=== PATIENT | female | born 1975 | race Caucasian/White ===

== ENCOUNTER 2023-04-13 01:59 | Emergency (ER) | payer MEDICAID, SELFPAY ==
[2023-04-13 01:59] VITALS: BP 108/74; PULSE 106; RESP 16; TEMP 36.6; O2SAT 95; BMI 34.7
--- NOTE | 2023-04-13 02:01 | ECG_ITS ---
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
[2023-04-13 02:32] LABS: Basophils Percent Auto 0.4 % (0.2-2.0); Eosinophils Absolute Auto 0.1 10^3/uL (0.0-0.7); Eosinophils Percent Auto 1.3 % (0.9-7.0); Hematocrit 36.8 % (36.0-48.0); Hemoglobin 12.6 g/dL (12.0-16.0); Immature Granulocytes Abs Auto 0.02 10^3/uL (0.00-0.03); Immature Granulocytes Pct Auto 0.3 % (0.0-0.5); Lymphocytes Absolute Auto 2.1 10^3/uL (1.2-3.8); Lymphocytes Percent Auto 30.8 % (20.5-60.0); Mean Corpuscular HGB Conc 34.2 g/dL (29.9-35.2); Mean Corpuscular Hemoglobin 33.7 pg (26.7-34.0); Mean Corpuscular Volume 98.4 fL (81.0-99.0); Mean Platelet Volume 10.7 fL (9.5-13.5); Monocytes Absolute Auto 0.6 10^3/uL (0.3-0.8); Monocytes Percent Auto 8.8 % (1.7-12.0); Neutrophils Percent Auto 58.4 % (43.0-75.0); Platelet Count 240 10^3/uL (150-450); Red Blood Count 3.74 10^6/uL (4.20-5.40); Red Cell Distribution Width 11.8 % (11.0-15.0); White Blood Count 6.8 10^3/uL (4.0-11.0)
[2023-04-13 02:36] LABS: Bilirubin Urine NEGATIVE (NEGATIVE); Blood Urine NEGATIVE (NEGATIVE); Color Urine YELLOW (YELLOW); Glucose Urine UA NEGATIVE (NEGATIVE); Ketones Urine TRACE mg/dL (NEGATIVE); Leukocyte Esterase Urine SMALL (NEGATIVE); Nitrite Urine NEGATIVE (NEGATIVE); Protein Urine NEGATIVE (NEG/TRACE); Specific Gravity Urine >=1.030 (1.005-1.025); Urobilinogen Urine 0.2 EU/dL (0.2-1.0)
[2023-04-13 02:41] LABS: Bacteria Urine MODERATE #/HPF (NONE SEEN); Clarity Urine SLIGHTLY CLOUDY (CLEAR); Mucus Urine NONE SEEN (NONE SEEN); RBC Urine 0-2 #/HPF (0-2); Squamous Epithelial Cell Urine FEW #/LPF (NONE/RARE)
[2023-04-13 02:42] LABS: Cast Seen? NONE SEEN #/LPF (NONE SEEN); Crystals Seen? None Seen #/HPF (None Seen); Urine Culture Indicated YES
[2023-04-13 02:45] LABS: Cannabinoid Screen Urine POSITIVE (NEGATIVE)
[2023-04-13 02:46] LABS: Amphetamine Screen Urine NEGATIVE (NEGATIVE); Barbiturates Screen Urine NEGATIVE (NEGATIVE); Benzodiazepines Screen Urine POSITIVE (NEGATIVE); Buprenorphine Screen Urine NEGATIVE (NEGATIVE); Cocaine Screen Urine POSITIVE (NEGATIVE); Methadone Screen Urine NEGATIVE (NEGATIVE); Methamphetamines Screen Urine NEGATIVE (NEGATIVE); Opiate Screen Urine NEGATIVE (NEGATIVE); Oxycodone Screen Urine NEGATIVE (NEGATIVE); Phencyclidine Screen Urine NEGATIVE (NEGATIVE); Tricyclic Antidepressant Urine POSITIVE (NEGATIVE)
[2023-04-13] MEDS: ONDANSETRON 4 MG RAPDIS TABLET SL (02:47)
[2023-04-13] MEDS: IBUPROFEN 600 MG TABLET PO (02:47)
[2023-04-13 02:49] LABS: Acetaminophen <2.0 ug/mL (10.0-30.0); Alanine Aminotransferase 45 U/L (14-59); Albumin Globulin Ratio 1.1; Albumin Level 3.9 g/dL (3.4-5.0); Alkaline Phosphatase 62 U/L (46-116); Anion Gap 13.4; Aspartate Amino Transferase 35 U/L (15-37); BUN Creatinine Ratio 12.6; Bilirubin Total 0.6 mg/dL (0.2-1.0); Calcium 8.8 mg/dL (8.5-10.1); Carbon Dioxide 27.1 mmol/L (21.0-32.0); Chloride 103 mmol/L (98-107); Estimated GFR (African America >60 (>=60); Estimated GFR (Non-African Ame 52 (>=60); Globulin 3.4 g/dL; Glucose 162 mg/dL (74-106); Potassium 3.5 mmol/L (3.5-5.1); Salicylate <2.8 mg/dL (<=19.9); Sodium 140 mmol/L (136-145); Total Protein 7.3 g/dL (6.4-8.2)
[2023-04-13 02:59] LABS: Ethanol <3 mg/dL
--- NOTE | 2023-04-13 03:03 | PC.NURSE ---
patient arrives via EMS from her friends home. states she has been feeling suicidal and depressed all day and cut her wrist this morning in an attempt to end her life. was seen at [facility] and had stitches but states they did not offer help with her suicidal ideation and she was discharged. states this evening she still felt suicidal and was expressing this to her friend who suggested she call EMS and request to come to this ER instead. pt states she has psych history with depression, anxiety, ADHD, suicide attempts with most recent last fall, and history of psych hospitalizations. states this morning prior to harming her self she used cocaine and had been clean from drugs for years and was disappointed in herself and that is when she decided to attempt to end her life. states before this morning she had just been having a hard time with life but is vague on any specific triggers. states she just needs some help because she remains suicidal at this time.
[2023-04-13 03:31] LABS: HCG Qualitative Urine* NEGATIVE (NEGATIVE)
--- NOTE | 2023-04-13 03:31 | ED.PSYCH1 ---
HPI - Psych General Chief Complaint: Psychiatric Symptoms Stated Complaint: MENTAL Time Seen by Provider: 04/13/23 02:00 Mode of arrival: ambulance History of Present Illness HPI Narrative: This 47-year-old female with history of anxiety, depression and substance abuse is brought to the emergency department by EMS. The patient admits to suicidal ideation. She states that she has a history of using cocaine in the past but has been clean from any cocaine use for 8 years. She uses cocaine yesterday morning and became very depressed after that and cut her left wrist. She is tearful. She states that she did this because of life . She has attempted suicide in the past with lacerations of her wrist. She was seen at [facility] and evaluated, her wrist was sutured and she was deemed safe for discharge. She requested to come to this hospital by EMS because she did not feel that they address her needs of suicidality. She denies that she has overdosed on any medications. She does take Wellbutrin. She denies any additional complaints at that time but does state that she is nauseated and has a headache. She is tearful but cooperative and forthcoming. She has been admitted psychiatrically in the past. MD complaint: suicidal ideation and feels depressed Related Data Home Medications Medication Instructions Recorded Confirmed amlodipine 2.5 mg tablet 2.5 mg PO DAILY 04/13/23 04/13/23 atorvastatin 10 mg tablet (Lipitor) 30 mg PO DAILY 04/13/23 04/13/23 bupropion HCl 200 mg tablet,12 hr 200 mg PO DAILY 04/13/23 04/13/23 sustained-release clonazepam 1 mg tablet 1 mg PO TID 04/13/23 04/13/23 doxepin 25 mg capsule 25 mg PO DAILY 04/13/23 04/13/23 gabapentin 400 mg capsule 200 mg PO BID 04/13/23 04/13/23 levothyroxine 75 mcg tablet 75 mcg PO DAILY 04/13/23 04/13/23 lisdexamfetamine 30 mg capsule 30 mg PO DAILY 04/13/23 04/13/23 (Vyvanse) mirtazapine 30 mg tablet (Remeron) 30 mg PO DAILY 04/13/23 04/13/23 Allergies Allergy/AdvReac Type Severity Reaction Status Date / Time buspirone [From BuSpar] Allergy Verified 04/13/23 02:03 hydroxyzine [From Vistaril] Allergy Verified 04/13/23 02:03 tramadol Allergy Verified 04/13/23 02:03 SSRIs Allergy Uncoded 04/13/23 02:03 Review of Systems ROS Status of ROS 10 or more systems reviewed and unremarkable except as noted in history and below [facility] Social History Smoking status: Never smoker Exam Narrative Exam Narrative: Nurses note and vital signs reviewed; She is afebrile, mildly tachycardic, she has normal blood pressure, she is not hypoxic with pulse ox of 95 percent on room air General: Nontoxic, tearful female resting comfortably on the stretcher, no respiratory distress, GCS 15 Skin: Warm, dry, no pallor noted. There is no rash noted. Head: Normocephalic, atraumatic Eye: Normal conjunctiva, no drainage, EOMI. PERRL Ears, Nose, Mouth, and Throat: oral mucosa is moist Cardiovascular: Regular Rate and Rhythm Respiratory: Patient is in no distress, no accessory muscle use, lungs are clear to auscultation, no wheezing, rales or rhonchi Back: non-tender, no CVA tenderness bilaterally to percussion. GI: Normal bowel sounds, no tenderness to palpation, no masses appreciated. No rebound, guarding, or rigidity noted. Musculoskeletal: There is a laceration on the left anterior wrist that has been closed with sutures. It is well approximated without any bleeding, drainage or signs of active infection. Neurological: A&O x4, normal speech Psychiatric: Cooperative, Tearful, admits to ongoing suicidal ideation, anxiety and depression Constitutional Vital Signs, click to edit/add: Last Vital Signs Temp 97.9 F 04/13/23 01:59 Pulse 106 H 04/13/23 01:59 Resp 16 04/13/23 01:59 BP 108/74 04/13/23 01:59 Pulse Ox 95 04/13/23 01:59 Course Vital Signs Vital signs: Vital Signs Temperature 97.9 F 04/13/23 01:59 Pulse Rate 106 H 04/13/23 01:59 Respiratory Rate 16 04/13/23 01:59 Blood Pressure 108/74 04/13/23 01:59 Pulse Oximetry 95 04/13/23 01:59 Temperature 97.9 F 04/13/23 01:59 Pulse Rate 106 H 04/13/23 01:59 Respiratory Rate 16 04/13/23 01:59 Blood Pressure 108/74 04/13/23 01:59 Pulse Oximetry 95 04/13/23 01:59 MDM - Psych MDM Narrative Medical decision making narrative: Is 47-year-old female with a history of anxiety and depression who is on Wellbutrin and has a history of substance abuse presents to the emergency department by EMS from her friend's apartment in [place] for evaluation of suicidal ideation. The patient states that she relapsed on cocaine yesterday and was extremely upset with herself and cut her left wrist. She was seen at [facility] and according to their records at that time denied suicidality and was discharged home with a friend. The patient presents to the emergency department stating that she did not feel that her needs were met at [facility] and she is still actively suicidal, depressed and anxious. I did review her chart from her emergency department visit earlier. Her left wrist laceration was closed effectively. There are no other cuts on her body. She denied any overdose attempts. EKG done upon arrival with a sinus tachycardia at 102 beats for minute. She is medicated for headache and nausea with ibuprofen and Zofran. Medical clearance labs for psychiatric admission and including aspirin, Tylenol, alcohol, comprehensive metabolic profile, CBC with differential and urine tox were ordered and are reviewed. Her aspirin, Tylenol and alcohol levels are negative. She has normal CBC with differential. Metabolic profile is normal. She tested positive for TCA, benzos, cocaine and marijuana on her drug tox. She is medically cleared for psychiatric evaluation. She was monitored in the emergency department with suicide precautions with a sitter outside of the room. She remained alert and hemodynamically stable. She spoke to a counselor at [facility] and has agreed to voluntary psychiatric admission. She was accepted for transfer to [address], under the service of Dr Abreu Lab Data Attestation: I reviewed the patient's lab results. ( test was negative. She has a normal CBC with differential, normal chemistries. She does not have a urinary tract infection. Her urine is positive for TCA, benzos, marijuana and cocaine. Aspirin, Tylenol and alcohol are negative) Labs: Lab Results 04/13/23 04/13/23 Range/Units 02:11 02:24 WBC 6.8 (4.0-11.0) 10^3/uL RBC 3.74 L (4.20-5.40) 10^6/uL Hgb 12.6 (12.0-16.0) g/dL Hct 36.8 (36.0-48.0) % MCV 98.4 (81.0-99.0) fL MCH 33.7 (26.7-34.0) pg MCHC 34.2 (29.9-35.2) g/dL RDW 11.8 (11.0-15.0) % Plt Count 240 (150-450) 10^3/uL MPV 10.7 (9.5-13.5) fL Neut % (Auto) 58.4 (43.0-75.0) % Lymph % (Auto) 30.8 (20.5-60.0) % [place] % (Auto) 8.8 (1.7-12.0) % Eos % (Auto) 1.3 (0.9-7.0) % Baso % (Auto) 0.4 (0.2-2.0) % Neut # (Auto) 4.0 (1.4-6.5) 10^3/uL Lymph # (Auto) 2.1 (1.2-3.8) 10^3/uL [place] # (Auto) 0.6 (0.3-0.8) 10^3/uL Eos # (Auto) 0.1 (0.0-0.7) 10^3/uL Baso # (Auto) 0.0 (0.0-0.1) 10^3/uL Abs Immat Gran (auto) 0.02 (0.00-0.03) 10^3/uL Imm/Tot Granulo (auto) 0.3 (0.0-0.5) % Sodium 140 (136-145) mmol/L Potassium 3.5 (3.5-5.1) mmol/L Chloride 103 (98-107) mmol/L Carbon Dioxide 27.1 (21.0-32.0) mmol/L Anion Gap 13.4 BUN 14.0 (7.0-18.0) mg/dL Creatinine 1.11 H (0.55-1.02) mg/dL Est GFR ( Amer) >60 (>=60) Est GFR (Non-Af Amer) 52 L (>=60) BUN/Creatinine Ratio 12.6 Glucose 162 H (74-106) mg/dL Calcium 8.8 (8.5-10.1) mg/dL Total Bilirubin 0.6 (0.2-1.0) mg/dL AST 35 (15-37) U/L ALT 45 (14-59) U/L Alkaline Phosphatase 62 (46-116) U/L Total Protein 7.3 (6.4-8.2) g/dL Albumin 3.9 (3.4-5.0) g/dL Globulin 3.4 g/dL Albumin/Globulin Ratio 1.1 Urine Color Yellow (YELLOW) Urine Clarity Slightly cloudy A (CLEAR) Urine pH 6.0 (5.0-9.0) Ur Specific [place] >=1.030 A (1.005-1.025) Urine Protein Negative (NEG/TRACE) mg/dL Urine Glucose (UA) Negative (NEGATIVE) mg/dL Urine Ketones Trace A (NEGATIVE) mg/dL Urine Occult Blood Negative (NEGATIVE) Urine Nitrite Negative (NEGATIVE) Urine Bilirubin Negative (NEGATIVE) Urine Urobilinogen 0.2 (0.2-1.0) EU/dL Ur Leukocyte Esterase Small A (NEGATIVE) Urine RBC 0-2 (0-2) #/HPF Urine WBC 5-10 A (NONE SEEN) #/HPF Ur Squamous Epith Cells Few A (NONE/RARE) #/LPF Urine Crystals None seen (None Seen) #/HPF Urine Bacteria Moderate A (NONE SEEN) #/HPF Urine Casts None seen (NONE SEEN) #/LPF Urine Mucus None seen (NONE SEEN) Ur Culture Indicated? Yes Salicylates <2.8 (<=19.9) mg/dL Urine Opiates Screen Negative (NEGATIVE) Ur Buprenorphine Scrn Negative (NEGATIVE) Ur Oxycodone Screen Negative (NEGATIVE) Urine Methadone Screen Negative (NEGATIVE) Ur Propoxyphene Screen Negative (NEGATIVE) Acetaminophen <2.0 L (10.0-30.0) ug/mL Ur Barbiturates Screen Negative (NEGATIVE) U Tricyclic Antidepress Positive A (NEGATIVE) Ur Phencyclidine Scrn Negative (NEGATIVE) Ur Amphetamines Screen Negative (NEGATIVE) U Methamphetamines Scrn Negative (NEGATIVE) U Benzodiazepines Scrn Positive A (NEGATIVE) Urine Cocaine Screen Positive A (NEGATIVE) U Cannabinoids Screen Positive A (NEGATIVE) Ethanol Quant <3 mg/dL ECG Data Attestation: I personally reviewed and interpreted this ECG as follows: (Sinus tachycardia at 102bpm, normal axis, normal intervals, no acute ST segment elevation or T-wave inversion) Discharge Plan Discharge Chief Complaint: Psychiatric Symptoms Clinical Impression: Substance abuse, Suicidal ideation, Depression Patient Disposition: [facility]
[2023-04-13 05:27] VITALS: BP 110/70; PULSE 80; RESP 12; O2SAT 96
== END 2023-04-13 05:52 ==
PROVIDERS: Emergency Provider Emergency Medicine
DX: F32.A Depression, unspecified (principal); R45.851 Suicidal ideations; R11.0 Nausea; R51.9 Headache, unspecified; F14.90 Cocaine use, unspecified, uncomplicated; F41.9 Anxiety disorder, unspecified
CPT/HCPCS: 36415; 80053; 80179; 80307; 80320; 80329; 81001; 84703; 85025; 87086; 93005; 99285

== ENCOUNTER 2023-04-22 22:36 | Emergency (ER) | payer MEDICAID, SELFPAY ==
[2023-04-22 22:37] VITALS: BP 100/60; PULSE 102; RESP 16; TEMP 36.8; O2SAT 97; BMI 34.8
--- NOTE | 2023-04-22 22:44 | ED_ITS ---
HPI - General Adult General Chief complaint: Psychiatric Symptoms Stated complaint: SUICIDAL Time Seen by Provider: 04/22/23 22:44 History of Present Illness HPI narrative: She presents to emergency department complaining of suicidal ideation. She does brought in via EMS. Patient states she was discharged from [facility] on the 16th of this month, she feels like to let her out too soon. She is thinking that she would either cut herself or overdose on medications.Asians had previous hospitalizations. She's had previous suicide attempts. She is also complaining of left wrist pain. She had a self-inflicted laceration to the left wrist from the 12th which was sutured. Sutures need to be removed in 2 days. Patient states she's noted erythema, and swelling to the area. She took Motrin earlier without any relief. Patient denies any fever, or paresthesias. Related Data Home Medications Medication Instructions Recorded Confirmed amlodipine 2.5 mg tablet 2.5 mg PO DAILY 04/13/23 04/13/23 atorvastatin 10 mg tablet (Lipitor) 30 mg PO DAILY 04/13/23 04/13/23 bupropion HCl 200 mg tablet,12 hr 200 mg PO DAILY 04/13/23 04/13/23 sustained-release clonazepam 1 mg tablet 1 mg PO TID 04/13/23 04/13/23 doxepin 25 mg capsule 25 mg PO DAILY 04/13/23 04/13/23 gabapentin 400 mg capsule 200 mg PO BID 04/13/23 04/13/23 levothyroxine 75 mcg tablet 75 mcg PO DAILY 04/13/23 04/13/23 lisdexamfetamine 30 mg capsule 30 mg PO DAILY 04/13/23 04/13/23 (Vyvanse) mirtazapine 30 mg tablet (Remeron) 30 mg PO DAILY 04/13/23 04/13/23 Allergies Allergy/AdvReac Type Severity Reaction Status Date / Time buspirone [From BuSpar] Allergy Verified 04/13/23 02:03 hydroxyzine [From Vistaril] Allergy Verified 04/13/23 02:03 metronidazole [From Flagyl] Allergy Verified 04/23/23 02:42 tramadol Allergy Verified 04/13/23 02:03 SSRIs Allergy Uncoded 04/13/23 02:03 Review of Systems ROS Status of ROS 10 or more systems reviewed and unremarkable except as noted in history and below [facility] Social History Smoking status: Never smoker Exam Narrative Exam Narrative: Nurses notes and vital signs reviewed and patient is not hypoxic. General: Nontoxic, Well-appearing and in no apparent distress. Skin: Warm, dry, no pallor noted. No Rash Head: Normocephalic, atraumatic. Neck: Supple, non-tender. Eye: Pupils are equal, round and EOMI. No scleral icterus. Ears, Nose, Mouth, and Throat: TM clear, no posterior oropharynx erythema or nasal mucosal hypertrophy, uvula is mid-line Oral mucosa is moist Cardiovascular: Regular Rate and Rhythm without murmur, gallop or rub. Respiratory: No accessory muscle use or respiratory distress. Lungs are clear to auscultation, no wheezing, rales or rhonchi Chest Wall: no tenderness Back: No midline thoracic or lumbar vertebral tenderness. No CVA tenderness Musculoskeletal: Left ventral wrist with a 5 cm laceration with sutures in place. There is surrounding erythema and induration without any fluctuance. The erythema is 1 cm across. There is no dehiscence noted. Full ROM, no calf or popliteal tenderness, no lower extremity edema/swelling GI: Abdomen is soft, non-distended. Normal bowel sounds. No masses appreciated. No tenderness to palpation. No rebound, guarding, or rigidity noted. Neurological: A&O x4. No cranial nerve dysfunction observed. No truncal ataxia. Moves all extremities. Sensation intact. Psychiatric: Cooperative and interactive. Flat affect, active suicidal ideation. Constitutional Vital Signs, click to edit/add: Last Vital Signs Temp 98.3 F 04/22/23 22:37 Pulse 102 H 04/22/23 22:37 Resp 16 04/22/23 22:37 BP 93/50 L 04/23/23 01:47 Pulse Ox 97 04/22/23 22:37 O2 Del Method Room Air 04/22/23 22:37 Course Vital Signs Vital signs: Vital Signs Temperature 98.3 F 04/22/23 22:37 Pulse Rate 102 H 04/22/23 22:37 Respiratory Rate 16 04/22/23 22:37 Blood Pressure 100/60 04/22/23 22:37 Pulse Oximetry 97 04/22/23 22:37 Oxygen Delivery Method Room Air 04/22/23 22:37 Temperature 98.3 F 04/22/23 22:37 Pulse Rate 102 H 04/22/23 22:37 Respiratory Rate 16 04/22/23 22:37 Blood Pressure 93/50 L 04/23/23 01:47 Pulse Oximetry 97 04/22/23 22:37 Oxygen Delivery Method Room Air 04/22/23 22:37 Medical Decision Making MDM Narrative Medical decision making narrative: Patient is nontoxic, no signs of sepsis. She is medically clear for psychiatric evaluation and treatment. Patient was given 1 g of Rocephin IM. She was given Toradol for pain. Wound was cleansed and mupirocin was applied. She was given 2 tablets of Bactrim DS. Patient is given a prescription for Bactrim, Keflex and she is to continue the mupirocin 3 times a day with wound care. Follow up with primary care doctor. Sutures need to be removed on 04/24/23. Patient was accepted to [address] care [address] Cisneros. Patient was given 2 tablets of Bactrim DS in the emergency department she tolerated them well and did not have any issues with ALLERGIES. After the patient was handed the prescription she stated that she was ALLERGIC to Bactrim. Patient is advised she was given 2 tablets and she stated only did not make me feel dizzy like he normally does. She's never had an actual ALLERGIC reaction to it. Lab Data Labs: Lab Results 04/22/23 04/22/23 Range/Units 23:00 23:10 WBC 4.8 (4.0-11.0) 10^3/uL RBC 3.64 L (4.20-5.40) 10^6/uL Hgb 12.0 (12.0-16.0) g/dL Hct 35.2 L (36.0-48.0) % MCV 96.7 (81.0-99.0) fL MCH 33.0 (26.7-34.0) pg MCHC 34.1 (29.9-35.2) g/dL RDW 11.3 (11.0-15.0) % Plt Count 256 (150-450) 10^3/uL MPV 10.7 (9.5-13.5) fL Neut % (Auto) 60.2 (43.0-75.0) % Lymph % (Auto) 27.9 (20.5-60.0) % [place] % (Auto) 8.0 (1.7-12.0) % Eos % (Auto) 2.9 (0.9-7.0) % Baso % (Auto) 0.4 (0.2-2.0) % Neut # (Auto) 2.9 (1.4-6.5) 10^3/uL Lymph # (Auto) 1.3 (1.2-3.8) 10^3/uL [place] # (Auto) 0.4 (0.3-0.8) 10^3/uL Eos # (Auto) 0.1 (0.0-0.7) 10^3/uL Baso # (Auto) 0.0 (0.0-0.1) 10^3/uL Abs Immat Gran (auto) 0.03 (0.00-0.03) 10^3/uL Imm/Tot Granulo (auto) 0.6 H (0.0-0.5) % Sodium 142 (136-145) mmol/L Potassium 3.5 (3.5-5.1) mmol/L Chloride 103 (98-107) mmol/L Carbon Dioxide 30.2 (21.0-32.0) mmol/L Anion Gap 12.3 BUN 9.0 (7.0-18.0) mg/dL Creatinine 0.98 (0.55-1.02) mg/dL Est GFR ( Amer) >60 (>=60) Est GFR (Non-Af Amer) >60 (>=60) BUN/Creatinine Ratio 9.2 Glucose 131 H (74-106) mg/dL Calcium 8.2 L (8.5-10.1) mg/dL Total Bilirubin 0.2 (0.2-1.0) mg/dL AST 25 (15-37) U/L ALT 28 (14-59) U/L Alkaline Phosphatase 63 (46-116) U/L Total Protein 7.0 (6.4-8.2) g/dL Albumin 3.4 (3.4-5.0) g/dL Globulin 3.6 g/dL Albumin/Globulin Ratio 0.9 Urine Color Yellow (YELLOW) Urine Clarity Clear (CLEAR) Urine pH 7.0 (5.0-9.0) Ur Specific [place] 1.015 (1.005-1.025) Urine Protein Trace (NEG/TRACE) mg/dL Urine Glucose (UA) Negative (NEGATIVE) mg/dL Urine Ketones 15 A (NEGATIVE) mg/dL Urine Occult Blood Negative (NEGATIVE) Urine Nitrite Negative (NEGATIVE) Urine Bilirubin Negative (NEGATIVE) Urine Urobilinogen 2.0 A (0.2-1.0) EU/dL Ur Leukocyte Esterase Trace A (NEGATIVE) Urine RBC 0-2 (0-2) #/HPF Urine WBC 2-5 A (NONE SEEN) #/HPF Ur Squamous Epith Cells Moderate A (NONE/RARE) #/LPF Urine Crystals None seen (None Seen) #/HPF Urine Bacteria Trace A (NONE SEEN) #/HPF Urine Casts None seen (NONE SEEN) #/LPF Urine Mucus Small A (NONE SEEN) Ur Culture Indicated? No Salicylates <2.8 (<=19.9) mg/dL Urine Opiates Screen Negative (NEGATIVE) Ur Buprenorphine Scrn Negative (NEGATIVE) Ur Oxycodone Screen Negative (NEGATIVE) Urine Methadone Screen Negative (NEGATIVE) Ur Propoxyphene Screen Negative (NEGATIVE) Acetaminophen <2.0 L (10.0-30.0) ug/mL Ur Barbiturates Screen Negative (NEGATIVE) U Tricyclic Antidepress Positive A (NEGATIVE) Ur Phencyclidine Scrn Negative (NEGATIVE) Ur Amphetamines Screen Negative (NEGATIVE) U Methamphetamines Scrn Negative (NEGATIVE) U Benzodiazepines Scrn Negative (NEGATIVE) Urine Cocaine Screen Positive A (NEGATIVE) U Cannabinoids Screen Positive A (NEGATIVE) Ethanol Quant <3 mg/dL Discharge Plan Discharge Chief Complaint: Psychiatric Symptoms Clinical Impression: Wound infection, Substance abuse, Suicidal ideation, Depression Patient Disposition: [facility] Time of Disposition Decision: 02:00 Discharge Location: [facility] Discharge location: dr cisneros Condition: Good Mode of Transportation: Mental Health Car Discharge Date/Time: 04/23/23 02:35
--- NOTE | 2023-04-22 23:14 | ECG_ITS ---
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
--- NOTE | 2023-04-22 23:27 | PC.NURSE ---
Hotline called after patient was admitted into ER. Talked with Rashad. She states it would be approx. an hour before someone could get to her.
[2023-04-22 23:28] LABS: Basophils Percent Auto 0.4 % (0.2-2.0); Eosinophils Absolute Auto 0.1 10^3/uL (0.0-0.7); Eosinophils Percent Auto 2.9 % (0.9-7.0); Hematocrit 35.2 % (36.0-48.0); Immature Granulocytes Abs Auto 0.03 10^3/uL (0.00-0.03); Immature Granulocytes Pct Auto 0.6 % (0.0-0.5); Lymphocytes Absolute Auto 1.3 10^3/uL (1.2-3.8); Lymphocytes Percent Auto 27.9 % (20.5-60.0); Mean Corpuscular HGB Conc 34.1 g/dL (29.9-35.2); Mean Corpuscular Volume 96.7 fL (81.0-99.0); Mean Platelet Volume 10.7 fL (9.5-13.5); Monocytes Absolute Auto 0.4 10^3/uL (0.3-0.8); Neutrophils Absolute Auto 2.9 10^3/uL (1.4-6.5); Neutrophils Percent Auto 60.2 % (43.0-75.0); Platelet Count 256 10^3/uL (150-450); Red Blood Count 3.64 10^6/uL (4.20-5.40); Red Cell Distribution Width 11.3 % (11.0-15.0); White Blood Count 4.8 10^3/uL (4.0-11.0)
[2023-04-22 23:29] LABS: Bilirubin Urine NEGATIVE (NEGATIVE); Blood Urine NEGATIVE (NEGATIVE); Clarity Urine CLEAR (CLEAR); Color Urine YELLOW (YELLOW); Glucose Urine UA NEGATIVE (NEGATIVE); Ketones Urine 15 mg/dL (NEGATIVE); Leukocyte Esterase Urine TRACE (NEGATIVE); Nitrite Urine NEGATIVE (NEGATIVE); Protein Urine TRACE mg/dL (NEG/TRACE); Specific Gravity Urine 1.015 (1.005-1.025)
--- NOTE | 2023-04-22 23:29 | PC.NURSE ---
patient called ems for suicidal ideation. patient states she was admitted to [address] [place] [address] on april 13 after cutting her wrist in attempt to end life. pedro states she has no support system besides a couple of friends in [place]. she does not drive and cannot get around on her own. patient states she has been feeling more and more depressed lately, prior to her suicidal attempt on the patient was off her antidepressants for approx 1 week. patient states since going to [address] [place] [address] she has been taking her medicaitons at prescribed. states physician increased welbutrin to 450mg from 200mg daily.patient states she was feeling better at the time of release and shortly after her suicidal thoughts have returned. patient has sutures still intact in left wrist. wound appears to be infected. sutures are not all visible due to swelling of surrounding area. yellow drainage and redness can be seen. patient states she has been keeping sutures clean and dry.
[2023-04-22 23:30] LABS: Urine Microscopic Indicated YES
[2023-04-22 23:35] LABS: Bacteria Urine TRACE #/HPF (NONE SEEN); Cast Seen? NONE SEEN #/LPF (NONE SEEN); Crystals Seen? None Seen #/HPF (None Seen); Mucus Urine SMALL (NONE SEEN); RBC Urine 0-2 #/HPF (0-2); Squamous Epithelial Cell Urine MODERATE #/LPF (NONE/RARE); Urine Culture Indicated NO
[2023-04-22 23:40] LABS: Amphetamine Screen Urine NEGATIVE (NEGATIVE); Barbiturates Screen Urine NEGATIVE (NEGATIVE); Benzodiazepines Screen Urine NEGATIVE (NEGATIVE); Buprenorphine Screen Urine NEGATIVE (NEGATIVE); Cannabinoid Screen Urine POSITIVE (NEGATIVE); Cocaine Screen Urine POSITIVE (NEGATIVE); Methadone Screen Urine NEGATIVE (NEGATIVE); Methamphetamines Screen Urine NEGATIVE (NEGATIVE); Opiate Screen Urine NEGATIVE (NEGATIVE); Oxycodone Screen Urine NEGATIVE (NEGATIVE); Phencyclidine Screen Urine NEGATIVE (NEGATIVE); Tricyclic Antidepressant Urine POSITIVE (NEGATIVE)
[2023-04-22 23:43] LABS: Alanine Aminotransferase 28 U/L (14-59); Albumin Globulin Ratio 0.9; Albumin Level 3.4 g/dL (3.4-5.0); Alkaline Phosphatase 63 U/L (46-116); Anion Gap 12.3; Aspartate Amino Transferase 25 U/L (15-37); BUN Creatinine Ratio 9.2; Bilirubin Total 0.2 mg/dL (0.2-1.0); Calcium 8.2 mg/dL (8.5-10.1); Carbon Dioxide 30.2 mmol/L (21.0-32.0); Chloride 103 mmol/L (98-107); Estimated GFR (African America >60 (>=60); Estimated GFR (Non-African Ame >60 (>=60); Globulin 3.6 g/dL; Glucose 131 mg/dL (74-106); Potassium 3.5 mmol/L (3.5-5.1); Salicylate <2.8 mg/dL (<=19.9); Sodium 142 mmol/L (136-145)
[2023-04-22 23:46] LABS: Acetaminophen <2.0 ug/mL (10.0-30.0); Ethanol <3 mg/dL
[2023-04-22 23:48] VITALS: BP 101/66
[2023-04-22] MEDS: SULFAMETHOXAZOLE/TRIMETHOPRIM 800-160 MG TABLET 2 TAB PO (23:49)
[2023-04-23] MEDS: KETOROLAC TROMETHAMINE 60 MG/2 ML VIAL IM
--- NOTE | 2023-04-23 00:07 | PC.NURSE ---
sitter at bedside. patient eating burger and chips. denies needs at this time. patient was medicated with antibiotic and pain medication for wrist wound.patient is calm and cooperative
[2023-04-23] MEDS: MUPIROCIN 2% OINTMENT 22 GRAM TUBE 22 APPLIC (00:32)
[2023-04-23 00:53] VITALS: BP 92/55
[2023-04-23 01:47] VITALS: BP 93/50
== END 2023-04-23 02:35 ==
PROVIDERS: Emergency Provider Emergency Medicine
DX: R45.851 Suicidal ideations (principal); F32.A Depression, unspecified; F19.10 Other psychoactive substance abuse, uncomplicated; L08.9 Local infection of the skin and subcutaneous tissue, unspecified; Z79.899 Other long term (current) drug therapy; Z79.890 Hormone replacement therapy
CPT/HCPCS: 36415; 80053; 80179; 80307; 80320; 80329; 81003; 81015; 85025; 93005; 96372; 96374; 99285

== ENCOUNTER 2023-08-23 17:48 | Emergency (ER) | payer MEDICAID, SELFPAY ==
--- NOTE | 2023-08-23 17:50 | ECG_ITS ---
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
[2023-08-23 17:55] VITALS: BP 127/84; PULSE 89; RESP 20; TEMP 36.6; O2SAT 97; BMI 40.2
[2023-08-23 18:13] LABS: Basophils Percent Auto 0.7 % (0.2-2.0); Eosinophils Absolute Auto 0.2 10^3/uL (0.0-0.7); Eosinophils Percent Auto 3.2 % (0.9-7.0); Hematocrit 37.1 % (36.0-48.0); Hemoglobin 12.3 g/dL (12.0-16.0); Immature Granulocytes Abs Auto 0.03 10^3/uL (0.00-0.03); Immature Granulocytes Pct Auto 0.5 % (0.0-0.5); Lymphocytes Absolute Auto 1.5 10^3/uL (1.2-3.8); Lymphocytes Percent Auto 25.8 % (20.5-60.0); Mean Corpuscular HGB Conc 33.2 g/dL (29.9-35.2); Mean Corpuscular Volume 96.6 fL (81.0-99.0); Mean Platelet Volume 10.8 fL (9.5-13.5); Monocytes Absolute Auto 0.5 10^3/uL (0.3-0.8); Neutrophils Absolute Auto 3.5 10^3/uL (1.4-6.5); Neutrophils Percent Auto 61.8 % (43.0-75.0); Platelet Count 195 10^3/uL (150-450); Red Blood Count 3.84 10^6/uL (4.20-5.40); Red Cell Distribution Width 11.7 % (11.0-15.0); White Blood Count 5.6 10^3/uL (4.0-11.0)
[2023-08-23 18:20] LABS: HCG Qualitative NEGATIVE (NEGATIVE)
[2023-08-23 18:27] LABS: Alanine Aminotransferase 125 U/L (14-59); Albumin Level 3.6 g/dL (3.4-5.0); Alkaline Phosphatase 64 U/L (46-116); Anion Gap 10.1; Aspartate Amino Transferase 92 U/L (15-37); BUN Creatinine Ratio 6.8; Bilirubin Total 0.2 mg/dL (0.2-1.0); Calcium 8.9 mg/dL (8.5-10.1); Carbon Dioxide 29.6 mmol/L (21.0-32.0); Chloride 107 mmol/L (98-107); Estimated GFR (African America >60 (>=60); Estimated GFR (Non-African Ame 57 (>=60); Ethanol <3 mg/dL; Globulin 3.7 g/dL; Glucose 92 mg/dL (74-106); Potassium 3.7 mmol/L (3.5-5.1); Salicylate <2.8 mg/dL (<=19.9); Sodium 143 mmol/L (136-145); Total Protein 7.3 g/dL (6.4-8.2)
[2023-08-23 18:28] LABS: Acetaminophen <2.0 ug/mL (10.0-30.0)
[2023-08-23 18:45] LABS: Bilirubin Urine NEGATIVE (NEGATIVE); Blood Urine NEGATIVE (NEGATIVE); Clarity Urine CLEAR (CLEAR); Color Urine LT. YELLOW (YELLOW); Glucose Urine UA NEGATIVE (NEGATIVE); Ketones Urine NEGATIVE (NEGATIVE); Leukocyte Esterase Urine SMALL (NEGATIVE); Nitrite Urine NEGATIVE (NEGATIVE); Protein Urine NEGATIVE (NEG/TRACE); Urine Microscopic Indicated YES; Urobilinogen Urine 0.2 EU/dL (0.2-1.0)
[2023-08-23 18:56] LABS: Bacteria Urine TRACE #/HPF (NONE SEEN); Cast Seen? NONE SEEN #/LPF (NONE SEEN); Crystals Seen? None Seen #/HPF (None Seen); Mucus Urine SMALL (NONE SEEN); RBC Urine 0-2 #/HPF (0-2); Squamous Epithelial Cell Urine FEW #/LPF (NONE/RARE); Urine Culture Indicated YES
[2023-08-23 18:57] LABS: Amphetamine Screen Urine NEGATIVE (NEGATIVE); Barbiturates Screen Urine NEGATIVE (NEGATIVE); Benzodiazepines Screen Urine POSITIVE (NEGATIVE); Buprenorphine Screen Urine NEGATIVE (NEGATIVE); Cannabinoid Screen Urine POSITIVE (NEGATIVE); Cocaine Screen Urine POSITIVE (NEGATIVE); Methadone Screen Urine NEGATIVE (NEGATIVE); Methamphetamines Screen Urine NEGATIVE (NEGATIVE); Opiate Screen Urine NEGATIVE (NEGATIVE); Oxycodone Screen Urine NEGATIVE (NEGATIVE); Phencyclidine Screen Urine NEGATIVE (NEGATIVE); Tricyclic Antidepressant Urine POSITIVE (NEGATIVE)
--- NOTE | 2023-08-23 19:37 | ED.PSYCH1 ---
HPI - Psych General Chief Complaint: Psychiatric Symptoms Stated Complaint: Suicide Time Seen by Provider: 08/23/23 17:50 Source: Reports patient Mode of arrival: walk-in Limitations: Reports no limitations Related Data Home Medications Medication Instructions Recorded Confirmed amlodipine 2.5 mg tablet 2.5 mg PO DAILY 04/13/23 08/23/23 atorvastatin 10 mg tablet (Lipitor) 30 mg PO DAILY 04/13/23 08/23/23 bupropion HCl 200 mg tablet,12 hr 300 mg PO DAILY 04/13/23 08/23/23 sustained-release doxepin 25 mg capsule 25 mg PO DAILY 04/13/23 08/23/23 levothyroxine 75 mcg tablet 75 mcg PO DAILY 04/13/23 08/23/23 lisdexamfetamine 30 mg capsule 30 mg PO DAILY 04/13/23 08/23/23 (Vyvanse) alprazolam 1 mg tablet 1 mg PO BID 08/23/23 08/23/23 Allergies Allergy/AdvReac Type Severity Reaction Status Date / Time buspirone [From BuSpar] Allergy Verified 04/13/23 02:03 hydroxyzine [From Vistaril] Allergy Verified 04/13/23 02:03 metronidazole [From Flagyl] Allergy Verified 04/23/23 02:42 tramadol Allergy Verified 04/13/23 02:03 sulfamethoxazole AdvReac Severe Diarrhea Verified 08/23/23 18:00 [From Bactrim] trimethoprim [From Bactrim] AdvReac Severe Diarrhea Verified 08/23/23 18:00 SSRIs Allergy Uncoded 04/13/23 02:03 PFSH PFSH Social History Smoking status: Never smoker Exam Constitutional Vital Signs, click to edit/add: Last Vital Signs Temp 98 F 08/23/23 21:46 Pulse 89 08/23/23 21:46 Resp 16 08/23/23 21:46 BP 117/70 08/23/23 21:46 Pulse Ox 96 08/23/23 21:46 O2 Del Method Room Air 08/23/23 21:46 Course Vital Signs Vital signs: Vital Signs Temperature 97.9 F 08/23/23 17:55 Pulse Rate 89 08/23/23 17:55 Respiratory Rate 20 08/23/23 17:55 Blood Pressure 127/84 08/23/23 17:55 Pulse Oximetry 97 08/23/23 17:55 Temperature 98 F 08/23/23 21:46 Pulse Rate 89 08/23/23 21:46 Respiratory Rate 16 08/23/23 21:46 Blood Pressure 117/70 08/23/23 21:46 Pulse Oximetry 96 08/23/23 21:46 Oxygen Delivery Method Room Air 08/23/23 21:46 MDM - Psych MDM Narrative Medical decision making narrative: Patient treated for UTI with Keflex, the remainder of her labs are stable, she has multiple positive findings on her drug screen. She is calm and collected in the emergency department, cooperative with staff. She signed a voluntary admission after discussion with counseling services. She has an unremarkable exam, no evidence of trauma, stable vital signs. She is accepted to inpatient psychiatric facility. Stable at this time. Accepted to [facility] to Dr. Rollins Medical Records Attestation: I reviewed the patient's medical records. Lab Data Attestation: I reviewed the patient's lab results. Labs: Lab Results 08/23/23 08/23/23 Range/Units 18:03 18:15 WBC 5.6 (4.0-11.0) 10^3/uL RBC 3.84 L (4.20-5.40) 10^6/uL Hgb 12.3 (12.0-16.0) g/dL Hct 37.1 (36.0-48.0) % MCV 96.6 (81.0-99.0) fL MCH 32.0 (26.7-34.0) pg MCHC 33.2 (29.9-35.2) g/dL RDW 11.7 (11.0-15.0) % Plt Count 195 (150-450) 10^3/uL MPV 10.8 (9.5-13.5) fL Neut % (Auto) 61.8 (43.0-75.0) % Lymph % (Auto) 25.8 (20.5-60.0) % [place] % (Auto) 8.0 (1.7-12.0) % Eos % (Auto) 3.2 (0.9-7.0) % Baso % (Auto) 0.7 (0.2-2.0) % Neut # (Auto) 3.5 (1.4-6.5) 10^3/uL Lymph # (Auto) 1.5 (1.2-3.8) 10^3/uL [place] # (Auto) 0.5 (0.3-0.8) 10^3/uL Eos # (Auto) 0.2 (0.0-0.7) 10^3/uL Baso # (Auto) 0.0 (0.0-0.1) 10^3/uL Abs Immat Gran (auto) 0.03 (0.00-0.03) 10^3/uL Imm/Tot Granulo (auto) 0.5 (0.0-0.5) % Sodium 143 (136-145) mmol/L Potassium 3.7 (3.5-5.1) mmol/L Chloride 107 (98-107) mmol/L Carbon Dioxide 29.6 (21.0-32.0) mmol/L Anion Gap 10.1 BUN 7.0 (7.0-18.0) mg/dL Creatinine 1.03 H (0.55-1.02) mg/dL Est GFR ( Amer) >60 (>=60) Est GFR (Non-Af Amer) 57 L (>=60) BUN/Creatinine Ratio 6.8 Glucose 92 (74-106) mg/dL Calcium 8.9 (8.5-10.1) mg/dL Total Bilirubin 0.2 (0.2-1.0) mg/dL AST 92 H (15-37) U/L ALT 125 H (14-59) U/L Alkaline Phosphatase 64 (46-116) U/L Total Protein 7.3 (6.4-8.2) g/dL Albumin 3.6 (3.4-5.0) g/dL Globulin 3.7 g/dL Albumin/Globulin Ratio 1.0 Serum HCG, Qual Negative (NEGATIVE) Urine Color Lt. yellow (YELLOW) Urine Clarity Clear (CLEAR) Urine pH 6.0 (5.0-9.0) Ur Specific [place] 1.020 (1.005-1.025) Urine Protein Negative (NEG/TRACE) mg/dL Urine Glucose (UA) Negative (NEGATIVE) mg/dL Urine Ketones Negative (NEGATIVE) mg/dL Urine Occult Blood Negative (NEGATIVE) Urine Nitrite Negative (NEGATIVE) Urine Bilirubin Negative (NEGATIVE) Urine Urobilinogen 0.2 (0.2-1.0) EU/dL Ur Leukocyte Esterase Small A (NEGATIVE) Urine RBC 0-2 (0-2) #/HPF Urine WBC 10-20 A (NONE SEEN) #/HPF Ur Squamous Epith Cells Few A (NONE/RARE) #/LPF Urine Crystals None seen (None Seen) #/HPF Urine Bacteria Trace A (NONE SEEN) #/HPF Urine Casts None seen (NONE SEEN) #/LPF Urine Mucus Small A (NONE SEEN) Ur Culture Indicated? Yes Salicylates <2.8 (<=19.9) mg/dL Urine Opiates Screen Negative (NEGATIVE) Ur Buprenorphine Scrn Negative (NEGATIVE) Ur Oxycodone Screen Negative (NEGATIVE) Urine Methadone Screen Negative (NEGATIVE) Acetaminophen <2.0 L (10.0-30.0) ug/mL Ur Barbiturates Screen Negative (NEGATIVE) U Tricyclic Antidepress Positive A (NEGATIVE) Ur Phencyclidine Scrn Negative (NEGATIVE) Ur Amphetamines Screen Negative (NEGATIVE) U Methamphetamines Scrn Negative (NEGATIVE) U Benzodiazepines Scrn Positive A (NEGATIVE) Urine Cocaine Screen Positive A (NEGATIVE) U Cannabinoids Screen Positive A (NEGATIVE) Ethanol Quant <3 mg/dL ECG Data Attestation: I personally reviewed and interpreted this ECG as follows: (Sinus tachycardia at a rate of 100, no acute ST elevation or ectopy. EKG reviewed by attending physician) Discharge Plan Discharge Chief Complaint: Psychiatric Symptoms Clinical Impression: Suicidal ideation, UTI (urinary tract infection) Patient Disposition: Xfer Psychiatric Hosp Time of Disposition Decision: 21:12 Discharge Location: [facility] Stand Alone Forms: Portal Instructions Discharge Date/Time: 08/23/23 23:20
[2023-08-23] MEDS: CEPHALEXIN 500 MG CAPSULE PO (20:10)
--- NOTE | 2023-08-23 20:21 | PC.NURSE ---
Pt arrives with having some suicidal thoughts . She denies having a plan but states she has cut her wrists in the past. Pt states she is very sad as her daughter just gave to a full term infant . The whole family is upset . She states she is having a hard time keeping it together . Pt came for help before she does something she will regret.. Pt is slightly anxious and a little tearful. She is cooperative and oriented x 4.
[2023-08-23 21:46] VITALS: BP 117/70; PULSE 89; RESP 16; TEMP 36.6; O2SAT 96
[2023-08-23] MEDS: ONDANSETRON 4 MG RAPDIS TABLET SL (21:57)
== END 2023-08-23 23:20 ==
PROVIDERS: Physician Assistant; Emergency Provider Internal Medicine
DX: R45.851 Suicidal ideations (principal); N39.0 Urinary tract infection, site not specified; R82.5 Elevated urine levels of drugs, medicaments and biological substances; Z79.899 Other long term (current) drug therapy; Z79.890 Hormone replacement therapy
CPT/HCPCS: 36415; 80053; 80179; 80307; 80320; 80329; 81001; 84703; 85025; 87086; 93005; 99285

== ENCOUNTER 2023-10-09 23:11 | Emergency (ER) | payer MEDICAID, SELFPAY ==
[2023-10-09 23:12] VITALS: BP 169/106; PULSE 102; RESP 16; TEMP 36.4; O2SAT 99; BMI 36.6
--- NOTE | 2023-10-09 23:24 | ECG_ITS ---
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
--- NOTE | 2023-10-09 23:25 | ED_ITS ---
HPI - Psych General Chief Complaint: Psychiatric Symptoms Stated Complaint: other Time Seen by Provider: 10/09/23 23:16 Source: Reports patient Mode of arrival: ambulance Limitations: Reports no limitations History of Present Illness HPI Narrative: 48-year-old female presents for overdose. She states she took 800 mg of trazodone about three hours ago. She states she took it because she relapsed and used cocaine. She states she wants to go to sleep. She doesn't seem to have a physical complaints. She was transported here by paramedics. Related Data Home Medications Medication Instructions Recorded Confirmed amlodipine 2.5 mg tablet 2.5 mg PO DAILY 04/13/23 08/23/23 atorvastatin 10 mg tablet (Lipitor) 30 mg PO DAILY 04/13/23 08/23/23 bupropion HCl 200 mg tablet,12 hr 300 mg PO DAILY 04/13/23 08/23/23 sustained-release doxepin 25 mg capsule 25 mg PO DAILY 04/13/23 08/23/23 levothyroxine 75 mcg tablet 75 mcg PO DAILY 04/13/23 08/23/23 lisdexamfetamine 30 mg capsule 30 mg PO DAILY 04/13/23 08/23/23 (Vyvanse) alprazolam 1 mg tablet 1 mg PO BID 08/23/23 08/23/23 Allergies Allergy/AdvReac Type Severity Reaction Status Date / Time buspirone [From BuSpar] Allergy Verified 04/13/23 02:03 hydroxyzine [From Vistaril] Allergy Verified 04/13/23 02:03 metronidazole [From Flagyl] Allergy Verified 04/23/23 02:42 tramadol Allergy Verified 04/13/23 02:03 sulfamethoxazole AdvReac Severe Diarrhea Verified 08/23/23 18:00 [From Bactrim] trimethoprim [From Bactrim] AdvReac Severe Diarrhea Verified 08/23/23 18:00 SSRIs Allergy Uncoded 04/13/23 02:03 Review of Systems ROS Narrative A ten point review of systems is negative except as noted above. PFSH PFSH Social History Smoking status: Current every day smoker Exam Narrative Exam Narrative: Nurses note and vital signs reviewed and patient is not hypoxic. General: The patient appears well and in no apparent distress. Patient is resting comfortably on cart. Skin: Warm, dry, no pallor noted. There is no rash noted. Head: Normocephalic, atraumatic Eye: Normal conjunctiva, no drainage, EOMI. PERRL Ears, Nose, Mouth, and Throat: oral mucosa is moist. Nares patent. Cardiovascular: Regular Rate and Rhythm Respiratory: Patient is in no distress, no accessory muscle use, lungs are clear to auscultation, no wheezing, rales or rhonchi Back: non-tender GI: soft and nontender Musculoskeletal: The patient has no evidence of calf tenderness, no pitting edema, symmetrical pulses noted bilaterally Neurological: A&O x4, normal speech Psychiatric: Cooperative Constitutional Vital Signs, click to edit/add: Last Vital Signs Temp 97.6 F 10/09/23 23:12 Pulse 102 H 10/09/23 23:12 Resp 16 10/09/23 23:12 BP 169/106 H 10/09/23 23:12 Pulse Ox 99 10/09/23 23:12 O2 Del Method Room Air 10/09/23 23:12 Course Vital Signs Vital signs: Vital Signs Temperature 97.6 F 10/09/23 23:12 Pulse Rate 102 H 10/09/23 23:12 Respiratory Rate 16 10/09/23 23:12 Blood Pressure 169/106 H 10/09/23 23:12 Pulse Oximetry 99 10/09/23 23:12 Oxygen Delivery Method Room Air 10/09/23 23:12 Temperature 97.6 F 10/09/23 23:12 Pulse Rate 102 H 10/09/23 23:12 Respiratory Rate 16 10/09/23 23:12 Blood Pressure 169/106 H 10/09/23 23:12 Pulse Oximetry 99 10/09/23 23:12 Oxygen Delivery Method Room Air 10/09/23 23:12 MDM - Psych MDM Narrative Medical decision making narrative: The patient presented with the intent to harm herself. She told us that she took these pills that she will go to sleep and never wake up. She was upset with herself for using cocaine. Medical workup here is negative. She is medically cleared and is going to be admitted at [facility]. Differential Diagnosis Differential diagnosis: Likely suicidal ideation, bipolar disorder, depression, drug-induced psychotic disorder and acute anxiety Lab Data Attestation: I reviewed the patient's lab results. Labs: Lab Results 10/09/23 10/10/23 Range/Units 00:48 00:48 WBC 6.2 (4.0-11.0) 10^3/uL RBC 4.71 (4.20-5.40) 10^6/uL Hgb 15.1 (12.0-16.0) g/dL Hct 46.2 (36.0-48.0) % MCV 98.1 (81.0-99.0) fL MCH 32.1 (26.7-34.0) pg MCHC 32.7 (29.9-35.2) g/dL RDW 12.0 (11.0-15.0) % Plt Count 243 (150-450) 10^3/uL MPV 10.9 (9.5-13.5) fL Neut % (Auto) 64.2 (43.0-75.0) % Lymph % (Auto) 26.2 (20.5-60.0) % [place] % (Auto) 6.8 (1.7-12.0) % Eos % (Auto) 2.0 (0.9-7.0) % Baso % (Auto) 0.5 (0.2-2.0) % Neut # (Auto) 4.0 (1.4-6.5) 10^3/uL Lymph # (Auto) 1.6 (1.2-3.8) 10^3/uL [place] # (Auto) 0.4 (0.3-0.8) 10^3/uL Eos # (Auto) 0.1 (0.0-0.7) 10^3/uL Baso # (Auto) 0.0 (0.0-0.1) 10^3/uL Abs Immat Gran (auto) 0.02 (0.00-0.03) 10^3/uL Imm/Tot Granulo (auto) 0.3 (0.0-0.5) % Sodium 142 (136-145) mmol/L Potassium 4.3 (3.5-5.1) mmol/L Chloride 102 (98-107) mmol/L Carbon Dioxide 31.4 (21.0-32.0) mmol/L Anion Gap 12.9 BUN 9.0 (7.0-18.0) mg/dL Creatinine 1.03 H (0.55-1.02) mg/dL Est GFR ( Amer) >60 (>=60) Est GFR (Non-Af Amer) 57 L (>=60) BUN/Creatinine Ratio 8.7 Glucose 104 (74-106) mg/dL Calcium 10.2 H (8.5-10.1) mg/dL Salicylates <2.8 (<=19.9) mg/dL Acetaminophen <2.0 L (10.0-30.0) ug/mL Ethanol Quant <3 mg/dL ECG Data Attestation: I personally reviewed and interpreted this ECG as follows: (EKG on my interpretation shows sinus rhythm without acute change in a rate of 96.) Discharge Plan Discharge Chief Complaint: Psychiatric Symptoms Clinical Impression: Suicidal ideation Patient Disposition: [facility] Time of Disposition Decision: 02:28 Discharge Location: [facility] Condition: Good Mode of Transportation: Private Vehicle
--- OUTSIDE RECORDS SUMMARY | 2023-10-10 00:09 | XMS_ITS | CCD ---
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 Name Role Phone BENJI BURKS Unavailable Unavailable BENJI BURKS Unavailable Unavailable KELLI GUSMAN Unavailable Unavailable KELLI GUSMAN Unavailable Unavailable INDURTI, PREM V Admitting Unavailable INDURTI, PREM V Attending Unavailable JONI ESQUIVEL Referring Unavailable BRANDEN VAZQUEZ Primary Care Unavailable Branden Vazquez Primary Care Provider Imm Branden STORM Primary Care Provider [phone] JUAN LUIS WHITING Referring Unavailable BRANDEN VAZQUEZ Primary Care Unavailable NON STAFF Primary Care Provider UnavailMD Miah Elias Admit Provider [phone] MD Miah Abreu Attending Provider [phone] MD Serafin Rollins Admit Provider [phone] MD Serafin Rollins Attending Provider NON STAFF Primary Care Provider UnavailMD Serafin Zaldivar Admit Provider MD Serafin Rollins Attending Provider NO FAMILY, PHYSICIAN Primary Care Provider Unava ilable MD Miah Abreu Admit Provider [phone] MD Miah Abreu Attending Provider [phone] OTTO SIEGEL Attending Unavailable DR NOEMY NAGY Primary Care Unavailable OTTO SIEGEL Admitting Unavailable SAUL LYONS Consulting Unavailable DR NOEMY NAGY Primary Care Unavailable DR BEATA CHAN Admitting Unavailable DR BEATA CHAN Attending Unavailable KARLA, DR BEATA Last Consulting Unavailable PRECIOUS, DR MARRUFO Consulting Unavailable MARIMAR VIVAS Consulting Unavailable MARIPOSA MARTIN Consulting Unavailable MISC, DR SALGUERO Primary Care Unavailable RIGOBERTO, DR OTERO Admitting Unavailable RIGOBERTO, DR OTERO Attending Unavailable RIGOBERTO, DR OTERO Consulting Unavailable PRECIOUS, DR MARRUFO Admitting Unavailable PRECIOUS, DR MARRUFO Attending Unavailable SERENA, SAUL GONSALES Consulting Unavailable MISC, DR SALGUERO Primary Care Unavailable TOPHER BROWN Consulting Unavailable CONOR, EDY Attending Unavailable CONOR, EDY Consulting Unavailable CONOR, EDY Admitting Unavailable [facility] Primary Care Unavailable KAYLA NYE Consulting Unavailable MD Miah Abreu Admit Provider [phone] MD Miah Abreu Attending Provider [phone] NON STAFF Primary Care Provider Unavailabl e MD Serafin Rollins Admit Provider MD Serafin Rollins Attending Provider [phone] GROVER Ko Other Provider Unavailable GROVER Bonner Other Provider Unavailable GROVER Delacruz Other Provider Unavailable Clifton RN Carmella Other Provider Unavailable GROVER Centeno Other Provider Unavailable Nicole RN Vaishali Other Provider Unavailable Dials, SHEET ROCK SANDER Alessandra Ewing Other Provider [phone] DO Valentina Nice Other Provider MD Rush Ramsey Other Provider DO Santi Rudd Other Provider MD Zeus Bright Other Provider [phone] MD Ya Simms Other Provider Sherif, ANP-BC Adele Other Provider [phone] MD Yessy Bustillos Other Provider MD Irwin Rivero Other Provider MD Jose Loaiza Other Provider MD Demario Spicer Other Provider DO Jesus Callahan Other Provider MD Becca Bustos Other Provider MD Kamron Solis Other Provider NINA Breaux Other Provider MD Abisai Madrid Other Provider MD Wolf Irwin Other Provider MD Hammad Zayas Other Provider MD Georgi Rodríguez Other Provider DO Debbie Greenwood Other Provider DO Jordan Dumont Other Provider DO Jim Wells Other Provider TANNER Douglas Other Provider DO Eddie Jensen Other Provider MD Emanuel Esposito Other Provider TANNER Chan Other Provider TANNER Delgado Other Provider [phone] MD Danny Mancia Other Provider MD Sánchez Noble Other Provider Mandy, GROVER Mcneill Other Provider Unavailable MD Guilherme Carbone Other Provider MD Jesus Molina Other Provider MD Charity Manzo Other Provider [phone] DO Monroe Zepeda Other Provider MD Efrain Alcazar II Other Provider DO Gwyn Wyatt Other Provider Efrain Alcazar II Unavailable [phone] NON STAFF Primary Care Provider MD Olvin Moran Admit Provider MD Olvin Rollins Attending Provider GROVER Ko Other Provider Unavailable GROVER Bonner Other Provider Unavailable Jayme RN Meme Other Provider Unavailable Clifton RN Carmella Other Provider Unavailable GROVER Centeno Other Provider Unavailable GROVER Rivera Other Provider Unavailable MD Alon Chand Other Provider Jeremy, SHEET ROCK SANDER Alessandra Kaylin Other Provider [phone] DO Valentina Nice Other Provider MD Rush Ramsey Other Provider DO Santi Rudd Other Provider MD Zeus Bright Other Provider MD Ya Simms Other Provider TANNER Hunter Other Provider MD Yessy Bustillos Other Provider [phone] MD Irwin Rivero Other Provider MD Jose Loaiza Other Provider MD Demario Spicer Other Provider DO Jesus Callahan Other Provider [phone] MD Becca Bustos Other Provider MD Kamron Solis Other Provider ARTHUR Breaux-Ulises Casillas Other Provider [phone] MD Abisai Madrid Other Provider MD Wolf Irwin Other Provider MD Hammad Zayas Other Provider MD Georgi Rodríguez Other Provider DO Debbie Greenwood Other Provider DO Jordan Dumont R Other Provider DO Jim Wells Other Provider TANNER Douglas Other Provider DO Eddie Jensen Other Provider MD Emanuel Esposito Other Provider TANNER Chan Other Provider [phone] TANNER Delgado Other Provider [phone] MD Danny Mancia Other Provider MD Sánchez Noble Other Provider DO Lexx Fox Other Provider TANNER Malagon Other Provider DO Maycol Lee Other Provider GROVER Galvan Other Provider Unavailable NON STAFF Primary Care Unavailable Olvin Rollins Attending Unavailab Stephanie Donis Consulting Unavailable Olvin Rollins Admitting Unavailab Jennifer Donis Consulting Unavailable Meme Delacruz Consulting Unavailable Carmella Lazo Consulting Unavailable Taryn Arianna Consulting Unavailable Vaishali Rivera Consulting Unavailable Alon Chand Consulting Unavailable Alessandra Luna Consulting Unavailable Valentina Nice Consulting Unavailable Rush Ramsey Consulting Unavailable Santi Rudd Consulting UnavailZeus Fernandez Consulting Unavailable Ya Simms Consulting Unavailable Adele Hunter Consulting UnavailYessy Morfin Consulting Unavailable Irwin Rivero Consulting Unavailable Jose Loaiza Consulting Unavailable Demario Spicer Consulting Unavailable Jesus Callahan Consulting Unavailable Becca Bustos Consulting Unavailable Kamron Solis Consulting Unavailable Gris Breaux Consulting Unavailable Abisai Madrid Consulting Unavailab Wolf Watson Consulting Unavailable Hammad Zayas Consulting Unavailable Georgi Rodríguez Consulting Unavailable Debbie Greenwood Consulting Unavailable Jordan Dumont Consulting Unavailable Jim Wells Consulting Unavailable Janie Douglas Consulting Unavailable Eddie Jensen Consulting Unavailable Emanuel Esposito Consulting Unavailable Jael Chan Consulting Unavailable Fabi Delgado Consulting Unavailable Danny Mancia Consulting Unavailable Sánchez Noble Consulting Unavailable Lexx Fox Consulting Unavailable Sofia Malagon Consulting Unavailable Maycol Lee Consulting Unavailable Charito Galvan Consulting Unavailable Brady, Miah Admitting Unavailable Brady, Miah Attending Unavailable NON STAFF Primary Care Unavailable NON STAFF Primary Care Unavailable AyoBaldemar estrellaan Attending Unavailab le Ayo, Olvin Admitting Unavailab le Stefani, Stephanie Consulting Unavailable Ayo, Olvin Admitting Unavailab le Brady, Miah Attending Unavailable NON STAFF Primary Care Unavailable Jennifer Bonner Consulting Unavailable Meme Delacruz Consulting Unavailable Carmella Lazo Consulting Unavailable Arianna Centeno Consulting Unavailable Vaishali Rivera Consulting Unavailable Alessandra Luna Consulting Unavailable Valentina Nice Consulting Unavailable Rush Ramsey Consulting Unavailable Santi Rudd Consulting UnavailZeus Fernandez Consulting Unavailable Ya Simms Consulting Unavailable Adele Hunter Consulting UnavailYessy Morfin Consulting Unavailable Irwin Rivero Consulting Unavailable Jose Loaiza Consulting Unavailable Demario Spicer Consulting Unavailable Jesus Callahan Consulting Unavailable Becca Bustos Consulting Unavailable Kamron Solis Consulting Unavailable Gris Breaux Consulting Unavailable DoAbisai mancilla Consulting Unavailab Wolf Watson Consulting Unavailable Hammad Zayas Consulting Unavailable Georgi Rodríguez Consulting Unavailable Debbie Greenwood Consulting Unavailable Jordan Dumont Consulting Unavailable Jim Wells Consulting Unavailable Janie Douglas Consulting Unavailable Eddie Jensen Consulting Unavailable WaldoomaEmanuel last Consulting Unavailable Jael Chan Consulting Unavailable Fabi Delgado Consulting Unavailable Danny Mancia Consulting Unavailable Sánchez Noble Consulting Unavailable Charito Galvan Consulting Unavailable Guilherme Carbone Consulting Unavailable Jesus Molina Consulting Unavailable Charity Manzo Consulting Unavailable Monroe Zepeda Consulting Unavailable Efrain Alcazar II Consulting Unavailabl e Yoselin, Gwyn A Consulting Unavailable CAM GUTIERREZ Attending Unavailable GUTIERREZ, CAM Attending Unavailable GUTIERREZ, CAM Attending Unavailable GUTIERREZ, CAM Referring Unavailable GUTIERREZ, CAM Attending Unavailable GUTIERREZ, CAM Referring Unavailable Allergies Allergy Classification Reported Allergen(s) Allergy Type Date of Onset Reaction(s) Facility (6 sources) diphenhydrAMINE Drug Allergy 07-02-20 19 Anxiety [place] (6 sources) hydrOXYzine Drug Allergy 01-05-20 18 Agitated [place] (2 sources) Ketorolac Drug Allergy 04-22-20 13 Shortness Of Breath [place] (6 sources) metroNIDAZOLE Drug Allergy 04-23-20 13 Nausea [place] Vomiting [place] (2 sources) Morphine Drug Allergy 09-17-20 09 Other (See Comments) [place] (2 sources) Sulfamethoxazole / Trimethoprim Drug Allergy 04-23-20 13 Nausea [place] (6 sources) traMADol Drug Allergy 04-22-20 13 Other (See Comments) [place] (6 sources) Trimethoprim Drug Allergy 01-05-20 18 Vomiting [place] (5 sources) busPIRone; Translations: [buspirone] Drug Allergy 11-02-19 22 Anxiety [facility] (5 sources) Nalbuphine; Translations: [nalbuphine] Drug Allergy 11-02-19 22 Unknown Reaction [facility] (5 sources) OLANZapine; Translations: [olanzapine] Drug Allergy 11-02-19 22 Unknown Reaction [facility] (5 sources) Sulfamethoxazole; Translations: [sulfamethoxazole] Drug Allergy 11-02-19 22 Vomiting [facility] (1 source) busPIRone Drug Allergy 03-19-20 22 [facility] (1 source) hydrOXYzine Drug Allergy [facility] (1 source) metroNIDAZOLE Drug Allergy 09-28-20 16 [facility] (2 sources) Nalbuphine Drug Allergy Unknown [facility] (2 sources) Sulfamethoxazole / Trimethoprim Drug Allergy 10-05-19 17 Unknown [facility] (1 source) traMADol Drug Allergy 10-05-19 17 [facility] (1 source) traMADol Drug Allergy Unknown [facility] (1 source) Flagil Propensity to adverse reactions Unknown [facility] Other (1 source) diphenhydrAMINE Drug Allergy 11-02-19 [facility] (1 source) hydrOXYzine Drug Allergy 11-02-19 [facility] (1 source) metroNIDAZOLE Drug Allergy 11-02-19 [facility] (1 source) traMADol Drug Allergy 11-02-19 [facility] (1 source) Trimethoprim Drug Allergy 11-02-19 [facility] Medications Current Medications Medication Drug Class(es) Dates Sig (Normalized) Sig (Original) ALPRAZolam 1 mg oral tablet (20 sources) Benzodiazepine Start: 08-24-2023 take 1 mg by mouth twice daily Alprazolam Active 1 MG PO Twice daily August 24, 2023 12:00am Start: 07-20-2021 End: 04-13-2023 take 1 mg by mouth twice daily Alprazolam Discontinued 1 MG PO Twice daily 14 7 March 23, 2022 10:51am April 13, 2023 9:24am Start: 03-09-2021 End: 07-20-2021 take 0.5 mg by mouth twice daily Alprazolam (Xanax) 1 mg Tablet Discontinued 0.5 MG PO Twice daily 0 March 09, 2021 10:19am July 20, 2021 8:59pm Start: 03-05-2021 End: 03-09-2021 take 1 tablet by mouth twice daily Alprazolam (Xanax) 1 mg Tablet Discontinued 1 MG PO Twice daily March 04, 2021 11:00pm March 09, 2021 10:35am Start: 02-05-2020 End: 02-08-2020 Alprazolam Discontinued 1 MG PO Twice daily February 04, 2020 11:00pm February 08, 2020 10:22am 1 in a.m., 1 in afternoon Start: 02-05-2020 End: 02-08-2020 take 2 mg by mouth once daily at bedtime Alprazolam Discontinued 2 MG PO Daily at bedtime February 04, 2020 11:00pm February 08, 2020 10:22am Start: 12-05-2019 End: 02-05-2020 take 0.5 mg by mouth once daily Alprazolam Discontinue d 0.5 MG PO Daily December 05, 2019 12:00am February 05, 2020 4:35pm Start: 12-05-2019 End: 02-05-2020 take 1 mg by mouth at bedtime Alprazolam Discontinued 1 MG PO Bedtime December 05, 2019 12:00am February 05, 2020 4:35pm Start: 08-06-2019 End: 12-05-2019 take 1 tablet by mouth twice daily Alprazolam (Xanax) 1 mg Tablet Discontinued 1 MG PO Twice daily 0 August 10, 2019 10:01am December 05, 2019 2:07pm 0900,1400 Start: 08-06-2019 End: 12-05-2019 take 2 mg by mouth at bedtime Alprazolam Discontinued 2 MG PO Bedtime 0 August 10, 2019 10:01am December 05, 2019 2:07pm Start: 07-05-2019 End: 08-04-2019 take 1 tablet by mouth three times daily as needed for anxiety ALPRAZolam (XANAX) 1 MG tablet Indications: Depression, recurrent (HCC) Take 1 tablet by mouth 3 times daily as needed for Anxiety for up to 30 days. 90 tablet 0 07/05/2019 08/04/2019 Active Start: 10-28-2018 End: 10-31-2018 take 1 tablet by mouth twice daily Alprazolam (Xanax) 1 mg tablet Discontinued 1 MG PO Twice daily October 28, 2018 12:00am October 31, 2018 8:32am Start: 07-30-2018 End: 08-04-2018 take 1 mg by mouth twice daily Alprazolam Discontinued 1 MG PO Twice daily July 29, 2018 11:00pm August 04, 2018 9:47am Start: 07-30-2018 End: 08-04-2018 take 0.5 mg by mouth once daily Alprazolam Discontinue d 0.5 MG PO Daily July 29, 2018 11:00pm August 04, 2018 9:47am Start: 01-04-2018 End: 01-09-2018 take 0.25 mg by mouth twice daily Alprazolam Discontinued 0.25 MG PO Twice daily January 03, 2018 11:00pm January 09, 2018 10:18am amitriptyline hydrochloride 10 mg oral tablet (1 source) Tricyclic Antidepressant take 1 tablet by mouth every twenty-four hours Amitriptyline HCl 10 MG 1 tablet at bedtime Orally Once a day Active amLODIPine 2.5 mg oral tablet (2 sources) Dihydropyridine Calcium Channel Rios Start: 023 take 1 tablet by mouth once daily Amlodipine (Norvasc) 2.5 mg tablet Active 2.5 MG PO Daily April 12, 2023 11:00pm atorvastatin 40 mg oral tablet (3 sources) HMG-CoA Reductase Inhibitor Start: 022 take 1 tablet by mouth at bedtime Atorvastatin (Lipitor) 40 mg tablet Active 40 MG PO Bedtime August 29, 2022 12:00am docusate sodium 100 mg oral capsule (13 sources) Start: take 100 mg by mouth twice daily Docusate Sodium Active 100 MG PO Twice daily September 01, 2022 12:00am Start: 07-05-2019 [facility] docusate (COLACE, DULCOLAX) 100 MG CAPS Take 100 mg by mouth nightly 30 capsule 0 07/05/2019 Active Start: 01-09-2018 End: 10-31-2018 take 100 mg by mouth twice daily Docusate Sodium Discontinued 100 MG PO Twice daily July 30, 2018 8:12am October 31, 2018 8:32am doxepin hydrochloride 100 mg oral capsule (20 sources) Tricyclic Antidepressant Start: 08-24-2023 take 100 mg by mouth at bedtime Doxepin Active 100 MG PO Bedtime August 24, 2023 12:00am Start: 04-13-2023 End: 04-17-2023 take 25 mg by mouth at bedtime Doxepin Discontinued 25 MG PO Bedtime April 12, 2023 11:00pm April 17, 2023 11:19am Start: 06-12-2022 End: 08-29-2022 take 100 mg by mouth once daily at bedtime Doxepin Discontinued 100 MG PO Daily at bedtime June 11, 2022 11:00pm August 29, 2022 4:48pm Start: 06-12-2022 End: 08-29-2022 take 25 mg by mouth twice daily Doxepin Discontinued 2 5 MG PO Twice daily June 11, 2022 11:00pm August 29, 2022 4:48pm Start: 02-22-2022 End: 06-12-2022 take 25 mg by mouth once daily Doxepin Discontinued 25 MG PO Daily March 23, 2022 10:51am June 12, 2022 11:52am levothyroxine sodium 0.075 mg oral tablet (20 sources) l-Thyroxine Start: 08-29-2022 End: 08-24-2023 take 75 ug by mouth once daily Levothyroxine Active 75 MCG PO Daily August 24, 2023 12:00am Start: 09-14-2017 End: 08-29-2022 take 1 tablet by mouth once daily Levothyroxine (Synthroid) 50 mcg Tablet Discontinued 50 MCG PO DAILY@0630 7 March 23, 2022 10:51am August 29, 2022 4:09pm take 1 tablet by john th once daily in the morning Synthroid 50 MCG 1 tablet on an empty stomach in the morning Orally Once a day Active lisdexamfetamine dimesylate 30 mg oral capsule (2 sources) Central Nervous System Stimulant Start: 04-13-2023 take 1 capsule by mouth once daily Lisdexamfetamine (Vyvanse) 30 mg capsule Active 30 MG PO Daily April 12, 2023 11:00pm naproxen 500 mg oral tablet (1 source) Nonsteroidal Anti-inflammatory Drug Start: 08-26-2023 take 500 mg by mouth twice daily at mealtime Naproxen Active 500 MG PO Twice daily with meals 56 August 26, 2023 12:00am QUEtiapine 100 mg oral tablet (17 sources) Atypical Antipsychotic Start: 08-24-2023 take 100 mg by mouth at bedtime Quetiapine Active 100 MG PO Bedtime August 24, 2023 12:00am Start: 04-17-2023 End: 08-24-2023 take 25 mg by mouth three times daily Quetiapine Discontinued 25 MG PO Three times daily 60 April 16, 2023 11:00pm August 24, 2023 12:19am Start: 07-05-2019 take 2 tablets by mo uth once daily QUEtiapine (SEROQUEL XR) 50 MG extended release tablet Take 2 tablets by mouth nightly 60 tablet 0 07/05/2019 Active Start: 10-28-2018 End: 10-31-2018 take 1 tablet by mouth at bedtime Quetiapine (Seroquel) 400 mg tablet Discontinued 400 MG PO Bedtime October 28, 2018 12:00am October 31, 2018 8:32am Start: 07-30-2018 End: 08-04-2018 take 400 mg by mouth at bedtime Quetiapine Discontinue d 400 MG PO Bedtime July 29, 2018 11:00pm August 04, 2018 9:49am Start: 01-09-2018 End: 07-30-2018 take 200 mg by mouth once daily at bedtime Quetiapine Discontinued 200 MG PO Daily at bedtime January 08, 2018 11:00pm July 30, 2018 8:10am Completed/Discontinued Medications Medication Drug Class(es) Dates Sig (Normalized) Sig (Original) ARIPiprazole 5 mg oral tablet (4 sources) Atypical Antipsychotic Start: 08-04-2018 End: 10-28-2018 take 5 mg by mouth once daily Aripiprazole Discontinued 5 MG PO Daily August 03, 2018 11:00pm October 28, 2018 9:40am 24 hr buPROPion hydrochloride 150 mg extended release oral tablet (20 sources) Aminoketone Start: 04-17-2023 End: 08-24-2023 Bupropion Hcl Discontinued 150 MG PO Daily 30 April 16, 2023 11:00pm August 24, 2023 12:19am Take with 300 mg tablet for total of 450 Start: 04-13-2023 End: 04-23-2023 take 300 mg by mouth once daily Bupropion Hcl Active 3 00 MG PO Daily April 22, 2023 11:00pm Start: 06-12-2022 End: 04-13-2023 take 1 tablet by mouth twice daily Bupropion Hcl (Wellbutrin Sr) 200 mg tablet sustained-release 12 hr Discontinued 200 MG PO Twice daily 30 September 01, 2022 9:59am April 13, 2023 9:08am Start: 03-23-2022 End: 06-12-2022 take 150 mg by mouth twice daily Bupropion Hcl Discontinued 150 MG PO Twice daily 14 March 22, 2022 11:00pm June 12, 2022 11:52am Start: 02-18-2022 End: 03-23-2022 take 150 mg by mouth twice daily in the morning Bupropion Hcl Discontinued 150 MG PO Twice daily February 18, 2022 3:18pm March 23, 2022 10:53am Take in the morning and the afternoon Start: 11-09-2021 End: 02-18-2022 take 100 mg by mouth twice daily in the morning Bupropion Hcl Discontinued 100 MG PO Twice daily 60 November 09, 2021 12:00am February 18, 2022 3:18pm Take in the morning and the afternoon Start: 09-14-2017 End: 07-02-2019 take 300 mg by mouth once daily in the morning Bupropion Hcl Discontinued 300 MG PO Every morning January 08, 2018 11:00pm July 30, 2018 8:12am cariprazine 3 mg oral capsule (2 sources) Atypical Antipsychotic Start: 04-13-2023 End: 04-17-2023 take 1 capsule by mouth once daily Cariprazine (Vraylar) 3 mg capsule Discontinued 3 MG PO Daily April 12, 2023 11:00pm April 17, 2023 11:19am chlordiazePOXIDE hydrochloride 10 mg oral capsule (5 sources) Benzodiazepine Start: 01-04-2018 End: 01-09-2018 take 10 mg by mouth once daily in the evening Chlordiazepoxide Hcl Discontinued 10 MG PO Every evening January 03, 2018 11:00pm January 09, 2018 10:18am Librium 10 MG 1 capsule Orally AT NIGHT Not-Taking cholecalciferol 0.025 mg oral tablet (4 sources) Vitamin D Start: 11-30-2019 End: 02-05-2020 take 2000 [IU] by mouth once daily Cholecalciferol (Vitamin D3) Discontinued 2000 UNIT PO Daily 60 November 30, 2019 12:00am February 05, 2020 4:35pm clonazePAM 1 mg oral tablet (6 sources) Benzodiazepine Start: 04-13-2023 End: 08-24-2023 take 1 tablet by mouth three times daily Clonazepam (Klonopin) 1 mg tablet Discontinued 1 MG PO Three times daily April 12, 2023 11:00pm August 24, 2023 12:19am Start: 08-29-2022 End: 08-29-2022 take 1 tablet by mouth twice daily Clonazepam (Klonopin) 1 mg tablet Discontinued 1 MG PO Twice daily August 29, 2022 12:00am August 29, 2022 4:48pm take 1 tablet by john th every twenty-four hours KlonoPIN 0.5 MG 1 tablet Orally Once a day Active Diclofenac (4 sources) Nonsteroidal Anti-inflammatory Drug Start: 11-30-2019 End: 02-05-2020 apply 2 g topically four times daily Diclofenac Sodium Discontinued 2 GM TOPICAL Four times daily November 30, 2019 12:00am February 05, 2020 4:35pm Start: 11-30-2019 End: 02-05-2020 apply 2 g topically four times daily Diclofenac Sodium Discontinued 2 GM TOPICAL Four times daily November 30, 2019 1:00am February 05, 2020 5:35pm doxycycline hyclate 100 mg oral tablet (3 sources) Tetracycline-class Drug Start: 08-24-2023 End: 08-24-2023 take 75 mg by mouth twice daily Doxycycline Hyclate Discontinued 75 MG PO Twice daily August 24, 2023 12:17am August 24, 2023 12:23am Start: 05-01-2023 End: 08-24-2023 take 100 mg by mouth twice daily Doxycycline Hyclate Discontinued 100 MG PO Twice daily 8 April 30, 2023 11:00pm August 24, 2023 12:17am DULoxetine 30 mg delayed release oral capsule (20 sources) Serotonin and Norepinephrine Reuptake Inhibitor Start: 07-24-2021 End: 06-12-2022 take 90 mg by mouth once daily Duloxetine Discontinued 90 MG PO Daily 22 04March 23, 2022 10:51am June 12, 2022 11:52am Start: 11-27-2019 End: 11-02-2021 take 60 mg by mouth once daily Duloxetine Discontinued 60 MG PO Daily July 24, 2021 8:18am November 02, 2021 7:48pm Start: 08-10-2019 End: 11-27-2019 take 90 mg by mouth once daily Duloxetine Discontinued 90 MG PO Daily August 10, 2019 12:00am November 27, 2019 4:33pm Start: 08-06-2019 End: 08-10-2019 take 60 mg by mouth once daily Duloxetine Discontinued 60 MG PO Daily August 06, 2019 12:00am August 10, 2019 10:01am Start: 07-06-2019 End: 02-18-2022 take 30 mg by mouth once daily Duloxetine Discontinued 30 MG PO DAILY@1700 30 November 09, 2021 12:00am February 18, 2022 3:18pm FLUoxetine 40 mg oral capsule (4 sources) Serotonin Reuptake Inhibitor Start: 07-30-2018 End: 10-31-2018 take 60 mg by mouth once daily Fluoxetine Discontinued 60 MG PO Daily July 29, 2018 11:00pm October 31, 2018 8:32am gabapentin 300 mg oral capsule (20 sources) Anti-epileptic Agent Start: 04-13-2023 End: 08-24-2023 take 1 capsule by mouth twice daily Gabapentin (Neurontin) 300 mg capsule Discontinued 300 MG PO Twice daily April 12, 2023 11:00pm August 24, 2023 12:19am Start: 08-29-2022 End: 04-13-2023 take 1 capsule by mouth three times daily Gabapentin (Neurontin) 400 mg capsule Discontinued 400 MG PO Three times daily September 01, 2022 9:59am April 13, 2023 9:08am Start: 06-06-2022 End: 08-29-2022 take 400 mg by mouth three times daily Gabapentin Discontinued 400 MG PO Three times daily June 06, 2022 6:51pm August 29, 2022 4:50pm Start: 07-20-2021 End: 06-06-2022 take 800 mg by mouth three times daily Gabapentin Discontinued 800 MG PO Three times daily 22 04March 23, 2022 10:51am June 06, 2022 6:52pm Start: 02-08-2020 End: 07-20-2021 take 400 mg by mouth three times daily Gabapentin Discontinued 400 MG PO Three times daily February 07, 2020 11:00pm July 20, 2021 9:00pm Start: 02-05-2020 End: 02-08-2020 take 300 mg by mouth three times daily Gabapentin Discontinued 300 MG PO Three times daily February 04, 2020 11:00pm February 08, 2020 10:22am Start: 11-30-2019 End: 02-05-2020 take 400 mg by mouth three times daily Gabapentin Discontinued 400 MG PO Three times daily November 30, 2019 12:00am February 05, 2020 4:36pm Start: 11-27-2019 End: 11-30-2019 take 300 mg by mouth twice daily Gabapentin Discontinued 300 MG PO Twice daily November 27, 2019 12:00am November 30,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 LDL less than 100 mg/dL Optimal LDL 100-129 mg/dL Near or above optimal LDL 130-159 mg/dL Borderline high LDL 160-189 mg/dL High LDL greater than 189 mg/dL Very high Performed By: #### B MP, CBC #### [place] [address] [place] Triglyceride w/Reflex 85 mg/dL Normal 0-149 [facility] Comment on above: Result Comment: TRIG ATP III CLASSIFICATION TRIG less than 150 mg/dL Normal TRIG 150-199 mg/dL Borderline high TRIG 200-500 mg/dL High TRIG greater than 500 mg/dL Very high Standard traceable to the Center for Disease Conrtrol and Prevention (CDC) test method. Performed By: #### B MP, CBC #### [facility] [address] VLDL CHOLESTEROL 17 mg/dL Normal [facility] Comment on above: Performed By: #### B MP, CBC #### [facility] [address] Serum or plasma high density lipoprotein (HDL) cholesterol measurementOrdered By: Olvin Rollins on 08-24-2023 Cholesterol in HDL [Mass/Vol] 39 mg/dL 23- [facility] Comment on above: HDL CHOL ATP-III CLA SSIFICATION Cardiovascular RiskHDL > or equal to 60 mg/dL LOWHDL < 40 mg/dL HIGH Serum or plasma total choles terol/high density lipoprotein (HDL) cholesterol mass ratOrdered By: Olvin Rollins on 08-24-2023 Cholesterol.total/Rachel sterol in HDL [Mass ratio] 2.4 {ratio} <5.0 [facility] Thyroid Stim Hormone w/Rflxo n 08-24-2023 Thyroid Stim Hormone w/Rflx 1.54 u[iU]/mL Normal 0.45-5.33 [facility] Comment on above: Performed By: #### B MP, CBC #### [facility] [address] Thyrotropin [Units/volume] i n Serum or PlasmaOrdered By: Olvin Rollins on 08-24-2023 TSH Qn 1.54 m[IU]/L 0.45-5.33 [facility] Triglyceride [Mass/volume] i n Serum or PlasmaOrdered By: Olvin Rollins on 08-24-2023 Triglyceride [Mass/Vol] 85 mg/dL 0-149 [facility] Comment on above: TRIG ATP III CLASSIF ICATIONTRIG less than 150 mg/dL NormalTRIG 150-199 mg/dL Borderline highTRIG 200-500 mg/dL High TRIG greater than 500 mg/dL Very highStandard traceable to the Center for Disease Conrtrol and Prevention (CDC) test method. Urate [Mass/volume] in Serum or PlasmaOrdered By: Olvin Rollins on 08-24-2023 Urate [Mass/Vol] 4.1 mg/dL 2.3-6.6 [facility] Uric Acidon 08-24-2023 Urate [Mass/Vol] 4.1 mg/dL Normal 2.3-6.6 [facility] Comment on above: Performed By: #### B MARY, CBC #### [facility] [address] [place] [id number] [facility] Vitamin D 25 Hydroxy Totalon 08-24-2023 Vitamin D 25 Hydroxy Total 34.0 ng/mL Normal 30-100 [facility] Comment on above: Result Comment: MARINA MIN D STATUS 25(OH)VITAMIN D RANGE (ng/mL) Deficient <20 Insufficient 20 to <30 Sufficient 30 to 100 Reference: Jhony Fu, Janina LAYTON, et al. Evaluation,treatment, and prevention of vitamin D deficiency; an Endocrine Society clinical practice guideline. JCEM. 2010; 96(7):1911-30. PERFORMED BY: [place] [address] PATHOLOGIST ROLLER VARNISHER TODD PICKARD M.D. Performed By: #### B MARY, CBC #### [place] [id number] [facility] Vitamin D+Metabolites [Mass/ volume] in Serum or PlasmaOrdered By: Olvin Rollins on 08-24-2023 Vitamin D+Metabolites [Mass/Vol] 34.0 ng/mL 30-100 [facility] Comment on above: VITAMIN D STATUS 25( [place])VITAMIN D RANGE (ng/mL) Deficient <20 Insufficient 20 to <30Sufficient 30 to 100Reference: Jhony Fu, Janina LAYTON, et al. Evaluation,treatment, and prevention of vitamin D deficiency; an Endocrine Society clinical practice guideline. JCEM. 2010; 96(7):1911-30. Basophils Auto (Bld) [#/Vol] Ordered By: Jesus Callahan on 04-26-2023 Basophils (Bld) [#/Vol] 0.0 10*3/uL 0.0-0.2 [facility] Basophils/100 WBC Auto (Bld) Ordered By: Jesus Callahan on 04-26-2023 Basophils/100 WBC (Bld) 1.2 % . [facility] Complete Blood Count Auto Di ffon 04-26-2023 Basophils (Bld) [#/Vol] 0.0 10*3/uL Normal 0.0-0.2 [facility] Comment on above: Result Comment: PERF ORMED BY: [place] [address] PATHOLOGIST ROLLER VARNISHER TODD PICKARD M.D. Performed By: #### C BC #### [address] Basophils/100 WBC (Bld) 1.2 % Normal . [facility] Comment on above: Performed By: #### C BC #### [address] Eosinophils (Bld) [#/Vol] 0.1 10*3/uL Normal 0.0-0.45 [facility] Comment on above: Performed By: #### C BC #### [address] Eosinophils/100 WBC (Bld) 3.2 % Normal . [facility] Comment on above: Performed By: #### C BC #### [address] Erythrocyte distribution width (RBC) [Ratio] 12.1 % Normal 11.9-15.3 [facility] Comment on above: Performed By: #### C BC #### [address] Hematocrit (Bld) [Volume fraction] 34.0 % Normal 34.0-46.4 [facility] Comment on above: Performed By: #### C BC #### [facility] [address] Hemoglobin (Bld) [Mass/Vol] 11.5 g/dL Low 11.8-15.4 [facility] Comment on above: Performed By: #### C BC #### [address] Lymphocytes (Bld) [#/Vol] 1.3 10*3/uL Normal 1.00-4.8 [facility] Comment on above: Performed By: #### C BC #### [address] Lymphocytes/100 WBC (Bld) 33.3 % Normal . [facility] Comment on above: Performed By: #### C BC #### [address] MCH (RBC) [Entitic mass] 33.1 pg Normal 24.7-34.3 [facility] Comment on above: Performed By: #### C BC #### [address] MCV (RBC) [Entitic vol] 97.5 fL Normal 80-100 [facility] Comment on above: Performed By: #### C BC #### [address] Mean Corpuscular HGB Conc 33.9 g/dL Normal 32.0-35.0 [facility] Comment on above: Performed By: #### C BC #### [address] Monocytes (Bld) [#/Vol] 0.3 10*3/uL Normal 0.0-0.8 [facility] Comment on above: Performed By: #### C BC #### [address] Monocytes/100 WBC (Bld) 8.2 % Normal . [facility] Comment on above: Performed By: #### C BC #### [address] Neutrophils (Bld) [#/Vol] 2.1 10*3/uL Normal 1.8-7.7 [facility] Comment on above: Performed By: #### C BC #### [address] Neutrophils/100 WBC (Bld) 54.1 % Normal . [facility] Comment on above: Performed By: #### C BC #### [address] NRBC% 0.2 /100{WBC} Normal 0-0.5 [facility] Comment on above: Performed By: #### C BC #### [address] Platelet mean volume (Bld) [Entitic vol] 8.4 fL Normal 6.3-10.7 [facility] Comment on above: Performed By: #### C BC #### [address] Platelets (Bld) [#/Vol] 231 10*3/uL Normal 150-450 [facility] Comment on above: Performed By: #### C BC #### [address] RBC (Bld) [#/Vol] 3.49 10*6/uL Low 3.60-5.00 [facility] Comment on above: Performed By: #### C BC #### [address] WBC (Bld) [#/Vol] 3.8 10*3/uL Normal 3.8-11.6 [facility] Comment on above: Performed By: #### C BC #### [place] [address] [place] Eosinophils Auto (Bld) [#/Vo l]Ordered By: Jesus Callahan on 04-26-2023 Eosinophils (Bld) [#/Vol] 0.1 10*3/uL 0.0-0.45 [facility] Eosinophils/100 WBC Auto (Bl d)Ordered By: Jesus Callahan on 04-26-2023 Eosinophils/100 WBC (Bld) 3.2 % . [facility] Erythrocyte distribution wid th Auto (RBC) [Ratio]Ordered By: Jesus Callahan on 04-26-2023 Erythrocyte distribution width (RBC) [Ratio] 12.1 % 11.9-15.3 [facility] Hematocrit Auto (Bld) [Volum e fraction]Ordered By: Jesus Callahan on 04-26-2023 Hematocrit (Bld) [Volume fraction] 34.0 % 34.0-46.4 [facility] Hemoglobin [Mass/volume] in BloodOrdered By: Jesus Callahan on 04-26-2023 Hemoglobin (Bld) [Mass/Vol] 11.5 g/dL 11.8-15.4 [facility] Leukocytes [#/volume] correc vargas for nucleated erythrocytes in Blood by Automated counOrdered By: Jesus Callahan on 04-26-2023 WBC corrected for nucl RBC Auto (Bld) [#/Vol] 3.8 10*3/uL 3.8-11.6 [facility] Lymphocytes Auto (Bld) [#/Vo l]Ordered By: Jesus Callahan on 04-26-2023 Lymphocytes (Bld) [#/Vol] 1.3 10*3/uL 1.00-4.8 [facility] Lymphocytes/100 WBC Auto (Bl d)Ordered By: Jessu Callahan on 04-26-2023 Lymphocytes/100 WBC (Bld) 33.3 % . [facility] MCH Auto (RBC) [Entitic mass ]Ordered By: Jesus Callahan on 04-26-2023 MCH (RBC) [Entitic mass] 33.1 pg 24.7-34.3 [facility] MCHC Auto (RBC) [Mass/Vol]Or dered By: Jeuss Callahan on 04-26-2023 MCHC (RBC) [Mass/Vol] 33.9 g/dL 32.0-35.0 [facility] MCV Auto (RBC) [Entitic vol] Ordered By: Jesus Callahan on 04-26-2023 MCV (RBC) [Entitic vol] 97.5 fL 80-100 [facility] Monocytes Auto (Bld) [#/Vol] Ordered By: Jesus Callahan on 04-26-2023 Monocytes (Bld) [#/Vol] 0.3 10*3/uL 0.0-0.8 [facility] Monocytes/100 WBC Auto (Bld) Ordered By: Jesus Callahan on 04-26-2023 Monocytes/100 WBC (Bld) 8.2 % . [facility] Neutrophils Auto (Bld) [#/Vo l]Ordered By: Jesus Callahan on 04-26-2023 Neutrophils (Bld) [#/Vol] 2.1 10*3/uL 1.8-7.7 [facility] Neutrophils/100 WBC Auto (Bl d)Ordered By: Jesus Callahan on 04-26-2023 Neutrophils/100 WBC (Bld) 54.1 % . [facility] Nucleated erythrocytes [Pres ence] in Blood by Automated countOrdered By: Jesus Callahan on 04-26-2023 Nucleated RBC Auto Ql (Bld) 0.2 /100{WBC} 0-0.5 [facility] Platelet mean volume Auto (B ld) [Entitic vol]Ordered By: Jesus Callahan on 04-26-2023 Platelet mean volume (Bld) [Entitic vol] 8.4 fL 6.3-10.7 [facility] Platelets Auto (Bld) [#/Vol] Ordered By: Jesus Callahan on 04-26-2023 Platelets (Bld) [#/Vol] 231 10*3/uL 150-450 [facility] RBC Auto (Bld) [#/Vol]Ordere d By: Jesus Callahan on 04-26-2023 RBC (Bld) [#/Vol] 3.49 10*6/uL 3.60-5.00 [facility] WBC Auto (Bld) [#/Vol]Ordere d By: Jesus Callahan on 04-26-2023 WBC (Bld) [#/Vol] 3.8 10*3/uL 3.8-11.6 [facility] Basic Metabolic Panelon 04-03 Anion gap [Moles/Vol] 7.3 mmol/L Normal 6.0-15.0 [facility] Comment on above: Performed By: #### B MP, CBC #### [facility] [address] Calcium [Mass/Vol] 7.9 mg/dL Low 8.6-10.3 [facility] Comment on above: Performed By: #### B MP, CBC #### [facility] [address] Chloride [Moles/Vol] 108 mmol/L High 98-107 [facility] Comment on above: Performed By: #### B MP, CBC #### [facility] [address] CO2 [Moles/Vol] 28.9 mmol/L Normal 21.0-31.0 [facility] Comment on above: Performed By: #### B MP, CBC #### [facility] [address] Creatinine [Mass/Vol] 0.95 mg/dL Normal 0.60-1.20 [facility] Comment on above: Performed By: #### B MP, CBC #### [place] [address] [place] Creatinine Clr Calc Pharmacy 72.98 [facility] Comment on above: Result Comment: PERF ORMED BY: [place] [address] PATHOLOGIST ROLLER VARNISHER TODD PICKARD M.D. Performed By: #### B MP, CBC #### [place] [address] [place] GFR/1.73 sq M.predicted MDRD (S/P/Bld) [Vol rate/Area] mL/min/{1.73_m2} [facility] Comment on above: Performed By: #### B MP, CBC #### [facility] [address] [place] [address] [place] Glucose [Mass/Vol] 94 mg/dL Normal 70-100 [facility] Comment on above: Result Comment: [facility] Glucose Reference Range is dependent on time and content of last meal. Glucose of more than 200 mg/dL in a nonstressed, ambulatory subject supports the diagnosis of Diabetes Mellitus. ADA recommended reference range Performed By: #### B MP, CBC #### [facility] [address] Potassium [Moles/Vol] 4.2 mmol/L Normal 3.5-5.1 [facility] Comment on above: Performed By: #### B MP, CBC #### [facility] [address] [place] [address] [place] Sodium [Moles/Vol] 140 mmol/L Normal 136-145 [facility] Comment on above: Performed By: #### B MP, CBC #### [facility] [address] [place] [address] [place] Urea nitrogen [Mass/Vol] 14 mg/dL Normal 7-25 [facility] Comment on above: Performed By: #### B MP, CBC #### [facility] [address] [place] [address] [place] Calcium [Mass/volume] in Ser um or PlasmaOrdered By: Adele Gorman on 04-24-2023 Calcium [Mass/Vol] 7.9 mg/dL 8.6-10.3 [facility] Carbon dioxide, total [Moles /volume] in Serum or PlasmaOrdered By: Adele Gorman on 04-24-2023 CO2 [Moles/Vol] 28.9 mmol/L 21.0-31.0 [facility] Chloride [Moles/volume] in S kennedi or PlasmaOrdered By: Adele Gorman on 04-24-2023 Chloride [Moles/Vol] 108 mmol/L 98-107 [facility] Complete Blood Count Auto Di ffon 04-24-2023 Basophils (Bld) [#/Vol] 0.0 10*3/uL Normal 0.0-0.2 [facility] Comment on above: Result Comment: PERF ORMED BY: [place] [address] PATHOLOGIST ROLLER VARNISHER TODD PICKARD M.D. Performed By: #### B MP, CBC #### [facility] [address] [place] [address] [place] Basophils/100 WBC (Bld) 0.8 % Normal . [facility] Comment on above: Performed By: #### B MP, CBC #### [facility] [address] [place] [address] [place] Eosinophils (Bld) [#/Vol] 0.2 10*3/uL Normal 0.0-0.45 [facility] Comment on above: Performed By: #### B MP, CBC #### [facility] [address] [place] [address] [place] Eosinophils/100 WBC (Bld) 3.4 % Normal . [facility] Comment on above: Performed By: #### B MP, CBC #### [address] Erythrocyte distribution width (RBC) [Ratio] 11.9 % Normal 11.9-15.3 [facility] Comment on above: Performed By: #### B MP, CBC #### [facility] [address] [place] [address] [place] Hematocrit (Bld) [Volume fraction] 31.2 % Low 34.0-46.4 [facility] Comment on above: Performed By: #### B MP, CBC #### [place] [address] [place] Hemoglobin (Bld) [Mass/Vol] 10.9 g/dL Low 11.8-15.4 [facility] Comment on above: Performed By: #### B MP, CBC #### [facility] [address] [place] [address] [place] Lymphocytes (Bld) [#/Vol] 1.4 10*3/uL Normal 1.00-4.8 [facility] Comment on above: Performed By: #### B MP, CBC #### [facility] [address] [place] [address] [place] Lymphocytes/100 WBC (Bld) 30.6 % Normal . [facility] Comment on above: Performed By: #### B MP, CBC #### [facility] [address] MCH (RBC) [Entitic mass] 33.6 pg Normal 24.7-34.3 [facility] Comment on above: Performed By: #### B MP, CBC #### [facility] [address] MCV (RBC) [Entitic vol] 96.2 fL Normal 80-100 [facility] Comment on above: Performed By: #### B MP, CBC #### [facility] [address] Mean Corpuscular HGB Conc 34.9 g/dL Normal 32.0-35.0 [facility] Comment on above: Performed By: #### B MP, CBC #### [address] Monocytes (Bld) [#/Vol] 0.4 10*3/uL Normal 0.0-0.8 [facility] Comment on above: Performed By: #### B MP, CBC #### [place] [address] [place] Monocytes/100 WBC (Bld) 8.1 % Normal . [facility] Comment on above: Performed By: #### B MP, CBC #### [address] Neutrophils (Bld) [#/Vol] 2.7 10*3/uL Normal 1.8-7.7 [facility] Comment on above: Performed By: #### B MP, CBC #### [facility] [address] [place] [address] [place] Neutrophils/100 WBC (Bld) 57.1 % Normal . [facility] Comment on above: Performed By: #### B MP, CBC #### [facility] [address] NRBC% 0.2 /100{WBC} Normal 0-0.5 [facility] Comment on above: Performed By: #### B MP, CBC #### [address] [place] [address] [place] Platelet mean volume (Bld) [Entitic vol] 8.9 fL Normal 6.3-10.7 [facility] Comment on above: Performed By: #### B MP, CBC #### [facility] [address] [place] [address] [place] Platelets (Bld) [#/Vol] 226 10*3/uL Normal 150-450 [facility] Comment on above: Performed By: #### B MP, CBC #### [facility] [address] RBC (Bld) [#/Vol] 3.24 10*6/uL Low 3.60-5.00 [facility] Comment on above: Performed By: #### B MP, CBC #### [facility] [address] WBC (Bld) [#/Vol] 4.7 10*3/uL Normal 3.8-11.6 [facility] Comment on above: Performed By: #### B MP, CBC #### [facility] [address] Creatinine [Mass/volume] in Serum or PlasmaOrdered By: Adele Gorman on 04-24-2023 Creatinine [Mass/Vol] 0.95 mg/dL 0.60-1.20 [facility] Glucose [Mass/volume] in Ser um or PlasmaOrdered By: Adele Gorman on 04-24-2023 Glucose [Mass/Vol] 94 mg/dL 70-100 [facility] Comment on above: ADA recommended refe rence rangeRandom Glucose Reference Range is dependent on time and content of last meal. Glucose of more than 200 mg/dL in a nonstressed, ambulatory subject supports the diagnosis of Diabetes Mellitus. No Panel InformationOrdered By: Adele Gorman on 04-24-2023 Estimated GFR (CKD-EPI) > 60.0 mL/Min [facility] Creatinine Clearance (Chem 72.98 [facility] Potassium [Moles/volume] in Serum or PlasmaOrdered By: Adele Gorman on 04-24-2023 Potassium [Moles/Vol] 4.2 mmol/L 3.5-5.1 [facility] Serum or plasma anion gap de terminationOrdered By: Adele Gorman on 04-24-2023 Anion gap [Moles/Vol] 7.3 mmol/L 6.0-15.0 [facility] Sodium [Moles/volume] in Ser um or PlasmaOrdered By: Adele Gorman on 04-24-2023 Sodium [Moles/Vol] 140 mmol/L 136-145 [facility] Urea nitrogen [Mass/volume] in Serum or PlasmaOrdered By: Adele Gorman on 04-24-2023 Urea nitrogen [Mass/Vol] 14 mg/dL 7- [facility] Bacteria identified Aer cx N om (Unsp spec)Ordered By: Adele Gorman on 04-23-2023 Superficial Wound Culture Methicillin Resis Staph Aureus [facility] Superficial Wound Cultureon 04-23-2023 Superficial Wound Culture Results called at 1046 on 04/25/23 ORGANISM: Methicillin Resis Staph Aureus (O:MRSA) Quantity of Growth Moderate Growth Aerobic KEITH Charge (PCMIC38) ---- SUSCEPTIBILITY --- ORGANISM: O:MRSA ANTIBIOTIC INTERPRETATION KEITH Azithromycin S <2 Ceftaroline S 1 Ciprofloxacin R >2 Clindamycin S 0.5 Daptomycin S 1 Linezolid S 4 Oxacillin R >2 Penicillin R >2 Tetracycline S <4 Trimethoprim/Sulfamet hoxazole S <0.5 Vancomycin S 1 S = SUSCEPTIBLE I = INTERMEDIATE R = RESISTANT BLANK = DATA NOT AVAILABLE, OR DRUG NOT ADVISABLE OR TESTED R* = RESISTANCE DUE TO EXTENDED SPECTRUM BETA-LACTAMASES ESBL = EXTENDED SPECTRUM BETA-LACTAMASE TFG = THYMIDINE-DEPENDENT STRAIN TIMOTHY = BETA-LACTAMASE POSITIVE IB = INDUCIBLE BETA-LACTAMASE. APPEARS IN PLACE OF 'S' WITH SPECIES KNOWN TO POSSESS INDUCIBLE BETA-LACTAMASES. POTENTIALLY THEY MAY BECOME RESISTANT TO ALL B-LACTAM DRUGS. PERFORMED BY: [address] [place] [address] PATHOLOGIST ROLLER VARNISHER TODD PICKARD M.D. Normal [facility] Comment on above: Performed By: #### C USUP #### [facility] [address] [place] [address] [place] Cholesterol [Mass/volume] in Serum or PlasmaOrdered By: Miah Abreu on 04-15-2023 Cholesterol [Mass/Vol] 136 mg/dL 140-200 [facility] Comment on above: Chol less than 200 m g/dl low riskChol 201-239 mg/dl borderline riskChol 240 mg/dl and greater high risk Cholesterol in LDL Calc [Mas s/Vol]Ordered By: Miah Abreu on 04-15-2023 Cholesterol in LDL [Mass/Vol] 69 mg/dL 0-100 [facility] Comment on above: LDL ATP III CLASSIFI CATIONLDL less than 100 mg/dL OptimalLDL 100-129 mg/dL Near or above optimalLDL 130-159 mg/dL Borderline highLDL 160-189 mg/dL HighLDL greater than 189 mg/dL Very high Cholesterol in VLDL Calc [Ma ss/Vol]Ordered By: Miah Abreu on 04-15-2023 Cholesterol in VLDL [Mass/Vol] 24 mg/dL [facility] Lipid Panelon 04-15-2023 Cholesterol [Mass/Vol] 136 mg/dL Low 140-200 [facility] Comment on above: Result Comment: Chol less than 200 mg/dl low risk Chol 201-239 mg/dl borderline risk Chol 240 mg/dl and greater high risk Performed By: #### L IPID, [id number], TSH3 [id number] #### [facility] [address] [place] [id number] [place] Cholesterol in HDL [Mass/Vol] 43 mg/dL Normal 23-92 [facility] Comment on above: Result Comment: HDL CHOL ATP-III CLASSIFICATION Cardiovascular Risk HDL > or equal to 60 mg/dL LOW HDL < 40 mg/dL HIGH Performed By: #### L IPID, [id number], TSH3 [id number] #### [facility] [address] [place] [address] [place] Cholesterol.total/Rachel sterol in HDL [Mass ratio] 3.2 {ratio} Normal <5.0 [facility] Comment on above: Performed By: #### L IPID, [id number], TSH3 wRFLX #### [facility] [address] LDL Cholesterol,Calculated 69 mg/dL Normal 0-100 [facility] Comment on above: Result Comment: LDL ATP III CLASSIFICATION LDL less than 100 mg/dL Optimal LDL 100-129 mg/dL Near or above optimal LDL 130-159 mg/dL Borderline high LDL 160-189 mg/dL High LDL greater than 189 mg/dL Very high Performed By: #### L IPID, [id number], TSH3 wRFLX #### [facility] [address] Triglyceride w/Reflex 122 mg/dL Normal 0-149 [facility] Comment on above: Result Comment: TRIG ATP III CLASSIFICATION TRIG less than 150 mg/dL Normal TRIG 150-199 mg/dL Borderline high TRIG 200-500 mg/dL High TRIG greater than 500 mg/dL Very high Standard traceable to the Center for Disease Conrtrol and Prevention (CDC) test method. Performed By: #### L IPID, [id number], TSH3 wRFLX #### [facility] [address] VLDL CHOLESTEROL 24 mg/dL Normal [facility] Comment on above: Performed By: #### L IPID, [id number], TSH3 wRFLX #### [facility] [address] Serum or plasma high density lipoprotein (HDL) cholesterol measurementOrdered By: Miah Abreu on 04-15-2023 Cholesterol in HDL [Mass/Vol] 43 mg/dL 23-92 [facility] Comment on above: HDL CHOL ATP-III CLA SSIFICATION Cardiovascular RiskHDL > or equal to 60 mg/dL LOWHDL < 40 mg/dL HIGH Serum or plasma total choles terol/high density lipoprotein (HDL) cholesterol mass ratOrdered By: Miah Abreu on 04-15-2023 Cholesterol.total/Rachel sterol in HDL [Mass ratio] 3.2 {ratio} <5.0 [facility] Thyroid Stim Hormone w/Rflxo n 07-14-2023 Thyroid Stim Hormone w/Rflx 1.98 u[iU]/mL Normal 0.45-5.33 [facility] Comment on above: Performed By: #### L IPID, [id number], TSH3 wRFLX #### [facility] [address] Thyrotropin [Units/volume] i n Serum or PlasmaOrdered By: Miah Abreu on 04-15-2023 TSH Qn 1.98 m[IU]/L 0.45-5.33 [facility] Triglyceride [Mass/volume] i n Serum or PlasmaOrdered By: Miah Abreu on 04-15-2023 Triglyceride [Mass/Vol] 122 mg/dL 0-149 [facility] Comment on above: TRIG ATP III CLASSIF ICATIONTRIG less than 150 mg/dL NormalTRIG 150-199 mg/dL Borderline highTRIG 200-500 mg/dL High TRIG greater than 500 mg/dL Very highStandard traceable to the Center for Disease Conrtrol and Prevention (CDC) test method. Vitamin D 25 Hydroxy Totalon 04-15-2023 Vitamin D 25 Hydroxy Total 44.6 ng/mL Normal 30-100 [facility] Comment on above: Result Comment: MARINA MIN D STATUS 25(OH)VITAMIN D RANGE (ng/mL) Deficient <20 Insufficient 20 to <30 Sufficient 30 to 100 Reference: Roque MF,Jhony NC, Janina LAYTON, et al. Evaluation,treatment, and prevention of vitamin D deficiency; an Endocrine Society clinical practice guideline. JCEM. 2010; 96(7):1911-30. PERFORMED BY: [place] [address] PATHOLOGIST ROLLER VARNISHER TODD PICKARD M.D. Performed By: #### B MP, CBC #### [facility] [address] [place] [address] Vitamin D+Metabolites [Mass/ volume] in Serum or PlasmaOrdered By: Miah Abreu on 04-15-2023 Vitamin D+Metabolites [Mass/Vol] 44.6 ng/mL 30-100 [facility] Comment on above: VITAMIN D STATUS 25( [place])VITAMIN D RANGE (ng/mL) Deficient <20 Insufficient 20 to <30Sufficient 30 to 100Reference: Roque MF,Jhony NC, Janina LAYTON, et al. Evaluation,treatment, and prevention of vitamin D deficiency; an Endocrine Society clinical practice guideline. JCEM. 2010; 96(7):1911-30. CBC AUTO DIFFon 09-07-2022 BASO # 0.0 103/ul Normal 0.0-0.1 [facility] Comment on above: Performed By: #### E TH, SALYC, ACET, CMP #### [facility] [address] [place] [address] Dr. Erlinda Rivera Basophils/100 WBC (Bld) 0.3 % Normal 0.2-2.0 [facility] Comment on above: Performed By: #### E TH, SALYC, ACET, CMP #### [facility] [address] [place] [address] Dr. Erlinda Rivera EO # 0.3 103/ul Normal 0.0-0.7 [facility] Comment on above: Performed By: #### E TH, SALYC, ACET, CMP #### [facility] [address] [place] [address] Dr. Erlinda Rivera Eosinophils/100 WBC (Bld) 3.7 % Normal 0.9-7.0 [facility] Comment on above: Performed By: #### E TH, SALYC, ACET, CMP #### [facility] [address] [place] [address] Dr. Erlinda Rivera Erythrocyte distribution width (RBC) [Ratio] 12.5 % Normal 11.0-15.0 [facility] Comment on above: Performed By: #### E TH, SALYC, ACET, CMP #### [facility] [address] [place] [address] Dr. Erlinda Rivera Hematocrit (Bld) [Volume fraction] 37.5 % Normal 36.0-48.0 [facility] Comment on above: Performed By: #### E TH, SALYC, ACET, CMP #### [facility] [address] [place] [address] Dr. Erlinda Rivera Hemoglobin (Bld) [Mass/Vol] 12.8 g/dL Normal 12.0-16.0 [facility] Comment on above: Performed By: #### E TH, SALYC, ACET, CMP #### [facility] [address] [place] [address] Dr. Erlinda Rivera IG # 0.02 10e3/ul Normal 0.00-0.03 [facility] Comment on above: Performed By: #### E TH, SALYC, ACET, CMP #### [facility] [address] [place] [address] Dr. Erlinda Rivera IG % 0.3 % Normal 0.0-0.5 [facility] Comment on above: Performed By: #### E , SALYC, ACET, CMP #### [facility] [address] [place] [address] Dr. Erlinda Rivera LYMPH # 2.0 103/ul Normal 1.2-3.8 [facility] Comment on above: Performed By: #### E , SALYC, ACET, CMP #### [facility] [address] [place] [address] Dr. Erlinda Rivera Lymphocytes/100 WBC (Bld) 28.8 % Normal 20.5-60.0 [facility] Comment on above: Performed By: #### E TH, SALYC, ACET, CMP #### [facility] [address] [place] [address] Dr. Erlinda Rivera MANUAL DIFF REQ NO Normal [facility] Comment on above: Performed By: #### E TH, SALYC, ACET, CMP #### [facility] [address] [place] [address] Dr. Erlinda Rivera MCH (RBC) [Entitic mass] 33.2 pg Normal 26.7-34.0 [facility] Comment on above: Performed By: #### E TH, SALYC, ACET, CMP #### [facility] [address] [place] [address] Dr. Erlinda Rivera MCHC (RBC) [Mass/Vol] 34.1 g/dL Normal 29.9-35.2 [facility] Comment on above: Performed By: #### E TH, SALYC, ACET, CMP #### [facility] [address] [place] [address] Dr. Erlinda Rivera MCV (RBC) [Entitic vol] 97.2 fL Normal 81.0-99.0 [facility] Comment on above: Performed By: #### E TH, SALYC, ACET, CMP #### [facility] [address] [place] [address] Dr. Erlinda Rivera MONO # 0.6 103/ul Normal 0.3-0.8 [facility] Comment on above: Performed By: #### E TH, SALYC, ACET, CMP #### [facility] [address] [place] [address] Dr. Erlinda Rivera Monocytes/100 WBC (Bld) 7.8 % Normal 1.7-12.0 [facility] Comment on above: Performed By: #### E , SALYC, ACET, CMP #### [facility] [address] [place] [address] Dr. Erlinda Rivera NEUT # 4.2 103/ul Normal 1.4-6.5 [facility] Comment on above: Performed By: #### E , SALYC, ACET, CMP #### [facility] [address] [place] [address] Dr. Erlinda Rivera Neutrophils/100 WBC (Bld) 59.1 % Normal 43.0-75.0 [facility] Comment on above: Performed By: #### E TH, SALYC, ACET, CMP #### [facility] [address] [place] [address] Dr. Erlinda Rivera Platelet mean volume (Bld) [Entitic vol] 10.2 fL Normal 9.5-13.5 [facility] Comment on above: Performed By: #### E TH, SALYC, ACET, CMP #### [facility] [address] [place] [address] Dr. Erlinda Rivera PLT 270 103/ul Normal 150-450 [facility] Comment on above: Performed By: #### E TH, SALYC, ACET, CMP #### [facility] [address] [place], [place] [address] Dr. Erlinda Rivera RBC 3.86 106/ul Critically low 4.20-5.40 [facility] Comment on above: Performed By: #### E TH, REJI SCOTT, CMP #### [facility] [address] [place], [place] [address] Dr. Erlinda Rivera WBC 7.0 103/ul Normal 4.0-11.0 [facility] Comment on above: Performed By: #### E TH, REJI SCOTT, CMP #### [facility] [address] [place], [place] [address] ABD/PELVIS WO CONon 09-07 CT ABD/PELVIS WO CON CT SCAN OF THE ABDOMEN AND PELVIS WITHOUT CONTRAST, 09/07/2022 3:59 PM EST COMPARISON: CT scan of the abdomen and pelvis, 03/19/2022 CLINICAL HISTORY: CALCULUS OF KIDNEY. Left-sided pain, worse today and bilateral flank pain. TECHNIQUE: 3 mm axial images performed through the abdomen and pelvis without contrast. 3 mm sagittal and coronal MPR reconstructions performed. Dose reduction techniques were achieved by using automated exposure control and/or adjustment of mA and/or kV according to patient size and/or use of iterative reconstruction technique. ABDOMINAL CT SCAN FINDINGS: Minimal linear atelectasis seen anteriorly in the left lower lobe. Visualized heart is normal in size. No renal or ureteral calculi identified. Small calcification just anterior to the right ureter in the lower abdomen also seen on prior exam (image #69, series 2). Remaining nonenhanced abdominal solid organs and gallbladder are unremarkable in appearance. Pelvic CT findings: Prior hysterectomy. Nondistended urinary bladder is unremarkable. No bowel obstruction. Visualized appendix is normal (image #70, series 3). No acute osseous abnormality. IMPRESSION: 1. No acute abnormality of the abdomen and pelvis identified. No renal or ureteral calculi. 2. Minimal linear atelectasis in the left lower lobe. 3. Prior hysterectomy. 4. No bowel obstruction. Appendix is normal. Electronically authenticated by: Tressa BROWN Date: 2022-09-07 17:02 Normal [facility] CULTURE URINEon 09-07-2022 CULTURE URINE Culture Observations : NO GROWTH. Normal [facility] Comment on above: Performed By: #### C VDTB #### [facility] [address] [place] [address] Dr. Erlinda Rivera ER URINE PROFILEon 2 Bilirubin Ql (U) Negative Normal NEGATIVE [facility] Comment on above: Performed By: #### Sakina DE PAZ UMICRO #### [facility] [address] [place] [address] Dr. Erlinda Rivera Clarity (U) CLEAR Normal CLEAR [facility] Comment on above: Performed By: #### Sakina DE PAZ UMICRO #### [facility] [address] [place] [address] Dr. Erlinda Rivera Color (U) LT. YELLOW Normal YELLOW [facility] Comment on above: Performed By: #### Sakina DE PAZ UMICRO #### [facility] [address] [place] [address] Dr. Erlinda ALFONSO A micrscopic examination will be performed if indicated. Normal [facility] Comment on above: Performed By: #### Sakina DE PAZ UMICRO #### [facility] [address] [place] [address] Dr. Erlinda Rivera Glucose Ql (U) Negative Normal NEGATIVE [facility] Comment on above: Performed By: #### Sakina DE PAZ UMICRO #### [facility] [address] [place] [address] Dr. Erlinda Rivera Hemoglobin Ql (U) Negative Normal NEGATIVE [facility] Comment on above: Performed By: #### Sakina DE PAZ UMICRO #### [facility] [address] [place] [address] Dr. Erlinda Rivera Ketones Ql (U) Negative Normal NEGATIVE [facility] Comment on above: Performed By: #### Sakina DE PAZ UMICRO #### [facility] [address] [place] [address] Dr. Erlinda Rivera LEUKOCYTES MODERATE Abnormal NEGATIVE [facility] Comment on above: Performed By: #### Sakina DE PAZ UMICRO #### [facility] [address] [place] [address] Dr. Erlinda Rivera Nitrite Ql (U) Negative Normal NEGATIVE [facility] Comment on above: Performed By: #### Sakina DE PAZ UMICRO #### [facility] [address] [place] [address] Dr. Erlinda Rivera pH (U) 6.0 [pH] Normal 5-9 [facility] Comment on above: Performed By: #### Sakina DE PAZ, UMICRO #### [facility] [address] [place] [address] Dr. Erlinda Rivera SPEC GRAVITY 1.025 Normal 1.005-<=1.025 [facility] Comment on above: Performed By: #### Sakina DE PAZ, UMICRO #### [facility] [address] [place] [address] Dr. Erlinda Rivera UA PROTEIN Negative Normal NEGATIVE/ TRACE [facility] Comment on above: Performed By: #### Sakina DE PAZ UMICRO #### [facility] [address] [place] [address] Dr. Erlinda Rivera UR MICRO IND INDICATED Normal [facility] Comment on above: Performed By: #### Sakina DE PAZ UMICRO #### [facility] [address] [place] [address] Dr. Erlinda Rivera Urobilinogen Qn (U) 0.2 {Shannan'U}/dL Normal 0.2 - 1. 0 [facility] Comment on above: Performed By: #### Sakina DE PAZ, UMICRO #### [facility] [address] [place] [address] Dr. Erlinda Rivera LIPASEon 09-07-2022 Lipase [Catalytic activity/Vol] 173.0 U/L Normal 73.0-393.0 [facility] Comment on above: Performed By: #### E TH, SALYC, ACET, CMP #### [facility] [address] [place] [address] Dr. Erlinda Rivera PREG HCG QUALon 09-07-2022 , QUAL Negative Normal NEGATIVE [facility] Comment on above: Performed By: #### E TH, SALYC, ACET, CMP #### [facility] [address] [place] [address] Dr. Erlinda Rivera PROF 14(COMP METB)on 022 Albumin [Mass/Vol] 3.8 g/dL Normal 3.4-5.0 [facility] Comment on above: Performed By: #### E TH, SALYC, ACET, CMP #### [facility] [address] [place] [address] [address] Erlinda Rivera Albumin/Globulin [Mass ratio] 0.9 {ratio} Normal [facility] Comment on above: Performed By: #### E TH, SALYC, ACET, CMP #### [facility] [address] [place] [address] [address] Erlinda Rivera ALP [Catalytic activity/Vol] 75 U/L Normal 46-116 [facility] Comment on above: Performed By: #### E TH, SALYC, ACET, CMP #### [facility] [address] [place] [address] Dr. Erlinda Rivera ALT [Catalytic activity/Vol] 10 U/L Critically low 14-59 [facility] Comment on above: Performed By: #### E TH, SALYC, ACET, CMP #### [facility] [address] [place] [address] [address] Erlinda Rivera Anion gap [Moles/Vol] 9.7 mmol/L Normal [facility] Comment on above: Performed By: #### E TH, SALYC, ACET, CMP #### [facility] [address] [place] [address] [address] Erlinda Rivera AST [Catalytic activity/Vol] 21 U/L Normal 15-37 [facility] Comment on above: Performed By: #### E TH, SALYC, ACET, CMP #### [facility] [address] [place] [address] [address] Erlinda Rivera Bilirubin [Mass/Vol] 0.4 mg/dL Normal 0.2-1.0 [facility] Comment on above: Performed By: #### E TH, SALYC, ACET, CMP #### [facility] [address] [place] [address] [address] Erlinda Rivera Calcium [Mass/Vol] 8.8 mg/dL Normal 8.5-10.1 [facility] Comment on above: Performed By: #### E TH, SALYC, ACET, CMP #### [facility] [address] [place] [address] Dr. Erlinda Rivera Chloride [Moles/Vol] 103 mmol/L Normal 98-107 [facility] Comment on above: Performed By: #### E TH, SALYC, ACET, CMP #### [facility] [address] [place] [address] Dr. Erlinda Rivera CO2 [Moles/Vol] 28.8 mmol/L Normal 21.0-32.0 [facility] Comment on above: Performed By: #### E TH, SALYC, ACET, CMP #### [facility] [address] [place] [address] Dr. Erlinda Rivera Creatinine [Mass/Vol] 0.86 mg/dL Normal 0.55-1.02 [facility] Comment on above: Performed By: #### E , SALYC, ACET, CMP #### [facility] [address] [place] [address] Dr. Erlinda Rivera EGFR-AF CITIZEN OF [place] >60 Normal >=60 [facility] Comment on above: Performed By: #### E , SALYC, ACET, CMP #### [facility] [address] [place] [address] Dr. Erlinda Rivera EGFR-NON AF CITIZEN OF [place] >60 Normal >=60 [facility] Comment on above: Performed By: #### E , SALYC, ACET, CMP #### [facility] [address] [place] [address] Dr. Erlinda Rivera Globulin (S) [Mass/Vol] 4.1 g/dL Normal [facility] Comment on above: Performed By: #### E TH, SALYC, ACET, CMP #### [facility] [address] [place] [address] Dr. Erlinda Rivera Glucose [Mass/Vol] 79 mg/dL Normal 74-106 [facility] Comment on above: Performed By: #### E TH, SALYC, ACET, CMP #### [facility] [address] [place] [address] Dr. Erlinda Rivera Potassium [Moles/Vol] 4.5 mmol/L Normal 3.5-5.1 [facility] Comment on above: Performed By: #### E TH, SALYC, ACET, CMP #### [facility] [address] [place] [address] Dr. Erlinda Rivera Protein [Mass/Vol] 7.9 g/dL Normal 6.4-8.2 [facility] Comment on above: Performed By: #### E TH, SALYC, ACET, CMP #### [facility] [address] [place] [address] Dr. Erlinda Rivera Sodium [Moles/Vol] 137 mmol/L Normal 136-145 [facility] Comment on above: Performed By: #### E TH, SALYC, ACET, CMP #### [facility] [address] [place] [address] Dr. Erlinda Rivera Urea nitrogen [Mass/Vol] 12.0 mg/dL Normal 7.0-18.0 [facility] Comment on above: Performed By: #### E TH, SALYC, ACET, CMP #### [facility] [address] [place] [address] Dr. Erlinda Rivera Urea nitrogen/Creatinine [Mass ratio] 14.0 mg/mg Normal [facility] Comment on above: Performed By: #### E TH, SALYC, ACET, CMP #### [facility] [address] [place] [address] Dr. Erlinda Rivera URINE MICROSCOPIC ONLYon BACTERIA SMALL Abnormal NONE SEEN [facility] Comment on above: Performed By: #### E RUR, UMICRO #### [facility] [address] [place] [address] Dr. Erlinda Rivera Bacteria identified Cx Nom (U) INDICATED Normal [facility] Comment on above: Performed By: #### E RUR, UMICRO #### [facility] [address] [place] [address] Dr. Erlinda Rivera CAST NONE SEEN Normal NONE SEEN [facility] Comment on above: Performed By: #### E RUR, UMICRO #### [facility] [address] [place] [address] [address] Erlinda Rivera Crystals LM Nom (Urine sed) NONE SEEN Normal NONE SEEN [facility] Comment on above: Performed By: #### E RUR, UMICRO #### [facility] [address] [place] [address] [address] Erlinda Rivera Epithelial cells LM Ql (Urine sed) MODERATE Abnormal NONE SEEN /RARE [facility] Comment on above: Performed By: #### E RUR, UMICRO #### [facility] [address] [place] [address] [address] Erlinda Rivera MUCOUS SMALL Abnormal NONE SEEN [facility] Comment on above: Performed By: #### E RUR, UMICRO #### [facility] [address] [place] [address] [address] Erlinda Rivera RBC 2-5 Abnormal 0-2 [facility] Comment on above: Performed By: #### Sakina DE PAZ, UMICRO #### [facility] [address] [place] [address] [address] Erlinda Rivera WBC 10-20 Abnormal NONE SEEN [facility] Comment on above: Performed By: #### Sakina DE PAZ, UMICRO #### [facility] [address] [place] [address] [address] Erlinda Rivera Bilirubin Test strip Ql (U)O rdered By: Olvin Rollins on 08-31-2022 Bilirubin Ql (U) Negative Negative [facility] Color Auto (U)Ordered By: Ab filiberto Rollins on 08-31-2022 Color (U) Yellow Yellow [facility] Ketones Auto test strip (U) [Mass/Vol]Ordered By: Olvin Rollins on 08-31-2022 Ketones (U) [Mass/Vol] Negative Negative [facility] Nitrite Test strip Ql (U)Ord ered By: Olvin Rollins on 08-31-2022 Nitrite Ql (U) Negative Negative [facility] Protein Auto test strip (U) [Mass/Vol]Ordered By: Olvin Rollins on 08-31-2022 Protein (U) [Mass/Vol] Negative Negative [facility] Specific gravity Auto test s trip (U) [Rel density]Ordered By: Olvin Rollins on 08-31-2022 Specific gravity (U) [Rel density] 1.006 1.001-1.030 [facility] Urine clarity by refractomet ry automatedOrdered By: Olvin Rollins on 08-31-2022 Clarity Refractometry automated (U) Clear Clear [facility] Urine glucose measurement by automated test strip (mass/volume)Ordered By: Olvin Rollins on 08-31-2022 Glucose Auto test strip (U) [Mass/Vol] Normal mg/dL Normal [facility] Urine hemoglobin detection b y automated test stripOrdered By: Olvin Rollins on 08-31-2022 Hemoglobin Auto test strip Ql (U) Negative Negative [facility] Urine leukocyte esterase det ection by automated test stripOrdered By: Olvin Rollins on 08-31-2022 Leukocyte esterase Auto test strip Ql (U) Negative Negative [facility] Urobilinogen Auto test strip (U) [Mass/Vol]Ordered By: Olvin Rollins on 08-31-2022 Urobilinogen (U) [Mass/Vol] Normal mg/dL Normal [facility] pH Auto test strip (U)Ordere d By: Olvin Rollins on 08-31-2022 pH (U) 6.5 [pH] 5.0-9.0 [facility] Cholesterol [Mass/volume] in Serum or PlasmaOrdered By: Miah Abreu on 08-30-2022 Cholesterol [Mass/Vol] 153 mg/dL 140-200 [facility] Comment on above: Chol less than 200 m g/dl low riskChol 201-239 mg/dl borderline riskChol 240 mg/dl and greater high risk Cholesterol in LDL Calc [Mas s/Vol]Ordered By: Maih Abreu on 08-30-2022 Cholesterol in LDL [Mass/Vol] 82 mg/dL 0-100 [facility] Comment on above: LDL ATP III CLASSIFI CATIONLDL less than 100 mg/dL OptimalLDL 100-129 mg/dL Near or above optimalLDL 130-159 mg/dL Borderline highLDL 160-189 mg/dL HighLDL greater than 189 mg/dL Very high Cholesterol in VLDL Calc [Ma ss/Vol]Ordered By: Miah Abreu on 08-30-2022 Cholesterol in VLDL [Mass/Vol] 10 mg/dL [facility] No Panel InformationOrdered By: Miah Abreu on 08-30-2022 25-Hydroxy Vitamin D Total 40.5 ng/mL 30-100 [facility] Comment on above: VITAMIN D STATUS 25( [place])VITAMIN D RANGE (ng/mL) Deficient <20 Insufficient 20 to <30Sufficient 30 to 100Reference: Roque MF,Jhony MEDINA, Janina LAYTON, et al. Evaluation,treatment, and prevention of vitamin D deficiency; an Endocrine Society clinical practice guideline. JCEM. 2010; 96(7):1911-30. Serum or plasma high density lipoprotein (HDL) cholesterol measurementOrdered By: Miah Abreu on 08-30-2022 Cholesterol in HDL [Mass/Vol] 61 mg/dL 35-85 [facility] Comment on above: HDL CHOL ATP-III CLA SSIFICATION Cardiovascular RiskHDL > or equal to 60 mg/dL LOWHDL < 40 mg/dL HIGH Serum or plasma total choles terol/high density lipoprotein (HDL) cholesterol mass ratOrdered By: Miah Abreu on 08-30-2022 Cholesterol.total/Rachel sterol in HDL [Mass ratio] 2.5 {ratio} <5.0 [facility] TSH DL <= 0.005 mIU/L QnOrde red By: Miah Abreu on 08-30-2022 TSH Qn 0.98 m[IU]/L 0.45-5.33 [facility] Triglyceride [Mass/volume] i n Serum or PlasmaOrdered By: Miah Abreu on 08-30-2022 Triglyceride [Mass/Vol] 52 mg/dL 35-149 [facility] Comment on above: TRIG ATP III CLASSIF ICATIONTRIG less than 150 mg/dL NormalTRIG 150-199 mg/dL Borderline highTRIG 200-500 mg/dL High TRIG greater than 500 mg/dL Very highStandard traceable to the Center for Disease Conrtrol and Prevention (CDC) test method. Cholesterol [Mass/volume] in Serum or PlasmaOrdered By: iMah Abreu on 06-07-2022 Cholesterol [Mass/Vol] 156 mg/dL 140-200 [facility] Comment on above: Chol less than 200 m g/dl low risk Chol 201-239 mg/dl borderline risk Chol 240 mg/dl and greater high risk Chol less than 200 m g/dl low riskChol 201-239 mg/dl borderline riskChol 240 mg/dl and greater high risk Cholesterol in LDL Calc [Mas s/Vol]Ordered By: Miah Abreu on 06-07-2022 Cholesterol in LDL [Mass/Vol] 89 mg/dL 0-100 [facility] Comment on above: LDL ATP III CLASSIFI CATION LDL less than 100 mg/dL Optimal LDL 100-129 mg/dL Near or above optimal LDL 130-159 mg/dL Borderline high LDL 160-189 mg/dL High LDL greater than 189 mg/dL Very high LDL ATP III CLASSIFI CATIONLDL less than 100 mg/dL OptimalLDL 100-129 mg/dL Near or above optimalLDL 130-159 mg/dL Borderline highLDL 160-189 mg/dL HighLDL greater than 189 mg/dL Very high Cholesterol in VLDL Calc [Ma ss/Vol]Ordered By: Miah Abreu on 06-07-2022 Cholesterol in VLDL [Mass/Vol] 20 mg/dL [facility] No Panel InformationOrdered By: Miah Abreu on 06-07-2022 25-Hydroxy Vitamin D Total 62.5 ng/mL 30-100 [facility] Comment on above: VITAMIN D STATUS 25( [place])VITAMIN D RANGE (ng/mL) Deficient <20 Insufficient 20 to <30 Sufficient 30 to 100 Reference: Jhony Fu, Janina LAYTON, et al. Evaluation,treatment, and prevention of vitamin D deficiency; an Endocrine Society clinical practice guideline. JCEM. 2010; 96(7):1911-30. VITAMIN D STATUS 25( [place])VITAMIN D RANGE (ng/mL) Deficient <20 Insufficient 20 to <30Sufficient 30 to 100Reference: Jhony Fu, Janina LAYTON, et al. Evaluation,treatment, and prevention of vitamin D deficiency; an Endocrine Society clinical practice guideline. JCEM. 2010; 96(7):1911-30. Serum or plasma high density lipoprotein (HDL) cholesterol measurementOrdered By: Miah Abreu on 06-07-2022 Cholesterol in HDL [Mass/Vol] 47 mg/dL 35-85 [facility] Comment on above: HDL CHOL ATP-III CLA SSIFICATION Cardiovascular Risk HDL > or equal to 60 mg/dL LOW HDL < 40 mg/dL HIGH HDL CHOL ATP-III CLA SSIFICATION Cardiovascular RiskHDL > or equal to 60 mg/dL LOWHDL < 40 mg/dL HIGH Serum or plasma total choles terol/high density lipoprotein (HDL) cholesterol mass ratOrdered By: Miah Abreu on 06-07-2022 Cholesterol.total/Rachel sterol in HDL [Mass ratio] 3.3 {ratio} <5.0 [facility] TSH DL <= 0.005 mIU/L QnOrde red By: Miah Abreu on 06-07-2022 TSH Qn 1.54 m[IU]/L 0.45-5.33 [facility] Triglyceride [Mass/volume] i n Serum or PlasmaOrdered By: Miah Abreu on 06-07-2022 Triglyceride [Mass/Vol] 101 mg/dL 35-149 [facility] Comment on above: TRIG ATP III CLASSIF ICATION TRIG less than 150 mg/dL Normal TRIG 150-199 mg/dL Borderline high TRIG 200-500 mg/dL High TRIG greater than 500 mg/dL Very high Standard traceable to the Center for Disease Conrtrol and Prevention (CDC) test method. TRIG ATP III CLASSIF ICATIONTRIG less than 150 mg/dL NormalTRIG 150-199 mg/dL Borderline highTRIG 200-500 mg/dL High TRIG greater than 500 mg/dL Very highStandard traceable to the Center for Disease Conrtrol and Prevention (CDC) test method. ACETAMINOPHENon 06-06-2022 Acetaminophen [Mass/Vol] ug/mL Critically low 10.0-30.0 [facility] Comment on above: Performed By: #### E TH, SALYC, ACET, CMP #### [facility] [address] [place] [address] Dr. Erlinda Rivera CBC AUTO DIFFon 06-06-2022 BASO # 0.0 103/ul Normal 0.0-0.1 [facility] Comment on above: Performed By: #### C BC #### [facility] [address] [place] [address] Dr. Erlinda Rivera Basophils/100 WBC (Bld) 0.3 % Normal 0.2-2.0 [facility] Comment on above: Performed By: #### C BC #### [facility] [address] [place] [address] Dr. Erlinda Rivera EO # 0.1 103/ul Normal 0.0-0.7 [facility] Comment on above: Performed By: #### C BC #### [facility] [address] [place] [address] Dr. Erlinda Rivera Eosinophils/100 WBC (Bld) 1.7 % Normal 0.9-7.0 [facility] Comment on above: Performed By: #### C BC #### [facility] [address] [place] [address] Dr. Erlinda Rivera Erythrocyte distribution width (RBC) [Ratio] 11.9 % Normal 11.0-15.0 [facility] Comment on above: Performed By: #### C BC #### [facility] [address] [place] [address] Dr. Erlinda Rivera Hematocrit (Bld) [Volume fraction] 37.3 % Normal 36.0-48.0 [facility] Comment on above: Performed By: #### C BC #### [facility] [address] [place] [address] Dr. Erlinda Rivera Hemoglobin (Bld) [Mass/Vol] 12.8 g/dL Normal 12.0-16.0 [facility] Comment on above: Performed By: #### C BC #### [facility] [address] [place] [address] Dr. Erlinda Rivera IG # 0.01 10e3/ul Normal 0.00-0.03 [facility] Comment on above: Performed By: #### C BC #### [facility] [address] [place] [address] Dr. Erlinda Rivera IG % 0.2 % Normal 0.0-0.5 [facility] Comment on above: Performed By: #### C BC #### [facility] [address] [place] [address] Dr. Erlinda Rivera LYMPH # 1.5 103/ul Normal 1.2-3.8 [facility] Comment on above: Performed By: #### C BC #### [facility] [address] [place] [address] Dr. Erlinda Rivera Lymphocytes/100 WBC (Bld) 25.7 % Normal 20.5-60.0 [facility] Comment on above: Performed By: #### C BC #### [facility] [address] [place] [address] Dr. Erlinda Rivera MANUAL DIFF REQ NO Normal [facility] Comment on above: Performed By: #### C BC #### [facility] [address] [place] [address] Dr. Erlinda Rivera MCH (RBC) [Entitic mass] 33.3 pg Normal 26.7-34.0 [facility] Comment on above: Performed By: #### C BC #### [facility] [address] [place] [address] Dr. Erlinda Rivera MCHC (RBC) [Mass/Vol] 34.3 g/dL Normal 29.9-35.2 [facility] Comment on above: Performed By: #### C BC #### [facility] [address] [place] [address] Dr. Erlinda Rivera MCV (RBC) [Entitic vol] 97.1 fL Normal 81.0-99.0 [facility] Comment on above: Performed By: #### C BC #### [facility] [address] [place] [address] Dr. Erlinda Rivera MONO # 0.5 103/ul Normal 0.3-0.8 [facility] Comment on above: Performed By: #### C BC #### [facility] [address] [place] [address] Dr. Erlinda Rivera Monocytes/100 WBC (Bld) 8.2 % Normal 1.7-12.0 [facility] Comment on above: Performed By: #### C BC #### [facility] [address] [place] [address] Dr. Erlinda Rivera NEUT # 3.7 103/ul Normal 1.4-6.5 [facility] Comment on above: Performed By: #### C BC #### [facility] [address] [place] [address] Dr. Erlinda Rivera Neutrophils/100 WBC (Bld) 63.9 % Normal 43.0-75.0 [facility] Comment on above: Performed By: #### C BC #### [facility] [address] [place] [address] Dr. Erlinda Rivera Platelet mean volume (Bld) [Entitic vol] 10.7 fL Normal 9.5-13.5 [facility] Comment on above: Performed By: #### C BC #### [facility] [address] [place] [address] Dr. Erlinda Rivera PLT 224 103/ul Normal 150-450 [facility] Comment on above: Performed By: #### C BC #### [facility] [address] [place] [address] Dr. Erlinda Rivera RBC 3.84 106/ul Critically low 4.20-5.40 [facility] Comment on above: Performed By: #### C BC #### [facility] [address] [place] [address] Dr. Erlinda Rivera WBC 5.7 103/ul Normal 4.0-11.0 [facility] Comment on above: Performed By: #### C BC #### [facility] [address] [place] [address] Dr. Erlinda Rivera CULTURE URINEon 06-06-2022 CULTURE URINE Culture Observations : NO GROWTH. Normal [facility] Comment on above: Performed By: #### C VDTBH #### [facility] [address] [place] [address] Dr. Erlinda Rivera [facility]on SARS-CoV-2 (COVID-19) RNA TISHA+probe Ql (Unsp spec) Not detected Normal NOT DETECTED [facility] Comment on above: Result Comment: When diagnostic testing is negative, the possibility of a false negative should be considered in the context of a patient's recent exposures and the presence of clinical signs and symptoms consistent with SARS-CoV-2. This test is not yet approved or cleared by the [place] FDA. When there are no FDA-approved or cleared tests available, and other criteria are met, FDA can make tests available under an emergency access mechanism called an Emergency Use Authorization (EUA). The EUA for this test is supported by the Instrumentation And Controls Designer of Health and Human Service's declaration that circumstances exist to justify the emergency use of in vitro diagnostics for the detection and/or diagnosis of the virus that causes COVID-19. This EUA will remain in effect for the duration of the COVID-19 declaration justifying emergency of IVDs, unless it is terminated or revoked by the FDA (after which the test may no longer be used). Performed By: #### C VDTB #### [facility] [address] [place] [address] Dr. Erlinda Rivera DRUG SCREEN RAPID (URINE)on 06-06-2022 AMP Negative Normal NEGATIVE [facility] Comment on above: Performed By: #### SEBASTIÁN SOTELORO #### [facility] [address] [place] [address] Dr. Erlinda Rivera BAR Negative Normal NEGATIVE [facility] Comment on above: Performed By: #### E ZANDRA UMICRO #### [facility] [address] [place] [address] Dr. Erlinda Rivera BUP Negative Normal NEGATIVE [facility] Comment on above: Performed By: #### ESTHER SOTELOICRO #### [facility] [address] [place] [address] Dr. Erlinda Rivera BZO Positive Abnormal NEGATIVE [facility] Comment on above: Performed By: #### E ZANDRA UMICRO #### [facility] [address] [place] [address] Dr. Erlinda Rivera DOUGLAS Positive Abnormal NEGATIVE [facility] Comment on above: Performed By: #### GHASSAN SOTELO #### [facility] [address] [place] [address] Dr. Erlinda Rivera CUT-OFFS SEE BELOW Normal [facility] Comment on above: Result Comment: AMP (Amphetamine): 500ng/mL, BAR (Barbituates): 200 ng/mL, BZO (Benzodiazepines): 150 ng/mL, BUP (Buprenorphine): 10 ng/mL, DOUGLAS (Cocaine): 150 ng/mL, mAMP (Methamphetamine): 500 ng/mL, MTD (Methadone): 200 ng/mL, OPI (Opiates): 100 ng/mL, OXY (Oxycodone): 100 ng/mL, PCP (Phencyclidine): 25 ng/mL, PPX (Propoxyphene): 300 ng/mL, THC (Cannabinoids): 50 ng/mL, TCA (Trycyclic Antidepressants): 300 ng/mL Performed By: #### SEBASTIÁN SOTELORO #### [facility] [address] [place] [address] Dr. Erlinda Rivera DRUG CUT HEADER DRUG CLASS TEST SYSTEM CUT-OFF CONCENTRATIONS ARE FOLLOWS: Normal [facility] Comment on above: Performed By: #### GHASSAN SOTELO #### [facility] [address] [place] [address] Dr. Erlinda Rivera mAMP Negative Normal NEGATIVE [facility] Comment on above: Performed By: #### SEBASTIÁN SOTELORO #### [facility] [address] [place] [address] Dr. Erlinda Rivera MTD Negative Normal NEGATIVE [facility] Comment on above: Performed By: #### SEBASTIÁN SOTELORO #### [facility] [address] [place] [address] Dr. Erlinda Rivera OPI Negative Normal NEGATIVE [facility] Comment on above: Performed By: #### SEBASTIÁN SOTELORO #### [facility] [address] [place] [address] Dr. Erlinda Rivrea OXY Negative Normal NEGATIVE [facility] Comment on above: Performed By: #### E RUR, UMICRO #### [facility] [address] [place] [address] Dr. Erlinda Rivera PCP Negative Normal NEGATIVE [facility] Comment on above: Performed By: #### Sakina DE PAZ UMICRO #### [facility] [address] [place] [address] Dr. Erlinda Rivera PPX Negative Normal NEGATIVE [facility] Comment on above: Performed By: #### Sakina DE PAZ UMICRO #### [facility] [address] [place] [address] Dr. Erlinda Rivera TCA Negative Normal NEGATIVE [facility] Comment on above: Performed By: #### Sakina DE PAZ UMICRO #### [facility] [address] [place] [address] Dr. Erlinda Rivera THC Positive Abnormal NEGATIVE [facility] Comment on above: Performed By: #### Sakina DE PAZ UMICRO #### [facility] [address] [place] [address] Dr. Erlinda Rivera ER URINE PROFILEon 2 Bilirubin Ql (U) Negative Normal NEGATIVE [facility] Comment on above: Performed By: #### Sakina DE PAZ UMICRO #### [facility] [address] [place] [address] Dr. Erlinda Rivera Clarity (U) SL CLOUDY Abnormal CLEAR [facility] Comment on above: Performed By: #### Sakina DE PAZ UMICRO #### [facility] [address] [place] [address] Dr. Erlinda Rivera Color (U) LT. YELLOW Normal YELLOW [facility] Comment on above: Performed By: #### Sakina DE PAZ UMICRO #### [facility] [address] [place] [address] Dr. Erlinda ALFONSO A micrscopic examination will be performed if indicated. Normal [facility] Comment on above: Performed By: #### Sakina DE PAZ UMICRO #### [facility] [address] [place] [address] Dr. Erlinda Rivera Glucose Ql (U) Negative Normal NEGATIVE [facility] Comment on above: Performed By: #### ESTHER SOTELOICRO #### [facility] [address] [place] [address] Dr. Erlinda Rivera Hemoglobin Ql (U) Negative Normal NEGATIVE [facility] Comment on above: Performed By: #### SEBASTIÁN SOTELORO #### [facility] [address] [place] [address] Dr. Erlinda Rivera Ketones Ql (U) Negative Normal NEGATIVE [facility] Comment on above: Performed By: #### ESTHER SOTELOICRO #### [facility] [address] [place] [address] Dr. Erlinda Rivera LEUKOCYTES SMALL Abnormal NEGATIVE [facility] Comment on above: Performed By: #### ESTHER SOTELOICRO #### [facility] [address] [place] [address] Dr. Erlinda Rivera Nitrite Ql (U) Negative Normal NEGATIVE [facility] Comment on above: Performed By: #### SEBASTIÁN SOTELORO #### [facility] [address] [place] [address] Dr. Erlinda Rivera pH (U) 6.0 [pH] Normal 5-9 [facility] Comment on above: Performed By: #### SEBASTIÁN SOTELORO #### [facility] [address] [place] [address] Dr. Erlinda Rivera SPEC GRAVITY 1.020 Normal 1.005-<=1.025 [facility] Comment on above: Performed By: #### SEBASTIÁN SOTELORO #### [facility] [address] [place] [address] Dr. Erlinda Rivera UA PROTEIN Negative Normal NEGATIVE/ TRACE [facility] Comment on above: Performed By: #### SEBASTIÁN SOTELORO #### [facility] [address] [place] [address] Dr. Erlinda Rivera UR MICRO IND INDICATED Normal [facility] Comment on above: Performed By: #### SEBASTIÁN SOTELORO #### [facility] [address] [place] [address] Dr. Erlinda Rivera Urobilinogen Qn (U) 0.2 {Shannan'U}/dL Normal 0.2 - 1. 0 [facility] Comment on above: Performed By: #### E RURSEBASTIÁNRO #### [facility] [address] [address] [address] Erlinda Rivera ETHANOL (BLD ALC)on 06-06-20 22 ALC NOTE NOTE: 80 mg/dl is th e legal limit for a blood alcohol level Normal [facility] Comment on above: Performed By: #### E TH, SALYC, ACET, CMP #### [facility] [address] [address] [address] Erlinda Rivera Ethanol [Mass/Vol] mg/dL Normal [facility] Comment on above: Performed By: #### E TH, SALYC, ACET, CMP #### [facility] [address] [place] [address] Dr. Erlinda Rivera URon 06-06-2022 , QUAL Negative Normal NEGATIVE [facility] Comment on above: Performed By: #### P REGU #### [facility] [address] [place] [address] Dr. Erlinda Rivera PROF 14(COMP METB)on 022 Albumin [Mass/Vol] 4.2 g/dL Normal 3.4-5.0 [facility] Comment on above: Performed By: #### E TH, SALYC, ACET, CMP #### [facility] [address] [place] [address] Dr. Erlinda Rivera Albumin/Globulin [Mass ratio] 1.2 {ratio} Normal [facility] Comment on above: Performed By: #### E TH, SALYC, ACET, CMP #### [facility] [address] [address] [address] Erlinda Rivera ALP [Catalytic activity/Vol] 71 U/L Normal 46-116 [facility] Comment on above: Performed By: #### E TH, SALYC, ACET, CMP #### [facility] [address] [address] [address] Erlinda Rivera ALT [Catalytic activity/Vol] 91 U/L Critically high 14-59 [facility] Comment on above: Performed By: #### E , SALYC, ACET, CMP #### [facility] [address] [place] [address] Dr. Erlinda Rivera Anion gap [Moles/Vol] 13.9 mmol/L Normal [facility] Comment on above: Performed By: #### E TH, SALYC, ACET, CMP #### [facility] [address] [place] [address] Dr. Erlinda Rivera AST [Catalytic activity/Vol] 81 U/L Critically high 15-37 [facility] Comment on above: Performed By: #### E , SALYC, ACET, CMP #### [facility] [address] [place] [address] Dr. Erlinda Rivera Bilirubin [Mass/Vol] 0.4 mg/dL Normal 0.2-1.0 [facility] Comment on above: Performed By: #### E , SALYC, ACET, CMP #### [facility] [address] [place] [address] Dr. Erlinda Rivera Calcium [Mass/Vol] 9.1 mg/dL Normal 8.5-10.1 [facility] Comment on above: Performed By: #### E , SALYC, ACET, CMP #### [facility] [address] [place] [address] Dr. Erlinda Rivera Chloride [Moles/Vol] 105 mmol/L Normal 98-107 [facility] Comment on above: Performed By: #### E , SALYC, ACET, CMP #### [facility] [address] [place] [address] Dr. Erlinda Rivera CO2 [Moles/Vol] 28.3 mmol/L Normal 21.0-32.0 [facility] Comment on above: Performed By: #### E , SALYC, ACET, CMP #### [facility] [address] [place] [address] Dr. Erlinda Rivera Creatinine [Mass/Vol] 0.86 mg/dL Normal 0.55-1.02 [facility] Comment on above: Performed By: #### E , SALYC, ACET, CMP #### [facility] [address] [address] [address] Erlinda Rivera EGFR-AF CITIZEN OF [place] >60 Normal >=60 [facility] Comment on above: Performed By: #### E TH, SALYC, ACET, CMP #### [facility] [address] [address] [address] Erlinda Rivera EGFR-NON AF CITIZEN OF [place] >60 Normal >=60 [facility] Comment on above: Performed By: #### E TH, SALYC, ACET, CMP #### [facility] [address] [address] [address] Erlinda Rivera Globulin (S) [Mass/Vol] 3.4 g/dL Normal T [facility] Comment on above: Performed By: #### E TH, SALYC, ACET, CMP #### [facility] [address] [place] [address] Dr. Erlinda Rivera Glucose [Mass/Vol] 94 mg/dL Normal 74-106 [facility] Comment on above: Performed By: #### E TH, SALYC, ACET, CMP #### [facility] [address] [place] [address] Dr. Erlinda Rivera Potassium [Moles/Vol] 4.2 mmol/L Normal 3.5-5.1 [facility] Comment on above: Performed By: #### E TH, SALYC, ACET, CMP #### [facility] [address] [place] [address] Dr. Erlinda Rivera Protein [Mass/Vol] 7.6 g/dL Normal 6.4-8.2 [facility] Comment on above: Performed By: #### E TH, SALYC, ACET, CMP #### [facility] [address] [place] [address] Dr. Erlinda Rivera Sodium [Moles/Vol] 143 mmol/L Normal 136-145 [facility] Comment on above: Performed By: #### E TH, SALYC, ACET, CMP #### [facility] [address] [address] [address] Erlinda Rivera Urea nitrogen [Mass/Vol] 10.0 mg/dL Normal 7.0-18.0 [facility] Comment on above: Performed By: #### E TH, SALYC, ACET, CMP #### [facility] [address] [place] [address] Dr. Erlinda Rivera Urea nitrogen/Creatinine [Mass ratio] 11.6 mg/mg Normal [facility] Comment on above: Performed By: #### E TH, SALYC, ACET, CMP #### [facility] [address] [place] [address] Dr. Erlinda Rivera SALICYLATEon 06-06-2022 SALICYLATE 3.5 mg/dL Normal <=19.9 [facility] Comment on above: Performed By: #### E TH, SALYC, ACET, CMP #### [facility] [address] [place] [address] Dr. Erlinda Rivera URINE MICROSCOPIC ONLYon BACTERIA SMALL Abnormal NONE SEEN [facility] Comment on above: Performed By: #### Sakina RUR UMICRO #### [facility] [address] [place] [address] Dr. Erlinda Rivera Bacteria identified Cx Nom (U) INDICATED Normal [facility] Comment on above: Performed By: #### Sakina RUR UMICRO #### [facility] [address] [place] [address] Dr. Erlinda Rivera CAST NONE SEEN Normal NONE SEEN [facility] Comment on above: Performed By: #### E RUR UMICRO #### [facility] [facility] [address] [place] [address] Dr. Erlinda Rivera Crystals LM Nom (Urine sed) NONE SEEN Normal NONE SEEN [facility] Comment on above: Performed By: #### E RUR, UMICRO #### [facility] [address] [place] [address] Dr. Erlinda Rivera Epithelial cells LM Ql (Urine sed) FEW Abnormal NONE SEEN /RARE [facility] Comment on above: Performed By: #### E RUR, UMICRO #### [facility] [address] [place] [address] Dr. Erlinda Rivera MUCOUS NONE SEEN Normal NONE SEEN [facility] Comment on above: Performed By: #### E RUR, UMICRO #### [facility] [address] [address] [address] Erlinda iRvera RBC 0-2 Normal 0-2 [facility] Comment on above: Performed By: #### E RUR, UMICRO #### [facility] [address] [address] [address] Erlinda Rivera WBC 2-5 Abnormal NONE SEEN [facility] Comment on above: Performed By: #### E RUR, UMICRO #### [facility] [address] [address] [address] Erlinda Rivera HCV RNA,Quant,PCRon 04-08-20 22 HCV Quant 99,000 IU/mL Normal [facility] Comment on above: Performed By: #### H CVQN #### [id number] [place] [address] [employer] Layer: Gee Soriano MD [facility] [address] [place] [address] [place] [id number] [employer] Layer: Kelli Martel MD #### CBC, TSH, CP #### [address] [place] [address] [employer] Layer: Kelli Martel MD #### HIVCMB, PHEP, TREP, SWCGP, FT4 #### [address] [place] [address] Fire[employer]rick Layer: Gee Soriano MD HCV RNA,Quant Detected Abnormal NOTDET [facility] Comment on above: Result Comment: HCV RNA DETECTED This test is a sensitive method for quantitating HCV RNA viral loads in plasma. It utilizes RT-PCR in the FDA approved Brisa Ampliprep/Taqman 48 System. This test is intended for detecting and quantifying HCV RNA viral loads in the range of 15 IU/mL to 20,000,000 IU/mL (1.18 log IU/mL to 7.30 log IU/mL). Patients should have confirmed HCV infection prior to RNA quantification. This test has been developed to monitor disease progression and efficacy of anti-HCV drug therapy. This test has been optimized for HCV genotypes 1-6. Results reported to the appropriate Health Department Performed By: #### H CVQN #### [address] [address] [employer] Layer: Gee Soriano MD [address] [place] [address] [employer] Layer: Kelli Martel MD #### CBC, TSH, CP #### [address] [address] [employer] Layer: Kelli Martel MD #### HIVCMB, PHEP, TREP, SWCGP, FT4 #### [address] [place] [address] Firebrick Layer: Gee Soriano MD HCV,RNA Log 5.00 Log IU/mL [facility] Comment on above: Performed By: #### H CVQN #### [address] [address] [employer] Layer: Gee Soriano MD [address] [place] [address] Fire[employer]rick Layer: Kelli Martel MD #### CBC, TSH, CP #### [address] [place] [address] [employer] Layer: Kelli Martel MD #### HIVCMB, PHEP, TREP, SWCGP, FT4 #### [address] [place] [address] Fire[employer]rick Layer: Gee Soriano MD Chlamydia/GC,DNA Ampon 04-07 Chlamydia Probe Negative Normal [facility] Comment on above: Result Comment: CHLA MYDIA TRACHOMATIS DNA not detected by nucleic acid amplification. This test is intended for medical purposes only and is not valid for the evaluation of suspected sexual abuse or for other forensic purposes. In certain contexts, culture may be required to meet applicable laws and regulations for diagnosis of C. trachomatis and N. gonorrhoeae infections. Per 2014 CDC recommendations, this test does not include confirmation of positive results by an alternative nucleic acid target. Performed By: #### H CVQN #### [address] [address] [employer] Layer: Gee Soriano MD [address] [place], [place] [id number] [employer] Layer: Kelli Martel MD #### CBC, TSH, CP #### [address] [place], [place] 1090283 [employer] Layer: Kelli Martel MD #### HIVCMB, PHEP, TREP, SWCGP, FT4 #### [address] [address] Fireb[employer] Layer: Gee Soriano MD Gonorrhea Probe Negative Normal NEG [facility] Comment on above: Result Comment: NEIS SERIA GONORRHOEAE DNA not detected by nucleic acid amplification. This test is intended for medical purposes only and is not valid for the evaluation of suspected sexual abuse or for other forensic purposes. In certain contexts, culture may be required to meet applicable laws and regulations for diagnosis of C. trachomatis and N. gonorrhoeae infections. Per 2014 CDC recommendations, this test does not include confirmation of positive results by an alternative nucleic acid target. Performed By: #### H CVQN #### [address] [address] [employer] Layer: Gee Soriano MD [address] [place], [place] [id number] [employer] Layer: Kelli Martel MD #### CBC, TSH, CP #### [address] [place], [place] 8406483 [employer] Layer: Kelli Martel MD #### HIVCMB, PHEP, TREP, SWCGP, FT4 #### [address] [address] Fire[employer] Layer: Gee Soriano MD CBCon 04-06-2022 Erythrocyte distribution width (RBC) [Ratio] 12.4 % Normal 11.8-14.4 [facility] Comment on above: Performed By: #### H CVQN #### [address] [address] [employer] Layer: Gee Soriano MD [address] [place] [phone] Firebrick Layer: Kelli Martel MD #### CBC, TSH, CP #### [address] [place] [phone] Fire[employer]rick Layer: Kelli Martel MD #### HIVCMB, PHEP, TREP, SWCGP, FT4 #### [address] [address] [employer] Layer: Gee Soriano MD Hematocrit (Bld) [Volume fraction] 39.3 % Normal 36.3-47.1 [facility] Comment on above: Performed By: #### H CVQN #### [address] [address] [employer] Layer: Gee Soriano MD [address] [place] [phone] Firebrick Layer: Kelli Martel MD #### CBC, TSH, CP #### [address] [place], [place] 0872183 [employer] Layer: Kelli Martel MD #### HIVCMB, PHEP, TREP, SWCGP, FT4 #### [address] [address] [employer] Layer: Gee Soriano MD Hemoglobin (Bld) [Mass/Vol] 12.5 g/dL Normal 11.9-15.1 [facility] Comment on above: Performed By: #### H CVQN #### [address] [address] [employer] Layer: Gee Soriano MD [address] [place], [place] 3653083 [employer] Layer: Kelli Martel MD #### CBC, TSH, CP #### [address] [place], [place] 9013683 [employer] Layer: Kelli Martel MD #### HIVCMB, PHEP, TREP, SWCGP, FT4 #### [address] [address] [employer] Layer: Gee Soriano MD MCH (RBC) [Entitic mass] 33.5 pg Normal 25.2-33.5 [facility] Comment on above: Performed By: #### H CVQN #### [address] [address] [employer] Layer: Gee Soriano MD [address] [place] [phone] Firebrick Layer: Kelli Martel MD #### CBC, TSH, CP #### [address] [place], [place] 2662883 [employer] Layer: Kelli Martel MD #### HIVCMB, PHEP, TREP, SWCGP, FT4 #### [address] [address] [employer] Layer: Gee Soriano MD MCHC (RBC) [Mass/Vol] 31.8 g/dL Normal 28.4-34.8 [facility] Comment on above: Performed By: #### H CVQN #### [address] [address] [employer] Layer: Gee Soriano MD [address] [place], [place] [phone] Fire[employer] Layer: Kelli Martel MD #### CBC, TSH, CP #### [address] [place], [place] [id number] [employer] Layer: Kelli Martel MD #### HIVCMB, PHEP, TREP, SWCGP, FT4 #### [address] [address] Firebrick Layer: Gee Soriano MD MCV (RBC) [Entitic vol] 105.4 fL High 82.6-102.9 [facility] Comment on above: Performed By: #### H CVQN #### [address] [address] [employer] Layer: Gee Soriano MD [address] [place] [address] Fire[employer] Layer: Kelli Martel MD #### CBC, TSH, CP #### [address] [place] [phone] Firebrick Layer: Kelli Martel MD #### HIVCMB, PHEP, TREP, SWCGP, FT4 #### [address] [address] [employer] Layer: Gee Soriano MD NRBC Automated 0.0 per 100 WBC Normal 0.0 [facility] Comment on above: Performed By: #### H CVQN #### [address] [address] [employer] Layer: Gee Soriano MD [address] [place] [phone] Firebrick Layer: Kelli Martel MD #### CBC, TSH, CP #### [address] [address] [employer] Layer: Kelli Martel MD #### HIVCMB, PHEP, TREP, SWCGP, FT4 #### [address] [address] [employer] Layer: Gee Soriano MD Platelet mean volume (Bld) [Entitic vol] 10.6 fL Normal 8.1-13.5 [facility] Comment on above: Performed By: #### H CVQN #### [address] [address] [employer] Layer: Gee Soriano MD [address] [place] [address] Firebrick Layer: Kelli Martel MD #### CBC, TSH, CP #### [address] [place] [address] [employer] Layer: Kelli Martel MD #### HIVCMB, PHEP, TREP, SWCGP, FT4 #### [address] [address] [employer] Layer: Gee Soriano MD Platelets (Bld) [#/Vol] 280 10*3/uL Normal 138-453 [facility] Comment on above: Performed By: #### H CVQN #### [address] [address] [employer] Layer: Gee Soriano MD [address] [place] [address] Firebrick Layer: Kelli Martel MD #### CBC, TSH, CP #### [address] [address] [employer] Layer: Kelli Martel MD #### HIVCMB, PHEP, TREP, SWCGP, FT4 #### [address] [address] [employer] Layer: Gee Soriano MD RBC (Bld) [#/Vol] 3.73 10*6/uL Low 3.95-5.11 [facility] Comment on above: Performed By: #### H CVQN #### [address] [place] [address] Fire[employer] Layer: Gee Soriano MD [address] [place], [place] 2151683 Firebrick Layer: Kelli Martel MD #### CBC, TSH, CP #### [address] [place], [place] 7184883 [employer] Layer: Kelli Martel MD #### HIVCMB, PHEP, TREP, SWCGP, FT4 #### [address] [address] [employer] Layer: Gee Soriano MD WBC (Bld) [#/Vol] 4.6 10*3/uL Normal 3.5-11.3 [facility] Comment on above: Performed By: #### H CVQN #### [address] [address] Fireb[employer] Layer: Gee Soriano MD [address] [place] [phone] Firebrick Layer: Kelli Martel MD #### CBC, TSH, CP #### [address] [place], [place] 2365983 [employer] Layer: Kelli Martel MD #### HIVCMB, PHEP, TREP, SWCGP, FT4 #### [address] [address] [employer] Layer: Gee Soriano MD Hematocrit (Bld) [Volume fraction] 39.3 % 36.3 - 47.1 % [facility] Hemoglobin (Bld) [Mass/Vol] 12.5 g/dL 11.9 - 15.1 g/dL [facility] Interpretation and review of laboratory results Abnormal [facility] MCH (RBC) [Entitic mass] 33.5 pg 25.2 - 33.5 pg [facility] MCHC (RBC) [Mass/Vol] 31.8 g/dL 28.4 - 34.8 g/dL [facility] MCV (RBC) [Entitic vol] 105.4 fL High 82.6 - 102.9 fL [facility] NRBC Automated 0.0 0.0 per 100 WBC [facility] Platelet distribution width (Bld) [Ratio] 12.4 % 11.8 - 14.4 % [facility] Platelet mean volume (Bld) [Entitic vol] 10.6 fL 8.1 - 13.5 fL [facility] Platelets (Bld) [#/Vol] 280 10*3/uL [facility] RBC (Bld) [#/Vol] 3.73 10*6/uL Low 3.95 - 5.1 1 m/uL [facility] WBC (Bld) [#/Vol] 4.6 10*3/uL [facility] Comp Metabolic Profon 2021 (cont.) Normal [facility] Comment on above: Result Comment: Aver age GFR for 40-49 years old: 99 mL/min/1.73sq m Chronic Kidney Disease: <60 mL/min/1.73sq m Kidney failure: <15 mL/min/1.73sq m eGFR calculated using average adult body mass. Additional eGFR calculator available at: http://www.[employer].Monesbat/multiple_crcl_2011.htm Performed By: #### H CVQN #### [facility] [employer] [address] [place] [address] Firebrick Layer: Gee Soriano MD [facility] [address] [place] [address] Firebrick Layer: Kelli Martel MD #### CBC, TSH, CP #### [facility] [address] [place] [address] Fireb[employer] Layer: Kelli Martel MD #### HIVCMB, PHEP, TREP, SWCGP, FT4 #### [address] [address] [employer] Layer: Gee Soriano MD Albumin [Mass/Vol] 4.2 g/dL Normal 3.5-5.2 [facility] Comment on above: Performed By: #### H CVQN #### [address] [address] [employer] Layer: Gee Soriano MD [address] [place], [place] 4114783 [employer] Layer: Kelli Martel MD #### CBC, TSH, CP #### [address] [place], [place] 7510883 [employer] Layer: Kelli Martel MD #### HIVCMB, PHEP, TREP, SWCGP, FT4 #### [address] [address] [employer] Layer: Gee Soriano MD Albumin/Glob Ratio 1.6 Normal 1.0-2.5 [facility] Comment on above: Performed By: #### H CVQN #### [address] [address] [employer] Layer: Gee Soriano MD [address] [place] [phone] Firebrick Layer: Kelli Martel MD #### CBC, TSH, CP #### [address] [place], [place] 2920483 [employer] Layer: Kelli Martel MD #### HIVCMB, PHEP, TREP, SWCGP, FT4 #### [address] [address] [employer] Layer: Gee Soriano MD Alkaline Phos 65 U/L Normal 35-104 [facility] Comment on above: Performed By: #### H CVQN #### [address] [address] [employer] Layer: Gee Soriano MD [address] [place] [address] [employer] Layer: Kelli Martel MD #### CBC, TSH, CP #### [address] [place], [place] 8125983 [employer] Layer: Kelli Martel MD #### HIVCMB, PHEP, TREP, SWCGP, FT4 #### [address] [address] [employer] Layer: Gee Soriano MD ALT [Catalytic activity/Vol] 33 U/L Normal 5-33 [facility] Comment on above: Performed By: #### H CVQN #### [address] [address] [employer] Layer: Gee Soriano MD [address] [place], [place] [phone] Fire[employer] Layer: Kelli Martel MD #### CBC, TSH, CP #### [address] [place], [place] 2606583 [employer] Layer: Kelli Martel MD #### HIVCMB, PHEP, TREP, SWCGP, FT4 #### [address] [address] [employer] Layer: Gee Soriano MD Anion gap [Moles/Vol] 9 mmol/L Normal 9-17 [facility] Comment on above: Performed By: #### H CVQN #### [address] [address] [employer] Layer: Gee Soriano MD [address] [place] [address] Fireb[employer] Layer: Kelli Martel MD #### CBC, TSH, CP #### [address] [place] [address] [employer] Layer: Kelli Martel MD #### HIVCMB, PHEP, TREP, SWCGP, FT4 #### [address] [address] Firebrick Layer: Gee Soriano MD AST [Catalytic activity/Vol] 38 U/L High <32 [facility] Comment on above: Performed By: #### H CVQN #### [address] [address] Firebrick Layer: Gee Soriano MD [address] [place] [phone] Firebrick Layer: Kelli Martel MD #### CBC, TSH, CP #### [address] [place] [phone] Firebrick Layer: Kelli Martel MD #### HIVCMB, PHEP, TREP, SWCGP, FT4 #### [address] [address] Firebrick Layer: Gee Soriano MD Bilirubin [Mass/Vol] 0.23 mg/dL Low 0.3-1.2 [facility] Comment on above: Performed By: #### H CVQN #### [address] [address] [employer] Layer: Gee Soriano MD [address] [place], [facility] Firebrick Layer: Kelli Martel MD #### CBC, TSH, CP #### [address] [place], [place] 2614983 [employer] Layer: Kelli Martel MD #### HIVCMB, PHEP, TREP, SWCGP, FT4 #### [address] [address] Firebrick Layer: Gee Soriano MD BUN/CRE Ratio 17 Normal 9-20 [facility] Comment on above: Performed By: #### H CVQN #### [address] [address] Firebrick Layer: Gee Soriano MD [facility] [address] [place] [address] Dr. [place], [place] [phone] Firebrick Layer: Kelli Matrel MD #### CBC, TSH, CP #### [address] [place], [place] 5963283 [employer] Layer: Kelli Martel MD #### HIVCMB, PHEP, TREP, SWCGP, FT4 #### [address] [address] Firebrick Layer: Gee Soriano MD Calcium [Mass/Vol] 8.9 mg/dL Normal 8.6-10.4 [facility] Comment on above: Performed By: #### H CVQN #### [address] [address] Firebrick Layer: Gee Soriano MD [address] [place], [place] 3262583 Firebrick Layer: Kelli Martel MD #### CBC, TSH, CP #### [address] [place], [place] 2589183 Fireb[employer] Layer: Kelli Martel MD #### HIVCMB, PHEP, TREP, SWCGP, FT4 #### [address] [place] [address] Firebrick Layer: Gee Soriano MD Chloride [Moles/Vol] 106 mmol/L Normal 98-107 [facility] Comment on above: Performed By: #### H CVQN #### [address] [address] [employer] Layer: Gee Soriano MD [address] [place] [address] [employer] Layer: Kelli Martel MD #### CBC, TSH, CP #### [address] [place] [address] Fireb[employer] Layer: Kelli Martel MD #### HIVCMB, PHEP, TREP, SWCGP, FT4 #### [address] [address] Firebrick Layer: Gee Soriano MD CO2 [Moles/Vol] 30 mmol/L Normal 20-31 [facility] Comment on above: Performed By: #### H CVQN #### [facility] [address] [place] [address] Fireb[employer] Layer: Gee Soriano MD [address] [place] [address] Firebrick Layer: Kelli Martel MD #### CBC, TSH, CP #### [address] [place], [place] 0910483 Fireb[employer] Layer: Kelli Martel MD #### HIVCMB, PHEP, TREP, SWCGP, FT4 #### [address] [address] Firebrick Layer: Gee Soriano MD Creatinine [Mass/Vol] 0.71 mg/dL Normal 0.50-0.90 [facility] Comment on above: Performed By: #### H CVQN #### [facility] [address] [place] [address] Fire[employer] Layer: Gee Soriano MD [address] [place] [address] Firebrick Layer: Kelli Martel MD #### CBC, TSH, CP #### [address] [place], [place] 4840483 [employer] Layer: Kelli Martel MD #### HIVCMB, PHEP, TREP, SWCGP, FT4 #### [address] [address] Firebrick Layer: Gee Soriano MD GFR, Amer >60 Normal >60 [facility] Comment on above: Performed By: #### H CVQN #### [address] [address] Firebrick Layer: Gee Soriano MD [facility] [address] [place] [address] Dr. [place], [place] [id number] Firebrick Layer: Kelli Martel MD #### CBC, TSH, CP #### [address] [place], [place] 1257883 Firebrick Layer: Kelli Martel MD #### HIVCMB, PHEP, TREP, SWCGP, FT4 #### [address] [address] Firebrick Layer: Gee Soriano MD GFR,non Amer >60 Normal >60 [facility] Comment on above: Performed By: #### H CVQN #### [address] [address] Firebrick Layer: Gee Soriano MD [facility] [address] [place] [address] Dr. [place], [place] [phone] Firebrick Layer: Kelli Martel MD #### CBC, TSH, CP #### [address] [place], [place] 3153983 Fireb[employer] Layer: Kelli Martel MD #### HIVCMB, PHEP, TREP, SWCGP, FT4 #### [address] [address] Firebrick Layer: Gee Soriano MD Glucose [Mass/Vol] 118 mg/dL High 70-99 [facility] Comment on above: Performed By: #### H CVQN #### [address] [address] Firebrick Layer: Gee Soriano MD [address] [place] [address] Fireb[employer] Layer: Kelli Martel MD #### CBC, TSH, CP #### [address] [address] Firebrick Layer: Kelli Martel MD #### HIVCMB, PHEP, TREP, SWCGP, FT4 #### [address] [address] Firebrick Layer: Gee Soriano MD Potassium [Moles/Vol] 3.9 mmol/L Normal 3.7-5.3 [facility] Comment on above: Performed By: #### H CVQN #### [address] [address] Firebrick Layer: Gee Soriano MD [address] [place], [place] [id number] Firebrick Layer: Kelli Martel MD #### CBC, TSH, CP #### [address] [place] [address] Fireb[employer] Layer: Kelli Martel MD #### HIVCMB, PHEP, TREP, SWCGP, FT4 #### [address] [address] Firebrick Layer: Gee Soriano MD Protein [Mass/Vol] 6.8 g/dL Normal 6.4-8.3 [facility] Comment on above: Performed By: #### H CVQN #### [address] [address] Firebrick Layer: Gee Soriano MD [address] [place] [address] Firebrick Layer: Kelli Martel MD #### CBC, TSH, CP #### [address] [place], [place] 4419283 Firebrick Layer: Kelli Martel MD #### HIVCMB, PHEP, TREP, SWCGP, FT4 #### [address] [address] Firebrick Layer: Gee Soriano MD Sodium [Moles/Vol] 145 mmol/L High 135-144 [facility] Comment on above: Performed By: #### H CVQN #### [address] [address] Firebrick Layer: Gee Soriano MD [address] [place], [place] 7292583 Firebrick Layer: Kelli Martel MD #### CBC, TSH, CP #### [address] [place], [place] 6726083 Fireb[employer] Layer: Kelli Martel MD #### HIVCMB, PHEP, TREP, SWCGP, FT4 #### [address] [address] Firebrick Layer: Gee Soriano MD Staging: Normal [facility] Comment on above: Result Comment: Stag e 1: Some kidney damage normal GFR Stage 2: Mild kidney damage GFR 60-89 Stage 3: Moderate kidney damage GFR 30-59 Stage 4: Severe kidney damage GFR 15-29 Stage 5: Severe kidney damage GFR <15 ESRD - chronic treatment by dialysis or transplant Performed By: #### H CVQN #### [address] [address] Firebrick Layer: Gee Soriano MD [address] [address] Firebrick Layer: Kelli Martel MD #### CBC, TSH, CP #### [address] [place], [place] 3453283 Fireb[employer] Layer: Kelli Martel MD #### HIVCMB, PHEP, TREP, SWCGP, FT4 #### [facility] [address] [place] [address] Firebrick Layer: Gee Soriano MD Urea nitrogen [Mass/Vol] 12 mg/dL Normal 6-20 [facility] Comment on above: Performed By: #### H CVQN #### [facility] [address] [place], [place] 5192208 Firebrick Layer: Gee Soriano MD [address] [place], [place] 4939983 Firebrick Layer: Kelli Martel MD #### CBC, TSH, CP #### [address] [place], [place] 1832883 Firebrick Layer: Kelli Martel MD #### HIVCMB, PHEP, TREP, SWCGP, FT4 #### [facility] [address] [place], [place] 9597308 Firebrick Layer: Gee Soriano MD Comprehensive Metabolic Pane [facility] 04-06-2022 Albumin [Mass/Vol] 4.2 g/dL 3.5 - 5.2 g/dL [facility] Albumin/Globulin [Mass ratio] 1.6 {ratio} [facility] ALP (Bld) [Catalytic activity/Vol] 65 U/L 35 - 104 U/L [facility] ALT [Catalytic activity/Vol] 33 U/L 5 - 33 U/L [facility] Anion gap [Moles/Vol] 9 mmol/L 9 - 17 mmol/L [facility] AST [Catalytic activity/Vol] 38 U/L High <32 [facility] Bilirubin [Mass/Vol] 0.23 mg/dL Low 0.3 - 1 .2 mg/dL [facility] Calcium [Mass/Vol] 8.9 mg/dL 8.6 - 10. 4 mg/dL [facility] Chloride [Moles/Vol] 106 mmol/L 98 - 10 7 mmol/L [facility] CO2 [Moles/Vol] 30 mmol/L 20 - 31 mmol/L [facility] Creatinine [Mass/Vol] 0.71 mg/dL 0.50 - 0.90 mg/dL [facility] Free PSA/Total PSA [Mass fraction] 6.8 g/dL 6.4 - 8.3 g/dL [facility] GFR >60 >60 mL/min [facility] GFR Non- >60 >60 mL/min [facility] Glucose [Mass/Vol] 118 mg/dL High 70 - 99 mg/dL [facility] Interpretation and review of laboratory results Abnormal [facility] Potassium [Moles/Vol] 3.9 mmol/L 3.7 - 5.3 mmol/L [facility] Sodium [Moles/Vol] 145 mmol/L High 135 - 144 mmol/L [facility] Urea nitrogen (BldV) [Mass/Vol] 12 mg/dL 6 - 20 mg/dL [facility] Urea nitrogen/Creatinine (Bld) [Mass ratio] 17 [facility] HCV RNA,Quant,PCRon 04-06-20 22 Source .PLASMA Normal [facility] Comment on above: Performed By: #### H CVQN #### [facility] [address] [place] [address] [id number] [employer] Layer: Gee Soriano MD [facility] [address] [place] [address] [place] [address] Firebrick Layer: Kelli Martel MD #### CBC, TSH, CP #### [facility] [address] [place] [address] [place] [address] [employer]brick Layer: Kelli Martel MD #### HIVCMB, PHEP, TREP, SWCGP, FT4 #### [facility] [place], [place] [id number] Firebrick Layer: Gee Soriano MD HIV Ag/Abon 04-06-2022 HIV Ag/Ab Non-Reactive Normal NR [facility] Comment on above: Result Comment: No l aboratory evidence of HIV infection. If acute HIV infection is suspected, consider testing for HIV-1 RNA. Performed By: #### H CVQN #### [facility] [address] [place] [address] [employer] Layer: Gee Soriano MD [address] [place], [place] [id number] [employer]: Kelli Martel MD #### CBC, TSH, CP #### [address] [place] [address] [employer]: Kelli Martel MD #### HIVCMB, PHEP, TREP, SWCGP, FT4 #### [address] [address] [employer] Layer: Gee Soriano MD HIV Screenon 04-06-2022 HIV Ag/Ab Non-Reactive NONREACTIVE [facility] Comment on above: No laboratory eviden ce of HIV infection. If acute HIV infection is suspected, consider testing for HIV-1 RNA. [facility] Hepatitis Acute Brina 04-06 Hep A Ab,IgM Non-Reactive Normal NR [facility] Comment on above: Performed By: #### H CVQN #### [id number] [place] [address] [employer] Layer: Gee Soriano MD [address] [place], [place] [id number] [employer] Layer: Kelli Martel MD #### CBC, TSH, CP #### [address] [place], [place] [id number] [employer] Layer: Kelli Martel MD #### HIVCMB, PHEP, TREP, SWCGP, FT4 #### [address] [address] [employer] Layer: Gee Soriano MD Hep B Core Ab,IgM Non-Reactive Normal [facility] Comment on above: Performed By: #### H CVQN #### [address] [address] [employer] Layer: Gee Soriano MD [address] [place] [address] [employer] Layer: Kelli Martel MD #### CBC, TSH, CP #### [address] [place] [address] [employer] Layer: Kelli Martel MD #### HIVCMB, PHEP, TREP, SWCGP, FT4 #### [address] [address] [employer] Layer: Gee Soriano MD Hep B Surf Ag Non-Reactive Normal [facility] Comment on above: Performed By: #### H CVQN #### [address] [address] [employer] Layer: Gee Soriano MD [address] [place] [address] [employer] Layer: Kelli Martel MD #### CBC, TSH, CP #### [address] [place] [address] [employer] Layer: Kelli Martel MD #### HIVCMB, PHEP, TREP, SWCGP, FT4 #### [address] [address] [employer] Layer: Gee Soriano MD Hep C Ab Reactive Abnormal [facility] Comment on above: Result Comment: The hepatitis C procedure used in our laboratory is a Chemiluminescent test specific for three recombinant HCV antigens. A negative anti-HCV result indicates that the antibodies to hepatitis C virus are not present at this time. Individuals with reactive anti-HCV should be considered infected and infectious until proven otherwise. Confirmation of all equivocal or reactive results is recommended by ordering HCV RNA by PCR. Results reported to the appropriate Health Department Performed By: #### H CVQN #### [facility] [address] [place], [place] [id number] [employer] Layer: Gee Soriano MD [address] [place] [address] [employer] Layer: Kelli Martel MD #### CBC, TSH, CP #### [facility] [address] [place] [address] [place] [address] [employer] Layer: Kelli Martel MD #### HIVCMB, PHEP, TREP, SWCGP, FT4 #### [facility] [address] [place] [address] [employer] Layer: Gee Soriano MD Hepatitis Panel, Acuteon HAV IgM IA Qn (S) Non-Reactive NONREACTIVE [facility] Hep B Core Ab, IgM Non-Reactive NONREACTIVE [facility] Hepatitis B Surface Ag Non-Reactive NONREACTIVE [facility] Hepatitis C Ab Reactive Abnormal NONREACTIVE [facility] Comment on above: The hepatitis C procedure used in our laboratory is a Chemiluminescent test specific for three recombinant HCV antigens. A negative anti-HCV result indicates that the antibodies to hepatitis C virus are not present at this time. Individuals with reactive anti-HCV should be considered infected and infectious until proven otherwise. Confirmation of all equivocal or reactive results is recommended by ordering HCV RNA by PCR. Results reported to the appropriate Health Department Interpretation and review of laboratory results Abnormal [facility] Laboratory - Chemistry and C hemistry - challengeon 04-06-2022 GFR/1.73 sq M.predicted MDRD (S/P/Bld) [Vol rate/Area] [facility] Comment on above: Average GFR for 40-4 9 years old: 99 mL/min/1.73sq m Chronic Kidney Disease: <60 mL/min/1.73sq m Kidney failure: <15 mL/min/1.73sq m eGFR calculated using average adult body mass. Additional eGFR calculator available at: http://www.globalrph.Monesbat/multiple_crcl_2012.htm Stage 1: Some kidney damage normal GFR Stage 2: Mild kidney damage GFR 60-89 Stage 3: Moderate kidney damage GFR 30-59 Stage 4: Severe kidney damage GFR 15-29 Stage 5: Severe kidney damage GFR <15 ESRD - chronic treatment by dialysis or transplant No Panel Informationon 04-06 [facility] T. pallidum Abon 04-06-2022 T. pallidum, IgG Non-Reactive NONREACTIVE [facility] Comment on above: T. pallidum antibodies are not detected. There is no serological evidence of infection with T. pallidum (early primary syphilis cannot be excluded). Retest in 2-4 weeks if syphilis is clinically suspect. [facility] T.pallidum Ab Screenon 04-06 T.pallidum Ab Screen Non-Reactive Normal NR [facility] Comment on above: Result Comment: T. pallidum antibodies are not detected. There is no serological evidence of infection with T. pallidum (early primary syphilis cannot be excluded). Retest in 2-4 weeks if syphilis is clinically suspect. Performed By: #### H CVQN #### [facility] [address] [place] [address] [employer] Layer: Gee Soriano MD [address] [address] [employer] Layer: Kelli Martel MD #### CBC, TSH, CP #### [address] [place] [id number] [employer] Layer: Kelli Martel MD #### HIVCMB, PHEP, TREP, SWCGP, FT4 #### [facility] [address] [place] [address] [employer] Layer: Gee Soriano MD T4, Freeon 04-06-2022 Thyroxine, Free 1.13 ng/dL 0.93 - 1.70 ng/dL [facility] TSHon 04-06-2022 TSH Qn 0.77 m[IU]/L [facility] Thyroid Stim. Horm.on 2021 Thyroid Stim. Horm. 0.77 uIU/mL Normal 0.30-5.00 [facility] Comment on above: Performed By: #### H CVQN #### [address] [place] [address] [employer] Layer: Gee Soriano MD [address] [place] [id number] [employer] Layer: Kelli Martel MD #### CBC, TSH, CP #### [address] [address] [employer] Layer: Kelli Martel MD #### HIVCMB, PHEP, TREP, SWCGP, FT4 #### [address] [id number] [employer]: Gee Soriano MD Thyroxine, Freeon 04-06-2022 Thyroxine, Free 1.13 ng/dL Normal 0.93-1.70 [facility] Comment on above: Performed By: #### H CVQN #### [address] [address] [employer] Layer: Gee Soriano MD [address] [place] [id number] [employer] Layer: Kelli Martel MD #### CBC, TSH, CP #### [address] [address] [employer] Layer: Kelli Martel MD #### HIVCMB, PHEP, TREP, SWCGP, FT4 #### [address] [id number] [employer]: Gee Soriano MD Trichomonas/Wet Prepon 04-06 Trichomonas/Wet Prep Specimen Descriptio n .VAGINAL SPECIMEN Direct Exam NO YEAST OBSERVED NO TRICHOMONAS SEEN NO CLUE CELLS SEEN Report Status FINAL 04/06/2022 Normal [facility] Comment on above: Performed By: #### W P #### [facility] [address] [place] [address] [employer] Layer: Kelli Martel MD Wet prep, genitalon 04-06-20 22 Direct Exam NO YEAST OBSERVED [facility] Direct Exam NO TRICHOMONAS SEEN [facility] Direct Exam NO CLUE CELLS SEEN [facility] Specimen Description .VAGINAL SPECIMEN [facility] ER URINE PROFILEon 2 Bilirubin Ql (U) Negative Normal NEGATIVE [facility] Comment on above: Performed By: #### E RUR #### [facility] [address] [place] [address] Dr. Erlinda Rivera Clarity (U) CLEAR Normal CLEAR [facility] Comment on above: Performed By: #### E RUR #### [facility] [address] [place] [address] Dr. Erlinda Rivera Color (U) LT. YELLOW Normal YELLOW [facility] Comment on above: Performed By: #### E RUR #### [facility] [address] [place] [address] Dr. Erlinda ALFONSO A micrscopic examination will be performed if indicated. Normal [facility] Comment on above: Performed By: #### E RUR #### [facility] [address] [place] [address] Dr. Erlinda Rivera Glucose Ql (U) Negative Normal NEGATIVE [facility] Comment on above: Performed By: #### E RUR #### [facility] [address] [place] [address] Dr. Erlinda Rivera Hemoglobin Ql (U) Negative Normal NEGATIVE [facility] Comment on above: Performed By: #### E RUR #### [facility] [address] [place] [address] Dr. Erlinda Rivera Ketones Ql (U) Negative Normal NEGATIVE [facility] Comment on above: Performed By: #### E RUR #### [facility] [address] [address] [address] Erlinda Rivera LEUKOCYTES Negative Normal NEGATIVE [facility] Comment on above: Performed By: #### E RUR #### [facility] [address] [place] [address] Dr. Erlinda Rivera Nitrite Ql (U) Negative Normal NEGATIVE [facility] Comment on above: Performed By: #### E RUR #### [facility] [address] [place] [address] Dr. Erlinda Rivera pH (U) 7.0 [pH] Normal 5-9 [facility] Comment on above: Performed By: #### E RUR #### [facility] [address] [place] [address] Dr. Erlinda Rivera SPEC GRAVITY <=1.005 Abnormal 1.005-<=1.025 [facility] Comment on above: Performed By: #### E RUR #### [facility] [address] [place] [address] Dr. Erlinda Rivera UA PROTEIN Negative Normal NEGATIVE/ TRACE [facility] Comment on above: Performed By: #### E RUR #### [facility] [address] [place] [address] Dr. Erlinda Rivera UR MICRO IND NOT INDICATED Normal [facility] Comment on above: Performed By: #### E RUR #### [facility] [address] [place] [address] Dr. Erlinda Rivera Urobilinogen Qn (U) 0.2 {Shannan'U}/dL Normal 0.2 - 1. 0 [facility] Comment on above: Performed By: #### E RUR #### [facility] [address] [place] [address] Dr. Erlinda Rivera XR CHEST 2 Von 03-25-2022 XR CHEST 2 V EXAM: XR CHEST 2 V HISTORY: Pain COMPARISON: CT chest with contrast 03/19/2022, radiograph 03/19/2022 FINDINGS: Right upper/midlung granuloma and calcified right hilar lymph nodes are compatible with prior granulomatous disease. There is blunting of the costophrenic angles with associated perihilar and bibasilar atelectasis. There is no significant pleural effusion or profiled pneumothorax. The cardiomediastinal contour is stable. Visualized portions of the upper abdomen are unremarkable. Lower cervical ACDF hardware is incompletely profiled. No displaced rib fracture or other acute osseus abnormality. IMPRESSION: 1. Mildly decreased lung volumes with bibasilar and perihilar atelectasis. 2. Sequelae of remote granulomatous disease. 3. No displaced rib fracture. Electronically authenticated by: KAYLA NYE Date: 2022-03-24 22:52 Normal [facility] CBC AUTO DIFFon 03-24-2022 BASO # 0.0 103/ul Normal 0.0-0.1 [facility] Comment on above: Performed By: #### E TH, SONIA ACET, CMP #### [facility] [address] [place] [address] Dr. Erlinda Rivera Basophils/100 WBC (Bld) 0.4 % Normal 0.2-2.0 [facility] Comment on above: Performed By: #### E TH, SALYC, ACET, CMP #### [facility] [address] [place] [address] Dr. Erlinda Rivera EO # 0.1 103/ul Normal 0.0-0.7 [facility] Comment on above: Performed By: #### E TH, SALYC, ACET, CMP #### [facility] [address] [place] [address] Dr. Erlinda Rivera Eosinophils/100 WBC (Bld) 1.8 % Normal 0.9-7.0 [facility] Comment on above: Performed By: #### E TH, SALYC, ACET, CMP #### [facility] [address] [place] [address] Dr. Erlinda Rivera Erythrocyte distribution width (RBC) [Ratio] 12.7 % Normal 11.0-15.0 [facility] Comment on above: Performed By: #### E TH, SALYC, ACET, CMP #### [facility] [address] [place] [address] Dr. Erlinda Rivera Hematocrit (Bld) [Volume fraction] 31.6 % Critically low 36.0-48.0 [facility] Comment on above: Performed By: #### E TH, SALYC, ACET, CMP #### [facility] [address] [place] [address] Dr. Erlinda Rivera Hemoglobin (Bld) [Mass/Vol] 10.4 g/dL Critically low 12.0-16.0 [facility] Comment on above: Performed By: #### E TH, SALYC, ACET, CMP #### [facility] [address] [place] [address] Dr. Erlinda Rivera IG # 0.07 10e3/ul Critically high 0.00-0.03 [facility] Comment on above: Performed By: #### E TH, SALYC, ACET, CMP #### [facility] [address] [place] [address] Dr. Erlinda Rivera IG % 1.2 % Critically high 0.0-0.5 [facility] Comment on above: Performed By: #### E TH, SALYC, ACET, CMP #### [facility] [address] [place] [address] Dr. Erlinda Rivera LYMPH # 1.3 103/ul Normal 1.2-3.8 [facility] Comment on above: Performed By: #### E TH, SALYC, ACET, CMP #### [facility] [address] [place] [address] Dr. Erlinda Rivera Lymphocytes/100 WBC (Bld) 23.4 % Normal 20.5-60.0 [facility] Comment on above: Performed By: #### E TH, SALYC, ACET, CMP #### [facility] [address] [place] [address] Dr. Erlinda Rivera MANUAL DIFF REQ NO Normal [facility] Comment on above: Performed By: #### E TH, SALYC, ACET, CMP #### [facility] [address] [place] [address] Dr. Erlinda Rivera MCH (RBC) [Entitic mass] 33.8 pg Normal 26.7-34.0 [facility] Comment on above: Performed By: #### E TH, SALYC, ACET, CMP #### [facility] [address] [place] [address] Dr. Erlinda Rivera MCHC (RBC) [Mass/Vol] 32.9 g/dL Normal 29.9-35.2 [facility] Comment on above: Performed By: #### E TH, SALYC, ACET, CMP #### [facility] [address] [place] [address] Dr. Erlinda Rivera MCV (RBC) [Entitic vol] 102.6 fL Critically high 81.0-99 .0 [facility] Comment on above: Performed By: #### E TH, SALYC, ACET, CMP #### [facility] [address] [place] [address] Dr. Erlinda Rivera MONO # 0.4 103/ul Normal 0.3-0.8 [facility] Comment on above: Performed By: #### E TH, SALYC, ACET, CMP #### [facility] [address] [place] [address] Dr. Erlinda Rivera Monocytes/100 WBC (Bld) 6.9 % Normal 1.7-12.0 [facility] Comment on above: Performed By: #### E TH, SALYC, ACET, CMP #### [facility] [address] [place] [address] Dr. Erlinda Rivera NEUT # 3.8 103/ul Normal 1.4-6.5 [facility] Comment on above: Performed By: #### E TH, SALYC, ACET, CMP #### [facility] [address] [place] [address] Dr. Erlinda Rivera Neutrophils/100 WBC (Bld) 66.3 % Normal 43.0-75.0 [facility] Comment on above: Performed By: #### E TH, SALYC, ACET, CMP #### [facility] [address] [place] [address] Dr. Erlinda Rivera Platelet mean volume (Bld) [Entitic vol] 11.4 fL Normal 9.5-13.5 [facility] Comment on above: Performed By: #### E TH, SALYC, ACET, CMP #### [facility] [address] [place] [address] Dr. Erlinda Rivera PLT 150 103/ul Normal 150-450 [facility] Comment on above: Performed By: #### E TH, SONIA ACET, CMP #### [facility] [address] [place] [address] Dr. Erlinda Rivera RBC 3.08 106/ul Critically low 4.20-5.40 [facility] Comment on above: Performed By: #### E TH, SONIA ACET, CMP #### [facility] [address] [place] [address] Dr. Erlinda Rivera WBC 5.7 103/ul Normal 4.0-11.0 [facility] Comment on above: Performed By: #### E TH, SONIA ACET, CMP #### [facility] [address] [place] [address] Dr. Erlinda Rivera PROF 14(COMP METB)on 022 Albumin [Mass/Vol] 2.9 g/dL Critically low 3.4-5.0 [facility] Comment on above: Performed By: #### Sakina DE PAZ UMICRO #### [facility] [address] [place] [address] Dr. Erlinda Rivera Albumin/Globulin [Mass ratio] 1.0 {ratio} Normal [facility] Comment on above: Performed By: #### Sakina DE PAZ UMICRO #### [facility] [address] [place] [address] Dr. Erlinda Rivera ALP [Catalytic activity/Vol] 48 U/L Normal 46-116 [facility] Comment on above: Performed By: #### Sakina DE PAZ UMICRO #### [facility] [address] [place] [address] Dr. Erlinda Rivera ALT [Catalytic activity/Vol] 97 U/L Critically high 14-59 [facility] Comment on above: Performed By: #### Sakina DE PAZ UMICRO #### [facility] [address] [place] [address] Dr. Erlinda Rivera Anion gap [Moles/Vol] 8.5 mmol/L Normal [facility] Comment on above: Performed By: #### E RUR, UMICRO #### [facility] [address] [address] [address] Erlinda Rivera AST [Catalytic activity/Vol] 112 U/L Critically high 15-37 [facility] Comment on above: Performed By: #### E ZANDRA UMICRO #### [facility] [address] [address] [address] Erlinda Rivera Bilirubin [Mass/Vol] 0.2 mg/dL Normal 0.2-1.0 [facility] Comment on above: Performed By: #### Sakina DE PAZ UMICRO #### [facility] [address] [place] [address] Dr. Erlinda Rivera Calcium [Mass/Vol] 8.2 mg/dL Critically low 8.5-10.1 [facility] Comment on above: Performed By: #### Sakina DE PAZ UMICRO #### [facility] [address] [place] [address] Dr. Erlinda Rivera Chloride [Moles/Vol] 106 mmol/L Normal 98-107 [facility] Comment on above: Performed By: #### Sakina DE PAZ UMICRO #### [facility] [address] [address] [address] Erlinda Rivera CO2 [Moles/Vol] 29.5 mmol/L Normal 21.0-32.0 [facility] Comment on above: Performed By: #### Sakina DE PAZ UMICRO #### [facility] [address] [address] [address] Erlinda Rivera Creatinine [Mass/Vol] 0.79 mg/dL Normal 0.55-1.02 [facility] Comment on above: Performed By: #### Sakina DE PAZ UMICRO #### [facility] [address] [place] [address] Dr. Erlinda Rivera EGFR-AF CITIZEN OF [place] >60 Normal >=60 [facility] Comment on above: Performed By: #### Sakina DE PAZ UMICRO #### [facility] [address] [address] [address] Erlinda Rivera EGFR-NON AF CITIZEN OF [place] >60 Normal >=60 [facility] Comment on above: Performed By: #### SEBASTIÁN SOTELORO #### [facility] [address] [address] [address] Erlinda Rivera Globulin (S) [Mass/Vol] 3.0 g/dL Normal T [facility] Comment on above: Performed By: #### SEBASTIÁN SOTELORO #### [facility] [address] [address] [address] Erlinda Rivera Glucose [Mass/Vol] 86 mg/dL Normal 74-106 [facility] Comment on above: Performed By: #### SEBASTIÁN SOTELORO #### [facility] [address] [place] [address] Dr. Erlinda Rivera Potassium [Moles/Vol] 4.0 mmol/L Normal 3.5-5.1 [facility] Comment on above: Performed By: #### SEBASTIÁN SOTELORO #### [facility] [address] [place] [address] Dr. Erlinda Rivera Protein [Mass/Vol] 5.9 g/dL Critically low 6.4-8.2 [facility] Comment on above: Performed By: #### GHASSAN SOTELO #### [facility] [address] [place] [address] Dr. Erlinda Rivera Sodium [Moles/Vol] 140 mmol/L Normal 136-145 [facility] Comment on above: Performed By: #### SEBASTIÁN SOTELORO #### [facility] [address] [place] [address] Dr. Erlinda Rivera Urea nitrogen [Mass/Vol] 8.0 mg/dL Normal 7.0-18.0 [facility] Comment on above: Performed By: #### SEBASITÁN SOTELORO #### [facility] [address] [place] [address] Dr. Erlinda Rivera Urea nitrogen/Creatinine [Mass ratio] 10.1 mg/mg Normal [facility] Comment on above: Performed By: #### SEBASTIÁN SOTELORO #### [facility] [address] [place] [address] Dr. Erlinda Rivera TSHon 03-24-2022 TSH 1.362 uIU/mL Normal 0.358-3.740 [facility] Comment on above: Performed By: #### GHASSAN SOTELO #### [facility] [address] [address] [address] Erlinda Rivera Bilirubin Test strip Ql (U)O rdered By: Miah Abreu on 03-21-2022 Bilirubin Ql (U) Negative Negative [facility] Color Auto (U)Ordered By: Haroldo Abreu on 03-21-2022 Color (U) Yellow Yellow [facility] Ketones Auto test strip (U) [Mass/Vol]Ordered By: Miah Abreu on 03-21-2022 Ketones (U) [Mass/Vol] Negative Negative Fi [facility] Nitrite Test strip Ql (U)Ord ered By: Miah Abreu on 03-21-2022 Nitrite Ql (U) Negative Negative [facility] Protein Auto test strip (U) [Mass/Vol]Ordered By: Miah Abreu on 03-21-2022 Protein (U) [Mass/Vol] Negative Negative Fi [facility] Specific gravity Auto test s trip (U) [Rel density]Ordered By: Miah Abreu on 03-21-2022 Specific gravity (U) [Rel density] 1.003 1.001-1.030 [facility] Urine clarity by refractomet ry automatedOrdered By: Miah Abreu on 03-21-2022 Clarity Refractometry automated (U) Clear Clear [facility] Urine glucose measurement by automated test strip (mass/volume)Ordered By: Miah Abreu on 03-21-2022 Glucose Auto test strip (U) [Mass/Vol] Normal mg/dL Normal [facility] Urine hemoglobin detection b y automated test stripOrdered By: Maih Abreu on 03-21-2022 Hemoglobin Auto test strip Ql (U) Negative Negative [facility] Urine leukocyte esterase det ection by automated test stripOrdered By: Miah Abreu on 03-21-2022 Leukocyte esterase Auto test strip Ql (U) Negative Negative [facility] Urobilinogen Auto test strip (U) [Mass/Vol]Ordered By: Miah Abreu on 03-21-2022 Urobilinogen (U) [Mass/Vol] Normal mg/dL Normal [facility] pH Auto test strip (U)Ordere d By: Miah Abreu on 03-21-2022 pH (U) 6.0 [pH] 5.0-9.0 [facility] Cholesterol [Mass/volume] in Serum or PlasmaOrdered By: Miah Abreu on 03-20-2022 Cholesterol [Mass/Vol] 175 mg/dL 140-200 [facility] Comment on above: Chol less than 200 m g/dl low risk Chol 201-239 mg/dl borderline risk Chol 240 mg/dl and greater high risk Cholesterol in LDL Calc [Mas s/Vol]Ordered By: Miah Abreu on 03-20-2022 Cholesterol in LDL [Mass/Vol] 117 mg/dL 0-100 [facility] Comment on above: LDL ATP III CLASSIFI CATION LDL less than 100 mg/dL Optimal LDL 100-129 mg/dL Near or above optimal LDL 130-159 mg/dL Borderline high LDL 160-189 mg/dL High LDL greater than 189 mg/dL Very high Cholesterol in VLDL Calc [Ma ss/Vol]Ordered By: Miah Abreu on 03-20-2022 Cholesterol in VLDL [Mass/Vol] 16 mg/dL [facility] No Panel InformationOrdered By: Miah Abreu on 03-20-2022 25-Hydroxy Vitamin D Total 40.0 ng/mL 30-100 [facility] Comment on above: VITAMIN D STATUS 25( [place])VITAMIN D RANGE (ng/mL) Deficient <20 Insufficient 20 to <30 Sufficient 30 to 100 Reference: Roque MF,Jhony NC, Janina LAYTON, et al. Evaluation,treatment, and prevention of vitamin D deficiency; an Endocrine Society clinical practice guideline. JCEM. 2010; 96(7):1911-30. Serum or plasma high density lipoprotein (HDL) cholesterol measurementOrdered By: Miah Abreu on 03-20-2022 Cholesterol in HDL [Mass/Vol] 42 mg/dL 35-85 [facility] Comment on above: HDL CHOL ATP-III CLA SSIFICATION Cardiovascular Risk HDL > or equal to 60 mg/dL LOW HDL < 40 mg/dL HIGH Serum or plasma total choles terol/high density lipoprotein (HDL) cholesterol mass ratOrdered By: Miah Abreu on 03-20-2022 Cholesterol.total/Rachel sterol in HDL [Mass ratio] 4.2 {ratio} <5.0 [facility] TSH DL <= 0.005 mIU/L QnOrde red By: Miah Abreu on 03-20-2022 TSH Qn 1.08 m[IU]/L 0.45-5.33 [facility] Triglyceride [Mass/volume] i n Serum or PlasmaOrdered By: Miah Abreu on 03-20-2022 Triglyceride [Mass/Vol] 81 mg/dL 35-149 [facility] Comment on above: TRIG ATP III CLASSIF ICATION TRIG less than 150 mg/dL Normal TRIG 150-199 mg/dL Borderline high TRIG 200-500 mg/dL High TRIG greater than 500 mg/dL Very high Standard traceable to the Center for Disease Conrtrol and Prevention (CDC) test method. ACETAMINOPHENon 03-19-2022 Acetaminophen [Mass/Vol] ug/mL Critically low 10.0-30.0 [facility] Comment on above: Performed By: #### E GHASSAN DE PAZ #### [facility] [address] [place] [address] Dr. Erlinda Rivera CBC AUTO DIFFon 03-19-2022 BASO # 0.1 103/ul Normal 0.0-0.1 [facility] Comment on above: Performed By: #### C VDTBH #### [facility] [address] [place] [address] Dr. Erlinda Rivera Basophils/100 WBC (Bld) 0.6 % Normal 0.2-2.0 [facility] Comment on above: Performed By: #### C VDTBH #### [facility] [address] [place] [address] Dr. Erlinda Rivera EO # 0.1 103/ul Normal 0.0-0.7 [facility] Comment on above: Performed By: #### C VDTBH #### [facility] [address] [place] [address] Dr. Erlinda Rivera Eosinophils/100 WBC (Bld) 0.7 % Critically low 0.9-7.0 [facility] Comment on above: Performed By: #### C VDTBH #### [facility] [address] [place] [address] Dr. Erlinda Rivera Erythrocyte distribution width (RBC) [Ratio] 12.2 % Normal 11.0-15.0 [facility] Comment on above: Performed By: #### C VDTBH #### [facility] [address] [place] [address] Dr. Erlinda Rivera Hematocrit (Bld) [Volume fraction] 39.5 % Normal 36.0-48.0 [facility] Comment on above: Performed By: #### C VDTBH #### [facility] [address] [place] [address] Dr. Erlinda Rivera Hemoglobin (Bld) [Mass/Vol] 13.2 g/dL Normal 12.0-16.0 [facility] Comment on above: Performed By: #### C VDTBH #### [facility] [address] [place] [address] Dr. Erlinda Rivera IG # 0.03 10e3/ul Normal 0.00-0.03 [facility] Comment on above: Performed By: #### C VDTBH #### [facility] [address] [place] [address] Dr. Erlinda Rivera IG % 0.3 % Normal 0.0-0.5 [facility] Comment on above: Performed By: #### C VDTBH #### [facility] [address] [place] [address] Dr. Erlinda Rivera LYMPH # 2.5 103/ul Normal 1.2-3.8 [facility] Comment on above: Performed By: #### C VDTBH #### [facility] [address] [place] [address] Dr. Erlinda Rivera Lymphocytes/100 WBC (Bld) 26.9 % Normal 20.5-60.0 [facility] Comment on above: Performed By: #### C VDTBH #### [facility] [address] [place] [address] Dr. Erlinda Rivera MANUAL DIFF REQ NO Normal [facility] Comment on above: Performed By: #### C VDTBH #### [facility] [address] [place] [address] Dr. Erlinda Rivera MCH (RBC) [Entitic mass] 34.3 pg Critically high 26.7-34.0 [facility] Comment on above: Performed By: #### C VDTBH #### [facility] [address] [place] [address] Dr. Erlinda Rivera MCHC (RBC) [Mass/Vol] 33.4 g/dL Normal 29.9-35.2 [facility] Comment on above: Performed By: #### C VDTBH #### [facility] [address] [place] [address] Dr. Erlinda Rivera MCV (RBC) [Entitic vol] 102.6 fL Critically high 81.0-99 .0 [facility] Comment on above: Performed By: #### C VDTBH #### [facility] [address] [place] [address] Dr. Erlinda Rivera MONO # 0.8 103/ul Normal 0.3-0.8 [facility] Comment on above: Performed By: #### C VDTBH #### [facility] [address] [place] [address] Dr. Erlinda Rivera Monocytes/100 WBC (Bld) 8.7 % Normal 1.7-12.0 [facility] Comment on above: Performed By: #### C VDTBH #### [facility] [address] [place] [address] Dr. Erlinda Rivera NEUT # 5.9 103/ul Normal 1.4-6.5 [facility] Comment on above: Performed By: #### C VDTBH #### [facility] [address] [place] [address] Dr. Erlinda Rivera Neutrophils/100 WBC (Bld) 62.8 % Normal 43.0-75.0 [facility] Comment on above: Performed By: #### C VDTBH #### [facility] [address] [place], [place] [address] Dr. Erlinda Rivera Platelet mean volume (Bld) [Entitic vol] 10.6 fL Normal 9.5-13.5 [facility] Comment on above: Performed By: #### C VDTBH #### [facility] [address] [place] [address] [address] Erlinda Rivera PLT 213 103/ul Normal 150-450 [facility] Comment on above: Performed By: #### C VDTBH #### [facility] [address] [place], [place] [address] Dr. Erlinda Rivera RBC 3.85 106/ul Critically low 4.20-5.40 [facility] Comment on above: Performed By: #### C VDTBH #### [facility] [address] [id number] Erlinda Rivera WBC 9.3 103/ul Normal 4.0-11.0 [facility] Comment on above: Performed By: #### C VDTBH #### [facility] [address] [place], [place] [address] CHEST W CONon 03-19-2022 CT CHEST W CON EXAMINATION: CT CHES T W CON, CT ABD/PELV W CON HISTORY: CHEST PAIN, UNSPECIFIED COMPARISON: CT abdomen pelvis performed 03/09/2019. TECHNIQUE: CT examination of the chest, abdomen, and pelvis after the administration of intravenous contrast. Coronal and sagittal reformations were performed. Dose reduction techniques were achieved by using automated exposure control and/or adjustment of mA and/or kV according to patient size and/or use of iterative reconstruction technique. FINDINGS: CT thorax: The thoracic aorta is normal in course and caliber without aneurysm. The heart appears normal with no evidence of pericardial effusion. There are no enlarged mediastinal lymph nodes. Calcified right hilar adenopathy and calcified right upper lobe nodule compatible with remote benign granulomatous process. The tracheobronchial tree is patent. The lungs are clear. There is no consolidation, mass or pleural effusion. There is no pneumothorax. CT abdomen and pelvis: The gallbladder, spleen, pancreas and bilateral adrenal glands are unremarkable. The liver is mildly diffusely hypoattenuating suggesting hepatic steatosis without focal abnormality. The hepatic and portal veins are normally opacified. The bilateral kidneys demonstrate normal enhancement without hydronephrosis. The bilateral ureters demonstrate no gross abnormality or obstruction. The stomach and small bowel are unremarkable. The appendix is visualized without inflammatory change. The colon is unremarkable. The bladder appears unremarkable. There is no evidence of aortic aneurysm present. No enlarged lymph nodes are seen. No free air or free fluid is seen. The uterus is surgically absent. Osseous structures: The anterior cervical spine fusion hardware is present. Anterior remote fifth rib fracture deformity is present at the costochondral junction. IMPRESSION: CT thorax: No acute traumatic injury. The lungs are clear. CT abdomen and pelvis: 1. No acute traumatic injury. 2. Hepatic steatosis. Electronically authenticated by: MARIPOSA MARTIN Date: 2022-03-19 05:08 Normal [facility] CT CSPINE WO CONon 2 CT CSPINE WO CON EXAMINATION: CT CSPINE WO CON CLINICAL INDICATION: Trauma. TECHNIQUE: Axial CT images of the cervical spine were obtained without intravenous contrast administration. Reformatted images in coronal and sagittal planes were then acquired using the axial source data. Automated dose lowering techniques and/or adjustment according to patient size were utilized for this examination. COMPARISON: CT cervical spine 05/20/2014 FINDINGS: Postsurgical changes visualized secondary to anterior fixation plate with fixation screws at the C5-C6 level with discectomy and intervertebral disc spacer. The surgical hardware appears intact. There is straightening of the normal cervical lordotic curvature. The vertebral body heights are preserved. The dens and atlantodens interval is intact. The ring of C1 is intact. There is no evidence for an acute fracture. The posterior elements are intact. The cervical spine alignment is maintained without evidence for significant spondylolisthesis. The prevertebral soft tissues are unremarkable. There is a disc osteophyte complex visualized at C4-C5 contributing to moderate central canal narrowing. Disc osteophyte complex visualized at the C6-C7 level contributing to mild to moderate central canal narrowing. Severe left neuroforaminal narrowing visualized at C4-C5 secondary to uncovertebral spur formation. Moderate to severe left neuroforaminal narrowing visualized at C6-C7 secondary to uncovertebral spur formation. The visualized lung david appear unremarkable. IMPRESSION: 1. Multilevel degenerative changes without evidence for an acute fracture. The surgical hardware appears intact. Electronically authenticated by: MARIMAR VIVAS Date: 2022-03-19 04:45 Normal [facility] CT FACIAL BONES WO CONon CT FACIAL BONES WO CON EXAMINATION: CT FACIAL BONES WO CON CLINICAL INDICATION: Trauma. TECHNIQUE: Axial CT images of the maxillofacial bones were obtained. Images were then reconstructed in the coronal plane using source data. There was no intravenous contrast administered. Automated dose lowering techniques and/or adjustment according to patient size were utilized for this examination. COMPARISON: None at the time of this dictation. FINDINGS: The presence of dental amalgam causes streak artifact that obscures portions of the mandible and maxilla and the soft tissues of the oral cavity and oropharynx thus limiting evaluation in these regions. There are no acute fractures of the maxillofacial bones, mandible, or imaged portions of the skull base and temporal bones. There is no mandibular subluxation or dislocation. Mild to moderate Soft tissue swelling visualized along the right maxillary region and periorbital region. Mild soft tissue swelling visualized along the left maxillary and periorbital region... The paranasal sinuses, mastoid air cells, and middle ear cavities are clear. IMPRESSION: 1. No acute maxillofacial fracture visualized. 2. Mild to moderate soft tissue swelling visualized along the right maxillary and periorbital region. Mild soft tissue swelling visualized along the left maxillary and periorbital region. Electronically authenticated by: MARIMAR VIVAS Date: 2022-03-19 04:34 Normal [facility] CT HEAD WO CONon 03-19-2022 CT HEAD WO CON EXAM: CT HEAD WO CON CLINICAL INDICATION: HEADACHE COMPARISON: 05/20/2014 TECHNIQUE: Axial CT images of the brain were obtained without contrast. Dose reduction techniques were achieved by using automated exposure control and/or adjustment of mA and/or kV according to patient size and/or use of iterative reconstruction technique. FINDINGS: Brain parenchyma: No mass effect or midline shift is seen. Morales-white differentiation is maintained. No findings suspicious for intracranial hemorrhage. No findings suggesting acute stroke. Periventricular hypoattenuation / patchy white matter hypodensities are statistically most often related to small vessel ischemic disease. There are small hypodensities visualized within the bilateral globus pallidus, findings may be seen in carbon monoxide poisoning versus other etiologies, this is a new finding when compared to the previous exam of 05/20/2014. Ventricles and extra-axial spaces: Ventricles are concordant with sulci. No findings suggesting hydrocephalus. Visualized paranasal sinuses: No findings suggesting acute sinusitis. Mastoid air cells: Clear. Included portions of the orbits:Included portions of the orbits with no evidence of fracture or other acute pathology. Bones: No fracture is seen. Impression: 1. No evidence for an acute intracranial abnormality. 2. Small hypodensities noted within the bilateral globus pallidus, findings are nonspecific and may be seen in patients with carbon dioxide poisoning versus other etiologies, short-term follow-up with MRI may be done to further evaluate. Electronically authenticated by: MARIMAR VIVAS Date: 2022-03-19 04:30 Normal [facility] Covid-19 PCR ([facility])on 03-03 SARS-CoV-2 (COVID-19) RNA TISHA+probe Ql (Unsp spec) Not detected Normal NOT DETECTED [facility] Comment on above: Result Comment: When diagnostic testing is negative, the possibility of a false negative should be considered in the context of a patient's recent exposures and the presence of clinical signs and symptoms consistent with SARS-CoV-2. This test is not yet approved or cleared by the [place] FDA. When there are no FDA-approved or cleared tests available, and other criteria are met, FDA can make tests available under an emergency access mechanism called an Emergency Use Authorization (EUA). The EUA for this test is supported by the Instrumentation And Controls Designer of Health and Human Service's declaration that circumstances exist to justify the emergency use of in vitro diagnostics for the detection and/or diagnosis of the virus that causes COVID-19. This EUA will remain in effect for the duration of the COVID-19 declaration justifying emergency of IVDs, unless it is terminated or revoked by the FDA (after which the test may no longer be used). Performed By: #### E SONIA TORRES ACET, CMP #### [facility] [address] [place] [address] [address] Erlinda Rivera DRUG SCREEN RAPID (URINE)on 03-19-2022 AMP Positive Abnormal NEGATIVE [facility] Comment on above: Performed By: #### E GHASSAN DE PAZ #### [facility] [address] [place], [place] [address] Dr. Erlinda Rivera BAR Negative Normal NEGATIVE [facility] Comment on above: Performed By: #### E RUR, UMICRO #### [facility] [address] [place] [address] Dr. Erlinda Rivera BUP Negative Normal NEGATIVE [facility] Comment on above: Performed By: #### E RUR, UMICRO #### [facility] [address] [place] [address] Dr. Erlinda Rivera BZO Positive Abnormal NEGATIVE [facility] Comment on above: Performed By: #### E RUR, UMICRO #### [facility] [address] [place] [address] Dr. Erlinda Rivera DOUGLAS Positive Abnormal NEGATIVE [facility] Comment on above: Performed By: #### E RUR, UMICRO #### [facility] [address] [place] [address] Dr. Erlinda Rivera CUT-OFFS SEE BELOW Normal [facility] Comment on above: Result Comment: AMP (Amphetamine): 500ng/mL, BAR (Barbituates): 200 ng/mL, BZO (Benzodiazepines): 150 ng/mL, BUP (Buprenorphine): 10 ng/mL, DOUGLAS (Cocaine): 150 ng/mL, mAMP (Methamphetamine): 500 ng/mL, MTD (Methadone): 200 ng/mL, OPI (Opiates): 100 ng/mL, OXY (Oxycodone): 100 ng/mL, PCP (Phencyclidine): 25 ng/mL, PPX (Propoxyphene): 300 ng/mL, THC (Cannabinoids): 50 ng/mL, TCA (Trycyclic Antidepressants): 300 ng/mL Performed By: #### E RUR, UMICRO #### [facility] [address] [place] [address] Dr. Erlinda Rivera DRUG CUT HEADER DRUG CLASS TEST SYSTEM CUT-OFF CONCENTRATIONS ARE FOLLOWS: Normal [facility] Comment on above: Performed By: #### E RUR, UMICRO #### [facility] [address] [place] [address] Dr. Erlinda Rivera mAMP Positive Abnormal NEGATIVE [facility] Comment on above: Performed By: #### E RUR, UMICRO #### [facility] [address] [place] [address] Dr. Erlinda Rivera MTD Negative Normal NEGATIVE [facility] Comment on above: Performed By: #### E RUR, UMICRO #### [facility] [address] [place] [address] Dr. Erlinda Rivera OPI Positive Abnormal NEGATIVE [facility] Comment on above: Performed By: #### E RUR, UMICRO #### [facility] [address] [place] [address] Dr. Erlinda Rivera OXY Negative Normal NEGATIVE [facility] Comment on above: Performed By: #### E RUR, UMICRO #### [facility] [address] [place] [address] Dr. Erlinda Rivera PCP Negative Normal NEGATIVE [facility] Comment on above: Performed By: #### E RUR, UMICRO #### [facility] [address] [place] [address] Dr. Erlinda Rivera PPX Negative Normal NEGATIVE [facility] Comment on above: Performed By: #### E RUR, UMICRO #### [facility] [address] [place] [address] Dr. Erlinda Rivera TCA Negative Normal NEGATIVE [facility] Comment on above: Performed By: #### E RUR, UMICRO #### [facility] [address] [place] [address] Dr. Erlinda Rivera THC Positive Abnormal NEGATIVE [facility] Comment on above: Performed By: #### E RUR, UMICRO #### [facility] [address] [place] [address] Dr. Erlinda Rivera ER URINE PROFILEon 2 Bilirubin Ql (U) Negative Normal NEGATIVE [facility] Comment on above: Performed By: #### E RUR, UMICRO #### [facility] [address] [place] [address] Dr. Erlinda Rivera Clarity (U) CLEAR Normal CLEAR [facility] Comment on above: Performed By: #### E RUR, UMICRO #### [facility] [address] [place] [address] Dr. Erlinda Rivera Color (U) YELLOW Normal YELLOW [facility] Comment on above: Performed By: #### GHASSAN SOTELO #### [facility] [address] [place] [address] Dr. Erlinda ALFONSO A micrscopic examination will be performed if indicated. Normal [facility] Comment on above: Performed By: #### SEBASTIÁN SOTEOLRO #### [facility] [address] [place] [address] Dr. Erlinda Rivera Glucose Ql (U) Negative Normal NEGATIVE [facility] Comment on above: Performed By: #### SEBASTIÁN SOTELORO #### [facility] [address] [place] [address] Dr. Erlinda Rivera Hemoglobin Ql (U) Negative Normal NEGATIVE [facility] Comment on above: Performed By: #### SEBASTIÁN SOTELORO #### [facility] [address] [place] [address] Dr. Erlinda Rivera Ketones Ql (U) Negative Normal NEGATIVE [facility] Comment on above: Performed By: #### SEBASTIÁN SOTELORO #### [facility] [address] [place] [address] Dr. Erlinda Rivera LEUKOCYTES Negative Normal NEGATIVE [facility] Comment on above: Performed By: #### SEBASTIÁN SOTELORO #### [facility] [address] [place] [address] Dr. Erlinda Rivera Nitrite Ql (U) Negative Normal NEGATIVE [facility] Comment on above: Performed By: #### SEBASTIÁN SOTELORO #### [facility] [address] [place] [address] Dr. Erlinda Rivera pH (U) 5.5 [pH] Normal 5-9 [facility] Comment on above: Performed By: #### SEBASTIÁN SOTLEORO #### [facility] [address] [place] [address] Dr. Erlinda Rivera SPEC GRAVITY 1.010 Normal 1.005-<=1.025 [facility] Comment on above: Performed By: #### E RUR, UMICRO #### [facility] [address] [place] [address] Dr. Erlinda Rivera UA PROTEIN Negative Normal NEGATIVE/ TRACE [facility] Comment on above: Performed By: #### E RUR, UMICRO #### [facility] [address] [place] [address] Dr. Erlinda Rivera UR MICRO IND NOT INDICATED Normal [facility] Comment on above: Performed By: #### E RUR, UMICRO #### [facility] [address] [place] [address] Dr. Erlinda Rivera Urobilinogen Qn (U) 0.2 {Shannan'U}/dL Normal 0.2 - 1. 0 [facility] Comment on above: Performed By: #### E RUR, ESTHERICRO #### [facility] [address] [place] [address] Dr. Erlinda Rivera ETHANOL (BLD ALC)on 03-19-20 22 ALC NOTE NOTE: 80 mg/dl is th e legal limit for a blood alcohol level Normal [facility] Comment on above: Performed By: #### E TH, SALYC ACET, CMP #### [facility] [address] [place] [address] Dr. Erlinda Rivera Ethanol [Mass/Vol] mg/dL Normal [facility] Comment on above: Performed By: #### E TH, SONIA ACET, CMP #### [facility] [address] [place] [address] Dr. Erlinda Rivera PREG HCG QUALon 03-19-2022 , QUAL Negative Normal NEGATIVE [facility] Comment on above: Performed By: #### E TH, SALYC, ACET, CMP #### [facility] [address] [place] [address] Dr. Erlinda Rivera PROF 14(COMP METB)on 022 Albumin [Mass/Vol] 4.0 g/dL Normal 3.4-5.0 [facility] Comment on above: Performed By: #### E RUR, UMICRO #### [facility] [address] [address] [address] Erlinda Rivera Albumin/Globulin [Mass ratio] 1.2 {ratio} Normal [facility] [facility] Comment on above: Performed By: #### SEBASTIÁN SOTELORO #### [facility] [address] [place] [address] Dr. Erlinda Rivera ALP [Catalytic activity/Vol] 53 U/L Normal 46-116 [facility] Comment on above: Performed By: #### Sakina DE PAZ UMICRO #### [facility] [address] [place] [address] Dr. Erlinda Rivera ALT [Catalytic activity/Vol] 77 U/L Critically high 14-59 [facility] Comment on above: Performed By: #### Sakina DE PAZ UMICRO #### [facility] [address] [place] [address] Dr. Erlinda Rivera Anion gap [Moles/Vol] 8.9 mmol/L Normal [facility] Comment on above: Performed By: #### Sakina DE PAZ UMICRO #### [facility] [address] [place] [address] Dr. Erlinda Rivera AST [Catalytic activity/Vol] 75 U/L Critically high 15-37 [facility] Comment on above: Performed By: #### Sakina DE PAZ UMICRO #### [facility] [address] [place] [address] Dr. Erlinda Rivera Bilirubin [Mass/Vol] 0.8 mg/dL Normal 0.2-1.0 [facility] Comment on above: Performed By: #### Sakina DE PAZ UMICRO #### [facility] [address] [place] [address] Dr. Erlinda Rivera Calcium [Mass/Vol] 8.7 mg/dL Normal 8.5-10.1 [facility] Comment on above: Performed By: #### Sakina DE PAZ UMICRO #### [facility] [address] [place] [address] Dr. Erlinda Rivera Chloride [Moles/Vol] 103 mmol/L Normal 98-107 [facility] Comment on above: Performed By: #### E RUR, UMICRO #### [facility] [address] [address] [address] Erlinda Rivera CO2 [Moles/Vol] 30.9 mmol/L Normal 21.0-32.0 [facility] Comment on above: Performed By: #### E RUR, UMICRO #### [facility] [address] [address] [address] Erlinda Rivera Creatinine [Mass/Vol] 0.90 mg/dL Normal 0.55-1.02 [facility] Comment on above: Performed By: #### E BETTER, UMICRO #### [facility] [address] [address] [address] Erlinda Rivera EGFR-AF CITIZEN OF [place] >60 Normal >=60 [facility] Comment on above: Performed By: #### E BETTER, UMICRO #### [facility] [address] [address] [address] Erlinda Rivera EGFR-NON AF CITIZEN OF [place] >60 Normal >=60 [facility] Comment on above: Performed By: #### Sakina DE PAZ, UMICRO #### [facility] [address] [address] [address] Erlinda Rivera Globulin (S) [Mass/Vol] 3.4 g/dL Normal [facility] Comment on above: Performed By: #### E BETTER, UMICRO #### [facility] [address] [address] [address] Erlinda Rivera Glucose [Mass/Vol] 128 mg/dL Critically high 74-106 [facility] Comment on above: Performed By: #### E BETTER, UMICRO #### [facility] [address] [address] [address] Erlinda Rivera Potassium [Moles/Vol] 3.8 mmol/L Normal 3.5-5.1 [facility] Comment on above: Performed By: #### E RUR, UMICRO #### [facility] [address] [address] [address] Erlinda Rivera Protein [Mass/Vol] 7.4 g/dL Normal 6.4-8.2 [facility] Comment on above: Performed By: #### GHASSAN SOTELO #### [facility] [address] [place] [address] Dr. Erlinda Rivera Sodium [Moles/Vol] 139 mmol/L Normal 136-145 [facility] Comment on above: Performed By: #### GHASSAN SOTELO #### [facility] [address] [place] [address] Dr. Erlinda Rivera Urea nitrogen [Mass/Vol] 7.0 mg/dL Normal 7.0-18.0 [facility] Comment on above: Performed By: #### GHASSAN SOTELO #### [facility] [address] [place] [address] Dr. Erlinda Rivera Urea nitrogen/Creatinine [Mass ratio] 7.8 mg/mg Normal [facility] Comment on above: Performed By: #### GHASSAN SOTELO #### [facility] [address] [place] [address] Dr. Erlinda Rievra SALICYLATEon 03-19-2022 SALICYLATE <2.8 Normal <=19.9 [facility] Comment on above: Performed By: #### GHASSAN SOTELO #### [facility] [address] [place] [address] Dr. Erlinda Rivera XR CHEST 1 Von 03-19-2022 XR CHEST 1 V EXAM: XR CHEST 1 V HISTORY: CHEST PAIN, UNSPECIFIED trauma. COMPARISON: Chest x-ray performed 08/12/2016. TECHNIQUE: Single frontal view of the chest is obtained. FINDINGS: The cardiomediastinal silhouette is nonenlarged. Calcified lymph nodes in the right paratracheal space appear unchanged compatible with remote benign process. Pulmonary vascular markings are within normal limits. There is no focal airspace consolidation. The costophrenic angles are clear. No pneumothorax. The osseous structures appear grossly intact. IMPRESSION: No acute cardiopulmonary process identified. Electronically authenticated by: MARIPOSA MARTIN Date: 2022-03-19 04:21 Normal [facility] Vital Signs Date Time Vital Sign Value Performing Clinician Facility 08-26-2023 07:30-0500 Body temperature 97.9 [degF] [facility] 08-26-2023 07:30-0500 Diastolic blood pressure 87 mm[Hg] [facility] 08-26-2023 07:30-0500 Heart rate 83 /min [facility] 08-26-2023 07:30-0500 Respiratory rate 16 /min [facility] 08-26-2023 07:30-0500 SaO2% (BldA) [Mass fraction] 97 % [facility] 08-26-2023 07:30-0500 Systolic blood pressure 134 mm[Hg] [facility] 08-24-2023 14:51-0500 Body height 157.48 cm [facility] 08-24-2023 01:08-0500 Body weight 97.52 kg [facility] 05-11-2023 14:45-0400 Body height 157.48 cm [employer] Other [employer] [facility] [employer] Other 05-11-2023 14:45-0400 Body mass index (BMI) [Ratio] 36.1 kg/m2 [employer] Other [employer] Other 05-11-2023 14:45-0400 Body weight 89.54 kg [employer] Other [employer] Other 05-01-2023 07:24-0400 Body temperature 97.9 [degF] MD Miah Abreu Work Phone: [facility] 05-01-2023 07:24-0400 Diastolic blood pressure 91 mm[Hg] MD Miah Abreu Work Phone: [facility] 05-01-2023 07:24-0400 Heart rate 86 /min MD Miah Abreu Work Phone: [facility] 05-01-2023 07:24-0400 Respiratory rate 16 /min MD Miah Abreu Work Phone: [facility] 05-01-2023 07:24-0400 SaO2% (BldA) [Mass fraction] 94 % MD Miah Abreu Work Phone: [facility] 05-01-2023 07:24-0400 Systolic blood pressure 141 mm[Hg] MD Miah Abreu Work Phone: [facility] 04-25-2023 15:03-0400 Body height 157.48 cm MD Miah Abreu Work Phone: [facility] 04-25-2023 09:00-0400 Body weight 91.98 kg MD Miah Abreu Work Phone: [facility] 04-17-2023 07:30-0400 Body temperature 98 [degF] MD Miah Abreu Work Phone: [facility] 04-17-2023 07:30-0400 Diastolic blood pressure 92 mm[Hg] MD Miah Abreu Work Phone: [facility] 04-17-2023 07:30-0400 Heart rate 84 /min MD Miah Abreu Work Phone: [facility] 04-17-2023 07:30-0400 Respiratory rate 17 /min MD Miah Abreu Work Phone: [facility] 04-17-2023 07:30-0400 SaO2% (BldA) [Mass fraction] 97 % MD Miah Abreu Work Phone: [facility] 04-17-2023 07:30-0400 Systolic blood pressure 126 mm[Hg] MD Miah Abreu Work Phone: [facility] 04-13-2023 14:37-0400 Body height 157.48 cm MD Miah Abreu Work Phone: [facility] 04-13-2023 07:57-0400 Body weight 87.54 kg MD Miah Abreu Work Phone: [facility] 09-01-2022 07:30-0500 Body temperature 97.7 [degF] [facility] 09-01-2022 07:30-0500 Diastolic blood pressure 83 mm[Hg] [facility] 09-01-2022 07:30-0500 Heart rate 78 /min [facility] 09-01-2022 07:30-0500 Respiratory rate 16 /min [facility] 09-01-2022 07:30-0500 SaO2% (BldA) [Mass fraction] 96 % [facility] 09-01-2022 07:30-0500 Systolic blood pressure 132 mm[Hg] [facility] 08-30-2022 15:01-0500 Body height 157.48 cm [facility] 08-30-2022 12:17-0500 Body weight 86.22 kg [facility] 06-12-2022 07:30-0400 Body temperature 97.6 [degF] [facility] 06-12-2022 07:30-0400 Diastolic blood pressure 68 mm[Hg] [facility] 06-12-2022 07:30-0400 Heart rate 76 /min [facility] 06-12-2022 07:30-0400 Respiratory rate 18 /min [facility] 06-12-2022 07:30-0400 SaO2% (BldA) [Mass fraction] 98 % [facility] 06-12-2022 07:30-0400 Systolic blood pressure 105 mm[Hg] [facility] 06-08-2022 14:29-0400 Body height 157.48 cm [facility] 06-07-2022 09:00-0400 Body weight 81.8 kg [facility] 03-23-2022 07:30-0400 Body temperature 97.6 [degF] [facility] 03-23-2022 07:30-0400 Diastolic blood pressure 79 mm[Hg] [facility] 03-23-2022 07:30-0400 Heart rate 76 /min [facility] 03-23-2022 07:30-0400 Respiratory rate 16 /min [facility] 03-23-2022 07:30-0400 SaO2% (BldA) [Mass fraction] 95 % [facility] 03-23-2022 07:30-0400 Systolic blood pressure 118 mm[Hg] [facility] 03-22-2022 16:06-0400 Body height 157.48 cm [facility] 03-22-2022 14:29-0400 Body weight 83 kg [facility] 03-19-2022 14:20-0400 Body mass index (BMI) [Ratio] 29.6 kg/m2 [facility] 07-05-2019 07:38-0400 Body Temperature 97.81 [degF] [facility] [employer] [place], [place] 07-05-2019 07:38-0400 BP Diastolic 48 mm[Hg] [place], [place] 07-05-2019 07:38-0400 BP Systolic 108 mm[Hg] [place], [place] 07-05-2019 07:38-0400 Pulse (Heart Rate) 82 /min [place], [place] 07-05-2019 07:38-0400 Pulse Oximetry 98 % [place], [place] 07-05-2019 07:38-0400 Respiratory Rate 14 /min [facility], [place] 07-02-2019 00:30-0400 BMI (Body Mass Index) 35.67 kg/m2 [place], [place] 07-02-2019 00:30-0400 Body weight 88.45 kg [place], [place] 07-02-2019 00:30-0400 Height 157.5 cm [place] Encounters Encounter Date Encounter Type Care Provider Facility Start: 09-21-2023 End: 09-22-2023 ambulatory CAM GUTIERREZ Not Available Start: 09-15-2023 End: 09-15-2023 ambulatory CAM GUTIERREZ Not Available Start: 09-08-2023 End: 09-08-2023 ambulatory CAM GUTIERREZ Not Available Start: 08-24-2023 End: 08-26-2023 Evaluation and management of inpatient NON STAFF Facility:[facility] Start: 08-23-2023 End: 08-26-2023 Evaluation and management of inpatient [facility] Work Phone: Start: 08-17-2023 End: 08-17-2023 ambulatory CAM GUTIERREZ Not Available Start: 05-11-2023 End: 05-11-2023 ambulatory Efrain Alcazar II Other [employer] Other Start: 05-11-2023 Office outpatient ne w 45 minutes Efrain Ottoniel II [facility] Start: 04-23-2023 ambulatory NON STAFF Facility:[facility] Start: 04-23-2023 End: 05-01-2023 Evaluation and management of inpatient Stephanie Ko Facility:[facility] Start: 04-23-2023 End: 05-01-2023 Evaluation and management of inpatient MD Miah Abreu Work Phone: [facility] Work Phone: Start: 04-13-2023 End: 04-17-2023 Evaluation and management of inpatient Miah Abreu Facility:[facility] Start: 04-13-2023 End: 04-17-2023 Evaluation and management of inpatient MD Miha Abreu Work Phone: [facility] Work Phone: Start: 09-30-2022 End: 09-30-[address] DOCTOR NAGY Facility:[facility] Start: 09-07-2022 End: 09-07-[address] YARON LANG Facility:[facility] Start: 08-29-2022 End: 09-01-2022 Evaluation and management of inpatient [facility] Start: 06-06-2022 End: 06-12-2022 Evaluation and management of inpatient [facility] Start: 06-06-2022 End: 06-06-2022 ambulatory OTTO SIEGEL Facility:[facility] Start: 04-06-2022 End: 04-07-2022 ambulatory [facility] Start: 04-06-2022 End: 04-06-2022 Subsequent hospital visit by physician Branden Vazquez MD Work Phone: [facility] Start: 03-24-2022 End: 03-25-2022 ambulatory EDY PERDOMO Facility:[facility] Start: 03-19-2022 End: 03-23-2022 Evaluation and management of inpatient [facility] Start: 03-19-2022 End: 03-19-[address] DOCTOR BLEVINS Facility:[facility] Start: 07-02-2019 End: 07-05-2019 Evaluation and management of inpatient PREM V INDURTI [facility] Start: 07-01-2019 Patient encounter procedure Branden MORELOS Admitting Comment on above: N/A Start: 04-04-2017 End: 04-05-2017 Ambulatory BENJI BURKS Facility:[facility] Procedures Date Procedure Procedure Detail Performing Clinician Start: 04-23-2023 Aerobic microbial culture MD Miah Abreu Work Phone: Start: 04-06-2022 Antibody hiv-1&hiv-2 single result Juan Luis Whiting [employer] Work Phone: Start: 04-06-2022 Comprehensive metabo lic panel Juan Luis Whiting [employer] Work Phone: Start: 04-06-2022 Smr prim src wet john nt nfct agt Juan Luis Whiting [employer] Work Phone: Start: 04-06-2022 T. PALLIDUM AB Juan Luis cochran [employer] Work Phone: Start: 07-05-2019 DISCHARGE PATIENT SREEK ANTH INDURTI Start: 07-05-2019 PATIENT STATUS (DIRECT) PREM INDURTI Start: 07-02-2019 IP CONSULT TO HISTOR Y AND PHYSICAL PREM INDURTI Start: 07-02-2019 DIET GENERAL PREM INDURTI Start: 07-02-2019 FULL CODE PREM INDURTI Start: 07-02-2019 MONITOR PREM INDURTI Start: 07-02-2019 TOBACCO CESSATION EDUCATION PREM INDURTI Start: 07-02-2019 VITAL SIGNS PREM INDURTI Plan of Treatment Date Care Activity Detail Author Start: 08-26-2023 [facility] Start: 08-25-2023 [facility] Start: 08-24-2023 Referral to clinical construction driver [facility] Start: 08-24-2023 Referral to Reference Assistant [facility] Start: 08-24-2023 Hospital admission [facility] Start: 08-24-2023 [facility] Start: 05-01-2023 [facility] Start: 04-25-2023 Consultation [facility] Start: 04-23-2023 Referral to clinical construction driver [facility] Start: 04-23-2023 Hospital admission [facility] Start: 04-17-2023 [facility] Start: 04-13-2023 Referral to [facility] Start: 04-13-2023 Sleep disorder assessment [facility] Start: 04-13-2023 Hospital admission [facility] Start: 09-01-2022 [facility] Start: 08-29-2022 Hospital admission [facility] Start: 06-12-2022 [facility] Start: 06-06-2022 Referral to [facility] Start: 06-06-2022 Hospital admission [facility] Start: 06-03-2022 Influenza vaccination Flu vaccine (# 1) [facility] [employer] Start: 03-23-2022 [facility] Work Phone: Start: 03-19-2022 Hospital admission [facility] Work Phone: Start: 06-03-2019 Influenza vaccination Flu vaccine (# 1) [place] Start: 2018 Screening for malign ant neoplasm of colon [facility] [employer] Start: 2013 Lipid panel Lipids [facility] [employer] Start: 2013 Lipid screen Lipid screen [place], [place] Start: 2003 Screening for malign ant [facility]oplasm [facility] cervix [facility] Start: 1994 Cervical cancer screen Cervical canc er screen [place], [place] Start: 1994 Screening for malign ant neoplasm of cervix Pap smear [facility] Start: 1992 DTaP/Tdap/Td vaccine (1 - Tdap) DTaP/Tdap/Td vaccine (1 - Tdap) [facility] Start: 1991 Hepatitis C screening Hepatitis C sc reen [facility] Start: 1988 HIV screen HIV screen [place], [place] Start: 1988 HIV screening HIV screen [facility] Start: 1985 Depression Monitoring Depression Mon itoring [facility] Start: 1979 Pneumococcal 0-64 ye ars Vaccine (1 - PCV) Pneumococcal 0-64 years Vaccine (1 - PCV) [facility] Start: 1979 Pneumococcal 0-64 ye ars Vaccine (1 of 1 - PPSV23) Pneumococcal 0-64 years Vaccine (1 of 1 - PPSV23) [place], [place] Start: 1978 COVID-19 Vaccine (1) COVID-19 Vaccin e (1) [facility] End: 04-06-2022 C.trachomatis N.gonorrhoeae DNA [facility] Work Phone: Comment on above: Once for 1 Occurrenc es starting 04/06/2022 until 04/06/2022 Hepatitis A virus antibody, IgM type [facility] Hepatitis B core antibody measurement, IgM type [facility] Hepatitis B virus surface Ag [Presence] in Serum or Plasma by Immunoassay [facility] End: 04-06-2022 Hepatitis C RNA, quantitative, PCR [facility] Work Phone: Comment on above: Once for 1 Occurrenc es starting 04/06/2022 until 04/06/2022 Hepatitis C virus Ig G Ab [Presence] in Serum or Plasma by Immunoassay [facility] Hepatitis C virus RN A [log units/volume] (viral load) in Serum or Plasma by TISHA with probe detection [facility] Hepatitis C virus RN A [Units/volume] (viral load) in Serum or Plasma by TISHA with probe detection [facility] Patient Education [facility] Work Phone: Patient referral [facility] Work Phone: Immunizations Immunization Date Immunization Notes Care Provider Jl [employer] 09-11-2022 COVID-19 Pfizer (bivalent) Efrain Ottoniel II Other [employer] Other 07-13-2022 influenza, injectabl e, quadrivalent, preservative free Efrain Barneston II Other [employer] Other 09-23-2021 COVID-19 Vaccine Pfizer - Documentation Purposes Only Efrain Barneston II Other [employer] Other 07-22-2021 influenza, injectabl e, quadrivalent, preservative free [facility] 02-16-2021 COVID-19 Vaccine Codey - Documentation Purposes Only Efrain Ottoniel II Other [facility] [employer] Other 12-04-2019 Influenza, injectabl e, Madin Dacia Canine Kidney, preservative free, quadrivalent [facility] 09-09-2017 tetanus toxoid, reduced diphtheria toxoid, and acellular pertussis vaccine, adsorbed Efrain Ottoniel II Other [facility] [employer] Other NEGATED: Highlighted row has not occurred!07-31-2018 influenza, injectable, quadrivalent, preservative free [facility] Payers Date Payer Category Payer Self-pay [id number] 2022 Medicaid [id number] 2014 Unknown [employer] xxxxxxxxxxx 2014-Present [phone] [address] [place] [address] xxxxxxxxxxx [id number] 1973 Unknown [id number] 1973 Unknown [id number] 1973 Unknown [id number] 1973 Unknown [id number] [id number] 1973 Unknown [id number] [id number] 1973 Unknown [id number] [id number] 1973 Unknown [id number] [id number] 1973 Unknown [id number] 1973 Unknown [id number] [id number] 1973 Unknown [id number] [id number] 1973 Unknown [id number] [id number] 1959 Medicaid [id number] 1959 Unknown [id number] Unknown [id number] Unknown [id number] [id number] Unknown [id number] Unknown [id number] Social History Date Type Detail Facility Start: 09-09-2017 End: 07-03-2019 Tobacco smoking status NHIS [facility] [employer] History of tobacco use Cigarette [place] Start: 09-09-2017 End: 07-03-2019 Cigarettes smoked current (pack per day) - Reported [place], [place] Start: 07-03-2019 Alcohol intake Yes Brittney [place], [place] Start: 09-09-2017 Alcohol Comment occassional [facility] [place], [place] Start: 1975 Sex Assigned At Not on file [place] Start: 09-09-2017 Tobacco use and exposure Smokeless tobacco non-user [facility] [employer] [facility] Work Phone: Start: 07-03-2019 Alcohol intake Current drinke r of alcohol (finding) [employer] Phone: Start: 09-09-2017 History SDOH Alcohol Comment occassional [employer] [facility] Work Phone: Start: 06-07-2022 [facility] Start: 1975 Sex Assigned At Female F [facility] Start: 08-30-2022 End: 08-24-2023 Tobacco smoking status NHIS Ex-smoker (finding) [facility] Start: 04-28-2023 Tobacco smoking stat [facility] Never smoked tobacco (finding) [facility] Goals Date Patient Goal Desired Activity /State Functional Status Date Assessment Result Facility 08-26-2023 Functional status Patient at Baseline [facility] Work Phone: 05-01-2023 Functional status Patient at Baseline [facility] Work Phone: 04-17-2023 Functional status Patient at Baseline [facility] Work Phone: 09-01-2022 Functional status Patient at Baseline [facility] Work Phone: 06-12-2022 Functional status Patient at Baseline [facility] Work Phone: 03-23-2022 Functional status Patient at Baseline [facility] Work Phone: Mental Status Date Assessment Result Facility 08-26-2023 Cognitive function Cognitive Sta tus Patient at Baseline [facility] Work Phone: 05-01-2023 Cognitive function Cognitive Sta tus Patient at Baseline [facility] Work Phone: 04-17-2023 Cognitive function Cognitive Sta tus Patient at Baseline [facility] Work Phone: 09-01-2022 Cognitive function Cognitive Sta tus Patient is Progressing Toward Baseline [facility] Work Phone: 06-12-2022 Cognitive function Cognitive Sta tus Patient at Baseline [facility] Work Phone: 03-23-2022 Cognitive function Cognitive Sta tus Patient at Baseline [facility] Work Phone: Clinical Notes 06-07-2022 to 08-26-2023 Note Date & Type Note Facility 08-26-2023 Discharge summary Note Date/Time August 26, 2023 7:39am [facility] [address] [place] [address] Discharge Summary Signed Patient: Loyda Scott MR#: [id number] : 1975 Acct:[id number] Age/Sex: 48 / F Adm Date: 3 Loc: Room: [address] [place] [address]: Olvin Rollins MD Copies to: NON STAFF Olvin Rollins MD~ Providers Date of Discharge: 08/26/23 Discharging Provider: Olvin Rollins Primary Care Provider: NON STAFF Consults: 08/24/23 01:29 Consult to Case Management Routine 08/24/23 08:59 Consult to Adult Hospitalist Routine Discharge Diagnosis (1) Major depress dis, severe: (2) Bipolar 2 disorder, major depressive episode: (3) Stimulant use disorder: (4) Acute anxiety: (5) Marijuana use: Final Diagnosis Final Discharge Diagnosis: MDD Summary Hospital Course Hospital course: Ms. Scott is a 48 year old female with a reported history of bipolar disorder, anxiety and stimulant use disorder who presented due to concern for depression and suicidal ideation with plan to OD. At the time of the interview, patient presents as tearful. She did not trust herself and realized that she needs to be hospitalized. She did not want to act on her suicidal thoughts as her kids need her. Pt states she broke down after learning that her daughter lost her baby. [place] being supportive. She said her therapist gave her some information to attend support groups. She has had previous psychiatric admissions and was recently admitted at last April after a suicide attempt by cutting her wrists and required sutures and would care. States that July is kimberley month for her where her sons father overdosed and and then her grandsonwas stillborn and they all expected to have a new born baby for the holidays. States her daughter had to go pick out an urn for her baby and then starts crying. She rated her depression at 10 out of 10 with 10 being the worst. She has been following up with an outpatient provider and Seroquel was recently added to help with mood and sleep. Past psych history: Depression and substance use issues Past hospitalizations: History of past psychiatric hospitalizations Past suicide attempts: History of suicide attempt by overdose Previous medications: BuSpar, Zyprexa, Trintellix, Xanax, Cymbalta, Neurontin, Alcohol and drug use: Reported meth, cocaine and marijuana use. Living: With friends and family Review of symptoms: Constitutional: Denies chills and Denies fever(s) Eyes: Denies change in vision ENT: Denies abnormal hearing Cardiovascular: Denies chest pain Respiratory: Denies chest congestion and Denies cough Gastrointestinal: Denies change in bowel habits Genitourinary: Denies dysuria Musculoskeletal: Denies atrophy and Denies myalgias Integumentary/Breasts: Denies dry skin Neurologic: Denies abnormal gait and Denies abnormal movements Psychiatric: Reports depression and reported suicidal ideation in the emergency department Patient reports she is feeling better. Depression and anxiety are stabilizing gradually on the current medication regimen. She did not request any med adjustments. Anxiety is mild in intensity with attempted utilization of coping skills. She denies SI/HI and verbalized the intent to notify staff if she has such thoughts. Her affect is brighter on exam. She continues to be compliant with prescribed medications and is visible within the unit milieu. She has beenworking on aftercare plans with assistant case manager. She agreed to continue the current medications regimen. Risks, benefits, and indications of medications were discussed. She said she understands that she needs to come to the hospital anytime if she is suicidal. She contracted for safety. She has not history of recent suicide attempts, presented as future oriented, participated in group activities, articulated needs appropriately, and displayedno self-harm behaviors. Imminent risk is low given factors noted above. Further inpatient hospitalization unlikely to mitigate chronic suicide risk, and pt agrees to f/u with outpatient psych care. We also discussed benefits of outpatient CBT and DBT to help with depression and reduce suicide risk. Overall, she has a positive mood and attitude towards life. Appearance: dressed casually Mental Status: mental status grossly normal Mood: Euthymic mood Affect: Normal affect Speech and Movement: speech and movement normal and speech clear Attitude: cooperative Thought Process: normal Thought Content: Denied hallucinations, no homicidality and no suicidality Insight: fair Judgment: fair Impulse control: fair Discharge disposition: home with her brother. Time spent discussing smoking cessation with patient: more than 10 minutes Condition Condition at Discharge: Stable Status at Discharge Functional status at discharge: independent ambulation Time Spent with Patient Time spent providing/coordinating discharge services (# min): 63 Diagnostic Studies Completed and Pending Studies Pending studies at discharge: 08/25/23 05:35 Hepatitis Acute Panel IN AM Labs on day of discharge: 08/25/23 05:35: Total Bilirubin 0.3, Direct Bilirubin 0.00 L, Indirect Bilirubin0.3, AST 94 H, ALT 97 H, Alkaline Phosphatase 58, Total Protein 6.1 L, Albumin 3.6, Globulin 2.5, Albumin/Globulin Ratio 1.4 Exam Physical Exam Vital Signs: Temp Pulse Resp BP Pulse Ox O2 Del Method 97.9 F 83 16 134/87 97 Room Air 08/26/23 07:30 08/26/23 07:30 08/26/23 07:30 08/26/23 07:30 08/26/23 07:30 08/26/23 07:30 Discharge Plan Discharge Plan Activity: No Activity Restriction Diet: Regular Additional Instructions: Important Contact Information You can call [facility] at [phone] any time day or night if you have emergent questions or question regarding discharge instructions. If at any time you are feeling an increase inyour psychiatric symptoms, call your physician or behavioral healthcare provider. If any time you have thoughts of harming yourself or others contact one of the following: Call (available 25/04) Crisis Text Line (available 25/04) text 4HOPE to [phone] [facility] Hope Line (available 8 a.m. Midnight) call [phone] ([phone]) Prescriptions: New cephalexin 500 mg Capsule 500 mg PO Q8HR 5 Days Qty: 15 0RF Continued amlodipine [Norvasc] 2.5 mg tablet 2.5 mg PO DAILY Patient Comments: TAKE ONE TABLET BY MOUTH ONCE DAILY lisdexamfetamine [Vyvanse] 30 mg capsule 30 mg PO DAILY Patient Comments: TAKE ONE CAPSULE BY MOUTH ONCE DAILY IN THE MORNING atorvastatin [Lipitor] 40 mg tablet 40 mg PO HS Patient Comments: take 1 tablet by mouth every evening docusate sodium 100 mg Capsule 100 mg PO BID PRN (Reason: Constipation) 15 Days Qty: 30 0RF bupropion HCl 300 mg tablet extended release 24 hr 300 mg PO DAILY Patient Comments: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 NON STAFF Consults: 04/23/23 09:40 Consult to Adult Hospitalist Routine 04/25/23 10:40 Consult to Orthopedic Surgery Routine Discharge Diagnosis (1) Generalized anxiety disorder: (2) Bipolar disorder, current episode depressed, mild: (3) Stimulant use disorder: (4) Acute anxiety: Final Diagnosis Final Discharge Diagnosis: Bipolar 1 disorder Stimulant use disorder Generalized anxiety disorder Summary Hospital Course Hospital course: According to admission note:Ms. Scott is a 47 year old female with a reported history of bipolar depression and anxiety who presents for inpatient admission due to worsening of depression and feeling suicidal. Reportedly, she admitted herself to due to feeling suicidal again. ? The patient also reported that she feels like her meds need to be changed and adjusted again.? She had a suicidal ideation to slit her wrist.? Patient presented last week for suicide attempt at cutting her left wrist open.? She was subsequently discharged on 2022.? She reports back here today. Ms. Scott adds that she went to [facility] last night to have her wrist looked at for possible infection and suicidalideation.? The patient reports to me this morning that they gave her Bactrim PO around 1 AM, disregarding her insistence that she is allergic to Bactrim. Patient was personally seen by me on the day of the encounter.? I reviewed the history and performed the jaimes elements of the assessment.? I formulated the planof care and confirmed this with the resident as noted below At the time of the interview, she presented as depressed and anxious. She reports a long standing history of ADHD, depression, and anxiety manifested as strong suicidal ideation, previous suicide attempts, and depressed mood with anxiety.? This morning, the patient is lying down swaddled in her blankets with the trash can right beside her.? She is nauseated and spitting up, which she relates to taking the Bactrim at 1 AM.? Patient confirms feelings of depression and anxiety.? Relating to her depression, she states that it started about last week, nothing seems to make it better, and her family not talking to her makes it worse.? She describes her depression as soul sucking, rates it an 8 out of 10 this morning, and is constant throughout the day.? Relating to her anxiety, she notes that it started when she was a kid, but has worsened since her 20s.? Talking with her counselor makes it better, nothing seems to make her anxiety worse, and she describes her anxiety as life stopping. ? The patient reports her anxiety is 8 out of 10 this morning, and describes it as up and down throughout the day.? Patient denies suicidal ideation, homicidal ideation, and hallucinations this morning. Past psych history: ADHD, depression, anxiety Past hospitalizations: Confirms.? Last hospitalization was from April 12 to 2022.? The patient slit her left wrist. Past suicide attempts: Confirms.? April 12, 2023.? Slit her left wrist. Family psych history: Does not really know.? Notes that her mom's dad had major depressive disorder. Previous medications: Klonopin, all the SSRIs, Wellbutrin, Remeron Alcohol and drug use: Positive for cocaine and THC. Living: Lives at an apartment alone Employment: Unemployed Relationships: Notes a friend as a strong relationship. Patient was continued on her home medications. She tolerated the medications without any problems and did not report any side effects. Nortriptyline was added to help manage her depression and the dose was increased to 100 mg. During hospitalization she did try 150 but this was too much and cause oversedation. Her symptoms gradually improved during her hospitalization. She became less depressed and less anxious. She was often in the common area socializing with peers. She also attended groups and learn coping skills. She did not exhibit any further behavior concerning for suicidality during her hospital course. She did not have any conflict with peers or staff. On the dayof discharge, she reported that she is doing better. She stated that her mood was improved and felt comfortable discharge plan home. She stated that she may stay with her ex- who would help her with some dressing changes. She stated that she just did not want to be alone at this time and they had a platonic relationship. She denied any depression, suicidality, hallucinations or side effects from current medications. She stated that she would continue her medication and follow-up with her therapist. Condition Condition at Discharge: Stable Status at Discharge Cognitive/behavioral status at discharge: Mental Status Exam: Appearance: grossly normal Mental Status: mental status grossly normal Mood: Euthymic mood Affect: Normal affect Speech and Movement: speech and movement normal and speech clear Attitude: cooperative Thought Process: normal Thought Content: Denied hallucinations, no homicidality and no suicidality Insight: Good Judgment: Good Functional status at discharge: independent ambulation Overall status at discharge: patient is back to baseline Time Spent with Patient Time spent providing/coordinating discharge services (# min): 30 Exam Physical Exam Vital Signs: Temp Pulse Resp BP Pulse Ox O2 Del Method 97.9 F 86 16 141/91 H 94 L Room Air 05/01/23 07:24 05/01/23 07:24 05/01/23 07:24 05/01/23 07:24 05/01/23 07:24 05/01/23 07:24 Discharge Plan Discharge Plan Patient Disposition: Home Activity: No Activity Restriction Diet: Regular Additional Instructions: FOLLOW UP WITH DR. ALCAZAR AT HIS OFFICE IN ONE WEEK. (ORD.04/28/2023) IF DISCHARGED FROM PRIOR TO THE ONE WEEK FOLLOW UP. [address] [place] [address] PH: [phone] Dressing Type: TX TO LEFT WRIST; WARM SOAPY SOAKS WITH HIBICLENS TID FOR 15 MINUTES. ALLOW TO AIR DRY AND THEN REDRESS WITH XERFORM, TELFA, AND GAUZE. THREE TIMES A DAY. Instructions: Bipolar Disorder (DC), [facility] DC Instructions Prescriptions: New doxycycline hyclate 100 mg Tablet 100 mg PO BID 4 Days Qty: 8 0RF nortriptyline 50 mg capsule 100 mg PO QHS 30 Days Qty: 60 0RF Continued clonazepam [Klonopin] 1 mg tablet 1 mg PO TID Patient Comments: TAKE 1 TABLET (1 MG) BY MOUTH 3 TIMES PER DAY gabapentin [Neurontin] 300 mg capsule 300 mg PO BID Patient Comments: TAKE 1 CAPSULE (300 MG) BY MOUTH 2 TIMES PER DAY amlodipine [Norvasc] 2.5 mg tablet 2.5 mg PO DAILY Patient Comments: TAKE ONE TABLET BY MOUTH ONCE DAILY levothyroxine 75 mcg tablet 75 mcg PO DAILY.30 Patient Comments: TAKE ONE TABLET BY MOUTH ONCE DAILY ON AN EMPTY STOMACH trazodone 150 mg tablet 300 mg PO HS PRN (Reason: Insomnia) Patient Comments: TAKE TWO TABLETS BY MOUTH ONCE DAILY AT BEDTIME NEEDED Vyvanse 30 mg capsule 30 mg PO DAILY Patient Comments: TAKE ONE CAPSULE BY MOUTH ONCE DAILY IN THE MORNING quetiapine 25 mg Tablet 25 mg PO TID PRN (Reason: Anxiety) Qty: 60 0RF bupropion HCl 150 mg Tablet Extended Release 24 Hr 150 mg PO DAILY 30 Days Qty: 30 0RF Rx Instructions: Take with 300 mg tablet for total of 450 mirtazapine 45 mg tablet 45 mg PO QHS Qty: 30 0RF atorvastatin [Lipitor] 40 mg tablet 40 mg PO HS Patient Comments: take 1 tablet by mouth every evening docusate sodium 100 mg Capsule 100 mg PO BID PRN (Reason: Constipation) 15 Days Qty: 30 0RF bupropion HCl 300 mg tablet extended release 24 hr 300 mg PO DAILY Patient Comments: TAKE 1 TABLET (300 MG) BY MOUTH DAILY IN THE MORNING Discontinued nortriptyline 25 mg Capsule 25 mg PO QHS 30 Days Qty: 30 0RF Follow Up: Dr. Juan R Mendoza [Other] (Next appt supposed to be over the phone per pt. Call on Tuesday to set up appointment Please follow up with Dr. Woo for any medical concerns. ) [facility] [Other] (Call on Tuesday to set up appointment Cam) [facility]line [Outside] Efrain Alcazar II, MD [Active Staff] - (Please call on Tuesday to set up appointment in 5-7 days.) Documented By: Miah Abreu MD 05/01/23 1130 Signed By: <Electronically signed by Miah Abreu MD> 05/01/23 1216 [facility] Work Phone: 1([phone]) 266-908807-29-2023 Progress note Author Miah Abreu [facility] April 30, 2023 11:22am Note Date/Time April 30, 2023 11:2 2am [facility] [address] [place] [address] Psychiatry Progress Note Signed Patient: Loyda Scott MR#: [id number] : 1975 Acct:[id number] Age/Sex: 47 / F Adm Date: 3 Loc: Room: [address] [place] [address] Type : ADM IN Attending Dr: Serafin Rollins MD Copies to: ~ Date of Service: 04/30/2023 Subjective Subjective Narrative: Ms. Scott reported that she is feeling emotional today. She reported that she slept better overnight but is feeling a little bit tired today. She reported that she does not have any suicidal thoughts at this time. She reported that her wrist pain has improved. Mental Status Exam: Appearance: Dressed casually Mental Status: Grossly normal Mood: Emotional Affect: Improving Speech and Movement: Speech and movement are normal. Speech is clear. Attitude: Cooperative Thought Process: Normal Thought Content: Patient denies suicidal ideation, homicidal ideation, and hallucinations. Insight: Fair Judgment: Fair Exam Physical Exam Vital Signs: Temp Pulse Resp BP Pulse Ox O2 Del Method 97.8 F 83 16 123/79 97 Room Air 04/30/23 07:30 04/30/23 07:30 04/30/23 07:30 04/30/23 07:30 04/30/23 07:30 04/30/23 07:30 Assessment/Plan Assessment/Plan (1) Generalized anxiety disorder: Code(s): F41.1 - Generalized anxiety disorder Status: Acute (2) Bipolar disorder, current episode depressed, mild: Code(s): F31.31 - Bipolar disorder, current episode depressed, mild Status: Acute (3) Stimulant use disorder: Code(s): F15.90 - Other stimulant use, unspecified, uncomplicated Status: Acute (4) Acute anxiety: Code(s): F41.9 - Anxiety disorder, unspecified Status: Acute Plan Patient doing better at this time. Anticipate discharge tomorrow Continue Wellbutrin 450 mg, Klonopin as needed, Neurontin 300 mg twice daily, Remeron 45 mg at bedtime, nortriptyline to 150 mg at bedtime Continue Seroquel 25 mg 3 times a day as needed Continue to monitor mental status Encourage group participation and medication compliance Risk benefits alternatives explained Documented By: Miah Abreu MD 04/30/231120 Signed By: <Electronically signed by Miah Abreu MD> 04/30/23 [facility] Work Phone: [phone]) 373-266807-28-2023 Progress note Author Miah Abreu [facility] April 29, 2023 1:04pm Note Date/Time April 29, 2023 1:04 pm [facility] [address] [place] [address] Psychiatry Progress Note Signed Patient: Loyda Scott MR#: [id number] : 1975 Acct:[id number] Age/Sex: 47 / F Adm Date: 3 Loc: Room: 0R2297-2 Type : ADM IN Attending Dr: Serafin Rollins MD Copies to: ~ Date of Service: 04/29/2023 Subjective Subjective Narrative: Ms. Scott reported that she has a lot of regrets about what she did to her wrist. She is very tearful and feeling a lot of feelings of being overwhelmed. She reported that she is not sure if she could manage things at home currently the way they are. She reported that she has a lot of triggers and she will not have any social support as her family has been difficult to deal with. She reported that her sleep is a little bit better. Mental Status Exam: Appearance: Dressed casually Mental Status: Grossly normal Mood: Dysphoric today Affect: Tearful and labile Speech and Movement: Speech and movement are normal. Speech is clear. Attitude: Cooperative Thought Process: Normal Thought Content: Patient denies suicidal ideation, homicidal ideation, and hallucinations. Insight: Fair Judgment: Fair Exam Physical Exam Vital Signs: Temp Pulse Resp BP Pulse Ox O2 Del Method 97.6 F 75 18 145/82 H 95 Room Air 04/29/23 07:30 04/29/23 07:30 04/29/23 07:30 04/29/23 07:30 04/29/23 07:30 04/29/23 07:30 Assessment/Plan Assessment/Plan (1) Generalized anxiety disorder: Code(s): F41.1 - Generalized anxiety disorder Status: Acute (2) Bipolar disorder, current episode depressed, mild: Code(s): F31.31 - Bipolar disorder, current episode depressed, mild Status: Acute (3) Stimulant use disorder: Code(s): F15.90 - Other stimulant use, unspecified, uncomplicated Status: Acute (4) Acute anxiety: Code(s): F41.9 - Anxiety disorder, unspecified Status: Acute Plan Patient reporting more depression and very tearful today. Cannot maintain mood stability at this time Continue Wellbutrin 450 mg, Klonopin as needed, Neurontin 300 mg twice daily, Remeron 45 mg at bedtime, Increase nortriptyline to 150 mg at bedtime And increase ability to use Seroquel Continue to monitor mental status Encourage group participation and medication compliance Risk benefits alternatives explained Documented By: Miah Abreu MD 04/29/23 1302 Signed By: <Electronically signed by Miah Abreu MD> 04/29/23 1304 [facility] Work Phone: 1(300) [phone] Progress note Author Miah Abreu [facility] April 28, 2023 12:01pm Note Date/Time April 28, 2023 12:0 1pm [facility] [address] [place] [address] Psychiatry Progress Note Signed Patient: Loyda Scott MR#: [id number] : 1975 Acct:[id number] Age/Sex: 47 / F Adm Date: 3 Loc: Room: [address] [place] [address] Type : ADM IN Attending Dr: Serafin Rollins MD Copies to: ~ Date of Service: 04/28/2023 Subjective Subjective Narrative: Ms. Scott reported that she started to feel better. She reported that her wristhas been still bothering her. She reported that her sleep has been up and down. She was seen by the orthopedic physician this morning who gave recommendations for her wound. She stated that she has not had any side effects from her current medications. Mental Status Exam: Appearance: Dressed casually Mental Status: Grossly normal Mood: Improving Affect: Improving Speech and Movement: Speech and movement are normal. Speech is clear. Attitude: Cooperative Thought Process: Normal Thought Content: Patient denies suicidal ideation, homicidal ideation, and hallucinations. Insight: Fair Judgment: Fair Exam Physical Exam Vital Signs: Temp Pulse Resp BP Pulse Ox O2 Del Method 97.5 F L 86 17 138/95 99 Room Air 04/28/23 07:30 04/28/23 07:30 04/28/23 07:30 04/28/23 07:30 04/28/23 07:30 04/28/23 09:00 Assessment/Plan Assessment/Plan (1) Generalized anxiety disorder: Code(s): F41.1 - Generalized anxiety disorder Status: Acute (2) Bipolar disorder, current episode depressed, mild: Code(s): F31.31 - Bipolar disorder, current episode depressed, mild Status: Acute (3) Stimulant use disorder: Code(s): F15.90 - Other stimulant use, unspecified, uncomplicated Status: Acute (4) Acute anxiety: Code(s): F41.9 - Anxiety disorder, unspecified Status: Acute Plan Patient reported that he started to feel better. Still has some wrist pain Continue Wellbutrin 450 mg, Klonopin as needed, Neurontin 300 mg twice daily, Remeron 45 mg at bedtime, nortriptyline to 100 mg at bedtime Continue to monitor mental status Encourage group participation and medication compliance Risk benefits alternatives explained Documented By: Miah Abreu MD 04/28/23 1159 Signed By: <Electronically signed by Miah Abreu MD> 04/28/23 1201 [facility] Work Phone: [phone]) [phone] Hospital Discharge instructions Additional Instructions FOLLOW UP WITH DR. ALCAZAR AT HIS OFFICE IN ONE WEEK. (ORD.04/28/2023) IF DISCHARGED FROM PRIOR TO THE ONE WEEK FOLLOW UP. [address] [place] [address] PH: [phone] Dressing Type: Treatment TO LEFT WRIST; WARM SOAPY SOAKS WITH HIBICLENS TID FOR 15 MINUTES. ALLOW TO AIR DRY AND THEN REDRESS WITH XERFORM, TELFA, AND GAUZE. THREE TIMES A DAY.[facility] Work Phone: [phone]) 714-743407-27-2023 Consult note Author Efrain Alcazar [facility] April 28, 2023 2:11am Note Date/Time April 28, 2023 1:17 am [facility] [address] [place] [id number] Orthopedic Consult Note Signed Patient: Loyda Scott MR#: [id number] : 1975 Acct:[id number] Age/Sex: 47 / F Adm Date: 3 Loc: Room: [address] [place] [address] Type: ADM IN Attending Dr: Serafin Rollins MD Copies to: NON STAFF MD Efrain Ibanez MD~ History of Present Illness HPI Consult date: 04/28/2023 Requesting provider: Serafin Rollins MD History of present illness: Patient is a 47-year-old [id number] female who is disabled from mental health issues presented to the [place] emergency department on April 13 because she had used a elaine knife to slit her left wrist. At that time she reported suicidal ideations. The wound at that time according to the patient was washed out and sutured. She was admitted to [facility] psychiatric unit at that time and discharged on April 17. Not long after discharge she presented to the [place] emergency department because she was concerned about infection. She was given oral antibiotics and discharge. On April 23 she was readmitted to [facility] psychiatric unit and at that time there was further concern about infection in the wrist wound. Currently the patient complains of significant pain over the wrist wound. She complains of tingling into the thumb, index, long, ring finger. She reports that that she has had dressings placed on it daily and has been on antibiotics. Chart review demonstrates that she is on doxycycline and a culture of the wound upon presentation has grown MRSA that is sensitive to doxycycline. 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 Stroke Surgical History (Updated 04/23/23 @ 04:16 by Sol Ivory LPN) Cervical vertebral fusion H/O: hysterectomy History of Family History Father Mental health disorder Hypertension Alcohol abuse Grandparent History of open heart surgery Mental health disorder Alcohol abuse Social History Smoking Status: Never smoker Tobacco Type: cigarettes Substance Use Type: Marijuana and Cocaine Substance Abuse Comment: states last used thc and cocaine on 04/12 Social History Comments: lives with mom Allergies & Medications Medications and Allergies Allergies tramadol [From Ultram] Allergy (Verified 11/02/21 19:25) Seizure buspirone [From BuSpar] Adverse Reaction (Verified 11/02/21 19:25) Anxiety diphenhydramine [From Benadryl] Adverse Reaction (Verified 11/02/21 19:25) Anxiety hydroxyzine [From Vistaril] Adverse Reaction (Verified 11/02/21 19:25) Agitated metronidazole [From Flagyl] Adverse Reaction (Verified 11/02/21 19:25) Vomiting nalbuphine [From Nubain] Adverse Reaction (Verified 11/02/21 19:25) Unknown Reaction olanzapine [From Zyprexa] Adverse Reaction (Verified 11/02/21 19:25) Unknown Reaction sulfamethoxazole [From Bactrim] Adverse Reaction (Verified 11/02/21 19:25) Vomiting trimethoprim [From Bactrim] Adverse Reaction (Verified 11/02/21 19:25) Vomiting Home Medications atorvastatin 40 mg tablet (Lipitor) 40 mg PO HS 08/29/22 [History Confirmed 04/23/23] docusate sodium 100 mg capsule 100 mg PO BID PRN Constipation 15 days #30 caps 09/01/22 [Rx Confirmed 04/23/23] amlodipine 2.5 mg tablet (Norvasc) 2.5 mg PO DAILY 04/13/23 [History Confirmed 04/23/23] clonazepam 1 mg tablet (Klonopin) 1 mg PO TID 04/13/23 [History Confirmed 04/23/23] gabapentin 300 mg capsule (Neurontin) 300 mg PO BID 04/13/23 [History Confirmed 04/23/23] levothyroxine 75 mcg tablet 75 mcg PO DAILY.0630 04/13/23 [History Confirmed 04/23/23] lisdexamfetamine 30 mg capsule (Vyvanse) 30 mg PO DAILY 04/13/23 [History Confirmed 04/23/23] trazodone 150 mg tablet 300 mg PO HS PRN Insomnia 04/13/23 [History Confirmed 04/23/23] bupropion HCl 150 mg 24 hr tablet, extended release 150 mg PO DAILY 30 days #30 tabs 04/17/23 [Rx Confirmed 04/23/23] mirtazapine 45 mg tablet 45 mg PO QHS #30 tabs 04/17/23 [Rx Confirmed 04/23/23] nortriptyline 25 mg capsule 25 mg PO QHS 30 days #30 caps 04/17/23 [Rx Confirmed 04/23/23] quetiapine 25 mg tablet 25 mg PO TID PRN Anxiety #60 tabs 04/17/23 [Rx Confirmed 04/23/23] bupropion HCl 300 mg 24 hr tablet, extended release 300 mg PO DAILY 04/23/23 [History Confirmed 04/23/23] Exam Physical Exam Vital Signs: Temp Pulse Resp BP Pulse Ox O2 Del Method 97.7 F 85 16 100/66 95 Room Air 04/27/23 20:00 04/27/23 20:00 04/27/23 20:00 04/27/23 20:00 04/27/23 20:00 04/27/23 20:00 Narrative: There is a 3 to 4 cm transverse laceration on the volar aspect of the left wrist. This is just slightly proximal to the wrist crease. There are multiple sutures in place with some whitish granulation tissue around the sutures. No active drainage. There is beefy tissue proximally and distally with no significant erythema but there is some generalized mild erythema about the inflamedtissue. Upon removal of the sutures it was noted that the 2 central sutures were only in the more distal flap. The wound did not necessarily dehisce. There is some healing noted deeper in the wound bed. Again no active drainage. Fingers are all warm and well-perfused with brisk capillary refill. Sensation intact to light touch in all digits with paresthesias radially and ulnarly aboutthe thumb, index, long, ring finger. Sensation intact to light touch without paresthesias in the small finger. Fires her AIN, PIN, median, ulnar, radial nerves. Results Lab Results 04/26/23 06:37 04/24/23 06:14 Labs: Laboratory Results - Last 48 hrs. 04/26/23 06:37: Corrected WBC 3.8, Uncorrected WBC Count 3.8, RBC 3.49 L, Hgb 11.5 L, Hct 34.0, MCV 97.5, MCH 33.1, MCHC 33.9, RDW 12.1, Plt Count 231, MPV 8.4, Neut % (Auto) 54.1, Lymph % (Auto) 33.3, Coffee % (Auto) 8.2, Eos % (Auto) 3.2, Baso % (Auto) 1.2, Nucleat RBC Rel Count 0.2, Neut # (Auto) 2.1, Lymph # (Auto) 1.3, Coffee # (Auto) 0.3, Eos # (Auto) 0.1, Baso # (Auto) 0.0 H & H 04/24/23 04/26/23 Range/Units 06:14 06:37 Hgb 10.9 L 11.5 L (11.8-15.4) g/dL Hct 31.2 L 34.0 (34.0-46.4) % All other labs are normal. Microbiology Results Microbiology: Microbiology - Results from entire visit 04/23/23 17:29 Wrist, Left - Incision Superficial Wound Culture - Final Methicillin Resis Staph Aureus Assessment/Plan (1) Generalized anxiety disorder: Code(s): F41.1 - Generalized anxiety disorder (2) Bipolar disorder, current episode depressed, mild: Code(s): F31.31 - Bipolar disorder, current episode depressed, mild (3) Stimulant use disorder: Code(s): F15.90 - Other stimulant use, unspecified, uncomplicated (4) Acute anxiety: Code(s): F41.9 - Anxiety disorder, unspecified (5) Open wound of left wrist: Plan: Left volar wrist wound The sutures were removed today as some of them were actually overgrown and some of them did not have purchase in the proximal flap of skin. The wound remained closed. There is granulation tissue in the wound bed. There is no significant erythema or active drainage although the culture did grow MRSA. At this point in time, I would recommend attempting to heal this wound from the inside out while maintaining her doxycycline. For the next week I would recommend warm soapy soaks 3 times a day. Please see the protocol from 4 N. After each soak of 15 minutes, the wound should air dry, and then be redressed with Xeroform, Telfa, gauze dressing. Patient may perform activities as tolerated. Would alsorecommend that she maintain her doxycycline and I will reevaluate her in 1 week. If she is still in 1 S. please notify me to come and evaluate her. If she is discharged from 1 S. prior to the 1 week follow-up that she needs to see me in the office for further evaluation. Please call with any questions or concerns. Code(s): S61.502A - Unspecified open wound of left wrist, initial encounter Documented By: Efrain Alcazar MD 04/28/23 16 Signed By: <Electronically signed by Efrain Alcazar MD> 04/28/23210 [facility] Work Phone: 1(770) 875-100907-26-2023 Progress note Author Miah Abreu [facility] April 27, 2023 12:45pm Note Date/Time April 27, 2023 12:4 5pm [facility] [address] [place] [address] Psychiatry Progress Note Signed Patient: Loyda Scott MR#: [id number] : 1975 Acct:[id number] Age/Sex: 47 / F Adm Date: 3 Loc: Room: [address] [place] [address] Type : ADM IN Attending Dr: Serafin Rollins MD Copies to: ~ Date of Service: 04/27/2023 Subjective Subjective Narrative: Ms. Scott reported that she is still waiting to see the Ortho surgeon. She reported that her sleep is up-and-down. Denied current suicidality at this time. She reported that she still has a lot on her mind and has been dealing with some depression. Mental Status Exam: Appearance: Dressed casually Mental Status: Grossly normal Mood: Depressed and anxious Affect: Dysphoric Speech and Movement: Speech and movement are normal. Speech is clear. Attitude: Cooperative Thought Process: Normal Thought Content: Patient denies suicidal ideation, homicidal ideation, and hallucinations. Insight: Fair Judgment: Fair Exam Physical Exam Vital Signs: Temp Pulse Resp BP Pulse Ox O2 Del Method 98.0 F 76 16 123/83 99 Room Air 04/26/23 21:31 04/27/23 07:44 04/27/23 07:44 04/27/23 07:44 04/27/23 07:44 04/27/23 07:44 Assessment/Plan Assessment/Plan (1) Generalized anxiety disorder: Code(s): F41.1 - Generalized anxiety disorder Status: Acute (2) Bipolar disorder, current episode depressed, mild: Code(s): F31.31 - Bipolar disorder, current episode depressed, mild Status: Acute (3) Stimulant use disorder: Code(s): F15.90 - Other stimulant use, unspecified, uncomplicated Status: Acute (4) Acute anxiety: Code(s): F41.9 - Anxiety disorder, unspecified Status: Acute Plan Patient reported some ongoing depression but suicidal thoughts improving Awaiting Ortho consult for possible debridement of wrist wound Continue Wellbutrin 450 mg, Klonopin as needed, Neurontin 300 mg twice daily, Remeron 45 mg at bedtime Increase nortriptyline to 100 mg at bedtime Continue to monitor mental status Encourage group participation and medication compliance Risk benefits alternatives explained Documented By: Miah Abreu MD 04/27/23 1244 Signed By: <Electronically signed by Miah Abreu MD> 04/27/23 1245 [facility] Work Phone: 1(425) 901-385807-25-2023 Progress note Author Miah Abreu [facility] April 26, 2023 12:24pm Note Date/Time April 26, 2023 12:2 4pm [facility] [address] [place] [address] Psychiatry Progress Note Signed Patient: Loyda Scott MR#: [id number] : 1975 Acct:[id number] Age/Sex: 47 / F Adm Date: 3 Loc: Room: [address] [place] [address] Type : ADM IN Attending Dr: Serafin Rollins MD Copies to: ~ Date of Service: 04/26/2023 Subjective Subjective Narrative: Ms. Scott reported that she is doing so-so. She reported that she has MRSA infection in her wrist. She stated that the wound nurse told her that she may need a debridement by Ortho and is nervous about this. She reported that her depression is 7 out of 10. She denied current suicidal thoughts at this time. She denied any side effects with her current medication adjustments. Mental Status Exam: Appearance: Dressed casually Mental Status: Grossly normal Mood: Depressed and anxious Affect: Dysphoric Speech and Movement: Speech and movement are normal. Speech is clear. Attitude: Cooperative Thought Process: Normal Thought Content: Patient denies suicidal ideation, homicidal ideation, and hallucinations. Insight: Fair Judgment: Fair Exam Physical Exam Vital Signs: Temp Pulse Resp BP Pulse Ox O2 Del Method 97.7 F 77 16 139/101 H 99 Room Air 04/26/23 07:30 04/26/23 07:30 04/26/23 07:30 04/26/23 07:30 04/26/23 07:30 04/26/23 07:30 Objective Labs Labs: Abnormal Labs 04/26/23 06:37 RBC 3.49 L Hgb 11.5 L Assessment/Plan Assessment/Plan (1) Generalized anxiety disorder: Code(s): F41.1 - Generalized anxiety disorder Status: Acute (2) Bipolar disorder, current episode depressed, mild: Code(s): F31.31 - Bipolar disorder, current episode depressed, mild Status: Acute (3) Stimulant use disorder: Code(s): F15.90 - Other stimulant use, unspecified, uncomplicated Status: Acute (4) Acute anxiety: Code(s): F41.9 - Anxiety disorder, unspecified Status: Acute Plan Patient reported some ongoing depression but suicidal thoughts improving Awaiting input for rest wound Continue Wellbutrin 450 mg, Klonopin as needed, Neurontin 300 mg twice daily, Remeron 45 mg at bedtime Continue nortriptyline to 50 mg at bedtime Continue to monitor mental status Encourage group participation and medication compliance Risk benefits alternatives explained Documented By: Miah Abreu MD 04/26/231222 Signed By: <Electronically signed by Miah Abreu MD> 04/26/23 1224 [facility] Work Phone: [phone]) 109-180107-24-2023 Progress note Author Miah Abreu [facility] April 25, 2023 1:05pm Note Date/Time April 25, 2023 1:04 pm [facility] [address] [place] [address] Psychiatry Progress Note Signed Patient: Loyda Scott MR#: [id number] : 1975 Acct:[id number] Age/Sex: 47 / F Adm Date: 3 Loc: Room: [address] [place] [address] Type : ADM IN Attending Dr: Serafin Rollins MD Copies to: ~ Date of Service: 04/25/2023 Subjective Subjective Narrative: Ms. Scott reported that she is not doing well. She does have some concern abouther wrist being infected. She reported that she does not want to take Caplyta due to potential side effects. She is open to adjustments of other medications at this time. Mental Status Exam: Appearance: Dressed casually Mental Status: Grossly normal Mood: Depressed and anxious Affect: Constricted Speech and Movement: Speech and movement are normal. Speech is clear. Attitude: Cooperative Thought Process: Normal Thought Content: Patient denies suicidal ideation, homicidal ideation, and hallucinations. Insight: Fair Judgment: Fair Exam Physical Exam Vital Signs: Temp Pulse Resp BP Pulse Ox O2 Del Method 97.5 F L 86 16 123/80 94 L Room Air 04/25/23 07:30 04/25/23 07:30 04/25/23 07:30 04/25/23 07:30 04/25/23 07:30 04/25/23 07:30 Assessment/Plan Assessment/Plan (1) Generalized anxiety disorder: Code(s): F41.1 - Generalized anxiety disorder Status: Acute (2) Bipolar disorder, current episode depressed, mild: Code(s): F31.31 - Bipolar disorder, current episode depressed, mild Status: Acute (3) Stimulant use disorder: Code(s): F15.90 - Other stimulant use, unspecified, uncomplicated Status: Acute (4) Acute anxiety: Code(s): F41.9 - Anxiety disorder, unspecified Status: Acute Plan Patient continues to report some depression and tearfulness. Does not want to take Caplyta Continue Wellbutrin 450 mg, Klonopin as needed, Neurontin 300 mg twice daily, Remeron 45 mg at bedtime Increase nortriptyline to 50 mg at bedtime Continue to monitor mental status Encourage group participation and medication compliance Risk benefits alternatives explained Documented By: Miah Abreu MD 04/25/23 130 Signed By: <Electronically signed by Miah Abreu MD> 04/25/23 1305 [facility] Work Phone: [phone]) [phone] Progress note Author Jesus Callahan [facility] April 25, 2023 10:07am Note Date/Time April 25, 2023 10:0 7am [facility] [address] [place] [address] Hospitalist Progress Note Signed Patient: Loyda Scott MR#: [id number] : 1975 Acct:[id number] Age/Sex: 47 / F Adm Date: 3 Loc: Room: 3G6200-7 Type: ADM IN Attending Dr: Serafin Rollins MD Copies to: ~ Date of Service: 04/25/2023 Subjective Subjective Narrative: I personally saw and examined patient at [facility] She complains of some ongoing pain in her wrist with some numbness andtingling in her hand. Physical Examination: GENERAL APPEARANCE: Alert, up in bed AAOx3 NECK: Neck soft w/o masses, no JVD CARDIAC: Normal S1 and S2. No S3, S4 or murmurs. LUNGS: Clear to auscultation bilaterally. no wheeze/rhonchi/rales ABDOMEN: Positive bowel sounds. Soft, nontender. No guarding or signs of an acute abdomen MUSCULOSKELETAL: Left wrist unwrapped and examined. Erythema along the margins of her linear laceration across the wrist. Small amount of yellow drainage noted, sutures in place. Neurovascularly intact. 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 No extension of erythema proximally. EXTREMITIES: No clubbing, cyanosis or edema NEUROLOGICAL: No focal deficits Exam Physical Exam Vital Signs: Temp Pulse Resp BP Pulse Ox O2 Del Method 97.5 F L 86 16 123/80 94 L Room Air 04/25/23 07:30 04/25/23 07:30 04/25/23 07:30 04/25/23 07:30 04/25/23 07:30 04/25/23 07:30 Objective Lab Results 04/24/23 06:14 04/24/23 06:14 Microbiology Results Microbiology 04/23/23 17:29 Wrist, Left - Incision Superficial Wound Culture - Preliminary Staphylococcus aureus Meds Allergies and Active Meds Allergies tramadol [From Ultram] Allergy (Verified 11/02/21 19:25) Seizure buspirone [From BuSpar] Adverse Reaction (Verified 11/02/21 19:25) Anxiety diphenhydramine [From Benadryl] Adverse Reaction (Verified 11/02/21 19:25) Anxiety hydroxyzine [From Vistaril] Adverse Reaction (Verified 11/02/21 19:25) Agitated metronidazole [From Flagyl] Adverse Reaction (Verified 11/02/21 19:25) Vomiting nalbuphine [From Nubain] Adverse Reaction (Verified 11/02/21 19:25) Unknown Reaction olanzapine [From Zyprexa] Adverse Reaction (Verified 11/02/21 19:25) Unknown Reaction sulfamethoxazole [From Bactrim] Adverse Reaction (Verified 11/02/21 19:25) Vomiting trimethoprim [From Bactrim] Adverse Reaction (Verified 11/02/21 19:25) Vomiting Active Meds: Active Medications Generic Name Dose Route Start Last Admin Trade Name Siri PRN Reason Stop Dose Admin Acetaminophen 650 mg 04/25/23 09:59 Acetaminophen 325 Mg Tablet PO 04/22/24 03:06 Q6H PRN Fever or Pain Hydrocodone Bitart/Acetaminophen 1 tab 04/25/23 09:57 Hydrocodone/Acetaminophen 5-325 Mg Tablet PO Q4H PRN Pain Al Hydrox/Mg Hydrox/Simethicone 30 ml 04/23/23 03:07 Mag Hydrox/Al Hydrox/Simeth 30 Ml Udc PO 04/22/24 03:06 Q6H PRN Indigestion Amlodipine Besylate 2.5 mg 04/23/23 09:00 04/25/23 08:46 Amlodipine 2.5 Mg Tablet PO 04/22/24 08:59 2.5 mg DAILY MAGGIE Administration Atorvastatin Calcium 40 mg 04/23/23 22:00 04/24/23 21:15 Atorvastatin 40 Mg Tablet PO 04/22/24 21:59 40 mg HS MAGGIE Administration Benztropine Mesylate 0.5 mg 04/23/23 03:07 Benztropine 0.5 Mg Tablet PO 04/22/24 03:06 Q6H PRN Dystonia Benztropine Mesylate 0.5 mg 04/23/23 03:07 Benztropine 2 Mg/2 Ml Ampul IM 04/22/24 03:06 Q6H PRN Dystonia Bupropion HCl 150 mg 04/23/23 09:00 04/25/23 08:46 Bupropion 150 Mg Tab.Er.24h PO 04/22/24 08:59 150 mg DAILY MAGGIE Administration Bupropion HCl 300 mg 04/23/23 09:00 04/25/23 08:46 Bupropion 300 Mg Tab.Er.24h PO 04/22/24 08:59 300 mg DAILY MAGGIE Administration Clonazepam 1 mg 04/23/23 09:00 04/25/23 08:47 Clonazepam 1 Mg Tablet PO 10/20/23 08:59 1 mg TID MAGGIE Administration Docusate Sodium 100 mg 04/23/23 06:57 04/24/23 10:46 Docusate 100 Mg Capsule PO 04/22/24 06:56 100 mg BID PRN Administration Constipation Doxycycline Hyclate 100 mg 04/25/23 10:30 Doxycycline Hyclate 100 Mg Tablet PO BID MAGGIE Gabapentin 300 mg 04/23/23 09:00 04/25/23 08:46 Gabapentin 300 Mg Capsule PO 04/22/24 08:59 300 mg BID MAGGIE Administration Ibuprofen 600 mg 04/23/23 17:50 04/25/23 04:15 Ibuprofen 600 Mg Tablet PO 04/22/24 17:49 600 mg Q6H PRN Administration Pain Levothyroxine Sodium 75 mcg 04/24/23 06:30 04/25/23 06:19 Levothyroxine 75 Mcg Tablet PO 04/23/24 06:29 75 mcg DAILY.0630 MAGGIE Administration Lumateperone 42 mg 04/23/23 22:00 04/24/23 22:17 Lumateperone 42 Mg Capsule PO 04/22/24 21:59 Not Given HS MAGGIE Magnesium Hydroxide 30 ml 04/23/23 03:07 Magnesium Hydroxide Susp 30 Ml Udc PO 04/22/24 03:06 Q6H PRN Constipation Mirtazapine 45 mg 04/23/23 22:00 04/24/23 21:14 Mirtazapine 15 Mg Tablet PO 04/22/24 21:59 45 mg QHS MAGGIE Administration Mupirocin 1 applic 04/23/23 21:00 04/24/23 22:16 Mupirocin 2% Oint 22 Gm Tube TOPICAL 04/22/24 20:59 1 applic BID MAGGIE Administration Nortriptyline HCl 25 mg 04/23/23 22:00 04/24/23 21:14 Nortriptyline 25 Mg Capsule PO 04/22/24 21:59 25 mg QHS MAGGIE Administration Ondansetron HCl 4 mg 04/23/23 17:25 04/25/23 04:15 Ondansetron Odt 4 Mg Tab.Rapdis PO 04/22/24 07:14 4 mg Q4HR PRN Administration Nausea And Vomiting Quetiapine Fumarate 25 mg 04/23/23 06:57 04/24/23 21:14 Quetiapine Fumarate 25 Mg Tablet PO 04/22/24 06:56 25 mg TID PRN Administration Anxiety Trazodone HCl 50 mg 04/23/23 03:07 Trazodone 50 Mg Tablet PO 04/22/24 03:06 QHS PRN Insomnia Trazodone HCl 300 mg 04/23/23 06:57 Trazodone 150 Mg Tablet PO 04/22/24 06:56 HS PRN Insomnia A&P - Hospitalist Assessment/Plan (1) Self-inflicted laceration of left wrist: (2) Hypertension: (3) Hyperlipidemia: Plan Infected Left wrist linear laceration from self-inflicted cutting wound -previously sutured 04/13 at [place]. Wound care has been consulted. Appreciate any further recommendations. Recommend circumscribing the margins ofher erythema which at this time does not seem to be extending proximally. She is afebrile. She does report some ongoing pain for which I will add low-dose [place] as the patient has tramadol allergy (lowers seizure threshold). Furthermore she is growing Staph aureus on wound culture. Sensitivities pending. We will discontinue Keflex and initiate doxycycline for potential MRSAcoverage. If the patient spikes any fevers or exhibits further erythema extending proximally would recommend blood cultures, CBC, CMP and possible CT ofthe arm, possible orthopedic surgery consult to evaluate for abscess. Continue dressing changes, Mupirocin BID. We will check a CBC tomorrow to evaluate for leukocytosis. Chronic Conditions 1. HTN- amlodipine, atorvastatin. BP reviewed and controlled, actually low will place hold parameters 2. Hypothyroid- levothyroxine Depression -further POC per inpatient psychiatric team for psychoactive medication management/ adjustment and psychotherapy Documented By: Jesus Callahan DO 04/25/23 10 00 Signed By: <Electronically signed by Jesus Callahan DO> 04/25/[address] [place] [address] Ctr Work Phone: 1(209) 206-281107-23-2023 Consult note Author Abisai Madrid [facility] April 24, 2023 9:53am Note Date/Time April 23, 2023 5:14 pm [facility] [address] [place] [address] Hospitalist Consult Note Signed Patient: Loyda Scott MR#: [id number] : 1975 Acct:[id number] Age/Sex: 47 / F Adm Date: 3 Loc: Room: [address] [place] [address] Type: ADM IN Attending Dr: Serafin Rollins MD Copies to: NON STAFF Olvin AyoMD Abisai estrella MD Lynn A Stackhouse, ANP-BC~ HPI DATE OF CONSULTATION: 04/23/23 REQUESTING PROVIDER: Serafin Rollins Consult Narrative Reason for Consult: Wound present on admission HPI: This is a 47-year-old female past medical HTN, HLD, hypothyroid, hypertension, hyperlipidemia, hepatitis, rheumatoid arthritis, anxiety and depression. She presented April 22 from [facility] to the inpatient psychiatric unit for management of depression. Patient previously April 13 had self-inflicted a left wrist laceration that was sutured at that time in [place] ED previously. She noticed about 4 days ago that she was having increased pain erythema and drainage from the site. When she was at [facility] last evening for reevaluation he did give her injection of ceftriaxone IM and initiated her on Bactrim and Keflex. Patient has a stated allergy to Bactrim with vomiting, and since receiving the dose in the [place] ER she has not felt well and has been nauseated most of the day today. I am presuming that they gave her Bactrim for MRSA coverage. We will go ahead and check a wound culture at the site and have wound consultation as well. If she has no clinical improvement in this area we may need to consider further imaging and even potentially orthopedic consultation for evaluation of underlying anatomy potential injury. Otherwise the patient is reporting generalized malaise today. We will check some labs tomorrow to ensure that she is not becoming systemically ill due to this infection. At this time she is afebrile. She offers no other complaints, poor intake today secondary to this nausea. Patient seen and examined. Left wrist/hand pain reported. Denies chest pain orpalpitations. No cough, dyspnea, or pain with inspiration. No abdominal pain or indigestion, constipation or diarrhea. She endorses nausea. No dysuria or retention. No headache or dizziness. No fevers or chills. 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 Stroke Surgical History (Updated 04/23/23 @ 04:16 by Sol Ivory LPN) Cervical vertebral fusion H/O: hysterectomy History of Family History Father Mental health disorder Hypertension Alcohol abuse Grandparent History of open heart surgery Mental health disorder Alcohol abuse Social History Smoking Status: Never smoker Tobacco Type: cigarettes Substance Use Type: Marijuana and Cocaine Substance Abuse Comment: states last used thc and cocaine on 04/12 Social History Comments: lives with mom Meds Medications and Allergies Allergies tramadol [From Ultram] Allergy (Verified 11/02/21 19:25) Seizure buspirone [From BuSpar] Adverse Reaction (Verified 11/02/21 19:25) Anxiety diphenhydramine [From Benadryl] Adverse Reaction (Verified 11/02/21 19:25) Anxiety hydroxyzine [From Vistaril] Adverse Reaction (Verified 11/02/21 19:25) Agitated metronidazole [From Flagyl] Adverse Reaction (Verified 11/02/21 19:25) Vomiting nalbuphine [From Nubain] Adverse Reaction (Verified 11/02/21 19:25) Unknown Reaction olanzapine [From Zyprexa] Adverse Reaction (Verified 11/02/21 19:25) Unknown Reaction sulfamethoxazole [From Bactrim] Adverse Reaction (Verified 11/02/21 19:25) Vomiting trimethoprim [From Bactrim] Adverse Reaction (Verified 11/02/21 19:25) Vomiting Home Medications atorvastatin 40 mg tablet (Lipitor) 40 mg PO HS 08/29/22 [History Confirmed 04/23/23] docusate sodium 100 mg capsule 100 mg PO BID PRN Constipation 15 days #30 caps 09/01/22 [Rx Confirmed 04/23/23] amlodipine 2.5 mg tablet (Norvasc) 2.5 mg PO DAILY 04/13/23 [History Confirmed 04/23/23] clonazepam 1 mg tablet (Klonopin) 1 mg PO TID 04/13/23 [History Confirmed 04/23/23] gabapentin 300 mg capsule (Neurontin) 300 mg PO BID 04/13/23 [History Confirmed 04/23/23] levothyroxine 75 mcg tablet 75 mcg PO DAILY.0630 04/13/23 [History Confirmed 04/23/23] lisdexamfetamine 30 mg capsule (Vyvanse) 30 mg PO DAILY 04/13/23 [History Confirmed 04/23/23] trazodone 150 mg tablet 300 mg PO HS PRN Insomnia 04/13/23 [History Confirmed 04/23/23] bupropion HCl 150 mg 24 hr tablet, extended release 150 mg PO DAILY 30 days #30 tabs 04/17/23 [Rx Confirmed 04/23/23] mirtazapine 45 mg tablet 45 mg PO QHS #30 tabs 04/17/23 [Rx Confirmed 04/23/23] nortriptyline 25 mg capsule 25 mg PO QHS 30 days #30 caps 04/17/23 [Rx Confirmed 04/23/23] quetiapine 25 mg tablet 25 mg PO TID PRN Anxiety #60 tabs 04/17/23 [Rx Confirmed 04/23/23] bupropion HCl 300 mg 24 hr tablet, extended release 300 mg PO DAILY 04/23/23 [History Confirmed 04/23/23] Active Medications: Active Medications Generic Name Dose Route Start Last Admin Trade Name Freq PRN Reason Stop Dose Admin Acetaminophen 500 mg 04/23/23 03:07 Acetaminophen 500 Mg Tablet PO 04/22/24 03:06 Q6H PRN Fever or Pain Al Hydrox/Mg Hydrox/Simethicone 30 ml 04/23/23 03:07 Mag Hydrox/Al Hydrox/Simeth 30 Ml Udc PO 04/22/24 03:06 Q6H PRN Indigestion Amlodipine Besylate 2.5 mg 04/23/23 09:00 04/23/23 08:31 Amlodipine 2.5 Mg Tablet PO 04/22/24 08:59 2.5 mg DAILY MAGGIE Administration Atorvastatin Calcium 40 mg 04/23/23 22:00 Atorvastatin 40 Mg Tablet PO 04/22/24 21:59 HS MAGGIE Benztropine Mesylate 0.5 mg 04/23/23 03:07 Benztropine 0.5 Mg Tablet PO 04/22/24 03:06 Q6H PRN Dystonia Benztropine Mesylate 0.5 mg 04/23/23 03:07 Benztropine 2 Mg/2 Ml Ampul IM 04/22/24 03:06 Q6H PRN Dystonia Bupropion HCl 150 mg 04/23/23 09:00 04/23/23 08:30 Bupropion 150 Mg Tab.Er.24h PO 04/22/24 08:59 150 mg DAILY MAGGIE Administration Bupropion HCl 300 mg 04/23/23 09:00 04/23/23 08:31 Bupropion 300 Mg Tab.Er.24h PO 04/22/24 08:59 300 mg DAILY MAGGIE Administration Cephalexin HCl 500 mg 04/23/23 09:00 04/23/23 08:31 Cephalexin 500 Mg Capsule PO 05/02/23 22:01 500 mg TID MAGGIE Administration Clonazepam 1 mg 04/23/23 09:00 04/23/23 08:31 Clonazepam 1 Mg Tablet PO 10/20/23 08:59 1 mg TID MAGGIE Administration Docusate Sodium 100 mg 04/23/23 06:57 Docusate 100 Mg Capsule PO 04/22/24 06:56 BID PRN Constipation Gabapentin 300 mg 04/23/23 09:00 04/23/23 08:31 Gabapentin 300 Mg Capsule PO 04/22/24 08:59 300 mg BID MAGGIE Administration Levothyroxine Sodium 75 mcg 04/24/23 06:30 Levothyroxine 75 Mcg Tablet PO 04/23/24 06:29 DAILY.0630 MAGGIE Lumateperone 42 mg 04/23/23 22:00 Lumateperone 42 Mg Capsule PO 04/22/24 21:59 HS MAGGIE Magnesium Hydroxide 30 ml 04/23/23 03:07 Magnesium Hydroxide Susp 30 Ml Udc PO 04/22/24 03:06 Q6H PRN Constipation Mirtazapine 45 mg 04/23/23 22:00 Mirtazapine 15 Mg Tablet PO 04/22/24 21:59 QHS MAGGIE Nortriptyline HCl 25 mg 04/23/23 22:00 Nortriptyline 25 Mg Capsule PO 04/22/24 21:59 QHS MAGGIE Ondansetron HCl 4 mg 04/23/23 07:15 04/23/23 08:04 Ondansetron Odt 4 Mg Tab.Rapdis PO 04/22/24 07:14 4 mg Q8HR PRN Administration Nausea And Vomiting Quetiapine Fumarate 25 mg 04/23/23 06:57 Quetiapine Fumarate 25 Mg Tablet PO 04/22/24 06:56 TID PRN Anxiety Trazodone HCl 50 mg 04/23/23 03:07 Trazodone 50 Mg Tablet PO 04/22/24 03:06 QHS PRN Insomnia Trazodone HCl 300 mg 04/23/23 06:57 Trazodone 150 Mg Tablet PO 04/22/24 06:56 HS PRN Insomnia Exam Physical Exam Vital Signs: Temp Pulse Resp BP Pulse Ox O2 Del Method 98 F 87 16 164/86 H 97 Room Air 04/23/23 07:30 04/23/23 07:30 04/23/23 07:30 04/23/23 07:30 04/23/23 07:30 04/23/23 07:30 Narrative: CONST- alert, in bed, no acute distress HEAD- normocephalic and atraumatic EENT- sclera nonicteric and conjunctiva nonerythemic, moist oral mucosa, pharynxclear NECK- supple, no cervical lymphadenopathy CARDIAC- RRR no abnormal heart tones PULM- diminished without wheeze or rhonchi, RA, no accessory muscle use or coughnoted ABD- S/NT, NABS, obese EXTREM- no edema BLE, calves nontender SKIN- W/D, good turgor, left inner wrist with linear laceration inflicted 04/13 knife wound and prior sutures in place- site sloughing and erythemic/ edematous. Wound has purulent drainage, painful with exam MS- MAEx4 spontaneously with equal strength, mobility remains intact of left fingers NEURO- A&Ox3, speech clear and tongue midline, equal facial symmetry PSYCH-mood and behavior appropriate, cooperative, no apparent delusions or hallucinations Assessment & Plan Assessment/Plan (1) Self-inflicted laceration of left wrist: (2) Hypertension: (3) Hyperlipidemia: Plan Infected Left wrist linear laceration from self-inflicted cutting wound -previously sutured 04/13 at [place], pain and erythema/ drainage started about 4 days ago -wound care consultation -recd Ceftriaxone 04/22, Keflex x7 days -dressing BID with Mupirocin -superficial wound culture pending; culture pending -if no improvement may need further eval possible CT or even ortho consultation -check labs in AM -blood culture if becomes febrile Chronic Conditions 1. HTN- amlodipine, atorvastatin. BP reviewed and controlled, actually low will place hold parameters 2. Hypothyroid- levothyroxine Depression -further POC per inpatient psychiatric team for psychoactive medication management/ adjustment and psychotherapy Attending attestation: I agree with the above documentation as noted by Adele Gorman NP. I was available for consult. Plan of care reflects my direct input. Documented By: RISHABH Leger 3 [id number] Signed By: <Electronically signed by RISHABH Gorman> 04/23/23 1805 <Electronically signed by Abisai Madrid MD> 04/24/23 0953 [facility] Work Phone: 1(702) 407-490007-23-2023 Progress note Author Olvin tavares [facility] April 24, 2023 7:14am Note Date/Time April 24, 2023 7:14 am [facility] [address] [place] [address] Psychiatry Progress Note Signed Patient: Loyda Scott MR#: [id number] : 1975 Acct:[id number] Age/Sex: 47 / F Adm Date: 3 Loc: Room: [address] [place] [address] Type : ADM IN Attending Dr: Serafin Rollins MD Copies to: ~ Date of Service: 04/24/2023 Subjective Subjective Narrative: Ms. Scott said she met the hospitalist [employer] and talked the treatment plan for herwound due to self inflicted laceration of left wrist. She described her pain as worsening associated with tingling of the hand. She tolerated Caplyta and deniedside effects. She rated her depression at 7 out of 10 with 10 being the worst. She described her SI as intermittent. She said she went to one group yesterday and slept most of the day due to feeling tired. Mental Status Exam: Appearance: Dressed casually Mental Status: Grossly normal Mood: Depressed and anxious Affect: Constricted Speech and Movement: Speech and movement are normal. Speech is clear. Attitude: Cooperative Thought Process: Normal Thought Content: Patient denies suicidal ideation, homicidal ideation, and hallucinations. Insight: Fair Judgment: Fair Exam Physical Exam Vital Signs: Temp Pulse Resp BP Pulse Ox O2 Del Method 97.7 F 83 18 105/67 95 Room Air 04/23/23 20:40 04/23/23 20:40 04/23/23 20:40 04/23/23 20:40 04/23/23 20:40 04/23/23 20:40 Objective Labs Labs: Abnormal Labs 04/24/23 04/24/23 06:14 06:14 RBC 3.24 L Hgb 10.9 L Hct 31.2 L Chloride 108 H Calcium 7.9 L Assessment/Plan Assessment/Plan (1) Generalized anxiety disorder: Code(s): F41.1 - Generalized anxiety disorder Status: Acute (2) Bipolar disorder, current episode depressed, mild: Code(s): F31.31 - Bipolar disorder, current episode depressed, mild Status: Acute (3) Stimulant use disorder: Code(s): F15.90 - Other stimulant use, unspecified, uncomplicated Status: Acute (4) Acute anxiety: Code(s): F41.9 - Anxiety disorder, unspecified Status: Acute Plan Patient reported feeling tired and has intermittent SI. She is tolerating Caplyta with no side effects. Hospitalist consult for co-morbid medical management. Monitor suicidal behaviors for safety of self (15-minute face check). Recommend attending groups and psychoeducation for building coping skills. Risks, benefits and indications of medications were discussed with the patient. The patient verbalized understanding. No abnormal movements noted on exam. AIMS is Zero. Involve friends/family members to coordinate care and ensure appropriate outpatient appointments are scheduled prior to discharge. Documented By: Olvin Rollins MD 3 [id number] Signed By: <Electronically signed by Olvin Rollins MD> 04/24/23 0714 [facility] Work Phone: 1(106) 612-236907-22-2023 History and physical note Author Olvin tavares [facility] April 23, 2023 9:51am Note Date/Time April 23, 2023 8:56 am [facility] [address] [place] [address] Psychiatry H&P Signed Patient: Loyda Scott MR#: [id number] : 1975 Acct:[id number] Age/Sex: 47 / F Adm Date: 3 Loc: 1S Room: [address] [place] [address] Type: ADM IN Attending Dr: Serafin Rollins MD Copies to: NON STAFF Olvin Rollins MD~ Date of Service: 04/23/2023 HPI History of Present Illness History of present illness: Ms. Scott is a 47 year old female with a reported history of bipolar depression and anxiety who presents for inpatient admission due to worsening of depression and feeling suicidal. Reportedly, she admitted herself to due to feeling suicidal again. The patient also reported that she feels like her meds need vincenzo changed and adjusted again. She had a suicidal ideation to slit her wrist. Patient presented last week for suicide attempt at cutting her left wrist open. She was subsequently discharged on April 17, 2023. She reports back here today. Ms. Scott adds that she went to [facility] last night to have her wrist lookedat for possible infection and suicidal ideation. The patient reports to me thismorning that they gave her Bactrim PO around 1 AM, disregarding her insistence that she is allergic to Bactrim. Patient was personally seen by me on the day of the encounter. I reviewed the history and performed the jaimes elements of the assessment. I formulated the planof care and confirmed this with the resident as noted below At the time of the interview, she presented as depressed and anxious. She reports a long standing history of ADHD, depression, and anxiety manifested as strong suicidal ideation, previous suicide attempts, and depressed mood with anxiety. This morning, the patient is lying down swaddled in her blankets with the trash can right beside her. She is nauseated and spitting up, which she relates to taking the Bactrim at 1 AM. Patient confirms feelings of depression and anxiety. Relating to her depression, she states that it started about last week, nothing seems to make it better, and her family not talking to her makes it worse. She describes her depression as soul sucking, rates it an 8 out of 10 this morning, and is constant throughout the day. Relating to her anxiety, she notes that it started when she was a kid, but has worsened since her 20s. Talking with her counselor makes it better, nothing seems to make her anxiety worse, and she describes her anxiety as life stopping. The patient reports her anxiety is 8 out of 10 this morning, and describes it as up and down throughout the day. Patient denies suicidal ideation, homicidal ideation, and hallucinations this morning. Past psych history: ADHD, depression, anxiety Past hospitalizations: Confirms. Last hospitalization was from April 12 to 2022. The patient slit her left wrist. Past suicide attempts: Confirms. April 12, 2023. Slit her left wrist. Family psych history: Does not really know. Notes that her mom's dad had major depressive disorder. Previous medications: Klonopin, all the SSRIs, Wellbutrin, Remeron Alcohol and drug use: Positive for cocaine and THC. Living: Lives at an apartment alone Employment: Unemployed Relationships: Notes a friend as a strong relationship. Mental Status Exam: Appearance: Distressed and ill-appearing. Mental Status: Grossly normal Mood: Depressed and anxious Affect: Sickly Speech and Movement: Speech and movement are normal. Speech is clear. Attitude: Cooperative Thought Process: Normal Thought Content: Patient denies suicidal ideation, homicidal ideation, and hallucinations. Insight: Fair Judgment: Fair Review of Systems Constitutional: Patient confirms malaise and fatigue. Neuro: Denies dizziness/lightheadedness. Denies memory loss. Confirms numbnessand tingling of left hand. Confirms history of seizures, first seizure was about 14 years ago, and her last seizure was about 10 years ago. No recent seizures. Confirms previous head injury due to her first seizure 14 years ago. Patient reports she hit her head on a metal pole when she fell. HEENT: Denies vision/hearing changes. MSK: Confirms pain at suture site on left wrist. Pulmonary: Denies SOB, dyspnea, cough, wheezing. Cardiac: Denies chest pain/pressure. Denies edema, palpitations. GI: Confirms nausea and diarrhea. Denies heartburn and constipation. : Denies dysuria, hematuria, polyuria. Physical exam General: In acute distress Skin: intact. Skin overlying the left wrist is edematous, erythematous, and discolored. Yellow discharge and moisture are present over the suture sites. HEENT: head atraumatic, face symmetrical. Pulm: Breathing normally without excessive effort Cardio: Regular rate and rhythm Abdomen: Normal inspection. Patient notes discomfort on palpation. Musculoskeletal: Moves all extremities, normal strength all extremities. Neuro: Pt alert, oriented x3. Gait normal. CNII: Visual david intact CNIII,IV,: EOM intact, no nystagmus. CNV: Sensation intact to light touch. CNVII: Raises eyebrows, smile/frown, puff out cheeks symmetrically. CNVIII: Hearing intact bilaterally. CNIX,X: Voice normal, soft palate elevation normal, symmetrical. CNXI: Shoulder shrug strong, equal bilaterally. CNXII: Tongue protrusion midline PMFSH Vaccinated for COVID-19?: Unknown Medical History (Updated 04/23/23 @ 04:15 by Sol Ivory LPN) Anxiety Bipolar 1 disorder, depressed, mild GERD (gastroesophageal reflux disease) Head injury Hepatitis C Hyperlipidemia Hypertension Hypothyroid Irritable bowel disease PTSD (post-traumatic stress disorder) Rheumatoid arthritis 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 Stroke Surgical History (Updated 04/23/23 @ 04:16 by Sol Ivory LPN) Cervical vertebral fusion H/O: hysterectomy History of Family History Father Mental health disorder Hypertension Alcohol abuse Grandparent History of open heart surgery Mental health disorder Alcohol abuse Social History Smoking Status: Never smoker Tobacco Type: cigarettes Substance Use Type: Marijuana and Cocaine Substance Abuse Comment: states last used thc and cocaine on 04/12 Social History Comments: lives with mom Meds Medications and Allergies Allergies tramadol [From Ultram] Allergy (Verified 11/02/21 19:25) Seizure buspirone [From BuSpar] Adverse Reaction (Verified 11/02/21 19:25) Anxiety diphenhydramine [From Benadryl] Adverse Reaction (Verified 11/02/21 19:25) Anxiety hydroxyzine [From Vistaril] Adverse Reaction (Verified 11/02/21 19:25) Agitated metronidazole [From Flagyl] Adverse Reaction (Verified 11/02/21 19:25) Vomiting nalbuphine [From Nubain] Adverse Reaction (Verified 11/02/21 19:25) Unknown Reaction olanzapine [From Zyprexa] Adverse Reaction (Verified 11/02/21 19:25) Unknown Reaction sulfamethoxazole [From Bactrim] Adverse Reaction (Verified 11/02/21 19:25) Vomiting trimethoprim [From Bactrim] Adverse Reaction (Verified 11/02/21 19:25) Vomiting Home Medications atorvastatin 40 mg tablet (Lipitor) 40 mg PO HS 08/29/22 [History Confirmed 04/23/23] docusate sodium 100 mg capsule 100 mg PO BID PRN Constipation 15 days #30 caps 09/01/22 [Rx Confirmed 04/23/23] amlodipine 2.5 mg tablet (Norvasc) 2.5 mg PO DAILY 04/13/23 [History Confirmed 04/23/23] clonazepam 1 mg tablet (Klonopin) 1 mg PO TID 04/13/23 [History Confirmed 04/23/23] gabapentin 300 mg capsule (Neurontin) 300 mg PO BID 04/13/23 [History Confirmed 04/23/23] levothyroxine 75 mcg tablet 75 mcg PO DAILY.0630 04/13/23 [History Confirmed 04/23/23] lisdexamfetamine 30 mg capsule (Vyvanse) 30 mg PO DAILY 04/13/23 [History Confirmed 04/23/23] trazodone 150 mg tablet 300 mg PO HS PRN Insomnia 04/13/23 [History Confirmed 04/23/23] bupropion HCl 150 mg 24 hr tablet, extended release 150 mg PO DAILY 30 days #30 tabs 04/17/23 [Rx Confirmed 04/23/23] mirtazapine 45 mg tablet 45 mg PO QHS #30 tabs 04/17/23 [Rx Confirmed 04/23/23] nortriptyline 25 mg capsule 25 mg PO QHS 30 days #30 caps 04/17/23 [Rx Confirmed 04/23/23] quetiapine 25 mg tablet 25 mg PO TID PRN Anxiety #60 tabs 04/17/23 [Rx Confirmed 04/23/23] bupropion HCl 300 mg 24 hr tablet, extended release 300 mg PO DAILY 04/23/23 [History Confirmed 04/23/23] Exam Physical Exam Vital Signs: Temp Pulse Resp BP Pulse Ox O2 Del Method 98 F 87 16 164/86 H 97 Room Air 04/23/23 07:30 04/23/23 07:30 04/23/23 07:30 04/23/23 07:30 04/23/23 07:30 04/23/23 07:30 Assessment/Plan (1) Generalized anxiety disorder: Code(s): F41.1 - Generalized anxiety disorder Status: Acute (2) Bipolar disorder, current episode depressed, mild: Code(s): F31.31 - Bipolar disorder, current episode depressed, mild Status: Acute (3) Stimulant use disorder: Code(s): F15.90 - Other stimulant use, unspecified, uncomplicated Status: Acute (4) Acute anxiety: Code(s): F41.9 - Anxiety disorder, unspecified Status: Acute Plan Admit to for management of depression and to ensure safety of self due to SI. Start Zofran for nausea. Add Caplyta 42 mg PO QHS for bipolar depression Hospitalist consult for co-morbid medical management. She reports she is an allergic to Bactrim and would like to speak to hospitalist about different choice of antibiotic. Wound care was also consupted. Monitor suicidal behaviors for safety of self (15-minute face check). Recommend attending groups and psychoeducation for building coping skills. Risks, benefits and indications of medications were discussed with the patient. The patient verbalized understanding. No abnormal movements noted on exam. AIMS is Zero. Involve friends/family members to coordinate care and ensure appropriate outpatient appointments are scheduled prior to discharge. Documented By: Olvin Rollins MD 3 [id number] Signed By: <Electronically signed by Olvin Rollins MD> 04/23/23 0951 [facility] Work Phone: 1(161) 555-575611-30-2022 Discharge summary Author Olvin tavares [facility] September 01, 2022 10:03am Note Date/Time September 01, 2022 10:03am [facility] [address] [place] [address] Discharge Summary Signed Patient: Loyda Scott MR#: [id number] : 1975 Acct:[id number] Age/Sex: 47 / F Adm Date: 2 Loc: Room: [address] [place] [address]: Miah Abreu MD Copies to: MD Miah Ibanez MD NO FAMILY PHYSICIAN~ Providers Date of Discharge: 09/01/22 Discharging Provider: Serafin Rollins Primary Care Provider: PHYSICIAN NO FAMILY Discharge Diagnosis (1) Stimulant use disorder: (2) Unspecified psychosis: (3) Generalized anxiety disorder: Final Diagnosis Final Discharge Diagnosis: QING Unspecified psychosis Summary Hospital Course Hospital course: Ms. Tyler is a 47 year old female with a reported history of bipolar disorder, anxiety and stimulant use disorder who presented due to concern for depression and suicidal ideation with plan to OD. At the time of the interview, patient? presents as withdrawn.? [facility] and has not been taking her medications.??She states that she was partying at someones house and left in therain.? She was found laying on the sidewalk in the rain by EMS and transported to [facility].? Patient admits to attempting suicide x2 at hospital. Patient states she has been having suicidal thoughts for weeks, admits to smoking crack around 6am yesterday.?Pertinent stressors include being homeless because she was living with her sister and they are not getting along so she cannot go back to her sisters home. She rated her depression at 8 out of 10 with 10 being the worst.? She did reportsome suicidal ideation in the emergency department.? She is agreeable with re- starting meds. m Past psych history: Depression and substance use issues Past hospitalizations: History of past psychiatric hospitalizations Past suicide attempts: History of suicide attempt by overdose Previous medications: BuSpar, Zyprexa, Trintellix, Xanax, Cymbalta, Neurontin, Alcohol and drug use: Reported meth, cocaine and marijuana use. Living: With friends and family The course of treatment: The patient relapsed on drugs once she was discharged from the hospital. She wasnot consistent with her meds. Psychotropic medications targeting depression and anxiety were started and she was provided supportive and reality oriented therapy. She did not want to take Trintelix because it caused diarrhea. She feltthat her symptoms have improved on the current medication regimen, and has been compliant with treatment, and reported no side effects. Her sleep and appetite were okay. She has been attending groups and described them as useful building coping skills. The patient has denied any access to firearms or lethal weapons. She felt better than before coming to the hospital and feels hopeful regarding her future. She was offered inpatient rehab but preferred the outpatient route. She understands the importance of outpatient follow-up to ensure the stability of her symptoms. She denied suicidal or homicidal ideation and verbalized the intent to notify the staff if she has such thoughts. No suicidal or self-injurious behaviors occurred during inpatient treatment. She said a friend can pick her up at the time of discharge. She does not want tostay with her sister staing that they do not get along. She was given emotionalsupport, counseled, and educated regarding the prognosis of her diagnosis. She expresses understanding and says she is better after learning coping skills andthe medications prescribed in the inpatient unit. The patient stated that she was ready to go. She did not meet criteria for involuntary psychiatric hospitalization. Patient achieved maximum benefit from attending inpatient treatment and was suitable for outpatient follow up. I explained to the patient that her discharge from the hospital does not mean that her medical care ends here. She needs consistent outpatient follow-up, cognitive behavioral therapy, and treatment plan to be handled from this point on by out patient team. Discharge disposition: Home with a friend. Coordinated via case management. Safe discharge Planning: With the cessation of all suicidal ideation, improvements in mood, and absence of any psychotic symptoms at the time of discharge, aftercare plans were solidified. She was able to formulate a believable Safety Plan. Discharge plans were discussed with the patient and the treatment team. All agreed with the discharge plan. On the day of discharge, she was evaluated and had no complaints. She denied any SI/HI. She agreed to follow up with outpatient treatment as arranged by case management. She had no complications during her stay. Suicide risk assessment: A thorough review of risk and protective factors was conducted. Discussed with the patient the following recommendations that would help reduce suicide which includes limiting the number of medications to a 15-day supply with one refill at the time of discharge to avoid potential overdose,consistent outpatient follow up preferably within seven days of release, involving family members in her care, and her desire to live. She reports [facility], good response to medication management and therapy, availability of local mental health services and willingness to follow up, lack of suicidal ideation, intent or plan, lack of impulsivity, agitation, or psychotic behavior. Pt is future- oriented and understands the importance of outpatient follow-up. Considering positive factors like family and hernando, lack of access to firearms, and desire to continue treatment makes suicide risk minimal. Given the chronicity of suicidality, we discussed measures to help her with long-term safety. The patient is not suicidal or psychotic now. To help decreaseher suicide risk, as best I can, I am referring her for outpatient treatment andCBT for long-term follow-up to have somewhere to go and someone to manage her assymptoms and stressors develop. This is the best way to keep her alive. So, we discussed a crisis plan for future suicidality: at the first sign of distress, she will call the hotline; if this is not sufficient, she will 911, then call family members or friends; ultimately, she will come to the ER. Safety: The patient is not acutely psychotic and is safe to continue treatment on an outpatient basis. The patient was made aware of the 25/04 emergency services of the crisis center. She was advised to call 911 or go to the nearest ER in case of a crisis ( (including having thoughts of harming herself or others). Risks (metabolic, EPS, the effect on heart), benefits, and alternatives for medications were discussed. She verbalized understanding. Her consent was obtained. She was advised not to drink alcohol while taking medications. I advised patientthat using drugs can increase risk of impulsiveness and making poor decisions. Continue supportive therapy with some CBT techniques. Psycho-education and compliance counseling were provided. She denies current and is aware to notify her psychiatrist if she becomes due to the risk of harm to the fetus. MSE: Orientation: Alert and oriented to person, place, and time. Appearance/Behavior: Fair grooming and hygiene, calm, cooperative, engaged in the interview. Good eye contact. Normal psychomotor activity. Speech: normal rate, rhythm, volume, and tone. Non pressured. Knowledge: Appropriate for age and level of education Mood: okay Affect: reactive, mood-congruent Thought process: linear, logical, and goal-oriented Thought content: No SI/HI. No AVH. No delusions. Does not appear to be responding to internal stimuli. Concentration: Grossly intact based on track during the interview Associations: No loosening of associations Memory: Able to recall recent and remote historical information Insight: Fair, able to appreciate current symptoms and need for outpatient treatment Judgment: fair, agreed to follow treatment recommendations, socially appropriate with interviewer and staff. Time spent discussing smoking cessation with patient: more than 10 minutes Condition Condition at Discharge: Fair Status at Discharge Functional status at discharge: independent ambulation Time Spent with Patient Time spent providing/coordinating discharge services (# min): 95 Diagnostic Studies Completed and Pending Studies Labs on day of discharge: 11/29/22 12:20: Urine Color Yellow, Urine Appearance Clear, Urine pH 6.5, Ur Specific Saxe 1.006, Urine Protein Negative, Urine Glucose (UA) Normal, UrineKetones Negative, Urine Occult Blood Negative, Urine Nitrite Negative, Urine Bilirubin Negative, Urine Urobilinogen Normal, Ur Leukocyte Esterase Negative Exam Physical Exam Vital Signs: Temp Pulse Resp BP Pulse Ox O2 Del Method 97.7 F 78 16 132/83 96 Room Air 09/01/22 07:30 09/01/22 07:30 09/01/22 07:30 09/01/22 07:30 09/01/22 07:30 09/01/22 07:30 Discharge Plan Discharge Plan Patient Disposition: Home Activity: No Activity Restriction Diet: Regular Prescriptions: New sennosides [Senna Lax] 8.6 mg Tablet 1 tab PO BID PRN (Reason: Constipation) 15 Days Qty: 30 0RF docusate sodium 100 mg Capsule 100 mg PO BID PRN (Reason: Constipation) 15 Days Qty: 30 0RF Continued alprazolam 1 mg tablet 1 mg PO BID PRN (Reason: Anxiety) 7 Days Qty: 14 0RF levothyroxine 75 mcg tablet 75 mcg PO DAILY Label Comments: take 1 tablet by mouth every morning ON AN EMPTY STOMACH at 0630 atorvastatin [Lipitor] 40 mg tablet 40 mg PO HS Label Comments: take 1 tablet by mouth every evening zolpidem [Ambien] 5 mg tablet 5 mg PO HS PRN (Reason: Insomnia) Label Comments: take 1 tablet by mouth at bedtime if needed gabapentin [Neurontin] 400 mg capsule 400 mg PO TID 15 Days Qty: 30 0RF mirtazapine [Remeron] 30 mg tablet 30 mg PO HS 15 Days Qty: 15 1RF bupropion HCl [Wellbutrin SR] 200 mg tablet sustained-release 12 hr 200 mg PO BID 15 Days Qty: 30 0RF propranolol 20 mg tablet 20 mg PO BID 15 Days Qty: 15 1RF Label Comments: take 1 tablet by mouth twice a day Discontinued Trintellix 20 mg Tablet 20 mg PO DAILY 30 Days Qty: 30 0RF Follow Up: [facility] [Other] - 09/07/22 10:00 am ( Pschiatry: Tuesday09/07/22 @ 10:00am with AUDI Zarate Referral for therapy & IOP treatment will be made at this time Psychiatry: 09/30/22 @ 12:[address] Stubbs. ) Documented By: Olvin Rollins MD 2 1000 Signed By: <Electronically signed by Olvin Rollins MD> 09/01/22 1003 [facility] Work Phone: [phone]) 914-278211-29-2022 Progress note Author Olvin tavares [facility] August 31, 2022 9:32am Note Date/Time August 31, 2022 9:32am [facility] [address] [place] [address] Psychiatry Progress Note Signed Patient: Loyda Scott MR#: [id number] : 1975 Acct:[id number] Age/Sex: 47 / F Adm Date: 2 Loc: Room: [address] [place] [address] Type : ADM IN Attending Dr: Miah Abreu MD Copies to: ~ Date of Service: 08/31/2022 Subjective Subjective Narrative: Patient report she is feeling better. Depression and anxiety are stabilizing gradually on the current medication regimen. Anxiety is moderate in intensity with attempted utilization of coping skills. She denies SI/HI and verbalized theintent to notify staff if she has such thoughts. She continues to be compliant with prescribed medications and is visible within the unit milieu. She does not want to tatke Trintelix because it caused diarrhea. States her ex- can pick her up when ready to go. We have agreed to continue the current medications regimen. Risks, benefits, andindications of medications were discussed. Appearance: dressed casually Mental Status: mental status grossly normal Mood: Euthymic mood Affect: Normal affect Speech and Movement: speech and movement normal and speech clear Attitude: cooperative Thought Process: normal Thought Content: Denied hallucinations, no homicidality and no suicidality Insight: fair Judgment: fair Impulse control: fair Exam Physical Exam Vital Signs: Temp Pulse Resp BP Pulse Ox O2 Del Method 97.6 F 77 16 96/68 L 96 Room Air 08/30/22 19:38 08/30/22 19:38 08/30/22 19:38 08/30/22 19:38 08/30/22 19:38 08/30/22 19:38 Assessment/Plan Assessment/Plan (1) Stimulant use disorder: Code(s): F15.90 - Other stimulant use, unspecified, uncomplicated Status: Acute (2) Unspecified psychosis: Code(s): F29 - Unspecified psychosis not due to a substance or known physiological condition Status: Acute (3) Generalized anxiety disorder: Plan: Patient reports feeling better. No SI/HI Stop Trintelix as patient noted it is causing diarrhea. Risks, benefits and indications of medications were discussed with the patient. The patient verbalized understanding. Monitor suicidal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 sources, and as a consequence, information in this document may materially change the coding, format and clinical context of patient data. In addition, data may be omitted in some cases. CLINICAL DECISIONS SHOULD BE BASED ON THE PRIMARY CLINICAL RECORDS. [employer] provides no warranty or guarantee of the accuracy or completeness of information in this document.
[2023-10-10 00:52] LABS: Basophils Percent Auto 0.5 % (0.2-2.0); Eosinophils Absolute Auto 0.1 10^3/uL (0.0-0.7); Hematocrit 46.2 % (36.0-48.0); Hemoglobin 15.1 g/dL (12.0-16.0); Immature Granulocytes Abs Auto 0.02 10^3/uL (0.00-0.03); Immature Granulocytes Pct Auto 0.3 % (0.0-0.5); Lymphocytes Absolute Auto 1.6 10^3/uL (1.2-3.8); Lymphocytes Percent Auto 26.2 % (20.5-60.0); Mean Corpuscular HGB Conc 32.7 g/dL (29.9-35.2); Mean Corpuscular Hemoglobin 32.1 pg (26.7-34.0); Mean Corpuscular Volume 98.1 fL (81.0-99.0); Mean Platelet Volume 10.9 fL (9.5-13.5); Monocytes Absolute Auto 0.4 10^3/uL (0.3-0.8); Monocytes Percent Auto 6.8 % (1.7-12.0); Neutrophils Percent Auto 64.2 % (43.0-75.0); Platelet Count 243 10^3/uL (150-450); Red Blood Count 4.71 10^6/uL (4.20-5.40); White Blood Count 6.2 10^3/uL (4.0-11.0)
--- NOTE | 2023-10-10 01:28 | PC.NURSE ---
Patient arrives to the ED stating that 3 hours ago she took 800mg Trazodone after using an unknown amount of cocaine. 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 She states that she took the Trazodone as an attempt to end her life, because she is a burden to her family. She wanted to go to sleep and not wake up.
--- NOTE | 2023-10-10 01:36 | PC.NURSE ---
Hotline is called. Spoke with Rocío. oRcío informs this RN that the patient had reached out to them prior to calling 911, states that we need to call poison control to see what their recommendations are. This RN informs her that I will call, however it has already been almost 4 hours since the patient ingested the pills, she is alert and oriented, dr Medel has seen the EKG and states that it looks okay, and says he is prepared to clear her as long as her lab work is okay. Rocío states that she will call the counselor that is [employer] dealer and let her know this and call back.
--- NOTE | 2023-10-10 01:41 | PC.NURSE ---
This RN called poison control. Their advice is to monitor the patient for 4-6 hours from the time of ingestion of the trazadone, which is, at minimum, 20 minutes from this time. We are to watch for clonus and nystagmus, respiratory depression. They were provided with a set of vital signs and the measurements from the EKG. they will be calling back for results of the lab work. He did state they only provide guidelines and the final decision is ultimately up to the provider whether the patient is allowed to be discharged or not.
--- NOTE | 2023-10-10 01:43 | PC.NURSE ---
Rocío called back, the recommendation from poison control was passed along to her, she states she is going to pass it along to Charity who is the counselor design and sales consultant. She asks that we fax the lab results to the hotline when they are available.
--- NOTE | 2023-10-10 01:44 | PC.NURSE ---
Patient is doing a face to face with Aleisha on the iphone.
--- NOTE | 2023-10-10 02:32 | PC.NURSE ---
Poison control called back to get an update on patient condition and lab results. They were satisfied with patient outcome and plan and are closing the case.
[2023-10-10] MEDS: ONDANSETRON 4 MG RAPDIS TABLET SL ×2 (02:45→05:40)
--- NOTE | 2023-10-10 07:18 | PC.NURSE ---
Nursing report called to Анна NESS at [facility].
[2023-10-10 07:35] VITALS: BP 107/73; PULSE 107; RESP 18
[2023-10-12 20:38] LABS: SARS-CoV-2 Ag NEGATIVE (NEGATIVE)
[2023-10-12 20:42] LABS: Anion Gap 12.9; Carbon Dioxide 31.4 mmol/L (21.0-32.0); Chloride 102 mmol/L (98-107); Potassium 4.3 mmol/L (3.5-5.1); Sodium 142 mmol/L (136-145)
[2023-10-12 20:43] LABS: Acetaminophen <2.0 ug/mL (10.0-30.0); BUN Creatinine Ratio 8.7; Calcium 10.2 mg/dL (8.5-10.1); Estimated GFR (African America >60 (>=60); Estimated GFR (Non-African Ame 57 (>=60); Ethanol <3 mg/dL; Salicylate <2.8 mg/dL (<=19.9)
[2023-10-12 20:47] LABS: Glucose 104 mg/dL (74-106)
== END 2023-10-10 07:37 ==
PROVIDERS: Emergency Provider Emergency Medicine
DX: T43.212A Poisoning by selective serotonin and norepinephrine reuptake inhibitors, intentional self-harm, initial encounter (principal); Z79.899 Other long term (current) drug therapy; Z79.890 Hormone replacement therapy; F17.210 Nicotine dependence, cigarettes, uncomplicated; Z20.822 Contact with and (suspected) exposure to COVID-19
CPT/HCPCS: 36415; 80048; 80179; 80307; 80320; 80329; 81001; 85025; 87635; 87811; 93005; 99285; Q0162

== ENCOUNTER 2024-06-20 08:53 | Emergency (ER) | payer MEDICAID, SELFPAY ==
[2024-06-20] VITALS (7 sets, daily range): BP systolic 139–187; BP diastolic 96–112; PULSE 80; TEMP 36.6; O2SAT 97–98; BMI 34.8
--- NOTE | 2024-06-20 09:03 | XR_ITS ---
The [address] [address] Patient Name: LOYDA MITTAL MRN: [id number] date: 1975 Sex: F Assigned Patient Location: ER Current Patient Location: ER Accession/Order Number: [id number] Exam Date: 06/20/2024 09:20 Report Date: 06/20/2024 09:33 At the request of: ALICE RAZO Procedure: XR chest 1V EXAMINATION: XR chest 1V HISTORY: cp COMPARISON: 03/24/2022 TECHNIQUE: Portable FINDINGS: LUNGS: No significant pulmonary parenchymal abnormalities. Stable pulmonary nodules, size and density suggests calcified granulomas VASCULATURE: No increased pulmonary vasculature. PLEURA: No pneumothorax, effusion, or pleural thickening. CARDIAC: No cardiomegaly or cardiac silhouette abnormality. MEDIASTINUM: Calcifications consistent with old granulomatous disease. BONES: No fracture or visible bone lesion. Cervical fusion hardware OTHER: Negative. XR/XR chest 1V IMPRESSION: No acute cardiopulmonary process Electronically authenticated by: KELLI COURTNEY Date: 06/20/2024 09:33
--- NOTE | 2024-06-20 09:03 | ECG_ITS ---
The [facility] Test Date: 2024-06-20 Pat Name: LOYDA MITTAL Department: Room: - Gender: Female Count Team Clerk: : 1975 Requested By: [id number] Order Number: [id number] Reading MD: RICHMOND MACKEY Measurements Intervals [place] Rate: 71 P: 56 AK: 130 QRS: 63 QRSD: 78 T: 51 QT: 414 QTc: 436 Interpretive Statements 1100 Sinus rhythm 8102 Low QRS voltage in chest leads 9120 atypical ECG Compared to ECG 10/09/2023 23:18:38 No significant changes Electronically Signed On 06-20-2024 23:07:17 EDT by RICHMOND MACKEY
--- NOTE | 2024-06-20 09:06 | ED.GENADUL1 ---
HPI HPI - General Adult General Chief complaint: Nausea/Vomiting/Diarrhea Stated complaint: NAUSEA, VOMITING, DIAHRREA Time Seen by Provider: 06/20/24 08:56 Source: patient Mode of arrival: ambulance Limitations: no limitations History of Present Illness HPI narrative: Patient presents to ED complaining of chest pain, tightness and some shortness of breath. She says she is having anxiety and a panic attack. She does have a history of anxiety and has been worse for the past 6 months. She said she has been talking to somebody about her anxiety. She said her aunt has bone cancer and her sister is in correction. She said things in her family have just been very stressful and she lives alone and is having difficulty coping with all of the stress. She also reports that she has felt unwell for the past few days and has not really gotten out of bed much. She has had nausea vomiting upset stomach and diarrhea. She said it is very watery and she actually had some diarrhea in her pants today and she was concerned because she was feeling so bad. She has not been able to take her medications in the past couple of days because she has not been able to keep anything down. She denies any acute abdominal pain just feels bloated and crampy with the diarrhea. She does say that her son had a cough last weekend when he came over to visit but otherwise denies sick contacts. She is alert and oriented, anxious and tearful. Related Data Home Medications ?Medication ?Instructions ?Recorded ?Confirmed levothyroxine 75 mcg tablet 75 mcg PO DAILY 04/13/23 06/20/24 lisdexamfetamine 30 mg capsule 30 mg PO DAILY 04/13/23 06/20/24 (Vyvanse) alprazolam 1 mg tablet 1 mg PO BID 08/23/23 06/20/24 estradiol 0.5 mg tablet 0.5 mg PO DAILY 06/20/24 06/20/24 zolpidem 5 mg tablet 5 mg PO DAILY 06/20/24 06/20/24 Previous Rx's ?Medication ?Instructions ?Recorded ondansetron 4 mg disintegrating 4 mg PO DAILY PRN nausea and 06/20/24 tablet vomiting #15 tabs Allergies Allergy/AdvReac Type Severity Reaction Status Date / Time buspirone [From BuSpar] Allergy Verified 04/13/23 02:03 hydroxyzine [From Vistaril] Allergy Verified 04/13/23 02:03 metronidazole [From Flagyl] Allergy Verified 04/23/23 02:42 tramadol Allergy Verified 04/13/23 02:03 sulfamethoxazole AdvReac Severe Diarrhea Verified 08/23/23 18:00 [From Bactrim] trimethoprim [From Bactrim] AdvReac Severe Diarrhea Verified 08/23/23 18:00 SSRIs Allergy Uncoded 04/13/23 02:03 Opioid HPI Opioid Management Most Recent Opioid Data: Last Pain Scale 8 04/23/23 00:00 Ur Phencyclidine Scrn Negative (NEGATIVE) 08/23/23 18:15 Review of Systems ROS Status of ROS 10 or more systems reviewed and unremarkable except as noted in history and below PFSH PFSH Social History Smoking status: Current every day smoker Little interest or pleasure in doing things: not at all Feeling down, depressed, or hopeless: not at all Exam Narrative Exam Narrative: Time Seen: [] Vital Signs: [Per nurse's notes.] General: [Alert] Skin: [Warm, dry, no rash.] Head: [Normocephalic, atraumatic.] Neck: [Supple, trachea midline.] Eye: [Pupils are equal, round and reactive to light, extraocular movements are intact, normal conjunctiva.] Ears, nose, mouth and throat: oral mucosa moist. Cardiovascular: [Regular rate and rhythm, no murmur.] Respiratory: [Lungs are clear to auscultation, respirations are non-labored, breath sounds are equal.] Chest wall: [No tenderness, no deformity.] Gastrointestinal: [Soft, nontender, non distended, normal bowel sounds.] MSK: 5 out of 5 muscle strength x 4 extremities no calf pain or edema Lymphatics: [No lymphadenopathy.] Psychiatric: [Cooperative, Anxious, tearful Neurological: [Alert and oriented to person, place, time, and situation, no focal neurological deficit observed.] Constitutional Vital Signs, click to edit/add: Last Vital Signs Temp 98 F 06/20/24 08:55 Pulse 80 06/20/24 08:55 Resp 13 06/20/24 10:50 BP 139/96 H 06/20/24 09:13 Pulse Ox 97 06/20/24 10:50 O2 Del Method Room Air 06/20/24 08:55 Course Vital Signs Vital signs: Vital Signs Temperature 98 F 06/20/24 08:55 Pulse Rate 80 06/20/24 08:55 Respiratory Rate 16 06/20/24 08:55 Blood Pressure 187/112 H 06/20/24 08:55 Pulse Oximetry 98 06/20/24 08:55 Oxygen Delivery Method Room Air 06/20/24 08:55 Temperature 98 F 06/20/24 08:55 Pulse Rate 80 06/20/24 08:55 Respiratory Rate 13 06/20/24 10:50 Blood Pressure 139/96 H 06/20/24 09:13 Pulse Oximetry 97 06/20/24 10:50 Oxygen Delivery Method Room Air 06/20/24 08:55 Medical Decision Making MDM Narrative Medical decision making narrative: Labs are nonacute including troponin. Patient is feeling better after anxiety medication and IV fluids. Most likely a viral syndrome causing the diarrhea. Follow-up with family doctor and continue therapy as scheduled. Return to ED if worsening symptoms. Patient is comfortable care plan for home. Differential Diagnosis Differential Diagnosis: Viral syndrome, COVID,Gastroenteritis, anxiety Lab Data Lab results reviewed: Yes I reviewed the patient's lab results Labs: Lab Results 06/20/24 06/20/24 Range/Units 09:10 10:20 WBC 8.3 (4.0-11.0) 10^3/uL RBC 4.63 (4.20-5.40) 10^6/uL Hgb 15.5 (12.0-16.0) g/dL Hct 44.6 (36.0-48.0) % MCV 96.3 (81.0-99.0) fL MCH 33.5 (26.7-34.0) pg MCHC 34.8 (29.9-35.2) g/dL RDW 12.4 (11.0-15.0) % Plt Count 264 (150-450) 10^3/uL MPV 10.8 (9.5-13.5) fL Neut % (Auto) 81.8 H (43.0-75.0) % Lymph % (Auto) 10.2 L (20.5-60.0) % Carver % (Auto) 6.1 (1.7-12.0) % Eos % (Auto) 1.0 (0.9-7.0) % Baso % (Auto) 0.5 (0.2-2.0) % Neut # (Auto) 6.8 H (1.4-6.5) 10^3/uL Lymph # (Auto) 0.9 L (1.2-3.8) 10^3/uL Carver # (Auto) 0.5 (0.3-0.8) 10^3/uL Eos # (Auto) 0.1 (0.0-0.7) 10^3/uL Baso # (Auto) 0.0 (0.0-0.1) 10^3/uL Abs Immat Gran (auto) 0.03 (0.00-0.03) 10^3/uL Imm/Tot Granulo (auto) 0.4 (0.0-0.5) % Sodium 139 (136-145) mmol/L Potassium 4.0 (3.5-5.1) mmol/L Chloride 105 (98-107) mmol/L Carbon Dioxide 24.3 (21.0-32.0) mmol/L Anion Gap 13.7 BUN 4.0 L (7.0-18.0) mg/dL Creatinine 0.83 (0.55-1.02) mg/dL Est GFR ( Amer) >60 (>=60) Est GFR (Non-Af Amer) >60 (>=60) BUN/Creatinine Ratio 4.8 Glucose 115 H (74-106) mg/dL Calcium 9.1 (8.5-10.1) mg/dL Total Bilirubin 0.6 (0.2-1.0) mg/dL AST 72 H (15-37) U/L ALT 74 H (14-59) U/L Alkaline Phosphatase 54 (46-116) U/L Troponin I High Sens 4.3 (4.0-51.3) pg/mL Total Protein 7.7 (6.4-8.2) g/dL Albumin 4.2 (3.4-5.0) g/dL Globulin 3.5 g/dL Albumin/Globulin Ratio 1.2 TSH & Free T4 Interp 1.080 (0.358-3.740) uIU/mL Urine Color Lt. yellow (YELLOW) Urine Clarity Clear (CLEAR) Urine pH 6.0 (5.0-9.0) Ur Specific [place] <=1.005 A (1.005-1.025) Urine Protein Negative (NEG/TRACE) mg/dL Urine Glucose (UA) Negative (NEGATIVE) mg/dL Urine Ketones Negative (NEGATIVE) mg/dL Urine Occult Blood Negative (NEGATIVE) Urine Nitrite Negative (NEGATIVE) Urine Bilirubin Negative (NEGATIVE) Urine Urobilinogen 0.2 (0.2-1.0) EU/dL Ur Leukocyte Esterase Negative (NEGATIVE) SARS-CoV-2 Ag (CV2AG) Negative (NEGATIVE) Streptococcus Screen Negative Imaging Data Chest x-ray: Radiologist's impression: ITS Impressions Chest X-Ray 06/20/24 09:03 IMPRESSION: No acute cardiopulmonary process Electronically authenticated by: KELLI COURTNEY Date: 06/20/2024 09:33 ECG Data Attestation: I personally reviewed and interpreted this ECG as follows: Interpretation: EKG INTERPRETATION Time: []857 Rate: []71 Rhythm: _ []Normal sinus rhythm ST segments: _ []No acute ST elevation or depression T waves: _ [] Ectopy: _ [] P wave/NE interval: _ [] QRS interval: _ [] QT interval: _ [] Comparison: _ [] Comparison EKG date: [] Performed by: [self] Discharge Plan Discharge Chief Complaint: Nausea/Vomiting/Diarrhea Clinical Impression: Diarrhea, Anxiety Patient Disposition: Home, Self-Care Time of Disposition Decision: 11:00 Condition: Good Mode of Transportation: Private Vehicle Prescriptions / Home Meds: New ondansetron 4 mg tablet,disintegrating 4 mg PO DAILY PRN (Reason: nausea and vomiting) Qty: 15 0RF No Action levothyroxine 75 mcg tablet 75 mcg PO DAILY lisdexamfetamine [Vyvanse] 30 mg capsule 30 mg PO DAILY estradiol 0.5 mg tablet 0.5 mg PO DAILY zolpidem 5 mg tablet 5 mg PO DAILY alprazolam 1 mg tablet 1 mg PO BID Print Language: Hungarian Instructions: Acute Diarrhea (ED), Anxiety (ED) Referrals: Physician,Non-Staff, MD [Primary Care Provider] - 1 week Discharge Date/Time: 06/20/24 11:46
[2024-06-20 09:18] LABS: Basophils Percent Auto 0.5 % (0.2-2.0); Eosinophils Absolute Auto 0.1 10^3/uL (0.0-0.7); Hematocrit 44.6 % (36.0-48.0); Hemoglobin 15.5 g/dL (12.0-16.0); Immature Granulocytes Abs Auto 0.03 10^3/uL (0.00-0.03); Immature Granulocytes Pct Auto 0.4 % (0.0-0.5); Lymphocytes Absolute Auto 0.9 10^3/uL (1.2-3.8); Lymphocytes Percent Auto 10.2 % (20.5-60.0); Mean Corpuscular HGB Conc 34.8 g/dL (29.9-35.2); Mean Corpuscular Hemoglobin 33.5 pg (26.7-34.0); Mean Corpuscular Volume 96.3 fL (81.0-99.0); Mean Platelet Volume 10.8 fL (9.5-13.5); Monocytes Absolute Auto 0.5 10^3/uL (0.3-0.8); Monocytes Percent Auto 6.1 % (1.7-12.0); Neutrophils Absolute Auto 6.8 10^3/uL (1.4-6.5); Neutrophils Percent Auto 81.8 % (43.0-75.0); Platelet Count 264 10^3/uL (150-450); Red Blood Count 4.63 10^6/uL (4.20-5.40); Red Cell Distribution Width 12.4 % (11.0-15.0); White Blood Count 8.3 10^3/uL (4.0-11.0)
--- OUTSIDE RECORDS SUMMARY | 2024-06-20 09:19 | XMS_ITS | CCD ---
Author Organization [facility] Inform ion Partnership [facility] Care Team Providers Care Life Advisor Name Role Phone VITALIY BENJI A Unavailable Unavailable CATA BURKSICA A Unavailable Unavailable KELLI GUSMAN Unavailable Unavailable KELLI GUSMAN Unavailable Unavailable INDURTI, PREM V Admitting Unavailable RICKURTI, PREM V Attending Unavailable JONI ESQUIVEL Referring Unavailable BRANDEN VAZQUEZ Primary Care Unavailable Branden Vazquez Primary Care Provider Imm Branden STORM Primary Care Provider JUAN LUIS WHITING Referring Unavailable BRANDEN VAZQUEZ Primary Care Unavailable NON STAFF Primary Care Provider UnavailMD Miah Elias Admit Provider [phone] MD Miah Abreu Attending Provider [phone] MD Serafin Rollins Admit Provider [phone] MD Serafin Rollins Attending Provider NON STAFF Primary Care Provider UnavailMD Serafin Zaldivar Admit Provider [phone] MD Serafin Rollins Attending Provider NO FAMILY, PHYSICIAN Primary Care Provider Unava ilable MD Miah Abreu Admit Provider [phone] MD Miah Abreu Attending Provider [phone] OTTO SIEGEL Attending Unavailable DR NOEMY NAGY Primary Care Unavailable OTTO SIEGEL Admitting Unavailable SAUL LYONS Consulting Unavailable YAKOV, DR SALGUERO Primary Care Unavailable KARLA, DR BEATA Last Admitting Unavailable KARLA, DR BEATA Last Attending Unavailable DR BEATA CHAN Consulting Unavailable DR YARON LANG Consulting Unavailable MARIMAR VIVAS Consulting Unavailable MARIPOSA MARTIN Consulting Unavailable YAKOV, DR SALGUERO Primary Care Unavailable RIGOBERTO, DR OTERO Admitting Unavailable RIGOBERTO, DR OTERO Attending Unavailable RIGOBERTO, DR OTERO Consulting Unavailable PRECIOUS, DR MARRUFO Admitting Unavailable HAY, DR MARRUFO Attending Unavailable MEMECHNY, SAUL GONSALES Consulting Unavailable MISC, DR SALGUERO Primary Care Unavailable TROTOPHER PALMA Consulting Unavailable CONOR, EDY Attending Unavailable CONOR, EDY Consulting Unavailable CONOR, EDY Admitting Unavailable [facility] Primary Care Unavailable KAYLA NYE Consulting Unavailable MD Miah Abreu Admit Provider MD Miah Abreu Attending Provider NON STAFF Primary Care Provider Unavailisac e MD Serafin Rollins Admit Provider MD Serafin Rollins Attending Provider GROVER Ko Other Provider Unavailable GROVER Bonner Other Provider Unavailable GROVER Delacruz Other Provider Unavailable GROVER Lazo Other Provider Unavailable GROVER Centeno Other Provider Unavailable Nicole RN Vaishali Other Provider Unavailable Dials, AIRPLANE REFUELER Alessandra Simmons Other Provider DO Valentina Nice Other Provider MD Rush Ramsey Other Provider DO Santi Rudd Other Provider MD Zeus Bright Other Provider [phone] MD Ya Simms Other Provider [phone] Sherif, ANP-BC Adele Other Provider MD Yessy Bustillos Other Provider MD Irwin [...] Other Provider DO Jordan Dumont Other Provider [phone] DO Jim Wells Other Provider TANNER Douglas Other Provider DO Eddie Jensen Other Provider [phone] MD Emanuel Esposito Other Provider TANNER Chan Other Provider TANNER Delgado Other Provider [phone] MD Danny Mancia Other Provider MD Sánchez Noble Other Provider GROVER Galvan Other Provider Unavailable MD Guilherme Carbone Other Provider MD Jesus Molina Other Provider MD Charity Manzo Other Provider DO Monroe Zepeda Other Provider [phone] MD Efrain Alcazar II Other Provider DO Gwyn Wyatt Other Provider Efrain Alcazar II Unavailable NON STAFF Primary Care Provider UnavailMD Olvin Zaldivar Admit Provider MD Olvin Rollins Attending Provider [phone] GROVER Ko Other Provider Unavailable GROVER Bonner Other Provider Unavailable GROVER Delacruz Other Provider Unavailable Clifton RN Carmella Other Provider Unavailable GROVER Centeno Other Provider Unavailable GROVER Rivera Other Provider Unavailable MD Alon Chand Other Provider TANNER Luna Alessandra M Other Provider DO Valentina Nice Other Provider MD Rush [...] Other Provider MD Kamron Solis Other Provider Saeid CASH POSTING REPRESENTATIVE-C Gris Casillas Other Provider [phone] MD Abisai Madrid Other Provider MD Wolf Irwin Other Provider MD Hammad Zayas Other Provider MD Georgi Rodríguez Other Provider DO Debbie Greenwood Other Provider DO Jordan Dumont Other Provider DO Jim Wells Other Provider [phone] TANNER Douglas Other Provider DO Eddie Jensen Other Provider MD Emanuel Esposito Other Provider TANNER Chan Other Provider TANNER Delgado Other Provider [phone] MD Danny Mancia Other Provider MD Sánchez Noble Other Provider DO Lexx Fox Other Provider [phone] TANNER Malagon Other Provider DO Maycol Lee Other Provider GROVER Galvan Other Provider Unavailable MD Miah Abreu Admit Provider MD Miah Abreu Attending Provider Amna STORM, Lili Primary Care Provider [phone] Bowser AIRPLANE REFUELER-WAREHOUSE ATTENDANT, Michelle Primary Care Provider BOWSER, MICHELLE Attending Unavailable ALI, LILI Referring Unavailable ALI, LILI Primary Care Unavailable ALI, LILI Referring Unavailable BOWSER, MICHELLE Primary Care Unavailable BOWSER, MICHELLE Referring Unavailable ALI, LILI Primary Care Unavailable BOWSER, MICHELLE Referring Unavailable BOWSER, MICHELLE Primary Care Unavailable Bowser, CASH POSTING REPRESENTATIVE-C Michelle K Primary Care Provider MD Olvin Rollins Admit Provider MD Olvin Rollins Attending Provider BOWSER, MICHELLE Primary Care Unavailable DEB MORROW Attending Unavailable BADILLO, CAM Attending Unavailable BADILLO, CAM Attending Unavailable BADILLO, CAM Attending Unavailable BADILLO, CAM Attending Unavailable BADILLO, CAM Attending Unavailable BADILLO, CAM Referring Unavailable BADILLO, CAM Attending Unavailable BADILLO, CAM Attending Unavailable BADILLO, CAM Attending Unavailable BADILLO, CAM Attending Unavailable BADILLO, CAM Attending Unavailable BADILLO, CAM Attending Unavailable BADILLO, CAM Attending Unavailable BADILLO, CAM Attending Unavailable BADILLO, CAM Attending Unavailable BADILLO, CAM Attending Unavailable BADILLO, CAM Referring Unavailable BADILLO, CAM Attending Unavailable BADILLO, CAM Referring Unavailable NON STAFF Primary Care Unavailable Brady, Miah Admitting Unavailable Brady, Miah Attending Unavailable NON STAFF Primary Care Unavailable Ayo, Olvin Admitting Unavailab le Ayo, Olvin Attending Unavailab le Ayo, Olvin Admitting Unavailab le Ayo, Olvin Attending Unavailab le Bowser, Michelle K Primary Care Unavailable Michelle Ko Consulting Unavailable Brady, Miah Attending Unavailable NON STAFF Primary Care Unavailable Ayo, Olvin Admitting Unavailab Jennifer Donis Consulting Unavailable Meme Delacruz Consulting Unavailable Carmella Lazo Consulting Unavailable Arianna Centeno Consulting Unavailable Vaishali Rivera Consulting Unavailable Alessandra Luna Consulting Unavailable Valentina Nice Consulting Unavailable Rush Ramsey Consulting Unavailable Sanit Rudd Consulting UnavailZeus Fernandez Consulting Unavailable Ya Simms Consulting Unavailable Adele Hunter Consulting UnavailYessy Morfin Consulting Unavailable Irwin Rivero Consulting Unavailable Jose Loaiza Consulting Unavailable Demario Spicer Consulting Unavailable Jesus Callahan Consulting Unavailable Becca Bustos Consulting Unavailable Kamron Solis Consulting Unavailable Gris Breaux Consulting Unavailable DoameAbisai price Consulting Unavailab Wolf Watson Consulting Unavailable Hammad Zayas Consulting Unavailable Georgi Rodríguez Consulting Unavailable Debbie Greenwood Consulting Unavailable Jordan Dumont Consulting Unavailable Jim Wells Consulting Unavailable ObJanie pereyra Consulting Unavailable Eddie Jensen Consulting Unavailable Emanuel Esposito Consulting Unavailable Jael Chan Consulting Unavailable Fabi Delgado Consulting Unavailable Danny Mancia Consulting Unavailable Sánchez Noble Consulting Unavailable Charito Galvan Consulting Unavailable Guilherme Carbone Consulting Unavailable Jesus Molina Consulting Unavailable Charity Manzo Consulting Unavailable Monroe Zepeda Consulting Unavailable Efrain Alcazar II Consulting UnavailGwyn Stovall Consulting Unavailable NON STAFF Primary Care Unavailable Michelle Ko Consulting Unavailable Olvin Rollins Attending Unavailab Olvin Rizzo Admitting Unavailab Jennifer Donis Consulting Unavailable Meme Dleacruz Consulting Unavailable Carmella Lazo Consulting Unavailable Arianna Centeno Consulting Unavailable Vaishali Rivera Consulting Unavailable Alon [...] Bustos Consulting Unavailable Kamron Solis Consulting Unavailable Girs Breaux Consulting Unavailable Abisai Madrid Consulting Unavailab Wolf Watson Consulting Unavailable Hammad Zayas Consulting Unavailable Georgi Rodríguez Consulting Unavailable Debbie Greenwood Consulting Unavailable Jordan Dumont Consulting Unavailable Jim Wells Consulting Unavailable ObJanie pereyra Consulting Unavailable Eddie Jensen Consulting Unavailable DaromaEmanuel last Consulting Unavailable Jael Chan Consulting Unavailable Fabi Delgado Consulting Unavailable Alahmad Alaalysa Consulting Unavailable Sánchez Noble Consulting Unavailable Lexx Fox Consulting Unavailable Sofia Malagon Consulting Unavailable Maycol Lee Consulting Unavailable Charito Galvan Consulting Unavailable Allergies Allergy Classification Reported Allergen(s) Allergy Type Date of Onset Reaction(s) Facility (11 sources) diphenhydrAMINE Drug Allergy 07-02-20 19 Anxiety [place] (8 sources) hydrOXYzine Drug Allergy 01-05-20 18 Agitated [place] (2 sources) Ketorolac Drug Allergy 04-22-20 13 Shortness Of Breath [place] (14 sources) metroNIDAZOLE; Translations: [METRONIDAZOLE] Drug Allergy 04-23-20 13 Nausea And Vomiting, Dizziness [place] (2 sources) Morphine Drug Allergy 09-17-20 09 Other (See Comments) [place] (14 sources) Sulfamethoxazole / Trimethoprim; Translations: [SULFAMETHOXAZOLE-T RIMETHOPRIM] Drug Allergy 04-23-20 13 Nausea And Vomiting, Dizziness [place] (14 sources) traMADol; Translations: [TRAMADOL] Drug Allergy 04-22-20 13 Other (See Comments) [place] (8 sources) Trimethoprim Drug Allergy 01-05-20 18 Vomiting [place] (13 sources) busPIRone; Translations: [BUSPIRONE] Drug Allergy 11-02-19 22 Abnormal Behavior [facility] (13 sources) Nalbuphine; Translations: [NALBUPHINE] Drug Allergy 03-13-20 17 Unknown Reaction [facility] (7 sources) OLANZapine; Translations: [olanzapine] Drug Allergy 11-02-19 22 Unknown Reaction [facility] (7 sources) Sulfamethoxazole; Translations: [sulfamethoxazole] Drug Allergy 11-02-19 22 Vomiting [facility] (1 source) busPIRone Drug Allergy 03-19-20 22 [facility] (1 source) hydrOXYzine Drug Allergy [facility] (2 sources) metroNIDAZOLE Drug Allergy 09-28-20 16 [facility] (2 sources) Nalbuphine Drug Allergy Unknown [facility] (3 sources) Sulfamethoxazole / Trimethoprim Drug Allergy 10-05-19 17 Unknown [facility] (1 source) traMADol Drug Allergy 10-05-19 17 [facility] (1 source) traMADol Drug Allergy Unknown [employer] Other (1 source) Flagil Propensity to adverse reactions Unknown [employer] Other (6 sources) hydrOXYzine; Translations: [HYDROXYZINE HCL] Drug Allergy 11-27-19 [facility] ([facility] diphenhydrAMINE; Translations: [DIPHENHYDRAMINE HCL] Drug Allergy 11-27-19 [facility] (1 source) diphenhydrAMINE Drug Allergy 01-18-20 [facility] (1 source) hydrOXYzine Drug Allergy 01-18-20 [facility] (1 source) metroNIDAZOLE Drug Allergy 01-18-20 [facility] (1 source) traMADol Drug Allergy 01-18-20 [facility] (1 source) Trimethoprim Drug Allergy 01-18-20 [facility] (1 source) vortioxetine Drug Allergy [facility] Repository Medications Current Medications Medication Drug Class(es) Dates Sig (Normalized) Sig (Original) ALPRAZolam 1 mg oral tablet (20 sources) Benzodiazepine Start: 08-24-2023 End: 10-11-2023 ALPRAZolam (XANAX) 1 mg tablet Take 1 tablet (1 mg total) by mouth. 0 11/16/2023 Active Start: 07-20-2021 End: 04-13-2023 take 1 mg by mouth twice daily Alprazolam Discontinued 1 MG PO Twice daily 14 7 March 23, 2022 11:51am April 13, 2023 10:24am Start: 03-09-2021 End: 07-20-2021 take 0.5 mg by mouth twice daily Alprazolam (Xanax) 1 mg Tablet Discontinued 0.5 MG PO Twice daily 0 March 09, 2021 11:19am July 20, 2021 9:59pm Start: 03-05-2021 End: 03-09-2021 take 1 tablet by mouth twice daily Alprazolam (Xanax) 1 mg Tablet Discontinued 1 MG PO Twice daily March 05, 2021 12:00am March 09, 2021 11:35am Start: 02-05-2020 End: 02-08-2020 Alprazolam Discontinued 1 MG PO Twice daily February 05, 2020 12:00am February 08, 2020 11:22am 1 in a.m., 1 in afternoon Start: 02-05-2020 End: 02-08-2020 take 2 mg by mouth once daily at bedtime Alprazolam Discontinued 2 MG PO Daily at bedtime February 05, 2020 12:00am February 08, 2020 11:22am Start: 12-05-2019 End: 02-05-2020 take 0.5 mg by mouth once daily Alprazolam Discontinue d 0.5 MG PO Daily December 05, 2019 1:00am February 05, 2020 5:35pm Start: 12-05-2019 End: 02-05-2020 take 1 mg by mouth at bedtime Alprazolam Discontinued 1 MG PO Bedtime December 05, 2019 1:00am February 05, 2020 5:35pm Start: 08-06-2019 End: 12-05-2019 take 1 tablet by mouth twice daily Alprazolam (Xanax) 1 mg Tablet Discontinued 1 MG PO Twice daily 0 August 10, 2019 11:01am December 05, 2019 3:07pm 0900,1400 Start: 08-06-2019 End: 12-05-2019 take 2 mg by mouth at bedtime Alprazolam Discontinued 2 MG PO Bedtime 0 August 10, 2019 11:01am December 05, 2019 3:07pm Start: 07-05-2019 End: 08-04-2019 take 1 tablet [...] MG PO Twice daily October 28, 2018 1:00am October 31, 2018 9:32am Start: 07-30-2018 End: 08-04-2018 take 1 mg by mouth twice daily Alprazolam Discontinued 1 MG PO Twice daily July 30, 2018 12:00am August 04, 2018 10:47am Start: 07-30-2018 End: 08-04-2018 take 0.5 mg by mouth once daily Alprazolam Discontinue d 0.5 MG PO Daily July 30, 2018 12:00am August 04, 2018 10:47am Start: 01-04-2018 End: 01-09-2018 take 0.25 mg by mouth twice daily Alprazolam Discontinued 0.25 MG PO Twice daily January 04, 2018 12:00am January 09, 2018 11:18am amitriptyline hydrochloride 10 mg oral tablet (1 source) Tricyclic Antidepressant take 1 tablet by mouth every twenty-four hours Amitriptyline HCl 10 MG 1 tablet at bedtime Orally Once a day Active 24 hr buPROPion hydrochloride 150 mg extended release oral tablet (20 sources) Aminoketone Start: 024 take 150 mg by mouth once daily Bupropion Hcl Active 150 MG PO Daily January 20, 2024 12:00am Start: 04-17-2023 End: 08-24-2023 Bupropion Hcl Discontinued 1 50 MG PO Daily April 17, 2023 12:00am August 24, 2023 1:19am Take with 300 mg tablet for total of 450 Start: 04-13-2023 End: 01-20-2024 take 300 mg by mouth once daily Bupropion Hcl Disconti nued 300 MG PO Daily April 23, 2023 12:00am October 11, 2023 12:26pm Start: 06-12-2022 End: 04-13-2023 take 1 tablet by mouth twice daily Bupropion Hcl (Wellbutrin Sr) 200 mg tablet sustained-release 12 hr Discontinued 200 MG PO Twice daily September 01, 2022 10:59am April 13, 2023 10:08am Start: 03-23-2022 End: 06-12-2022 take 150 mg by mouth twice daily Bupropion Hcl Discontinued 150 MG PO Twice daily 15 04March 23, 2022 12:00am June 12, 2022 12:52pm Start: 02-18-2022 End: 03-23-2022 take 150 mg by mouth twice daily in the morning Bupropion Hcl Discontinued 150 MG PO Twice daily February 18, 2022 4:18pm March 23, 2022 11:53am Take in the morning and the afternoon Start: 11-09-2021 End: 02-18-2022 take 100 mg by mouth twice daily in the morning Bupropion Hcl Discontinued 100 MG PO Twice daily November 09, 2021 1:00am February 18, 2022 4:18pm Take in the morning and the afternoon Start: 09-14-2017 End: 07-02-2019 take 300 mg by mouth once daily in the morning Bupropion Hcl Discontinued 300 MG PO Every morning January 09, 2018 12:00am July 30, 2018 9:12am End: 12-01-2023 take 2 tablets by mouth in the morning buPROPion (WELLBUTRIN) 100 mg tablet Take 2 tablets (200 mg total) by mouth in the morning. 0 12/01/2023 Discontinued (Therapy completed) doxepin hydrochloride 100 mg oral capsule (20 sources) Tricyclic Antidepressant Start: 08-24-2023 End: 01-20-2024 take 100 mg by mouth at bedtime Doxepin Active 100 MG PO Bedtime January 20, 2024 11:25am Start: 04-13-2023 End: 04-17-2023 take 25 mg by mouth at bedtime Doxepin Discontinued 25 MG PO Bedtime April 13, 2023 12:00am April 17, 2023 12:19pm Start: 06-12-2022 End: 08-29-2022 take 100 mg by mouth once daily at bedtime Doxepin Discontinued 100 MG PO Daily at bedtime June 12, 2022 12:00am August 29, 2022 5:48pm Start: 06-12-2022 End: 08-29-2022 take 25 mg by mouth twice daily Doxepin Discontinued 2 5 MG PO Twice daily June 12, 2022 12:00am August 29, 2022 5:48pm Start: 02-22-2022 End: 12-01-2023 take 25 mg by mouth once daily Doxepin Discontinued 25 MG PO Daily March 23, 2022 11:51am June 12, 2022 12:52pm lisdexamfetamine dimesylate 30 mg oral capsule (9 sources) Central Nervous System Stimulant Start: 10-13-2023 take 1 capsule by mouth once daily Lisdexamfetamine (Vyvanse) 30 mg capsule Active 30 MG PO Daily 04 08October 13, 2023 Start: 04-13-2023 End: 10-11-2023 take 1 capsule by mouth once daily Lisdexamfetamine (Vyvanse) 30 mg capsule Discontinued 30 MG PO Daily April 13, 2023 12:00am October 11, 2023 12:26pm Completed/Discontinued Medications Medication Drug Class(es) Dates Sig (Normalized) Sig (Original) amLODIPine 2.5 mg oral tablet (9 sources) Dihydropyridine Calcium Channel Rios Start: 04-13-2023 End: 01-18-2024 take 1 tablet by mouth once daily Amlodipine (Norvasc) 2.5 mg tablet Discontinued 2.5 MG PO Daily October 11, 2023 12:26pm January 18, 2024 4:16am ARIPiprazole 5 mg oral tablet (6 sources) Atypical Antipsychotic Start: 08-04-2018 End: 10-28-2018 take 5 mg by mouth once daily Aripiprazole Discontinued 5 MG PO Daily August 04, 2018 12:00am October 28, 2018 10:40am atorvastatin 40 mg oral tablet (6 sources) HMG-CoA Reductase Inhibitor Start: 08-29-2022 End: 10-10-2023 take 1 tablet by mouth at bedtime Atorvastatin (Lipitor) 40 mg tablet Discontinued 40 MG PO Bedtime August 29, 2022 1:00am October 10, 2023 11:49am End: 12-01-2023 take 1 tablet by mouth in the morning atorvastatin (LIPITOR) 20 mg tablet Take 1 tablet (20 mg total) by mouth in the morning. 0 12/01/2023 Discontinued (Therapy completed) cariprazine 3 mg oral capsule (4 sources) Atypical Antipsychotic Start: 04-13-2023 End: 04-17-2023 take 1 capsule by mouth once daily Cariprazine (Vraylar) 3 mg capsule Discontinued 3 MG PO Daily April 13, 2023 12:00am April 17, 2023 12:19pm chlordiazePOXIDE hydrochloride 10 mg oral capsule (7 sources) Benzodiazepine Start: 01-04-2018 End: 01-09-2018 take 10 mg by mouth once daily in the evening Chlordiazepoxide Hcl Discontinued 10 MG PO Every evening January 04, 2018 12:00am January 09, 2018 11:18am Librium 10 MG 1 capsule Orally AT NIGHT Not-Taking cholecalciferol 0.025 mg oral tablet (6 sources) Vitamin D Start: 11-30-2019 End: 02-05-2020 take 2000 [IU] by mouth once daily Cholecalciferol (Vitamin D3) Discontinued 2000 UNIT PO Daily 60 November 30, 2019 1:00am February 05, 2020 5:35pm clonazePAM 1 mg oral tablet (11 sources) Benzodiazepine Start: 04-13-2023 End: 12-01-2023 take 1 tablet by mouth three times daily Clonazepam (Klonopin) 1 mg tablet Discontinued 1 MG PO Three times daily April 13, 2023 12:00am August 24, 2023 1:19am Start: 08-29-2022 End: 08-29-2022 take 1 tablet by mouth twice daily Clonazepam (Klonopin) 1 mg tablet Discontinued 1 MG PO Twice daily August 29, 2022 1:00am August 29, 2022 5:48pm [facility] KlonoPIN 0.5 MG 1 tablet Orally Once a day Active Diclofenac (6 sources) Nonsteroidal Anti-inflammatory Drug Start: 11-30-2019 End: 02-05-2020 apply 2 g topically four times daily Diclofenac Sodium Discontinued 2 GM TOPICAL Four times daily November 30, 2019 12:00am February 05, 2020 4:35pm Start: 11-30-2019 End: 02-05-2020 apply 2 g topically four times daily Diclofenac Sodium Discontinued 2 GM TOPICAL Four times daily November 30, 2019 1:00am February 05, 2020 5:35pm docusate sodium 100 mg oral capsule (19 sources) Start: 09-01-2022 End: 10-10-2023 take 100 mg by mouth twice daily Docusate Sodium Discontinued 100 MG PO Twice daily 30 September 01, 2022 1:00am October 10, 2023 11:49am Start: 07-05-2019 take 1 capsule by [facility] once daily docusate (COLACE, DULCOLAX) 100 MG CAPS Take 100 mg by mouth nightly 30 capsule 0 07/05/2019 Active Start: 01-09-2018 End: 10-31-2018 take 100 mg by mouth twice daily Docusate Sodium Discontinued 100 MG PO Twice daily July 30, 2018 9:12am October 31, 2018 9:32am doxycycline hyclate 100 mg oral tablet (7 sources) Tetracycline-class Drug Start: 08-24-2023 End: 08-24-2023 take 75 mg by mouth twice daily Doxycycline Hyclate Discontinued 75 MG PO Twice daily August 24, 2023 1:17am August 24, 2023 1:23am Start: 05-01-2023 End: 08-24-2023 take 100 mg by mouth twice daily Doxycycline Hyclate Discontinued 100 MG PO Twice daily 8 May 01, 2023 12:00am August 24, 2023 1:17am DULoxetine 30 mg delayed release oral capsule (20 sources) Serotonin and Norepinephrine Reuptake Inhibitor Start: 07-24-2021 End: 06-12-2022 take 90 mg by mouth once daily Duloxetine Discontinued 90 MG PO Daily 21 7 Sandie 21st, 2022 11:51am June 12, 2022 12:52pm Start: 11-27-2019 End: 11-02-2021 take 60 mg by mouth once daily Duloxetine Discontinued 60 MG PO Daily July 24, 2021 9:18am November 02, 2021 8:48pm Start: 08-10-2019 End: 11-27-2019 take 90 mg by mouth once daily Duloxetine Discontinued 90 MG PO Daily August 10, 2019 1:00am November 27, 2019 5:33pm Start: 08-06-2019 End: 08-10-2019 take 60 mg by mouth once daily Duloxetine Discontinued 60 MG PO Daily August 06, 2019 1:00am August 10, 2019 11:01am Start: 07-06-2019 End: 02-18-2022 take 30 mg by mouth once daily Duloxetine Discontinued 30 MG PO DAILY@1700 30 November 09, 2021 1:00am February 18, 2022 4:18pm FLUoxetine 40 mg oral capsule (6 sources) Serotonin Reuptake Inhibitor Start: 07-30-2018 End: 10-31-2018 take 60 mg by mouth once daily Fluoxetine Discontinued 60 MG PO Daily July 30, 2018 12:00am October 31, 2018 9:32am gabapentin 300 mg oral capsule (20 sources) Anti-epileptic Agent Start: 04-13-2023 End: 08-24-2023 take 1 capsule by mouth twice daily Gabapentin (Neurontin) 300 mg capsule Discontinued 300 MG PO Twice daily April 13, 2023 12:00am August 24, 2023 1:19am Start: 08-29-2022 End: 04-13-2023 take 1 capsule by mouth three times daily Gabapentin (Neurontin) 400 mg capsule Discontinued 400 MG PO Three times daily September 01, 2022 10:59am April 13, 2023 10:08am Start: 06-06-2022 End: 08-29-2022 take 400 mg by mouth three times daily Gabapentin Discontinued 400 MG PO Three times daily June 06, 2022 7:51pm August 29, 2022 5:50pm Start: 07-20-2021 End: 06-06-2022 take 800 mg by mouth three times daily Gabapentin Discontinued 800 MG PO Three times daily 22 04March 23, 2022 11:51am June 06, 2022 7:52pm Start: 02-08-2020 End: 07-20-2021 take 400 mg by mouth three times daily Gabapentin Discontinued 400 MG PO Three times daily 90 February 08, 2020 12:00am July 20, 2021 10:00pm Start: 02-05-2020 End: 02-08-2020 take 300 mg by mouth three times daily Gabapentin Discontinued 300 MG PO Three times daily February 05, 2020 12:00am February 08, 2020 11:22am Start: 11-30-2019 End: 02-05-2020 take 400 mg by mouth three times daily Gabapentin Discontinued 400 MG PO Three times daily November 30, 2019 1:00am February 05, 2020 5:36pm Start: 11-27-2019 End: 11-30-2019 take 300 mg by mouth twice daily Gabapentin Discontinued 300 MG PO Twice daily November 27, 2019 1:00am November 30, 2019 12:08pm Start: 09-14-2017 End: 07-02-2019 take 1 capsule by mouth three times daily gabapentin (NEURONTIN) 400 MG capsule Take 1 capsule by mouth 3 times daily 90 capsule 0 09/14/2017 07/02/2019 Discontinued take 1 capsule by [facility] every twenty-four hours Gabapentin 100 MG 1 capsule Orally Once a day Active haloperidol 2 mg oral tablet (6 sources) Typical Antipsychotic Start: 03-09-2021 End: 07-20-2021 take 2 mg by mouth once daily at bedtime Haloperidol Discontinued 2 MG PO Daily at bedtime 14 March 09, 2021 12:00am July 20, 2021 10:07pm hydrOXYzine hydrochloride 25 mg oral tablet (1 source) Antihistamine Start: 09-14-2017 End: 07-02-2019 take 1 tablet by mouth twice daily as needed for anxiety hydrOXYzine (ATARAX) 25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 [place] [address] 00793 AST [Catalytic activity/Vol] 71 U/L High 0-41 [facility] Comment on above: Performed By: #### C BCA, CMP, 5643-2, THYR #### [facility] ([id number]) [address] [place] [address] 58463 Bilirubin [Mass/Vol] 1.1 mg/dL Normal 0.3-1.2 [facility] Comment on above: Performed By: #### C BCA, CMP, 5643-2, THYR #### [facility] ([id number]) [address] [place] [address] 53670 Calcium [Mass/Vol] 8.9 mg/dL Normal 8.5-10.5 [facility] Comment on above: Performed By: #### C BCA, CMP, 5643-2, THYR #### [facility] ([id number]) [address] [place] [address] 26564 Chloride [Moles/Vol] 105 mmol/L Normal 98-109 [facility] Comment on above: Performed By: #### C BCA, CMP, 5643-2, THYR #### [facility] ([id number]) [address] [place] [address] 76073 CO2 [Moles/Vol] 23 mmol/L Normal 22-32 [facility] Comment on above: Performed By: #### C VERONICA MOHAN, 5643-2, THYR #### [facility] ([id number]) [address] [place] [address] 35415 Creatinine [Mass/Vol] 0.81 mg/dL Normal 0.40-1.00 [facility] Comment on above: Result Comment: METH OD TRACEABLE TO IDMS STANDARD Performed By: #### C VERONICA MOHAN, 5643-2, THYR #### [facility] ([id number]) [address] [place] [address] 78036 GFR/1.73 sq M.predicted among non-blacks MDRD (S/P/Bld) [Vol rate/Area] 88 mL/min/{1.73_m2} Normal >59 [facility] Comment on above: Result Comment: Reported eGFR is based on the CKD-EPI 2020 equation that does not use a race coefficient. Performed By: #### C VERONICA MOHAN, 5643-2, THYR #### [facility] ([id number]) [address] [place] [address] 90784 Glucose [Mass/Vol] 82 mg/dL Normal 65-99 [facility] Comment on above: Performed By: #### C VERONICA MOHAN, 5643-2, THYR #### [facility] ([id number]) [address] [place] [address] 96753 Potassium [Moles/Vol] 3.7 mmol/L Normal 3.5-5.0 [facility] Comment on above: Performed By: #### C VERONICA MOHAN, 5643-2, THYR #### [facility] ([id number]) [address] [place] [address] 52983 Protein [Mass/Vol] 7.8 g/dL Normal 6.0-8.0 [facility] Comment on above: Performed By: #### C BCA, CMP, 5643-2, THYR #### [facility] ([id number]) [address] [place] [address] 54942 Sodium [Moles/Vol] 136 mmol/L Normal 134-146 [facility] Comment on above: Performed By: #### C BCA, CMP, 5643-2, THYR #### [facility] ([id number]) [address] [place] [address] 92532 Urea nitrogen [Mass/Vol] 13 mg/dL Normal 5-23 [facility] Comment on above: Performed By: #### C BCA, CMP, 5643-2, THYR #### [facility] ([id number]) [address] [place] [address] 68230 Cholesterol [Mass/volume] in Serum or PlasmaOrdered By: Olvin Rollins on 01-18-2024 Cholesterol [Mass/Vol] 165 mg/dL Normal 140-200 [facility] Comment on above: Chol less than 200 m g/dl low riskChol 201-239 mg/dl borderline riskChol 240 mg/dl and greater high risk Order Comment: FASTI NG Y Result Comment: Chol less than 200 mg/dl low risk Chol 201-239 mg/dl borderline risk Chol 240 mg/dl and greater high risk Performed By: #### T 4F, [id number], LIPID, TSH3 wRFLX #### [facility] [address] Cholesterol in LDL Calc [Mas s/Vol]Ordered By: Olvin Rollins on 01-18-2024 Cholesterol in LDL [Mass/Vol] 100 mg/dL 0-100 [facility] Comment on above: LDL ATP III CLASSIFI CATIONLDL less than 100 mg/dL OptimalLDL 100-129 mg/dL Near or above optimalLDL 130-159 mg/dL Borderline highLDL 160-189 mg/dL HighLDL greater than 189 mg/dL Very high Cholesterol in VLDL Calc [Ma ss/Vol]Ordered By: Olvin Rollins on 01-18-2024 Cholesterol in VLDL [Mass/Vol] 15 mg/dL [facility] DRUG SCREEN, URINEon 024 AMPHETAMINE/METHAMP Negative Normal NEG [facility] Comment on above: Result Comment: AMPH /METH screening cut off = 1000 ng/mL Performed By: #### D ESTRADA #### [facility] ([id number]) [address] [place] [address] 23850 BARBITURATES Negative Normal NEG [facility] Comment on above: Result Comment: Augustina iturates screening cut off value = 200 ng/mL Performed By: #### D ESTRADA #### [facility] ([id number]) [address] [place] [address] 70314 BENZODIAZEPINES Positive Abnormal NEG [facility] Comment on above: Result Comment: Conf irmation available upon request. Benzodiazepines screening cut off value = 200 ng/mL Performed By: #### D ESTRADA #### [facility] ([id number]) [address] [place] [address] 58527 CANNABINOIDS Positive Abnormal NEG [facility] Comment on above: Result Comment: Conf irmation available upon request. Cannabinoids/THC screening cut off value = 50 ng/mL Performed By: #### D ESTRADA #### [facility] ([id number]) [address] [place] [address] 95234 COCAINE METABOLITE Positive Abnormal NEG [facility] Comment on above: Result Comment: Conf irmation available upon request. Cocaine screening cut off value = 300 ng/mL Performed By: #### D ESTRADA #### [facility] ([id number]) [address] [place] [address] 16668 ECSTASY Negative Normal NEG [facility] Comment on above: Result Comment: Ecst asy screening cut off value = 500 ng/mL This report is intended for use in clinical monitoring or management of patients. Performed By: #### D ESTRADA #### [facility] ([id number]) [address] [place] [address] 27299 METHADONE Negative Normal NEG [facility] Comment on above: Result Comment: Meth adone screening cut off value = 300 ng/mL. Performed By: #### D ESTRADA #### [facility] ([id number]) [address] [place] [address] 79313 OPIATES Negative Normal NEG [facility] Comment on above: Result Comment: Opia caryn screening cut off value = 300 ng/mL NOTE: This test is used for the detection of codeine, hydrocodone (>1000 ng/mL), morphine and hydromorphone (>900 ng/mL) in urine. Performed By: #### D ESTRADA #### [facility] ([id number]) [address] [place] [address] 24515 OXYCODONE Negative Normal [facility] Comment on above: Result Comment: Oxyc odone screening cut off value = 300 ng/mL NOTE: This test is used for the detection of oxycodone and oxymorphone in urine. Performed By: #### D ESTRADA #### [facility] ([id number]) [address] [place] [address] 91034 PHENCYCLIDINE Negative Normal [facility] Comment on above: Result Comment: Phen cyclidine screening cut off value = 25 ng/mL Performed By: #### D ESTRADA #### [facility] ([id number]) [address] [place] [address] 79680 ECG 12 lead ECGon 01-18-2024 ECG 12 lead ECG [facility] Main [address] [address] Electrocardiograph Report Signed Patient: Loyda Scott MR#: [id number] : 1975 Acct:[id number] Age/Sex: 48 / F ADM Date: 01/18/24 Loc: Room: [address] [place] [address] Type: ADM IN Attending Dr: Olvin Rollins MD Ordering Provider: Olvin Rollins MD Date of Service: 01/18/24 ECG/ECG 12 lead ECG: antipsychotic therapy Copies to: Test Reason : Blood Pressure : / mmHG Vent. Rate : 086 BPM Atrial Rate : 086 BPM P-R Int : 112 ms QRS Dur : 078 ms QT Int : 382 ms P-R-T Axes : 021 067 055 degrees QTc Int : 457 ms Normal sinus rhythm Normal ECG When compared with ECG of 10-OCT-2023 09:21, premature ventricular complexes are no longer present Confirmed by José Miguel Sinha ([id number]) on 01/18/2024 11:23:48 AM Referred By: Electronically Signed By:José Miguel Sinha Transcribed By: MUS Signed By José Miguel Sinha MD 01/18/24 1123 Normal [facility] ETHANOLon 01-18-2024 Ethanol [Mass/Vol] mg/dL Normal 0.00-0.08 [facility] Comment on above: Result Comment: This report is intended for use in clinical monitoring or management of patients. Performed By: #### C BCA, CMP, 5643-2, THYR #### [facility] ([id number]) [address] [facility], [place] [address] Lipid Panelon 01-18-2024 LDL Cholesterol,Calculated 100 mg/dL Normal 0-100 [facility] Comment on above: Order Comment: SHARIF Nieves Result Comment: LDL ATP III CLASSIFICATION LDL less than 100 mg/dL Optimal LDL 100-129 mg/dL Near or above optimal LDL 130-159 mg/dL Borderline high LDL 160-189 mg/dL High LDL greater than 189 mg/dL Very high Performed By: #### T 4F, [id number], LIPID, TSH3 wRFLX #### [facility] [address] Triglyceride w/Reflex 78 mg/dL Normal 0-149 [facility] Comment on above: Order Comment: SHARIF Nieves Result Comment: TRIG ATP III CLASSIFICATION TRIG less than 150 mg/dL Normal TRIG 150-199 mg/dL Borderline high TRIG 200-500 mg/dL High TRIG greater than 500 mg/dL Very high Standard traceable to the Center for Disease Conrtrol and Prevention (CDC) test method. Performed By: #### T 4F, [id number], LIPID, TSH3 wRFLX #### [facility] [address] VLDL CHOLESTEROL 15 mg/dL Normal [facility] Comment on above: Order Comment: FASTI NG Y Performed By: #### T 4F, [id number], LIPID, TSH3 wRFLX #### [facility] [address] Serum or plasma high density lipoprotein (HDL) cholesterol measurementOrdered By: Olvin Rollins on 01-18-2024 Cholesterol in HDL [Mass/Vol] 49 mg/dL Normal 23-92 [facility] Comment on above: HDL CHOL ATP-III CLA SSIFICATION Cardiovascular RiskHDL > or equal to 60 mg/dL LOWHDL < 40 mg/dL HIGH Order Comment: FASTI NG Y Result Comment: HDL CHOL ATP-III CLASSIFICATION Cardiovascular Risk HDL > or equal to 60 mg/dL LOW HDL < 40 mg/dL HIGH Performed By: #### T 4F, [id number], LIPID, TSH3 wRFLX #### [address] Serum or plasma total choles terol/high density lipoprotein (HDL) cholesterol mass ratOrdered By: Olvin Rollins on 01-18-2024 Cholesterol.total/Rachel sterol in HDL [Mass ratio] 3.4 {ratio} Normal <5.0 [facility] Comment on above: Order Comment: FASTI NG Y Performed By: #### T 4F, [id number], LIPID, TSH3 wRFLX #### [facility] [address] THYROID PROFILEon 01-18-2024 Free T4 [Mass/Vol] 1.02 ng/dL Normal 0.61-1.60 [facility] Comment on above: Performed By: #### C BCA, CMP, 5643-2, THYR #### [facility] ([id number]) [address] [facility], [place] [address] TSH 7.73 uIU/mL High 0.49-4.67 [facility] Comment on above: Performed By: #### C BCA, CMP, 5643-2, THYR #### [facility] ([id number]) [address] [facility], [place] [address] Thyroid Stim Hormone w/Rflxo n 01-18-2024 Thyroid Stim Hormone w/Rflx 5.89 u[iU]/mL High 0.45-5.33 [facility] Comment on above: Order Comment: FASTI NG Y Performed By: #### T 4F, [id number], LIPID, TSH3 wRFLX #### [place] [id number] [facility] Thyrotropin [Units/volume] i n Serum or PlasmaOrdered By: Olvin Rollins on 01-18-2024 TSH Qn 5.89 m[IU]/L 0.45-5.33 [facility] Thyroxine (T4) free [Mass/vo lume] in Serum or PlasmaOrdered By: Olvin Rollins on 01-18-2024 Free T4 [Mass/Vol] 0.96 ng/dL Normal 0.61-1.12 [facility] Comment on above: Order Comment: FASTI NG Y Performed By: #### T 4F, [id number], LIPID, TSH3 wRFLX #### [facility] [address] [place] [id number] [facility] Triglyceride [Mass/volume] i n Serum or PlasmaOrdered By: Olvin Rollins on 01-18-2024 Triglyceride [Mass/Vol] 78 mg/dL 0-149 [facility] Comment on above: TRIG ATP III CLASSIF ICATIONTRIG less than 150 mg/dL NormalTRIG 150-199 mg/dL Borderline highTRIG 200-500 mg/dL High TRIG greater than 500 mg/dL Very highStandard traceable to the Center for Disease Conrtrol and Prevention (CDC) test method. GABRIELLA Russell 2023 BILIRUBIN LESLYE Small Abnormal NEG [facility] Comment on above: Performed By: #### N UM #### [facility] ([id number]) [address] [place] [address] 31516 BLOOD/HGB LESLYE Trace Abnormal NEG [facility] Comment on above: Performed By: #### N UM #### [facility] ([id number]) [address] [place] [address] 71370 GLUCOSE LESLYE Negative Normal NEG [facility] Comment on above: Performed By: #### N UM #### [facility] ([id number]) [address] [place] [address] 76185 KETONES LESLYE 40 mg/dL Abnormal NEG [facility] Comment on above: Performed By: #### N UM #### [facility] ([id number]) [address] [place] [address] [place] [address] LEUKOCYTE ESTERASE LESLYE Small Abnormal NEG [facility] Comment on above: Performed By: #### N UM #### [facility] ([id number]) [address] [place] [address] 49144 NITRITE LESLYE Negative Normal NEG [facility] Comment on above: Performed By: #### N UM #### [facility] ([id number]) [address] [place] [address] 47644 PH LESLYE 5.5 Normal 5.0-8.5 [facility] Comment on above: Performed By: #### N UM #### [facility] ([id number]) [address] [place] [address] 61184 PROTEIN LESLYE Negative Normal NEG [facility] Comment on above: Performed By: #### N UM #### [facility] ([id number]) [address] [place] [address] [place] [address] SPECIFIC GRAVITY LESLYE >=1.030 Normal 1.003-1.[address] [facility] Comment on above: Performed By: #### N UM #### [facility] ([id number]) [address] [facility], [place] [address] UROBILINOGEN LESLYE 0.2 eu/dL Normal <1.[address] [facility] Comment on above: Performed By: #### N UM #### [facility] ([id number]) [address] [place] [address], [place] [address] Vitamin D 25 Hydroxy Totalon 01-18-2024 Vitamin D 25 Hydroxy Total 37.9 ng/mL Normal 30-100 [facility] Comment on above: Order Comment: FASTI NG Y Result Comment: MARINA MIN D STATUS 25(OH)VITAMIN D RANGE (ng/mL) Deficient <20 Insufficient 20 to <30 Sufficient 30 to 100 Reference: Jhony Fu, Janina LAYTON, et al. Evaluation,treatment, and prevention of vitamin D deficiency; an Endocrine Society clinical practice guideline. JCEM. 2010; 96(7):1911-30. PERFORMED BY: [place] [address] PATHOLOGIST [employer]TER TODD PICKARD M.D. Performed By: #### T 4F, [id number], LIPID, TSH3 wRFLX #### [facility] [address] Vitamin D+Metabolites [Mass/ volume] in Serum or PlasmaOrdered By: Olvin Rollins on 01-18-2024 Vitamin D+Metabolites [Mass/Vol] 37.9 ng/mL 30-100 [facility] Comment on above: VITAMIN D STATUS 25( [place])VITAMIN D RANGE (ng/mL) Deficient <20 Insufficient 20 to <30Sufficient 30 to 100Reference: Jhony Fu, Janina LAYTON, et al. Evaluation,treatment, and prevention of vitamin D deficiency; an Endocrine Society clinical practice guideline. JCEM. 2010; 96(7):1911-30. C-reactive proteinon 024 CRP [Mass/Vol] 0.8 mg/dL High 0.000 - 0.744 mg/dL [facility] CBC AND AUTO DIFFon 12-02-19 24 ABSOLUTE BASOPHIL 0.1 X10E9/L Normal 0.0-0.2 [facility] Comment on above: Performed By: #### C BCA, 65050-2, CMP, 74022-5, 1988-02, FEPR, TSHR, 2283-8, 2131-9, 33752-3, 2243-4 #### [facility] ([id number]) [address], [address] [place] [address] ABSOLUTE NEUTROPHIL 5.9 X10E9/L Normal 1.5-6.6 [facility] Comment on above: Performed By: #### C BCA, 12915-0, CMP, , 1988-02, FEPR, TSHR, 2283-8, 2131-9, 70640-2, 2243-4 #### [facility] ([id number]) [address] [facility], [address] [place] [address] Basophils/100 WBC (Bld) 0.7 % Normal P [facility] Comment on above: Performed By: #### C BCA, 39778-9, CMP, , 1988-02, FEPR, TSHR, 2283-8, 2131-9, 59807-7, 2243-4 #### [facility] ([id number]) [address], [address] [place] [address] Eosinophils (Bld) [#/Vol] 0.0 10*3/uL Normal 0.0-0.4 [facility] Comment on above: Performed By: #### C BCA, 01874-0, CMP, , 1988-02, FEPR, TSHR, 2284-8, 2132-9, 49087-2, 2243-4 #### [facility] ([id number]) [address], [address] [place] [address] Eosinophils/100 WBC (Bld) 0.6 % Normal [facility] Comment on above: Performed By: #### C KIMBERLEE, 89911-1, CMP, , 1988-02, FEPR, TSHR, 2284-05, 2132-06, 05941-9, 2243-4 #### [facility] ([id number]) [address], [facility] [address] [place] [address] Erythrocyte distribution width (RBC) [Ratio] 12.8 % Normal 11.5-15.0 [facility] Comment on above: Performed By: #### C KIMBERLEE, 68208-3, CMP, , 1988-02, FEPR, TSHR, 2284-05, 2132-06, 82478-9, 2242-4 #### [facility] ([id number]) [address], [address] [place] [address] Hematocrit (Bld) [Volume fraction] 39.7 % Normal 35-47 [facility] Comment on above: Performed By: #### C KIMBERLEE, 01685-0, CMP, , 1988-02, FEPR, TSHR, 2284-05, 2132-06, 53724-2, 2243-4 #### [facility] ([id number]) [address], [facility] [address] [place] [address] Hemoglobin (Bld) [Mass/Vol] 13.5 g/dL Normal 11.7-15.5 [facility] Comment on above: Performed By: #### C BCA, 18857-9, CMP, 91119-7, 1988-02, FEPR, TSHR, 2284-05, 2132-06, 27505-1, 2243-4 #### [facility] ([id number]) [address] [address] [place] [address] Lymphocytes (Bld) [#/Vol] 0.9 10*3/uL Low 1.0-3.5 [facility] Comment on above: Performed By: #### C BCA, 60226-9, CMP, , 1988-02, FEPR, TSHR, 2284-05, 2132-06, 49499-4, 224-4 #### [facility] ([id number]) [address], [address] [place] [address] Lymphocytes/100 WBC (Bld) 12.8 % Normal [facility] Comment on above: Performed By: #### C BCA, 72321-4, CMP, , 1988-02, FEPR, TSHR, 2284-05, 2132-06, 56520-4, 2242-4 #### [facility] ([id number]) [address], [address] [place] [address] MCH (RBC) [Entitic mass] 32.6 pg Normal 27-34 [facility] Comment on above: Performed By: #### C BCA, 35626-1, CMP, , 1988-02, FEPR, TSHR, 2284-05, 2132-06, 81796-0, 2242- #### [facility] ([id number]) [address], [address] [place] [address] MCHC (RBC) [Mass/Vol] 34.0 g/dL Normal 32-36 [facility] Comment on above: Performed By: #### C BCA, 41081-7, CMP, , 1988-02, FEPR, TSHR, 2284-05, 2132-06, 18879-3, 224-4 #### [facility] ([id number]) [address], [address] [place] [address] MCV (RBC) [Entitic vol] 96 fL Normal 80-100 P [facility] Comment on above: Performed By: #### C BCA, 23741-8, CMP, , 1988-02, FEPR, TSHR, 2284-05, 2132-06, 60592-4, 224-4 #### [facility] ([id number]) [address], [address] [place] [address] Monocytes (Bld) [#/Vol] 0.5 10*3/uL Normal 0-0.9 [facility] Comment on above: Performed By: #### C BCA, 08476-9, CMP, 66834-1, 1988-02, FEPR, TSHR, 2284-05, 2132-06, 97656-3, 224-4 #### [facility] ([id number]) [address], [address] [place] [address] Monocytes/100 WBC (Bld) 6.2 % Normal [facility] Comment on above: Performed By: #### C BCA, 96403-6, CMP, , 1988-02, FEPR, TSHR, 2284-05, 2132-06, 32322-4, 2242- #### [facility] ([id number]) [address], [address] [place] [address] Neutrophils/100 WBC (Bld) 79.7 % Normal [facility] Comment on above: Performed By: #### C BCA, 40957-4, CMP, , 1988-02, FEPR, TSHR, 2284-05, 2132-06, 96501-1, 2242- #### [facility] ([id number]) [address], [address] [place] [address] Platelet mean volume (Bld) [Entitic vol] 9.6 fL Normal 7-12 [facility] Comment on above: Performed By: #### C BCA, 20826-7, CMP, , 1988-02, FEPR, TSHR, 2284-05, 2132-06, 14556-2, 2242- #### [facility] ([id number]) [address], [address] [place] [address] Platelets (Bld) [#/Vol] 249 10*3/uL Normal 150-450 [facility] Comment on above: Performed By: #### C KIMBERLEE, 01075-1, CMP, 35398-9, 1988-02, FEPR, TSHR, 4-8, 2-9, 11623-1, 2243-4 #### [facility] ([id number]) [address], [address] [place] [address] RBC COUNT 4.13 X10E12/L Normal 3.80-5.20 [facility] Comment on above: Performed By: #### C KIMBERLEE, 26368-8, CMP, 03490-0, 1988-02, FEPR, TSHR, 2283-8, 9, 63945-0, 2243-4 #### [facility] ([id number]) [address], [address] [place] [address] WBC (Bld) [#/Vol] 7.3 10*3/uL Normal 4.0-11.0 [facility] Comment on above: Performed By: #### C KIMBERLEE, 45858-7, CMP, 56121-0, 1988-02, FEPR, TSHR, 2283-8, 2131-9, 57562-6, 2243-4 #### [facility] ([id number]) [address], [address] [place] [address] CBC auto differentialon 03-0 -2023 Basophils (Bld) [#/Vol] 0.1 10*3/uL [facility] Bas[facility]/100 WBC (Bld) 0.7 % [facility] Eosinophils (Bld) [#/Vol] 0.0 10*3/uL [facility] Eosin[facility]/100 WBC (Bld) 0.6 % [facility] Erythrocyte distribution width (RBC) [Ratio] 12.8 % 11.5 - 15.0 % [facility] Hematocrit (Bld) [Volume fraction] 39.7 % 35 - 47 % [facility] Hemoglobin (Bld) [Mass/Vol] 13.5 g/dL 11.7 - 15.5 g/dL [facility] Interpretation and review of laboratory results Abnormal [facility] Lymphocytes (Bld) [#/Vol] 0.9 10*3/uL Low [facility] Lymphocytes/100 WBC (Bld) 12.8 % [facility] MCH (RBC) [Entitic mass] 32.6 pg 27 - 34 pg [facility] MCHC (RBC) [Mass/Vol] 34.0 g/dL 32 - 36 g/dL P [facility] MCV (RBC) [Entitic vol] 96 fL 80 - 100 fL [facility] Monocytes (Bld) [#/Vol] 0.5 10*3/uL [facility] Monocytes/100 WBC (Bld) 6.2 % P [facility] Neutrophils (Bld) [#/Vol] 5.9 10*3/uL [facility] Neutrophils/100 WBC (Bld) 79.7 % [facility] Platelet mean volume (Bld) [Entitic vol] 9.6 fL 7 - 12 fL [facility] Platelets (Bld) [#/Vol] 249 10*3/uL [facility] RBC (Bld) [#/Vol] 4.13 10*6/uL [facility] WBC corrected for nucl RBC Auto (Bld) [#/Vol] 7.3 [facility] COMPREHENSIVE METABOLIC PANE Jose 12-02-2023 Albumin [Mass/Vol] 4.4 g/dL Normal 3.2-5.3 [facility] Comment on above: Performed By: #### C BCA, 91088-9, CMP, 08500-3, 1987-, FEPR, TSHR, 2284-8, 2132-9, 43127-9, 2243-4 #### [facility] ([id number]) [address], [address] [place] [address] ALP [Catalytic activity/Vol] 63 U/L Normal 39-130 [facility] Comment on above: Performed By: #### C BCA, 36201-2, CMP, 01542-6, 1988-02, FEPR, TSHR, 2284-8, 2131-9, 57599-3, 2243-4 #### [facility] ([id number]) [address], [address] [place] [address] ALT [Catalytic activity/Vol] 74 U/L High 0-31 [facility] Comment on above: Performed By: #### C BCA, 88723-1, CMP, , 1988-02, FEPR, TSHR, 2283-8, 2131-9, 58257-2, 2243-4 #### [facility] ([id number]) [address], [address] [place] [address] Anion gap [Moles/Vol] 16 mmol/L High 5-15 [facility] Comment on above: Performed By: #### C BCA, 73977-8, CMP, , 1988-02, FEPR, TSHR, 2283-8, 2131-9, 19110-1, 2243-4 #### [facility] ([id number]) [address], [address] [place] [address] AST [Catalytic activity/Vol] 87 U/L High 0-41 [facility] Comment on above: Performed By: #### C BCA, 86134-2, CMP, , 1988-02, FEPR, TSHR, 2283-, 2131-9, 25937-2, 2243-4 #### [facility] ([id number]) [address], [address] [place] [address] Bilirubin [Mass/Vol] 0.4 mg/dL Normal 0.3-1.2 [facility] Comment on above: Performed By: #### C BCA, 28551-4, CMP, 69880-8, 1988-02, FEPR, TSHR, 2283-8, 2131-9, 80250-8, 2243-4 #### [facility] ([id number]) [address], [address] [place] [address] Calcium [Mass/Vol] 9.4 mg/dL Normal 8.5-10.5 [facility] Comment on above: Performed By: #### C BCA, 24291-4, CMP, 43152-6, 1988-02, FEPR, TSHR, 8, 9, 83609-2, 2243-4 #### [facility] ([id number]) [address], [address] [place] [address] Chloride [Moles/Vol] 102 mmol/L Normal 98-109 [facility] Comment on above: Performed By: #### C BCA, 83138-2, CMP, , 1988-02, FEPR, TSHR, 2284-05, 2132-06, 99105-3, 224-4 #### [facility] ([id number]) [address], [address] [place] [address] CO2 [Moles/Vol] 25 mmol/L Normal 22-32 [facility] Comment on above: Performed By: #### C BCA, 17787-7, CMP, , 1988-02, FEPR, TSHR, 2284-05, 9, 77930-5, 2243-4 #### [facility] ([id number]) [address], [address] [place] [address] Creatinine [Mass/Vol] 0.89 mg/dL Normal 0.40-1.00 [facility] Comment on above: Result Comment: METH OD TRACEABLE TO IDMS STANDARD Performed By: #### C BCA, 06255-3, CMP, , 1988-02, FEPR, TSHR, 2283-, 9, 70096-7, 2243-4 #### [facility] ([id number]) [address], [address] [place] [address] GFR/1.73 sq M.predicted among non-blacks MDRD (S/P/Bld) [Vol rate/Area] 79 mL/min/{1.73_m2} Normal >59 [facility] Comment on above: Result Comment: Reported eGFR is based on the CKD-EPI 2020 equation that does not use a race coefficient. Performed By: #### C BCA, 08463-0, CMP, 41127-4, 1988-02, FEPR, TSHR, 2284-05, 2132-06, 12226-6, 2243-4 #### [facility] ([id number]) [address], [address] [place] [address] Glucose [Mass/Vol] 68 mg/dL Normal 65-99 [facility] Comment on above: Performed By: #### C BCA, 13099-3, CMP, , 1988-02, FEPR, TSHR, 2284-05, 2132-06, 22653-2, 2243-4 #### [facility] ([id number]) [address], [address] [place] [address] Potassium [Moles/Vol] 4.2 mmol/L Normal 3.5-5.0 [facility] Comment on above: Performed By: #### C BCA, 79960-8, CMP, , 1988-02, FEPR, TSHR, 2284-05, 2132-06, 48767-7, 2243-4 #### [facility] ([id number]) [address], [address] [place] [address] Protein [Mass/Vol] 7.6 g/dL Normal 6.0-8.0 [facility] Comment on above: Performed By: #### C BCA, 31596-7, CMP, , 1988-02, FEPR, TSHR, 8, 9, 66876-2, 2243-4 #### [facility] ([id number]) [address], [address] [place] [address] Sodium [Moles/Vol] 143 mmol/L Normal 134-146 [facility] Comment on above: Performed By: #### C BCA, 10127-6, CMP, 94003-5, 1988-02, FEPR, TSHR, 2283-8, 9, 00123-5, 2243-4 #### [facility] ([id number]) [address], [address] [place] [address] Urea nitrogen [Mass/Vol] 7 mg/dL Normal 5-23 [facility] Comment on above: Performed By: #### C BCA, 40664-2, CMP, 11689-9, 1988-02, FEPR, TSHR, 2284-05, 2132-06, 61272-6, 2243-4 #### [facility] ([id number]) [address], [address] [place] [address] CRP [Mass/Vol]on 12-02-2023 C REACTIVE PROTEIN 0.8 mg/dL High 0.000-0.744 [facility] Comment on above: Performed By: #### C BCA, 57100-3, CMP, 02845-3, 1988-02, FEPR, TSHR, 2284-05, 2132-06, 12275-2, 2243-4 #### [facility] ([id number]) [address], [address] [place] [address] Cobalamin (Vitamin B12) [Mas s/Vol]on 12-02-2023 Interpretation and review of laboratory results Abnormal [facility] Comprehensive metabolic pane jose 12-02-2023 Albumin [Mass/Vol] 4.4 g/dL 3.2 - 5.3 g/dL [facility] ALP [Catalytic activity/Vol] 63 U/L 39 - 130 U/L [facility] ALT No additional P-5'-P [Catalytic activity/Vol] 74 U/L High 0 - 31 U/L [facility] Anion gap [Moles/Vol] 16 mmol/L High 5 - 15 mmol/L [facility] AST [Catalytic activity/Vol] 87 U/L High 0 - 41 U/L [facility] Bilirubin [Mass/Vol] 0.4 mg/dL 0.3 - 1 .2 mg/dL [facility] Calcium [Mass/Vol] 9.4 mg/dL 8.5 - 10. 5 mg/dL [facility] Chloride [Moles/Vol] 102 mmol/L 98 - 10 9 mmol/L [facility] CO2 [Moles/Vol] 25 mmol/L 22 - 32 mmol/L [facility] Creatinine [Mass/Vol] 0.89 mg/dL 0.40 - 1.00 mg/dL [facility] Comment on above: METHOD TRACEABLE TO [facility] STANDARD eGFR (CKD-EPI)non-race dependent 79 - PINF [facility] Comment on above: Reported eGFR is based on the CKD-EPI 2020 equation that does not use a race coefficient. Glucose [Mass/Vol] 68 mg/dL 65 - 99 mg/dL [facility] Potassium [Moles/Vol] 4.2 mmol/L 3.5 - 5.0 mmol/L [facility] Protein [Mass/Vol] 7.6 g/dL 6.0 - 8.0 g/dL [facility] Sodium [Moles/Vol] 143 mmol/L 134 - 146 mmol/L [facility] Urea nitrogen [Mass/Vol] 7 mg/dL 5 - 23 mg/dL [facility] E2 [Mass/Vol]on 12-02-2023 [facility] ESTRADIOL 16.6 pg/mL Normal [facility] Comment on above: Result Comment: NON- FEMALES Mid follicular: 25-115 pg/mL Ovulatory Peak: 32.1-517 pg/mL Mid Luteal: 36.5-246 pg/mL Post-Menopausal Females: <15.0-25.1 pg/mL (Not on hormone therapy) The Access Sensitive Estradiol assay results are not intended to be used to measure the effectiveness of exogeneous Estradiol supplementation, for example, when the patient is on hormone replacement therapy. The presence of estradiol drug analogues and their metabolites could have an impact on estradiol recovery when using this assay. Performed By: #### C KIMBERLEE, 40143-6, [facility], 60608-9, 1988-02, FEPR, TSHR, 2284-8, 2131-9, 71759-4, 2243-4 #### [facility] ([id number]) [address], [address] [place] [address] ESR Photometric method (Bld) [Velocity]on 12-02-2023 [facility] ESR, ERYTHROCYTE SEDIMENTATION RATE 29 mm/h Normal 0-30 [facility] Comment on above: Performed By: #### C KIMBERLEE, 02931-8, [facility], 88963-3, 1988-02, FEPR, TSHR, 2284-8, 2-9, 69004-2, 2243-4 #### [facility] ([id number]) [address], [address] [place] [address] Erythrocyte Sedimentation Ra te (ESR)on 12-02-2023 ESR Photometric method (Bld) [Velocity] 29 mm/h 0 - 30 mm/h [facility] Estradiolon 12-02-2023 E2 [Mass/Vol] 16.6 pg/mL [facility] Comment on above: NON- FEMALES Mid follicular: 25-115 pg/mL Ovulatory Peak: 32.1-517 pg/mL Mid Luteal: 36.5-246 pg/mL Post-Menopausal Females: <15.0-25.1 pg/mL (Not on hormone therapy) The Access Sensitive Estradiol assay results are not intended to be used to measure the effectiveness of exogeneous Estradiol supplementation, for example, when the patient is on hormone replacement therapy. The presence of estradiol drug analogues and their metabolites could have an impact on estradiol recovery when using this assay. Folateon 12-02-2023 Folate [Mass/Vol] ng/mL 5.8 - PINF ng/mL [facility] Comment on above: NEW REFERENCE RANGE Folate [Mass/Vol]on 12-02-19 [facility] FOLIC ACID >25.0 Normal >5.8 [facility] Comment on above: Result Comment: NEW REFERENCE RANGE Performed By: #### C KIMBERLEE, 53509-4, CMP, 28427-9, 1988-02, FEPR, TSHR, 2284-8, 2132-9, 60599-2, 2243-4 #### [facility] ([id number]) [address], [address] [place] [address] HGB A1C (GLYCO-HGB)on 2023 Glucose [Mass/Vol] 108 mg/dL Normal [facility] Comment on above: Performed By: #### C KIMBERLEE, 69391-6, CMP, 73389-8, 1988-02, FEPR, TSHR, 2284-8, 2131-9, 00999-4, 2243-4 #### [facility] ([id number]) [address], [address] [place] [address] HbA1c (Bld) [Mass fraction] 5.4 % Normal 4.4-5.6 [facility] Comment on above: Result Comment: NOTE ADA Guidelines Result HgbA1c Normal : less than 5.7 % Prediabetes : 5.7 % to 6.4 % Diabetes : > 6.4 % Use with caution in patients with abnormal hemoglobin variants as the half-life of red blood cells and in vivo glycation rates are affected. Performed By: #### C KIMBERLEE, 81100-5, CMP, 77569-1, 1988-02, FEPR, TSHR, 2283-8, 2132-06, 43316-0, 2243-4 #### [facility] ([id number]) [address], [address] [place] [address] Hemoglobin A1con 12-02-2023 Average glucose Estimated from glycated hemoglobin (Bld) [Mass/Vol] 108 mg/dL [facility] HbA1c (Bld) [Mass fraction] 5.4 % 4.4 - 5.6 % [facility] Comment on above: NOTE ADA Guidelines Result HgbA1c Normal : less than 5.7 % Prediabetes : 5.7 % to 6.4 % Diabetes : > 6.4 % Use with caution in patients with abnormal hemoglobin variants as the half-life of red blood cells and in vivo glycation rates are affected. [facility] IRON PROFILEon 12-02-2023 Iron [Mass/Vol] 53 ug/dL Normal 50-170 [facility] Comment on above: Performed By: #### C KIMBERLEE, 44745-8, CMP, , 1988-02, FEPR, TSHR, 2284-05, 2132-06, 22836-8, 2243-4 #### [facility] ([id number]) [address], [address] [place] [address] IRON BINDING 399 ug/dL Normal 250-425 [facility] Comment on above: Performed By: #### C KIMBERLEE, 90192-8, CMP, , 1988-02, FEPR, TSHR, 2283-, 2132-06, 39157-2, 2243-4 #### [facility] ([id number]) [address], [address] [place] [address] IRON SATURATION 13 % SATURATION Low 15-50 [facility] Comment on above: Performed By: #### C BCA, 05293-4, CMP, , 1988-02, FEPR, TSHR, 2284-8, 2132-9, 18761-4, 2243-4 #### [facility] ([id number]) [address], [address] [place] [address] Iron and TIBCon 12-02-2023 Interpretation and review of laboratory results Abnormal [facility] [employer] Iron [Mass/Vol] 53 ug/dL 50 - 170 ug/dL [facility] [employer] [facility] Iron binding capacity [Mass/Vol] 399 ug/dL 250 - 425 ug/dL [facility] [employer] Iron saturation [Mass fraction] 13 Low [facility] Lipid 1996 panelon Cholesterol [Mass/Vol] 174 mg/dL 150 - 200 mg/dL [facility] [employer] Cholesterol in HDL [Mass/Vol] 55 mg/dL 39 - PINF mg/dL [facility] [employer] Comment on above: HDL <40 mg/dL - High Risk HDL > or = 40mg/dL- Desirable HDL >60 mg/dL - Negative Risk Cholesterol in LDL [Mass/Vol] 106 mg/dL NINF - 130 mg/dL [facility] [employer] Comment on above: LDL <100 mg/dL - Desirable LDL >160 mg/dL - High Risk Cholesterol in VLDL [Mass/Vol] 13 mg/dL 0 - 30 mg/dL [facility] [employer] Cholesterol.total/Rachel sterol in HDL [Mass ratio] 3.2 {ratio} 1.0 - 5.0 [facility] [employer] Triglyceride [Mass/Vol] 64 mg/dL 27 - 150 mg/dL [facility] [employer] Cholesterol [Mass/Vol] 174 mg/dL Normal 150-200 [facility] Comment on above: Performed By: #### C BCA, 31073-0, CMP, , 1988-02, FEPR, TSHR, 2284-05, 2132-06, 44016-9, 2243-4 #### [facility] ([id number]) [address], [address] [place] [address] Cholesterol in HDL [Mass/Vol] 55 mg/dL Normal >39 [facility] Comment on above: Result Comment: HDL <40 mg/dL - High Risk HDL > or = 40mg/dL- Desirable HDL >60 mg/dL - Negative Risk Performed By: #### Ulises MOHAN, 31003-9, CMP, , 1988-02, FEPR, TSHR, 2284-05, 2132-06, 96097-3, 2243-4 #### [facility] ([id number]) [address], [address] [place] [address] Cholesterol in LDL [Mass/Vol] 106 mg/dL Normal <130 [facility] Comment on above: Result Comment: LDL <100 mg/dL - Desirable LDL >160 mg/dL - High Risk Performed By: #### C KIMBERLEE, 98193-3, CMP, , 1988-02, FEPR, TSHR, 2284-05, 2132-06, 68375-9, 2243-4 #### [facility] ([id number]) [address], [address] [place] [address] Cholesterol in VLDL [Mass/Vol] 13 mg/dL Normal 0-30 [facility] Comment on above: Performed By: #### Ulises BCA, 63634-7, CMP, , 1988-02, FEPR, TSHR, 2284-05, 2132-06, 39752-3, 2243-4 #### [facility] ([id number]) [address], [address] [place] [address] CHOLESTEROL:HDL 3.2 Normal 1.0-5.0 [facility] Comment on above: Performed By: #### C BCA, 02941-9, CMP, 29054-6, 1988-02, FEPR, TSHR, 2283-, 9, 68103-8, 2242- #### [facility] ([id number]) [address], [address] [place] [address] Triglyceride [Mass/Vol] 64 mg/dL Normal 27-150 P [facility] Comment on above: Performed By: #### C BCA, 35320-5, CMP, , 1988-02, FEPR, TSHR, 2283-, 2132-06, 86996-9, 2243-01 #### [facility] ([id number]) [address], [address] [place] [address] No Panel Informationon 12-01 [facility] Interpretation and review of laboratory results Abnormal [facility] TSH WITH REFLEXon 12-02-2023 TSH 0.95 uIU/mL Normal 0.49-4.67 [facility] Comment on above: Performed By: #### C BCA, 00821-2, CMP, , 1988-02, FEPR, TSHR, 2283-, 9, 79972-4, 2243-01 #### [facility] ([id number]) [address], [address] [place] [address] TSH with Reflexon 12-02-2023 TSH Qn 0.95 m[IU]/L [facility] VITAMIN B12on 12-02-2023 Cobalamin (Vitamin B12) [Mass/Vol] 1413 pg/mL High 180-914 [facility] Comment on above: Performed By: #### C BCA, 03026-3, CMP, 18700-4, 1988-02, FEPR, TSHR, 2283-8, 2132-06, 51697-9, 3-4 #### [facility] ([id number]) [address], [address] [place] [address] Vitamin B12on 12-02-2023 Cobalamin (Vitamin B12) [Mass/Vol] 1413 pg/mL High 180 - 914 pg/mL [facility] Vitamin D 25 hydroxyon 12-01 Vitamin D+Metabolites [Mass/Vol] 40.4 ng/mL 30 - 100 ng/mL [facility] Comment on above: Vitamin D status 25 [place] Vitamin D Deficiency <20 ng/mL Insufficiency 20-29 ng/mL Sufficiency 30-100 ng/mL Toxicity >100 ng/mL NOTE: A pediatric reference range has not been established by the mixing roll operator of this kit. The [place] [employer] recommends a Vitamin D level of = or >20ng/mL in infants and children. Vitamin D+Metabolites [Mass/ Vol]on 12-02-2023 [facility] VITAMIN D 25 HYD TOT 40.4 ng/mL Normal 30-100 [facility] Comment on above: Result Comment: Vitamin D status 25 [place] Vitamin D Deficiency <20 ng/mL Insufficiency 20-29 ng/mL Sufficiency 30-100 ng/mL Toxicity >100 ng/mL NOTE: A pediatric reference range has not been established by the mixing roll operator of this kit. The [place] [employer] recommends a Vitamin D level of = or >20ng/mL in infants and children. Performed By: #### C BCA, 79295-0, CMP, 90715-3, 1988-02, FEPR, TSHR, 2283-8, 9, 72900-4, 2242-4 #### [facility] ([id number]) [address], [address] [place] [address] Cholesterol [Mass/volume] in Serum or PlasmaOrdered By: Miah Abreu on 10-11-2023 Cholesterol [Mass/Vol] 224 mg/dL High 140-200 [facility] Comment on above: Chol less than 200 m g/dl low riskChol 201-239 mg/dl borderline riskChol 240 mg/dl and greater high risk Order Comment: SHARIF Nieves Result Comment: Chol less than 200 mg/dl low risk Chol 201-239 mg/dl borderline risk Chol 240 mg/dl and greater high risk Performed By: #### T 4F, [id number], LIPID, TSH3 wRFLX #### [facility] [address] [place] [address] [place] Cholesterol in LDL Calc [Mas s/Vol]Ordered By: Miah Abreu on 10-11-2023 Cholesterol in LDL [Mass/Vol] TNP [facility] Comment on above: Test not performed Cholesterol in VLDL Calc [Ma ss/Vol]Ordered By: Miah Abreu on 10-11-2023 Cholesterol in VLDL [Mass/Vol] 17 mg/dL [facility] Lipid Panelon 10-11-2023 Cholesterol Normal 140-200 [facility] Comment on above: Result Comment: Spec imen hemolyzed, redraw requested Chol less than 200 mg/dl low risk Chol 201-239 mg/dl borderline risk Chol 240 mg/dl and greater high risk Performed By: #### T 4F, [id number], LIPID, TSH3 wRFLX #### [facility] [address] [place] [address] [facility] Cholesterol.total/Rachel sterol in HDL [Mass ratio] Not performed Normal <5.0 [facility] Comment on above: Performed By: #### T 4F, [id number], LIPID, TSH3 wRFLX #### [facility] [address] [place] [address] [facility] LDL Cholesterol,Calculated Not performed Normal 0-100 [facility] Comment on above: Performed By: #### T 4F, [id number], LIPID, TSH3 wRFLX #### [facility] [address] [place] [address] Triglyceride w/Reflex 89 mg/dL Normal 0-149 [facility] Comment on above: Result Comment: TRIG ATP III CLASSIFICATION TRIG less than 150 mg/dL Normal TRIG 150-199 mg/dL Borderline high TRIG 200-500 mg/dL High TRIG greater than 500 mg/dL Very high Standard traceable to the Center for Disease Conrtrol and Prevention (CDC) test method. Performed By: #### T 4F, [id number], LIPID, TSH3 wRFLX #### [address] VLDL CHOLESTEROL 17 mg/dL Normal [facility] Comment on above: Performed By: #### T 4F, [id number], LIPID, TSH3 wRFLX #### [address] Serum or plasma high density lipoprotein (HDL) cholesterol measurementOrdered By: Miah Abreu on 10-11-2023 Cholesterol in HDL [Mass/Vol] 57 mg/dL Normal 23-92 [facility] Comment on above: HDL CHOL ATP-III CLA SSIFICATION Cardiovascular RiskHDL > or equal to 60 mg/dL LOWHDL < 40 mg/dL HIGH Result Comment: HDL CHOL ATP-III CLASSIFICATION Cardiovascular Risk HDL > or equal to 60 mg/dL LOW HDL < 40 mg/dL HIGH Performed By: #### T 4F, [id number], LIPID, TSH3 wRFLX #### [address] Serum or plasma total choles terol/high density lipoprotein (HDL) cholesterol mass ratOrdered By: Miah Abreu on 10-11-2023 Cholesterol.total/Rachel sterol in HDL [Mass ratio] TNP [facility] Comment on above: Test not performed Thyroid Stim Hormone w/Rflxo n 10-11-2023 Thyroid Stim Hormone w/Rflx 1.09 u[iU]/mL Normal 0.45-5.33 [facility] Comment on above: Performed By: #### T 4F, [id number], LIPID, TSH3 wRFLX #### [address] Thyrotropin [Units/volume] i n Serum or PlasmaOrdered By: Miah Brady on 10-11-2023 TSH Qn 1.09 m[IU]/L 0.45-5.33 [facility] Triglyceride [Mass/volume] i n Serum or PlasmaOrdered By: Miah Mirandaus on 10-11-2023 Triglyceride [Mass/Vol] 89 mg/dL 0-149 [facility] Comment on above: TRIG ATP III CLASSIF ICATIONTRIG less than 150 mg/dL NormalTRIG 150-199 mg/dL Borderline highTRIG 200-500 mg/dL High TRIG greater than 500 mg/dL Very highStandard traceable to the Center for Disease Conrtrol and Prevention (CDC) test method. Vitamin D 25 Hydroxy Totalon 10-11-2023 Vitamin D 25 Hydroxy Total 31.6 ng/mL Normal 30-100 [facility] Comment on above: Order Comment: FASTCarlos Enrique OLSON Y Result Comment: MARINA MIN D STATUS 25([place])VITAMIN D RANGE (ng/mL) Deficient <20 Insufficient 20 to <30 Sufficient 30 to 100 Reference: Jhony Fu, Janina LAYTON, et al. Evaluation,treatment, and prevention of vitamin D deficiency; an Endocrine Society clinical practice guideline. JCEM. 2010; 96(7):1911-30. PERFORMED BY: [place] [address] PATHOLOGIST [employer]ITTER TODD PICKARD M.D. Performed By: #### T 4F, [id number], LIPID, TSH3 wRFLX #### [facility] [address] Vitamin D 25 Hydroxy Total Normal 30-100 [facility] Comment on above: Result Comment: Spec imen hemolyzed, redraw requested VITAMIN D STATUS 25(OH)VITAMIN D RANGE (ng/mL) Deficient <20 Insufficient 20 to <30 Sufficient 30 to 100 Reference: Jhony Fu, Janina LAYTON, et al. Evaluation,treatment, and prevention of vitamin D deficiency; an Endocrine Society clinical practice guideline. JCEM. 2010; 96(7):1911-30. PERFORMED BY: [address] [id number] PATHOLOGIST [employer] KNITTER TODD PICKARD M.D. Performed By: #### T 4F, [id number], LIPID, TSH3 wRFLX #### [facility] [address] Vitamin D+Metabolites [Mass/ volume] in Serum or PlasmaOrdered By: Miah Abreu on 10-11-2023 Vitamin D+Metabolites [Mass/Vol] 31.6 ng/mL 30-100 [facility] Comment on above: VITAMIN D STATUS 25( [place])VITAMIN D RANGE (ng/mL) Deficient <20 Insufficient 20 to <30Sufficient 30 to 100Reference: Roque MF,Jhony NC, Janina LAYTON, et al. Evaluation,treatment, and prevention of vitamin D deficiency; an Endocrine Society clinical practice guideline. JCEM. 2010; 96(7):1911-30. Amphetamine Screen Ql (U)Ord ered By: Miah Abreu on 10-10-2023 Amphetamines Ql (U) Negative Negative [facility] Automated erythrocytes count in urine sediment (number/area)Ordered By: Miah Abreu on 10-10-2023 RBC Auto (Urine sed) [#/Area] 0-1 [HPF] 0-4 [facility] Automated leukocytes count i n urine sediment (number/area)Ordered By: Miah Abreu on 10-10-2023 WBC Auto (Urine sed) [#/Area] Innumerable [HPF] 0-4 [facility] Automated urine color determ inationOrdered By: Miah Abreu on 10-10-2023 Color (U) Yellow Normal Yellow [facility] Comment on above: Order Comment: Name Collection Type:: Voided Performed By: #### C UU, URDS, ADDONUAPLUS #### [facility] [address] Barbiturates [Presence] in U rine by Screen methodOrdered By: Miah Abreu on 10-10-2023 Barbiturates Screen Ql (U) Negative Negative [facility] Benzodiazepines Screen Ql (U )Ordered By: Miah Abreu on 10-10-2023 Benzodiazepines Ql (U) Positive Negative [facility] Benzoylecgonine [Presence] i n Urine by Screen methodOrdered By: Miah Abreu on 10-10-2023 Benzoylecgonine Screen Ql (U) Positive Negative [facility] Bilirubin Test strip Ql (U)O rdered By: Miah Abreu on 10-10-2023 Bilirubin Ql (U) Negative Negative [facility] Cannabinoids [Presence] in U rine by Screen methodOrdered By: Miahezequiel Abreu on 10-10-2023 Cannabinoids Screen Ql (U) Positive Negative [facility] Comment on above: These are unconfirme d results and should not be used for legal purposes. Drug Cut-Off Concentration: AMPH 1000 ng/mL AUGUSTINA 200 ng/mL MARLYS 200 ng/mL COCM 300 ng/mL OP 300 ng/mL PCP 25 ng/mL THC 20 ng/mL Dipstick and Microscopicon 0 10-10-2023 Appearance (U) Cloudy Critically abnormal Clear [facility] Comment on above: Order Comment: Name Collection Type:: Voided Performed By: #### C UU, URDS, ADDONUAPLUS #### [facility] [address] [place] [id number] [place] Bacteria,Urine None Seen Normal None Seen [facility] Comment on above: Order Comment: Name Collection Type:: Voided Performed By: #### C UU, URDS, ADDONUAPLUS #### [facility] [address] [place] [id number] [place] Bilirubin,Urine Negative Normal Negative [facility] Comment on above: Order Comment: Name Collection Type:: Voided Performed By: #### C UU, URDS, ADDONUAPLUS #### [facility] [address] [place] [address] [place] Glucose Ql (U) Normal Normal Normal [facility] Comment on above: Order Comment: Name Collection Type:: Voided Performed By: #### C UU, URDS, ADDONUAPLUS #### [facility] [address] [place] [id number] [place] Hyaline Casts,Urine None Seen Normal 0-8 [facility] Comment on above: Order Comment: Name Collection Type:: Voided Result Comment: PERF ORMED BY: [place] [address] PATHOLOGIST SURGICAL ELAST[employer] KNITTER TODD PICKARD M.D. Performed By: #### C UU, URDS, ADDONUAPLUS #### [address] Ketones Ql (U) Negative Normal Negative [facility] Comment on above: Order Comment: Name Collection Type:: Voided Performed By: #### C UU, URDS, ADDONUAPLUS #### [address] Leukocyte esterase Test strip Ql (U) 4+ High Negative [facility] Comment on above: Order Comment: Name Collection Type:: Voided Performed By: #### C UU, URDS, ADDONUAPLUS #### [place] [address] [place] Nitrite,Urine Negative Normal Negative [facility] Comment on above: Order Comment: Name Collection Type:: Voided Performed By: #### C UU, URDS, ADDONUAPLUS #### [place] [address] [place] Occult Blood,Urine Negative Normal Negative [facility] Comment on above: Order Comment: Name Collection Type:: Voided Result Comment: PERF ORMED BY: [place] [address] PATHOLOGIST [employer] KNITTER TODD PICKARD M.D. Performed By: #### C UU, URDS, ADDONUAPLUS #### [place] [address] [place] Protein,Urine Negative Normal Negative [facility] Comment on above: Order Comment: Name Collection Type:: Voided Performed By: #### C UU, URDS, ADDONUAPLUS #### [address] RBC LM.HPF (Urine sed) [#/Area] 0 /[HPF] Normal 0-4 [facility] Comment on above: Order Comment: Name Collection Type:: Voided Performed By: #### C UU, URDS, ADDONUAPLUS #### [address] Specificy [place],Urine 1.012 Normal 1.001-1.030 [facility] Comment on above: Order Comment: Name Collection Type:: Voided Performed By: #### C UU, URDS, ADDONUAPLUS #### [address] Squamous Epithelial Cell,Urine 0-1 Normal 0-2 [facility] Comment on above: Order Comment: Name Collection Type:: Voided Performed By: #### C UU, URDS, ADDONUAPLUS #### [address] Urobilinogen,Urine Normal Normal Normal [facility] Comment on above: Order Comment: Name Collection Type:: Voided Performed By: #### C UU, URDS, ADDONUAPLUS #### [address] WBC,Urine Innumerable High 0-4 [facility] Comment on above: Order Comment: Name Collection Type:: Voided Performed By: #### C UU, URDS, ADDONUAPLUS #### [address] Drug Screen,Urineon 10-10-19 24 Amphetamine Screen,Urine Negative Normal Negative [facility] Comment on above: Performed By: #### C UU, URDS, ADDONUAPLUS #### [address] Barbiturate Screen,Urine Negative Normal Negative [facility] Comment on above: Performed By: #### C UU, URDS, ADDONUAPLUS #### [address] Benzodiazepines Screen,Urine Positive High Negative [facility] Comment on above: Performed By: #### C UU, URDS, ADDONUAPLUS #### [address] Cannabinoid Screen,Urine Positive High Negative [facility] Comment on above: Result Comment: Thes e are unconfirmed results and should not be used for legal purposes. Drug Cut-Off Concentration: AMPH 1000 ng/mL AUGUSTINA 200 ng/mL MARLYS 200 ng/mL COCM 300 ng/mL OP 300 ng/mL PCP 25 ng/mL THC 20 ng/mL PERFORMED BY: [place] [address] PATHOLOGIST [employer] KNITTER TODD PICKARD M.D. Performed By: #### C UU, URDS, ADDONUAPLUS #### [place] [address] [place] Cocaine Screen,Urine Positive High Negative [facility] Comment on above: Performed By: #### C UU, URDS, ADDONUAPLUS #### [address] Opiate Screen,Urine Negative Normal Negative [facility] Comment on above: Performed By: #### C UU, URDS, ADDONUAPLUS #### [place] [address] [place] Phencyclidine Screen,Urine Negative Normal Negative [facility] Comment on above: Performed By: #### C UU, URDS, ADDONUAPLUS #### [address] ECG 12 lead ECGon 10-10-2023 ECG 12 lead ECG [facility] [place] [place] [address] Electrocardiograph Report Signed Patient: Loyda Scott MR#: [id number] : 1975 Acct:[id number] Age/Sex: 48 / F ADM Date: 10/10/23 Loc: Room: [address] [place] [address] Type: ADM IN Attending Dr: Miah Abreu MD Ordering Provider: Miah Abreu MD Date of Service: 10/10/2305/26/859 ECG/ECG 12 lead ECG: BASELINE Copies to: Test Reason : Blood Pressure : / mmHG Vent. Rate : 101 BPM Atrial Rate : 101 BPM P-R Int : 120 ms QRS Dur : 088 ms QT Int : 364 ms P-R-T Axes : 008 035 040 degrees QTc Int : 471 ms Sinus tachycardia with occasional premature ventricular complexes Otherwise normal ECG When compared with ECG of 24-AUG-2023 11:47, premature ventricular complexes are now present Confirmed by José Miguel Sinha ([id number]) on 10/10/2023 12:54:51 PM Referred By: Electronically Signed By:José Miguel Sinha Transcribed By: MUS Signed By José Miguel Sinha MD 10/10/23 1254 Normal [facility] Ketones Auto test strip (U) [Mass/Vol]Ordered By: Miah Abreu on 10-10-2023 Ketones (U) [Mass/Vol] Negative Negative [facility] - UrinalysisOrder ed By: Miah Abreu on 10-10-2023 Hyaline casts LM Ql (Urine sed) None seen [LPF] 0-8 [facility] Nitrite Test strip Ql (U)Ord ered By: Miah Abreu on 10-10-2023 Nitrite Ql (U) Negative Negative [facility] Opiates [Presence] in Urine by Screen methodOrdered By: Miah Abreu on 10-10-2023 Opiates Screen Ql (U) Negative Negative [facility] Phencyclidine Screen Ql (U)O rdered By: Miah Abreu on 10-10-2023 Phencyclidine Ql (U) Negative Negative [facility] Protein Auto test strip (U) [Mass/Vol]Ordered By: Miah Abreu on 10-10-2023 Protein (U) [Mass/Vol] Negative Negative [facility] Specific gravity Auto test s trip (U) [Rel density]Ordered By: Miah Abreu on 10-10-2023 Specific gravity (U) [Rel density] 1.012 1.001-1.030 [facility] Squamous epithelial cells de tection in urine sediment by light microscopyOrdered By: Miah Abreu on 10-10-2023 Epithelial cells.squamous LM Ql (Urine sed) 0-1 [HPF] 0-2 [facility] Urine Cultureon 10-10-2023 Bacteria identified Cx Nom (U) Urine Culture Results >100,000 col/ml Mixed Bacterial Skin Contaminants 2 Days PERFORMED BY: [place] [address] PATHOLOGIST [employer] KNITTER TODD PICKARD M.D. Normal [facility] Comment on above: Performed By: #### C UU, URDS, ADDONUAPLUS #### [facility] [address] Urine bacteria detection by automated methodOrdered By: Miah Abreu on 10-10-2023 Bacteria Auto Ql (U) None seen None Seen [facility] Urine clarity by refractomet ry automatedOrdered By: Miah Abreu on 10-10-2023 Clarity Refractometry automated (U) Cloudy Clear [facility] Urine culture routineOrdered By: Miah Abreu on 10-10-2023 Bacteria identified Cx Nom (U) [facility] Urine glucose measurement by automated test strip (mass/volume)Ordered By: Miah Abreu on 10-10-2023 Glucose Auto test strip (U) [Mass/Vol] Normal mg/dL Normal [facility] Urine hemoglobin detection b y automated test stripOrdered By: Miah Abreu on 10-10-2023 Hemoglobin Auto test strip Ql (U) Negative Negative [facility] Urine leukocyte esterase det ection by automated test stripOrdered By: Miah Abreu on 10-10-2023 Leukocyte esterase Auto test strip Ql (U) 4+ Negative [facility] Urine pH measurement by auto mated test stripOrdered By: Miah Abreu on 10-10-2023 pH (U) 5.5 [pH] Normal 5.0-9.0 [facility] Comment on above: Order Comment: Name Collection Type:: Voided Performed By: #### C UU, URDS, ADDONUAPLUS #### [facility] [address] [place] [address] Urobilinogen Auto test strip (U) [Mass/Vol]Ordered By: Miah Abreu on 10-10-2023 Urobilinogen (U) [Mass/Vol] Normal mg/dL Normal [facility] Alanine aminotransferase [En zymatic activity/volume] in Serum or PlasmaOrdered By: Adele Hunter on 08-25-2023 ALT [Catalytic activity/Vol] 97 U/L High 7-52 [facility] Comment on above: Performed By: #### T 4F, [id number], LIPID, TSH3 wRFLX #### [facility] [address] Albumin [Mass/volume] in Ser um or Plasma by Bromocresol green (BCG) dye binding methoOrdered By: Adele Hunter on 08-25-2023 Albumin BCG dye [Mass/Vol] 3.6 g/dL 3.5-5.7 [facility] Alkaline phosphatase [Enzyma tic activity/volume] in Serum or PlasmaOrdered By: Adele Hunter on 08-25-2023 ALP [Catalytic activity/Vol] 58 U/L Normal 34-104 [facility] Comment on above: Result Comment: PERF ORMED BY: [place] [address] PATHOLOGIST SUR[employer] KNITTER TODD PICKARD M.D. Performed By: #### T 4F, [id number], LIPID, TSH3 wRFLX #### [address] Aspartate aminotransferase [ Enzymatic activity/volume] in Serum or PlasmaOrdered By: Adele Hunter on 08-25-2023 AST [Catalytic activity/Vol] 94 U/L High 13-39 [facility] Comment on above: Performed By: #### T 4F, [id number], LIPID, TSH3 wRFLX #### [facility] [address] [place] [address] [place] Bilirubin.direct [Mass/volum e] in Serum or PlasmaOrdered By: Adele Schmitt on 08-25-2023 Bilirubin.direct [Mass/Vol] 0.00 mg/dL 0.03-0.18 [facility] Comment on above: If the DBIL is less than 0.1, IBIL is not able to becalculated. Bilirubin.total [Mass/volume ] in Serum or PlasmaOrdered By: Adele KoehlerDeion on 08-25-2023 Bilirubin [Mass/Vol] 0.3 mg/dL Normal 0.3-1.0 [facility] Comment on above: Performed By: #### T 4F, [id number], LIPID, TSH3 wRFLX #### [address] Diagnostic impression [Inter pretation] in Specimen NarrativeOrdered By: Adelejame Hunter on 08-25-2023 Diagnostic impression Molgen Nima (Unsp spec) [Interp] See comment . [facility] Comment on above: Positive HCV antibod y screen with the presence of HCV RNAis consistent with active infection.Performed at: - [facility] [address] [id number] Director: Rick Acevedo PhD, Phone: [phone] at: - [facility] [address] [id number] Director: Navarro Padilla MD, Phone: [phone] Hepatic Panelon 08-25-2023 Albumin [Mass/Vol] 3.6 g/dL Normal 3.5-5.7 [facility] Comment on above: Performed By: #### T 4F, [id number], LIPID, TSH3 wRFLX #### [address] Bilirubin,Indirect 0.3 mg/dL Normal [facility] Comment on above: Performed By: #### T 4F, [id number], LIPID, TSH3 wRFLX #### [address] Bilirubin.indirect [Mass/Vol] 0.00 mg/dL Low 0.03-0.18 [facility] Comment on above: Result Comment: If t he DBIL is less than 0.1, IBIL is not able to be calculated. Performed By: #### T 4F, [id number], LIPID, TSH3 wRFLX #### [address] Hepatitis Acute Panelon 08-04 HBsAg Screen Negative Normal Negative [facility] Comment on above: Performed By: #### T 4F, [id number], LIPID, TSH3 wRFLX #### [address] HCV Log10 6.933 Normal . [facility] Comment on above: Result Comment: Resu lt Units: log10 IU/mL Performed By: #### T 4F, [id number], LIPID, TSH3 wRFLX #### [address] Hepatitis A Antibody IgM Negative Normal Negative [facility] Comment on above: Performed By: #### T 4F, [id number], LIPID, TSH3 wRFLX #### [address] Hepatitis B Core Antibody IgM Negative Normal Negative [facility] Comment on above: Performed By: #### T 4F, [id number], LIPID, TSH3 wRFLX #### [address] Hepatitis C Quantitation [id number] Normal . [facility] Comment on above: Performed By: #### T 4F, [id number], LIPID, TSH3 wRFLX #### [address] Hepatitis C Virus Antibody Reactive Critically abnormal Non Reactive [facility] Comment on above: Performed By: #### T 4F, [id number], LIPID, TSH3 wRFLX #### [address] Interpretation Normal . [facility] Comment on above: Result Comment: Posi tive HCV antibody screen with the presence of HCV RNA is consistent with active infection. Performed at: - [facility] [id number] Hybrid Technologist: Rick Acevedo PhD, Phone: [phone] Performed at: - [facility] [id number] Hybrid Technologist: Navarro Padilla MD, Phone: [phone] PERFORMED BY: [address] [address] PATHOLOGIST SURGICAL E[employer] KNITTER TODD PICKARD M.D. Performed By: #### T 4F, [id number], LIPID, TSH3 wRFLX #### [facility] [address] [place] [address] Test Information: Normal . [facility] Comment on above: Result Comment: The quantitative range of this assay is 15 IU/mL to 100 million IU/mL. Performed By: #### T 4F, [id number], LIPID, TSH3 wRFLX #### [facility] [address] [place] [address] Hepatitis B virus surface Ag [Presence] in Serum or Plasma by ImmunoassayOrdered By: Adele Hunter on 08-25-2023 HBV surface Ag IA Ql Negative Negative [facility] Hepatitis C virus IgG Ab [Pr esence] in Serum or Plasma by ImmunoassayOrdered By: Adele Hunter on 08-25-2023 HCV IgG IA Ql Reactive Non Reactive [facility] Hepatitis C virus RNA [log u nits/volume] (viral load) in Serum or Plasma by TISHA withOrdered By: Adele Hunter on 08-25-2023 HCV RNA TISHA+probe [Log units/Vol] [id number] [IU]/mL . [facility] HCV RNA TISHA+probe [Log units/Vol] 6.933 . [facility] Comment on above: Result Units: log10 IU/mL No Panel InformationOrdered By: Adele Hunter on 08-25-2023 Hepatitis A IgM Antibody Negative Negative [facility] Hepatitis B Core IgM Antibody Negative Negative [facility] Hepatitis C RNA Qnt (PCR) Test Info See comment . [facility] Comment on above: The quantitative ran ge of this assay is 15 IU/mL to 100million IU/mL. Protein [Mass/volume] in Ser um or PlasmaOrdered By: Adele Hunter on 08-25-2023 Protein [Mass/Vol] 6.1 g/dL Low 6.4-8.9 [facility] Comment on above: Performed By: #### T 4F, [id number], LIPID, TSH3 wRFLX #### [facility] [address] Serum globulin measurement b y calculation (mass/volume)Ordered By: Adele Hunter on 08-25-2023 Globulin (S) [Mass/Vol] 2.5 g/dL Normal [facility] Comment on above: Performed By: #### T 4F, [id number], LIPID, TSH3 wRFLX #### [facility] [address] [place] [address] Serum or plasma albumin/glob ulin mass ratioOrdered By: Adele Hunter on 08-25-2023 Albumin/Globulin [Mass ratio] 1.4 {ratio} Normal [facility] Comment on above: Performed By: #### T 4F, [id number], LIPID, TSH3 wRFLX #### [address] Serum or plasma non-glucuron idated bilirubin measurement (mass/volume)Ordered By: Adele Hunter on 08-25-2023 Bilirubin.indirect [Mass/Vol] 0.3 mg/dL [facility] C reactive protein [Mass/vol ume] in Serum or PlasmaOrdered By: Olvin Rollins on 08-24-2023 CRP [Mass/Vol] 0.5 mg/dL 0.0-0.5 [facility] C-Reactive Proteinon 023 C-Reactive Protein 0.5 mg/dL Normal 0.0-0.5 [facility] Comment on above: Performed By: #### T 4F, [id number], LIPID, TSH3 wRFLX #### [facility] [address] [place] [address] Cholesterol [Mass/volume] in Serum or PlasmaOrdered By: Olvin Rollins on 08-24-2023 Cholesterol [Mass/Vol] 95 mg/dL Low 140-200 [facility] Comment on above: Chol less than 200 m g/dl low riskChol 201-239 mg/dl borderline riskChol 240 mg/dl and greater high risk Result Comment: Chol less than 200 mg/dl low risk Chol 201-239 mg/dl borderline risk Chol 240 mg/dl and greater high risk Performed By: #### T 4F, [id number], LIPID, TSH3 wRFLX #### [place] [id number] [facility] Cholesterol in LDL Calc [Mas s/Vol]Ordered By: Olvin Rollins on 08-24-2023 Cholesterol in LDL [Mass/Vol] 39 mg/dL 0-100 [facility] Comment on above: LDL ATP III CLASSIFI CATIONLDL less than 100 mg/dL OptimalLDL 100-129 mg/dL Near or above optimalLDL 130-159 mg/dL Borderline highLDL 160-189 mg/dL HighLDL greater than 189 mg/dL Very high Cholesterol in VLDL Calc [Ma ss/Vol]Ordered By: Olvin Rollins on 08-24-2023 Cholesterol in VLDL [Mass/Vol] 17 mg/dL [facility] ECG 12 lead ECGon 08-24-2023 ECG 12 lead ECG [facility] [place] [address] [place] [address] Electrocardiograph Report Signed Patient: Loyda Scott MR#: [id number] : 1975 Acct:[id number] Age/Sex: 48 / F ADM Date: 08/23/23 Loc: Room: [address] [place] [address] Type: ADM IN Attending Dr: Olvin Rollins [...] By Efrain Frye DO 08/24 1804 Normal [facility] Erythrocyte Sedimentation Ra jordy 08-24-2023 ESR (Bld) [Velocity] 16 mm/h Normal 0-29 [facility] Comment on above: Order Comment: SHARIF Nieves Result Comment: PERF ORMED BY: [place] [address] PATHOLOGIST SURGICAL E[employer] KNITTER TODD PICKARD M.D. Performed By: #### T 4F, [id number], LIPID, TSH3 wRFLX #### [address] Erythrocyte sedimentation ra te by Photometric methodOrdered By: Adele Schmitt on 08-24-2023 ESR Photometric method (Bld) [Velocity] 16 mm/hr 0-29 [facility] Lipid Panelon 08-24-2023 LDL Cholesterol,Calculated 39 mg/dL Normal 0-100 [facility] Comment on above: Result Comment: LDL ATP III CLASSIFICATION LDL less than 100 mg/dL Optimal LDL 100-129 mg/dL Near or above optimal LDL 130-159 mg/dL Borderline high LDL 160-189 mg/dL High LDL greater than 189 mg/dL Very high Performed By: #### T 4F, [id number], LIPID, TSH3 wRFLX #### [address] Triglyceride w/Reflex 85 mg/dL Normal 0-149 [facility] Comment on above: Result Comment: TRIG ATP III CLASSIFICATION TRIG less than 150 mg/dL Normal TRIG 150-199 mg/dL Borderline high TRIG 200-500 mg/dL High TRIG greater than 500 mg/dL Very high Standard traceable to the Center for Disease Conrtrol and Prevention (CDC) test method. Performed By: #### T 4F, [id number], LIPID, TSH3 wRFLX #### [address] VLDL CHOLESTEROL 17 mg/dL Normal [facility] Comment on above: Performed By: #### T 4F, [id number], LIPID, TSH3 wRFLX #### [facility] [address] Serum or plasma high density lipoprotein (HDL) cholesterol measurementOrdered By: Olvin Rollins on 08-24-2023 Cholesterol in HDL [Mass/Vol] 39 mg/dL Normal 23-92 [facility] Comment on above: HDL CHOL ATP-III CLA SSIFICATION Cardiovascular RiskHDL > or equal to 60 mg/dL LOWHDL < 40 mg/dL HIGH Result Comment: HDL CHOL ATP-III CLASSIFICATION Cardiovascular Risk HDL > or equal to 60 mg/dL LOW HDL < 40 mg/dL HIGH Performed By: #### T 4F, [id number], LIPID, TSH3 wRFLX #### [facility] [address] [place] [address] Serum or plasma total choles terol/high density lipoprotein (HDL) cholesterol mass ratOrdered By: Olvin Rollins on 08-24-2023 Cholesterol.total/Rachel sterol in HDL [Mass ratio] 2.4 {ratio} Normal <5.0 [facility] Comment on above: Performed By: #### T 4F, [id number], LIPID, TSH3 wRFLX #### [facility] [address] [place] [address] Thyroid Stim Hormone w/Rflxo n 08-24-2023 Thyroid Stim Hormone w/Rflx 1.54 u[iU]/mL Normal 0.45-5.33 [facility] Comment on above: Performed By: #### T 4F, [id number], LIPID, TSH3 wRFLX #### [facility] [address] [place] [address] Thyrotropin [Units/volume] i n Serum or PlasmaOrdered By: Olvin Rollins on 08-24-2023 TSH Qn 1.54 m[IU]/L 0.45-5.33 [facility] Triglyceride [Mass/volume] i n Serum or PlasmaOrdered By: Olvin Rollins on 08-24-2023 Triglyceride [Mass/Vol] 85 mg/dL 0-149 [facility] Comment on above: TRIG ATP III CLASSIF ICATIONTRIG less than 150 mg/dL NormalTRIG 150-199 mg/dL Borderline highTRIG 200-500 mg/dL High TRIG greater than 500 mg/dL Very highStandard traceable to the Center for Disease Conrtrol and Prevention (CDC) test method. Urate [Mass/volume] in Serum or PlasmaOrdered By: Olvin Rollins on 08-24-2023 Urate [Mass/Vol] 4.1 mg/dL Normal 2.3-6.6 [facility] Comment on above: Performed By: #### T 4F, [id number], LIPID, TSH3 wRFLX #### [facility] [address] [id number] [facility] Vitamin D 25 Hydroxy Totalon 08-24-2023 Vitamin D 25 Hydroxy Total 34.0 ng/mL Normal 30-100 [facility] Comment on above: Result Comment: MARINA MIN D STATUS 25(OH)VITAMIN D RANGE (ng/mL) Deficient <20 Insufficient 20 to <30 Sufficient 30 to 100 Reference: Jhony Fu, Janina LAYTON, et al. Evaluation,treatment, and prevention of vitamin D deficiency; an Endocrine Society clinical practice guideline. JCEM. 2010; 96(7):1911-30. PERFORMED BY: [place] [address] PATHOLOGIST [employer] KNITTER TODD PICKARD M.D. Performed By: #### T 4F, [id number], LIPID, TSH3 wRFLX #### [facility] [address] [id number] [facility] Vitamin D+Metabolites [Mass/ volume] in Serum or PlasmaOrdered By: Olvin Rollins on 08-24-2023 Vitamin D+Metabolites [Mass/Vol] 34.0 ng/mL 30-100 [facility] Comment on above: VITAMIN D STATUS 25( OH)VITAMIN D RANGE (ng/mL) Deficient <20 Insufficient 20 to <30Sufficient 30 to 100Reference: Jhony Fu, Janina LAYTON, et al. Evaluation,treatment, and prevention of vitamin D deficiency; an Endocrine Society clinical practice guideline. JCEM. 2010; 96(7):1911-30. Automated basophil %Ordered By: Jesus Callahan on 04-26-2023 Basophils/100 WBC (Bld) 1.2 % Normal . [facility] Comment on above: Performed By: #### T 4F, [id number], LIPID, TSH3 wRFLX #### [address] Automated basophil countOrde red By: Jesus Callahan on 04-26-2023 Basophils (Bld) [#/Vol] 0.0 10*3/uL Normal 0.0-0.2 [facility] Comment on above: Result Comment: PERF ORMED BY: [place] [address] PATHOLOGIST [employer] KNITTER TODD PICKARD M.D. Performed By: #### T 4F, [id number], LIPID, TSH3 wRFLX #### [address] Automated blood monocyte cou ntOrdered By: Jesus Callahan on 04-26-2023 Monocytes (Bld) [#/Vol] 0.3 10*3/uL Normal 0.0-0.8 [facility] Comment on above: Performed By: #### T 4F, [id number], LIPID, TSH3 wRFLX #### [address] Automated eosinophil %Ordere d By: Jesus Callahan on 04-26-2023 Eosinophils/100 WBC (Bld) 3.2 % Normal . [facility] Comment on above: Performed By: #### T 4F, [id number], LIPID, TSH3 wRFLX #### [address] Automated eosinophil countOr dered By: Jesus Callahan on 04-26-2023 Eosinophils (Bld) [#/Vol] 0.1 10*3/uL Normal 0.0-0.45 [facility] Comment on above: Performed By: #### T 4F, [id number], LIPID, TSH3 wRFLX #### [address] Automated monocyte %Ordered By: Jesus Callahan on 04-26-2023 Monocytes/100 WBC (Bld) 8.2 % Normal . [facility] Comment on above: Performed By: #### T 4F, [id number], LIPID, TSH3 wRFLX #### [address] Automated neutrophil %Ordere d By: Jesus Callahan on 04-26-2023 Neutrophils/100 WBC (Bld) 54.1 % Normal . [facility] Comment on above: Performed By: #### T 4F, [id number], LIPID, TSH3 wRFLX #### [address] Complete Blood Count Auto Di ffon 04-26-2023 Mean Corpuscular HGB Conc 33.9 g/dL Normal 32.0-35.0 [facility] Comment on above: Performed By: #### T 4F, [id number], LIPID, TSH3 wRFLX #### [address] NRBC% 0.2 /100{WBC} Normal 0-0.5 [facility] Comment on above: Performed By: #### T 4F, [id number], LIPID, TSH3 wRFLX #### [address] Erythrocyte distribution wid th [Ratio] by Automated countOrdered By: Jesus Callahan on 04-26-2023 Erythrocyte distribution width (RBC) [Ratio] 12.1 % Normal 11.9-15.3 [facility] Comment on above: Performed By: #### T 4F, [id number], LIPID, TSH3 wRFLX #### [address] Erythrocytes [#/volume] in B lood by Automated countOrdered By: Jesus Callahan on 04-26-2023 RBC (Bld) [#/Vol] 3.49 10*6/uL Low 3.60-5.00 [facility] Comment on above: Performed By: #### T 4F, [id number], LIPID, TSH3 wRFLX #### [facility] [address] [place] [address] Hematocrit [Volume Fraction] of Blood by Automated countOrdered By: Jesus Callahan on 04-26-2023 Hematocrit (Bld) [Volume fraction] 34.0 % Normal 34.0-46.4 [facility] Comment on above: Performed By: #### T 4F, [id number], LIPID, TSH3 wRFLX #### [facility] [address] [place] [address] Hemoglobin [Mass/volume] in BloodOrdered By: Jesus Callahan on 04-26-2023 Hemoglobin (Bld) [Mass/Vol] 11.5 g/dL Low 11.8-15.4 [facility] Comment on above: Performed By: #### T 4F, [id number], LIPID, TSH3 wRFLX #### [facility] [address] [place] [address] Leukocytes [#/volume] correc vargas for nucleated erythrocytes in Blood by Automated counOrdered By: Jesus Callahan on 04-26-2023 WBC corrected for nucl RBC Auto (Bld) [#/Vol] 3.8 10*3/uL 3.8-11.6 [facility] Leukocytes [#/volume] in Blo od by Automated countOrdered By: Jesus Callahan on 04-26-2023 WBC (Bld) [#/Vol] 3.8 10*3/uL Normal 3.8-11.6 [facility] Comment on above: Performed By: #### T 4F, [id number], LIPID, TSH3 wRFLX #### [facility] [address] [place] [address] Lymphocytes [#/volume] in Bl ood by Automated countOrdered By: Jesus Callahan on 04-26-2023 Lymphocytes (Bld) [#/Vol] 1.3 10*3/uL Normal 1.00-4.8 [facility] Comment on above: Performed By: #### T 4F, [id number], LIPID, TSH3 wRFLX #### [address] Lymphocytes/100 leukocytes i n Blood by Automated countOrdered By: Jesus Callahan on 04-26-2023 Lymphocytes/100 WBC (Bld) 33.3 % Normal . [facility] Comment on above: Performed By: #### T 4F, [id number], LIPID, TSH3 wRFLX #### [place] [address] [place] MCH [Entitic mass] by Automa vargas countOrdered By: Jesus Callahan on 04-26-2023 MCH (RBC) [Entitic mass] 33.1 pg Normal 24.7-34.3 [facility] Comment on above: Performed By: #### T 4F, [id number], LIPID, TSH3 wRFLX #### [address] MCHC Auto (RBC) [Mass/Vol]Or dered By: Jesus Callahan on 04-26-2023 MCHC (RBC) [Mass/Vol] 33.9 g/dL 32.0-35.0 [facility] MCV [Entitic volume] by Auto mated countOrdered By: Jesus Callahan on 04-26-2023 MCV (RBC) [Entitic vol] 97.5 fL Normal 80-100 [facility] Comment on above: Performed By: #### T 4F, [id number], LIPID, TSH3 wRFLX #### [place] [address] [place] Neutrophils [#/volume] in Bl ood by Automated countOrdered By: Jesus Callahan on 04-26-2023 Neutrophils (Bld) [#/Vol] 2.1 10*3/uL Normal 1.8-7.7 [facility] Comment on above: Performed By: #### T 4F, [id number], LIPID, TSH3 wRFLX #### [place] [address] [place] Nucleated erythrocytes [Pres ence] in Blood by Automated countOrdered By: Jesus Callahan on 04-26-2023 Nucleated RBC Auto Ql (Bld) 0.2 /100{WBC} 0-0.5 [facility] Platelet mean volume [Entiti c volume] in Blood by Automated countOrdered By: Jesus Callahan on 04-26-2023 Platelet mean volume (Bld) [Entitic vol] 8.4 fL Normal 6.3-10.7 [facility] Comment on above: Performed By: #### T 4F, [id number], LIPID, TSH3 wRFLX #### [facility] [address] Platelets [#/volume] in Bloo d by Automated countOrdered By: Jesus Callahan on 04-26-2023 Platelets (Bld) [#/Vol] 231 10*3/uL Normal 150-450 [facility] Comment on above: Performed By: #### T 4F, [id number], LIPID, TSH3 wRFLX #### [address] Basic Metabolic Panelon 04-03 Creatinine Clr Calc Pharmacy 72.98 Normal [facility] Comment on above: Result Comment: PERF ORMED BY: [place] [address] PATHOLOGIST [employer] KNITTER TODD PICKARD M.D. Performed By: #### T 4F, [id number], LIPID, TSH3 wRFLX #### [address] GFR/1.73 sq M.predicted MDRD (S/P/Bld) [Vol rate/Area] mL/min/{1.73_m2} Normal [facility] Comment on above: Performed By: #### T 4F, [id number], LIPID, TSH3 wRFLX #### [facility] [address] Calcium [Mass/volume] in Ser um or PlasmaOrdered By: Adele Gorman on 04-24-2023 Calcium [Mass/Vol] 7.9 mg/dL Low 8.6-10.3 [facility] Comment on above: Performed By: #### T 4F, [id number], LIPID, TSH3 wRFLX #### [address] Carbon dioxide, total [Moles /volume] in Serum or PlasmaOrdered By: Adele Gorman on 04-24-2023 CO2 [Moles/Vol] 28.9 mmol/L Normal 21.0-31.0 [facility] Comment on above: Performed By: #### T 4F, [id number], LIPID, TSH3 wRFLX #### [address] Chloride [Moles/volume] in S kennedi or PlasmaOrdered By: Adele Gorman on 04-24-2023 Chloride [Moles/Vol] 108 mmol/L High 98-107 [facility] Comment on above: Performed By: #### T 4F, [id number], LIPID, TSH3 wRFLX #### [address] Complete Blood Count Auto Di ffon 04-24-2023 Basophils (Bld) [#/Vol] 0.0 10*3/uL Normal 0.0-0.2 [facility] Comment on above: Result Comment: PERF ORMED BY: [place] [address] PATHOLOGIST [employer] KNITTER TODD PICKARD M.D. Performed By: #### T 4F, [id number], LIPID, TSH3 wRFLX #### [place] [address] [place] Basophils/100 WBC (Bld) 0.8 % Normal . [facility] Comment on above: Performed By: #### T 4F, [id number], LIPID, TSH3 wRFLX #### [place] [address] [place] Eosinophils (Bld) [#/Vol] 0.2 10*3/uL Normal 0.0-0.45 [facility] Comment on above: Performed By: #### T 4F, [id number], LIPID, TSH3 wRFLX #### [address] Eosinophils/100 WBC (Bld) 3.4 % Normal . [facility] Comment on above: Performed By: #### T 4F, [id number], LIPID, TSH3 wRFLX #### [address] Erythrocyte distribution width (RBC) [Ratio] 11.9 % Normal 11.9-15.3 [facility] Comment on above: Performed By: #### T 4F, [id number], LIPID, TSH3 wRFLX #### [address] Hematocrit (Bld) [Volume fraction] 31.2 % Low 34.0-46.4 [facility] Comment on above: Performed By: #### T 4F, [id number], LIPID, TSH3 wRFLX #### [address] Hemoglobin (Bld) [Mass/Vol] 10.9 g/dL Low 11.8-15.4 [facility] Comment on above: Performed By: #### T 4F, [id number], LIPID, TSH3 wRFLX #### [address] Lymphocytes (Bld) [#/Vol] 1.4 10*3/uL Normal 1.00-4.8 [facility] Comment on above: Performed By: #### T 4F, [id number], LIPID, TSH3 wRFLX #### [address] Lymphocytes/100 WBC (Bld) 30.6 % Normal . [facility] Comment on above: Performed By: #### T 4F, [id number], LIPID, TSH3 wRFLX #### [address] MCH (RBC) [Entitic mass] 33.6 pg Normal 24.7-34.3 [facility] Comment on above: Performed By: #### T 4F, [id number], LIPID, TSH3 wRFLX #### [address] MCV (RBC) [Entitic vol] 96.2 fL Normal 80-100 [facility] Comment on above: Performed By: #### T 4F, [id number], LIPID, TSH3 wRFLX #### [address] Mean Corpuscular HGB Conc 34.9 g/dL Normal 32.0-35.0 [facility] Comment on above: Performed By: #### T 4F, [id number], LIPID, TSH3 wRFLX #### [address] Monocytes (Bld) [#/Vol] 0.4 10*3/uL Normal 0.0-0.8 [facility] Comment on above: Performed By: #### T 4F, [id number], LIPID, TSH3 wRFLX #### [address] Monocytes/100 WBC (Bld) 8.1 % Normal . [facility] Comment on above: Performed By: #### T 4F, [id number], LIPID, TSH3 wRFLX #### [address] Neutrophils (Bld) [#/Vol] 2.7 10*3/uL Normal 1.8-7.7 [facility] Comment on above: Performed By: #### T 4F, [id number], LIPID, TSH3 wRFLX #### [address] Neutrophils/100 WBC (Bld) 57.1 % Normal . [facility] Comment on above: Performed By: #### T 4F, [id number], LIPID, TSH3 wRFLX #### [address] NRBC% 0.2 /100{WBC} Normal 0-0.5 [facility] Comment on above: Performed By: #### T 4F, [id number], LIPID, TSH3 wRFLX #### [facility] [address] Platelet mean volume (Bld) [Entitic vol] 8.9 fL Normal 6.3-10.7 [facility] Comment on above: Performed By: #### T 4F, [id number], LIPID, TSH3 wRFLX #### [facility] [address] Platelets (Bld) [#/Vol] 226 10*3/uL Normal 150-450 [facility] Comment on above: Performed By: #### T 4F, [id number], LIPID, TSH3 wRFLX #### [facility] [address] RBC (Bld) [#/Vol] 3.24 10*6/uL Low 3.60-5.00 [facility] Comment on above: Performed By: #### T 4F, [id number], LIPID, TSH3 wRFLX #### [address] WBC (Bld) [#/Vol] 4.7 10*3/uL Normal 3.8-11.6 [facility] Comment on above: Performed By: #### T 4F, [id number], LIPID, TSH3 wRFLX #### [address] Creatinine [Mass/volume] in Serum or PlasmaOrdered By: Adele Gorman on 04-24-2023 Creatinine [Mass/Vol] 0.95 mg/dL Normal 0.60-1.20 [facility] Comment on above: Performed By: #### T 4F, [id number], LIPID, TSH3 wRFLX #### [place] [address] [place] Glucose [Mass/volume] in Ser um or PlasmaOrdered By: Adele Gormna on 04-24-2023 Glucose [Mass/Vol] 94 mg/dL Normal 70-100 [facility] Comment on above: ADA recommended refe rence rangeRandom Glucose Reference Range is dependent on time and content of last meal. Glucose of more than 200 mg/dL in a nonstressed, ambulatory subject supports the diagnosis of Diabetes Mellitus. Result Comment: [facility] Glucose Reference Range is dependent on time and content of last meal. Glucose of more than 200 mg/dL in a nonstressed, ambulatory subject supports the diagnosis of Diabetes Mellitus. ADA recommended reference range Performed By: #### T 4F, [id number], LIPID, TSH3 wRFLX #### [facility] [address] No Panel InformationOrdered By: Adele Gorman on 04-24-2023 Estimated GFR (CKD-EPI) > 60.0 mL/Min [facility] Creatinine Clearance (Chem 72.98 [facility] Potassium [Moles/volume] in Serum or PlasmaOrdered By: Adele Gorman on 04-24-2023 Potassium [Moles/Vol] 4.2 mmol/L Normal 3.5-5.1 [facility] Comment on above: Performed By: #### T 4F, [id number], LIPID, TSH3 wRFLX #### [address] Serum or plasma anion gap de terminationOrdered By: Adele Gorman on 04-24-2023 Anion gap [Moles/Vol] 7.3 mmol/L Normal 6.0-15.0 [facility] Comment on above: Performed By: #### T 4F, [id number], LIPID, TSH3 wRFLX #### [place] [address] [place] Sodium [Moles/volume] in Ser um or PlasmaOrdered By: Adele Gorman on 04-24-2023 Sodium [Moles/Vol] 140 mmol/L Normal 136-145 [facility] Comment on above: Performed By: #### T 4F, [id number], LIPID, TSH3 wRFLX #### [place] [address] [place] Urea nitrogen [Mass/volume] in Serum or PlasmaOrdered By: Adele Gorman on 04-24-2023 Urea nitrogen [Mass/Vol] 14 mg/dL Normal 7-25 [facility] Comment on above: Performed By: #### T 4F, [id number], LIPID, TSH3 wRFLX #### [facility] [address] Bacteria identified Aer cx N om (Unsp spec)Ordered By: Adele Gorman on 04-23-2023 Superficial Wound Culture Methicillin Resis Staph Aureus [facility] Superficial Wound Cultureon 04-23-2023 Superficial [...] RESISTANT TO ALL B-LACTAM DRUGS. PERFORMED BY: [place] [address] PATHOLOGIST [employer] KNITTER TODD PICKARD M.D. Normal [facility] Comment on above: Performed By: #### T 4F, [id number], LIPID, TSH3 wRFLX #### [facility] [address] [id number] [facility] Cholesterol [Mass/volume] in Serum or PlasmaOrdered By: Miah Abreu on 04-15-2023 Cholesterol [Mass/Vol] 136 mg/dL 140-200 [facility] Comment on above: Chol less than 200 m g/dl low riskChol 201-239 mg/dl borderline riskChol 240 mg/dl and greater high risk Cholesterol in LDL Calc [Mas s/Vol]Ordered By: Miah Abreu on 04-15-2023 Cholesterol in LDL [Mass/Vol] 69 mg/dL 0-100 [facility] Comment on above: LDL ATP III CLASSIFI CATIONLDL less than 100 mg/dL OptimalLDL 100-129 mg/dL Near or above optimalLDL 130-159 mg/dL Borderline highLDL 160-189 mg/dL HighLDL greater than 189 mg/dL Very high Cholesterol in VLDL Calc [Ma ss/Vol]Ordered By: Miah Abreu on 04-15-2023 Cholesterol in VLDL [Mass/Vol] 24 mg/dL [facility] Serum or plasma high density lipoprotein (HDL) cholesterol measurementOrdered By: Miah Abreu on 04-15-2023 Cholesterol in HDL [Mass/Vol] 43 mg/dL 23-92 [facility] Comment on above: HDL CHOL ATP-III CLA SSIFICATION Cardiovascular RiskHDL > or equal to 60 mg/dL LOWHDL < 40 mg/dL HIGH Serum or plasma total choles terol/high density lipoprotein (HDL) cholesterol mass ratOrdered By: Miah Abreu on 04-15-2023 Cholesterol.total/Rachel sterol in HDL [Mass ratio] 3.2 {ratio} <5.0 [facility] Thyrotropin [Units/volume] i n Serum or PlasmaOrdered By: Miah Abreu on 04-15-2023 TSH Qn 1.98 m[IU]/L 0.45-5.33 [facility] Triglyceride [Mass/volume] i n Serum or PlasmaOrdered By: Miah Abreu on 04-15-2023 Triglyceride [Mass/Vol] 122 mg/dL 0-149 [facility] Comment on above: TRIG ATP III CLASSIF ICATIONTRIG less than 150 mg/dL NormalTRIG 150-199 mg/dL Borderline highTRIG 200-500 mg/dL High TRIG greater than 500 mg/dL Very highStandard traceable to the Center for Disease Conrtrol and Prevention (CDC) test method. Vitamin D+Metabolites [Mass/ volume] in Serum or PlasmaOrdered By: Miah Abreu on 04-15-2023 Vitamin D+Metabolites [Mass/Vol] 44.6 ng/mL 30-100 [facility] Comment on above: VITAMIN D STATUS 25( [place])VITAMIN D RANGE (ng/mL) Deficient <20 Insufficient 20 to <30Sufficient 30 to 100Reference: Roque CARBALLO,Jhony MEDINA, Janina LAYTON, et al. Evaluation,treatment, and prevention of vitamin D deficiency; an Endocrine Society clinical practice guideline. JCEM. 2010; 96(7):1911-30. CBC AUTO DIFFon 09-07-2022 BASO # 0.0 103/ul Normal 0.0-0.1 [facility] Comment on above: Performed By: #### E TH, SALYC, ACET, CMP #### [facility] [address] [place] [address] Dr. Erlinda Rivera Basophils/100 WBC (Bld) 0.3 % Normal 0.2-2.0 [facility] Comment on above: Performed By: #### E TH, SALYC, ACET, CMP #### [facility] [address] [place] [address] Dr. Erlinda Rivera EO # 0.3 103/ul Normal 0.0-0.7 [facility] Comment on above: Performed By: #### E TH, SALYC, ACET, CMP #### [facility] [address] [place] [address] Dr. Erlinda Rivera Eosinophils/100 WBC (Bld) 3.7 % Normal 0.9-7.0 [facility] Comment on above: Performed By: #### E TH, SALYC, ACET, CMP #### [facility] [address] [place] [address] Dr. Erlinda Rivera Erythrocyte distribution width (RBC) [Ratio] 12.5 % Normal 11.0-15.0 [facility] Comment on above: Performed By: #### E TH, SALYC, ACET, CMP #### [facility] [address] [place] [address] Dr. Erlinda Rivera Hematocrit (Bld) [Volume fraction] 37.5 % Normal 36.0-48.0 [facility] Comment on above: Performed By: #### E TH, SALYC, ACET, CMP #### [facility] [address] [place] [address] Dr. Erlinda Rivera Hemoglobin (Bld) [Mass/Vol] 12.8 g/dL Normal 12.0-16.0 [facility] Comment on above: Performed By: #### E TH, SALYC, ACET, CMP #### [facility] [address] [place] [address] Dr. Erlinda Rivera IG # 0.02 10e3/ul Normal 0.00-0.03 [facility] Comment on above: Performed By: #### E TH, SALYC, ACET, CMP #### [facility] [address] [place] [address] Dr. Erlinda Rivera IG % 0.3 % Normal 0.0-0.5 [facility] Comment on above: Performed By: #### E TH, SALYC, ACET, CMP #### [facility] [address] [place] [address] Dr. Erlinda Rivera LYMPH # 2.0 103/ul Normal 1.2-3.8 [facility] Comment on above: Performed By: #### E TH, SALYC, ACET, CMP #### [facility] [address] [place] [address] Dr. Erlinda Rivera Lymphocytes/100 WBC (Bld) 28.8 % Normal 20.5-60.0 [facility] Comment on above: Performed By: #### E TH, SALYC, ACET, CMP #### [facility] [address] [place] [address] Dr. Erlinda Rivera MANUAL DIFF REQ NO Normal [facility] Comment on above: Performed By: #### E TH, SALYC, ACET, CMP #### [facility] [address] [place] [address] Dr. Erlinda Rivera MCH (RBC) [Entitic mass] 33.2 pg Normal 26.7-34.0 [facility] Comment on above: Performed By: #### E TH, SALYC, ACET, CMP #### [facility] [address] [place] [address] Dr. Erlinda Rivera MCHC (RBC) [Mass/Vol] 34.1 g/dL Normal 29.9-35.2 [facility] Comment on above: Performed By: #### E TH, SALYC, ACET, CMP #### [facility] [address] [place] [address] Dr. Erlinda Rivera MCV (RBC) [Entitic vol] 97.2 fL Normal 81.0-99.0 [facility] Comment on above: Performed By: #### E TH, SALYC, ACET, CMP #### [facility] [address] [place] [address] Dr. Erlinda Rivera MONO # 0.6 103/ul Normal 0.3-0.8 [facility] Comment on above: Performed By: #### E TH, SALYC, ACET, CMP #### [facility] [address] [place] [address] Dr. Erlinda Rivera Monocytes/100 WBC (Bld) 7.8 % Normal 1.7-12.0 [facility] Comment on above: Performed By: #### E TH, SALYC, ACET, CMP #### [facility] [address] [place] [address] Dr. Erlinda Rivera NEUT # 4.2 103/ul Normal 1.4-6.5 [facility] Comment on above: Performed By: #### E TH, SALYC, ACET, CMP #### [facility] [address] [place] [address] Dr. Erlinda Rivera Neutrophils/100 WBC (Bld) 59.1 % Normal 43.0-75.0 [facility] Comment on above: Performed By: #### E TH, SALYC, ACET, CMP #### [facility] [address] [place] [address] Dr. Erlinda Rivera Platelet mean volume (Bld) [Entitic vol] 10.2 fL Normal 9.5-13.5 [facility] Comment on above: Performed By: #### E TH, SALYC, ACET, CMP #### [facility] [address] [place] [address] Dr. Erlinda Rivera PLT 270 103/ul Normal 150-450 [facility] Comment on above: Performed By: #### E TH, SALYC, ACET, CMP #### [facility] [address] [place], [place] [address] Dr. rElinda Rivera RBC 3.86 106/ul Critically low 4.20-5.40 [facility] Comment on above: Performed By: #### E TH, SALYC, ACET, CMP #### [facility] [address], [place] [address] Dr. Erlinda Rivera WBC 7.0 103/ul Normal 4.0-11.0 [facility] Comment on above: Performed By: #### E TH, SALYC, ACET, CMP #### [facility] [id number] Erlinda Rivera CT ABD/PELVIS WO CONon [...] Tressa BROWN Date: 2022-09-07 17:02 Normal [facility] CULTURE URINEon 09-07-2022 CULTURE URINE Culture Observations : NO GROWTH. Normal [facility] Comment on above: Performed By: #### C VDTB #### [facility] [address] [place] [address] Dr. Erlinda Rivera ER URINE PROFILEon 2 Bilirubin Ql (U) Negative Normal NEGATIVE [facility] Comment on above: Performed By: #### Sakina DE PAZ UMICRO #### [facility] [address] [place] [address] Dr. Erlinda Rivera Clarity (U) CLEAR Normal CLEAR [facility] Comment on above: Performed By: #### Sakina DE PAZ UMICRO #### [facility] [address] [place] [address] Dr. Erlinda Rivera Color (U) LT. YELLOW Normal YELLOW [facility] Comment on above: Performed By: #### Sakina DE PAZ UMICRO #### [facility] [address] [place] [address] Dr. Erlinda ALFONSO A micrscopic examination will be performed if indicated. Normal [facility] Comment on above: Performed By: #### Sakina DE PAZ UMICRO #### [facility] [address] [place] [address] Dr. Erlinda Rivera Glucose Ql (U) Negative Normal NEGATIVE [facility] Comment on above: Performed By: #### Sakina DE PAZ UMICRO #### [facility] [address] [place] [address] Dr. Erlinda Rivera Hemoglobin Ql (U) Negative Normal NEGATIVE [facility] Comment on above: Performed By: #### Sakina RUR UMICRO #### [facility] [address] [place] [address] Dr. Erlinda Rivera Ketones Ql (U) Negative Normal NEGATIVE [facility] Comment on above: Performed By: #### Sakina RUR UMICRO #### [facility] [address] [place] [address] Dr. Erlinda Rivera LEUKOCYTES MODERATE Abnormal NEGATIVE [facility] Comment on above: Performed By: #### ESTHER SOTELOICRO #### [facility] [address] [place] [address] Dr. Erlinda Rivera Nitrite Ql (U) Negative Normal NEGATIVE [facility] Comment on above: Performed By: #### SEBASTIÁN SOTELORO #### [facility] [address] [place] [address] Dr. Erlinda Rivera pH (U) 6.0 [pH] Normal 5-9 [facility] Comment on above: Performed By: #### SEBASTIÁN SOTELORO #### [facility] [address] [place] [address] Dr. Erlinda Rivera SPEC GRAVITY 1.025 Normal 1.005-<=1.025 [facility] Comment on above: Performed By: #### SEBASTIÁN SOTELORO #### [facility] [address] [place] [address] Dr. Erlinda Rivera UA PROTEIN Negative Normal NEGATIVE/ TRACE [facility] Comment on above: Performed By: #### SEBASTIÁN SOTELORO #### [facility] [address] [place] [address] Dr. Erlinda Rivera UR MICRO IND INDICATED Normal [facility] Comment on above: Performed By: #### SEBASTIÁN SOTELORO #### [facility] [address] [place] [address] Dr. Erlinda Rivera Urobilinogen Qn (U) 0.2 {Shannan'U}/dL Normal 0.2 - 1. 0 [facility] Comment on above: Performed By: #### SEBASTIÁN SOTELORO #### [facility] [address] [place] [address] Dr. Erlinda Rivera LIPASEon 09-07-2022 Lipase [Catalytic activity/Vol] 173.0 U/L Normal 73.0-393.0 [facility] Comment on above: Performed By: #### E TH, SALYC, ACET, CMP #### [facility] [address] [place] [address] Dr. Erlinda Rivera PREG HCG QUALon 09-07-2022 , QUAL Negative Normal NEGATIVE [facility] Comment on above: Performed By: #### E TH, SALYC, ACET, CMP #### [facility] [address] [place] [address] Dr. Erlinda Rivera PROF 14(COMP METB)on 022 Albumin [Mass/Vol] 3.8 g/dL Normal 3.4-5.0 [facility] Comment on above: Performed By: #### E TH, SALYC, ACET, CMP #### [facility] [address] [place] [address] Dr. Erlinda Rivera Albumin/Globulin [Mass ratio] 0.9 {ratio} Normal [facility] Comment on above: Performed By: #### E TH, SALYC, ACET, CMP #### [facility] [address] [place] [address] Dr. Erlinda Rivera ALP [Catalytic activity/Vol] 75 U/L Normal 46-116 [facility] Comment on above: Performed By: #### E TH, SALYC, ACET, CMP #### [facility] [address] [place] [address] Dr. Erlinda Rivera ALT [Catalytic activity/Vol] 10 U/L Critically low 14-59 [facility] Comment on above: Performed By: #### E TH, SALYC, ACET, CMP #### [facility] [address] [place] [address] Dr. Erlinda Rivera Anion gap [Moles/Vol] 9.7 mmol/L Normal [facility] Comment on above: Performed By: #### E TH, SALYC, ACET, CMP #### [facility] [address] [place] [address] Dr. Erlinda Rivera AST [Catalytic activity/Vol] 21 U/L Normal 15-37 [facility] Comment on above: Performed By: #### E TH, SALYC, ACET, CMP #### [facility] [address] [place] [address] Dr. Erlinda Rivera Bilirubin [Mass/Vol] 0.4 mg/dL Normal 0.2-1.0 [facility] Comment on above: Performed By: #### E TH, SALYC, ACET, CMP #### [facility] [address] [address] [address] Erlinda Rivera Calcium [Mass/Vol] 8.8 mg/dL Normal 8.5-10.1 [facility] Comment on above: Performed By: #### E TH, SALYC, ACET, CMP #### [facility] [address] [address] [address] Erlinda Rivera Chloride [Moles/Vol] 103 mmol/L Normal 98-107 [facility] Comment on above: Performed By: #### E TH, SALYC, ACET, CMP #### [facility] [address] [address] [address] Erlinda Rivera CO2 [Moles/Vol] 28.8 mmol/L Normal 21.0-32.0 [facility] Comment on above: Performed By: #### E TH, SALYC, ACET, CMP #### [facility] [address] [place] [address] Dr. Erlinda Rivera Creatinine [Mass/Vol] 0.86 mg/dL Normal 0.55-1.02 [facility] Comment on above: Performed By: #### E , SALYC, ACET, CMP #### [facility] [address] [address] [address] Erlinda Rivera EGFR-AF VENEZUELAN >60 Normal >=60 [facility] Comment on above: Performed By: #### E TH, SALYC, ACET, CMP #### [facility] [address] [address] [address] Erlinda Rivera EGFR-NON AF VENEZUELAN >60 Normal >=60 [facility] Comment on above: Performed By: #### E TH, SALYC, ACET, CMP #### [facility] [address] [address] [address] Erlinda Rivera Globulin (S) [Mass/Vol] 4.1 g/dL Normal T [facility] Comment on above: Performed By: #### E TH, SALYC, ACET, CMP #### [facility] [address] [address] [address] Erlinda Rivera Glucose [Mass/Vol] 79 mg/dL Normal 74-106 [facility] Comment on above: Performed By: #### E TH, SALYC, ACET, CMP #### [facility] [address] [place] [address] Dr. Erlinda Rivera Potassium [Moles/Vol] 4.5 mmol/L Normal 3.5-5.1 [facility] Comment on above: Performed By: #### E TH, SALYC, ACET, CMP #### [facility] [address] [place] [address] Dr. Erlinda Rivera Protein [Mass/Vol] 7.9 g/dL Normal 6.4-8.2 [facility] Comment on above: Performed By: #### E TH, SALYC, ACET, CMP #### [facility] [address] [place] [address] Dr. Erlinda Rivera Sodium [Moles/Vol] 137 mmol/L Normal 136-145 [facility] Comment on above: Performed By: #### E TH, SALYC, ACET, CMP #### [facility] [address] [place] [address] Dr. Erlinda Rivera Urea nitrogen [Mass/Vol] 12.0 mg/dL Normal 7.0-18.0 [facility] Comment on above: Performed By: #### E TH, SALYC, ACET, CMP #### [facility] [address] [place] [address] Dr. Erlinda Rivera Urea nitrogen/Creatinine [Mass ratio] 14.0 mg/mg Normal [facility] Comment on above: Performed By: #### E TH, SALYC, ACET, CMP #### [facility] [address] [place] [address] Dr. Erlinda Rivera URINE MICROSCOPIC ONLYon BACTERIA SMALL Abnormal NONE SEEN [facility] Comment on above: Performed By: #### GHASSAN SOTELO #### [facility] [address] [place] [address] Dr. Erlinda Rivera Bacteria identified Cx Nom (U) INDICATED Normal [facility] Comment on above: Performed By: #### SEBASTIÁN SOTELORO #### [facility] [address] [place] [address] Dr. Erlinda Rivera CAST NONE SEEN Normal NONE SEEN [facility] Comment on above: Performed By: #### E RUR, UMICRO #### [facility] [address] [place] [address] Dr. Erlinda Rivera Crystals LM Nom (Urine sed) NONE SEEN Normal NONE SEEN [facility] Comment on above: Performed By: #### E RUR, UMICRO #### [facility] [address] [place] [address] Dr. Erlinda Rivera Epithelial cells LM Ql (Urine sed) MODERATE Abnormal NONE SEEN /RARE [facility] Comment on above: Performed By: #### E RUR, UMICRO #### [facility] [address] [place] [address] Dr. Erlinda Rivera MUCOUS SMALL Abnormal NONE SEEN [facility] Comment on above: Performed By: #### E RUR, UMICRO #### [facility] [address] [place] [address] Dr. Erlinda Rivera RBC 2-5 Abnormal 0-2 [facility] Comment on above: Performed By: #### E RUR, UMICRO #### [facility] [address] [place] [address] Dr. Erlinda Rivera WBC 10-20 Abnormal NONE SEEN [facility] Comment on above: Performed By: #### E RUR, UMICRO #### [facility] [address] [place] [address] Dr. Erlinda Rivera Bilirubin Test strip Ql (U)O rdered By: Olvin Rollins on 08-31-2022 Bilirubin Ql (U) Negative Negative [facility] Color Auto (U)Ordered By: Ab filiberto Rollins on 08-31-2022 Color (U) Yellow Yellow [facility] Ketones Auto test strip (U) [Mass/Vol]Ordered By: Olvin Rollins on 08-31-2022 Ketones (U) [Mass/Vol] Negative Negative [facility] Nitrite Test strip Ql (U)Ord ered By: Olvin Rollins on 08-31-2022 Nitrite Ql (U) Negative Negative [facility] Protein Auto test strip (U) [Mass/Vol]Ordered By: Olvin Rollins on 08-31-2022 Protein (U) [Mass/Vol] Negative Negative [facility] Specific gravity Auto test s trip (U) [Rel density]Ordered By: Olvin Rollins on 08-31-2022 Specific gravity (U) [Rel density] 1.006 1.001-1.030 [facility] Urine clarity by refractomet ry automatedOrdered By: Olvin Rollins on 08-31-2022 Clarity Refractometry automated (U) Clear Clear [facility] Urine glucose measurement by automated test strip (mass/volume)Ordered By: Olvin Rollins on 08-31-2022 Glucose Auto test strip (U) [Mass/Vol] Normal mg/dL Normal [facility] Urine hemoglobin detection b y automated test stripOrdered By: Olvin Rollins on 08-31-2022 Hemoglobin Auto test strip Ql (U) Negative Negative [facility] Urine leukocyte esterase det ection by automated test stripOrdered By: Olvin Rollins on 08-31-2022 Leukocyte esterase Auto test strip Ql (U) Negative Negative [facility] Urobilinogen Auto test strip (U) [Mass/Vol]Ordered By: Olvin Rollins on 08-31-2022 Urobilinogen (U) [Mass/Vol] Normal mg/dL Normal [facility] pH Auto test strip (U)Ordere d By: Olvin Rollins on 08-31-2022 pH (U) 6.5 [pH] 5.0-9.0 [facility] Cholesterol [Mass/volume] in Serum or PlasmaOrdered By: Miah Abreu on 08-30-2022 Cholesterol [Mass/Vol] 153 mg/dL 140-200 [facility] Comment on above: Chol less than 200 m g/dl low riskChol 201-239 mg/dl borderline riskChol 240 mg/dl and greater high risk Cholesterol in LDL Calc [Mas s/Vol]Ordered By: Miah Abreu on 08-30-2022 Cholesterol in LDL [Mass/Vol] 82 mg/dL 0-100 [facility] Comment on above: LDL ATP III CLASSIFI CATIONLDL less than 100 mg/dL OptimalLDL 100-129 mg/dL Near or above optimalLDL 130-159 mg/dL Borderline highLDL 160-189 mg/dL HighLDL greater than 189 mg/dL Very high Cholesterol in VLDL Calc [Ma ss/Vol]Ordered By: Miah Abreu on 08-30-2022 Cholesterol in VLDL [Mass/Vol] 10 mg/dL [facility] No Panel InformationOrdered By: Miah Abreu on 08-30-2022 25-Hydroxy Vitamin D Total 40.5 ng/mL 30-100 [facility] Comment on above: VITAMIN D [...] Cholesterol in HDL [Mass/Vol] 61 mg/dL 35-85 [facility] Comment on above: HDL CHOL ATP-III CLA SSIFICATION Cardiovascular RiskHDL > or equal to 60 mg/dL LOWHDL < 40 mg/dL HIGH Serum or plasma total choles terol/high density lipoprotein (HDL) cholesterol mass ratOrdered By: Miah Abreu on 08-30-2022 Cholesterol.total/Rachel sterol in HDL [Mass ratio] 2.5 {ratio} <5.0 [facility] TSH DL <= 0.005 mIU/L QnOrde red By: Miah Abreu on 08-30-2022 TSH Qn 0.98 m[IU]/L 0.45-5.33 [facility] Triglyceride [Mass/volume] i n Serum or PlasmaOrdered By: Miah Abreu on 08-30-2022 Triglyceride [Mass/Vol] 52 mg/dL 35-149 [facility] Comment on above: TRIG ATP III CLASSIF ICATIONTRIG less than 150 mg/dL NormalTRIG 150-199 mg/dL Borderline highTRIG 200-500 mg/dL High TRIG greater than 500 mg/dL Very highStandard traceable to the Center for Disease Conrtrol and Prevention (CDC) test method. Cholesterol [Mass/volume] in Serum or PlasmaOrdered By: Miah Abreu on 06-07-2022 Cholesterol [Mass/Vol] 156 mg/dL 140-200 [facility] Comment on above: Chol less than 200 m g/dl low risk Chol 201-239 mg/dl borderline risk Chol 240 mg/dl and greater high risk Chol less than 200 m g/dl low riskChol 201-239 mg/dl borderline riskChol 240 mg/dl and greater high risk Cholesterol in LDL Calc [Mas s/Vol]Ordered By: Miah Abreu on 06-07-2022 Cholesterol in LDL [Mass/Vol] 89 mg/dL 0-100 [facility] Comment on above: LDL ATP [...] 06-07-2022 Cholesterol in VLDL [Mass/Vol] 20 mg/dL [facility] No Panel InformationOrdered By: Miah Abreu on 06-07-2022 25-Hydroxy Vitamin D Total 62.5 ng/mL 30-100 [facility] Comment on above: VITAMIN D STATUS 25( [place])VITAMIN D RANGE (ng/mL) Deficient <20 Insufficient 20 to <30 Sufficient 30 to 100 Reference: Roque MF,Jhony MEDINA, Janina LAYTON, et al. [...] Cholesterol in HDL [Mass/Vol] 47 mg/dL 35-85 [facility] Comment on above: HDL CHOL [...] in HDL [Mass ratio] 3.3 {ratio} <5.0 [facility] TSH DL <= 0.005 mIU/L QnOrde red By: Miah Abreu on 06-07-2022 TSH Qn 1.54 m[IU]/L 0.45-5.33 [facility] Triglyceride [Mass/volume] i n Serum or PlasmaOrdered By: Miah Abreu on 06-07-2022 Triglyceride [Mass/Vol] 101 mg/dL 35-149 [facility] Comment on above: TRIG ATP III CLASSIF [...] 06-06-2022 Acetaminophen [Mass/Vol] ug/mL Critically low 10.0-30.0 [facility] Comment on above: Performed By: #### E TH, SALYC, ACET, CMP #### [facility] [address] [place] [address] Dr. Erlinda Rivera CBC AUTO DIFFon 06-06-2022 BASO # 0.0 103/ul Normal 0.0-0.1 [facility] Comment on above: Performed By: #### C BC #### [facility] [address] [place] [address] Dr. Erlinda Rivera Basophils/100 WBC (Bld) 0.3 % Normal 0.2-2.0 [facility] Comment on above: Performed By: #### C BC #### [facility] [address] [place] [address] Dr. Erlinda Rivera EO # 0.1 103/ul Normal 0.0-0.7 [facility] Comment on above: Performed By: #### C BC #### [facility] [address] [place] [address] Dr. Erlinda Rivera Eosinophils/100 WBC (Bld) 1.7 % Normal 0.9-7.0 [facility] Comment on above: Performed By: #### C BC #### [facility] [address] [place] [address] Dr. Erlinda Rivera Erythrocyte distribution width (RBC) [Ratio] 11.9 % Normal 11.0-15.0 [facility] Comment on above: Performed By: #### C BC #### [facility] [address] [place] [address] Dr. Erlinda Rivera Hematocrit (Bld) [Volume fraction] 37.3 % Normal 36.0-48.0 [facility] Comment on above: Performed By: #### C BC #### [facility] [address] [place] [address] Dr. Erlinda Rivera Hemoglobin (Bld) [Mass/Vol] 12.8 g/dL Normal 12.0-16.0 [facility] Comment on above: Performed By: #### C BC #### [facility] [address] [place] [address] Dr. Erlinda Rivera IG # 0.01 10e3/ul Normal 0.00-0.03 [facility] Comment on above: Performed By: #### C BC #### [facility] [address] [place] [address] Dr. Erlinda Rivera IG % 0.2 % Normal 0.0-0.5 [facility] Comment on above: Performed By: #### C BC #### [facility] [address] [place] [address] Dr. Erlinda Rivera LYMPH # 1.5 103/ul Normal 1.2-3.8 [facility] Comment on above: Performed By: #### C BC #### [facility] [address] [place] [address] Dr. Erlinda Rivera Lymphocytes/100 WBC (Bld) 25.7 % Normal 20.5-60.0 [facility] Comment on above: Performed By: #### C BC #### [facility] [address] [place] [address] Dr. Erlinda Rivera MANUAL DIFF REQ NO Normal [facility] Comment on above: Performed By: #### C BC #### [facility] [address] [place] [address] Dr. Erlinda Rivera MCH (RBC) [Entitic mass] 33.3 pg Normal 26.7-34.0 [facility] Comment on above: Performed By: #### C BC #### [facility] [address] [place] [address] Dr. Erlinda Rivera MCHC (RBC) [Mass/Vol] 34.3 g/dL Normal 29.9-35.2 [facility] Comment on above: Performed By: #### C BC #### [facility] [address] [place] [address] Dr. Erlinda Rivera MCV (RBC) [Entitic vol] 97.1 fL Normal 81.0-99.0 [facility] Comment on above: Performed By: #### C BC #### [facility] [address] [place] [address] Dr. Erlinda Rivera MONO # 0.5 103/ul Normal 0.3-0.8 [facility] Comment on above: Performed By: #### C BC #### [facility] [address] [place] [address] Dr. Erlinda Rivera Monocytes/100 WBC (Bld) 8.2 % Normal 1.7-12.0 [facility] Comment on above: Performed By: #### C BC #### [facility] [address] [place] [address] Dr. Erlinda Rivera NEUT # 3.7 103/ul Normal 1.4-6.5 [facility] Comment on above: Performed By: #### C BC #### [facility] [address] [place] [address] Dr. Erlinda Rivera Neutrophils/100 WBC (Bld) 63.9 % Normal 43.0-75.0 [facility] Comment on above: Performed By: #### C BC #### [facility] [address] [place] [address] Dr. Erlinda Rivera Platelet mean volume (Bld) [Entitic vol] 10.7 fL Normal 9.5-13.5 [facility] Comment on above: Performed By: #### C BC #### [facility] [address] [place] [address] Dr. Erlinda Rivera PLT 224 103/ul Normal 150-450 [facility] Comment on above: Performed By: #### C BC #### [facility] [address] [place] [address] Dr. Erlinda Rivera RBC 3.84 106/ul Critically low 4.20-5.40 [facility] Comment on above: Performed By: #### C BC #### [facility] [address] [place] [address] Dr. Erlinda Rivera WBC 5.7 103/ul Normal 4.0-11.0 [facility] Comment on above: Performed By: #### C BC #### [facility] [address] [place] [address] Dr. Erlinda Rivera CULTURE URINEon 06-06-2022 CULTURE URINE Culture Observations : NO GROWTH. Normal [facility] Comment on above: Performed By: #### C VDTBH #### [facility] [address] [place] [address] Dr. Erlinda Rivera Covid-19 PCR ([facility])on SARS-CoV-2 (COVID-19) RNA TISHA+probe Ql (Unsp spec) Not detected Normal NOT DETECTED [facility] Comment on above: Result Comment: When [...] for this test is supported by the [employer] of Health and Human Service's declaration that [...] used). Performed By: #### C VDTB #### [facility] [address] [place] [address] Dr. Erlinda Rivera DRUG SCREEN RAPID (URINE)on 06-06-2022 AMP Negative Normal NEGATIVE [facility] Comment on above: Performed By: #### GHASSAN SOTELO #### [facility] [address] [place] [address] Dr. Erlinda Rivera BAR Negative Normal NEGATIVE [facility] Comment on above: Performed By: #### GHASSAN SOTELO #### [facility] [address] [place] [address] Dr. Erlinda Rivera BUP Negative Normal NEGATIVE [facility] Comment on above: Performed By: #### GHASSAN SOTELO #### [facility] [address] [place] [address] Dr. Erlinda Rivera BZO Positive Abnormal NEGATIVE [facility] Comment on above: Performed By: #### ESTHER SOTELOICRO #### [facility] [address] [place] [address] Dr. Erlinda Rivera DOUGLAS Positive Abnormal NEGATIVE [facility] Comment on above: Performed By: #### Sakina DE PAZ UMICRO #### [facility] [address] [place] [address] Dr. Erlinda Rivera CUT-OFFS SEE BELOW Normal [facility] Comment on above: Result Comment: AMP (Amphetamine): 500ng/mL, BAR (Barbituates): 200 ng/mL, BZO (Benzodiazepines): 150 ng/mL, BUP (Buprenorphine): 10 ng/mL, DOUGLAS (Cocaine): 150 ng/mL, mAMP (Methamphetamine): 500 ng/mL, MTD (Methadone): 200 ng/mL, OPI (Opiates): 100 ng/mL, OXY (Oxycodone): 100 ng/mL, PCP (Phencyclidine): 25 ng/mL, PPX (Propoxyphene): 300 ng/mL, THC (Cannabinoids): 50 ng/mL, TCA (Trycyclic Antidepressants): 300 ng/mL Performed By: #### ESTHER SOTELOICRO #### [facility] [address] [place] [address] Dr. Erlinda Rivera DRUG CUT HEADER DRUG CLASS TEST SYSTEM CUT-OFF CONCENTRATIONS ARE FOLLOWS: Normal [facility] Comment on above: Performed By: #### Sakina DE PAZ UMICRO #### [facility] [address] [place] [address] Dr. Erlinda Rivera mAMP Negative Normal NEGATIVE [facility] Comment on above: Performed By: #### ESTHER SOTELOICRO #### [facility] [address] [place] [address] Dr. Erlinda Rivera MTD Negative Normal NEGATIVE [facility] Comment on above: Performed By: #### ESTHER SOTELOICRO #### [facility] [address] [place] [address] Dr. Erlinda Rivera OPI Negative Normal NEGATIVE [facility] Comment on above: Performed By: #### ESTHER SOTELOICRO #### [facility] [address] [place] [address] Dr. Erlinda Rivera OXY Negative Normal NEGATIVE [facility] Comment on above: Performed By: #### E BETTER UMICRO #### [facility] [address] [place] [address] Dr. Erlinda Rivera PCP Negative Normal NEGATIVE [facility] Comment on above: Performed By: #### E RUR, UMICRO #### [facility] [address] [place] [address] Dr. Erlinda Rivera PPX Negative Normal NEGATIVE [facility] Comment on above: Performed By: #### E RUR, UMICRO #### [facility] [address] [place] [address] Dr. Erlinda Rivera TCA Negative Normal NEGATIVE [facility] Comment on above: Performed By: #### Sakina DE PAZ UMICRO #### [facility] [address] [place] [address] Dr. Erlinda Rivera THC Positive Abnormal NEGATIVE [facility] Comment on above: Performed By: #### Sakina DE PAZ UMICRO #### [facility] [address] [place] [address] Dr. Erlinda Rivera ER URINE PROFILEon 2 Bilirubin Ql (U) Negative Normal NEGATIVE [facility] Comment on above: Performed By: #### Sakina DE PAZ UMICRO #### [facility] [address] [place] [address] Dr. Erlinda Rivera Clarity (U) SL CLOUDY Abnormal CLEAR [facility] Comment on above: Performed By: #### Sakina DE PAZ UMICRO #### [facility] [address] [place] [address] Dr. Erlinda Rivera Color (U) LT. YELLOW Normal YELLOW [facility] Comment on above: Performed By: #### Sakina DE PAZ UMICRO #### [facility] [address] [place] [address] Dr. Erlinda ALFONSO A micrscopic examination will be performed if indicated. Normal [facility] Comment on above: Performed By: #### Sakina DE PAZ UMICRO #### [facility] [address] [place] [address] Dr. Erlinda Rivera Glucose Ql (U) Negative Normal NEGATIVE [facility] Comment on above: Performed By: #### Sakina DE PAZ UMICRO #### [facility] [address] [place] [address] Dr. Erlinda Rivera Hemoglobin Ql (U) Negative Normal NEGATIVE [facility] Comment on above: Performed By: #### Sakina DE PAZ UMICRO #### [facility] [address] [place] [address] Dr. Erlinda Rivera Ketones Ql (U) Negative Normal NEGATIVE [facility] Comment on above: Performed By: #### Sakina DE PAZ UMICRO #### [facility] [address] [place] [address] Dr. Erlinda Rivera LEUKOCYTES SMALL Abnormal NEGATIVE [facility] Comment on above: Performed By: #### Sakina DE PAZ UMICRO #### [facility] [address] [place] [address] Dr. Erlinda Rivera Nitrite Ql (U) Negative Normal NEGATIVE [facility] Comment on above: Performed By: #### Sakina DE PAZ UMICRO #### [facility] [address] [place] [address] Dr. Erlinda Rivera pH (U) 6.0 [pH] Normal 5-9 [facility] Comment on above: Performed By: #### Sakina DE PAZ UMICRO #### [facility] [address] [place] [address] Dr. Erlinda Rivera SPEC GRAVITY 1.020 Normal 1.005-<=1.025 [facility] Comment on above: Performed By: #### Sakina DE PAZ UMICRO #### [facility] [address] [place] [address] Dr. Erlinda Rivera UA PROTEIN Negative Normal NEGATIVE/ TRACE [facility] Comment on above: Performed By: #### Sakina DE PAZ UMICRO #### [facility] [address] [place] [address] Dr. Erlinda Rivera UR MICRO IND INDICATED Normal [facility] Comment on above: Performed By: #### Sakina DE PAZ UMICRO #### [facility] [address] [place] [address] Dr. Erlinda Rivera Urobilinogen Qn (U) 0.2 {Shannan'U}/dL Normal 0.2 - 1. 0 [facility] Comment on above: Performed By: #### E RUR UMICRO #### [facility] [address] [place] [address] Dr. Erlinda Rivera ETHANOL (BLD ALC)on 06-06-20 22 ALC NOTE NOTE: 80 mg/dl is th e legal limit for a blood alcohol level Normal [facility] Comment on above: Performed By: #### E TH, SALYC, ACET, CMP #### [facility] [address] [place] [address] Dr. Erlinda Rivera Ethanol [Mass/Vol] mg/dL Normal [facility] Comment on above: Performed By: #### E TH, SALYC, ACET, CMP #### [facility] [address] [place] [address] Dr. Erlinda Rivera URon 06-06-2022 , QUAL Negative Normal NEGATIVE [facility] Comment on above: Performed By: #### P REGU #### [facility] [address] [place] [address] Dr. Erlinda Rivera PROF 14(COMP METB)on 022 Albumin [Mass/Vol] 4.2 g/dL Normal 3.4-5.0 [facility] Comment on above: Performed By: #### E TH, SALYC, ACET, CMP #### [facility] [address] [place] [address] Dr. Erlinda Rivera Albumin/Globulin [Mass ratio] 1.2 {ratio} Normal [facility] Comment on above: Performed By: #### E TH, SALYC, ACET, CMP #### [facility] [address] [place] [address] Dr. Erlinda Rivera ALP [Catalytic activity/Vol] 71 U/L Normal 46-116 [facility] Comment on above: Performed By: #### E TH, SALYC, ACET, CMP #### [facility] [address] [address] [address] Erlinda Rivera ALT [Catalytic activity/Vol] 91 U/L Critically high 14-59 [facility] Comment on above: Performed By: #### E TH, SALYC, ACET, CMP #### [facility] [address] [address] [address] Erlinda Rivera Anion gap [Moles/Vol] 13.9 mmol/L Normal Th [facility] Comment on above: Performed By: #### E TH, SALYC, ACET, CMP #### [facility] [address] [address] [address] Erlinda Rivera AST [Catalytic activity/Vol] 81 U/L Critically high 15-37 [facility] Comment on above: Performed By: #### E TH, SALYC, ACET, CMP #### [facility] [address] [place] [address] Dr. Erlinda Rivera Bilirubin [Mass/Vol] 0.4 mg/dL Normal 0.2-1.0 [facility] Comment on above: Performed By: #### E , SALYC, ACET, CMP #### [facility] [address] [address] [address] Erlinda Rivera Calcium [Mass/Vol] 9.1 mg/dL Normal 8.5-10.1 [facility] Comment on above: Performed By: #### E TH, SALYC, ACET, CMP #### [facility] [address] [address] [address] Erlinda Rivera Chloride [Moles/Vol] 105 mmol/L Normal 98-107 [facility] Comment on above: Performed By: #### E TH, SALYC, ACET, CMP #### [facility] [address] [place] [address] Dr. Erlinda Rivera CO2 [Moles/Vol] 28.3 mmol/L Normal 21.0-32.0 [facility] Comment on above: Performed By: #### E TH, SALYC, ACET, CMP #### [facility] [address] [place] [address] Dr. Erlinda Rivera Creatinine [Mass/Vol] 0.86 mg/dL Normal 0.55-1.02 [facility] Comment on above: Performed By: #### E TH, SALYC, ACET, CMP #### [facility] [address] [place] [address] Dr. Erlinda Rivera EGFR-AF VENEZUELAN >60 Normal >=60 [facility] Comment on above: Performed By: #### E TH, SALYC, ACET, CMP #### [facility] [address] [place] [address] Dr. Erlinda Rivera EGFR-NON AF VENEZUELAN >60 Normal >=60 [facility] Comment on above: Performed By: #### E TH, SALYC, ACET, CMP #### [facility] [address] [place] [address] Dr. Erlinda Rivera Globulin (S) [Mass/Vol] 3.4 g/dL Normal T [facility] Comment on above: Performed By: #### E TH, SALYC, ACET, CMP #### [facility] [address] [place] [address] Dr. Erlinda Rivera Glucose [Mass/Vol] 94 mg/dL Normal 74-106 [facility] Comment on above: Performed By: #### E TH, SALYC, ACET, CMP #### [facility] [address] [place] [address] Dr. Erlinda Rivera Potassium [Moles/Vol] 4.2 mmol/L Normal 3.5-5.1 [facility] Comment on above: Performed By: #### E TH, SALYC, ACET, CMP #### [facility] [address] [place] [address] Dr. Erlinda Rivera Protein [Mass/Vol] 7.6 g/dL Normal 6.4-8.2 [facility] Comment on above: Performed By: #### E TH, SALYC, ACET, CMP #### [facility] [address] [place] [address] Dr. Erlinda Rivera Sodium [Moles/Vol] 143 mmol/L Normal 136-145 [facility] Comment on above: Performed By: #### E TH, SALYC, ACET, CMP #### [facility] [address] [place] [address] Dr. Erlinda Rivera Urea nitrogen [Mass/Vol] 10.0 mg/dL Normal 7.0-18.0 [facility] Comment on above: Performed By: #### E TH, SALYC, ACET, CMP #### [facility] [address] [place] [address] Dr. Erlinda Rivera Urea nitrogen/Creatinine [Mass ratio] 11.6 mg/mg Normal [facility] Comment on above: Performed By: #### E TH, SALYC, ACET, CMP #### [facility] [address] [place] [address] Dr. Erlinda Rivera SALICYLATEon 06-06-2022 SALICYLATE 3.5 mg/dL Normal <=19.9 [facility] Comment on above: Performed By: #### E TH, SALYC, ACET, CMP #### [facility] [address] [place] [address] Dr. Erlinda Rivera URINE MICROSCOPIC ONLYon BACTERIA SMALL Abnormal NONE SEEN [facility] Comment on above: Performed By: #### E RUR, UMICRO #### [facility] [address] [place] [address] Dr. Erlinda Rivera Bacteria identified Cx Nom (U) INDICATED Normal [facility] Comment on above: Performed By: #### E RUR, UMICRO #### [facility] [address] [place] [address] Dr. Erlinda Rivera CAST NONE SEEN Normal NONE SEEN [facility] Comment on above: Performed By: #### E RUR, UMICRO #### [facility] [address] [place] [address] Dr. Erlinda Rivera Crystals LM Nom (Urine sed) NONE SEEN Normal NONE SEEN [facility] Comment on above: Performed By: #### E RUR, UMICRO #### [facility] [address] [place] [address] Dr. Erlinda Rivera Epithelial cells LM Ql (Urine sed) FEW Abnormal NONE SEEN /RARE [facility] Comment on above: Performed By: #### E RUR, UMICRO #### [facility] [address] [address] [address] Erlinda Rivera MUCOUS NONE SEEN Normal NONE SEEN [facility] Comment on above: Performed By: #### SEBASTIÁN SOTELORO #### [facility] [address] [address] [address] Erlinda Rivera RBC 0-2 Normal 0-2 [facility] Comment on above: Performed By: #### SEBASTIÁN SOTELORO #### [facility] [address] [address] [address] Erlinda Rivera WBC 2-5 Abnormal NONE SEEN [facility] Comment on above: Performed By: #### GHASSAN SOTELO #### [facility] [address] [place] [address] Dr. Erlinda Rivera HCV RNA,Quant,PCRon 04-08-20 22 HCV Quant 99,000 IU/mL Normal [facility] Comment on above: Performed By: #### H CVQN #### [address] [address] Hybrid Technologist: Gee Soriano MD [facility] [address] [place] [address] [place] [address] Hybrid Technologist: Kelli Martel MD #### CBC, TSH, CP #### [facility] [address] [place], [place] [id number] Hybrid Technologist: Kelli Martel MD #### HIVCMB, PHEP, TREP, SWCGP, FT4 #### [address] [place] [address] Hybrid Technologist: Gee Soriano MD HCV RNA,Quant Detected Abnormal NOTDET [facility] Comment on above: Result Comment: HCV RNA [...] Department Performed By: #### H CVQN #### [address] [address] Hybrid Technologist: Gee Soriano MD [address] [place] [address] Hybrid Technologist: Kelli Martel MD #### CBC, TSH, CP #### [address] [place] [address] Hybrid Technologist: Kelli Martel MD #### HIVCMB, PHEP, TREP, SWCGP, FT4 #### [address] [address] Hybrid Technologist: Gee Soriano MD HCV,RNA Log 5.00 Log IU/mL [facility] Comment on above: Performed By: #### H CVQN #### [address] [address] Hybrid Technologist: Gee Soriano MD [address] [place] [address] Hybrid Technologist: Kelli Martel MD #### CBC, TSH, CP #### [address] [place] [address] Hybrid Technologist: Kelli Martel MD #### HIVCMB, PHEP, TREP, SWCGP, FT4 #### [address] [address] Hybrid Technologist: Gee Soriano MD Chlamydia/GC,DNA Ampon 04-07 Chlamydia Probe Negative Normal NEG [facility] Comment on above: Result Comment: CHLA [...] target. Performed By: #### H CVQN #### [address] [place] [address] Hybrid Technologist: Gee Soriano MD [address] [place] [address] Hybrid Technologist: Kelli Martel MD #### CBC, TSH, CP #### [address] [place] [address] Hybrid Technologist: Kelli Martel MD #### HIVCMB, PHEP, TREP, SWCGP, FT4 #### [address] [address] Hybrid Technologist: Gee Soriano MD Gonorrhea Probe Negative Normal NEG [facility] Comment on above: Result Comment: NEIS SERIA [...] target. Performed By: #### H CVQN #### [address] [address] Hybrid Technologist: Gee Soriano MD [address] [place], [place] [id number] Hybrid Technologist: Kelli Martel MD #### CBC, TSH, CP #### [address] [place], [place] [address] Hybrid Technologist: Kelli Martel MD #### HIVCMB, PHEP, TREP, SWCGP, FT4 #### [address] [address] Hybrid Technologist: MD LEILANI Martellon 04-06-2022 Erythrocyte distribution width (RBC) [Ratio] 12.4 % Normal 11.8-14.4 [facility] Comment on above: Performed By: #### H CVQN #### [address] [address] Hybrid Technologist: Gee Soriano MD [address] [place] [id number] Hybrid Technologist: Kelli Martel MD #### CBC, TSH, CP #### [address] [place] [id number] Hybrid Technologist: Kelli Martel MD #### HIVCMB, PHEP, TREP, SWCGP, FT4 #### [address] [address] Hybrid Technologist: Gee Soriano MD Hematocrit (Bld) [Volume fraction] 39.3 % Normal 36.3-47.1 [facility] Comment on above: Performed By: #### H CVQN #### [address] [address] Hybrid Technologist: Gee Soriano MD [address] [place] [id number] Hybrid Technologist: Kelli Martel MD #### CBC, TSH, CP #### [address] [place] [address] Hybrid Technologist: Kelli Martel MD #### HIVCMB, PHEP, TREP, SWCGP, FT4 #### [address] [address] Hybrid Technologist: Gee Soriano MD Hemoglobin (Bld) [Mass/Vol] 12.5 g/dL Normal 11.9-15.1 [facility] Comment on above: Performed By: #### H CVQN #### [address] [address] Hybrid Technologist: Gee Soriano MD [address] [place], [place] [id number] Hybrid Technologist: Kelli Martel MD #### CBC, TSH, CP #### [address] [place], [place] [id number] Hybrid Technologist: Kelli Martel MD #### HIVCMB, PHEP, TREP, SWCGP, FT4 #### [address] [address] Hybrid Technologist: Gee Soriano MD MCH (RBC) [Entitic mass] 33.5 pg Normal 25.2-33.5 [facility] Comment on above: Performed By: #### H CVQN #### [address] [address] Hybrid Technologist: Gee Soriano MD [address] [place], [place] [id number] Hybrid Technologist: Kelli Martel MD #### CBC, TSH, CP #### [address] [place], [place] [id number] Hybrid Technologist: Kelli Martel MD #### HIVCMB, PHEP, TREP, SWCGP, FT4 #### [address] [address] Hybrid Technologist: Gee Soriano MD MCHC (RBC) [Mass/Vol] 31.8 g/dL Normal 28.4-34.8 [facility] Comment on above: Performed By: #### H CVQN #### [address] [address] Hybrid Technologist: Gee Soriano MD [address] [place], [place] [id number] Hybrid Technologist: Kelli Martel MD #### CBC, TSH, CP #### [address] [place] [address] Hybrid Technologist: Kelli Martel MD #### HIVCMB, PHEP, TREP, SWCGP, FT4 #### [address] [address] Hybrid Technologist: Gee Soriano MD MCV (RBC) [Entitic vol] 105.4 fL High 82.6-102.9 [facility] Comment on above: Performed By: #### H CVQN #### [address] [address] Hybrid Technologist: Gee Soriano MD [address] [place] [address] Hybrid Technologist: Kelli Martel MD #### CBC, TSH, CP #### [address] [place], [place] [id number] Hybrid Technologist: Kelli Martel MD #### HIVCMB, PHEP, TREP, SWCGP, FT4 #### [address] [address] Hybrid Technologist: Gee Soriano MD NRBC Automated 0.0 per 100 WBC Normal 0.0 [facility] Comment on above: Performed By: #### H CVQN #### [address] [address] Hybrid Technologist: Gee Soriano MD [address] [place], [place] [id number] Hybrid Technologist: Kelli Martel MD #### CBC, TSH, CP #### [address] [place] [id number] Hybrid Technologist: Kelli Martel MD #### HIVCMB, PHEP, TREP, SWCGP, FT4 #### [address] [address] Hybrid Technologist: Gee Soriano MD Platelet mean volume (Bld) [Entitic vol] 10.6 fL Normal 8.1-13.5 [facility] Comment on above: Performed By: #### H CVQN #### [address] [address] Hybrid Technologist: Gee Soriano MD [address] [place] [id number] Hybrid Technologist: Kelli Martel MD #### CBC, TSH, CP #### [address] [place] [phone] Hybrid Technologist: Kelli Martel MD #### HIVCMB, PHEP, TREP, SWCGP, FT4 #### [address] [address] Hybrid Technologist: Gee Soriano MD Platelets (Bld) [#/Vol] 280 10*3/uL Normal 138-453 [facility] Comment on above: Performed By: #### H CVQN #### [address] [address] Hybrid Technologist: Gee Soriano MD [address] [place] [id number] Hybrid Technologist: Kelli Martel MD #### CBC, TSH, CP #### [address] [place] [phone] Hybrid Technologist: Kelli Martel MD #### HIVCMB, PHEP, TREP, SWCGP, FT4 #### [address] [address] Hybrid Technologist: Gee Soriano MD RBC (Bld) [#/Vol] 3.73 10*6/uL Low 3.95-5.11 [facility] Comment on above: Performed By: #### H CVQN #### [address] [place] [address] Hybrid Technologist: Gee Soriano MD [address] [place] [phone] Hybrid Technologist: Kelli Martel MD #### CBC, TSH, CP #### [address] [place] [phone] Hybrid Technologist: Kelli Martel MD #### HIVCMB, PHEP, TREP, SWCGP, FT4 #### [address] [address] Hybrid Technologist: Gee Soriano MD WBC (Bld) [#/Vol] 4.6 10*3/uL Normal 3.5-11.3 [facility] Comment on above: Performed By: #### H CVQN #### [address] [address] Hybrid Technologist: Gee Soriano MD [address] [place] [address] Hybrid Technologist: Kelli Martel MD #### CBC, TSH, CP #### [address] [place] [phone] Hybrid Technologist: Kelli Martel MD #### HIVCMB, PHEP, TREP, SWCGP, FT4 #### [address] [address] Hybrid Technologist: Gee Soriano MD Hematocrit (Bld) [Volume fraction] 39.3 % 36.3 - 47.1 % [facility] Hemoglobin (Bld) [Mass/Vol] 12.5 g/dL 11.9 - 15.1 g/dL [facility] Interpretation and review of laboratory results Abnormal [facility] MCH (RBC) [Entitic mass] 33.5 pg 25.2 - 33.5 pg [facility] MCHC (RBC) [Mass/Vol] 31.8 g/dL 28.4 - 34.8 g/dL [facility] MCV (RBC) [Entitic vol] 105.4 fL High 82.6 - 102.9 fL [facility] NRBC Automated 0.0 0.0 per 100 WBC [facility] Platelet distribution width (Bld) [Ratio] 12.4 % 11.8 - 14.4 % [facility] Platelet mean volume (Bld) [Entitic vol] 10.6 fL 8.1 - 13.5 fL [facility] Platelets (Bld) [#/Vol] 280 10*3/uL [facility] RBC (Bld) [#/Vol] 3.73 10*6/uL Low 3.95 - 5.1 1 m/uL [facility] WBC (Bld) [#/Vol] 4.6 10*3/uL [facility] Comp Metabolic Profon 2021 (cont.) Normal [facility] Comment on above: Result Comment: Aver age GFR for 40-49 years old: 99 mL/min/1.73sq m Chronic Kidney Disease: <60 mL/min/1.73sq m Kidney failure: <15 mL/min/1.73sq m eGFR calculated using average adult body mass. Additional eGFR calculator available at: http://www.[employer]/multiple_crcl_2012.htm Performed By: #### H CVQN #### [facility] [employer] [address] [place] [address] Hybrid Technologist: Gee Soriano MD [facility] [address] [place] [address] Hybrid Technologist: Kelli Martel MD #### CBC, TSH, CP #### [facility] [address] [place] [address] Hybrid Technologist: Kelli Martel MD #### HIVCMB, PHEP, TREP, SWCGP, FT4 #### [address] [address] Hybrid Technologist: Gee Soriano MD Albumin [Mass/Vol] 4.2 g/dL Normal 3.5-5.2 [facility] Comment on above: Performed By: #### H CVQN #### [address] [address] Hybrid Technologist: Gee Soriano MD [address] [place] [address] Hybrid Technologist: Kelli Martel MD #### CBC, TSH, CP #### [address] [place], [place] [id number] Hybrid Technologist: Kelli Martel MD #### HIVCMB, PHEP, TREP, SWCGP, FT4 #### [address] [address] Hybrid Technologist: Gee Soriano MD Albumin/Glob Ratio 1.6 Normal 1.0-2.5 [facility] Comment on above: Performed By: #### H CVQN #### [address] [address] Hybrid Technologist: Gee Soriano MD [address] [place] [id number] Hybrid Technologist: Kelli Martel MD #### CBC, TSH, CP #### [address] [place] [address] Hybrid Technologist: Kelli Martel MD #### HIVCMB, PHEP, TREP, SWCGP, FT4 #### [address] [address] Hybrid Technologist: Gee Soriano MD Alkaline Phos 65 U/L Normal 35-104 [facility] Comment on above: Performed By: #### H CVQN #### [address] [address] Hybrid Technologist: Gee Soriano MD [address] [place] [address] Hybrid Technologist: Kelli Martel MD #### CBC, TSH, CP #### [address] [place] [address] Hybrid Technologist: Kelli Martel MD #### HIVCMB, PHEP, TREP, SWCGP, FT4 #### [address] [address] Hybrid Technologist: Gee Soriano MD ALT [Catalytic activity/Vol] 33 U/L Normal 5-33 [facility] Comment on above: Performed By: #### H CVQN #### [address] [address] Hybrid Technologist: Gee Soriano MD [address] [place], [place] [id number] Hybrid Technologist: Kelli Martel MD #### CBC, TSH, CP #### [address] [place], [place] [id number] Hybrid Technologist: Kelli Martel MD #### HIVCMB, PHEP, TREP, SWCGP, FT4 #### [address] [address] Hybrid Technologist: Gee Soriano MD Anion gap [Moles/Vol] 9 mmol/L Normal 9-17 [facility] Comment on above: Performed By: #### H CVQN #### [address] [address] Hybrid Technologist: Gee Soriano MD [address] [place] [id number] [phone] Hybrid Technologist: Kelli Martel MD #### CBC, TSH, CP #### [address] [place] [address] Hybrid Technologist: Kelli Martel MD #### HIVCMB, PHEP, TREP, SWCGP, FT4 #### [address] [address] Hybrid Technologist: Gee Soriano MD AST [Catalytic activity/Vol] 38 U/L High <32 [facility] Comment on above: Performed By: #### H CVQN #### [address] [address] Hybrid Technologist: Gee Soriano MD [address] [place] [address] Hybrid Technologist: Kelli Martel MD #### CBC, TSH, CP #### [address] [place], [place] [id number] Hybrid Technologist: Kelli Martel MD #### HIVCMB, PHEP, TREP, SWCGP, FT4 #### [address] [address] Hybrid Technologist: Gee Soriano MD Bilirubin [Mass/Vol] 0.23 mg/dL Low 0.3-1.2 [facility] Comment on above: Performed By: #### H CVQN #### [address] [address] Hybrid Technologist: Gee Soriano MD [address] [place] [address] Hybrid Technologist: Kelli Martel MD #### CBC, TSH, CP #### [address] [place], [place] [id number] Hybrid Technologist: Kelli Martel MD #### HIVCMB, PHEP, TREP, SWCGP, FT4 #### [address] [address] Hybrid Technologist: Gee Soriano MD BUN/CRE Ratio 17 Normal 9-20 [facility] Comment on above: Performed By: #### H CVQN #### [address] [address] Hybrid Technologist: Gee Soriano MD [address] [place] [id number] Hybrid Technologist: Kelli Martel MD #### CBC, TSH, CP #### [address] [place] [phone] Hybrid Technologist: Kelli Martel MD #### HIVCMB, PHEP, TREP, SWCGP, FT4 #### [address] [address] Hybrid Technologist: Gee Soriano MD Calcium [Mass/Vol] 8.9 mg/dL Normal 8.6-10.4 [facility] Comment on above: Performed By: #### H CVQN #### [address] [address] Hybrid Technologist: Gee Soriano MD [address] [place] [id number] Hybrid Technologist: Kelli Martel MD #### CBC, TSH, CP #### [address] [place], [place] [id number] Hybrid Technologist: Kelli Martel MD #### HIVCMB, PHEP, TREP, SWCGP, FT4 #### [address] [address] Hybrid Technologist: Gee Soriano MD Chloride [Moles/Vol] 106 mmol/L Normal 98-107 [facility] Comment on above: Performed By: #### H CVQN #### [address] [address] Hybrid Technologist: Gee Soriano MD [address] [place] [address] Hybrid Technologist: Kelli Martel MD #### CBC, TSH, CP #### [address] [place], [place] [phone] Hybrid Technologist: Kelli Martel MD #### HIVCMB, PHEP, TREP, SWCGP, FT4 #### [address] [address] Hybrid Technologist: Gee Soriano MD CO2 [Moles/Vol] 30 mmol/L Normal 20-31 [facility] Comment on above: Performed By: #### H CVQN #### [address] [address] Hybrid Technologist: Gee Soriano MD [address] [place], [place] [id number] Hybrid Technologist: Kelli Martel MD #### CBC, TSH, CP #### [address] [place], [place] [phone] Hybrid Technologist: Kelli Martel MD #### HIVCMB, PHEP, TREP, SWCGP, FT4 #### [address] [address] Hybrid Technologist: Gee Soriano MD Creatinine [Mass/Vol] 0.71 mg/dL Normal 0.50-0.90 [facility] Comment on above: Performed By: #### H CVQN #### [address] [address] Hybrid Technologist: Gee Soriano MD [address] [place], [place] [id number] Hybrid Technologist: Kelli Martel MD #### CBC, TSH, CP #### [address] [place] [address] Hybrid Technologist: Kelli Martel MD #### HIVCMB, PHEP, TREP, SWCGP, FT4 #### [address] [address] Hybrid Technologist: Gee Soriano MD GFR, Amer >60 Normal >60 [facility] Comment on above: Performed By: #### H CVQN #### [address] [address] Hybrid Technologist: Gee Soriano MD [address] [place] [address] Hybrid Technologist: Kelli Martel MD #### CBC, TSH, CP #### [address] [place], [place] [phone] Hybrid Technologist: Kelli Martel MD #### HIVCMB, PHEP, TREP, SWCGP, FT4 #### [address] [address] Hybrid Technologist: Gee Soriano MD GFR,non Amer >60 Normal >60 [facility] Comment on above: Performed By: #### H CVQN #### [address] [address] Hybrid Technologist: Gee Soriano MD [address] [place] [address] Hybrid Technologist: Kelli Martel MD #### CBC, TSH, CP #### [address] [place] [address] Hybrid Technologist: Kelli Martel MD #### HIVCMB, PHEP, TREP, SWCGP, FT4 #### [address] [address] Hybrid Technologist: Gee Soriano MD Glucose [Mass/Vol] 118 mg/dL High 70-99 [facility] Comment on above: Performed By: #### H CVQN #### [address] [address] Hybrid Technologist: Gee Soriano MD [address] [place], [place] [phone] Hybrid Technologist: Kelli Martel MD #### CBC, TSH, CP #### [address] [place], [place] [id number] Hybrid Technologist: Kelli Martel MD #### HIVCMB, PHEP, TREP, SWCGP, FT4 #### [address] [address] Hybrid Technologist: Gee Soriano MD Potassium [Moles/Vol] 3.9 mmol/L Normal 3.7-5.3 [facility] Comment on above: Performed By: #### H CVQN #### [address] [address] Hybrid Technologist: Gee Soriano MD [address] [place], [place] [phone] Hybrid Technologist: Kelli Martel MD #### CBC, TSH, CP #### [address] [place], [place] [id number] Hybrid Technologist: Kelli Martel MD #### HIVCMB, PHEP, TREP, SWCGP, FT4 #### [address] [address] Hybrid Technologist: Gee Soriano MD Protein [Mass/Vol] 6.8 g/dL Normal 6.4-8.3 [facility] Comment on above: Performed By: #### H CVQN #### [address] [address] Hybrid Technologist: Gee Soriano MD [facility] [address] [place] [address] [place] [address] Hybrid Technologist: Kelli Martel MD #### CBC, TSH, CP #### [address] [place], [place] [phone] Hybrid Technologist: Kelli Martel MD #### HIVCMB, PHEP, TREP, SWCGP, FT4 #### [facility] [address] [place] [address] Hybrid Technologist: Gee Soriano MD Sodium [Moles/Vol] 145 mmol/L High 135-144 [facility] Comment on above: Performed By: #### H CVQN #### [address] [address] Hybrid Technologist: Gee Soriano MD [address] [place], [place] [phone] Hybrid Technologist: Kelli Martel MD #### CBC, TSH, CP #### [address] [place], [place] [phone] Hybrid Technologist: Kelli Martel MD #### HIVCMB, PHEP, TREP, SWCGP, FT4 #### [address] [address] Hybrid Technologist: Gee Soriano MD Staging: Normal [facility] Comment on above: Result Comment: Stag e 1: Some kidney damage normal GFR Stage 2: Mild kidney damage GFR 60-89 Stage 3: Moderate kidney damage GFR 30-59 Stage 4: Severe kidney damage GFR 15-29 Stage 5: Severe kidney damage GFR <15 ESRD - chronic treatment by dialysis or transplant Performed By: #### H CVQN #### [facility] [address] [place] [address] Hybrid Technologist: Gee Soriano MD [address] [place] [address] Hybrid Technologist: Kelli Martel MD #### CBC, TSH, CP #### [address] [place] [address] Hybrid Technologist: Kelli Martel MD #### HIVCMB, PHEP, TREP, SWCGP, FT4 #### [facility] [address] [place], [place] [id number] Hybrid Technologist: Gee Soriano MD Urea nitrogen [Mass/Vol] 12 mg/dL Normal 6-20 [facility] Comment on above: Performed By: #### H CVQN #### [facility] [address] [place], [place] 594[address] Hybrid Technologist: Gee Soriano MD [address] [place] [phone] Hybrid Technologist: Kelli Martel MD #### CBC, TSH, CP #### [address] [place] [address] Hybrid Technologist: Kelli Martel MD #### HIVCMB, PHEP, TREP, SWCGP, FT4 #### [facility] [address] [place], [place] [phone] Hybrid Technologist: Gee Soriano MD Comprehensive Metabolic Pane [facility] 04-06-2022 Albumin [Mass/Vol] 4.2 g/dL 3.5 - 5.2 g/dL [facility] Albumin/Globulin [Mass ratio] 1.6 {ratio} [facility] ALP (Bld) [Catalytic activity/Vol] 65 U/L 35 - 104 U/L [facility] ALT [Catalytic activity/Vol] 33 U/L 5 - 33 U/L [facility] Anion gap [Moles/Vol] 9 mmol/L 9 - 17 mmol/L [facility] AST [Catalytic activity/Vol] 38 U/L High <32 [facility] Bilirubin [Mass/Vol] 0.23 mg/dL Low 0.3 - 1 .2 mg/dL [facility] Calcium [Mass/Vol] 8.9 mg/dL 8.6 - 10. 4 mg/dL [facility] Chloride [Moles/Vol] 106 mmol/L 98 - 10 7 mmol/L [facility] CO2 [Moles/Vol] 30 mmol/L 20 - 31 mmol/L [facility] Creatinine [Mass/Vol] 0.71 mg/dL 0.50 - 0.90 mg/dL [facility] Free PSA/Total PSA [Mass fraction] 6.8 g/dL 6.4 - 8.3 g/dL [facility] GFR >60 >60 mL/min [facility] GFR Non- >60 >60 mL/min [facility] Glucose [Mass/Vol] 118 mg/dL High 70 - 99 mg/dL [facility] Interpretation and review of laboratory results Abnormal [facility] Potassium [Moles/Vol] 3.9 mmol/L 3.7 - 5.3 mmol/L [facility] Sodium [Moles/Vol] 145 mmol/L High 135 - 144 mmol/L [facility] Urea nitrogen (BldV) [Mass/Vol] 12 mg/dL 6 - 20 mg/dL [facility] Urea nitrogen/Creatinine (Bld) [Mass ratio] 17 [facility] HCV RNA,Quant,PCRon 04-06-20 22 Source .PLASMA Normal [facility] Comment on above: Performed By: #### H CVQN #### [facility] [employer] [facility] [place], [place] [id number] Hybrid Technologist: Gee Soriano MD [facility] [address] [place] [address] [place] [address] Hybrid Technologist: Kelli Martel MD #### CBC, TSH, CP #### [facility] [address] [place] [address] [place] [address] Hybrid Technologist: Kelli Martel MD #### HIVCMB, PHEP, TREP, SWCGP, FT4 #### [facility] [employer] [facility] [place] [address] Hybrid Technologist: Gee Soriano MD HIV Ag/Abon 04-06-2022 HIV Ag/Ab Non-Reactive Normal NR [facility] Comment on above: Result Comment: No l aboratory evidence of HIV infection. If acute HIV infection is suspected, consider testing for HIV-1 RNA. Performed By: #### H CVQN #### [facility] [address] [place] [address] Hybrid Technologist: Gee Soriano MD [address] [place], [place] [phone] Hybrid Technologist: Kelli Martel MD #### CBC, TSH, CP #### [address] [place] [address] Hybrid Technologist: Kelli Martel MD #### HIVCMB, PHEP, TREP, SWCGP, FT4 #### [place] [address] [place] [address] Hybrid Technologist: Gee Soriano MD HIV Screenon 04-06-2022 HIV Ag/Ab Non-Reactive NONREACTIVE [facility] Comment on above: No laboratory eviden ce of HIV infection. If acute HIV infection is suspected, consider testing for HIV-1 RNA. [facility] Hepatitis Acute Brina 04-06 Hep A Ab,IgM Non-Reactive Normal NR [facility] Comment on above: Performed By: #### H CVQN #### [facility] [address] [place] [address] Hybrid Technologist: Gee Soriano MD [address] [place] [address] Hybrid Technologist: Kelli Martel MD #### CBC, TSH, CP #### [address] [place], [place] [phone] Hybrid Technologist: Kelli Martel MD #### HIVCMB, PHEP, TREP, SWCGP, FT4 #### [address] [address] Hybrid Technologist: Gee Soriano MD Hep B Core Ab,IgM Non-Reactive Normal [facility] Comment on above: Performed By: #### H CVQN #### [address] [address] Hybrid Technologist: Gee Soriano MD [address] [place] [phone] Hybrid Technologist: Kelli Martel MD #### CBC, TSH, CP #### [address] [place] [phone] Hybrid Technologist: Kelli Martel MD #### HIVCMB, PHEP, TREP, SWCGP, FT4 #### [address] [address] Hybrid Technologist: Gee Soriano MD Hep B Surf Ag Non-Reactive Normal [facility] Comment on above: Performed By: #### H CVQN #### [address] [address] Hybrid Technologist: Gee Soriano MD [address] [place] [address] Hybrid Technologist: Kelli Martel MD #### CBC, TSH, CP #### [address] [place] [phone] Hybrid Technologist: Kelli Martel MD #### HIVCMB, PHEP, TREP, SWCGP, FT4 #### [address] [address] Hybrid Technologist: Gee Soriano MD Hep C Ab Reactive Abnormal [facility] Comment on above: Result Comment: The [...] Department Performed By: #### H CVQN #### [facility] [employer] [address] [place], [place] [id number] Hybrid Technologist: Gee Soriano MD [facility] [address] [place] [address] [place] [address] Hybrid Technologist: Kelli Martel MD #### CBC, TSH, CP #### [facility] [address] [place] [address] Hybrid Technologist: Kelli Martel MD #### HIVCMB, PHEP, TREP, SWCGP, FT4 #### [facility] [address] [place], [place] [id number] Hybrid Technologist: Gee Soriano MD Hepatitis Panel, Acuteon HAV IgM IA Qn (S) Non-Reactive NONREACTIVE [facility] Hep B Core Ab, IgM Non-Reactive NONREACTIVE [facility] Hepatitis B Surface Ag Non-Reactive NONREACTIVE [facility] Hepatitis C Ab Reactive Abnormal NONREACTIVE [facility] Comment on above: The hepatitis C procedure [...] Interpretation and review of laboratory results Abnormal [facility] Laboratory - Chemistry and C hemistry - challengeon 04-06-2022 GFR/1.73 sq M.predicted MDRD (S/P/Bld) [Vol rate/Area] [facility] Comment on above: Average GFR for 40-4 9 years old: 99 mL/min/1.73sq m Chronic Kidney Disease: <60 mL/min/1.73sq m Kidney failure: <15 mL/min/1.73sq m eGFR calculated using average adult body mass. Additional eGFR calculator available at: http://www.[employer]/multiple_crcl_2012.htm Stage 1: Some kidney damage normal GFR Stage 2: Mild kidney damage GFR 60-89 Stage 3: Moderate kidney damage GFR 30-59 Stage 4: Severe kidney damage GFR 15-29 Stage 5: Severe kidney damage GFR <15 ESRD - chronic treatment by dialysis or transplant No Panel Informationon 04-06 [facility] T. pallidum Abon 04-06-2022 T. pallidum, IgG Non-Reactive NONREACTIVE [facility] Comment on above: T. pallidum antibodies are not detected. There is no serological evidence of infection with T. pallidum (early primary syphilis cannot be excluded). Retest in 2-4 weeks if syphilis is clinically suspect. [facility] T.pallidum Ab Screenon 04-06 T.pallidum Ab Screen Non-Reactive Normal NR [facility] Comment on above: Result Comment: T. pallidum antibodies are not detected. There is no serological evidence of infection with T. pallidum (early primary syphilis cannot be excluded). Retest in 2-4 weeks if syphilis is clinically suspect. Performed By: #### H CVQN #### [facility] [employer] [address] [place] [address] [id number] Hybrid Technologist: Gee Soriano MD [address] [place] [address] Hybrid Technologist: Kelli Martel MD #### CBC, TSH, CP #### [address] [place] [address] Hybrid Technologist: Kelli Martel MD #### HIVCMB, PHEP, TREP, SWCGP, FT4 #### [place] [address] [place], [place] [id number] Hybrid Technologist: Gee Soriano MD T4, Freeon 04-06-2022 Thyroxine, Free 1.13 ng/dL 0.93 - 1.70 ng/dL [facility] TSHon 04-06-2022 TSH Qn 0.77 m[IU]/L [facility] Thyroid Stim. Horm.on 2021 Thyroid Stim. Horm. 0.77 uIU/mL Normal 0.30-5.00 [facility] Comment on above: Performed By: #### H CVQN #### [address] [address] Hybrid Technologist: Gee Soriano MD [address] [place] [phone] Hybrid Technologist: Kelli Martel MD #### CBC, TSH, CP #### [address] [place] [phone] Hybrid Technologist: Kelli Martel MD #### HIVCMB, PHEP, TREP, SWCGP, FT4 #### [address] [id number] Hybrid Technologist: Gee Soriano MD Thyroxine, Freeon 04-06-2022 Thyroxine, Free 1.13 ng/dL Normal 0.93-1.70 [facility] Comment on above: Performed By: #### H CVQN #### [address] [address] Hybrid Technologist: Gee Soriano MD [address] [place] [phone] Hybrid Technologist: Kelli Martel MD #### CBC, TSH, CP #### [address] [place] [address] Hybrid Technologist: Kelli Martel MD #### HIVCMB, PHEP, TREP, SWCGP, FT4 #### [address] [id number] Hybrid Technologist: Gee Soriano MD Trichomonas/Wet Prepon 04-06 Trichomonas/Wet Prep Specimen Descriptio n .VAGINAL SPECIMEN Direct Exam NO YEAST OBSERVED NO TRICHOMONAS SEEN NO CLUE CELLS SEEN Report Status FINAL 04/06/2022 Normal [facility] Comment on above: Performed By: #### W P #### [facility] [address] [place] [address] Hybrid Technologist: Kelli Martel MD Wet prep, genitalon 04-06-20 22 Direct Exam NO YEAST OBSERVED [employer] [facility] [employer] [facility] [employer] Direct Exam NO TRICHOMONAS SEEN [facility] Direct Exam NO CLUE CELLS SEEN [employer] [facility] Specimen Description .VAGINAL SPECIMEN [facility] ER URINE PROFILEon 2 Bilirubin Ql (U) Negative Normal NEGATIVE [facility] Comment on above: Performed By: #### E RUR #### [facility] [address] [place] [address] Dr. Erlinda Rivera Clarity (U) CLEAR Normal CLEAR [facility] Comment on above: Performed By: #### E RUR #### [facility] [address] [place] [address] Dr. Erlinda Rivera Color (U) LT. YELLOW Normal YELLOW [facility] Comment on above: Performed By: #### E RUR #### [facility] [address] [place] [address] Dr. Erlinda ALFONSO A micrscopic examination will be performed if indicated. Normal [facility] Comment on above: Performed By: #### E RUR #### [facility] [address] [place] [address] Dr. Erlinda Rivera Glucose Ql (U) Negative Normal NEGATIVE [facility] Comment on above: Performed By: #### E RUR #### [facility] [address] [place] [address] Dr. Erlinda Rivera Hemoglobin Ql (U) Negative Normal NEGATIVE [facility] Comment on above: Performed By: #### E RUR #### [facility] [address] [place] [address] Dr. Erlinda Rivera Ketones Ql (U) Negative Normal NEGATIVE [facility] Comment on above: Performed By: #### E RUR #### [facility] [address] [place] [address] Dr. Erlinda Rivera LEUKOCYTES Negative Normal NEGATIVE [facility] Comment on above: Performed By: #### E RUR #### [facility] [address] [place] [address] Dr. Erlinda Rivera Nitrite Ql (U) Negative Normal NEGATIVE [facility] Comment on above: Performed By: #### E RUR #### [facility] [address] [place] [address] Dr. Erlinda Rivera pH (U) 7.0 [pH] Normal 5-9 [facility] Comment on above: Performed By: #### E RUR #### [facility] [address] [place] [address] Dr. Erlinda Rivera SPEC GRAVITY <=1.005 Abnormal 1.005-<=1.025 [facility] Comment on above: Performed By: #### E RUR #### [facility] [address] [place] [address] Dr. Erlinda Rivera UA PROTEIN Negative Normal NEGATIVE/ TRACE [facility] Comment on above: Performed By: #### E RUR #### [facility] [address] [place] [address] Dr. Erlinda Rivera UR MICRO IND NOT INDICATED Normal [facility] Comment on above: Performed By: #### E RUR #### [facility] [address] [place] [address] Dr. Erlinda Rivera Urobilinogen Qn (U) 0.2 {Shannan'U}/dL Normal 0.2 - 1. 0 [facility] Comment on above: Performed By: #### E RUR #### [facility] [address] [place] [address] Dr. Erlinda Rivera XR CHEST 2 Von [...] KAYLA NYE Date: 2022-03-24 22:52 Normal [facility] CBC AUTO DIFFon 03-24-2022 BASO # 0.0 103/ul Normal 0.0-0.1 [facility] Comment on above: Performed By: #### E TH, SALYC, ACET, CMP #### [facility] [address] [place] [address] Dr. Erlinda Rivera Basophils/100 WBC (Bld) 0.4 % Normal 0.2-2.0 [facility] Comment on above: Performed By: #### E TH, SALYC, ACET, CMP #### [facility] [address] [place] [address] [address] Erlinda Rivera EO # 0.1 103/ul Normal 0.0-0.7 [facility] Comment on above: Performed By: #### E TH, SALYC, ACET, CMP #### [facility] [address] [address] [address] Erlinda Rivera Eosinophils/100 WBC (Bld) 1.8 % Normal 0.9-7.0 [facility] Comment on above: Performed By: #### E TH, SALYC, ACET, CMP #### [facility] [address] [address] [address] Erlinda Rivera Erythrocyte distribution width (RBC) [Ratio] 12.7 % Normal 11.0-15.0 [facility] Comment on above: Performed By: #### E TH, SALYC, ACET, CMP #### [facility] [address] [address] [address] Erlinda Rivera Hematocrit (Bld) [Volume fraction] 31.6 % Critically low 36.0-48.0 [facility] Comment on above: Performed By: #### E TH, SALYC, ACET, CMP #### [facility] [address] [place] [address] Dr. Erlinda Rivera Hemoglobin (Bld) [Mass/Vol] 10.4 g/dL Critically low 12.0-16.0 [facility] Comment on above: Performed By: #### E TH, SALYC, ACET, CMP #### [facility] [address] [place] [address] Dr. Erlinda Rivera IG # 0.07 10e3/ul Critically high 0.00-0.03 [facility] Comment on above: Performed By: #### E , SALYC, ACET, CMP #### [facility] [address] [place] [address] Dr. Erlinda Rivera IG % 1.2 % Critically high 0.0-0.5 [facility] Comment on above: Performed By: #### E , SALYC, ACET, CMP #### [facility] [address] [place] [address] Dr. Erlinda Rivera LYMPH # 1.3 103/ul Normal 1.2-3.8 [facility] Comment on above: Performed By: #### E , SALYC, ACET, CMP #### [facility] [address] [place] [address] Dr. Erlinda Rivera Lymphocytes/100 WBC (Bld) 23.4 % Normal 20.5-60.0 [facility] Comment on above: Performed By: #### E TH, SALYC, ACET, CMP #### [facility] [address] [place] [address] Dr. Erlinda Rivera MANUAL DIFF REQ NO Normal [facility] Comment on above: Performed By: #### E TH, SALYC, ACET, CMP #### [facility] Laboratory [address] [place] [address] Dr. Erlinda Rivera MCH (RBC) [Entitic mass] 33.8 pg Normal 26.7-34.0 [facility] Comment on above: Performed By: #### E TH, SALYC, ACET, CMP #### [facility] Laboratory [address] [place] [address] Dr. Erlinda Rivera MCHC (RBC) [Mass/Vol] 32.9 g/dL Normal 29.9-35.2 [facility] Comment on above: Performed By: #### E TH, SALYC, ACET, CMP #### [facility] Laboratory [address] [place] [address] Dr. Erlinda Rivera MCV (RBC) [Entitic vol] 102.6 fL Critically high 81.0-99 .0 [facility] Comment on above: Performed By: #### E TH, SALYC, ACET, CMP #### [facility] Laboratory [address] [place] [address] Dr. Erlinda Rivera MONO # 0.4 103/ul Normal 0.3-0.8 [facility] Comment on above: Performed By: #### E TH, SALYC, ACET, CMP #### [facility] Laboratory [address] [place] [address] Dr. Erlinda Rivera Monocytes/100 WBC (Bld) 6.9 % Normal 1.7-12.0 [facility] Comment on above: Performed By: #### E , SALYC, ACET, CMP #### [facility] Laboratory [address] [place] [address] Dr. Erlinda Rivera NEUT # 3.8 103/ul Normal 1.4-6.5 [facility] Comment on above: Performed By: #### E TH, SALYC, ACET, CMP #### [facility] Laboratory [address] [place] [address] Dr. Erlinda Rivera Neutrophils/100 WBC (Bld) 66.3 % Normal 43.0-75.0 [facility] Comment on above: Performed By: #### E TH, SALYC, ACET, CMP #### [facility] Laboratory [address] [place] [address] Dr. Erlinda Rivera Platelet mean volume (Bld) [Entitic vol] 11.4 fL Normal 9.5-13.5 [facility] Comment on above: Performed By: #### E TH, SALYC, ACET, CMP #### [facility] Laboratory [address] [place] [address] Dr. Erlinda Rivera PLT 150 103/ul Normal 150-450 [facility] Comment on above: Performed By: #### E TH, SALYC, ACET, CMP #### [facility] Laboratory [address] [place] [address] Dr. Erlinda Rivera RBC 3.08 106/ul Critically low 4.20-5.40 [facility] Comment on above: Performed By: #### E TH, SALMOUNA, ACET, CMP #### [facility] Laboratory [address] [place] [address] Dr. Erlinda Rivera WBC 5.7 103/ul Normal 4.0-11.0 [facility] Comment on above: Performed By: #### E TH, SONIA, ACET, CMP #### [facility] Laboratory [address] [place] [address] Dr. Erlinda Rivera PROF 14(COMP METB)on 022 Albumin [Mass/Vol] 2.9 g/dL Critically low 3.4-5.0 [facility] Comment on above: Performed By: #### SEBASTIÁN SOTELORO #### [facility] Laboratory [address] [place] [address] Dr. Erlinda Rivera Albumin/Globulin [Mass ratio] 1.0 {ratio} Normal [facility] Comment on above: Performed By: #### SEBASTIÁN SOTELORO #### [facility] Laboratory [address] [place] [address] Dr. Erlinda Rivera ALP [Catalytic activity/Vol] 48 U/L Normal 46-116 [facility] Comment on above: Performed By: #### SEBASTIÁN SOTELORO #### [facility] Laboratory [address] [place] [address] Dr. Erlinda Rivera ALT [Catalytic activity/Vol] 97 U/L Critically high 14-59 [facility] Comment on above: Performed By: #### SEBASTIÁN SOTELORO #### [facility] Laboratory [address] [place] [address] Dr. Erlinda Rivera Anion gap [Moles/Vol] 8.5 mmol/L Normal [facility] Comment on above: Performed By: #### GHASSAN SOTELO #### [facility] Laboratory [address] [place] [address] Dr. Erlinda Rivera AST [Catalytic activity/Vol] 112 U/L Critically high 15-37 [facility] Comment on above: Performed By: #### GHASSAN SOTELO #### [facility] Laboratory [address] [place] [address] Dr. Erlinda Rivera Bilirubin [Mass/Vol] 0.2 mg/dL Normal 0.2-1.0 [facility] Comment on above: Performed By: #### GHASSAN SOTELO #### [facility] Laboratory [address] [place] [address] Dr. Erlinda Rivera Calcium [Mass/Vol] 8.2 mg/dL Critically low 8.5-10.1 [facility] Comment on above: Performed By: #### GHASSAN SOTELO #### [facility] Laboratory [address] [place] [address] Dr. Erlinda Rivera Chloride [Moles/Vol] 106 mmol/L Normal 98-107 [facility] Comment on above: Performed By: #### GHASSAN SOTELO #### [facility] Laboratory [address] [place] [address] Dr. Erlinda Rivera CO2 [Moles/Vol] 29.5 mmol/L Normal 21.0-32.0 [facility] Comment on above: Performed By: #### SEBASTIÁN SOTELORO #### [facility] Laboratory [address] [place] [address] Dr. Erlinda Rivera Creatinine [Mass/Vol] 0.79 mg/dL Normal 0.55-1.02 [facility] Comment on above: Performed By: #### GHASSAN SOTELO #### [facility] Laboratory [address] [place] [address] Dr. Erlinda Rivera EGFR-AF VENEZUELAN >60 Normal >=60 [facility] Comment on above: Performed By: #### SEBASTIÁN SOTELORO #### [facility] Laboratory [address] [place] [address] Dr. Erlinda Rivera EGFR-NON AF VENEZUELAN >60 Normal >=60 [facility] Comment on above: Performed By: #### GHASSAN SOTELO #### [facility] Laboratory [address] [place] [address] Dr. Erlinda Rivera Globulin (S) [Mass/Vol] 3.0 g/dL Normal T [facility] Comment on above: Performed By: #### SEBASTIÁN SOTELORO #### [facility] Laboratory [address] [place] [address] Dr. Erlinda Rivera Glucose [Mass/Vol] 86 mg/dL Normal 74-106 [facility] Comment on above: Performed By: #### GHASSAN SOTELO #### [facility] Laboratory [address] [place] [address] Dr. Erlinda Rivera Potassium [Moles/Vol] 4.0 mmol/L Normal 3.5-5.1 [facility] Comment on above: Performed By: #### SEBASTIÁN SOTELORO #### [facility] Laboratory [address] [place] [address] Dr. Erlinda Rivera Protein [Mass/Vol] 5.9 g/dL Critically low 6.4-8.2 Th [facility] Comment on above: Performed By: #### SEBASTIÁN SOTELORO #### [facility] [address] [place] [address] Dr. Erlinda Rivera Sodium [Moles/Vol] 140 mmol/L Normal 136-145 [facility] Comment on above: Performed By: #### SEBASTIÁN SOTELORO #### [facility] [address] [place] [address] Dr. Erlinda Rivera Urea nitrogen [Mass/Vol] 8.0 mg/dL Normal 7.0-18.0 [facility] Comment on above: Performed By: #### SEBASTIÁN SOTELORO #### [facility] [address] [place] [address] Dr. Erlinda Rivera Urea nitrogen/Creatinine [Mass ratio] 10.1 mg/mg Normal [facility] Comment on above: Performed By: #### GHASSAN SOTELO #### [facility] [address] [address] [address] Erlinda Rivera TSHon 03-24-2022 TSH 1.362 uIU/mL Normal 0.358-3.740 [facility] Comment on above: Performed By: #### GHASSAN SOTELO #### [facility] [address] [id number] Erlinda Rivera Bilirubin Test strip Ql (U)O rdered By: Miah Abreu on 03-21-2022 Bilirubin Ql (U) Negative Negative [facility] Color Auto (U)Ordered By: Haroldo Abreu on 03-21-2022 Color (U) Yellow Yellow [facility] Ketones Auto test strip (U) [Mass/Vol]Ordered By: Miah Abreu on 03-21-2022 Ketones (U) [Mass/Vol] Negative Negative [facility] Nitrite Test strip Ql (U)Ord ered By: Miah Abreu on 03-21-2022 Nitrite Ql (U) Negative Negative [facility] Protein Auto test strip (U) [Mass/Vol]Ordered By: Miah Abreu on 03-21-2022 Protein (U) [Mass/Vol] Negative Negative [facility] Specific gravity Auto test s trip (U) [Rel density]Ordered By: Miah Abreu on 03-21-2022 Specific gravity (U) [Rel density] 1.003 1.001-1.030 [facility] Urine clarity by refractomet ry automatedOrdered By: Miah Abreu on 03-21-2022 Clarity Refractometry automated (U) Clear Clear [facility] Urine glucose measurement by automated test strip (mass/volume)Ordered By: Miah Abreu on 03-21-2022 Glucose Auto test strip (U) [Mass/Vol] Normal mg/dL Normal [facility] Urine hemoglobin detection b y automated test stripOrdered By: Miah Abreu on 03-21-2022 Hemoglobin Auto test strip Ql (U) Negative Negative [facility] Urine leukocyte esterase det ection by automated test stripOrdered By: Miah Abreu on 03-21-2022 Leukocyte esterase Auto test strip Ql (U) Negative Negative [facility] Urobilinogen Auto test strip (U) [Mass/Vol]Ordered By: Miah Abreu on 03-21-2022 Urobilinogen (U) [Mass/Vol] Normal mg/dL Normal [facility] pH Auto test strip (U)Ordere d By: Miah Abreu on 03-21-2022 pH (U) 6.0 [pH] 5.0-9.0 [facility] Cholesterol [Mass/volume] in Serum or PlasmaOrdered By: Miah Abreu on 03-20-2022 Cholesterol [Mass/Vol] 175 mg/dL 140-200 [facility] Comment on above: Chol less than 200 m g/dl low risk Chol 201-239 mg/dl borderline risk Chol 240 mg/dl and greater high risk Cholesterol in LDL Calc [Mas s/Vol]Ordered By: Miah Abreu on 03-20-2022 Cholesterol in LDL [Mass/Vol] 117 mg/dL 0-100 [facility] Comment on above: LDL ATP III CLASSIFI CATION LDL less than 100 mg/dL Optimal LDL 100-129 mg/dL Near or above optimal LDL 130-159 mg/dL Borderline high LDL 160-189 mg/dL High LDL greater than 189 mg/dL Very high Cholesterol in VLDL Calc [Ma ss/Vol]Ordered By: Miah Abreu on 03-20-2022 Cholesterol in VLDL [Mass/Vol] 16 mg/dL [facility] No Panel InformationOrdered By: Miah Abreu on 03-20-2022 25-Hydroxy Vitamin D Total 40.0 ng/mL 30-100 [facility] Comment on above: VITAMIN D [...] Cholesterol in HDL [Mass/Vol] 42 mg/dL 35-85 [facility] Comment on above: HDL CHOL ATP-III CLA SSIFICATION Cardiovascular Risk HDL > or equal to 60 mg/dL LOW HDL < 40 mg/dL HIGH Serum or plasma total choles terol/high density lipoprotein (HDL) cholesterol mass ratOrdered By: Miah Abreu on 03-20-2022 Cholesterol.total/Rachel sterol in HDL [Mass ratio] 4.2 {ratio} <5.0 [facility] TSH DL <= 0.005 mIU/L QnOrde red By: Miah Abreu on 03-20-2022 TSH Qn 1.08 m[IU]/L 0.45-5.33 [facility] Triglyceride [Mass/volume] i n Serum or PlasmaOrdered By: Miah Abreu on 03-20-2022 Triglyceride [Mass/Vol] 81 mg/dL 35-149 [facility] Comment on above: TRIG ATP III CLASSIF ICATION TRIG less than 150 mg/dL Normal TRIG 150-199 mg/dL Borderline high TRIG 200-500 mg/dL High TRIG greater than 500 mg/dL Very high Standard traceable to the Center for Disease Conrtrol and Prevention (CDC) test method. ACETAMINOPHENon 03-19-2022 Acetaminophen [Mass/Vol] ug/mL Critically low 10.0-30.0 [facility] Comment on above: Performed By: #### E GHASSAN DE PAZ #### [facility] Laboratory [address] [place] [address] Dr. Erlinda Rivera CBC AUTO DIFFon 03-19-2022 BASO # 0.1 103/ul Normal 0.0-0.1 [facility] Comment on above: Performed By: #### C VDTB #### [facility] Laboratory [address] [address] [address] Erlinda Rivera Basophils/100 WBC (Bld) 0.6 % Normal 0.2-2.0 [facility] Comment on above: Performed By: #### C VDTBH #### [facility] [address] [address] [address] Erlinda Rivera EO # 0.1 103/ul Normal 0.0-0.7 [facility] Comment on above: Performed By: #### C VDTBH #### [facility] Laboratory [address] [place] [address] Dr. Erlinda Rivera Eosinophils/100 WBC (Bld) 0.7 % Critically low 0.9-7.0 [facility] Comment on above: Performed By: #### C VDTBH #### [facility] [address] [place] [address] Dr. Erlinda Rivera Erythrocyte distribution width (RBC) [Ratio] 12.2 % Normal 11.0-15.0 [facility] Comment on above: Performed By: #### C VDTBH #### [facility] [address] [place] [address] Dr. Erlinda Rivera Hematocrit (Bld) [Volume fraction] 39.5 % Normal 36.0-48.0 [facility] Comment on above: Performed By: #### C VDTBH #### [facility] [address] [place] [address] Dr. Erlinda Rivera Hemoglobin (Bld) [Mass/Vol] 13.2 g/dL Normal 12.0-16.0 [facility] Comment on above: Performed By: #### C VDTBH #### [facility] [address] [place] [address] Dr. Erlinda Rivera IG # 0.03 10e3/ul Normal 0.00-0.03 [facility] Comment on above: Performed By: #### C VDTBH #### [facility] [address] [place] [address] Dr. Erlinda Rivera IG % 0.3 % Normal 0.0-0.5 [facility] Comment on above: Performed By: #### C VDTBH #### [facility] [address] [place] [address] Dr. Erlinda Rivera LYMPH # 2.5 103/ul Normal 1.2-3.8 [facility] Comment on above: Performed By: #### C VDTBH #### [facility] [address] [place] [address] Dr. Erlinda Rivera Lymphocytes/100 WBC (Bld) 26.9 % Normal 20.5-60.0 [facility] Comment on above: Performed By: #### C VDTBH #### [facility] [address] [place] [address] Dr. Erlinda Rivera MANUAL DIFF REQ NO Normal [facility] Comment on above: Performed By: #### C VDTBH #### [facility] [address] [place] [address] Dr. Erlinda Rivera MCH (RBC) [Entitic mass] 34.3 pg Critically high 26.7-34.0 [facility] Comment on above: Performed By: #### C VDTBH #### [facility] [address] [place] [address] Dr. Erlinda Rivera MCHC (RBC) [Mass/Vol] 33.4 g/dL Normal 29.9-35.2 [facility] Comment on above: Performed By: #### C VDTBH #### [facility] [address] [place] [address] Dr. Erlinda Rivera MCV (RBC) [Entitic vol] 102.6 fL Critically high 81.0-99 .0 [facility] Comment on above: Performed By: #### C VDTBH #### [facility] [address] [place] [address] Dr. Elrinda Rivera MONO # 0.8 103/ul Normal 0.3-0.8 [facility] Comment on above: Performed By: #### C VDTBH #### [facility] [address] [place] [address] Dr. Erlinda Rivera Monocytes/100 WBC (Bld) 8.7 % Normal 1.7-12.0 [facility] Comment on above: Performed By: #### C VDTBH #### [facility] [address] [place] [address] Dr. Erlinda Rivera NEUT # 5.9 103/ul Normal 1.4-6.5 [facility] Comment on above: Performed By: #### C VDTBH #### [facility] [address] [place] [address] Dr. Erlinda Rivera Neutrophils/100 WBC (Bld) 62.8 % Normal 43.0-75.0 [facility] Comment on above: Performed By: #### C VDTBH #### [facility] [address] [place] [address] Dr. Erlinda Rivera Platelet mean volume (Bld) [Entitic vol] 10.6 fL Normal 9.5-13.5 [facility] Comment on above: Performed By: #### C VDTBH #### [facility] [address] [place] [address] Dr. Erlinda Rivera PLT 213 103/ul Normal 150-450 [facility] Comment on above: Performed By: #### C VDTBH #### [facility] [address] [place] [address] Dr. Erlinda Rivera RBC 3.85 106/ul Critically low 4.20-5.40 [facility] Comment on above: Performed By: #### C VDTBH #### [facility] [address] [place] [address] Dr. Erlinda Rivera WBC 9.3 103/ul Normal 4.0-11.0 [facility] Comment on above: Performed By: #### C VDTBH #### [facility] [address] [place] [address] CHEST W CONon [...] by: MARIPOSA MARTIN Date: 2022-03-19 05:08 Normal [facility] CT CSPINE WO CONon 2 CT [...] MARIMAR VIVAS Date: 2022-03-19 04:45 Normal [facility] CT FACIAL BONES WO CONon CT [...] MARIMAR VIVAS Date: 2022-03-19 04:34 Normal [facility] CT HEAD WO CONon 03-19-2022 CT [...] MARIMAR VIVAS Date: 2022-03-19 04:30 Normal [facility] SARS-CoV-2 (COVID-19) RNA TISHA+probe Ql (Unsp spec) Not detected Normal NOT DETECTED [facility] Comment on above: Result Comment: When [...] for this test is supported by the [place] of Health and Human Service's declaration that [...] longer be used). Performed By: #### E TH, SALYC, ACET, CMP #### [facility] [address] [address] [address] Erlinda Rivera DRUG SCREEN RAPID (URINE)on 03-19-2022 AMP Positive Abnormal NEGATIVE [facility] Comment on above: Performed By: #### E RUR, UMICRO #### [facility] [address] [place] [address] Dr. Erlinda Rivera BAR Negative Normal NEGATIVE [facility] Comment on above: Performed By: #### E RUR, UMICRO #### [facility] [address] [place] [address] Dr. Erlinda Rivera BUP Negative Normal NEGATIVE [facility] Comment on above: Performed By: #### E RUR, UMICRO #### [facility] [address] [place] [address] Dr. Erlinda Rivera BZO Positive Abnormal NEGATIVE [facility] Comment on above: Performed By: #### E RUBerhane, UMICRO #### [facility] [address] [place] [address] Dr. Erlinda Rivera DOUGLAS Positive Abnormal NEGATIVE [facility] Comment on above: Performed By: #### E BETTER UMICRO #### [facility] [address] [place] [address] Dr. Erlinda Rivera CUT-OFFS SEE BELOW Normal [facility] Comment on above: Result Comment: AMP [...] Performed By: #### E RUR, UMICRO #### [facility] [address] [place] [address] Dr. Erlinad Rivera DRUG CUT HEADER DRUG CLASS TEST SYSTEM CUT-OFF CONCENTRATIONS ARE FOLLOWS: Normal [facility] Comment on above: Performed By: #### E RUR, UMICRO #### [facility] [address] [place] [address] Dr. Erlinda Rivera mAMP Positive Abnormal NEGATIVE [facility] Comment on above: Performed By: #### E RUR, UMICRO #### [facility] [address] [place] [address] Dr. Erlinda Rivera MTD Negative Normal NEGATIVE [facility] Comment on above: Performed By: #### E RUR, UMICRO #### [facility] [address] [place] [address] Dr. Erlinda Rivera OPI Positive Abnormal NEGATIVE [facility] Comment on above: Performed By: #### E RUR, UMICRO #### [facility] [address] [place] [address] Dr. Erlinda Rivera OXY Negative Normal NEGATIVE [facility] Comment on above: Performed By: #### E RUR, UMICRO #### [facility] [address] [place] [address] Dr. Erlinda Rivera PCP Negative Normal NEGATIVE [facility] Comment on above: Performed By: #### E RUR, UMICRO #### [facility] [address] [place] [address] Dr. Erlinda Rivera PPX Negative Normal NEGATIVE [facility] Comment on above: Performed By: #### E RUR, UMICRO #### [facility] [address] [place] [address] Dr. Erlinda Rivera TCA Negative Normal NEGATIVE [facility] Comment on above: Performed By: #### E RUR, UMICRO #### [facility] [address] [place] [address] Dr. Erlinda Rivera THC Positive Abnormal NEGATIVE [facility] Comment on above: Performed By: #### E RUR, UMICRO #### [facility] [address] [place] [address] Dr. Erlinda Rivera ER URINE PROFILEon 2 Bilirubin Ql (U) Negative Normal NEGATIVE [facility] Comment on above: Performed By: #### E RUR, UMICRO #### [facility] [address] [place] [address] Dr. Erlinda Rivera Clarity (U) CLEAR Normal CLEAR [facility] Comment on above: Performed By: #### Sakina DE PAZ UMICRO #### [facility] [address] [place] [address] Dr. Erlinda Rivera Color (U) YELLOW Normal YELLOW [facility] Comment on above: Performed By: #### Sakina DE PAZ UMICRO #### [facility] [address] [place] [address] Dr. Erlinda ALFONSO A micrscopic examination will be performed if indicated. Normal [facility] Comment on above: Performed By: #### Sakina DE PAZ UMICRO #### [facility] [address] [place] [address] Dr. Erlinda Rivera Glucose Ql (U) Negative Normal NEGATIVE [facility] Comment on above: Performed By: #### Sakina DE PAZ UMICRO #### [facility] [address] [place] [address] Dr. Erlinda Rivera Hemoglobin Ql (U) Negative Normal NEGATIVE [facility] Comment on above: Performed By: #### Sakina DE PAZ UMICRO #### [facility] [address] [place] [address] Dr. Erlinda Rivera Ketones Ql (U) Negative Normal NEGATIVE [facility] Comment on above: Performed By: #### Sakina DE PAZ UMICRO #### [facility] [address] [place] [address] Dr. Erlinda Rivera LEUKOCYTES Negative Normal NEGATIVE [facility] Comment on above: Performed By: #### Sakina DE PAZ UMICRO #### [facility] [address] [place] [address] Dr. Erlinda Rivera Nitrite Ql (U) Negative Normal NEGATIVE [facility] Comment on above: Performed By: #### Sakina DE PAZ UMICRO #### [facility] [address] [place] [address] Dr. Erlinda Rivera pH (U) 5.5 [pH] Normal 5-9 [facility] Comment on above: Performed By: #### Sakina DE PAZ UMICRO #### [facility] [address] [place] [address] Dr. Erlinda Rivera SPEC GRAVITY 1.010 Normal 1.005-<=1.025 [facility] Comment on above: Performed By: #### GHASSAN SOTELO #### [facility] [address] [place] [address] Dr. Erlinda Rivera UA PROTEIN Negative Normal NEGATIVE/ TRACE [facility] Comment on above: Performed By: #### SEBASTIÁN SOTELORO #### [facility] [address] [place] [address] Dr. Erlinda Rivera UR MICRO IND NOT INDICATED Normal [facility] Comment on above: Performed By: #### GHASSAN SOTELO #### [facility] [address] [place] [address] Dr. Erlinda Rivera Urobilinogen Qn (U) 0.2 {Shannan'U}/dL Normal 0.2 - 1. 0 [facility] Comment on above: Performed By: #### SEBASTIÁN SOTELORO #### [facility] [address] [place] [address] Dr. Erlinda Rivera ETHANOL (BLD ALC)on 03-19-20 22 ALC NOTE NOTE: 80 mg/dl is th e legal limit for a blood alcohol level Normal [facility] Comment on above: Performed By: #### E TH, SALYC, ACET, CMP #### [facility] [address] [place] [address] Dr. Erlinda Rivera Ethanol [Mass/Vol] mg/dL Normal [facility] Comment on above: Performed By: #### E TH, SALYC, ACET, CMP #### [facility] [address] [place] [address] Dr. Erlinda Rivera PREG HCG QUALon 03-19-2022 , QUAL Negative Normal NEGATIVE [facility] Comment on above: Performed By: #### E TH, SALYC, ACET, CMP #### [facility] [address] [place] [address] Dr. Erlinda Rivera PROF 14(COMP METB)on 022 Albumin [Mass/Vol] 4.0 g/dL Normal 3.4-5.0 [facility] Comment on above: Performed By: #### E ZANDRA UMICRO #### [facility] [address] [place] [address] Dr. Erlinda Rivera Albumin/Globulin [Mass ratio] 1.2 {ratio} Normal [facility] Comment on above: Performed By: #### E ZANDRA UMICRO #### [facility] [address] [place] [address] Dr. Erlinda Rivera ALP [Catalytic activity/Vol] 53 U/L Normal 46-116 [facility] Comment on above: Performed By: #### E ZANDRA UMICRO #### [facility] [address] [place] [address] Dr. Erlinda Rivera ALT [Catalytic activity/Vol] 77 U/L Critically high 14-59 [facility] Comment on above: Performed By: #### Sakina DE PAZ UMICRO #### [facility] [address] [place] [address] Dr. Erlinda Rivera Anion gap [Moles/Vol] 8.9 mmol/L Normal [facility] Comment on above: Performed By: #### Sakina DE PAZ UMICRO #### [facility] [address] [place] [address] Dr. Erlinda Rivera AST [Catalytic activity/Vol] 75 U/L Critically high 15-37 [facility] Comment on above: Performed By: #### Sakina DE PAZ UMICRO #### [facility] [address] [place] [address] Dr. Erlinda Rivera Bilirubin [Mass/Vol] 0.8 mg/dL Normal 0.2-1.0 [facility] Comment on above: Performed By: #### Sakina DE PAZ UMICRO #### [facility] [address] [place] [address] Dr. Erlinda Rivera Calcium [Mass/Vol] 8.7 mg/dL Normal 8.5-10.1 [facility] Comment on above: Performed By: #### Sakina DE PAZ UMICRO #### [facility] [address] [place] [address] Dr. Erlinda Rivera Chloride [Moles/Vol] 103 mmol/L Normal 98-107 [facility] Comment on above: Performed By: #### GHASSAN SOTELO #### [facility] [address] [place] [address] Dr. Erlinda Rivera CO2 [Moles/Vol] 30.9 mmol/L Normal 21.0-32.0 [facility] Comment on above: Performed By: #### GHASSAN SOTELO #### [facility] [address] [place] [address] Dr. Erlinda Rivera Creatinine [Mass/Vol] 0.90 mg/dL Normal 0.55-1.02 [facility] Comment on above: Performed By: #### GHASSAN SOTELO #### [facility] [address] [place] [address] Dr. Erlinda Rivera EGFR-AF VENEZUELAN >60 Normal >=60 [facility] Comment on above: Performed By: #### GHASSAN SOTELO #### [facility] [address] [place] [address] Dr. Erlinda Rivera EGFR-NON AF VENEZUELAN >60 Normal >=60 [facility] Comment on above: Performed By: #### GHASSAN SOTELO #### [facility] [address] [place] [address] Dr. Erlinda Rivera Globulin (S) [Mass/Vol] 3.4 g/dL Normal [facility] Comment on above: Performed By: #### GHASSAN SOTELO #### [facility] [address] [place] [address] Dr. Erlinda Rivera Glucose [Mass/Vol] 128 mg/dL Critically high 74-106 [facility] Comment on above: Performed By: #### GHASSAN SOTELO #### [facility] [address] [place] [address] Dr. Erlinda Rivera Potassium [Moles/Vol] 3.8 mmol/L Normal 3.5-5.1 [facility] Comment on above: Performed By: #### GHASSAN SOTELO #### [facility] [address] [address] [address] Erlinda Rivera Protein [Mass/Vol] 7.4 g/dL Normal 6.4-8.2 [facility] Comment on above: Performed By: #### SEBASTIÁN SOTELORO #### [facility] [address] [address] [address] Erlinda Rivera Sodium [Moles/Vol] 139 mmol/L Normal 136-145 [facility] Comment on above: Performed By: #### Sakina DE PAZ UMICRO #### [facility] [address] [address] [address] Erlinda Rivera Urea nitrogen [Mass/Vol] 7.0 mg/dL Normal 7.0-18.0 [facility] Comment on above: Performed By: #### Sakina DE PAZ UMICRO #### [facility] [address] [place] [address] Dr. Erlinda Rivera Urea nitrogen/Creatinine [Mass ratio] 7.8 mg/mg Normal [facility] Comment on above: Performed By: #### Sakina DE PAZ UMICRO #### [facility] [address] [place] [address] Dr. Erlinda Rivera SALICYLATEon 03-19-2022 SALICYLATE <2.8 Normal <=19.9 [facility] Comment on above: Performed By: #### Sakina DE PAZ UMICRO #### [facility] [address] [place] [address] Dr. Erlinda Rivera XR CHEST 1 Von [...] by: MARIPOSA MARTIN Date: 2022-03-19 04:21 Normal [facility] Vital Signs Date Time Vital Sign Value Performing Clinician Facility 01-20-2024 07:30-0400 Body temperature 97.6 [degF] CASH POSTING REPRESENTATIVE-C Michelle Mojicajas Work Phone: [facility] 01-20-2024 07:30-0400 Diastolic blood pressure 69 mm[Hg] CASH POSTING REPRESENTATIVE-C 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 Work Phone: [facility] 01-20-2024 07:30-0400 Heart rate 70 /min CASH POSTING REPRESENTATIVE-C 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 Work Phone: [facility] 01-20-2024 07:30-0400 Respiratory rate 18 /min CASH POSTING REPRESENTATIVE-C 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 Work Phone: [facility] 01-20-2024 07:30-0400 SaO2% (BldA) [Mass fraction] 97 % CASH POSTING REPRESENTATIVE-C Michelle Mojicajas Work Phone: [facility] 01-20-2024 07:30-0400 Systolic blood pressure 104 mm[Hg] CASH POSTING REPRESENTATIVE-C 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 Work Phone: [facility] 01-18-2024 14:08-0400 Body height 157.48 cm CASH POSTING REPRESENTATIVE-C 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 Work Phone: [facility] 01-18-2024 04:17-0400 Body weight 90.71 kg CASH POSTING REPRESENTATIVE-C 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 Work Phone: [facility] 12-01-2023 11:02-0500 Body height 157.5 cm 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 AIRPLANE REFUELER-WAREHOUSE ATTENDANT Work Phone: [facility] [employer] [facility] 12-01-2023 11:02-0500 Body mass index (BMI) [Ratio] 38.07 kg/m2 Michelle Daniels AIRPLANE REFUELER-WAREHOUSE ATTENDANT Work Phone: [facility] 12-01-2023 11:02-0500 Body temperature 97.59 [degF] 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 AIRPLANE REFUELER-WAREHOUSE ATTENDANT Work Phone: [facility] 12-01-2023 11:02-0500 Body weight 94.44 kg 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 AIRPLANE REFUELER-WAREHOUSE ATTENDANT Work Phone: [facility] 12-01-2023 11:02-0500 Diastolic blood pressure 92 mm[Hg] 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 AIRPLANE REFUELER-WAREHOUSE ATTENDANT Work Phone: [facility] 12-01-2023 11:02-0500 Heart rate 101 /min 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 AIRPLANE REFUELER-WAREHOUSE ATTENDANT Work Phone: [facility] 12-01-2023 11:02-0500 Respiratory rate 22 /min 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 AIRPLANE REFUELER-WAREHOUSE ATTENDANT Work Phone: [facility] 12-01-2023 11:02-0500 SaO2% (BldA) [Mass fraction] 96 % 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 AIRPLANE REFUELER-WAREHOUSE ATTENDANT Work Phone: [facility] 12-01-2023 11:02-0500 Systolic blood pressure 132 mm[Hg] 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 AIRPLANE REFUELER-WAREHOUSE ATTENDANT Work Phone: [facility] 10-13-2023 08:30-0500 Diastolic blood pressure 72 mm[Hg] [facility] 10-13-2023 08:30-0500 Systolic blood pressure 129 mm[Hg] [facility] 10-13-2023 07:30-0500 Body temperature 97.9 [degF] [facility] 10-13-2023 07:30-0500 Heart rate 102 /min [facility] 10-13-2023 07:30-0500 SaO2% (BldA) [Mass fraction] 95 % [facility] 10-12-2023 19:48-0500 Respiratory rate 18 /min [facility] 10-11-2023 09:40-0500 Body height 157.48 cm [facility] 10-10-2023 12:19-0500 Body weight 94.34 kg [facility] 08-26-2023 07:30-0500 Body temperature 97.9 [degF] [facility] 08-26-2023 07:30-0500 Diastolic blood pressure 87 mm[Hg] [facility] 08-26-2023 07:30-0500 Heart rate 83 /min [facility] 08-26-2023 07:30-0500 Respiratory rate 16 /min [facility] 08-26-2023 07:30-0500 SaO2% (BldA) [Mass fraction] 97 % [facility] 08-26-2023 07:30-0500 Systolic blood pressure 134 mm[Hg] [facility] 08-24-2023 14:51-0500 Body height 157.48 cm [facility] 08-24-2023 01:08-0500 Body weight 97.52 kg [facility] 05-11-2023 14:45-0400 Body height 157.48 cm [email or web address] Other [employer] Other 05-11-2023 14:45-0400 Body mass index (BMI) [Ratio] 36.1 kg/m2 [email or web address] Other [employer] Other 05-11-2023 14:45-0400 Body weight 89.54 kg [employer] Other [employer] Other 05-01-2023 07:24-0400 Body temperature 97.9 [degF] MD Miah Abreu Work Phone: [facility] 05-01-2023 07:24-0400 Diastolic blood pressure 91 mm[Hg] MD Miah Abreu Work Phone: [facility] 05-01-2023 07:24-0400 Heart rate 86 /min MD Miah Abreu Work Phone: [facility] 05-01-2023 07:24-0400 Respiratory rate 16 /min MD Miah Abreu Work Phone: [facility] 05-01-2023 07:24-0400 SaO2% (BldA) [Mass fraction] 94 % MD Miah Abreu Work Phone: [facility] 05-01-2023 07:24-0400 Systolic blood pressure 141 mm[Hg] MD Miah Abreu Work Phone: [facility] 04-25-2023 15:03-0400 Body height 157.48 cm MD Miah Abreu Work Phone: [facility] 04-25-2023 09:00-0400 Body weight 91.98 kg MD Miah Abreu Work Phone: [facility] 04-17-2023 07:30-0400 Body temperature 98 [degF] MD Miah Abreu Work Phone: [facility] 04-17-2023 07:30-0400 Diastolic blood pressure 92 mm[Hg] MD Miah Abreu Work Phone: [facility] 04-17-2023 07:30-0400 Heart rate 84 /min MD Miah Abreu Work Phone: [facility] 04-17-2023 07:30-0400 Respiratory rate 17 /min MD Miah Abreu Work Phone: [facility] 04-17-2023 07:30-0400 SaO2% (BldA) [Mass fraction] 97 % MD Miah Abreu Work Phone: [facility] 04-17-2023 07:30-0400 Systolic blood pressure 126 mm[Hg] MD Miah Abreu Work Phone: [facility] 04-13-2023 14:37-0400 Body height 157.48 cm MD Miah Abreu Work Phone: [facility] 04-13-2023 07:57-0400 Body weight 87.54 kg MD Miah Abreu Work Phone: [facility] 09-01-2022 07:30-0500 Body temperature 97.7 [degF] [facility] 09-01-2022 07:30-0500 Diastolic blood pressure 83 mm[Hg] [facility] 09-01-2022 07:30-0500 Heart rate 78 /min [facility] 09-01-2022 07:30-0500 Respiratory rate 16 /min [facility] 09-01-2022 07:30-0500 SaO2% (BldA) [Mass fraction] 96 % [facility] 09-01-2022 07:30-0500 Systolic blood pressure 132 mm[Hg] [facility] 08-30-2022 15:01-0500 Body height 157.48 cm [facility] 08-30-2022 12:17-0500 Body weight 86.22 kg [facility] 06-12-2022 07:30-0400 Body temperature 97.6 [degF] [facility] 06-12-2022 07:30-0400 Diastolic blood pressure 68 mm[Hg] [facility] 06-12-2022 07:30-0400 Heart rate 76 /min [facility] 06-12-2022 07:30-0400 Respiratory rate 18 /min [facility] 06-12-2022 07:30-0400 SaO2% (BldA) [Mass fraction] 98 % [facility] 06-12-2022 07:30-0400 Systolic blood pressure 105 mm[Hg] [facility] 06-08-2022 14:29-0400 Body height 157.48 cm [facility] 06-07-2022 09:00-0400 Body weight 81.8 kg [facility] 03-23-2022 07:30-0400 Body temperature 97.6 [degF] [facility] 03-23-2022 07:30-0400 Diastolic blood pressure 79 mm[Hg] [facility] 03-23-2022 07:30-0400 Heart rate 76 /min [facility] 03-23-2022 07:30-0400 Respiratory rate 16 /min [facility] 03-23-2022 07:30-0400 SaO2% (BldA) [Mass fraction] 95 % [facility] 03-23-2022 07:30-0400 Systolic blood pressure 118 mm[Hg] [facility] 03-22-2022 16:06-0400 Body height 157.48 cm [facility] 03-22-2022 14:29-0400 Body weight 83 kg [facility] 03-19-2022 14:20-0400 Body mass index (BMI) [Ratio] 29.6 kg/m2 [facility] 07-05-2019 07:38-0400 Body Temperature 97.81 [degF] [place] 07-05-2019 07:38-0400 BP Di[facility] 48 [facility]Hg[facility] [place] 07-05-2019 07:38-0400 BP Systolic 108 mm[Hg] [place], [place] 07-05-2019 07:38-0400 Pulse (Heart Rate) 82 /min [facility] [place] 07-05-2019 07:38-0400 Pulse Oximetry 98 % [place], [place] 07-05-2019 07:38-0400 Respiratory Rate 14 /min [facility] [place] 07-02-2019 00:30-0400 BMI (Body Mass Index) 35.67 kg/m2 [facility] [employer] [place], [place] 07-02-2019 00:30-0400 Body weight 88.45 kg Branden [employer] [place], [place] 07-02-2019 00:30-0400 Height 157.5 cm [place] Encounters Encounter Date Encounter Type Care Provider Facility Start: 04-12-2024 End: 04-12-2024 ambulatory CAM BADILLO Not Available Start: 03-22-2024 End: 03-22-2024 ambulatory CAM BADILLO Not Available Start: 03-15-2024 End: 03-15-2024 ambulatory CAM BADILOL Not Available Start: 03-08-2024 End: 03-08-2024 ambulatory CAM BADILLO Not Available Start: 02-17-2024 End: 02-17-2024 ambulatory CAM BADILLO Not Available Start: 02-07-2024 End: 02-07-2024 ambulatory CAM BADILLO Not Available Start: 01-18-2024 ambulatory NON STAFF Facility:[facility] Start: 01-18-2024 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 A gayathri Bowser Work Phone: [facility] Work Phone: Start: 01-18-2024 End: 01-20-2024 Evaluation and management of inpatient CASH POSTING REPRESENTATIVE-C 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 Work Phone: [address] Work Phone: Start: 01-18-2024 End: 01-18-2024 Emergency department patient visit [facility] Start: 01-18-2024 Encounter for other general examination DEB MORROW [facility] Start: 12-22-2023 Refill Rachel Rodriguez [facility] Start: 12-05-2023 Telephone encounter Jennifer Santiago [facility] Start: 12-02-2023 End: 12-03-2023 ambulatory [facility] Start: 12-02-2023 End: 12-02-2023 ambulatory [facility] Start: 12-02-2023 End: 12-02-2023 ambulatory CAM BADILLO Not Available Start: 12-01-2023 End: 12-02-2023 ambulatory [facility] Start: 12-01-2023 End: 12-01-2023 ambulatory [facility] Start: 12-01-2023 End: 12-01-2023 Office outpatient new 45 minutes 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 AIRPLANE REFUELER-WAREHOUSE ATTENDANT [facility] Comment on above: Primary hypertension (Primary Dx); Other specified hypothyroidism; Fibromyalgia; Anxiety; Encounter for lipid screening for cardiovascular disease; Class 2 severe obesity with serious comorbidity and body mass index (BMI) of 38.0 to 38.9 in adult, unspecified obesity type ; Encounter to establish care Start: 11-23-2023 End: 11-23-2023 ambulatory CAM BADILLO Not Available Start: 11-15-2023 Bamboo flowsheet Cam Badillo CLINICAL NURSE REVIEWER [facility] Start: 11-15-2023 Bamboo flowsheet Cam Badillo CLINICAL NURSE REVIEWER [facility] Start: 11-15-2023 End: 11-15-2023 ambulatory CAM BADILLO Not Available Start: 11-10-2023 Bamboo flowsheet Cam Badillo CLINICAL NURSE REVIEWER [facility] Start: 11-10-2023 Bamboo flowsheet Cam Badillo CLINICAL NURSE REVIEWER [facility] Start: 11-10-2023 End: 11-10-2023 ambulatory CAM BADILLO Not Available Start: 11-03-2023 End: 11-03-2023 ambulatory CAM BADILLO Not Available Start: 10-21-2023 End: 10-21-2023 ambulatory CAM BADILLO Not Available Start: 10-10-2023 End: 10-13-2023 Evaluation and management of inpatient [facility] Phone: Start: 09-21-2023 End: 09-22-2023 ambulatory CAM BADILLO Not Available Start: 09-15-2023 End: 09-16-2023 ambulatory CAM BADILLO Not Available Start: 09-08-2023 End: 09-08-2023 ambulatory CAM BADILLO Not Available Start: 08-23-2023 End: 08-26-2023 Evaluation and management of inpatient [facility] Work Phone: Start: 08-17-2023 End: 08-17-2023 ambulatory CAM BADILLO Not Available Start: 05-11-2023 End: 05-11-2023 ambulatory Efrain Alcazar II Other [employer] Other Start: 05-11-2023 Office outpatient ne w 45 minutes Efrain Alcazar II [facility] Start: 04-23-2023 End: 05-01-2023 Evaluation and management of inpatient MD Miah Abreu Work Phone: [facility] Work Phone: Start: 04-13-2023 End: 04-17-2023 Evaluation and management of inpatient MD Miah Abreu Work Phone: [facility] Work Phone: Start: 09-30-2022 End: 09-30-[address] DOCTOR NAGY Facility:[facility] Start: 09-07-2022 End: 09-07-[address] YARON LANG Facility:[facility] Start: 08-29-2022 End: 09-01-2022 Evaluation and management of inpatient [facility] Start: 06-06-2022 End: 06-12-2022 Evaluation and management of inpatient [facility] Start: 06-06-2022 End: 06-06-2022 ambulatory OTTO SIEGEL Facility:[facility] Start: 04-06-2022 End: 04-07-2022 ambulatory JUAN LUIS NAHUM [facility] Start: 04-06-2022 End: 04-06-2022 Subsequent hospital visit by physician Branden Vazquez MD Work Phone: [facility] Start: 03-24-2022 End: 03-25-2022 ambulatory EDY PERDOMO Facility:[facility] Start: 03-19-2022 End: 03-23-2022 Evaluation and management of inpatient [facility] Start: 03-19-2022 End: 03-19-[address] DOCTOR NAGY Facility:[facility] Start: 07-02-2019 End: 07-05-2019 [facility] management [facility] Start: 07-01-2019 Patient encounter procedure Branden MORELOS Admitting Comment on above: N/A Start: 04-04-2017 End: 04-05-2017 Ambulatory BENJI BURKS Facility:[facility] Procedures Date Procedure Procedure Detail Performing Clinician Start: 12-01-2023 Adult depression screening assessment 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 APRNFABRIZIO Work Phone: Start: 11-15-2023 End: 11-15-2023 Psychotherapy w/patient 60 minutes PTSD (post-traumatic stress disorder) (CMS/HCC) Cam BEACHW Comment on above: PTSD (post-traumatic stress disorder) (CMS/HCC); Attention deficit hyperactivity disorder (ADHD), combined type (CMS/HCC); Alcohol dependence in remission (CMS/HCC); Methamphetamine dependence in remission (CMS/HCC); Opioid dependence in remission (CMS/HCC) Start: 11-10-2023 End: 11-10-2023 Psychotherapy w/patient 60 minutes PTSD (post-traumatic stress disorder) (CMS/HCC) Cam BEACHW Comment on above: PTSD (post-traumatic stress disorder) (CMS/HCC); Alcohol dependence in remission (CMS/HCC); Opioid dependence in remission (CMS/HCC); Attention deficit hyperactivity disorder (ADHD), combined type (CMS/HCC); Methamphetamine dependence in remission (CMS/HCC) Start: 11-03-2023 End: 11-03-2023 Psychotherapy w/patient 60 minutes PTSD (post-traumatic stress disorder) (CMS/HCC) Cam BEACHW Comment on above: PTSD (post-traumatic stress disorder) (CMS/HCC); Opioid dependence in remission (CMS/HCC); Methamphetamine dependence in remission (CMS/HCC); Alcohol dependence in remission (CMS/HCC); Attention deficit hyperactivity disorder (ADHD), combined type (CMS/HCC) Start: 10-10-2023 Urine culture Start: 04-23-2023 Aerobic microbial culture MD Miah Abreu Work Phone: Start: 04-06-2022 Antibody hiv-1&hiv-2 single result Juan Luis Whiting AIRPLANE REFUELER - WAREHOUSE ATTENDANT Work Phone: Start: 04-06-2022 Comprehensive metabo lic panel Juan Luis Whiting AIRPLANE REFUELER - WAREHOUSE ATTENDANT Work Phone: Start: 04-06-2022 Smr prim src wet john nt nfct agt Juan Luis Whiting AIRPLANE REFUELER - WAREHOUSE ATTENDANT Work Phone: Start: 04-06-2022 T. PALLIDUM AB Juan Luis cochran AIRPLANE REFUELER - WAREHOUSE ATTENDANT Work Phone: Start: 07-05-2019 DISCHARGE PATIENT AMIE NORTON Start: 07-05-2019 PATIENT STATUS (DIRECT) PREM NORTON Start: 07-02-2019 IP CONSULT TO HISTOR Y AND PHYSICAL PREM NORTON Start: 07-02-2019 DIET GENERAL PREM NORTON Start: 07-02-2019 FULL CODE PREM NORTON Start: 07-02-2019 MONITOR PREM NORTON Start: 07-02-2019 TOBACCO CESSATION EDUCATION PREM NORTON Start: 07-02-2019 VITAL SIGNS PREM NORTON Plan of Treatment Date Care Activity Detail Author Start: 09-09-2027 DTaP,Tdap and Td Vac cines (2 - Td or Tdap) DTaP,Tdap and Td Vaccines (2 - Td or Tdap) [facility] Start: 11-30-2024 Adult BMI Screening Adult BMI Screen ing [facility] Start: 11-30-2024 Depression Screening Depression Scre ening [facility] Start: 11-30-2024 Tobacco Screening Tobacco Screening [facility] Start: 01-20-2024 [facility] Start: 01-18-2024 Referral to [facility] Start: 01-18-2024 Hospital admission [facility] Start: 11-21-2023 End: 11-21-2023 Social Work 11/21/2023 11:00 AM EST Social Work [facility] [id number] [place] [place] [phone] Cam Badillo, [facility] [address] [place] [id number] [facility] Start: 11-15-2023 End: 11-15-2023 Social Work [facility] Comment on above: Arrived Start: 11-10-2023 End: 11-10-2023 Social Work 11/10/2023 11:00 AM EST Social Work [facility] [id number] [facility] [place] [id number] Cam Badillo, [facility] [address] [place] [address] Arrived [facility] FNR Comment on above: Arrived Start: 10-13-2023 [facility] Start: 10-10-2023 Referral to [facility] Start: 10-10-2023 Hospital admission [facility] Start: 08-26-2023 [facility] Start: 08-25-2023 [facility] Start: 08-24-2023 Referral to clinical health promoter [facility] Start: 08-24-2023 Referral to [facility] Start: 08-24-2023 Hospital admission [facility] Start: 08-24-2023 [facility] Start: 06-03-2023 COVID-19 Vaccine ( season) COVID-19 Vaccine ( season) [employer] Start: 06-03-2023 Influenza vaccination [facility] Start: 2023 Administration of varicella zoster vaccine Zoster (Shingles) Vaccine (1 of 2) [employer] [facility] Start: 05-01-2023 [facility] Start: 04-25-2023 Consultation [facility] Start: 04-23-2023 Referral to clinical health promoter [facility] Start: 04-23-2023 Hospital admission [facility] Start: 04-17-2023 [facility] Start: 04-13-2023 Referral to [facility] Start: 04-13-2023 Sleep disorder assessment [facility] Start: 04-13-2023 Hospital admission [facility] Start: 09-01-2022 [facility] Start: 08-29-2022 Hospital admission [facility] Start: 06-12-2022 [facility] Start: 06-06-2022 Referral to [facility] Start: 06-06-2022 Hospital admission [facility] Start: 06-03-2022 Influenza vaccination Flu vaccine (# 1) [employer] [facility] [employer] Start: 03-23-2022 [facility] Work Phone: Start: 03-19-2022 Hospital admission [facility] Work Phone: Start: 06-03-2019 Influenza vaccination Flu vaccine (# 1) [employer] [place], [place] Start: 2018 Screening for malign ant neoplasm of colon [facility] [employer] [facility] [employer] Start: 2013 Lipid panel Lipids [facility] Start: 2013 Lipid screen Lipid screen [place], [place] Start: 2013 Screening for malign ant neoplasm of breast Mammogram [facility] Start: 2003 Screening for malign ant neoplasm of cervix [facility] Start: 1994 Cervical cancer screen Cervical canc er screen [place], [place] Start: 1994 Screening for malign ant neoplasm of cervix Pap smear [facility] Start: 1992 DTaP/Tdap/Td vaccine (1 - Tdap) DTaP/Tdap/Td vaccine (1 - Tdap) [facility] Start: 1991 Adult BMI Follow Up Plan Adult BMI Follow Up Plan [facility] Start: 1991 Hepatitis C screening Hepatitis C sc reen [facility] Start: 1988 HIV screen HIV screen [place], [place] Start: 1988 HIV screening HIV screen [facility] Start: 1985 Depression Monitoring Depression Mon itoring [facility] Start: 1979 Pneumococcal 0-64 ye ars Vaccine (1 - PCV) Pneumococcal 0-64 years Vaccine (1 - PCV) [facility] Start: 1979 Pneumococcal 0-64 ye ars Vaccine (1 of 1 - PPSV23) Pneumococcal 0-64 years Vaccine (1 of 1 - PPSV23) [place], [place] Start: 1978 COVID-19 Vaccine (1) COVID-19 Vaccin e (1) [facility] Start: 1973 Screening for malign ant neoplasm of colon [facility] Start: 1973 Tobacco Counseling Tobacco Counselin g [facility] End: 04-06-2022 C.trachomatis N.gonorrhoeae DNA [facility] Work Phone: Comment on above: Once for 1 Occurrenc es starting 04/06/2022 until 04/06/2022 Hepatitis A virus antibody, IgM type [facility] Hepatitis B core ant ibody measurement, IgM type [facility] Hepatitis B virus estrada rface Ag [Presence] in Serum or Plasma by Immunoassay [facility] End: 04-06-2022 Hepatitis C RNA, quantitative, PCR DWAIN AMAURI [facility] [employer] Work Phone: Comment on above: Once for 1 Occurrenc es starting 04/06/2022 until 04/06/2022 Hepatitis C virus Ig G Ab [Presence] in Serum or Plasma by Immunoassay [facility] Hepatitis C virus RN A [log units/volume] (viral load) in Serum or Plasma by TISHA with probe detection [facility] Hepatitis C virus RN A [Units/volume] (viral load) in Serum or Plasma by TISHA with probe detection [facility] Patient Education [facility] Work Phone: Patient referral [facility] Work Phone: Immunizations Immunization Date Immunization Notes Care Provider Jl lopez 09-11-2022 COVID-19 Pfizer (bivalent) Efrain Cardosoisle II Other [facility] 07-13-2022 influenza, injectabl e, quadrivalent, preservative free Efrain Winnebago II Other [facility] 07-13-2022 influenza virus vaccine, unspecified formulation Cam Badillo [facility] 09-23-2021 COVID-19 Vaccine Pfizer - Documentation Purposes Only Efrain Alcazar II Other [facility] 07-22-2021 influenza, injectabl e, quadrivalent, preservative free [facility] 02-16-2021 COVID-19 Vaccine Codey - Documentation Purposes Only Efrain Alcazar II Other [facility] 12-04-2019 Influenza, injectabl e, Madin Basom Canine Kidney, preservative free, quadrivalent [facility] 09-09-2017 tetanus toxoid, reduced diphtheria toxoid, and acellular pertussis vaccine, adsorbed Efrain Winnebago II Other [employer] NEGATED: Highlighted row has not occurred!07-31-2018 influenza, injectable, quadrivalent, preservative free [facility] Payers Date Payer Category Payer Self-pay [id number] 2022 Medicaid [id number] 2022 Medicaid [id number] 2014 Unknown [employer] xxxxxxxxxxx 2014-Present [phone] [address] [place] [address] xxxxxxxxxxx [id number]. [id number] 1973 Unknown [id number] 2.16.840.1.046831.3.579.2.176 1973 Unknown [id number] 2.16.840.1.039669.3.579.2.173 1973 Unknown [id number] 2.16.840.1.011227.3.579.2.593 1973 Unknown [id number] 2.16.840.1.159020.3.579.2.593 1973 Unknown [id number] 2.16.840.1.181344.3.579.2.593 1973 Unknown [id number] 2.16.840.1.458323.3.579.2.593 1973 Unknown [id number] 2.16.840.1.605484.3.579.2.593 1973 Unknown [id number] 2.16.840.1.513629.3.579.2.1286 1973 Unknown [id number] 2.16.840.1.772857.3.579.2.1286 1973 Unknown [id number] 2.16.840.1.875668.3.579.2.1286 1973 Unknown [id number] 2.16.840.1.002493.3.579.2.1286 1973 Unknown [id number] 2.16.840.1.233487.3.579.2.1286 1973 Unknown [id number] 2.16.840.1.931269.3.579.2.1258 1973 Unknown [id number] 2..840.1.411804.3.579.2.1258 1973 Unknown [id number] 2.840.1.109665.3.579.2.1258 1973 Unknown [id number] 2.840.1.929262.3.579.2.1258 1973 Unknown [id number] 2.840.1.739412.3.579.2.1258 1973 Unknown [id number] 2.840.1.197993.3.579.2.1258 1973 Unknown [id number] 2.840.1.249917.3.579.2.1258 1973 Unknown [id number] 2.840.1.565334.3.579.2.1258 1973 Unknown [id number] 2.840.1.904444.3.579.2.1258 1973 Unknown [id number] 2.840.1.050395.3.579.2.1258 1973 Unknown [id number] 2.840.1.713152.3.579.2.1258 1973 Unknown [id number] 2.840.1.484494.3.579.2.1258 1973 Unknown [id number] 2.840.1.545874.3.579.2.1258 1973 Unknown [id number] 2.16.840.1.596379.3.579.2.1258 1973 Unknown [id number] 2.840.1.005368.3.579.2.1259 1973 Unknown [id number] 2.16.840.1.796136.3.579.2.1259 1959 Medicaid [id number] 1959 Unknown [id number] Unknown [id number] 2.16.840.1.223073.3.579.2.531 Unknown [id number] 2.16.840.1.677179.3.579.2.531 Unknown [id number] 2.16.840.1.845438.3.579.2.531 Unknown [id number] 2.16.840.1.767518.3.579.2.531 Unknown [id number] 2.16.840.1.090950.3.579.2.531 Social History Date Type Detail Facility Start: 09-09-2017 End: 07-03-2019 Tobacco smoking status [facility] [employer] End: 05-23-2018 History of tobacco use Cigarette Smoker [place], [place] Start: 07-03-2019 End: 11-13-2020 Cigarettes smoked current (pack per day) - Reported [place], [place] Start: 07-03-2019 End: 11-13-2020 Alcohol intake Yes [place] Start: 09-09-2017 Alcohol Comment occassional [place], [place] Start: 1975 Sex Assigned At Not on file [place], [place] Start: 09-09-2017 End: 12-01-2023 Tobacco use and exposure Smokeless tobacco non-user [employer] Phone: Start: 07-03-2019 Alcohol intake Current drinke r of alcohol (finding) [employer] [facility] Phone: Start: 09-09-2017 History SDOH Alcohol Comment occassional [employer] [facility] Phone: Start: 06-07-2022 End: 01-18-2024 Tobacco smoking status NHIS Smoker (finding) [facility] Start: 1975 Sex Assigned At Female F [facility] Start: 08-30-2022 End: 08-24-2023 Tobacco smoking status NHIS Ex-smoker (finding) [facility] Start: 04-28-2023 Tobacco smoking stat us NYIS Never smoked tobacco (finding) [facility] Tobacco smoking stat [facility] Tobacco smoking consumption unknown [facility] Start: 12-01-2023 Tobacco smoking stat [facility] Occasional tobacco smoker [facility] [employer] Start: 12-01-2023 Alcohol intake [facility]-drinker (finding) [facility] Ad[facility]ressio n [facility] Start: 03-05-2021 Alcohol Comment beer and liquour [employer] Goals Date Patient Goal Desired Activity /State Personal health goal Comment on above: Formatting of this n ote might be different from the original. Evaluation of progress towards goal: admitted to hospital Functional Status Date Assessment Result Facility 01-20-2024 Functional status Patient at [facility] Work Phone: 10-13-2023 Functional status Patient at [facility] Work Phone: 08-26-2023 Functional status Patient at [facility] Work Phone: 05-01-2023 Functional status Patient at [facility] Work Phone: 04-17-2023 Functional status Patient at [facility] Work Phone: 09-01-2022 Functional status Patient at [facility] Work Phone: 06-12-2022 Functional status Patient at [facility] Work Phone: 03-23-2022 Functional status Patient at [facility] Work Phone: Mental Status Date Assessment Result Facility 01-20-2024 Cognitive function Cognitive Sta tus Patient at Baseline [facility] Work Phone: 10-13-2023 Cognitive function Cognitive Sta tus Patient at Baseline [facility] Work Phone: 08-26-2023 Cognitive function Cognitive Sta tus Patient at Baseline [facility] Work Phone: 05-01-2023 Cognitive function Cognitive Sta tus Patient at Baseline [facility] Work Phone: 04-17-2023 Cognitive function Cognitive Sta tus Patient at Baseline [facility] Work Phone: 09-01-2022 Cognitive function Cognitive Sta tus Patient is Progressing Toward Baseline [facility] Work Phone: 06-12-2022 Cognitive function Cognitive Sta tus Patient at Baseline [facility] Work Phone: 03-23-2022 Cognitive function Cognitive Sta tus Patient at Baseline [facility] Work Phone: Clinical Notes 06-07-2022 to 01-20-2024 Note Date & Type Note Facility 01-20-2024 Discharge summary Note Date/Time January 20, 2024 11:16am [facility] [address] [place] [address] Discharge Summary Signed Patient: Loyda Scott MR#: [id number] : 1975 Acct:[id number] Age/Sex: 48 / F Adm Date: 4 Loc: Room: [address] [place] [address]: lOvin Rollins MD Copies to: MD Michelle Ibanez, CASH POSTING REPRESENTATIVE-C~ Providers Date of Discharge: 01/20/24 Discharging Provider: Olvin Rollins Primary Care Provider: 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 Consults: 01/18/24 04:37 Consult to Case Management Routine Comment: CM Reason for Consult: Batch Analyst-General Discharge Diagnosis (1) Cocaine abuse: (2) Generalized anxiety disorder: (3) Bipolar 2 disorder, major depressive episode: Final Diagnosis Final Discharge Diagnosis: Major depressive disorder Summary Hospital Course Hospital course: Ms. Scott is a 48 year old female with a reported history of bipolar depression,anxiety, cocaine use, hypertension, hyperlipidemia and hep C who presents for inpatient admission due to feeling suicidal with a plan to cut herself. At the time of the interview, she presents as overwhelmed states since last admission. She is well-known to our service and has had several psychiatric hospitalization. She reported stopping taking Wellbutrin after her prescriber at [facility] said it can worsen her anxiety. I discussed with her the risks and benefits of Wellbutrin as it might reduce cocaine craving and help with focusing. She prefers to be on a low-dose such as 150 mg p.o. daily. Patient is also prescribed Vyvanse and Xanax. Discussed risks of benzodiazepine which include potential for misuse, pharmacologic tolerance, cognitive dulling, and possible hastening of subsequent affective episodes. Pertinent stressors include recently moved to [place] and has relapsed on cocaine.States she feels worthless and believes she would be better off , feels no one would miss her and she would no longer be a burden. Pertinent symptoms include decreased interest in activities normally enjoyed, low energy and fatigue throughout the day even when sleeping adequately, feelings of worthlessness, guilt for no reason, and poor focus and concentrationin routine activities. Sleep has been poor and appetite fluctuates. The patient admits to thoughts of at times and said her plan would be to cut herself and bleed out. She reports several psychiatric hospitalization and previous suicide attempts. She denied recent mikhail or psychosis. Substance use history is relevant for using cocaine and THC occasionally. Patient reports she is feeling better. She states she wanted to restart her Wellbutrin at a lower dose as the 300 mg worsened her anxiety. She was social with peers on the unit. She denies SI/HI and verbalized the intent to notify staff if she has such thoughts. Her affect is brighter on exam. She continues vincenzo compliant with prescribed medications and is visible within the unit milieu. She has been working with assistant case manager on her aftercare she agreed to continuethe current medications regimen. She understands risks, benefits, and indications of current medication regimen. She has not history of recent suicide attempts, presented as future oriented, participated in group activities, articulated needs appropriately, and displayedno self-harm behaviors. Imminent risk is low given factors noted above. She denied any current symptom that would pose a threat to self or others. Further inpatient hospitalization unlikely to mitigate chronic suicide risk, and pt agrees to f/u with outpatient psych care. We also discussed benefits of outpatient CBT and DBT to help with depression and substance use. She states she is looking forward to spending the weekend with her family. Discharge disposition Home Overall, she has a positive mood and attitude towards life. Appearance: dressed casually Mental Status: mental status grossly normal Mood: Euthymic mood Affect: Normal affect Speech and Movement: speech and movement normal and speech clear Attitude: cooperative Thought Process: normal Thought Content: Denied hallucinations, no homicidality and no suicidality Insight: fair Judgment: fair Impulse control: fair Time spent discussing smoking cessation with patient: more than 10 minutes Condition Condition at Discharge: Stable Time Spent with Patient Time spent providing/coordinating discharge services (# min): 93 Discharge Plan Discharge Plan Patient Disposition: Home Activity: No Activity Restriction Diet: Regular Additional Instructions: Important Contact Information You can call [facility] Inpatient Behavioral Health at [phone] any time day or night if you have emergent questions or question regarding discharge instructions. If at any time you are feeling an increase inyour psychiatric symptoms, call your physician or behavioral healthcare provider. If any time you have thoughts of harming yourself or others contact one of the following: Call 8 (available 25/04) Crisis Text Line (available 25/04) text 4HOPE to [phone] [facility] Hope Line (available 8 a.m. Midnight) call [phone] ([phone]) Prescriptions: No Action alprazolam 1 mg tablet 1 mg PO BID 30 Days Qty: 60 0RF levothyroxine 75 mcg tablet 75 mcg PO QAM 30 Days Qty: 30 0RF doxepin 100 mg capsule 100 mg PO HS 30 Days Qty: 30 0RF bupropion HCl 300 mg tablet extended release 24 hr 300 mg PO DAILY 30 Days Qty: 30 0RF lisdexamfetamine [Vyvanse] 30 mg capsule 30 mg PO DAILY 7 Days Qty: 7 0RF Follow Up: SHAYAN Ly [Other] - 01/24/24 8:00 am (Sees Elsy Shearer.) NOMs, Behavioral Health [Other] (Counseling with Cam. ) 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, CASH POSTING REPRESENTATIVE-C [Primary Care Provider] - (Contact your PCP with medical needs. ) Exam Physical Exam Vital Signs: Temp Pulse Resp BP Pulse Ox O2 Del Method 97.6 F 70 18 104/69 97 Room Air 01/20/24 07:30 01/20/24 07:30 01/20/24 07:30 01/20/24 07:30 01/20/24 07:30 01/20/24 07:30 Documented By: Olvin Rollins MD 4 [id number] Signed By: <Electronically signed by Olvin Rollins MD> 01/20/24 1116 [facility] Work Phone: 1(886) 231-604104-19-2024 Hospital Discharge instructions Additional Instructions Important Contact Information You can call [facility]patient [facility] Health at [phone] any time day or night if you have emergent questions or question regarding discharge instructions. If at any time you are feeling an increase in your psychiatric symptoms, call your physician or behavioral healthcare provider. If any time you have thoughts of harming yourself or others contact one of the following: Call 8-8 (available 25/04) Crisis Text Line (available 25/04) text 4HOPE to [phone] [facility] Hope Line (available 8 a.m. Midnight) call [phone] ([phone]) [facility] Work Phone: 1(158) 869-643904-18-2024 Progress note Author Olvin tavares [facility] January 19, 2024 7:59am Note Date/Time January 19, 2024 7:5 2am [facility] [address] [place] [address] Psychiatry Progress Note Signed Patient: Loyda Scott MR#: [id number] : 1975 Acct:[id number] Age/Sex: 48 / F Adm Date: 4 Loc: Room: [address] [place] [address] Type : ADM IN Attending Dr: Olvin Rollins MD Copies to: ~ Date of Service: 01/19/2024 Subjective Subjective Narrative: Ms. Scott said she wants to give the 150 mg PO Q daily of Wellbutrin more time. She does not prefer any med adjustments. She wants to switch Xanax to Klonopin which is a safer choice. She is planning to talk to her outpatient doctor about this. No SI/HI. Sleep and appetite are ok. Appearance: dressed casually Mental Status: mental status grossly normal Mood: Anxious mood Affect: Normal affect Speech and Movement: speech and movement normal and speech clear Attitude: cooperative Thought Process: normal Thought Content: Denied hallucinations, no homicidality and no suicidality Insight: fair Judgment: fair Impulse control: fair Exam Physical Exam Vital Signs: Temp Pulse Resp BP Pulse Ox O2 Del Method 97.7 F 75 16 117/80 97 Room Air 01/18/24 22:25 01/18/24 22:25 01/18/24 22:25 01/18/24 22:25 01/18/24 22:25 01/18/24 22:25 Assessment/Plan Assessment/Plan (1) Cocaine abuse: (2) Generalized anxiety disorder: (3) Bipolar 2 disorder, major depressive episode: Plan Continue current treatment. Monitor suicidal behaviors for safety of self (15-minute face check). Recommend attending groups and psychoeducation for building coping skills. Typical short- and long-term side effects of the proposed medication regimen, including contraindications and clinically significant interactions, were discussed with the patient. Side effects include but not limited to sedation, suicide risk with antidepressants, overdose, hypo or hypertension, rash, movement disorders (TD, EPS), overdose, weight gain, and appetite changes. Patient was advised to avoid driving, drinking or operating heavy machinery while taking psychiatric meds. Patient should reach out to medical provider ifany of side effects occur. Patient voiced understanding of benefits and agreement with the treatment plan. Targeted symptoms and signs, possible therapeutic benefit, side effect and riskswere discussed. Case management will work on coordinating a safe discharge plan. I have reviewed evaluations by other providers (ER notes, nurses and staff). Prognosis: Factors to be considered are the chronicity and severity of the symptoms and signs, associated comorbidity, and differential diagnosis-motivation to get in treatment, response to treatment, adherence to treatment recommendations, and using skills. The patient's verbal consent was provided. Documented By: Olvin Rollins MD 4 [id number] Signed By: <Electronically signed by Olvin Rollins MD> 01/19/[address] [facility] Work Phone: 1(153) 771-402304-17-2024 History and physical note Author Olvin tavares [facility] January 18, 2024 10:05am Note Date/Time January 18, 2024 10: 05am [facility] [address] [place] [address] Psychiatry H&P Signed Patient: Loyda Scott MR#: [id number] : 1975 Acct:[id number] Age/Sex: 48 / F Adm Date: 4 Loc: Room: [address] [place] [address] Type: ADM IN Attending Dr: Olvin Rollins MD Copies to: MD Michelle Ibanez NP-C~ Date of Service: 01/18/2024 HPI History of Present Illness History of present illness: Ms. Scott is a 48 year old female with a reported history of bipolar depression,anxiety, cocaine use, hypertension, hyperlipidemia and hep C who presents for inpatient admission due to feeling suicidal with a plan to cut herself. At the time of the interview, she presents as overwhelmed states since last admission. She is well-known to our service and has had several psychiatric hospitalization. She reported stopping taking Wellbutrin after her prescriber at [facility] said it can worsen her anxiety. I discussed with her the risks and benefits of Wellbutrin as it might reduce cocaine craving and help with focusing. She prefers to be on a low-dose such as 150 mg p.o. daily. Patient is also prescribed Vyvanse and Xanax. Discussed risks of benzodiazepine which include potential for misuse, pharmacologic tolerance, cognitive dulling, and possible hastening of subsequent affective episodes. Pertinent stressors include recently moved to [place] and has relapsed on cocaine.States she feels worthless and believes she would be better off , feels no one would miss her and she would no longer be a burden. Pertinent symptoms include decreased interest in activities normally enjoyed, low energy and fatigue throughout the day even when sleeping adequately, feelings of worthlessness, guilt for no reason, and poor focus and concentrationin routine activities. Sleep has been poor and appetite fluctuates. The patient admits to thoughts of at times and said her plan would be to cut herself and bleed out. She reports several psychiatric hospitalization and previous suicide attempts. She denied recent mikhail or psychosis. Substance use history is relevant for using cocaine and THC occasionally. Mental Status: mental status grossly normal Mood: depressed mood Affect: constricted affect Speech and Movement: speech and movement normal and speech clear Attitude: cooperative Thought Process: normal Thought Content: Denied hallucinations, no homicidality and positive suicidality Insight: limited Judgment: limited Review of Systems Constitutional: Pt denies fatigue, malaise. Neuro: Denies dizziness/lightheadedness. Denies TBI, seizure, memory loss. Denies numbness/tingling in extremities HEENT: Denies vision/hearing changes. Pulmonary: Denies SOB, dyspnea, cough, wheezing. Cardiac: Denies chest pain/pressure. Denies edema, palpitations. GI: Denies abdominal pain, heartburn, N/V. Denies constipation and diarrhea : Denies dysuria, hematuria, polyuria. Physical exam General: not in any acute distress Skin: intact HEENT: head atraumatic, face symmetrical. Pulm: Breathing normally without excessive effort Cardio: Regular rate and rhythm Abdomen: Normal inspection Musculoskeletal: Moves all extremities, normal strength all extremities. Neuro: Pt alert, oriented x3. Gait normal. CNI: Intact, normal olfaction CNII: Visual david intact CNIII,IV,: EOM intact, no nystagmus. CNV: Sensation intact to light touch. CNVII: Raises eyebrows, smile/frown, puff out cheeks symmetrically. CNVIII: Hearing intact bilaterally. CNIX,X: Voice normal, soft palate elevation normal, symmetrical. CNXI: Shoulder shrug strong, equal bilaterally. CNXII: Tongue protrusion midline [facility] Medical History (Updated 10/21/23 @ 00:00 by Background Daemon) Depression Panic disorder PTSD (post-traumatic stress disorder) Hyperlipidemia Stroke Irritable bowel disease GERD (gastroesophageal reflux disease) Head injury 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 Rheumatoid arthritis Hepatitis C Hypothyroid Hypertension Anxiety Bipolar 1 disorder, depressed, mild Surgical History (Updated 10/10/23 @ 13:03 by Rowan Baez RN) History of Cervical vertebral fusion C5/C6 Titanium Black H/O: hysterectomy Family History Father Alcohol abuse Mental health disorder Hypertension Grandparent Alcohol abuse History of open heart surgery Mental health disorder Grandchild Social History Smoking Status: Current every day smoker Tobacco Type: e-cigarettes Substance Use Type: Marijuana, Crack and Cocaine Social History Comments: Patient lives in an apartment by herself Meds Medications and Allergies Allergies metronidazole [From Flagyl] Allergy (Unknown, Verified 01/18/24 05:36) Vomiting nalbuphine [From Nubain] Allergy (Unknown, Verified 01/18/24 05:36) Unknown Reaction sulfamethoxazole [From Bactrim] Allergy (Unknown, Verified 01/18/24 05:36) Vomiting tramadol [From Ultram] Allergy (Unknown, Verified 01/18/24 05:36) Seizure trimethoprim [From Bactrim] Allergy (Unknown, Verified 01/18/24 05:36) Vomiting buspirone [From BuSpar] Adverse Reaction (Verified 01/18/24 05:36) Anxiety diphenhydramine [From Benadryl] Adverse Reaction (Verified 01/18/24 05:36) Anxiety hydroxyzine [From Vistaril] Adverse Reaction (Verified 01/18/24 05:36) Agitated olanzapine [From Zyprexa] Adverse Reaction (Verified 01/18/24 05:36) Unknown Reaction Home Medications alprazolam 1 mg tablet 1 mg PO BID 30 days #60 tabs 10/11/23 [Rx Confirmed 01/18/24] bupropion HCl 300 mg 24 hr tablet, extended release 300 mg PO DAILY 30 days #30 tabs 10/11/23 [Rx Confirmed 01/18/24] doxepin 100 mg capsule 100 mg PO HS 30 days #30 caps 10/11/23 [Rx Confirmed 01/18/24] levothyroxine 75 mcg tablet 75 mcg PO QAM 30 days #30 tabs 10/11/23 [Rx Confirmed 01/18/24] lisdexamfetamine 30 mg capsule (Vyvanse) 30 mg PO DAILY 7 days #7 caps 10/13/23 [Rx Confirmed 01/18/24] Exam Physical Exam Vital Signs: Temp Pulse Resp BP Pulse Ox O2 Del Method 97.4 F L 91 16 114/80 96 Room Air 01/18/24 07:30 01/18/24 07:30 01/18/24 07:30 01/18/24 07:30 01/18/24 07:30 01/18/24 07:30 Assessment/Plan (1) Cocaine abuse: (2) Generalized anxiety disorder: (3) Bipolar 2 disorder, major depressive episode: Plan Admit to 1S for management of depression and to ensure safety of self due to SI. Hold Vyvanse. Reduce Wellbutrin to 150 mg p.o. daily. Continue rest of home meds. Monitor suicidal behaviors for safety of self (15-minute face check). Recommend attending groups and psychoeducation for building coping skills. Typical short- and long-term side effects of the proposed medication regimen, including contraindications and clinically significant interactions, were discussed with the patient. Side effects include but not limited to sedation, suicide risk with antidepressants, overdose, hypo or hypertension, rash, movement disorders (TD, EPS), overdose, weight gain, and appetite changes. Patient was advised to avoid driving, drinking or operating heavy machinery while taking psychiatric meds. Patient should reach out to medical provider ifany of side effects occur. Patient voiced understanding of benefits and agreement with the treatment plan. Targeted symptoms and signs, possible therapeutic benefit, side effect and riskswere discussed. Case management will work on coordinating a safe discharge plan. I have reviewed evaluations by other providers (ER notes, nurses and staff). Prognosis: Factors to be considered are the chronicity and severity of the symptoms and signs, associated comorbidity, and differential diagnosis-motivation to get in treatment, response to treatment, adherence to treatment recommendations, and using skills. The patient's verbal consent was provided. Documented By: Olvin Rollins MD 4 1000 Signed By: <Electronically signed by Olvin Rollins MD> 01/18/24 1005 [facility] Work Phone: 1(699) 295-224303-21-2024 Miscellaneous Notes* Telephone Encounter - Rachel Rodriguez CMA - 12/22/2023 10:42 AM EDT Pharmacy is requesting 90 day refill please documented in [facility] encounterAd[facility] CenterAm[facility]24 Telephone encounter Note* Telephone Encounter - Rachel Rodriguez CMA - 12/22/2023 10:42 AM EDT Pharmacy is requesting 90 day refill please [facility]03-04-2024 Miscellaneous Notes* Telephone Encounter - Jennifer Santiago CMA - 12/05/2023 8:58 AM EST ----- Message from PA Townsend sent at 12/03/2023 11:48 PM EST ----- Please let her know vitamin B is slightly elevated, so she can cut back a little if she is taking asupplement. Estradiol level indicates menopause. Liver enzymes are slightly elevated in comparison to the past. We should continue to monitor or check hepatitis C level. I can place the order if she is agreeable. Other labs are WNL. If she has any questions, please schedule appointment. Video/phone visit would be fine. Thank you. * Telephone Encounter - Jennifer Santiago CMA - 12/05/2023 8:58 AM EST Called and informed patient. She states she does not want the Hep C at this time. She states understanding the rest and did not have an questions. [facility] Telephone encounter Note* Telephone Encounter - Jennifer Santiago CMA - 12/05/2023 8:58 AM EST ----- Message from PA Townsend sent at 12/03/2023 11:48 PM EST ----- Please let her know vitamin B is slightly elevated, so she can cut back a little if she is taking asupplement. Estradiol level indicates menopause. Liver enzymes are slightly elevated in comparison to the past. We should continue to monitor or check hepatitis C level. I can place the order if she is agreeable. Other labs are WNL. If she has any questions, please schedule appointment. Video/phone visit would be fine. Thank you. [facility]03-04-2024 Telephone encounter Note* Telephone Encounter - Jennifer Santiago CMA - 12/05/2023 8:58 AM EST Called and informed patient. She states she does not want the Hep C at this time. She states understanding the rest and did not have an questions. [facility]02-29-2024 History of Present illness Narrative* 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 APRN-WAREHOUSE ATTENDANT - 12/01/2023 11:00 AM EST Subjective Patient ID: Loyda Scott is a 48 y.o. female. HPI Loyda presents to the office to establish care. Her previous PCP was in [place], but she would like someone closer to home. She has no concerns today except she feels that her hormones are off balance. Hx: HTN- amlodipine 2.5 Hyperlipidemia- was on atorvastatin, but recently stopped taking. Hypothyroidism- synthroid 75 Back pain, Chronic pain, fibromyalgia, RA- feels that it is under good control right now. Not following with rheumatology. Bipolar, anxiety, ADHD- following with psych- Vyvansse, Xanax 1 mg BID PRN. Recently stopped wellbutrin one week ago. Had seizures, believes this was d/t to side effects from medications. But has not had a seizure in 15 years. Followed with neurology in the past. + hep C in the past. But states that she was told that her level is so low she does not need treatment. Hx of overdose.Hx of cocaine abuse. States no longer abusing. Vapes and smokes. Past Surgical History: Procedure Laterality Date ABDOMINAL SURGERY exploratory states she had infection ABLATION ENDOMETRIAL HTA N/A 05/16/2017 Performed by Yusuf Campuzano MD at [facility] AM[facility]UL[facility]ORY SURGERY ANTERIOR CERVICAL DISCECTOMY W/ FUSION C5 and C6 CERVICAL FUSION SECTION 12/05/2009 D AND C HYSTEROSCOPY N/A 05/16/2017 Performed by Yusuf Campuzano MD at [facility]ORY SURGERY HYSTERECTOMY complete Family History Problem Relation Age of Onset No Known Problems Mother Heart disease Maternal Grandfather Obesity Paternal Grandfather Hypertension Paternal Grandfather Breast cancer Neg Hx Ovarian cancer Neg Hx Immunization History Administered Date(s) Administered COVID-19 Vaccine, vector-nr, rS-Ad26, PF, 0.5mL 02/16/2021 COVID-19, mRNA, LNP-S, PF, 30mcg/0.3mL Dose 09/23/2021 Covid-19, Mrna, Lnp-s, Bivalent, Pf, 30mcg/0.3 ml 09/11/2022 Tdap 09/09/2017 The following portions of the patient's history were reviewed and updated as appropriate: allergies, current medications, past family history, past medical history, past social history, past surgicalhistory, problem list, and medication reconciliation was completed including current medication andpost discharge medication. Review of Systems Constitutional: Negative for chills, diaphoresis, fatigue, fever and unexpected weight change. HENT: Negative. Eyes: Negative. Respiratory: Negative for cough, chest tightness, shortness of breath and wheezing. Cardiovascular: Negative for chest pain, palpitations and leg swelling. Gastrointestinal: Negative for abdominal pain, diarrhea, nausea and vomiting. Endocrine: Negative for polydipsia, polyphagia and polyuria. Genitourinary: Negative for difficulty urinating, frequency, hematuria and urgency. Musculoskeletal: Negative for arthralgias, gait problem, joint swelling and neck pain. Skin: Negative. Neurological: Negative for dizziness, syncope, weakness, light-headedness, numbness and headaches. Psychiatric/Behavioral: Negative for self-injury and suicidal ideas. Feels like hormones are off Objective Physical Exam Vitals and nursing note reviewed. Constitutional: General: She is not in acute distress. Appearance: Normal appearance. She is well-developed. She is not ill-appearing. HENT: Head: Normocephalic and atraumatic. Right Ear: Tympanic membrane, ear canal and external ear normal. Left Ear: Tympanic membrane, ear canal and external ear normal. Nose: Nose normal. Mouth/Throat: Mouth: Mucous membranes are moist. Pharynx: Oropharynx is clear. Eyes: Extraocular Movements: Extraocular movements intact. Pupils: Pupils are equal, round, and reactive to light. Neck: Vascular: No carotid bruit. Cardiovascular: Rate and Rhythm: Normal rate and regular rhythm. Pulses: Normal pulses. Heart sounds: Normal heart sounds. No murmur heard. Pulmonary: Effort: Pulmonary effort is normal. No respiratory distress. Breath sounds: Normal breath sounds. No wheezing, rhonchi or rales. Chest: Chest wall: No tenderness. Abdominal: General: Bowel sounds are normal. Palpations: Abdomen is soft. Tenderness: There is no abdominal tenderness. Musculoskeletal: General: Normal range of motion. Cervical back: Normal range of motion and neck supple. No rigidity or tenderness. Right lower leg: No edema. Left lower leg: No edema. Lymphadenopathy: Cervical: No cervical adenopathy. Skin: General: Skin is warm and dry. Capillary Refill: Capillary refill takes less than 2 seconds. Findings: No rash. Neurological: General: No focal deficit present. Mental Status: She is alert and oriented to person, place, and time. Motor: No weakness. Psychiatric: Mood and Affect: Mood normal. Behavior: Behavior normal. Assessment/Plan The OARRS/MAPPS database was reviewed today and found to be appropriate. No indication of medication diversion, or non compliance. Blood pressure elevated today, Monitor BP. Discussed possibly increasing amlodipine, but she would like to wait. Discussed lifestyle changes for BP, she will work on diet and exercise. Discussed that her feeling like her hormones are off could be a result of stopping the wellbutrinrecently. However, we can check labs per patient request. Refill levothyroxine for now, we will make adjustments pending labs. We also discussed natural supplements for mood and possible menopausal symptoms, she states she will try OTC medications. FU 3 months for BP check or sooner PRN. Diagnoses and all orders for this visit: Primary hypertension - Comprehensive metabolic panel; Future - Hemoglobin A1c; Future Other specified hypothyroidism - Cancel: TSH with Reflex; Future - TSH with Reflex; Future Fibromyalgia - CBC auto differential; Future - Erythrocyte Sedimentation Rate (ESR); Future - C-reactive protein; Future - Iron and TIBC; Future - Folate; Future Anxiety - Vitamin D 25 hydroxy; Future - Vitamin B12; Future - Iron and TIBC; Future - Folate; Future - Estradiol; Future Encounter for lipid screening for cardiovascular disease - Lipid profile; Future Class 2 severe obesity with serious comorbidity and body mass index (BMI) of 38.0 to 38.9 in adult,unspecified obesity type Encounter to establish care Other orders - levothyroxine (SYNTHROID, LEVOTHROID) 75 MCG tablet; Take 1 tablet (75 mcg total) by mouth in themorning. PA Townsend 12/03/23 2303 documented [facility] encounterBer[facility]01-[facility] Discharge summary Author Miah Abreu [facility] October 13, 2023 11:51am Note Date/Time October 13, 2023 1 1:49am [facility] [address] [place] [address] Discharge Summary Signed Patient: Loyda Scott MR#: [id number] : 1975 Acct:[id number] Age/Sex: 48 / F Adm Date: 4 Loc: Room: [address] [place] [address]: Miah Abreu MD Copies to: NON STAFF Miah Abreu MD~ Providers Date of Discharge: 10/13/23 Discharging Provider: Miah Abreu Primary Care Provider: NON STAFF Consults: 10/10/23 12:40 Consult to Case Management Routine Discharge Diagnosis (1) Stimulant use disorder: (2) Major depress dis, severe: Final Diagnosis Final Discharge Diagnosis: Major depressive disorder Stimulant use disorder Summary Hospital Course Hospital course: According to admission note: Ms. Scott is a 48 year old female who presented dueto concern for depression and overdose of trazodone. Upon assessment, patient reported that she relapsed on cocaine. She reported that she was feeling depressed and overdosed on trazodone. She reported that she took roughly 800 mg and is starting to have some urinary retention. She reported that she wanted to sleep and never wake up. She stated that she has been dealing with significant depression. She stated that she was keeping up with her medications. She reported that she feels like they were not helping fully. She does report that she has been experiencing some hallucinations as well. She stated that she would like some medication adjusted so she can start feeling better. Past psych history: Depression and substance use issues Past hospitalizations: History of past psychiatric hospitalizations Past suicide attempts: History of suicide attempt by overdose Previous medications: BuSpar, Zyprexa, Trintellix, Xanax, Cymbalta, Neurontin, Alcohol and drug use: Reported meth, cocaine and marijuana use. Living: With friends and family Patient was restarted on previously tolerated medications. Geodon was added to help with her reported hallucinations. She did not appear internally stimulatedduring hospital course. She did not have any conflict with peers or staff. Sheattended groups and socialize with peers appropriately. She did not exhibit anybehavior concerning for suicidality during her hospital course. She had gradualimprovement of her symptoms during hospitalization. On the day of discharge, she reported that she is feeling better. She denied any depression or suicidal thoughts. She was comfortable with discharge plan home and following up with outpatient services. She was provided with resources on rehab facilities, but later refused to go and stated that she needs to go home. Condition Condition at Discharge: Stable Status at [...] Pulse Ox O2 Del Method 97.9 F 102 H 18 129/72 95 Room Air 10/13/23 07:30 10/13/23 07:30 10/12/23 19:48 10/13/23 08:30 10/13/23 07:30 10/13/23 07:30 Discharge Plan Discharge Plan Patient Disposition: Home Activity: No Activity Restriction Diet: Regular Additional Instructions: Important Contact Information You can call [facility] at [phone] any time day or night if you have emergent questions or question regarding discharge instructions. If at any time you are feeling an increase inyour psychiatric symptoms, call your physician or behavioral healthcare provider. If any time you have thoughts of harming yourself or others contact one of the following: Call (available 25/04) Crisis Text Line (available 25/04) text 4HOPE to [phone] [facility] Line (available 8 a.m. Midnight) call [phone] ([phone]) Regular Diet No Activity Restrictions Instructions: Depression, Adult (DC), [facility] [place] Instructions Prescriptions: New ziprasidone HCl 20 mg Capsule 20 mg PO DAILY.WITH.SUPPER Qty: 30 0RF lisdexamfetamine [Vyvanse] 30 mg capsule 30 mg PO DAILY 7 Days Qty: 7 0RF Continued alprazolam 1 mg tablet 1 mg PO BID 30 Days Qty: 60 0RF amlodipine [Norvasc] 2.5 mg tablet 2.5 mg PO DAILY 30 Days Qty: 30 0RF levothyroxine 75 mcg tablet 75 mcg PO QAM 30 Days Qty: 30 0RF doxepin 100 mg capsule 100 mg PO HS 30 Days Qty: 30 0RF bupropion HCl 300 mg tablet extended release 24 hr 300 mg PO DAILY 30 Days Qty: 30 0RF Discontinued lisdexamfetamine [Vyvanse] 30 mg capsule 30 mg PO DAILY Patient Comments: TAKE ONE CAPSULE BY MOUTH ONCE DAILY IN THE MORNING Follow Up: [facility] [Other] (facility to manage all care) Documented By: Miah Abreu MD 10/13/23 1147 Signed By: <Electronically signed by Miah Abreu MD> 10/13/23 1151 [facility] Work Phone: 1(429) 551-135901-11-2024 Hospital Discharge instructions Additional Instructions Important Contact Information You can call [facility] at [phone] any time day or night if you have emergent questions or question regarding discharge instructions. If at any time you are feeling an increase in your psychiatric symptoms, call your physician or behavioral healthcare provider. If any time you have thoughts of harming yourself or others contact one of the following: Call (available 25/04) Crisis Text Line (available 25/04) text 4HOPE to [phone] [facility] Line (available 8 a.m. Midnight) call [phone] ([phone]) Regular Diet No Activity [facility]ions[facility] Work Phone: 1(565) 842-417901-10-2024 Progress note Author Miah Abreu [facility] October 12, 2023 11:10am Note Date/Time October 12, 2023 1 1:09am [facility] [address] [place] [address] Psychiatry Progress Note Signed Patient: Loyda Scott MR#: [id number] : 1975 Acct:[id number] Age/Sex: 48 / F Adm Date: 4 Loc: Room: [address] [place] [address] Type : ADM IN Attending Dr: Miah Abreu MD Copies to: ~ Date of Service: 10/12/2023 Subjective Subjective Narrative: Ms. Scott reported that she was sick only. She reported that she had some diarrhea and her stomach was cramping. She stated that she is aware that her medications were not able to be filled because it was too early. She stated that her mom may be able to bring the medication for her. Mental Status Exam: Appearance: grossly normal Mental Status: mental status grossly normal Mood: Improving mood Affect: Normal affect Speech and Movement: speech and movement normal and speech clear Attitude: cooperative Thought Process: normal Thought Content: no hallucinations, no homicidality, denied suicidality Insight: fair Judgment: fair Exam Physical Exam Vital Signs: Temp Pulse Resp BP Pulse Ox O2 Del Method 98.1 F 105 H 16 102/70 93 L Room Air 10/12/23 07:30 10/12/23 07:30 10/12/23 07:30 10/12/23 07:30 10/12/23 07:30 10/12/23 08:35 Objective Labs Labs: Abnormal Labs 10/11/23 10:17 Cholesterol 224 H Assessment/Plan Assessment/Plan (1) Stimulant use disorder: (2) Major depress dis, severe: Plan Patient doing improvement. Anticipate discharge tomorrow Continue doxepin 100 mg and Wellbutrin 300 mg daily Continue Xanax as needed Continue Geodon 20 mg at dinner to help with hallucinations and mood stabilization Continue to monitor mental status Encourage group participation and medication compliance Risk benefits alternatives explained Documented By: Miah Abreu MD 10/12/23 1107 Signed By: <Electronically signed by Miah Abreu MD> 10/12/23 1110 [facility] Work Phone: 1(920) 871-347401-09-2024 Progress note Author Miah Abreu [facility] October 11, 2023 11:22am Note Date/Time October 11, 2023 11 :22am [facility] [address] [place] [address] Psychiatry Progress Note Signed Patient: Loyda Scott MR#: [id number] : 1975 Acct:[id number] Age/Sex: 48 / F Adm Date: 4 Loc: Room: [address] [place] [address] Type : ADM IN Attending Dr: Miah Abreu MD Copies to: ~ Date of Service: 10/11/2023 Subjective Subjective Narrative: Ms. Scott reported that she is feeling better. She stated that she still has some urinary retention but feels that it is better. She reported still having some dizziness and did have a fall in the shower. She denied any hallucinationscurrently. She reported she slept okay and appetite is been normal. She deniedany suicidal thoughts. She expressed interest in going to [facility] for rehab. Mental Status Exam: Appearance: grossly normal Mental Status: mental status grossly normal Mood: Improving mood Affect: Normal affect Speech and Movement: speech and movement normal and speech clear Attitude: cooperative Thought Process: normal Thought Content: no hallucinations, no homicidality, denied suicidality Insight: fair Judgment: fair Exam Physical Exam Vital Signs: Temp Pulse Resp BP Pulse Ox O2 Del Method 97.7 F 87 18 129/76 95 Room Air 10/11/23 07:30 10/11/23 07:30 10/11/23 07:30 10/11/23 08:20 10/11/23 07:30 10/11/23 09:00 Objective Labs Labs: Abnormal Labs 10/10/23 10/10/23 11:50 11:50 Urine Appearance Cloudy A Ur Leukocyte Esterase 4+ H Urine WBC Innumerable H U Benzodiazepines Scrn Positive H Urine Cocaine Screen Positive H U Marijuana (THC) Screen Positive H Assessment/Plan Assessment/Plan (1) Stimulant use disorder: (2) Major depress dis, severe: Plan Patient showing improvement and denied current suicidal thoughts. Hallucinations also improved We will follow-up with urine microbiology given potential UTI Continue doxepin 100 mg and Wellbutrin 300 mg daily Continue Xanax as needed Continue Geodon 20 mg at dinner to help with hallucinations and mood stabilization Continue to monitor mental status Encourage group participation and medication compliance Risk benefits alternatives explained Documented By: Miah Abreu MD 10/11/23 112 Signed By: <Electronically signed by Miah Abreu MD> 10/11/23 1122 [facility] Work Phone: 1(306) 820-141801-08-2024 History and physical note Author Miah Abreu [facility] October 10, 2023 1:43pm Note Date/Time October 10, 2023 1: 39pm [facility] [address] [place] [address] Psychiatry H&P Signed Patient: Loyda Scott MR#: [id number] : 1975 Acct:[id number] Age/Sex: 48 / F Adm Date: 4 Loc: Room: [address] [place] [address] Type: ADM IN Attending Dr: Miah Abreu MD Copies to: NON STAFF Miah Abreu MD~ Date of Service: 10/10/2023 HPI History of Present Illness History of present illness: Ms. Scott is a 48 year old female who presented due to concern for depression and overdose of trazodone. Upon assessment, patient reported that she relapsed on cocaine. She reported that she was feeling depressed and overdosed on trazodone. She reported that she took roughly 800 mg and is starting to have some urinary retention. She reported that she wanted to sleep and never wake up. She stated that she has been dealing with significant depression. She stated that she was keeping up with her medications. She reported that she feels like they were not helping fully. She does report that she has been experiencing some hallucinations as well. She stated that she would like some medication adjusted so she can start feeling better. Past psych history: Depression and substance use [...] Denies abnormal movements Psychiatric: Reports depression and suicidal ideation, reported AH Physical exam: Const: cooperative Nutritional Appearance: average [...] to inspection and non-distended : deferred Skin: no rashes or lesions noted Neuro: CNI: Normal olfaction CNI: normal olfaction CNII: Visual david intact, CNIII,IV,: EOM intact, no nystagmus. Pupils equal, round, reactive to light and accommodation, CNV: [...] status grossly normal Mood: dysthymic mood Affect: dysphoric affect Speech and Movement: speech and movement normal and speech clear Attitude: cooperative Thought Process: normal Thought Content: reported Auditory hallucinations, no homicidality, reported suicidality Insight: fair Judgment: fair [facility] Medical History (Updated 10/10/23 @ 13:03 by Rowan Baez RN) Anxiety Bipolar 1 disorder, depressed, mild Depression GERD (gastroesophageal reflux disease) Head injury Hepatitis C Hyperlipidemia Hypertension Hypothyroid Irritable bowel disease Panic disorder PTSD (post-traumatic stress disorder) Rheumatoid arthritis 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 Stroke Surgical History (Updated 10/10/23 @ 13:03 by Rowan Baez RN) Cervical vertebral fusion C5/C6 Titanium Black H/O: hysterectomy History of Family History Father Alcohol abuse Mental health disorder Hypertension Grandparent Alcohol abuse History of open heart surgery Mental health disorder Grandchild Social History Smoking Status: Current every day smoker Tobacco Type: e-cigarettes Substance Use Type: Marijuana, Crack and Cocaine Substance Abuse Comment: Last used 10-09-23 Social History Comments: Patient lives in an apartment by herself Meds Medications and Allergies Allergies tramadol [From [...] Reaction (Verified 11/02/21 19:25) Vomiting Home Medications amlodipine 2.5 mg tablet (Norvasc) 2.5 mg PO DAILY 04/13/23 [History Confirmed 10/10/23] lisdexamfetamine 30 mg capsule (Vyvanse) 30 mg PO DAILY 04/13/23 [History Confirmed 10/10/23] bupropion HCl 300 mg 24 hr tablet, extended release 300 mg PO DAILY 04/23/23 [History Confirmed 10/10/23] alprazolam 1 mg tablet 1 mg PO BID 08/24/23 [History Confirmed 10/10/23] doxepin 100 mg capsule 100 mg PO HS 08/24/23 [History Confirmed 10/10/23] Exam Physical Exam Vital Signs: Temp Pulse Resp BP Pulse Ox O2 Del Method 97.9 F 110 H 20 128/80 96 Room Air 10/10/23 12:19 10/10/23 12:19 10/10/23 12:19 10/10/23 12:19 10/10/23 12:19 10/10/23 12:21 Results Labs Psychiatry Labs: 10/10/23 11:50 Urine Color Yellow Urine Appearance Cloudy A Urine pH 5.5 Ur Specific Sterling 1.012 Urine Protein Negative Urine Glucose (UA) Normal Urine Ketones Negative Urine Occult Blood Negative Urine Nitrite Negative Ur Leukocyte Esterase 4+ H Urine RBC 0-1 Urine WBC Innumerable H Assessment/Plan (1) Stimulant use disorder: (2) Major depress dis, severe: Plan Patient presenting due to concern for depression and suicidal ideation and recent overdose on trazodone We will follow-up with urine microbiology given potential UTI We will restart doxepin 100 mg and Wellbutrin 300 mg daily Continue Xanax as needed Will add Geodon 20 mg at dinner to help with hallucinations and mood stabilization Continue to monitor mental status Encourage group participation and medication compliance Risk benefits alternatives explained Documented By: Miah Abreu MD 10/10/23 1336 Signed By: <Electronically signed by Miah Abreu MD> 10/10/23 1343 [facility] Work Phone: 1([phone]) 840-696411-24-2023 Discharge summary Author Olvin tavares [facility] August 26, 2023 7:42am Note Date/Time August 26, 2023 7:39am [facility] [address] [place] [address] Discharge Summary Signed Patient: Loyda Scott MR#: [id number] : 1975 Acct:[id number] Age/Sex: 48 / F Adm Date: 3 Loc: Room: [address] [place] [address]: Olvin Rollins MD Copies to: [...] baby. [place] to being supportive. She said [...] Instructions: Important Contact Information You can call [facility] Inpatient [facility]al [facility] at [phone] any time day or night if you have emergent questions or question regarding discharge instructions. If at any time you are feeling an increase inyour psychiatric symptoms, call your physician or behavioral healthcare provider. If any time you have thoughts of harming yourself or others contact one of the following: Call 8-8 (available 25/04) Crisis Text Line (available 25/04) text 4HOPE to [phone] [facility] Hope Line (available 8 a.m. Midnight) call [phone] ([phone]) Prescriptions: New cephalexin 500 mg Capsule 500 [...] tablet 75 mcg PO DAILY Follow Up: [facility] [Other] (Sees Dr. Mendoza for psychiatric medications. Also sees Dr. Woo at this location for medical needs. ) [facility] (Sees Cam for counseling. ) Documented By: Olvin Rollins MD 3 0737 Signed By: <Electronically signed by Olvin Rollins MD> 08/26/[address] [facility] Work Phone: [phone]) 110-220411-24-2023 Hospital Discharge instructions Additional Instructions Important Contact Information You can call [facility] at [phone] any time day or night if you have emergent questions or question regarding discharge instructions. If at any time you are feeling an increase in your psychiatric symptoms, call your physician or behavioral healthcare provider. If any time you have thoughts of harming yourself or others contact one of the following: Call (available 25/04) Crisis Text Line (available 25/04) text 4HOPE to [phone] [facility] Hope Line (available 8 a.m. Midnight) call [phone] ([phone]) Regular Diet No Activity Restrictions Urine culture from [facility] with no growth, you do NOT have a urinary tract infection and do NOT need antibiotic at discharge. Liver enzymes mildly elevated. Hepatitis panel still pending at the time of your discharge. Please follow up with your primary care for further management, with history of untreated Hepatitis [facility] Work Phone: 1(330) 773-495111-23-2023 Consult note Author Jesus Callahan [facility] August 25, 2023 12:19pm Note Date/Time August 24, 2023 6:07pm [facility] [address] [place] [address] Hospitalist Consult Note Signed Patient: Loyda Scott MR#: [id number] : 1975 Acct:[id number] Age/Sex: 48 / F Adm Date: 3 Loc: Room: [address] [place] [address] Type: ADM IN Attending Dr: Olvin Rollins MD Copies to: NON STAFF MD Adele Ibanez APRN Michael R. Frings, DO~ HPI DATE OF CONSULTATION: 08/24/23 REQUESTING PROVIDER: Olvin Rollins Consult Narrative Reason for Consult: Hand pain and edema HPI: This is a-year-old female past medical history significant for hypertension, hyperlipidemia, hepatitis C, rheumatoid arthritis IBS, depression/anxiety, hypothyroid. , Anemia. Presented to the emergency department at [facility] August 23 with mental health concerns. [...] negative unless noted below or in HPI [facility] Medical History (Updated 08/24/23 @ [...] 100 Mg Capsule PO 08/23/24 21:59 HS [facility] Levothyroxine Sodium 75 mcg 08/24/23 07:30 08/24/23 [...] ESR, CRP Suspect UTI -Cephalexin initiated at [place] [facility], however squamous cells present may be [...] counseling Documented By: Adele Hunter APRN 08/04 Signed By: <Electronically signed by TANNER Hunter> 08/24/23 1829 <Electronically signed by Jesus Callahan DO> 08/25/23 1219 [facility] Work Phone: 1([phone]) 229-742711-23-2023 Progress note Author Olvin tavares [facility] August 25, 2023 8:40am Note Date/Time August 25, 2023 8:40am [facility] [address] [place] [address] Psychiatry Progress Note Signed Patient: Loyda Scott MR#: [id number] : 1975 Acct:[id number] Age/Sex: 48 / F Adm Date: 3 Loc: Room: [address] [place] [address] Type : ADM IN Attending Dr: Olvin [...] signed by Olvin Rollins MD> 08/25/23 0840 [facility] Work Phone: [phone]) 819-535211-22-2023 History and physical note Author Olvin tavares [facility] August 24, 2023 7:17am Note Date/Time August 24, 2023 7:12am [facility] [address] [place] [address] Psychiatry H&P Signed Patient: Loyda Scott MR#: [id number] : 1975 Acct:[id number] Age/Sex: 48 / F Adm Date: 3 Loc: Room: [address] [place] [address] Type: ADM IN Attending Dr: Olvin Rollins [...] baby. She has been [place] is trying to being supportive. 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 [employer] Other 07-30-2023 Discharge summary Author Miah Abreu [facility] May 01, 2023 12:16pm Note Date/Time May 01, 2023 11:3 0am [facility] [address] [place] [address] Discharge Summary Signed Patient: Loyda Scott MR#: [id number] : 1975 Acct:[id number] Age/Sex: 47 / F Adm Date: 3 Loc: 1S Room: [address] [place] [address]: Serafin Rollins MD Copies to: [...] Ms. Scott adds that she went to [facility] last night to have her wrist looked [...] THE ONE WEEK FOLLOW UP. [address] [place] [address] PH: [phone] Dressing Type: TX TO LEFT WRIST; WARM SOAPY SOAKS WITH HIBICLENS TID FOR 15 MINUTES. ALLOW TO AIR DRY AND THEN REDRESS WITH XERFORM, TELFA, AND GAUZE. THREE TIMES A DAY. Instructions: Bipolar Disorder (DC), [facility] [place] Instructions Prescriptions: New doxycycline [...] 75 mcg tablet 75 mcg PO DAILY.0630 Patient Comments: TAKE ONE TABLET BY MOUTH [...] on Tuesday to set up appointment Cam) [facility] Counseling Hotline [Outside] Efrain Alcazar II, MD [Active Staff] - (Please call on Tuesday to set up appointment in 5-7 days.) Documented By: Miah Abreu MD 05/01/23 1130 Signed By: <Electronically signed by Miah Abreu MD> 05/01/[address] [facility] Work Phone: 1(983) 341-399207-29-2023 Progress note Author Miah Abreu [facility] April 30, 2023 11:22am Note Date/Time April 30, 2023 11:2 2am [facility] [address] [place] [address] Psychiatry Progress Note Signed Patient: Loyda Scott MR#: [id number] : 1975 Acct:[id number] Age/Sex: 47 / F Adm Date: 3 Loc: Room: 4O1587-5 Type : ADM IN Attending Dr: Serafin [...] By: <Electronically signed by Miah Abreu MD> 04/30/231121 [facility] Work Phone: 1(180) 121-193607-28-2023 Progress note Author Miah Abreu [facility] April 29, 2023 1:04pm Note Date/Time April 29, 2023 1:04 pm [facility] [address] [place] [address] Psychiatry Progress Note Signed Patient: Loyda Scott MR#: [id number] : 1975 Acct:[id number] Age/Sex: 47 / F Adm Date: 3 Loc: 1S Room: 4E9039-4 Type : ADM IN Attending Dr: Serafin [...] signed by Miah Abreu MD> 04/29/[address] [facility] Work Phone: 1(650) 470-923407-27-2023 Progress note Author Miah Abreu [facility] April 28, 2023 12:01pm Note Date/Time April 28, 2023 12:0 1pm [facility] [address] [place] [address] Psychiatry Progress Note Signed Patient: Loyda Scott MR#: [id number] : 1975 Acct:[id number] Age/Sex: 47 / F Adm Date: 3 Loc: Room: [address] [place] [address] Type : ADM IN Attending Dr: Serafin [...] signed by Miah Abreu MD> 04/28/23 1201 [facility] Work Phone: [phone]) [phone] Hospital Discharge instructions Additional Instructions FOLLOW UP WITH DR. ALCAZAR AT HIS OFFICE IN ONE WEEK. (ORD.04/28/2023) IF DISCHARGED FROM PRIOR TO THE ONE WEEK FOLLOW UP. [address] [place] [address] PH: [phone] Dressing Type: Treatment TO LEFT WRIST; WARM SOAPY SOAKS WITH HIBICLENS TID FOR 15 MINUTES. ALLOW TO AIR DRY AND THEN REDRESS WITH XERFORM, TELFA, AND GAUZE. THREE TIMES A DAY.[facility] Work Phone: [phone]) 544-171607-27-2023 Consult note Author Efrain Alcazar [facility] April 28, 2023 2:11am Note Date/Time April 28, 2023 1:17 am [facility] [address] [place] [address] Orthopedic Consult Note Signed Patient: Loyda Scott MR#: [id number] : 1975 Acct:[id number] Age/Sex: 47 / F Adm Date: 3 Loc: Room: [address] [place] [address] Type: ADM IN Attending Dr: Serafin Rollins MD Copies to: NON STAFF MD Efrain Ibanez MD~ History of Present Illness HPI Consult date: 04/28/2023 Requesting provider: Serafin Rollins MD History of present illness: Patient is a 47-year-old tuqfz-ytsy-onymnbdx female who is disabled from mental health issues presented to the [place] emergency department on April 13 because she had used a elaine knife to slit her left wrist. At that time she reported suicidal ideations. The wound at that time according to the patient was washed out and sutured. She was admitted to [facility] psychiatric unit at that time and discharged on April 17. Not long after discharge she presented to the [facility] emergency department because she was concerned about infection. She was given oral antibiotics and discharge. On April 23 she was readmitted to [facility] psychiatric unit and at that time there [...] grown MRSA that is sensitive to doxycycline. PMFSH Vaccinated for COVID-19?: Unknown Medical History [...] % (Auto) 54.1, Lymph % (Auto) 33.3, [place] % (Auto) 8.2, Eos % (Auto) 3.2, Baso % (Auto) 1.2, Nucleat RBC Rel Count 0.2, Neut # (Auto) 2.1, Lymph # (Auto) 1.3, [place] # (Auto) 0.3, Eos # (Auto) 0.1, [...] By: <Electronically signed by Efrain Alcazar MD> 04/28/[address] [facility] Work Phone: 1([phone]) [phone] Progress note Author Miah Abreu [facility] April 27, 2023 12:45pm Note Date/Time April 27, 2023 12:4 5pm [facility] [address] [place], [place] [id number] Psychiatry Progress Note Signed Patient: Loyda Scott MR#: [id number] : 1975 Acct:[id number] Age/Sex: 47 / F Adm Date: 3 Loc: Room: [address] [place] [address] Type : ADM IN Attending Dr: Serafin [...] <Electronically signed by Miah Abreu MD> 04/27/23 1664 [facility] Work Phone: 1(903) 216-148307-25-2023 Progress note Author Miah Abreu [facility] April 26, 2023 12:24pm Note Date/Time April 26, 2023 12:2 4pm [facility] [address] [place] [address] Psychiatry Progress Note Signed Patient: Loyda Scott MR#: [id number] : 1975 Acct:[id number] Age/Sex: 47 / F Adm Date: 3 Loc: Room: [address] [place] [address] Type : ADM IN Attending Dr: Serafin [...] <Electronically signed by Miah Abreu MD> 04/26/[address] [place] [address] Work Phone: 1(972) 952-216507-24-2023 Progress note Author Miah Abreu [facility] April 25, 2023 1:05pm Note Date/Time April 25, 2023 1:04 pm [facility] [address] [place] [address] Psychiatry Progress Note Signed Patient: Loyda Scott MR#: [id number] : 1975 Acct:[id number] Age/Sex: 47 / F Adm Date: 3 Loc: Room: [address] [place] [address] Type : ADM IN Attending Dr: Serafin [...] alternatives explained Documented By: Miah Abreu MD 04/25/231302 Signed By: <Electronically signed by Miah Abreu MD> 04/25/23 8829 [facility] Work Phone: 1(906) 294-938407-24-2023 Progress note Author Jesus Callahan [facility] April 25, 2023 10:07am Note Date/Time April 25, 2023 10:0 7am [facility] [address] [place] [address] Hospitalist Progress Note Signed Patient: Loyda Scott MR#: [id number] : 1975 Acct:[id number] Age/Sex: 47 / F Adm Date: 3 Loc: Room: [address] [place] [address] Type: ADM IN Attending Dr: Sreafin Rollins MD Copies to: ~ Date of Service: 04/25/2023 Subjective Subjective Narrative: I personally saw and examined patient at the bedside on the psychiatry unit [facility]. She complains of some ongoing pain [...] sutures in place. Neurovascularly intact. Mildly decreased cardiac cath technician strength due to pain. No extension of [...] self-inflicted cutting wound -previously sutured 04/13 at [place]. Wound care has been consulted. Appreciate any further recommendations. Recommend circumscribing the margins ofher erythema which at this time does not seem to be extending proximally. She is afebrile. She does report some ongoing pain for which I will add low-dose [place] as the patient has tramadol allergy (lowers [...] <Electronically signed by Jesus Callahan DO> 04/25/[address] [place] [address] Ctr Work Phone: [phone]) 318-522507-23-2023 Consult note Author Abisai Madrid [facility] April 24, 2023 9:53am Note Date/Time April 23, 2023 5:14 pm [facility] [address] [place] [address] Hospitalist Consult Note Signed Patient: Loyda Scott MR#: [id number] : 1975 Acct:[id number] Age/Sex: 47 / F Adm Date: 3 Loc: Room: [id number] Type: ADM IN Attending Dr: Serafin Rollins MD Copies to: NON STAFF MD Abisai Ibanez MD Lynn A Stackhouse, ANP-BC~ HPI DATE OF CONSULTATION: 04/23/23 REQUESTING PROVIDER: Serafin Rollins Consult Narrative Reason for Consult: Wound present on admission HPI: This is a 47-year-old female past medical HTN, HLD, hypothyroid, hypertension, hyperlipidemia, hepatitis, rheumatoid arthritis, anxiety and depression. She presented April 22 from [facility] to the inpatient psychiatric unit for management of depression. Patient previously April 13 had self-inflicted a left wrist laceration that was sutured at that time in [facility] ED previously. She noticed about 4 days ago that she was having increased pain erythema and drainage from the site. When she was at [facility] last evening for reevaluation he did give her injection of ceftriaxone IM and initiated her on Bactrim and Keflex. Patient has a stated allergy to Bactrim with vomiting, and since receiving the dose in the [facility] ER she has not felt well and [...] self-inflicted cutting wound -previously sutured 04/13 at [facility], pain and erythema/ drainage started about 4 [...] signed by Abisai Madrid MD> 04/24/23 0953 [facility] Work Phone: 1([phone]) 916-854707-23-2023 Progress note Author Olvin tavares [facility] April 24, 2023 7:14am Note Date/Time April 24, 2023 7:14 am [facility] [address] [place] [address] Psychiatry Progress Note Signed Patient: Loyda Scott MR#: [id number] : 1975 Acct:[id number] Age/Sex: 47 / F Adm Date: 3 Loc: Room: [address] [place] [address] Type : ADM IN Attending Dr: Serafin Rollins MD Copies to: ~ Date of Service: 04/24/2023 Subjective Subjective Narrative: Ms. Scott said she met the hospitalist [employer]ING REPRESENTATIVE and talked the treatment plan for herwound [...] signed by Olvin Rollins MD> 04/24/23 0714 [facility] Work Phone: 1(772) 235-424607-22-2023 History and physical note Author Olvin tavares [facility] April 23, 2023 9:51am Note Date/Time April 23, 2023 8:56 am [facility] [address] [place] [address] Psychiatry H&P Signed Patient: Loyda Scott MR#: [id number] : 1975 Acct:[id number] Age/Sex: 47 / F Adm Date: 3 Loc: Room: 1J2085-8 Type: ADM IN Attending Dr: Serafin Rollins [...] Ms. Scott adds that she went to [facility] last night to have her wrist lookedat [...] Vomiting trimethoprim [From Bactrim] Adverse Reaction (Verified 01/31/22 19:25) Vomiting Home Medications atorvastatin 40 mg [...] <Electronically signed by Olvin Rollins MD> 04/23/23 0906 [facility] Work Phone: 1([phone]) 850-396211-30-2022 Discharge summary Author Olvin tavares [facility] September 01, 2022 10:03am Note Date/Time September 01, 2022 10:03am [facility] [address] [place] [address] Discharge Summary Signed Patient: Loyda Scott MR#: [id number] : 1975 Acct:[id number] Age/Sex: 47 / F Adm Date: 2 Loc: 1S Room: [address] [place] [address]: Miah Abreu MD Copies to: MD Miah Ibanez MD NO FAMILY PHYSICIAN~ Providers Date of Discharge: 09/01/22 Discharging Provider: Serafin Rollins Primary Care Provider: PHYSICIAN NO FAMILY Discharge Diagnosis (1) Stimulant use disorder: (2) Unspecified psychosis: (3) Generalized anxiety disorder: Final Diagnosis Final Discharge Diagnosis: QING Unspecified psychosis Summary Hospital Course Hospital course: Ms. Scott is a 47 year old female with a reported history of bipolar disorder, anxiety and stimulant use disorder who presented due to concern for depression and suicidal ideation with plan to OD. At the time of the interview, patient? presents as withdrawn.? She [facility] and has not been taking her medications.??She states that she was partying at someones [place] and left in [place].? She was found laying on the sidewalk in the rain by EMS and transported to [facility].? Patient admits to attempting suicide x2 at [...] Pending Studies Labs on day of discharge: 08/31/22 12:20: Urine Color Yellow, Urine Appearance Clear, Urine pH 6.5, Ur Specific Sterling 1.006, Urine Protein Negative, Urine Glucose (UA) [...] 30 Days Qty: 30 0RF Follow Up: [facility] [Other] - 09/07/22 10:00 am ( Pschiatry: Tuesday09/07/22 @ 10:00am with AUDI Zarate Referral for therapy & IOP treatment will be made at this time Psychiatry: 09/30/22 @ 12:[address] Stubbs. ) Documented By: Olvin Rollins MD 2 1000 Signed By: <Electronically signed by Olvin Rollins MD> 09/01/22 1003 [facility] Work Phone: 1(373) 364-629311-29-2022 Progress note Author Olvin tavares [facility] August 31, 2022 9:32am Note Date/Time August 31, 2022 9:32am [facility] [address] [place] [address] Psychiatry Progress Note Signed Patient: Loyda Scott MR#: [id number] : 1975 Acct:[id number] Age/Sex: 47 / F Adm Date: 2 Loc: Room: [address] [place] [address] Type : ADM IN Attending Dr: Miah [...] signed by Olvin Rollins MD> 08/31/[address] [facility] Work Phone: 1(182) 492-430011-28-2022 History and physical note Author Olvin tavares [facility] August 30, 2022 10:00am Note Date/Time August 30, 2022 9:56am [facility] [address] [place] [address] Psychiatry H&P Signed Patient: Loyda Scott MR#: [id number] : 1975 Acct:[id number] Age/Sex: 47 / F Adm Date: 2 Loc: Room: [address] [place] [address] Type: ADM IN Attending Dr: Miah Abreu [...] withdrawn. She reports beingrecently discharged from [facility] and has not been taking her medications.??She states that she was partying at some[place] and [place].? She was found laying on the sidewalk in the rain by EMS and transported to [facility].? Patient admits to attempting suicide x2 at [...] signed by Olvin Rollins MD> 08/30/[address] [facility] Work Phone: 1(797) 781-183409-10-2022 Progress note Author Miah Abreu [facility] June 12, 2022 11:20am Note Date/Time June 12, 2022 11:20am [facility] [address] [place] [address] Psychiatry Progress Note Signed Patient: Loyda Scott MR#: [id number] : 1975 Acct:[id number] Age/Sex: 47 / F Adm Date: 2 Loc: Room: [address] [place] [address] Type : ADM IN Attending Dr: Serafin [...] persistent urine drug screens positive for cocaine [id number] Continue home medications. Continue to monitor mental status Encourage group participation and medication compliance Risk benefits alternatives explained Documented By: Miah Abreu MD 06/12/221118 Signed By: <Electronically signed by Miah Abreu MD> 06/12/22 [facility]0 [facility] Work Phone: 1(272) 505-559109-09-2022 Progress note Author Miah Abreu [facility] June 11, 2022 1:36pm Note Date/Time June 11, 2022 1:33pm [facility] [address] [place] [address] Psychiatry Progress Note Signed Patient: Loyda Scott MR#: [id number] : 1975 Acct:[id number] Age/Sex: 47 / F Adm Date: 2 Loc: Room: [address] [place] [address] Type : ADM IN Attending Dr: Serafin [...] persistent urine drug screens positive for cocaine [id number] Continue home medications. Continue to monitor mental status Encourage group participation and medication compliance Risk benefits alternatives explained Documented By: Miah Abreu MD 06/11/22 1215 Signed By: <Electronically signed by Miah Abreu MD> 06/11/22 133 [facility] Work Phone: 1(564) 320-280209-08-2022 Progress note Author Miah Abreu [facility] June 10, 2022 1:53pm Note Date/Time June 10, 2022 1:53pm [facility] [address] [place] [address] Psychiatry Progress Note Signed Patient: Loyda Scott MR#: [id number] : 1975 Acct:[id number] Age/Sex: 47 / F Adm Date: 2 Loc: Room: [address] [place] [address] Type : ADM IN Attending Dr: Serafin [...] as notedbelow. Patient reported that she is doing okay. [...] persistent urine drug screens positive for cocaine [id number] Continue home medications. Continue to monitor mental status Encourage group participation and medication compliance Risk benefits alternatives explained Documented By: Miah Abreu MD 06/10/22 1111 Signed By: <Electronically signed by Miah Abreu MD> 06/10/[address] [place] [address] Ctr Work Phone: 1(532) 212-587309-07-2022 Progress note Author Miah Abreu [facility] June 09, 2022 12:58pm Note Date/Time June 09, 2022 12:58pm [facility] [address] [place] [address] Psychiatry Progress Note Signed Patient: Loyda Scott MR#: [id number] : 1975 Acct:[id number] Age/Sex: 47 / F Adm Date: 2 Loc: Room: [address] [place] [address] Type : ADM IN Attending Dr: Serafin [...] persistent urine drug screens positive for cocaine [id number] Continue home medications. Continue to monitor mental status Encourage group participation and medication compliance Risk benefits alternatives explained Documented By: Miah Abreu MD 06/09/22 1103 Signed By: <Electronically signed by Miah Abreu MD> 06/09/22 0938 [facility] Work Phone: 1(756) 465-705809-06-2022 Progress note Author Miah Abreu [facility] June 08, 2022 12:01pm Note Date/Time June 08, 2022 11:59am [facility] [address] [place] [address] Psychiatry Progress Note Signed Patient: Loyda Scott MR#: [id number] : 1975 Acct:[id number] Age/Sex: 47 / F Adm Date: 2 Loc: Room: [address] [place] [address] Type : ADM IN Attending Dr: Serafin [...] persistent urine drug screens positive for cocaine [id number] Continue home medications. Continue to monitor mental status Encourage group participation and medication compliance Risk benefits alternatives explained Documented By: Miah Abreu MD 06/08/22 6540 Signed By: <Electronically signed by Miah Abreu MD> 06/08/22 1201 [facility] Work Phone: 1(509) 450-835509-05-2022 History and physical note Author Miah Abreu [facility] June 07, 2022 12:39pm Note Date/Time June 07, 2022 12:38pm [facility] [address] [place] [address] Psychiatry H&P Signed Patient: Loyda Scott MR#: [id number] : 1975 Acct:[id number] Age/Sex: 47 / F Adm Date: 2 Loc: Room: [address] [place] [address] Type: ADM IN Attending Dr: Serafin Rollins MD Copies to: NON STAFF MD Miah Ibanez MD~ Date of Service: 06/07/2022 HPI History of Present Illness History of present illness: Ms. Soctt is a 47 year old female with past medical history of anxiety, substance use disorder and bipolar disorder with severe depression, who presentsfor concern of suicidal ideation. She reports that yesterday, she had suicidal thoughts and planned to overdose on her medications and so she called the hotline and was taken to [facility] after which she was transferred to . For the last few months, she has been feeling increasingly depressed and anxious. She reports a recent incident while babysitting her granddaughter in [place] during which she hid under the table and felt as though the world was ending . She endorses multiple similar episodes of panic recently during which she feels her heart racing, sweaty, and impending doom. She is following with a psychiatrist in [place] who recommended she start on a new [...] with the medical student as notedbelow. Patient presenting due to concern for depression [...] persistent urine drug screens positive for cocaine [id number] Continue home medications. Continue to monitor mental status Encourage group participation and medication compliance Risk benefits alternatives explained Documented By: Miah Abreu MD 06/07/22 1002 Signed By: <Electronically signed by Miah Abreu MD> 06/07/22 1239 [facility] Work Phone: Discharge summary Author Miah Abreu [facility] June 12, 2022 12:38pm Note Date/Time June 12, 2022 12:33pm [facility] [address] [place] [address] Discharge Summary Signed Patient: Loyda Scott MR#: [id number] : 1975 Acct:[id number] Age/Sex: 47 / F Adm Date: 2 Loc: Room: [address] [place] [address]: Serafin Rollins MD Copies to: [...] called the hotline and was taken to [facility] after which she was transferred to . For the last few months, she has been feeling increasingly depressed and anxious. She reports a recent incident while babysitting her granddaughter in [place] during which she hid under the table and felt as though the world was ending . She endorses multiple similar episodes of panic recently during which she feels her heart racing, sweaty, and impending doom. She is following with a psychiatrist in [place] who recommended she start on a new [...] tablet 225 mg PO QHS Follow Up: [facility] [Other] (Dr. Stubbs) [facility] [Other] (Therapist: Liu) Documented By: Miah Abreu MD 06/12/22 1231 Signed By: <Electronically signed by Miah Abreu MD> 06/12/[address] [facility] Work Phone: Evaluation note* Diagnosis Onset Date Resolution Status Generalized anxiety disorder acute Major depress dis, severe ac [place] Stimulant use disorder acute Acute anxiety acute Major depress dis, severe ac [place] Stimulant use disorder acute Suicidal ideation acute [facility] Work Phone: Evaluation note* Diagnosis Onset Date Resolution Status Acute anxiety acute Major depress dis, severe ac [place] Stimulant use disorder acute Suicidal ideation acute Bipolar disorder acute Generalized anxiety disorder acute Stimulant use disorder acute Unspecified psychosis acute [facility] Work Phone: Evaluation note* Diagnosis Onset Date Resolution Status Major depress dis, severe ac [place] Stimulant use disorder acute Acute anxiety acute Bipolar disorder, current episode depressed, mild acute Generalized anxiety disorder acute Hyperlipidemia acute Hypertension acute Open wound of left wrist acu te Self-inflicted laceration of left wrist acute Stimulant use disorder acute [facility] Work Phone: Evaluation note* Diagnosis Onset Date Resolution Status Acute anxiety acute Bipolar 2 disorder, major depressive episode acute Cocaine abuse acute Elevated LFTs acute Hyperlipidemia acute Hypertension acute Hypothyroid acute Major depress dis, severe ac [place] Marijuana use acute Nausea acute Stimulant use disorder acute UTI (urinary tract infection), bacterial acute Rheumatoid arthritis chronic [facility] Work Phone: Evaluation note* Diagnosis Onset Date Resolution Status Acute anxiety acute Bipolar 2 disorder, major depressive episode acute Cocaine abuse acute Elevated LFTs acute Hyperlipidemia acute Hypertension acute Hypothyroid acute Major depress dis, severe ac [place] Marijuana use acute Nausea acute Stimulant use disorder acute UTI (urinary tract infection), bacterial acute Rheumatoid arthritis chronic Major depress dis, severe ac [place] Stimulant use disorder acute [facility] Work Phone: Evaluation note* Diagnosis PTSD (post-traumatic stress disorder) (CMS/HCC) Posttraumatic stress disorder Opioid dependence in remission (CMS/HCC) Opioid type dependence, in remission Methamphetamine dependence in remission (CMS/HCC) Alcohol dependence in remission (CMS/HCC) Attention deficit hyperactivity disorder (ADHD), combined type (CMS/HCC) [facility] Diagnosis PTSD (post-traumatic stress disorder) (CMS/HCC) Posttraumatic stress disorder Alcohol dependence in remission (CMS/HCC) Opioid dependence in remission (CMS/HCC) Opioid type dependence, in remission Attention deficit hyperactivity disorder (ADHD), combined type (CMS/HCC) Methamphetamine dependence in remission (CMS/HCC) [facility] Diagnosis PTSD (post-traumatic stress disorder) (CMS/HCC) Posttraumatic stress disorder Attention deficit hyperactivity disorder (ADHD), combined type (CMS/HCC) Alcohol dependence in remission (CMS/HCC) Methamphetamine dependence in remission (CMS/HCC) Opioid dependence in remission (CMS/HCC) Opioid type dependence, in remission [facility] Diagnosis Primary hypertension- Primary Unspecified essential hypertension Other specified hypothyroidism Fibromyalgia Unspecified myalgia and myositis Anxiety Anxiety state, unspecified Encounter for lipid screening for cardiovascular disease Class 2 severe obesity with serious comorbidity and body mass index (BMI) of 38.0 to 38.9 in adult, unspecified obesity type Encounter to establish care documented in this encounter [facility]* Diagnosis Onset Date Resolution Status Bipolar 2 disorder, major depressive episode acute Cocaine abuse acute Generalized anxiety disorder acute [facility] Work Phone: History general Narrative - Reported* Type Description Date Medical History Bipolar II Medical History RA - refused treatment from An[facility] Medical History hepititous c Surgical History Cervical fusion on C5 and C6 Surgical History C section Surgical History Abdominal Exploratory Surgical History laparoscopy Surgical History ablasion 05/2017 Hospitalization History 14 days for anxiety and depression Hospitalization History see surgical Hx [employer] Other Hospital Discharge instructions Additional Instructions Regular diet. No activity restrictions.[facility] Work Phone: Instructions* Attachments The following attachments cannot be sent through Care Everywhere. * Low Salt Diet (Wallisian) documented in [facility] encounterAd[facility] CenterIntelligentM SystemInstructionsNot on file documented in this encounterSum[facility] Summary Purpose Family History No Family History [...] of open heart surgery Unknown grandchild Unknown Relationship Condition Age at Onset Recorded Date/T timoteo father Alcohol abuse Unknown Mental disorder Unknown Hypertension Unknown grandparent Alcohol abuse Unknown History of open heart surgery Unknown grandchild Unknown father Unknown Advance Directives No Advanced Directives Records FoundDocuments on File Type Date Recorded Patient Still Operator Brandy Expl anation Advance Directives and Livin g Will Advance Directives and Livin g Will 04/27/2013 12:00 AM Power of Control Systems Technician Latest Code Status on File Code Status Date Activated Date Inactivated Comments Full Code 07/02/2019 12:21 AM Full Code 09/09/2017 3:56 PM 09/14/2017 10:29 PM Full Code 09/09/2017 3:47 PM 09/09/2017 3:56 PM Full Code 10/07/2016 2:58 PM 10/15/2016 9:19 AM Full Code 10/06/2016 10:43 PM 10/07/2016 2:58 PM Documents on File Type Date Recorded Patient Still Operator Brandy Expl anation ACP-Advance Directive ACP-Power of Control Systems Technician ACP-Advance Directive 04/27/2013 12:00 AM Latest Code [...] Time Advance Directives No January 03 10:04pm Latest Code Status on File Code Status Date Activated Date Inactivated Comments Full Code 11/25/2022 6:03 PM 11/30/2022 2:53 PM Code Status History Code Status Date Activated Date Inactivated Comments Full Code 08/16/2022 8:16 PM 08/21/2022 6:31 PM Full Code 02/26/2017 11:10 PM 02/28/2017 6:32 PM Chief Complaint and Reason for Visit Chief [...] UTI (urinary tract infection), bacterial Rheumatoid arthritis Chief Complaint MDD MDD Reason for Visit Acute anxiety Bipolar 2 disorder, major depressive episode Cocaine abuse Elevated LFTs Hyperlipidemia Hypertension Hypothyroid Major depress dis, severe Marijuana use Nausea Stimulant use disorder UTI (urinary tract infection), bacterial Rheumatoid arthritis Major depress dis, severe Stimulant use disorder Chief Complaint MDD MDD Reason for Visit Bipolar 2 disorder, major depressive episode Cocaine abuse Generalized anxiety disorder Additional Source Comments INFORMATION SOURCE (unrecogn ized section and content) DATE CREATED AUTHOR 03/29/2018 [facility] DATE CREATED AUTHOR AUTHOR'S ORGANIZ ATION 07/05/2019 [facility] DATE CREATED AUTHOR AUTHOR'S ORGANIZ ATION 04/09/2022 [facility] DATE CREATED AUTHOR AUTHOR'S ORGANIZ ATION 10/01/2022 [facility] DATE CREATED AUTHOR AUTHOR'S ORGANIZ ATION 12/03/2023 [facility] DATE CREATED AUTHOR AUTHOR'S ORGANIZ ATION 12/04/2023 [facility] DATE CREATED AUTHOR AUTHOR'S ORGANIZ ATION 01/21/2024 [facility] DATE CREATED AUTHOR AUTHOR'S ORGANIZ ATION 04/18/2024 [facility] DATE CREATED AUTHOR AUTHOR'S ORGANIZ ATION 04/19/2024 [facility] DATE CREATED AUTHOR AUTHOR'S ORGANIZ ATION 04/25/2024 [facility] (unrecognized sec tion and content) Life Advisor Relationship Specialty Start Date End Date Imm, [...] MD Admit Provider, Attending Pr ovider Active Michelle Ko , RN Other Provider Active Jennifer Bonner , RN Other Provider Active Meme Delacruz , RN Other Provider Active Carmella Lazo , RN Other Provider Active Arianna Centeno , RN Other Provider Active Vaishali Rivera , RN Other Provider Active Alessandra Luna APRN Other Provider Active Valentina Nice DO Other Provider Active Rush Ramsey MD Other Provider Active Santi Rudd , Other Provider Active Zeus Bright MD Other Provider Active Ya Simms MD Other Provider Active Adele Gorman , ANP-BC Other Provider Active Yessy Bustillos MD Other Provider Active Irwin Rivero MD Other Provider Active Jose Loaiza MD Other Provider Active Demario Spicer MD Other Provider Active Jesus Callahan DO Other Provider Active Becca Bustos MD Other Provider Active Kamron Solis MD Other Provider Active Gris Breaux , CASH POSTING REPRESENTATIVE-C Other Provider Active Abisai Madrid MD Other Provider Active Wolf Irwin MD Other Provider Active Hammad Zayas MD Other Provider Active Georgi Rodríguez MD Other Provider Active Debbie Timo , DO Other Provider Active Jordan R Julia , DO Other Provider Active Jim Wells , DO Other Provider Active Janie Douglas , AIRPLANE REFUELER Other Provider Active Eddie Jensen , DO Other Provider Active Emanuel Esposito MD Other Provider Active Jael Chan , AIRPLANE REFUELER Other Provider Active Fabi Delgado , AIRPLANE REFUELER Other Provider Active Danny Mancia MD Other [...] MD Admit Provider, Attending P kassandra Active Michelle Ko , GROVER Other Provider Active Jennifer Bonner , GROVER Other Provider Active Meme Delacruz , GROVER Other Provider Active Carmella Lazo , GROVER Other Provider Active Arianna Centeno , GROVER Other Provider Active Vaishali Rivera , GROVER Other Provider Active Alon Chand MD Other Provider Active Alessandra Luna , AIRPLANE REFUELER Other Provider Active Valentina Nice , DO Other Provider Active Rush Ramsey MD Other Provider Active Santi Rudd , DO Other Provider Active Zeus Bright MD Other Provider Active Ya Simms MD Other Provider Active Adele Hunter , AIRPLANE REFUELER Other Provider Active Yessy Bustillos MD Other Provider Active Irwin Rivero MD Other Provider Active Jose Loaiza MD Other Provider Active Demario Spicer MD Other Provider Active Jesus Callahan , DO Other Provider Active Becca Bustos MD Other Provider Active Kamron Solis MD Other Provider Active Gris Breaux , CASH POSTING REPRESENTATIVE-C Other Provider Active Abisai Madrid MD Other Provider Active Wolf Irwin MD Other Provider Active Hammad Zayas MD Other Provider Active Georgi Rodríguez MD Other Provider Active Debbie Greenwood , DO Other Provider Active Jordan R Julia , DO Other Provider Active Jim Wells , DO Other Provider Active Janie Douglas , AIRPLANE REFUELER Other Provider Active Eddie Jensen , DO Other Provider Active Emanuel Esposito MD Other Provider Active Jael Chan , AIRPLANE REFUELER Other Provider Active Fabi Delgado , AIRPLANE REFUELER Other Provider Active Danny Mancia MD Other Provider Active Sánchez Noble MD Other Provider Active Lexx Fox , DO Other Provider Active Sofia Malagon , AIRPLANE REFUELER Other Provider Active Maycol Lee , DO Other Provider Active Charito Galvan RN Other Provider Active Life Advisor Relationship Specialty Start Date End Date Lili Woo MD [address] [place] [address] PCP - General Family Medicine 07/14/23 Life Advisor Relationship Specialty Start Date End Date Lili Woo MD [address] [place] [address] PCP - General Family Medicine 07/14/23 Life Advisor Relationship Specialty Start Date End Date Lili Woo MD [address] [place] [address] PCP - General Family Medicine 07/14/23 Life Advisor Relationship Specialty Start Date End Date 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 APRN-AUDI [address] [place] [phone] PCP - General Nurse Practitioner 12/01/23 Life Advisor Relationship Specialty Start Date End Date 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 APRN-CNP [address] [place] [phone] PCP - General Nurse Practitioner 12/01/23 Team Status: Active Member Role Status Dates 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 , CASH POSTING REPRESENTATIVE-C Primary Care Provider Active Team Status: Inactive Member Role Status Dates NINA Zabala Primary Care Provider Active Start: January 18, 2024 End: January 20, 2024 Olvin Rollins MD Admit Provide r, Attending Provider Active Start: January 18, 2024 End: January 20, 2024 Team Status: Active Member Role Status Dates NINA Zabala Primary Care Provider Active Start: January 18, 2024 Olvin Rollins MD Admit Provide r, Attending Provider, Other Provider Active Start: January 18, 2024 REASON FOR VISIT (unrecogniz ed section and content) Reason Comments Counseling session FOR RECORDS PERTAINING TO PATIENTS WHO ARE [...] BE BASED ON THE PRIMARY CLINICAL RECORDS. [facility] [employer] [facility]. provides no warranty or guarantee of the accuracy or completeness of information in this document.
[2024-06-20] MEDS: 0.9 % SODIUM CHLORIDE 1,000 ML 1000 ML IV (09:25)
[2024-06-20] MEDS: LORAZEPAM 2 MG/ML VIAL 0.5 MG IV (09:25)
[2024-06-20] MEDS: ONDANSETRON PF 4 MG/2 ML VIAL IV (09:25)
[2024-06-20] MEDS: KETOROLAC TROMETHAMINE 30 MG/ML VIAL 15 MG IVP (09:25)
[2024-06-20 09:27] LABS: Internal Control Within Normal Limits; SARS-CoV-2 Ag NEGATIVE (NEGATIVE)
[2024-06-20 09:49] LABS: Alanine Aminotransferase 74 U/L (14-59); Albumin Globulin Ratio 1.2; Albumin Level 4.2 g/dL (3.4-5.0); Alkaline Phosphatase 54 U/L (46-116); Anion Gap 13.7; Aspartate Amino Transferase 72 U/L (15-37); BUN Creatinine Ratio 4.8; Bilirubin Total 0.6 mg/dL (0.2-1.0); Calcium 9.1 mg/dL (8.5-10.1); Carbon Dioxide 24.3 mmol/L (21.0-32.0); Chloride 105 mmol/L (98-107); Estimated GFR (African America >60 (>=60); Estimated GFR (Non-African Ame >60 (>=60); Globulin 3.5 g/dL; Glucose 115 mg/dL (74-106); Sodium 139 mmol/L (136-145); Total Protein 7.7 g/dL (6.4-8.2)
[2024-06-20 09:54] LABS: Troponin I High Sensitivity 4.3 pg/mL (4.0-51.3)
[2024-06-20] MEDS: PROMETHAZINE HCL 25 MG in 0.9 % SODIUM CHLORIDE 50 ML 204 MG IV (10:17)
[2024-06-20 10:27] LABS: Bilirubin Urine NEGATIVE (NEGATIVE); Blood Urine NEGATIVE (NEGATIVE); Clarity Urine CLEAR (CLEAR); Color Urine LT. YELLOW (YELLOW); Glucose Urine UA NEGATIVE (NEGATIVE); Ketones Urine NEGATIVE (NEGATIVE); Leukocyte Esterase Urine NEGATIVE (NEGATIVE); Nitrite Urine NEGATIVE (NEGATIVE); Protein Urine NEGATIVE (NEG/TRACE); Specific Gravity Urine <=1.005 (1.005-1.025); Urobilinogen Urine 0.2 EU/dL (0.2-1.0)
[2024-06-20 10:28] LABS: Urine Microscopic Indicated NO
[2024-06-20 10:50] LABS: Internal Control Within Normal Limits; Strep A Antigen Screen Negative
== END 2024-06-20 11:46 | disposition home or self-care (01) ==
PROVIDERS: Emergency Provider Emergency Medicine
DX: F41.9 Anxiety disorder, unspecified (principal); R19.7 Diarrhea, unspecified; F17.200 Nicotine dependence, unspecified, uncomplicated; Z20.822 Contact with and (suspected) exposure to COVID-19
CPT/HCPCS: 36415; 71045; 80053; 81003; 84443; 84484; 85025; 87070; 87811; 87880; 93005; 96361; 96365; 96375; 99285; J1885; J2060; J2250; J2405

== ENCOUNTER 2024-07-14 17:40 | Emergency (ER) | payer MEDICAID, SELFPAY ==
[2024-07-14] VITALS (10 sets, daily range): BP systolic 132–140; BP diastolic 78–95; PULSE 81–100; TEMP 37.3; O2SAT 94–99; BMI 35.5
--- OUTSIDE RECORDS SUMMARY | 2024-07-14 17:54 | XMS_ITS | CCD ---
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 Name Role Phone VITALIY BENJI A Unavailable Unavailable CATA BURKSICA A Unavailable Unavailable KELLI GUSMAN Unavailable Unavailable KELLI GUSMAN Unavailable Unavailable INDURTI, PREM V Admitting Unavailable RICKURTI, PREM V Attending Unavailable JONI ESQUIVEL Referring Unavailable BRANDEN VAZQUEZ Primary Care Unavailable Branden Vazquez Primary Care Provider Imm Branden STORM Primary Care Provider [phone] JUAN LUIS WHITING Referring Unavailable BRANDEN VAZQUEZ Primary Care Unavailable NON STAFF Primary Care Provider UnavailMD Miah Elias Admit Provider [phone] MD Miah Abreu Attending Provider [phone] MD Serafin Rollins Admit Provider MD Serafin Rollins Attending Provider [phone] NON STAFF Primary Care Provider UnavailMD Serafin Zaldivar Admit Provider [phone] MD Serafin Rollins Attending Provider NO FAMILY, PHYSICIAN Primary Care Provider Unava ilable MD Miah Abreu Admit Provider [phone] MD Miah Abreu Attending Provider [phone] OTTO SIEGEL Attending Unavailable DR NOEMY NAGY [...] EDY Consulting Unavailable CONOR, EDY Admitting Unavailable [facility] Primary Care Unavailable KAYLA NYE Consulting Unavailable MD Miah Abreu Admit Provider [phone] MD Miah Abreu Attending Provider NON STAFF Primary Care Provider Unavailisac e MD Serafin Rollins Admit Provider MD Serafin Rollins Attending Provider GROVER Ko Other Provider Unavailable GROVER Bonner Other Provider Unavailable GROVER Delacruz Other Provider Unavailable GROVER Lazo Other Provider Unavailable GROVER Centeno Other Provider Unavailable Nicole RN Vaishali Other Provider Unavailable 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, 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 MACHINE SETTER Alessandra Simmons Other Provider DO Valentina Nice Other Provider MD Rush Ramsey Other Provider DO Santi Rudd Other Provider MD Zeus Bright Other Provider [phone] MD Ya Simms Other Provider Sherif, ANP-BC Adele Other Provider MD Yessy [...] Esposito Other Provider TANNER Chan Other Provider [phone] TANNER Delgado Other Provider MD Danny Mancia Other Provider MD Sánchez Noble Other Provider GROVER Galvan Other Provider Unavailable MD Guilherme Carbone Other Provider MD Jesus Molina Other Provider MD Charity Manzo Other Provider DO Monroe Zepeda Other Provider MD Efrain Alcazar II Other Provider DO Gwyn Wyatt Other Provider Efrain Alcazar II Unavailable NON STAFF Primary Care Provider UnavailMD Olvin Zaldivar Admit Provider MD Olvin Rollins Attending Provider [phone] GROVER Ko Other Provider Unavailable GROVER Bonner [...] Simms Other Provider TANNER Hunter Other Provider [phone] MD Yessy Bustillos Other Provider [phone] MD Irwin Rivero Other Provider MD Jose Loaiza Other Provider MD Demario Spicer Other Provider DO Jesus Callahan Other Provider MD Becca Bustos Other Provider MD Kamron Solis Other Provider Saeid [employer] Gris Casillas Other Provider [phone] MD Abisai Madrid Other Provider MD Wolf Irwin Other Provider MD Hammad Zayas Other Provider MD Georgi Rodríguez Other Provider DO Debbie Greenwood Other Provider DO Jordan Dumont Other Provider DO Jim Wells Other Provider [phone] TANNER Douglas Other Provider DO Eddie Jensen Other Provider [phone] MD Emanuel Esposito Other Provider [phone] TANNER Chan Other Provider TANNER Delgado Other Provider MD Danny Mancia Other Provider MD Sánchez Noble Other Provider DO Lexx Fox Other Provider TANNER Malagon Other Provider DO Maycol Lee Other Provider GROVER Galvan Other Provider Unavailable MD Miah Abreu Admit Provider MD Miah Abreu Attending Provider [phone] Amna STORM, Lili Primary Care Provider [phone] Bowser GRINDER MACHINE SETTER-JAVA FRONT END WEB DEVELOPER, Michelle Primary Care Provider BOWSER, MICHELLE Attending Unavailable ALI, LILI Referring Unavailable ALI, LILI Primary Care Unavailable ALI, LILI Referring Unavailable BOWSER, MICHELLE Primary Care Unavailable BOWSER, MICHELLE Referring Unavailable ALI, LILI Primary Care Unavailable BOWSER, MICHELLE Referring Unavailable BOWSER, MICHELLE Primary Care Unavailable Bowser, SUPERVISOR [employer] Michelle K Primary Care Provider MD Olvin [...] Referring Unavailable NON STAFF Primary Care Unavailable Miah Abreu Attending Unavailable Miah Abreu Admitting Unavailable Ayo, Olvin Admitting Unavailab le Ayo, Olvin Attending Unavailab le NON STAFF Primary Care Unavailable Michelle Ko Consulting Unavailable Jennifer Bonner Consulting Unavailable Meme Delacruz [...] Douglas Consulting Unavailable Eddie Jensen Consulting Unavailable DaromaEmanuel last Consulting Unavailable Jael Chan Consulting Unavailable Fabi Delgado Consulting Unavailable Alahmad Alaa Consulting Unavailable Sánchez Noble Consulting Unavailable Lexx Fox Consulting Unavailable Sofia Malagon Consulting Unavailable Maycol Lee Consulting Unavailable Charito Galvan Consulting Unavailable NON STAFF Primary Care Unavailable Olvin Rollins Attending Unavailab le AyoOlvin tavares Admitting Unavailab le BowserPatricia thomasMichelle K Primary Care Unavailable Olvin Rollins Attending Unavailab le Ayo, Olvin Admitting Unavailab le Allergies Allergy Classification Reported Allergen(s) Allergy Type Date of Onset Reaction(s) Facility (11 sources) diphenhydrAMINE Drug Allergy 07-02-20 19 Anxiety [place] (8 sources) hydrOXYzine Drug Allergy 01-05-20 18 Agitated [place] (2 sources) Ketorolac Drug Allergy 04-22-20 13 Shortness Of Breath [place] (14 sources) metroNIDAZOLE; Translations: [METRONIDAZOLE] Drug Allergy 04-23-20 13 Nausea And Vomiting, Dizziness [place] (2 sources) Morphine Drug Allergy 09-17-20 09 Other (See Comments) [place] (14 sources) Sulfamethoxazole / Trimethoprim; Translations: [SULFAMETHOXAZOLE-T RIMETHOPRIM] Drug Allergy 04-23-20 13 Nausea And Vomiting, Dizziness [place] (14 sources) traMADol; Translations: [TRAMADOL] Drug Allergy 04-22-20 13 Other (See Comments) [place] (8 sources) Trimethoprim Drug Allergy 01-05-20 18 Vomiting [place] (13 sources) busPIRone; Translations: [BUSPIRONE] Drug Allergy 11-02-19 22 Abnormal Behavior [facility] (13 sources) Nalbuphine; Translations: [NALBUPHINE] Drug Allergy 03-13-20 17 Unknown Reaction [facility] (7 sources) OLANZapine; Translations: [olanzapine] Drug Allergy 11-02-19 22 Unknown Reaction [facility] (7 sources) Sulfamethoxazole; Translations: [sulfamethoxazole] Drug Allergy 11-02-19 22 Vomiting [facility] (1 source) busPIRone Drug Allergy 03-19-[address] [facility] Rep[facility] (1 source) hydrOXYzine Drug Allergy [facility] (2 sources) metroNIDAZOLE Drug Allergy 09-28-[address] [facility] (2 sources) Nalbuphine Drug Allergy Unknown [facility] (3 sources) Sulfamethoxazole / Trimethoprim Drug Allergy 10-05-[address] [facility] (1 source) traMADol Drug Allergy 10-05-[address] [facility] (1 source) traMADol Drug Allergy Unknown [facility] Other (1 source) Flagil Propensity to adverse reactions Unknown [facility] Other (6 sources) hydrOXYzine; Translations: [HYDROXYZINE HCL] Drug Allergy 11-27-19 Abnormal Behavior [facility] (3 sources) diphenhydrAMINE; Translations: [DIPHENHYDRAMINE HCL] Drug Allergy 11-27-19 [facility] Rep[facility] (1 source) vortioxetine Drug Allergy [facility] (1 source) diphenhydrAMINE Drug Allergy 01-18-20 [facility] Repository (1 source) hydrOXYzine Drug Allergy 01-18-20 [facility] Repository (1 source) metroNIDAZOLE Drug Allergy 01-18-20 [facility] Repository (1 source) traMADol Drug Allergy 01-18-20 [facility] Repository (1 source) Trimethoprim Drug Allergy 01-18-20 [facility] Repository Medications Current Medications Medication Drug [...] release oral tablet (20 sources) Aminoketone Start: take 150 mg by mouth once daily [...] 150 MG PO Twice daily 14 March 23, 2022 12:00am June 12, 2022 12:52pm [...] D3) Discontinued 2000 UNIT PO Daily 60 30 November 30, 2019 1:00am February 05, 2020 [...] 29, 2022 5:48pm take 1 tablet by [facility] every twenty-four hours KlonoPIN 0.5 MG 1 [...] Discontinued 100 MG PO Twice daily 30 15 September 01, 2022 1:00am October 10, 2023 11:49am Start: 07-05-2019 take 1 capsule by mo [facility] once daily docusate (COLACE, DULCOLAX) 100 [...] MG PO Daily 22 04March 23, 2022 11:51am June 12, 2022 12:52pm Start: [...] 400 MG PO Three times daily February 08, 2020 12:00am July 20, 2021 [...] 09/14/2017 07/02/2019 Discontinued take 1 capsule by [facility] every twenty-four hours Gabapentin 100 MG [...] 2022 5:09pm take 1 tablet by john once daily in the morning Synthroid 50 [...] Discontinued 25 MG PO Daily at bedtime 30 April 17, 2023 12:00am May 01, 2023 12:14pm take 1 capsule by [facility] every twenty-four hours Nortriptyline HCl 10 [...] 8:49pm Start: 07-05-2019 take 1 capsule by mo ut once daily prazosin (MINIPRESS) 1 MG capsule Take 1 capsule by mouth daily 30 capsule 0 07/05/2019 Active Start: 07-05-2019 take 1 capsule by mo ut once daily prazosin (MINIPRESS) 2 MG capsule [...] 1:19am Start: 07-05-2019 take 2 tablets by mo ut once daily QUEtiapine (SEROQUEL XR) 50 MG [...] Discontinued 20 MG PO Daily with supper 30 October 11, 2023 1:00am January 18, 2024 [...] Translations: [Vitamin D deficiency, unspecified] 11-28-2019 Chronic Open wounds of extremities (11 sources) Self inflicted lacerations to wrist; Translations: [Laceration without foreign body of left wrist, initial encounter] 04-23-2023 Episodic Other aftercare (1 source) Other correction (current) drug therapy; Translations: [OTH 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 CURRENT DRUG THERAPY] Onset: 10-01-2022 Episodic Other [...] Translations: [Cocaine abuse] Onset: 06-08-2022 08-24-2023 Chronic Suicide and intentional self-inflicted injury (20 sources) Suicidal thoughts; Translations: [Suicidal ideations] Onset: 06-06-2022 Resolved: 11-29-2022 11-02-2021 Episodic Thyroid disorders (12 sources) Hypothyroidism; Translations: [Hypothyroidism, [...] Nausea; Translations: [Nausea] Onset: 08-23-2023 08-24-2023 Episodic Other circulatory disease (3 sources) Elevated [...] user; Translations: [Cannabis use, unspecified, uncomplicated] Onset: 05-04-2023 11-02-2021 Episodic Superficial injury; contusion (7 sources) [...] Range Facility CBC AND AUTO DIFFon 01-18-20 24 ABSOLUTE BASOPHIL 0.0 X10E9/L Normal 0.0-0.2 [facility] Comment on above: Performed By: #### C VERONICA MOHAN, 5643-2, THYR #### [facility] ([id number]) [address] [place] [address], [place] [address] ABSOLUTE NEUTROPHIL 4.0 X10E9/L Normal 1.5-6.6 [facility] Comment on above: Performed By: #### C KIMBERLEE CMP, 5643-2, THYR #### [facility] ([id number]) [address] [place] [address] 65514 Basophils/100 WBC (Bld) 0.5 % Normal [facility] Comment on above: Performed By: #### C VERONICA MOHAN, 5643-2, THYR #### [facility] ([id number]) [address] [place] [address] 48820 Eosinophils (Bld) [#/Vol] 0.1 10*3/uL Normal 0.0-0.4 [facility] Comment on above: Performed By: #### C VERONICA MOHAN, 5643-2, THYR #### [facility] ([id number]) [address] [place] [address] 31250 Eosinophils/100 WBC (Bld) 1.2 % Normal [facility] Comment on above: Performed By: #### Ulises MOHAN CMP, 5643-2, THYR #### [facility] ([id number]) [address] [place] [address] 63490 Erythrocyte distribution width (RBC) [Ratio] 13.4 % Normal 11.5-15.0 [facility] Comment on above: Performed By: #### C VERONICA MOHAN, 5643-2, THYR #### [facility] ([id number]) [address] [place] [address] 05174 Hematocrit (Bld) [Volume fraction] 37.6 % Normal 35-47 [facility] Comment on above: Performed By: #### C VERONICA MOHAN, 5643-2, THYR #### [facility] ([id number]) [address] [place] [address] 04583 Hemoglobin (Bld) [Mass/Vol] 13.2 g/dL Normal 11.7-15.5 [facility] Comment on above: Performed By: #### C VERONICA MOHAN, 5643-2, THYR #### [facility] ([id number]) [address] [place] [address] 11359 Lymphocytes (Bld) [#/Vol] 1.5 10*3/uL Normal 1.0-3.5 [facility] Comment on above: Performed By: #### C VERONICA MOHAN, 5643-2, THYR #### [facility] ([id number]) [address] [place] [address] 11321 Lymphocytes/100 WBC (Bld) 24.2 % Normal [facility] Comment on above: Performed By: #### Ulises MOHAN CMP, [facility]-2, THYR #### [facility] ([id number]) [address] [place] [address] 82259 MCH (RBC) [Entitic mass] 33.9 pg Normal 27-34 [facility] Comment on above: Performed By: #### Ulises MOHAN CMP, [facility]-2, THYR #### [facility] ([id number]) [address] [place] [address] 75833 MCHC (RBC) [Mass/Vol] 35.2 g/dL Normal 32-36 [place] Comment on above: Performed By: #### Ulises MOHAN CMP, 5643-2, THYR #### [facility] ([id number]) [address] [place] [address] 37495 MCV (RBC) [Entitic vol] 96 fL Normal 80-100 [facility] Comment on above: Performed By: #### Ulises MOHAN CMP, 5643-2, THYR #### [facility] ([id number]) [address] [place] [address] 40658 Monocytes (Bld) [#/Vol] 0.5 10*3/uL Normal 0-0.9 [facility] Comment on above: Performed By: #### Ulises MOHAN CMP, 5643-2, THYR #### [facility] ([id number]) [address] [place] [address] 77829 Monocytes/100 WBC (Bld) 8.4 % Normal [facility] Comment on above: Performed By: #### C KIMBERLEE CMP, 5643-2, THYR #### [facility] ([id number]) [address] [place] [address] 33308 Neutrophils/100 WBC (Bld) 65.7 % Normal [facility] Comment on above: Performed By: #### C KIMBERLEE CMP, 5643-2, THYR #### [facility] ([id number]) [address] [place] [address] 73763 Platelet mean volume (Bld) [Entitic vol] 9.0 fL Normal 7-12 [facility] Comment on above: Performed By: #### C VERONICA MOHAN, 5643-2, THYR #### [facility] ([id number]) [address] [place] [address] 77362 Platelets (Bld) [#/Vol] 216 10*3/uL Normal 150-450 [facility] Comment on above: Performed By: #### Ulises MOHAN CMP, 5643-2, THYR #### [facility] ([id number]) [address] [place] [address] 85703 RBC COUNT 3.90 X10E12/L Normal 3.80-5.20 [facility] Comment on above: Performed By: #### C KIMBERLEE, CMP, 5643-2, THYR #### [facility] ([id number]) [address] [place] [address] 53858 WBC (Bld) [#/Vol] 6.1 10*3/uL Normal 4.0-11.0 [facility] Comment on above: Performed By: #### C KIMBERLEE CMP, 5643-2, THYR #### [facility] ([id number]) [address] [place] [address] 09790 COMPREHENSIVE METABOLIC PANE Jose 01-18-2024 Albumin [Mass/Vol] 4.6 g/dL Normal 3.2-5.3 [facility] Comment on above: Performed By: #### C BCA, CMP, 5643-2, THYR #### [facility] ([id number]) [address] [place] [address] 39924 ALP [Catalytic activity/Vol] 53 U/L Normal 39-130 [facility] Comment on above: Performed By: #### C KIMBERLEE, CMP, 5643-2, THYR #### [facility] ([id number]) [address] [place] [address] 29383 ALT [Catalytic activity/Vol] 79 U/L High 0-31 [facility] Comment on above: Performed By: #### C KIMBERLEE, CMP, 5643-2, THYR #### [facility] ([id number]) [address] [place] [address] 25012 Anion gap [Moles/Vol] 8 mmol/L Normal 5-15 [place] Comment on above: Performed By: #### C KIMBERLEE, CMP, 5643-2, THYR #### [facility] ([id number]) [address] [place] [address] 72979 AST [Catalytic activity/Vol] 71 U/L High 0-41 [facility] Comment on above: Performed By: #### C BCA, CMP, 5643-2, THYR #### [facility] ([id number]) [address] [place] [address] 68993 Bilirubin [Mass/Vol] 1.1 mg/dL Normal 0.3-1.2 [facility] Comment on above: Performed By: #### C BCA, CMP, 5643-2, THYR #### [facility] ([id number]) [address] [place] [address] 00818 Calcium [Mass/Vol] 8.9 mg/dL Normal 8.5-10.5 [facility] Comment on above: Performed By: #### C VERONICA MOHAN, 5643-2, THYR #### [facility] ([id number]) [address] [place] [address] 16752 Chloride [Moles/Vol] 105 mmol/L Normal 98-109 [facility] Comment on above: Performed By: #### C VERONICA MOHAN, 5643-2, THYR #### [facility] ([id number]) [address] [place] [address] 93585 CO2 [Moles/Vol] 23 mmol/L Normal 22-32 [facility] Comment on above: Performed By: #### C VERONICA MOHAN, 5643-2, THYR #### [facility] ([id number]) [address] [place] [address] 41531 Creatinine [Mass/Vol] 0.81 mg/dL Normal 0.40-1.00 [place] Comment on above: Result Comment: METH OD TRACEABLE TO IDMS STANDARD Performed By: #### C VERONICA MOHAN, 5643-2, THYR #### [facility] ([id number]) [address] [place] [address] 58550 GFR/1.73 sq M.predicted among non-blacks MDRD (S/P/Bld) [Vol rate/Area] 88 mL/min/{1.73_m2} Normal >59 [facility] Comment on above: Result Comment: Reported eGFR is based on the CKD-EPI 2020 equation that does not use a race coefficient. Performed By: #### C VERONICA MOHAN, 5643-2, THYR #### [facility] ([id number]) [address] [place] [address] 15514 Glucose [Mass/Vol] 82 mg/dL Normal 65-99 [facility] Comment on above: Performed By: #### C BCA, CMP, 5643-2, THYR #### [facility] ([id number]) [address] [place] [address] 83239 Potassium [Moles/Vol] 3.7 mmol/L Normal 3.5-5.0 [place] Comment on above: Performed By: #### C BCA, CMP, 5643-2, THYR #### [facility] ([id number]) [address] [place] [address] 06469 Protein [Mass/Vol] 7.8 g/dL Normal 6.0-8.0 [facility] Comment on above: Performed By: #### C BCA, [facility], 5643-2, THYR #### [facility] ([id number]) [address] [place] [address] 55409 Sodium [Moles/Vol] 136 mmol/L Normal 134-146 [facility] Comment on above: Performed By: #### C BCA, [facility], 5643-2, THYR #### [facility] ([id number]) [address] [place] [address] 21148 Urea nitrogen [Mass/Vol] 13 mg/dL Normal 5-23 [facility] Comment on above: Performed By: #### C BCA, CMP, 5643-2, THYR #### [facility] ([id number]) [address] [place] [address] 27044 Cholesterol [Mass/volume] in Serum or PlasmaOrdered By: Olvin Rollins on 01-18-2024 Cholesterol [Mass/Vol] 165 mg/dL Normal 140-200 [facility] Comment on above: Chol less than 200 m g/dl low riskChol 201-239 mg/dl borderline riskChol 240 mg/dl and greater high risk Order Comment: ORIGI ONAL SPECIMEN HEMOLYZED. NOTIFIED GERARDO Result Comment: Chol less than 200 mg/dl low risk Chol 201-239 mg/dl borderline risk Chol 240 mg/dl and greater high risk Performed By: #### C HOL, [id number] #### [facility] [address] Cholesterol in LDL Calc [Mas s/Vol]Ordered By: Olvin Rollins on 01-18-2024 Cholesterol in LDL [Mass/Vol] 100 mg/dL 0-100 [facility] Comment on above: LDL ATP III CLASSIFI CATIONLDL less than 100 mg/dL OptimalLDL 100-129 mg/dL Near or above optimalLDL 130-159 mg/dL Borderline highLDL 160-189 mg/dL HighLDL greater than 189 mg/dL Very high Cholesterol in VLDL Calc [Ma ss/Vol]Ordered By: Olvin Rollins on 01-18-2024 Cholesterol in VLDL [Mass/Vol] 15 mg/dL [facility] DRUG SCREEN, URINEon 024 AMPHETAMINE/METHAMP Negative Normal NEG [facility] Comment on above: Result Comment: AMPH /METH screening cut off = 1000 ng/mL Performed By: #### D ESTRADA #### [facility] ([id number]) [address] [place] [address] 57588 BARBITURATES Negative Normal NEG [facility] Comment on above: Result Comment: Augustina iturates screening cut off value = 200 ng/mL Performed By: #### D ESTRADA #### [facility] ([id number]) [address] [place] [address] 77562 BENZODIAZEPINES Positive Abnormal NEG [facility] Comment on above: Result Comment: Conf irmation available upon request. Benzodiazepines screening cut off value = 200 ng/mL Performed By: #### D ESTRADA #### [facility] ([id number]) [address] [place] [address] 92741 CANNABINOIDS Positive Abnormal NEG [facility] Comment on above: Result Comment: Conf irmation available upon request. Cannabinoids/THC screening cut off value = 50 ng/mL Performed By: #### D ESTRADA #### [facility] ([id number]) [address] [place] [address] 73915 COCAINE METABOLITE Positive Abnormal NEG [facility] Comment on above: Result Comment: Conf irmation available upon request. Cocaine screening cut off value = 300 ng/mL Performed By: #### D ESTRADA #### [facility] ([id number]) [address] [place] [address] 55417 ECSTASY Negative Normal NEG [facility] Comment on above: Result Comment: Ecst asy screening cut off value = 500 ng/mL This report is intended for use in clinical monitoring or management of patients. Performed By: #### D ESTRADA #### [facility] ([id number]) [address] [place] [address] 35887 METHADONE Negative Normal NEG [facility] Comment on above: Result Comment: Meth adone screening cut off value = 300 ng/mL. Performed By: #### D ESTRADA #### [facility] ([id number]) [address] [place] [address] 25580 OPIATES Negative Normal NEG [facility] Comment on above: Result Comment: Opia caryn screening cut off value = 300 ng/mL NOTE: This test is used for the detection of codeine, hydrocodone (>1000 ng/mL), morphine and hydromorphone (>900 ng/mL) in urine. Performed By: #### D ESTRADA #### [facility] ([id number]) [address] [place] [address] 21274 OXYCODONE Negative Normal NEG [facility] Comment on above: Result Comment: Oxyc odone screening cut off value = 300 ng/mL NOTE: This test is used for the detection of oxycodone and oxymorphone in urine. Performed By: #### D ESTRADA #### [facility] ([id number]) [address] [place] [address] 00199 PHENCYCLIDINE Negative Normal NEG [facility] Comment on above: Result Comment: Phen cyclidine screening cut off value = 25 ng/mL Performed By: #### D ESTRADA #### [facility] ([id number]) [address] [place] [address], [place] [address] ECG 12 lead ECGon 01-18-2024 ECG 12 lead ECG [facility] Main Bear [address] [place] [address]154 Electrocardiograph Report Signed Patient: Loyda Scott MR#: [id number] : 1975 Acct:[id number] Age/Sex: 48 / F ADM Date: 01/18/24 Loc: Room: [address] [place] [address] Type: ADM IN Attending Dr: Olvin Rollins [...] longer present Confirmed by José Miguel Sinha ([id number]) on 01/18/2024 11:23:48 AM Referred By: Electronically Signed By:José Miguel Sinha Transcribed By: MUS Signed By José Miguel Sinha MD 01/18/24 1123 Normal [facility] [facility] ETHANOLon 01-18-2024 Ethanol [Mass/Vol] mg/dL Normal 0.00-0.08 [facility] Comment on above: Result Comment: This report is intended for use in clinical monitoring or management of patients. Performed By: #### C BCA, CMP, 5643-2, THYR #### [facility] ([id number]) [address] [place] [address] Lipid Panelon 01-18-2024 LDL Cholesterol,Calculated 100 mg/dL Normal 0-100 [facility] Comment on above: Order Comment: ORIGI ONAL SPECIMEN HEMOLYZED. NOTIFIED GERARDO Result Comment: LDL ATP III CLASSIFICATION LDL less than 100 mg/dL Optimal LDL 100-129 mg/dL Near or above optimal LDL 130-159 mg/dL Borderline high LDL 160-189 mg/dL High LDL greater than 189 mg/dL Very high Performed By: #### C HOL, [id number] #### [facility] [address] Triglyceride w/Reflex 78 mg/dL Normal 0-149 [facility] Comment on above: Order Comment: ORIGI ONAL SPECIMEN HEMOLYZED. NOTIFIED GERARDO Result Comment: TRIG ATP III CLASSIFICATION TRIG less than 150 mg/dL Normal TRIG 150-199 mg/dL Borderline high TRIG 200-500 mg/dL High TRIG greater than 500 mg/dL Very high Standard traceable to the Center for Disease Conrtrol and Prevention (CDC) test method. Performed By: #### C HOL, [id number] #### [address] VLDL CHOLESTEROL 15 mg/dL Normal [facility] Comment on above: Order Comment: ORIGI ONAL SPECIMEN HEMOLYZED. NOTIFIED GERARDO Performed By: #### C HOL, [id number] #### [address] Serum or plasma high density lipoprotein (HDL) cholesterol measurementOrdered By: Olvin Rollins on 01-18-2024 Cholesterol in HDL [Mass/Vol] 49 mg/dL Normal 23-92 [facility] Comment on above: HDL CHOL ATP-III CLA SSIFICATION Cardiovascular RiskHDL > or equal to 60 mg/dL LOWHDL < 40 mg/dL HIGH Order Comment: ORIGI ONAL SPECIMEN HEMOLYZED. NOTIFIED GERARDO Result Comment: HDL CHOL ATP-III CLASSIFICATION Cardiovascular Risk HDL > or equal to 60 mg/dL LOW HDL < 40 mg/dL HIGH Performed By: #### C HOL, [id number] #### [facility] [address] [place] [address] Serum or plasma total choles terol/high density lipoprotein (HDL) cholesterol mass ratOrdered By: Olvin Rollins on 01-18-2024 Cholesterol.total/Rachel sterol in HDL [Mass ratio] 3.4 {ratio} Normal <5.0 [facility] Comment on above: Order Comment: ORIGI ONAL SPECIMEN HEMOLYZED. NOTIFIED GERARDO Performed By: #### C HOL, [id number] #### [facility] [address] THYROID PROFILEon 01-18-2024 Free T4 [Mass/Vol] 1.02 ng/dL Normal 0.61-1.60 [facility] Comment on above: Performed By: #### C BCA, [facility], 5643-2, THYR #### [facility] ([id number]) [address] [place] [address]173 TSH 7.73 uIU/mL High 0.49-4.67 [facility] Comment on above: Performed By: #### C BCA, [facility], 43-2, THYR #### [facility] ([id number]) [address] [place] [address] 28625 Thyroid Stim Hormone w/Rflxo n 01-18-2024 Thyroid Stim Hormone w/Rflx 5.89 u[iU]/mL High 0.45-5.33 [facility] Comment on above: Order Comment: ORIGI ONAL SPECIMEN HEMOLYZED. NOTIFIED GERARDO Performed By: #### C HOL, [id number] #### [address] Thyrotropin [Units/volume] i n Serum or PlasmaOrdered By: Olvin Rollins on 01-18-2024 TSH Qn 5.89 m[IU]/L 0.45-5.33 [facility] Thyroxine (T4) free [Mass/vo lume] in Serum or PlasmaOrdered By: Olvin Rollins on 01-18-2024 Free T4 [Mass/Vol] 0.96 ng/dL Normal 0.61-1.12 [facility] Comment on above: Order Comment: ORIGI ONAL SPECIMEN HEMOLYZED. NOTIFIED GERARDO Performed By: #### C HOL, [id number] #### [facility] [address] [id number] [facility] Triglyceride [Mass/volume] i n Serum or PlasmaOrdered By: Olvin Rollins on 01-18-2024 Triglyceride [Mass/Vol] 78 mg/dL 0-149 [facility] Comment on above: TRIG ATP III CLASSIF ICATIONTRIG less than 150 mg/dL NormalTRIG 150-199 mg/dL Borderline highTRIG 200-500 mg/dL High TRIG greater than 500 mg/dL Very highStandard traceable to the Center for Disease Conrtrol and Prevention (CDC) test method. URN MACROSCOPIC NURon 2023 BILIRUBIN LESLYE Small Abnormal NEG [facility] Comment on above: Performed By: #### N UM #### [facility] ([id number]) [address] [place] [address]4047 BLOOD/HGB LESLYE Trace Abnormal NEG [facility] Comment on above: Performed By: #### N UM #### [facility] ([id number]) [address] [place] [address] 29499 GLUCOSE LESLYE Negative Normal NEG [facility] Comment on above: Performed By: #### N UM #### [facility] ([id number]) [address] [place] [address]60[address] KETONES LESLYE 40 mg/dL Abnormal NEG [facility] Comment on above: Performed By: #### N UM #### [facility] ([id number]) [address] [place] [address]285 LEUKOCYTE ESTERASE LESLYE Small Abnormal NEG [facility] Comment on above: Performed By: #### N UM #### [facility] ([id number]) [address] [place] [address] 32888 NITRITE LESLYE Negative Normal NEG [facility] Comment on above: Performed By: #### N UM #### [facility] ([id number]) [address] [place] [address] 80329 PH LESLYE 5.5 Normal 5.0-8.5 [facility] Comment on above: Performed By: #### N UM #### [facility] ([id number]) [address] [place] [address], [place] [address] PROTEIN LESLYE Negative Normal NEG [facility] Comment on above: Performed By: #### N UM #### [facility] ([id number]) [address] [place] [address], [place] [address] SPECIFIC GRAVITY LESLYE >=1.030 Normal 1.003-1.035 [place] Comment on above: Performed By: #### N UM #### [facility] ([id number]) [address] [place] [address], [place] [address] UROBILINOGEN LESLYE 0.2 eu/dL Normal <1.1 [facility] Comment on above: Performed By: #### N UM #### [facility] ([id number]) [address] [place] [address], [place] [address] Vitamin D 25 Hydroxy Totalon 01-18-2024 Vitamin D 25 Hydroxy Total 37.9 ng/mL Normal 30-100 [facility] Comment on above: Order Comment: ORIGI ONAL SPECIMEN HEMOLYZED. NOTIFIED GERARDO Result Comment: MARINA MIN D STATUS 25(OH)VITAMIN D RANGE (ng/mL) Deficient <20 Insufficient 20 to <30 Sufficient 30 to 100 Reference: Roque MF,Jhony NC, Janina LAYTON, et al. Evaluation,treatment, and prevention of vitamin D deficiency; an Endocrine Society clinical practice guideline. JCEM. 2010; 96(7):1911-30. PERFORMED BY: [address] [address] PATHOLOGIST SEAL DELIVERY VEHICLE OFFICER TODD PICKARD M.D. Performed By: #### C JUAN MANUEL, [id number] #### [address] [address] [facility] Vitamin D+Metabolites [Mass/ volume] in Serum or PlasmaOrdered By: Olvin Rollins on 01-18-2024 Vitamin D+Metabolites [Mass/Vol] 37.9 ng/mL 30-100 [facility] Comment on above: VITAMIN D STATUS 25( [place])VITAMIN D RANGE (ng/mL) Deficient <20 Insufficient 20 to <30Sufficient 30 to 100Reference: Roque MF,Jhony NC, Janina LAYTON, et al. Evaluation,treatment, and prevention of vitamin D deficiency; an Endocrine Society clinical practice guideline. JCEM. 2010; 96(7):1911-30. C-reactive proteinon 024 CRP [Mass/Vol] 0.8 mg/dL High 0.000 - 0.744 mg/dL [facility] CBC AND AUTO DIFFon 12-02-19 24 ABSOLUTE BASOPHIL 0.1 X10E9/L Normal 0.0-0.2 [facility] Comment on above: Performed By: #### C BCA, 00058-1, CMP, , 1988-02, FEPR, TSHR, 2283-8, 9, 24261-3, 2243-4 #### [facility] ([id number]) [address], [address] [place] [address] ABSOLUTE NEUTROPHIL 5.9 X10E9/L Normal 1.5-6.6 [facility] Comment on above: Performed By: #### C BCA, 63403-3, CMP, , 1988-02, FEPR, TSHR, 2283-, 2132-06, 55352-2, 2243-4 #### [facility] ([id number]) [address] [place] [address] Basophils/100 WBC (Bld) 0.7 % Normal P [facility] Comment on above: Performed By: #### C BCA, 94694-9, CMP, , 1988-02, FEPR, TSHR, 4-8, 2131-9, 12623-9, 2243-4 #### [facility] ([id number]) [address], [address] [place] [address] Eosinophils (Bld) [#/Vol] 0.0 10*3/uL Normal 0.0-0.4 [facility] Comment on above: Performed By: #### C KIMBERLEE, 43793-4, CMP, , 1988-02, FEPR, TSHR, 2283-8, 2132-06, 95303-3, 2242- #### [facility] ([id number]) [address] [address] [place] [address] Eosinophils/100 WBC (Bld) 0.6 % Normal [facility] Comment on above: Performed By: #### C KIMBERLEE, 05999-5, CMP, , 1988-02, FEPR, TSHR, 2284-05, 2132-06, 96622-3, 2242- #### [facility] ([id number]) [address] [place] [address] Erythrocyte distribution width (RBC) [Ratio] 12.8 % Normal 11.5-15.0 [facility] Comment on above: Performed By: #### C KIMBERLEE, 42719-4, CMP, , 1988-02, FEPR, TSHR, 2283-, 2132-06, 06457-9, 2242- #### [facility] ([id number]) [address] [place] [address] Hematocrit (Bld) [Volume fraction] 39.7 % Normal 35-47 [facility] Comment on above: Performed By: #### C KIMBERLEE, 25711-3, CMP, , 1988-02, FEPR, TSHR, 2284-05, 2132-06, 97004-4, 2242- #### [facility] ([id number]) [address] [place] [address] Hemoglobin (Bld) [Mass/Vol] 13.5 g/dL Normal 11.7-15.5 [facility] Comment on above: Performed By: #### C BCA, 49894-4, CMP, , 1988-02, FEPR, TSHR, 2284-05, 2132-06, 40403-0, 2242- #### [facility] ([id number]) [address], [address] [place] [address] Lymphocytes (Bld) [#/Vol] 0.9 10*3/uL Low 1.0-3.5 [facility] Comment on above: Performed By: #### C BCA, 90234-4, CMP, , 1988-02, FEPR, TSHR, 2284-05, 2132-06, 33568-1, 2242- #### [facility] ([id number]) [address] [place] [address] Lymphocytes/100 WBC (Bld) 12.8 % Normal [facility] Comment on above: Performed By: #### C BCA, 56776-5, CMP, , 1988-02, FEPR, TSHR, 2284-05, 2132-06, 53766-2, 2242- #### [facility] ([id number]) [address] [place] [address] MCH (RBC) [Entitic mass] 32.6 pg Normal 27-34 [facility] Comment on above: Performed By: #### C BCA, 26209-8, CMP, , 1988-02, FEPR, TSHR, 2284-05, 2132-06, 37812-6, 2242- #### [facility] ([id number]) [address] [place] [address] MCHC (RBC) [Mass/Vol] 34.0 g/dL Normal 32-36 [facility] Comment on above: Performed By: #### C BCA, 50304-2, CMP, , 1988-02, FEPR, TSHR, 2283-, 2131-9, 21838-4, 224-4 #### [facility] ([id number]) [address] [place] [address] MCV (RBC) [Entitic vol] 96 fL Normal 80-100 [facility] Comment on above: Performed By: #### C BCA, 78997-6, CMP, , 1988-02, FEPR, TSHR, 2283-, 2132-06, 72907-6, 2242-4 #### [facility] ([id number]) [address], [address] [place] [address] Monocytes (Bld) [#/Vol] 0.5 10*3/uL Normal 0-0.9 [facility] Comment on above: Performed By: #### C BCA, 51220-9, CMP, , 1988-02, FEPR, TSHR, 2283-, 2132-06, 95812-1, 2242- #### [facility] ([id number]) [address], [address] [place] [address] Monocytes/100 WBC (Bld) 6.2 % Normal [facility] Comment on above: Performed By: #### C BCA, 98681-3, CMP, , 1988-02, FEPR, TSHR, 2284-05, 2132-06, 67520-4, 2242- #### [facility] ([id number]) [address], [address] [place] [address] Neutrophils/100 WBC (Bld) 79.7 % Normal [facility] Comment on above: Performed By: #### C BCA, 51717-2, CMP, , 1988-02, FEPR, TSHR, 2283-, 2132-06, 79692-3, 224- #### [facility] ([id number]) [address] [place] [address] Platelet mean volume (Bld) [Entitic vol] 9.6 fL Normal 7-12 [facility] Comment on above: Performed By: #### C KIMBERLEE, 96454-8, CMP, 94662-9, 1988-02, FEPR, TSHR, 228-8, 2131-9, 34128-5, 2243-4 #### [facility] ([id number]) [address] [place] [address] Platelets (Bld) [#/Vol] 249 10*3/uL Normal 150-450 [facility] Comment on above: Performed By: #### C KIMBERLEE, 45251-1, CMP, 79213-0, 1988-02, FEPR, TSHR, 2283-8, 2131-9, 64969-7, 2243-4 #### [facility] ([id number]) [address] [place] [address] RBC COUNT 4.13 X10E12/L Normal 3.80-5.20 [facility] Comment on above: Performed By: #### C KIMBERLEE, 00158-1, CMP, , 1988-02, FEPR, TSHR, 2283-8, 2131-9, 91220-2, 2243-4 #### [facility] ([id number]) [address] [place] [address] WBC (Bld) [#/Vol] 7.3 10*3/uL Normal 4.0-11.0 [facility] Comment on above: Performed By: #### C BCA, 33082-7, CMP, , 1988-02, FEPR, TSHR, 2283-, 2132-06, 17308-7, 2243-4 #### [facility] ([id number]) [address] [place] [address] CBC auto differentialon 03-0 Basophils (Bld) [#/Vol] 0.1 10*3/uL [facility] Basophils/100 WBC (Bld) 0.7 % P [facility] Eosinophils (Bld) [#/Vol] 0.0 10*3/uL [facility] Eosinophils/100 WBC (Bld) 0.6 % [facility] Erythrocyte distribution width (RBC) [Ratio] 12.8 % 11.5 - 15.0 % [facility] Hematocrit (Bld) [Volume fraction] 39.7 % 35 - 47 % [facility] Hemoglobin (Bld) [Mass/Vol] 13.5 g/dL 11.7 - 15.5 g/dL [facility] Interpretation and review of laboratory results Abnormal [facility] Lymphocytes (Bld) [#/Vol] 0.9 10*3/uL Low [facility] Lymphocytes/100 WBC (Bld) 12.8 % [facility] MCH (RBC) [Entitic mass] 32.6 pg 27 - 34 pg [facility] MCHC (RBC) [Mass/Vol] 34.0 g/dL 32 - 36 g/dL [facility] MCV (RBC) [Entitic vol] 96 fL 80 - 100 fL [facility] Monocytes (Bld) [#/Vol] 0.5 10*3/uL [facility] Monocytes/100 WBC (Bld) 6.2 % P [facility] Neutrophils (Bld) [#/Vol] 5.9 10*3/uL [facility] Neutrophils/100 WBC (Bld) 79.7 % [facility] Platelet mean volume (Bld) [Entitic vol] 9.6 fL 7 - 12 fL [facility] Platelets (Bld) [#/Vol] 249 10*3/uL [facility] RBC (Bld) [#/Vol] 4.13 10*6/uL [facility] WBC corrected for nucl RBC Auto (Bld) [#/Vol] 7.3 [facility] COMPREHENSIVE METABOLIC PANE Jose 12-02-2023 Albumin [Mass/Vol] 4.4 g/dL Normal 3.2-5.3 [facility] Comment on above: Performed By: #### C BCA, 59089-2, CMP, 28503-5, 1988-02, FEPR, TSHR, 2284-05, 2132-06, 80851-4, 2243-4 #### [facility] ([id number]) [address] [place] [address] ALP [Catalytic activity/Vol] 63 U/L Normal 39-130 [facility] Comment on above: Performed By: #### C BCA, 02260-4, CMP, 25921-7, 1988-02, FEPR, TSHR, 2284-05, 2132-06, 99102-4, 2243-4 #### [facility] ([id number]) [address] [place] [address] ALT [Catalytic activity/Vol] 74 U/L High 0-31 [facility] Comment on above: Performed By: #### C BCA, 79622-8, CMP, 43137-8, 1988-02, FEPR, TSHR, 2283-, 2132-06, 16113-4, 2243-4 #### [facility] ([id number]) [address] [place] [address] Anion gap [Moles/Vol] 16 mmol/L High 5-15 [facility] Comment on above: Performed By: #### C BCA, 91031-7, CMP, 32092-3, 1988-02, FEPR, TSHR, 2284-05, 2132-06, 24616-8, 2243-4 #### [facility] ([id number]) [address] [place] [address] AST [Catalytic activity/Vol] 87 U/L High 0-41 [facility] Comment on above: Performed By: #### C BCA, 21274-0, CMP, 05430-8, 1988-02, FEPR, TSHR, 2283-8, 2132-06, 88560-2, 2243-4 #### [facility] ([id number]) [address] [place] [address] Bilirubin [Mass/Vol] 0.4 mg/dL Normal 0.3-1.2 [facility] Comment on above: Performed By: #### C BCA, 52440-9, CMP, 42307-9, 1988-02, FEPR, TSHR, 2284-05, 2132-06, 71661-0, 2243-4 #### [facility] ([id number]) [address] [place] [address] Calcium [Mass/Vol] 9.4 mg/dL Normal 8.5-10.5 [facility] Comment on above: Performed By: #### C BCA, 90280-3, CMP, 93827-3, 1988-02, FEPR, TSHR, 2284-05, 2132-06, 19344-6, 2243-4 #### [facility] ([id number]) [address] [place] [address] Chloride [Moles/Vol] 102 mmol/L Normal 98-109 [facility] Comment on above: Performed By: #### C BCA, 06317-0, CMP, 95256-8, 1988-02, FEPR, TSHR, 2284-05, 2132-06, 85350-7, 224-4 #### [facility] ([id number]) [address] [place] [address] CO2 [Moles/Vol] 25 mmol/L Normal 22-32 [facility] Comment on above: Performed By: #### C BCA, 43971-3, CMP, 88229-0, 1988-02, FEPR, TSHR, 2284-05, 2132-06, 78307-4, 2243-4 #### [facility] ([id number]) [address] [place] [address] Creatinine [Mass/Vol] 0.89 mg/dL Normal 0.40-1.00 [facility] Comment on above: Result Comment: METH OD TRACEABLE TO IDMS STANDARD Performed By: #### C BCA, 99955-8, CMP, 11444-0, 1988-02, FEPR, TSHR, 2283-8, 2131-9, 58074-6, 2243-4 #### [facility] ([id number]) [address] [place] [address] GFR/1.73 sq M.predicted among non-blacks MDRD (S/P/Bld) [Vol rate/Area] 79 mL/min/{1.73_m2} Normal >59 [facility] Comment on above: Result Comment: Reported eGFR is based on the CKD-EPI 2020 equation that does not use a race coefficient. Performed By: #### C BCA, 12113-3, CMP, , 1988-02, FEPR, TSHR, 2284-05, 2132-06, 79818-7, 2243-4 #### [facility] ([id number]) [address] [place] [address] Glucose [Mass/Vol] 68 mg/dL Normal 65-99 [facility] Comment on above: Performed By: #### C BCA, 44470-8, CMP, , 1988-02, FEPR, TSHR, 2284-05, 2132-06, 01039-8, 2243-4 #### [facility] ([id number]) [address] [place] [address] Potassium [Moles/Vol] 4.2 mmol/L Normal 3.5-5.0 [facility] Comment on above: Performed By: #### C BCA, 25609-7, CMP, 33947-6, 1988-02, FEPR, TSHR, 2283-8, 2132-06, 80801-6, 2243-4 #### [facility] ([id number]) [address] [place] [address] Protein [Mass/Vol] 7.6 g/dL Normal 6.0-8.0 [facility] Comment on above: Performed By: #### C BCA, 27689-6, CMP, 93494-2, 1988-02, FEPR, TSHR, 2283-8, 9, 98477-6, 2243-4 #### [facility] ([id number]) [address] [facility], [address] [place] [address] Sodium [Moles/Vol] 143 mmol/L Normal 134-146 [facility] Comment on above: Performed By: #### C BCA, 14042-4, CMP, 62801-5, 1988-02, FEPR, TSHR, 2283-, 2132-06, 78856-1, 2243-4 #### [facility] ([id number]) [address] [place] [address] Urea nitrogen [Mass/Vol] 7 mg/dL Normal 5-23 [facility] Comment on above: Performed By: #### C BCA, 01104-2, CMP, , 1988-02, FEPR, TSHR, 2283-, 2131-9, 73195-8, 2243-4 #### [facility] ([id number]) [address] [place] [address] CRP [Mass/Vol]on 12-02-2023 C REACTIVE PROTEIN 0.8 mg/dL High 0.000-0.744 [facility] Comment on above: Performed By: #### C BCA, 85346-6, CMP, 42432-9, 1988-02, FEPR, TSHR, 2283-, 2132-06, 59820-9, 2243-4 #### [facility] ([id number]) [address] [place] [address] Cobalamin (Vitamin B12) [Mas s/Vol]on 12-02-2023 Interpretation and review of laboratory results Abnormal [facility] Comprehensive metabolic pane jose 12-02-2023 Albumin [Mass/Vol] 4.4 g/dL 3.2 - 5.3 g/dL [facility] ALP [Catalytic activity/Vol] 63 U/L 39 - 130 U/L [facility] ALT No additional P-5'-P [Catalytic activity/Vol] 74 U/L High 0 - 31 U/L [facility] Anion gap [Moles/Vol] 16 mmol/L High 5 - 15 mmol/L [facility] AST [Catalytic activity/Vol] 87 U/L High 0 - 41 U/L [facility] Bilirubin [Mass/Vol] 0.4 mg/dL 0.3 - 1 .2 mg/dL [facility] Calcium [Mass/Vol] 9.4 mg/dL 8.5 - 10. 5 mg/dL [facility] Chloride [Moles/Vol] 102 mmol/L 98 - 10 9 mmol/L [facility] CO2 [Moles/Vol] 25 mmol/L 22 - 32 mmol/L [facility] Creatinine [Mass/Vol] 0.89 mg/dL 0.40 - 1.00 mg/dL [facility] Comment on above: METHOD TRACEABLE TO [facility] STANDARD eGFR (CKD-EPI)non-race dependent 79 - PINF [facility] Comment on above: Reported eGFR is based on the CKD-EPI 2020 equation that does not use a race coefficient. Glucose [Mass/Vol] 68 mg/dL 65 - 99 mg/dL [facility] Potassium [Moles/Vol] 4.2 mmol/L 3.5 - 5.0 mmol/L [facility] Protein [Mass/Vol] 7.6 g/dL 6.0 - 8.0 g/dL [facility] Sodium [Moles/Vol] 143 mmol/L 134 - 146 mmol/L [facility] Urea nitrogen [Mass/Vol] 7 mg/dL 5 - 23 mg/dL [facility] E2 [Mass/Vol]on 12-02-2023 [facility] ESTRADIOL 16.6 pg/mL Normal [facility] Comment on above: Result Comment: NON- [...] this assay. Performed By: #### C KIMBERLEE, 18896-9, [facility], 94677-1, 1990-02, FEPR, TSHR, 2283-8, 2132-06, 35351-4, 3-4 #### [facility] ([id number]) [address] [place] [address] [address] [place] [address] ESR Photometric method (Bld) [Velocity]on 12-02-2023 [facility] ESR, ERYTHROCYTE SEDIMENTATION RATE 29 mm/h Normal 0-30 [facility] Comment on above: Performed By: #### C KIMBERLEE, 07230-0, [facility], 97912-0, 1990-02, FEPR, TSHR, 2283-8, 9, 85545-6, 2243-4 #### [facility] ([id number]) [address] [place] [address] [address] [place] [address] Erythrocyte Sedimentation Ra te (ESR)on 12-02-2023 ESR Photometric method (Bld) [Velocity] 29 mm/h 0 - 30 mm/h [facility] Estradiolon 12-02-2023 E2 [Mass/Vol] 16.6 pg/mL [facility] Comment on above: NON- FEMALES Mid [...] Folate [Mass/Vol] ng/mL 5.8 - PINF ng/mL [facility] Comment on above: NEW REFERENCE RANGE Folate [Mass/Vol]on 12-02-19 24 [facility] FOLIC ACID >25.0 Normal >5.8 [facility] Comment on above: Result Comment: NEW REFERENCE RANGE Performed By: #### C BCA, 12491-2, [facility], 54979-1, 1990-02, FEPR, TSHR, 2284-8, 2132-9, 93003-9, 2243-4 #### [facility] ([id number]) [address] [place] [address], [address] [place] [address] HGB A1C (GLYCO-HGB)on 2023 Glucose [Mass/Vol] 108 mg/dL Normal [facility] Comment on above: Performed By: #### C BCA, 43275-7, CMP, 24212-1, 1990-02, FEPR, TSHR, 2284-8, 2132-9, 38616-1, 2243-4 #### [facility] ([id number]) [address] [place] [address], [address] [place] [address] HbA1c (Bld) [Mass fraction] 5.4 % Normal 4.4-5.6 [facility] Comment on above: Result Comment: NOTE ADA Guidelines Result HgbA1c Normal : less than 5.7 % Prediabetes : 5.7 % to 6.4 % Diabetes : > 6.4 % Use with caution in patients with abnormal hemoglobin variants as the half-life of red blood cells and in vivo glycation rates are affected. Performed By: #### C BCA, 79324-8, CMP, 75304-5, 1988-02, FEPR, TSHR, 2284-05, 2132-06, 71120-3, 2242-4 #### [facility] ([id number]) [address] [place] [address], [address] [place] [address] Hemoglobin A1con 12-02-2023 Average glucose Estimated from glycated hemoglobin (Bld) [Mass/Vol] 108 mg/dL [facility] HbA1c (Bld) [Mass fraction] 5.4 % 4.4 - 5.6 % [facility] Comment on above: NOTE ADA Guidelines Result HgbA1c Normal : less than 5.7 % Prediabetes : 5.7 % to 6.4 % Diabetes : > 6.4 % Use with caution in patients with abnormal hemoglobin variants as the half-life of red blood cells and in vivo glycation rates are affected. [facility] IRON PROFILEon 12-02-2023 Iron [Mass/Vol] 53 ug/dL Normal 50-170 [facility] Comment on above: Performed By: #### C BCA, 04987-5, CMP, 02856-1, 1988-02, FEPR, TSHR, 2284-05, 2132-06, 44455-0, 2242-4 #### [facility] ([id number]) [address] [address], [address] [place] [address] IRON BINDING 399 ug/dL Normal 250-425 [facility] Comment on above: Performed By: #### C BCA, 26884-3, CMP, 67708-3, 1988-02, FEPR, TSHR, 4-8, 9, 49105-9, 2243-4 #### [facility] ([id number]) [address], [address] [place] [address] IRON SATURATION 13 % SATURATION Low 15-50 [facility] Comment on above: Performed By: #### C BCA, 22501-7, CMP, 57159-3, 1988-02, FEPR, TSHR, 4-8, 9, 61129-1, 2243-4 #### [facility] ([id number]) [address], [address] [place] [address] Iron and TIBCon 12-02-2023 Interpretation and review of laboratory results Abnormal [facility] Iron [Mass/Vol] 53 ug/dL 50 - 170 ug/dL [facility] Iron binding capacity [Mass/Vol] 399 ug/dL 250 - 425 ug/dL [facility] Iron saturation [Mass fraction] 13 Low [facility] Lipid 1996 panelon 4 Cholesterol [Mass/Vol] 174 mg/dL 150 - 200 mg/dL [facility] Cholesterol in HDL [Mass/Vol] 55 mg/dL 39 - PINF mg/dL [facility] Comment on above: HDL <40 mg/dL - High Risk HDL > or = 40mg/dL- Desirable HDL >60 mg/dL - Negative Risk Cholesterol in LDL [Mass/Vol] 106 mg/dL NINF - 130 mg/dL [facility] Comment on above: LDL <100 mg/dL - Desirable LDL >160 mg/dL - High Risk Cholesterol in VLDL [Mass/Vol] 13 mg/dL 0 - 30 mg/dL [facility] Cholesterol.total/Rachel sterol in HDL [Mass ratio] 3.2 {ratio} 1.0 - 5.0 [facility] Triglyceride [Mass/Vol] 64 mg/dL 27 - 150 mg/dL [facility] Cholesterol [Mass/Vol] 174 mg/dL Normal 150-[address] [facility] Comment on above: Performed By: #### C KIMBERLEE, 66162-8, CMP, 24311-0, 1988-02, FEPR, TSHR, 2283-8, 2131-9, 47242-2, 2243-4 #### [facility] ([id number]) [address] [place] [address], [address] [place] [address] Cholesterol in HDL [Mass/Vol] 55 mg/dL Normal >39 [facility] Comment on above: Result Comment: HDL <40 mg/dL - High Risk HDL > or = 40mg/dL- Desirable HDL >60 mg/dL - Negative Risk Performed By: #### C KIMBERLEE, 72121-3, CMP, , 1988-02, FEPR, TSHR, 8, 9, 03494-0, 3-4 #### [facility] ([id number]) [address] [place] [address], [address] [place] [address] Cholesterol in LDL [Mass/Vol] 106 mg/dL Normal <130 [facility] Comment on above: Result Comment: LDL <100 mg/dL - Desirable LDL >160 mg/dL - High Risk Performed By: #### C KIMBERLEE, 59645-2, CMP, , 1988-02, FEPR, TSHR, 2284-8, 2132-9, 68929-7, 2243-4 #### [facility] ([id number]) [address] [facility], [address] [place] [address] Cholesterol in VLDL [Mass/Vol] 13 mg/dL Normal 0-30 [facility] Comment on above: Performed By: #### C BCA, 95335-7, CMP, 53271-8, 1988-02, FEPR, TSHR, 2284-05, 2132-06, 59074-9, 2243-4 #### [facility] ([id number]) [address] [facility], [address] [place] [address] CHOLESTEROL:HDL 3.2 Normal 1.0-5.0 [facility] Comment on above: Performed By: #### C BCA, 96051-8, CMP, 24052-1, 1988-02, FEPR, TSHR, 2284-05, 2132-06, 44893-6, 2243-4 #### [facility] ([id number]) [address] [facility], [address] [place] [address] Triglyceride [Mass/Vol] 64 mg/dL Normal 27-150 [facility] Comment on above: Performed By: #### C BCA, 16922-1, CMP, 32674-8, 1988-02, FEPR, TSHR, 2284-05, 2132-06, 20616-0, 2243-4 #### [facility] ([id number]) [address] [facility], [address] [place] [address] No Panel Informationon 12-01 [facility] Interpretation and review of laboratory results Abnormal [facility] TSH WITH REFLEXon 12-02-2023 TSH 0.95 uIU/mL Normal 0.49-4.67 [facility] Comment on above: Performed By: #### C BCA, 96433-0, CMP, 30254-5, 1988-02, FEPR, TSHR, 2284-05, 2132-06, 30632-5, 2243-01 #### [facility] ([id number]) [address], [address] [place] [address] TSH with Reflexon 12-02-2023 TSH Qn 0.95 m[IU]/L [facility] VITAMIN B12on 12-02-2023 Cobalamin (Vitamin B12) [Mass/Vol] 1413 pg/mL High 180-914 [facility] Comment on above: Performed By: #### C BCA, 78647-4, CMP, 57525-2, 1987-, FEPR, TSHR, 2283-8, 9, 99342-9, 2243-01 #### [facility] ([id number]) [address], [address] [place] [address] Vitamin B12on 12-02-2023 Cobalamin (Vitamin B12) [Mass/Vol] 1413 pg/mL High 180 - 914 pg/mL [facility] Vitamin D 25 hydroxyon 12-01 Vitamin D+Metabolites [Mass/Vol] 40.4 ng/mL 30 - 100 ng/mL [facility] Comment on above: Vitamin D status 25 [place] Vitamin D Deficiency <20 ng/mL Insufficiency 20-29 ng/mL Sufficiency 30-100 ng/mL Toxicity >100 ng/mL NOTE: A pediatric reference range has not been established by the manager retail of this kit. The [place] [employer] recommends a Vitamin D level of = or >20ng/mL in infants and children. Vitamin D+Metabolites [Mass/ Vol]on 12-02-2023 [facility] VITAMIN D 25 HYD TOT 40.4 ng/mL Normal 30-100 [facility] Comment on above: Result Comment: Vitamin D status 25 [place] Vitamin D Deficiency <20 ng/mL Insufficiency 20-29 ng/mL Sufficiency 30-100 ng/mL Toxicity >100 ng/mL NOTE: A pediatric reference range has not been established by the manager retail of this kit. The [place] [employer] recommends a Vitamin D level of = or >20ng/mL in infants and children. Performed By: #### C BCA, 48557-3, CMP, 67617-9, 1988-5, FEPR, TSHR, 2284-8, 2132-9, 47186-0, 2243-4 #### [facility] ([id number]) [address] [facility], [address] [place] [address] Cholesterol [Mass/volume] in Serum or PlasmaOrdered By: Miah Abreu on 10-11-2023 Cholesterol [Mass/Vol] 224 mg/dL High 140-200 [facility] Comment on above: Chol less than 200 m g/dl low riskChol 201-239 mg/dl borderline riskChol 240 mg/dl and greater high risk Order Comment: ORIGI ONAL SPECIMEN HEMOLYZED. NOTIFIED GERARDO Result Comment: Chol less than 200 mg/dl low risk Chol 201-239 mg/dl borderline risk Chol 240 mg/dl and greater high risk Performed By: #### C HOL, [id number] #### [facility] [address] Cholesterol in LDL Calc [Mas s/Vol]Ordered By: Miah Abreu on 10-11-2023 Cholesterol in LDL [Mass/Vol] TNP [facility] Comment on above: Test not performed Cholesterol in VLDL Calc [Ma ss/Vol]Ordered By: Miah Abreu on 10-11-2023 Cholesterol in VLDL [Mass/Vol] 17 mg/dL [facility] Lipid Panelon 10-11-2023 Cholesterol Normal 140-200 [facility] Comment on above: Result Comment: Spec imen hemolyzed, redraw requested Chol less than 200 mg/dl low risk Chol 201-239 mg/dl borderline risk Chol 240 mg/dl and greater high risk Performed By: #### L IPID, TSH3 wRFLX, [id number] #### [facility] [address] Cholesterol.total/Rachel sterol in HDL [Mass ratio] Not performed Normal <5.0 [facility] Comment on above: Performed By: #### L IPID, TSH3 wRFLX, [id number] #### [facility] [address] [place] [id number] [facility] LDL Cholesterol,Calculated Not performed Normal 0-100 [facility] Comment on above: Performed By: #### L IPID, TSH3 wRFLX, [id number] #### [facility] [address] [place] [id number] [facility] Triglyceride w/Reflex 89 mg/dL Normal 0-149 [facility] Comment on above: Result Comment: TRIG ATP III CLASSIFICATION TRIG less than 150 mg/dL Normal TRIG 150-199 mg/dL Borderline high TRIG 200-500 mg/dL High TRIG greater than 500 mg/dL Very high Standard traceable to the Center for Disease Conrtrol and Prevention (CDC) test method. Performed By: #### L IPID, TSH3 wRFLX, [id number] #### [address] VLDL CHOLESTEROL 17 mg/dL Normal [facility] Comment on above: Performed By: #### L IPID, TSH3 wRFLX, [id number] #### [place] [id number] [facility] Serum or plasma high density lipoprotein (HDL) cholesterol measurementOrdered By: Miah Abreu on 10-11-2023 Cholesterol in HDL [Mass/Vol] 57 mg/dL Normal 23-92 [facility] Comment on above: HDL CHOL ATP-III CLA SSIFICATION Cardiovascular RiskHDL > or equal to 60 mg/dL LOWHDL < 40 mg/dL HIGH Result Comment: HDL CHOL ATP-III CLASSIFICATION Cardiovascular Risk HDL > or equal to 60 mg/dL LOW HDL < 40 mg/dL HIGH Performed By: #### L IPID, TSH3 wRFLX, [id number] #### [facility] [address] [place], [place] [id number] [facility] Serum or plasma total choles terol/high density lipoprotein (HDL) cholesterol mass ratOrdered By: Miah Abreu on 10-11-2023 Cholesterol.total/Rachel sterol in HDL [Mass ratio] TNP [facility] Comment on above: Test not performed Thyroid Stim Hormone w/Rflxo n 10-11-2023 Thyroid Stim Hormone w/Rflx 1.09 u[iU]/mL Normal 0.45-5.33 [facility] Comment on above: Performed By: #### C HOL, [id number] #### [facility] [address] Thyrotropin [Units/volume] i n Serum or PlasmaOrdered By: Miah Abreu on 10-11-2023 TSH Qn 1.09 m[IU]/L 0.45-5.33 [facility] Triglyceride [Mass/volume] i n Serum or PlasmaOrdered By: Miah Mirandaus on 10-11-2023 Triglyceride [Mass/Vol] 89 mg/dL 0-149 [facility] Comment on above: TRIG ATP III CLASSIF ICATIONTRIG less than 150 mg/dL NormalTRIG 150-199 mg/dL Borderline highTRIG 200-500 mg/dL High TRIG greater than 500 mg/dL Very highStandard traceable to the Center for Disease Conrtrol and Prevention (CDC) test method. Vitamin D 25 Hydroxy Totalon 10-11-2023 Vitamin D 25 Hydroxy Total 31.6 ng/mL Normal 30-100 [facility] Comment on above: Order Comment: ORIGI ONAL SPECIMEN HEMOLYZED. NOTIFIED GERARDO Result Comment: MARINA MIN D STATUS 25([place])VITAMIN D RANGE (ng/mL) Deficient <20 Insufficient 20 to <30 Sufficient 30 to 100 Reference: Roque MF,Jhony NC, Janina LAYTON, et al. Evaluation,treatment, and prevention of vitamin D deficiency; an Endocrine Society clinical practice guideline. JCEM. 2010; 96(7):1911-30. PERFORMED BY: [place] [address] PATHOLOGIST SEAL DELIVERY VEHICLE OFFICER TODD PICKARD M.D. Performed By: #### C HOL, [id number] #### [address] Vitamin D 25 Hydroxy Total Normal 30-100 [facility] Comment on above: Result Comment: Spec imen hemolyzed, redraw requested VITAMIN D STATUS 25(OH)VITAMIN D RANGE (ng/mL) Deficient <20 Insufficient 20 to <30 Sufficient 30 to 100 Reference: Jhony Fu, Janina LAYTON, et al. Evaluation,treatment, and prevention of vitamin D deficiency; an Endocrine Society clinical practice guideline. JCEM. 2010; 96(7):1911-30. PERFORMED BY: [place] [address] PATHOLOGIST SEAL DELIVERY VEHICLE OFFICER TODD PICKARD M.D. Performed By: #### C HOL, [id number] #### [address] Vitamin D+Metabolites [Mass/ volume] in Serum or PlasmaOrdered By: Miah Abreu on 10-11-2023 Vitamin D+Metabolites [Mass/Vol] 31.6 ng/mL 30-100 [facility] Comment on above: VITAMIN D STATUS 25( [place])VITAMIN D RANGE (ng/mL) Deficient <20 Insufficient 20 to <30Sufficient 30 to 100Reference: Roque CARBALLO,Jhony MEDINA, Janina LAYTON, et al. Evaluation,treatment, and prevention of vitamin D deficiency; an Endocrine Society clinical practice guideline. JCEM. 2010; 96(7):1911-30. Amphetamine Screen Ql (U)Ord ered By: Miah Abreu on 10-10-2023 Amphetamines Ql (U) Negative Negative [facility] Automated erythrocytes count in urine sediment (number/area)Ordered By: Miah Abreu on 10-10-2023 RBC Auto (Urine sed) [#/Area] 0-1 [HPF] 0-4 [facility] Automated leukocytes count i n urine sediment (number/area)Ordered By: Miah Abreu on 10-10-2023 WBC Auto (Urine sed) [#/Area] Innumerable [HPF] 0-4 [facility] Automated urine color determ inationOrdered By: Miah Abreu on 10-10-2023 Color (U) Yellow Normal Yellow [facility] Comment on above: Order Comment: Name Collection Type:: Voided Performed By: #### U RDS, ADDONUAPLUS, CUU #### [facility] [address] [place] [id number] [place] Barbiturates [Presence] in U rine by Screen methodOrdered By: Miah Abreu on 10-10-2023 Barbiturates Screen Ql (U) Negative Negative [facility] Benzodiazepines Screen Ql (U )Ordered By: Miah Abreu on 10-10-2023 Benzodiazepines Ql (U) Positive Negative [facility] Benzoylecgonine [Presence] i n Urine by Screen methodOrdered By: Miah Abreu on 10-10-2023 Benzoylecgonine Screen Ql (U) Positive Negative [facility] Bilirubin Test strip Ql (U)O rdered By: Miah Abreu on 10-10-2023 Bilirubin Ql (U) Negative Negative [facility] Cannabinoids [Presence] in U rine by Screen methodOrdered By: Miah Abreu on 10-10-2023 Cannabinoids Screen Ql (U) Positive Negative [facility] Comment on above: These are unconfirme d results and should not be used for legal purposes. Drug Cut-Off Concentration: AMPH 1000 ng/mL AUGUSTINA 200 ng/mL MARLYS 200 ng/mL COCM 300 ng/mL OP 300 ng/mL PCP 25 ng/mL THC 20 ng/mL Dipstick and Microscopicon 0 10-10-2023 Appearance (U) Cloudy Critically abnormal Clear [facility] Comment on above: Order Comment: Name Collection Type:: Voided Performed By: #### U RDS, ADDONUAPLUS, CUU #### [facility] [address] [place] [id number] [place] Bacteria,Urine None Seen Normal None Seen [facility] Comment on above: Order Comment: Name Collection Type:: Voided Performed By: #### U RDS, ADDONUAPLUS, CUU #### [facility] [address] [place] [id number] [place] Bilirubin,Urine Negative Normal Negative [facility] Comment on above: Order Comment: Name Collection Type:: Voided Performed By: #### U RDS, ADDONUAPLUS, CUU #### [address] Glucose Ql (U) Normal Normal Normal [facility] Comment on above: Order Comment: Name Collection Type:: Voided Performed By: #### U RDS, ADDONUAPLUS, CUU #### [place] [address] [place] Hyaline Casts,Urine None Seen Normal 0-8 [facility] Comment on above: Order Comment: Name Collection Type:: Voided Result Comment: PERF ORMED BY: [place] [address] PATHOLOGIST SE[employer] DELIV[employer]HICLE OFFICER TODD PICKARD M.D. Performed By: #### U RDS, ADDONUAPLUS, CUU #### [address] Ketones Ql (U) Negative Normal Negative [facility] Comment on above: Order Comment: Name Collection Type:: Voided Performed By: #### U RDS, ADDONUAPLUS, CUU #### [place] [address] [place] Leukocyte esterase Test strip Ql (U) 4+ High Negative [facility] Comment on above: Order Comment: Name Collection Type:: Voided Performed By: #### U RDS, ADDONUAPLUS, CUU #### [place] [address] [place] Nitrite,Urine Negative Normal Negative [facility] Comment on above: Order Comment: Name Collection Type:: Voided Performed By: #### U RDS, ADDONUAPLUS, CUU #### [place] [address] [place] Occult Blood,Urine Negative Normal Negative [facility] Comment on above: Order Comment: Name Collection Type:: Voided Result Comment: PERF ORMED BY: [place] [address] PATHOLOGIST SE[employer] DELIV[employer]HICLE OFFICER TODD PICKARD M.D. Performed By: #### U RDS, ADDONUAPLUS, CUU #### [address] Protein,Urine Negative Normal Negative [facility] Comment on above: Order Comment: Name Collection Type:: Voided Performed By: #### U RDS, ADDONUAPLUS, CUU #### [place] [address] [place] RBC LM.HPF (Urine sed) [#/Area] 0 /[HPF] Normal 0-4 [facility] Comment on above: Order Comment: Name Collection Type:: Voided Performed By: #### U RDS, ADDONUAPLUS, CUU #### [address] Specificy [place],Urine 1.012 Normal 1.001-1.030 [facility] Comment on above: Order Comment: Name Collection Type:: Voided Performed By: #### U RDS, ADDONUAPLUS, CUU #### [place] [address] [place] Squamous Epithelial Cell,Urine 0-1 Normal 0-2 [facility] Comment on above: Order Comment: Name Collection Type:: Voided Performed By: #### U RDS, ADDONUAPLUS, CUU #### [address] Urobilinogen,Urine Normal Normal Normal [facility] Comment on above: Order Comment: Name Collection Type:: Voided Performed By: #### U RDS, ADDONUAPLUS, CUU #### [place] [address] [place] WBC,Urine Innumerable High 0-4 [facility] Comment on above: Order Comment: Name Collection Type:: Voided Performed By: #### U RDS, ADDONUAPLUS, CUU #### [place] [address] [place] Drug Screen,Urineon 10-10-19 24 Amphetamine Screen,Urine Negative Normal Negative [facility] Comment on above: Performed By: #### U RDS, ADDONUAPLUS, CUU #### [address] Barbiturate Screen,Urine Negative Normal Negative [facility] Comment on above: Performed By: #### U RDS, ADDONUAPLUS, CUU #### [address] Benzodiazepines Screen,Urine Positive High Negative [facility] Comment on above: Performed By: #### U RDS, ADDONUAPLUS, CUU #### [address] Cannabinoid Screen,Urine Positive High Negative [facility] Comment on above: Result Comment: Thes e are unconfirmed results and should not be used for legal purposes. Drug Cut-Off Concentration: AMPH 1000 ng/mL AUGUSTINA 200 ng/mL MARLYS 200 ng/mL COCM 300 ng/mL OP 300 ng/mL PCP 25 ng/mL THC 20 ng/mL PERFORMED BY: [place] [address] PATHOLOGIST SE[employer] DELIV[employer]HICLE OFFICER TODD PICKARD M.D. Performed By: #### U RDS, ADDONUAPLUS, CUU #### [place] [address] [place] Cocaine Screen,Urine Positive High Negative [facility] Comment on above: Performed By: #### U RDS, ADDONUAPLUS, CUU #### [address] Opiate Screen,Urine Negative Normal Negative [facility] Comment on above: Performed By: #### U RDS, ADDONUAPLUS, CUU #### [place] [address] [place] Phencyclidine Screen,Urine Negative Normal Negative [facility] Comment on above: Performed By: #### U RDS, ADDONUAPLUS, CUU #### [address] ECG 12 lead ECGon 10-10-2023 ECG 12 lead ECG [facility] Main [place] [address] [place] [address] Electrocardiograph Report Signed Patient: Loyda Scott MR#: [id number] : 1975 Acct:[id number] Age/Sex: 48 / F ADM Date: 10/10/23 Loc: 1S Room: [address] [place] [address] Type: ADM IN Attending Dr: Miah Abreu [...] now present Confirmed by José Miguel Sinha ([id number]) on 10/10/2023 12:54:51 PM Referred By: Electronically Signed By:José Miguel Sinha Transcribed By: MUS Signed By José Miguel Sinha MD 10/10/23 1254 Normal [facility] Ketones Auto test strip (U) [Mass/Vol]Ordered By: Miah Abreu on 10-10-2023 Ketones (U) [Mass/Vol] Negative Negative [facility] - UrinalysisOrder ed By: Miah Abreu on 10-10-2023 Hyaline casts LM Ql (Urine sed) None seen [LPF] 0-8 [facility] Nitrite Test strip Ql (U)Ord ered By: Miah Abreu on 10-10-2023 Nitrite Ql (U) Negative Negative [facility] Opiates [Presence] in Urine by Screen methodOrdered By: Miah Abreu on 10-10-2023 Opiates Screen Ql (U) Negative Negative [facility] Phencyclidine Screen Ql (U)O rdered By: Miah Abreu on 10-10-2023 Phencyclidine Ql (U) Negative Negative [facility] Protein Auto test strip (U) [Mass/Vol]Ordered By: Miah Abreu on 10-10-2023 Protein (U) [Mass/Vol] Negative Negative [facility] Specific gravity Auto test s trip (U) [Rel density]Ordered By: Miah Abreu on 10-10-2023 Specific gravity (U) [Rel density] 1.012 1.001-1.030 [facility] Squamous epithelial cells de tection in urine sediment by light microscopyOrdered By: Miah Abreu on 10-10-2023 Epithelial cells.squamous LM Ql (Urine sed) 0-1 [HPF] 0-2 [facility] Urine Cultureon 10-10-2023 Bacteria identified Cx Nom (U) Urine Culture Results >100,000 col/ml Mixed Bacterial Skin Contaminants 2 Days PERFORMED BY: [place] [address] PATHOLOGIST SE[employer] DELIV[employer]HICLE OFFICER TODD PICKARD M.D. Normal [facility] Comment on above: Performed By: #### U RDS, ADDCLOVER, CUU #### [address] Urine bacteria detection by automated methodOrdered By: Miah Abreu on 10-10-2023 Bacteria Auto Ql (U) None seen None Seen [facility] Urine clarity by refractomet ry automatedOrdered By: Miah Abreu on 10-10-2023 Clarity Refractometry automated (U) Cloudy Clear [facility] Urine culture routineOrdered By: Miah Abreu on 10-10-2023 Bacteria identified Cx Nom (U) [facility] Urine glucose measurement by automated test strip (mass/volume)Ordered By: Miah Abreu on 10-10-2023 Glucose Auto test strip (U) [Mass/Vol] Normal mg/dL Normal [facility] Urine hemoglobin detection b y automated test stripOrdered By: Miah Abreu on 10-10-2023 Hemoglobin Auto test strip Ql (U) Negative Negative [facility] Urine leukocyte esterase det ection by automated test stripOrdered By: Miah Abreu on 10-10-2023 Leukocyte esterase Auto test strip Ql (U) 4+ Negative [facility] Urine pH measurement by auto mated test stripOrdered By: Miah Abreu on 10-10-2023 pH (U) 5.5 [pH] Normal 5.0-9.0 [facility] Comment on above: Order Comment: Name Collection Type:: Voided Performed By: #### U RDS, ADDONUAPLUS, CUU #### [facility] [address] [place] [address] Urobilinogen Auto test strip (U) [Mass/Vol]Ordered By: Miah Abreu on 10-10-2023 Urobilinogen (U) [Mass/Vol] Normal mg/dL Normal [facility] Alanine aminotransferase [En zymatic activity/volume] in Serum or PlasmaOrdered By: Adele Hunter on 08-25-2023 ALT [Catalytic activity/Vol] 97 U/L High 7-52 [facility] Comment on above: Performed By: #### U CURLY, ADDONUAPLUS, CUU #### [facility] [address] [place] [address] Albumin [Mass/volume] in Ser um or Plasma by Bromocresol green (BCG) dye binding methoOrdered By: Adele Hunter on 08-25-2023 Albumin BCG dye [Mass/Vol] 3.6 g/dL 3.5-5.7 [facility] Alkaline phosphatase [Enzyma tic activity/volume] in Serum or PlasmaOrdered By: Adele Hunter on 08-25-2023 ALP [Catalytic activity/Vol] 58 U/L Normal 34-104 [facility] Comment on above: Result Comment: PERF ORMED BY: [place] [address] PATHOLOGIST SEAL DELIVERY VEHICLE OFFICER TODD PICKARD M.D. Performed By: #### U CURLY, ADDONUAPLUS, CUU #### [facility] [address] Aspartate aminotransferase [ Enzymatic activity/volume] in Serum or PlasmaOrdered By: Adele Hunter on 08-25-2023 AST [Catalytic activity/Vol] 94 U/L High 13-39 [facility] Comment on above: Performed By: #### U RDS, ADDONUAPLUS, CUU #### [facility] [address] [place] [address] Bilirubin.direct [Mass/volum e] in Serum or PlasmaOrdered By: Adele Schmitt on 08-25-2023 Bilirubin.direct [Mass/Vol] 0.00 mg/dL 0.03-0.18 [facility] Comment on above: If the DBIL is less than 0.1, IBIL is not able to becalculated. Bilirubin.total [Mass/volume ] in Serum or PlasmaOrdered By: Adele Hunter on 08-25-2023 Bilirubin [Mass/Vol] 0.3 mg/dL Normal 0.3-1.0 [facility] Comment on above: Performed By: #### U CURLY, ADDONUAPLUS, CUU #### [facility] [address] [place] [address] Diagnostic impression [Inter pretation] in Specimen NarrativeOrdered By: Adele Hunter on 08-25-2023 Diagnostic impression Molgen Nima (Unsp spec) [Interp] See comment . [facility] Comment on above: Positive HCV antibod y screen with the presence of HCV RNAis consistent with active infection.Performed at: - [facility] [address] [id number] Director: Rick Acevedo PhD, Phone: [phone] at: - [facility] [address] [id number] Director: Navarro Padilla MD, Phone: [phone] Hepatic Panelon 08-25-2023 Albumin [Mass/Vol] 3.6 g/dL Normal 3.5-5.7 [facility] Comment on above: Performed By: #### U CELY RAWLS, CUU #### [facility] [address] [place] [address] [place] Bilirubin,Indirect 0.3 mg/dL Normal [facility] Comment on above: Performed By: #### U CELY RAWLS, CUU #### [facility] [address] [place] [address] Bilirubin.indirect [Mass/Vol] 0.00 mg/dL Low 0.03-0.18 [facility] Comment on above: Result Comment: If t he DBIL is less than 0.1, IBIL is not able to be calculated. Performed By: #### U RDS, ADDONUAPLUS, CUU #### [facility] [address] [place] [address] Hepatitis Acute Panelon 08-04 HBsAg Screen Negative Normal Negative [facility] Comment on above: Performed By: #### U RDS, ADDONUAPLUS, CUU #### [facility] [address] [place] [address] [place] HCV Log10 6.933 Normal . [facility] Comment on above: Result Comment: Resu lt Units: log10 IU/mL Performed By: #### U RDS, ADDONUAPLUS, CUU #### [address] Hepatitis A Antibody IgM Negative Normal Negative [facility] Comment on above: Performed By: #### U RDS, ADDONUAPLUS, CUU #### [address] Hepatitis B Core Antibody IgM Negative Normal Negative [facility] Comment on above: Performed By: #### U RDS, ADDONUAPLUS, CUU #### [address] Hepatitis C Quantitation [id number] Normal . [facility] Comment on above: Performed By: #### U RDS, ADDONUAPLUS, CUU #### [address] Hepatitis C Virus Antibody Reactive Critically abnormal Non Reactive [facility] Comment on above: Performed By: #### U RDS, ADDONUAPLUS, CUU #### [address] Interpretation Normal . [facility] Comment on above: Result Comment: Posi tive HCV antibody screen with the presence of HCV RNA is consistent with active infection. Performed at: - [facility] [id number] Director Sterile Processing: Rick Acevedo PhD, Phone: [phone] Performed at: - [facility] [id number] Director Sterile Processing: Navarro Padilla MD, Phone: [phone] PERFORMED BY: [place] [address] PATHOLOGIST SEAL DELIVERY VEHICLE OFFICER TODD PICKARD M.D. Performed By: #### U CELY RAWLS, CUU #### [facility] [address] [place] [address] Test Information: Normal . [facility] Comment on above: Result Comment: The quantitative range of this assay is 15 IU/mL to 100 million IU/mL. Performed By: #### U CURLY, CELY, CUU #### [address] Hepatitis B virus surface Ag [Presence] in Serum or Plasma by ImmunoassayOrdered By: Adele Hunter on 08-25-2023 HBV surface Ag IA Ql Negative Negative [facility] Hepatitis C virus IgG Ab [Pr esence] in Serum or Plasma by ImmunoassayOrdered By: Adele Hunter on 08-25-2023 HCV IgG IA Ql Reactive Non Reactive [facility] Hepatitis C virus RNA [log u nits/volume] (viral load) in Serum or Plasma by TISHA withOrdered By: Adele Hunter on 08-25-2023 HCV RNA TISHA+probe [Log units/Vol] [id number] [IU]/mL . [facility] HCV RNA TISHA+probe [Log units/Vol] 6.933 . [facility] Comment on above: Result Units: log10 IU/mL No Panel InformationOrdered By: Adele Hunter on 08-25-2023 Hepatitis A IgM Antibody Negative Negative [facility] Hepatitis B Core IgM Antibody Negative Negative [facility] Hepatitis C RNA Qnt (PCR) Test Info See comment . [facility] Comment on above: The quantitative ran ge of this assay is 15 IU/mL to 100million IU/mL. Protein [Mass/volume] in Ser um or PlasmaOrdered By: Adele Hunter on 08-25-2023 Protein [Mass/Vol] 6.1 g/dL Low 6.4-8.9 [facility] Comment on above: Performed By: #### U RDS, ADDONUAPLUS, CUU #### [facility] [address] Serum globulin measurement b y calculation (mass/volume)Ordered By: Adele Hunter on 08-25-2023 Globulin (S) [Mass/Vol] 2.5 g/dL Normal [facility] Comment on above: Performed By: #### U CURLY, ADDONUAPLUS, CUU #### [address] Serum or plasma albumin/glob ulin mass ratioOrdered By: Adele Hunter on 08-25-2023 Albumin/Globulin [Mass ratio] 1.4 {ratio} Normal [facility] Comment on above: Performed By: #### U CURLY, ADDONUAPLUS, CUU #### [address] Serum or plasma non-glucuron idated bilirubin measurement (mass/volume)Ordered By: Adele Hunter on 08-25-2023 Bilirubin.indirect [Mass/Vol] 0.3 mg/dL [facility] C reactive protein [Mass/vol ume] in Serum or PlasmaOrdered By: Olvin Rollins on 08-24-2023 CRP [Mass/Vol] 0.5 mg/dL 0.0-0.5 [facility] C-Reactive Proteinon 023 C-Reactive Protein 0.5 mg/dL Normal 0.0-0.5 [facility] Comment on above: Performed By: #### U CURLY, ADDONUAPLUS, CUU #### [address] Cholesterol [Mass/volume] in Serum or PlasmaOrdered By: Olvin Rollins on 08-24-2023 Cholesterol [Mass/Vol] 95 mg/dL Low 140-200 [facility] Comment on above: Chol less than 200 m g/dl low riskChol 201-239 mg/dl borderline riskChol 240 mg/dl and greater high risk Result Comment: Chol less than 200 mg/dl low risk Chol 201-239 mg/dl borderline risk Chol 240 mg/dl and greater high risk Performed By: #### C HOL, [id number] #### [facility] [address] [place] [address] [place] Performed By: #### U RDS, ADDCLOVER, CUU #### [facility] [address] [place] [address] [place] Cholesterol in LDL Calc [Mas s/Vol]Ordered By: Olvin Rollins on 08-24-2023 Cholesterol in LDL [Mass/Vol] 39 mg/dL 0-100 [facility] Comment on above: LDL ATP III CLASSIFI CATIONLDL less than 100 mg/dL OptimalLDL 100-129 mg/dL Near or above optimalLDL 130-159 mg/dL Borderline highLDL 160-189 mg/dL HighLDL greater than 189 mg/dL Very high Cholesterol in VLDL Calc [Ma ss/Vol]Ordered By: Olvin Rollins on 08-24-2023 Cholesterol in VLDL [Mass/Vol] 17 mg/dL [facility] ECG 12 lead ECGon 08-24-2023 ECG 12 lead ECG [facility] [address] [place] [address] Electrocardiograph Report Signed Patient: Loyda Scott MR#: [id number] : 1975 Acct:[id number] Age/Sex: 48 / F ADM Date: 08/23/23 Loc: Room: [address] [place] [address] Type: ADM IN Attending Dr: Olvin Rollins [...] Efrain Frye DO 08/24 1804 Normal [facility] Erythrocyte Sedimentation Ra jordy 08-24-2023 ESR (Bld) [Velocity] 16 mm/h Normal 0-29 [facility] Comment on above: Order Comment: Comme nt ok to use previously drawn specimen Result Comment: PERF ORMED BY: [place] [address] PATHOLOGIST SEAL DELIVERY VEHICLE OFFICER TODD PICKARD M.D. Performed By: #### E SR #### [address] Erythrocyte sedimentation ra te by Photometric methodOrdered By: Adele Schmitt on 08-24-2023 ESR Photometric method (Bld) [Velocity] 16 mm/hr 0-29 [facility] Lipid Panelon 08-24-2023 LDL Cholesterol,Calculated 39 mg/dL Normal 0-100 [facility] Comment on above: Result Comment: LDL ATP III CLASSIFICATION LDL less than 100 mg/dL Optimal LDL 100-129 mg/dL Near or above optimal LDL 130-159 mg/dL Borderline high LDL 160-189 mg/dL High LDL greater than 189 mg/dL Very high Performed By: #### C HOL, [id number] #### [address] Performed By: #### U RDSCELY CUU #### [address] Triglyceride w/Reflex 85 mg/dL Normal 0-149 [facility] Comment on above: Result Comment: TRIG ATP III CLASSIFICATION TRIG less than 150 mg/dL Normal TRIG 150-199 mg/dL Borderline high TRIG 200-500 mg/dL High TRIG greater than 500 mg/dL Very high Standard traceable to the Center for Disease Conrtrol and Prevention (CDC) test method. Performed By: #### C HOL, [id number] #### [place] [address] [place] Performed By: #### U RDS, ADDONUAPLUS, CUU #### [facility] [address] [place] [address] VLDL CHOLESTEROL 17 mg/dL Normal [facility] Comment on above: Performed By: #### C HOL, [id number] #### [address] Performed By: #### U CURLY, ADDONUAPLUS, CUU #### [address] Serum or plasma high density lipoprotein (HDL) cholesterol measurementOrdered By: Olvin Rollins on 08-24-2023 Cholesterol in HDL [Mass/Vol] 39 mg/dL Normal 23 [facility] Comment on above: HDL CHOL ATP-III CLA SSIFICATION Cardiovascular RiskHDL > or equal to 60 mg/dL LOWHDL < 40 mg/dL HIGH Result Comment: HDL CHOL ATP-III CLASSIFICATION Cardiovascular Risk HDL > or equal to 60 mg/dL LOW HDL < 40 mg/dL HIGH Performed By: #### C HOL, [id number] #### [address] Performed By: #### U CURLY ADDONUAPLUS, CUU #### [address] Serum or plasma total choles terol/high density lipoprotein (HDL) cholesterol mass ratOrdered By: Olvin Rollins on 08-24-2023 Cholesterol.total/Rachel sterol in HDL [Mass ratio] 2.4 {ratio} Normal <5.0 [facility] Comment on above: Performed By: #### C HOL, [id number] #### [facility] [address] [place] [address] Performed By: #### U CURLY, ADDONUAPLUS, CUU #### [address] Thyroid Stim Hormone w/Rflxo n 08-24-2023 Thyroid Stim Hormone w/Rflx 1.54 u[iU]/mL Normal 0.45-5.33 [facility] Comment on above: Performed By: #### C HOL, [id number] #### [facility] [address] Performed By: #### U CELY RAWLS CUU #### [facility] [address] Thyrotropin [Units/volume] i n Serum or PlasmaOrdered By: Olvin Rollins on 08-24-2023 TSH Qn 1.54 m[IU]/L 0.45-5.33 [facility] Triglyceride [Mass/volume] i n Serum or PlasmaOrdered By: Olvin Rollins on 08-24-2023 Triglyceride [Mass/Vol] 85 mg/dL 0-149 [facility] Comment on above: TRIG ATP III CLASSIF ICATIONTRIG less than 150 mg/dL NormalTRIG 150-199 mg/dL Borderline highTRIG 200-500 mg/dL High TRIG greater than 500 mg/dL Very highStandard traceable to the Center for Disease Conrtrol and Prevention (CDC) test method. Urate [Mass/volume] in Serum or PlasmaOrdered By: Olvin Rollins on 08-24-2023 Urate [Mass/Vol] 4.1 mg/dL Normal 2.3-6.6 [facility] Comment on above: Performed By: #### C HOL, [id number] #### [address] Vitamin D 25 Hydroxy Totalon 08-24-2023 Vitamin D 25 Hydroxy Total 34.0 ng/mL Normal 30-100 [facility] Comment on above: Result Comment: MARINA MIN D STATUS 25(OH)VITAMIN D RANGE (ng/mL) Deficient <20 Insufficient 20 to <30 Sufficient 30 to 100 Reference: Roqeu MF,Jhony NC, Janina LAYTON, et al. Evaluation,treatment, and prevention of vitamin D deficiency; an Endocrine Society clinical practice guideline. JCEM. 2010; 96(7):1911-30. PERFORMED BY: [place] [address] PATHOLOGIST SEAL DELIVERY VEHICLE OFFICER TODD PICKARD M.D. Performed By: #### C HOL, [id number] #### [facility] [address] Performed By: #### U RDS, ADDONUAPLUS, CUU #### [facility] [address] Vitamin D+Metabolites [Mass/ volume] in Serum or PlasmaOrdered By: Olvin Rollins on 08-24-2023 Vitamin D+Metabolites [Mass/Vol] 34.0 ng/mL 30-100 [facility] Comment on above: VITAMIN D STATUS 25( [place])VITAMIN D RANGE (ng/mL) Deficient <20 Insufficient 20 to <30Sufficient 30 to 100Reference: Roque MF,Jhony MEDINA, Janina LAYTON, et al. Evaluation,treatment, and prevention of vitamin D deficiency; an Endocrine Society clinical practice guideline. JCEM. 2010; 96(7):1911-30. Basophils Auto (Bld) [#/Vol] Ordered By: Jesus Callahan on 04-26-2023 Basophils (Bld) [#/Vol] 0.0 10*3/uL 0.0-0.2 [facility] Basophils/100 WBC Auto (Bld) Ordered By: Jeuss Callahan on 04-26-2023 Basophils/100 WBC (Bld) 1.2 % . [facility] Eosinophils Auto (Bld) [#/Vo l]Ordered By: Jesus Callahan on 04-26-2023 Eosinophils (Bld) [#/Vol] 0.1 10*3/uL 0.0-0.45 [facility] Eosinophils/100 WBC Auto (Bl d)Ordered By: Jesus Callahan on 04-26-2023 Eosinophils/100 WBC (Bld) 3.2 % . [facility] Erythrocyte distribution wid th Auto (RBC) [Ratio]Ordered By: Jesus Callahan on 04-26-2023 Erythrocyte distribution width (RBC) [Ratio] 12.1 % 11.9-15.3 [facility] Hematocrit Auto (Bld) [Volum e fraction]Ordered By: Jesus Callahan on 04-26-2023 Hematocrit (Bld) [Volume fraction] 34.0 % 34.0-46.4 [facility] Hemoglobin [Mass/volume] in BloodOrdered By: Jesus Callahan on 04-26-2023 Hemoglobin (Bld) [Mass/Vol] 11.5 g/dL 11.8-15.4 [facility] Leukocytes [#/volume] correc vargas for nucleated erythrocytes in Blood by Automated counOrdered By: Jesus Callahan on 04-26-2023 WBC corrected for nucl RBC Auto (Bld) [#/Vol] 3.8 10*3/uL 3.8-11.6 [facility] Lymphocytes Auto (Bld) [#/Vo l]Ordered By: Jesus Callahan on 04-26-2023 Lymphocytes (Bld) [#/Vol] 1.3 10*3/uL 1.00-4.8 [facility] Lymphocytes/100 WBC Auto (Bl d)Ordered By: Jesus Callahan on 04-26-2023 Lymphocytes/100 WBC (Bld) 33.3 % . [facility] MCH Auto (RBC) [Entitic mass ]Ordered By: Jesus Callahan on 04-26-2023 MCH (RBC) [Entitic mass] 33.1 pg 24.7-34.3 [facility] MCHC Auto (RBC) [Mass/Vol]Or dered By: Jesus Callahan on 04-26-2023 MCHC (RBC) [Mass/Vol] 33.9 g/dL 32.0-35.0 [facility] MCV Auto (RBC) [Entitic vol] Ordered By: Jesus Callahan on 04-26-2023 MCV (RBC) [Entitic vol] 97.5 fL 80-100 [facility] Monocytes Auto (Bld) [#/Vol] Ordered By: Jesus Callahan on 04-26-2023 Monocytes (Bld) [#/Vol] 0.3 10*3/uL 0.0-0.8 [facility] Monocytes/100 WBC Auto (Bld) Ordered By: Jesus Callahan on 04-26-2023 Monocytes/100 WBC (Bld) 8.2 % . [facility] Neutrophils Auto (Bld) [#/Vo l]Ordered By: Jesus Callahan on 04-26-2023 Neutrophils (Bld) [#/Vol] 2.1 10*3/uL 1.8-7.7 [facility] Neutrophils/100 WBC Auto (Bl d)Ordered By: Jesus Callahan on 04-26-2023 Neutrophils/100 WBC (Bld) 54.1 % . [facility] Nucleated erythrocytes [Pres ence] in Blood by Automated countOrdered By: Jesus Callahan on 04-26-2023 Nucleated RBC Auto Ql (Bld) 0.2 /100{WBC} 0-0.5 [facility] Platelet mean volume Auto (B ld) [Entitic vol]Ordered By: Jesus Callahan on 04-26-2023 Platelet mean volume (Bld) [Entitic vol] 8.4 fL 6.3-10.7 [facility] Platelets Auto (Bld) [#/Vol] Ordered By: Jesus Callahan on 04-26-2023 Platelets (Bld) [#/Vol] 231 10*3/uL 150-450 [facility] RBC Auto (Bld) [#/Vol]Ordere d By: Jesus Callahan on 04-26-2023 RBC (Bld) [#/Vol] 3.49 10*6/uL 3.60-5.00 [facility] WBC Auto (Bld) [#/Vol]Ordere d By: Jesus Callahan on 04-26-2023 WBC (Bld) [#/Vol] 3.8 10*3/uL 3.8-11.6 [facility] Calcium [Mass/volume] in Ser um or PlasmaOrdered By: Adele Gorman on 04-24-2023 Calcium [Mass/Vol] 7.9 mg/dL 8.6-10.3 [facility] Carbon dioxide, total [Moles /volume] in Serum or PlasmaOrdered By: Adele Gorman on 04-24-2023 CO2 [Moles/Vol] 28.9 mmol/L 21.0-31.0 [facility] Chloride [Moles/volume] in S kennedi or PlasmaOrdered By: Adele Gorman on 04-24-2023 Chloride [Moles/Vol] 108 mmol/L 98-107 [facility] Creatinine [Mass/volume] in Serum or PlasmaOrdered By: Adele Gorman on 04-24-2023 Creatinine [Mass/Vol] 0.95 mg/dL 0.60-1.20 [facility] Glucose [Mass/volume] in Ser um or PlasmaOrdered By: Adele Gorman on 04-24-2023 Glucose [Mass/Vol] 94 mg/dL 70-100 [facility] Comment on above: ADA recommended refe rence rangeRandom Glucose Reference Range is dependent on time and content of last meal. Glucose of more than 200 mg/dL in a nonstressed, ambulatory subject supports the diagnosis of Diabetes Mellitus. No Panel InformationOrdered By: Adele Gorman on 04-24-2023 Estimated GFR (CKD-EPI) > 60.0 mL/Min [facility] Creatinine Clearance (Chem 72.98 [facility] Potassium [Moles/volume] in Serum or PlasmaOrdered By: Adele Gorman on 04-24-2023 Potassium [Moles/Vol] 4.2 mmol/L 3.5-5.1 [facility] Serum or plasma anion gap de terminationOrdered By: Adele Gorman on 04-24-2023 Anion gap [Moles/Vol] 7.3 mmol/L 6.0-15.0 [facility] Sodium [Moles/volume] in Ser um or PlasmaOrdered By: Adele Gorman on 04-24-2023 Sodium [Moles/Vol] 140 mmol/L 136-145 [facility] Urea nitrogen [Mass/volume] in Serum or PlasmaOrdered By: Adele Gorman on 04-24-2023 Urea nitrogen [Mass/Vol] 14 mg/dL 7-25 [facility] Bacteria identified Aer cx N om (Unsp spec)Ordered By: Adele Gorman on 04-23-2023 Superficial Wound Culture Methicillin Resis Staph Aureus [facility] Cholesterol [Mass/volume] in Serum or PlasmaOrdered By: Miah Abreu on 04-15-2023 Cholesterol [Mass/Vol] 136 mg/dL 140-200 [facility] Comment on above: Chol less than 200 m g/dl low riskChol 201-239 mg/dl borderline riskChol 240 mg/dl and greater high risk Cholesterol in LDL Calc [Mas s/Vol]Ordered By: Miah Abreu on 04-15-2023 Cholesterol in LDL [Mass/Vol] 69 mg/dL 0-100 [facility] Comment on above: LDL ATP III CLASSIFI CATIONLDL less than 100 mg/dL OptimalLDL 100-129 mg/dL Near or above optimalLDL 130-159 mg/dL Borderline highLDL 160-189 mg/dL HighLDL greater than 189 mg/dL Very high Cholesterol in VLDL Calc [Ma ss/Vol]Ordered By: Miah Abreu on 04-15-2023 Cholesterol in VLDL [Mass/Vol] 24 mg/dL [facility] Serum or plasma high density lipoprotein (HDL) cholesterol measurementOrdered By: Miah Abreu on 04-15-2023 Cholesterol in HDL [Mass/Vol] 43 mg/dL 23-92 [facility] Comment on above: HDL CHOL ATP-III CLA SSIFICATION Cardiovascular RiskHDL > or equal to 60 mg/dL LOWHDL < 40 mg/dL HIGH Serum or plasma total choles terol/high density lipoprotein (HDL) cholesterol mass ratOrdered By: Miah Abreu on 04-15-2023 Cholesterol.total/Rachel sterol in HDL [Mass ratio] 3.2 {ratio} <5.0 [facility] Thyrotropin [Units/volume] i n Serum or PlasmaOrdered By: Miah Abreu on 04-15-2023 TSH Qn 1.98 m[IU]/L 0.45-5.33 [facility] Triglyceride [Mass/volume] i n Serum or PlasmaOrdered By: Miah Abreu on 04-15-2023 Triglyceride [Mass/Vol] 122 mg/dL 0-149 [facility] Comment on above: TRIG ATP III CLASSIF ICATIONTRIG less than 150 mg/dL NormalTRIG 150-199 mg/dL Borderline highTRIG 200-500 mg/dL High TRIG greater than 500 mg/dL Very highStandard traceable to the Center for Disease Conrtrol and Prevention (CDC) test method. Vitamin D+Metabolites [Mass/ volume] in Serum or PlasmaOrdered By: Miah Abreu on 04-15-2023 Vitamin D+Metabolites [Mass/Vol] 44.6 ng/mL 30-100 [facility] Comment on above: VITAMIN D STATUS 25( [place])VITAMIN D RANGE (ng/mL) Deficient <20 Insufficient 20 to <30Sufficient 30 to 100Reference: oRque MF,Jhnoy MEDINA, Janina LAYTON, et al. Evaluation,treatment, and prevention of vitamin D deficiency; an Endocrine Society clinical practice guideline. JCEM. 2010; 96(7):1911-30. CBC AUTO DIFFon 09-07-2022 BASO # 0.0 103/ul Normal 0.0-0.1 [facility] Comment on above: Performed By: #### E TH, SONIA ACET, CMP #### [facility] [address] [address] [address] Erlinda Rivera Basophils/100 WBC (Bld) 0.3 % Normal 0.2-2.0 [facility] Comment on above: Performed By: #### E TH, SALYC, ACET, CMP #### [facility] [address] [address] [address] Erlinda Rivera EO # 0.3 103/ul Normal 0.0-0.7 [facility] Comment on above: Performed By: #### E TH, SALYC, ACET, CMP #### [facility] [address] [address] [address] Erlinda Rivera Eosinophils/100 WBC (Bld) 3.7 % Normal 0.9-7.0 [facility] Comment on above: Performed By: #### E TH, SALYC, ACET, CMP #### [facility] [address] [address] [address] Erlinda Rivera Erythrocyte distribution width (RBC) [Ratio] 12.5 % Normal 11.0-15.0 [facility] Comment on above: Performed By: #### E TH, SALYC, ACET, CMP #### [facility] [address] [place] [address] Dr. Erlinda Rivera Hematocrit (Bld) [Volume fraction] 37.5 % Normal 36.0-48.0 [facility] Comment on above: Performed By: #### E TH, SALYC, ACET, CMP #### [facility] [address] [place] [address] Dr. Erlinda Rivera Hemoglobin (Bld) [Mass/Vol] 12.8 g/dL Normal 12.0-16.0 [facility] Comment on above: Performed By: #### E TH, SALYC, ACET, CMP #### [facility] [address] [place] [address] Dr. Erlinda Rivera IG # 0.02 10e3/ul Normal 0.00-0.03 [facility] Comment on above: Performed By: #### E TH, SALYC, ACET, CMP #### [facility] [address] [place] [address] Dr. Erlinda Rivera IG % 0.3 % Normal 0.0-0.5 [facility] Comment on above: Performed By: #### E TH, SALYC, ACET, CMP #### [facility] [address] [place] [address] Dr. Erlinda Rivera LYMPH # 2.0 103/ul Normal 1.2-3.[address] [facility] Comment on above: Performed By: #### E TH, SALYC, ACET, CMP #### [facility] [address] [place] [address] Dr. Erlinda Rivera Lymphocytes/100 WBC (Bld) 28.8 % Normal 20.5-60.0 [facility] Comment on above: Performed By: #### E TH, SALYC, ACET, CMP #### [facility] [address] [place] [address] Dr. Erlinda Rivera MANUAL DIFF REQ NO Normal [facility] Comment on above: Performed By: #### E TH, SALYC, ACET, CMP #### [facility] [address] [place] [address] Dr. Erlinda Rivera MCH (RBC) [Entitic mass] 33.2 pg Normal 26.7-34.0 [facility] Comment on above: Performed By: #### E TH, SALYC, ACET, CMP #### [facility] [address] [place] [address] Dr. Erlinda Rivera MCHC (RBC) [Mass/Vol] 34.1 g/dL Normal 29.9-35.2 [facility] Comment on above: Performed By: #### E TH, SALYC, ACET, CMP #### [facility] [address] [place] [address] Dr. Erlinda Rivera MCV (RBC) [Entitic vol] 97.2 fL Normal 81.0-99.0 [facility] Comment on above: Performed By: #### E TH, SALYC, ACET, CMP #### [facility] [address] [place] [address] Dr. Erlinda Rivera MONO # 0.6 103/ul Normal 0.3-0.8 [facility] Comment on above: Performed By: #### E TH, SALYC, ACET, CMP #### [facility] [address] [place] [address] Dr. Erlinda Rivera Monocytes/100 WBC (Bld) 7.8 % Normal 1.7-12.0 [facility] Comment on above: Performed By: #### E TH, SALYC, ACET, CMP #### [facility] [address] [place] [address] Dr. Erlinda Rivera NEUT # 4.2 103/ul Normal 1.4-6.5 [facility] Comment on above: Performed By: #### E TH, SALYC, ACET, CMP #### [facility] [address] [place] [address] Dr. Erlinda Rivera Neutrophils/100 WBC (Bld) 59.1 % Normal 43.0-75.0 [facility] Comment on above: Performed By: #### E TH, SALYC, ACET, CMP #### [facility] [address] [place] [address] Dr. Erlinda Rivera Platelet mean volume (Bld) [Entitic vol] 10.2 fL Normal 9.5-13.5 [facility] Comment on above: Performed By: #### E TH, SALYC, ACET, CMP #### [facility] [address] [place] [address] Dr. Erlinda Rivera PLT 270 103/ul Normal 150-[address] [facility] Comment on above: Performed By: #### E TH, SALYC, ACET, CMP #### [facility] [address] [place], [place] [address] Dr. Erlinda Rivera RBC 3.86 106/ul Critically low 4.20-5.40 [facility] Comment on above: Performed By: #### E TH, SALYC, ACET, CMP #### [facility] [address] [place], [place] [address] Dr. Erlinda Rivera WBC 7.0 103/ul Normal 4.0-11.0 [facility] Comment on above: Performed By: #### E TH, SALYC, ACET, CMP #### [facility] [address] [place], [place] [address] ABD/PELVIS WO CONon [...] Tressa BROWN Date: 2022-09-07 17:[address] [facility] CULTURE URINEon 09-07-2022 CULTURE URINE Culture Observations : NO GROWTH. Normal [facility] Comment on above: Performed By: #### C VDTB #### [facility] [address] [place] [address] Dr. Erlinda Rivera ER URINE PROFILEon 2 Bilirubin Ql (U) Negative Normal NEGATIVE [facility] Comment on above: Performed By: #### Sakina DE PAZ UMICRO #### [facility] [address] [place] [address] Dr. Erlinda Rivera Clarity (U) CLEAR Normal CLEAR [facility] Comment on above: Performed By: #### ESTHER SOTELOICRO #### [facility] [address] [place] [address] Dr. Erlinda Rivera Color (U) LT. YELLOW Normal YELLOW [facility] Comment on above: Performed By: #### ESTHER SOTELOICRO #### [facility] [address] [place] [address] Dr. Erlinda ALFONSO A micrscopic examination will be performed if indicated. Normal [facility] Comment on above: Performed By: #### ESTHER SOTELOICRO #### [facility] [address] [place] [address] Dr. Erlinda Rivera Glucose Ql (U) Negative Normal NEGATIVE [facility] Comment on above: Performed By: #### ESTHER SOTELOICRO #### [facility] [address] [place] [address] Dr. Erlinda Rivera Hemoglobin Ql (U) Negative Normal NEGATIVE [facility] Comment on above: Performed By: #### Sakina DE PAZ UMICRO #### [facility] [address] [place] [address] Dr. Erlinda Rivera Ketones Ql (U) Negative Normal NEGATIVE [facility] Comment on above: Performed By: #### Sakina DE PAZ UMICRO #### [facility] [address] [place] [address] Dr. Erlinda Rivera LEUKOCYTES MODERATE Abnormal NEGATIVE [facility] Comment on above: Performed By: #### Sakina DE PAZ, UMICRO #### [facility] [address] [place] [address] Dr. Erlinda Rivera Nitrite Ql (U) Negative Normal NEGATIVE [facility] Comment on above: Performed By: #### Sakina DE PAZ, UMICRO #### [facility] [address] [place] [address] Dr. Erlinda Rivera pH (U) 6.0 [pH] Normal 5-9 [facility] Comment on above: Performed By: #### Sakina DE PAZ, UMICRO #### [facility] [address] [place] [address] Dr. Erlinda Rivera SPEC GRAVITY 1.025 Normal 1.005-<=1.025 [facility] Comment on above: Performed By: #### Sakina DE PAZ, UMICRO #### [facility] [address] [place] [address] Dr. Erlinda Rivera UA PROTEIN Negative Normal NEGATIVE/ TRACE [facility] Comment on above: Performed By: #### Sakina DE PAZ UMICRO #### [facility] [address] [place] [address] Dr. Erlinda Rivera UR MICRO IND INDICATED Normal [facility] Comment on above: Performed By: #### Sakina DE PAZ UMICRO #### [facility] [address] [place] [address] Dr. Erlinda Rivera Urobilinogen Qn (U) 0.2 {Shannan'U}/dL Normal 0.2 - 1. 0 [facility] Comment on above: Performed By: #### Sakina DE PAZ, UMICRO #### [facility] [address] [place] [address] Dr. Erlinda Rivera LIPASEon 09-07-2022 Lipase [Catalytic activity/Vol] 173.0 U/L Normal 73.0-393.0 [facility] Comment on above: Performed By: #### E TH, SALYC, ACET, CMP #### [facility] [address] [place] [address] Dr. Erlinda Rivera PREG HCG QUALon 09-07-2022 , QUAL Negative Normal NEGATIVE [facility] Comment on above: Performed By: #### E TH, SALYC, ACET, CMP #### [facility] [address] [place] [address] Dr. Erlinda Rivera PROF 14(COMP METB)on 022 Albumin [Mass/Vol] 3.8 g/dL Normal 3.4-5.0 [facility] Comment on above: Performed By: #### E TH, SALYC, ACET, CMP #### [facility] [address] [place] [address] Dr. Erlinda Rivera Albumin/Globulin [Mass ratio] 0.9 {ratio} Normal [facility] Comment on above: Performed By: #### E TH, SALYC, ACET, CMP #### [facility] [address] [place] [address] Dr. Erlinda Rivera ALP [Catalytic activity/Vol] 75 U/L Normal 46-[address] [facility] Comment on above: Performed By: #### E TH, SALYC, ACET, CMP #### [facility] [address] [place] [address] Dr. Erlinda Rivera ALT [Catalytic activity/Vol] 10 U/L Critically low 14-[address] [facility] Comment on above: Performed By: #### E , SALYC, ACET, CMP #### [facility] [address] [place] [address] Dr. Erlinda Rivera Anion gap [Moles/Vol] 9.7 mmol/L Normal [facility] Comment on above: Performed By: #### E TH, SALYC, ACET, CMP #### [facility] [address] [place] [address] Dr. Erlinda Rivera AST [Catalytic activity/Vol] 21 U/L Normal 15-[address] [facility] Comment on above: Performed By: #### E TH, SALYC, ACET, CMP #### [facility] [address] [place] [address] Dr. Erlinda Rivera Bilirubin [Mass/Vol] 0.4 mg/dL Normal 0.2-1.[address] [facility] Comment on above: Performed By: #### E TH, SALYC, ACET, CMP #### [facility] [address] [address] [address] Erlinda Rivera Calcium [Mass/Vol] 8.8 mg/dL Normal 8.5-10.1 [facility] Comment on above: Performed By: #### E TH, SALYC, ACET, CMP #### [facility] [address] [place] [address] Dr. Erlinda Rivera Chloride [Moles/Vol] 103 mmol/L Normal 98-107 [facility] Comment on above: Performed By: #### E TH, SALYC, ACET, CMP #### [facility] [address] [place] [address] Dr. Erlinda Rivera CO2 [Moles/Vol] 28.8 mmol/L Normal 21.0-32.0 [facility] Comment on above: Performed By: #### E TH, SALYC, ACET, CMP #### [facility] [address] [place] [address] Dr. Erlinda Rivera Creatinine [Mass/Vol] 0.86 mg/dL Normal 0.55-1.02 [facility] Comment on above: Performed By: #### E TH, SALYC, ACET, CMP #### [facility] [address] [place] [address] Dr. Erlinda Rivera EGFR-AF [place]I >60 Normal >=60 [facility] Comment on above: Performed By: #### E TH, SALYC, ACET, CMP #### [facility] [address] [place] [address] Dr. Erlinda Rivera EGFR-NON AF [place] >60 Normal >=60 [facility] Comment on above: Performed By: #### E TH, SALYC, ACET, CMP #### [facility] [address] [place] [address] Dr. Erlinda Rivera Globulin (S) [Mass/Vol] 4.1 g/dL Normal [facility] Comment on above: Performed By: #### E TH, SALYC, ACET, CMP #### [facility] [address] [place] [address] Dr. Erlinda Rivera Glucose [Mass/Vol] 79 mg/dL Normal 74-[address] [facility] Comment on above: Performed By: #### E TH, SALYC, ACET, CMP #### [facility] [address] [place] [address] Dr. Erlinda Rivera Potassium [Moles/Vol] 4.5 mmol/L Normal 3.5-5.[address] [facility] Comment on above: Performed By: #### E TH, SALYC, ACET, CMP #### [facility] [address] [place] [address] Dr. Erlinda Rivera Protein [Mass/Vol] 7.9 g/dL Normal 6.4-8.[address] [facility] Comment on above: Performed By: #### E TH, SALYC, ACET, CMP #### [facility] [address] [place] [address] Dr. Erlinda Rivera Sodium [Moles/Vol] 137 mmol/L Normal 136-[address] [facility] Comment on above: Performed By: #### E TH, SALYC ACET, CMP #### [facility] [address] [place] [address] Dr. Erlinda Rivera Urea nitrogen [Mass/Vol] 12.0 mg/dL Normal 7.0-18.[address] [facility] Comment on above: Performed By: #### E TH, SALYC ACET, CMP #### [facility] [address] [place] [address] Dr. Erlinda Rivera Urea nitrogen/Creatinine [Mass ratio] 14.0 mg/mg Normal [facility] Comment on above: Performed By: #### E TH, SALYC, ACET, CMP #### [facility] [address] [place] [address] Dr. Erlinda Rivera URINE MICROSCOPIC ONLYon BACTERIA SMALL Abnormal NONE SEEN [facility] Comment on above: Performed By: #### GHASSAN SOTELO #### [facility] [address] [place] [address] Dr. Erlinda Rivera Bacteria identified Cx Nom (U) INDICATED Normal [facility] Comment on above: Performed By: #### SEBASTIÁN SOTELORO #### [facility] [address] [place] [address] Dr. Erlinda Rivera CAST NONE SEEN Normal NONE SEEN [facility] Comment on above: Performed By: #### Sakina DE PAZ UMICRO #### [facility] [address] [place] [address] Dr. Erlinda Rivera Crystals LM Nom (Urine sed) NONE SEEN Normal NONE SEEN [facility] Comment on above: Performed By: #### Sakina DE PAZ UMICRO #### [facility] [address] [place] [address] Dr. Erlinda Rivera Epithelial cells LM Ql (Urine sed) MODERATE Abnormal NONE SEEN /RARE [facility] Comment on above: Performed By: #### Sakina DE PAZ UMICRO #### [facility] [address] [place] [address] Dr. Erlinda Rivera MUCOUS SMALL Abnormal NONE SEEN [facility] Comment on above: Performed By: #### Sakina DE PAZ UMICRO #### [facility] [address] [place] [address] Dr. Erlinda Rivera RBC 2-5 Abnormal 0-[address] [facility] Comment on above: Performed By: #### Sakina DE PAZ UMICRO #### [facility] [address] [place] [address] Dr. Erlinda Rivera WBC 10-20 Abnormal NONE SEEN [facility] Comment on above: Performed By: #### Sakina DE PAZ, UMICRO #### [facility] [address] [place] [address] Dr. Erlinda Rivera Bilirubin Test strip Ql (U)O rdered By: Olvin Rollins on 08-31-2022 Bilirubin Ql (U) Negative Negative [facility] Color Auto (U)Ordered By: Ab filiberto Rollins on 08-31-2022 Color (U) Yellow Yellow [facility] Ketones Auto test strip (U) [Mass/Vol]Ordered By: Olvin Rollins on 08-31-2022 Ketones (U) [Mass/Vol] Negative Negative [facility] Nitrite Test strip Ql (U)Ord ered By: Olvin Rollins on 08-31-2022 Nitrite Ql (U) Negative Negative [facility] Protein Auto test strip (U) [Mass/Vol]Ordered By: Olvin Rollins on 08-31-2022 Protein (U) [Mass/Vol] Negative Negative [facility] Specific gravity Auto test s trip (U) [Rel density]Ordered By: Olvin Rollins on 08-31-2022 Specific gravity (U) [Rel density] 1.006 1.001-1.030 [facility] Urine clarity by refractomet ry automatedOrdered By: Olvin Rollins on 08-31-2022 Clarity Refractometry automated (U) Clear Clear [facility] Urine glucose measurement by automated test strip (mass/volume)Ordered By: Olvin Rollins on 08-31-2022 Glucose Auto test strip (U) [Mass/Vol] Normal mg/dL Normal [facility] Urine hemoglobin detection b y automated test stripOrdered By: Olvin Rollins on 08-31-2022 Hemoglobin Auto test strip Ql (U) Negative Negative [facility] Urine leukocyte esterase det ection by automated test stripOrdered By: Olvin Rollins on 08-31-2022 Leukocyte esterase Auto test strip Ql (U) Negative Negative [facility] Urobilinogen Auto test strip (U) [Mass/Vol]Ordered By: Olvin Rollins on 08-31-2022 Urobilinogen (U) [Mass/Vol] Normal mg/dL Normal [facility] pH Auto test strip (U)Ordere d By: Olvin Rollins on 08-31-2022 pH (U) 6.5 [pH] 5.0-9.0 [facility] Cholesterol [Mass/volume] in Serum or PlasmaOrdered By: Miah Abreu on 08-30-2022 Cholesterol [Mass/Vol] 153 mg/dL 140-200 [facility] Comment on above: Chol less than 200 m g/dl low riskChol 201-239 mg/dl borderline riskChol 240 mg/dl and greater high risk Cholesterol in LDL Calc [Mas s/Vol]Ordered By: Miah Abreu on 08-30-2022 Cholesterol in LDL [Mass/Vol] 82 mg/dL 0-100 [facility] Comment on above: LDL ATP III CLASSIFI CATIONLDL less than 100 mg/dL OptimalLDL 100-129 mg/dL Near or above optimalLDL 130-159 mg/dL Borderline highLDL 160-189 mg/dL HighLDL greater than 189 mg/dL Very high Cholesterol in VLDL Calc [Ma ss/Vol]Ordered By: Miah Abreu on 08-30-2022 Cholesterol in VLDL [Mass/Vol] 10 mg/dL [facility] No Panel InformationOrdered By: Miah Abreu on 08-30-2022 25-Hydroxy Vitamin D Total 40.5 ng/mL 30-100 [facility] Comment on above: VITAMIN D STATUS [...] Cholesterol in HDL [Mass/Vol] 61 mg/dL 35-85 [facility] Comment on above: HDL CHOL ATP-III CLA SSIFICATION Cardiovascular RiskHDL > or equal to 60 mg/dL LOWHDL < 40 mg/dL HIGH Serum or plasma total choles terol/high density lipoprotein (HDL) cholesterol mass ratOrdered By: Miah Abreu on 08-30-2022 Cholesterol.total/Rachel sterol in HDL [Mass ratio] 2.5 {ratio} <5.0 [facility] TSH DL <= 0.005 mIU/L QnOrde red By: Miah Abreu on 08-30-2022 TSH Qn 0.98 m[IU]/L 0.45-5.33 [facility] Triglyceride [Mass/volume] i n Serum or PlasmaOrdered By: Miah Abreu on 08-30-2022 Triglyceride [Mass/Vol] 52 mg/dL 35-149 [facility] Comment on above: TRIG ATP III CLASSIF ICATIONTRIG less than 150 mg/dL NormalTRIG 150-199 mg/dL Borderline highTRIG 200-500 mg/dL High TRIG greater than 500 mg/dL Very highStandard traceable to the Center for Disease Conrtrol and Prevention (CDC) test method. Cholesterol [Mass/volume] in Serum or PlasmaOrdered By: Miah Abreu on 06-07-2022 Cholesterol [Mass/Vol] 156 mg/dL 140-200 [facility] Comment on above: Chol less than 200 m g/dl low risk Chol 201-239 mg/dl borderline risk Chol 240 mg/dl and greater high risk Chol less than 200 m g/dl low riskChol 201-239 mg/dl borderline riskChol 240 mg/dl and greater high risk Cholesterol in LDL Calc [Mas s/Vol]Ordered By: Miah Abreu on 06-07-2022 Cholesterol in LDL [Mass/Vol] 89 mg/dL 0-100 [facility] Comment on above: LDL ATP III [...] 06-07-2022 Cholesterol in VLDL [Mass/Vol] 20 mg/dL [facility] No Panel InformationOrdered By: Miah Abreu on 06-07-2022 25-Hydroxy Vitamin D Total 62.5 ng/mL 30-100 [facility] Comment on above: VITAMIN D STATUS [...] Cholesterol in HDL [Mass/Vol] 47 mg/dL 35-85 [facility] Comment on above: HDL CHOL ATP-III [...] in HDL [Mass ratio] 3.3 {ratio} <5.0 [facility] TSH DL <= 0.005 mIU/L QnOrde red By: Miah Abreu on 06-07-2022 TSH Qn 1.54 m[IU]/L 0.45-5.33 [facility] Triglyceride [Mass/volume] i n Serum or PlasmaOrdered By: Miah Abreu on 06-07-2022 Triglyceride [Mass/Vol] 101 mg/dL 35-149 [facility] Comment on above: TRIG ATP III [...] Conrtrol and Prevention (CDC) test method. ACETAMINOPHENon 09-04-2022 Acetaminophen [Mass/Vol] ug/mL Critically low 10.0-30.0 [facility] Comment on above: Performed By: #### E TH, SALYC, ACET, CMP #### [facility] [address] [place] [address] Dr. Erlinda Rivera CBC AUTO DIFFon 06-06-2022 BASO # 0.0 103/ul Normal 0.0-0.1 [facility] Comment on above: Performed By: #### C BC #### [facility] [address] [place] [address] Dr. Erlinda Rivera Basophils/100 WBC (Bld) 0.3 % Normal 0.2-2.0 [facility] Comment on above: Performed By: #### C BC #### [facility] [address] [place] [address] Dr. Erlinda Rivera EO # 0.1 103/ul Normal 0.0-0.7 [facility] Comment on above: Performed By: #### C BC #### [facility] [address] [place] [address] Dr. Erlinda Rivera Eosinophils/100 WBC (Bld) 1.7 % Normal 0.9-7.0 [facility] Comment on above: Performed By: #### C BC #### [facility] [address] [place] [address] Dr. Erlinda Rivera Erythrocyte distribution width (RBC) [Ratio] 11.9 % Normal 11.0-15.0 [facility] Comment on above: Performed By: #### C BC #### [facility] [address] [place] [address] Dr. Erlinda Rivera Hematocrit (Bld) [Volume fraction] 37.3 % Normal 36.0-48.[address] [facility] Comment on above: Performed By: #### C BC #### [facility] [address] [place] [address] Dr. Erlinda Rivera Hemoglobin (Bld) [Mass/Vol] 12.8 g/dL Normal 12.0-16.0 [facility] Comment on above: Performed By: #### C BC #### [facility] [address] [place] [address] Dr. Erlinda Rivera IG # 0.01 10e3/ul Normal 0.00-0.03 [facility] Comment on above: Performed By: #### C BC #### [facility] [address] [place] [address] Dr. Erlinda Rivera IG % 0.2 % Normal 0.0-0.5 [facility] Comment on above: Performed By: #### C BC #### [facility] [address] [place] [address] Dr. Erlinda Rivera LYMPH # 1.5 103/ul Normal 1.2-3.8 [facility] Comment on above: Performed By: #### C BC #### [facility] [address] [place] [address] Dr. Erlinda Rivera Lymphocytes/100 WBC (Bld) 25.7 % Normal 20.5-60.0 [facility] Comment on above: Performed By: #### C BC #### [facility] [address] [place] [address] Dr. Erlinda Rivera MANUAL DIFF REQ NO Normal [facility] Comment on above: Performed By: #### C BC #### [facility] [address] [place] [address] Dr. Erlinda Rivera MCH (RBC) [Entitic mass] 33.3 pg Normal 26.7-34.0 [facility] Comment on above: Performed By: #### C BC #### [facility] [address] [place] [address] Dr. Erlinda Rivera MCHC (RBC) [Mass/Vol] 34.3 g/dL Normal 29.9-35.2 [facility] Comment on above: Performed By: #### C BC #### [facility] [address] [place] [address] Dr. Erlinda Rivera MCV (RBC) [Entitic vol] 97.1 fL Normal 81.0-99.0 [facility] Comment on above: Performed By: #### C BC #### [facility] [address] [place] [address] Dr. Erlinda Rivera MONO # 0.5 103/ul Normal 0.3-0.8 [facility] Comment on above: Performed By: #### C BC #### [facility] [address] [place] [address] Dr. Erlinda Rivera Monocytes/100 WBC (Bld) 8.2 % Normal 1.7-12.0 [facility] Comment on above: Performed By: #### C BC #### [facility] [address] [place] [address] Dr. Erlinda Rivera NEUT # 3.7 103/ul Normal 1.4-6.5 [facility] Comment on above: Performed By: #### C BC #### [facility] [address] [place] [address] Dr. Erlinda Rivera Neutrophils/100 WBC (Bld) 63.9 % Normal 43.0-75.0 [facility] Comment on above: Performed By: #### C BC #### [facility] [address] [place] [address] Dr. Erlinda Rivera Platelet mean volume (Bld) [Entitic vol] 10.7 fL Normal 9.5-13.5 [facility] Comment on above: Performed By: #### C BC #### [facility] [address] [place] [address] Dr. Erlinda Rivera PLT 224 103/ul Normal 150-[address] [facility] Comment on above: Performed By: #### C BC #### [facility] [address] [place] [address] Dr. Erlinda Rivera RBC 3.84 106/ul Critically low 4.20-5.40 [facility] Comment on above: Performed By: #### C BC #### [facility] [address] [place] [address] Dr. Erlinda Rivera WBC 5.7 103/ul Normal 4.0-11.0 [facility] Comment on above: Performed By: #### C BC #### [facility] [address] [place] [address] Dr. Erlinda Rivera CULTURE URINEon 06-06-2022 CULTURE URINE Culture Observations : NO GROWTH. Normal [facility] Comment on above: Performed By: #### C VDTBH #### [facility] [address] [address] [address] Erlinda Rviera Covid-19 PCR ([facility])on SARS-CoV-2 (COVID-19) RNA TISHA+probe Ql (Unsp spec) Not detected Normal NOT DETECTED [facility] Comment on above: Result Comment: When [...] for this test is supported by the [employer]'s declaration that [...] used). Performed By: #### C VDTB #### [facility] [address] [place] [address] Dr. Erlinda Rivera DRUG SCREEN RAPID (URINE)on 06-06-2022 AMP Negative Normal NEGATIVE [facility] Comment on above: Performed By: #### GHASSAN SOTELO #### [facility] [address] [place] [address] Dr. Erlinda Rivera BAR Negative Normal NEGATIVE [facility] Comment on above: Performed By: #### GHASSAN SOTELO #### [facility] [address] [place] [address] Dr. Erlinda Rivera BUP Negative Normal NEGATIVE [facility] Comment on above: Performed By: #### GHASSAN SOTELO #### [facility] [address] [place] [address] Dr. Erlinda Rivera BZO Positive Abnormal NEGATIVE [facility] Comment on above: Performed By: #### Sakina DE PAZ UMICRO #### [facility] [address] [place] [address] Dr. Erlinda Rivera DOUGLAS Positive Abnormal NEGATIVE [facility] Comment on above: Performed By: #### E ZANDRA UMICRO #### [facility] [address] [place] [address] Dr. Erlinda Rivera CUT-OFFS SEE BELOW Normal [facility] Comment on above: Result Comment: AMP [...] ng/mL Performed By: #### ESTHER SOTELOICRO #### [facility] [address] [place] [address] Dr. Erlinda Rivera DRUG CUT HEADER DRUG CLASS TEST SYSTEM CUT-OFF CONCENTRATIONS ARE FOLLOWS: Normal [facility] Comment on above: Performed By: #### Sakina DE PAZ UMICRO #### [facility] [address] [place] [address] Dr. Erlinda Rivera mAMP Negative Normal NEGATIVE [facility] Comment on above: Performed By: #### Sakina DE PAZ UMICRO #### [facility] [address] [place] [address] Dr. Erlinda Rivera MTD Negative Normal NEGATIVE [facility] Comment on above: Performed By: #### Sakina DE PAZ UMICRO #### [facility] [address] [place] [address] Dr. Erlinda Rivera OPI Negative Normal NEGATIVE [facility] Comment on above: Performed By: #### E RUR, UMICRO #### [facility] [address] [place] [address] Dr. Erlinda Rivera OXY Negative Normal NEGATIVE [facility] Comment on above: Performed By: #### E RUR, UMICRO #### [facility] [address] [place] [address] Dr. Erlinda Rivera PCP Negative Normal NEGATIVE [facility] Comment on above: Performed By: #### E RUR UMICRO #### [facility] [address] [place] [address] Dr. Erlinda Rivera PPX Negative Normal NEGATIVE [facility] Comment on above: Performed By: #### E RUR, UMICRO #### [facility] [address] [place] [address] Dr. Erlinda Rivera TCA Negative Normal NEGATIVE [facility] Comment on above: Performed By: #### E ZANDRA UMICRO #### [facility] [address] [place] [address] Dr. Erlinda Rivera THC Positive Abnormal NEGATIVE [facility] Comment on above: Performed By: #### E RUBerhane UMICRO #### [facility] [address] [place] [address] Dr. Erlinda Rivera ER URINE PROFILEon 2 Bilirubin Ql (U) Negative Normal NEGATIVE [facility] Comment on above: Performed By: #### Sakina DE PAZ UMICRO #### [facility] [address] [place] [address] Dr. Erlinda Rivera Clarity (U) SL CLOUDY Abnormal CLEAR [facility] Comment on above: Performed By: #### E RUR, UMICRO #### [facility] [address] [place] [address] Dr. Erlinda Rivera Color (U) LT. YELLOW Normal YELLOW [facility] Comment on above: Performed By: #### E BETTER, UMICRO #### [facility] [address] [place] [address] Dr. Erlinda ALFONSO A micrscopic examination will be performed if indicated. Normal [facility] Comment on above: Performed By: #### E RUR, UMICRO #### [facility] [address] [place] [address] Dr. Erlinda Rivera Glucose Ql (U) Negative Normal NEGATIVE [facility] Comment on above: Performed By: #### Sakina DE PAZ UMICRO #### [facility] [address] [place] [address] Dr. Erlinda Rivera Hemoglobin Ql (U) Negative Normal NEGATIVE [facility] Comment on above: Performed By: #### ESTHER SOTELOICRO #### [facility] [address] [place] [address] Dr. Erlinda Rivera Ketones Ql (U) Negative Normal NEGATIVE [facility] Comment on above: Performed By: #### SEBASTIÁN SOTELORO #### [facility] [address] [place] [address] Dr. Erlinda Rivera LEUKOCYTES SMALL Abnormal NEGATIVE [facility] Comment on above: Performed By: #### Sakina DE PAZ UMICRO #### [facility] [address] [place] [address] Dr. Erlinda Rivera Nitrite Ql (U) Negative Normal NEGATIVE [facility] Comment on above: Performed By: #### SEBASTIÁN SOTELORO #### [facility] [address] [place] [address] Dr. Erlinda Rivera pH (U) 6.0 [pH] Normal 5-9 [facility] Comment on above: Performed By: #### SEBASTIÁN SOTELORO #### [facility] [address] [place] [address] Dr. Erlinda Rivera SPEC GRAVITY 1.020 Normal 1.005-<=1.025 [facility] Comment on above: Performed By: #### Sakina DE PAZ UMICRO #### [facility] [address] [place] [address] Dr. Erlinda Rivera UA PROTEIN Negative Normal NEGATIVE/ TRACE [facility] Comment on above: Performed By: #### Sakina DE PAZ UMICRO #### [facility] [address] [place] [address] Dr. Erlinda Rivera UR MICRO IND INDICATED Normal [facility] Comment on above: Performed By: #### E RUR UMICRO #### [facility] [address] [place] [address] Dr. Erlinda Rivera Urobilinogen Qn (U) 0.2 {Shannan'U}/dL Normal 0.2 - 1. 0 [facility] Comment on above: Performed By: #### E RUR UMICRO #### [facility] [address] [place] [address] Dr. Erlinda Rivera ETHANOL (BLD ALC)on 06-06-20 22 ALC NOTE NOTE: 80 mg/dl is th e legal limit for a blood alcohol level Normal [facility] Comment on above: Performed By: #### E TH, SALYC, ACET, CMP #### [facility] [address] [place] [address] Dr. Erlinda Rivera Ethanol [Mass/Vol] mg/dL Normal [facility] Comment on above: Performed By: #### E TH, SALYC, ACET, CMP #### [facility] [address] [place] [address] Dr. Erlinda Rivera URon 06-06-2022 , QUAL Negative Normal NEGATIVE [facility] Comment on above: Performed By: #### P REGU #### [facility] [address] [place] [address] Dr. Erlinda Rivera PROF 14(COMP METB)on 022 Albumin [Mass/Vol] 4.2 g/dL Normal 3.4-5.0 [facility] Comment on above: Performed By: #### E TH, SALYC, ACET, CMP #### [facility] [address] [place] [address] Dr. Erlinda Rivera Albumin/Globulin [Mass ratio] 1.2 {ratio} Normal [facility] Comment on above: Performed By: #### E TH, SALYC, ACET, CMP #### [facility] [address] [place] [address] Dr. Erlinda Rivera ALP [Catalytic activity/Vol] 71 U/L Normal 46-[address] [facility] Comment on above: Performed By: #### E TH, SALYC, ACET, CMP #### [facility] [address] [address] [address] Erlinda Rivera ALT [Catalytic activity/Vol] 91 U/L Critically high 14-59 [facility] Comment on above: Performed By: #### E TH, SALYC, ACET, CMP #### [facility] [address] [place] [address] Dr. Erlinda Rivera Anion gap [Moles/Vol] 13.9 mmol/L Normal [facility] Comment on above: Performed By: #### E TH, SALYC, ACET, CMP #### [facility] [address] [place] [address] Dr. Erlinda Rivera AST [Catalytic activity/Vol] 81 U/L Critically high 15-37 [facility] Comment on above: Performed By: #### E TH, SALYC, ACET, CMP #### [facility] [address] [place] [address] Dr. Erlinda Rivera Bilirubin [Mass/Vol] 0.4 mg/dL Normal 0.2-1.0 [facility] Comment on above: Performed By: #### E TH, SALYC, ACET, CMP #### [facility] [address] [place] [address] Dr. Erlinda Rivera Calcium [Mass/Vol] 9.1 mg/dL Normal 8.5-10.1 [facility] Comment on above: Performed By: #### E TH, SALYC, ACET, CMP #### [facility] [address] [place] [address] Dr. Erlinda Rivera Chloride [Moles/Vol] 105 mmol/L Normal 98-107 [facility] Comment on above: Performed By: #### E TH, SALYC, ACET, CMP #### [facility] [address] [place] [address] Dr. Erlinda Rivera CO2 [Moles/Vol] 28.3 mmol/L Normal 21.0-32.0 [facility] Comment on above: Performed By: #### E TH, SALYC, ACET, CMP #### [facility] [address] [place] [address] Dr. Erlinda Rivera Creatinine [Mass/Vol] 0.86 mg/dL Normal 0.55-1.02 [facility] Comment on above: Performed By: #### E TH, SALYC, ACET, CMP #### [facility] [address] [place] [address] Dr. Erlinda Rivera EGFR-AF [place]I >60 Normal >=60 [facility] Comment on above: Performed By: #### E TH, SALYC, ACET, CMP #### [facility] [address] [place] [address] Dr. Erlinda Rivera EGFR-NON AF [place] >60 Normal >=60 [facility] Comment on above: Performed By: #### E TH, SALYC, ACET, CMP #### [facility] [address] [place] [address] Dr. Erlinda Rivera Globulin (S) [Mass/Vol] 3.4 g/dL Normal T [facility] Comment on above: Performed By: #### E , SALYC, ACET, CMP #### [facility] [address] [place] [address] Dr. Erlinda Rivera Glucose [Mass/Vol] 94 mg/dL Normal 74-106 [facility] Comment on above: Performed By: #### E , SALYC, ACET, CMP #### [facility] [address] [place] [address] Dr. Erlinda Rivera Potassium [Moles/Vol] 4.2 mmol/L Normal 3.5-5.[address] [facility] Comment on above: Performed By: #### E TH, SALYC, ACET, CMP #### [facility] [address] [place] [address] Dr. Erlinda Rivera Protein [Mass/Vol] 7.6 g/dL Normal 6.4-8.[address] [facility] Comment on above: Performed By: #### E TH, SALYC, ACET, CMP #### [facility] [address] [place] [address] Dr. Erlinda Rivera Sodium [Moles/Vol] 143 mmol/L Normal 136-[address] [facility] Comment on above: Performed By: #### E TH, SALYC, ACET, CMP #### [facility] [address] [place] [address] Dr. Erlinda Rivera Urea nitrogen [Mass/Vol] 10.0 mg/dL Normal 7.0-18.[address] [facility] Comment on above: Performed By: #### E TH, SALYC, ACET, CMP #### [facility] [address] [place] [address] Dr. Erlinda Rivera Urea nitrogen/Creatinine [Mass ratio] 11.6 mg/mg Normal [facility] Comment on above: Performed By: #### E TH, SALYC, ACET, CMP #### [facility] [address] [place] [address] Dr. Erlinda Rivera SALICYLATEon 06-06-2022 SALICYLATE 3.5 mg/dL Normal <=19.9 [facility] Comment on above: Performed By: #### E TH, SALYC, ACET, CMP #### [facility] [address] [place] [address] Dr. Erlinda Rivera URINE MICROSCOPIC ONLYon BACTERIA SMALL Abnormal NONE SEEN [facility] Comment on above: Performed By: #### E RUR, UMICRO #### [facility] [address] [place] [address] Dr. Erlinda Rivera Bacteria identified Cx Nom (U) INDICATED Normal [facility] Comment on above: Performed By: #### E RUR, UMICRO #### [facility] [address] [place] [address] Dr. Erlinda Rivera CAST NONE SEEN Normal NONE SEEN [facility] Comment on above: Performed By: #### E RUR, UMICRO #### [facility] [address] [place] [address] Dr. Erlinda Rivera Crystals LM Nom (Urine sed) NONE SEEN Normal NONE SEEN [facility] Comment on above: Performed By: #### E RUR, UMICRO #### [facility] [address] [place] [address] Dr. Erlinda Rivera Epithelial cells LM Ql (Urine sed) FEW Abnormal NONE SEEN /RARE [facility] Comment on above: Performed By: #### E RUR, UMICRO #### [facility] [address] [address] [address] Erlinda Rivera MUCOUS NONE SEEN Normal NONE SEEN [facility] Comment on above: Performed By: #### E RUR, UMICRO #### [facility] [address] [address] [address] Erlinda Rivera RBC 0-2 Normal 0-2 [facility] Comment on above: Performed By: #### E ZANDRA, UMICRO #### [facility] [address] [address] [address] Erlinda Rivera WBC 2-5 Abnormal NONE SEEN [facility] Comment on above: Performed By: #### E ESTHER DE PAZICRO #### [facility] [address] [place] [address] Dr. Erlinda Rivera HCV RNA,Quant,PCRon 04-08-20 22 HCV Quant 99,000 IU/mL Normal [facility] Comment on above: Performed By: #### H CVQN #### [address] [address] Director Sterile Processing: Gee Soriano MD [address] [place] [phone] Director Sterile Processing: Kelli Martel MD #### CBC, TSH, CP #### [address] [place], [place] [address] Director Sterile Processing: Kelli Martel MD #### HIVCMB, PHEP, TREP, SWCGP, FT4 #### [address] [place] [address] Director Sterile Processing: Gee Soriano MD HCV RNA,Quant Detected [facility] Comment on above: Result Comment: HCV [...] Department Performed By: #### H CVQN #### [address] [address] Director Sterile Processing: Gee Soriano MD [address] [place] [address] Director Sterile Processing: Kelli Martel MD #### CBC, TSH, CP #### [address] [place] [address] Director Sterile Processing: Kelli Martel MD #### HIVCMB, PHEP, TREP, SWCGP, FT4 #### [address] [address] Director Sterile Processing: Gee Soriano MD HCV,RNA Log 5.00 Log IU/mL [facility] Comment on above: Performed By: #### H CVQN #### [address] [address] Director Sterile Processing: Gee Soriano MD [address] [id number] Director Sterile Processing: Kelli Martel MD #### CBC, TSH, CP #### [address] [place] [address] Director Sterile Processing: Kelli Martel MD #### HIVCMB, PHEP, TREP, SWCGP, FT4 #### [address] [address] Director Sterile Processing: Gee Soriano MD Chlamydia/GC,DNA Ampon 04-07 Chlamydia Probe Negative [facility] Comment on above: Result Comment: CHLA MYDIA [...] target. Performed By: #### H CVQN #### [facility] [place] [address] Director Sterile Processing: Gee Soriano MD [address] [place] [address] Director Sterile Processing: Kelli Martel MD #### CBC, TSH, CP #### [address] [place] [address] Director Sterile Processing: Kelli Martel MD #### HIVCMB, PHEP, TREP, SWCGP, FT4 #### [address] [address] Director Sterile Processing: Gee Soriano MD Gonorrhea Probe Negative Normal NEG [facility] Comment on above: Result Comment: NEIS [...] target. Performed By: #### H CVQN #### [address] [address] Director Sterile Processing: Gee Soriano MD [address] [place], [place] [address]83 Director Sterile Processing: Kelli Martel MD #### CBC, TSH, CP #### [address] [place] [address] Director Sterile Processing: Kelli Martel MD #### HIVCMB, PHEP, TREP, SWCGP, FT4 #### [address] [place] [address] Director Sterile Processing: MD LEILANI Martellon 04-06-2022 Erythrocyte distribution width (RBC) [Ratio] 12.4 % Normal 11.8-14.4 [facility] Comment on above: Performed By: #### H CVQN #### [address] [address] Director Sterile Processing: Gee Soriano MD [address] [phone] Director Sterile Processing: Kelli Martel MD #### CBC, TSH, CP #### [address] [phone] Director Sterile Processing: Kelli Martel MD #### HIVCMB, PHEP, TREP, SWCGP, FT4 #### [address] [address] Director Sterile Processing: Gee Soriano MD Hematocrit (Bld) [Volume fraction] 39.3 % Normal 36.3-47.1 [facility] Comment on above: Performed By: #### H CVQN #### [address] [address] Director Sterile Processing: Gee Soriano MD [address] [phone] Director Sterile Processing: Kelli Martel MD #### CBC, TSH, CP #### [address] [place] [address] Director Sterile Processing: Kelli Martel MD #### HIVCMB, PHEP, TREP, SWCGP, FT4 #### [address] [address] Director Sterile Processing: Gee Soriano MD Hemoglobin (Bld) [Mass/Vol] 12.5 g/dL Normal 11.9-15.1 [facility] Comment on above: Performed By: #### H CVQN #### [address] [address] Director Sterile Processing: Gee Soriano MD [address] [place], [place] [phone] Director Sterile Processing: Kelli Martel MD #### CBC, TSH, CP #### [address] [place], [place] [id number] Director Sterile Processing: Kelli Martel MD #### HIVCMB, PHEP, TREP, SWCGP, FT4 #### [address] [address] Director Sterile Processing: Gee Soriano MD MCH (RBC) [Entitic mass] 33.5 pg Normal 25.2-33.5 [facility] Comment on above: Performed By: #### H CVQN #### [address] [address] Director Sterile Processing: Gee Soriano MD [address] [place], [place] [phone] Director Sterile Processing: Kelli Martel MD #### CBC, TSH, CP #### [address] [place], [place] 6858383 Director Sterile Processing: Kelli Martel MD #### HIVCMB, PHEP, TREP, SWCGP, FT4 #### [address] [address] Director Sterile Processing: Gee Soriano MD MCHC (RBC) [Mass/Vol] 31.8 g/dL Normal 28.4-34.8 [facility] Comment on above: Performed By: #### H CVQN #### [address] [address] Director Sterile Processing: Gee Soriano MD [address] [place], [place] 15[address]683 Director Sterile Processing: Kelli Martel MD #### CBC, TSH, CP #### [address] [place], [place] [address]83 Director Sterile Processing: Kelli Martel MD #### HIVCMB, PHEP, TREP, SWCGP, FT4 #### [address] [address] Director Sterile Processing: Gee Soriano MD MCV (RBC) [Entitic vol] 105.4 fL High 82.6-102.9 [facility] Comment on above: Performed By: #### H CVQN #### [address] [address] Director Sterile Processing: Gee Soriano MD [address] [place], [place] [id number] Director Sterile Processing: Kelli Martel MD #### CBC, TSH, CP #### [address] [place] [address] Director Sterile Processing: Kelli Martel MD #### HIVCMB, PHEP, TREP, SWCGP, FT4 #### [address] [address] Director Sterile Processing: Gee Soriano MD NRBC Automated 0.0 per 100 WBC Normal 0.0 [facility] Comment on above: Performed By: #### H CVQN #### [address] [address] Director Sterile Processing: Gee Soriano MD [address] [place], [place] [address]83 Director Sterile Processing: Kelli Martel MD #### CBC, TSH, CP #### [address] [place] [phone] Director Sterile Processing: Kelli Martel MD #### HIVCMB, PHEP, TREP, SWCGP, FT4 #### [address] [address] Director Sterile Processing: Gee Soriano MD Platelet mean volume (Bld) [Entitic vol] 10.6 fL Normal 8.1-13.5 [facility] Comment on above: Performed By: #### H CVQN #### [address] [address] Director Sterile Processing: Gee Soriano MD [address] [place] [address] Director Sterile Processing: Kelli Martel MD #### CBC, TSH, CP #### [address] [phone] Director Sterile Processing: Kelli Martel MD #### HIVCMB, PHEP, TREP, SWCGP, FT4 #### [address] [address] Director Sterile Processing: Gee Soriano MD Platelets (Bld) [#/Vol] 280 10*3/uL Normal 138-453 [facility] Comment on above: Performed By: #### H CVQN #### [address] [address] Director Sterile Processing: Gee Soriano MD [address] [place] [address] Director Sterile Processing: Kelli Martel MD #### CBC, TSH, CP #### [address] [place] [phone] Director Sterile Processing: Kelli Martel MD #### HIVCMB, PHEP, TREP, SWCGP, FT4 #### [address] [address] Director Sterile Processing: Gee Soriano MD RBC (Bld) [#/Vol] 3.73 10*6/uL Low 3.95-5.11 [facility] Comment on above: Performed By: #### H CVQN #### [facility] [address] [place] [address] Director Sterile Processing: Gee Soriano MD [address] [place], [place] 8185783 Director Sterile Processing: Kelli Martel MD #### CBC, TSH, CP #### [address] [place], [place] [address]83 Director Sterile Processing: Kelli Martel MD #### HIVCMB, PHEP, TREP, SWCGP, FT4 #### [address] [phone] Director Sterile Processing: Gee Soriano MD WBC (Bld) [#/Vol] 4.6 10*3/uL Normal 3.5-11.3 [facility] Comment on above: Performed By: #### H CVQN #### [address] [address] Director Sterile Processing: Gee Soriano MD [address] [phone] Director Sterile Processing: Kelli Martel MD #### CBC, TSH, CP #### [address] [place], [place] [phone] Director Sterile Processing: Kelli Martel MD #### HIVCMB, PHEP, TREP, SWCGP, FT4 #### [address] [address] Director Sterile Processing: Gee Soriano MD Hematocrit (Bld) [Volume fraction] 39.3 % 36.3 - 47.1 % [facility] Hemoglobin (Bld) [Mass/Vol] 12.5 g/dL 11.9 - 15.1 g/dL [facility] Interpretation and review of laboratory results Abnormal [facility] MCH (RBC) [Entitic mass] 33.5 pg 25.2 - 33.5 pg [facility] MCHC (RBC) [Mass/Vol] 31.8 g/dL 28.4 - 34.8 g/dL [facility] MCV (RBC) [Entitic vol] 105.4 fL High 82.6 - 102.9 fL [facility] NRBC Automated 0.0 0.0 per 100 WBC [facility] Platelet distribution width (Bld) [Ratio] 12.4 % 11.8 - 14.4 % [facility] Platelet mean volume (Bld) [Entitic vol] 10.6 fL 8.1 - 13.5 fL [facility] Platelets (Bld) [#/Vol] 280 10*3/uL [facility] RBC (Bld) [#/Vol] 3.73 10*6/uL Low 3.95 - 5.1 1 m/uL [facility] WBC (Bld) [#/Vol] 4.6 10*3/uL [facility] Comp Metabolic Profon 2021 (cont.) Normal [facility] Comment on above: Result Comment: Aver age GFR for 40-49 years old: 99 mL/min/1.73sq m Chronic Kidney Disease: <60 mL/min/1.73sq m Kidney failure: <15 mL/min/1.73sq m eGFR calculated using average adult body mass. Additional eGFR calculator available at: http://www.[employer]/multiple_crcl_2012.htm Performed By: #### H CVQN #### [facility] [address] [place] [address] Director Sterile Processing: Gee Soriano MD [facility] [address] [place] [address] Director Sterile Processing: Kelli Martel MD #### CBC, TSH, CP #### [facility] [address] [place], [place] [address] Director Sterile Processing: Kelli Martel MD #### HIVCMB, PHEP, TREP, SWCGP, FT4 #### [address] [address] Director Sterile Processing: Gee Soriano MD Albumin [Mass/Vol] 4.2 g/dL Normal 3.5-5.2 [facility] Comment on above: Performed By: #### H CVQN #### [address] [address] Director Sterile Processing: Gee Soriano MD [address] [place] [phone] Director Sterile Processing: Kelli Martel MD #### CBC, TSH, CP #### [address] [place] [phone] Director Sterile Processing: Kelli Martel MD #### HIVCMB, PHEP, TREP, SWCGP, FT4 #### [address] [address] Director Sterile Processing: Gee Soriano MD Albumin/Glob Ratio 1.6 Normal 1.0-2.5 [facility] Comment on above: Performed By: #### H CVQN #### [address] [address] Director Sterile Processing: Gee Soriano MD [address] [place] [id number] Director Sterile Processing: Kelli Martel MD #### CBC, TSH, CP #### [address] [place], [place] [phone] Director Sterile Processing: Kelli Martel MD #### HIVCMB, PHEP, TREP, SWCGP, FT4 #### [facility] [address] [place] [address] Director Sterile Processing: Gee Soriano MD Alkaline Phos 65 U/L Normal 35-104 [facility] Comment on above: Performed By: #### H CVQN #### [address] [address] Director Sterile Processing: Gee Soriano MD [address] [place], [place] [phone] Director Sterile Processing: Kelli Martel MD #### CBC, TSH, CP #### [address] [place], [place] [phone] Director Sterile Processing: Kelli Martel MD #### HIVCMB, PHEP, TREP, SWCGP, FT4 #### [address] [address] Director Sterile Processing: Gee Soriano MD ALT [Catalytic activity/Vol] 33 U/L Normal 5-33 [facility] Comment on above: Performed By: #### H CVQN #### [address] [address] Director Sterile Processing: Gee Soriano MD [address] [place], [place] [phone] Director Sterile Processing: Kelli Martel MD #### CBC, TSH, CP #### [address] [place], [place] [phone] Director Sterile Processing: Kelli Martel MD #### HIVCMB, PHEP, TREP, SWCGP, FT4 #### [address] [address] Director Sterile Processing: Gee Soriano MD Anion gap [Moles/Vol] 9 mmol/L Normal 9-17 [facility] Comment on above: Performed By: #### H CVQN #### [address] [address] Director Sterile Processing: Gee Soriano MD [address] [place] [address] Director Sterile Processing: Kelli Martel MD #### CBC, TSH, CP #### [address] [place] [address] Director Sterile Processing: Kelli Martel MD #### HIVCMB, PHEP, TREP, SWCGP, FT4 #### [address] [address] Director Sterile Processing: Gee Soriano MD AST [Catalytic activity/Vol] 38 U/L High <32 [facility] Comment on above: Performed By: #### H CVQN #### [address] [address] Director Sterile Processing: Gee Soriano MD [address] [place], [place] [phone] Director Sterile Processing: Kelli Martel MD #### CBC, TSH, CP #### [address] [place], [place] [phone] Director Sterile Processing: Kelli Martel MD #### HIVCMB, PHEP, TREP, SWCGP, FT4 #### [facility] [address] [place] [address] Director Sterile Processing: Gee Soriano MD Bilirubin [Mass/Vol] 0.23 mg/dL Low 0.3-1.2 [facility] Comment on above: Performed By: #### H CVQN #### [address] [address] Director Sterile Processing: Gee Soriano MD [address] [place], [place] [phone] Director Sterile Processing: Kelli Martel MD #### CBC, TSH, CP #### [address] [place], [place] [phone] Director Sterile Processing: Kelli Martel MD #### HIVCMB, PHEP, TREP, SWCGP, FT4 #### [address] [address] Director Sterile Processing: Gee Soriano MD BUN/CRE Ratio 17 Normal 9-20 [facility] Comment on above: Performed By: #### H CVQN #### [address] [address] Director Sterile Processing: Gee Soriano MD [address] [place] [phone] Director Sterile Processing: Kelli Martel MD #### CBC, TSH, CP #### [address] [place] [phone] Director Sterile Processing: Kelli Martel MD #### HIVCMB, PHEP, TREP, SWCGP, FT4 #### [address] [address] Director Sterile Processing: Gee Soriano MD Calcium [Mass/Vol] 8.9 mg/dL Normal 8.6-10.4 [facility] Comment on above: Performed By: #### H CVQN #### [address] [address] Director Sterile Processing: Gee Soriano MD [address] [place] [address] Director Sterile Processing: Kelli Martel MD #### CBC, TSH, CP #### [address] [place], [place] 5629183 Director Sterile Processing: Kelli Martel MD #### HIVCMB, PHEP, TREP, SWCGP, FT4 #### [place] [address] [place] [address] Director Sterile Processing: Gee Soriano MD Chloride [Moles/Vol] 106 mmol/L Normal 98-107 [facility] Comment on above: Performed By: #### H CVQN #### [address] [address] Director Sterile Processing: Gee Soriano MD [address] [place] [address] Director Sterile Processing: Kelli Martel MD #### CBC, TSH, CP #### [address] [place], [place] [phone] Director Sterile Processing: Kelli Martel MD #### HIVCMB, PHEP, TREP, SWCGP, FT4 #### [address] [address] Director Sterile Processing: Gee Soriano MD CO2 [Moles/Vol] 30 mmol/L Normal 20-31 [facility] Comment on above: Performed By: #### H CVQN #### [address] [address] Director Sterile Processing: Gee Soriano MD [address] [place] [address] Director Sterile Processing: Kelli Martel MD #### CBC, TSH, CP #### [address] [place], [place] 0549083 Director Sterile Processing: Kelli Martel MD #### HIVCMB, PHEP, TREP, SWCGP, FT4 #### [address] [address] Director Sterile Processing: Gee Soriano MD Creatinine [Mass/Vol] 0.71 mg/dL Normal 0.50-0.90 [facility] Comment on above: Performed By: #### H CVQN #### [address] [address] Director Sterile Processing: Gee Soriano MD [address] [place], [place] [phone] Director Sterile Processing: Kelli Martel MD #### CBC, TSH, CP #### [address] [place] [address] Director Sterile Processing: Kelli Martel MD #### HIVCMB, PHEP, TREP, SWCGP, FT4 #### [address] [address] Director Sterile Processing: Gee Soriano MD GFR, Amer >60 Normal >60 [facility] Comment on above: Performed By: #### H CVQN #### [address] [address] Director Sterile Processing: Gee Soriano MD [address] [place] [address] Director Sterile Processing: Kelli Martel MD #### CBC, TSH, CP #### [address] [place] [address] Director Sterile Processing: Kelli Martel MD #### HIVCMB, PHEP, TREP, SWCGP, FT4 #### [address] [address] Director Sterile Processing: Gee Soriano MD GFR,non Amer >60 Normal >60 [facility] Comment on above: Performed By: #### H CVQN #### [address] [address] Director Sterile Processing: Gee Soriano MD [address] [place] [address] Director Sterile Processing: Kelli Martel MD #### CBC, TSH, CP #### [address] [place] [address] Director Sterile Processing: Kelli Martel MD #### HIVCMB, PHEP, TREP, SWCGP, FT4 #### [address] [address] Director Sterile Processing: Gee Soriano MD Glucose [Mass/Vol] 118 mg/dL High 70-99 [facility] Comment on above: Performed By: #### H CVQN #### [facility] [address] [place] [address] Director Sterile Processing: Gee Soriano MD [address] [place], [place] 1044583 Director Sterile Processing: Kelli Martel MD #### CBC, TSH, CP #### [address] [place], [place] 3023183 Director Sterile Processing: Kelli Martel MD #### HIVCMB, PHEP, TREP, SWCGP, FT4 #### [address] [address] Director Sterile Processing: Gee Soriano MD Potassium [Moles/Vol] 3.9 mmol/L Normal 3.7-5.3 [facility] Comment on above: Performed By: #### H CVQN #### [address] [address] Director Sterile Processing: Gee Soriano MD [address] [place], [place] 5013683 Director Sterile Processing: Kelli Martel MD #### CBC, TSH, CP #### [address] [place], [place] [phone] Director Sterile Processing: Kelli Martel MD #### HIVCMB, PHEP, TREP, SWCGP, FT4 #### [address] [address] Director Sterile Processing: Gee Soriano MD Protein [Mass/Vol] 6.8 g/dL Normal 6.4-8.3 [facility] Comment on above: Performed By: #### H CVQN #### [address] [address] Director Sterile Processing: Gee Soriano MD [address] [place], [place] 7237183 Director Sterile Processing: Kelli Martel MD #### CBC, TSH, CP #### [address] [place], [place] [phone] Director Sterile Processing: Kelli Martel MD #### HIVCMB, PHEP, TREP, SWCGP, FT4 #### [facility] [address] [place] [address] Director Sterile Processing: Gee Soriano MD Sodium [Moles/Vol] 145 mmol/L High 135-144 [facility] Comment on above: Performed By: #### H CVQN #### [address] [address] Director Sterile Processing: Gee Soriano MD [address] [place] [address] Director Sterile Processing: Kelli Martel MD #### CBC, TSH, CP #### [address] [place], [place] 6430583 Director Sterile Processing: Kelli Martel MD #### HIVCMB, PHEP, TREP, SWCGP, FT4 #### [address] [address] Director Sterile Processing: Gee Soriano MD Staging: Normal [facility] Comment on above: Result Comment: Stag e 1: Some kidney damage normal GFR Stage 2: Mild kidney damage GFR 60-89 Stage 3: Moderate kidney damage GFR 30-59 Stage 4: Severe kidney damage GFR 15-29 Stage 5: Severe kidney damage GFR <15 ESRD - chronic treatment by dialysis or transplant Performed By: #### H CVQN #### [facility] [address] [place] [address] Director Sterile Processing: Gee Soriano MD [address] [place], [place] [phone] Director Sterile Processing: Kelli Martel MD #### CBC, TSH, CP #### [address] [place], [place] 0993283 Director Sterile Processing: Kelli Martel MD #### HIVCMB, PHEP, TREP, SWCGP, FT4 #### [place] [address] [place] [address] Director Sterile Processing: Gee Soriano MD Urea nitrogen [Mass/Vol] 12 mg/dL Normal 6-20 [facility] Comment on above: Performed By: #### H CVQN #### [facility] [address] [place] [address] Director Sterile Processing: Gee Soriano MD [address] [place], [place] [phone] Director Sterile Processing: Kelli Martel MD #### CBC, TSH, CP #### [address] [place], [place] [phone] Director Sterile Processing: Kelli Martel MD #### HIVCMB, PHEP, TREP, SWCGP, FT4 #### [facility] [address] [place] [address] Director Sterile Processing: Gee Soriano MD Comprehensive Metabolic Pane [facility] 04-06-2022 Albumin [Mass/Vol] 4.2 g/dL 3.5 - 5.2 g/dL [facility] Albumin/Globulin [Mass ratio] 1.6 {ratio} [facility] ALP (Bld) [Catalytic activity/Vol] 65 U/L 35 - 104 U/L [facility] ALT [Catalytic activity/Vol] 33 U/L 5 - 33 U/L [facility] Anion gap [Moles/Vol] 9 mmol/L 9 - 17 mmol/L [facility] AST [Catalytic activity/Vol] 38 U/L High <32 [facility] Bilirubin [Mass/Vol] 0.23 mg/dL Low 0.3 - 1 .2 mg/dL [facility] Calcium [Mass/Vol] 8.9 mg/dL 8.6 - 10. 4 mg/dL [facility] Chloride [Moles/Vol] 106 mmol/L 98 - 10 7 mmol/L [facility] CO2 [Moles/Vol] 30 mmol/L 20 - 31 mmol/L [facility] Creatinine [Mass/Vol] 0.71 mg/dL 0.50 - 0.90 mg/dL [facility] Free PSA/Total PSA [Mass fraction] 6.8 g/dL 6.4 - 8.3 g/dL [facility] GFR >60 >60 mL/min [facility] GFR Non- >60 >60 mL/min [facility] Glucose [Mass/Vol] 118 mg/dL High 70 - 99 mg/dL [facility] Interpretation and review of laboratory results Abnormal [facility] Potassium [Moles/Vol] 3.9 mmol/L 3.7 - 5.3 mmol/L [facility] Sodium [Moles/Vol] 145 mmol/L High 135 - 144 mmol/L [facility] Urea nitrogen (BldV) [Mass/Vol] 12 mg/dL 6 - 20 mg/dL [facility] Urea nitrogen/Creatinine (Bld) [Mass ratio] 17 [facility] HCV RNA,Quant,PCRon 04-06-20 22 Source .PLASMA Normal [facility] Comment on above: Performed By: #### H CVQN #### [facility] [address] [place], [place] [phone] Director Sterile Processing: Gee Soriano MD [facility] [address] [place] [address] Director Sterile Processing: Kelli Martel MD #### CBC, TSH, CP #### [facility] [address] [place] [address] Director Sterile Processing: Kelli Martel MD #### HIVCMB, PHEP, TREP, SWCGP, FT4 #### [facility] [address] [place] [address] Director Sterile Processing: Gee Soriano MD HIV Ag/Abon 04-06-2022 HIV Ag/Ab Non-Reactive Normal NR [facility] Comment on above: Result Comment: No l aboratory evidence of HIV infection. If acute HIV infection is suspected, consider testing for HIV-1 RNA. Performed By: #### H CVQN #### [facility] [address] [place] [address] Director Sterile Processing: Gee Soriano MD [address] [place], [place] [phone] Director Sterile Processing: Kelli Martel MD #### CBC, TSH, CP #### [address] [place] [address] Director Sterile Processing: Kelli Martel MD #### HIVCMB, PHEP, TREP, SWCGP, FT4 #### [place] [address] [place] [address] Director Sterile Processing: Gee Soriano MD HIV Screenon 04-06-2022 HIV Ag/Ab Non-Reactive NONREACTIVE [facility] Comment on above: No laboratory eviden ce of HIV infection. If acute HIV infection is suspected, consider testing for HIV-1 RNA. [facility] Hepatitis Acute Brina 04-06 Hep A Ab,IgM Non-Reactive Normal NR [facility] Comment on above: Performed By: #### H CVQN #### [facility] [address] [place] [address] Director Sterile Processing: Gee Soriano MD [address] [place] [address] Director Sterile Processing: Kelli Martel MD #### CBC, TSH, CP #### [address] [place] [address] Director Sterile Processing: Kelli Martel MD #### HIVCMB, PHEP, TREP, SWCGP, FT4 #### [address] [address] Director Sterile Processing: Gee Soriano MD Hep B Core Ab,IgM Non-Reactive Normal [facility] Comment on above: Performed By: #### H CVQN #### [address] [address] Director Sterile Processing: Gee Soriano MD [address] [place] [address] Director Sterile Processing: Kelli Martel MD #### CBC, TSH, CP #### [address] [place] [address] Director Sterile Processing: Kelli Martel MD #### HIVCMB, PHEP, TREP, SWCGP, FT4 #### [address] [address] Director Sterile Processing: Gee Soriano MD Hep B Surf Ag Non-Reactive Normal [facility] Comment on above: Performed By: #### H CVQN #### [address] [address] Director Sterile Processing: Gee Soriano MD [address] [place] [address] Director Sterile Processing: Kelli Martel MD #### CBC, TSH, CP #### [address] [place], [place] [phone] Director Sterile Processing: Kelli Martel MD #### HIVCMB, PHEP, TREP, SWCGP, FT4 #### [address] [address] Director Sterile Processing: Gee Soriano MD Hep C Ab Reactive Abnormal [facility] Comment on above: Result Comment: The hepatitis [...] Department Performed By: #### H CVQN #### [facility] [address] [place], [place] [phone] Director Sterile Processing: Gee Soriano MD [facility] [address] [place] [address] [place] [address] Director Sterile Processing: Kelli Mratel MD #### CBC, TSH, CP #### [facility] [address] [place] [address] [place] [address] Director Sterile Processing: Kelli Martel MD #### HIVCMB, PHEP, TREP, SWCGP, FT4 #### [facility] [address] [place], [place] [phone] Director Sterile Processing: Gee Soriano MD Hepatitis Panel, Acuteon HAV IgM IA Qn (S) Non-Reactive NONREACTIVE [facility] Hep B Core Ab, IgM Non-Reactive NONREACTIVE [facility] Hepatitis B Surface Ag Non-Reactive NONREACTIVE [facility] Hepatitis C Ab Reactive Abnormal NONREACTIVE [facility] Comment on above: The hepatitis C [...] Interpretation and review of laboratory results Abnormal [facility] Laboratory - Chemistry and C hemistry - challengeon 04-06-2022 GFR/1.73 sq M.predicted MDRD (S/P/Bld) [Vol rate/Area] [facility] Comment on above: Average GFR for 40-4 9 years old: 99 mL/min/1.73sq m Chronic Kidney Disease: <60 mL/min/1.73sq m Kidney failure: <15 mL/min/1.73sq m eGFR calculated using average adult body mass. Additional eGFR calculator available at: http://www.[employer]/multiple_crcl_2012.htm Stage 1: Some kidney damage normal GFR Stage 2: Mild kidney damage GFR 60-89 Stage 3: Moderate kidney damage GFR 30-59 Stage 4: Severe kidney damage GFR 15-29 Stage 5: Severe kidney damage GFR <15 ESRD - chronic treatment by dialysis or transplant No Panel Informationon 04-06 [facility] T. pallidum Abon 04-06-2022 T. pallidum, IgG Non-Reactive NONREACTIVE [facility] Comment on above: T. pallidum antibodies are not detected. There is no serological evidence of infection with T. pallidum (early primary syphilis cannot be excluded). Retest in 2-4 weeks if syphilis is clinically suspect. [facility] T.pallidum Ab Screenon 04-06 T.pallidum Ab Screen Non-Reactive Normal NR [facility] Comment on above: Result Comment: T. pallidum antibodies are not detected. There is no serological evidence of infection with T. pallidum (early primary syphilis cannot be excluded). Retest in 2-4 weeks if syphilis is clinically suspect. Performed By: #### H CVQN #### [address] [id number] Director Sterile Processing: Gee Soriano MD [address] [place] [address] Director Sterile Processing: Kelli Martel MD #### CBC, TSH, CP #### [address] [place] [address] Director Sterile Processing: Kelli Martel MD #### HIVCMB, PHEP, TREP, SWCGP, FT4 #### [address] [phone] Director Sterile Processing: Gee Soriano MD T4, Freeon 04-06-2022 Thyroxine, Free 1.13 ng/dL 0.93 - 1.70 ng/dL [facility] TSHon 04-06-2022 TSH Qn 0.77 m[IU]/L [facility] Thyroid Stim. Horm.on 2021 Thyroid Stim. Horm. 0.77 uIU/mL Normal 0.30-5.00 [facility] Comment on above: Performed By: #### H CVQN #### [address] [address] Director Sterile Processing: Gee Soriano MD [address] [place] [address] Director Sterile Processing: Kelli Martel MD #### CBC, TSH, CP #### [address] [place] [address] Director Sterile Processing: Kelli Martel MD #### HIVCMB, PHEP, TREP, SWCGP, FT4 #### [address] [address] Director Sterile Processing: Gee Soriano MD Thyroxine, Freeon 04-06-2022 Thyroxine, Free 1.13 ng/dL Normal 0.93-1.70 [facility] Comment on above: Performed By: #### H CVQN #### [address] [address] Director Sterile Processing: Gee Soriano MD [address] [place] [phone] Director Sterile Processing: Kelli Martel MD #### CBC, TSH, CP #### [address] [place] [address] Director Sterile Processing: Kelli Martel MD #### HIVCMB, PHEP, TREP, SWCGP, FT4 #### [address] [id number] Director Sterile Processing: Gee Soriano MD Trichomonas/Wet Prepon 04-06 Trichomonas/Wet Prep Specimen Descriptio n .VAGINAL SPECIMEN Direct Exam NO YEAST OBSERVED NO TRICHOMONAS SEEN NO CLUE CELLS SEEN Report Status FINAL 04/06/2022 Normal [facility] Comment on above: Performed By: #### W P #### [facility] [address] [place] [address] Director Sterile Processing: Kelli Martel MD Wet prep, genitalon 04-06-20 22 Direct Exam NO YEAST OBSERVED [facility] Direct Exam NO TRICHOMONAS SEEN [facility] Direct Exam NO CLUE CELLS SEEN [facility] Specimen Description .VAGINAL SPECIMEN [facility] ER URINE PROFILEon 2 Bilirubin Ql (U) Negative Normal NEGATIVE [facility] Comment on above: Performed By: #### E RUR #### [facility] [address] [place] [address] Dr. Erlinda Rivera Clarity (U) CLEAR Normal CLEAR [facility] Comment on above: Performed By: #### E RUR #### [facility] [address] [place] [address] Dr. Erlinda Rivera Color (U) LT. YELLOW Normal YELLOW [facility] Comment on above: Performed By: #### E RUR #### [facility] [address] [place] [address] Dr. Erlinda ALFONSO A micrscopic examination will be performed if indicated. Normal [facility] Comment on above: Performed By: #### E RUR #### [facility] [address] [place] [address] Dr. Erlinda Rivera Glucose Ql (U) Negative Normal NEGATIVE [facility] Comment on above: Performed By: #### E RUR #### [facility] [address] [place] [address] Dr. Erlinda Rivera Hemoglobin Ql (U) Negative Normal NEGATIVE [facility] Comment on above: Performed By: #### E RUR #### [facility] [address] [place] [address] Dr. Erlinda Rivera Ketones Ql (U) Negative Normal NEGATIVE [facility] Comment on above: Performed By: #### E RUR #### [facility] [address] [place] [address] Dr. Erlinda Rivera LEUKOCYTES Negative Normal NEGATIVE [facility] Comment on above: Performed By: #### E RUR #### [facility] [address] [place] [address] Dr. Erlinda Rivera Nitrite Ql (U) Negative Normal NEGATIVE [facility] Comment on above: Performed By: #### E RUR #### [facility] [address] [place] [address] Dr. Erlinda Rivera pH (U) 7.0 [pH] Normal 5-9 [facility] Comment on above: Performed By: #### E RUR #### [facility] [address] [place] [address] Dr. Erlinda Rivera SPEC GRAVITY <=1.005 Abnormal 1.005-<=1.025 [facility] Comment on above: Performed By: #### E RUR #### [facility] [address] [place] [address] Dr. Erlinda Rivera UA PROTEIN Negative Normal NEGATIVE/ TRACE [facility] Comment on above: Performed By: #### E RUR #### [facility] [address] [place] [address] Dr. Erlinda Rivera UR MICRO IND NOT INDICATED Normal [facility] Comment on above: Performed By: #### E RUR #### [facility] [address] [place] [address] Dr. Erlinda Rivera Urobilinogen Qn (U) 0.2 {Shannan'U}/dL Normal 0.2 - 1. 0 [facility] Comment on above: Performed By: #### E RUR #### [facility] [address] [place] [address] Dr. Erlinda Rivera XR CHEST 2 Von [...] KAYLA NYE Date: 2022-03-24 22:[address] [facility] CBC AUTO DIFFon 03-24-2022 BASO # 0.0 103/ul Normal 0.0-0.1 [facility] Comment on above: Performed By: #### E TH, SALYC, ACET, CMP #### [facility] [address] [place] [address] Dr. Erlinda Rivera Basophils/100 WBC (Bld) 0.4 % Normal 0.2-2.0 [facility] Comment on above: Performed By: #### E TH, SALYC, ACET, CMP #### [facility] [address] [place] [address] Dr. Erlinda Rivera EO # 0.1 103/ul Normal 0.0-0.7 [facility] Comment on above: Performed By: #### E TH, SALYC, ACET, CMP #### [facility] [address] [place] [address] Dr. Erlinda Rivera Eosinophils/100 WBC (Bld) 1.8 % Normal 0.9-7.0 [facility] Comment on above: Performed By: #### E TH, SALYC, ACET, CMP #### [facility] [address] [place] [address] Dr. Erlinda Rivera Erythrocyte distribution width (RBC) [Ratio] 12.7 % Normal 11.0-15.0 [facility] Comment on above: Performed By: #### E TH, SALYC, ACET, CMP #### [facility] [address] [place] [address] Dr. Erlinda Rivera Hematocrit (Bld) [Volume fraction] 31.6 % Critically low 36.0-48.0 [facility] Comment on above: Performed By: #### E TH, SALYC, ACET, CMP #### [facility] [address] [place] [address] Dr. Erlinda Rivera Hemoglobin (Bld) [Mass/Vol] 10.4 g/dL Critically low 12.0-16.[address] [facility] Comment on above: Performed By: #### E TH, SALYC, ACET, CMP #### [facility] [address] [place] [address] Dr. Erlinda Rivera IG # 0.07 10e3/ul Critically high 0.00-0.[address] [facility] Comment on above: Performed By: #### E TH, SALYC, ACET, CMP #### [facility] [address] [place] [address] Dr. Erlinda Rivera IG % 1.2 % Critically high 0.0-0.[address] [facility] Comment on above: Performed By: #### E TH, SALYC, ACET, CMP #### [facility] [address] [place] [address] Dr. Erlinda Rivera LYMPH # 1.3 103/ul Normal 1.2-3.[address] [facility] Comment on above: Performed By: #### E TH, SALYC, ACET, CMP #### [facility] [address] [place] [address] Dr. Erlinda Rivera Lymphocytes/100 WBC (Bld) 23.4 % Normal 20.5-60.[address] [facility] Comment on above: Performed By: #### E TH, SALYC, ACET, CMP #### [facility] [address] [place] [address] Dr. Erlinda Rivera MANUAL DIFF REQ NO Normal [facility] Comment on above: Performed By: #### E TH, SALYC, ACET, CMP #### [facility] [address] [place] [address] Dr. Erlinda Rivera MCH (RBC) [Entitic mass] 33.8 pg Normal 26.7-34.[address] [facility] Comment on above: Performed By: #### E TH, SALYC, ACET, CMP #### [facility] [address] [place] [address] Dr. Erlinda Rivera MCHC (RBC) [Mass/Vol] 32.9 g/dL Normal 29.9-35.[address] [facility] Comment on above: Performed By: #### E TH, SALYC, ACET, CMP #### [facility] [address] [place] [address] Dr. Erlinda Rivera MCV (RBC) [Entitic vol] 102.6 fL Critically high 81.0-[address] [facility] Comment on above: Performed By: #### E TH, SALYC, ACET, CMP #### [facility] [address] [place] [address] Dr. Erlinda Rivera MONO # 0.4 103/ul Normal 0.3-0.[address] [facility] Comment on above: Performed By: #### E TH, SALYC, ACET, CMP #### [facility] [address] [place] [address] Dr. Erlinda Rivera Monocytes/100 WBC (Bld) 6.9 % Normal 1.7-12.0 [facility] Comment on above: Performed By: #### E TH, SALYC, ACET, CMP #### [facility] [address] [place] [address] Dr. Erlinda Rivera NEUT # 3.8 103/ul Normal 1.4-6.[address] [facility] Comment on above: Performed By: #### E TH, SALYC, ACET, CMP #### [facility] [address] [place] [address] Dr. Erlinda Rivera Neutrophils/100 WBC (Bld) 66.3 % Normal 43.0-75.[address] [facility] Comment on above: Performed By: #### E TH, SALYC, ACET, CMP #### [facility] [address] [place] [address] Dr. Erlinda Rivera Platelet mean volume (Bld) [Entitic vol] 11.4 fL Normal 9.5-13.[address] [facility] Comment on above: Performed By: #### E TH, SALYC, ACET, CMP #### [facility] [address] [place] [address] Dr. Erlinda Rivera PLT 150 103/ul Normal 150-450 [facility] Comment on above: Performed By: #### E TH, SALYC, ACET, CMP #### [facility] [address] [place] [address] Dr. Erlinda Rivera RBC 3.08 106/ul Critically low 4.20-5.40 [facility] Comment on above: Performed By: #### E , SALYC, ACET, CMP #### [facility] [address] [place] [address] Dr. Erlinda Rivera WBC 5.7 103/ul Normal 4.0-11.0 [facility] Comment on above: Performed By: #### E , SALMOUNA, ACET, CMP #### [facility] [address] [place] [address] Dr. Erlinda Rivera PROF 14(COMP METB)on 022 Albumin [Mass/Vol] 2.9 g/dL Critically low 3.4-5.0 [facility] Comment on above: Performed By: #### GHASSAN SOTELO #### [facility] [address] [place] [address] Dr. Erlinda Rivera Albumin/Globulin [Mass ratio] 1.0 {ratio} Normal [facility] Comment on above: Performed By: #### GHASSAN SOTELO #### [facility] [address] [place] [address] Dr. Erlinda Rivera ALP [Catalytic activity/Vol] 48 U/L Normal 46-[address] [facility] Comment on above: Performed By: #### GHASSAN SOTELO #### [facility] [address] [place] [address] Dr. Erlinda Rivera ALT [Catalytic activity/Vol] 97 U/L Critically high 14-59 [facility] Comment on above: Performed By: #### GHASSAN SOTELO #### [facility] [address] [place] [address] Dr. Erlinda Rivera Anion gap [Moles/Vol] 8.5 mmol/L Normal [facility] Comment on above: Performed By: #### GHASSAN SOTELO #### [facility] [address] [place] [address] Dr. Erlinda Rivera AST [Catalytic activity/Vol] 112 U/L Critically high 15-37 [facility] Comment on above: Performed By: #### SEBASTIÁN SOTELORO #### [facility] [address] [place] [address] Dr. Erlinda Rivera Bilirubin [Mass/Vol] 0.2 mg/dL Normal 0.2-1.0 [facility] Comment on above: Performed By: #### SEBASTIÁN SOTELORO #### [facility] [address] [place] [address] Dr. Erlinda Rivera Calcium [Mass/Vol] 8.2 mg/dL Critically low 8.5-10.1 [facility] Comment on above: Performed By: #### SEBASTIÁN SOTELORO #### [facility] [address] [place] [address] Dr. Erlinda Rivera Chloride [Moles/Vol] 106 mmol/L Normal 98-[address] [facility] Comment on above: Performed By: #### SEBASTIÁN SOTELORO #### [facility] [address] [place] [address] Dr. Erlinda Rivera CO2 [Moles/Vol] 29.5 mmol/L Normal 21.0-32.[address] [facility] Comment on above: Performed By: #### SEBASTIÁN SOTELORO #### [facility] [address] [place] [address] Dr. Erlinda Rivera Creatinine [Mass/Vol] 0.79 mg/dL Normal 0.55-1.02 [facility] Comment on above: Performed By: #### SEBASTIÁN STOELORO #### [facility] [address] [place] [address] Dr. Erlinda Rievra EGFR-AF KUWAITI >60 Normal >=[address] [facility] Comment on above: Performed By: #### SEBASTIÁN SOTELORO #### [facility] [address] [address] [address] Erlinda Rivera EGFR-NON AF [place]I >60 Normal >=60 [facility] Comment on above: Performed By: #### Sakina DE PAZ UMICRO #### [facility] [address] [address] [address] Erlinda Rivera Globulin (S) [Mass/Vol] 3.0 g/dL Normal T [facility] Comment on above: Performed By: #### Sakina DE PAZ, UMICRO #### [facility] [address] [address] [address] Erlinda Rivera Glucose [Mass/Vol] 86 mg/dL Normal 74-106 [facility] Comment on above: Performed By: #### Sakina DE PAZ UMICRO #### [facility] [address] [address] [address] Erlinda Rivera Potassium [Moles/Vol] 4.0 mmol/L Normal 3.5-5.1 [facility] Comment on above: Performed By: #### Sakina DE PAZ UMICRO #### [facility] [address] [address] [address] Erlinda Rivera Protein [Mass/Vol] 5.9 g/dL Critically low 6.4-8.2 [facility] Comment on above: Performed By: #### Sakina DE PAZ UMICRO #### [facility] [address] [address] [address] Erlinda Rivera Sodium [Moles/Vol] 140 mmol/L Normal 136-145 [facility] Comment on above: Performed By: #### Sakina DE PAZ, UMICRO #### [facility] [address] [address] [address] Erlinda Rivera Urea nitrogen [Mass/Vol] 8.0 mg/dL Normal 7.0-18.0 [facility] Comment on above: Performed By: #### Sakina DE PAZ, UMICRO #### [facility] [address] [address] [address] Erlinda Rivera Urea nitrogen/Creatinine [Mass ratio] 10.1 mg/mg Normal [facility] Comment on above: Performed By: #### E GHASSAN DE PAZ #### [facility] [address] [address] [address] Erlinda Rivera TSHon 03-24-2022 TSH 1.362 uIU/mL Normal 0.358-3.740 [facility] Comment on above: Performed By: #### E GHASSAN DE PAZ #### [facility] [address] [address] [address] Erlinda Rivera Bilirubin Test strip Ql (U)O rdered By: Miah Abreu on 03-21-2022 Bilirubin Ql (U) Negative Negative [facility] Color Auto (U)Ordered By: Haroldo Abreu on 03-21-2022 Color (U) Yellow Yellow [facility] Ketones Auto test strip (U) [Mass/Vol]Ordered By: Miah Abreu on 03-21-2022 Ketones (U) [Mass/Vol] Negative Negative [facility] Nitrite Test strip Ql (U)Ord ered By: Miah Abreu on 03-21-2022 Nitrite Ql (U) Negative Negative [facility] Protein Auto test strip (U) [Mass/Vol]Ordered By: Miah Abreu on 03-21-2022 Protein (U) [Mass/Vol] Negative Negative [facility] Specific gravity Auto test s trip (U) [Rel density]Ordered By: Miah Abreu on 03-21-2022 Specific gravity (U) [Rel density] 1.003 1.001-1.030 [facility] Urine clarity by refractomet ry automatedOrdered By: Miah Abreu on 03-21-2022 Clarity Refractometry automated (U) Clear Clear [facility] Urine glucose measurement by automated test strip (mass/volume)Ordered By: Miah Abreu on 03-21-2022 Glucose Auto test strip (U) [Mass/Vol] Normal mg/dL Normal [facility] Urine hemoglobin detection b y automated test stripOrdered By: Miah Abreu on 03-21-2022 Hemoglobin Auto test strip Ql (U) Negative Negative [facility] Urine leukocyte esterase det ection by automated test stripOrdered By: Miah Abreu on 03-21-2022 Leukocyte esterase Auto test strip Ql (U) Negative Negative [facility] Urobilinogen Auto test strip (U) [Mass/Vol]Ordered By: Miah Abreu on 03-21-2022 Urobilinogen (U) [Mass/Vol] Normal mg/dL Normal [facility] pH Auto test strip (U)Ordere d By: Miah Abreu on 03-21-2022 pH (U) 6.0 [pH] 5.0-9.0 [facility] Cholesterol [Mass/volume] in Serum or PlasmaOrdered By: Miah Abreu on 03-20-2022 Cholesterol [Mass/Vol] 175 mg/dL 140-200 [facility] Comment on above: Chol less than 200 m g/dl low risk Chol 201-239 mg/dl borderline risk Chol 240 mg/dl and greater high risk Cholesterol in LDL Calc [Mas s/Vol]Ordered By: Miah Abreu on 03-20-2022 Cholesterol in LDL [Mass/Vol] 117 mg/dL 0-100 [facility] Comment on above: LDL ATP III CLASSIFI CATION LDL less than 100 mg/dL Optimal LDL 100-129 mg/dL Near or above optimal LDL 130-159 mg/dL Borderline high LDL 160-189 mg/dL High LDL greater than 189 mg/dL Very high Cholesterol in VLDL Calc [Ma ss/Vol]Ordered By: Miah Abreu on 03-20-2022 Cholesterol in VLDL [Mass/Vol] 16 mg/dL [facility] No Panel InformationOrdered By: Miah Abreu on 03-20-2022 25-Hydroxy Vitamin D Total 40.0 ng/mL 30-100 [facility] Comment on above: VITAMIN D STATUS [...] Cholesterol in HDL [Mass/Vol] 42 mg/dL 35-85 [facility] Comment on above: HDL CHOL ATP-III CLA SSIFICATION Cardiovascular Risk HDL > or equal to 60 mg/dL LOW HDL < 40 mg/dL HIGH Serum or plasma total choles terol/high density lipoprotein (HDL) cholesterol mass ratOrdered By: Miah Abreu on 03-20-2022 Cholesterol.total/Rachel sterol in HDL [Mass ratio] 4.2 {ratio} <5.0 [facility] TSH DL <= 0.005 mIU/L QnOrde red By: Miah Abreu on 03-20-2022 TSH Qn 1.08 m[IU]/L 0.45-5.33 [facility] Triglyceride [Mass/volume] i n Serum or PlasmaOrdered By: Miah Abreu on 03-20-2022 Triglyceride [Mass/Vol] 81 mg/dL 35-149 [facility] Comment on above: TRIG ATP III CLASSIF ICATION TRIG less than 150 mg/dL Normal TRIG 150-199 mg/dL Borderline high TRIG 200-500 mg/dL High TRIG greater than 500 mg/dL Very high Standard traceable to the Center for Disease Conrtrol and Prevention (CDC) test method. ACETAMINOPHENon 03-19-2022 Acetaminophen [Mass/Vol] ug/mL Critically low 10.0-30.0 [facility] Comment on above: Performed By: #### E GHASSAN DE PAZ #### [facility] [address] [place] [address] Dr. Erlinda Rivera CBC AUTO DIFFon 03-19-2022 BASO # 0.1 103/ul Normal 0.0-0.1 [facility] Comment on above: Performed By: #### C VDTBH #### [facility] [address] [place] [address] Dr. Erlinda Rivera Basophils/100 WBC (Bld) 0.6 % Normal 0.2-2.0 [facility] Comment on above: Performed By: #### C VDTBH #### [facility] [address] [place] [address] Dr. Erlinda Rivera EO # 0.1 103/ul Normal 0.0-0.[address] [facility] Comment on above: Performed By: #### C VDTBH #### [facility] [address] [place] [address] Dr. Erlinda Rivera Eosinophils/100 WBC (Bld) 0.7 % Critically low 0.9-7.0 [facility] Comment on above: Performed By: #### C VDTBH #### [facility] [address] [place] [address] Dr. Erlinda Rivera Erythrocyte distribution width (RBC) [Ratio] 12.2 % Normal 11.0-15.[address] [facility] Comment on above: Performed By: #### C VDTBH #### [facility] [address] [place] [address] Dr. Erlinda Rivera Hematocrit (Bld) [Volume fraction] 39.5 % Normal 36.0-48.0 [facility] Comment on above: Performed By: #### C VDTBH #### [facility] [address] [place] [address] Dr. Erlinda Rivera Hemoglobin (Bld) [Mass/Vol] 13.2 g/dL Normal 12.0-16.[address] [facility] Comment on above: Performed By: #### C VDTBH #### [facility] [address] [place] [address] Dr. Erlinda Rivera IG # 0.03 10e3/ul Normal 0.00-0.03 [facility] Comment on above: Performed By: #### C VDTBH #### [facility] [address] [place] [address] Dr. Erlinda Rivera IG % 0.3 % Normal 0.0-0.[address] [facility] Comment on above: Performed By: #### C VDTBH #### [facility] [address] [place] [address] Dr. Erlinda Rivera LYMPH # 2.5 103/ul Normal 1.2-3.[address] [facility] Comment on above: Performed By: #### C VDTBH #### [facility] [address] [place] [address] Dr. Erlinda Rivera Lymphocytes/100 WBC (Bld) 26.9 % Normal 20.5-60.0 [facility] Comment on above: Performed By: #### C VDTBH #### [facility] [address] [place] [address] Dr. Erlinda Rivera MANUAL DIFF REQ NO Normal [facility] Comment on above: Performed By: #### C VDTBH #### [facility] [address] [place] [address] Dr. Erlinda Rivera MCH (RBC) [Entitic mass] 34.3 pg Critically high 26.7-34.0 [facility] Comment on above: Performed By: #### C VDTBH #### [facility] [address] [place] [address] Dr. Erlinda Rivera MCHC (RBC) [Mass/Vol] 33.4 g/dL Normal 29.9-35.2 [facility] Comment on above: Performed By: #### C VDTBH #### [facility] [address] [place] [address] Dr. Erlinda Rivera MCV (RBC) [Entitic vol] 102.6 fL Critically high 81.0-99 .0 [facility] Comment on above: Performed By: #### C VDTBH #### [facility] [address] [place] [address] Dr. Erlinda Rivera MONO # 0.8 103/ul Normal 0.3-0.8 [facility] Comment on above: Performed By: #### C VDTBH #### [facility] [address] [place] [address] Dr. Erlinda Rivera Monocytes/100 WBC (Bld) 8.7 % Normal 1.7-12.0 [facility] Comment on above: Performed By: #### C VDTBH #### [facility] [address] [place] [address] Dr. Erlinda Rivera NEUT # 5.9 103/ul Normal 1.4-6.5 [facility] Comment on above: Performed By: #### C VDTBH #### [facility] [address] [place] [address] Dr. Erlinda Rivera Neutrophils/100 WBC (Bld) 62.8 % Normal 43.0-75.[address] [facility] Comment on above: Performed By: #### C VDTBH #### [facility] [address] [place] [address] Dr. Erlinda Rivera Platelet mean volume (Bld) [Entitic vol] 10.6 fL Normal 9.5-13.[address] [facility] Comment on above: Performed By: #### C VDTBH #### [facility] [address] [place] [address] Dr. Erlinda Rivera PLT 213 103/ul Normal 150-[address] [facility] Comment on above: Performed By: #### C VDTBH #### [facility] [address] [place] [address] Dr. Erlinda Rivera RBC 3.85 106/ul Critically low 4.20-5.[address] [facility] Comment on above: Performed By: #### C VDTBH #### [facility] [address] [place] [address] Dr. Erlinda Rivera WBC 9.3 103/ul Normal 4.0-11.[address] [facility] Comment on above: Performed By: #### C VDTBH #### [facility] [address] [place] [address] CHEST W CONon [...] by: MARIPOSA MARTIN Date: 2022-03-19 05:08 Normal [facility] CT CSPINE WO CONon [facility] CT CSPINE WO CON [...] MARIMAR VIVAS Date: 2022-03-19 04:[address] [facility] CT FACIAL BONES WO CONon CT [...] MARIMAR VIVAS Date: 2022-03-19 04:[address] [facility] CT HEAD WO CONon 03-19-2022 CT [...] MARIMAR VIVAS Date: 2022-03-19 04:[address] [facility] Covid-19 PCR ([facility]on 03-03 SARS-CoV-2 (COVID-19) RNA TISHA+probe Ql (Unsp spec) Not detected Normal NOT DETECTED [facility] Comment on above: Result Comment: When [...] for this test is supported by the [place] of Health and Human Service's declaration that [...] #### E TH, SALYC, ACET, CMP #### [facility] [address] [address] [address] Erlinda Rivera DRUG SCREEN RAPID (URINE)on 03-19-2022 AMP Positive Abnormal NEGATIVE [facility] Comment on above: Performed By: #### E RUR, UMICRO #### [facility] [address] [place] [address] Dr. Erlinda Rivera BAR Negative Normal NEGATIVE [facility] Comment on above: Performed By: #### E RUR, UMICRO #### [facility] [address] [place] [address] Dr. Erlinda Rivera BUP Negative Normal NEGATIVE [facility] Comment on above: Performed By: #### E RUR, UMICRO #### [facility] [address] [place] [address] Dr. Erlinda Rivera BZO Positive Abnormal NEGATIVE [facility] Comment on above: Performed By: #### E RUR, UMICRO #### [facility] [address] [place] [address] Dr. Erlinda Rivera DOUGLAS Positive Abnormal NEGATIVE [facility] Comment on above: Performed By: #### E RUR, UMICRO #### [facility] [address] [place] [address] Dr. Erlinda Rivera CUT-OFFS SEE BELOW Normal [facility] Comment on above: Result Comment: AMP [...] Performed By: #### E RUR, UMICRO #### [facility] [address] [place] [address] Dr. Erlinda Rivera DRUG CUT HEADER DRUG CLASS TEST SYSTEM CUT-OFF CONCENTRATIONS ARE FOLLOWS: Normal [facility] Comment on above: Performed By: #### E RUR, UMICRO #### [facility] [address] [place] [address] Dr. Erlinda Rivera mAMP Positive Abnormal NEGATIVE [facility] Comment on above: Performed By: #### E RUR, UMICRO #### [facility] [address] [place] [address] Dr. Erlinda Rivera MTD Negative Normal NEGATIVE [facility] Comment on above: Performed By: #### E RUR UMICRO #### [facility] [address] [place] [address] Dr. Erlinda Rivera OPI Positive Abnormal NEGATIVE [facility] Comment on above: Performed By: #### E RUR UMICRO #### [facility] [address] [place] [address] Dr. Erlinda Rivera OXY Negative Normal NEGATIVE [facility] Comment on above: Performed By: #### E ZANDRA UMICRO #### [facility] [address] [place] [address] Dr. Erlinda Rivera PCP Negative Normal NEGATIVE [facility] Comment on above: Performed By: #### E RUR UMICRO #### [facility] [address] [place] [address] Dr. Erlinda Rivera PPX Negative Normal NEGATIVE [facility] Comment on above: Performed By: #### E BETTER, UMICRO #### [facility] [address] [place] [address] Dr. Erlinda Rivera TCA Negative Normal NEGATIVE [facility] Comment on above: Performed By: #### E RUR UMICRO #### [facility] [address] [place] [address] Dr. Erlinda Rivera THC Positive Abnormal NEGATIVE [facility] Comment on above: Performed By: #### E BETTER UMICRO #### [facility] [address] [place] [address] Dr. Erlinda Rivera ER URINE PROFILEon 2 Bilirubin Ql (U) Negative Normal NEGATIVE [facility] Comment on above: Performed By: #### E RUR UMICRO #### [facility] [address] [place] [address] Dr. Erlinda Rivera Clarity (U) CLEAR Normal CLEAR [facility] Comment on above: Performed By: #### Sakina DE PAZ UMICRO #### [facility] [address] [place] [address] Dr. Erlinda Rivera Color (U) YELLOW Normal YELLOW [facility] Comment on above: Performed By: #### Sakina DE PAZ UMICRO #### [facility] [address] [place] [address] Dr. Erlinda Rivera ERUAHSharon A micrscopic examination will be performed if indicated. Normal [facility] Comment on above: Performed By: #### Sakina DE PAZ UMICRO #### [facility] [address] [place] [address] Dr. Erlinda Rivera Glucose Ql (U) Negative Normal NEGATIVE [facility] Comment on above: Performed By: #### Sakina DE PAZ UMICRO #### [facility] [address] [place] [address] Dr. Erlinda Rivera Hemoglobin Ql (U) Negative Normal NEGATIVE [facility] Comment on above: Performed By: #### Sakina DE PAZ UMICRO #### [facility] [address] [place] [address] Dr. Erlinda Rivera Ketones Ql (U) Negative Normal NEGATIVE [facility] Comment on above: Performed By: #### Sakina DE PAZ UMICRO #### [facility] [address] [place] [address] Dr. Erlinda Rivera LEUKOCYTES Negative Normal NEGATIVE [facility] Comment on above: Performed By: #### Sakina DE PAZ UMICRO #### [facility] [address] [place] [address] Dr. Erlinda Rivera Nitrite Ql (U) Negative Normal NEGATIVE [facility] Comment on above: Performed By: #### Sakina DE PAZ UMICRO #### [facility] [address] [place] [address] Dr. Erlinda Rivera pH (U) 5.5 [pH] Normal 5-9 [facility] Comment on above: Performed By: #### Sakina DE PAZ UMICRO #### [facility] [address] [place] [address] Dr. Erlinda Rivera SPEC GRAVITY 1.010 Normal 1.005-<=1.[address] [facility] [facility] Comment on above: Performed By: #### SEBASTIÁN SOTELORO #### [facility] [address] [place] [address] Dr. Erlinda Rivera UA PROTEIN Negative Normal NEGATIVE/ TRACE [facility] Comment on above: Performed By: #### SEBASTIÁN SOTELORO #### [facility] [address] [place] [address] Dr. Erlinda Rivera UR MICRO IND NOT INDICATED Normal [facility] Comment on above: Performed By: #### SEBASTIÁN SOTELORO #### [facility] [address] [place] [address] Dr. Erlinda Rivera Urobilinogen Qn (U) 0.2 {Shannan'U}/dL Normal 0.2 - 1. 0 [facility] Comment on above: Performed By: #### SEBASTIÁN SOTELORO #### [facility] [address] [place] [address] Dr. Erlinda Rivera ETHANOL (BLD ALC)on 03-19-20 22 ALC NOTE NOTE: 80 mg/dl is th e legal limit for a blood alcohol level Normal [facility] Comment on above: Performed By: #### E TH, SALYC, ACET, CMP #### [facility] [address] [place] [address] Dr. Erlinda Rivera Ethanol [Mass/Vol] mg/dL Normal [facility] Comment on above: Performed By: #### E TH, SALYC, ACET, CMP #### [facility] [address] [place] [address] Dr. Erlinda Rivera PREG HCG QUALon 03-19-2022 , QUAL Negative Normal NEGATIVE [facility] Comment on above: Performed By: #### E TH, SALYC, ACET, CMP #### [facility] [address] [place] [address] Dr. Erlinda Rivera PROF 14(COMP METB)on 022 Albumin [Mass/Vol] 4.0 g/dL Normal 3.4-5.0 [facility] Comment on above: Performed By: #### GHASSAN SOTELO #### [facility] [address] [place] [address] Dr. Erlinda Rivera Albumin/Globulin [Mass ratio] 1.2 {ratio} Normal [facility] Comment on above: Performed By: #### GHASSAN SOTELO #### [facility] [address] [place] [address] Dr. Erlinda Rivera ALP [Catalytic activity/Vol] 53 U/L Normal 46-116 [facility] Comment on above: Performed By: #### GHASSAN SOTELO #### [facility] [address] [place] [address] Dr. Erlinda Rivera ALT [Catalytic activity/Vol] 77 U/L Critically high 14-59 [facility] Comment on above: Performed By: #### GHASSAN SOTELO #### [facility] [address] [place] [address] Dr. Erlinda Rivera Anion gap [Moles/Vol] 8.9 mmol/L Normal [facility] Comment on above: Performed By: #### GHASSAN SOTELO #### [facility] [address] [place] [address] Dr. Erlinda Rivera AST [Catalytic activity/Vol] 75 U/L Critically high 15-37 [facility] Comment on above: Performed By: #### GHASSAN SOTELO #### [facility] [address] [place] [address] Dr. Erlinda Rivera Bilirubin [Mass/Vol] 0.8 mg/dL Normal 0.2-1.[address] [facility] Comment on above: Performed By: #### GHASSAN SOTELO #### [facility] [address] [place] [address] Dr. Erlinda Rivera Calcium [Mass/Vol] 8.7 mg/dL Normal 8.5-10.1 [facility] Comment on above: Performed By: #### GHASSAN SOTELO #### [facility] [address] [place], [place] [id number] Dr. Erlinda Rivera Chloride [Moles/Vol] 103 mmol/L Normal 98-107 [facility] Comment on above: Performed By: #### GHASSAN SOTELO #### [facility] [address] [place] [address] Dr. Erlinda Rivera CO2 [Moles/Vol] 30.9 mmol/L Normal 21.0-32.0 [facility] Comment on above: Performed By: #### GHASSAN SOTELO #### [facility] [address] [place] [address] Dr. Erlinda Rivera Creatinine [Mass/Vol] 0.90 mg/dL Normal 0.55-1.02 [facility] Comment on above: Performed By: #### GHASSAN SOTELO #### [facility] [address] [place] [address] Dr. Erlinda Rivera EGFR-AF [place]I >60 Normal >=60 [facility] Comment on above: Performed By: #### SEBASTIÁN SOTELORO #### [facility] [address] [place] [address] Dr. Erlinda Rivera EGFR-NON AF [place] >60 Normal >=60 [facility] Comment on above: Performed By: #### GHASSAN SOTELO #### [facility] [address] [place] [address] Dr. Erlinda Rivera Globulin (S) [Mass/Vol] 3.4 g/dL Normal [facility] Comment on above: Performed By: #### SEBASTIÁN SOTELORO #### [facility] [address] [place] [address] Dr. Erlinda Rivera Glucose [Mass/Vol] 128 mg/dL Critically high 74-106 [facility] Comment on above: Performed By: #### SEBASTIÁN SOTELORO #### [facility] [address] [place] [address] Dr. Erlinda Rivera Potassium [Moles/Vol] 3.8 mmol/L Normal 3.5-5.1 [facility] Comment on above: Performed By: #### E RUR, UMICRO #### [facility] [address] [address] [address] Erlinda Rivera Protein [Mass/Vol] 7.4 g/dL Normal 6.4-8.[address] [facility] Comment on above: Performed By: #### E ZANDRA, UMICRO #### [facility] [address] [address] [address] Erlinda Rivera Sodium [Moles/Vol] 139 mmol/L Normal 136-[address] [facility] Comment on above: Performed By: #### E ZANDRA, UMICRO #### [facility] [address] [address] [address] Erlinda Rivera Urea nitrogen [Mass/Vol] 7.0 mg/dL Normal 7.0-18.0 [facility] Comment on above: Performed By: #### Sakina DE PAZ, UMICRO #### [facility] [address] [place] [address] Dr. Erlinda Rivera Urea nitrogen/Creatinine [Mass ratio] 7.8 mg/mg Normal [facility] Comment on above: Performed By: #### Sakina DE PAZ, UMICRO #### [facility] [address] [address] [address] Erlinda Rivera SALICYLATEon 03-19-2022 SALICYLATE <2.8 Normal <=19.[address] [facility] Comment on above: Performed By: #### Sakina DE PAZ, UMICRO #### [facility] [address] [address] [address] Erlinda Rivera XR CHEST 1 Von [...] acute cardiopulmonary process identified. Electronically authenticated by: MAIRPOSA MARTIN Date: 2022-03-19 04:21 Normal [facility] Vital Signs Date Time Vital Sign Value Performing Clinician Facility 01-20-2024 07:30-0400 Body temperature 97.6 [degF] [employer] 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 Work Phone: [facility] 01-20-2024 07:30-0400 Diastolic blood pressure 69 mm[Hg] [employer] 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 Work Phone: [facility] 01-20-2024 07:30-0400 Heart rate 70 /min [employer] 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 Work Phone: [facility] 01-20-2024 07:30-0400 Respiratory rate 18 /min [employer] 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 Work Phone: [facility] 01-20-2024 07:30-0400 SaO2% (BldA) [Mass fraction] 97 % [employer] 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 Work Phone: [facility] 01-20-2024 07:30-0400 Systolic blood pressure 104 mm[Hg] [employer] 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 Work Phone: [facility] 01-18-2024 14:08-0400 Body height 157.48 cm [employer] 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 Work Phone: [facility] 01-18-2024 04:17-0400 Body weight 90.71 kg [employer] 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 Work Phone: [facility] 12-01-2023 11:02-0500 Body height 157.5 cm 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: [facility] 12-01-2023 11:02-0500 Body mass index (BMI) [Ratio] 38.07 kg/m2 Michelle Daniels 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: [facility] 12-01-2023 11:02-0500 Body temperature 97.59 [degF] 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: [facility] 12-01-2023 11:02-0500 Body weight 94.44 kg 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: [facility] 12-01-2023 11:02-0500 Diastolic blood pressure 92 mm[Hg] 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: [facility] 12-01-2023 11:02-0500 Heart rate 101 /min 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: [facility] 12-01-2023 11:02-0500 Respiratory rate 22 /min 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: [facility] 12-01-2023 11:02-0500 SaO2% (BldA) [Mass fraction] 96 % 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: [facility] 12-01-2023 11:02-0500 Systolic blood pressure 132 mm[Hg] 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: [facility] 10-13-2023 08:30-0500 Diastolic blood pressure 72 mm[Hg] [facility] 10-13-2023 08:30-0500 Systolic blood pressure 129 mm[Hg] [facility] 10-13-2023 07:30-0500 Body temperature 97.9 [degF] [place] 10-13-2023 07:30-0500 Heart rate 102 /min [facility] 10-13-2023 07:30-0500 SaO2% (BldA) [Mass fraction] 95 % [facility] 10-12-2023 19:48-0500 Respiratory rate 18 /min [place] 10-11-2023 09:40-0500 Body height 157.48 cm [facility] 10-10-2023 12:19-0500 Body weight 94.34 kg [facility] 08-26-2023 07:30-0500 Body temperature 97.9 [degF] [place] 08-26-2023 07:30-0500 Diastolic blood pressure 87 mm[Hg] [facility] 08-26-2023 07:30-0500 Heart rate 83 /min [facility] 08-26-2023 07:30-0500 Respiratory rate 16 /min [place] 08-26-2023 07:30-0500 SaO2% (BldA) [Mass fraction] 97 % [facility] 08-26-2023 07:30-0500 Systolic blood pressure 134 mm[Hg] [facility] 08-24-2023 14:51-0500 Body height 157.48 cm [facility] 08-24-2023 01:08-0500 Body weight 97.52 kg [facility] 05-11-2023 14:45-0400 Body height 157.48 cm [employer] Other [employer] [facility] [employer] Other 05-11-2023 14:45-0400 Body mass index (BMI) [Ratio] 36.1 kg/m2 [employer] Other [employer] Other 05-11-2023 14:45-0400 Body weight 89.54 kg [employer] Other [employer] [facility] [employer] Other 05-01-2023 07:24-0400 Body temperature 97.9 [degF] MD Miah Abreu Work Phone: [facility] 05-01-2023 07:24-0400 Diastolic blood pressure 91 mm[Hg] MD Miah Abreu Work Phone: [facility] 05-01-2023 07:24-0400 Heart rate 86 /min MD Miah Abreu Work Phone: [facility] 05-01-2023 07:24-0400 Respiratory rate 16 /min MD Miah Abreu Work Phone: [facility] 05-01-2023 07:24-0400 SaO2% (BldA) [Mass fraction] 94 % MD Miah Abreu Work Phone: [facility] 05-01-2023 07:24-0400 Systolic blood pressure 141 mm[Hg] MD Miah Abreu Work Phone: [facility] 04-25-2023 15:03-0400 Body height 157.48 cm MD Miah Abreu Work Phone: [facility] 04-25-2023 09:00-0400 Body weight 91.98 kg MD Miah Abreu Work Phone: [facility] 04-17-2023 07:30-0400 Body temperature 98 [degF] MD Miah Abreu Work Phone: [facility] 04-17-2023 07:30-0400 Diastolic blood pressure 92 mm[Hg] MD Miah Abreu Work Phone: [facility] 04-17-2023 07:30-0400 Heart rate 84 /min MD Miah Abreu Work Phone: [facility] 04-17-2023 07:30-0400 Respiratory rate 17 /min MD Miah Abreu Work Phone: [facility] 04-17-2023 07:30-0400 SaO2% (BldA) [Mass fraction] 97 % MD Miah Abreu Work Phone: [facility] 04-17-2023 07:30-0400 Systolic blood pressure 126 mm[Hg] MD Miah Abreu Work Phone: [facility] 04-13-2023 14:37-0400 Body height 157.48 cm MD Miah Abreu Work Phone: [facility] 04-13-2023 07:57-0400 Body weight 87.54 kg MD Miah Abreu Work Phone: [facility] 09-01-2022 07:30-0500 Body temperature 97.7 [degF] [place] 09-01-2022 07:30-0500 Diastolic blood pressure 83 mm[Hg] [facility] 09-01-2022 07:30-0500 Heart rate 78 /min [facility] 09-01-2022 07:30-0500 Respiratory rate 16 /min [place] 09-01-2022 07:30-0500 SaO2% (BldA) [Mass fraction] 96 % [facility] 09-01-2022 07:30-0500 Systolic blood pressure 132 mm[Hg] [facility] 08-30-2022 15:01-0500 Body height 157.48 cm [facility] 08-30-2022 12:17-0500 Body weight 86.22 kg [facility] 06-12-2022 07:30-0400 Body temperature 97.6 [degF] [place] 06-12-2022 07:30-0400 Diastolic blood pressure 68 mm[Hg] [facility] 06-12-2022 07:30-0400 Heart rate 76 /min [facility] 06-12-2022 07:30-0400 Respiratory rate 18 /min [place] 06-12-2022 07:30-0400 SaO2% (BldA) [Mass fraction] 98 % [facility] 06-12-2022 07:30-0400 Systolic blood pressure 105 mm[Hg] [facility] 06-08-2022 14:29-0400 Body height 157.48 cm [facility] 06-07-2022 09:00-0400 Body weight 81.8 kg [facility] 03-23-2022 07:30-0400 Body temperature 97.6 [degF] [place] 03-23-2022 07:30-0400 Diastolic blood pressure 79 mm[Hg] [facility] 03-23-2022 07:30-0400 Heart rate 76 /min [facility] 03-23-2022 07:30-0400 Respiratory rate 16 /min [place] 03-23-2022 07:30-0400 SaO2% (BldA) [Mass fraction] 95 % [facility] 03-23-2022 07:30-0400 Systolic blood pressure 118 mm[Hg] [facility] 03-22-2022 16:06-0400 Body height 157.48 cm [facility] 03-22-2022 14:29-0400 Body weight 83 kg [facility] 03-19-2022 14:20-0400 Body mass index (BMI) [Ratio] 29.6 kg/m2 [facility] 07-05-2019 07:38-0400 Body Temperature 97.81 [degF] [place] 07-05-[place] 07:38-0400 BP Diastolic 48 mm[Hg] [place], [place] 07-05-2019 07:38-0400 BP Systolic 108 mm[Hg] [place] 07-05-2019 07:38-0400 Pulse (Heart Rate) 82 /min [place], [place] 07-05-2019 07:38-0400 Pulse Oximetry 98 % [place] 07-05-2019 07:38-0400 Respiratory Rate 14 /min [facility] MD [place], [place] 07-02-2019 00:30-0400 BMI (Body Mass Index) 35.67 kg/m2 [facility] [place] 07-02-2019 00:30-0400 Body weight 88.45 kg [place], [place] 07-02-2019 00:30-0400 Height 157.5 cm Branden [place], [place] Encounters Encounter Date Encounter Type Care Provider Facility Start: 04-12-2024 End: 04-12-2024 ambulatory CAM BADILLO Not Available Start: 03-22-2024 End: 03-22-2024 ambulatory CAM BADILLO Not Available Start: 03-15-2024 End: 03-15-2024 ambulatory CAM BADILLO Not Available Start: 03-08-2024 End: 03-08-2024 ambulatory CAM BADILLO Not Available Start: 02-17-2024 End: 02-17-2024 ambulatory CAM BADILLO Not Available Start: 02-07-2024 End: 02-07-2024 ambulatory CAM BADILLO Not Available Start: 01-18-2024 ambulatory NON STAFF Facility:[facility] Start: 01-18-2024 Non-patient / Non-visit [employer] A gayathri Bowser Work Phone: [facility] Work Phone: Start: 01-18-2024 End: 01-20-2024 Evaluation and management of inpatient [employer] 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 Work Phone: [address] Work Phone: Start: 01-18-2024 End: 01-18-2024 Emergency department patient visit [facility] Start: 01-18-2024 [facility] Start: 12-22-2023 Refill Rachel Rodriguez [facility] Start: 12-05-2023 Telephone encounter Jennifer Santiago [facility] Start: 12-02-2023 End: 12-03-2023 ambulatory [facility] Start: 12-02-2023 End: 12-02-2023 ambulatory [facility] Start: 12-02-2023 End: 12-02-2023 ambulatory CAM BADILLO Not Available Start: 12-01-2023 End: 12-02-2023 ambulatory [facility] Start: 12-01-2023 End: 12-01-2023 ambulatory [facility] Start: 12-01-2023 End: 12-01-2023 Office outpatient new 45 minutes Michelle Daniels 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 Comment on above: [...] Available Start: 11-15-2023 [employer]amboo flowsheet Cam Badillo [employer] [facility] Start: 11-15-2023 [employer]amboo flowsheet Cam Badillo [employer] [facility] Start: 11-15-2023 End: 11-15-2023 ambulatory CAM BADILLO Not Available Start: 11-10-2023 Bamboo flowsheet Cam Badillo [employer] [facility] Start: 11-10-2023 Bamboo flowsheet Cam Badillo [employer] [facility] Start: 11-10-2023 End: 11-10-2023 ambulatory CAM BADILLO Not Available Start: 11-03-2023 End: 11-03-2023 ambulatory CAM BADILLO Not Available Start: 10-21-2023 End: 10-21-2023 ambulatory CAM BADILLO Not Available Start: 10-10-2023 End: 10-13-2023 Evaluation and management of inpatient [facility] Phone: Start: 09-21-2023 End: 09-22-2023 ambulatory CMA BADILLO Not Available Start: 09-15-2023 End: 09-16-2023 ambulatory CAM BADILLO Not Available Start: 09-08-2023 End: 09-08-2023 ambulatory CAM BADILLO Not Available Start: 08-23-2023 End: 08-26-2023 Evaluation and management of inpatient [facility] [employer] Work Phone: Start: 08-17-2023 End: 08-17-2023 ambulatory CAM BADILLO Not Available Start: 05-11-2023 End: 05-11-2023 ambulatory Efrain Alcazar II Other [employer] Other Start: 05-11-2023 Office outpatient ne w 45 minutes Efrain Alcazar II [facility] Start: 04-23-2023 End: 05-01-2023 Evaluation and management of inpatient MD Miah Abreu Work Phone: [facility] Work Phone: Start: 04-13-2023 End: 04-17-2023 Evaluation and management of inpatient MD Miah Abreu Work Phone: [facility] Work Phone: Start: 09-30-2022 End: 09-30-[address] DOCTOR NAGY Facility:[facility] Start: 09-07-2022 End: 09-07-[address] YARON LANG Facility:[facility] Start: 08-29-2022 End: 09-01-2022 Evaluation and management of inpatient [facility] Start: 06-06-2022 End: 06-12-2022 Evaluation and management of inpatient [facility] Start: 06-06-2022 End: 06-06-2022 ambulatory OTTO SIEGEL Facility:[facility] Start: 04-06-2022 End: 04-07-2022 ambulatory JUAN LUISJACKIE WHITING [facility] Start: 04-06-2022 End: 04-06-2022 Subsequent hospital visit by physician Branden Vazquez MD Work Phone: [facility] Start: 03-24-2022 End: 03-25-2022 ambulatory EDY PERDOMO Facility:[facility] Start: 03-19-2022 End: 03-23-2022 Evaluation and management of inpatient [facility] Start: 03-19-2022 End: 03-19-[address] DOCTOR NAGY Facility:[facility] Start: 07-02-2019 End: 07-05-2019 Evaluation and management of inpatient PREM V [facility] Start: 07-01-2019 Patient encounter procedure Branden MORELOS Admitting Comment on above: N/A Start: 04-04-2017 End: 04-05-2017 Ambulatory BENJI BURKS Facility:[facility] Procedures Date Procedure Procedure Detail Performing Clinician Start: 12-01-2023 Adult depression screening assessment 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 APRN-JAVA FRONT END WEB DEVELOPER Work Phone: Start: 11-15-2023 End: 11-15-2023 Psychotherapy [...] minutes PTSD (post-traumatic stress disorder) (CMS/HCC) Cam LARSEN Comment on above: PTSD (post-traumatic stress disorder) (CMS/HCC); Opioid dependence in remission (CMS/HCC); Methamphetamine dependence in remission (CMS/HCC); Alcohol dependence in remission (CMS/HCC); Attention deficit hyperactivity disorder (ADHD), combined type (CMS/HCC) Start: 10-10-2023 Urine culture Start: 04-23-2023 Aerobic microbial culture MD Miah Abreu Work Phone: Start: 04-06-2022 Antibody hiv-1&hiv-2 single result Juan Luis Whiting GRINDER MACHINE SETTER - [employer] FRONT END WEB DEVELOPER Work Phone: Start: 04-06-2022 Comprehensive metabo lic panel Juan Luis Whiting GRINDER MACHINE SETTER - JAVA FRONT END WEB DEVELOPER Work Phone: Start: 04-06-2022 Smr prim src wet john nt nfct agt Juan Luis Whiting GRINDER MACHINE SETTER - JAVA FRONT END WEB DEVELOPER Work Phone: Start: 04-06-2022 T. PALLIDUM AB Juan Luis cochran GRINDER MACHINE SETTER - JAVA FRONT END WEB DEVELOPER Work Phone: Start: 07-05-2019 DISCHARGE PATIENT AMIE [...] Td Vaccines (2 - Td or Tdap) [facility] Start: 11-30-2024 Adult BMI Screening Adult BMI Screen ing [facility] Start: 11-30-2024 Depression Screening Depression Scre ening [facility] Start: 11-30-2024 Tobacco Screening Tobacco Screening [facility] Start: 01-20-2024 [facility] Start: 01-18-2024 Referral to [facility] Start: 01-18-2024 Hospital admission [facility] Start: 11-21-2023 End: 11-21-2023 Social Work 11/21/2023 11:00 AM EST Social Work [facility] [address] [place] [facility] [address] Cam Badillo, [facility] [address] [place] [address] [facility] Start: 11-15-2023 End: 11-15-2023 Social Work [facility] Comment on above: Arrived Start: 11-10-2023 End: 11-10-2023 Social Work 11/10/2023 11:00 AM EST Social Work [facility] [address] [place] [facility] [address] Cam Badillo, [facility] [address] [place] [address] Arrived [facility] Comment on above: Arrived Start: 10-13-2023 [facility] Start: 10-10-2023 Referral to [facility] Start: 10-10-2023 Hospital admission [facility] Start: 08-26-2023 [facility] Start: 08-25-2023 [facility] Start: 08-24-2023 Referral to clinical station helper [facility] Start: 08-24-2023 Referral to [employer] [facility] Start: 08-24-2023 Hospital admission [facility] Start: 08-24-2023 [facility] Start: 06-03-2023 COVID-19 Vaccine ( season) COVID-19 Vaccine ( season) [facility] Start: 06-03-2023 Influenza vaccination [facility] Start: 2023 Administration of varicella zoster vaccine Zoster (Shingles) Vaccine (1 of 2) [employer] Start: 05-01-2023 [facility] Start: 04-25-2023 Consultation [facility] Start: 04-23-2023 Referral to clinical station helper [facility] Start: 04-23-2023 Hospital admission [facility] Start: 04-17-2023 [facility] Start: 04-13-2023 Referral to [facility] Start: 04-13-2023 Sleep disorder assessment [facility] Start: 04-13-2023 Hospital admission [facility] Start: 09-01-2022 [facility] Start: 08-29-2022 Hospital admission [facility] Start: 06-12-2022 [facility] Start: 06-06-2022 Referral to [facility] Start: 06-06-2022 Hospital admission [facility] Start: 06-03-2022 Influenza vaccination Flu vaccine (# 1) [employer] Start: 03-23-2022 [facility] Work Phone: Start: 03-19-2022 Hospital admission [facility] Work Phone: Start: 06-03-2019 Influenza vaccination Flu vaccine (# 1) [employer] [place], [place] Start: 2018 Screening for malign ant neoplasm of colon [facility] [employer] Start: 2013 Lipid panel Lipids [facility] Start: 2013 Lipid screen Lipid screen [place], [place] Start: 2013 Screening for malign ant neoplasm of breast Mammogram [facility] Start: 2003 Screening for malign ant neoplasm of cervix [facility] Start: 1994 Cervical cancer screen Cervical canc er screen [place], [place] Start: 1994 Screening for malign ant neoplasm of cervix Pap smear [facility] Start: 1992 DTaP/Tdap/Td vaccine (1 - Tdap) DTaP/Tdap/Td vaccine (1 - Tdap) [facility] Start: 1991 Adult BMI Follow Up Plan Adult BMI Follow Up Plan [facility] Start: 1991 Hepatitis C screening Hepatitis C sc reen [facility] Start: 1988 HIV screen HIV screen [place], [place] Start: 1988 HIV screening HIV screen [facility] Start: 1985 Depression Monitoring Depression Mon [facility] Start: 1979 Pneumococcal 0-64 ye ars Vaccine (1 - PCV) Pneumococcal 0-64 years Vaccine (1 - PCV) [facility] Start: 1979 Pneumococcal 0-64 ye ars Vaccine (1 of 1 - PPSV23) Pneumococcal 0-64 years Vaccine (1 of 1 - PPSV23) [place], [place] Start: 1978 COVID-19 Vaccine (1) COVID-19 Vaccin e (1) [facility] Start: 1973 Screening for malign ant neoplasm of colon [facility] Start: 1973 Tobacco Counseling Tobacco Counselin g [facility] End: 04-06-2022 C.trachomatis N.gonorrhoeae DNA [facility] Work Phone: Comment on above: Once for 1 Occurrenc es starting 04/06/2022 until 04/06/2022 Hepatitis A virus antibody, IgM type [facility] Hepatitis B core ant ibody measurement, IgM type [facility] Hepatitis B virus estrada rface Ag [Presence] in Serum or Plasma by Immunoassay [facility] End: 04-06-2022 Hepatitis C RNA, quantitative, PCR DWAIN AMAURI [facility] Work Phone: Comment on above: Once for 1 Occurrenc es starting 04/06/2022 until 04/06/2022 Hepatitis C virus Ig G Ab [Presence] in Serum or Plasma by Immunoassay [facility] Hepatitis C virus RN A [log units/volume] (viral load) in Serum or Plasma by TISHA with probe detection [facility] Hepatitis C virus RN A [Units/volume] (viral load) in Serum or Plasma by TISHA with probe detection [facility] Patient Education [facility] Work Phone: Patient referral [facility] Work Phone: Immunizations Immunization Date Immunization Notes Care Provider Jl [facility] 09-11-2022 COVID-19 Pfizer (bivalent) Efrain [place] II Other [facility] 07-13-2022 influenza, injectabl e, quadrivalent, preservative free Efrain Ottoniel II Other [facility] 07-13-2022 influenza virus vaccine, unspecified formulation Cam Badillo [facility] 09-23-2021 COVID-19 Vaccine Pfizer - Documentation Purposes Only Efrain Ottoniel II Other [facility] 07-22-2021 influenza, injectabl e, quadrivalent, preservative free [facility] 02-16-2021 COVID-19 Vaccine Codey - Documentation Purposes Only Efrain [place] II Other [facility] 12-04-2019 Influenza, injectabl e, Madin Dacia Canine Kidney, preservative free, quadrivalent [facility] 09-09-2017 tetanus toxoid, reduced diphtheria toxoid, and acellular pertussis vaccine, adsorbed Efrain [place] II Other [employer] NEGATED: Highlighted row has not occurred!07-31-2018 influenza, injectable, quadrivalent, preservative free [facility] Payers Date Payer Category Payer Self-pay [id number] 2022 Medicaid [id number] 2022 Medicaid [id number] 2014 Unknown [employer] xxxxxxxxxxx 2014-Present [phone] [address] [place] [address] xxxxxxxxxxx [id number]. [id number] 1973 Unknown [id number] 2.16.840.1.177854.3.579.2.176 1973 Unknown [id number] 2.16.840.1.550963.3.579.2.173 1973 Unknown [id number] 2.16.840.1.156211.3.579.2.593 1973 Unknown [id number] 2.16.840.1.499899.3.579.2.593 1973 Unknown [id number] 2.16.840.1.508831.3.579.2.593 1973 Unknown [id number] 2.16.840.1.101607.3.579.2.593 1973 Unknown [id number] 2.16.840.1.533167.3.579.2.593 1973 Unknown [id number] 2.16.840.1.951890.3.579.2.1286 1973 Unknown [id number] 2.16.840.1.240140.3.579.2.1286 1973 Unknown [id number] 2.16.840.1.494812.3.579.2.1286 1973 Unknown [id number] 2.16.840.1.967654.3.579.2.1286 1973 Unknown [id number] 2.840.1.599231.3.579.2.1285 1973 Unknown [id number] 2..840.1.658918.3.579.2.1258 1973 Unknown [id number] 2.840.1.445199.3.579.2.1258 1973 Unknown [id number] 2.840.1.043840.3.579.2.1258 1973 Unknown [id number] 2.840.1.498404.3.579.2.1258 1973 Unknown [id number] 2.840.1.420855.3.579.2.1258 1973 Unknown [id number] 2840.1.145285.3.579.2.1258 1973 Unknown [id number] 2.840.1.651020.3.579.2.1258 1973 Unknown [id number] 2840.1.514463.3.579.2.1258 1973 Unknown [id number] 840.1.044433.3.579.2.1258 1973 Unknown [id number] 2840.1.837763.3.579.2.1258 1973 Unknown [id number] 2.840.1.109623.3.579.2.1258 1973 Unknown [id number] 2840.1.752668.3.579.2.1258 1973 Unknown [id number] 2.840.1.579649.3.579.2.1258 1973 Unknown [id number] 2840.1.920409.3.579.2.1258 1973 Unknown [id number] 2840.1.177137.3.579.2.1259 1973 Unknown [id number] 2.16.840.1.357842.3.579.2.1259 1959 Medicaid [id number] 1959 Unknown [id number] Unknown [id number] 2.16.840.1.042288.3.579.2.531 Unknown [id number] 2.16.840.1.572533.3.579.2.531 Unknown [id number] 2.16.840.1.590680.3.579.2.531 Unknown [id number] 2.16.840.1.516918.3.579.2.531 Social History Date Type Detail Facility Start: 09-09-2017 End: 07-03-2019 Tobacco smoking status [facility] Light tobacco smoker [facility] [employer] End: 05-23-2018 History of tobacco use Cigarette Smoker [place], [place] Start: 07-03-2019 End: 11-13-2020 Cigarettes smoked current (pack per day) - Reported [place], [place] Start: 07-03-2019 End: 11-13-2020 Alcohol intake Yes [place], [place] Start: 09-09-2017 [facility] [place] [place] Start: 1975 Sex Assigned At Not on file M [place], [place] Start: 09-09-2017 End: 12-01-2023 Tobacco use and exposure Smokeless tobacco non-user [employer] Phone: Start: 07-03-2019 Alcohol intake Current drinke r of alcohol (finding) [employer] Phone: Start: 09-09-2017 History SDOH Alcohol Comment occassional [employer] Phone: Start: 06-07-2022 End: 01-18-2024 Tobacco smoking status VAIS Smoker (finding) [facility] Start: 1975 Sex Assigned At Female F [facility] Start: 08-30-2022 End: 08-24-2023 Tobacco smoking status NHIS Ex-smoker (finding) [facility] Start: 04-28-2023 Tobacco smoking stat us VAIS Never smoked tobacco (finding) [facility] Tobacco smoking stat [facility] Tobacco smoking consumption unknown [facility] Start: 12-01-2023 Tobacco smoking stat [facility] Occasional tobacco smoker [facility] Start: 12-01-2023 Alcohol intake Ex-drinker (finding) [facility] [employer] [facility] Adolescent depressio n screening assessment 1 [facility] Start: 03-05-2021 Alcohol Comment beer and liquour [facility] [employer] [facility] Goals Date Patient Goal Desired Activity /State Personal health goal Comment on above: Formatting of this n ote might be different from the original. Evaluation of progress towards goal: admitted to hospital Functional Status Date Assessment Result Facility 01-20-2024 Functional status Patient at Baseline [facility] Work Phone: 10-13-2023 Functional status Patient at Baseline [facility] Work Phone: 08-26-2023 Functional status Patient at Baseline [facility] Work Phone: 05-01-2023 Functional status Patient at Baseline [facility] Work Phone: 04-17-2023 Functional status Patient at Baseline [facility] Work Phone: 09-01-2022 Functional status Patient at Baseline [facility] Work Phone: 06-12-2022 Functional status Patient at Baseline [facility] Work Phone: 03-23-2022 Functional status Patient at Baseline [facility] Work Phone: Mental Status Date Assessment Result Facility 01-20-2024 Cognitive function Cognitive Sta tus Patient at Baseline [facility] Work Phone: 10-13-2023 Cognitive function Cognitive Sta tus Patient at Baseline [facility] Work Phone: 08-26-2023 Cognitive function Cognitive Sta tus Patient at Baseline [facility] Work Phone: 05-01-2023 Cognitive function Cognitive Sta tus Patient at Baseline [facility] Work Phone: 04-17-2023 Cognitive function Cognitive Sta tus Patient at Baseline [facility] Work Phone: 09-01-2022 Cognitive function Cognitive Sta tus Patient is Progressing Toward Baseline [facility] Work Phone: 06-12-2022 Cognitive function Cognitive Sta tus Patient at Baseline [facility] Work Phone: 03-23-2022 Cognitive function Cognitive Sta tus Patient at Baseline [facility] Work Phone: Clinical Notes 06-07-2022 to 01-20-2024 Note Date & Type Note Facility 01-20-2024 Discharge summary Note Date/Time January 20, 2024 11:16am [facility] [address] [place] [address] Discharge Summary Signed Patient: Loyda Scott MR#: [id number] : 1975 Acct:[id number] Age/Sex: 48 / F Adm Date: 4 Loc: Room: [address] [place] [address]: Olvin Rollins MD Copies to: MD Michelle Ibanez, [employer]~ Providers Date of Discharge: 01/20/24 Discharging Provider: Olvin Rollins Primary Care Provider: 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 Consults: 01/18/24 04:37 Consult to Case Management Routine Comment: CM 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 I [...] episodes. Pertinent stressors include recently moved to [place] and has relapsed on cocaine.States she feels [...] unit milieu. She has been working with pillowcase turner on her aftercare she agreed to continuethe [...] Instructions: Important Contact Information You can call [facility] at [phone] any time day or night if you have emergent questions or question regarding discharge instructions. If at any time you are feeling an increase inyour psychiatric symptoms, call your physician or behavioral healthcare provider. If any time you have thoughts of harming yourself or others contact one of the following: Call 8-8 (available 25/04) Crisis Text Line (available 25/04) text 4HOPE to [phone] [facility] Hope Line (available 8 a.m. Midnight) call [phone] ([phone]) Prescriptions: No Action alprazolam 1 mg tablet [...] [Other] (Counseling with Cam. ) 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, [employer] [Primary Care Provider] - (Contact your PCP with medical needs. ) Exam Physical Exam Vital Signs: Temp Pulse Resp BP Pulse Ox O2 Del Method 97.6 F 70 18 104/69 97 Room Air 01/20/24 07:30 01/20/24 07:30 01/20/24 07:30 01/20/24 07:30 01/20/24 07:30 01/20/24 07:30 Documented By: Olvin Rollins MD 4 1115 Signed By: <Electronically signed by Olvin Rollins MD> 01/20/24 1112 [facility] Work Phone: 1(577) 292-387404-19-2024 Hospital Discharge instructions Additional Instructions Important Contact Information You can call [facility] at [phone] any time day or night if you have emergent questions or question regarding discharge instructions. If at any time you are feeling an increase in your psychiatric symptoms, call your physician or behavioral healthcare provider. If any time you have thoughts of harming yourself or others contact one of the following: Call 9-8-8 (available 25/04) Crisis Text Line (available 25/04) text 4HOPE to [phone] [facility] Hope Line (available 8 a.m. Midnight) call [phone] ([phone]) [facility] Work Phone: 1(542) 745-461504-18-2024 Progress note Author Olvin tavares [facility] January 19, 2024 7:59am Note Date/Time January 19, 2024 7:5 2am [facility] [address] [place] [address] Psychiatry Progress Note Signed Patient: Loyda Scott MR#: [id number] : 1975 Acct:[id number] Age/Sex: 48 / F Adm Date: 4 Loc: Room: [address] [place] [address] Type : ADM IN Attending Dr: Olvin [...] provided. Documented By: Olvin Rollins MD 4 [id number] Signed By: <Electronically signed by Olvin Rollins MD> 01/19/24 6671 [facility] Work Phone: 1(593) 119-485804-17-2024 History and physical note Author Olvin tavares [facility] January 18, 2024 10:05am Note Date/Time January 18, 2024 10: 05am [facility] [address] [place] [address] Psychiatry H&P Signed Patient: Loyda Scott MR#: [id number] : 1975 Acct:[id number] Age/Sex: 48 / F Adm Date: 4 Loc: Room: [address] [place] [address] Type: ADM IN Attending Dr: Olvin Rollins [...] stopping taking Wellbutrin after her prescriber at [place] said it can worsen her anxiety. I [...] episodes. Pertinent stressors include recently moved to [place] and has relapsed on cocaine.States she feels [...] strong, equal bilaterally. CNXII: Tongue protrusion midline [facility] Medical History (Updated 10/21/23 @ 00:00 by [...] signed by Olvin Rollins MD> 01/18/24 1005 [facility] Work Phone: 1(496) 451-610403-21-2024 Miscellaneous Notes* Telephone Encounter - Rachel Rodriguez CMA - 12/22/2023 10:42 AM EDT Pharmacy is requesting 90 day refill please documented [facility] [id number] Telephone encounter Note* Telephone Encounter - Rachel Rodriguez CMA - 12/22/2023 10:42 AM EDT Pharmacy is requesting 90 day refill please [facility]03-04-2024 Miscellaneous Notes* Telephone Encounter - Jennifer [...] not have an questions. documented [facility]-2024 Telephone encounter Note* Telephone Encounter - [...] Video/phone visit would be fine. Thank you. [employer]03-04-2024 Telephone encounter Note* Telephone Encounter - Jennifer Santiago CMA - 12/05/2023 8:58 AM EST Called and informed patient. She states she does not want the Hep C at this time. She states understanding the rest and did not have an questions. [employer]02-29-2024 History of Present illness Narrative* 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, TANNER-AUDI - 12/01/2023 11:00 AM EST Subjective Patient ID: Loyda Scott is a 48 y.o. female. HPI Loyda presents to the office to establish care. [place] in [place], but she would like someone closer to [...] 05/16/2017 Performed by Yusuf Campuzano MD at [facility] SURGERY ANTERIOR CERVICAL DISCECTOMY W/ FUSION C5 and C6 CERVICAL FUSION SECTION 12/05/2009 D AND C HYSTEROSCOPY N/A 05/16/2017 Performed by Yusuf Campuzano MD at [facility] SURGERY HYSTERECTOMY complete Family History Problem Relation [...] [place] 12/03/23 2303 [facility]24 Discharge summary Author Miah Abreu [facility] October 13, 2023 11:51am Note Date/Time October 13, 2023 1 1:49am [facility] [address] [place] [address] Discharge Summary Signed Patient: Loyda Scott MR#: [id number] : 1975 Acct:[id number] Age/Sex: 48 / F Adm Date: 4 Loc: Room: [address] [place] [address]: Miah Abreu MD Copies to: [...] Instructions: Important Contact Information You can call [facility] at [phone] any time day or night if you have emergent questions or question regarding discharge instructions. If at any time you are feeling an increase inyour psychiatric symptoms, call your physician or behavioral healthcare provider. If any time you have thoughts of harming yourself or others contact one of the following: Call 8 (available 25/04) Crisis Text Line (available 25/04) text 4HOPE to [phone] [facility] Hope Line (available 8 a.m. Midnight) call [phone] ([phone]) Regular Diet No Activity Restrictions Instructions: Depression, Adult (DC), [facility] [place] Instructions Prescriptions: New ziprasidone [...] ONCE DAILY IN THE MORNING Follow Up: [facility] [Other] (facility to manage all care) Documented By: Miah Abreu MD 10/13/23 1147 Signed By: <Electronically signed by Miah Abreu MD> 10/13/23 1151 [facility] Work Phone: 1(193) 863-360801-11-2024 Hospital Discharge instructions Additional Instructions Important Contact Information You can call [facility] at [phone] any time day or night if you have emergent questions or question regarding discharge instructions. If at any time you are feeling an increase in your psychiatric symptoms, call your physician or behavioral healthcare provider. If any time you have thoughts of harming yourself or others contact one of the following: Call (available 25/04) Crisis Text Line (available 25/04) text 4HOPE to [phone] [facility] Line (available 8 a.m. Midnight) call [phone] ([phone]) Regular Diet No [facility] Work Phone: 1(919) 261-938501-10-2024 Progress note Author Miah Abreu [facility] October 12, 2023 11:10am Note Date/Time October 12, 2023 1 1:09am [facility] [address] [place] [address] Psychiatry Progress Note Signed Patient: Loyda Scott MR#: [id number] : 1975 Acct:[id number] Age/Sex: 48 / F Adm Date: 4 Loc: Room: [address] [place] [address] Type : ADM IN Attending Dr: Miah [...] alternatives explained Documented By: Miah Abreu MD 10/12/231106 Signed By: <Electronically signed by Miah Abreu MD> 10/12/23 1517 [facility] Work Phone: 1(180) 239-831101-09-2024 Progress note Author Miah Abreu [facility] October 11, 2023 11:22am Note Date/Time October 11, 2023 11 :22am [facility] [address] [place] [address] Psychiatry Progress Note Signed Patient: Loyda Scott MR#: [id number] : 1975 Acct:[id number] Age/Sex: 48 / F Adm Date: 4 Loc: Room: [address] [place] [address] Type : ADM IN Attending Dr: Miah [...] thoughts. She expressed interest in going to [facility] for rehab. Mental Status Exam: Appearance: grossly [...] explained Documented By: Miah Abreu MD 10/11/23 1121 Signed By: <Electronically signed by Miah Abreu MD> 10/11/23 1122 [facility] Work Phone: 1(206) 382-156401-08-2024 History and physical note Author Miah Abreu [facility] October 10, 2023 1:43pm Note Date/Time October 10, 2023 1: 39pm [facility] [address] [place] [address] Psychiatry H&P Signed Patient: Loyda Scott MR#: [id number] : 1975 Acct:[id number] Age/Sex: 48 / F Adm Date: 4 Loc: 1S Room: [address] [place] [address] Type: ADM IN Attending Dr: Miah Abreu [...] homicidality, reported suicidality Insight: fair Judgment: fair [facility] Medical History (Updated 10/10/23 @ 13:03 by [...] Cloudy A Urine pH 5.5 Ur Specific [place] 1.012 Urine Protein Negative Urine Glucose (UA) [...] signed by Miah Abreu MD> 10/10/23 1343 [facility] Work Phone: 1(183) 408-881711-24-2023 Discharge summary Author Olvin tavares [facility] August 26, 2023 7:42am Note Date/Time August 26, 2023 7:39am [facility] [address] [place] [address] Discharge Summary Signed Patient: Loyda Scott MR#: [id number] : 1975 Acct:[id number] Age/Sex: 48 / F Adm Date: 3 Loc: Room: [address] [place] [address]: Olvin Rollins MD Copies to: [...] baby. [place]. She said [...] She has beenworking on aftercare plans with pillowcase turner. She agreed to continue the current medications [...] Instructions: Important Contact Information You can call [facility] at [phone] any time day or night if you have emergent questions or question regarding discharge instructions. If at any time you are feeling an increase inyour psychiatric symptoms, call your physician or behavioral healthcare provider. If any time you have thoughts of harming yourself or others contact one of the following: Call (available 25/04) Crisis Text Line (available 25/04) text 4HOPE to [phone] [facility] Hope Line (available 8 a.m. Midnight) call [phone] ([phone]) Prescriptions: New cephalexin 500 mg Capsule 500 [...] tablet 75 mcg PO DAILY Follow Up: [facility] [Other] (Sees Dr. Mendoza for psychiatric medications. Also sees Dr. Woo at this location for medical needs. ) [facility] (Sees Cam for counseling. ) Documented By: Olvin Rollins MD 3 [id number] Signed By: <Electronically signed by Olvin Rollins MD> 08/26/23 0742 [facility] Work Phone: 1(790) 390-388211-24-2023 Hospital Discharge instructions Additional Instructions Important Contact Information You can call [facility] at [phone] any time day or night if you have emergent questions or question regarding discharge instructions. If at any time you are feeling an increase in your psychiatric symptoms, call your physician or behavioral healthcare provider. If any time you have thoughts of harming yourself or others contact one of the following: Call 8-8 (available 25/04) Crisis Text Line (available 25/04) text 4HOPE to [phone] [facility] Hope Line (available 8 a.m. Midnight) call [phone] ([phone]) Regular Diet No Activity Restrictions Urine culture from [facility] with no growth, you do NOT have a urinary tract infection and do NOT need antibiotic at discharge. Liver enzymes mildly elevated. Hepatitis panel still pending at the time of your discharge. Please follow up with your primary care for further management, with history of untreated Hepatitis [facility] Work Phone: 1(781) 985-756811-23-2023 Consult note Author Jesus Callahan [facility] August 25, 2023 12:19pm Note Date/Time August 24, 2023 6:07pm [facility] [address] [place] [address] Hospitalist Consult Note Signed Patient: Loyda Scott MR#: [id number] : 1975 Acct:[id number] Age/Sex: 48 / F Adm Date: 3 Loc: Room: [address] [place] [address] Type: ADM IN Attending Dr: Olvin Rollins [...] Anemia. Presented to the emergency department at [facility] August 23 with mental health concerns. [...] negative unless noted below or in HPI [facility] Medical History (Updated 08/24/23 @ 18:28 by [...] 100 Mg Capsule PO 08/23/24 21:59 [facility] [facility] Levothyroxine Sodium 75 mcg 08/24/23 07:30 08/24/23 [...] ESR, CRP Suspect UTI -Cephalexin initiated at [place] [facility], however squamous cells present may be [...] By: <Electronically signed by TANNER Hunter> 08/24/23 182 <Electronically signed by Jesus Callahan DO> 08/25/23 1219 [facility] Work Phone: [phone]) 926-135311-23-2023 Progress note Author Olvin tavares [facility] August 25, 2023 8:40am Note Date/Time August 25, 2023 8:40am [facility] [address] [place] [address] Psychiatry Progress Note Signed Patient: Loyda Scott MR#: [id number] : 1975 Acct:[id number] Age/Sex: 48 / F Adm Date: 3 Loc: Room: [address] [place] [address] Type : ADM IN Attending Dr: Olvin [...] signed by Olvin Rollins MD> 08/25/23 0840 [facility] Work Phone: 1(960) 707-672511-22-2023 History and physical note Author Olvin tavares [facility] August 24, 2023 7:17am Note Date/Time August 24, 2023 7:12am [facility] [address] [place] [address] Psychiatry H&P Signed Patient: Loyda Scott MR#: [id number] : 1975 Acct:[id number] Age/Sex: 48 / F Adm Date: 3 Loc: Room: [address] [place] [address] Type: ADM IN Attending Dr: Olvin Rollins [...] baby. [place]. She said [...] homicidality, reported suicidality Insight: fair Judgment: fair [facility] Medical History Anxiety Bipolar 1 disorder, depressed, [...] signed by Olvin Rollins MD> 08/24/23 0717 [facility] Work Phone: [phone]) 302-686408-09-2023 Evaluation note* Encounter Date Diagnosis Assessment Notes [...] can follow-up on a as needed basis. Jambo Other 07-30-2023 Discharge summary Author Miah Abreu [facility] May 01, 2023 12:16pm Note Date/Time May 01, 2023 11:3 0am [facility] [address] [place] [address] Discharge Summary Signed Patient: Loyda Scott MR#: [id number] : 1975 Acct:[id number] Age/Sex: 47 / F Adm Date: 3 Loc: 1S Room: [address] [place] [address]: Serafin Rollins MD Copies to: [...] THE ONE WEEK FOLLOW UP. [address] [place] [address] PH: [phone] Dressing Type: TX TO LEFT WRIST; WARM SOAPY SOAKS WITH HIBICLENS TID FOR 15 MINUTES. ALLOW TO AIR DRY AND THEN REDRESS WITH XERFORM, TELFA, AND GAUZE. THREE TIMES A DAY. Instructions: Bipolar Disorder (DC), [facility] [place] Instructions Prescriptions: New doxycycline [...] on Tuesday to set up appointment Cam) [facility] Counseling Hotline [Outside] Efrain Alcazar II, MD [Active Staff] - (Please call on Tuesday to set up appointment in 5-7 days.) Documented By: Miah Abreu MD 05/01/23 1130 Signed By: <Electronically signed by Miah Abreu MD> 05/01/23 1216 [facility] Work Phone: [phone]) 398-332507-29-2023 Progress note Author Miah Abreu [facility] April 30, 2023 11:22am Note Date/Time April 30, 2023 11:2 2am [facility] [address] [place] [address] Psychiatry Progress Note Signed Patient: Loyda Scott MR#: [id number] : 1975 Acct:[id number] Age/Sex: 47 / F Adm Date: 3 Loc: Room: [address] [place] [address] Type : ADM IN Attending Dr: Serafin [...] <Electronically signed by Miah Abreu MD> 04/30/23 [facility] Work Phone: 1(801) [phone] Progress note Author Miah Abreu [facility] April 29, 2023 1:04pm Note Date/Time April 29, 2023 1:04 pm [facility] [address] [place] [address] Psychiatry Progress Note Signed Patient: Loyda Scott MR#: [id number] : 1975 Acct:[id number] Age/Sex: 47 / F Adm Date: 3 Loc: 1S Room: 6G1275-3 Type : ADM IN Attending Dr: Serafin [...] signed by Miah Abreu MD> 04/29/23 1304 [facility] Work Phone: 1([phone]) 421-786207-27-2023 Progress note Author Miah Abreu [facility] April 28, 2023 12:01pm Note Date/Time April 28, 2023 12:0 1pm [facility] [address] [place] [address] Psychiatry Progress Note Signed Patient: Loyda Scott MR#: [id number] : 1975 Acct:[id number] Age/Sex: 47 / F Adm Date: 3 Loc: Room: [address] [place] [address] Type : ADM IN Attending Dr: Serafin [...] signed by Miah Abreu MD> 04/28/23 1201 [facility] Work Phone: 1(120) [phone] Hospital Discharge instructions Additional Instructions FOLLOW UP WITH DR. ALCAZAR AT HIS OFFICE IN ONE WEEK. (ORD.04/28/2023) IF DISCHARGED FROM PRIOR TO THE ONE WEEK FOLLOW UP. [address] [place] [address] PH: [phone] Dressing Type: Treatment TO LEFT WRIST; WARM SOAPY SOAKS WITH HIBICLENS TID FOR 15 MINUTES. ALLOW TO AIR DRY AND THEN REDRESS WITH XERFORM, TELFA, AND GAUZE. THREE TIMES A DAY.[facility] Work Phone: [phone]) 879-341107-27-2023 Consult note Author Efrain Alcazar [facility] April 28, 2023 2:11am Note Date/Time April 28, 2023 1:17 am [facility] [address] [place] [address] Orthopedic Consult Note Signed Patient: Loyda Scott MR#: [id number] : 1975 Acct:[id number] Age/Sex: 47 / F Adm Date: 3 Loc: Room: [address] [place] [address] Type: ADM IN Attending Dr: Serafin Rollins MD Copies to: NON STAFF MD Efrain Ibanez MD~ History of Present Illness HPI Consult date: 04/28/2023 Requesting provider: Serafin Rollins MD History of present illness: Patient is a 47-year-old cssco-yhak-ygrxngrg female who is disabled from mental health issues presented to the [place] emergency department on April 13 because she had used a elaine knife to slit her left wrist. At that time she reported suicidal ideations. The wound at that time according to the patient was washed out and sutured. She was admitted to [facility] psychiatric unit at that time and discharged on April 17. Not long after discharge she presented to the [place] emergency department because she was concerned about infection. She was given oral antibiotics and discharge. On April 23 she was readmitted to [facility] psychiatric unit and at that time [...] 300 mg PO DAILY 04/23/23 [History Confirmed 07/22/23] Exam Physical Exam Vital Signs: Temp Pulse [...] % (Auto) 54.1, Lymph % (Auto) 33.3, [place] % (Auto) 8.2, Eos % (Auto) 3.2, Baso % (Auto) 1.2, Nucleat RBC Rel Count 0.2, Neut # (Auto) 2.1, Lymph # (Auto) 1.3, [place] # (Auto) 0.3, Eos # (Auto) 0.1, [...] initial encounter Documented By: Efrain Alcazar MD 04/28/2310 18 Signed By: <Electronically signed by Efrain Alcazar MD> 04/28/23 0216 [facility] Work Phone: 1(374) 571-754007-26-2023 Progress note Author Miah Abreu [facility] April 27, 2023 12:45pm Note Date/Time April 27, 2023 12:4 5pm [facility] [address] [place] [address] Psychiatry Progress Note Signed Patient: Loyda Scott MR#: [id number] : 1975 Acct:[id number] Age/Sex: 47 / F Adm Date: 3 Loc: Room: [address] [place] [address] Type : ADM IN Attending Dr: Serafin [...] signed by Miah Abreu MD> 04/27/23 1245 [facility] Work Phone: 1(520) 504-538907-25-2023 Progress note Author Miah Abreu [facility] April 26, 2023 12:24pm Note Date/Time April 26, 2023 12:2 4pm [facility] [address] [place] [address] Psychiatry Progress Note Signed Patient: Loyda Scott MR#: [id number] : 1975 Acct:[id number] Age/Sex: 47 / F Adm Date: 3 Loc: Room: [address] [place] [address] Type : ADM IN Attending Dr: Serafin [...] <Electronically signed by Miah Abreu MD> 04/26/23 4502 [facility] Work Phone: 1(808) 864-527007-24-2023 Progress note Author Miah Abreu [facility] April 25, 2023 1:05pm Note Date/Time April 25, 2023 1:04 pm [facility] [address] [place] [address] Psychiatry Progress Note Signed Patient: Loyda Scott MR#: [id number] : 1975 Acct:[id number] Age/Sex: 47 / F Adm Date: 3 Loc: Room: [address] [place] [address] Type : ADM IN Attending Dr: Serafin [...] <Electronically signed by Miah Abreu MD> 04/25/23 [facility] Work Phone: 1(196) 985-304307-24-2023 Progress note Author Jesus Callahan [facility] April 25, 2023 10:07am Note Date/Time April 25, 2023 10:0 7am [facility] [address] [place] [address] Hospitalist Progress Note Signed Patient: Loyda Scott MR#: [id number] : 1975 Acct:[id number] Age/Sex: 47 / F Adm Date: 3 Loc: Room: [address] [place] [address] Type: ADM IN Attending Dr: Serafin Rollins MD Copies to: ~ Date of Service: 04/25/2023 Subjective Subjective Narrative: I personally saw and examined patient at the bedside on the psychiatry unit thismorning. She complains of some ongoing pain in [...] sutures in place. Neurovascularly intact. Mildly decreased silk weaver strength due to pain. No extension of [...] Freq PRN Reason Stop Dose Admin Acetaminophen 650 [...] self-inflicted cutting wound -previously sutured 04/13 at [place]. Wound care has been consulted. Appreciate any further recommendations. Recommend circumscribing the margins ofher erythema which at this time does not seem to be extending proximally. She is afebrile. She does report some ongoing pain for which I will add low-dose [place] as the patient has tramadol allergy (lowers [...] <Electronically signed by Jesus Callahan DO> 04/25/[address] [place] [address] Ctr Work Phone: [phone]) [phone] Consult note Author Abisai Madrid [facility] April 24, 2023 9:53am Note Date/Time April 23, 2023 5:14 pm [facility] [address] [place] [address] Hospitalist Consult Note Signed Patient: Loyda Scott MR#: [id number] : 1975 Acct:[id number] Age/Sex: 47 / F Adm Date: 3 Loc: 1S Room: [address] [place] [address] Type: ADM IN Attending Dr: Serafin Rollins MD Copies to: NON STAFF MD Abisai Ibanez MD Lynn A Stackhouse, ANP-BC~ HPI DATE OF CONSULTATION: 04/23/23 REQUESTING PROVIDER: Serafin Rollins Consult Narrative Reason for Consult: Wound present on admission HPI: This is a 47-year-old female past medical HTN, HLD, hypothyroid, hypertension, hyperlipidemia, hepatitis, rheumatoid arthritis, anxiety and depression. She presented April 22 from [facility] to the inpatient psychiatric unit for management of depression. Patient previously April 13 had self-inflicted a left wrist laceration that was sutured at that time in [facility] ED previously. She noticed about 4 days ago that she was having increased pain erythema and drainage from the site. When she was at [facility] last evening for reevaluation he did give her injection of ceftriaxone IM and initiated her on Bactrim and Keflex. Patient has a stated allergy to Bactrim with vomiting, and since receiving the dose in the [facility] ER she has not felt well and [...] self-inflicted cutting wound -previously sutured 04/13 at [facility], pain and erythema/ drainage started about 4 [...] signed by Abisai Madrid MD> 04/24/23 0953 [facility] Work Phone: [phone]) 339-761607-23-2023 Progress note Author Olvin tavares [facility] April 24, 2023 7:14am Note Date/Time April 24, 2023 7:14 am [facility] [address] [place] [address] Psychiatry Progress Note Signed Patient: Loyda Scott MR#: [id number] : 1975 Acct:[id number] Age/Sex: 47 / F Adm Date: 3 Loc: Room: [address] [place] [address] Type : ADM IN Attending Dr: Serafin Rollins MD Copies to: ~ Date of Service: 04/24/2023 Subjective Subjective Narrative: Ms. Scott said she met the hospitalist [facility] [place] and talked the treatment plan for herwound [...] signed by Olvin Rollins MD> 04/24/23 0714 [facility] Work Phone: [phone]) [phone] History and physical note Author Olvin tavares [facility] April 23, 2023 9:51am Note Date/Time April 23, 2023 8:56 am [facility] [address] [place] [address] Psychiatry H&P Signed Patient: Loyda Scott MR#: [id number] : 1975 Acct:[id number] Age/Sex: 47 / F Adm Date: 3 Loc: 1S Room: 3A2960-7 Type: ADM IN Attending Dr: Serafin Rollins [...] Ms. Scott adds that she went to [facility] last night to have her wrist lookedat [...] <Electronically signed by Olvin Rollins MD> 04/23/23 0920 [facility] Work Phone: [phone]) 245-361811-30-2022 Discharge summary Author Olvin tavares [facility] September 01, 2022 10:03am Note Date/Time September 01, 2022 10:03am [facility] [address] [place] [address] Discharge Summary Signed Patient: Loyda Scott MR#: [id number] : 1975 Acct:[id number] Age/Sex: 47 / F Adm Date: 2 Loc: Room: [address] [place] [address]: Miah Abreu MD Copies to: [...] as withdrawn.? [facility] and has not been taking her medications.??She states that she was partying [place].? She was found laying on the sidewalk in the rain by EMS and transported to [facility].? Patient admits to attempting suicide x2 at [...] Appearance Clear, Urine pH 6.5, Ur Specific [place] 1.006, Urine Protein Negative, Urine Glucose (UA) [...] 30 Days Qty: 30 0RF Follow Up: [facility] [Other] - 09/07/22 10:00 am ( Pschiatry: Tuesday09/07/22 @ 10:00am with AUDI Zarate Referral for therapy & IOP treatment will be made at this time Psychiatry: 09/30/22 @ 12:[address] Stubbs. ) Documented By: Olvin Rollins MD 2 1000 Signed By: <Electronically signed by Olvin Rollins MD> 09/01/22 1003 [facility] Work Phone: 1([phone]) 493-629911-29-2022 Progress note Author Olvin tavares [facility] August 31, 2022 9:32am Note Date/Time August 31, 2022 9:32am [facility] [address] [place] [address] Psychiatry Progress Note Signed Patient: Loyda Scott MR#: [id number] : 1975 Acct:[id number] Age/Sex: 47 / F Adm Date: 2 Loc: Room: [address] [place] [address] Type : ADM IN Attending Dr: Miah [...] signed by Olvin Rollins MD> 08/31/22 0932 [facility] Work Phone: [phone]) [phone] History and physical note Author Olvin tavares [facility] August 30, 2022 10:00am Note Date/Time August 30, 2022 9:56am [facility] [address] [place] [address] Psychiatry H&P Signed Patient: Loyda Scott MR#: [id number] : 1975 Acct:[id number] Age/Sex: 47 / F Adm Date: 2 Loc: Room: [address] [place] [address] Type: ADM IN Attending Dr: Miah Abreu [...] as withdrawn. She reports beingrecently discharged from [facility] and has not been taking her medications.??She states that she was partying at [facility] She was found laying on the sidewalk in the rain by EMS and transported to [facility].? Patient admits to attempting suicide x2 at [...] signed by Olvin Rollins MD> 08/30/22 1000 [facility] Work Phone: 1([phone]) 301-813509-10-2022 Progress note Author Miah Abreu [facility] June 12, 2022 11:20am Note Date/Time June 12, 2022 11:20am [facility] [address] [place] [address] Psychiatry Progress Note Signed Patient: Loyda Scott MR#: [id number] : 1975 Acct:[id number] Age/Sex: 47 / F Adm Date: 2 Loc: Room: [address] [place] [address] Type : ADM IN Attending Dr: Serafin [...] persistent urine drug screens positive for cocaine [id number] Continue home medications. Continue to monitor mental status Encourage group participation and medication compliance Risk benefits alternatives explained Documented By: Miah Abreu MD 06/12/221118 Signed By: <Electronically signed by Miah Abreu MD> 06/12/22 1120 [facility] Work Phone: [phone]) 271-799309-09-2022 Progress note Author Miah Abreu [facility] June 11, 2022 1:36pm Note Date/Time June 11, 2022 1:33pm [facility] [address] [place] [address] Psychiatry Progress Note Signed Patient: Loyda Scott MR#: [id number] : 1975 Acct:[id number] Age/Sex: 47 / F Adm Date: 2 Loc: Room: [address] [place] [address] Type : ADM IN Attending Dr: Serafin [...] persistent urine drug screens positive for cocaine [id number] Continue home medications. Continue to monitor mental status Encourage group participation and medication compliance Risk benefits alternatives explained Documented By: Miah Abreu MD 06/11/22 1215 Signed By: <Electronically signed by Miah Abreu MD> 06/11/22 9398 [facility] Work Phone: 1([phone]) 313-950709-08-2022 Progress note Author Miah Abreu [facility] June 10, 2022 1:53pm Note Date/Time June 10, 2022 1:53pm [facility] [address] [place], [place] [address] Psychiatry Progress Note Signed Patient: Loyda Scott MR#: [id number] : 1975 Acct:[id number] Age/Sex: 47 / F Adm Date: 2 Loc: Room: [address] [place] [address] Type : ADM IN Attending Dr: Serafin [...] persistent urine drug screens positive for cocaine [id number] Continue home medications. Continue to monitor mental status Encourage group participation and medication compliance Risk benefits alternatives explained Documented By: Miah Abreu MD 06/10/22 1111 Signed By: <Electronically signed by Miah Abreu MD> 06/10/[address] [place] [address] Work Phone: [phone]) [phone] Progress note Author Miah Abreu [facility] June 09, 2022 12:58pm Note Date/Time June 09, 2022 12:58pm [facility] [address] [place] [address] Psychiatry Progress Note Signed Patient: Loyda Scott MR#: [id number] : 1975 Acct:[id number] Age/Sex: 47 / F Adm Date: 2 Loc: Room: 9W0930-4 Type : ADM IN Attending Dr: Serafin [...] persistent urine drug screens positive for cocaine [id number] Continue home medications. Continue to monitor mental status Encourage group participation and medication compliance Risk benefits alternatives explained Documented By: Miah Abreu MD 06/09/22 1103 Signed By: <Electronically signed by Miah Abreu MD> 06/09/22 5690 [facility] Work Phone: 1(770) 946-468409-06-2022 Progress note Author Miah Abreu [facility] June 08, 2022 12:01pm Note Date/Time June 08, 2022 11:59am [facility] [address] [place] [address] Psychiatry Progress Note Signed Patient: Loyda Scott MR#: [id number] : 1975 Acct:[id number] Age/Sex: 47 / F Adm Date: 2 Loc: Room: [address] [place] [address] Type : ADM IN Attending Dr: Serafin [...] persistent urine drug screens positive for cocaine [id number] Continue home medications. Continue to monitor mental status Encourage group participation and medication compliance Risk benefits alternatives explained Documented By: Miah Abreu MD 06/08/22 0940 Signed By: <Electronically signed by Miah Abreu MD> 06/08/22 1201 [facility] Work Phone: 1([phone]) 349-485609-05-2022 History and physical note Author Miah Abreu [facility] June 07, 2022 12:39pm Note Date/Time June 07, 2022 12:38pm [facility] [address] [place] [address] Psychiatry H&P Signed Patient: Loyda Scott MR#: [id number] : 1975 Acct:[id number] Age/Sex: 47 / F Adm Date: 2 Loc: Room: 4I9094-7 Type: ADM IN Attending Dr: Serafin Rollins [...] called the hotline and was taken to [facility] ED after which she was transferred to . For the last few months, she has been feeling increasingly depressed and anxious. She reports a recent incident while babysitting her granddaughter in [place] during which she hid under the table and felt as though the world was ending . She endorses multiple similar episodes of panic recently during which she feels her heart racing, sweaty, and impending doom. She is following with a psychiatrist in [place] who recommended she start on a new [...] with the medical student as notedbelbernadine. Patient presenting due to concern for depression [...] persistent urine drug screens positive for cocaine [id number] Continue home medications. Continue to monitor mental status Encourage group participation and medication compliance Risk benefits alternatives explained Documented By: Miah Abreu MD 06/07/22 1002 Signed By: <Electronically signed by Miah Abreu MD> 06/07/22 1239 [facility] Work Phone: Discharge summary Author Miah Abreu [facility] June 12, 2022 12:38pm Note Date/Time June 12, 2022 12:33pm [facility] [address] [place] [address] Discharge Summary Signed Patient: Loyda Scott MR#: [id number] : 1975 Acct:[id number] Age/Sex: 47 / F Adm Date: 2 Loc: Room: [address] [place] [address]: Serafin Rollins MD Copies to: [...] called the hotline and was taken to [facility] ED after which she was transferred to . For the last few months, she has been feeling increasingly depressed and anxious. She reports a recent incident while babysitting her granddaughter in [place] during which she hid under the table and felt as though the world was ending . She endorses multiple similar episodes of panic recently during which she feels her heart racing, sweaty, and impending doom. She is following with a psychiatrist in [place] who recommended she start on a new [...] tablet 225 mg PO QHS Follow Up: [facility] [Other] (Dr. Stubbs) [facility] [Other] (Therapist: Liu) Documented By: Miah Abreu MD 06/12/22 1231 Signed By: <Electronically signed by Miah Abreu MD> 06/12/22 1238 [facility] Work Phone: Evaluation note* Diagnosis Onset Date Resolution Status Generalized anxiety disorder acute Major depress dis, severe ac [place] Stimulant use disorder acute Acute anxiety acute Major depress dis, severe ac [place] Stimulant use disorder acute Suicidal ideation acute [facility] Work Phone: Evaluation note* Diagnosis Onset Date Resolution Status Acute anxiety acute Major depress dis, severe ac [place] Stimulant use disorder acute Suicidal ideation acute Bipolar disorder acute Generalized anxiety disorder acute Stimulant use disorder acute Unspecified psychosis acute [facility] Work Phone: Evaluation note* Diagnosis Onset Date Resolution Status Major depress dis, severe ac [place] Stimulant use disorder acute Acute anxiety acute Bipolar disorder, current episode depressed, mild acute Generalized anxiety disorder acute Hyperlipidemia acute Hypertension acute Open wound of left wrist acu te Self-inflicted laceration of left wrist acute Stimulant use disorder acute [facility] Work Phone: Evaluation note* Diagnosis Onset Date Resolution Status Acute anxiety acute Bipolar 2 disorder, major depressive episode acute Cocaine abuse acute Elevated LFTs acute Hyperlipidemia acute Hypertension acute Hypothyroid acute Major depress dis, severe ac [place] Marijuana use acute Nausea acute Stimulant use disorder acute UTI (urinary tract infection), bacterial acute Rheumatoid arthritis chronic [facility] Work Phone: Evaluation note* Diagnosis Onset Date Resolution Status Acute anxiety acute Bipolar 2 disorder, major depressive episode acute Cocaine abuse acute Elevated LFTs acute Hyperlipidemia acute Hypertension acute Hypothyroid acute Major depress dis, severe ac [place] Marijuana use acute Nausea acute Stimulant use disorder acute UTI (urinary tract infection), bacterial acute Rheumatoid arthritis chronic Major depress dis, severe ac [place] Stimulant use disorder acute [facility] Work Phone: Evaluation note* Diagnosis PTSD (post-traumatic stress disorder) ([facility]/HCC) Posttraumatic stress disorder Opioid dependence in remission ([facility]/HCC) Opioid type dependence, in remission Methamphetamine dependence in remission ([facility]/HCC) Alcohol dependence in remission ([facility]/HCC) Attention deficit hyperactivity disorder (ADHD), combined type ([facility]/HCC) documented [facility] encounter [facility] Diagnosis PTSD (post-traumatic stress disorder) ([facility]/HCC) Posttraumatic stress disorder Alcohol dependence in remission [...] to establish care [facility] Diagnosis Onset Date Resolution Status Bipolar 2 disorder, major depressive episode acute Cocaine abuse acute Generalized anxiety disorder acute [facility] Work Phone: History general Narrative - [...] and depression Hospitalization History see surgical Hx [place] Other Hospital Discharge instructions Additional Instructions Regular diet. No activity restrictions.[facility] Work Phone: Instructions* Attachments The following attachments cannot be sent through Care Everywhere. * Low Salt Diet ([place]) documented in this encounterW[facility] CenterExcelera SystemInstructionsNot on file documented in [facility]Grant [facility] Summary Purpose Family History No Family [...] FoundDocuments on File Type Date Recorded Patient Hydramatic Specialist Expl anation Advance Directives and Livin g Will Advance Directives and Livin g Will 04/27/2013 12:00 AM Power of Art Gallery Director Latest Code Status on File Code Status Date Activated Date Inactivated Comments Full Code 07/02/2019 12:21 AM Full Code 09/09/2017 3:56 PM 09/14/2017 10:29 PM Full Code 09/09/2017 3:47 PM 09/09/2017 3:56 PM Full Code 10/07/2016 2:58 PM 10/15/2016 9:19 AM Full Code 10/06/2016 10:43 PM 10/07/2016 2:58 PM Documents on File Type Date Recorded Patient Hydramatic Specialist Expl anation ACP-Advance Directive ACP-Power of Art Gallery Director ACP-Advance Directive 04/27/2013 12:00 AM Latest Code [...] section and content) DATE CREATED AUTHOR 03/29/2018 [facility] DATE CREATED AUTHOR AUTHOR'S ORGANIZ ATION 07/05/2019 [facility] DATE CREATED AUTHOR AUTHOR'S ORGANIZ ATION 04/09/2022 [facility] DATE CREATED AUTHOR AUTHOR'S ORGANIZ ATION 10/01/2022 [facility] DATE CREATED AUTHOR AUTHOR'S ORGANIZ ATION 12/03/2023 [facility] DATE CREATED AUTHOR AUTHOR'S ORGANIZ ATION 12/04/2023 [facility] DATE CREATED AUTHOR AUTHOR'S ORGANIZ ATION 01/21/2024 [facility] DATE CREATED AUTHOR AUTHOR'S ORGANIZ ATION 04/18/2024 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 Relationship Specialty Start Date End Date Branden Vazquez MD PCP - General 06/15/15 Team Status: [...] Attending Pr ovider Active Michelle Ko , GROVER Other Provider Active Jennifer Bonner , GROVER Other Provider Active Meme Delacruz , RN Other Provider Active Carmella Lazo , RN Other Provider Active Arianna Centeno , RN Other Provider Active Vaishali Rivera , RN Other Provider Active Alessandra Luna APRN Other Provider Active Valentina Nice , DO [...] MD Other Provider Active Gris Breaux , SUPERVISOR [employer]INGS[employer] Other Provider Active Abisai Madrid MD Other Provider Active Wolf Irwin MD Other Provider Active Hammad Zayas MD Other Provider Active Georgi Rodríguez MD Other Provider Active Debbie Greenwood , DO Other Provider Active Jordan Dumont , DO Other Provider Active Jim Wells , DO Other Provider Active Janie Douglas , GRINDER MACHINE SETTER Other Provider Active Eddie Jensen , DO Other Provider Active Emanuel Esposito MD Other Provider Active Jael Chan , GRINDER MACHINE SETTER Other Provider Active Fabi Deglado , GRINDER MACHINE SETTER Other Provider Active Danny Mancia MD Other [...] Active Olvin Rollins MD Admit Provider, Attending Linda cannon Active Michelle Ko , GROVER Other Provider Active Jennifer Bonner , GROVER Other Provider Active Meme Delacruz , GROVER Other Provider Active Carmella Lazo , GROVER Other Provider Active Arianna Centeno , GROVER Other Provider Active Vaishali Rivera , GROVER Other Provider Active Alon Chand MD Other Provider Active Alessandra Luna , GRINDER MACHINE SETTER Other Provider Active Valentina Nice , DO Other Provider Active Rush Ramsey MD Other Provider Active Santi Rudd , DO Other Provider Active Zeus Bright MD Other Provider Active Ya Simms MD Other Provider Active Adele Hunter , GRINDER MACHINE SETTER Other Provider Active Yessy Bustillos MD Other Provider Active Irwin Rivero MD Other Provider Active Jose Loaiza MD Other Provider Active Demario Spicer MD Other Provider Active Jesus Callahan , DO Other Provider Active Becca Bustos MD Other Provider Active Kamron Solis MD Other Provider Active Gris Breaux , SUPERVISOR [employer] Other Provider Active Abisai Madrid MD Other Provider Active Wolf Irwin MD Other Provider Active Hammad Zayas MD Other Provider Active Georgi Rodríguez MD Other Provider Active Debbie Greenwood , DO Other Provider Active Jordan Dumont , DO Other Provider Active Jim Wells , DO Other Provider Active Janie Douglas , GRINDER MACHINE SETTER Other Provider Active Eddie Jensen , DO Other Provider Active Emanuel Esposito MD Other Provider Active Jael Chan , GRINDER MACHINE SETTER Other Provider Active Fabi Delgado , GRINDER MACHINE SETTER Other Provider Active Danny Mancia MD Other Provider Active Sánchez Noble MD Other Provider Active Lexx Fox , DO Other Provider Active Sofia Malagon , GRINDER MACHINE SETTER Other Provider Active Maycol Lee , DO Other Provider Active Charito Galvan , RN Other Provider Active Furnace Charging Machine Operator Relationship Specialty Start Date End Date Lili Woo MD [address] [place] [address] PCP - General Family Medicine 07/14/23 Furnace Charging Machine Operator Relationship Specialty Start Date End Date Lili Woo MD [address] [place] [address] PCP - General Family Medicine 07/14/23 Furnace Charging Machine Operator Relationship Specialty Start Date End Date Lili Woo MD [address] [place] [address] PCP - General Family Medicine 07/14/23 Furnace Charging Machine Operator Relationship Specialty Start Date End Date 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 APRN-JAVA FRONT END WEB DEVELOPER [address] [place] [phone] PCP - General Nurse Practitioner 12/01/23 Furnace Charging Machine Operator Relationship Specialty Start Date End Date 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 APRN-JAVA FRONT END WEB DEVELOPER [address] [place] [phone] PCP - General Nurse Practitioner 12/01/23 Team Status: Active Member Role Status Dates 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 SUPERVISOR [employer] Primary Care Provider Active Team Status: Inactive Member Role Status Dates 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 SUPERVISOR [employer] Primary Care Provider Active Start: January 18, [...] BE BASED ON THE PRIMARY CLINICAL RECORDS. [employer] provides no warranty or guarantee of the accuracy or completeness of information in this document.
--- NOTE | 2024-07-14 18:01 | ECG_ITS ---
[facility] Test Date: 2024-07-14 Pat Name: LOYDA MITTAL Department: Room: - Gender: Female Biology Tutor: : 1975 Requested By: Order Number: [id number] Reading MD: RICHMOND MACKEY Measurements Intervals [place] Rate: 92 P: 37 MS: 128 QRS: 66 QRSD: 76 T: 67 QT: 364 QTc: 414 Interpretive Statements 1100 Sinus rhythm 9110 normal ECG Compared to ECG 06/20/2024 08:57:26 No significant changes Electronically Signed On 07-15-2024 12:02:41 EDT by RICHMOND MACKEY
[2024-07-14] MEDS: LORAZEPAM 2 MG/ML VIAL 1 MG IV (18:44)
[2024-07-14] MEDS: FAMOTIDINE/PF 20 MG/2 ML VIAL IV (18:44)
[2024-07-14] MEDS: ONDANSETRON PF 4 MG/2 ML VIAL IV (18:44)
--- NOTE | 2024-07-14 18:44 | ED_ITS ---
HPI - Abdominal Pain General Chief Complaint: Nausea/Vomiting/Diarrhea Stated Complaint: Nausea/Vomiting/Diarrhea Time Seen by Provider: 07/14/24 17:48 Source: patient Mode of arrival: ambulance History of Present Illness HPI narrative: The patient presented to us with almost 1 week history of epigastric pain associate with nausea and vomiting and decreased appetite. Patient mentioned that she is going through a lot of stress she had her Aunt dying of cancer in addition it is the anniversary of multiple people that in her The patient was tearful and crying when she is talking about her history The patient denies any diarrhea or constipation Related Data Home Medications ?Medication ?Instructions ?Recorded ?Confirmed levothyroxine 75 mcg tablet 75 mcg PO DAILY 04/13/23 06/20/24 lisdexamfetamine 30 mg capsule 30 mg PO DAILY 04/13/23 06/20/24 (Vyvanse) alprazolam 1 mg tablet 1 mg PO BID 08/23/23 06/20/24 estradiol 0.5 mg tablet 0.5 mg PO DAILY 06/20/24 06/20/24 zolpidem 5 mg tablet 5 mg PO DAILY 06/20/24 06/20/24 Previous Rx's ?Medication ?Instructions ?Recorded ondansetron 4 mg disintegrating 4 mg PO DAILY PRN nausea and 06/20/24 tablet vomiting #15 tabs Allergies Allergy/AdvReac Type Severity Reaction Status Date / Time buspirone (From BuSpar) Allergy Verified 04/13/23 02:03 hydroxyzine (From Vistaril) Allergy Verified 04/13/23 02:03 metronidazole (From Flagyl) Allergy Verified 04/23/23 02:42 tramadol Allergy Verified 04/13/23 02:03 sulfamethoxazole (From AdvReac Severe Diarrhea Verified 08/23/23 18:00 Bactrim) trimethoprim (From Bactrim) AdvReac Severe Diarrhea Verified 08/23/23 18:00 SSRIs Allergy Uncoded 04/13/23 02:03 Review of Systems ROS Status of ROS 10 or more systems reviewed and unremark able except as noted in history and below PFSH PFSH Social History Smoking status: Current every day smoker Little interest or pleasure in doing things: not at all Feeling down, depressed, or hopeless: not at all Exam Narrative Exam Narrative: Nurses notes and vital signs reviewed and patient is not hypoxic. General: Well-appearing and in no apparent distress. Skin: Warm, dry, no pallor noted. No rash. Head: Normocephalic, atraumatic. Neck: Supple, non-tender. Eye: Pupils are equal, round and EOMI. No scleral icterus. Ears, Nose, Mouth, and Throat: TM are clear, no nasal mucosal hypertrophy. Oral mucosa is moist, no posterior oropharynx erythema, uvula is mid-line Cardiovascular: Regular Rate and Rhythm without murmur, gallop or rub. Respiratory: No accessory muscle use or respiratory distress. Lungs are clear to auscultation, no wheezing, rales or rhonchi Chest Wall: no tenderness Back: No midline thoracic or lumbar vertebral tenderness. No CVA tenderness Musculoskeletal: normal ROM, no calf or popliteal tenderness, no lower extremity edema/swelling GI: Abdomen is soft, non-distended. Normal bowel sounds. No masses appreciated. Mild epigastric discomfort. No rebound, guarding, or rigidity noted. Neurological: A&O x4. No cranial nerve dysfunction observed. No truncal ataxia. Moves all extremities. Sensation intact. Psychiatric: Cooperative and interactive. Normal mood and affect. Constitutional Vital Signs, click to edit/add: Last Vital Signs Temp 99.2 F 07/14/24 17:41 Pulse 83 07/14/24 17:41 Resp 20 07/14/24 17:41 BP 140/95 H 07/14/24 17:41 Pulse Ox 98 07/14/24 17:41 O2 Del Method Room Air 07/14/24 17:41 Course Vital Signs Vital signs: Vital Signs Temperature 99.2 F 07/14/24 17:41 Pulse Rate 83 07/14/24 17:41 Respiratory Rate 20 07/14/24 17:41 Blood Pressure 140/95 H 07/14/24 17:41 Pulse Oximetry 98 07/14/24 17:41 Oxygen Delivery Method Room Air 07/14/24 17:41 Temperature 99.2 F 07/14/24 17:41 Pulse Rate 83 07/14/24 17:41 Respiratory Rate 20 07/14/24 17:41 Blood Pressure 140/95 H 07/14/24 17:41 Pulse Oximetry 98 07/14/24 17:41 Oxygen Delivery Method Room Air 07/14/24 17:41 MDM - Abdominal Pain MDM Narrative Medical decision making narrative: The patient was tearful and crying and it is obvious that she is going through the grieving with her Aunt sickness Blood workup ordered and the patient is planned to be evaluated by psychiatry Patient case will be transferred to Dr Medel Discharge Plan Discharge Patient Disposition: Still a Patient
[2024-07-14 19:06] LABS: Basophils Percent Auto 0.7 % (0.2-2.0); Eosinophils Absolute Auto 0.1 10^3/uL (0.0-0.7); Eosinophils Percent Auto 2.3 % (0.9-7.0); Hematocrit 43.3 % (36.0-48.0); Hemoglobin 14.6 g/dL (12.0-16.0); Immature Granulocytes Abs Auto 0.01 10^3/uL (0.00-0.03); Immature Granulocytes Pct Auto 0.2 % (0.0-0.5); Lymphocytes Absolute Auto 1.7 10^3/uL (1.2-3.8); Lymphocytes Percent Auto 27.7 % (20.5-60.0); Mean Corpuscular HGB Conc 33.7 g/dL (29.9-35.2); Mean Corpuscular Hemoglobin 33.2 pg (26.7-34.0); Mean Corpuscular Volume 98.4 fL (81.0-99.0); Mean Platelet Volume 11.6 fL (9.5-13.5); Monocytes Absolute Auto 0.4 10^3/uL (0.3-0.8); Monocytes Percent Auto 7.1 % (1.7-12.0); Neutrophils Absolute Auto 3.8 10^3/uL (1.4-6.5); Platelet Count 262 10^3/uL (150-450); Red Cell Distribution Width 12.1 % (11.0-15.0); White Blood Count 6.1 10^3/uL (4.0-11.0)
--- NOTE | 2024-07-14 19:12 | PC.NURSE ---
ness from [facility] called at [phone] pt would like to be hospitalized crisis will call to assess pt in an hour to see if she meet criteria
[2024-07-14 19:23] LABS: Alanine Aminotransferase 109 U/L (14-59); Albumin Level 3.8 g/dL (3.4-5.0); Alkaline Phosphatase 58 U/L (46-116); Anion Gap 15.7; Aspartate Amino Transferase 84 U/L (15-37); Bilirubin Total 0.5 mg/dL (0.2-1.0); Calcium 9.5 mg/dL (8.5-10.1); Carbon Dioxide 29.5 mmol/L (21.0-32.0); Chloride 105 mmol/L (98-107); Estimated GFR (African America >60 (>=60 mL/min/1.73m^2); Estimated GFR (Non-African Ame 58 (>=60 mL/min/1.73m^2); Globulin 3.7 g/dL; Glucose 86 mg/dL (74-106); Potassium 4.2 mmol/L (3.5-5.1); Sodium 146 mmol/L (136-145); Total Protein 7.5 g/dL (6.4-8.2)
[2024-07-14 19:26] LABS: Troponin I High Sensitivity <4.0 pg/mL (4.0-51.3)
[2024-07-14 19:34] LABS: Ethanol <3 mg/dL
[2024-07-14] MEDS: PROMETHAZINE HCL 12.5 MG in 0.9 % SODIUM CHLORIDE 50 ML 202 MG IV (20:12)
[2024-07-14 20:32] LABS: Amphetamine Screen Urine POSITIVE (NEGATIVE); Barbiturates Screen Urine NEGATIVE (NEGATIVE); Benzodiazepines Screen Urine POSITIVE (NEGATIVE); Buprenorphine Screen Urine NEGATIVE (NEGATIVE); Cannabinoid Screen Urine POSITIVE (NEGATIVE); Cocaine Screen Urine NEGATIVE (NEGATIVE); Methadone Screen Urine NEGATIVE (NEGATIVE); Methamphetamines Screen Urine NEGATIVE (NEGATIVE); Opiate Screen Urine NEGATIVE (NEGATIVE); Oxycodone Screen Urine NEGATIVE (NEGATIVE); Phencyclidine Screen Urine NEGATIVE (NEGATIVE); Tricyclic Antidepressant Urine NEGATIVE (NEGATIVE)
--- NOTE | 2024-07-14 20:47 | PC.NURSE ---
pt is accepted to [facility] pt signed volentary admission paper work
--- NOTE | 2024-07-14 21:26 | ED_ITS ---
HPI HPI - General Adult General Chief complaint: Nausea/Vomiting/Diarrhea Stated complaint: Nausea/Vomiting/Diarrhea Time Seen by Provider: 07/14/24 17:48 Source: patient Mode of arrival: ambulance History of Present Illness HPI narrative: The patient was initially seen by Dr. Bell and signed out to me after discussing the case with her thoroughly. Please see her full history and physical exam. Related Data Home Medications ?Medication ?Instructions ?Recorded ?Confirmed levothyroxine 75 mcg tablet 75 mcg PO DAILY 04/13/23 06/20/24 lisdexamfetamine 30 mg capsule 30 mg PO DAILY 04/13/23 06/20/24 (Vyvanse) alprazolam 1 mg tablet 1 mg PO BID 08/23/23 06/20/24 estradiol 0.5 mg tablet 0.5 mg PO DAILY 06/20/24 06/20/24 zolpidem 5 mg tablet 5 mg PO DAILY 06/20/24 06/20/24 Previous Rx's ?Medication ?Instructions ?Recorded ondansetron 4 mg disintegrating 4 mg PO DAILY PRN nausea and 06/20/24 tablet vomiting #15 tabs Allergies Allergy/AdvReac Type Severity Reaction Status Date / Time buspirone (From BuSpar) Allergy Verified 04/13/23 02:03 hydroxyzine (From Vistaril) Allergy Verified 04/13/23 02:03 metronidazole (From Flagyl) Allergy Verified 04/23/23 02:42 tramadol Allergy Verified 04/13/23 02:03 sulfamethoxazole (From AdvReac Severe Diarrhea Verified 08/23/23 18:00 Bactrim) trimethoprim (From Bactrim) AdvReac Severe Diarrhea Verified 08/23/23 18:00 SSRIs Allergy Uncoded 04/13/23 02:03 Opioid HPI Opioid Management Most Recent Opioid Data: Last Pain Scale 8 04/23/23 00:00 04/23/23 Ur Phencyclidine Scrn Negative (NEGATIVE) 07/14/24 20:15 07/03 11/26 PFSH PFSH Social History Smoking status: Current every day smoker Little interest or pleasure in doing things: not at all Feeling down, depressed, or hopeless: not at all Exam Constitutional Vital Signs, click to edit/add: Last Vital Signs Temp 99.2 F 07/14/24 17:41 Pulse 81 07/14/24 18:50 Resp 18 07/14/24 21:11 BP 132/78 07/14/24 21:11 Pulse Ox 94 L 07/14/24 18:50 O2 Del Method Room Air 07/14/24 17:41 Course Vital Signs Vital signs: Vital Signs Temperature 99.2 F 07/14/24 17:41 Pulse Rate 83 07/14/24 17:41 Respiratory Rate 20 07/14/24 17:41 Blood Pressure 140/95 H 07/14/24 17:41 Pulse Oximetry 98 07/14/24 17:41 Oxygen Delivery Method Room Air 07/14/24 17:41 Temperature 99.2 F 07/14/24 17:41 Pulse Rate 81 07/14/24 18:50 Respiratory Rate 18 07/14/24 21:11 Blood Pressure 132/78 07/14/24 21:11 Pulse Oximetry 94 L 07/14/24 18:50 Oxygen Delivery Method Room Air 07/14/24 17:41 Medical Decision Making MDM Narrative Medical decision making narrative: Laboratory analysis is essentially negative except for her urine drug screen. She has been interviewed by mental health services and she is going voluntarily to [address] [facility]. Differential Diagnosis Differential Diagnosis: Gastritis, depression Lab Data Lab results reviewed: Yes I reviewed the patient's lab results Labs: Lab Results 07/14/24 07/14/24 Range/Units 18:28 20:15 WBC 6.1 (4.0-11.0) 10^3/uL RBC 4.40 (4.20-5.40) 10^6/uL Hgb 14.6 (12.0-16.0) g/dL Hct 43.3 (36.0-48.0) % MCV 98.4 (81.0-99.0) fL MCH 33.2 (26.7-34.0) pg MCHC 33.7 (29.9-35.2) g/dL RDW 12.1 (11.0-15.0) % Plt Count 262 (150-450) 10^3/uL MPV 11.6 (9.5-13.5) fL Neut % (Auto) 62.0 (43.0-75.0) % Lymph % (Auto) 27.7 (20.5-60.0) % Isabella % (Auto) 7.1 (1.7-12.0) % Eos % (Auto) 2.3 (0.9-7.0) % Baso % (Auto) 0.7 (0.2-2.0) % Neut # (Auto) 3.8 (1.4-6.5) 10^3/uL Lymph # (Auto) 1.7 (1.2-3.8) 10^3/uL Isabella # (Auto) 0.4 (0.3-0.8) 10^3/uL Eos # (Auto) 0.1 (0.0-0.7) 10^3/uL Baso # (Auto) 0.0 (0.0-0.1) 10^3/uL Abs Immat Gran (auto) 0.01 (0.00-0.03) 10^3/uL Imm/Tot Granulo (auto) 0.2 (0.0-0.5) % Sodium 146 H (136-145) mmol/L Potassium 4.2 (3.5-5.1) mmol/L Chloride 105 (98-107) mmol/L Carbon Dioxide 29.5 (21.0-32.0) mmol/L Anion Gap 15.7 BUN 9.0 (7.0-18.0) mg/dL Creatinine 1.00 (0.55-1.02) mg/dL Est GFR ( Amer) >60 (>=60 mL/min/1.73m^2) Est GFR (Non-Af Amer) 58 L (>=60 mL/min/1.73m^2) BUN/Creatinine Ratio 9.0 Glucose 86 (74-106) mg/dL Calcium 9.5 (8.5-10.1) mg/dL Total Bilirubin 0.5 (0.2-1.0) mg/dL AST 84 H (15-37) U/L ALT 109 H (14-59) U/L Alkaline Phosphatase 58 (46-116) U/L Troponin I High Sens <4.0 L (4.0-51.3) pg/mL Total Protein 7.5 (6.4-8.2) g/dL Albumin 3.8 (3.4-5.0) g/dL Globulin 3.7 g/dL Albumin/Globulin Ratio 1.0 Lipase 57.0 (16.0-77.0) U/L Urine Opiates Screen Negative (NEGATIVE) Ur Buprenorphine Scrn Negative (NEGATIVE) Ur Oxycodone Screen Negative (NEGATIVE) Urine Methadone Screen Negative (NEGATIVE) Ur Barbiturates Screen Negative (NEGATIVE) U Tricyclic Antidepress Negative (NEGATIVE) Ur Phencyclidine Scrn Negative (NEGATIVE) Ur Amphetamines Screen Positive A (NEGATIVE) U Methamphetamines Scrn Negative (NEGATIVE) U Benzodiazepines Scrn Positive A (NEGATIVE) Urine Cocaine Screen Negative (NEGATIVE) U Cannabinoids Screen Positive A (NEGATIVE) Ethanol Quant <3 mg/dL Discharge Plan Discharge Chief Complaint: Nausea/Vomiting/Diarrhea Clinical Impression: Depression Patient Disposition: [facility] Time of Disposition Decision: 21:26 Discharge Location: [facility] Condition: Fair Mode of Transportation: EMS
== END 2024-07-14 22:16 ==
PROVIDERS: Emergency Medicine; Emergency Provider Emergency Medicine; PCP Nurse Practitioner Family
DX: F32.A Depression, unspecified (principal); F17.200 Nicotine dependence, unspecified, uncomplicated
CPT/HCPCS: 36415; 80053; 80307; 80320; 83690; 84484; 85025; 93005; 99285; J2060; J2250; J2405

== ENCOUNTER 2024-10-22 12:44 | Emergency (ER) | payer MEDICAID, SELFPAY ==
[2024-10-22 12:55] VITALS: BP 166/104; PULSE 83; TEMP 36.9; O2SAT 98; BMI 33.8
--- NOTE | 2024-10-22 13:24 | ED.ABDPAIN1 ---
HPI - Abdominal Pain General Chief Complaint: Abdominal Pain Stated Complaint: PAIN ON LEFT SIDE OF RIBS Time Seen by Provider: 10/22/24 13:11 Source: patient Mode of arrival: walk-in Limitations: no limitations History of Present Illness HPI narrative: 49-year-old female presents to the emergency department complaint of abdominal pain. Onset yesterday. Locating pain mainly to the left upper quadrant region with radiation into her flank and back. Described as a grabbing, twisting type of pain with associated nausea. Denies any fever, chills, vomiting, diarrhea, dysuria, frequency, hematuria. Past surgical history: Hysterectomy Quality:?As above Severity:?Moderate Timing:?As above, constant Context: Normal setting and activity? Modifying factors:?Worse with palpation, taking deep breath Associated symptoms: As above Related Data Home Medications ?Medication ?Instructions ?Recorded ?Confirmed levothyroxine 75 mcg tablet 75 mcg PO DAILY 04/13/23 06/20/24 lisdexamfetamine 30 mg capsule 30 mg PO DAILY 04/13/23 06/20/24 (Vyvanse) alprazolam 1 mg tablet 1 mg PO BID 08/23/23 06/20/24 estradiol 0.5 mg tablet 0.5 mg PO DAILY 06/20/24 06/20/24 zolpidem 5 mg tablet 5 mg PO DAILY 06/20/24 06/20/24 Previous Rx's ?Medication ?Instructions ?Recorded ondansetron 4 mg disintegrating 4 mg PO DAILY PRN nausea and 06/20/24 tablet vomiting #15 tabs hyoscyamine sulfate 0.125 mg 0.125 mg PO Q8H PRN spasms #10 tabs 10/22/24 tablet (Levsin) ondansetron 4 mg disintegrating 4 mg PO Q8H PRN nausea and 10/22/24 tablet vomiting #10 tabs Allergies Allergy/AdvReac Type Severity Reaction Status Date / Time buspirone (From BuSpar) Allergy Anxiety Verified 10/22/24 13:03 hydroxyzine (From Vistaril) Allergy hyperactive Verified 10/22/24 13:03 metronidazole (From Flagyl) Allergy Hallucinati Verified 10/22/24 13:03 ng tramadol Allergy Seizure Verified 10/22/24 13:03 trimethoprim (From Bactrim) AdvReac Severe Diarrhea Verified 10/22/24 13:03 SSRIs Allergy Suicidal Uncoded 10/22/24 13:03 Review of Systems ROS Narrative CONST: Denies any fever, chills RESP: Denies any shortness of breath CV: Denies any chest pain GI: +abd pain.? + nausea. Denies vomiting, diarrhea. : + flank pain. Denies any dysuria, frequency, hematuria MS: + back pain. SKIN: Denies any color change, rash NEURO: Denies numbness, weakness PSYCHIATRIC: Denies confusion, agitation PFSH PFSH Social History Smoking status: Current every day smoker Little interest or pleasure in doing things: not at all Feeling down, depressed, or hopeless: not at all Exam Narrative Exam Narrative: Vital signs reviewed Nurses notes noted CONST: Nontoxic, uncomfortable appearing, well nourished, in no distress.? No diaphoresis.?? HENT: normocephalic, atraumatic, moist mucous membrane, no abnormalities of the nose noted, hearing normal CV: normal rate, regular rhythm, no murmur RESP: normal effort, speaking in complete sentences. Lung sounds clear and equal bilat.? No wheezes, rales, rhonchi GI: normal bowel sounds, soft, no distension, +tenderness: left side of abd, no rebound or guarding : + left CVA tenderness MS: no edema, tenderness SKIN: no pallor NEURO: A&Ox 3, no focal findings PSYCH: normal mood, affect Constitutional Vital Signs, click to edit/add: Last Vital Signs Temp 98.5 F 10/22/24 12:55 Pulse 68 10/22/24 15:09 Resp 18 10/22/24 15:09 BP 146/92 H 10/22/24 15:09 Pulse Ox 95 10/22/24 15:09 O2 Del Method Room Air 10/22/24 12:55 Course Reevaluation(s) Reevaluation #1: Reevaluation, patient reports improvement of her pain after treatment. Discussed with patient and friend results, plan, and disposition. Patient and friend are agreeable. Time: 16:31 Vital Signs Vital signs: Vital Signs Temperature 98.5 F 10/22/24 12:55 Pulse Rate 83 10/22/24 12:55 Respiratory Rate 16 10/22/24 12:55 Blood Pressure 166/104 H 10/22/24 12:55 Pulse Oximetry 98 10/22/24 12:55 Oxygen Delivery Method Room Air 10/22/24 12:55 Temperature 98.5 F 10/22/24 12:55 Pulse Rate 68 10/22/24 15:09 Respiratory Rate 18 10/22/24 15:09 Blood Pressure 146/92 H 10/22/24 15:09 Pulse Oximetry 95 10/22/24 15:09 Oxygen Delivery Method Room Air 10/22/24 12:55 MDM - Abdominal Pain MDM Narrative Medical decision making narrative: This is a pleasant 49-year-old female who presents to the emergency department for evaluation of left-sided abdominal pain since yesterday with some associated nausea On arrival, afebrile, vital signs are stable Exam, nontoxic, well-appearing patient in no distress. Heart regular rate and rhythm. Lung sounds clear and equal bilaterally. Abdomen is soft with left upper, left mid, left lower quadrant tenderness diffusely. No focal area of maximal tenderness. She does report some left CVA tenderness. IV established, blood work was drawn. She was given morphine and Zofran which improved her pain. Labs reveal no leukocytosis, anemia, thrombocytopenia, electrolyte imbalance, renal impairment. Sugar was 94. LFTs were a little elevated with AST of 59 and ALT of 68. She is currently under evaluation for hepatitis C. Remaining LFTs were within normal limits. Lipase 21. Urinalysis showed moderate leukocyte esterase, 10?12 white blood cells. Patient not reporting any urinary tract infection symptoms. Urine culture was sent. CT abdomen pelvis imaging, per radiologist reveals no acute findings Favor nonspecific abdominal pain Diverticulitis, pyelonephritis less likely based on imaging Pancreatitis less likely based on lab test History and Record Review Additional records reviewed: No records available Additional Tests and Interventions IV Fluids:hydration/inability to tolerate PO Re-Evaluation See ED course Disposition ? The patient was discharged. Prescriptions sent to pharmacy: [facility] Plan: Patient will be discharged to home.? Condition at time of disposition: stable, improved.? Advised to follow up with primary provider. 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 Lab Data Attestation: I reviewed the patient's lab results. Labs: Lab Results 10/22/24 10/22/24 Range/Units 14:02 15:35 WBC 5.5 (4.0-11.0) 10^3/uL RBC 4.31 (4.20-5.40) 10^6/uL Hgb 14.0 (12.0-16.0) g/dL Hct 41.0 (36.0-48.0) % MCV 95.1 (81.0-99.0) fL MCH 32.5 (26.7-34.0) pg MCHC 34.1 (29.9-35.2) g/dL RDW 11.2 (11.0-15.0) % Plt Count 202 (150-450) 10^3/uL MPV 11.5 (9.5-13.5) fL Neut % (Auto) 70.3 (43.0-75.0) % Lymph % (Auto) 20.9 (20.5-60.0) % [place] % (Auto) 6.9 (1.7-12.0) % Eos % (Auto) 1.1 (0.9-7.0) % Baso % (Auto) 0.4 (0.2-2.0) % Neut # (Auto) 3.9 (1.4-6.5) 10^3/uL Lymph # (Auto) 1.2 (1.2-3.8) 10^3/uL [place] # (Auto) 0.4 (0.3-0.8) 10^3/uL Eos # (Auto) 0.1 (0.0-0.7) 10^3/uL Baso # (Auto) 0.0 (0.0-0.1) 10^3/uL Abs Immat Gran (auto) 0.02 (0.00-0.03) 10^3/uL Imm/Tot Granulo (auto) 0.4 (0.0-0.5) % Sodium 143 (136-145) mmol/L Potassium 4.0 (3.5-5.1) mmol/L Chloride 106 (98-107) mmol/L Carbon Dioxide 28.3 (21.0-32.0) mmol/L Anion Gap 12.7 BUN 6.0 L (7.0-18.0) mg/dL Creatinine 0.95 (0.55-1.02) mg/dL Est GFR ( Amer) >60 (>=60 mL/min/1.73m^2) Est GFR (Non-Af Amer) >60 (>=60 mL/min/1.73m^2) BUN/Creatinine Ratio 6.3 Glucose 94 (74-106) mg/dL Calcium 9.2 (8.5-10.1) mg/dL Magnesium 2.0 (1.8-2.4) mg/dL Total Bilirubin 0.4 (0.2-1.0) mg/dL AST 59 H (15-37) U/L ALT 68 H (14-59) U/L Alkaline Phosphatase 63 (46-116) U/L Total Protein 7.3 (6.4-8.2) g/dL Albumin 3.9 (3.4-5.0) g/dL Globulin 3.4 g/dL Albumin/Globulin Ratio 1.1 Lipase 21.0 (16.0-77.0) U/L Urine Color Lt. yellow (YELLOW) Urine Clarity Clear (CLEAR) Urine pH 6.0 (5.0-9.0) Ur Specific [place] 1.015 (1.005-1.025) Urine Protein Negative (NEG/TRACE) mg/dL Urine Glucose (UA) Negative (NEGATIVE) mg/dL Urine Ketones Negative (NEGATIVE) mg/dL Urine Occult Blood Negative (NEGATIVE) Urine Nitrite Negative (NEGATIVE) Urine Bilirubin Negative (NEGATIVE) Urine Urobilinogen 0.2 (0.2-1.0) EU/dL Ur Leukocyte Esterase Moderate A (NEGATIVE) Urine RBC 0-2 (0-2) #/HPF Urine WBC 10-20 A (NONE SEEN) #/HPF Ur Squamous Epith Cells Rare (NONE/RARE) #/LPF Urine Crystals None seen (None Seen) #/HPF Urine Bacteria Trace A (NONE SEEN) #/HPF Urine Casts None seen (NONE SEEN) #/LPF Urine Mucus None seen (NONE SEEN) Ur Culture Indicated? Yes Imaging Data CT scan - abdomen: Radiologist's impression: ITS Impressions Abdomen/Pelvis CT 10/22/24 15:26 IMPRESSION: No acute abnormality in the abdomen or pelvis. Electronically authenticated by: RADHA WESTFALL Date: 10/22/2024 16:11 Discharge Plan Discharge Chief Complaint: Abdominal Pain Clinical Impression: Left sided abdominal pain, Nausea Patient Disposition: Home, Self-Care Time of Disposition Decision: 16:30 Condition: Good Mode of Transportation: Private Vehicle Prescriptions / Home Meds: New hyoscyamine sulfate [Levsin] 0.125 mg tablet 0.125 mg PO Q8H PRN (Reason: spasms) Qty: 10 0RF ondansetron 4 mg tablet,disintegrating 4 mg PO Q8H PRN (Reason: nausea and vomiting) Qty: 10 0RF No Action levothyroxine 75 mcg tablet 75 mcg PO DAILY lisdexamfetamine [Vyvanse] 30 mg capsule 30 mg PO DAILY estradiol 0.5 mg tablet 0.5 mg PO DAILY zolpidem 5 mg tablet 5 mg PO DAILY ondansetron 4 mg tablet,disintegrating 4 mg PO DAILY PRN (Reason: nausea and vomiting) Qty: 15 0RF alprazolam 1 mg tablet 1 mg PO BID Print Language: Ethiopian Instructions: Abdominal Pain (ED) Referrals: Stephanie Bowser NP [Primary Care Provider] - 1 week Discharge Date/Time: 10/22/24 16:47
[2024-10-22 14:10] LABS: Basophils Percent Auto 0.4 % (0.2-2.0); Eosinophils Absolute Auto 0.1 10^3/uL (0.0-0.7); Eosinophils Percent Auto 1.1 % (0.9-7.0); Immature Granulocytes Abs Auto 0.02 10^3/uL (0.00-0.03); Immature Granulocytes Pct Auto 0.4 % (0.0-0.5); Lymphocytes Absolute Auto 1.2 10^3/uL (1.2-3.8); Lymphocytes Percent Auto 20.9 % (20.5-60.0); Mean Corpuscular HGB Conc 34.1 g/dL (29.9-35.2); Mean Corpuscular Hemoglobin 32.5 pg (26.7-34.0); Mean Corpuscular Volume 95.1 fL (81.0-99.0); Mean Platelet Volume 11.5 fL (9.5-13.5); Monocytes Absolute Auto 0.4 10^3/uL (0.3-0.8); Monocytes Percent Auto 6.9 % (1.7-12.0); Neutrophils Absolute Auto 3.9 10^3/uL (1.4-6.5); Neutrophils Percent Auto 70.3 % (43.0-75.0); Platelet Count 202 10^3/uL (150-450); Red Blood Count 4.31 10^6/uL (4.20-5.40); Red Cell Distribution Width 11.2 % (11.0-15.0); White Blood Count 5.5 10^3/uL (4.0-11.0)
[2024-10-22 14:27] LABS: Alanine Aminotransferase 68 U/L (14-59); Albumin Globulin Ratio 1.1; Albumin Level 3.9 g/dL (3.4-5.0); Alkaline Phosphatase 63 U/L (46-116); Anion Gap 12.7; Aspartate Amino Transferase 59 U/L (15-37); BUN Creatinine Ratio 6.3; Bilirubin Total 0.4 mg/dL (0.2-1.0); Calcium 9.2 mg/dL (8.5-10.1); Carbon Dioxide 28.3 mmol/L (21.0-32.0); Chloride 106 mmol/L (98-107); Estimated GFR (African America >60 (>=60 mL/min/1.73m^2); Estimated GFR (Non-African Ame >60 (>=60 mL/min/1.73m^2); Globulin 3.4 g/dL; Glucose 94 mg/dL (74-106); Sodium 143 mmol/L (136-145); Total Protein 7.3 g/dL (6.4-8.2)
[2024-10-22] MEDS: ONDANSETRON PF 4 MG/2 ML VIAL IV (14:59)
[2024-10-22] MEDS: MORPHINE SULFATE 4 MG/ML VIAL IV (14:59)
[2024-10-22] MEDS: 0.9 % SODIUM CHLORIDE 1,000 ML 999 ML IV (14:59)
[2024-10-22 15:09] VITALS: BP 146/92; PULSE 68; O2SAT 95
--- NOTE | 2024-10-22 15:26 | CT_ITS ---
The [address] [address] Patient Name: LOYDA MITTAL MRN: [id number] date: 1975 Sex: F Assigned Patient Location: ER Current Patient Location: ER Accession/Order Number: [id number] Exam Date: 10/22/2024 15:10 Report Date: 10/22/2024 16:11 At the request of: GELACIO LLAMAS Procedure: CT abdomen pelvis w con CT ABDOMEN/PELVIS WITH IV CONTRAST. INDICATION: Left sided abd pain. COMPARISON: There are no other studies available for comparison. TECHNIQUE: Contiguous axial images were obtained from the lung bases to the pelvic floor following the intravenous administration of contrast. Coronal and sagittal reformations are provided. FINDINGS: LOWER LUNGS: Clear. LIVER/BILIARY TREE: No mass. No intrahepatic ductal dilatation. GALLBLADDER: No significant gallbladder wall thickening. No radiopaque stone. CBD: Normal CBD. SPLEEN: Normal in size. PANCREAS: No acute findings. No peripancreatic fluid or inflammation. No pancreatic duct dilatation. No discrete mass. ADRENALS: Normal. KIDNEYS: No hydronephrosis. No radiopaque calculus. STOMACH AND BOWEL: Stomach is unremarkable. No dilated bowel loops. No bowel wall thickening. APPENDIX: Normal appendix. PERITONEAL CAVITY: No fluid. No fat stranding. ABDOMINAL WALL: No subcutaneous stranding. No subcutaneous fluid collection. LYMPH NODES: No mesenteric or retroperitoneal lymphadenopathy by CT criteria. ABDOMINAL AORTA: No aneurysm. PELVIS: No acute abnormality. MUSCULOSKELETAL: No acute osseous abnormality. CT/CT abdomen pelvis w con IMPRESSION: No acute abnormality in the abdomen or pelvis. Electronically authenticated by: RADHA WESTFALL Date: 10/22/2024 16:11
[2024-10-22 15:43] LABS: Bilirubin Urine NEGATIVE (NEGATIVE); Blood Urine NEGATIVE (NEGATIVE); Clarity Urine CLEAR (CLEAR); Color Urine LT. YELLOW (YELLOW); Glucose Urine UA NEGATIVE (NEGATIVE); Ketones Urine NEGATIVE (NEGATIVE); Leukocyte Esterase Urine MODERATE (NEGATIVE); Nitrite Urine NEGATIVE (NEGATIVE); Protein Urine NEGATIVE (NEG/TRACE); Specific Gravity Urine 1.015 (1.005-1.025); Urobilinogen Urine 0.2 EU/dL (0.2-1.0)
[2024-10-22 15:50] LABS: Bacteria Urine TRACE #/HPF (NONE SEEN); Crystals Seen? None Seen #/HPF (None Seen); Mucus Urine NONE SEEN (NONE SEEN); RBC Urine 0-2 #/HPF (0-2); Squamous Epithelial Cell Urine RARE #/LPF (NONE/RARE)
[2024-10-22 15:51] LABS: Cast Seen? NONE SEEN #/LPF (NONE SEEN); Urine Culture Indicated YES
== END 2024-10-22 16:47 | disposition home or self-care (01) ==
PROVIDERS: Physician Assistant; Emergency Provider Emergency Medicine; PCP Nurse Practitioner Family
DX: R10.12 Left upper quadrant pain (principal); R11.0 Nausea; Z90.710 Acquired absence of both cervix and uterus; F17.200 Nicotine dependence, unspecified, uncomplicated
CPT/HCPCS: 36415; 74177; 80053; 81001; 83690; 83735; 85025; 87086; 96374; 96375; 99285; J2270; J2405; Q9967

== ENCOUNTER 2024-11-30 12:46 | Emergency (ER) | payer MEDICAID, SELFPAY ==
[2024-11-30 12:52] VITALS: BP 153/94; PULSE 107; TEMP 37; O2SAT 97; BMI 33.8
--- NOTE | 2024-11-30 13:10 | ECG_ITS ---
The [facility] Test Date: 2024-11-30 Pat Name: LOYDA MITTAL Department: Room: - Gender: Female Campaign Consultant: : 1975 Requested By: [id number] Order Number: [id number] Reading MD: RICHMOND MACKEY Measurements Intervals [place] Rate: 92 P: 36 [place]: 128 QRS: 28 QRSD: 78 T: 47 QT: 348 QTc: 398 Interpretive Statements 1100 Sinus rhythm 8102 Low QRS voltage in chest leads 9120 atypical ECG Compared to ECG 07/14/2024 17:49:13 Low QRS voltage now present Electronically Signed On 12-02-2024 8:07:13 EST by RICHMOND MACKEY
[2024-11-30 13:34] LABS: Basophils Percent Auto 0.5 % (0.2-2.0); Eosinophils Percent Auto 0.7 % (0.9-7.0); Hematocrit 41.5 % (36.0-48.0); Hemoglobin 14.6 g/dL (12.0-16.0); Immature Granulocytes Abs Auto 0.01 10^3/uL (0.00-0.03); Immature Granulocytes Pct Auto 0.2 % (0.0-0.5); Lymphocytes Absolute Auto 1.1 10^3/uL (1.2-3.8); Lymphocytes Percent Auto 19.3 % (20.5-60.0); Mean Corpuscular HGB Conc 35.2 g/dL (29.9-35.2); Mean Corpuscular Volume 93.7 fL (81.0-99.0); Mean Platelet Volume 11.1 fL (9.5-13.5); Monocytes Absolute Auto 0.4 10^3/uL (0.3-0.8); Monocytes Percent Auto 6.1 % (1.7-12.0); Neutrophils Absolute Auto 4.2 10^3/uL (1.4-6.5); Neutrophils Percent Auto 73.2 % (43.0-75.0); Platelet Count 220 10^3/uL (150-450); Red Blood Count 4.43 10^6/uL (4.20-5.40); Red Cell Distribution Width 11.7 % (11.0-15.0); White Blood Count 5.8 10^3/uL (4.0-11.0)
[2024-11-30 13:40] LABS: Bilirubin Urine NEGATIVE (NEGATIVE); Blood Urine NEGATIVE (NEGATIVE); Clarity Urine CLEAR (CLEAR); Color Urine LT. YELLOW (YELLOW); Glucose Urine UA NEGATIVE (NEGATIVE); Ketones Urine NEGATIVE (NEGATIVE); Leukocyte Esterase Urine TRACE (NEGATIVE); Nitrite Urine NEGATIVE (NEGATIVE); Protein Urine NEGATIVE (NEG/TRACE); Specific Gravity Urine 1.025 (1.005-1.025); Urobilinogen Urine 0.2 EU/dL (0.2-1.0)
[2024-11-30 13:52] LABS: Amphetamine Screen Urine NEGATIVE (NEGATIVE); Barbiturates Screen Urine NEGATIVE (NEGATIVE); Benzodiazepines Screen Urine POSITIVE (NEGATIVE); Buprenorphine Screen Urine NEGATIVE (NEGATIVE); Cannabinoid Screen Urine POSITIVE (NEGATIVE); Cocaine Screen Urine NEGATIVE (NEGATIVE); Methadone Screen Urine NEGATIVE (NEGATIVE); Methamphetamines Screen Urine NEGATIVE (NEGATIVE); Opiate Screen Urine NEGATIVE (NEGATIVE); Oxycodone Screen Urine NEGATIVE (NEGATIVE); Phencyclidine Screen Urine NEGATIVE (NEGATIVE); Tricyclic Antidepressant Urine POSITIVE (NEGATIVE)
--- NOTE | 2024-11-30 14:01 | PC.NURSE ---
Call placed to [facility] and spoke with Janie. Lab work and face sheet faxed to [facility]. Awaiting call back from counselor.
[2024-11-30 14:07] LABS: Bacteria Urine SMALL #/HPF (NONE SEEN); Cast Seen? NONE SEEN #/LPF (NONE SEEN); Crystals Seen? None Seen #/HPF (None Seen); Mucus Urine MODERATE (NONE SEEN); RBC Urine 0-2 #/HPF (0-2); Squamous Epithelial Cell Urine FEW #/LPF (NONE/RARE); Urine Culture Indicated YES-FRMC
[2024-11-30 14:16] LABS: Alanine Aminotransferase 154 U/L (14-59); Albumin Globulin Ratio 1.1; Albumin Level 3.8 g/dL (3.4-5.0); Alkaline Phosphatase 56 U/L (46-116); Anion Gap 9.3; Aspartate Amino Transferase 111 U/L (15-37); BUN Creatinine Ratio 10.6; Bilirubin Total 0.4 mg/dL (0.2-1.0); Carbon Dioxide 27.6 mmol/L (21.0-32.0); Chloride 106 mmol/L (98-107); Estimated GFR (African America >60 (>=60 mL/min/1.73m^2); Estimated GFR (Non-African Ame >60 (>=60 mL/min/1.73m^2); Globulin 3.6 g/dL; Glucose 94 mg/dL (74-106); Potassium 3.9 mmol/L (3.5-5.1); Sodium 139 mmol/L (136-145); Total Protein 7.4 g/dL (6.4-8.2)
[2024-11-30 14:24] LABS: Thyroid Stimulating Hormone 0.111 uIU/mL (0.358-3.740)
[2024-11-30 14:28] LABS: Acetaminophen <2.0 ug/mL (10.0-30.0); Ethanol <3 mg/dL
--- NOTE | 2024-11-30 16:16 | ED.GENADUL1 ---
Documented by User: Gris Ferguson 11/30/24 16:21 HPI HPI - General Adult General Chief complaint: Psychiatric Symptoms Stated complaint: DEPRESSION, SUICIDAL IDEATION Time Seen by Provider: 11/30/24 13:10 History of Present Illness HPI narrative: 49-year-old female with a history of depression presents herself to the emergency room today for hospitalization. She states she has had increased suicidal ideations at home. She has had this multiple times in the past but today did not want to act on it. She states she is seeking help. She was at [facility] last week and sister talked her out of being admitted. Patient states she is not comfortable staying at home. She has not acted on her impulses. She is alert and oriented. She states she took an Ativan prior to arrival today. Other than that she denies any drug or alcohol abuse today. She states she does occasionally smoke marijuana. She is calm and cooperative at this time. Related Data Home Medications ?Medication ?Instructions ?Recorded ?Confirmed levothyroxine 75 mcg tablet 75 mcg PO DAILY 04/13/23 11/30/24 lisdexamfetamine 30 mg capsule 30 mg PO DAILY 04/13/23 11/30/24 (Vyvanse) alprazolam 1 mg tablet 1 mg PO BID 08/23/23 11/30/24 estradiol 0.5 mg tablet 0.5 mg PO DAILY 06/20/24 11/30/24 zolpidem 5 mg tablet 5 mg PO DAILY 06/20/24 06/20/24 bupropion HCl 300 mg 24 hr tablet, 300 mg PO DAILY 11/30/24 11/30/24 extended release Previous Rx's ?Medication ?Instructions ?Recorded ondansetron 4 mg disintegrating 4 mg PO DAILY PRN nausea and 06/20/24 tablet vomiting #15 tabs hyoscyamine sulfate 0.125 mg 0.125 mg PO Q8H PRN spasms #10 tabs 10/22/24 tablet (Levsin) ondansetron 4 mg disintegrating 4 mg PO Q8H PRN nausea and 10/22/24 tablet vomiting #10 tabs Allergies Allergy/AdvReac Type Severity Reaction Status Date / Time buspirone (From BuSpar) Allergy Anxiety Verified 11/30/24 13:03 hydroxyzine (From Vistaril) Allergy hyperactive Verified 11/30/24 13:03 metronidazole (From Flagyl) Allergy Hallucinati Verified 11/30/24 13:03 ng tramadol Allergy Seizure Verified 11/30/24 13:03 trimethoprim (From Bactrim) AdvReac Severe Diarrhea Verified 11/30/24 13:03 SSRIs Allergy Suicidal Uncoded 11/30/24 13:03 Opioid HPI Opioid Management Most Recent Opioid Data: Last Pain Scale 7 10/22/24 14:59 10/22/24 Ur Phencyclidine Scrn Negative (NEGATIVE) 11/30/24 13:10 11/30/24 Review of Systems ROS Narrative All Systems are negative except as noted/marked.All systems reviewed and otherwise negative PFSH PFSH Social History Smoking status: Current every day smoker Little interest or pleasure in doing things: nearly every day Feeling down, depressed, or hopeless: nearly every day Exam Narrative Exam Narrative: Nurses note and vital signs reviewed and patient is not hypoxic. General: The patient appears depressed, tearful, cooperative Skin: Warm, dry, no pallor noted. There is no rash noted. Head: Normocephalic, atraumatic Eye: Normal conjunctiva, no drainage, EOMI. PERRL Ears, Nose, Mouth, and Throat: oral mucosa is moist. Nares patent. Mouth without vesicles. Ear canals patent. Tm's without Erythema Cardiovascular: Regular Rate and Rhythm Respiratory: Patient is in no distress, no accessory muscle use, lungs are clear to auscultation, no wheezing, rales or rhonchi Back: non-tender, no CVA tenderness bilaterally to percussion. GI: Normal bowel sounds, no tenderness to palpation, no masses appreciated. No rebound, guarding, or rigidity noted. Musculoskeletal: The patient has no evidence of calf tenderness, no pitting edema, symmetrical pulses noted bilaterally Neurological: A&O x4, normal speech Psychiatric: Depressed, cooperative Constitutional Vital Signs, click to edit/add: Last Vital Signs Temp 98.6 F 11/30/24 12:52 Pulse 107 H 11/30/24 12:52 Resp 14 11/30/24 12:52 BP 153/94 H 11/30/24 12:52 Pulse Ox 97 11/30/24 12:52 Course Vital Signs Vital signs: Vital Signs Temperature 98.6 F 11/30/24 12:52 Pulse Rate 107 H 11/30/24 12:52 Respiratory Rate 14 11/30/24 12:52 Blood Pressure 153/94 H 11/30/24 12:52 Pulse Oximetry 97 11/30/24 12:52 Temperature 98.6 F 11/30/24 12:52 Pulse Rate 107 H 11/30/24 12:52 Respiratory Rate 14 11/30/24 12:52 Blood Pressure 153/94 H 11/30/24 12:52 Pulse Oximetry 97 11/30/24 12:52 Medical Decision Making MDM Narrative Medical decision making narrative: 49-year-old female with a history of depression presents herself to the emergency room today for hospitalization. She states she has had increased suicidal ideations at home. She has had this multiple times in the past but today did not want to act on it. She states she is seeking help. She was at [facility] parking lot last week and sister talked her out of being admitted. Patient states she is not comfortable staying at home. She has not acted on her impulses. She is alert and oriented. She states she took an Ativan prior to arrival today. Other than that she denies any drug or alcohol abuse today. She states she does occasionally smoke marijuana. She is calm and cooperative at this time. [id number] here with chief complaint of suicidal ideations. She is medically cleared. Patient has talked to [facility] 1 S. patient has agreed to self admission. transport to be here to pick her up in 20 minutes. Patient is calm and cooperative. Diagnosis of major depressive disorder. Differential Diagnosis Differential Diagnosis: depression, suicidal ideations Medical Records Medical records reviewed: Yes I reviewed the patient's medical records Lab Data Lab results reviewed: Yes I reviewed the patient's lab results Labs: Lab Results 11/30/24 11/30/24 11/30/24 Range/Units 13:10 13:27 13:55 WBC 5.8 (4.0-11.0) 10^3/uL RBC 4.43 (4.20-5.40) 10^6/uL Hgb 14.6 (12.0-16.0) g/dL Hct 41.5 (36.0-48.0) % MCV 93.7 (81.0-99.0) fL MCH 33.0 (26.7-34.0) pg MCHC 35.2 (29.9-35.2) g/dL RDW 11.7 (11.0-15.0) % Plt Count 220 (150-450) 10^3/uL MPV 11.1 (9.5-13.5) fL Neut % (Auto) 73.2 (43.0-75.0) % Lymph % (Auto) 19.3 L (20.5-60.0) % [place] % (Auto) 6.1 (1.7-12.0) % Eos % (Auto) 0.7 L (0.9-7.0) % Baso % (Auto) 0.5 (0.2-2.0) % Neut # (Auto) 4.2 (1.4-6.5) 10^3/uL Lymph # (Auto) 1.1 L (1.2-3.8) 10^3/uL [place] # (Auto) 0.4 (0.3-0.8) 10^3/uL Eos # (Auto) 0.0 (0.0-0.7) 10^3/uL Baso # (Auto) 0.0 (0.0-0.1) 10^3/uL Abs Immat Gran (auto) 0.01 (0.00-0.03) 10^3/uL Imm/Tot Granulo (auto) 0.2 (0.0-0.5) % Sodium 139 (136-145) mmol/L Potassium 3.9 (3.5-5.1) mmol/L Chloride 106 (98-107) mmol/L Carbon Dioxide 27.6 (21.0-32.0) mmol/L Anion Gap 9.3 BUN 10.0 (7.0-18.0) mg/dL Creatinine 0.94 (0.55-1.02) mg/dL Est GFR ( Amer) >60 (>=60 mL/min/1.73m^2) Est GFR (Non-Af Amer) >60 (>=60 mL/min/1.73m^2) BUN/Creatinine Ratio 10.6 Glucose 94 (74-106) mg/dL Calcium 9.0 (8.5-10.1) mg/dL Total Bilirubin 0.4 (0.2-1.0) mg/dL AST 111 H (15-37) U/L ALT 154 H (14-59) U/L Alkaline Phosphatase 56 (46-116) U/L Total Protein 7.4 (6.4-8.2) g/dL Albumin 3.8 (3.4-5.0) g/dL Globulin 3.6 g/dL Albumin/Globulin Ratio 1.1 TSH 0.111 L (0.358-3.740) uIU/mL Urine Color Lt. yellow (YELLOW) Urine Clarity Clear (CLEAR) Urine pH 6.0 (5.0-9.0) Ur Specific [place] 1.025 (1.005-1.025) Urine Protein Negative (NEG/TRACE) mg/dL Urine Glucose (UA) Negative (NEGATIVE) mg/dL Urine Ketones Negative (NEGATIVE) mg/dL Urine Occult Blood Negative (NEGATIVE) Urine Nitrite Negative (NEGATIVE) Urine Bilirubin Negative (NEGATIVE) Urine Urobilinogen 0.2 (0.2-1.0) EU/dL Ur Leukocyte Esterase Trace A (NEGATIVE) Urine RBC 0-2 (0-2) #/HPF Urine WBC 5-10 A (NONE SEEN) #/HPF Ur Squamous Epith Cells Few A (NONE/RARE) #/LPF Urine Crystals None seen (None Seen) #/HPF Urine Bacteria Small A (NONE SEEN) #/HPF Urine Casts None seen (NONE SEEN) #/LPF Urine Mucus Moderate A (NONE SEEN) Ur Culture Indicated? Yes-[facility] Urine Opiates Screen Negative (NEGATIVE) Ur Buprenorphine Scrn Negative (NEGATIVE) Ur Oxycodone Screen Negative (NEGATIVE) Urine Methadone Screen Negative (NEGATIVE) Acetaminophen <2.0 L (10.0-30.0) ug/mL Ur Barbiturates Screen Negative (NEGATIVE) U Tricyclic Antidepress Positive A (NEGATIVE) Ur Phencyclidine Scrn Negative (NEGATIVE) Ur Amphetamines Screen Negative (NEGATIVE) U Methamphetamines Scrn Negative (NEGATIVE) U Benzodiazepines Scrn Positive A (NEGATIVE) Urine Cocaine Screen Negative (NEGATIVE) U Cannabinoids Screen Positive A (NEGATIVE) Ethanol Quant <3 mg/dL Discharge Plan Discharge Chief Complaint: Psychiatric Symptoms Clinical Impression: Depression Patient Disposition: [facility] Time of Disposition Decision: 16:21 Discharge Location: [facility] Mode of Transportation: Mental Health Car Discharge Date/Time: 11/30/24 16:45 Documented by User: Dimitri Toledo MD 11/30/24 20:38 HPI HPI - General Adult General Chief complaint: Psychiatric Symptoms Stated complaint: DEPRESSION, SUICIDAL IDEATION Time Seen by Provider: 11/30/24 13:10 Related Data Home Medications ?Medication ?Instructions ?Recorded ?Confirmed levothyroxine 75 mcg tablet 75 mcg PO DAILY 04/13/23 11/30/24 lisdexamfetamine 30 mg capsule 30 mg PO DAILY 04/13/23 11/30/24 (Vyvanse) alprazolam 1 mg tablet 1 mg PO BID 08/23/23 11/30/24 estradiol 0.5 mg tablet 0.5 mg PO DAILY 06/20/24 11/30/24 zolpidem 5 mg tablet 5 mg PO DAILY 06/20/24 06/20/24 bupropion HCl 300 mg 24 hr tablet, 300 mg PO DAILY 11/30/24 11/30/24 extended release Previous Rx's ?Medication ?Instructions ?Recorded ondansetron 4 mg disintegrating 4 mg PO DAILY PRN nausea and 06/20/24 tablet vomiting #15 tabs hyoscyamine sulfate 0.125 mg 0.125 mg PO Q8H PRN spasms #10 tabs 10/22/24 tablet (Levsin) ondansetron 4 mg disintegrating 4 mg PO Q8H PRN nausea and 10/22/24 tablet vomiting #10 tabs Allergies Allergy/AdvReac Type Severity Reaction Status Date / Time buspirone (From BuSpar) Allergy Anxiety Verified 11/30/24 13:03 hydroxyzine (From Vistaril) Allergy hyperactive Verified 11/30/24 13:03 metronidazole (From Flagyl) Allergy Hallucinati Verified 11/30/24 13:03 ng tramadol Allergy Seizure Verified 11/30/24 13:03 trimethoprim (From Bactrim) AdvReac Severe Diarrhea Verified 11/30/24 13:03 SSRIs Allergy Suicidal Uncoded 11/30/24 13:03 Opioid HPI Opioid Management Most Recent Opioid Data: Last Pain Scale 7 10/22/24 14:59 10/22/24 Ur Phencyclidine Scrn Negative (NEGATIVE) 11/30/24 13:10 11/30/24 PFSH PFSH Social History Smoking status: Current every day smoker Little interest or pleasure in doing things: nearly every day Feeling down, depressed, or hopeless: nearly every day Exam Constitutional Vital Signs, click to edit/add: Last Vital Signs Temp 98.6 F 11/30/24 12:52 Pulse 107 H 11/30/24 12:52 Resp 14 11/30/24 12:52 BP 153/94 H 11/30/24 12:52 Pulse Ox 97 11/30/24 12:52 Course Vital Signs Vital signs: Vital Signs Temperature 98.6 F 11/30/24 12:52 Pulse Rate 107 H 11/30/24 12:52 Respiratory Rate 14 11/30/24 12:52 Blood Pressure 153/94 H 11/30/24 12:52 Pulse Oximetry 97 11/30/24 12:52 Temperature 98.6 F 11/30/24 12:52 Pulse Rate 107 H 11/30/24 12:52 Respiratory Rate 14 11/30/24 12:52 Blood Pressure 153/94 H 11/30/24 12:52 Pulse Oximetry 97 11/30/24 12:52 Medical Decision Making MDM Narrative Medical decision making narrative: 49-year-old female with a history of depression presents herself to the emergency room today for hospitalization. She states she has had increased suicidal ideations at home. She has had this multiple times in the past but today did not want to act on it. She states she is seeking help. She was at [facility] parking lot last week and sister talked her out of being admitted. Patient states she is not comfortable staying at home. She has not acted on her impulses. She is alert and oriented. She states she took an Ativan prior to arrival today. Other than that she denies any drug or alcohol abuse today. She states she does occasionally smoke marijuana. She is calm and cooperative at this time. [id number] here with chief complaint of suicidal ideations. She is medically cleared. Patient has talked to [facility] 1 S. patient has agreed to self admission. transport to be here to pick her up in 20 minutes. Patient is calm and cooperative. Diagnosis of major depressive disorder. Critical care time 35 minutes exclusive from separate billable procedures that were performed. The following was considered in the determination of critical care but not limited to the level of medical decision making, intensive cardiac and/or respiratory monitoring, frequent vital sign monitoring, evaluation of laboratory studies, evaluation of radiographic studies, oxygen monitoring, and constant monitoring and speaking to family at bedside I, Dr Toledo, have reviewed the above progress note and course of action in the ER; agree with the above. I have gone over history and physical, and discussed disposition and treatment plan with the PA. Lab Data Labs: Lab Results 11/30/24 11/30/24 11/30/24 Range/Units 13:10 13:27 13:55 WBC 5.8 (4.0-11.0) 10^3/uL RBC 4.43 (4.20-5.40) 10^6/uL Hgb 14.6 (12.0-16.0) g/dL Hct 41.5 (36.0-48.0) % MCV 93.7 (81.0-99.0) fL MCH 33.0 (26.7-34.0) pg MCHC 35.2 (29.9-35.2) g/dL RDW 11.7 (11.0-15.0) % Plt Count 220 (150-450) 10^3/uL MPV 11.1 (9.5-13.5) fL Neut % (Auto) 73.2 (43.0-75.0) % Lymph % (Auto) 19.3 L (20.5-60.0) % [place] % (Auto) 6.1 (1.7-12.0) % Eos % (Auto) 0.7 L (0.9-7.0) % Baso % (Auto) 0.5 (0.2-2.0) % Neut # (Auto) 4.2 (1.4-6.5) 10^3/uL Lymph # (Auto) 1.1 L (1.2-3.8) 10^3/uL [place] # (Auto) 0.4 (0.3-0.8) 10^3/uL Eos # (Auto) 0.0 (0.0-0.7) 10^3/uL Baso # (Auto) 0.0 (0.0-0.1) 10^3/uL Abs Immat Gran (auto) 0.01 (0.00-0.03) 10^3/uL Imm/Tot Granulo (auto) 0.2 (0.0-0.5) % Sodium 139 (136-145) mmol/L Potassium 3.9 (3.5-5.1) mmol/L Chloride 106 (98-107) mmol/L Carbon Dioxide 27.6 (21.0-32.0) mmol/L Anion Gap 9.3 BUN 10.0 (7.0-18.0) mg/dL Creatinine 0.94 (0.55-1.02) mg/dL Est GFR ( Amer) >60 (>=60 mL/min/1.73m^2) Est GFR (Non-Af Amer) >60 (>=60 mL/min/1.73m^2) BUN/Creatinine Ratio 10.6 Glucose 94 (74-106) mg/dL Calcium 9.0 (8.5-10.1) mg/dL Total Bilirubin 0.4 (0.2-1.0) mg/dL AST 111 H (15-37) U/L ALT 154 H (14-59) U/L Alkaline Phosphatase 56 (46-116) U/L Total Protein 7.4 (6.4-8.2) g/dL Albumin 3.8 (3.4-5.0) g/dL Globulin 3.6 g/dL Albumin/Globulin Ratio 1.1 TSH 0.111 L (0.358-3.740) uIU/mL Urine Color Lt. yellow (YELLOW) Urine Clarity Clear (CLEAR) Urine pH 6.0 (5.0-9.0) Ur Specific [place] 1.025 (1.005-1.025) Urine Protein Negative (NEG/TRACE) mg/dL Urine Glucose (UA) Negative (NEGATIVE) mg/dL Urine Ketones Negative (NEGATIVE) mg/dL Urine Occult Blood Negative (NEGATIVE) Urine Nitrite Negative (NEGATIVE) Urine Bilirubin Negative (NEGATIVE) Urine Urobilinogen 0.2 (0.2-1.0) EU/dL Ur Leukocyte Esterase Trace A (NEGATIVE) Urine RBC 0-2 (0-2) #/HPF Urine WBC 5-10 A (NONE SEEN) #/HPF Ur Squamous Epith Cells Few A (NONE/RARE) #/LPF Urine Crystals None seen (None Seen) #/HPF Urine Bacteria Small A (NONE SEEN) #/HPF Urine Casts None seen (NONE SEEN) #/LPF Urine Mucus Moderate A (NONE SEEN) Ur Culture Indicated? Yes-[facility] Urine Opiates Screen Negative (NEGATIVE) Ur Buprenorphine Scrn Negative (NEGATIVE) Ur Oxycodone Screen Negative (NEGATIVE) Urine Methadone Screen Negative (NEGATIVE) Acetaminophen <2.0 L (10.0-30.0) ug/mL Ur Barbiturates Screen Negative (NEGATIVE) U Tricyclic Antidepress Positive A (NEGATIVE) Ur Phencyclidine Scrn Negative (NEGATIVE) Ur Amphetamines Screen Negative (NEGATIVE) U Methamphetamines Scrn Negative (NEGATIVE) U Benzodiazepines Scrn Positive A (NEGATIVE) Urine Cocaine Screen Negative (NEGATIVE) U Cannabinoids Screen Positive A (NEGATIVE) Ethanol Quant <3 mg/dL Discharge Plan Discharge Chief Complaint: Psychiatric Symptoms Clinical Impression: Depression Patient Disposition: [facility] Time of Disposition Decision: 16:21 Discharge Location: [facility] Mode of Transportation: Mental Health Car Discharge Date/Time: 11/30/24 16:45
== END 2024-11-30 16:45 ==
PROVIDERS: Physician Assistant; Emergency Provider Emergency Medicine; PCP Nurse Practitioner Family
DX: F32.A Depression, unspecified (principal); F17.200 Nicotine dependence, unspecified, uncomplicated
CPT/HCPCS: 36415; 80053; 80307; 80320; 80329; 81001; 84443; 85025; 87086; 93005; 99285

== ENCOUNTER 2025-03-20 08:12 | Emergency (ER) | payer MEDICAID, SELFPAY ==
[2025-03-20 08:14] VITALS: BP 157/99; PULSE 102; TEMP 36.7; O2SAT 96; BMI 32.9
--- NOTE | 2025-03-20 08:22 | ECG_ITS ---
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 Measurements Intervals [place] Rate: 90 P: 30 TN: 148 QRS: 63 QRSD: 78 T: 69 QT: 356 QTc: 404 Interpretive Statements 1100 Sinus rhythm 8102 Low QRS voltage in chest leads 9120 atypical ECG Compared to ECG 11/30/2024 13:23:49 No significant changes Electronically Signed On 03-20-2025 21:03:21 EDT by SANGEETHA MELÉNDEZ M.D.
--- NOTE | 2025-03-20 08:24 | ED.GENADUL1 ---
HPI HPI - General Adult General Chief complaint: Psychiatric Symptoms Stated complaint: SUCIDIAL Time Seen by Provider: 03/20/25 08:20 Source: patient Mode of arrival: ambulance Limitations: no limitations History of Present Illness HPI narrative: Patient is presenting by EMS with chief concern of suicidal ideation, and thoughts of cutting herself. Patient lives by herself in apartment. Patient feels extremely isolated. Patient has nobody to talk to, she has nobody that comes to see her in her apartment. She has no friends. Patient states that she has no privacy at her apartment complex as well because she has to walk and work but he can see her. She has nowhere to go outside to sit by herself and enjoy the sunshine. Patient is having multiple symptoms of feeling helpless, hopeless, worthless. Patient states he has 3 suicide attempts in the past. Patient has overdosed on pills once and try to cut herself twice. Patient is thinking of cutting herself again today. Patient says that she has a psychiatrist in [place]. Patient has appointment next , March 28 with her psychiatrist. Patient has 2 children, a 29-year-old and a 15-year-old. Patient also has a 4-year-old grandson. Patient states she smokes 2 cigarettes a day. Patient does have a history of illegal drug use. Patient currently only smokes marijuana, patient states she is prescribed Xanax and Vyvanse. Patient says she takes Vyvanse intermittently. Patient takes thyroid medication, also uses Xanax to help with anxiety. Patient not prescribed any type of daily medication for depression, anxiety and stress. Patient admits to depression. Patient is on disability for mental health. Patient initially was a voluntary admission, patient wanted to go to be admitted to the hospital. I spoke to the patient when mother arrived. Patient is now turning her story where she does not want be admitted to the hospital, she wants to go home with mother. Mother is agreeing to take patient home, patient's son lives with grandmother. I did not get into the details why the son is living with her grandmother and mother is isolated on her own. There has been a significant amount of family trauma, social drama, and a lot of deaths in the family recently. Mother at bedside states there is significant triggers of family situations that is adding to her symptoms. Patient did not overdose on pills today, she did not cut herself. Patient has thoughts of cutting herself. When patient cut herself twice in the past, she stated these were times to kill her self. All systems are negative except as noted/marked. All systems reviewed and otherwise negative. Nurses note and vital signs reviewed and patient is not hypoxic. General: The patient appears well and in no apparent distress. Patient is resting comfortably on cart. Patient is not toxic, lethargic, or listless Skin: Warm, dry, no pallor noted. There is no rash noted. No petechiae, purpura. Patient has no cuts to her forearms, thighs. Patient has no signs of self-harm. Patient has no bruising or ecchymosis noted around her neck. Head: Normocephalic, atraumatic Eye: Normal conjunctiva, no drainage, EOMI. PERRL Ears, Nose, Mouth, and Throat: oral mucosa is moist. Nares patent. Mouth without vesicles. Cardiovascular: Regular Rate and Rhythm, no murmur, gallop, rub Respiratory: Patient is in no distress, no accessory muscle use, lungs are clear to auscultation, no wheezing, rales or rhonchi Back: non-tender, no CVA tenderness bilaterally to percussion. No CT LS midline pain GI: Soft, obese, no tenderness to palpation, no masses appreciated. No rebound, guarding, or rigidity noted. No distention Musculoskeletal: Patient has full range of motion of all of the extremities, no motor, sensory, or focal neurological deficits. Patient is thighs were looked at with [facility] medical program specialist in the room as a witness along with her mother, she has no cutting fernando on her thighs. Neurological: A&O x4, normal speech Psychiatric: Cooperative, patient is tearful, patient does have active thoughts of cutting herself to hurt or kill herself. Patient however states she does not want to be admitted to the hospital, she does want to go home with her mother. This story change once mother arrived. Patient states she does have an appointment with her psychiatrist next week. However, patient is taking no daily medication for depression, stress, anxiety. She is using Xanax prescribed to her for this. Patient is not homicidal, she is suicidal. Related Data Home Medications ?Medication ?Instructions ?Recorded ?Confirmed levothyroxine 75 mcg tablet 75 mcg PO DAILY 04/13/23 11/30/24 lisdexamfetamine 30 mg capsule 30 mg PO DAILY 04/13/23 11/30/24 (Vyvanse) alprazolam 1 mg tablet 1 mg PO BID 08/23/23 11/30/24 estradiol 0.5 mg tablet 0.5 mg PO DAILY 06/20/24 11/30/24 zolpidem 5 mg tablet 5 mg PO DAILY 06/20/24 06/20/24 bupropion HCl 300 mg 24 hr tablet, 300 mg PO DAILY 11/30/24 11/30/24 extended release Previous Rx's ?Medication ?Instructions ?Recorded ondansetron 4 mg disintegrating 4 mg PO DAILY PRN nausea and 06/20/24 tablet vomiting #15 tabs hyoscyamine sulfate 0.125 mg 0.125 mg PO Q8H PRN spasms #10 tabs 10/22/24 tablet (Levsin) ondansetron 4 mg disintegrating 4 mg PO Q8H PRN nausea and 10/22/24 tablet vomiting #10 tabs Allergies Allergy/AdvReac Type Severity Reaction Status Date / Time buspirone (From BuSpar) Allergy Anxiety Verified 03/20/25 08:14 hydroxyzine (From Vistaril) Allergy hyperactive Verified 03/20/25 08:14 metronidazole (From Flagyl) Allergy Hallucinati Verified 03/20/25 08:14 ng tramadol Allergy Seizure Verified 03/20/25 08:14 trimethoprim (From Bactrim) AdvReac Severe Diarrhea Verified 03/20/25 08:14 SSRIs Allergy Suicidal Uncoded 03/20/25 08:14 Opioid HPI Opioid Management Most Recent Opioid Data: Last Pain Scale 7 10/22/24, 14:59 Ur Phencyclidine Scrn, (NEGATIVE) Negative Today, 08:30 PFSH PFSH Social History Smoking status: Current every day smoker Little interest or pleasure in doing things: nearly every day Feeling down, depressed, or hopeless: nearly every day Exam Constitutional Vital Signs, click to edit/add: Last Vital Signs Temp 98.0 F 03/20/25 08:14 Pulse 102 H 03/20/25 08:14 Resp 18 03/20/25 08:14 BP 157/99 H 03/20/25 08:14 Pulse Ox 96 03/20/25 08:14 O2 Del Method Room Air 03/20/25 08:14 Course Vital Signs Vital signs: Vital Signs Temperature 98.0 F 03/20/25 08:14 Pulse Rate 102 H 03/20/25 08:14 Respiratory Rate 18 03/20/25 08:14 Blood Pressure 157/99 H 03/20/25 08:14 Pulse Oximetry 96 03/20/25 08:14 Oxygen Delivery Method Room Air 03/20/25 08:14 Temperature 98.0 F 03/20/25 08:14 Pulse Rate 102 H 03/20/25 08:14 Respiratory Rate 18 03/20/25 08:14 Blood Pressure 157/99 H 03/20/25 08:14 Pulse Oximetry 96 03/20/25 08:14 Oxygen Delivery Method Room Air 03/20/25 08:14 Medical Decision Making MDM Narrative Medical decision making narrative: Patient has been medically cleared. Patient glucose 153, patient's AST and ALT were 55/67 respectively. Patient has no sugar in her urine, sugar was 150 on blood test. Patient has opiates in her urine, she has no idea how opiates are in her urine. She is prescribed Xanax, she admits to using marijuana. Patient stated that she took a few hits off her daughter's ex-boyfriend's vape pen yesterday. Patient has history of illicit drug use. Patient has been pink slipped as well. Patient was a voluntary admission to [facility], we did have admission and accepting physician of Dr. Luke to be a direct admission to S at [facility]. Patient was voluntary. When patient's mother arrived, she no longer is a voluntary admission, she like to go home with her mother. Patient was then pink slipped, patient will need to speak to [facility] for further evaluation. Patient is agreeing to this. Mother understands as well and is thankful. I get the sense that mother think she needs to be admitted to the hospital as well, but she is willing to take patient home because now that is what patient wants. 0931 I spoke to Hallie from [facility]. There was initial thought that patient might be safety plan with mother to go home with mother. Hope was not aware of the pink slip today filled out. Patient has multiple risk factors and concerns around here. Patient is helpless, hopeless, worthless. Patient has major depression most likely its untreated. Patient had suicidal ideation today with cutting herself. Patient has attempted suicide 3 times in the past. Recommendation from myself is admission to the hospital because patient is lost, isolated, hopeless, and was a voluntary admission until her mother came. Patient is admitted again to S., to Dr. Luke. Patient will be picked up at approximately 330PM for transfer. Critical care time 45 minutes exclusive from separate billable procedures that were performed. The following was considered in the determination of critical care but not limited to the level of medical decision making, intensive cardiac and/or respiratory monitoring, frequent vital sign monitoring, evaluation of laboratory studies, evaluation of radiographic studies, oxygen monitoring, and constant monitoring and speaking to family at bedside Lab Data Lab results reviewed: Yes I reviewed the patient's lab results Labs: Lab Results 03/20/25 03/20/25 Range/Units 08:30 08:42 WBC 5.4 (4.0-11.0) 10^3/uL RBC 4.39 (4.20-5.40) 10^6/uL Hgb 14.7 (12.0-16.0) g/dL Hct 41.5 (36.0-48.0) % MCV 94.5 (81.0-99.0) fL MCH 33.5 (26.7-34.0) pg MCHC 35.4 H (29.9-35.2) g/dL RDW 11.6 (11.0-15.0) % Plt Count 207 (150-450) 10^3/uL MPV 11.2 (9.5-13.5) fL Neut % (Auto) 77.5 H (43.0-75.0) % Lymph % (Auto) 13.7 L (20.5-60.0) % [place] % (Auto) 6.7 (1.7-12.0) % Eos % (Auto) 1.1 (0.9-7.0) % Baso % (Auto) 0.6 (0.2-2.0) % Neut # (Auto) 4.2 (1.4-6.5) 10^3/uL Lymph # (Auto) 0.7 L (1.2-3.8) 10^3/uL [place] # (Auto) 0.4 (0.3-0.8) 10^3/uL Eos # (Auto) 0.1 (0.0-0.7) 10^3/uL Baso # (Auto) 0.0 (0.0-0.1) 10^3/uL Abs Immat Gran (auto) 0.02 (0.00-0.03) 10^3/uL Imm/Tot Granulo (auto) 0.4 (0.0-0.5) % Sodium 141 (136-145) mmol/L Potassium 4.0 (3.5-5.1) mmol/L Chloride 103 (98-107) mmol/L Carbon Dioxide 24.9 (21.0-32.0) mmol/L Anion Gap 17.1 BUN 11.0 (7.0-18.0) mg/dL Creatinine 0.98 (0.55-1.02) mg/dL Est GFR ( Amer) >60 (>=60 mL/min/1.73m^2) Est GFR (Non-Af Amer) 60 (>=60 mL/min/1.73m^2) BUN/Creatinine Ratio 11.2 Glucose 153 H (74-106) mg/dL Calcium 9.2 (8.5-10.1) mg/dL Total Bilirubin 0.6 (0.2-1.0) mg/dL AST 55 H (15-37) U/L ALT 67 H (14-59) U/L Alkaline Phosphatase 57 (46-116) U/L Total Protein 7.5 (6.4-8.2) g/dL Albumin 4.1 (3.4-5.0) g/dL Globulin 3.4 g/dL Albumin/Globulin Ratio 1.2 Urine Color Dk. orange (YELLOW) Urine Clarity Clear (CLEAR) Urine pH 6.0 (5.0-9.0) Ur Specific [place] 1.010 (1.005-1.025) Urine Protein Negative (NEG/TRACE) mg/dL Urine Glucose (UA) Negative (NEGATIVE) mg/dL Urine Ketones Negative (NEGATIVE) mg/dL Urine Occult Blood Negative (NEGATIVE) Urine Nitrite Negative (NEGATIVE) Urine Bilirubin Negative (NEGATIVE) Urine Urobilinogen 1.0 (0.2-1.0) EU/dL Ur Leukocyte Esterase Trace A (NEGATIVE) Urine RBC 0-2 (0-2) #/HPF Urine WBC 0-2 A (NONE SEEN) #/HPF Ur Squamous Epith Cells Rare (NONE/RARE) #/LPF Urine Crystals None seen (None Seen) #/HPF Urine Bacteria Trace A (NONE SEEN) #/HPF Urine Casts None seen (NONE SEEN) #/LPF Urine Mucus Trace A (NONE SEEN) Ur Culture Indicated? No Urine HCG, Qual Negative (NEGATIVE) Salicylates <2.8 (<=19.9) mg/dL Urine Opiates Screen Positive A (NEGATIVE) Ur Buprenorphine Scrn Negative (NEGATIVE) Ur Oxycodone Screen Negative (NEGATIVE) Urine Methadone Screen Negative (NEGATIVE) Acetaminophen <2.0 L (10.0-30.0) ug/mL Ur Barbiturates Screen Negative (NEGATIVE) U Tricyclic Antidepress Negative (NEGATIVE) Ur Phencyclidine Scrn Negative (NEGATIVE) Ur Amphetamines Screen Negative (NEGATIVE) U Methamphetamines Scrn Negative (NEGATIVE) U Benzodiazepines Scrn Positive A (NEGATIVE) Urine Cocaine Screen Negative (NEGATIVE) U Cannabinoids Screen Positive A (NEGATIVE) Ethanol Quant <3 mg/dL ECG Data Attestation: I personally reviewed and interpreted this ECG as follows: (EKG interpretation. Normal sinus rhythm at 90 beats a minute. Normal axis deviation. No acute ST elevation, no acute ectopy. QTc of 404) Discharge Plan Discharge Chief Complaint: Psychiatric Symptoms Clinical Impression: Suicide ideation, Anxiety, Depression, unspecified Patient Disposition: General Acute Hospital Time of Disposition Decision: 14:15 Discharge Location: [facility] Discharge location: [address] Condition: Fair Mode of Transportation: EMS
[2025-03-20] MEDS: ONDANSETRON 4 MG RAPDIS TABLET SL (08:48)
[2025-03-20 08:54] LABS: HCG Qualitative Urine* NEGATIVE (NEGATIVE); Internal Control Within Normal Limits
[2025-03-20 08:55] LABS: Basophils Percent Auto 0.6 % (0.2-2.0); Eosinophils Absolute Auto 0.1 10^3/uL (0.0-0.7); Eosinophils Percent Auto 1.1 % (0.9-7.0); Hematocrit 41.5 % (36.0-48.0); Hemoglobin 14.7 g/dL (12.0-16.0); Immature Granulocytes Abs Auto 0.02 10^3/uL (0.00-0.03); Immature Granulocytes Pct Auto 0.4 % (0.0-0.5); Lymphocytes Absolute Auto 0.7 10^3/uL (1.2-3.8); Lymphocytes Percent Auto 13.7 % (20.5-60.0); Mean Corpuscular HGB Conc 35.4 g/dL (29.9-35.2); Mean Corpuscular Hemoglobin 33.5 pg (26.7-34.0); Mean Corpuscular Volume 94.5 fL (81.0-99.0); Mean Platelet Volume 11.2 fL (9.5-13.5); Monocytes Absolute Auto 0.4 10^3/uL (0.3-0.8); Monocytes Percent Auto 6.7 % (1.7-12.0); Neutrophils Absolute Auto 4.2 10^3/uL (1.4-6.5); Neutrophils Percent Auto 77.5 % (43.0-75.0); Platelet Count 207 10^3/uL (150-450); Red Blood Count 4.39 10^6/uL (4.20-5.40); Red Cell Distribution Width 11.6 % (11.0-15.0); White Blood Count 5.4 10^3/uL (4.0-11.0)
[2025-03-20 08:58] LABS: Bilirubin Urine NEGATIVE (NEGATIVE); Blood Urine NEGATIVE (NEGATIVE); Clarity Urine CLEAR (CLEAR); Color Urine DK. ORANGE (YELLOW); Glucose Urine UA NEGATIVE (NEGATIVE); Ketones Urine NEGATIVE (NEGATIVE); Leukocyte Esterase Urine TRACE (NEGATIVE); Protein Urine NEGATIVE (NEG/TRACE)
[2025-03-20 09:02] LABS: Nitrite Urine NEGATIVE (NEGATIVE)
[2025-03-20 09:03] LABS: Bacteria Urine TRACE #/HPF (NONE SEEN); Cast Seen? NONE SEEN #/LPF (NONE SEEN); Crystals Seen? None Seen #/HPF (None Seen); Mucus Urine TRACE (NONE SEEN); RBC Urine 0-2 #/HPF (0-2); Squamous Epithelial Cell Urine RARE #/LPF (NONE/RARE); Urine Culture Indicated NO; WBC Urine 0-2 #/HPF (NONE SEEN)
[2025-03-20 09:04] LABS: Amphetamine Screen Urine NEGATIVE (NEGATIVE); Barbiturates Screen Urine NEGATIVE (NEGATIVE); Benzodiazepines Screen Urine POSITIVE (NEGATIVE); Buprenorphine Screen Urine NEGATIVE (NEGATIVE); Cannabinoid Screen Urine POSITIVE (NEGATIVE); Cocaine Screen Urine NEGATIVE (NEGATIVE); Methadone Screen Urine NEGATIVE (NEGATIVE); Methamphetamines Screen Urine NEGATIVE (NEGATIVE); Opiate Screen Urine POSITIVE (NEGATIVE); Oxycodone Screen Urine NEGATIVE (NEGATIVE); Phencyclidine Screen Urine NEGATIVE (NEGATIVE); Tricyclic Antidepressant Urine NEGATIVE (NEGATIVE)
[2025-03-20 09:08] LABS: Salicylate <2.8 mg/dL (<=19.9)
[2025-03-20 09:11] LABS: Alanine Aminotransferase 67 U/L (14-59); Albumin Globulin Ratio 1.2; Albumin Level 4.1 g/dL (3.4-5.0); Alkaline Phosphatase 57 U/L (46-116); Anion Gap 17.1; Aspartate Amino Transferase 55 U/L (15-37); BUN Creatinine Ratio 11.2; Bilirubin Total 0.6 mg/dL (0.2-1.0); Calcium 9.2 mg/dL (8.5-10.1); Carbon Dioxide 24.9 mmol/L (21.0-32.0); Chloride 103 mmol/L (98-107); Estimated GFR (African America >60 (>=60 mL/min/1.73m^2); Estimated GFR (Non-African Ame 60 (>=60 mL/min/1.73m^2); Ethanol <3 mg/dL; Globulin 3.4 g/dL; Glucose 153 mg/dL (74-106); Sodium 141 mmol/L (136-145); Total Protein 7.5 g/dL (6.4-8.2)
[2025-03-20 09:16] LABS: Acetaminophen <2.0 ug/mL (10.0-30.0)
--- NOTE | 2025-03-20 09:53 | PC.NURSE ---
Spoke with Janie at [facility], she will call us back, will attempt for direct admit to [address] [place] [address]
--- NOTE | 2025-03-20 10:12 | PC.NURSE ---
Dr Luke 1 [facility] accepts pt
--- NOTE | 2025-03-20 10:20 | PC.NURSE ---
this rn goes into speak with pt about transfer to [address] [place] [address] as a direct admit, pt states she would like to go home with her mother, she is not agreeable to direct admit, Dr Toledo advised
[2025-03-20] MEDS: LORAZEPAM 1 MG TABLET PO (11:37)
--- NOTE | 2025-03-20 11:41 | PC.NURSE ---
pt given meal tray
--- NOTE | 2025-03-20 13:15 | PC.NURSE ---
pt speaking with Aleksandra from [facility] Liudmila
--- NOTE | 2025-03-20 14:42 | PC.NURSE ---
Report called to Neha NESS at [address]
== END 2025-03-20 15:55 ==
PROVIDERS: Emergency Provider Emergency Medicine; PCP Nurse Practitioner Family
DX: F32.A Depression, unspecified (principal); F41.9 Anxiety disorder, unspecified; R45.851 Suicidal ideations; Z91.51 Personal history of suicidal behavior; F17.210 Nicotine dependence, cigarettes, uncomplicated; Z79.899 Other long term (current) drug therapy; Z63.4 Disappearance and death of family member
CPT/HCPCS: 36415; 80053; 80179; 80307; 80320; 80329; 81001; 84703; 85025; 93005; 99285; Q0162

== ENCOUNTER 2025-04-17 10:31 | Emergency (ER) | payer MEDICAID, SELFPAY ==
[2025-04-17 10:36] VITALS: BP 140/97; PULSE 85; TEMP 36.7; O2SAT 97; BMI 32.9
--- NOTE | 2025-04-17 10:41 | PC.NURSE ---
Pt states she has been dealing with nausea for months and given zofran by PCP Pt states she woke up this morning vomiting Pt also states she has been getting very sensitive to the sun and gets weak and fatigued very quickly Pt states she is feeling weak today and was out in the sun yesterday pt states she does smoke cigarettes but does not drink alcohol Pt denies stomach pain at this time aside from discomfort from throwing up Pt has not had any abdominal history or surgeries aside from reproductive surgeries
--- NOTE | 2025-04-17 10:45 | ED.GENADUL1 ---
HPI HPI - General Adult General Chief complaint: Nausea/Vomiting/Diarrhea Stated complaint: NAUSEA VOMITING WEAKNESS Time Seen by Provider: 04/17/25 10:37 Source: patient Mode of arrival: walk-in Limitations: no limitations History of Present Illness HPI narrative: 49-year-old female presents for nausea and vomiting which began this morning. She has however been nauseous for months and her doctor's been giving her Zofran. It does not seem to help. No fever or hematemesis. She has not had diarrhea. Related Data Home Medications ?Medication ?Instructions ?Recorded ?Confirmed levothyroxine 75 mcg tablet 75 mcg PO DAILY 04/13/23 04/17/25 lisdexamfetamine 30 mg capsule 30 mg PO DAILY 04/13/23 04/17/25 (Vyvanse) alprazolam 1 mg tablet 1 mg PO BID 08/23/23 04/17/25 clonazepam 1 mg tablet mg 04/17/25 desvenlafaxine succinate 25 mg mg PO 04/17/25 tablet,extended release 24 hr esketamine 56 mg (28 mg x 2) nasal mg intranasal 04/17/25 spray (Spravato) lorazepam 0.5 mg tablet mg 04/17/25 Previous Rx's ?Medication ?Instructions ?Recorded ondansetron 4 mg disintegrating 4 mg PO DAILY PRN nausea and 06/20/24 tablet vomiting #15 tabs ondansetron 4 mg disintegrating 4 mg PO Q8H PRN nausea and 10/22/24 tablet vomiting #10 tabs promethazine 25 mg tablet 25 mg PO Q6H PRN nausea and 04/17/25 vomiting #20 tabs Allergies Allergy/AdvReac Type Severity Reaction Status Date / Time buspirone (From BuSpar) Allergy Anxiety Verified 04/17/25 10:39 hydroxyzine (From Vistaril) Allergy hyperactive Verified 04/17/25 10:39 metronidazole (From Flagyl) Allergy Hallucinati Verified 04/17/25 10:39 ng tramadol Allergy Seizure Verified 04/17/25 10:39 trimethoprim (From Bactrim) AdvReac Severe Diarrhea Verified 04/17/25 10:39 nubane Allergy Unknown Uncoded 04/17/25 10:39 SSRIs Allergy Suicidal Uncoded 04/17/25 10:39 Opioid HPI Opioid Management Most Recent Opioid Data: Last Pain Scale 7 10/22/24, 14:59 Ur Phencyclidine Scrn, (NEGATIVE) Negative 03/20/25, 08:30 Review of Systems ROS Narrative A ten point review of systems is negative except as noted above. PFSH PFSH Social History Smoking status: Current every day smoker Little interest or pleasure in doing things: nearly every day Feeling down, depressed, or hopeless: nearly every day Exam Narrative Exam Narrative: Nurses note and vital signs reviewed and patient is not hypoxic. General: The patient appears in no apparent distress. Skin: Warm, dry, no pallor noted. There is no rash noted. Head: Normocephalic, atraumatic Eye: Normal conjunctiva, no drainage Ears, Nose, Mouth, and Throat: oral mucosa is moist. Nares patent. Cardiovascular: Regular Rate and Rhythm Respiratory: Patient is in no distress, no accessory muscle use, lungs are clear to auscultation, no wheezing, rales or rhonchi Back: non-tender GI: Normal bowel sounds, no tenderness to palpation, no masses appreciated. No rebound, guarding, or rigidity noted. Musculoskeletal: No joint Neurological: A&O, normal speech Psychiatric: Cooperative Constitutional Vital Signs, click to edit/add: Last Vital Signs Temp 98.1 F 04/17/25 10:36 Pulse 67 04/17/25 12:26 Resp 18 04/17/25 12:26 BP 113/79 04/17/25 12:26 Pulse Ox 98 04/17/25 12:26 O2 Del Method Room Air 04/17/25 10:36 Course Vital Signs Vital signs: Vital Signs Temperature 98.1 F 04/17/25 10:36 Pulse Rate 85 04/17/25 10:36 Respiratory Rate 18 04/17/25 10:36 Blood Pressure 140/97 H 04/17/25 10:36 Pulse Oximetry 97 04/17/25 10:36 Oxygen Delivery Method Room Air 04/17/25 10:36 Temperature 98.1 F 04/17/25 10:36 Pulse Rate 67 04/17/25 12:26 Respiratory Rate 18 04/17/25 12:26 Blood Pressure 113/79 04/17/25 12:26 Pulse Oximetry 98 04/17/25 12:26 Oxygen Delivery Method Room Air 04/17/25 10:36 Medical Decision Making MDM Narrative Medical decision making narrative: Laboratory analysis is unremarkable. I suspect that her nausea may be due to stress and this was discussed with the patient. She was prescribed Phenergan treatment diagnosis and follow-up were discussed with the patient. Differential Diagnosis Differential Diagnosis: Anxiety, dehydration, electrolyte imbalance Lab Data Lab results reviewed: Yes I reviewed the patient's lab results Labs: Lab Results 04/17/25 04/17/25 Range/Units 10:45 11:00 WBC 5.5 (4.0-11.0) 10^3/uL RBC 4.32 (4.20-5.40) 10^6/uL Hgb 14.2 (12.0-16.0) g/dL Hct 40.9 (36.0-48.0) % MCV 94.7 (81.0-99.0) fL MCH 32.9 (26.7-34.0) pg MCHC 34.7 (29.9-35.2) g/dL RDW 11.5 (11.0-15.0) % Plt Count 252 (150-450) 10^3/uL MPV 11.3 (9.5-13.5) fL Neut % (Auto) 80.2 H (43.0-75.0) % Lymph % (Auto) 13.3 L (20.5-60.0) % [place] % (Auto) 5.5 (1.7-12.0) % Eos % (Auto) 0.4 L (0.9-7.0) % Baso % (Auto) 0.4 (0.2-2.0) % Neut # (Auto) 4.4 (1.4-6.5) 10^3/uL Lymph # (Auto) 0.7 L (1.2-3.8) 10^3/uL [place] # (Auto) 0.3 (0.3-0.8) 10^3/uL Eos # (Auto) 0.0 (0.0-0.7) 10^3/uL Baso # (Auto) 0.0 (0.0-0.1) 10^3/uL Abs Immat Gran (auto) 0.01 (0.00-0.03) 10^3/uL Imm/Tot Granulo (auto) 0.2 (0.0-0.5) % Sodium 142 (136-145) mmol/L Potassium 4.2 (3.5-5.1) mmol/L Chloride 106 (98-107) mmol/L Carbon Dioxide 26.0 (21.0-32.0) mmol/L Anion Gap 14.2 BUN 8.0 (7.0-18.0) mg/dL Creatinine 0.63 (0.55-1.02) mg/dL Est GFR ( Amer) >60 (>=60 mL/min/1.73m^2) Est GFR (Non-Af Amer) >60 (>=60 mL/min/1.73m^2) BUN/Creatinine Ratio 12.7 Glucose 97 (74-106) mg/dL Calcium 9.1 (8.5-10.1) mg/dL Urine Color Lt. yellow (YELLOW) Urine Clarity Clear (CLEAR) Urine pH 6.0 (5.0-9.0) Ur Specific [place] <=1.005 A (1.005-1.025) Urine Protein Negative (NEG/TRACE) mg/dL Urine Glucose (UA) Negative (NEGATIVE) mg/dL Urine Ketones Negative (NEGATIVE) mg/dL Urine Occult Blood Negative (NEGATIVE) Urine Nitrite Negative (NEGATIVE) Urine Bilirubin Negative (NEGATIVE) Urine Urobilinogen 0.2 (0.2-1.0) EU/dL Ur Leukocyte Esterase Negative (NEGATIVE) Urine RBC 0-2 (0-2) #/HPF Urine WBC None seen (NONE SEEN) #/HPF Ur Squamous Epith Cells Rare (NONE/RARE) #/LPF Urine Crystals None seen (None Seen) #/HPF Urine Bacteria None seen (NONE SEEN) #/HPF Urine Casts None seen (NONE SEEN) #/LPF Urine Mucus None seen (NONE SEEN) Discharge Plan Discharge Chief Complaint: Nausea/Vomiting/Diarrhea Clinical Impression: Nausea Patient Disposition: Home, Self-Care Time of Disposition Decision: 13:02 Condition: Good Mode of Transportation: Private Vehicle Prescriptions / Home Meds: New promethazine 25 mg tablet 25 mg PO Q6H PRN (Reason: nausea and vomiting) Qty: 20 0RF No Action levothyroxine 75 mcg tablet 75 mcg PO DAILY lisdexamfetamine [Vyvanse] 30 mg capsule 30 mg PO DAILY ondansetron 4 mg tablet,disintegrating 4 mg PO DAILY PRN (Reason: nausea and vomiting) Qty: 15 0RF ondansetron 4 mg tablet,disintegrating 4 mg PO Q8H PRN (Reason: nausea and vomiting) Qty: 10 0RF clonazepam 1 mg tablet lorazepam 0.5 mg tablet desvenlafaxine succinate 25 mg tablet extended release 24 hr PO Spravato 56 mg (28 mg x 2) spray,non-aerosol INTRANASAL alprazolam 1 mg tablet 1 mg PO BID Print Language: Ukrainian Instructions: Acute Nausea and Vomiting (ED) Referrals: Stephanie Bowser NP [Primary Care Provider] - 1 week
[2025-04-17 11:12] LABS: Hematocrit 40.9 % (36.0-48.0); Hemoglobin 14.2 g/dL (12.0-16.0); Immature Granulocytes Abs Auto 0.01 10^3/uL (0.00-0.03); Immature Granulocytes Pct Auto 0.2 % (0.0-0.5); Lymphocytes Absolute Auto 0.7 10^3/uL (1.2-3.8); Mean Corpuscular HGB Conc 34.7 g/dL (29.9-35.2); Mean Corpuscular Hemoglobin 32.9 pg (26.7-34.0); Mean Corpuscular Volume 94.7 fL (81.0-99.0); Platelet Count 252 10^3/uL (150-450); Red Blood Count 4.32 10^6/uL (4.20-5.40); White Blood Count 5.5 10^3/uL (4.0-11.0)
[2025-04-17] MEDS: PROMETHAZINE HCL 12.5 MG in 0.9 % SODIUM CHLORIDE 50 ML 202 MG IV (11:12)
[2025-04-17] MEDS: 0.9 % SODIUM CHLORIDE 1,000 ML 1000 ML IV (11:13)
[2025-04-17 11:14] LABS: Glucose Urine UA NEGATIVE (NEGATIVE)
[2025-04-17 11:20] LABS: Anion Gap 14.2; Blood Urea Nitrogen 8.0 mg/dL (7.0-18.0); Calcium 9.1 mg/dL (8.5-10.1); Carbon Dioxide 26.0 mmol/L (21.0-32.0); Chloride 106 mmol/L (98-107); Estimated GFR (African America >60 (>=60 mL/min/1.73m^2); Estimated GFR (Non-African Ame >60 (>=60 mL/min/1.73m^2); Glucose 97 mg/dL (74-106); Potassium 4.2 mmol/L (3.5-5.1); Sodium 142 mmol/L (136-145)
[2025-04-17 11:23] LABS: Cast Seen? NONE SEEN #/LPF (NONE SEEN); Crystals Seen? None Seen #/HPF (None Seen)
--- NOTE | 2025-04-17 11:34 | PC.NURSE ---
This nurse spent extensive time with patient educating and discussing anxiety/stress and the relationship to the stomach Pts mother at bedside states that they have been under an extreme amount of stress in their family after suffering from numerous losses of family members Pt states she experienced this on going nausea once before last year when she was under a lot of stress pt states she experiences increasef fatigue, weakness, and nausea with the heat as well pt encouraged tht if findings are normal in the ER today that it is imoprtant to schedule a follow up with GI - pt states her pc has recommended she do this once before but she did not go see them At this time patient is resting comfortably in bed with mother at bedside, patients fluids are infusing as well as Phenergan at this time
[2025-04-17 12:26] VITALS: BP 113/79; PULSE 67; O2SAT 98
== END 2025-04-17 13:29 | disposition home or self-care (01) ==
PROVIDERS: Emergency Provider Emergency Medicine; PCP Nurse Practitioner Family
DX: R11.0 Nausea (principal); F17.200 Nicotine dependence, unspecified, uncomplicated
CPT/HCPCS: 36415; 80048; 81001; 85025; 96361; 96365; 96375; 99284; J2405; J2550

== ENCOUNTER 2025-06-12 10:24 | Emergency (ER) | payer MEDICAID, SELFPAY ==
[2025-06-12 10:29] VITALS: BP 149/90; PULSE 77; TEMP 36.9; O2SAT 98; BMI 34.8
--- OUTSIDE RECORDS SUMMARY | 2025-06-12 10:35 | XMS_ITS | CCD ---
Author Organization [facility] Care Team Providers Care E Learning Specialist Name Role Phone VALJAMES BENJI A Unavailable Unavailable CATA BURKSICA A Unavailable Unavailable KELLI GUSMAN Unavailable Unavailable UZMAKELLI WALTER Unavailable Unavailable INDURTI, PREM V Admitting Unavailable REANNAI, PREM V Attending Unavailable JONI ESQUIVEL Referring Unavailable BRANDEN VAZQUEZ Primary Care Unavailable Branden Vazquez Primary Care Provider Imm Branden STORM Primary Care Provider JUAN LUIS WHITING Referring Unavailable BRANDEN VAZQUEZ Primary Care Unavailable NON STAFF Primary Care Provider UnavailMD Miah Elias Admit Provider [phone] MD Miah Abreu Attending Provider [phone] MD Serafin Rollins Admit Provider MD Serafin Rollins Attending Provider NON STAFF Primary Care Provider UnavailMD Serafin Zaldivar Admit Provider [phone] MD Serafin Rollins Attending Provider NO FAMILY, PHYSICIAN Primary Care Provider Unava ilable MD Miah Abreu Admit Provider [phone] MD Miah Abreu Attending Provider [phone] OTTO SIEGEL Attending Unavailable YAKOV, DR SALGUERO Primary Care Unavailable OTTO SIEGEL Admitting Unavailable SAUL LYONS Consulting Unavailable YAKOV, DR SALGUERO Primary Care Unavailable KARLA, DR BEATA Last Admitting Unavailable KARLA, DR BEATA Last Attending Unavailable KARLA, DR BEATA Last Consulting Unavailable PRECIOUS, DR MARRUFO Consulting Unavailable MARIMAR VIVAS Consulting Unavailable MARIPOSA MARTIN Consulting Unavailable YAKOV, DR SALGUERO Primary Care Unavailable RIGOBERTO, DR OTERO Admitting Unavailable RIGOBERTO, DR OTERO Attending Unavailable RIGOBERTO, DR OTERO Consulting Unavailable HAY, DR MARRUFO Admitting Unavailable HAY, DR MARRUFO Attending Unavailable SAUL YLONS Consulting Unavailable MISC, DR SALGUERO Primary Care Unavailable TOPHER BROWN Consulting Unavailable CONOR, EDY Attending Unavailable CONOR, EDY Consulting Unavailable CONOR, EDY Admitting Unavailable [facility] Unavailable KAYLA NYE Consulting Unavailable MD Miah Abreu Admit Provider MD Miah Abreu Attending Provider NON STAFF Primary Care Provider Unavailabl e MD Serafin Rollins Admit Provider MD Serafin Rollins Attending Provider [phone] GROVER Ko Other Provider Unavailable GROVER Bonner Other Provider Unavailable GROVER Delacruz Other Provider Unavailable GROVER Lazo Other Provider Unavailable GROVER Centeno Other Provider Unavailable Nicole RN Vaishali Other Provider Unavailable Dials, ALPINE PATROLLER Alessandra M Other Provider DO Valentina Nice Other Provider MD Rush Ramsey Other Provider DO Santi Rudd Other Provider MD Zeus Bright Other Provider MD Ya Simms Other Provider Sherif ANP-BC Adele Other Provider [phone] MD Yessy Bustillos Other Provider MD Irwin Rivero Other Provider MD Jose Loaiza Other Provider MD Demario Spicer Other Provider DO Gelacio Callahan Other Provider MD Becca Bustos Other Provider MD Kamron Solis Other Provider STACEY BreauxC Gris Casillas Other Provider MD Abisai Madrid Other Provider MD Wolf Irwin Other Provider MD Hammad Zayas Other Provider MD Georgi Rodríguez Other Provider DO Debbie Greenwood Other Provider DO Jordan Dumont Other Provider [phone] DO Jim Wells Other Provider TANNER Douglas Other Provider DO Eddie Jensen Other Provider MD Emanuel Esposito Other Provider [phone] TANNER Chan Other Provider TANNER Delgado Other Provider MD Danny Mancia Other Provider MD Sánchez Noble Other Provider GROVER Galvan Other Provider Unavailable MD Guilherme Carbone Other Provider MD Gelacio Molina Other Provider MD Charity Manzo Other Provider [phone] DO Monroe Zepeda Other Provider MD Enrico Alcazar II Other Provider DO Gwyn Wyatt Other Provider Enrico Alcazar II Unavailable [phone] NON STAFF Primary Care Provider UnavailMD Olvin Zaldivar Admit Provider MD Olvin Rollins Attending Provider [phone] GROVER Ko Other Provider Unavailable GROVER Bonner Other Provider Unavailable GROVER Delacruz Other Provider Unavailable Clifton RN Carmella Other Provider Unavailable GROVER Centeno Other Provider Unavailable GROVER Rivera Other Provider Unavailable MD Alon Chand Other Provider TANNER Luna M Other Provider DO Valentina Nice Other Provider MD Rush Ramsey Other Provider DO Santi Rudd Other Provider MD Zeus Bright Other Provider MD Ya Simms Other Provider TANNER Hunter Other Provider MD Yessy Bustillos Other Provider [phone] MD Irwin Rivero Other Provider MD Jose Loaiza Other Provider MD Demario Spicer Other Provider DO Gelacio Callahan Other Provider [phone] MD Becca Bustos Other Provider MD Kamron Solis Other Provider Saeid, MEDIA STRATEGIST-C Gris Casillas Other Provider [phone] MD Abisai Madrid Other Provider MD Wolf Irwin Other Provider MD Hammad Zayas Other Provider MD Georgi Rodríguez Other Provider DO Debbie Greenwood Other Provider DO Jordan Dumont Other Provider DO Jim Wells Other Provider [phone] TANNER Douglas Other Provider DO Eddie Jensen Other Provider MD Emanuel Esposito Other Provider [phone] TANNER Chan Other Provider TANNER Delgado Other Provider MD Danny Mancia Other Provider MD Sánchez Noble Other Provider DO Lexx Fox Other Provider TANNER Malagon Other Provider DO Maycol Lee Other Provider GROVER Galvan Other Provider Unavailable MD Miah Abreu Admit Provider MD Miah Abreu Attending Provider Lili Woo MD Primary Care Provider [phone] ARTHUR Bowser-Ulises Hernandez Primary Care Provider [phone] MD Olvin Rollins Admit Provider MD Olvin Rollins Attending Provider MICHELLE BOWSER Primary Care Unavailable DEB MORROW Attending Unavailable NON STAFF Primary Care Provider Unavailabl e MD Olvin Rollins Attending Provider NINA Bowser Primary Care Provider [phone] MD Olvin Rollins Admit Provider GROVER Ko Other Provider Unavailable GROVER Bonner Other Provider Unavailable GROVER Lazo Other Provider Unavailable GROVER Rivera Other Provider Unavailable GROVER Fernandez Other Provider Unavailable DO Valentina Nice Other Provider [phone] MD Rush Ramsey Other Provider DO Santi Rudd Other Provider MD Zeus Bright Other Provider MD Ya Simms Other Provider MD Nilton Harris Other Provider Unavailable TANNER Hunter Other Provider MD Yessy Bustillos Other Provider MD Irwin Rivero Other Provider MD Jose Loaiza Other Provider MD Demario Spicer Other Provider DO Gelacio Callahan Other Provider MD Becca Bustos Other Provider MD Kamron Solis Other Provider ARTHUR Breaux-C Gris Casillas Other Provider TANNER Solis Other Provider Unavailable MD Abisai Madrid Other Provider MD Wolf Irwin Other Provider MD Hammad Zayas Other Provider MD Kia Yancey Other Provider Unavailable MD Georgi Rodríguez Other Provider DO Debbie Greenwood Other Provider DO Jordan Dumont Other Provider TANNER Douglas Other Provider DO Eddie Jensen Other Provider MD Emanuel Esposito Other Provider TANNER Chan Other Provider TANNER Delgado Other Provider MD Danny Mancia Other Provider MD Sánchez Noble Other Provider DO Lexx Fox Other Provider Jesus, DO Yazid Other Provider MD Hermes Zayas Other Provider MD Masoud Hoffman Other Provider [phone] TANNER Flanagan Other Provider [phone] MD Felipe Graff Other Provider MD Amador Sanchez Other Provider GROVER Galvan Other Provider Unavailable BOWSER, MICHELLE Referring Unavailable ALI, LILI Primary Care Unavailable BOWSER, MICHELLE Referring Unavailable BOWSER, MICHELLE Primary Care Unavailable BOWSER, MICHELLE Referring Unavailable BOWSER, MICHELLE Primary Care Unavailable BADILLO, CAM Attending Unavailable BADILLO, CAM [...] CAM Referring Unavailable BADILLO, CAM Attending Unavailable Bowser ALPINE PATROLLER-SENIOR LABORATORY TECHNICIAN, Michelle Primary Care Provider Marty DOUGLAS, Gris Duff Attending Provider [phone] Niels MEDIA STRATEGIST-C, [facility] Primary Care Provider [phone] Olvin Rollins MD Admit Provider Olvin Rollins MD Attending Provider [phone] NON STAFF Primary Care Provider Unavailisac e Olvin Rollins MD Attending Provider Bowser ALPINE PATROLLER-SENIOR LABORATORY TECHNICIAN, Michelle Primary Care Provider BOWSER, MICHELLE Attending Unavailable BOWSER, MICHELLE Referring Unavailable BOWSER, MICHELLE Primary Care Unavailable BOWSER, MICHELLE Attending Unavailable BOWSER, MICHELLE Referring Unavailable BOWSER, MICHELLE Primary Care Unavailable GELACIO JACOME Attending Unavailable BOWSER, MICHELLE Referring Unavailable BOWSER, MICHELLE Primary Care Unavailable VERO ARENAS Attending Unavailable BOWSER, MICHELLE Referring Unavailable BOWSER, MICHELLE Primary Care Unavailable BOWSER, MICHELLE Attending Unavailable BOWSER, MICHELLE Referring Unavailable BOWSER, MICHELLE Primary Care Unavailable Ayo, Olvin Admitting Unavailab le Ayo, Olvin Attending Unavailab le Bowser, Michelle K Primary Care Unavailable Gris Ferguson Attending Unavailable Gris Ferguson Admitting Unavailable Ayo, Olvin Attending Unavailab le NON STAFF Primary Care Unavailable Ayo, Olvin Admitting Unavailab Miah Kim Attending Unavailable Bowser, Michelle K Primary Care Unavailable Victor Manuel Kora Consulting Unavailable Ayo, Olvin Admitting Unavailab Jennifer Donis Consulting Unavailable Carmella Lazo Consulting Unavailable Vaishali Rivera Consulting Unavailable Ciara Fernandez Consulting Unavailable Valentina Niec Consulting Unavailable Rush Ramsey Consulting Unavailable Santi Rudd Consulting UnavailZeus Fernandez Consulting Unavailable Ya Simms Consulting Unavailable Nilton Harris Consulting Unavailable Adele Hunter Consulting UnavailYessy Morfin Consulting Unavailable Irwin Rivero Consulting Unavailable Jose Loaiza Consulting Unavailable Demario Spicer Consulting Unavailable Gelacio Callahan Consulting Unavailable Becca Bustos Consulting Unavailable Kamron Solis Consulting Unavailable Gris Breaux Consulting Unavailable Luis Solis Consulting Unavailable DoameAbisai price Consulting Unavailab le Dc, Wolf Consulting Unavailable Hammad Zayas Consulting Unavailable Kia Yancey Consulting Unavailable Georgi Rodríguez Consulting Unavailable Debbie Greenwood Consulting Unavailable Jordan Dumont Consulting Unavailable Janie Douglas Consulting Unavailable Eddie Jensen Consulting Unavailable Emanuel Esposito Consulting Unavailable Jael Chan Consulting Unavailable Fabi Delgado Consulting Unavailable Danny Mancia Consulting Unavailable Sánchez Noble Consulting Unavailable Lexx Fox Consulting Unavailable Maycol Lee Consulting Unavailable Hermes Zayas Consulting Unavailable Masoud Hoffman Consulting UnaMakayla Hung Consulting Unavailable Felipe Graff Consulting Unavailable Amador Sanchez Consulting Unavailable Charito Galvan Consulting Unavailable 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 Primary Care Unavailable Olvin Rollins Admitting Unavailab Miah Kim Attending Unavailable Allergies Allergy Classification Reported Allergen(s) Allergy Type Date of Onset Reaction(s) Facility (19 sources) diphenhydrAMINE Drug Allergy 07-02-20 19 Palpitations [place], [place] Comment on above: increased anxiety an d agitation (11 sources) hydrOXYzine Drug Allergy 01-05-20 18 Agitated [place], [place] (2 sources) Ketorolac Drug Allergy 04-22-20 13 Shortness Of Breath [place], [place] (20 sources) metroNIDAZOLE; Translations: [METRONIDAZOLE] Drug Allergy 04-23-20 13 Nausea And Vomiting, Dizziness [place] (2 sources) Morphine Drug Allergy 09-17-20 09 Other (See Comments) [place] (20 sources) Sulfamethoxazole / Trimethoprim; Translations: [SULFAMETHOXAZOLE-T RIMETHOPRIM] Drug Allergy 04-23-20 13 Nausea And Vomiting, Dizziness [place], [place] (20 sources) traMADol; Translations: [TRAMADOL] Drug Allergy 04-22-20 13 Other (See Comments) [place] (11 sources) Trimethoprim Drug Allergy 01-05-20 18 Vomiting [place], [place] (20 sources) busPIRone; Translations: [BUSPIRONE] Drug Allergy 11-02-19 22 Abnormal Behavior [facility] (20 sources) Nalbuphine; Translations: [NALBUPHINE] Drug Allergy 03-13-20 17 Unknown Reaction [facility] (10 sources) OLANZapine; Translations: [olanzapine] Drug Allergy 11-02-19 Unknown Reaction [facility] (10 sources) Sulfamethoxazole; Translations: [sulfamethoxazole] Drug Allergy 11-02-19 22 Vomiting [facility] (1 source) busPIRone Drug Allergy 03-19-20 22 [facility] (1 source) hydrOXYzine Drug Allergy [facility] (2 sources) metroNIDAZOLE Drug Allergy 09-28-20 16 [facility] (2 sources) Nalbuphine Drug Allergy Unknown [facility] (3 sources) Sulfamethoxazole / Trimethoprim Drug Allergy 10-05-19 17 Unknown [facility] (1 source) traMADol Drug Allergy 10-05-19 17 [facility] (1 source) traMADol Drug Allergy Unknown [facility] Other (1 source) Flagil Propensity to adverse reactions Unknown [facility] Other (5 sources) diphenhydrAMINE; Translations: [DIPHENHYDRAMINE HCL] Drug Allergy 11-27-19 [facility] (11 sources) hydrOXYzine; Translations: [HYDROXYZINE HCL] Drug Allergy 11-27-19 Abnormal Behavior [facility] (1 source) vortioxetine Drug Allergy [facility] (1 source) diphenhydrAMINE Drug Allergy 07-14-20 [facility] (1 source) hydrOXYzine Drug Allergy 07-14-20 [facility] (1 source) metroNIDAZOLE Drug Allergy 07-14-20 [facility] (1 source) traMADol Drug Allergy 07-14-20 [facility] (1 source) Trimethoprim Drug Allergy 07-14-20 [facility] Medications Current Medications Medication Drug Class(es) Dates Sig (Normalized) Sig (Original) ALPRAZolam 1 mg oral tablet (20 sources) Benzodiazepine Start: 11-16-2023 ALPRAZolam (XANAX) 1 mg tablet Take 1 tablet (1 mg total) by mouth. 11/16/2023 Active Start: 08-24-2023 End: 10-11-2023 take 1 tablet by mouth twice daily Alprazolam 1 mg tablet Active 1 MG PO Twice daily 60 October 11, 2023 11:26am Start: 07-20-2021 End: 04-13-2023 take 1 tablet by mouth twice daily as needed for anxiety Alprazolam 1 mg tablet Discontinued 1 MG PO Twice daily as needed for Anxiety 14 7 March 23, 2022 10:51am April 13, 2023 9:24am Start: 03-09-2021 End: 07-20-2021 take 0.5 mg by mouth twice daily as needed for anxiety Alprazolam (Xanax) 1 mg Tablet Discontinued 0.5 MG PO Twice daily as needed for Anxiety 0 March 09, 2021 10:19am July 20, 2021 8:59pm Start: 03-05-2021 End: 03-09-2021 take 1 tablet by mouth twice daily as needed for anxiety Alprazolam (Xanax) 1 mg Tablet Discontinued 1 MG PO Twice daily as needed for Anxiety March 04, 2021 11:00pm March 09, 2021 10:35am Start: 02-05-2020 End: 02-08-2020 Alprazolam 1 mg tablet Disco ntinued 1 MG PO Twice daily February 04, 2020 11:00pm February 08, 2020 10:22am 1 in a.m., 1 in afternoon Start: 02-05-2020 End: 02-08-2020 take 1 tablet by mouth once daily at bedtime Alprazolam 2 mg tablet Discontinued 2 MG PO Daily at bedtime February 04, 2020 11:00pm February 08, 2020 10:22am Start: 12-05-2019 End: 02-05-2020 take 1 tablet by mouth once daily as needed for anxiety Alprazolam 0.5 mg Tablet Discontinued 0.5 MG PO Daily as needed for Anxiety December 05, 2019 12:00am February 05, 2020 4:35pm Start: 12-05-2019 End: 02-05-2020 take 2 tablets by mouth at bedtime Alprazolam 0.5 mg Tablet Discontinued 1 MG PO Bedtime December 05, 2019 12:00am February 05, 2020 4:35pm Start: 12-05-2019 End: 02-05-2020 take 1 mg by mouth at bedtime Alprazolam Discontinued 1 MG PO Bedtime December 05, 2019 1:00am February 05, 2020 5:35pm Start: 08-06-2019 End: 12-05-2019 take 1 tablet by mouth twice daily Alprazolam (Xanax) 1 mg Tablet Discontinued 1 MG PO Twice daily August 10, 2019 10:01am December 05, 2019 2:07pm 0900,1400 Start: 08-06-2019 End: 12-05-2019 take 1 tablet by mouth at bedtime Alprazolam 2 mg tablet Discontinued 2 MG PO Bedtime 0 August [...] mouth twice daily as needed for anxiety Alprazolam (Xanax) 1 mg tablet Discontinued 1 MG PO Twice daily as needed for anxiety October 28, 2018 12:00am October 31, 2018 8:32am Start: 07-30-2018 End: 08-04-2018 take 1 tablet by mouth twice daily as needed for anxiety Alprazolam 1 mg tablet Discontinued 1 MG PO Twice daily as needed for Anxiety July 29, 2018 11:00pm August 04, 2018 9:47am Start: 07-30-2018 End: 08-04-2018 take 1 tablet by mouth once daily as needed for anxiety Alprazolam 0.5 mg tablet Discontinued 0.5 MG PO Daily as needed for Anxiety July 29, 2018 11:00pm August 04, 2018 9:47am Start: 01-04-2018 End: 01-09-2018 take 1 tablet by mouth twice daily Alprazolam 0.25 mg tablet Discontinued 0.25 MG PO Twice daily January 03, 2018 11:00pm January 09, 2018 10:18am amitriptyline hydrochloride 10 mg oral tablet (1 source) Tricyclic Antidepressant take 1 tablet by mouth every twenty-four hours Amitriptyline HCl 10 MG 1 tablet at bedtime Orally Once a day Active 24 hr desvenlafaxine succinate 25 mg extended release oral tablet (7 sources) Serotonin and Norepinephrine Reuptake Inhibitor Start: 2024 take 1 tablet by mouth every twenty-four hours in the morning desvenlafaxine (PRISTIQ) 25 mg 24 hr tablet Take 1 tablet (25 mg total) by mouth in the morning. 12/03/2024 Active Start: 12-03-2024 take 1 tablet by john once daily Desvenlafaxine Succinate 25 mg Tablet Extended Release 24 Hr Active 25 MG PO Daily December 03, 2024 12:00am doxepin hydrochloride 25 mg oral capsule (20 sources) Tricyclic Antidepressant Start: 01-19-2025 take 1 capsule by mouth once daily doxepin (SINEquan) 25 mg capsule Take 1 capsule (25 mg total) by mouth nightly. 01/19/2025 Active Start: 07-26-2024 End: 12-18-2024 take 1 capsule by mouth once daily doxepin (SINEquan) 25 mg capsule Take 1 capsule (25 mg total) by mouth nightly. 30 capsule 2 07/26/2024 12/18/2024 Discontinued Start: 07-17-2024 take 10 mg by mouth once daily at bedtime Doxepin Active 10 MG PO Daily at bedtime July 17, 2024 12:00am Start: 08-24-2023 End: 07-15-2024 take 1 capsule by mouth at bedtime Doxepin 100 mg capsule Discontinued 100 MG PO Bedtime January 20, 2024 10:25am July 15, 2024 1:07am Start: 04-13-2023 End: 04-17-2023 take 1 capsule by mouth at bedtime Doxepin 25 mg capsule Discontinued 25 MG PO Bedtime April 12, 2023 11:00pm April 17, 2023 11:19am Start: 06-12-2022 End: 08-29-2022 take 1 capsule by mouth once daily at bedtime Doxepin 100 mg Capsule Discontinued 100 MG PO Daily at bedtime June 11, 2022 11:00pm August 29, 2022 4:48pm Start: 06-12-2022 End: 08-29-2022 take 1 capsule by mouth twice daily as needed Doxepin 25 mg Capsule Discontinued 25 MG PO Twice daily as needed for Agitation June 11, 2022 11:00pm August 29, 2022 4:48pm Start: 02-22-2022 End: 06-12-2022 take 1 capsule by mouth once daily as needed Doxepin 25 mg Capsule Discontinued 25 MG PO Daily as needed for Agitation March 23, 2022 10:51am June 12, 2022 11:52am estradiol 0.5 mg oral tablet (1 source) Estrogen Start: 07-14-2024 take 0.5 mg by mouth once daily Estradiol Active 0.5 MG PO Daily July 14, 2024 12:00am ferrous sulfate 325 mg oral tablet (3 sources) Start: 02-20-2025 take 1 tablet by mouth in the morning ferrous sulfate 325 (65 FE) MG tablet Indications: Hx of iron deficiency anemia Take 1 tablet (325 mg total) by mouth in the morning. 30 tablet 3 02/20/2025 Active levothyroxine sodium 0.075 mg oral tablet (20 sources) l-Thyroxine Start: 07-25-2024 End: 02-20-2025 take 1 tablet by mouth in the morning levothyroxine (SYNTHROID, LEVOTHROID) 75 MCG tablet Indications: Hypothyroidism, unspecified type Take 1 tablet (75 mcg total) by mouth in the morning. 90 tablet 1 02/20/2025 Active Start: 08-29-2022 End: 01-20-2024 take 1 tablet by mouth once daily Levothyroxine 75 mcg tablet Discontinued 75 MCG PO Daily August 24, 2023 12:00am October 10, 2023 10:49am Start: 09-14-2017 End: 08-29-2022 take 1 tablet by mouth once daily Levothyroxine (Synthroid) 50 mcg Tablet Discontinued 50 MCG PO DAILY@0630 7 7 March 23, 2022 10:51am August 29, 2022 4:09pm take 1 tablet by john th once daily in the morning Synthroid 50 MCG 1 tablet on an empty stomach in the morning Orally Once a day Active lisdexamfetamine dimesylate 30 mg oral capsule (20 sources) Central Nervous System Stimulant Start: 11-30-2024 take 1 capsule by mouth once daily Lisdexamfetamine (Vyvanse) 30 mg capsule Active 30 MG PO Daily November 30, 2024 12:00am Start: 10-13-2023 End: 07-17-2024 take 1 capsule by mouth once daily Lisdexamfetamine (Vyvanse) 30 mg capsule Discontinued 30 MG PO Daily 04 08October 13, 2023 July 17, 2024 10:11am Start: 04-13-2023 End: 10-11-2023 take 1 capsule by mouth once daily Lisdexamfetamine (Vyvanse) 30 mg capsule Discontinued 30 MG PO Daily April 12, 2023 11:00pm October 11, 2023 11:26am nicotine 2 mg chewing gum (20 sources) Cholinergic Nicotinic Agonist Start: 12-03-2024 Nicotine (Polacrilex ) 2 mg Gum Active 2 MG BUCCAL Q2H as needed for Nicotine Cravings December 03, 2024 12:00am Start: 07-17-2024 Nicotine Activ e 21 MG TRANSDERML Daily July 17, 2024 12:00am Start: 06-12-2022 End: 08-29-2022 apply 1 dose transdermal route every twenty-four hours Nicotine 21 mg/24 hr Patch 24 Hour Discontinued 1 EACH TRANSDERML Daily June 11, 2022 11:00pm August 29, 2022 4:15pm Start: 06-12-2022 End: 08-29-2022 Nicotine Discontinued 1 EACH TRANSDERML Daily June 12, 2022 12:00am August 29, 2022 5:15pm Start: 03-23-2022 End: 06-06-2022 apply 1 dose transdermal route every twenty-four hours Nicotine 21 mg/24 hr Patch 24 Hour Discontinued 1 EACH TRANSDERML Daily March 22, 2022 11:00pm June 06, 2022 6:50pm Start: 03-23-2022 End: 06-06-2022 Nicotine Discontinued 1 EACH TRANSDERML Daily March 23, 2022 12:00am June 06, 2022 7:50pm Start: 11-09-2021 End: 02-18-2022 apply 1 dose transdermal route every twenty-four hours Nicotine 21 mg/24 hr Patch 24 Hour Discontinued 1 EACH TRANSDERML Daily November 09, 2021 12:00am February 18, 2022 3:17pm Start: 11-09-2021 End: 02-18-2022 Nicotine Discontinued 1 EACH TRANSDERML Daily November 09, 2021 1:00am February 18, 2022 4:17pm Start: 07-24-2021 End: 11-02-2021 apply 1 dose transdermal route every twenty-four hours Nicotine 21 mg/24 hr Patch 24 Hour Discontinued 1 EACH TRANSDERML Daily July 23, 2021 11:00pm November 02, 2021 7:49pm Start: 07-24-2021 End: 11-02-2021 Nicotine Discontinued 1 EACH TRANSDERML Daily July 24, 2021 12:00am November 02, 2021 8:49pm Start: 11-30-2019 End: 02-05-2020 apply 1 dose transdermal route every twenty-four hours Nicotine 14 mg/24 hr Patch 24 Hour Discontinued 1 EACH TRANSDERML Daily December 05, 2019 12:00am February 05, 2020 4:36pm Start: 11-30-2019 End: 02-05-2020 Nicotine Discontinued 1 EACH TRANSDERML Daily December 05, 2019 1:00am February 05, 2020 5:36pm Start: 08-10-2019 End: 11-27-2019 apply 1 dose transdermal route every twenty-four hours Nicotine 21 mg/24 hr Patch 24 Hour Discontinued 1 EACH TRANSDERML Daily August 10, 2019 12:00am November 27, 2019 4:35pm Start: 08-10-2019 End: 11-27-2019 Nicotine Discontinued 1 EACH TRANSDERML Daily August 10, 2019 1:00am November 27, 2019 5:35pm Start: 10-31-2018 End: 08-06-2019 Nicotine 7 mg/24 hr Patch 24 Hour Discontinued 1 EACH TRANSDERML Daily October 31, 2018 12:00am August 06, 2019 8:07pm Start: 10-31-2018 End: 08-06-2019 Nicotine Discontinued 1 EACH TRANSDERML Daily October 31, 2018 1:00am August 06, 2019 9:07pm Start: 01-09-2018 End: 07-30-2018 Nicotine 7 mg/24 hr Patch 24 Hour Discontinued 1 EACH TRANSDERML Daily January 08, 2018 11:00pm July 30, 2018 8:10am Start: 01-09-2018 End: 07-30-2018 Nicotine Discontinued 1 EACH TRANSDERML Daily January 09, 2018 12:00am July 30, 2018 9:10am ondansetron 4 mg disintegrating oral tablet (12 sources) Serotonin-3 Receptor Antagonist Start: 12-03-2024 take 1 tablet by mouth every six hours as needed for nausea and vomiting Ondansetron 4 mg Tablet,Disintegrating Active 4 MG PO Every 6 hours as needed for Nausea And Vomiting December 03, 2024 12:00am Start: 07-26-2024 End: 04-03-2025 take 1 tablet by mouth every eight hours as needed for nausea ondansetron ODT (ZOFRAN ODT) 4 mg disintegrating tablet Dissolve 1 tablet (4 mg total) on tongue every 8 (eight) hours as needed for nausea. 20 tablet 1 04/03/2025 Active Start: 07-17-2024 take 4 mg by mouth e very four hours Ondansetron Active 4 MG PO Every 4 hours 60 July 17, 2024 12:00am promethazine hydrochloride 12.5 mg oral tablet (9 sources) Phenothiazine Start: 07-26-2024 take 1 tablet by mouth every six hours as needed for nausea and vomiting promethazine (PHENERGAN) 12.5 mg tablet Take 1 tablet (12.5 mg total) by mouth every 6 (six) hours as needed for nausea or vomiting. 12 tablet 07/26/2024 Active Start: 07-17-2024 take 12.5 mg by mout h every eight hours Promethazine Active 12.5 MG PO Every 8 hours 60 July 17, 2024 12:00am zolpidem tartrate 5 mg oral tablet (20 sources) gamma-Aminobutyric Acid-ergic Agonist Start: 05-30-2024 take 1 tablet by mouth once daily as needed for sleep zolpidem (AMBIEN) 5 mg tablet Indications: Insomnia, unspecified type Take 1 tablet (5 mg total) by mouth nightly as needed for sleep. 30 tablet 2 05/30/2024 Active Start: 08-29-2022 End: 04-13-2023 take 1 tablet by mouth at bedtime as needed Zolpidem (Ambien) 5 mg tablet Discontinued 5 MG PO Bedtime as needed for Insomnia August 29, 2022 12:00am April 13, 2023 9:25am Start: 06-06-2022 End: 06-12-2022 take 1 tablet by mouth at bedtime Zolpidem 5 mg tablet Discontinued 5 MG PO Bedtime June 05, 2022 11:00pm June 12, 2022 11:52am Start: 08-04-2018 End: 10-28-2018 take 1 tablet by mouth once daily at bedtime Zolpidem 10 mg Tablet Discontinued 10 MG PO Daily at bedtime 14 August 03, 2018 11:00pm October 28, 2018 9:40am Completed/Discontinued Medications Medication Drug Class(es) Dates Sig (Normalized) Sig (Original) amLODIPine 2.5 mg oral tablet (15 sources) Dihydropyridine Calcium Channel Rios Start: 04-13-2023 End: 12-18-2024 take 1 tablet by mouth in the morning amLODIPine (NORVASC) 2.5 mg tablet Take 1 tablet (2.5 mg total) by mouth in the morning. 10/11/2023 12/18/2024 Discontinued ARIPiprazole 5 mg oral tablet (9 sources) Atypical Antipsychotic Start: 08-04-2018 End: 10-28-2018 take 1 tablet by mouth once daily Aripiprazole 5 mg Tablet Discontinued 5 MG PO Daily August 03, 2018 11:00pm October 28, 2018 9:40am atorvastatin 40 mg oral tablet (8 sources) HMG-CoA Reductase Inhibitor Start: 08-29-2022 End: 10-10-2023 take 1 tablet by mouth at bedtime Atorvastatin (Lipitor) 40 mg tablet Discontinued 40 MG PO Bedtime August 29, 2022 12:00am October 10, 2023 10:49am 24 hr buPROPion hydrochloride 300 mg extended release oral tablet (20 sources) Aminoketone Start: 11-30-2024 End: 12-03-2024 take 1 tablet by mouth once daily Bupropion Hcl 300 mg tablet extended release 24 hr Discontinued 300 MG PO Daily November 30, 2024 12:00am December 03, 2024 10:51am Start: 01-20-2024 End: 07-15-2024 take 1 tablet by mouth once daily Bupropion Hcl 150 mg Tablet Extended Release 24 Hr Discontinued 150 MG PO Daily January 19, 2024 11:00pm July 15, 2024 1:47am Start: 04-17-2023 End: 08-24-2023 Bupropion Hcl 150 mg Tablet Extended Release 24 Hr Discontinued 150 MG PO Daily April 16, 2023 11:00pm August 24, 2023 12:19am Take with 300 mg tablet for total of 450 Start: 04-13-2023 End: 01-20-2024 take 1 tablet by mouth once daily Bupropion Hcl 300 mg tablet extended release 24 hr Discontinued 300 MG PO Daily April 22, 2023 11:00pm October 11, 2023 11:26am Start: 06-12-2022 End: 04-13-2023 take 1 tablet by mouth twice daily Bupropion Hcl (Wellbutrin Sr) 200 mg tablet sustained-release 12 hr Discontinued 200 MG PO Twice daily 30 September 01, 2022 9:59am April 13, 2023 9:08am Start: 03-23-2022 End: 06-12-2022 take 1 tablet by mouth twice daily Bupropion Hcl 150 mg Tablet Sustained-Release 12 Hr Discontinued 150 MG PO Twice daily 14 March 22, 2022 11:00pm June 12, 2022 11:52am Start: 02-18-2022 End: 03-23-2022 take 1 tablet by mouth twice daily in the morning Bupropion Hcl 100 mg tablet sustained-release 12 hr Discontinued 150 MG PO Twice daily February 18, 2022 3:18pm March 23, 2022 10:53am Take in the morning and the afternoon Start: 11-09-2021 End: 02-18-2022 take 1 tablet by mouth twice daily in the morning Bupropion Hcl 100 mg Tablet Sustained-Release 12 Hr Discontinued 100 MG PO Twice daily 60 November 09, 2021 12:00am February 18, 2022 3:18pm Take in the morning and the afternoon Start: 01-04-2018 End: 01-04-2018 Bupropion Hcl 300 mg tablet extended release 24 hr Discontinued January 03, 2018 11:00pm January 04, 2018 8:37am Start: 09-14-2017 End: 07-02-2019 take 1 tablet by mouth once daily in the morning Bupropion Hcl 300 mg Tablet Extended Release 24 Hr Discontinued 300 MG PO Every morning January 08, 2018 11:00pm July 30, 2018 8:12am cariprazine 3 mg oral capsule (7 sources) Atypical Antipsychotic Start: 04-13-2023 End: 04-17-2023 take 1 capsule by mouth once daily Cariprazine (Vraylar) 3 mg capsule Discontinued 3 MG PO Daily April 12, 2023 11:00pm April 17, 2023 11:19am chlordiazePOXIDE hydrochloride 10 mg oral capsule (10 sources) Benzodiazepine Start: 01-04-2018 End: 01-09-2018 take 1 capsule by mouth once daily in the evening Chlordiazepoxide Hcl 10 mg capsule Discontinued 10 MG PO Every evening January 03, 2018 11:00pm January 09, 2018 10:18am Librium 10 MG 1 capsule Orally AT NIGHT Not-Taking cholecalciferol 0.025 mg oral tablet (9 sources) Vitamin D Start: 11-30-2019 End: 02-05-2020 take 1 tablet by mouth once daily Cholecalciferol (Vitamin D3) 25 mcg (1,000 unit) Tablet Discontinued 2000 UNIT PO Daily 60 30 November 30, 2019 12:00am February 05, 2020 4:35pm clonazePAM 1 mg oral tablet (16 sources) Benzodiazepine Start: 04-13-2023 End: 08-24-2023 take 1 tablet by mouth three times daily Clonazepam (Klonopin) 1 mg tablet Discontinued 1 MG PO Three times daily April 12, 2023 11:00pm August 24, 2023 12:19am Start: 08-29-2022 End: 08-29-2022 take 1 tablet by mouth twice daily as needed for anxiety Clonazepam (Klonopin) 1 mg tablet Discontinued 1 MG PO Twice daily as needed for Anxiety August 29, 2022 12:00am August 29, 2022 4:48pm take 1 tablet by john th every twenty-four hours KlonoPIN 0.5 MG 1 tablet Orally Once a day Active Diclofenac (9 sources) Nonsteroidal Anti-inflammatory Drug Start: 11-30-2019 End: 02-05-2020 apply 2 g topically four times daily as needed for pain Diclofenac Sodium 1 % Gel Discontinued 2 GM TOPICAL Four times daily as needed for Pain November 30, 2019 12:00am February 05, 2020 [...] 5:35pm docusate sodium 100 mg oral capsule (20 sources) Start: 09-01-2022 End: 10-10-2023 take 1 capsule by mouth twice daily as needed for constipation Docusate Sodium 100 mg Capsule Discontinued 100 MG PO Twice daily as needed for Constipation September 01, 2022 12:00am October 10, 2023 10:49am Start: 07-05-2019 take 1 capsule by mouth once d aily docusate (COLACE, DULCOLAX) 100 MG CAPS Take 100 mg by mouth nightly 30 capsule 0 07/05/2019 Active Start: 01-09-2018 End: 10-31-2018 take 1 capsule by mouth twice daily as needed for constipation Docusate Sodium 100 mg capsule Discontinued 100 MG PO Twice daily as needed for Constipation July 30, 2018 8:12am October 31, 2018 8:32am doxycycline hyclate 100 mg oral tablet (13 sources) Tetracycline-class Drug Start: 08-24-2023 End: 08-24-2023 Doxycycline Hyclate 100 mg tablet Discontinued 75 MG PO Twice daily August 24, 2023 12:17am August 24, 2023 12:23am Start: 08-24-2023 End: 08-24-2023 take 75 mg by mouth twice daily Doxycycline Hyclate Di scontinued 75 MG PO Twice daily August 24, 2023 1:17am August 24, 2023 1:23am Start: 05-01-2023 End: 08-24-2023 take 1 tablet by mouth twice daily Doxycycline Hyclate 100 mg Tablet Discontinued 100 MG PO Twice daily 05 06April 30, 2023 11:00pm August 24, 2023 12:17am DULoxetine 30 mg delayed release oral capsule (20 sources) Serotonin and Norepinephrine Reuptake Inhibitor Start: 07-24-2021 End: 06-12-2022 take 3 capsules by mouth once daily Duloxetine 30 mg Capsule,Delayed Release(Dr/Ec) Discontinued 90 MG PO Daily 22 04March 23, 2022 10:51am June 12, 2022 11:52am Start: 07-24-2021 End: 06-12-2022 take 90 mg by mouth once daily Duloxetine Discontinued 90 MG PO Daily 22 04March 23, 2022 11:51am June 12, 2022 12:52pm Start: 11-27-2019 End: 11-02-2021 take 1 capsule by mouth once daily Duloxetine 60 mg Capsule,Delayed Release(Dr/Ec) Discontinued 60 MG PO Daily July 24, 2021 8:18am November 02, 2021 7:48pm Start: 08-10-2019 End: 11-27-2019 take 3 capsules by mouth once daily Duloxetine 30 mg Capsule,Delayed Release(Dr/Ec) Discontinued 90 MG PO Daily August 10, 2019 12:00am November 27, 2019 4:33pm Start: 08-10-2019 End: 11-27-2019 take 90 mg by mouth once daily Duloxetine Discontinued 90 MG PO Daily August 10, 2019 1:00am November 27, 2019 5:33pm Start: 08-06-2019 End: 08-10-2019 take 1 capsule by mouth once daily Duloxetine 60 mg capsule,delayed release(DR/EC) Discontinued 60 MG PO Daily August 06, 2019 12:00am August 10, 2019 10:01am Start: 07-06-2019 End: 02-18-2022 take 1 capsule by mouth once daily Duloxetine 30 mg Capsule,Delayed Release(Dr/Ec) Discontinued 30 MG PO DAILY@1700 30 November 09, 2021 12:00am February 18, 2022 3:18pm famotidine 20 mg oral tablet (4 sources) Histamine-2 Receptor Antagonist Start: 07-17-2024 End: 12-18-2024 take 1 tablet by mouth once daily as needed famotidine (PEPCID) 20 mg tablet Take 1 tablet (20 mg total) by mouth nightly as needed. 07/17/2024 12/18/2024 Discontinued FLUoxetine 40 mg oral capsule (9 sources) Serotonin Reuptake Inhibitor Start: 07-30-2018 End: 10-31-2018 Fluoxetine 40 mg capsule Discontinued 60 MG PO Daily July 29, 2018 11:00pm October 31, 2018 8:32am Start: 07-30-2018 End: 10-31-2018 take 60 mg [...] Discontinued 400 MG PO Three times daily 30 September 01, 2022 9:59am April 13, 2023 9:08am Start: 06-06-2022 End: 08-29-2022 Gabapentin 800 mg tablet Discontinued 400 MG PO Three times daily June 06, 2022 6:51pm August 29, 2022 4:50pm Start: 06-06-2022 End: 08-29-2022 take 400 mg by mouth three times daily Gabapentin Discontinued 400 MG PO Three times daily June 06, 2022 7:51pm August 29, 2022 5:50pm Start: 07-20-2021 End: 06-06-2022 take 1 tablet by mouth three times daily Gabapentin 800 mg tablet Discontinued 800 MG PO Three times daily 22 04March 23, 2022 10:51am June 06, 2022 6:52pm Start: 02-08-2020 End: 07-20-2021 take 1 capsule by mouth three times daily Gabapentin 400 mg Capsule Discontinued 400 MG PO Three times daily February 07, 2020 11:00pm July 20, 2021 9:00pm Start: 02-05-2020 End: 02-08-2020 take 1 capsule by mouth three times daily Gabapentin 300 mg capsule Discontinued 300 MG PO Three times daily February 04, 2020 11:00pm February 08, 2020 10:22am Start: 11-30-2019 End: 02-05-2020 take 1 capsule by mouth three times daily Gabapentin 400 mg Capsule Discontinued 400 MG PO Three times daily November 30, 2019 12:00am February 05, 2020 4:36pm Start: 11-27-2019 End: 11-30-2019 take 1 capsule by mouth twice daily Gabapentin 300 mg capsule Discontinued 300 MG PO Twice daily November 27, 2019 12:00am November 30, 2019 11:08am Start: 09-14-2017 End: 07-02-2019 take 1 capsule by mouth three times daily gabapentin (NEURONTIN) 400 MG capsule Take 1 capsule by mouth 3 times daily 90 capsule 0 09/14/2017 07/02/2019 Discontinued take 1 capsule by [facility] every twenty-four hours Gabapentin 100 MG 1 capsule Orally Once a day Active haloperidol 2 mg oral tablet (9 sources) Typical Antipsychotic Start: 03-09-2021 End: 07-20-2021 take 1 tablet by mouth once daily at bedtime Haloperidol 2 mg Tablet Discontinued 2 MG PO Daily at bedtime [...] 07/02/2019 Discontinued lamoTRIgine 200 mg oral tablet (9 sources) Mood Stabilizer, Anti-epileptic Agent Start: 07-30-2018 End: 08-04-2018 take 1 tablet by mouth once daily Lamotrigine 200 mg tablet Discontinued 200 MG PO Daily July 29, 2018 11:00pm August 04, 2018 9:48am lidocaine 0.04 mg/mg medicated patch (9 sources) Antiarrhythmic, Amide Local Anesthetic Start: 03-23-2022 End: 06-06-2022 apply 1 dose topically once daily Lidocaine (Lidocaine Pain Relief) 4 % Adhesive Patch,Medicated Discontinued 1 PATCH TOPICAL Daily March 22, 2022 11:00pm June 06, 2022 6:56pm loratadine 10 mg oral tablet (9 sources) Start: 10-31-2018 End: 08-06-2019 take 1 tablet by mouth once daily in the morning Loratadine 10 mg Tablet Discontinued 10 MG PO Every morning October 31, 2018 12:00am August 06, 2019 8:07pm LORazepam 0.5 mg oral tablet (9 sources) Benzodiazepine Start: 01-09-2018 End: 07-30-2018 take 1 tablet by mouth twice daily as needed for anxiety Lorazepam 0.5 mg Tablet Discontinued 0.5 MG PO Twice daily as needed for Anxiety January 08, 2018 11:00pm July 30, 2018 8:13am lurasidone hydrochloride 60 mg oral tablet (10 sources) Atypical Antipsychotic Start: 10-31-2018 End: 08-06-2019 take 1 tablet by mouth once daily Lurasidone 60 mg tablet Discontinued 60 MG PO Daily with supper October 31, 2018 12:00am August 06, 2019 8:07pm mirtazapine 45 mg oral tablet (20 sources) Start: 04-17-2023 End: 08-24-2023 take 1 tablet by mouth once daily at bedtime Mirtazapine 45 mg tablet Discontinued 45 MG PO Daily at bedtime April 16, 2023 11:00pm August 24, 2023 12:19am Start: 08-29-2022 End: 12-18-2024 take 1 tablet by mouth at bedtime Mirtazapine (Remeron) 30 mg tablet Discontinued 30 MG PO Bedtime September 01, 2022 9:59am April 17, 2023 11:19am [facility] Remeron 15 MG 1 tablet at bedtime Orally Once a day Active mupirocin 0.02 mg/mg topical ointment (7 sources) RNA Synthetase Inhibitor Antibacterial Start: 05-01-2023 End: 08-24-2023 Mupirocin 2 % Ointment Discontinued 1 APPLIC TOPICAL Twice daily April 30, 2023 11:00pm August 24, 2023 12:19am with dressing changes left wrist naproxen 500 mg oral tablet (6 sources) Nonsteroidal Anti-inflammatory Drug Start: 08-26-2023 End: 10-10-2023 take 1 tablet by mouth twice daily at mealtime as needed for pain Naproxen 500 mg Tablet Discontinued 500 MG PO Twice daily with meals as needed for rheumatoid pain 56 August 26, 2023 12:00am October 10, 2023 10:49am nortriptyline 50 mg oral capsule (15 sources) Tricyclic Antidepressant Start: 05-01-2023 End: 08-24-2023 take 1 capsule by mouth once daily at bedtime Nortriptyline 50 mg capsule Discontinued 100 MG PO Daily at bedtime 60 April 30, 2023 11:00pm August 24, 2023 12:19am Start: 05-01-2023 End: 08-24-2023 take 100 mg by mouth once daily at bedtime Nortriptyline Discontinued 100 MG PO Daily at bedtime 60 May 01, 2023 12:00am August 24, 2023 1:19am Start: 04-17-2023 End: 05-01-2023 take 1 capsule by mouth once daily at bedtime Nortriptyline 25 mg Capsule Discontinued 25 MG PO Daily at bedtime April 16, 2023 11:00pm May 01, 2023 11:14am take 1 capsule by mo [facility] every twenty-four hours Nortriptyline HCl 10 MG 1 capsule Orally Once a day Active OLANZapine 5 mg oral tablet (10 sources) Atypical Antipsychotic Start: 10-31-2018 End: 08-06-2019 take 1 tablet by mouth every six hours as needed Olanzapine 5 mg Tablet Discontinued 5 MG PO Q6H as needed for Agitation October 31, 2018 12:00am August 06, 2019 8:08pm Start: 09-14-2017 End: 07-02-2019 take 1 tablet by mouth once daily OLANZapine (ZYPREXA) 15 MG tablet Take 1 tablet by mouth nightly 30 tablet 0 09/14/2017 07/02/2019 Discontinued 24 hr paliperidone 3 mg extended release oral tablet (9 sources) Atypical Antipsychotic Start: 08-10-2019 End: 11-27-2019 take 1 tablet by mouth once daily at bedtime Paliperidone 3 mg Tablet Extended Release 24hr Discontinued 3 MG PO Daily at bedtime August 10, 2019 12:00am November 27, 2019 4:44pm pantoprazole 40 mg delayed release oral tablet (4 sources) Proton Pump Inhibitor Start: 07-26-2024 End: 12-18-2024 take 1 tablet by mouth in the morning, then take 1 tablet by mouth at bedtime pantoprazole (PROTONIX) 40 mg EC tablet Take 1 tablet (40 mg total) by mouth in the morning and 1 tablet (40 mg total) before bedtime. 60 tablet 1 07/26/2024 12/18/2024 Discontinued Start: 07-15-2024 take 40 mg by mouth twice daily Pantoprazole Active 40 MG PO Twice daily 120 60 July 15, 2024 12:00am prazosin 1 mg oral capsule (13 sources) alpha-Adrenergic Iros Start: 07-24-2021 End: 11-02-2021 take 3 mg by mouth once daily at bedtime Prazosin Discontinued 3 MG PO Daily at bedtime July 24, 2021 12:00am November 02, 2021 8:49pm Start: 07-05-2019 take 1 capsule by mo [facility] once daily prazosin (MINIPRESS) 2 MG capsule Take 1 capsule by mouth nightly 30 capsule 0 07/05/2019 Active Start: 07-05-2019 End: 11-02-2021 take 1 capsule by mouth once daily at bedtime Prazosin 1 mg Capsule Discontinued 3 MG PO Daily at bedtime July 23, 2021 11:00pm November 02, 2021 7:49pm propranolol hydrochloride 20 mg oral tablet (16 sources) beta-Adrenergic Rios Start: 08-29-2022 End: 04-13-2023 take 1 tablet by mouth twice daily Propranolol 20 mg tablet Discontinued 20 MG PO Twice daily 15 15 September 01, 2022 9:59am April 13, 2023 9:24am QUEtiapine 100 mg oral tablet (20 sources) Atypical Antipsychotic Start: 08-24-2023 End: 10-10-2023 take 1 tablet by mouth at bedtime Quetiapine 100 mg tablet Discontinued 100 MG PO Bedtime August 24, 2023 12:00am October 10, 2023 10:49am Start: 04-17-2023 End: 08-24-2023 take 1 tablet by mouth three times daily as needed for anxiety Quetiapine 25 mg Tablet Discontinued 25 MG PO Three times daily as needed for Anxiety 60 April 16, 2023 11:00pm August 24, [...] 8:32am Start: 07-30-2018 End: 08-04-2018 take 1 tablet by mouth at bedtime Quetiapine 400 mg tablet Discontinued 400 MG PO Bedtime July 29, 2018 11:00pm August 04, 2018 9:49am Start: 01-09-2018 End: 07-30-2018 take 4 tablets by mouth once daily at bedtime Quetiapine 50 mg Tablet Discontinued 200 MG PO Daily at bedtime January 08, 2018 11:00pm July 30, 2018 8:10am Start: 01-09-2018 End: 07-30-2018 take 200 mg by mouth once daily at bedtime Quetiapine Discontinued 200 MG PO Daily at bedtime January 09, 2018 12:00am July 30, 2018 9:10am Sennosides (Senna Lax) 8.6 mg Tablet (8 sources) Start: 09-01-2022 End: 04-13-2023 take 1 tablet by mouth twice daily as needed for constipation Sennosides (Senna Lax) 8.6 mg Tablet Discontinued 1 TAB PO Twice daily as needed for Constipation September 01, 2022 12:00am April 13, 2023 [...] 2022 12:00am sertraline 50 mg oral tablet (20 sources) Serotonin Reuptake Inhibitor Start: 01-09-2018 End: 07-30-2018 take 150 mg by mouth once daily Sertraline Discontinued 150 MG PO Daily January 09, 2018 12:00am July 30, 2018 9:10am Start: 01-04-2018 End: 01-09-2018 Sertraline 100 mg tablet Discontinued 150 MG PO Daily January 03, 2018 11:00pm January 09, 2018 10:19am Start: 01-04-2018 End: 01-09-2018 take 150 mg by mouth once daily Sertraline Discontinue d 150 MG PO Daily January 04, 2018 12:00am January 09, 2018 11:19am Start: 09-14-2017 End: 07-02-2019 take 3 tablets by mouth once daily Sertraline 50 mg Tablet Discontinued 150 MG PO Daily January 08, 2018 11:00pm July 30, 2018 8:10am take 1 tablet by john th once daily Zoloft 150 mg 1 tablet Orally Once a day Not-Taking traZODone hydrochloride 150 mg oral tablet (20 sources) Serotonin Reuptake Inhibitor Start: 04-13-2023 End: 08-24-2023 take 2 tablets by mouth at bedtime as needed Trazodone 150 mg tablet Discontinued 300 MG PO Bedtime as needed for Insomnia April 12, 2023 11:00pm August 24, 2023 12:19am Start: 04-13-2023 End: 08-24-2023 take 300 mg by mouth at bedtime Trazodone Discontinued 300 MG PO Bedtime April 13, 2023 12:00am August 24, 2023 1:19am Start: 06-12-2022 End: 08-29-2022 take 2 tablets by mouth once daily at bedtime Trazodone 100 mg Tablet Discontinued 200 MG PO Daily at bedtime 60 June 11, 2022 11:00pm August 29, 2022 4:50pm Start: 06-12-2022 End: 08-29-2022 take 200 mg by mouth once daily at bedtime Trazodone Discontinued 200 MG PO Daily at bedtime 60 June 12, 2022 12:00am August 29, 2022 5:50pm Start: 03-05-2021 End: 06-12-2022 Trazodone 150 mg tablet Disc ontinued 225 MG PO Daily at bedtime June 06, 2022 6:51pm June 12, 2022 11:52am Start: 03-05-2021 End: 06-12-2022 take 225 mg by mouth once daily at bedtime Trazodone Discontinued 225 MG PO Daily at bedtime June 06, 2022 7:51pm June 12, 2022 12:52pm Start: 11-27-2019 End: 03-05-2021 take 1 tablet by mouth once daily at bedtime Trazodone 150 mg Tablet Discontinued 150 MG PO Daily at bedtime February 07, 2020 11:00pm March 05, 2021 2:37pm Start: 08-10-2019 End: 11-27-2019 take 1 tablet by mouth once daily at bedtime as needed Trazodone 100 mg Tablet Discontinued 100 MG PO Daily at bedtime as needed for Insomnia August 10, 2019 12:00am November 27, 2019 [...] 07/02/2019 Discontinued vortioxetine 20 mg oral tablet (9 sources) Start: 06-12-2022 End: 09-01-2022 take 1 tablet by mouth once daily Vortioxetine (Trintellix) 20 mg Tablet Discontinued 20 MG PO Daily June 11, 2022 11:00pm September 01, 2022 10:42am ziprasidone 20 mg oral capsule (5 sources) Atypical Antipsychotic Start: 10-11-2023 End: 01-18-2024 take 1 capsule by mouth once daily Ziprasidone Hcl 20 mg Capsule Discontinued 20 MG PO Daily with supper October 11, 2023 12:00am January 18, 2024 3:16am Problems Active Problems Problem Classification Problem Date Documented Date Episodic/Chronic Alcohol-related disorders (20 sources) Chronic alcoholism in remission; Translations: [Alcohol dependence, in remission] Onset: 05-04-2023 11-03-2023 Chronic Anxiety disorders (20 sources) Generalized anxiety disorder; Translations: [Generalized anxiety disorder] Onset: 03-23-2022 01-11-2018 Chronic Attention-deficit, conduct, and disruptive behavior disorders (5 sources) Attention deficit hyperactivity disorder; Translations: [Attention-deficit hyperactivity disorder, unspecified type] 10-11-2023 Chronic Attention-deficit, conduct, and disruptive behavior disorders (18 sources) Attention deficit hyperactivity disorder, combined type; Translations: [Attention-deficit hyperactivity disorder, combined type] Onset: 05-04-2023 11-03-2023 Chronic Attention-deficit, conduct, and disruptive behavior disorders (8 sources) Attention deficit hyperactivity disorder, predominantly inattentive type; Translations: [Attention-deficit hyperactivity disorder, predominantly inattentive type] Onset: 07-26-2024 07-26-2024 Chronic Bacterial infection; unspecified site (1 source) Methicillin resistant Staphylococcus aureus infection, unspecified site; Translations: [Infection of wound due to methicillin resistant Staphylococcus aureus (MRSA)] Episodic Blindness and vision defects (9 sources) Visual disturbance; Translations: [Unspecified visual disturbance] 11-28-2019 Episodic Disorders of lipid metabolism (18 sources) Hyperlipidemia; Translations: [Hyperlipidemia, unspecified] Onset: 08-17-2022 04-23-2023 Chronic Disorders of teeth and jaw (5 sources) Other specified disorders of teeth and supporting structures; Translations: [Periapical abscess without sinus] Onset: 09-30-2022 Episodic E Codes: Fall (9 sources) Fall; Translations: [Unspecified fall, initial encounter] 11-28-2019 Episodic Esophageal disorders (5 sources) Gastroesophageal reflux disease; Translations: [Gastro-esophageal reflux disease without esophagitis] Onset: 07-14-2024 07-15-2024 Chronic Essential hypertension (20 sources) Hypertensive disorder; Translations: [Essential (primary) hypertension] Onset: 08-21-2022 04-23-2023 Chronic Headache; including migraine (3 sources) Headache; including migraine; Translations: [HEADACHE UNSPECIFIED] Onset: 03-19-2022 Hepatitis (1 source) Viral hepatitis C; Translations: [Unspecified viral hepatitis C without hepatic coma] Episodic Miscellaneous mental health disorders (2 sources) Insomnia due to other mental disorder; Translations: [Insomnia due to other mental disorder] Onset: 09-16-2023 Chronic Mood disorders (20 sources) Recurrent depression; Translations: [Severe recurrent major depression without psychotic features] Onset: 09-09-2017 Resolved: 08-21-2022 09-09-2017 Chronic Nonspecific chest pain (9 sources) Chest pain; Translations: [Chest pain, unspecified] 02-06-2020 Episodic Nutritional deficiencies (9 sources) Vitamin D deficiency; Translations: [Vitamin D deficiency, unspecified] 11-28-2019 Chronic Open wounds of extremities (17 sources) Self inflicted lacerations to wrist; Translations: [Laceration without foreign body of left wrist, initial encounter] 04-23-2023 Episodic Other aftercare (1 source) Other penitentiary (current) drug therapy; Translations: [OTH CUSTODIAL CURRENT DRUG THERAPY] Onset: 10-01-2022 Episodic Other female genital disorders (4 sources) Abnormal uterine and vaginal bleeding, unspecified; Translations: [ABNORMAL UTERINE AND VAGINAL BLEEDING, UNSPECIFIED] Onset: 04-04-2017 Chronic Other hematologic conditions (1 source) H/O: anemia - iron deficient; Translations: [Personal history of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 Order Comment: FASTI NG Y by MK Result Comment: Chol less than 200 mg/dl low risk Chol 201-239 mg/dl borderline risk Chol 240 mg/dl and greater high risk Performed By: #### T SH3 wRFLX, LIPID, [id number] #### [facility] [address] Cholesterol in LDL Calc [Mas s/Vol]Ordered By: Olvin Rollins on 07-15-2024 Cholesterol in LDL [Mass/Vol] 115 mg/dL High 0-100 [facility] Comment on above: LDL ATP III CLASSIFI CATIONLDL less than 100 mg/dL OptimalLDL 100-129 mg/dL Near or above optimalLDL 130-159 mg/dL Borderline highLDL 160-189 mg/dL HighLDL greater than 189 mg/dL Very high Cholesterol in VLDL Calc [Ma ss/Vol]Ordered By: Olvin Rollins on 07-15-2024 Cholesterol in VLDL [Mass/Vol] 15 mg/dL [facility] Color of Urine by AutoOrdere d By: Adele Hunter on 07-15-2024 Color (U) Colorless Normal Yellow [facility] Comment on above: Order Comment: Name Collection Type:: Other Performed By: #### C UU, ADDONUAPLUS #### [address] Complete Blood Count Auto Di ffon 07-15-2024 Mean Corpuscular HGB Conc 34.0 g/dL Normal 32.0-35.0 [facility] Comment on above: Performed By: #### C MP, CBC, LIPASE #### [address] NRBC% 0.1 /100{WBC} Normal 0-0.5 [facility] Comment on above: Performed By: #### C MP, CBC, LIPASE #### [address] Comprehensive Metabolic Pane jose 07-15-2024 Albumin [Mass/Vol] 4.1 g/dL Normal 3.5-5.7 [facility] Comment on above: Performed By: #### C MP, CBC, LIPASE #### [address] Creatinine Clr Calc Pharmacy 82.61 Normal [facility] Comment on above: Performed By: #### C MP, CBC, LIPASE #### [address] GFR/1.73 sq M.predicted MDRD (S/P/Bld) [Vol rate/Area] mL/min/{1.73_m2} Normal [facility] Comment on above: Performed By: #### C MP, CBC, LIPASE #### [address] Creatinine [Mass/volume] in Serum or PlasmaOrdered By: Adele Hunter on 07-15-2024 Creatinine [Mass/Vol] 0.83 mg/dL Normal 0.60-1.20 [facility] Comment on above: Performed By: #### C MP, CBC, LIPASE #### [address] Dipstick and Microscopicon 1 Bacteria,Urine Rare Normal None Seen [facility] Comment on above: Order Comment: Name Collection Type:: Other Performed By: #### C UU, ADDONUAPLUS #### [place] [address] [place] Bilirubin,Urine Negative Normal Negative [facility] Comment on above: Order Comment: Name Collection Type:: Other Performed By: #### C UU, ADDONUAPLUS #### [address] Glucose Ql (U) Normal Normal Normal [facility] Comment on above: Order Comment: Name Collection Type:: Other Performed By: #### C UU, ADDONUAPLUS #### [place] [address] [place] Hyaline Casts,Urine None Normal 0-8 [facility] Comment on above: Order Comment: Name Collection Type:: Other Performed By: #### C UU, ADDONUAPLUS #### [place] [address] [place] Mucus,Urine Rare Normal [facility] Comment on above: Order Comment: Name Collection Type:: Other Result Comment: PERF ORMED BY: [place] [address] PATHOLOGIST [employer]ER TODD PICKARD M.D. Performed By: #### C UU, ADDONUAPLUS #### [place] [address] [place] Nitrite,Urine Negative Normal Negative [facility] Comment on above: Order Comment: Name Collection Type:: Other Performed By: #### C UU, ADDONUAPLUS #### [place] [address] [place] Occult Blood,Urine Negative Normal Negative [facility] Comment on above: Order Comment: Name Collection Type:: Other Result Comment: PERF ORMED BY: [place] [address] PATHOLOGIST [employer] TODD PICKARD M.D. Performed By: #### C UU, ADDONUAPLUS #### [address] Protein,Urine Negative Normal Negative [facility] Comment on above: Order Comment: Name Collection Type:: Other Performed By: #### C UU, ADDONUAPLUS #### [address] RBC,Urine 3-4 Normal 0-4 [facility] Comment on above: Order Comment: Name Collection Type:: Other Performed By: #### C UU, ADDONUAPLUS #### [address] Specificy [place],Urine 1.007 Normal 1.001-1.030 [facility] Comment on above: Order Comment: Name Collection Type:: Other Performed By: #### C UU, ADDONUAPLUS #### [address] Squamous Epithelial Cell,Urine 5-9 High 0-2 [facility] Comment on above: Order Comment: Name Collection Type:: Other Performed By: #### C UU, ADDONUAPLUS #### [address] Urobilinogen,Urine Normal Normal Normal [facility] Comment on above: Order Comment: Name Collection Type:: Other Performed By: #### C UU, ADDONUAPLUS #### [address] WBC,Urine 5-9 High 0-4 [facility] Comment on above: Order Comment: Name Collection Type:: Other Performed By: #### C UU, ADDONUAPLUS #### [address] ECG 12 lead ECGon 07-15-2024 ECG 12 lead ECG [facility] [place] [address] [place] [address] Electrocardiograph Report Signed Patient: Debra Scott MR#: [id number] : 1975 Acct:[id number] Age/Sex: 49 / F ADM Date: 07/14/24 Loc: Room: [address] [place] [address] Type: ADM IN Attending Dr: Olvin Rollins MD Ordering Provider: Olvin Rollins MD Date of Service: 07/15/24 ECG/ECG 12 lead ECG: use of antipsychotics Copies to: Test Reason : Blood Pressure : */* mmHG Vent. Rate : 60 BPM Atrial Rate : 60 BPM P-R Int : 120 ms QRS Dur : 84 ms QT Int : 466 ms P-R-T Axes : 23 60 48 degrees QTcB Int : 466 ms Normal sinus rhythm Normal ECG When compared with ECG of 18-Jan-2024 09:27, No significant change was found Confirmed by José Miguel Sinha ([id number]) on 07/15/2024 12:36:43 PM Referred By: Electronically Signed By: José Miguel Sinha Transcribed By: MUS Signed By José Miguel Sinha MD 07/15/24 1236 Normal [facility] Epithelial cells.squamous [# /area] in Urine sediment by Automated countOrdered By: Adele Hunter on 07-15-2024 Epithelial cells.squamous Auto (Urine sed) [#/Area] 5-9 [HPF] High 0-2 [facility] Erythrocyte distribution wid th [Ratio] by Automated countOrdered By: Adele Hunter on 07-15-2024 Erythrocyte distribution width (RBC) [Ratio] 12.9 % Normal 11.9-15.3 [facility] Comment on above: Performed By: #### C MP, CBC, LIPASE #### [facility] [address] [place] [address] [place] Erythrocytes [#/area] in Uri ne sediment by Automated countOrdered By: Adele Hunter on 07-15-2024 RBC Auto (Urine sed) [#/Area] 3-4 [HPF] 0-4 [facility] Erythrocytes [#/volume] in B lood by Automated countOrdered By: Adele Schmitt on 07-15-2024 RBC (Bld) [#/Vol] 4.22 10*6/uL Normal 3.60-5.00 [facility] Comment on above: Performed By: #### C MP, CBC, LIPASE #### [facility] [address] [place] [address] [place] Glucose [Mass/volume] in Ser um or PlasmaOrdered By: Adele Hunter on 07-15-2024 Glucose [Mass/Vol] 86 mg/dL Normal 70-100 [facility] Comment on above: ADA recommended refe rence rangeRandom Glucose Reference Range is dependent on time and content of last meal. Glucose of more than 200 mg/dL in a nonstressed, ambulatory subject supports the diagnosis of Diabetes Mellitus. Result Comment: [place] om Glucose Reference Range is dependent on time and content of last meal. Glucose of more than 200 mg/dL in a nonstressed, ambulatory subject supports the diagnosis of Diabetes Mellitus. ADA recommended reference range Performed By: #### C MP, CBC, LIPASE #### [address] Glucose [Mass/volume] in Uri ne by Test stripOrdered By: Adele Hunter on 07-15-2024 Glucose Test strip (U) [Mass/Vol] Normal mg/dL Normal [facility] Hematocrit [Volume Fraction] of Blood by Automated countOrdered By: Adele Hunter on 07-15-2024 Hematocrit (Bld) [Volume fraction] 41.3 % Normal 34.0-46.4 [facility] Comment on above: Performed By: #### C MP, CBC, LIPASE #### [address] Hemoglobin Test strip Ql (U) Ordered By: Adele Hunter on 07-15-2024 Hemoglobin Ql (U) Negative Negative [facility] Hemoglobin [Mass/volume] in BloodOrdered By: Adele Hunter on 07-15-2024 Hemoglobin (Bld) [Mass/Vol] 14.0 g/dL Normal 11.8-15.4 [facility] Comment on above: Performed By: #### C MP, CBC, LIPASE #### [place] [address] [place] Hyaline casts [#/area] in Ur ine sediment by Automated countOrdered By: Adele Hunter on 07-15-2024 Hyaline casts Auto (Urine sed) [#/Area] None [LPF] 0-8 [facility] Ketones [Presence] in Urine by Test stripOrdered By: Adele Hunter on 07-15-2024 Ketones Ql (U) Negative Normal Negative [facility] Comment on above: Order Comment: Name Collection Type:: Other Performed By: #### C UU, ADDONUAPLUS #### [facility] [address] [place] [address] Laboratory - Microbiology an d Antimicrobial susceptibilityOrdered By: Adele Hunter on 07-15-2024 Bacteria identified Cx Nom (U) 2 Days [facility] Leukocyte esterase [Presence ] in Urine by Test stripOrdered By: Adele Schmitt on 07-15-2024 Leukocyte esterase Test strip Ql (U) 3+ High Negative [facility] Comment on above: Order Comment: Name Collection Type:: Other Performed By: #### C UU, ADDONUAPLUS #### [facility] [address] [place] [address] Leukocytes [#/area] in Urine sediment by Automated countOrdered By: Adele Hunter on 07-15-2024 WBC Auto (Urine sed) [#/Area] 5-9 [HPF] High 0-4 [facility] Leukocytes [#/volume] correc vargas for nucleated erythrocytes in Blood by Automated counOrdered By: Adele Hunter on 07-15-2024 WBC corrected for nucl RBC Auto (Bld) [#/Vol] 6.1 10*3/uL 3.8-11.6 [facility] Leukocytes [#/volume] in Blo od by Automated countOrdered By: Adele Schmitt on 07-15-2024 WBC (Bld) [#/Vol] 6.1 10*3/uL Normal 3.8-11.6 [facility] Comment on above: Performed By: #### C MP, CBC, LIPASE #### [facility] [address] [place] [address] Lipase [Enzymatic activity/v olume] in Serum or PlasmaOrdered By: Adele Hunter on 10-13-2024 Lipase [Catalytic activity/Vol] 36.0 U/L Normal 11.0-82.0 [facility] Comment on above: Result Comment: PERF ORMED BY: [place] [address] PATHOLOGIST [employer] TODD PICKARD M.D. Performed By: #### C MP, CBC, LIPASE #### [address] Lipid Panelon 07-15-2024 LDL Cholesterol,Calculated 115 mg/dL High 0-100 [facility] Comment on above: Order Comment: FASTI NG Y by MK Result Comment: LDL ATP III CLASSIFICATION LDL less than 100 mg/dL Optimal LDL 100-129 mg/dL Near or above optimal LDL 130-159 mg/dL Borderline high LDL 160-189 mg/dL High LDL greater than 189 mg/dL Very high Performed By: #### T SH3 wRFLX, LIPID, [id number] #### [address] Triglyceride w/Reflex 79 mg/dL Normal 0-149 [facility] Comment on above: Order Comment: FASTI NG Y by GUILHERME Result Comment: TRIG ATP III CLASSIFICATION TRIG less than 150 mg/dL Normal TRIG 150-199 mg/dL Borderline high TRIG 200-500 mg/dL High TRIG greater than 500 mg/dL Very high Standard traceable to the Center for Disease Conrtrol and Prevention (CDC) test method. Performed By: #### T SH3 wRFLX, LIPID, [id number] #### [address] VLDL CHOLESTEROL 15 mg/dL Normal [facility] Comment on above: Order Comment: FASTI NG Y by GUILHERME Performed By: #### T SH3 wRFLX, LIPID, [id number] #### [address] Lymphocytes [#/volume] in Bl ood by Automated countOrdered By: Adele Schmitt on 07-15-2024 Lymphocytes (Bld) [#/Vol] 1.7 10*3/uL Normal 1.00-4.8 [facility] Comment on above: Performed By: #### C MP, CBC, LIPASE #### [address] Lymphocytes/100 leukocytes i n Blood by Automated countOrdered By: Adele Hunter on 07-15-2024 Lymphocytes/100 WBC (Bld) 27.7 % Normal . [facility] Comment on above: Performed By: #### C MP, CBC, LIPASE #### [address] MCH [Entitic mass] by Automa vargas countOrdered By: Adele Hunter on 07-15-2024 MCH (RBC) [Entitic mass] 33.3 pg Normal 24.7-34.3 [facility] Comment on above: Performed By: #### C MP, CBC, LIPASE #### [address] MCHC Auto (RBC) [Mass/Vol]Or dered By: Adele Hunter on 07-15-2024 MCHC (RBC) [Mass/Vol] 34.0 g/dL 32.0-35.0 [facility] MCV [Entitic volume] by Auto mated countOrdered By: Adele Hunter on 07-15-2024 MCV (RBC) [Entitic vol] 97.9 fL Normal 80-100 [facility] Comment on above: Performed By: #### C MP, CBC, LIPASE #### [address] Mucus [Presence] in Urine by AutomatedOrdered By: Adele Hunter on 07-15-2024 Mucus Auto Ql (U) Rare [LPF] [facility] Neutrophils [#/volume] in Bl ood by Automated countOrdered By: Adele Schmitt on 07-15-2024 Neutrophils (Bld) [#/Vol] 3.7 10*3/uL Normal 1.8-7.7 [facility] Comment on above: Performed By: #### C MP, CBC, LIPASE #### [address] Nitrite Test strip Ql (U)Ord ered By: Adele Hunter on 07-15-2024 Nitrite Ql (U) Negative Negative [facility] No Panel InformationOrdered By: Adele Hunter on 07-15-2024 Estimated GFR (CKD-EPI) > 60.0 mL/Min [facility] Creatinine Clearance (Chem 82.61 [facility] Nucleated erythrocytes [Pres ence] in Blood by Automated countOrdered By: Adele Hunter on 07-15-2024 Nucleated RBC Auto Ql (Bld) 0.1 /100{WBC} 0-0.5 [facility] Platelet mean volume [Entiti c volume] in Blood by Automated countOrdered By: Adele Hunter on 07-15-2024 Platelet mean volume (Bld) [Entitic vol] 9.5 fL Normal 6.3-10.7 [facility] Comment on above: Performed By: #### C MP, CBC, LIPASE #### [facility] [address] Platelets [#/volume] in Bloo d by Automated countOrdered By: Adele Hunter on 07-15-2024 Platelets (Bld) [#/Vol] 220 10*3/uL Normal 150-450 [facility] Comment on above: Performed By: #### C MP, CBC, LIPASE #### [facility] [address] [place] [address] Potassium [Moles/volume] in Serum or PlasmaOrdered By: Adele Hunter on 07-15-2024 Potassium [Moles/Vol] 4.3 mmol/L Normal 3.5-5.1 [facility] Comment on above: Performed By: #### C MP, CBC, LIPASE #### [facility] [address] [place] [address] [place] Protein Test strip (U) [Mass /Vol]Ordered By: Adele Hunter on 07-15-2024 Protein (U) [Mass/Vol] Negative Negative [facility] Protein [Mass/volume] in Ser um or PlasmaOrdered By: Adele Hunter on 07-15-2024 Protein [Mass/Vol] 6.9 g/dL Normal 6.4-8.9 [facility] Comment on above: Performed By: #### C MP, CBC, LIPASE #### [address] Serum globulin measurement b y calculation (mass/volume)Ordered By: Adele Dale on 07-15-2024 Globulin (S) [Mass/Vol] 2.8 g/dL Normal [facility] Comment on above: Performed By: #### C MP, CBC, LIPASE #### [address] Serum or plasma albumin/glob ulin mass ratioOrdered By: Adele Dale on 07-15-2024 Albumin/Globulin [Mass ratio] 1.5 {ratio} Normal [facility] Comment on above: Performed By: #### C MP, CBC, LIPASE #### [address] Serum or plasma anion gap de terminationOrdered By: Adele Dale on 07-15-2024 Anion gap [Moles/Vol] 11.6 mmol/L Normal 6.0-15.0 [facility] Comment on above: Performed By: #### C MP, CBC, LIPASE #### [address] Serum or plasma high density lipoprotein (HDL) cholesterol measurementOrdered By: Olvin Rollins on 07-15-2024 Cholesterol in HDL [Mass/Vol] 47 mg/dL Normal 23-92 [facility] Comment on above: HDL CHOL ATP-III CLA SSIFICATION Cardiovascular RiskHDL > or equal to 60 mg/dL LOWHDL < 40 mg/dL HIGH Order Comment: SHARIF OLSON Y by MK Result Comment: HDL CHOL ATP-III CLASSIFICATION Cardiovascular Risk HDL > or equal to 60 mg/dL LOW HDL < 40 mg/dL HIGH Performed By: #### T SH3 wRFLX, LIPID, [id number] #### [address] Serum or plasma total choles terol/high density lipoprotein (HDL) cholesterol mass ratOrdered By: Olvin Rollins on 07-15-2024 Cholesterol.total/Choles terol in HDL [Mass ratio] 3.8 {ratio} Normal <5.0 [facility] Comment on above: Order Comment: FASTI NG Y by GUILHERME Performed By: #### T SH3 wRFLX, LIPID, [id number] #### [address] Sodium [Moles/volume] in Ser um or PlasmaOrdered By: Adele Hutner on 07-15-2024 Sodium [Moles/Vol] 139 mmol/L Normal 136-145 [facility] Comment on above: Performed By: #### C MP, CBC, LIPASE #### [address] Specific gravity Test strip (U) [Rel density]Ordered By: Adele Hunter on 07-15-2024 Specific gravity (U) [Rel density] 1.007 1.001-1.030 [facility] Thyroid Stim Hormone w/Rflxo n 07-15-2024 Thyroid Stim Hormone w/Rflx 0.53 u[iU]/mL Normal 0.45-5.33 [facility] Comment on above: Order Comment: FASTI NG Y by GUILHERME Performed By: #### T SH3 wRFLX, LIPID, [id number] #### [facility] [address] [place] [address] Thyrotropin [Units/volume] i n Serum or PlasmaOrdered By: Olvin Rollins on 07-15-2024 TSH Qn 0.53 m[IU]/L 0.45-5.33 [facility] Triglyceride [Mass/volume] i n Serum or PlasmaOrdered By: Olvin Rollins on 07-15-2024 Triglyceride [Mass/Vol] 79 mg/dL 0-149 [facility] Comment on above: TRIG ATP III CLASSIF ICATIONTRIG less than 150 mg/dL NormalTRIG 150-199 mg/dL Borderline highTRIG 200-500 mg/dL High TRIG greater than 500 mg/dL Very highStandard traceable to the Center for Disease Conrtrol and Prevention (CDC) test method. Urea nitrogen [Mass/volume] in Serum or PlasmaOrdered By: Adele Hunter on 07-15-2024 Urea nitrogen [Mass/Vol] 11 mg/dL Normal 7-25 [facility] Comment on above: Performed By: #### C MP, CBC, LIPASE #### [facility] [address] [place] [address] Urine Cultureon 07-15-2024 Bacteria identified Cx Nom (U) >100,000 colonies/ml mixed bacterial skin contaminants 2 Days PERFORMED BY: [place] [address] PATHOLOGIST [employer]ER TODD PICKARD M.D. Normal [facility] Comment on above: Performed By: #### C UU, ADDONUAPLUS #### [address] Urine appearanceOrdered By: Adele Hunter on 07-15-2024 Appearance (U) Clear Normal Clear [facility] Comment on above: Order Comment: Name Collection Type:: Other Performed By: #### C UU, ADDONUAPLUS #### [address] Urobilinogen Test strip (U) [Mass/Vol]Ordered By: Adele Hunter on 07-15-2024 Urobilinogen (U) [Mass/Vol] Normal mg/dL Normal [facility] Vitamin D 25 Hydroxy Totalon 07-15-2024 Vitamin D 25 Hydroxy Total 47.6 ng/mL Normal 30-100 [facility] Comment on above: Order Comment: FASTI NG Y by MK Result Comment: MARINA MIN D STATUS 25(OH)VITAMIN D RANGE (ng/mL) Deficient <20 Insufficient 20 to <30 Sufficient 30 to 100 Reference: Roque MF,Jhony NC, Janina LAYTON, et al. Evaluation,treatment, and prevention of vitamin D deficiency; an Endocrine Society clinical practice guideline. JCEM. 2010; 96(7):1911-30. PERFORMED BY: [facility] [address] [place] [address] PATHOLOGIST [employer] TODD PICKARD M.D. Performed By: #### T SH3 wRFLX, LIPID, [id number] #### [facility] [address] Vitamin D+Metabolites [Mass/ volume] in Serum or PlasmaOrdered By: Olvin Rollins on 07-15-2024 Vitamin D+Metabolites [Mass/Vol] 47.6 ng/mL 30-100 [facility] Comment on above: VITAMIN D STATUS 25( [place])VITAMIN D RANGE (ng/mL) Deficient <20 Insufficient 20 to <30Sufficient 30 to 100Reference: Roque MF,Jhony NC, Janina LAYTON, et al. Evaluation,treatment, and prevention of vitamin D deficiency; an Endocrine Society clinical practice guideline. JCEM. 2010; 96(7):1911-30. pH of Urine by Test stripOrd ered By: Adele Hunter on 07-15-2024 pH (U) 7.0 [pH] Normal 5.0-9.0 [facility] Comment on above: Order Comment: Name Collection Type:: Other Performed By: #### C UU, ADDONUAPLUS #### [facility] [address] CBC AND AUTO DIFFon 01-18-20 24 ABSOLUTE BASOPHIL 0.0 X10E9/L Normal 0.0-0.2 [facility] Comment on above: Performed By: #### C BCA, CMP, 5643-2, THYR #### [facility] ([id number]) [address] [place] [address] 06195 ABSOLUTE NEUTROPHIL 4.0 X10E9/L Normal 1.5-6.6 [facility] Comment on above: Performed By: #### C BCA, CMP, 5643-2, THYR #### [facility] ([id number]) [address] [place] [address] 69201 Basophils/100 WBC (Bld) 0.5 % Normal [facility] Comment on above: Performed By: #### C VERONICA MOHAN, 5643-2, THYR #### [facility] ([id number]) [address] [place] [address] 16354 Eosinophils (Bld) [#/Vol] 0.1 10*3/uL Normal 0.0-0.4 [facility] Comment on above: Performed By: #### C VERONICA MOHAN, [facility]2, THYR #### [facility] ([id number]) [address] [place] [address] 44552 Eosinophils/100 WBC (Bld) 1.2 % Normal [facility] Comment on above: Performed By: #### Ulises MOHAN CMP, [facility]2, THYR #### [facility] ([id number]) [address] [place] [address] 03778 Erythrocyte distribution width (RBC) [Ratio] 13.4 % Normal 11.5-15.0 [facility] Comment on above: Performed By: #### Ulises MOHAN CMP, [facility]2, THYR #### [facility] ([id number]) [address] [place] [address] 69560 Hematocrit (Bld) [Volume fraction] 37.6 % Normal 35-47 [facility] Comment on above: Performed By: #### Ulises MOHAN CMP, [facility]2, THYR #### [facility] ([id number]) [address] [place] [address] 62660 Hemoglobin (Bld) [Mass/Vol] 13.2 g/dL Normal 11.7-15.5 [facility] Comment on above: Performed By: #### Ulises MOHAN CMP, 5643-2, THYR #### [facility] ([id number]) [address] [place] [address] 04274 Lymphocytes (Bld) [#/Vol] 1.5 10*3/uL Normal 1.0-3.5 [facility] Comment on above: Performed By: #### C VERONICA MOHAN, 5643-2, THYR #### [facility] ([id number]) [address] [place] [address] 96742 Lymphocytes/100 WBC (Bld) 24.2 % Normal [facility] Comment on above: Performed By: #### C VERONICA MOHAN, [facility]2, THYR #### [facility] ([id number]) [address] [place] [address] 13170 MCH (RBC) [Entitic mass] 33.9 pg Normal 27-34 [facility] Comment on above: Performed By: #### C VERONICA MOHAN, [facility]2, THYR #### [facility] ([id number]) [address] [place] [address] 27103 MCHC (RBC) [Mass/Vol] 35.2 g/dL Normal 32-36 [facility] Comment on above: Performed By: #### C VERONICA MOHAN, [facility]-2, THYR #### [facility] ([id number]) [address] [place] [address] 15634 MCV (RBC) [Entitic vol] 96 fL Normal 80-100 [facility] Comment on above: Performed By: #### Ulises MOHAN CMP, [facility]-2, THYR #### [facility] ([id number]) [address] [place] [address] 00062 Monocytes (Bld) [#/Vol] 0.5 10*3/uL Normal 0-0.9 [facility] Comment on above: Performed By: #### Ulises MOHAN CMP, 5643-2, THYR #### [facility] ([id number]) [address] [place] [address] 47780 Monocytes/100 WBC (Bld) 8.4 % Normal [facility] Comment on above: Performed By: #### C KIMBERLEE CMP, 5643-2, THYR #### [facility] ([id number]) [address] [place] [address] 06228 Neutrophils/100 WBC (Bld) 65.7 % Normal [facility] Comment on above: Performed By: #### Ulises MOHAN CMP, 5643-2, THYR #### [facility] ([id number]) [address] [place] [address] 60284 Platelet mean volume (Bld) [Entitic vol] 9.0 fL Normal 7-12 [facility] Comment on above: Performed By: #### Ulises MOHAN CMP, 5643-2, THYR #### [facility] ([id number]) [address] [place] [address] 87516 Platelets (Bld) [#/Vol] 216 10*3/uL Normal 150-450 [facility] Comment on above: Performed By: #### Ulises MOHAN CMP, 5643-2, THYR #### [facility] ([id number]) [address] [place] [address] 18093 RBC COUNT 3.90 X10E12/L Normal 3.80-5.20 [facility] Comment on above: Performed By: #### Ulises MOHAN CMP, 5643-2, THYR #### [facility] ([id number]) [address] [place] [address] 86198 WBC (Bld) [#/Vol] 6.1 10*3/uL Normal 4.0-11.0 [facility] Comment on above: Performed By: #### Ulises MOHAN CMP, 5643-2, THYR #### [facility] ([id number]) [address] [place] [address] 03023 COMPREHENSIVE METABOLIC PANE [facility] 01-18-2024 Albumin [Mass/Vol] 4.6 g/dL Normal 3.2-5.3 [facility] Comment on above: Performed By: #### C KIMBERLEE CMP, 5643-2, THYR #### [facility] ([id number]) [address] [place] [address] 11866 ALP [Catalytic activity/Vol] 53 U/L Normal 39-130 [facility] Comment on above: Performed By: #### C KIMBERLEE CMP, 5643-2, THYR #### [facility] ([id number]) [address] [place] [address] 13545 ALT [Catalytic activity/Vol] 79 U/L High 0-31 [facility] Comment on above: Performed By: #### C KIMBERLEE CMP, 5643-2, THYR #### [facility] ([id number]) [address] [place] [address] 61289 Anion gap [Moles/Vol] 8 mmol/L Normal 5-15 [facility] Comment on above: Performed By: #### C KIMBERLEE CMP, 5643-2, THYR #### [facility] ([id number]) [address] [place] [address] 48327 AST [Catalytic activity/Vol] 71 U/L High 0-41 [facility] Comment on above: Performed By: #### C KIMBERLEE CMP, 5643-2, THYR #### [facility] ([id number]) [address] [place] [address] 62972 Bilirubin [Mass/Vol] 1.1 mg/dL Normal 0.3-1.2 [facility] Comment on above: Performed By: #### C KIMBERLEE, CMP, 5643-2, THYR #### [facility] ([id number]) [address] [place] [address] 55953 Calcium [Mass/Vol] 8.9 mg/dL Normal 8.5-10.5 [facility] Comment on above: Performed By: #### C BCA, CMP, 5643-2, THYR #### [facility] ([id number]) [address] [place] [address] 05722 Chloride [Moles/Vol] 105 mmol/L Normal 98-109 [facility] Comment on above: Performed By: #### C VERONICA MOHAN, 5643-2, THYR #### [facility] ([id number]) [address] [place] [address] 83404 CO2 [Moles/Vol] 23 mmol/L Normal 22-32 [facility] Comment on above: Performed By: #### C VERONICA MOHAN, 5643-2, THYR #### [facility] ([id number]) [address] [place] [address] 76790 Creatinine [Mass/Vol] 0.81 mg/dL Normal 0.40-1.00 [facility] Comment on above: Result Comment: METH OD TRACEABLE TO IDMS STANDARD Performed By: #### C VERONICA MOHAN, 5643-2, THYR #### [facility] ([id number]) [address] [place] [address] 26036 GFR/1.73 sq M.predicted among non-blacks MDRD (S/P/Bld) [Vol rate/Area] 88 mL/min/{1.73_m2} Normal >59 [facility] Comment on above: Result Comment: Reported eGFR is based on the CKD-EPI 1 equation that does not use a race coefficient. Performed By: #### C VERONICA MOHAN, 5643-2, THYR #### [facility] ([id number]) [address] [place] [address] 27973 Glucose [Mass/Vol] 82 mg/dL Normal 65-99 [facility] Comment on above: Performed By: #### C KIMBERLEE, VERONICA, 5643-2, THYR #### [facility] ([id number]) [address] [place] [address] 40952 Potassium [Moles/Vol] 3.7 mmol/L Normal 3.5-5.0 [facility] Comment on above: Performed By: #### C VERONICA MOHAN, 5643-2, THYR #### [facility] ([id number]) [address] [place] [address] 02229 Protein [Mass/Vol] 7.8 g/dL Normal 6.0-8.0 [facility] Comment on above: Performed By: #### C VERONICA MOHAN, 5643-2, THYR #### [facility] ([id number]) [address] [place] [address] 57101 Sodium [Moles/Vol] 136 mmol/L Normal 134-146 [facility] Comment on above: Performed By: #### C VERONICA MOHAN, 5643-2, THYR #### [facility] ([id number]) [address] [place] [address] 62018 Urea nitrogen [Mass/Vol] 13 mg/dL Normal 5-23 [facility] Comment on above: Performed By: #### C VERONICA MOHAN, 5643-2, THYR #### [facility] ([id number]) [address] [place] [address] 15461 Cholesterol [Mass/volume] in Serum or PlasmaOrdered By: Olvin Rollins on 01-18-2024 Cholesterol [Mass/Vol] 165 mg/dL 140-200 [facility] Comment on above: Chol less than 200 m g/dl low riskChol 201-239 mg/dl borderline riskChol 240 mg/dl and greater high risk Cholesterol in LDL Calc [Mas s/Vol]Ordered By: Olvin Rollins on 01-18-2024 Cholesterol in LDL [Mass/Vol] 100 mg/dL 0-100 [facility] Comment on above: LDL ATP III CLASSIFI CATIONLDL less than 100 mg/dL OptimalLDL 100-129 mg/dL Near or above optimalLDL 130-159 mg/dL Borderline highLDL 160-189 mg/dL [facility] mg/dL Very high Cholesterol in VLDL Calc [Ma ss/Vol]Ordered By: Olvin Rollins on 01-18-2024 Cholesterol in VLDL [Mass/Vol] 15 mg/dL [facility] DRUG SCREEN, URINEon 024 AMPHETAMINE/METHAMP Negative Normal NEG [facility] Comment on above: Result Comment: AMPH /METH screening cut off = 1000 ng/mL Performed By: #### D ESTRADA #### [facility] ([id number]) [address] [place] [address] 67408 BARBITURATES Negative Normal NEG [facility] Comment on above: Result Comment: Augustina iturates screening cut off value = 200 ng/mL Performed By: #### D ESTRADA #### [facility] ([id number]) [address] [place] [address] 94916 BENZODIAZEPINES Positive Abnormal NEG [facility] Comment on above: Result Comment: Conf irmation available upon request. Benzodiazepines screening cut off value = 200 ng/mL Performed By: #### D ESTRADA #### [facility] ([id number]) [address] [place] [address] 97698 CANNABINOIDS Positive Abnormal NEG [facility] Comment on above: Result Comment: Conf irmation available upon request. Cannabinoids/THC screening cut off value = 50 ng/mL Performed By: #### D ESTRADA #### [facility] ([id number]) [address] [place] [address] 05604 COCAINE METABOLITE Positive Abnormal NEG [facility] Comment on above: Result Comment: Conf irmation available upon request. Cocaine screening cut off value = 300 ng/mL Performed By: #### D ESTRADA #### [facility] ([id number]) [address] [place] [address] 23271 ECSTASY Negative Normal NEG [facility] Comment on above: Result Comment: Ecst asy screening cut off value = 500 ng/mL This report is intended for use in clinical monitoring or management of patients. Performed By: #### D ESTRADA #### [facility] ([id number]) [address] [place] [address] 19933 METHADONE Negative Normal NEG [facility] Comment on above: Result Comment: Meth adone screening cut off value = 300 ng/mL. Performed By: #### D ESTRADA #### [facility] ([id number]) [address] [place] [address] 62998 OPIATES Negative Normal NEG [facility] Comment on above: Result Comment: Opia caryn screening cut off value = 300 ng/mL NOTE: This test is used for the detection of codeine, hydrocodone (>1000 ng/mL), morphine and hydromorphone (>900 ng/mL) in urine. Performed By: #### D ESTRADA #### [facility] ([id number]) [address] [place] [address] 49485 OXYCODONE Negative Normal NEG [facility] Comment on above: Result Comment: Oxyc odone screening cut off value = 300 ng/mL NOTE: This test is used for the detection of oxycodone and oxymorphone in urine. Performed By: #### D ESTRADA #### [facility] ([id number]) [address] [place] [address] 09474 PHENCYCLIDINE Negative Normal NEG [facility] Comment on above: Result Comment: Phen cyclidine screening cut off value = 25 ng/mL Performed By: #### D ESTRADA #### [facility] ([id number]) [address] [place] [address] 82674 ETHANOLon 01-18-2024 Ethanol [Mass/Vol] mg/dL Normal 0.00-0.08 [facility] Comment on above: Result Comment: This report is intended for use in clinical monitoring or management of patients. Performed By: #### C BCA, CMP, 5643-2, THYR #### [facility] ([id number]) [address] [place] [address] 38997 Serum or plasma high density lipoprotein (HDL) cholesterol measurementOrdered By: Olvin Rollins on 01-18-2024 Cholesterol in HDL [Mass/Vol] 49 mg/dL 23-92 [facility] Comment on above: HDL CHOL ATP-III CLA SSIFICATION Cardiovascular RiskHDL > or equal to 60 mg/dL LOWHDL < 40 mg/dL HIGH Serum or plasma total choles terol/high density lipoprotein (HDL) cholesterol mass ratOrdered By: Olvin Rollins on 01-18-2024 Cholesterol.total/Choles terol in HDL [Mass ratio] 3.4 {ratio} <5.0 [facility] THYROID PROFILEon 01-18-2024 Free T4 [Mass/Vol] 1.02 ng/dL Normal 0.61-1.60 [facility] Comment on above: Performed By: #### C VERONICA MOHAN, 5643-2, THYR #### [facility] ([id number]) [address] [place] [address] 00121 TSH 7.73 uIU/mL High 0.49-4.67 [facility] Comment on above: Performed By: #### C KIMBERLEE [facility], 5643-2, THYR #### [facility] ([id number]) [address] [place] [address] 34155 Thyrotropin [Units/volume] i n Serum or PlasmaOrdered By: Olvin Rollins on 01-18-2024 TSH Qn 5.89 m[IU]/L 0.45-5.33 [facility] Thyroxine (T4) free [Mass/vo lume] in Serum or PlasmaOrdered By: Olvin Rollins on 01-18-2024 Free T4 [Mass/Vol] 0.96 ng/dL 0.61-1.12 [facility] Triglyceride [Mass/volume] i n Serum or PlasmaOrdered By: Olvni Rollins on 01-18-2024 Triglyceride [Mass/Vol] 78 mg/dL 0-149 F [facility] Comment on above: TRIG ATP III CLASSIF ICATIONTRIG less than 150 mg/dL NormalTRIG 150-199 mg/dL Borderline highTRIG 200-500 mg/dL High TRIG greater than 500 mg/dL Very highStandard traceable to the Center for Disease Conrtrol and Prevention (CDC) test method. URN MACROSCOPIC NURon 2023 BILIRUBIN LESLYE Small Abnormal NEG [facility] Comment on above: Performed By: #### N UM #### [facility] ([id number]) [address] [place] [address] 67566 BLOOD/HGB LESLYE Trace Abnormal NEG [facility] Comment on above: Performed By: #### N UM #### [facility] ([id number]) [address] [place] [address] 83766 GLUCOSE LESLYE Negative Normal NEG [facility] Comment on above: Performed By: #### N UM #### [facility] ([id number]) [address] [place] [address] 67992 KETONES LESLYE 40 mg/dL Abnormal NEG [facility] Comment on above: Performed By: #### N UM #### [facility] ([id number]) [address] [place] [address] 04698 LEUKOCYTE ESTERASE LESLYE Small Abnormal NEG Pr [facility] Comment on above: Performed By: #### N UM #### [facility] ([id number]) [address] [place] [address] [place] [address] NITRITE LESLYE Negative Normal NEG [facility] Comment on above: Performed By: #### N UM #### [facility] ([id number]) [address] [place] [address] 64853 PH LESLYE 5.5 Normal 5.0-8.5 [facility] Comment on above: Performed By: #### N UM #### [facility] ([id number]) [address] [place] [address] 45576 PROTEIN LESLYE Negative Normal NEG [facility] Comment on above: Performed By: #### N UM #### [facility] ([id number]) [address] [place] [address] SPECIFIC GRAVITY LESLYE >=1.030 Normal 1.003-1.035 [facility] Comment on above: Performed By: #### N UM #### [facility] ([id number]) [address] [place] [address] UROBILINOGEN LESLYE 0.2 eu/dL Normal <1.1 [facility] Comment on above: Performed By: #### N UM #### [facility] ([id number]) [address] [place] [address] Vitamin D+Metabolites [Mass/ volume] in Serum or PlasmaOrdered By: Olvin Rollins on 01-18-2024 Vitamin D+Metabolites [Mass/Vol] 37.9 ng/mL 30-100 [facility] Comment on above: VITAMIN D STATUS 25( [place])VITAMIN D RANGE (ng/mL) Deficient <20 Insufficient 20 to <30Sufficient 30 to 100Reference: Roque MF,Jhony NC, Janina LAYTON, et al. Evaluation,treatment, and prevention of vitamin D deficiency; an Endocrine Society clinical practice guideline. JCEM. 2010; 96(7):1911-30. CBC AND AUTO DIFFon 12-02-19 24 ABSOLUTE BASOPHIL 0.1 X10E9/L Normal 0.0-0.2 [facility] Comment on above: Performed By: #### C BCA, 52955-1, CMP, 61276-7, 1988-5, FEPR, TSHR, 2284-8, 2132-9, 72762-7, 2243-4 #### [facility] ([id number]) [address], [address] [place] [address] ABSOLUTE NEUTROPHIL 5.9 X10E9/L Normal 1.5-6.6 [facility] Comment on above: Performed By: #### C BCA, 85901-5, CMP, , 1988-02, FEPR, TSHR, 2284-05, 2132-06, 14538-0, 2242-4 #### [facility] ([id number]) [address], [address] [place] [address] Basophils/100 WBC (Bld) 0.7 % Normal [facility] Comment on above: Performed By: #### C BCA, 65478-9, CMP, , 1988-02, FEPR, TSHR, 2284-05, 2132-06, 04531-8, 2242-4 #### [facility] ([id number]) [address], [address] [place] [address] Eosinophils (Bld) [#/Vol] 0.0 10*3/uL Normal 0.0-0.4 [facility] Comment on above: Performed By: #### C BCA, 14889-4, CMP, , 1988-02, FEPR, TSHR, 2284-05, 2132-06, 69703-3, 2242- #### [facility] ([id number]) [address], [address] [place] [address] Eosinophils/100 WBC (Bld) 0.6 % Normal [facility] Comment on above: Performed By: #### C BCA, 36143-1, CMP, , 1988-02, FEPR, TSHR, 2284-05, 2132-06, 54519-0, 2242- #### [facility] ([id number]) [address], [address] [place] [address] Erythrocyte distribution width (RBC) [Ratio] 12.8 % Normal 11.5-15.0 [facility] Comment on above: Performed By: #### C BCA, 46775-0, CMP, , 1988-02, FEPR, TSHR, 2284-05, 2132-06, 34536-2, 2243-4 #### [facility] ([id number]) [address], [address] [place] [address] Hematocrit (Bld) [Volume fraction] 39.7 % Normal 35-47 [facility] Comment on above: Performed By: #### C BCA, 63630-0, CMP, , 1988-02, FEPR, TSHR, 2284-05, 2132-06, 89956-0, 224-4 #### [facility] ([id number]) [address], [address] [place] [address] Hemoglobin (Bld) [Mass/Vol] 13.5 g/dL Normal 11.7-15.5 [facility] Comment on above: Performed By: #### C KIMBERLEE, 98927-2, CMP, , 1988-02, FEPR, TSHR, 2284-05, 2132-06, 58135-3, 2242- #### [facility] ([id number]) [address], [address] [place] [address] Lymphocytes (Bld) [#/Vol] 0.9 10*3/uL Low 1.0-3.5 [facility] Comment on above: Performed By: #### C BCA, 41741-6, CMP, , 1988-02, FEPR, TSHR, 2284-05, 2132-06, 73372-8, 224- #### [facility] ([id number]) [address], [address] [place] [address] Lymphocytes/100 WBC (Bld) 12.8 % Normal [facility] Comment on above: Performed By: #### C BCA, 27131-7, CMP, , 1988-02, FEPR, TSHR, 2284-05, 2132-06, 88580-3, 224- #### [facility] ([id number]) [address], [address] [place] [address] MCH (RBC) [Entitic mass] 32.6 pg Normal 27-34 [facility] Comment on above: Performed By: #### C KIMBERLEE, 86805-9, CMP, , 1988-02, FEPR, TSHR, 2283-8, 9, 68842-9, 2242-4 #### [facility] ([id number]) [address], [address] [place] [address] MCHC (RBC) [Mass/Vol] 34.0 g/dL Normal 32-36 [facility] Comment on above: Performed By: #### C KIMBERLEE, 16046-3, CMP, , 1988-02, FEPR, TSHR, 2284-05, 2132-06, 30278-7, 2242- #### [facility] ([id number]) [address], [address] [place] [address] MCV (RBC) [Entitic vol] 96 fL Normal 80-100 P [facility] Comment on above: Performed By: #### C KIMBERLEE, 95457-3, CMP, , 1988-02, FEPR, TSHR, 2284-05, 2132-06, 42280-4, 2242- #### [facility] ([id number]) [address], [address] [place] [address] Monocytes (Bld) [#/Vol] 0.5 10*3/uL Normal 0-0.9 [facility] Comment on above: Performed By: #### C BCA, 15706-6, CMP, , 1988-02, FEPR, TSHR, 2284-05, 2132-06, 33956-4, 224-4 #### [facility] ([id number]) [address], [address] [place] [address] Monocytes/100 WBC (Bld) 6.2 % Normal P [facility] Comment on above: Performed By: #### C BCA, 72611-2, CMP, 57690-7, 1988-02, FEPR, TSHR, 2283-8, 2132-06, 71710-5, 224-4 #### [facility] ([id number]) [address], [address] [place] [address] Neutrophils/100 WBC (Bld) 79.7 % Normal [facility] Comment on above: Performed By: #### C BCA, 03564-3, CMP, 36152-5, 1988-02, FEPR, TSHR, 2283-, 2132-06, 94283-6, 224- #### [facility] ([id number]) [address], [address] [place] [address] Platelet mean volume (Bld) [Entitic vol] 9.6 fL Normal 7-12 [facility] Comment on above: Performed By: #### C BCA, 81911-1, CMP, 85578-0, 1988-02, FEPR, TSHR, 2284-05, 2132-06, 67209-1, 2242- #### [facility] ([id number]) [address], [address] [place] [address] Platelets (Bld) [#/Vol] 249 10*3/uL Normal 150-450 [facility] Comment on above: Performed By: #### C BCA, 02815-8, CMP, 77756-3, 1988-02, FEPR, TSHR, 2284-05, 2132-06, 50136-9, 224- #### [facility] ([id number]) [address], [address] [place] [address] RBC COUNT 4.13 X10E12/L Normal 3.80-5.20 [facility] Comment on above: Performed By: #### C BCA, 21897-2, CMP, , 1988-02, FEPR, TSHR, 2284-8, 2131-9, 40533-9, 2243-4 #### [facility] ([id number]) [address], [address] [place] [address] WBC (Bld) [#/Vol] 7.3 10*3/uL Normal 4.0-11.0 [facility] Comment on above: Performed By: #### C BCA, 75823-7, CMP, , 1988-02, FEPR, TSHR, 2283-8, 2131-9, 46402-8, 2243-4 #### [facility] ([id number]) [address], [address] [place] [address] COMPREHENSIVE METABOLIC PANE Jose 12-02-2023 Albumin [Mass/Vol] 4.4 g/dL Normal 3.2-5.3 [facility] Comment on above: Performed By: #### C BCA, 04309-3, CMP, , 1988-02, FEPR, TSHR, 2283-, 2131-9, 20345-6, 2243-4 #### [facility] ([id number]) [address], [address] [place] [address] ALP [Catalytic activity/Vol] 63 U/L Normal 39-130 [facility] Comment on above: Performed By: #### C BCA, 12063-2, CMP, , 1988-02, FEPR, TSHR, 2283-, 2131-9, 22540-9, 2243-4 #### [facility] ([id number]) [address], [address] [place] [address] ALT [Catalytic activity/Vol] 74 U/L High 0-31 [facility] Comment on above: Performed By: #### C BCA, 84454-9, CMP, 57622-8, 1988-02, FEPR, TSHR, 2283-8, 2131-9, 62904-4, 2243-4 #### [facility] ([id number]) [address], [address] [place] [address] Anion gap [Moles/Vol] 16 mmol/L High 5-15 [facility] Comment on above: Performed By: #### C BCA, 06112-0, CMP, 26413-6, 1988-02, FEPR, TSHR, 2283-8, 9, 49050-7, 2243-4 #### [facility] ([id number]) [address], [address] [place] [address] AST [Catalytic activity/Vol] 87 U/L High 0-41 [facility] Comment on above: Performed By: #### C BCA, 49907-3, CMP, 72298-1, 1988-02, FEPR, TSHR, 2283-8, 2132-06, 01688-5, 2242-4 #### [facility] ([id number]) [address], [address] [place] [address] Bilirubin [Mass/Vol] 0.4 mg/dL Normal 0.3-1.2 [facility] Comment on above: Performed By: #### C BCA, 76394-3, CMP, , 1988-02, FEPR, TSHR, 2283-, 2132-06, 33482-1, 2242-4 #### [facility] ([id number]) [address], [address] [place] [address] Calcium [Mass/Vol] 9.4 mg/dL Normal 8.5-10.5 [facility] Comment on above: Performed By: #### C BCA, 66509-1, CMP, , 1988-02, FEPR, TSHR, 2284-05, 2132-06, 39978-5, 224-4 #### [facility] ([id number]) [address], [address] [place] [address] Chloride [Moles/Vol] 102 mmol/L Normal 98-109 [facility] Comment on above: Performed By: #### C BCA, 06949-2, CMP, 33907-5, 1988-02, FEPR, TSHR, 2284-05, 2132-06, 32561-0, 224-4 #### [facility] ([id number]) [address], [address] [place] [address] CO2 [Moles/Vol] 25 mmol/L Normal 22-32 [facility] Comment on above: Performed By: #### C BCA, 42964-3, CMP, 97663-8, 1988-02, FEPR, TSHR, 2284-05, 2132-06, 24263-7, 2242-4 #### [facility] ([id number]) [address], [address] [place] [address] Creatinine [Mass/Vol] 0.89 mg/dL Normal 0.40-1.00 [facility] Comment on above: Result Comment: METH OD TRACEABLE TO IDMS STANDARD Performed By: #### C BCA, 14826-1, CMP, , 1988-02, FEPR, TSHR, 2284-05, 2132-06, 31355-6, 2242-4 #### [facility] ([id number]) [address], [address] [place] [address] GFR/1.73 sq M.predicted among non-blacks MDRD (S/P/Bld) [Vol rate/Area] 79 mL/min/{1.73_m2} Normal >59 [facility] Comment on above: Result Comment: Reported eGFR is based on the CKD-EPI 2020 equation that does not use a race coefficient. Performed By: #### C BCA, 15496-8, CMP, 81646-9, 1988-02, FEPR, TSHR, 2284-05, 9, 28959-7, 2242-4 #### [facility] ([id number]) [address], [address] [place] [address] Glucose [Mass/Vol] 68 mg/dL Normal 65-99 [facility] Comment on above: Performed By: #### C BCA, 61662-8, CMP, 70344-4, 1988-02, FEPR, TSHR, 2284-05, 2132-06, 90595-8, 2243-4 #### [facility] ([id number]) [address], [address] [place] [address] Potassium [Moles/Vol] 4.2 mmol/L Normal 3.5-5.0 [facility] Comment on above: Performed By: #### C BCA, 49297-2, CMP, 95347-1, 1988-02, FEPR, TSHR, 2284-05, 2132-06, 92535-2, 2243-4 #### [facility] ([id number]) [address], [address] [place] [address] Protein [Mass/Vol] 7.6 g/dL Normal 6.0-8.0 [facility] Comment on above: Performed By: #### C BCA, 72468-9, CMP, 49270-7, 1988-02, FEPR, TSHR, 2284-05, 2132-06, 76584-3, 2243-4 #### [facility] ([id number]) [address], [address] [place] [address] Sodium [Moles/Vol] 143 mmol/L Normal 134-146 [facility] Comment on above: Performed By: #### C BCA, 80811-2, CMP, 92965-6, 1988-02, FEPR, TSHR, 2284-05, 2132-06, 45564-3, 2243-4 #### [facility] ([id number]) [address], [address] [place] [address] Urea nitrogen [Mass/Vol] 7 mg/dL Normal 5-23 [facility] Comment on above: Performed By: #### C BCA, 12512-2, CMP, 47582-2, 1988-02, FEPR, TSHR, 2284-05, 2132-06, 81022-3, 2243-01 #### [facility] ([id number]) [address] [place] [address], [address] [place] [address] CRP [Mass/Vol]on 12-02-2023 C REACTIVE PROTEIN 0.8 mg/dL High 0.000-0.744 [facility] Comment on above: Performed By: #### C BCA, 91356-1, CMP, , 1988-02, FEPR, TSHR, 2284-05, 2132-06, , 2243-01 #### [facility] ([id number]) [address] [place] [address], [address] [place] [address] E2 [Mass/Vol]on 12-02-2023 ESTRADIOL 16.6 pg/mL Normal [facility] Comment on above: Result Comment: [...] using this assay. Performed By: #### C BCA, 19524-8, CMP, , 1988-02, FEPR, TSHR, 2284-05, 2132-06, 89914-7, 2243-4 #### [facility] ([id number]) [address], [address] [place] [address] ESR Photometric method (Bld) [Velocity]on 12-02-2023 ESR, ERYTHROCYTE SEDIMENTATION RATE 29 mm/h Normal 0-30 [facility] Comment on above: Performed By: #### C BCA, 74264-7, CMP, 01838-5, 1988-02, FEPR, TSHR, 2284-05, 2132-06, 07653-9, 2242-4 #### [facility] ([id number]) [address], [address] [place] [address] Folate [Mass/Vol]on 12-02-19 24 FOLIC ACID >25.0 Normal >5.8 [facility] Comment on above: Result Comment: NEW REFERENCE RANGE Performed By: #### C BCA, 63643-5, CMP, 22292-5, 1988-02, FEPR, TSHR, 2284-05, 2132-06, 50518-3, 2242- #### [facility] ([id number]) [address], [address] [place] [address] HGB A1C (GLYCO-HGB)on 2023 Glucose [Mass/Vol] 108 mg/dL Normal [facility] Comment on above: Performed By: #### C BCA, 11118-3, CMP, 03860-1, 1988-02, FEPR, TSHR, 2284-05, 2132-06, 11080-1, 2242- #### [facility] ([id number]) [address], [address] [place] [address] HbA1c (Bld) [Mass fraction] 5.4 % Normal 4.4-5.6 [facility] Comment on above: Result Comment: NOTE ADA Guidelines Result HgbA1c Normal : less than 5.7 % Prediabetes : 5.7 % to 6.4 % Diabetes : > 6.4 % Use with caution in patients with abnormal hemoglobin variants as the half-life of red blood cells and in vivo glycation rates are affected. Performed By: #### C BCA, 90160-7, CMP, 23984-3, 1988-02, FEPR, TSHR, 2284-8, 2132-9, 39962-8, 2243-4 #### [facility] ([id number]) [address], [address] [place] [address] IRON PROFILEon 12-02-2023 Iron [Mass/Vol] 53 ug/dL Normal 50-170 [facility] Comment on above: Performed By: #### C BCA, 86211-2, CMP, 85718-2, 1988-02, FEPR, TSHR, 2283-8, 2131-9, 09619-4, 2243-4 #### [facility] ([id number]) [address], [address] [place] [address] IRON BINDING 399 ug/dL Normal 250-425 [facility] Comment on above: Performed By: #### C BCA, 09605-1, CMP, 17943-7, 1988-02, FEPR, TSHR, 2283-8, 2131-9, 18814-4, 2243-4 #### [facility] ([id number]) [address], [address] [place] [address] IRON SATURATION 13 % SATURATION Low 15-50 [facility] Comment on above: Performed By: #### C BCA, 43639-0, CMP, 36927-6, 1988-02, FEPR, TSHR, 2283-8, 2131-9, 28630-4, 2243-4 #### [facility] ([id number]) [address], [address] [place] [address] Lipid 1996 panelon Cholesterol [Mass/Vol] 174 mg/dL Normal 150-200 [facility] Comment on above: Performed By: #### C BCA, 44369-4, CMP, 39217-8, 1988-02, FEPR, TSHR, 2284-05, 2132-06, 29104-9, 224-4 #### [facility] ([id number]) [address], [address] [place] [address] Cholesterol in HDL [Mass/Vol] 55 mg/dL Normal >39 [facility] Comment on above: Result Comment: HDL <40 mg/dL - High Risk HDL > or = 40mg/dL- Desirable HDL >60 mg/dL - Negative Risk Performed By: #### Ulises MOHAN, 13293-8, CMP, , 1988-02, FEPR, TSHR, 2284-05, 2132-06, 71852-0, 2242-4 #### [facility] ([id number]) [address], [address] [place] [address] Cholesterol in LDL [Mass/Vol] 106 mg/dL Normal <130 [facility] Comment on above: Result Comment: LDL <100 mg/dL - Desirable LDL >160 mg/dL - High Risk Performed By: #### Ulises BCA, 28050-3, CMP, , 1988-02, FEPR, TSHR, 2284-05, 2132-06, 84803-1, 224-4 #### [facility] ([id number]) [address], [address] [place] [address] Cholesterol in VLDL [Mass/Vol] 13 mg/dL Normal 0-30 [facility] Comment on above: Performed By: ###Chayito Montgomery BCA, 83562-7, CMP, 06275-9, 1988-02, FEPR, TSHR, 2284-05, 2132-06, 94260-4, 2243-4 #### [facility] ([id number]) [address], [address] [place] [address] CHOLESTEROL:HDL 3.2 Normal 1.0-5.0 [facility] Comment on above: Performed By: #### C BCA, 67149-9, CMP, 13912-1, 1988-02, FEPR, TSHR, 2284-05, 2132-06, 60701-9, 2243-4 #### [facility] ([id number]) [address], [address] [place] [address] Triglyceride [Mass/Vol] 64 mg/dL Normal 27-150 [facility] Comment on above: Performed By: #### C BCA, 52022-2, CMP, , 1988-02, FEPR, TSHR, 2284-05, 2132-06, 12694-0, 224-4 #### [facility] ([id number]) [address], [address] [place] [address] TSH WITH REFLEXon 12-02-2023 TSH 0.95 uIU/mL Normal 0.49-4.67 [facility] Comment on above: Performed By: #### C BCA, 13162-9, CMP, , 1988-02, FEPR, TSHR, 2284-05, 2132-06, 29968-1, 224-4 #### [facility] ([id number]) [address], [address] [place] [address] VITAMIN B12on 12-02-2023 Cobalamin (Vitamin B12) [Mass/Vol] 1413 pg/mL High 180-914 [facility] Comment on above: Performed By: #### C BCA, 91910-6, CMP, 45669-2, 1988-02, FEPR, TSHR, 2284-05, 2132-06, 35533-4, 2243-4 #### [facility] ([id number]) [address] [place] [address], [address] [place] [address] Vitamin D+Metabolites [Mass/ Vol]on 12-02-2023 VITAMIN D 25 HYD TOT 40.4 ng/mL Normal 30-100 [facility] Comment on above: Result Comment: Vitamin D status 25 [place] Vitamin D Deficiency <20 ng/mL Insufficiency 20-29 ng/mL Sufficiency 30-100 ng/mL Toxicity >100 ng/mL NOTE: A pediatric reference range has not been established by the steam plant operator of this kit. The [place] [employer] recommends a Vitamin D level of = or >20ng/mL in infants and children. Performed By: #### C BCA, 37407-2, CMP, 34579-0, 1987-, FEPR, TSHR, 2284-8, 2131-9, 01815-2, 2243-4 #### [facility] ([id number]) [address] [place] [address], [address] [place] [address] Cholesterol [Mass/volume] in Serum or PlasmaOrdered By: Miah Abreu on 10-11-2023 Cholesterol [Mass/Vol] 224 mg/dL 140-200 [facility] Comment on above: Chol less than 200 m g/dl low riskChol 201-239 mg/dl borderline riskChol 240 mg/dl and greater high risk Cholesterol in LDL Calc [Mas s/Vol]Ordered By: Miah Abreu on 10-11-2023 Cholesterol in LDL [Mass/Vol] TNP [facility] Comment on above: Test not performed Cholesterol in VLDL Calc [Ma ss/Vol]Ordered By: Miah Abreu on 10-11-2023 Cholesterol in VLDL [Mass/Vol] 17 mg/dL [facility] Serum or plasma high density lipoprotein (HDL) cholesterol measurementOrdered By: Miah Abreu on 10-11-2023 Cholesterol in HDL [Mass/Vol] 57 mg/dL 23-92 [facility] Comment on above: HDL CHOL ATP-III CLA SSIFICATION Cardiovascular RiskHDL > or equal to 60 mg/dL LOWHDL < 40 mg/dL HIGH Serum or plasma total choles terol/high density lipoprotein (HDL) cholesterol mass ratOrdered By: Miah Abreu on 10-11-2023 Cholesterol.total/Choles terol in HDL [Mass ratio] TNP [facility] Comment on above: Test not performed Thyrotropin [Units/volume] i n Serum or PlasmaOrdered By: Miah Abreu on 10-11-2023 TSH Qn 1.09 m[IU]/L 0.45-5.33 [facility] Triglyceride [Mass/volume] i n Serum or PlasmaOrdered By: Miah Abreu on 10-11-2023 Triglyceride [Mass/Vol] 89 mg/dL 0-149 F [facility] Comment on above: TRIG ATP III CLASSIF ICATIONTRIG less than 150 mg/dL NormalTRIG 150-199 mg/dL Borderline highTRIG 200-500 mg/dL High TRIG greater than 500 mg/dL Very highStandard traceable to the Center for Disease Conrtrol and Prevention (CDC) test method. Vitamin D+Metabolites [Mass/ volume] in Serum or PlasmaOrdered By: Miah Abreu on 10-11-2023 Vitamin D+Metabolites [Mass/Vol] 31.6 ng/mL 30-100 [facility] Comment on above: VITAMIN D STATUS 25( [place])VITAMIN D RANGE (ng/mL) Deficient <20 Insufficient 20 to <30Sufficient 30 to 100Reference: Roque MF,Jhony NC, Janina LAYTON, et al. Evaluation,treatment, and prevention of vitamin D deficiency; an Endocrine Society clinical practice guideline. JCEM. 2010; 96(7):1911-30. Amphetamine Screen Ql (U)Ord ered By: Miah Abreu on 10-10-2023 Amphetamines Ql (U) Negative Negative [facility] Automated erythrocytes count in urine sediment (number/area)Ordered By: Miah Abreu on 10-10-2023 RBC Auto (Urine sed) [#/Area] 0-1 [HPF] 0-4 [facility] Automated leukocytes count i n urine sediment (number/area)Ordered By: Miah Abreu on 10-10-2023 WBC Auto (Urine sed) [#/Area] Innumerable [HPF] 0-4 [facility] Barbiturates [Presence] in U rine by Screen methodOrdered By: Miah Abreu on 10-10-2023 Barbiturates Screen Ql (U) Negative Negative [facility] Benzodiazepines Screen Ql (U )Ordered By: Miah Abreu on 10-10-2023 Benzodiazepines Ql (U) Positive Negative [facility] Benzoylecgonine [Presence] i n Urine by Screen methodOrdered By: Miah Abreu on 10-10-2023 Benzoylecgonine Screen Ql (U) Positive Negative [facility] Bilirubin Test strip Ql (U)O rdered By: Miah Abreu on 10-10-2023 Bilirubin Ql (U) Negative Negative [facility] Cannabinoids [Presence] in U rine by Screen methodOrdered By: Miah Abreu on 10-10-2023 Cannabinoids Screen Ql (U) Positive Negative [facility] Comment on above: These are unconfirme d results and should not be used for legal purposes. Drug Cut-Off Concentration: AMPH 1000 ng/mL AUGUSTINA 200 ng/mL MARLYS 200 ng/mL COCM 300 ng/mL OP 300 ng/mL PCP 25 ng/mL THC 20 ng/mL Color Auto (U)Ordered By: Haroldo Abreu on 10-10-2023 Color (U) Yellow Yellow [facility] Ketones Auto test strip (U) [Mass/Vol]Ordered By: Miah Abreu on 10-10-2023 Ketones (U) [Mass/Vol] Negative Negative [facility] Laboratory - UrinalysisOrder ed By: Miah Abreu on 10-10-2023 Hyaline casts LM Ql (Urine sed) None seen [LPF] 0-8 [facility] Nitrite Test strip Ql (U)Ord ered By: Miah Abreu on 10-10-2023 Nitrite Ql (U) Negative Negative [facility] Opiates [Presence] in Urine by Screen methodOrdered By: Miah Abreu on 10-10-2023 Opiates Screen Ql (U) Negative Negative [facility] Phencyclidine Screen Ql (U)O rdered By: Miah Abreu on 10-10-2023 Phencyclidine Ql (U) Negative Negative [facility] Protein Auto test strip (U) [Mass/Vol]Ordered By: Miah Abreu on 10-10-2023 Protein (U) [Mass/Vol] Negative Negative [facility] Specific gravity Auto test s trip (U) [Rel density]Ordered By: Miah Abreu on 10-10-2023 Specific gravity (U) [Rel density] 1.012 1.001-1.030 [facility] Squamous epithelial cells de tection in urine sediment by light microscopyOrdered By: Miah Abreu on 10-10-2023 Epithelial cells.squamous LM Ql (Urine sed) 0-1 [HPF] 0-2 [facility] Urine bacteria detection by automated methodOrdered By: Miah Abreu on 10-10-2023 Bacteria Auto Ql (U) None seen None Seen [facility] Urine clarity by refractomet ry automatedOrdered By: Miah Abreu on 10-10-2023 Clarity Refractometry automated (U) Cloudy Clear [facility] Urine culture routineOrdered By: Miah Abreu on 10-10-2023 Bacteria identified Cx Nom (U) [facility] Urine glucose measurement by automated test strip (mass/volume)Ordered By: Miah Abreu on 10-10-2023 Glucose Auto test strip (U) [Mass/Vol] Normal mg/dL Normal [facility] Urine hemoglobin detection b y automated test stripOrdered By: Miah Abreu on 10-10-2023 Hemoglobin Auto test strip Ql (U) Negative Negative [facility] Urine leukocyte esterase det ection by automated test stripOrdered By: Miah Abreu on 10-10-2023 Leukocyte esterase Auto test strip Ql (U) 4+ Negative [facility] Urobilinogen Auto test strip (U) [Mass/Vol]Ordered By: Miah Abreu on 10-10-2023 Urobilinogen (U) [Mass/Vol] Normal mg/dL Normal [facility] pH Auto test strip (U)Ordere d By: Miah Abreu on 10-10-2023 pH (U) 5.5 [pH] 5.0-9.0 [facility] Alanine aminotransferase [En zymatic activity/volume] in Serum or PlasmaOrdered By: Adele Hunter on 08-25-2023 ALT [Catalytic activity/Vol] 97 U/L 7-52 [facility] Albumin [Mass/volume] in Ser um or Plasma by Bromocresol green (BCG) dye binding methoOrdered By: Adele Hunter on 08-25-2023 Albumin BCG dye [Mass/Vol] 3.6 g/dL 3.5-5.7 [facility] Alkaline phosphatase [Enzyma tic activity/volume] in Serum or PlasmaOrdered By: Adele Hunter on 08-25-2023 ALP [Catalytic activity/Vol] 58 U/L 34-104 [facility] Aspartate aminotransferase [ Enzymatic activity/volume] in Serum or PlasmaOrdered By: Adele Hunter on 08-25-2023 AST [Catalytic activity/Vol] 94 U/L 13-39 [facility] Bilirubin.direct [Mass/volum e] in Serum or PlasmaOrdered By: Adele Schmitt on 08-25-2023 Bilirubin.direct [Mass/Vol] 0.00 mg/dL 0.03-0.18 [facility] Comment on above: If the DBIL is less than 0.1, IBIL is not able to becalculated. Bilirubin.total [Mass/volume ] in Serum or PlasmaOrdered By: Adele Hunter on 08-25-2023 Bilirubin [Mass/Vol] 0.3 mg/dL 0.3-1.0 [facility] Diagnostic impression [Inter pretation] in Specimen NarrativeOrdered By: Adele Hunter on 08-25-2023 Diagnostic impression Molgen Nima (Unsp spec) [Interp] See comment . [facility] Comment on above: Positive HCV antibod y screen with the presence of HCV RNAis consistent with active infection.Performed at: [address] [id number] Director: Rick Acevedo PhD, Phone: [phone] at: [facility] [place], [place] [id number] Director: Navarro Padilla MD, Phone: [phone] Globulin Calc (S) [Mass/Vol] Ordered By: Adele Hunter on 08-25-2023 Globulin (S) [Mass/Vol] 2.5 g/dL [facility] Hepatitis B virus surface Ag [Presence] in Serum or Plasma by ImmunoassayOrdered By: Adele Hunter on 08-25-2023 HBV surface Ag IA Ql Negative Negative [facility] Hepatitis C virus IgG Ab [Pr esence] in Serum or Plasma by ImmunoassayOrdered By: Adele Hunter on 08-25-2023 HCV IgG IA Ql Reactive Non Reactive [facility] Hepatitis C virus RNA [log u nits/volume] (viral load) in Serum or Plasma by TISHA withOrdered By: Adele Hunter on 08-25-2023 HCV RNA TISHA+probe [Log units/Vol] [id number] [IU]/mL . [facility] HCV RNA TISHA+probe [Log units/Vol] 6.933 . [facility] Comment on above: Result Units: log10 IU/mL No Panel InformationOrdered By: Adele uHnter on 08-25-2023 Hepatitis A IgM Antibody Negative Negative [facility] Hepatitis B Core IgM Antibody Negative Negative [facility] Hepatitis C RNA Qnt (PCR) Test Info See comment . [facility] Comment on above: The quantitative ran ge of this assay is 15 IU/mL to 100million IU/mL. Protein [Mass/volume] in Ser um or PlasmaOrdered By: Adele Hunter on 08-25-2023 Protein [Mass/Vol] 6.1 g/dL 6.4-8.9 [facility] Serum or plasma albumin/glob ulin mass ratioOrdered By: Adele Hunter on 08-25-2023 Albumin/Globulin [Mass ratio] 1.4 {ratio} [facility] Serum or plasma non-glucuron idated bilirubin measurement (mass/volume)Ordered By: Adele Hunter on 08-25-2023 Bilirubin.indirect [Mass/Vol] 0.3 mg/dL [facility] C reactive protein [Mass/vol ume] in Serum or PlasmaOrdered By: Olvin Rollins on 08-24-2023 CRP [Mass/Vol] 0.5 mg/dL 0.0-0.5 [facility] Cholesterol [Mass/volume] in Serum or PlasmaOrdered By: Olvin Rollins on 08-24-2023 Cholesterol [Mass/Vol] 95 mg/dL 140-200 [facility] Comment on above: Chol less than 200 m g/dl low riskChol 201-239 mg/dl borderline riskChol 240 mg/dl and greater high risk Cholesterol in LDL Calc [Mas s/Vol]Ordered By: Olvin Rollins on 08-24-2023 Cholesterol in LDL [Mass/Vol] 39 mg/dL 0-100 [facility] Comment on above: LDL ATP III CLASSIFI CATIONLDL less than 100 mg/dL OptimalLDL 100-129 mg/dL Near or above optimalLDL 130-159 mg/dL Borderline highLDL 160-189 mg/dL HighLDL greater than 189 mg/dL Very high Cholesterol in VLDL Calc [Ma ss/Vol]Ordered By: Olvin Rollins on 08-24-2023 Cholesterol in VLDL [Mass/Vol] 17 mg/dL [facility] Erythrocyte sedimentation ra te by Photometric methodOrdered By: Adele Schmitt on 08-24-2023 ESR Photometric method (Bld) [Velocity] 16 mm/hr 0-29 [facility] Serum or plasma high density lipoprotein (HDL) cholesterol measurementOrdered By: Olvin Rollins on 08-24-2023 Cholesterol in HDL [Mass/Vol] 39 mg/dL 23-92 [facility] Comment on above: HDL CHOL ATP-III CLA SSIFICATION Cardiovascular RiskHDL > or equal to 60 mg/dL LOWHDL < 40 mg/dL HIGH Serum or plasma total choles terol/high density lipoprotein (HDL) cholesterol mass ratOrdered By: Olvin Rollins on 08-24-2023 Cholesterol.total/Choles terol in HDL [Mass ratio] 2.4 {ratio} <5.0 [facility] Thyrotropin [Units/volume] i n Serum or PlasmaOrdered By: Olvin Rollins on 08-24-2023 TSH Qn 1.54 m[IU]/L 0.45-5.33 [facility] Triglyceride [Mass/volume] i n Serum or PlasmaOrdered By: Olvin Rollins on 08-24-2023 Triglyceride [Mass/Vol] 85 mg/dL 0-149 [facility] Comment on above: TRIG ATP III CLASSIF ICATIONTRIG less than 150 mg/dL NormalTRIG 150-199 mg/dL Borderline highTRIG 200-500 mg/dL High TRIG greater than 500 mg/dL Very highStandard traceable to the Center for Disease Conrtrol and Prevention (CDC) test method. Urate [Mass/volume] in Serum or PlasmaOrdered By: Olvin Rollins on 08-24-2023 Urate [Mass/Vol] 4.1 mg/dL 2.3-6.6 [facility] Vitamin D+Metabolites [Mass/ volume] in Serum or PlasmaOrdered By: Olvin Rollins on 08-24-2023 Vitamin D+Metabolites [Mass/Vol] 34.0 ng/mL 30-100 [facility] Comment on above: VITAMIN D STATUS 25( [place])VITAMIN D RANGE (ng/mL) Deficient <20 Insufficient 20 to <30Sufficient 30 to 100Reference: Roque MF,Jhony NC, Janina LAYTON, et al. Evaluation,treatment, and prevention of vitamin D deficiency; an Endocrine Society clinical practice guideline. JCEM. 2010; 96(7):1911-30. Basophils Auto (Bld) [#/Vol] Ordered By: Gelacio Callahan on 04-26-2023 Basophils (Bld) [#/Vol] 0.0 10*3/uL 0.0-0.2 [facility] Basophils/100 WBC Auto (Bld) Ordered By: Gelacio Callahan on 04-26-2023 Basophils/100 WBC (Bld) 1.2 % . F [facility] Eosinophils Auto (Bld) [#/Vo l]Ordered By: Gelacio Callahan on 04-26-2023 Eosinophils (Bld) [#/Vol] 0.1 10*3/uL 0.0-0.45 [facility] Eosinophils/100 WBC Auto (Bl d)Ordered By: Gelacio Callahan on 04-26-2023 Eosinophils/100 WBC (Bld) 3.2 % . [facility] Erythrocyte distribution wid th Auto (RBC) [Ratio]Ordered By: Gelacio Callahan on 04-26-2023 Erythrocyte distribution width (RBC) [Ratio] 12.1 % 11.9-15.3 [facility] Hematocrit Auto (Bld) [Volum e fraction]Ordered By: Gelacio Callahan on 04-26-2023 Hematocrit (Bld) [Volume fraction] 34.0 % 34.0-46.4 [facility] Hemoglobin [Mass/volume] in BloodOrdered By: Gelacio Callahan on 04-26-2023 Hemoglobin (Bld) [Mass/Vol] 11.5 g/dL 11.8-15.4 [facility] Leukocytes [#/volume] correc vargas for nucleated erythrocytes in Blood by Automated counOrdered By: Gelacio Callahan on 04-26-2023 WBC corrected for nucl RBC Auto (Bld) [#/Vol] 3.8 10*3/uL 3.8-11.6 [facility] Lymphocytes Auto (Bld) [#/Vo l]Ordered By: Gelacio Callahan on 04-26-2023 Lymphocytes (Bld) [#/Vol] 1.3 10*3/uL 1.00-4.8 [facility] Lymphocytes/100 WBC Auto (Bl d)Ordered By: Gelacio Callahan on 04-26-2023 Lymphocytes/100 WBC (Bld) 33.3 % . [facility] MCH Auto (RBC) [Entitic mass ]Ordered By: Gelacio Callahan on 04-26-2023 MCH (RBC) [Entitic mass] 33.1 pg 24.7-34.3 [facility] MCHC Auto (RBC) [Mass/Vol]Or dered By: Gelacio Callahan on 04-26-2023 MCHC (RBC) [Mass/Vol] 33.9 g/dL 32.0-35.0 [facility] MCV Auto (RBC) [Entitic vol] Ordered By: Gelacio Callahan on 04-26-2023 MCV (RBC) [Entitic vol] 97.5 fL 80-100 F [facility] Monocytes Auto (Bld) [#/Vol] Ordered By: Gelacio Callahan on 04-26-2023 Monocytes (Bld) [#/Vol] 0.3 10*3/uL 0.0-0.8 [facility] Monocytes/100 WBC Auto (Bld) Ordered By: Gelacio Callahan on 04-26-2023 Monocytes/100 WBC (Bld) 8.2 % . [facility] Neutrophils Auto (Bld) [#/Vo l]Ordered By: Gelacio Callahan on 04-26-2023 Neutrophils (Bld) [#/Vol] 2.1 10*3/uL 1.8-7.7 [facility] Neutrophils/100 WBC Auto (Bl d)Ordered By: Gelacio Callahan on 04-26-2023 Neutrophils/100 WBC (Bld) 54.1 % . [facility] Nucleated erythrocytes [Pres ence] in Blood by Automated countOrdered By: Gelacio Callahan on 04-26-2023 Nucleated RBC Auto Ql (Bld) 0.2 /100{WBC} 0-0.5 [facility] Platelet mean volume Auto (B ld) [Entitic vol]Ordered By: Gelacio Callahan on 04-26-2023 Platelet mean volume (Bld) [Entitic vol] 8.4 fL 6.3-10.7 [facility] Platelets Auto (Bld) [#/Vol] Ordered By: Gelacio Callahan on 04-26-2023 Platelets (Bld) [#/Vol] 231 10*3/uL 150-450 [facility] RBC Auto (Bld) [#/Vol]Ordere d By: Gelacio Callahan on 04-26-2023 RBC (Bld) [#/Vol] 3.49 10*6/uL 3.60-5.00 [facility] WBC Auto (Bld) [#/Vol]Ordere d By: Gelacio Callahan on 04-26-2023 WBC (Bld) [#/Vol] 3.8 10*3/uL 3.8-11.6 [facility] Calcium [Mass/volume] in Ser um or PlasmaOrdered By: Adele Gorman on 04-24-2023 Calcium [Mass/Vol] 7.9 mg/dL 8.6-10.3 [facility] Carbon dioxide, total [Moles /volume] in Serum or PlasmaOrdered By: Adele Gorman on 04-24-2023 CO2 [Moles/Vol] 28.9 mmol/L 21.0-31.0 [facility] Chloride [Moles/volume] in S kennedi or PlasmaOrdered By: Adele Gorman on 04-24-2023 Chloride [Moles/Vol] 108 mmol/L 98-107 [facility] Creatinine [Mass/volume] in Serum or PlasmaOrdered By: Adele Gorman on 04-24-2023 Creatinine [Mass/Vol] 0.95 mg/dL 0.60-1.20 [facility] Glucose [Mass/volume] in Ser um or PlasmaOrdered By: Adele Gorman on 04-24-2023 Glucose [Mass/Vol] 94 mg/dL 70-100 [facility] Comment on above: ADA recommended refe rence rangeRandom Glucose Reference Range is dependent on time and content of last meal. Glucose of more than 200 mg/dL in a nonstressed, ambulatory subject supports the diagnosis of Diabetes Mellitus. No Panel InformationOrdered By: Adele Gorman on 04-24-2023 Estimated GFR (CKD-EPI) > 60.0 mL/Min [facility] Creatinine Clearance (Chem 72.98 [facility] Potassium [Moles/volume] in Serum or PlasmaOrdered By: Adele Gorman on 04-24-2023 Potassium [Moles/Vol] 4.2 mmol/L 3.5-5.1 [facility] Serum or plasma anion gap de terminationOrdered By: Adele Gorman on 04-24-2023 Anion gap [Moles/Vol] 7.3 mmol/L 6.0-15.0 [facility] Sodium [Moles/volume] in Ser um or PlasmaOrdered By: Adele Gorman on 04-24-2023 Sodium [Moles/Vol] 140 mmol/L 136-145 [facility] Urea nitrogen [Mass/volume] in Serum or PlasmaOrdered By: Adele Gorman on 04-24-2023 Urea nitrogen [Mass/Vol] 14 mg/dL 7-25 [facility] Bacteria identified Aer cx N om (Unsp spec)Ordered By: Adele Gorman on 04-23-2023 Superficial Wound Culture Methicillin Resis Staph Aureus [facility] Cholesterol [Mass/volume] in Serum or PlasmaOrdered By: Miah Abrue on 04-15-2023 Cholesterol [Mass/Vol] 136 mg/dL 140-200 [facility] Comment on above: Chol less than 200 m g/dl low riskChol 201-239 mg/dl borderline riskChol 240 mg/dl and greater high risk Cholesterol in LDL Calc [Mas s/Vol]Ordered By: Miah Abreu on 04-15-2023 Cholesterol in LDL [Mass/Vol] 69 mg/dL 0-100 [facility] Comment on above: LDL ATP III CLASSIFI CATIONLDL less than 100 mg/dL OptimalLDL 100-129 mg/dL Near or above optimalLDL 130-159 mg/dL Borderline highLDL 160-189 mg/dL HighLDL greater than 189 mg/dL Very high Cholesterol in VLDL Calc [Ma ss/Vol]Ordered By: Miah Abreu on 04-15-2023 Cholesterol in VLDL [Mass/Vol] 24 mg/dL [facility] Serum or plasma high density lipoprotein (HDL) cholesterol measurementOrdered By: Miah Abreu on 04-15-2023 Cholesterol in HDL [Mass/Vol] 43 mg/dL 23- [facility] Comment on above: HDL CHOL ATP-III CLA SSIFICATION Cardiovascular RiskHDL > or equal to 60 mg/dL LOWHDL < 40 mg/dL HIGH Serum or plasma total choles terol/high density lipoprotein (HDL) cholesterol mass ratOrdered By: Miah Abreu on 04-15-2023 Cholesterol.total/Choles terol in HDL [Mass ratio] 3.2 {ratio} <5.0 [facility] Thyrotropin [Units/volume] i n Serum or PlasmaOrdered By: Miah Abreu on 04-15-2023 TSH Qn 1.98 m[IU]/L 0.45-5.33 [facility] Triglyceride [Mass/volume] i n Serum or PlasmaOrdered By: Miah Mirandaus on 04-15-2023 Triglyceride [Mass/Vol] 122 mg/dL 0-149 [facility] Comment on above: TRIG ATP III CLASSIF ICATIONTRIG less than 150 mg/dL NormalTRIG 150-199 mg/dL Borderline highTRIG 200-500 mg/dL High TRIG greater than 500 mg/dL Very highStandard traceable to the Center for Disease Conrtrol and Prevention (CDC) test method. Vitamin D+Metabolites [Mass/ volume] in Serum or PlasmaOrdered By: Miah Brady on 04-15-2023 Vitamin D+Metabolites [Mass/Vol] 44.6 ng/mL 30-100 [facility] Comment on above: VITAMIN D STATUS 25( [place])VITAMIN D RANGE (ng/mL) Deficient <20 Insufficient 20 to <30Sufficient 30 to 100Reference: Roque MF,Jhony MEDINA, Janina LAYTON, et al. Evaluation,treatment, and prevention of vitamin D deficiency; an Endocrine Society clinical practice guideline. JCEM. 2010; 96(7):1911-30. CBC AUTO DIFFon 09-07-2022 BASO # 0.0 103/ul Normal 0.0-0.1 [facility] Comment on above: Performed By: #### E TH, SALYC, ACET, CMP #### [facility] [address] [address] [address] Erlinda Rivera Basophils/100 WBC (Bld) 0.3 % Normal 0.2-2.0 [facility] Comment on above: Performed By: #### E TH, SALYC, ACET, CMP #### [facility] [address] [address] [address] Erlinda Rivera EO # 0.3 103/ul Normal 0.0-0.7 [facility] Comment on above: Performed By: #### E TH, SALYC, ACET, CMP #### [facility] [address] [address] [address] Erlinda Rivera Eosinophils/100 WBC (Bld) 3.7 % Normal 0.9-7.0 [facility] Comment on above: Performed By: #### E TH, SALYC, ACET, CMP #### [facility] [address] [place] [address] Dr. Erlinda Rivera Erythrocyte distribution width (RBC) [Ratio] 12.5 % Normal 11.0-15.0 [facility] Comment on above: Performed By: #### E TH, SALYC, ACET, CMP #### [facility] [address] [place] [address] Dr. Erlinda Rivera Hematocrit (Bld) [Volume fraction] 37.5 % Normal 36.0-48.0 [facility] Comment on above: Performed By: #### E , SALYC, ACET, CMP #### [facility] [address] [place] [address] Dr. Erlinda Rivera Hemoglobin (Bld) [Mass/Vol] 12.8 g/dL Normal 12.0-16.0 [facility] Comment on above: Performed By: #### E , SALYC, ACET, CMP #### [facility] [address] [place] [address] Dr. Erlinda Rivera IG # 0.02 10e3/ul Normal 0.00-0.03 [facility] Comment on above: Performed By: #### E , SALYC, ACET, CMP #### [facility] [address] [place] [address] Dr. Erlinda Rivera IG % 0.3 % Normal 0.0-0.5 [facility] Comment on above: Performed By: #### E , SALYC, ACET, CMP #### [facility] [address] [place] [address] Dr. Erlinda Rivera LYMPH # 2.0 103/ul Normal 1.2-3.8 [facility] Comment on above: Performed By: #### E TH, SALYC, ACET, CMP #### [facility] [address] [place] [address] Dr. Elrinda Rivera Lymphocytes/100 WBC (Bld) 28.8 % Normal 20.5-60.0 [facility] Comment on above: Performed By: #### E TH, SALYC, ACET, CMP #### [facility] [address] [place] [address] Dr. Erlinda Rivera MANUAL DIFF REQ NO Normal [facility] Comment on above: Performed By: #### E TH, SALYC, ACET, CMP #### [facility] [address] [place] [address] Dr. Erlinda Rivera MCH (RBC) [Entitic mass] 33.2 pg Normal 26.7-34.0 [facility] Comment on above: Performed By: #### E TH, SALYC, ACET, CMP #### [facility] [address] [place] [address] Dr. Erlinda Rivera MCHC (RBC) [Mass/Vol] 34.1 g/dL Normal 29.9-35.2 [facility] Comment on above: Performed By: #### E TH, SALYC, ACET, CMP #### [facility] [address] [place] [address] Dr. Erlinda Rivera MCV (RBC) [Entitic vol] 97.2 fL Normal 81.0-99.0 [facility] Comment on above: Performed By: #### E , SALYC, ACET, CMP #### [facility] [address] [place] [address] Dr. Erlinda Rivera MONO # 0.6 103/ul Normal 0.3-0.8 [facility] Comment on above: Performed By: #### E TH, SALYC, ACET, CMP #### [facility] [address] [place] [address] Dr. Erlinda Rivera Monocytes/100 WBC (Bld) 7.8 % Normal 1.7-12.0 [facility] Comment on above: Performed By: #### E TH, SALYC, ACET, CMP #### [facility] [address] [place] [address] Dr. Erlinda Rivera NEUT # 4.2 103/ul Normal 1.4-6.5 [facility] Comment on above: Performed By: #### E TH, SALYC, ACET, CMP #### [facility] [address] [place] [address] Dr. Erlinda Rivera Neutrophils/100 WBC (Bld) 59.1 % Normal 43.0-75.0 [facility] Comment on above: Performed By: #### E TH, SALYC, ACET, CMP #### [facility] [address] [place] [address] Dr. Erlinda Rivera Platelet mean volume (Bld) [Entitic vol] 10.2 fL Normal 9.5-13.5 [facility] Comment on above: Performed By: #### E TH, SALYC, ACET, CMP #### [facility] [address] [address] [address] Erlinda Rivera PLT 270 103/ul Normal 150-450 [facility] Comment on above: Performed By: #### E TH, SALYC, ACET, CMP #### [facility] [address] [place] [address] Dr. Erlinda Rivera RBC 3.86 106/ul Critically low 4.20-5.40 [facility] Comment on above: Performed By: #### E TH, SALYC, ACET, CMP #### [facility] [address] [address] [address] Erlinda Rivera WBC 7.0 103/ul Normal 4.0-11.0 [facility] Comment on above: Performed By: #### E TH, SALYC, ACET, CMP #### [facility] [address] [place] [address] ABD/PELVIS WO CONon [...] Tressa BROWN Date: 2022-09-07 17:02 Normal [facility] CULTURE URINEon 09-07-2022 CULTURE URINE Culture Observations: NO GROWTH. Normal [facility] Comment on above: Performed By: #### C VDTB #### [facility] [address] [place] [address] Dr. Erlinda Rivera ER URINE PROFILEon 2 Bilirubin Ql (U) Negative Normal NEGATIVE [facility] Comment on above: Performed By: #### Sakina DE PAZ UMICRO #### [facility] [address] [place] [address] Dr. Erlinda Rivera Clarity (U) CLEAR Normal CLEAR [facility] Comment on above: Performed By: #### Sakina DE PAZ UMICRO #### [facility] [address] [place] [address] Dr. Erlinda Rivera Color (U) LT. YELLOW Normal YELLOW [facility] Comment on above: Performed By: #### E RUR, UMICRO #### [facility] [address] [place] [address] Dr. Erlinda Rivera ERUAHD A micrscopic examination will be performed if indicated. Normal [facility] Comment on above: Performed By: #### E RUBerhane UMICRO #### [facility] [address] [place] [address] Dr. Erlinda Rivera Glucose Ql (U) Negative Normal NEGATIVE [facility] Comment on above: Performed By: #### E RUR, UMICRO #### [facility] [address] [place] [address] Dr. Erlinda Rivera Hemoglobin Ql (U) Negative Normal NEGATIVE [facility] Comment on above: Performed By: #### SEBASTIÁN SOTELORO #### [facility] [address] [place] [address] Dr. Erlinda Rivera Ketones Ql (U) Negative Normal NEGATIVE [facility] Comment on above: Performed By: #### SEBASTIÁN SOTELORO #### [facility] [address] [place] [address] Dr. Erlinda Rivera LEUKOCYTES MODERATE Abnormal NEGATIVE [facility] Comment on above: Performed By: #### SEBASTIÁN SOTELORO #### [facility] [address] [place] [address] Dr. Erlinda Rivera Nitrite Ql (U) Negative Normal NEGATIVE [facility] Comment on above: Performed By: #### SEBASTIÁN SOTELORO #### [facility] [address] [place] [address] Dr. Erlinda Rivera pH (U) 6.0 [pH] Normal 5-9 [facility] Comment on above: Performed By: #### GHASSAN SOTELO #### [facility] [address] [place] [address] Dr. Erlinda Rivera SPEC GRAVITY 1.025 Normal 1.005-<=1.025 [facility] Comment on above: Performed By: #### SEBASTIÁN SOTELORO #### [facility] [address] [place] [address] Dr. Erlinda Rivera UA PROTEIN Negative Normal NEGATIVE/ TRACE [facility] Comment on above: Performed By: #### SEBASTIÁN SOTELORO #### [facility] [address] [place] [address] Dr. Erlinda Rivera UR MICRO IND INDICATED Normal [facility] Comment on above: Performed By: #### SEBASTIÁN SOTELORO #### [facility] [address] [place] [address] Dr. Erlinda Rivera Urobilinogen Qn (U) 0.2 {Shannan'U}/dL Normal 0.2 - 1. 0 [facility] Comment on above: Performed By: #### E RURESTHERICRO #### [facility] [address] [address] [address] Erlinda Rivrea LIPASEon 09-07-2022 Lipase [Catalytic activity/Vol] 173.0 U/L Normal 73.0-393.0 [facility] Comment on above: Performed By: #### E TH, SALYC, ACET, CMP #### [facility] [address] [address] [address] Erlinda Rivera PREG HCG QUALon 09-07-2022 , QUAL Negative Normal NEGATIVE [facility] Comment on above: Performed By: #### E TH, SALYC, ACET, CMP #### [facility] [address] [place] [address] Dr. Erlinda Rivera PROF 14(COMP METB)on 022 Albumin [Mass/Vol] 3.8 g/dL Normal 3.4-5.0 [facility] Comment on above: Performed By: #### E TH, SALYC, ACET, CMP #### [facility] [address] [address] [address] Erlinda Rivera Albumin/Globulin [Mass ratio] 0.9 {ratio} Normal [facility] Comment on above: Performed By: #### E TH, SALYC, ACET, CMP #### [facility] [address] [address] [address] Erlinda Rivera ALP [Catalytic activity/Vol] 75 U/L Normal 46-116 [facility] Comment on above: Performed By: #### E TH, SALYC, ACET, CMP #### [facility] [address] [address] [address] Erlinda Rivera ALT [Catalytic activity/Vol] 10 U/L Critically low 14-59 [facility] Comment on above: Performed By: #### E TH, SALYC, ACET, CMP #### [facility] [address] [address] [address] Erlinda Rivera Anion gap [Moles/Vol] 9.7 mmol/L Normal [facility] Comment on above: Performed By: #### E TH, SALYC, ACET, CMP #### [facility] [address] [address] [address] Erlinda Rivera AST [Catalytic activity/Vol] 21 U/L Normal 15-37 [facility] Comment on above: Performed By: #### E TH, SALYC, ACET, CMP #### [facility] [address] [address] [address] Erlinda Rivera Bilirubin [Mass/Vol] 0.4 mg/dL Normal 0.2-1.0 [facility] Comment on above: Performed By: #### E , SALYC, ACET, CMP #### [facility] [address] [place] [address] Dr. Erlinda Rivera Calcium [Mass/Vol] 8.8 mg/dL Normal 8.5-10.1 [facility] Comment on above: Performed By: #### E , SALYC, ACET, CMP #### [facility] [address] [address] [address] Erlinda Rivera Chloride [Moles/Vol] 103 mmol/L Normal 98-107 [facility] Comment on above: Performed By: #### E , SALYC, ACET, CMP #### [facility] [address] [place] [address] Dr. Erlinda Rivera CO2 [Moles/Vol] 28.8 mmol/L Normal 21.0-32.[address] [facility] Comment on above: Performed By: #### E TH, SALYC, ACET, CMP #### [facility] [address] [place] [address] Dr. Erlinda Rivera Creatinine [Mass/Vol] 0.86 mg/dL Normal 0.55-1.02 [facility] Comment on above: Performed By: #### E TH, SALYC, ACET, CMP #### [facility] [address] [place] [address] Dr. Erlinda Rivera EGFR-AF CYMRO >60 Normal >=[address] [facility] Comment on above: Performed By: #### E TH, SALYC, ACET, CMP #### [facility] [address] [address] [address] Erlinda Rivera EGFR-NON AF CYMRO >60 Normal >=60 [facility] Comment on above: Performed By: #### E TH, SALYC, ACET, CMP #### [facility] [address] [address] [address] Erlinda Rivera Globulin (S) [Mass/Vol] 4.1 g/dL Normal [facility] Comment on above: Performed By: #### E TH, SALYC, ACET, CMP #### [facility] [address] [address] [address] Erlinda Rivera Glucose [Mass/Vol] 79 mg/dL Normal 74-106 [facility] Comment on above: Performed By: #### E TH, SALYC, ACET, CMP #### [facility] [address] [place] [address] Dr. Erlinda Rivera Potassium [Moles/Vol] 4.5 mmol/L Normal 3.5-5.1 [facility] Comment on above: Performed By: #### E TH, SALYC, ACET, CMP #### [facility] [address] [place] [address] Dr. Erlinda Rivera Protein [Mass/Vol] 7.9 g/dL Normal 6.4-8.2 [facility] Comment on above: Performed By: #### E TH, SALYC, ACET, CMP #### [facility] [address] [address] [address] Erlinda Rivera Sodium [Moles/Vol] 137 mmol/L Normal 136-145 [facility] Comment on above: Performed By: #### E TH, SALYC, ACET, CMP #### [facility] [address] [place] [address] Dr. Erlinda Rivera Urea nitrogen [Mass/Vol] 12.0 mg/dL Normal 7.0-18.0 [facility] Comment on above: Performed By: #### E TH, SALYC, ACET, CMP #### [facility] [address] [address] [address] Erlinda Rivera Urea nitrogen/Creatinine [Mass ratio] 14.0 mg/mg Normal [facility] Comment on above: Performed By: #### E TH, SALYC, ACET, CMP #### [facility] [address] [place] [address] Dr. Erlinda Rivera URINE MICROSCOPIC ONLYon BACTERIA SMALL Abnormal NONE SEEN [facility] Comment on above: Performed By: #### E RUR, UMICRO #### [facility] [address] [place] [address] Dr. Erlinda Rivera Bacteria identified Cx Nom (U) INDICATED Normal [facility] Comment on above: Performed By: #### E RUR, UMICRO #### [facility] [address] [place] [address] Dr. Erlinda Rivera CAST NONE SEEN Normal NONE SEEN [facility] Comment on above: Performed By: #### E RUR, UMICRO #### [facility] [address] [place] [address] Dr. Erlinda Rivera Crystals LM Nom (Urine sed) NONE SEEN Normal NONE SEEN [facility] Comment on above: Performed By: #### E RUR, UMICRO #### [facility] [address] [place] [address] Dr. Erlinda Rivera Epithelial cells LM Ql (Urine sed) MODERATE Abnormal NONE SEEN /RARE [facility] Comment on above: Performed By: #### E RUR, UMICRO #### [facility] [address] [place] [address] Dr. Erlinda Rivera MUCOUS SMALL Abnormal NONE SEEN [facility] Comment on above: Performed By: #### E RUR, UMICRO #### [facility] [address] [place] [address] Dr. Erlinda Rivera RBC 2-5 Abnormal 0-2 [facility] Comment on above: Performed By: #### E RUR, UMICRO #### [facility] [address] [place] [address] Dr. Erlinda Rivera WBC 10-20 Abnormal NONE SEEN [facility] Comment on above: Performed By: #### E RUR, UMICRO #### [facility] [address] [address] [address] Erlinda Rivera Bilirubin Test strip Ql (U)O rdered By: Olvin Rollins on 08-31-2022 Bilirubin Ql (U) Negative Negative [facility] Color Auto (U)Ordered By: Ab filiberto Rollins on 08-31-2022 Color (U) Yellow Yellow [facility] Ketones Auto test strip (U) [Mass/Vol]Ordered By: Olvin Rollins on 08-31-2022 Ketones (U) [Mass/Vol] Negative Negative Fi [facility] Nitrite Test strip Ql (U)Ord ered By: Olvin Rollins on 08-31-2022 Nitrite Ql (U) Negative Negative [facility] Protein Auto test strip (U) [Mass/Vol]Ordered By: Olvin Rollins on 08-31-2022 Protein (U) [Mass/Vol] Negative Negative [facility] Specific gravity Auto test s trip (U) [Rel density]Ordered By: Olvin Rollins on 08-31-2022 Specific gravity (U) [Rel density] 1.006 1.001-1.030 [facility] Urine clarity by refractomet ry automatedOrdered By: Olvin Rollins on 08-31-2022 Clarity Refractometry automated (U) Clear Clear [facility] Urine glucose measurement by automated test strip (mass/volume)Ordered By: Olvin Rollins on 08-31-2022 Glucose Auto test strip (U) [Mass/Vol] Normal mg/dL Normal [facility] Urine hemoglobin detection b y automated test stripOrdered By: Olvin Rollins on 08-31-2022 Hemoglobin Auto test strip Ql (U) Negative Negative [facility] Urine leukocyte esterase det ection by automated test stripOrdered By: Olvin Rollins on 08-31-2022 Leukocyte esterase Auto test strip Ql (U) Negative Negative [facility] Urobilinogen Auto test strip (U) [Mass/Vol]Ordered By: Olvin Rollins on 08-31-2022 Urobilinogen (U) [Mass/Vol] Normal mg/dL Normal [facility] pH Auto test strip (U)Ordere d By: Olvin Rollins on 08-31-2022 pH (U) 6.5 [pH] 5.0-9.0 [facility] Cholesterol [Mass/volume] in Serum or PlasmaOrdered By: Miah Abreu on 08-30-2022 Cholesterol [Mass/Vol] 153 mg/dL 140-200 [facility] Comment on above: Chol less than 200 m g/dl low riskChol 201-239 mg/dl borderline riskChol 240 mg/dl and greater high risk Cholesterol in LDL Calc [Mas s/Vol]Ordered By: Miah Abreu on 08-30-2022 Cholesterol in LDL [Mass/Vol] 82 mg/dL 0-100 [facility] Comment on above: LDL ATP III CLASSIFI CATIONLDL less than 100 mg/dL OptimalLDL 100-129 mg/dL Near or above optimalLDL 130-159 mg/dL Borderline highLDL 160-189 mg/dL HighLDL greater than 189 mg/dL Very high Cholesterol in VLDL Calc [Ma ss/Vol]Ordered By: Miah Abreu on 08-30-2022 Cholesterol in VLDL [Mass/Vol] 10 mg/dL [facility] No Panel InformationOrdered By: Miah Abreu on 08-30-2022 25-Hydroxy Vitamin D Total 40.5 ng/mL 30-100 [facility] Comment on above: VITAMIN D [...] Cholesterol in HDL [Mass/Vol] 61 mg/dL 35-85 [facility] Comment on above: HDL CHOL ATP-III CLA SSIFICATION Cardiovascular RiskHDL > or equal to 60 mg/dL LOWHDL < 40 mg/dL HIGH Serum or plasma total choles terol/high density lipoprotein (HDL) cholesterol mass ratOrdered By: Miah Abreu on 08-30-2022 Cholesterol.total/Choles terol in HDL [Mass ratio] 2.5 {ratio} <5.0 [facility] TSH DL <= 0.005 mIU/L QnOrde red By: Miah Abreu on 08-30-2022 TSH Qn 0.98 m[IU]/L 0.45-5.33 [facility] Triglyceride [Mass/volume] i n Serum or PlasmaOrdered By: Miah Abreu on 08-30-2022 Triglyceride [Mass/Vol] 52 mg/dL 35-149 [facility] Comment on above: TRIG ATP III CLASSIF ICATIONTRIG less than 150 mg/dL NormalTRIG 150-199 mg/dL Borderline highTRIG 200-500 mg/dL High TRIG greater than 500 mg/dL Very highStandard traceable to the Center for Disease Conrtrol and Prevention (CDC) test method. Cholesterol [Mass/volume] in Serum or PlasmaOrdered By: Miah Abreu on 06-07-2022 Cholesterol [Mass/Vol] 156 mg/dL 140-200 [facility] Comment on above: Chol less than 200 m g/dl low risk Chol 201-239 mg/dl borderline risk Chol 240 mg/dl and greater high risk Chol less than 200 m g/dl low riskChol 201-239 mg/dl borderline riskChol 240 mg/dl and greater high risk Cholesterol in LDL Calc [Mas s/Vol]Ordered By: Miah Abreu on 06-07-2022 Cholesterol in LDL [Mass/Vol] 89 mg/dL 0-100 [facility] Comment on above: LDL ATP [...] 06-07-2022 Cholesterol in VLDL [Mass/Vol] 20 mg/dL [facility] No Panel InformationOrdered By: Miah Abreu on 06-07-2022 25-Hydroxy Vitamin D Total 62.5 ng/mL 30-100 [facility] Comment on above: VITAMIN D [...] Cholesterol in HDL [Mass/Vol] 47 mg/dL 35-85 [facility] Comment on above: HDL CHOL ATP-III CLA SSIFICATION Cardiovascular Risk HDL > or equal to 60 mg/dL LOW HDL < 40 mg/dL HIGH HDL CHOL ATP-III CLA SSIFICATION Cardiovascular RiskHDL > or equal to 60 mg/dL LOWHDL < 40 mg/dL HIGH Serum or plasma total choles terol/high density lipoprotein (HDL) cholesterol mass ratOrdered By: Miah Abreu on 06-07-2022 Cholesterol.total/Choles terol in HDL [Mass ratio] 3.3 {ratio} <5.0 [facility] TSH DL <= 0.005 mIU/L QnOrde red By: Miah Abreu on 06-07-2022 TSH Qn 1.54 m[IU]/L 0.45-5.33 [facility] Triglyceride [Mass/volume] i n Serum or PlasmaOrdered By: Miah Abreu on 06-07-2022 Triglyceride [Mass/Vol] 101 mg/dL 35-149 [facility] Comment on above: TRIG ATP [...] ACETAMINOPHENon 06-06-2022 Acetaminophen [Mass/Vol] ug/mL Critically low 10.0-30 .0 [facility] Comment on above: Performed By: #### E TH, SALYC, ACET, CMP #### [facility] [address] [address] [address] Erlinda Rivera CBC AUTO DIFFon 06-06-2022 BASO # 0.0 103/ul Normal 0.0-0.1 [facility] Comment on above: Performed By: #### C BC #### [facility] [address] [address] [address] Erlinda Rivera Basophils/100 WBC (Bld) 0.3 % Normal 0.2-2.0 [facility] Comment on above: Performed By: #### C BC #### [facility] [address] [address] [address] Erlinda Rivera EO # 0.1 103/ul Normal 0.0-0.7 [facility] Comment on above: Performed By: #### C BC #### [facility] [address] [address] [address] Erlinda Rivera Eosinophils/100 WBC (Bld) 1.7 % Normal 0.9-7.0 [facility] Comment on above: Performed By: #### C BC #### [facility] [address] [place] [address] Dr. Erlinda Rivera Erythrocyte distribution width (RBC) [Ratio] 11.9 % Normal 11.0-15.0 [facility] Comment on above: Performed By: #### C BC #### [facility] [address] [place] [address] Dr. Erlinda Rivera Hematocrit (Bld) [Volume fraction] 37.3 % Normal 36.0-48.0 [facility] Comment on above: Performed By: #### C BC #### [facility] [address] [place] [address] Dr. Erlinda Rivera Hemoglobin (Bld) [Mass/Vol] 12.8 g/dL Normal 12.0-16.0 [facility] Comment on above: Performed By: #### C BC #### [facility] [address] [place] [address] Dr. Erlinda Rivera IG # 0.01 10e3/ul Normal 0.00-0.03 [facility] Comment on above: Performed By: #### C BC #### [facility] [address] [place] [address] Dr. Erlinda Rivera IG % 0.2 % Normal 0.0-0.5 [facility] Comment on above: Performed By: #### C BC #### [facility] [address] [place] [address] Dr. Erlinda Rivera LYMPH # 1.5 103/ul Normal 1.2-3.8 [facility] Comment on above: Performed By: #### C BC #### [facility] [address] [place] [address] Dr. Erlinda Rivera Lymphocytes/100 WBC (Bld) 25.7 % Normal 20.5-60.0 [facility] Comment on above: Performed By: #### C BC #### [facility] [address] [place] [address] Dr. Erlinda Rivera MANUAL DIFF REQ NO Normal [facility] Comment on above: Performed By: #### C BC #### [facility] [address] [place] [address] Dr. Erlinda Rivera MCH (RBC) [Entitic mass] 33.3 pg Normal 26.7-34.0 [facility] Comment on above: Performed By: #### C BC #### [facility] [address] [address] [address] Erlinda Rivera MCHC (RBC) [Mass/Vol] 34.3 g/dL Normal 29.9-35.2 [facility] Comment on above: Performed By: #### C BC #### [facility] [address] [place] [address] Dr. Erlinda Rivera MCV (RBC) [Entitic vol] 97.1 fL Normal 81.0-99.0 [facility] Comment on above: Performed By: #### C BC #### [facility] [address] [place] [address] Dr. Erlinda Rivera MONO # 0.5 103/ul Normal 0.3-0.8 [facility] Comment on above: Performed By: #### C BC #### [facility] [address] [place] [address] Dr. Erlinda Rivera Monocytes/100 WBC (Bld) 8.2 % Normal 1.7-12.0 [facility] Comment on above: Performed By: #### C BC #### [facility] [address] [place] [address] Dr. Erlinda Rivera NEUT # 3.7 103/ul Normal 1.4-6.5 [facility] Comment on above: Performed By: #### C BC #### [facility] [address] [place] [address] Dr. Erlinda Rivera Neutrophils/100 WBC (Bld) 63.9 % Normal 43.0-75.0 [facility] Comment on above: Performed By: #### C BC #### [facility] [address] [place] [address] Dr. Erlinda Rivera Platelet mean volume (Bld) [Entitic vol] 10.7 fL Normal 9.5-13.5 [facility] Comment on above: Performed By: #### C BC #### [facility] [address] [place] [address] Dr. Erlinda Rivera PLT 224 103/ul Normal 150-450 [facility] Comment on above: Performed By: #### C BC #### [facility] [address] [address] [address] Erlinda Rivera RBC 3.84 106/ul Critically low 4.20-5.40 [facility] Comment on above: Performed By: #### C BC #### [facility] [address] [address] [address] Erlinda Rivera WBC 5.7 103/ul Normal 4.0-11.0 [facility] Comment on above: Performed By: #### C BC #### [facility] [address] [address] [address] Erlinda Rivera CULTURE URINEon 06-06-2022 CULTURE URINE Culture Observations: NO GROWTH. Normal [facility] Comment on above: Performed By: #### C VDTBH #### [facility] [address] [address] [address] Erlinda Rivera Covid-19 PCR ([facility])on SARS-CoV-2 (COVID-19) RNA TISHA+probe Ql (Unsp spec) Not detected Normal NOT DETECTED [facility] Comment on above: Result Comment: When diagnostic [...] for this test is supported by the [place] of Health and Human Service's declaration that [...] longer be used). Performed By: #### C VDTBH #### [facility] [address] [address] [address] Erlinda Rivera DRUG SCREEN RAPID (URINE)on 06-06-2022 AMP Negative Normal NEGATIVE [facility] Comment on above: Performed By: #### E RUR, UMICRO #### [facility] [address] [place] [address] Dr. Erlinda Rivera BAR Negative Normal NEGATIVE [facility] Comment on above: Performed By: #### E RUR, UMICRO #### [facility] [address] [place] [address] Dr. Erlinda Rivera BUP Negative Normal NEGATIVE [facility] Comment on above: Performed By: #### E RUR, UMICRO #### [facility] [address] [place] [address] Dr. Erlinda Rivera BZO Positive Abnormal NEGATIVE [facility] Comment on above: Performed By: #### E RUR, UMICRO #### [facility] [address] [place] [address] Dr. Erlinda Rivera DOUGLAS Positive Abnormal NEGATIVE [facility] Comment on above: Performed By: #### E RUR, UMICRO #### [facility] [address] [place] [address] Dr. Erlinda Rivera CUT-OFFS SEE BELOW Normal [facility] Comment on above: Result Comment: AMP (Amphetamine): [...] Performed By: #### E RUR, UMICRO #### [facility] [address] [place] [address] Dr. Erlinda Rivera DRUG CUT HEADER DRUG CLASS TEST SYSTEM CUT-OFF CONCENTRATIONS ARE FOLLOWS: Normal [facility] Comment on above: Performed By: #### E RUR, UMICRO #### [facility] [address] [place] [address] Dr. Erlinda Rivera mAMP Negative Normal NEGATIVE [facility] Comment on above: Performed By: #### E RUR, UMICRO #### [facility] [address] [place] [address] Dr. Erlinda Rivera MTD Negative Normal NEGATIVE [facility] Comment on above: Performed By: #### E RUR, UMICRO #### [facility] [address] [place] [address] Dr. Erlinda Rivera OPI Negative Normal NEGATIVE [facility] Comment on above: Performed By: #### E RUR UMICRO #### [facility] [address] [place] [address] Dr. Erlinda Rivera OXY Negative Normal NEGATIVE [facility] Comment on above: Performed By: #### E RUBerhane UMICRO #### [facility] [address] [place] [address] Dr. Erlinda Rivera PCP Negative Normal NEGATIVE [facility] Comment on above: Performed By: #### Sakina DE PAZ UMICRO #### [facility] [address] [place] [address] Dr. Erlinda Rivera PPX Negative Normal NEGATIVE [facility] Comment on above: Performed By: #### Sakina DE PAZ, UMICRO #### [facility] [address] [place] [address] Dr. Erlinda Rivera TCA Negative Normal NEGATIVE [facility] Comment on above: Performed By: #### E RUR UMICRO #### [facility] [address] [place] [address] Dr. Erlinda Rivera THC Positive Abnormal NEGATIVE [facility] Comment on above: Performed By: #### E RUBerhane UMICRO #### [facility] [address] [place] [address] Dr. Erlinda Rivera ER URINE PROFILEon 2 Bilirubin Ql (U) Negative Normal NEGATIVE [facility] Comment on above: Performed By: #### E RUR, UMICRO #### [facility] [address] [place] [address] Dr. Erlinda Rivera Clarity (U) SL CLOUDY Abnormal CLEAR [facility] Comment on above: Performed By: #### ESTHER SOTELOICRO #### [facility] [address] [place] [address] Dr. Erlinda Rivera Color (U) LT. YELLOW Normal YELLOW [facility] Comment on above: Performed By: #### ESTHER SOTELOICRO #### [facility] [address] [place] [address] Dr. Erlinda ALFONSO A micrscopic examination will be performed if indicated. Normal [facility] Comment on above: Performed By: #### SEBASTIÁN SOTELORO #### [facility] [address] [place] [address] Dr. Erlinda Rivera Glucose Ql (U) Negative Normal NEGATIVE [facility] Comment on above: Performed By: #### ESTHER SOTELOICRO #### [facility] [address] [place] [address] Dr. Erlinda Rivera Hemoglobin Ql (U) Negative Normal NEGATIVE [facility] Comment on above: Performed By: #### SEBASTIÁN SOTELORO #### [facility] [address] [place] [address] Dr. Erlinda Rivera Ketones Ql (U) Negative Normal NEGATIVE [facility] Comment on above: Performed By: #### SEBASTIÁN SOTELORO #### [facility] [address] [place] [address] Dr. Erlinda Rivera LEUKOCYTES SMALL Abnormal NEGATIVE [facility] Comment on above: Performed By: #### ESTHER SOTELOICRO #### [facility] [address] [place] [address] Dr. Erlinda Rivera Nitrite Ql (U) Negative Normal NEGATIVE [facility] Comment on above: Performed By: #### Sakina DE PAZ UMICRO #### [facility] [address] [place] [address] Dr. Erlinda Rivera pH (U) 6.0 [pH] Normal 5-9 [facility] Comment on above: Performed By: #### E RUR, UMICRO #### [facility] [address] [place] [address] Dr. Erlinda Rivera SPEC GRAVITY 1.020 Normal 1.005-<=1.025 [facility] Comment on above: Performed By: #### Sakina DE PAZ UMICRO #### [facility] [address] [place] [address] Dr. Erlinda Rivera UA PROTEIN Negative Normal NEGATIVE/ TRACE [facility] Comment on above: Performed By: #### Sakina DE PAZ UMICRO #### [facility] [address] [place] [address] Dr. Erlinda Rivera UR MICRO IND INDICATED Normal [facility] Comment on above: Performed By: #### SEBASTIÁN SOTELORO #### [facility] [address] [place] [address] Dr. Erlinda Rivera Urobilinogen Qn (U) 0.2 {Shannan'U}/dL Normal 0.2 - 1. 0 [facility] Comment on above: Performed By: #### Sakina DE PAZ ICRO #### [facility] [address] [place] [address] Dr. Erlinda Rivera ETHANOL (BLD ALC)on 06-06-20 22 ALC NOTE NOTE: 80 mg/dl is the legal limit for a blood alcohol level Normal [facility] Comment on above: Performed By: #### E TH, SALYC, ACET, CMP #### [facility] [address] [place] [address] Dr. Erlinda Rivera Ethanol [Mass/Vol] mg/dL Normal [facility] Comment on above: Performed By: #### E TH, SALYC, ACET, CMP #### [facility] [address] [place] [address] Dr. Erlinda Rivera URon 06-06-2022 , QUAL Negative Normal NEGATIVE [facility] Comment on above: Performed By: #### P REGU #### [facility] [address] [place] [address] Dr. Erlinda Rivera PROF 14(COMP METB)on 022 Albumin [Mass/Vol] 4.2 g/dL Normal 3.4-5.0 [facility] Comment on above: Performed By: #### E , SALMOUNA, ACET, CMP #### [facility] [address] [place] [address] Dr. Erlinda Rivera Albumin/Globulin [Mass ratio] 1.2 {ratio} Normal [facility] Comment on above: Performed By: #### E , SALYC, ACET, CMP #### [facility] [address] [place] [address] Dr. Erlinda Rivera ALP [Catalytic activity/Vol] 71 U/L Normal 46-116 [facility] Comment on above: Performed By: #### E , SALYC, ACET, CMP #### [facility] [address] [place] [address] Dr. Erlinda Rivera ALT [Catalytic activity/Vol] 91 U/L Critically high 14-59 [facility] Comment on above: Performed By: #### E , SALYC, ACET, CMP #### [facility] [address] [place] [address] Dr. Erlinda Rivera Anion gap [Moles/Vol] 13.9 mmol/L Normal [facility] Comment on above: Performed By: #### E , SALYC, ACET, CMP #### [facility] [address] [place] [address] Dr. Erlinda Rivera AST [Catalytic activity/Vol] 81 U/L Critically high 15-37 [facility] Comment on above: Performed By: #### E , SALYC, ACET, CMP #### [facility] [address] [place] [address] Dr. Erlinda Rivera Bilirubin [Mass/Vol] 0.4 mg/dL Normal 0.2-1.0 [facility] Comment on above: Performed By: #### E , SALYC, ACET, CMP #### [facility] [address] [place] [address] Dr. Erlinda Rivera Calcium [Mass/Vol] 9.1 mg/dL Normal 8.5-10.1 [facility] Comment on above: Performed By: #### E , SALYC, ACET, CMP #### [facility] [address] [address] [address] Erlinda Rivera Chloride [Moles/Vol] 105 mmol/L Normal 98-107 [facility] Comment on above: Performed By: #### E TH, SALYC, ACET, CMP #### [facility] [address] [place] [address] Dr. Erlinda Rivera CO2 [Moles/Vol] 28.3 mmol/L Normal 21.0-32.0 [facility] Comment on above: Performed By: #### E TH, SALYC, ACET, CMP #### [facility] [address] [place] [address] Dr. Erlinda Rivera Creatinine [Mass/Vol] 0.86 mg/dL Normal 0.55-1.02 [facility] Comment on above: Performed By: #### E TH, SALYC, ACET, CMP #### [facility] [address] [place] [address] Dr. Erlinda Rivera EGFR-AF CYMRO >60 Normal >=60 [facility] Comment on above: Performed By: #### E TH, SALYC, ACET, CMP #### [facility] [address] [place] [address] Dr. Erlinda Rivera EGFR-NON AF CYMRO >60 Normal >=60 [facility] Comment on above: Performed By: #### E TH, SALYC, ACET, CMP #### [facility] [address] [place] [address] Dr. Erlinda Rivera Globulin (S) [Mass/Vol] 3.4 g/dL Normal [facility] Comment on above: Performed By: #### E TH, SALYC, ACET, CMP #### [facility] [address] [place] [address] Dr. Erlinda Rivera Glucose [Mass/Vol] 94 mg/dL Normal 74-106 [facility] Comment on above: Performed By: #### E TH, SALYC, ACET, CMP #### [facility] [address] [place] [address] Dr. Erlinda Rivera Potassium [Moles/Vol] 4.2 mmol/L Normal 3.5-5.1 [facility] Comment on above: Performed By: #### E TH, SALYC, ACET, CMP #### [facility] [address] [place] [address] Dr. Erlnida Rivera Protein [Mass/Vol] 7.6 g/dL Normal 6.4-8.2 [facility] Comment on above: Performed By: #### E TH, SALYC, ACET, CMP #### [facility] [address] [place] [address] Dr. Erlinda Rivera Sodium [Moles/Vol] 143 mmol/L Normal 136-145 [facility] Comment on above: Performed By: #### E TH, SALYC, ACET, CMP #### [facility] [address] [place] [address] Dr. Erlinda Rivera Urea nitrogen [Mass/Vol] 10.0 mg/dL Normal 7.0-18.0 [facility] Comment on above: Performed By: #### E TH, SALYC, ACET, CMP #### [facility] [address] [place] [address] Dr. Erlinda Rivera Urea nitrogen/Creatinine [Mass ratio] 11.6 mg/mg Normal [facility] Comment on above: Performed By: #### E TH, SALYC, ACET, CMP #### [facility] [address] [place] [address] Dr. Erlinda Rivera SALICYLATEon 06-06-2022 SALICYLATE 3.5 mg/dL Normal <=19.9 [facility] Comment on above: Performed By: #### E TH, SALYC, ACET, CMP #### [facility] [address] [place] [address] Dr. Erlinda Rivera URINE MICROSCOPIC ONLYon BACTERIA SMALL Abnormal NONE SEEN [facility] Comment on above: Performed By: #### GHASSAN SOTELO #### [facility] [address] [place] [address] Dr. Erlinda Rivera Bacteria identified Cx Nom (U) INDICATED Normal [facility] Comment on above: Performed By: #### E RUR, UMICRO #### [facility] [address] [place] [address] Dr. Erlinda Rivera CAST NONE SEEN Normal NONE SEEN [facility] Comment on above: Performed By: #### Sakina DE PAZ UMICRO #### [facility] [address] [place] [address] Dr. Erlinda Rivera Crystals LM Nom (Urine sed) NONE SEEN Normal NONE SEEN [facility] Comment on above: Performed By: #### Sakina DE PAZ UMICRO #### [facility] [address] [place] [address] Dr. Erlinda Rivera Epithelial cells LM Ql (Urine sed) FEW Abnormal NONE SEEN /RARE [facility] Comment on above: Performed By: #### Sakina DE PAZ UMICRO #### [facility] [address] [place] [address] Dr. Erlinda Rivera MUCOUS NONE SEEN Normal NONE SEEN [facility] Comment on above: Performed By: #### ESTHER SOTELOICRO #### [facility] [address] [place] [address] Dr. Erlinda Rivera RBC 0-2 Normal 0-2 [facility] Comment on above: Performed By: #### Sakina DE PAZ UMICRO #### [facility] [address] [place] [address] Dr. Erlinda Rivera WBC 2-5 Abnormal NONE SEEN [facility] Comment on above: Performed By: #### SEBASTIÁN SOTELORO #### [facility] [address] [place] [address] Dr. Erlinda Rivera HCV RNA,Quant,PCRon 04-08-20 22 HCV Quant 99,000 IU/mL Normal [facility] Comment on above: Performed By: #### H CVQN #### [facility] [address] [place] [address] School Director: Gee Soriano MD [facility] [address] [place], [place] [id number] School Director: Kelli Martel MD #### CBC, TSH, CP #### [address] [place] [address] School Director: Kelli Martel MD #### HIVCMB, PHEP, TREP, SWCGP, FT4 #### [address] [place] [address] School Director: Gee Soriano MD HCV RNA,Quant Detected Abnormal NOTDET [facility] Comment on above: Result Comment: HCV RNA [...] Department Performed By: #### H CVQN #### [address] [address] School Director: Gee Soriano MD [address] [place] [address] School Director: Kelli Martel MD #### CBC, TSH, CP #### [address] [place] [address] School Director: Kelli Martel MD #### HIVCMB, PHEP, TREP, SWCGP, FT4 #### [facility] [address] [place] [address] School Director: Gee Soriano MD HCV,RNA Log 5.00 Log IU/mL Normal [facility] Comment on above: Performed By: #### H CVQN #### [facility] [address] [place] [address] School Director: Gee Soriano MD [address] [place] [address] School Director: Kelli Martel MD #### CBC, TSH, CP #### [address] [place] [address] School Director: Kelli Martel MD #### HIVCMB, PHEP, TREP, SWCGP, FT4 #### [address] [address] School Director: Gee Soriano MD Chlamydia/GC,DNA Ampon 04-07 Chlamydia Probe Negative Normal NEG [facility] Comment on above: Result Comment: CHLA [...] target. Performed By: #### H CVQN #### [address] [address] School Director: Gee Soriano MD [address] [place] [address] School Director: Kelli Martel MD #### CBC, TSH, CP #### [address] [place] [address] School Director: Kelli Martel MD #### HIVCMB, PHEP, TREP, SWCGP, FT4 #### [address] [address] School Director: Gee Soriano MD Gonorrhea Probe Negative Normal [facility] Comment on above: Result Comment: NEIS SERIA [...] target. Performed By: #### H CVQN #### [address] [address] School Director: Gee Soriano MD [address] [place] [id number] School Director: Kelli Martel MD #### CBC, TSH, CP #### [address] [place], [place] [id number] School Director: Kelli Martel MD #### HIVCMB, PHEP, TREP, SWCGP, FT4 #### [address] [address] School Director: Gee Soriano MD CBCon 04-06-2022 Erythrocyte distribution width (RBC) [Ratio] 12.4 % Normal 11.8-14.4 [facility] Comment on above: Performed By: #### H CVQN #### [address] [address] School Director: Gee Soriano MD [address] [place] [id number] School Director: Kelli Martel MD #### CBC, TSH, CP #### [address] [place], [place] [id number] School Director: Kelli Martel MD #### HIVCMB, PHEP, TREP, SWCGP, FT4 #### [address] [address] School Director: Gee Soriano MD Hematocrit (Bld) [Volume fraction] 39.3 % Normal 36.3-47.1 [facility] Comment on above: Performed By: #### H CVQN #### [address] [address] [address] School Director: Gee Soriano MD [address] [place], [place] [id number] School Director: Kelli Martel MD #### CBC, TSH, CP #### [address] [place], [place] [phone] School Director: Kelli Martel MD #### HIVCMB, PHEP, TREP, SWCGP, FT4 #### [address] [address] School Director: Gee Soriano MD Hemoglobin (Bld) [Mass/Vol] 12.5 g/dL Normal 11.9-15.1 [facility] Comment on above: Performed By: #### H CVQN #### [address] [address] School Director: Gee Soriano MD [address] [place] [id number] School Director: Kelli Martel MD #### CBC, TSH, CP #### [address] [place], [place] 6940083 School Director: Kelli Martel MD #### HIVCMB, PHEP, TREP, SWCGP, FT4 #### [address] [address] School Director: Gee Soriano MD MCH (RBC) [Entitic mass] 33.5 pg Normal 25.2-33.5 [facility] Comment on above: Performed By: #### H CVQN #### [address] [address] School Director: Gee Soriano MD [address] [place], [place] [id number] School Director: Kelli Martel MD #### CBC, TSH, CP #### [address] [place], [place] 6919883 School Director: Kelli Martel MD #### HIVCMB, PHEP, TREP, SWCGP, FT4 #### [address] [address] School Director: Gee Soriano MD MCHC (RBC) [Mass/Vol] 31.8 g/dL Normal 28.4-34.8 [facility] Comment on above: Performed By: #### H CVQN #### [address] [address] School Director: Gee Soriano MD [address] [place] [phone] School Director: Kelli Martel MD #### CBC, TSH, CP #### [address] [place] [phone] School Director: Kelli Martel MD #### HIVCMB, PHEP, TREP, SWCGP, FT4 #### [address] [address] School Director: Gee Soriano MD MCV (RBC) [Entitic vol] 105.4 fL High 82.6-102.9 [facility] Comment on above: Performed By: #### H CVQN #### [address] [address] School Director: Gee Soriano MD [address] [place] [phone] School Director: Kelli Martel MD #### CBC, TSH, CP #### [address] [place], [place] [id number] School Director: Kelli Martel MD #### HIVCMB, PHEP, TREP, SWCGP, FT4 #### [address] [address] School Director: Gee Soriano MD NRBC Automated 0.0 per 100 WBC Normal 0.0 [facility] Comment on above: Performed By: #### H CVQN #### [address] [address] School Director: Gee Soriano MD [address] [place] [address] School Director: Kelli Martel MD #### CBC, TSH, CP #### [address] [place] [phone] School Director: Kelli Martel MD #### HIVCMB, PHEP, TREP, SWCGP, FT4 #### [address] [address] School Director: Gee Soriano MD Platelet mean volume (Bld) [Entitic vol] 10.6 fL Normal 8.1-13.5 [facility] Comment on above: Performed By: #### H CVQN #### [address] [address] School Director: Gee Soriano MD [address] [place] [address] School Director: Kelli Martel MD #### CBC, TSH, CP #### [address] [place] [phone] School Director: Kelli Martel MD #### HIVCMB, PHEP, TREP, SWCGP, FT4 #### [address] [address] School Director: Gee Soriano MD Platelets (Bld) [#/Vol] 280 10*3/uL Normal 138-453 [facility] Comment on above: Performed By: #### H CVQN #### [facility] [address] [place] [address] School Director: Gee Soriano MD [address] [place] [address] School Director: Kelli Martel MD #### CBC, TSH, CP #### [address] [place], [place] [phone] School Director: Kelli Martel MD #### HIVCMB, PHEP, TREP, SWCGP, FT4 #### [address] [address] School Director: Gee Soriano MD RBC (Bld) [#/Vol] 3.73 10*6/uL Low 3.95-5.11 [facility] Comment on above: Performed By: #### H CVQN #### [address] [address] School Director: Gee Soriano MD [address] [place], [place] [phone] School Director: Kelli Martel MD #### CBC, TSH, CP #### [address] [place], [place] 7002083 School Director: Kelli Martel MD #### HIVCMB, PHEP, TREP, SWCGP, FT4 #### [address] [address] School Director: Gee Soriano MD WBC (Bld) [#/Vol] 4.6 10*3/uL Normal 3.5-11.3 [facility] Comment on above: Performed By: #### H CVQN #### [address] [address] School Director: Gee Soriano MD [address] [place] [address] School Director: Kelli Martel MD #### CBC, TSH, CP #### [facility] [address] [place] [address] School Director: Kelli Martel MD #### HIVCMB, PHEP, TREP, SWCGP, FT4 #### [facility] [address] [place] [address] School Director: Gee Soriano MD Hematocrit (Bld) [Volume fraction] 39.3 % 36.3 - 47.1 % [facility] Hemoglobin (Bld) [Mass/Vol] 12.5 g/dL 11.9 - 15.1 g/dL [facility] Interpretation and review of laboratory results Abnormal [facility] MCH (RBC) [Entitic mass] 33.5 pg 25. 2 - 33.5 pg [facility] MCHC [...] [facility] WBC (Bld) [#/Vol] 4.6 10*3/uL [facility] Comp Metabolic Profon 2021 (cont.) Normal [facility] Comment on above: Result Comment: Aver age GFR for 40-49 years old: 99 mL/min/1.73sq m Chronic Kidney Disease: <60 mL/min/1.73sq m Kidney failure: <15 mL/min/1.73sq m eGFR calculated using average adult body mass. Additional eGFR calculator available at: http://www.komoot.My1login/multiple_crcl_2011.htm Performed By: #### H CVQN #### [address] [address] School Director: Gee Soriano MD [address] [place] [phone] School Director: Kelli Martel MD #### CBC, TSH, CP #### [address] [place], [place] [phone] School Director: Kelli Martel MD #### HIVCMB, PHEP, TREP, SWCGP, FT4 #### [address] [address] School Director: Gee Soriano MD Albumin [Mass/Vol] 4.2 g/dL Normal 3.5-5.2 [facility] Comment on above: Performed By: #### H CVQN #### [address] [address] School Director: Gee Soriano MD [address] [place] [phone] School Director: Kelli Martel MD #### CBC, TSH, CP #### [address] [place], [place] 1723183 School Director: Kelli Martel MD #### HIVCMB, PHEP, TREP, SWCGP, FT4 #### [address] [address] School Director: Gee Soriano MD Albumin/Glob Ratio 1.6 Normal 1.0-2.5 [facility] Comment on above: Performed By: #### H CVQN #### [facility] [address] [place] [address] School Director: Gee Soriano MD [address] [place] [address] School Director: Kelli Martel MD #### CBC, TSH, CP #### [address] [place], [place] [phone] School Director: Kelli Martel MD #### HIVCMB, PHEP, TREP, SWCGP, FT4 #### [address] [address] School Director: Gee Soriano MD Alkaline Phos 65 U/L Normal 35-104 [facility] Comment on above: Performed By: #### H CVQN #### [address] [address] School Director: Gee Soriano MD [address] [place] [address] School Director: Kelli Martel MD #### CBC, TSH, CP #### [address] [place] [address] School Director: Kelli Martel MD #### HIVCMB, PHEP, TREP, SWCGP, FT4 #### [address] [address] School Director: Gee Soriano MD ALT [Catalytic activity/Vol] 33 U/L Normal 5-33 [facility] Comment on above: Performed By: #### H CVQN #### [address] [address] School Director: Gee Soriano MD [address] [place], [place] 8017083 School Director: Kelli Martel MD #### CBC, TSH, CP #### [address] [place] [address] School Director: Kelli Martel MD #### HIVCMB, PHEP, TREP, SWCGP, FT4 #### [address] [address] School Director: Gee Soriano MD Anion gap [Moles/Vol] 9 mmol/L Normal 9-17 [facility] Comment on above: Performed By: #### H CVQN #### [address] [address] School Director: Gee Soriano MD [address] [place] [address] School Director: Kelli Martel MD #### CBC, TSH, CP #### [address] [place], [place] 0147583 School Director: Kelli Martel MD #### HIVCMB, PHEP, TREP, SWCGP, FT4 #### [address] [address] School Director: Gee Soriano MD AST [Catalytic activity/Vol] 38 U/L High <32 [facility] Comment on above: Performed By: #### H CVQN #### [address] [address] School Director: Gee Soriano MD [address] [place] [address] School Director: Kelli Martel MD #### CBC, TSH, CP #### [address] [place] [address] School Director: Kelli Martel MD #### HIVCMB, PHEP, TREP, SWCGP, FT4 #### [address] [address] School Director: Gee Soriano MD Bilirubin [Mass/Vol] 0.23 mg/dL Low 0.3-1.2 [facility] Comment on above: Performed By: #### H CVQN #### [facility] [address] [place] [address] School Director: Gee Soriano MD [facility] [address] [place] [address] Dr[address] [place], [place] [phone] School Director: Kelli Martel MD #### CBC, TSH, CP #### [address] [place], [place] 6919883 School Director: Kelli Martel MD #### HIVCMB, PHEP, TREP, SWCGP, FT4 #### [address] [address] School Director: Gee Soriano MD BUN/CRE Ratio 17 Normal 9-20 [facility] Comment on above: Performed By: #### H CVQN #### [address] [address] School Director: Gee Soriano MD [address] [place], [place] [phone] School Director: Kelli Martel MD #### CBC, TSH, CP #### [address] [place], [place] 6752783 School Director: Kelli Martel MD #### HIVCMB, PHEP, TREP, SWCGP, FT4 #### [facility] [address] [place] [address] School Director: Gee Soriano MD Calcium [Mass/Vol] 8.9 mg/dL Normal 8.6-10.4 [facility] Comment on above: Performed By: #### H CVQN #### [address] [address] School Director: Gee Soriano MD [facility] [address] [place] [address] [place] [address] School Director: Kelli Martel MD #### CBC, TSH, CP #### [facility] [address] [place] [address] School Director: Kelli Martel MD #### HIVCMB, PHEP, TREP, SWCGP, FT4 #### [address] [address] School Director: Gee Soriano MD Chloride [Moles/Vol] 106 mmol/L Normal 98-107 [facility] Comment on above: Performed By: #### H CVQN #### [facility] [address] [place] [address] School Director: Gee Soriano MD [address] [place] [address] School Director: Kelli Martel MD #### CBC, TSH, CP #### [address] [place], [place] [phone] School Director: Kelli Martel MD #### HIVCMB, PHEP, TREP, SWCGP, FT4 #### [address] [address] School Director: Gee Soriano MD CO2 [Moles/Vol] 30 mmol/L Normal 20-31 [facility] Comment on above: Performed By: #### H CVQN #### [address] [address] School Director: Gee Soriano MD [facility] [address] [place] [address] [place] [address] School Director: Kelli Martel MD #### CBC, TSH, CP #### [facility] [address] [place] [address] Dr. [place], [place] [phone] School Director: Kelli Martel MD #### HIVCMB, PHEP, TREP, SWCGP, FT4 #### [address] [address] School Director: Gee Soriano MD Creatinine [Mass/Vol] 0.71 mg/dL Normal 0.50-0.90 [facility] Comment on above: Performed By: #### H CVQN #### [address] [address] School Director: Gee Soriano MD [address] [place] [address] School Director: Kelli Martel MD #### CBC, TSH, CP #### [address] [place], [place] [phone] School Director: Kelli Martel MD #### HIVCMB, PHEP, TREP, SWCGP, FT4 #### [address] [address] School Director: Gee Soriano MD GFR, Amer >60 Normal >60 [facility] Comment on above: Performed By: #### H CVQN #### [address] [address] School Director: Gee Soriano MD [address] [place] [phone] School Director: Kelli Martel MD #### CBC, TSH, CP #### [address] [place], [place] [phone] School Director: Kelli Martel MD #### HIVCMB, PHEP, TREP, SWCGP, FT4 #### [address] [address] School Director: Gee Soriano MD GFR,non Amer >60 Normal >60 [facility] Comment on above: Performed By: #### H CVQN #### [facility] [address] [place] [address] School Director: Gee Soriano MD [facility] [address] [place] [address] [place] [address] School Director: Kelli Martel MD #### CBC, TSH, CP #### [facility] [address] [place] [address] [place] [address] School Director: Kelli Martel MD #### HIVCMB, PHEP, TREP, SWCGP, FT4 #### [address] [address] School Director: Gee Soriano MD Glucose [Mass/Vol] 118 mg/dL High 70-99 [facility] Comment on above: Performed By: #### H CVQN #### [address] [address] School Director: Gee Soriano MD [facility] [address] [place] [address] Dr. [place], [place] [phone] School Director: Kelli Martel MD #### CBC, TSH, CP #### [address] [place] [address] School Director: Kelli Martel MD #### HIVCMB, PHEP, TREP, SWCGP, FT4 #### [address] [address] School Director: Gee Soriano MD Potassium [Moles/Vol] 3.9 mmol/L Normal 3.7-5.3 [facility] Comment on above: Performed By: #### H CVQN #### [facility] [address] [place] [address] School Director: Gee Soriano MD [facility] [address] [place] [address] [place] [address] School Director: Kelli Martel MD #### CBC, TSH, CP #### [address] [place] [address] School Director: Kelli Martel MD #### HIVCMB, PHEP, TREP, SWCGP, FT4 #### [address] [address] School Director: Gee Soriano MD Protein [Mass/Vol] 6.8 g/dL Normal 6.4-8.3 [facility] Comment on above: Performed By: #### H CVQN #### [address] [address] School Director: Gee Soriano MD [address] [place], [place] 9376683 School Director: Kelli Martel MD #### CBC, TSH, CP #### [address] [place], [place] [phone] School Director: Kelli Martel MD #### HIVCMB, PHEP, TREP, SWCGP, FT4 #### [place] [address] [place] [address] School Director: Gee Soriano MD Sodium [Moles/Vol] 145 mmol/L High 135-144 [facility] Comment on above: Performed By: #### H CVQN #### [address] [address] School Director: Gee Soriano MD [address] [place] [address] School Director: Kelli Martel MD #### CBC, TSH, CP #### [address] [place], [place] 7783483 School Director: Kelli Martel MD #### HIVCMB, PHEP, TREP, SWCGP, FT4 #### [address] [address] School Director: Gee Soriano MD Staging: Normal [facility] Comment on above: Result Comment: Stag e 1: Some kidney damage normal GFR Stage 2: Mild kidney damage GFR 60-89 Stage 3: Moderate kidney damage GFR 30-59 Stage 4: Severe kidney damage GFR 15-29 Stage 5: Severe kidney damage GFR <15 ESRD - chronic treatment by dialysis or transplant Performed By: #### H CVQN #### [address] [address] School Director: Gee Soriano MD [address] [place] [phone] School Director: Kelli Martel MD #### CBC, TSH, CP #### [address] [place] [phone] School Director: Kelli Martel MD #### HIVCMB, PHEP, TREP, SWCGP, FT4 #### [address] [address] School Director: Gee Soriano MD Urea nitrogen [Mass/Vol] 12 mg/dL Normal 6-20 [facility] Comment on above: Performed By: #### H CVQN #### [address] [address] School Director: Gee Soriano MD [address] [place] [facility]83 School Director: Kelli Martel MD #### CBC, TSH, CP #### [address] [place] [address] School Director: Kelli Martel MD #### HIVCMB, PHEP, TREP, SWCGP, FT4 #### [address] [address] School Director: Gee Soriano MD Comprehensive Metabolic Pane [facility] 04-06-2022 Albumin [Mass/Vol] 4.2 g/dL 3.5 - 5.2 g/dL [facility] Albumin/Globulin [Mass ratio] 1.6 {ratio} [facility] ALP (Bld) [Catalytic activity/Vol] 65 U/L 35 - 104 U/L [facility] ALT [Catalytic activity/Vol] 33 U/L 5 - 33 U/L [facility] Anion gap [Moles/Vol] 9 mmol/L 9 - 17 mmol/L [facility] AST [Catalytic activity/Vol] 38 U/L High <32 [facility] Bilirubin [Mass/Vol] 0.23 mg/dL Low 0.3 - 1 .2 mg/dL [facility] Calcium [Mass/Vol] 8.9 mg/dL 8.6 - 10. 4 mg/dL [facility] Chloride [Moles/Vol] 106 mmol/L 98 - 10 7 mmol/L [facility] CO2 [Moles/Vol] 30 mmol/L 20 - 31 mmol/L [facility] Creatinine [Mass/Vol] 0.71 mg/dL 0.50 - 0.90 mg/dL [facility] Free PSA/Total PSA [Mass fraction] 6.8 g/dL 6.4 - 8.3 g/dL [facility] GFR >60 >60 mL/min [facility] GFR Non- >60 >60 mL/min [facility] Glucose [Mass/Vol] 118 mg/dL High 70 - 99 mg/dL [facility] Interpretation and review of laboratory results Abnormal [facility] Potassium [Moles/Vol] 3.9 mmol/L 3.7 - 5.3 mmol/L [facility] Sodium [Moles/Vol] 145 mmol/L High 135 - 144 mmol/L [facility] Urea nitrogen (BldV) [Mass/Vol] 12 mg/dL 6 - 20 mg/dL [facility] Urea nitrogen/Creatinine (Bld) [Mass ratio] 17 [facility] HCV RNA,Quant,PCRon 04-06-20 22 Source .PLASMA Normal [facility] Comment on above: Performed By: #### H CVQN #### [address] [address] School Director: Gee Soriano MD [facility] [address] [place] [address] [address] [place], [place] [phone] School Director: Kelli Martel MD #### CBC, TSH, CP #### [address] [place] [address] School Director: Kelli Martel MD #### HIVCMB, PHEP, TREP, SWCGP, FT4 #### [address] [address] School Director: Gee Soriano MD HIV Ag/Abon 04-06-2022 HIV Ag/Ab Non-Reactive Normal NR [facility] Comment on above: Result Comment: No l aboratory evidence of HIV infection. If acute HIV infection is suspected, consider testing for HIV-1 RNA. Performed By: #### H CVQN #### [address] [address] School Director: Gee Soriano MD [address] [place], [place] 9306083 School Director: Kelli Martel MD #### CBC, TSH, CP #### [address] [place], [place] [phone] School Director: Kelli Martel MD #### HIVCMB, PHEP, TREP, SWCGP, FT4 #### [address] [address] School Director: Gee Soriano MD HIV Screenon 04-06-2022 HIV Ag/Ab Non-Reactive NONREACTIVE [facility] Comment on above: No laboratory eviden ce of HIV infection. If acute HIV infection is suspected, consider testing for HIV-1 RNA. [facility] Acute [facility] 04-06 Hep A Ab,IgM Non-Reactive Normal NR [facility] Comment on above: Performed By: #### H CVQN #### [address] [address] School Director: Gee Soriano MD [address] [place], [place] [phone] School Director: Kelli Martel MD #### CBC, TSH, CP #### [address] [place], [place] [phone] School Director: Kelli Martel MD #### HIVCMB, PHEP, TREP, SWCGP, FT4 #### [address] [address] School Director: Gee Soriano MD Hep B Core Ab,IgM Non-Reactive Normal [facility] Comment on above: Performed By: #### H CVQN #### [address] [address] School Director: Gee Soriano MD [address] [place] [address] School Director: Kelli Martel MD #### CBC, TSH, CP #### [address] [place], [place] [phone] School Director: Kelli Martel MD #### HIVCMB, PHEP, TREP, SWCGP, FT4 #### [address] [address] School Director: Gee Soriano MD Hep B Surf Ag Non-Reactive Normal [facility] Comment on above: Performed By: #### H CVQN #### [address] [address] School Director: Gee Soriano MD [address] [place] [address] School Director: Kelli Martel MD #### CBC, TSH, CP #### [address] [place], [place] 7971183 School Director: Kelli Martel MD #### HIVCMB, PHEP, TREP, SWCGP, FT4 #### [address] [address] School Director: Gee Soriano MD Hep C Ab Reactive Abnormal NR [facility] Comment on above: Result Comment: [...] Department Performed By: #### H CVQN #### [address] [address] School Director: Gee Soriano MD [address] [place], [place] 2130483 School Director: Kelli Martel MD #### CBC, TSH, CP #### [address] [place], [place] 2246683 School Director: Kelli Martel MD #### HIVCMB, PHEP, TREP, SWCGP, FT4 #### [place] [address] [place] [address] School Director: Gee Soriano MD [facility] Qn (S) Non-Reactive NONREACTIVE [facility] Hep B Core Ab, IgM Non-Reactive NONREACTIVE [facility] Hepatitis B Surface Ag Non-Reactive NONREACTIVE [facility] Hepatitis C Ab Reactive Abnormal NONREACTIVE [facility] Comment on above: The hepatitis [...] Interpretation and review of laboratory results Abnormal [facility] Laboratory - Chemistry and C hemistry - challengeon 04-06-2022 GFR/1.73 sq M.predicted MDRD (S/P/Bld) [Vol rate/Area] [facility] Comment on above: Average GFR for 40-4 9 years old: 99 mL/min/1.73sq m Chronic Kidney Disease: <60 mL/min/1.73sq m Kidney failure: <15 mL/min/1.73sq m eGFR calculated using average adult body mass. Additional eGFR calculator available at: http://www.Sproutling/multiple_crcl_2011.htm Stage 1: Some kidney damage normal GFR Stage 2: Mild kidney damage GFR 60-89 Stage 3: Moderate kidney damage GFR 30-59 Stage 4: Severe kidney damage GFR 15-29 Stage 5: Severe kidney damage GFR <15 ESRD - chronic treatment by dialysis or transplant No Panel Informationon 04-06 [facility] T. pallidum Abon 04-06-2022 T. pallidum, IgG Non-Reactive NONREACTIVE [facility] Comment on above: T. pallidum antibodies are not detected. There is no serological evidence of infection with T. pallidum (early primary syphilis cannot be excluded). Retest in 2-4 weeks if syphilis is clinically suspect. [facility] T.pallidum Ab Screenon 04-06 T.pallidum Ab Screen Non-Reactive Normal NR [facility] Comment on above: Result Comment: T. pallidum antibodies are not detected. There is no serological evidence of infection with T. pallidum (early primary syphilis cannot be excluded). Retest in 2-4 weeks if syphilis is clinically suspect. Performed By: #### H CVQN #### [facility] [employer] [address] [place] [address] School Director: Gee Soriano MD [address] [place] [address] School Director: Kelli Martel MD #### CBC, TSH, CP #### [address] [place] [address] School Director: Kelli Martel MD #### HIVCMB, PHEP, TREP, SWCGP, FT4 #### [address] [address] School Director: Gee Soriano MD T4, Freeon 04-06-2022 Thyroxine, Free 1.13 ng/dL 0.93 - 1.70 ng/dL [facility] TSHon 04-06-2022 TSH Qn 0.77 m[IU]/L [facility] Thyroid Stim. Horm.on 2021 Thyroid Stim. Horm. 0.77 uIU/mL Normal 0.30-5.00 [facility] Comment on above: Performed By: #### H CVQN #### [address] [address] School Director: Gee Soriano MD [facility] [address] [place] [address] [place] [address] School Director: Kelli Martel MD #### CBC, TSH, CP #### [facility] [address] [place] [address] [place] [address] School Director: Kelli Martel MD #### HIVCMB, PHEP, TREP, SWCGP, FT4 #### [address] [address] School Director: Gee Soriano MD Thyroxine, Freeon 04-06-2022 Thyroxine, Free 1.13 ng/dL Normal 0.93-1.70 [facility] Comment on above: Performed By: #### H CVQN #### [facility] [address] [place] [address] School Director: Gee Soriano MD [facility] [address] [place] [address] Dr. [place], [place] [id number] School Director: Kelli Martel MD #### CBC, TSH, CP #### [facility] [address] [place], [place] [phone] School Director: Kelli Martel MD #### HIVCMB, PHEP, TREP, SWCGP, FT4 #### [facility] [address], [place] [id number] School Director: Gee Soriano MD Trichomonas/Wet Prepon 04-06 Trichomonas/Wet Prep Specimen Descriptio n .VAGINAL SPECIMEN Direct Exam NO YEAST OBSERVED NO TRICHOMONAS SEEN NO CLUE CELLS SEEN Report Status FINAL 04/06/2022 Normal [facility] Comment on above: Performed By: #### W P #### [facility] [address] [place] [address] Dr. [place], [place] [id number] School Director: Kelli Martel MD Wet prep, genitalon 04-06-20 Direct Exam NO YEAST OBSERVED [facility] Direct Exam NO TRICHOMONAS SEEN [facility] Direct Exam NO CLUE CELLS SEEN [facility] Specimen Description .VAGINAL SPECIMEN [facility] ER URINE PROFILEon 2 Bilirubin Ql (U) Negative Normal NEGATIVE [facility] Comment on above: Performed By: #### E RUR #### [facility] [address] [place] [address] Dr. Erlinda Rivera Clarity (U) CLEAR Normal CLEAR [facility] Comment on above: Performed By: #### E RUR #### [facility] [address] [address] [address] Erlinda Rivera Color (U) LT. YELLOW Normal YELLOW [facility] Comment on above: Performed By: #### E RUR #### [facility] [address] [place] [address] Dr. Erlinda ALFONSO A micrscopic examination will be performed if indicated. Normal [facility] Comment on above: Performed By: #### E RUR #### [facility] [address] [place] [address] Dr. Erlinda Rivera Glucose Ql (U) Negative Normal NEGATIVE [facility] Comment on above: Performed By: #### E RUR #### [facility] [address] [place] [address] Dr. Erlinda Rivera Hemoglobin Ql (U) Negative Normal NEGATIVE [facility] Comment on above: Performed By: #### E RUR #### [facility] [address] [place] [address] Dr. Erlinda Rivera Ketones Ql (U) Negative Normal NEGATIVE [facility] Comment on above: Performed By: #### E RUR #### [facility] [address] [place] [address] Dr. Erlinda Rivera LEUKOCYTES Negative Normal NEGATIVE [facility] Comment on above: Performed By: #### E RUR #### [facility] [address] [place] [address] Dr. Erlinda Rivera Nitrite Ql (U) Negative Normal NEGATIVE [facility] Comment on above: Performed By: #### E RUR #### [facility] [address] [place] [address] Dr. Erlinda Rivera pH (U) 7.0 [pH] Normal 5-9 [facility] Comment on above: Performed By: #### E RUR #### [facility] [address] [place] [address] Dr. Erlinda Rivera SPEC GRAVITY <=1.005 Abnormal 1.005-<=1.025 [facility] Comment on above: Performed By: #### E RUR #### [facility] [address] [place] [address] Dr. Erlinda Rivera UA PROTEIN Negative Normal NEGATIVE/ TRACE [facility] Comment on above: Performed By: #### E RUR #### [facility] [address] [place] [address] Dr. Erlinda Rivera UR MICRO IND NOT INDICATED Normal [facility] Comment on above: Performed By: #### E RUR #### [facility] [address] [address] [address] Erlinda Rivera Urobilinogen Qn (U) 0.2 {Shannan'U}/dL Normal 0.2 - 1. 0 [facility] Comment on above: Performed By: #### E RUR #### [facility] [address] [place] [address] Dr. Erlinda Rivera XR CHEST 2 Von [...] KAYLA NYE Date: 2022-03-24 22:52 Normal [facility] CBC AUTO DIFFon 03-24-2022 BASO # 0.0 103/ul Normal 0.0-0.1 [facility] Comment on above: Performed By: #### E TH, SALYC, ACET, CMP #### [facility] [address] [place] [address] Dr. Erlinda Rivera Basophils/100 WBC (Bld) 0.4 % Normal 0.2-2.0 [facility] Comment on above: Performed By: #### E TH, SALYC, ACET, CMP #### [facility] [address] [place] [address] Dr. Erlinda Rivera EO # 0.1 103/ul Normal 0.0-0.7 [facility] Comment on above: Performed By: #### E TH, SALYC, ACET, CMP #### [facility] [address] [address] [address] Erlinda Rivera Eosinophils/100 WBC (Bld) 1.8 % Normal 0.9-7.0 [facility] Comment on above: Performed By: #### E TH, SALYC, ACET, CMP #### [facility] [address] [place] [address] Dr. Erlinda Rivera Erythrocyte distribution width (RBC) [Ratio] 12.7 % Normal 11.0-15.0 [facility] Comment on above: Performed By: #### E TH, SALYC, ACET, CMP #### [facility] [address] [place] [address] Dr. Erlinda Rivera Hematocrit (Bld) [Volume fraction] 31.6 % Critically low 36.0-48.0 [facility] Comment on above: Performed By: #### E TH, SALYC, ACET, CMP #### [facility] [address] [place] [address] Dr. Erlinda Rivera Hemoglobin (Bld) [Mass/Vol] 10.4 g/dL Critically low 12.0-16.0 [facility] Comment on above: Performed By: #### E TH, SALYC, ACET, CMP #### [facility] [address] [place] [address] Dr. Erlinda Rivera IG # 0.07 10e3/ul Critically high 0.00-0.03 [facility] Comment on above: Performed By: #### E TH, SALYC, ACET, CMP #### [facility] [address] [place] [address] Dr. Erlinda Rivera IG % 1.2 % Critically high 0.0-0.5 [facility] Comment on above: Performed By: #### E TH, SALYC, ACET, CMP #### [facility] [address] [place] [address] Dr. Erlinda Rivera LYMPH # 1.3 103/ul Normal 1.2-3.8 [facility] Comment on above: Performed By: #### E TH, SALYC, ACET, CMP #### [facility] [address] [place] [address] Dr. Erlinda Rivera Lymphocytes/100 WBC (Bld) 23.4 % Normal 20.5-60.0 [facility] Comment on above: Performed By: #### E TH, SALYC, ACET, CMP #### [facility] [address] [place] [address] Dr. Erlinda Rivera MANUAL DIFF REQ NO Normal [facility] Comment on above: Performed By: #### E TH, SALYC, ACET, CMP #### [facility] [address] [place] [address] Dr. Erlinda Rivera MCH (RBC) [Entitic mass] 33.8 pg Normal 26.7-34.0 [facility] Comment on above: Performed By: #### E TH, SALYC, ACET, CMP #### [facility] [address] [place] [address] Dr. Erlinda Rivera MCHC (RBC) [Mass/Vol] 32.9 g/dL Normal 29.9-35.2 [facility] Comment on above: Performed By: #### E TH, SALYC, ACET, CMP #### [facility] [address] [place] [address] Dr. Erlinda Rivera MCV (RBC) [Entitic vol] 102.6 fL Critically high 81.0-99 .0 [facility] Comment on above: Performed By: #### E TH, SALYC, ACET, CMP #### [facility] [address] [place] [address] Dr. Erlinda Rivera MONO # 0.4 103/ul Normal 0.3-0.8 [facility] Comment on above: Performed By: #### E TH, SALYC, ACET, CMP #### [facility] [address] [place] [address] Dr. Erlinda Rivera Monocytes/100 WBC (Bld) 6.9 % Normal 1.7-12.0 [facility] Comment on above: Performed By: #### E TH, SALYC, ACET, CMP #### [facility] [address] [address] [address] Erlinda Rivera NEUT # 3.8 103/ul Normal 1.4-6.5 [facility] Comment on above: Performed By: #### E TH, SALYC, ACET, CMP #### [facility] [address] [place] [address] Dr. Erlinda Rivera Neutrophils/100 WBC (Bld) 66.3 % Normal 43.0-75.0 [facility] Comment on above: Performed By: #### E TH, SALYC, ACET, CMP #### [facility] [address] [place] [address] Dr. Erlinda Rivera Platelet mean volume (Bld) [Entitic vol] 11.4 fL Normal 9.5-13.5 [facility] Comment on above: Performed By: #### E TH, SALYC, ACET, CMP #### [facility] [address] [place] [address] Dr. Erlinda Rivera PLT 150 103/ul Normal 150-450 [facility] Comment on above: Performed By: #### E , SALYC, ACET, CMP #### [facility] [address] [place] [address] Dr. Erlinda Rivera RBC 3.08 106/ul Critically low 4.20-5.40 [facility] Comment on above: Performed By: #### E TH, SALYC, ACET, CMP #### [facility] [address] [place] [address] Dr. Erlinda Rivera WBC 5.7 103/ul Normal 4.0-11.0 [facility] Comment on above: Performed By: #### E TH, SALYC, ACET, CMP #### [facility] [address] [place] [address] Dr. Erlinda Rivera PROF 14(COMP METB)on 022 Albumin [Mass/Vol] 2.9 g/dL Critically low 3.4-5.0 [facility] Comment on above: Performed By: #### E SEBASTIÁN DE PAZRO #### [facility] [address] [place] [address] Dr. Erlinda Rivera Albumin/Globulin [Mass ratio] 1.0 {ratio} Normal [facility] Comment on above: Performed By: #### GHASSAN SOTELO #### [facility] [address] [place] [address] Dr. Erlinda Rivera ALP [Catalytic activity/Vol] 48 U/L Normal 46-116 [facility] Comment on above: Performed By: #### GHASSAN SOTELO #### [facility] [address] [place] [address] Dr. Erlinda Rivera ALT [Catalytic activity/Vol] 97 U/L Critically high 14-59 [facility] Comment on above: Performed By: #### GHASSAN SOTELO #### [facility] [address] [place] [address] Dr. Erlinda Rivera Anion gap [Moles/Vol] 8.5 mmol/L Normal [facility] Comment on above: Performed By: #### GHASSAN SOTELO #### [facility] [address] [place] [address] Dr. Erlinda Rivera AST [Catalytic activity/Vol] 112 U/L Critically high 15-37 [facility] Comment on above: Performed By: #### GHASSAN SOTELO #### [facility] [address] [place] [address] Dr. Erlinda Rivera Bilirubin [Mass/Vol] 0.2 mg/dL Normal 0.2-1.0 [facility] Comment on above: Performed By: #### GHASSAN SOTELO #### [facility] [address] [place] [address] Dr. Erlinda Rivera Calcium [Mass/Vol] 8.2 mg/dL Critically low 8.5-10.1 Th [facility] Comment on above: Performed By: #### GHASSAN SOTELO #### [facility] [address] [place] [address] Dr. Erlinda Rivera Chloride [Moles/Vol] 106 mmol/L Normal 98-107 [facility] Comment on above: Performed By: #### GHASSAN SOTELO #### [facility] [address] [address] [address] Erlinda Rivera CO2 [Moles/Vol] 29.5 mmol/L Normal 21.0-32.0 [facility] Comment on above: Performed By: #### Sakian DE PAZ, SEBASTIÁNRO #### [facility] [address] [address] [address] Erlinda Rivera Creatinine [Mass/Vol] 0.79 mg/dL Normal 0.55-1.02 [facility] Comment on above: Performed By: #### Sakina DE PAZ, UMICRO #### [facility] [address] [address] [address] Erlinda Rivera EGFR-AF CYMRO >60 Normal >=60 [facility] Comment on above: Performed By: #### Sakina DE PAZ, UMICRO #### [facility] [address] [place] [address] Dr. Erlinda Rivera EGFR-NON AF CYMRO >60 Normal >=60 [facility] Comment on above: Performed By: #### Sakina DE PAZ, UMICRO #### [facility] [address] [address] [address] Erlinda Rivera Globulin (S) [Mass/Vol] 3.0 g/dL Normal [facility] Comment on above: Performed By: #### Sakina DE PAZ, UMICRO #### [facility] [address] [place] [address] Dr. Erlinda Rivera Glucose [Mass/Vol] 86 mg/dL Normal 74-106 [facility] Comment on above: Performed By: #### Sakina DE PAZ, UMICRO #### [facility] [address] [address] [address] Erlinda Rivera Potassium [Moles/Vol] 4.0 mmol/L Normal 3.5-5.1 [facility] Comment on above: Performed By: #### Sakina DE PAZ, UMICRO #### [facility] [address] [place] [address] Dr. Erlinda Rivera Protein [Mass/Vol] 5.9 g/dL Critically low 6.4-8.2 Th [facility] Comment on above: Performed By: #### E RUR, UMICRO #### [facility] [address] [address] [address] Erlinda Rivera Sodium [Moles/Vol] 140 mmol/L Normal 136-145 [facility] Comment on above: Performed By: #### E RUR, UMICRO #### [facility] [address] [address] [address] Erlinda Rivera Urea nitrogen [Mass/Vol] 8.0 mg/dL Normal 7.0-18.0 [facility] Comment on above: Performed By: #### E ZANDRA, UMICRO #### [facility] [address] [address] [address] Erlinda Rivera Urea nitrogen/Creatinine [Mass ratio] 10.1 mg/mg Normal [facility] Comment on above: Performed By: #### Sakina DE PAZ, UMICRO #### [facility] [address] [place] [address] Dr. Erlinda Rivera TSHon 03-24-2022 TSH 1.362 uIU/mL Normal 0.358-3.740 [facility] Comment on above: Performed By: #### E BETTER, UMICRO #### [facility] [address] [place] [address] Dr. Erlinda Rivera Bilirubin Test strip Ql (U)O rdered By: Miah Abreu on 03-21-2022 Bilirubin Ql (U) Negative Negative [facility] Color Auto (U)Ordered By: Haroldo Abreu on 03-21-2022 Color (U) Yellow Yellow [facility] Ketones Auto test strip (U) [Mass/Vol]Ordered By: Miah Abreu on 03-21-2022 Ketones (U) [Mass/Vol] Negative Negative [facility] Nitrite Test strip Ql (U)Ord ered By: Miah Abreu on 03-21-2022 Nitrite Ql (U) Negative Negative [facility] Protein Auto test strip (U) [Mass/Vol]Ordered By: Miah Abreu on 03-21-2022 Protein (U) [Mass/Vol] Negative Negative [facility] Specific gravity Auto test s trip (U) [Rel density]Ordered By: Miah Abreu on 03-21-2022 Specific gravity (U) [Rel density] 1.003 1.001-1.030 [facility] Urine clarity by refractomet ry automatedOrdered By: Miah Abreu on 03-21-2022 Clarity Refractometry automated (U) Clear Clear [facility] Urine glucose measurement by automated test strip (mass/volume)Ordered By: Miah Abreu on 03-21-2022 Glucose Auto test strip (U) [Mass/Vol] Normal mg/dL Normal [facility] Urine hemoglobin detection b y automated test stripOrdered By: Miah Abreu on 03-21-2022 Hemoglobin Auto test strip Ql (U) Negative Negative [facility] Urine leukocyte esterase det ection by automated test stripOrdered By: Miah Abreu on 03-21-2022 Leukocyte esterase Auto test strip Ql (U) Negative Negative [facility] Urobilinogen Auto test strip (U) [Mass/Vol]Ordered By: Miah Abreu on 03-21-2022 Urobilinogen (U) [Mass/Vol] Normal mg/dL Normal [facility] pH Auto test strip (U)Ordere d By: Miah Abreu on 03-21-2022 pH (U) 6.0 [pH] 5.0-9.0 [facility] Cholesterol [Mass/volume] in Serum or PlasmaOrdered By: Miah Abreu on 03-20-2022 Cholesterol [Mass/Vol] 175 mg/dL 140-200 [facility] Comment on above: Chol less than 200 m g/dl low risk Chol 201-239 mg/dl borderline risk Chol 240 mg/dl and greater high risk Cholesterol in LDL Calc [Mas s/Vol]Ordered By: Miah Abreu on 03-20-2022 Cholesterol in LDL [Mass/Vol] 117 mg/dL 0-100 [facility] Comment on above: LDL ATP III CLASSIFI CATION LDL less than 100 mg/dL Optimal LDL 100-129 mg/dL Near or above optimal LDL 130-159 mg/dL Borderline high LDL 160-189 mg/dL High LDL greater than 189 mg/dL Very high Cholesterol in VLDL Calc [Ma ss/Vol]Ordered By: Miah Abreu on 03-20-2022 Cholesterol in VLDL [Mass/Vol] 16 mg/dL [facility] No Panel InformationOrdered By: Miah Abreu on 03-20-2022 25-Hydroxy Vitamin D Total 40.0 ng/mL 30-100 [facility] Comment on above: VITAMIN D [...] Cholesterol in HDL [Mass/Vol] 42 mg/dL 35-85 [facility] Comment on above: HDL CHOL ATP-III CLA SSIFICATION Cardiovascular Risk HDL > or equal to 60 mg/dL LOW HDL < 40 mg/dL HIGH Serum or plasma total choles terol/high density lipoprotein (HDL) cholesterol mass ratOrdered By: Miah Abreu on 03-20-2022 Cholesterol.total/Choles terol in HDL [Mass ratio] 4.2 {ratio} <5.0 [facility] TSH DL <= 0.005 mIU/L QnOrde red By: Miah Abreu on 03-20-2022 TSH Qn 1.08 m[IU]/L 0.45-5.33 [facility] Triglyceride [Mass/volume] i n Serum or PlasmaOrdered By: Miah Abreu on 03-20-2022 Triglyceride [Mass/Vol] 81 mg/dL 35-149 [facility] Comment on above: TRIG ATP III CLASSIF ICATION TRIG less than 150 mg/dL Normal TRIG 150-199 mg/dL Borderline high TRIG 200-500 mg/dL High TRIG greater than 500 mg/dL Very high Standard traceable to the Center for Disease Conrtrol and Prevention (CDC) test method. ACETAMINOPHENon 03-19-2022 Acetaminophen [Mass/Vol] ug/mL Critically low 10.0-30 .0 [facility] Comment on above: Performed By: #### E GHASSAN DE PAZ #### [facility] [address] [place] [address] Dr. Erlinda Rivera CBC AUTO DIFFon 03-19-2022 BASO # 0.1 103/ul Normal 0.0-0.1 [facility] Comment on above: Performed By: #### C VDTBH #### [facility] [address] [place] [address] Dr. Erlinda Rivera Basophils/100 WBC (Bld) 0.6 % Normal 0.2-2.0 [facility] Comment on above: Performed By: #### C VDTBH #### [facility] [address] [place] [address] Dr. Erlinda Rivera EO # 0.1 103/ul Normal 0.0-0.7 [facility] Comment on above: Performed By: #### C VDTBH #### [facility] [address] [place] [address] Dr. Erlinda Rivera Eosinophils/100 WBC (Bld) 0.7 % Critically low 0.9-7.0 [facility] Comment on above: Performed By: #### C VDTBH #### [facility] [address] [place] [address] Dr. Erlinda Rivera Erythrocyte distribution width (RBC) [Ratio] 12.2 % Normal 11.0-15.0 [facility] Comment on above: Performed By: #### C VDTBH #### [facility] [address] [place] [address] Dr. Erlinda Rivera Hematocrit (Bld) [Volume fraction] 39.5 % Normal 36.0-48.0 [facility] Comment on above: Performed By: #### C VDTBH #### [facility] [address] [place] [address] Dr. Erlinda Rivera Hemoglobin (Bld) [Mass/Vol] 13.2 g/dL Normal 12.0-16.0 [facility] Comment on above: Performed By: #### C VDTBH #### [facility] [address] [place] [address] Dr. Erlinda Rivera IG # 0.03 10e3/ul Normal 0.00-0.03 [facility] Comment on above: Performed By: #### C VDTBH #### [facility] [address] [place] [address] Dr. Erlinda Rivera IG % 0.3 % Normal 0.0-0.5 [facility] Comment on above: Performed By: #### C VDTBH #### [facility] [address] [place] [address] Dr. Erlinda Rivera LYMPH # 2.5 103/ul Normal 1.2-3.8 [facility] Comment on above: Performed By: #### C VDTBH #### [facility] [address] [place] [address] Dr. Erlinda Rivera Lymphocytes/100 WBC (Bld) 26.9 % Normal 20.5-60.0 [facility] Comment on above: Performed By: #### C VDTBH #### [facility] [address] [place] [address] Dr. Erlinda Rivera MANUAL DIFF REQ NO Normal [facility] Comment on above: Performed By: #### C VDTBH #### [facility] [address] [place] [address] Dr. Erlinda Rivera MCH (RBC) [Entitic mass] 34.3 pg Critically high 26.7-3 4.0 [facility] Comment on above: Performed By: #### C VDTBH #### [facility] [address] [place] [address] Dr. Erlinda Rivera MCHC (RBC) [Mass/Vol] 33.4 g/dL Normal 29.9-35.2 [facility] Comment on above: Performed By: #### C VDTBH #### [facility] [address] [place] [address] Dr. Erlinda Rivera MCV (RBC) [Entitic vol] 102.6 fL Critically high 81.0-99 .0 [facility] Comment on above: Performed By: #### C VDTBH #### [facility] [address] [address] [address] Erlinda Rivera MONO # 0.8 103/ul Normal 0.3-0.8 [facility] Comment on above: Performed By: #### C VDTBH #### [facility] [address] [place] [address] Dr. Erlinda Rivera Monocytes/100 WBC (Bld) 8.7 % Normal 1.7-12.0 [facility] Comment on above: Performed By: #### C VDTBH #### [facility] [address] [place] [address] Dr. Erilnda Rivera NEUT # 5.9 103/ul Normal 1.4-6.5 [facility] Comment on above: Performed By: #### C VDTBH #### [facility] [address] [place] [address] Dr. Erlinda Rivera Neutrophils/100 WBC (Bld) 62.8 % Normal 43.0-75.0 [facility] Comment on above: Performed By: #### C VDTBH #### [facility] [address] [place] [address] Dr. Erlinda Rivera Platelet mean volume (Bld) [Entitic vol] 10.6 fL Normal 9.5-13.5 [facility] Comment on above: Performed By: #### C VDTBH #### [facility] [address] [place] [address] Dr. Erlinda Rivera PLT 213 103/ul Normal 150-450 [facility] Comment on above: Performed By: #### C VDTBH #### [facility] [address] [place] [address] Dr. Erlinda Rivera RBC 3.85 106/ul Critically low 4.20-5.40 [facility] Comment on above: Performed By: #### C VDTBH #### [facility] [address] [place] [address] Dr. Erlinda Rivera WBC 9.3 103/ul Normal 4.0-11.0 [facility] Comment on above: Performed By: #### C VDTBH #### [facility] [address] [address] [address] CHEST W CONon 03-19-2022 CT CHEST W CON EXAMINATION: CT CHEST W CON, CT ABD/PELV W CON HISTORY: [...] by: MARIPOSA MARTIN Date: 2022-03-19 05:08 Normal [facility] CT CSPINE WO CONon 2 CT CSPINE [...] by: MARIMAR VIVAS Date: 2022-03-19 04:45 Normal [facility] CT FACIAL BONES WO CONon CT FACIAL [...] MARIMAR VIVAS Date: 2022-03-19 04:34 Normal [facility] CT HEAD WO CONon 03-19-2022 CT HEAD [...] MARIMAR VIVAS Date: 2022-03-19 04:30 Normal [facility] Covid-19 PCR (CVDTB)on 03-03 SARS-CoV-2 (COVID-19) RNA TISHA+probe Ql (Unsp spec) Not detected Normal NOT DETECTED [facility] Comment on above: Result Comment: When diagnostic [...] for this test is supported by the Policy Checker of Health and Human Service's declaration that [...] #### E TH, SALYC, ACET, CMP #### [facility] [address] [place] [address] Dr. Erlinda Rivera DRUG SCREEN RAPID (URINE)on 03-19-2022 AMP Positive Abnormal NEGATIVE [facility] Comment on above: Performed By: #### E RUR, UMICRO #### [facility] [address] [place] [address] Dr. Erlinda Rivera BAR Negative Normal NEGATIVE [facility] Comment on above: Performed By: #### E RUR, UMICRO #### [facility] [address] [place] [address] Dr. Erlinda Rivera BUP Negative Normal NEGATIVE [facility] Comment on above: Performed By: #### E RUR, UMICRO #### [facility] [address] [place] [address] Dr. Erlinda Rivera BZO Positive Abnormal NEGATIVE [facility] Comment on above: Performed By: #### E RUR, UMICRO #### [facility] [address] [place] [address] Dr. Erlinda Rivera DOUGLAS Positive Abnormal NEGATIVE [facility] Comment on above: Performed By: #### E RUR, UMICRO #### [facility] [address] [place] [address] Dr. Erlinda Rivera CUT-OFFS SEE BELOW Normal [facility] Comment on above: Result Comment: AMP (Amphetamine): 500ng/mL, BAR (Barbituates): 200 ng/mL, BZO (Benzodiazepines): 150 ng/mL, BUP (Buprenorphine): 10 ng/mL, DOUGLAS (Cocaine): 150 ng/mL, mAMP (Methamphetamine): 500 ng/mL, MTD (Methadone): 200 ng/mL, OPI (Opiates): 100 ng/mL, OXY (Oxycodone): 100 ng/mL, PCP (Phencyclidine): 25 ng/mL, PPX (Propoxyphene): 300 ng/mL, THC (Cannabinoids): 50 ng/mL, TCA (Trycyclic Antidepressants): 300 ng/mL Performed By: #### Sakina DE PAZ UMICRO #### [facility] [address] [place] [address] Dr. Erlinda Rivera DRUG CUT HEADER DRUG CLASS TEST SYSTEM CUT-OFF CONCENTRATIONS ARE FOLLOWS: Normal [facility] Comment on above: Performed By: #### Sakina DE PAZ UMICRO #### [facility] [address] [place] [address] Dr. Erlinda Rivera mAMP Positive Abnormal NEGATIVE [facility] Comment on above: Performed By: #### Sakina DE PAZ UMICRO #### [facility] [address] [place] [address] Dr. Erlinda Rivera MTD Negative Normal NEGATIVE [facility] Comment on above: Performed By: #### Sakina DE PAZ UMICRO #### [facility] [address] [place] [address] Dr. Erlinda Rivera OPI Positive Abnormal NEGATIVE [facility] Comment on above: Performed By: #### Sakina DE PAZ UMICRO #### [facility] [address] [place] [address] Dr. Erlinda Rivera OXY Negative Normal NEGATIVE [facility] Comment on above: Performed By: #### Sakina DE PAZ UMICRO #### [facility] [address] [place] [address] Dr. Erlinda Rivera PCP Negative Normal NEGATIVE [facility] Comment on above: Performed By: #### Sakina DE PAZ UMICRO #### [facility] [address] [place] [address] Dr. Erlinda Rivera PPX Negative Normal NEGATIVE [facility] Comment on above: Performed By: #### E RUR, UMICRO #### [facility] [address] [place] [address] Dr. Erlinda Rivera TCA Negative Normal NEGATIVE [facility] Comment on above: Performed By: #### Sakina DE PAZ UMICRO #### [facility] [address] [place] [address] Dr. Erlinda Rivera THC Positive Abnormal NEGATIVE [facility] Comment on above: Performed By: #### Sakina DE PAZ UMICRO #### [facility] [address] [place] [address] Dr. Erlinda Rivera ER URINE PROFILEon 2 Bilirubin Ql (U) Negative Normal NEGATIVE [facility] Comment on above: Performed By: #### Sakina DE PAZ UMICRO #### [facility] [address] [place] [address] Dr. Erlinda Rivera Clarity (U) CLEAR Normal CLEAR [facility] Comment on above: Performed By: #### Sakina DE PAZ UMICRO #### [facility] [address] [place] [address] Dr. Erlinda Rivera Color (U) YELLOW Normal YELLOW [facility] Comment on above: Performed By: #### SEBASTIÁN SOTELORO #### [facility] [address] [place] [address] Dr. Erlinda ALFONSO A micrscopic examination will be performed if indicated. Normal [facility] Comment on above: Performed By: #### ESTHER SOTELOICRO #### [facility] [address] [place] [address] Dr. Erlinda Rivera Glucose Ql (U) Negative Normal NEGATIVE [facility] Comment on above: Performed By: #### Sakina DE PAZ UMICRO #### [facility] [address] [place] [address] Dr. Erlinda Rivera Hemoglobin Ql (U) Negative Normal NEGATIVE [facility] Comment on above: Performed By: #### Sakina DE PAZ UMICRO #### [facility] [address] [place] [address] Dr. Erlinda Rivera Ketones Ql (U) Negative Normal NEGATIVE [facility] Comment on above: Performed By: #### SEBASTIÁN SOTELORO #### [facility] [address] [place] [address] Dr. Erlinda Rivera LEUKOCYTES Negative Normal NEGATIVE [facility] Comment on above: Performed By: #### Sakina DE PAZ UMICRO #### [facility] [address] [place] [address] Dr. Erlinda Rivera Nitrite Ql (U) Negative Normal NEGATIVE [facility] Comment on above: Performed By: #### ESTHER SOTELOICRO #### [facility] [address] [place] [address] Dr. Erlinda Rivera pH (U) 5.5 [pH] Normal 5-9 [facility] Comment on above: Performed By: #### SEBASTIÁN SOTELORO #### [facility] [address] [place] [address] Dr. Erlinda Rivera SPEC GRAVITY 1.010 Normal 1.005-<=1.025 [facility] Comment on above: Performed By: #### SEBASTIÁN SOTELORO #### [facility] [address] [place] [address] Dr. Erlinda Rivera UA PROTEIN Negative Normal NEGATIVE/ TRACE [facility] Comment on above: Performed By: #### SEBASTIÁN SOTELORO #### [facility] [address] [place] [address] Dr. Erlinda Rivera UR MICRO IND NOT INDICATED Normal [facility] Comment on above: Performed By: #### SEBASTIÁN SOTELORO #### [facility] [address] [place] [address] Dr. Erlinda Rivera Urobilinogen Qn (U) 0.2 {Shannan'U}/dL Normal 0.2 - 1. 0 [facility] Comment on above: Performed By: #### SEBASTIÁN SOTELORO #### [facility] [address] [place] [address] Dr. Erlinda Rivera ETHANOL (BLD ALC)on 03-19-20 ALC NOTE NOTE: 80 mg/dl is the legal limit for a blood alcohol level Normal [facility] Comment on above: Performed By: #### E TH, SALYC, ACET, CMP #### [facility] [address] [address] [address] Erlinda Rivera Ethanol [Mass/Vol] mg/dL Normal [facility] Comment on above: Performed By: #### E TH, SALYC, ACET, CMP #### [facility] [address] [address] [address] Erlinda Rivera PREG HCG QUALon 03-19-2022 , QUAL Negative Normal NEGATIVE [facility] Comment on above: Performed By: #### E TH, SALYC, ACET, CMP #### [facility] [address] [address] [address] Erlinda Rivera PROF 14(COMP METB)on 022 Albumin [Mass/Vol] 4.0 g/dL Normal 3.4-5.0 [facility] Comment on above: Performed By: #### GHASSAN SOTELO #### [facility] [address] [place] [address] Dr. Erlinda Rivera Albumin/Globulin [Mass ratio] 1.2 {ratio} Normal [facility] Comment on above: Performed By: #### GHASSAN SOTELO #### [facility] [address] [place] [address] Dr. Erlinda Rivera ALP [Catalytic activity/Vol] 53 U/L Normal 46-116 [facility] Comment on above: Performed By: #### GHASSAN SOTELO #### [facility] [address] [place] [address] Dr. Erlinda Rivera ALT [Catalytic activity/Vol] 77 U/L Critically high 14-59 [facility] Comment on above: Performed By: #### GHASSAN SOTELO #### [facility] [address] [place] [address] Dr. Erlinda Rivera Anion gap [Moles/Vol] 8.9 mmol/L Normal [facility] Comment on above: Performed By: #### GHASSAN SOTELO #### [facility] [address] [place] [address] Dr. Erlinda Rivera AST [Catalytic activity/Vol] 75 U/L Critically high 15-37 [facility] Comment on above: Performed By: #### GHASSAN SOTELO #### [facility] [address] [place] [address] Dr. Erlinda Rivera Bilirubin [Mass/Vol] 0.8 mg/dL Normal 0.2-1.0 [facility] Comment on above: Performed By: #### SEBASTIÁN SOTELORO #### [facility] [address] [place] [address] Dr. Erlinda Rivera Calcium [Mass/Vol] 8.7 mg/dL Normal 8.5-10.1 [facility] Comment on above: Performed By: #### SEBASTIÁN SOTELORO #### [facility] [address] [place] [address] Dr. Erlinda Rivera Chloride [Moles/Vol] 103 mmol/L Normal 98-107 [facility] Comment on above: Performed By: #### SEBASTIÁN SOTELORO #### [facility] [address] [place] [address] Dr. Erlinda Rivera CO2 [Moles/Vol] 30.9 mmol/L Normal 21.0-32.0 [facility] Comment on above: Performed By: #### SEBASTIÁN SOTELORO #### [facility] [address] [place] [address] Dr. Erlinda Rivera Creatinine [Mass/Vol] 0.90 mg/dL Normal 0.55-1.02 [facility] Comment on above: Performed By: #### SEBASTIÁN SOTELORO #### [facility] [address] [place] [address] Dr. Erlinda Rivera EGFR-AF CYMRO >60 Normal >=[address] [facility] Comment on above: Performed By: #### SEBASTIÁN SOTELORO #### [facility] [address] [place] [address] Dr. Erlinda Rivera EGFR-NON AF CYMRO >60 Normal >=60 [facility] Comment on above: Performed By: #### E RUR, UMICRO #### [facility] [address] [address] [address] Erlinda Rivera Globulin (S) [Mass/Vol] 3.4 g/dL Normal [facility] Comment on above: Performed By: #### E ZANDRA, UMICRO #### [facility] [address] [address] [address] Erlinda Rivera Glucose [Mass/Vol] 128 mg/dL Critically high 74-106 [facility] Comment on above: Performed By: #### E ZANDRA, UMICRO #### [facility] [address] [place] [address] Dr. Erlinda Rivera Potassium [Moles/Vol] 3.8 mmol/L Normal 3.5-5.1 [facility] Comment on above: Performed By: #### Sakina DE PAZ, UMICRO #### [facility] [address] [place] [address] Dr. Erlinda Rivera Protein [Mass/Vol] 7.4 g/dL Normal 6.4-8.2 [facility] Comment on above: Performed By: #### Sakina DE PAZ, UMICRO #### [facility] [address] [place] [address] Dr. Erlinda Rivera Sodium [Moles/Vol] 139 mmol/L Normal 136-145 [facility] Comment on above: Performed By: #### Sakina DE PAZ, UMICRO #### [facility] [address] [place] [address] Dr. Erlinda Rivera Urea nitrogen [Mass/Vol] 7.0 mg/dL Normal 7.0-18.0 [facility] Comment on above: Performed By: #### Sakina DE PAZ, UMICRO #### [facility] [address] [place] [address] Dr. Erlinda Rivera Urea nitrogen/Creatinine [Mass ratio] 7.8 mg/mg Normal [facility] Comment on above: Performed By: #### Sakina DE PAZ, UMICRO #### [facility] [address] [place] [address] Dr. Erlinda Rivera SALICYLATEon 03-19-2022 SALICYLATE <2.8 Normal <=19.9 [facility] Comment on above: Performed By: #### E GHASSAN DE PAZ #### [facility] [address] [address] [address] Erlinda Rivera XR CHEST 1 Von [...] by: MARIPOSA MARTIN Date: 2022-03-19 04:21 Normal [facility] Vital Signs Date Time Vital Sign Value Performing Clinician Facility 02-20-2025 [id number] Body height 157.5 cm Michelle Niels [employer] Work Phone: [facility] 02-20-2025 [id number] Body mass index (BMI) [Ratio] 33.14 kg/m2 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 [employer] Work Phone: [facility] 02-20-2025 09:11-0400 Body temperature 97.81 [degF] 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 [employer] Work Phone: [facility] 02-20-2025 09:11-0400 Body weight 82.19 kg 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 [employer] Work Phone: [facility] 02-20-2025 [id number] Diastolic blood pressure 70 mm[Hg] 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 [employer] Work Phone: [facility] 02-20-2025 09:11-0400 Heart rate 73 /min 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 [employer] Work Phone: [facility] 02-20-2025 09:11-0400 SaO2% (BldA) [Mass fraction] 98 % 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 APRN-SENIOR LABORATORY TECHNICIAN Work Phone: [facility] 02-20-2025 09:11-0400 Systolic blood pressure 112 mm[Hg] 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 APRN-SENIOR LABORATORY TECHNICIAN Work Phone: [facility] 12-18-2024 11:23-0400 Body mass index (BMI) [Ratio] 34.39 kg/m2 Gelacio Jacome DO Work Phone: [facility] 12-18-2024 11:23-0400 Body temperature 98.2 [degF] Gelacio Jacome DO Work Phone: [facility] 12-18-2024 11:23-0400 Body weight 85.28 kg Gelacio Popkaris DO Work Phone: [facility] 12-18-2024 11:23-0400 Diastolic blood pressure 84 mm[Hg] Gelacio Popkaris DO Work Phone: [facility] 12-18-2024 11:23-0400 Heart rate 92 /min Gelacio Rodrigo DO Work Phone: [facility] 12-18-2024 11:23-0400 SaO2% (BldA) [Mass fraction] 98 % Gelacio Popkaris DO Work Phone: [facility] 12-18-2024 11:23-0400 Systolic blood pressure 124 mm[Hg] Gelacio Popkaris DO Work Phone: [facility] 12-03-2024 08:51-0500 Body weight 80.64 kg [facility] 12-03-2024 07:30-0500 Body temperature 97.6 [degF] [facility] 12-03-2024 07:30-0500 Diastolic blood pressure 72 mm[Hg] [facility] 12-03-2024 07:30-0500 Heart rate 56 /min [facility] 12-03-2024 07:30-0500 Respiratory rate 16 /min [facility] 12-03-2024 07:30-0500 SaO2% (BldA) [Mass fraction] 98 % [facility] 12-03-2024 07:30-0500 Systolic blood pressure 125 mm[Hg] [facility] 12-01-2024 19:55-0500 Body temperature 98 [degF] 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 MEDIA STRATEGIST-C Work Phone: [facility] 12-01-2024 19:55-0500 Diastolic blood pressure 68 mm[Hg] 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 MEDIA STRATEGIST-C Work Phone: [facility] 12-01-2024 19:55-0500 Heart rate 69 /min 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 MEDIA STRATEGIST-C Work Phone: [facility] 12-01-2024 19:55-0500 Respiratory rate 16 /min 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 MEDIA STRATEGIST-C Work Phone: [facility] 12-01-2024 19:55-0500 SaO2% (BldA) [Mass fraction] 95 % 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 MEDIA STRATEGIST-C Work Phone: [facility] 12-01-2024 19:55-0500 Systolic blood pressure 112 mm[Hg] 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 MEDIA STRATEGIST-C Work Phone: [facility] 11-30-2024 18:00-0500 Body height 157.48 cm 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 MEDIA STRATEGIST-C Work Phone: [facility] 11-30-2024 18:00-0500 Body weight 80.64 kg 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 MEDIA STRATEGIST-C Work Phone: [facility] 07-17-2024 07:30-0400 Body temperature 97.6 [degF] [facility] 07-17-2024 07:30-0400 Diastolic blood pressure 80 mm[Hg] [facility] 07-17-2024 07:30-0400 Heart rate 69 /min [facility] 07-17-2024 07:30-0400 Respiratory rate 16 /min [facility] 07-17-2024 07:30-0400 SaO2% (BldA) [Mass fraction] 97 % [facility] 07-17-2024 07:30-0400 Systolic blood pressure 116 mm[Hg] [facility] 07-16-2024 14:55-0400 Body height 157.48 cm [facility] 07-16-2024 09:00-0400 Body weight 87.99 kg [facility] 01-20-2024 07:30-0400 Body temperature 97.6 [degF] MEDIA STRATEGIST-C 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 Work Phone: [facility] 01-20-2024 07:30-0400 Diastolic blood pressure 69 mm[Hg] MEDIA STRATEGIST-C 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 Work Phone: [facility] 01-20-2024 07:30-0400 Heart rate 70 /min MEDIA STRATEGIST-C 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 Work Phone: [facility] 01-20-2024 07:30-0400 Respiratory rate 18 /min MEDIA STRATEGIST-C 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 Work Phone: [facility] 01-20-2024 07:30-0400 SaO2% (BldA) [Mass fraction] 97 % MEDIA STRATEGIST-C 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 Work Phone: [facility] 01-20-2024 07:30-0400 Systolic blood pressure 104 mm[Hg] MEDIA STRATEGIST-C 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 Work Phone: [facility] 01-18-2024 14:08-0400 Body height 157.48 cm MEDIA STRATEGIST-C 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 Work Phone: [facility] 01-18-2024 04:17-0400 Body weight 90.71 kg MEDIA STRATEGIST-C 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 Work Phone: [facility] 10-13-2023 08:30-0500 Diastolic blood pressure 72 mm[Hg] [facility] 10-13-2023 08:30-0500 Systolic blood pressure 129 mm[Hg] [facility] 10-13-2023 07:30-0500 Body temperature 97.9 [degF] [facility] 10-13-2023 07:30-0500 Heart rate 102 /min [facility] 10-13-2023 07:30-0500 SaO2% (BldA) [Mass fraction] 95 % [facility] 10-12-2023 19:48-0500 Respiratory rate 18 /min [facility] 10-11-2023 09:40-0500 Body height 157.48 cm [facility] 10-10-2023 12:19-0500 Body weight 94.34 kg [facility] 08-26-2023 07:30-0500 Body temperature 97.9 [degF] [facility] 08-26-2023 07:30-0500 Diastolic blood pressure 87 mm[Hg] [facility] 08-26-2023 07:30-0500 Heart rate 83 /min [facility] 08-26-2023 07:30-0500 Respiratory rate 16 /min [facility] 08-26-2023 07:30-0500 SaO2% (BldA) [Mass fraction] 97 % [facility] 08-26-2023 07:30-0500 Systolic blood pressure 134 mm[Hg] [facility] 08-24-2023 14:51-0500 Body height 157.48 cm [facility] 08-24-2023 01:08-0500 Body weight 97.52 kg [facility] 05-11-2023 14:45-0400 Body height 157.48 cm Enrico Alcazar II Other [employer] Other 05-11-2023 14:45-0400 Body mass index (BMI) [Ratio] 36.1 kg/m2 Enrico Houston II Other [employer] Other 05-11-2023 14:45-0400 Body weight 89.54 kg Enrico Alcazar II Other [facility] [employer] Other 05-01-2023 07:24-0400 Body temperature 97.9 [degF] MD Miah Abreu Work Phone: [facility] 05-01-2023 07:24-0400 Diastolic blood pressure 91 mm[Hg] MD Miah Abreu Work Phone: [facility] 05-01-2023 07:24-0400 Heart rate 86 /min MD Miah Abreu Work Phone: [facility] 05-01-2023 07:24-0400 Respiratory rate 16 /min MD Miah Abreu Work Phone: [facility] 05-01-2023 07:24-0400 SaO2% (BldA) [Mass fraction] 94 % MD Miah Abreu Work Phone: [facility] 05-01-2023 07:24-0400 Systolic blood pressure 141 mm[Hg] MD Miah Abreu Work Phone: [facility] 04-25-2023 15:03-0400 Body height 157.48 cm MD Miah Abreu Work Phone: [facility] 04-25-2023 09:00-0400 Body weight 91.98 kg MD Miah Abreu Work Phone: [facility] 04-17-2023 07:30-0400 Body temperature 98 [degF] MD Miah Abreu Work Phone: [facility] 04-17-2023 07:30-0400 Diastolic blood pressure 92 mm[Hg] MD Miah Abreu Work Phone: [facility] 04-17-2023 07:30-0400 Heart rate 84 /min MD Miah Abreu Work Phone: [facility] 04-17-2023 07:30-0400 Respiratory rate 17 /min MD Miah Abreu Work Phone: [facility] 04-17-2023 07:30-0400 SaO2% (BldA) [Mass fraction] 97 % MD Miah Abreu Work Phone: [facility] 04-17-2023 07:30-0400 Systolic blood pressure 126 mm[Hg] MD Miah Abreu Work Phone: [facility] 04-13-2023 14:37-0400 Body height 157.48 cm MD Miah Abreu Work Phone: [facility] 04-13-2023 07:57-0400 Body weight 87.54 kg MD Miah Abreu Work Phone: [facility] 09-01-2022 07:30-0500 Body temperature 97.7 [degF] [facility] 09-01-2022 07:30-0500 Diastolic blood pressure 83 mm[Hg] [facility] 09-01-2022 07:30-0500 Heart rate 78 /min [facility] 09-01-2022 07:30-0500 Respiratory rate 16 /min [facility] 09-01-2022 07:30-0500 SaO2% (BldA) [Mass fraction] 96 % [facility] 09-01-2022 07:30-0500 Systolic blood pressure 132 mm[Hg] [facility] 08-30-2022 15:01-0500 Body height 157.48 cm [facility] 08-30-2022 12:17-0500 Body weight 86.22 kg [facility] 06-12-2022 07:30-0400 Body temperature 97.6 [degF] [facility] 06-12-2022 07:30-0400 Diastolic blood pressure 68 mm[Hg] [facility] 06-12-2022 07:30-0400 Heart rate 76 /min [facility] 06-12-2022 07:30-0400 Respiratory rate 18 /min [facility] 06-12-2022 07:30-0400 SaO2% (BldA) [Mass fraction] 98 % [facility] 06-12-2022 07:30-0400 Systolic blood pressure 105 mm[Hg] [facility] 06-08-2022 14:29-0400 Body height 157.48 cm [facility] 06-07-2022 09:00-0400 Body weight 81.8 kg [facility] 03-23-2022 07:30-0400 Body temperature 97.6 [degF] [facility] 03-23-2022 07:30-0400 Diastolic blood pressure 79 mm[Hg] [facility] 03-23-2022 07:30-0400 Heart rate 76 /min [facility] 03-23-2022 07:30-0400 Respiratory rate 16 /min [facility] 03-23-2022 07:30-0400 SaO2% (BldA) [Mass fraction] 95 % [facility] 03-23-2022 07:30-0400 Systolic blood pressure 118 mm[Hg] [facility] 03-22-2022 16:06-0400 Body height 157.48 cm [facility] 03-22-2022 14:29-0400 Body weight 83 kg [facility] 03-19-2022 14:20-0400 Body mass index (BMI) [Ratio] 29.6 kg/m2 [facility] 07-05-2019 07:38-0400 Body Temperature 97.81 [degF] [facility]en [employer] 07-05-2019 07:38-0400 BP Diastolic 48 mm[Hg] Branden [place] [facility] , [place] 07-05-2019 07:38-0400 BP Systolic 108 mm[Hg] Branden [place]il [facility] , [place] 07-05-2019 07:38-0400 Pulse (Heart Rate) 82 /min [facility] [place] 07-05-2019 07:38-0400 Pulse Oximetry 98 % [facility] [employer] [facility] , [place] 07-05-2019 07:38-0400 Respiratory Rate 14 /min Branden Vazquez [facility], [place] 07-02-2019 00:30-0400 BMI (Body Mass Index) 35.67 kg/m2 Branden Vazquez [facility] [place], [place] 07-02-2019 00:30-0400 Body weight 88.45 kg Branden [facility] [place] , [place] 07-02-2019 00:30-0400 Height 157.5 cm Branden [facility] , [place] Encounters Encounter Date Encounter Type Care Provider Facility Start: 04-17-2025 End: 04-18-2025 Telephone encounter Karley Spence LAURA [facility] Comment on above: Vomiting Start: 04-03-2025 End: 04-03-2025 Orders Only 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 APRN-SENIOR LABORATORY TECHNICIAN Work Phone: [facility] Start: 03-20-2025 End: 03-24-2025 Evaluation and management of inpatient Olvin Ayo Facility:[facility] Start: 03-20-2025 ambulatory Olvin Ayo F acility:[facility] Start: 02-20-2025 End: 02-20-2025 Office outpatient visit 15 minutes 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 APRN-SENIOR LABORATORY TECHNICIAN Work Phone: [facility] Comment on above: Hypothyroidism, unsp ecified type (Primary Dx); Healthcare maintenance; Encounter for lipid screening for cardiovascular disease; Primary hypertension; Fibromyalgia; Severe episode of recurrent major depressive disorder, without psychotic features ([facility]); Hx of iron deficiency anemia Start: 02-20-2025 End: 02-20-2025 Patient encounter status 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 APRN-SENIOR LABORATORY TECHNICIAN Work Phone: [facility] Start: 02-20-2025 End: 02-20-2025 ambulatory [facility] Start: 02-20-2025 Encounter for genera l adult medical examination without abnormal findings [facility] Start: 02-18-2025 End: 02-18-2025 Clinical Support Vero Arenas APRN-SENIOR LABORATORY TECHNICIAN Work Phone: [facility] Comment on above: Anxiety (Primary Dx) ; Hypothyroidism, unspecified type Start: 12-19-2024 End: 12-19-2024 Refill Karley Jordy SANCHEZ [facility] Start: 12-18-2024 End: 12-18-2024 Office outpatient visit 10 minutes Gelacio Jacome DO Work Phone: [facility] Comment on above: Major depressive dis order, recurrent, severe without psychotic features (CMS-HCC) (Primary Dx); Other specified hypothyroidism Start: 12-18-2024 End: 12-18-2024 ambulatory GELACIO Sharon JACOME [facility] Start: 12-06-2024 End: 12-06-2024 Telephone encounter 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 ALPINE PATROLLER-SENIOR LABORATORY TECHNICIAN Work Phone: [facility] Start: 12-01-2024 Non-patient / Non-visit Sameera Bowser MEDIA STRATEGIST-C Work Phone: [facility] Work Phone: Start: 11-30-2024 End: 12-03-2024 Evaluation and management of inpatient 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 MEDIA STRATEGIST-C Work Phone: [facility] Work Phone: Start: 11-30-2024 End: 11-30-2024 ambulatory 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 MEDIA STRATEGIST-C Work Phone: [facility] Work Phone: Start: 11-30-2024 End: 11-30-2024 Departed Referred 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 MEDIA STRATEGIST-C Work Phone: [facility] Start: 11-30-2024 Registered Recurring [facility] Credible Start: 09-13-2024 End: 09-13-2024 Bamboo flowsheet Cam BEACHW [facility] Start: 09-13-2024 End: 09-13-2024 Bamboo flowsheet Cam Badillo ANALYTICAL DATA MINER [facility] BH Start: 09-13-2024 End: 09-13-2024 ambulatory CAM BADILLO Not Available Start: 09-07-2024 End: 09-07-2024 Bamboo flowsheet Cam Badillo ANALYTICAL DATA MINER [facility] BH Start: 09-07-2024 End: 09-07-2024 Bamboo flowsheet Cam Badillo ANALYTICAL DATA MINER [facility] BH Start: 09-07-2024 End: 09-07-2024 ambulatory CAM BADILLO Not Available Start: 08-01-2024 End: 10-11-2024 Telephone encounter [facility] Start: 07-31-2024 End: 07-31-2024 Bamboo flowsheet Cam Badillo ANALYTICAL DATA MINER [facility] BH Start: 07-31-2024 End: 07-31-2024 Bamboo flowsheet Cam Badillo ANALYTICAL DATA MINER [facility] BH Start: 07-31-2024 End: 07-31-2024 ambulatory CAM BADILLO Not Available Start: 07-26-2024 End: 07-26-2024 ambulatory [facility] Start: 07-26-2024 End: 07-26-2024 ambulatory [facility] Start: 07-19-2024 End: 07-19-2024 Telephone encounter Cam Badillo ANALYTICAL DATA MINER [facility] Comment on above: No show after recent hospitalization (Call placed to Lili Woo Md who is listed as patient's PCP. Patient was recently released from [facility] due to depression and was a no call no show for her appointment this morning at 10 am. ) Start: 07-15-2024 Non-patient / Non-visit [facility] Work Phone: Start: 07-14-2024 End: 07-17-2024 Evaluation and management of inpatient [facility] Work Phone: Start: 07-14-2024 Registered Recurring [facility] Start: 06-20-2024 Non-patient / Non-visit [facility] Work Phone: Start: 05-30-2024 End: 05-30-2024 ambulatory [facility] Start: 04-12-2024 End: 04-12-2024 ambulatory CAM BADILLO Not Available Start: 03-22-2024 End: 03-22-2024 ambulatory CAM BADILLO Not Available Start: 03-15-2024 End: 03-15-2024 ambulatory CAM BADILLO Not Available Start: 03-08-2024 End: 03-08-2024 ambulatory CAM BADILLO Not Available Start: 02-17-2024 End: 02-17-2024 ambulatory CAM BADILLO Not Available Start: 02-07-2024 End: 02-07-2024 ambulatory CAM BADILLO Not Available Start: 01-18-2024 Non-patient / Non-visit MEDIA STRATEGIST-C A gayathri Bowser Work Phone: [facility] Work Phone: Start: 01-18-2024 End: 01-20-2024 Evaluation and management of inpatient MEDIA STRATEGIST-C 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 Work Phone: [facility] Work Phone: Start: 01-18-2024 End: 01-18-2024 Emergency department patient visit [facility] Start: 01-18-2024 [facility] Start: 12-02-2023 End: 12-02-2023 ambulatory [facility] Start: 12-02-2023 End: 12-02-2023 ambulatory CAM BADILLO Not Available Start: 12-01-2023 End: 12-01-2023 ambulatory [facility] Start: 11-23-2023 End: 11-23-2023 ambulatory CAM BADILLO Not Available Start: 11-15-2023 Bamboo flowsheet Cam Badillo ANALYTICAL DATA MINER NOM S FNR Start: 11-15-2023 Bamboo flowsheet Cam Badillo ANALYTICAL DATA MINER NOM S FNR Start: 11-15-2023 End: 11-15-2023 ambulatory CAM BADILLO Not Available Start: 11-10-2023 Bamboo flowsheet Cam Badillo ANALYTICAL DATA MINER NOM S FNR BH Start: 11-10-2023 Bamboo flowsheet Cam Badillo ANALYTICAL DATA MINER NOM S FNR BH Start: 11-10-2023 End: 11-10-2023 ambulatory CAM BADILLO Not Available Start: 11-03-2023 End: 11-03-2023 ambulatory CAM BADILLO Not Available Start: 10-21-2023 End: 10-21-2023 ambulatory CAM BADILLO Not Available Start: 10-10-2023 End: 10-13-2023 Evaluation and management of inpatient [facility] Work Phone: Start: 09-21-2023 End: 09-22-2023 ambulatory CAM BADILLO Not Available Start: 09-16-2023 End: 09-16-2023 ambulatory [place] Start: 08-23-2023 End: 08-26-2023 Evaluation and management of inpatient [facility] Work Phone: Start: 05-11-2023 End: 05-11-2023 ambulatory Enrico Alcazar II Other [employer] Other Start: 05-11-2023 Office outpatient ne w 45 minutes Enrico Alcazar II [facility] Start: 04-23-2023 End: 05-01-2023 Evaluation and management of inpatient MD Miah Abreu Work Phone: [facility] Work Phone: Start: 04-13-2023 End: 04-17-2023 Evaluation and management of inpatient MD Miah Abreu Work Phone: [facility] Work Phone: Start: 09-30-2022 End: 09-30-[address] DOCTOR NAGY Facility:[facility] Start: 09-07-2022 End: 09-07-[address] YARON LANG Facility:[facility] Start: 08-29-2022 End: 09-01-2022 Evaluation and management of inpatient [facility] Start: 06-06-2022 End: 06-12-2022 Evaluation and management of inpatient [facility] Start: 06-06-2022 End: 06-06-2022 ambulatory OTTO SIEGEL Facility:[facility] Start: 04-06-2022 End: 04-07-2022 ambulatory JUAN LUIS Lugo [facility] Start: 04-06-2022 End: 04-06-2022 Subsequent hospital visit by physician Branden Vazquez MD Work Phone: [facility] Start: 03-24-2022 End: 03-25-2022 ambulatory EDY CONOR Facility:[facility] Start: 03-19-2022 End: 03-23-2022 Evaluation and management of inpatient [facility] Start: 03-19-2022 End: 03-19-[address] DOCTOR NAGY Facility:[facility] Start: 07-02-2019 End: 07-05-2019 [facility] Start: 07-01-2019 Patient encounter procedure Branden MORELOS Admitting Comment on above: N/A Start: 04-04-2017 End: 04-05-2017 Ambulatory BENJI BURKS Facility:[facility] Procedures Date Procedure Procedure Detail Performing Clinician Start: 12-18-2024 Follow-up visit Follow-up GELACIO JACOME Start: 12-18-2024 Adult depression screening assessment Gelacio Jacome DO Work Phone: Start: 11-30-2024 Urine culture Start: 09-13-2024 End: 09-13-2024 Psychotherapy w/patient 45 minutes PTSD (post-traumatic stress disorder) (CMS/HCC) Cam LARSEN Comment on above: PTSD (post-traumatic stress disorder) (CMS/HCC); Attention deficit hyperactivity disorder (ADHD), combined type (CMS/HCC); Opioid dependence in remission (CMS/HCC); Alcohol dependence in remission (CMS/HCC); Methamphetamine dependence in remission (CMS/HCC) Start: 09-07-2024 End: 09-07-2024 Psychotherapy w/patient 60 minutes PTSD (post-traumatic stress disorder) (CMS/HCC) Cam LARSEN Comment on above: PTSD (post-traumatic stress disorder) (CMS/HCC); Attention deficit hyperactivity disorder (ADHD), combined type (CMS/HCC); Methamphetamine dependence in remission (CMS/HCC); Alcohol dependence in remission (CMS/HCC); Opioid dependence in remission (CMS/HCC) Start: 07-31-2024 End: 07-31-2024 Psychotherapy w/patient 60 minutes PTSD (post-traumatic stress disorder) (CMS/HCC) Cam LARSEN Comment on above: PTSD (post-traumatic stress disorder) (CMS/HCC); Attention deficit hyperactivity disorder (ADHD), combined type (CMS/HCC); Methamphetamine dependence in remission (CMS/HCC); Alcohol dependence in remission (CMS/HCC); Opioid dependence in remission (CMS/HCC) Start: 07-15-2024 Bacteria identified in Urine by Culture Start: 12-01-2023 Adult depression screening assessment Tessie John [facility] Start: 11-15-2023 End: 11-15-2023 Psychotherapy w/patient 60 [...] Antibody hiv-1&hiv-2 single result Juan Luis Whiting ALPINE PATROLLER - [facility] Work Phone: Start: 04-06-2022 Comprehensive metabo lic panel Juan Luis Whiting ALPINE PATROLLER [employer] [facility] Work Phone: Start: 04-06-2022 Smr prim src wet john nt nfct agt Juan Luis Whiting ALPINE PATROLLER [employer] [facility] Work Phone: Start: 04-06-2022 T. PALLIDUM AB Juan Luis Berhane cochran ALPINE PATROLLER [employer] [facility] Work Phone: Start: 07-05-2019 DISCHARGE PATIENT SREEK [...] Detail Author Start: 09-09-2027 DTaP,Tdap and Td Vaccines (2 - Td or Tdap) DTaP,Tdap and Td Vaccines (2 - Td or Tdap) [facility] Start: 02-20-2026 Adult BMI Screening Adult BMI Screen ing [facility] Start: 02-20-2026 Tobacco Screening Tobacco Screening [facility] Start: 12-18-2025 Adult BMI Screening Adult BMI Screen ing [facility] Start: 12-18-2025 Depression Screening Depression Scre ening [facility] Start: 12-18-2025 Tobacco Screening Tobacco Screening [facility] Start: 07-26-2025 Adult BMI Screening Adult BMI Screen ing [facility] Start: 07-26-2025 Tobacco Screening Tobacco Screening [facility] Start: 09-01-2025 Influenza vaccination Influenza Vacc ine [facility] Start: 05-23-2025 End: 02-20-2026 CBC W Auto Differential panel - Blood CBC auto differential Lab Routine Healthcare maintenance Hx of iron deficiency anemia Expected: 05/23/2025 (Approximate), Expires: [facility]20/2026 [facility] on above: Expected: 05/23/2025 (Approximate), Expires: 02/20/2026 Start: 05-23-2025 End: 02-20-2026 Comprehensive metabolic 2000 panel - Serum or Plasma Comprehensive metabolic panel Lab Routine Healthcare maintenance Encounter for lipid screening for cardiovascular disease Expected: 05/23/2025 (Approximate), Expires: 02/20/2026 [facility] Comment on above: Expected: 05/23/2025 (Approximate), Expires: 02/20/2026 Start: 05-23-2025 End: 02-20-2026 Cyanocobalamin vitamin b-12 Vitamin B12 Lab Routine Healthcare maintenance Fibromyalgia Severe episode of recurrent major depressive disorder, without psychotic features ([facility]-HCC) Expected: 05/23/2025 (Approximate), Expires: 02/20/2026 [facility] Comment on above: Expected: 05/23/2025 (Approximate), Expires: 02/20/2026 Start: 05-23-2025 End: 02-20-2026 Iron and TIBC Iron and TIBC Lab Routine Healthcare maintenance Hx of iron deficiency anemia Expected: 05/23/2025 (Approximate), Expires: 02/20/2026 [facility] Comment on above: Expected: 05/23/2025 (Approximate), Expires: 02/20/2026 Start: 05-23-2025 End: 02-20-2026 Lipid panel Lipid panel Lab Routine Healthcare maintenance Encounter for lipid screening for cardiovascular disease Expected: 05/23/2025 (Approximate), Expires: 02/20/2026 [employer] Work Phone: Comment on above: Expected: 05/23/2025 (Approximate), Expires: 02/20/2026 Start: 05-23-2025 End: 02-20-2026 TSH with Reflex TSH with Reflex Lab Routine Hypothyroidism, unspecified type Healthcare maintenance Expected: 05/23/2025 (Approximate), Expires: 02/20/2026 [facility] Comment on above: Expected: 05/23/2025 (Approximate), Expires: 02/20/2026 Start: 05-23-2025 End: 02-20-2026 Vitamin D 25 hydroxy Vitamin D 25 hydroxy Lab Routine Healthcare maintenance Fibromyalgia Severe episode of recurrent major depressive disorder, without psychotic features ([facility]-HCC) Expected: 05/23/2025 (Approximate), Expires: 02/20/2026 [facility] Comment on above: Expected: 05/23/2025 (Approximate), Expires: 02/20/2026 Start: 05-23-2025 End: 05-23-2025 Patient encounter procedure 05/23/2025 1:20 PM EDT Office Visit [facility] [address] [place] [address] [place] [phone] 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 APRN-SENIOR LABORATORY TECHNICIAN [address] [place] [address], [facility] [place] [phone] [facility] Start: 05-14-2025 End: 05-14-2025 Clinical Support 05/14/2025 8:30 AM EDT Clinical Support [facility] [address] [place] [address] [place] [phone] Gelacio Jacome, [address] [facility], [address], [address] [place], [place] [id number] [facility] Start: 02-20-2025 End: 02-20-2025 Patient encounter procedure 02/20/2025 9:20 AM EDT Office Visit [facility] [address] [place] [address] [place] [phone] 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 ALPINE PATROLLER-SENIOR LABORATORY TECHNICIAN [address] [place] [address], [place] [phone] [facility] Start: 02-06-2025 End: 02-06-2025 Patient encounter procedure 02/06/2025 10:40 AM EDT Office Visit [facility] [address] [facility] [place] [address] Bowser MichelleELSIN-SENIOR LABORATORY TECHNICIAN [address], [place] [address] [facility] Start: 01-18-2025 End: 12-18-2025 Thyroid profile includes TSH FT4 Thyroid profile includes TSH FT4 Lab Routine Other specified hypothyroidism Expected: 01/18/2025 (Approximate), Expires: 12/18/2025 [facility] Work Phone: Comment on above: Expected: 01/18/2025 (Approximate), Expires: 12/18/2025 Start: 12-03-2024 [facility] Start: 11-30-2024 Hospital admission [facility] Start: 11-30-2024 [facility] Start: 11-30-2024 Bacteria identified in Urine by Culture Urine Culture [facility] Start: 11-30-2024 Depression Screening Depression [facility] Start: 11-30-2024 Urine culture [facility] Start: 09-20-2024 End: 09-20-2024 Social Work 09/20/2024 11:00 AM EST Social Work [facility] [address] [facility] [place] [address] Cam Badillo LSW [facility] Start: 09-13-2024 End: 09-13-2024 Social Work [facility] Comment on above: Arrived Start: 09-07-2024 End: 09-07-2024 Social Work 09/07/2024 8:00 AM EST Social Work [facility] [address] [facility] [place] [address] Cam Badillo LSW Arrived [facility] Comment on above: Arrived Start: 08-09-2024 End: 08-09-2024 Social Work 08/09/2024 10:00 AM EST Social Work [facility] [address] [facility] [place] [address] Cam Badillo LSW [facility] Start: 07-31-2024 End: 07-31-2024 Social Work 07/31/2024 11:00 AM EDT Social Work [facility] [address] [place] [address] Cam Badillo LSW Arrived [facility] Comment on above: Arrived Start: 07-17-2024 [facility] Start: 07-15-2024 Referral to clinical cannon pinion adjuster [facility] Start: 07-15-2024 Referral to [facility] Start: 07-14-2024 Hospital admission [facility] Start: 06-03-2024 COVID-19 Vaccine () COVID-19 Vaccine () [facility] Start: 06-03-2024 Influenza vaccination N [facility] Start: 01-20-2024 [facility] Start: 01-18-2024 Referral to [facility] Start: 01-18-2024 Hospital admission [facility] Start: 11-21-2023 End: 11-21-2023 Social Work 11/21/2023 11:00 AM EST Social Work [facility] [address] [place] [address] Cam Badillo LSW [address] [place] [address] [facility] Start: 11-15-2023 End: 11-15-2023 Social Work [facility] Comment on above: Arrived Start: 11-10-2023 End: 11-10-2023 Social Work 11/10/2023 11:00 AM EST Social Work [facility] [address] [place] [address] Cam Badillo LSW [address] [place] [address] Arrived [facility] Comment on above: Arrived Start: 10-13-2023 [facility] Start: 10-10-2023 Referral to [facility] Start: 10-10-2023 Hospital admission [facility] Start: 08-26-2023 [facility] Start: 08-25-2023 [facility] Start: 08-24-2023 Referral to clinical cannon pinion adjuster [facility] Start: 08-24-2023 Referral to [facility] Start: 08-24-2023 Hospital admission [facility] Start: 08-24-2023 [facility] Start: 06-03-2023 Influenza vaccination Influenza Vacc ine (#1) [facility] Start: 2023 Administration of varicella zoster vaccine Zoster (Shingles) Vaccine (1 of 2) [facility] Start: 05-01-2023 [facility] Start: 04-25-2023 Consultation [facility] Start: 04-23-2023 Referral to clinical cannon pinion adjuster [facility] Start: 04-23-2023 Hospital admission [facility] Start: 04-17-2023 [facility] Start: 04-13-2023 Referral to [facility] Start: 04-13-2023 Sleep disorder assessment [facility] Start: 04-13-2023 Hospital admission [facility] Start: 09-01-2022 [facility] Start: 08-29-2022 Hospital admission [facility] Start: 06-12-2022 [facility] Start: 06-06-2022 Referral to [facility] Start: 06-06-2022 Hospital admission [facility] Start: 06-03-2022 Influenza vaccination Flu vaccine (# 1) [facility] [employer] Start: 03-23-2022 [facility] Work Phone: Start: 03-19-2022 Hospital admission [facility] Work Phone: Start: 06-03-2019 Influenza vaccination Flu vaccine (# 1) [place] Start: 2018 Screening for malign ant neoplasm of colon [facility] [employer] Start: 2013 [facility] [employer] Start: 2013 [facility] screen [facility] [place] Start: 2013 Screening for malign ant neoplasm of breast Mammogram [facility] Start: 2003 Screening for malign ant neoplasm of cervix [facility] Start: 1994 Cervical cancer screen Cervical canc er screen [place], [place] Start: 1994 Screening for malign ant neoplasm of cervix Pap smear [facility] Start: 1992 DTaP/Tdap/Td vaccine (1 - Tdap) DTaP/Tdap/Td vaccine (1 - Tdap) [facility] Start: 1991 Adult BMI Follow Up Plan Adult BMI F ollow Up Plan [facility] Start: 1991 Hepatitis C screening Hepatitis C sc reen [facility] Start: 1988 HIV screen HIV screen [place], [place] Start: 1988 HIV screening HIV screen [facility] Start: 1985 Depression Monitoring Depression Mon itoring [facility] Start: 1979 Pneumococcal 0-64 ye ars Vaccine (1 - PCV) Pneumococcal 0-64 years Vaccine (1 - PCV) [facility] Start: 1979 Pneumococcal 0-64 ye ars Vaccine (1 of 1 - PPSV23) Pneumococcal 0-64 years Vaccine (1 of 1 - PPSV23) [place], [place] Start: 1978 COVID-19 Vaccine (1) COVID-19 Vaccin e (1) [facility] Start: 1973 Screening for malign ant neoplasm of colon [facility] Start: 1973 Tobacco Counseling Tobacco Counselin g [facility] End: 04-06-2022 C.trachomatis N.gonorrhoeae DNA [facility] [employer] Phone: Comment on above: Once for 1 Occurrenc es starting 04/06/2022 until 04/06/2022 Hepatitis A virus antibody, IgM type [facility] Hepatitis B core antibody measurement, IgM type [facility] Hepatitis B virus surface Ag [Presence] in Serum or Plasma by Immunoassay [facility] End: 04-06-2022 Hepatitis C RNA, quantitative, PCR [facility] [employer] Phone: Comment on above: Once for 1 Occurrenc es starting 04/06/2022 until 04/06/2022 Hepatitis C virus Ig G Ab [Presence] in Serum or Plasma by Immunoassay [facility] Hepatitis C virus RN A [log units/volume] (viral load) in Serum or Plasma by TISHA with probe detection [facility] Hepatitis C virus RN A [Units/volume] (viral load) in Serum or Plasma by TISHA with probe detection [facility] Patient Education [facility] Work Phone: Patient referral [facility] Work Phone: TSH with Reflex TSH with Reflex Lab Routine Anxiety Hypothyroidism, unspecified type 02/18/2025 10:34 AM EDT [facility] Work Phone: Immunizations Immunization Date Immunization Notes Care Provider Jl lopez 10-12-2024 influenza virus vaccine, unspecified formulation Vero Arenas ALPINE PATROLLER-SENIOR LABORATORY TECHNICIAN Work Phone: [employer] 09-11-2022 COVID-19 Pfizer (bivalent) Enrico Ottoniel II Other [facility] 07-13-2022 influenza, injectabl e, quadrivalent, preservative free Enrico Houston II Other [facility] 07-13-2022 influenza virus vaccine, unspecified formulation Cam Badillo [facility] 09-23-2021 COVID-19 Vaccine Pfizer - Documentation Purposes Only Enrico Ottoniel II Other [facility] 07-22-2021 influenza, injectabl e, quadrivalent, preservative free [facility] 02-16-2021 COVID-19 Vaccine Codey - Documentation Purposes Only Enrico Houston II Other [facility] 12-04-2019 Influenza, injectabl e, Madin Dacia Canine Kidney, preservative free, quadrivalent [facility] 09-09-2017 tetanus toxoid, reduced diphtheria toxoid, and acellular pertussis vaccine, adsorbed Enrico Houston II Other [facility] NEGATED: Highlighted row has not occurred!07-31-2018 influenza, injectable, quadrivalent, preservative free [facility] Payers Date Payer Category Payer Self-pay [id number] 2022 Medicaid [id number] 2022 Medicaid [id number] 2014 Unknown [employer] xxxxxxxxxxx 2014-Present [phone] [address] [place] [address] [id number] [id number].3. [id number] 1975 Unknown [id number] 2.16.840.1.992330.3.579.2.176 1975 Unknown [id number] 2.16.840.1.543365.3.579.2.173 1973 Unknown [id number] 2.16.840.1.207837.3.579.2.593 1973 Unknown [id number] 2.16.840.1.654714.3.579.2.593 1973 Unknown [id number] 2.16.840.1.014254.3.579.2.593 1973 Unknown [id number] 2.16.840.1.850328.3.579.2.593 1973 Unknown [id number] 2.16.840.1.154563.3.579.2.593 1973 Unknown [id number] 2.16.840.1.306965.3.579.2.1286 1973 Unknown [id number] 2.16.840.1.345694.3.579.2.1286 1973 Unknown [id number] 2.16.840.1.783557.3.579.2.1286 1973 Unknown [id number] 2..840.1.041813.3.579.2.1286 1973 Unknown [id number] ..840.1.061169.3.579.2.1258 1973 Unknown [id number] 2.840.1.764857.3.579.2.1258 1973 Unknown [id number] 840.1.602290.3.579.2.1258 1973 Unknown [id number] 2..840.1.969943.3.579.2.1258 1973 Unknown [id number] 840.1.334835.3.579.2.1258 1973 Unknown [id number] 2.840.1.755144.3.579.2.1258 1973 Unknown [id number] 840.1.210879.3.579.2.1258 1973 Unknown [id number] 2.840.1.328821.3.579.2.1258 1973 Unknown [id number] 840.1.905415.3.579.2.1258 1973 Unknown [id number] 840.1.950832.3.579.2.1258 1973 Unknown [id number] 840.1.350104.3.579.2.1258 1973 Unknown [id number] 840.1.607577.3.579.2.1258 1973 Unknown [id number] 2840.1.315804.3.579.2.1258 1973 Unknown [id number] 2840.1.136364.3.579.2.1258 1973 Unknown [id number] 2840.1.290200.3.579.2.1258 1973 Unknown [id number] 2.16.840.1.149067.3.579.2.1259 1973 Unknown [id number] 2.16.840.1.472432.3.579.2.1286 1973 Unknown [id number] 2.16840.1.999461.3.579.2.1286 1973 Unknown [id number] 2.16840.1.737065.3.579.2.128 1973 Unknown [id number] 2.840.1.238082.3.579.2.128 1973 Unknown [id number] 2.16.840.1.817284.3.579.2.1286 1961 Medicaid [id number] 1959 Unknown [id number] Unknown [id number] 2.16840.1.090519.3.579.2.531 Unknown [id number] 2.16840.1.792258.3.579.2.531 Unknown [id number] 2.16840.1.106287.3.579.2.531 Unknown [id number] 2.16840.1.245950.3.579.2.531 Unknown [id number] 2840.1.837420.3.579.2.531 Social History Date Type Detail Facility Start: 09-09-2017 End: 07-03-2019 Tobacco smoking status SCIS Light tobacco smoker [facility] Start: 05-23-1998 End: 05-23-2018 History of tobacco use Cigarette Smoker [place], [place] Start: 07-03-2019 End: 11-13-2020 Cigarettes smoked current (pack per day) - Reported [facility] Start: 07-03-2019 End: 11-13-2020 Alcohol intake Yes [facility] Start: 09-09-2017 Alcohol Comment occassional [place], [place] Start: 1975 Sex Assigned At Not on file [place] Start: 09-09-2017 End: 05-30-2024 Tobacco use and exposure Smokeless tobacco non-user [facility] Work Phone: Start: 07-03-2019 Alcohol intake Current drinke r of alcohol (finding) [facility] Work Phone: Start: 09-09-2017 History SDOH Alcohol Comment occassional [facility] Work Phone: Start: 06-07-2022 End: 12-01-2024 Tobacco smoking status SCIS Smoker (finding) [facility] Start: 1975 Sex Assigned At Female F [facility] Start: 08-30-2022 End: 08-24-2023 Tobacco smoking status NHIS Ex-smoker (finding) [facility] Start: 04-28-2023 Tobacco smoking stat [facility] Never smoked tobacco (finding) [facility] Tobacco smoking stat [facility] Tobacco smoking consumption unknown [facility] Start: 05-23-1998 Tobacco smoking stat [facility] Occasional tobacco smoker [facility] Start: 07-26-2024 End: 02-20-2025 Alcoholic beverage intake Ex-drinker (finding) [facility] Adolescent depressio n screening assessment 1 [facility] Start: 03-05-2021 Alcohol Comment beer and liquour [facility] Start: 05-08-2015 End: 12-03-2024 Sex Female (finding) [facility] Goals Date Patient Goal Desired Activity /State Personal health goal Comment on above: Formatting of this n ote might be different from the original. Evaluation of progress towards goal: admitted to hospital Functional Status Date Assessment Result Facility 12-03-2024 Functional status Patient at Baseline [facility] Work Phone: 11-30-2024 Functional status Patient Not at Baseline [facility] Work Phone: 07-17-2024 Functional status Patient at Baseline [facility] Work Phone: 01-20-2024 Functional status Patient at Baseline [facility] Work Phone: 10-13-2023 Functional status Patient at Baseline [facility] Work Phone: 08-26-2023 Functional status Patient at Baseline [facility] Work Phone: 05-01-2023 Functional status Patient at Baseline [facility] Work Phone: 04-17-2023 Functional status Patient at Baseline [facility] Work Phone: 09-01-2022 Functional status Patient at Baseline [facility] Work Phone: 06-12-2022 Functional status Patient at Baseline [facility] Work Phone: 03-23-2022 Functional status Patient at Baseline [facility] Work Phone: Mental Status Date Assessment Result Facility 12-03-2024 Cognitive function Cognitive Sta tus Patient at Baseline [facility] Work Phone: 11-30-2024 Cognitive function Cognitive Sta tus Patient Not at Baseline [facility] Work Phone: 07-17-2024 Cognitive function Cognitive Sta tus Patient at Baseline [facility] Work Phone: 01-20-2024 Cognitive function Cognitive Sta tus Patient at Baseline [facility] Work Phone: 10-13-2023 Cognitive function Cognitive Sta tus Patient at Baseline [facility] Work Phone: 08-26-2023 Cognitive function Cognitive Sta tus Patient at Baseline [facility] Work Phone: 05-01-2023 Cognitive function Cognitive Sta tus Patient at Baseline [facility] Work Phone: 04-17-2023 Cognitive function Cognitive Sta tus Patient at Baseline [facility] Work Phone: 09-01-2022 Cognitive function Cognitive Sta tus Patient is Progressing Toward Baseline [facility] Work Phone: 06-12-2022 Cognitive function Cognitive Sta tus Patient at Baseline [facility] Work Phone: 03-23-2022 Cognitive function Cognitive Sta tus Patient at Baseline [facility] Work Phone: Clinical Notes 06-07-2022 to 04-17-2025 Telephone Encounter - Karley Spence CNA - 04/17/2025 9:12 AM EDTTelephone Encounter - PA Townsend - 04/17/2025 9:12 AM PA Raines - 02/20/2025 9:20 AM EDT Note Date & Type Note Facility 04-17-2025 Miscellaneous Notes Formattin g of this note might be different from the original. Debra called she was requesting a refill on Zofran but MA informed her there was a refill on that medication to call pharmacy to refill. Patient state she was now vomiting and would like to know if there is any other recommendations. Please advise She has been experiencing nausea for over 2 weeks now. She should be evaluated. Thank you. Spoke with Debra, She ended up going to ER for vomiting. She requested a [facility] referral. BRITTNY gave her the number from previous referral that was sent to call. She will call office if new referral is needed. documented in this encounter [facility] 04-17-2025 Telephone encount er Note Debra called she was requesting a refill on Zofran but MA informed her there was a refill on that medication to call pharmacy to refill. Patient state she was now vomiting and would like to know if there is any other recommendations. Please advise [facility] 04-17-2025 Telephone encount er Note She has been experiencing nausea for over 2 weeks now. She should be evaluated. Thank you. [facility] 04-17-2025 Telephone encount er Note Spoke with Debra, She ended up going to ER for vomiting. She requested a [facility] referral. BRITTNY gave her the number from previous referral that was sent to call. She will call office if new referral is needed. [facility] 02-20-2025 History of Presen t illness Narrative Subjective Patient ID: Debra Scott is a 49 y.o. female. CAROLIN Richardson presents to the office for follow up on hyypothyroidism. She was seen on 12/18/2024 were labs showed TSH was slightly off. She was therefore started on levothyroxine 75 mcg once daily except to hold 1 day a week. She had recheck labs completed on 02/18 2025 and TSH is WNL. She reports she has not noticed any change however labs are exactly where we need them to be. She reports she continues with menopausal symptoms and has increased anxiety and depression. However she is following with mental health specialists and counseling. The following portions of the patient's history were reviewed and updated as appropriate: allergies, current medications, past family history, past medical history, past social history, past surgical history, problem list, and medication reconciliation was completed including current medication and post discharge medication. Review of Systems Constitutional: Negative for chills, diaphoresis, fatigue, fever and unexpected weight change. HENT: Negative. Eyes: Negative. Respiratory: Negative for cough, chest tightness, shortness of breath and wheezing. Cardiovascular: Negative for chest pain, palpitations and leg swelling. Gastrointestinal: Positive for nausea. Negative for abdominal pain, diarrhea and vomiting. Endocrine: Negative for polydipsia, polyphagia and polyuria. Genitourinary: Negative for difficulty urinating, frequency, hematuria and urgency. Musculoskeletal: Negative for arthralgias, gait problem, joint swelling and neck pain. Skin: Negative. Neurological: Negative for dizziness, syncope, weakness, light-headedness, numbness and headaches. Psychiatric/Behavioral: Negative for self-injury and suicidal ideas. Objective Physical Exam Vitals and nursing note reviewed. Constitutional: General: She is not in acute distress. Appearance: Normal appearance. She is not ill-appearing. HENT: Head: Normocephalic and atraumatic. Neck: Vascular: No carotid bruit. Cardiovascular: Rate and Rhythm: Normal rate and regular rhythm. Pulses: Normal pulses. Heart sounds: Normal heart sounds. Pulmonary: Effort: Pulmonary effort is normal. Breath sounds: Normal breath sounds. Abdominal: Palpations: Abdomen is soft. Musculoskeletal: Cervical back: Normal range of motion and neck supple. No rigidity or tenderness. Right lower leg: No edema. Left lower leg: No edema. Lymphadenopathy: Cervical: No cervical adenopathy. Skin: Capillary Refill: Capillary refill takes less than 2 seconds. Findings: No erythema or rash. Neurological: General: No focal deficit present. Mental Status: She is alert. Psychiatric: Mood and Affect: Mood normal. Behavior: Behavior normal. Assessment/Plan Continue levothyroxine as 75 mcg and hold 1 day a week. She would like a refill on Zofran for intermittent nausea due to menopausal symptoms. Refill sent. She has history of anemia we will send in supplement. Continue to follow up with specialists for mental health. She is due for wellness and labs orders placed. Debra was seen today for follow-up. Diagnoses and all orders for this visit: Hypothyroidism, unspecified type - levothyroxine (SYNTHROID, LEVOTHROID) 75 MCG tablet; Take 1 tablet (75 mcg total) by mouth in the morning. - TSH with Reflex; Future Healthcare maintenance - Lipid panel; Future - Comprehensive metabolic panel; Future - TSH with Reflex; Future - Vitamin B12; Future - Vitamin D 25 hydroxy; Future - CBC auto differential; Future - Iron and TIBC; Future Encounter for lipid screening for cardiovascular disease - Lipid panel; Future - Comprehensive metabolic panel; Future Primary hypertension Fibromyalgia - Vitamin B12; Future - Vitamin D 25 hydroxy; Future Severe episode of recurrent major depressive disorder, without psychotic features ([facility]) - Vitamin B12; Future - Vitamin D 25 hydroxy; Future Hx of iron deficiency anemia - CBC auto differential; Future - Iron and TIBC; Future - ferrous sulfate 325 (65 FE) MG tablet; Take 1 tablet (325 mg total) by mouth in the morning. Other orders - ondansetron ODT (ZOFRAN ODT) 4 mg disintegrating tablet; Dissolve 1 tablet (4 mg total) on tongue every 8 (eight) hours as needed for nausea. PA Townsend 02/20/25 0936 documented in this encounter [facility] 02-18-2025 History of Presen t illness Narrative Patient is here for nurse visit. They are here for a blood draw. Venipuncture performed in the right arm. Patient had no adverse reactions. documented in this encounter [facility] 12-18-2024 Evaluation + Plan note Associated Problem(s): Other specified hypothyroidism Last TSH from 12/01/24 showed TSH slightly decreased. With levothyroxine 75 mcg take 1 tablet daily except for 1 day per week when hold medication. Will recheck levels in 6-8 weeks [facility] 12-18-2024 Miscellaneous Notes Associate d Problem(s): Other specified hypothyroidism Last TSH from 12/01/24 showed TSH slightly decreased. With levothyroxine 75 mcg take 1 tablet daily except for 1 day per week when hold medication. Will recheck levels in 6-8 weeks Associated Problem(s): Major depressive disorder, recurrent, severe without psychotic features ([facility]) Symptoms improved since hospitalization. Patient denies any suicidal ideation. Continue with Pristiq 25 mg daily along with other medications. Follow with [facility] for psychiatric care documented in this encounter [facility] 12-18-2024 Evaluation + Plan note Associated Problem(s): Major depressive disorder, recurrent, severe without psychotic features ([facility]) Symptoms improved since hospitalization. Patient denies any suicidal ideation. Continue with Pristiq 25 mg daily along with other medications. Follow with [facility] for psychiatric care [facility] 12-18-2024 History of Presen t illness Narrative Images from the original note were not included. [facility] [address] [facility] [place] [address] Patient: Debra Scott Date of : 1975 Encounter Date: 12/18/2024 Subjective: Chief Complaint Chief Complaint Patient presents with Follow-up Discharge follow up History of Present Illness Debra Scott is a 49 y.o. female, established patient, that presents to the office for hospital follow up. Depression Visit: Follow-up (Hospitalized at [facility] from 11/30-12/03/24 for Major depressive disorder with suicidal ideation) Initial visit: Symptoms: depressed mood (She had increased depression over the winter.) Symptoms: no palpitations Follow-up visit: Symptoms: no suicidal ideas (Denies any thoughts of hurting herself currently) Symptoms comment: On admission was experiencing feeling of overwhlemed, hopeless and worthless that had been triggered by family conflict and health concerns for family member : Follows with [facility] in [place] for care. has appointment in early January. Started on Pristiq 50 mg daily which she is tolerating well and buproprion discontinued. Response to treatment: Improving Hypothyroidism Presents for follow-up (Initially diagnoed in 2016. Current dose of levothyroxine 75 mcg daily. Last test on 12/01/24 TSH 0.13 (low) and free T4 1.22 (Normal)) visit. Symptoms include depressed mood (She had increased depression over the winter.) and heat intolerance (Having intermittent hot flashes). Patient reports no cold intolerance, leg swelling, palpitations or tremors (Only with increased anxiety). Review of Systems Review of Systems Respiratory: Has been reducing smoking. Down to 2 cigarettes per day. Not using nicotine replacement Cardiovascular: Negative for palpitations. Endocrine: Positive for heat intolerance (Having intermittent hot flashes). Negative for cold intolerance. She states that she has been having disturbance in sleep and having hot flashes related to menopausal symptoms Neurological: Negative for tremors (Only with increased anxiety). Vital Signs BP 124/84 (BP Site: Left Arm, BP Postition: Sitting) Pulse 92 Temp 36.8 C (98.2 F) (Oral) Wt 85.3 kg (188 lb) LMP (LMP Unknown) SpO2 98% BMI 34.39 kg/m Physical Exam Physical Exam Vitals reviewed. Constitutional: General: She is not in acute distress. Appearance: She is not ill-appearing. Cardiovascular: Rate and Rhythm: Normal rate and regular rhythm. Heart sounds: No murmur heard. Pulmonary: Effort: Pulmonary effort is normal. No respiratory distress. Breath sounds: No wheezing, rhonchi or rales. Abdominal: General: Bowel sounds are normal. Neurological: Mental Status: She is alert. Psychiatric: Attention and Perception: Attention normal. Mood and Affect: Mood normal. Affect is not inappropriate. Speech: Speech normal. Behavior: Behavior normal. Behavior is cooperative. Past Medical, Family, Surgery and Social History Past Medical History: Diagnosis Date Anxiety Anxiety Attention deficit hyperactivity disorder (ADHD), predominantly inattentive type 07/26/2024 Back pain 08/16/2022 Bronchial pneumonia Chronic pain 12/13/2014 Depression Elevated blood-pressure reading, without diagnosis of hypertension 03/28/2019 Fibromyalgia 11/25/2022 GERD (gastroesophageal reflux disease) Hepatitis C Hypertension Infectious viral hepatitis Hep c Mixed hyperlipidemia 08/17/2022 Obesity Other specified hypothyroidism 08/17/2022 Overdose Peptic ulceration Rheumatoid arthritis Rheumatoid arthritis (CMS-HCC) 08/16/2022 Seizures ([facility]) d/t ultram Severe episode of recurrent major depressive disorder, without psychotic features ([facility]) 07/26/2024 Urinary tract infection Past Surgical History: Procedure Laterality Date ABDOMINAL SURGERY exploratory states she had infection ABLATION ENDOMETRIAL HTA N/A 05/16/2017 Performed by Yusuf Campuzano MD at [facility] SURGERY ANTERIOR CERVICAL DISCECTOMY W/ FUSION C5 and C6 CERVICAL FUSION SECTION 12/05/2009 D AND C HYSTEROSCOPY N/A 05/16/2017 Performed by Yusuf Campuzano MD at [facility] SURGERY HYSTERECTOMY complete Family History Problem Relation Age of Onset No Known Problems Mother Heart disease Maternal Grandfather Obesity Paternal Grandfather Hypertension Paternal Grandfather Breast cancer Neg Hx Ovarian cancer Neg Hx Social History Socioeconomic History Marital status: Spouse name: Not on file Number of children: Not on file Years of education: Not on file Highest education level: Not on file Occupational History Not on file Tobacco Use Smoking status: Some Days Current packs/day: 0.00 Average packs/day: 0.5 packs/day for 20.0 years (10.0 ttl pk-yrs) Types: Cigarettes Start date: 05/23/1998 Last attempt to quit: 05/23/2018 Years since quittin.5 Smokeless tobacco: Never Vaping Use Vaping status: Former Substances: Nicotine, Flavoring Substance and Sexual Activity Alcohol use: Not Currently Comment: beer and liquour Drug use: Not Currently Types: Marijuana, Cocaine, Heroin Comment: Gimmies and THC Currently-07/26/2024 Sexual activity: Defer Other Topics Concern Caffeine Use Not Asked Social History Narrative Merged History Encounter Social Drivers of Health Financial Resource Strain: Not on file Food Insecurity: No Food Insecurity (12/18/2024) Hunger Screening Food Insecurity - Worry: Never True Food Insecurity - Inability: Never True Transportation Needs: Not on file Physical Activity: Not on file Stress: Not on file Social Connections: Not on file Interpersonal Safety: Not on file Housing Instability: Not on file Allergies and Current Medications Allergies Allergen Reactions Bactrim [Sulfamethoxazole-Trimethoprim] Dizziness Bactrim [Sulfamethoxazole-Trimethoprim] Buspar [Buspirone] Abnormal Behavior Panic attack Flagyl [Metronidazole] Dizziness Nubain [Nalbuphine] Ultram [Tramadol] seizures Vistaril [Hydroxyzine Hcl] Abnormal Behavior Benadryl [Diphenhydramine Hcl] Palpitations Current Outpatient Medications on File Prior to Visit Medication Sig ALPRAZolam (XANAX) 1 mg tablet Take 1 tablet (1 mg total) by mouth. desvenlafaxine (PRISTIQ) 25 mg 24 hr tablet Take 1 tablet (25 mg total) by mouth in the morning. levothyroxine (SYNTHROID, LEVOTHROID) 75 MCG tablet Take 1 tablet (75 mcg total) by mouth in the morning. lisdexamfetamine (VYVANSE) 30 mg capsule Take 1 capsule (30 mg total) by mouth every morning. promethazine (PHENERGAN) 12.5 mg tablet Take 1 tablet (12.5 mg total) by mouth every 6 (six) hours as needed for nausea or vomiting. zolpidem (AMBIEN) 5 mg tablet Take 1 tablet (5 mg total) by mouth nightly as needed for sleep. ondansetron ODT (ZOFRAN ODT) 4 mg disintegrating tablet Dissolve 1 tablet (4 mg total) on tongue every 8 (eight) hours as needed for nausea. No current facility-administered medications on file prior to visit. Assessment/Plan: 1. Major depressive disorder, recurrent, severe without psychotic features (CMS-HCC) 2. Other specified hypothyroidism - Thyroid profile includes TSH FT4; Future Major depressive disorder, recurrent, severe without psychotic features (CMS-HCC) Symptoms improved since hospitalization. Patient denies any suicidal ideation. Continue with Pristiq 25 mg daily along with other medications. Follow with [facility] for psychiatric care Other specified hypothyroidism Last TSH from 12/01/24 showed TSH slightly decreased. With levothyroxine 75 mcg take 1 tablet daily except for 1 day per week when hold medication. Will recheck levels in 6-8 weeks Patient Instructions Continue to work toward stopping smoking and continue to be active with regular exercise to help with mood. Do not take levothyroxine 75 mcg one day per week but continue to take 1 tablet daily the other 6 days. Recheck blood work a couple of days before next appointment Follow up with [facility] Follow up 6-8 weeks hypothyroidism - Gelacio Jacome DO 12/18/24 12:15 PM documented in this encounter [employer] 12-18-2024 Instructions Gelacio Jacome DO - 12/18/2024 11:30 AM EDT Continue to work toward stopping smoking and continue to be active with regular exercise to help with mood. Do not take levothyroxine 75 mcg one day per week but continue to take 1 tablet daily the other 6 days. Recheck blood work a couple of days before next appointment Follow up with [facility] documented in this encounter [facility] 12-06-2024 Miscellaneous Notes Formattin g of this note might be different from the original. Office received discharge summary from [facility]. Patient was admitted on 11/20/2024 and discharged on 12/03/2024. Boring Machine Operator Helper called patient to see if patient would like to schedule transitional care visit in office. Patient states that she is in [place] at the moment, and will call office on Tuesday to schedule an appointment as she would like to be seen in office for check up/medication refill. Did not schedule appointment at this time. documented in this encounter [facility] 12-06-2024 Telephone encount er Note [facility] [facility]. Patient was admitted on 11/20/2024 and discharged on 12/03/2024. Boring Machine Operator Helper called patient to see if patient would like to schedule transitional care visit in office. Patient states that she is in [place] at the moment, and will call office on Tuesday to schedule an appointment as she would like to be seen in office for check up/medication refill. Did not schedule appointment at this time. [facility] 12-03-2024 Discharge summary [facility] 12-02-2024 Progress note Note Date/Time December 02, 2024 1:53pm [facility] [address] [place] [address] Psychiatry Progress Note Signed Patient: Debra Scott MR#: [id number] : 1975 Acct:[id number] Age/Sex: 49 / F Adm Date: 5 Loc: Room: [address] [place] [address] Type : ADM IN Attending Dr: Olvin Rollins MD Copies to: ~ Date of Service: 12/02/2024 Subjective Subjective Narrative: Ms. Scott states that overall she feels better. Patient was started on Pristiq yesterday and states that this made her feel weird and tired. Patient is willing to continue the medication and see how it goes. Patient states her anxiety is always 5/10 and attributes this to menopause and family stressors. Patient states that she is worried about her sister whom she is very close to. Patient rates depression 3/10. She denies any AVH, HI, SI. Patient once again expresses interest in Spravato treatment as outpatient. Patient was personally seen by me on the day of the encounter. I reviewed the history and performed the jaimes elements of the assessment. I formulated the planof care and confirmed this with the medical student as noted below Mental Status Exam: Appearance: grossly normal Mental Status: mental status grossly normal Mood: anxious Affect: congruent affect Speech and Movement: speech clear, movement normal Attitude: cooperative Thought Process: normal Thought Content: Denied hallucinations, no homicidality, no suicidality. Insight: fair Judgment: fair Exam Physical Exam Vital Signs: Temp Pulse Resp BP Pulse Ox O2 Del Method 98.0 F 69 16 112/68 95 Room Air 12/01/24 19:55 12/01/24 19:55 12/01/24 19:55 12/01/24 19:55 12/01/24 19:55 12/01/24 19:55 Objective Labs Labs: Abnormal Labs 12/01/24 07:27 LDL Cholesterol, Calc 110 H Free T4 1.22 H TSH 3rd Generation 0.13 L Assessment/Plan Assessment/Plan (1) Suicidal ideation: (2) Mood disorder: (3) Cocaine abuse: Plan Patient is depressed, anxious, and has intermittent SI. Continue Xanax 1 mg twice daily, Vyvanse 30 mg daily Continue Pristiq 25 mg daily Provided number for patient to contact regarding interest in Spravato treatment. Continue to monitor mental status Risk benefits and indications discussed Encourage medication compliance and group participation Documented By: Olvin Rollins MD 1 [id number] Signed By: <Electronically signed by Olvin Rollins MD> 12/02/24 4769 [facility] Work Phone: 1(961) 174-587603-02-2025 [place] [address] Psychiatry Progress Note Signed Patient: Debra Scott MR#: [id number] : 1975 Acct:[id number] Age/Sex: 49 / F Adm Date: 5 Loc: Room: [address] [place] [address] Type : ADM IN Attending Dr: Olvin Rollins MD Copies to: ~ Date of Service: 12/02/2024 Subjective Subjective Narrative: Ms. Scott states that overall she feels better. Patient was started on Pristiq yesterday and statesthat this made her feel weird and tired. Patient is willing to continue the medication and see how it goes. Patient states her anxiety is always 5/10 and attributes this to menopause and family stressors. Patient states that she is worried about her sister whom she is very close to. Patient ratesdepression 3/10. She denies any AVH, HI, SI. Patient once again expresses interest in Spravato treatment as outpatient. Patient was personally seen by me on the day of the encounter. I reviewed the history and performedthe jaimes elements of the assessment. I formulated the planof care and confirmed this with the medical student as noted below Mental Status Exam: Appearance: grossly normal Mental Status: mental status grossly normal Mood: anxious Affect: congruent affect Speech and Movement: speech clear, movement normal Attitude: cooperative Thought Process: normal Thought Content: Denied hallucinations, no homicidality, no suicidality. Insight: fair Judgment: fair Exam Physical Exam Vital Signs: Temp Pulse Resp BP Pulse Ox O2 Del Method 98.0 F 69 16 112/68 95 Room Air 12/01/24 19:55 12/01/24 19:55 12/01/24 19:55 12/01/24 19:55 12/01/24 19:55 12/01/24 19:55 Objective Labs Labs: Abnormal Labs 12/01/24 07:27 LDL Cholesterol, Calc 110 H Free T4 1.22 H TSH 3rd Generation 0.13 L Assessment/Plan Assessment/Plan (1) Suicidal ideation: (2) Mood disorder: (3) Cocaine abuse: Plan Patient is depressed, anxious, and has intermittent SI. Continue Xanax 1 mg twice daily, Vyvanse 30 mg daily Continue Pristiq 25 mg daily Provided number for patient to contact regarding interest in Spravato treatment. Continue to monitor mental status Risk benefits and indications discussed Encourage medication compliance and group participation Documented By: Olvin Rollins MD 5 [id number] Signed By: 12/02/24 1353 [facility]03-01-2025 History and physical note Author Olvin tavares [facility] Note Date/Time December 01, 2024 2:00 pm [facility] [address] [place] [address] Psychiatry H&P Signed Patient: Debra Scott MR#: [id number] : 1975 Acct:[id number] Age/Sex: 49 / F Adm Date: 5 Loc: 1S Room: [address] [place] [address] Type: ADM IN Attending Dr: Olvin Rollins MD Copies to: MD Michelle Ibanez NP-C~ Date of Service: 12/01/2024 HPI History of Present Illness History of present illness: Ms. Scott is a 49 year old female who upon admission stated anxiety 7/10 and depression 9/10 with 10 being the worst. Patient denies any suicidal ideations, homicidal ideations, or any auditory or visual hallucinations at this time. Patient states that she believes she has seasonal depression and that is why sheis here. Patient stated that last week she drove to [facility] with her sister and parked in the parking lot with the intention of coming in to be admitted to [address] [place] [address], patient decided not to at that time. Per report from [facility], patient was suicidal with a plan to cut self. Patient stated that recently she has had some triggers due to family conflict, a family member being diagnosed with cancer, and her grandson being still born in 2022. Patient stated that these triggers have lead her to feeling overwhelmed, hopeless, and worthless. Patient states that she has been compliant with her medications, but feels theremight need to be changes with some of her medication. Patient agrees to safety contract with staff while on unit. Patient was personally seen by me on the day of the encounter. I reviewed the history and performed the jaimes elements of the assessment. I formulated the planof care and confirmed this with the medical student as noted below At the time of interview, she reports depression and anxiety rated 7/10. She reports intermittent SI. Denies AVH. She reports that she has been sleeping more, wanting to sleep during the day and then being unable to fall asleep at night. She feels that she is struggling with seasonal depression, but also has a lot of life stressors at this time. He states that she has been isolating more, not enjoying things anymore, having anxiety, and binge eating. She also reports that she has been going through menopause and this has been very difficult for her. She expresses that her medications are not helping her as much as she would like and she is interested in Spravato treatment. Throughout the interview she is pleasant, calm and cooperative. Past psych history: Bipolar, ADHD Past hospitalizations: Several for SI, some were drug-related Past suicide attempts: Several, overdoses and cutting wrists Family psych history: Patient reports that her maternal grandfather was bipolar and her father has anxiety and depression Previous medications: Xanax, Vyvanse, bupropion Alcohol and drug use: Occasional marijuana use, denies alcohol use Living: Lives at home in her apartment feels safe there Employment: Unemployed on disability Review of symptoms: Constitutional: Denies chills, fever Eyes: Denies change in vision ENT: Denies abnormal hearing Cardiovascular: Denies chest pain Respiratory: Denies chest congestion and cough Gastrointestinal: Denies change in bowel habits Genitourinary: Denies dysuria Musculoskeletal: Denies atrophy and myalgias Integumentary/Breasts: Denies dry skin Neurologic: Denies abnormal gait and abnormal movements Psychiatric: Reports depression and anxiety Physical exam: Const: cooperative Nutritional Appearance: healthy Orientation: alert, awake and oriented x3 HEENT: Head normal to inspection, hearing grossly normal bilaterally, external nose normal, face symmetric Eyes: appearance normal, both eyes and all related structures, sclerae normal Neck: normal visual inspection and full ROM Resp: normal respiratory effort, able to speak in complete sentences and symmetric chest movement Cardio: regular rate, regular rhythm GI: normal to inspection and non-distended : deferred Skin: no rashes or lesions noted Neuro: CN II-XII intact Extrem: full ROM Mental Status Exam: Appearance: grossly normal Mental Status: mental status grossly normal Mood: dysthymic mood Affect: congruent affect Speech and Movement: speech clear, movement normal Attitude: cooperative Thought Process: normal Thought Content: Denied hallucinations, no homicidality, no suicidality. Insight: fair Judgment: fair [facility] Medical History (Updated 12/01/24 @ 13:59 by Olvin Rollins MD) Menopause Depression Panic disorder PTSD (post-traumatic stress disorder) Hyperlipidemia Stroke Irritable bowel disease GERD (gastroesophageal reflux disease) Head injury 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 Rheumatoid arthritis Hepatitis C Hypothyroid Hypertension Anxiety Bipolar 1 disorder, depressed, mild Surgical History History of Cervical vertebral fusion C5/C6 Titanium Black H/O: hysterectomy Family History Father Alcohol abuse Mental health disorder Hypertension Grandparent Alcohol abuse History of open heart surgery Mental health disorder Grandchild Father Social History Smoking Status: Current every day smoker Tobacco Type: cigarettes Substance Use Type: Marijuana Substance Abuse Comment: 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 Social History Comments: Patient lives in an apartment by herself Meds Medications and Allergies Allergies metronidazole (From Flagyl) Allergy (Unknown, Verified 07/14/24 23:41) Vomiting nalbuphine (From Nubain) Allergy (Unknown, Verified 07/14/24 23:41) Unknown Reaction sulfamethoxazole (From Bactrim) Allergy (Unknown, Verified 07/14/24 23:41) Vomiting tramadol (From Ultram) Allergy (Unknown, Verified 07/14/24 23:41) Seizure trimethoprim (From Bactrim) Allergy (Unknown, Verified 07/14/24 23:41) Vomiting buspirone (From BuSpar) Adverse Reaction (Verified 07/14/24 23:41) Anxiety diphenhydramine (From Benadryl) Adverse Reaction (Verified 07/14/24 23:41) Anxiety hydroxyzine (From Vistaril) Adverse Reaction (Verified 07/14/24 23:41) Agitated olanzapine (From Zyprexa) Adverse Reaction (Verified 07/14/24 23:41) Unknown Reaction Home Medications alprazolam 1 mg tablet 1 mg PO BID 30 days #60 tabs 10/11/23 [Rx Confirmed 11/30/24] levothyroxine 75 mcg tablet 75 mcg PO QAM 30 days #30 tabs 01/20/24 [Rx Confirmed 11/30/24] bupropion HCl 300 mg 24 hr tablet, extended release 300 mg PO DAILY 11/30/24 [History Confirmed 11/30/24] lisdexamfetamine 30 mg capsule (Vyvanse) 30 mg PO DAILY 11/30/24 [History Confirmed 11/30/24] Exam Physical Exam Vital Signs: Temp Pulse Resp BP Pulse Ox O2 Del Method 97.8 F 93 16 124/88 97 Room Air 11/30/24 19:38 11/30/24 19:38 11/30/24 19:38 11/30/24 19:38 11/30/24 19:38 11/30/24 19:38 Assessment/Plan (1) Suicidal ideation: (2) Cocaine abuse: (3) Mood disorder: Plan Patient is depressed, anxious, and has intermittent SI. Continue Xanax 1 mg twice daily, Vyvanse 30 mg daily Will stop bupropion Start Pristiq 25 mg daily Continue to monitor mental status Risk benefits and indications discussed Encourage medication compliance and group participation Documented By: Olvin Rollins MD 5 [id number] Signed By: <Electronically signed by Olvin Rollins MD> 12/01/[address] [place] [address] Work Phone: 1(932) 529-509503-01-2025 [place] [address] Psychiatry H&P Signed Patient: Debra Scott MR#: [id number] : 1975 Acct:[id number] Age/Sex: 49 / F Adm Date: 5 Loc: Room: [address] [place] [address] Type: ADM IN Attending Dr: Olvin Rollins MD Copies to: MD Michelle Ibanez NP-C~ Date of Service: 12/01/2024 HPI History of Present Illness History of present illness: Ms. Scott is a 49 year old female who upon admission stated anxiety 7/10 and depression 9/10 with 10 being the worst. Patient denies any suicidal ideations, homicidal ideations, or any auditory or visual hallucinations at this time. Patient states that she believes she has seasonal depression and that is why sheis here. Patient stated that last week she drove to [facility] with her sister and parked in the parking lot with the intention of coming in to be admitted to [address] [place] [address], patient decided notto at that time. Per report from [facility], patient was suicidal with a plan to cut self. Patientstated that recently she has had some triggers due to family conflict, a family member being diagnosed with cancer, and her grandson being still born in 2022. Patient stated that these triggers have lead her to feeling overwhelmed, hopeless, and worthless. Patient states that she has been compliantwith her medications, but feels theremight need to be changes with some of her medication. Patient agrees to safety contract with staff while on unit. Patient was personally seen by me on the day of the encounter. I reviewed the history and performedthe jaimes elements of the assessment. I formulated the planof care and confirmed this with the medical student as noted below At the time of interview, she reports depression and anxiety rated 7/10. She reports intermittent SI. Denies AVH. She reports that she has been sleeping more, wanting to sleep during the day and thenbeing unable to fall asleep at night. She feels that she is struggling with seasonal depression, but also has a lot of life stressors at this time. He states that she has been isolating more, not enjoying things anymore, having anxiety, and binge eating. She also reports that she has been going through menopause and this has been very difficult for her. She expresses that her medications are not helping her as much as she would like and she is interested in Spravato treatment. Throughout the interview she is pleasant, calm and cooperative. Past psych history: Bipolar, ADHD Past hospitalizations: Several for SI, some were drug-related Past suicide attempts: Several, overdoses and cutting wrists Family psych history: Patient reports that her maternal grandfather was bipolar and her father has anxiety and depression Previous medications: Xanax, Vyvanse, bupropion Alcohol and drug use: Occasional marijuana use, denies alcohol use Living: Lives at home in her apartment feels safe there Employment: Unemployed on disability Review of symptoms: Constitutional: Denies chills, fever Eyes: Denies change in vision ENT: Denies abnormal hearing Cardiovascular: Denies chest pain Respiratory: Denies chest congestion and cough Gastrointestinal: Denies change in bowel habits Genitourinary: Denies dysuria Musculoskeletal: Denies atrophy and myalgias Integumentary/Breasts: Denies dry skin Neurologic: Denies abnormal gait and abnormal movements Psychiatric: Reports depression and anxiety Physical exam: Const: cooperative Nutritional Appearance: healthy Orientation: alert, awake and oriented x3 HEENT: Head normal to inspection, hearing grossly normal bilaterally, external nose normal, face symmetric Eyes: appearance normal, both eyes and all related structures, sclerae normal Neck: normal visual inspection and full ROM Resp: normal respiratory effort, able to speak in complete sentences and symmetric chest movement Cardio: regular rate, regular rhythm GI: normal to inspection and non-distended : deferred Skin: no rashes or lesions noted Neuro: CN II-XII intact Extrem: full ROM Mental Status Exam: Appearance: grossly normal Mental Status: mental status grossly normal Mood: dysthymic mood Affect: congruent affect Speech and Movement: speech clear, movement normal Attitude: cooperative Thought Process: normal Thought Content: Denied hallucinations, no homicidality, no suicidality. Insight: fair Judgment: fair [facility] Medical History (Updated 12/01/24 @ 13:59 by Olvin Rollins MD) Menopause Depression Panic disorder PTSD (post-traumatic stress disorder) Hyperlipidemia Stroke Irritable bowel disease GERD (gastroesophageal reflux disease) Head injury 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 Rheumatoid arthritis Hepatitis C Hypothyroid Hypertension Anxiety Bipolar 1 disorder, depressed, mild Surgical History History of Cervical vertebral fusion C5/C6 Titanium Black H/O: hysterectomy Family History Father Alcohol abuse Mental health disorder Hypertension Grandparent Alcohol abuse History of open heart surgery Mental health disorder Grandchild Father Social History Smoking Status: Current every day smoker Tobacco Type: cigarettes Substance Use Type: Marijuana Substance Abuse Comment: 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 Social History Comments: Patient lives in an apartment by herself Meds Medications and Allergies Allergies metronidazole (From Flagyl) Allergy (Unknown, Verified 07/14/24 23:41) Vomiting nalbuphine (From Nubain) Allergy (Unknown, Verified 07/14/24 23:41) Unknown Reaction sulfamethoxazole (From Bactrim) Allergy (Unknown, Verified 07/14/24 23:41) Vomiting tramadol (From Ultram) Allergy (Unknown, Verified 07/14/24 23:41) Seizure trimethoprim (From Bactrim) Allergy (Unknown, Verified 07/14/24 23:41) Vomiting buspirone (From BuSpar) Adverse Reaction (Verified 07/14/24 23:41) Anxiety diphenhydramine (From Benadryl) Adverse Reaction (Verified 07/14/24 23:41) Anxiety hydroxyzine (From Vistaril) Adverse Reaction (Verified 07/14/24 23:41) Agitated olanzapine (From Zyprexa) Adverse Reaction (Verified 07/14/24 23:41) Unknown Reaction Home Medications alprazolam 1 mg tablet 1 mg PO BID 30 days #60 tabs 10/11/23 [Rx Confirmed 11/30/24] levothyroxine 75 mcg tablet 75 mcg PO QAM 30 days #30 tabs 01/20/24 [Rx Confirmed 11/30/24] bupropion HCl 300 mg 24 hr tablet, extended release 300 mg PO DAILY 11/30/24 [History Confirmed 11/30/24] lisdexamfetamine 30 mg capsule (Vyvanse) 30 mg PO DAILY 11/30/24 [History Confirmed 11/30/24] Exam Physical Exam Vital Signs: Temp Pulse Resp BP Pulse Ox O2 Del Method 97.8 F 93 16 124/88 97 Room Air 11/30/24 19:38 11/30/24 19:38 11/30/24 19:38 11/30/24 19:38 11/30/24 19:38 11/30/24 19:38 Assessment/Plan (1) Suicidal ideation: (2) Cocaine abuse: (3) Mood disorder: Plan Patient is depressed, anxious, and has intermittent SI. Continue Xanax 1 mg twice daily, Vyvanse 30 mg daily Will stop bupropion Start Pristiq 25 mg daily Continue to monitor mental status Risk benefits and indications discussed Encourage medication compliance and group participation Documented By: Olvin Rollins MD 5 [id number] Signed By: 12/01/24 1400 [facility]02-28-2025 Evaluation note* Diagnosis Onset Date Resolution Status Admit Date Cocaine abuse acute November 302024 5:19pm Mood disorder acute November 302024 5:19pm Suicidal ideation acute uar 2024 5:19pm [facility] Work Phone: 1(509) 654-173410-30-2024 Miscellaneous Notes* Telephone Encounter - Tessie John CMA - 08/01/2024 11:51 AM EDT Referral received from PCP for HCV Left message with patient to call back to schedule appointment 07/26/2024 HCV Viral Load 486,000 Abnormal * Telephone Encounter - Tessie John CMA - 08/01/2024 11:51 AM EDT Second attempt to contact patient to schedule office visit for Hepatitis C * Telephone Encounter - Tessie John CMA - 08/01/2024 11:51 AM EDT Left message for patient to call back to schedule appointment [facility] Telephone encounter Note* Telephone Encounter - Tessie John CMA - 08/01/2024 11:51 AM EDT Referral received from PCP for HCV Left message with patient to call back to schedule appointment 07/26/2024 HCV Viral Load 486,000 Abnormal [facility] [id number] Telephone encounter Note* Telephone Encounter - Tessie John CMA - 08/01/2024 11:51 AM EDT Second attempt to contact patient to schedule office visit for Hepatitis C [facility]10-30-2024 Telephone encounter Note* Telephone Encounter - Tessie John CMA - 08/01/2024 11:51 AM EDT Left message for patient to call back to schedule appointment [facility]10-17-2024 Telephone encounter Note* Telephone Encounter - CHAVA Saucedo - 07/19/2024 11:17 AM EDT Call placed to Lili Woo Md who is listed as patient's PCP. Patient was recently released from [facility] due to depression and was a no call no show for her appointment this morning at 10 am. [id number] Miscellaneous Notes* Telephone Encounter - CHAVA Saucedo - 07/19/2024 11:17 AM EDT Call placed to Lili Woo Md who is listed as patient's PCP. Patient was recently released from [facility] due to depression and was a no call no show for her appointment this morning at 10 am. [facility] encounter[facility] [id number] Discharge summary Author Miah Abreu [facility] July 17, 2024 2:07pm Note Date/Time July 17, 2024 1 1:09am [facility] [address] [place] [address] Discharge Summary Signed Patient: Debra Scott MR#: [id number] : 1975 Acct:[id number] Age/Sex: 49 / F Adm Date: 4 Loc: 1S Room: [address] [place] [address]: Olvin Rollins MD Copies to: MD Miah Ibanez MD Alexandra K Rojas, MEDIA STRATEGIST-C~ Providers Date of Discharge: 07/17/24 Discharging Provider: Miah Abreu Primary Care Provider: 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 Consults: 07/15/24 01:27 Consult to Case Management Routine Comment: LUZ ELENA Reason for Consult: Public Speaking Professor-General 07/15/24 07:56 Consult to Adult Hospitalist Routine Comment: Consulting Provider: Community Hospitalist (Adult) Reason For Exam: upper GI abdominal pain and nausea Has Provider Been Notified: Yes Date of Notification: 07/15/24 Time of Notification: 08:12 Discharge Diagnosis (1) Cocaine abuse: (2) Acute anxiety: (3) Major depress dis, severe: (4) Generalized anxiety disorder: Final Diagnosis Final Discharge Diagnosis: Depressive disorder generalized anxiety disorder Stimulant use disorder Summary Hospital Course Hospital course: Ms. Scott is a 49 year old female?with a reported history of ADHD, anxiety, and depression?who presents for inpatient treatment due to?anxiety, nausea, SI and severe depression. Reportedly, patient presented here voluntarily with some SI, nauseousness from anxiety, and feeling hopeless. Patient was personally seen by me on the day of the encounter. I reviewed the history and performed the jaimes elements of the assessment. I formulated the planof care and confirmed this with the medical student as noted below At the time of the interview, she presented as depressed. Patient became tearfulwhen explaining why she was here. Patient reports anxiety that makes her nauseous as well as depression. Patient wants a reset and to get herself together because she feels like she is not doing well. Patient states July coral hard month because she lost a lot of family members over the years around [facility]. Patient reports her one aunt is in hospice now, so she is going to lose her soon as well. Patient seems very depressed and tearful but when asked her history, patient gets irritable. Patient states that he got misdiagnosed with bipolar 2 disorder and that she does not have that. Patient also states that she will not take any anti-depressants or anti-psychotics. Patient reports that SSRIs maker her suicidal and last summer she cut her wrist because of the SSRIs. Patient reports she is on Vyvanse and Xanax currently. Patient denies anycurrent drug use or Hx drug use, but previous patient records report previous cocaine abuse and crack use. Past psych history: ADHD, anxiety, depression Past hospitalizations: Previous [address] [place] [address] admission February 2024 for depressive episode and 2022 for acute anxiety Past suicide attempts: last summer - slit wrists; at least 6 previous attempts since teenage years Previous medications: Wellbutrin, Klonopin, Vyvanse Alcohol and drug use: Reports no alcohol use, +marijuana use ? Living: lives alone Employment: disability Patient was started on doxepin to help manage her depression and anxiety. She tolerated the medication without any problems and did not report any side effects. She denied any suicidal thoughts throughout her hospitalization. She did not exhibit any behavior concerning for suicidality. She did not have any conflict with peers or staff. She attended groups and socialize with peers. She did complain of some nausea which was an ongoing chronic issue. Her anxietyalso improved as time went on and she felt that the medication was helpful. On the day of discharge, she reported that she is feeling good. Denied any depression or suicidality. She was comfortable with the discharge plan home andfollowing up with outpatient services. Condition Condition at Discharge: Stable Status at Discharge Cognitive/behavioral status at discharge: Mental Status Exam: Appearance: grossly normal Mental Status: mental status grossly normal Mood: Euthymic mood Affect: Normal affect Speech and Movement: speech normal, movement normal Attitude: cooperative Thought Process: normal Thought Content: Denied hallucinations, no homicidality and no suicidality Insight: Good Judgment: Good Functional status at discharge: independent ambulation Overall status at discharge: patient is back to baseline Time Spent with Patient Time spent providing/coordinating discharge services (# min): 30 Discharge Plan Discharge Plan Patient Disposition: Home Activity: No Activity Restriction Diet: Regular Additional Instructions: Important Contact Information You can call [facility] at [phone] any time day or night if you have emergent questions or question regarding discharge instructions. If at any time you are feeling an increase inyour psychiatric symptoms, call your physician or behavioral healthcare provider. If any time you have thoughts of harming yourself or others contact one of the following: Call (available 25/04) Crisis Text Line (available 25/04) text 4HOPE to [phone] [facility] Hope Line (available 8 a.m. Midnight) call [phone] ([phone]) Regular Diet No Activity Restrictions Instructions: Depression, Adult (DC), [facility] [place] Instructions, Know your Meds Prescriptions: New pantoprazole 40 mg Tablet,Delayed Release (Dr/Ec) 40 mg PO BID 60 Days Qty: 120 0RF promethazine 12.5 mg Tablet 12.5 mg PO Q8HR PRN (Reason: Nausea And Vomiting) Qty: 60 0RF doxepin 10 mg Capsule 10 mg PO QHS 30 Days Qty: 30 0RF doxepin 10 mg Capsule 10 mg PO DAILY PRN (Reason: Anxiety) Qty: 30 0RF famotidine 20 mg Tablet 20 mg PO DAILY 30 Days Qty: 30 0RF nicotine 21 mg/24 hr Patch 24 Hour 21 mg transdermal DAILY Qty: 20 0RF ondansetron 4 mg Tablet,Disintegrating 4 mg PO Q4HR PRN (Reason: Nausea And Vomiting) Qty: 60 0RF Continued alprazolam 1 mg tablet 1 mg PO BID 30 Days Qty: 60 0RF levothyroxine 75 mcg tablet 75 mcg PO QAM 30 Days Qty: 30 0RF estradiol 0.5 mg tablet 0.5 mg PO DAILY zolpidem 5 mg tablet 5 mg PO HS Discontinued lisdexamfetamine [Vyvanse] 30 mg capsule 30 mg PO DAILY 7 Days Qty: 7 0RF Follow Up: Cam Badillo [Other] - 07/19/24 10:00 am (Therapy appointment on 07/19 at 10am) 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 NP-C [Primary Care Provider] - 07/26/24 11:00 am (You have anappointment with Dr. Neri on 07/26 at 11am.) Exam Physical Exam Vital Signs: Temp Pulse Resp BP Pulse Ox O2 Del Method 97.6 F 69 16 116/80 97 Room Air 07/17/24 07:30 07/17/24 07:30 07/17/24 07:30 07/17/24 07:30 07/17/24 07:30 07/17/24 07:30 Documented By: Miah Abreu MD 07/17/24 110 Signed By: <Electronically signed by Miah Abreu MD> 07/17/24 1409 [facility] Work Phone: 1(812) 373-243810-14-2024 Progress note Author Miah Abreu [facility] July 16, 2024 1:51pm Note Date/Time July 16, 2024 1 2:16pm [facility] [address] [place] [address] Psychiatry Progress Note Signed Patient: Debra Scott MR#: [id number] : 1975 Acct:[id number] Age/Sex: 49 / F Adm Date: 4 Loc: Room: [address] [place] [address] Type : ADM IN Attending Dr: Olvin Rollins MD Copies to: ~ Date of Service: 07/16/2024 Subjective Subjective Narrative: Ms. Scott is a 49 year old female on day 2 of hospitalization for depression, anxiety, and SI. Today, pt presented as sleepy and nauseous. Patient reports that Doxepin made her sleep really well and helped her nausea. Patient reports she feels 80% better than yesterday. Sleeping and eating; not eating full meals but eating more than she was prior toadmission Attending group Denies hallucinations Denies SI/HI tolerating current meds MSE Appearance: grossly normal. Fair grooming and hygiene, calm, cooperative, engaged in the interview. Good eye contact. Normal psychomotor activity. Mental Status: mental status grossly normal Mood: tired Affect: mood-congruent affect Speech and Movement: speech and movement normal. Regular rate, rhythm, volume, and tone. Non pressured. Attitude: cooperative Thought Process: normal; linear, logical, and goal-oriented Thought Content:Denies paranoid or delusional thoughts. Denied hallucinations, no homicidality and no suicidality. Does not appear to be responding to internalstimuli. Insight: limited , emerging Judgment: limited Patient was personally seen by me on the day of the encounter. I reviewed the history and performed the jaimes elements of the physical examination. I formulated the plan of care and confirmed this with the medical student as notedbelow. Exam Physical Exam Vital Signs: Temp Pulse Resp BP Pulse Ox O2 Del Method 97.5 F L 66 16 112/71 95 Room Air 07/16/24 07:30 07/16/24 07:30 07/16/24 07:30 07/16/24 07:30 07/16/24 07:30 07/16/24 09:00 Objective Labs Labs: Abnormal Labs 07/15/24 07/15/24 10:43 10:55 AST 61 H ALT 72 H Ur Leukocyte Esterase 3+ H Urine WBC 5-9 H Ur Squamous Epith Cells 5-9 H Assessment/Plan Assessment/Plan (1) Cocaine abuse: (2) Acute anxiety: (3) Major depress dis, severe: (4) Generalized anxiety disorder: Plan Plan: Patient presents as sleepy and nauseous. -Continue Doxepin 10mg HS and PRN, Xanax 1mg PO BID, and Ambien 5mg PO HS Will add doxepin daily as needed for anxiety -Continue to monitor mental status -Monitor suicidal behaviors for safety of self (15-minute face check). -Encourage medication adherence. Risks, benefits, and alternatives of treatment explained -Recommend? attending groups and psychoeducation for building coping skills. -Risks, benefits and indications of medications were discussed with the patient.? -No abnormal movements noted on exam. AIMS is Zero. -Involve friends/family members to coordinate care and ensure appropriate outpatient appointments are scheduled prior to discharge. Documented By: Miah Abreu MD 07/16/24 1029 Signed By: <Electronically signed by Miah Abreu MD> 07/16/24 1358 [facility] Work Phone: 1(820) 714-942710-14-2024 Consult note Author Gelacio Callahan [facility] July 15, 2024 11:17pm Note Date/Time July 15, 2024 5 :00pm [facility] [address] [place] [address] Hospitalist Consult Note Signed Patient: Debra Scott MR#: [id number] : 1975 Acct:[id number] Age/Sex: 49 / F Adm Date: 4 Loc: 1S Room: [address] [place] [address] Type: ADM IN Attending Dr: Olvin Rollins MD Copies to: MD Michelle Ibanez, MEDIA STRATEGIST-C Adele Hunter, TANNER Callahan, DO~ HPI DATE OF CONSULTATION: 07/15/24 REQUESTING PROVIDER: Olvin Rollins Consult Narrative Reason for Consult: abdominal pain, nausea HPI: 49-year-old female past medical history significant for hyperlipidemia, CVA, IBS, GERD, seizure, rheumatoid arthritis, hepatitis C, hypertension, hypothyroid, depression. Presented to the emergency department at outside hospital yesterday with mental health complaints. She was transferred to the inpatient psychiatric unit here at [facility] for further management. Hospitalist team is now consulted for report of abdominal pain and nausea. Patient seen and examined. Prior to seeing the patient this morning as she was reporting indigestion to the patient's I did go ahead and order pantoprazole. She had only 8 bites of breakfast but was able to eat 90% of her lunch today. She advised nursing prior to my seeing her that the pantoprazole had made a difference and she was improved. Symptoms are still present and more in the epigastric area, she has no sternal tenderness or difficulty swallowing/sore throat. She does not use NSAIDs and avoids these with her liver history, deniesalcohol. Denies chest pain or palpitations. No cough, dyspnea, or pain with inspiration. Denies bowel changes?no melena or black stool, no constipation or diarrhea. No dysuria or retention. No headache or dizziness. No fevers or chills. Review of Systems Review of Systems All other systems reviewed & are negative unless noted below or in HPI [facility] Medical History (Updated 07/15/24 @ 17:12 by Adele Hunter APRN) Menopause Depression Panic disorder PTSD (post-traumatic stress disorder) Hyperlipidemia Stroke Irritable bowel disease GERD (gastroesophageal reflux disease) Head injury 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 Rheumatoid arthritis Hepatitis C Hypothyroid Hypertension Anxiety Bipolar 1 disorder, depressed, mild Surgical History History of Cervical vertebral fusion C5/C6 Titanium Black H/O: hysterectomy Family History Father Alcohol abuse Mental health disorder Hypertension Grandparent Alcohol abuse History of open heart surgery Mental health disorder Grandchild Father Social History Smoking Status: Current every day smoker Tobacco Type: cigarettes Substance Use Type: Crack and Cocaine Substance Abuse Comment: 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 Social History Comments: Patient lives in an apartment by herself Meds Medications and Allergies Allergies metronidazole [From Flagyl] Allergy (Unknown, Verified 07/14/24 23:41) Vomiting nalbuphine [From Nubain] Allergy (Unknown, Verified 07/14/24 23:41) Unknown Reaction sulfamethoxazole [From Bactrim] Allergy (Unknown, Verified 07/14/24 23:41) Vomiting tramadol [From Ultram] Allergy (Unknown, Verified 07/14/24 23:41) Seizure trimethoprim [From Bactrim] Allergy (Unknown, Verified 07/14/24 23:41) Vomiting buspirone [From BuSpar] Adverse Reaction (Verified 07/14/24 23:41) Anxiety diphenhydramine [From Benadryl] Adverse Reaction (Verified 07/14/24 23:41) Anxiety hydroxyzine [From Vistaril] Adverse Reaction (Verified 07/14/24 23:41) Agitated olanzapine [From Zyprexa] Adverse Reaction (Verified 07/14/24 23:41) Unknown Reaction Home Medications alprazolam 1 mg tablet 1 mg PO BID 30 days #60 tabs 10/11/23 [Rx Confirmed 07/14/24] lisdexamfetamine 30 mg capsule (Vyvanse) 30 mg PO DAILY 7 days #7 caps 10/13/23 [Rx Confirmed 07/14/24] levothyroxine 75 mcg tablet 75 mcg PO QAM 30 days #30 tabs 01/20/24 [Rx Confirmed 07/14/24] estradiol 0.5 mg tablet 0.5 mg PO DAILY 07/14/24 [History Confirmed 07/14/24] zolpidem 5 mg tablet 5 mg PO HS 07/14/24 [History Confirmed 07/15/24] pantoprazole 40 mg tablet,delayed release 40 mg PO BID 60 days #120 tabs 07/15/24 [Rx] Active Medications: Active Medications Generic Name Dose Route Start Last Admin Trade Name Freq PRN Reason Stop Dose Admin Acetaminophen 500 mg 07/14/24 23:34 Acetaminophen 500 Mg Tablet PO 07/14/25 23:33 Q6H PRN Fever or Pain Al Hydrox/Mg Hydrox/Simethicone 30 ml 07/14/24 23:34 Mag Hydrox/Al Hydrox/Simeth 30 Ml Udc PO 07/14/25 23:33 Q6H PRN Indigestion Alprazolam 1 mg 07/15/24 09:00 07/15/24 08:29 Alprazolam 0.5 Mg Tablet PO 01/11/25 08:59 1 mg BID MAGGIE Administration Benztropine Mesylate 0.5 mg 07/14/24 23:34 Benztropine 2 Mg/2 Ml Ampul IM 07/14/25 23:33 Q6H PRN Dystonia Benztropine Mesylate 0.5 mg 07/14/24 23:34 Benztropine 0.5 Mg Tablet PO 07/14/25 23:33 Q6H PRN Dystonia Doxepin HCl 10 mg 07/15/24 07:57 Doxepin 10 Mg Capsule PO 07/15/25 21:59 QHS PRN insomnia Doxepin HCl 10 mg 07/15/24 22:00 Doxepin 10 Mg Capsule PO 07/15/25 21:59 QHS MAGGIE Estradiol 0.5 mg 07/15/24 09:00 07/15/24 08:29 Estradiol 0.5 Mg Tablet PO 07/15/25 08:59 Not Given DAILY MAGGIE Famotidine 20 mg 07/15/24 09:00 07/15/24 08:30 Famotidine 20 Mg Tablet PO 07/15/25 08:59 20 mg DAILY MAGGIE Administration Levothyroxine Sodium 75 mcg 07/15/24 06:30 07/15/24 05:53 Levothyroxine 75 Mcg Tablet PO 07/15/25 06:29 75 mcg DAILY.0630 MAGGIE Administration Magnesium Hydroxide 30 ml 07/14/24 23:34 Magnesium Hydroxide Susp 30 Ml Udc PO 07/14/25 23:33 Q6H PRN Constipation Nicotine 1 each 07/15/24 09:00 07/15/24 08:31 Nicotine Patch 21 Mg/24hr 1 Each Patch.Td24 TRANSDERML 08/25/24 09:01 1 each DAILY MAGGIE Administration Ondansetron HCl 4 mg 07/15/24 07:55 Ondansetron Odt 4 Mg Tab.Rapdis PO 07/15/25 07:54 Q4HR PRN Nausea And Vomiting Pantoprazole Sodium 40 mg 07/15/24 09:10 07/15/24 10:17 Pantoprazole 40 Mg Tablet.Dr PO 07/15/25 09:09 40 mg BID MAGGIE Administration Promethazine HCl 12.5 mg 07/15/24 07:56 07/15/24 08:33 Promethazine 12.5 Mg Tablet PO 07/15/25 07:55 12.5 mg Q8HR PRN Administration Nausea And Vomiting Trazodone HCl 50 mg 07/14/24 23:34 Trazodone 50 Mg Tablet PO 07/14/25 23:33 QHS PRN Insomnia Zolpidem Tartrate 5 mg 07/15/24 22:00 Zolpidem 5 Mg Tablet PO 01/11/25 21:59 HS MAGGIE Exam Physical Exam Vital Signs: Temp Pulse Resp BP Pulse Ox O2 Del Method 97.9 F 66 12 103/71 96 Room Air 07/15/24 07:30 07/15/24 07:30 07/15/24 07:30 07/15/24 07:30 07/15/24 07:30 07/15/24 07:30 Narrative: CONST- alert, ambulatory in unit HEAD- normocephalic and atraumatic EENT- sclera nonicteric and conjunctiva nonerythemic, moist oral mucosa, pharynx not visualized NECK- supple, no cervical lymphadenopathy CARDIAC- RRR no abnormal heart tones PULM- diminished without wheeze or rhonchi, RA, no accessory muscle use or cough noted ABD-soft, epigastric tenderness with no other abdominal tenderness with palpation, obese, NABS, no sternal tenderness EXTREM-trace edema BLE, calves nontender SKIN- W/D, good turgor MS- MAEx4 spontaneously with equal strength NEURO- A&Ox3, speech clear and tongue midline, equal facial symmetry PSYCH-mood and behavior appropriate Results - Hospitalist Consult Lab Results Labs: Laboratory Results - last 72 hr 07/15/24 10:55: Urine Color Colorless, Urine Appearance Clear, Urine pH 7.0, Ur Specific [place] 1.007, Urine Protein Negative, Urine Glucose (UA) Normal, Urine Ketones Negative, Urine Occult Blood Negative, Urine Nitrite Negative, Urine Bilirubin Negative, Urine Urobilinogen Normal, Ur Leukocyte Esterase 3+ H, Urine RBC 3-4, Urine WBC 5-9 H, Ur Squamous Epith Cells 5-9 H, Urine Bacteria Rare, Hyaline Casts None, Urine Mucus Rare 07/15/24 10:43: Corrected WBC 6.1, Uncorrected WBC Count 6.1, RBC 4.22, Hgb 14.0, Hct 41.3, MCV 97.9, MCH 33.3, MCHC 34.0, RDW 12.9, Plt Count 220, MPV 9.5, Neut % (Auto) 60.3, Lymph % (Auto) 27.7, [place] % (Auto) 8.9, Eos % (Auto) 2.4, Baso % (Auto) 0.7, Nucleat RBC Rel Count 0.1, Neut # (Auto) 3.7, Lymph # (Auto) 1.7, [place] # (Auto) 0.5, Eos # (Auto) 0.1, Baso # (Auto) 0.0, PHA Creatinine Clear 82.61, Sodium 139, Potassium 4.3, Chloride 106, Carbon Dioxide 25.7, Anion Gap 11.6, BUN 11, Creatinine 0.83, Est GFR (CKD-EPI) > 60.0, Glucose 86, Calcium 8.8, Total Bilirubin 0.5, AST 61 H, ALT 72 H, Alkaline Phosphatase 48, Total Protein 6.9, Albumin 4.1, Globulin 2.8, Albumin/Globulin Ratio 1.5, Lipase 36.0 07/15/24 06:33: Triglycerides 79, Cholesterol 178, LDL Cholesterol, Calc 115 H, VLDL Cholesterol 15, HDL Cholesterol 47, Cholesterol/HDL Ratio 3.8, 25-OH Vitamin D Total 47.6, TSH 3rd Generation 0.53 Microbiology Results Micro: 07/15/24 10:55 Urine Culture - Pending Urine - ##Change## Assessment & Plan Assessment/Plan (1) Hypothyroid: (2) Hormone replacement therapy: (3) GERD (gastroesophageal reflux disease): (4) History of hepatitis C: Plan GERD versus gastritis -Patient does not take any meds at home and symptom has been ongoing, denies NSAID use or alcohol -Symptom improved after PPI initiated. Will plan 30-day course of therapy, if recurrence after this she should follow-up with primary care for further evaluation -Lab with normal urinalysis, lipase normal, baseline liver functions, no anemia Chronic conditions 1. Hepatitis C?never treated, baseline liver functions 2. Hormone replacement status post hysterectomy?estradiol 3. Hypothyroid?levothyroxine Depression -Further plan of care per the inpatient psychiatric team for psychoactive medication management/adjustment and psychotherapy Documented By: Adele Hunter APRN 07/03 12/24 1700 Signed By: <Electronically signed by TANNER Hunter> 07/15/24 1713 <Electronically signed by Gelacio Callahan DO> 07/15/24 8996 [facility] Work Phone: 1(136) 336-940010-13-2024 History and physical note Author Olvin tavares [facility] July 15, 2024 5:43pm Note Date/Time July 15, 2024 1 2:15pm [facility] [address] [place] [address] Psychiatry H&P Signed Patient: Debra Scott MR#: [id number] : 1975 Acct:[id number] Age/Sex: 49 / F Adm Date: 4 Loc: Room: [address] [place] [address] Type: ADM IN Attending Dr: Olvin Rollins MD Copies to: MD Michelle Ibanez NP-C~ Date of Service: 07/15/2024 HPI History of Present Illness History of present illness: Ms. Scott is a 49 year old female?with a reported history of ADHD, anxiety, and depression?who presents for inpatient treatment due to?anxiety, nausea, SI and severe depression. Reportedly, patient presented here voluntarily with some SI, nauseousness from anxiety, and feeling hopeless. Patient was personally seen by me on the day of the encounter. I reviewed the history and performed the jaimes elements of the assessment. I formulated the planof care and confirmed this with the medical student as noted below At the time of the interview, she presented as depressed. Patient became tearfulwhen explaining why she was here. Patient reports anxiety that makes her nauseous as well as depression. Patient wants a reset and to get herself together because she feels like she is not doing well. Patient states July coral hard month because she lost a lot of family members over the years around [facility]. Patient reports her one aunt is in hospice now, so she is going to lose her soon as well. Patient seems very depressed and tearful but when asked her history, patient gets irritable. Patient states that he got misdiagnosed with bipolar 2 disorder and that she does not have that. Patient also states that she will not take any anti-depressants or anti-psychotics. Patient reports that SSRIs maker her suicidal and last summer she cut her wrist because of the SSRIs. Patient reports she is on Vyvanse and Xanax currently. Patient denies anycurrent drug use or Hx drug use, but previous patient records report previous cocaine abuse and crack use. Past psych history: ADHD, anxiety, depression Past hospitalizations: Previous admission February 2024 for depressive episode and 2022 for acute anxiety Past suicide attempts: last summer - slit wrists; at least 6 previous attempts since teenage years Previous medications: Wellbutrin, Klonopin, Vyvanse Alcohol and drug use: Reports no alcohol use, +marijuana use ? Living: lives alone Employment: disability Review of Systems Constitutional: Pt denies fatigue, malaise. Neuro: +seizures from tramadol in past. Denies dizziness/lightheadedness. DeniesTBI, seizure, memory loss. Denies numbness/tingling in extremities HEENT: +headaches.Denies vision/hearing changes. Pulmonary: Denies SOB, dyspnea, cough, wheezing. Cardiac: Denies chest pain/pressure. Denies edema, palpitations. GI: Denies abdominal pain, heartburn, N/V. Denies constipation and diarrhea : Denies dysuria, hematuria, polyuria. ? Physical exam General: not in any acute distress Skin: intact HEENT: head atraumatic, face symmetrical. Pulm: ?Breathing normally without excessive effort Cardio: Regular rate and rhythm Abdomen: Normal inspection Musculoskeletal: Moves all extremities, normal strength all extremities. Neuro: Pt alert, oriented x3. Gait normal. ? CNI: Intact, normal olfaction ? CNII: Visual david intact ? ? ?CNIII,IV,: EOM intact, no nystagmus. ? ? ?CNV: Sensation intact to light touch. ? ? ?CNVII: Raises eyebrows, smile/frown, puff out cheeks symmetrically. ? ? ?CNVIII: Hearing intact bilaterally. ? ? ?CNIX,X: Voice normal, soft palate elevation normal, symmetrical. ? ? ?CNXI: Shoulder shrug strong, equal bilaterally. ? ? ?CNXII: Tongue protrusion midline MSE Appearance: grossly normal. Fair grooming and hygiene, calm, cooperative, engaged in the interview. Good eye contact. Normal psychomotor activity. Mental Status: mental status grossly normal Mood: tearful Affect: mood-congruent affect Speech and Movement: speech and movement normal. Regular rate, rhythm, volume, and tone. Non pressured. Attitude: cooperative Thought Process: normal; linear, logical, and goal-oriented Thought Content: Denies paranoid or delusional thoughts. Denied hallucinations, no homicidality and intermittent suicidality. Does not appear to be responding to internal stimuli. Insight: limited , emerging Judgment: limited [facility] Medical History (Updated 07/15/24 @ 17:12 by Adele Hunter APRN) Menopause Depression Panic disorder PTSD (post-traumatic stress disorder) Hyperlipidemia Stroke Irritable bowel disease GERD (gastroesophageal reflux disease) Head injury 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 Rheumatoid arthritis Hepatitis C Hypothyroid Hypertension Anxiety Bipolar 1 disorder, depressed, mild Surgical History History of Cervical vertebral fusion C5/C6 Titanium Black H/O: hysterectomy Family History Father Alcohol abuse Mental health disorder Hypertension Grandparent Alcohol abuse History of open heart surgery Mental health disorder Grandchild Father Social History Smoking Status: Current every day smoker Tobacco Type: cigarettes Substance Use Type: Crack and Cocaine Substance Abuse Comment: 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 Social History Comments: Patient lives in an apartment by herself Meds Medications and Allergies Allergies metronidazole [From Flagyl] Allergy (Unknown, Verified 07/14/24 23:41) Vomiting nalbuphine [From Nubain] Allergy (Unknown, Verified 07/14/24 23:41) Unknown Reaction sulfamethoxazole [From Bactrim] Allergy (Unknown, Verified 07/14/24 23:41) Vomiting tramadol [From Ultram] Allergy (Unknown, Verified 07/14/24 23:41) Seizure trimethoprim [From Bactrim] Allergy (Unknown, Verified 07/14/24 23:41) Vomiting buspirone [From BuSpar] Adverse Reaction (Verified 07/14/24 23:41) Anxiety diphenhydramine [From Benadryl] Adverse Reaction (Verified 07/14/24 23:41) Anxiety hydroxyzine [From Vistaril] Adverse Reaction (Verified 07/14/24 23:41) Agitated olanzapine [From Zyprexa] Adverse Reaction (Verified 07/14/24 23:41) Unknown Reaction Home Medications alprazolam 1 mg tablet 1 mg PO BID 30 days #60 tabs 10/11/23 [Rx Confirmed 07/14/24] lisdexamfetamine 30 mg capsule (Vyvanse) 30 mg PO DAILY 7 days #7 caps 10/13/23 [Rx Confirmed 07/14/24] levothyroxine 75 mcg tablet 75 mcg PO QAM 30 days #30 tabs 01/20/24 [Rx Confirmed 07/14/24] estradiol 0.5 mg tablet 0.5 mg PO DAILY 07/14/24 [History Confirmed 07/14/24] zolpidem 5 mg tablet 5 mg PO HS 07/14/24 [History Confirmed 07/15/24] pantoprazole 40 mg tablet,delayed release 40 mg PO BID 60 days #120 tabs 07/15/24 [Rx] Exam Physical Exam Vital Signs: Temp Pulse Resp BP Pulse Ox O2 Del Method 97.9 F 66 12 103/71 96 Room Air 07/15/24 07:30 07/15/24 07:30 07/15/24 07:30 07/15/24 07:30 07/15/24 07:30 07/15/24 07:30 Results - Psychiatry Labs 07/15/24 10:43 07/15/24 10:43 Psychiatry Labs: 07/15/24 07/15/24 10:43 10:55 RBC 4.22 Hgb 14.0 Hct 41.3 MCV 97.9 MCH 33.3 MCHC 34.0 RDW 12.9 Plt Count 220 MPV 9.5 Sodium 139 Potassium 4.3 Chloride 106 Carbon Dioxide 25.7 Anion Gap 11.6 BUN 11 Creatinine 0.83 Calcium 8.8 Total Bilirubin 0.5 AST 61 H ALT 72 H Alkaline Phosphatase 48 Total Protein 6.9 Albumin 4.1 Urine Color Colorless Urine Appearance Clear Urine pH 7.0 Ur Specific [place] 1.007 Urine Protein Negative Urine Glucose (UA) Normal Urine Ketones Negative Urine Occult Blood Negative Urine Nitrite Negative Ur Leukocyte Esterase 3+ H Urine RBC 3-4 Urine WBC 5-9 H Assessment/Plan (1) Cocaine abuse: (2) Acute anxiety: (3) Major depress dis, severe: (4) Generalized anxiety disorder: Plan Patient presents as depressed and anxious. She endorses SI. Continue home medications Add Doxepin 10mg HS and PRN Continue to monitor mental status Monitor suicidal behaviors for safety of self (15-minute face check). Encourage medication adherence. Risks, benefits, and alternatives of treatment explained Recommend? attending groups and psychoeducation for building coping skills. Risks, benefits and indications of medications were discussed with the patient.? Involve friends/family members to coordinate care and ensure appropriate outpatient appointments are scheduled prior to discharge. Documented By: Olvin Rollins MD 4 1159 Signed By: <Electronically signed by Olvin Rollins MD> 07/15/24 6164 [facility] Work Phone: 1(528) 200-654204-19-2024 Discharge summary Author Olvin tavares [facility] January 20, 2024 11:16am Note Date/Time January 20, 2024 11: 16am [facility] [address] [place] [address] Discharge Summary Signed Patient: Debra Scott MR#: [id number] : 1975 Acct:[id number] Age/Sex: 48 / F Adm Date: 4 Loc: Room: [address] [place] [address]: Olvin Rollins MD Copies to: MD Michelle Ibanez, MEDIA STRATEGIST-C~ Providers Date of Discharge: 01/20/24 Discharging Provider: Olvin Rollins Primary Care Provider: 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 Consults: 01/18/24 04:37 Consult to Case Management Routine Comment: CM 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 I [...] episodes. Pertinent stressors include recently moved to [place] and has relapsed on cocaine.States she feels [...] unit milieu. She has been working with director case on her aftercare she agreed to continuethe [...] Instructions: Important Contact Information You can call [facility] at [phone] any time day or night if you have emergent questions or question regarding discharge instructions. If at any time you are feeling an increase inyour psychiatric symptoms, call your physician or behavioral healthcare provider. If any time you have thoughts of harming yourself or others contact one of the following: Call 8-8 (available 25/04) Crisis Text Line (available 25/04) text 4HOPE to [phone] [facility] Hope Line (available 8 a.m. Midnight) call [phone] ([phone]) Prescriptions: No Action alprazolam 1 mg tablet [...] [Other] (Counseling with Cam. ) 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, MEDIA STRATEGIST-C [Primary Care Provider] - (Contact your PCP with medical needs. ) Exam Physical Exam Vital Signs: Temp Pulse Resp BP Pulse Ox O2 Del Method 97.6 F 70 18 104/69 97 Room Air 01/20/24 07:30 01/20/24 07:30 01/20/24 07:30 01/20/24 07:30 01/20/24 07:30 01/20/24 07:30 Documented By: Olvin Rollins MD 4 1115 Signed By: <Electronically signed by Olvin Rollins MD> 01/20/24 1116 [facility] Work Phone: 1([phone]) 832-462904-19-2024 Hospital Discharge instructions Additional Instructions Important Contact Information You can call [facility] at [phone] any time day or night if you have emergent questions or question regarding discharge instructions. If at any time you are feeling an increase in your psychiatric symptoms, call your physician or behavioral healthcare provider. If any time you have thoughts of harming yourself or others contact one of the following: Call 98-8 (available 25/04) Crisis Text Line (available 25/04) text 4HOPE to [phone] [facility] Hope Line (available 8 a.m. Midnight) call [phone] ([phone]) [facility] Work Phone: 1(576) 989-188204-18-2024 Progress note Author Olvin tavares [facility] January 19, 2024 7:59am Note Date/Time January 19, 2024 7:5 2am [facility] [address] [place] [address] Psychiatry Progress Note Signed Patient: Debra Scott MR#: [id number] : 1975 Acct:[id number] Age/Sex: 48 / F Adm Date: 4 Loc: Room: [address] [place] [address] Type : ADM IN Attending Dr: Olvin [...] provided. Documented By: Olvin Rollins MD 4 0758 Signed By: <Electronically signed by Olvin Rollins MD> 01/19/24 0759 [facility] Work Phone: 1(188) 498-421204-17-2024 History and physical note Author Olvin tavares [facility] January 18, 2024 10:05am Note Date/Time January 18, 2024 10: 05am [facility] [address] [place] [address] Psychiatry H&P Signed Patient: Debra Scott MR#: [id number] : 1975 Acct:[id number] Age/Sex: 48 / F Adm Date: 4 Loc: 1S Room: [address] [place] [address] Type: ADM IN Attending Dr: Olvin Rollins MD Copies to: MD Michelle Ibanez NP-Ulises~ Date of Service: 01/18/2024 HPI History of [...] stopping taking Wellbutrin after her prescriber at [place] said it can worsen her anxiety. I [...] episodes. Pertinent stressors include recently moved to [place] and has relapsed on cocaine.States she feels [...] strong, equal bilaterally. CNXII: Tongue protrusion midline [facility] Medical History (Updated 10/21/23 @ 00:00 by [...] Patient lives in an apartment by herself [place] Medications and Allergies Allergies metronidazole [From Flagyl] [...] <Electronically signed by Olvin Rollins MD> 01/18/24 1006 [facility] Work Phone: 1(394) 800-746601-11-2024 Discharge summary Author Miah Abreu [facility] October 13, 2023 11:51am Note Date/Time October 13, 2023 1 1:49am [facility] [address] [place] [address] Discharge Summary Signed Patient: Debra Scott MR#: [id number] : 1975 Acct:[id number] Age/Sex: 48 / F Adm Date: 4 Loc: 1S Room: [address] [place] [address]: Miah Abreu MD Copies to: [...] Instructions: Important Contact Information You can call [facility] at [phone] any time day or night if you have emergent questions or question regarding discharge instructions. If at any time you are feeling an increase inyour psychiatric symptoms, call your physician or behavioral healthcare provider. If any time you have thoughts of harming yourself or others contact one of the following: Call 98-8 (available 25/04) Crisis Text Line (available 25/04) text 4HOPE to [phone] [facility] Hope Line (available 8 a.m. Midnight) call [phone] ([phone]) Regular Diet No Activity Restrictions Instructions: Depression, Adult (DC), [facility] [place] Instructions Prescriptions: New ziprasidone [...] ONCE DAILY IN THE MORNING Follow Up: [facility] [Other] (facility to manage all care) Documented By: Miah Abreu MD 10/13/23 1147 Signed By: <Electronically signed by Miah Abreu MD> 10/13/23 1151 [facility] Work Phone: 1([phone]) 198-651501-11-2024 Hospital Discharge instructions Additional Instructions Important Contact Information You can call [facility] at [phone] any time day or night if you have emergent questions or question regarding discharge instructions. If at any time you are feeling an increase in your psychiatric symptoms, call your physician or behavioral healthcare provider. If any time you have thoughts of harming yourself or others contact one of the following: Call 9-8-8 (available 25/04) Crisis Text Line (available 25/04) text 4HOPE to [phone] [facility] Hope Line (available 8 a.m. Midnight) call [phone] ([phone]) Regular Diet No Activity [facility]ions[facility] Work Phone: 1(618) 239-370601-10-2024 Progress note Author Miah Abreu [facility] October 12, 2023 11:10am Note Date/Time October 12, 2023 1 1:09am [facility] [address] [place] [address] Psychiatry Progress Note Signed Patient: Debra Scott MR#: [id number] : 1975 Acct:[id number] Age/Sex: 48 / F Adm Date: 4 Loc: Room: [address] [place] [address] Type : ADM IN Attending Dr: Miah [...] signed by Miah Abreu MD> 10/12/23 1110 [facility] Work Phone: 1([phone]) 941-318301-09-2024 Progress note Author Miah Abreu [facility] October 11, 2023 11:22am Note Date/Time October 11, 2023 11 :22am [facility] [address] [place] [address] Psychiatry Progress Note Signed Patient: Debra Scott MR#: [id number] : 1975 Acct:[id number] Age/Sex: 48 / F Adm Date: 4 Loc: Room: [address] [place] [address] Type : ADM IN Attending Dr: Miah [...] thoughts. She expressed interest in going to [facility] for rehab. Mental Status Exam: Appearance: grossly [...] <Electronically signed by Miah Abreu MD> 10/11/23 [facility] Work Phone: 1(385) 468-959401-08-2024 History and physical note Author Miah Abreu [facility] October 10, 2023 1:43pm Note Date/Time October 10, 2023 1: 39pm [facility] [address] [place] [address] Psychiatry H&P Signed Patient: Debra Scott MR#: [id number] : 1975 Acct:[id number] Age/Sex: 48 / F Adm Date: 4 Loc: Room: [address] [place] [address] Type: ADM IN Attending Dr: Miah Abreu [...] homicidality, reported suicidality Insight: fair Judgment: fair [facility] Medical History (Updated 10/10/23 @ 13:03 by [...] Cloudy A Urine pH 5.5 Ur Specific [place] 1.012 Urine Protein Negative Urine Glucose (UA) [...] explained Documented By: Miah Abreu MD 10/10/23 8450 Signed By: <Electronically signed by Miah Abreu MD> 10/10/23 1349 [facility] Work Phone: 1(339) 248-254011-24-2023 Discharge summary Author Olvin tavares [facility] August 26, 2023 7:42am Note Date/Time August 26, 2023 7:39am [facility] [address] [place] [address] Discharge Summary Signed Patient: Debra Scott MR#: [id number] : 1975 Acct:[id number] Age/Sex: 48 / F Adm Date: 3 Loc: Room: [address] [place] [address]: Olvin Rollins MD Copies to: [...] baby. [place]. She said [...] She has beenworking on aftercare plans with director case. She agreed to continue the current medications [...] Instructions: Important Contact Information You can call [facility] at [phone] any time day or night if you have emergent questions or question regarding discharge instructions. If at any time you are feeling an increase inyour psychiatric symptoms, call your physician or behavioral healthcare provider. If any time you have thoughts of harming yourself or others contact one of the following: Call 98-8 (available 25/04) Crisis Text Line (available 25/04) text 4HOPE to [phone] [facility] Hope Line (available 8 a.m. Midnight) call [phone] ([phone]) Prescriptions: New cephalexin 500 mg Capsule 500 [...] 75 mcg PO DAILY Follow Up: [facility] [Other] (Sees Dr. Mendoza for psychiatric medications. Also sees Dr. Woo at this location for medical needs. ) [facility] [Other] (Sees Cam for counseling. ) Documented By: Olvin Rollins MD 3 0737 Signed By: <Electronically signed by Olvin Rollins MD> 08/26/23 0742 [facility] Work Phone: 1(157) 482-945011-24-2023 Hospital Discharge instructions Additional Instructions Important Contact Information You can call [facility] at [phone] any time day or night if you have emergent questions or question regarding discharge instructions. If at any time you are feeling an increase in your psychiatric symptoms, call your physician or behavioral healthcare provider. If any time you have thoughts of harming yourself or others contact one of the following: Call 9-8-8 (available 25/04) Crisis Text Line (available 25/04) text 4HOPE to [phone] [facility] Hope Line (available 8 a.m. Midnight) call [phone] ([phone]) Regular Diet No Activity Restrictions Urine culture from [facility] with no growth, you do NOT have a urinary tract infection and do NOT need antibiotic at discharge. Liver enzymes mildly elevated. Hepatitis panel still pending at the time of your discharge. Please follow up with your primary care for further management, with history of untreated [facility] Phone: 1([phone]) 297-357611-23-2023 Consult note Author Gelacio Callahan [facility] August 25, 2023 12:19pm Note Date/Time August 24, 2023 6:07pm [facility] [address] [place] [address] Hospitalist Consult Note Signed Patient: Debra Scott MR#: [id number] : 1975 Acct:[id number] Age/Sex: 48 / F Adm Date: 3 Loc: 1S Room: 9G1906-6 Type: ADM IN Attending Dr: Olvin Rollins MD Copies to: NON STAFF MD Adele Ibanez, TANNER Callahan, DO~ HPI DATE OF CONSULTATION: 08/24/23 REQUESTING PROVIDER: Olvin Rollins Consult Narrative Reason for Consult: Hand pain and edema HPI: This is a-year-old female past medical history significant for hypertension, hyperlipidemia, hepatitis C, rheumatoid arthritis IBS, depression/anxiety, hypothyroid. , Anemia. Presented to the emergency department at [facility] August 23 with mental health concerns. Plan [...] negative unless noted below or in HPI [facility] Medical History (Updated 08/24/23 @ 18:28 by [...] Dose Route Start Last Admin Trade Name Andreaq PRN Reason Stop Dose Admin Acetaminophen 500 [...] 100 Mg Capsule PO 08/23/24 21:59 HS [facility] Levothyroxine Sodium 75 mcg 08/24/23 07:30 08/24/23 08:40 Levothyroxine 75 Mcg Tablet PO 08/23/24 07:29 Not Given DAILY@0630 [facility] Magnesium Hydroxide 30 ml 08/24/23 00:22 Magnesium Hydroxide Susp 30 Ml Udc PO 08/23/24 00:21 Q6H PRN Constipation Ondansetron HCl 4 mg 08/24/23 14:17 08/24/23 15:22 Ondansetron Odt 4 Mg Tab.Rapdis PO 08/23/24 14:16 4 mg Q8HR PRN Administration Nausea And Vomiting Quetiapine Fumarate 100 mg 08/24/23 22:00 Quetiapine Fumarate 100 Mg Tablet PO 08/23/24 21:59 HS [facility] Trazodone HCl 50 mg 08/24/23 00:22 Trazodone [...] ESR, CRP Suspect UTI -Cephalexin initiated at [facility], however squamous cells present may be [...] TANNER Hunter> 08/24/23 1829 <Electronically signed by Gelacio Callahan DO> 08/25/23 1217 [facility] Work Phone: 1([phone]) 418-854311-23-2023 Progress note Author Olvin tavares [facility] August 25, 2023 8:40am Note Date/Time August 25, 2023 8:40am [facility] [address] [place] [address] Psychiatry Progress Note Signed Patient: Debra Scott MR#: [id number] : 1975 Acct:[id number] Age/Sex: 48 / F Adm Date: 3 Loc: Room: 4B5711-4 Type : ADM IN Attending Dr: Olvin [...] signed by Olvin Rollins MD> 08/25/23 0840 [facility] Work Phone: 1(422) 525-989011-22-2023 History and physical note Author Olvin tavares [facility] August 24, 2023 7:17am Note Date/Time August 24, 2023 7:12am [facility] [address] [place] [address] Psychiatry H&P Signed Patient: Debra Scott MR#: [id number] : 1975 Acct:[id number] Age/Sex: 48 / F Adm Date: 3 Loc: 1S Room: [address] [place] [address] Type: ADM IN Attending Dr: Olvin Rollins [...] baby. [place] being [place]. She said [...] homicidality, reported suicidality Insight: fair Judgment: fair [facility] Medical History Anxiety Bipolar 1 disorder, depressed, [...] Major depress dis, severe: Plan: Admit to for management of depression and [...] 0712 Signed By: <Electronically signed by Olvin Rolilns MD> 08/24/23 0717 [facility] Work Phone: 1([phone]) 631-474408-09-2023 Evaluation note* Encounter Date Diagnosis Assessment Notes [...] can follow-up on a as needed basis. [employer] Other 07-30-2023 Discharge summary Author Miah Abreu [facility] May 01, 2023 12:16pm Note Date/Time May 01, 2023 11:3 0am [facility] [address] [place] [address] Discharge Summary Signed Patient: Debra Scott MR#: [id number] : 1975 Acct:[id number] Age/Sex: 47 / F Adm Date: 3 Loc: Room: [address] [place] [address]: Serafin Rollins MD Copies to: [...] Ms. Scott adds that she went to [facility] last night to have her wrist looked [...] TO THE ONE WEEK FOLLOW UP. [address] [place] [address] PH: [phone] Dressing Type: TX TO LEFT WRIST; WARM SOAPY SOAKS WITH HIBICLENS TID FOR 15 MINUTES. ALLOW TO AIR DRY AND THEN REDRESS WITH XERFORM, TELFA, AND GAUZE. THREE TIMES A DAY. Instructions: Bipolar Disorder (DC), [facility] DC Instructions Prescriptions: New doxycycline [...] levothyroxine 75 mcg tablet 75 mcg PO DAILY.629 Patient Comments: TAKE ONE TABLET BY MOUTH [...] to set up appointment Cam) [facility] Counseling Hotline [Outside] Enrico Alcazar II, MD [Active Staff] - (Please call on Tuesday to set up appointment in 5-7 days.) Documented By: Miah Abreu MD 05/01/23 1130 Signed By: <Electronically signed by Miah Abreu MD> 05/01/23 1216 [facility] Work Phone: 1(605) 209-901407-29-2023 Progress note Author Miah Abreu [facility] April 30, 2023 11:22am Note Date/Time April 30, 2023 11:2 2am [facility] [address] [place] [address] Psychiatry Progress Note Signed Patient: Debra Scott MR#: [id number] : 1975 Acct:[id number] Age/Sex: 47 / F Adm Date: 3 Loc: Room: [address] [place] [address] Type : ADM IN Attending Dr: Serafin [...] alternatives explained Documented By: Miah Abreu MD 04/30/23 1121 Signed By: <Electronically signed by Miah Abreu MD> 04/30/23 1122 [facility] Work Phone: 1(993) 694-715307-28-2023 Progress note Author Miah Abreu [facility] April 29, 2023 1:04pm Note Date/Time April 29, 2023 1:04 pm [facility] [address] [place] [address] Psychiatry Progress Note Signed Patient: Debra Scott MR#: [id number] : 1975 Acct:[id number] Age/Sex: 47 / F Adm Date: 3 Loc: Room: [address] [place] [address] Type : ADM IN Attending Dr: Serafin [...] signed by Miah Abreu MD> 04/29/23 1304 [facility] Work Phone: 1(989) 983-424607-27-2023 Progress note Author Miah Abreu [facility] April 28, 2023 12:01pm Note Date/Time April 28, 2023 12:0 1pm [facility] [address] [place] [address] Psychiatry Progress Note Signed Patient: Debra Scott MR#: [id number] : 1975 Acct:[id number] Age/Sex: 47 / F Adm Date: 3 Loc: Room: [address] [place] [address] Type : ADM IN Attending Dr: Serafin [...] signed by Miah Abreu MD> 04/28/23 1201 [facility] Work Phone: 1([phone]) 457-855207-27-2023 Hospital Discharge instructions Additional Instructions FOLLOW UP WITH DR. ALCAZAR AT HIS OFFICE IN ONE WEEK. (ORD.04/28/2023) IF DISCHARGED FROM PRIOR TO THE ONE WEEK FOLLOW UP. [address] [place] [address] PH: [phone] Dressing Type: Treatment TO LEFT WRIST; WARM SOAPY SOAKS WITH HIBICLENS TID FOR 15 MINUTES. ALLOW TO AIR DRY AND THEN REDRESS WITH XERFORM, TELFA, AND GAUZE. THREE TIMES A DAY.[facility] Work Phone: 1([phone]) 667-535207-27-2023 Consult note Author Enrico Alcazar [facility] April 28, 2023 2:11am Note Date/Time April 28, 2023 1:17 am [facility] [address] [place] [address] Orthopedic Consult Note Signed Patient: Debra Scott MR#: [id number] : 1975 Acct:[id number] Age/Sex: 47 / F Adm Date: 3 Loc: Room: [address] [place] [address] Type: ADM IN Attending Dr: Serafin Rollins MD Copies to: NON STAFF MD Enrico Ibanez MD~ History of Present Illness HPI Consult date: 04/28/2023 Requesting provider: Serafin Rollins MD History of present illness: Patient is a 47-year-old gkkqy-ucpu-ldqphenc female who is disabled from mental health issues presented to the [facility] emergency department on April 13 because she had used a elaine knife to slit her left wrist. At that time she reported suicidal ideations. The wound at that time according to the patient was washed out and sutured. She was admitted to [facility]'s psychiatric unit at that time and discharged on April 17. Not long after discharge she presented to the [facility] emergency department because she was concerned about infection. She was given oral antibiotics and discharge. On April 23 she was readmitted to [facility] psychiatric unit and at that time there [...] grown MRSA that is sensitive to doxycycline. [facility]?: Unknown Medical History (Updated 04/28/23 @ 02:09 by Enrico Alcazar II, MD) Anxiety Bipolar 1 disorder, [...] % (Auto) 54.1, Lymph % (Auto) 33.3, [place] % (Auto) 8.2, Eos % (Auto) 3.2, Baso % (Auto) 1.2, Nucleat RBC Rel Count 0.2, Neut # (Auto) 2.1, Lymph # (Auto) 1.3, [place] # (Auto) 0.3, Eos # (Auto) 0.1, [...] of left wrist, initial encounter Documented By: Enrico Alcazar MD 04/28/2310 18 Signed By: <Electronically signed by Ernico Alcazar MD> 04/28/23 0211 [facility] Work Phone: 1(406) 406-526407-26-2023 Progress note Author Miah Abreu [facility] April 27, 2023 12:45pm Note Date/Time April 27, 2023 12:4 5pm [facility] [address] [place] [address] Psychiatry Progress Note Signed Patient: Debra Scott MR#: [id number] : 1975 Acct:[id number] Age/Sex: 47 / F Adm Date: 3 Loc: Room: [address] [place] [address] Type : ADM IN Attending Dr: Serafin [...] alternatives explained Documented By: Miah Abreu MD 04/27/231243 Signed By: <Electronically signed by Miah Abreu MD> 04/27/235 [facility] Work Phone: 1(595) 270-510807-25-2023 Progress note Author Miah Abreu [facility] April 26, 2023 12:24pm Note Date/Time April 26, 2023 12:2 4pm [facility] [address] [place] [address] Psychiatry Progress Note Signed Patient: Debra Scott MR#: [id number] : 1975 Acct:[id number] Age/Sex: 47 / F Adm Date: 3 Loc: Room: [address] [place] [address] Type : ADM IN Attending Dr: Serafin [...] By: <Electronically signed by Miah Abreu MD> 04/26/231223 [facility] Work Phone: 1(154) 550-726407-24-2023 Progress note Author Miah Abreu [facility] April 25, 2023 1:05pm Note Date/Time April 25, 2023 1:04 pm [facility] [address] [place] [address] Psychiatry Progress Note Signed Patient: Debra Scott MR#: [id number] : 1975 Acct:[id number] Age/Sex: 47 / F Adm Date: 3 Loc: Room: [address] [place] [address] Type : ADM IN Attending Dr: Serafin [...] <Electronically signed by Miah Abreu MD> 04/25/23 1309 [facility] Work Phone: 1(121) 600-653407-24-2023 Progress note Author Gelacio Callahan [facility] April 25, 2023 10:07am Note Date/Time April 25, 2023 10:0 7am [facility] [address] [place] [address] Hospitalist Progress Note Signed Patient: Debra Scott MR#: [id number] : 1975 Acct:[id number] Age/Sex: 47 / F Adm Date: 3 Loc: Room: [address] [place] [address] Type: ADM IN Attending Dr: Serafin Rollins MD Copies to: ~ Date of Service: 04/25/2023 Subjective Subjective Narrative: I personally saw and examined patient at the bedside [facility]. She complains of some ongoing pain in [...] sutures in place. Neurovascularly intact. Mildly decreased registered nurse behavioral health strength due to pain. No extension of [...] self-inflicted cutting wound -previously sutured 04/13 at [facility]. Wound care has been consulted. Appreciate any further recommendations. Recommend circumscribing the margins ofher erythema which at this time does not seem to be extending proximally. She is afebrile. She does report some ongoing pain for which I will add low-dose [place] as the patient has tramadol allergy (lowers [...] medication management/ adjustment and psychotherapy Documented By: Gelacio Callahan DO 04/25/23 10 00 Signed By: <Electronically signed by Gelacio Callahan, > 04/25/23 1007 [facility] Work Phone: 1(164) 625-137507-23-2023 Consult note Author Abisai Madrid [facility] April 24, 2023 9:53am Note Date/Time April 23, 2023 5:14 pm [facility] [address] [place] [address] Hospitalist Consult Note Signed Patient: eDbra Scott MR#: [id number] : 1975 Acct:[id number] Age/Sex: 47 / F Adm Date: 3 Loc: Room: [address] [place] [address] Type: ADM IN Attending Dr: Serafin Rollins MD Copies to: NON STAFF MD Abisai Ibanez MD Lynn A Stackhouse, ANP-~ HPI DATE OF CONSULTATION: 04/23/23 REQUESTING PROVIDER: Serafin Rollins Consult Narrative Reason for Consult: Wound present on admission HPI: This is a 47-year-old female past medical HTN, HLD, hypothyroid, hypertension, hyperlipidemia, hepatitis, rheumatoid arthritis, anxiety and depression. She presented April 22 from [facility] to the inpatient psychiatric unit for management of depression. Patient previously April 13 had self-inflicted a left wrist laceration that was sutured at that time in [facility] ED previously. She noticed about 4 days ago that she was having increased pain erythema and drainage from the site. When she was at [facility] last evening for reevaluation he did give her injection of ceftriaxone IM and initiated her on Bactrim and Keflex. Patient has a stated allergy to Bactrim with vomiting, and since receiving the dose in the [facility] ER she has not felt well and [...] Medical History (Updated 04/23/23 @ 18:01 by Adele Gorman, ANP-BC) Anxiety Bipolar 1 disorder, depressed, mild GERD [...] self-inflicted cutting wound -previously sutured 04/13 at [facility], pain and erythema/ drainage started about 4 [...] 3 1055 Signed By: <Electronically signed by ANP-MINERVA Gorman> 04/23/23 1805 <Electronically signed by Abisai Madrid MD> 04/24/23 0953 [facility] Work Phone: 1(175) 260-737407-23-2023 Progress note Author Olvin tavares [facility] April 24, 2023 7:14am Note Date/Time April 24, 2023 7:14 am [facility] [address] [place], [place] [id number] Psychiatry Progress Note Signed Patient: Debra Scott MR#: [id number] : 1975 Acct:[id number] Age/Sex: 47 / F Adm Date: 3 Loc: 1S Room: 8L6719-8 Type : ADM IN Attending Dr: Serafin Rollins MD Copies to: ~ Date of Service: 04/24/2023 Subjective Subjective Narrative: Ms. Scott said she met the hospitalist MEDIA STRATEGIST and talked the treatment plan for herwound [...] signed by Olvin Rollins MD> 04/24/23 0714 [facility] Work Phone: 1(320) 214-833107-22-2023 History and physical note Author Olvin tavares [facility] April 23, 2023 9:51am Note Date/Time April 23, 2023 8:56 am [facility] [address] [place] [address] Psychiatry H&P Signed Patient: Debra Scott MR#: [id number] : 1975 Acct:[id number] Age/Sex: 47 / F Adm Date: 3 Loc: Room: [address] [place] [address] Type: ADM IN Attending Dr: Serafin Rollins [...] Scott adds that she went to [facility] last night to have her wrist lookedat [...] discharge. Documented By: Olvin Rollins MD 3 5459 Signed By: <Electronically signed by Olvin Rollins MD> 04/23/23 0951 [facility] Work Phone: 1(249) 745-853911-30-2022 Discharge summary Author Olvin tavares [facility] September 01, 2022 10:03am Note Date/Time September 01, 2022 10:03am [facility] [address] [place] [address] Discharge Summary Signed Patient: Debra Scott MR#: [id number] : 1975 Acct:[id number] Age/Sex: 47 / F Adm Date: 2 Loc: Room: [address] [place] [address]: Miah Abreu MD Copies to: MD Miah Ibanze MD NO FAMILY PHYSICIAN~ Providers Date of [...] as withdrawn.? She reports beingrecently discharged from [facility] and has not been taking her medications.??She states that she was partying at someones house and left in [facility].? She was found laying on the sidewalk in the rain by EMS and transported to [facility].? Patient admits to attempting suicide [...] Appearance Clear, Urine pH 6.5, Ur Specific [place] 1.006, Urine Protein Negative, Urine Glucose (UA) [...] 30 Days Qty: 30 0RF Follow Up: [facility] [[facility] - 09/07/22 10:00 am ( Pschiatry: Tuesday09/07/22 @ 10:00am with AUDI Zarate Referral for therapy & IOP treatment will be made at this time Psychiatry: 09/30/22 @ 12:[address] Stubbs. ) Documented By: Olvin Rollins MD 2 1000 Signed By: <Electronically signed by Olvin Rollins MD> 09/01/22 1003 [facility] Work Phone: 1(423) 873-846111-29-2022 Progress note Author Olvin tavares [facility] August 31, 2022 9:32am Note Date/Time August 31, 2022 9:32am [facility] [address] [place] [address] Psychiatry Progress Note Signed Patient: Debra Scott MR#: [id number] : 1975 Acct:[id number] Age/Sex: 47 / F Adm Date: 2 Loc: Room: [address] [place] [address] Type : ADM IN Attending Dr: Miah [...] signed by Olvin Rollins MD> 08/31/22 0932 [facility] Work Phone: 1(286) 791-902711-28-2022 History and physical note Author Olvin tavares [facility] August 30, 2022 10:00am Note Date/Time August 30, 2022 9:56am [facility] [address] [place] [address] Psychiatry H&P Signed Patient: Debra Scott MR#: [id number] : 1975 Acct:[id number] Age/Sex: 47 / F Adm Date: 2 Loc: 1S Room: [address] [place] [address] Type: ADM IN Attending Dr: Miah Abreu [...] as withdrawn. She reports beingrecently discharged from [facility] and has not been taking her medications.??She states that she was partying at someones house and left in [facility].? She was found laying on the sidewalk in the rain by EMS and transported to [facility].? Patient admits to attempting suicide [...] signed by Olvin Rollins MD> 08/30/22 1000 [facility] Work Phone: 1(361) 294-698709-10-2022 Progress note Author Miah Abreu [facility] June 12, 2022 11:20am Note Date/Time June 12, 2022 11:20am [facility] [address] [place] [address] Psychiatry Progress Note Signed Patient: Debra Scott MR#: [id number] : 1975 Acct:[id number] Age/Sex: 47 / F Adm Date: 2 Loc: 1S Room: [address] [place] [address] Type : ADM IN Attending Dr: Serafin [...] persistent urine drug screens positive for cocaine [id number] Continue home medications. Continue to monitor mental status Encourage group participation and medication compliance Risk benefits alternatives explained Documented By: Miah Abreu MD 06/12/221118 Signed By: <Electronically signed by Miah Abreu MD> 06/12/22 1120 [facility] Work Phone: 1(891) 541-709309-09-2022 Progress note Author Miah Abreu [facility] June 11, 2022 1:36pm Note Date/Time June 11, 2022 1:33pm [facility] [address] [place] [address] Psychiatry Progress Note Signed Patient: Debra Scott MR#: [id number] : 1975 Acct:[id number] Age/Sex: 47 / F Adm Date: 2 Loc: Room: [address] [place] [address] Type : ADM IN Attending Dr: Serafin [...] persistent urine drug screens positive for cocaine [id number] Continue home medications. Continue to monitor mental status Encourage group participation and medication compliance Risk benefits alternatives explained Documented By: Miah Abreu MD 06/11/22 1215 Signed By: <Electronically signed by Miah Abreu MD> 06/11/22 1336 [facility] Work Phone: 1(515) 987-481209-08-2022 Progress note Author Miah Abreu [facility] June 10, 2022 1:53pm Note Date/Time June 10, 2022 1:53pm [facility] [address] [place] [address] Psychiatry Progress Note Signed Patient: Debra Scott MR#: [id number] : 1975 Acct:[id number] Age/Sex: 47 / F Adm Date: 2 Loc: Room: [address] [place] [address] Type : ADM IN Attending Dr: Serafin [...] persistent urine drug screens positive for cocaine [id number] Continue home medications. Continue to monitor mental status Encourage group participation and medication compliance Risk benefits alternatives explained Documented By: Miah Abreu MD 06/10/22 1111 Signed By: <Electronically signed by Miah Abreu MD> 06/10/22 1353 [facility] Work Phone: 1(723) 157-508109-07-2022 Progress note Author Miah Abreu [facility] June 09, 2022 12:58pm Note Date/Time June 09, 2022 12:58pm [facility] [address] [place] [address] Psychiatry Progress Note Signed Patient: Debra Scott MR#: [id number] : 1975 Acct:[id number] Age/Sex: 47 / F Adm Date: 2 Loc: Room: [address] [place] [address] Type : ADM IN Attending Dr: Serafin [...] persistent urine drug screens positive for cocaine [id number] Continue home medications. Continue to monitor mental status Encourage group participation and medication compliance Risk benefits alternatives explained Documented By: Miah Abreu MD 06/09/22 6284 Signed By: <Electronically signed by Miah Abreu MD> 06/09/22 0618 [facility] Work Phone: 1(773) 260-345709-06-2022 Progress note Author Miah Abreu [facility] June 08, 2022 12:01pm Note Date/Time June 08, 2022 11:59am [facility] [address] [place] [address] Psychiatry Progress Note Signed Patient: Debra Scott MR#: [id number] : 1975 Acct:[id number] Age/Sex: 47 / F Adm Date: 2 Loc: 1S Room: [address] [place] [address] Type : ADM IN Attending Dr: Serafin [...] persistent urine drug screens positive for cocaine [id number] Continue home medications. Continue to monitor mental status Encourage group participation and medication compliance Risk benefits alternatives explained Documented By: Miah Abreu MD 06/08/22 0940 Signed By: <Electronically signed by Miah Abreu MD> 06/08/22 1201 [facility] Work Phone: 1(281) 923-943609-05-2022 History and physical note Author Miah Abreu [facility] June 07, 2022 12:39pm Note Date/Time June 07, 2022 12:38pm [facility] [address] [place] [address] Psychiatry H&P Signed Patient: Debra Scott MR#: [id number] : 1975 Acct:[id number] Age/Sex: 47 / F Adm Date: 2 Loc: Room: [address] [place] [address] Type: ADM IN Attending Dr: Serafin Rollins [...] called the hotline and was taken to [facility] ED after which she was transferred to . For the last few months, she has been feeling increasingly depressed and anxious. She reports a recent incident while babysitting her granddaughter in [place] during which she hid under the table and felt as though the world was ending . She endorses multiple similar episodes of panic recently during which she feels her heart racing, sweaty, and impending doom. She is following with a psychiatrist in [place] who recommended she start on a new [...] persistent urine drug screens positive for cocaine [id number] Continue home medications. Continue to monitor mental status Encourage group participation and medication compliance Risk benefits alternatives explained Documented By: Miah Abreu MD 06/07/22 1002 Signed By: <Electronically signed by Miah Abreu MD> 06/07/22 On license of [facility] Work Phone: Discharge summary Author Miah Abreu [facility] June 12, 2022 12:38pm Note Date/Time June 12, 2022 12:33pm [facility] [address] [place] [address] Discharge Summary Signed Patient: Debra Scott MR#: [id number] : 1975 Acct:[id number] Age/Sex: 47 / F Adm Date: 2 Loc: 1S Room: [address] [place] [address]: Serafin Rollins MD Copies to: [...] called the hotline and was taken to [facility] ED after which she was transferred to . For the last few months, she has been feeling increasingly depressed and anxious. She reports a recent incident while babysitting her granddaughter in [place] during which she hid under the table and felt as though the world was ending . She endorses multiple similar episodes of panic recently during which she feels her heart racing, sweaty, and impending doom. She is following with a psychiatrist in [place] who recommended she start on a new [...] tablet 225 mg PO QHS Follow Up: [facility] [Other] (Dr. Stubbs) [facility] [Other] (Therapist: Liu) Documented By: Miah Abreu MD 06/12/22 1231 Signed By: <Electronically signed by Miah Abreu MD> 06/12/22 1238 [facility] Work Phone: Discharge summary Author Miah Abreu [facility] Note Date/Time December 03, 2024 3:25 pm [facility] [address] [place] [address] Discharge Summary Signed Patient: Debar Scott MR#: [id number] : 1975 Acct:[id number] Age/Sex: 49 / F Adm Date: 5 Loc: Room: [address] [place] [address]: Olvin Rollins MD Copies to: MD Miah Ibanez MD Alexandra K Rojas, MEDIA STRATEGIST-C~ Providers Date of Discharge: 12/03/24 Discharging Provider: Miah Abreu Primary Care Provider: 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 Discharge Diagnosis (1) Suicidal ideation: (2) Mood disorder: (3) Cocaine abuse: Final Diagnosis Final Discharge Diagnosis: Major depressive disorder Stimulant use disorder Summary Hospital Course Hospital course: Ms. Scott is a 49 year old female who upon admission stated anxiety 7/10 and depression 9/10 with 10 being the worst. Patient denies any suicidal ideations, homicidal ideations, or any auditory or visual hallucinations at this time. Patient states that she believes she has seasonal depression and that is why sheis here. Patient stated that last week she drove to [place] with her sister and parked in the parking lot with the intention of coming in to be admitted to [address] [place] [address], patient decided not to at that time. Per report from [facility], patient was suicidal with a plan to cut self. Patient stated that recently she has had some triggers due to family conflict, a family member being diagnosed with cancer, and her grandson being still born in 2022. Patient stated that these triggers have lead her to feeling overwhelmed, hopeless, and worthless. Patient states that she has been compliant with her medications, but feels theremight need to be changes with some of her medication. Patient agrees to safety contract with staff while on unit. Patient was personally seen by me on the day of the encounter. I reviewed the history and performed the jaimes elements of the assessment. I formulated the planof care and confirmed this with the medical student as noted below At the time of interview, she reports depression and anxiety rated 7/10. She reports intermittent SI. Denies AVH. She reports that she has been sleeping more, wanting to sleep during the day and then being unable to fall asleep at night. She feels that she is struggling with seasonal depression, but also has a lot of life stressors at this time. He states that she has been isolating more, not enjoying things anymore, having anxiety, and binge eating. She also reports that she has been going through menopause and this has been very difficult for her. She expresses that her medications are not helping her as much as she would like and she is interested in [place] treatment. Throughout the interview she is pleasant, calm and cooperative. Past psych history: Bipolar, ADHD Past hospitalizations: Several for SI, some were drug-related Past suicide attempts: Several, overdoses and cutting wrists Family psych history: Patient reports that her maternal grandfather was bipolar and her father has anxiety and depression Previous medications: Xanax, Vyvanse, bupropion Alcohol and drug use: Occasional marijuana use, denies alcohol use Living: Lives at home in her apartment feels safe there Employment: Unemployed on disability Patient was restarted on her home medications. Wellbutrin was discontinued and Pristiq was started. She tolerated the medication without any problems and did not report any side effects she had gradual improvement of her symptoms during her hospitalization. She denied any further depression or suicidality. She didnot exhibit any behavior concerning for suicidality during her hospital course. She did not have any conflict with peers or staff. She attended groups and socialize with peers appropriately. On the day of discharge, she reported that she was doing better. She denied any depression or suicidality. She was comfortable with discharge plan home and following up with outpatient services. Time spent discussing smoking cessation with patient: 3 to 10 minutes Condition Condition at Discharge: Stable Status at Discharge Cognitive/behavioral status at discharge: Mental Status Exam: Appearance: grossly normal Mental Status: mental status grossly normal Mood: Euthymic mood Affect: Normal affect Speech and Movement: speech normal, movement normal Attitude: cooperative Thought Process: normal Thought Content: Denied hallucinations, no homicidality and no suicidality Insight: Good Judgment: Good Functional status at discharge: independent ambulation Overall status at discharge: patient is back to baseline Time Spent with Patient Time spent providing/coordinating discharge services (# min): 30 Discharge Plan Discharge Plan Patient Disposition: Home Activity: No Activity Restriction Diet: Regular Additional Instructions: Important Contact Information You can call [facility] at [phone] any time day or night if you have emergent questions or question regarding discharge instructions. If at any time you are feeling an increase inyour psychiatric symptoms, call your physician or behavioral healthcare provider. If any time you have thoughts of harming yourself or others contact one of the following: Call (available 25/04) Crisis Text Line (available 25/04) text 4HOPE to [phone] [facility] Hope Line (available 8 a.m. Midnight) call [phone] ([phone]) Instructions: Depression in adults - Discharge instructions, [facility] [place] Instructions, Know your Meds Prescriptions: New nicotine (polacrilex) 2 mg Gum 2 mg buccal Q2H PRN (Reason: Nicotine Cravings) Qty: 20 0RF ondansetron 4 mg Tablet,Disintegrating 4 mg PO Q6HR PRN (Reason: Nausea And Vomiting) Qty: 30 0RF desvenlafaxine succinate 25 mg Tablet Extended Release 24 Hr 25 mg PO DAILY 30 Days Qty: 30 0RF Continued alprazolam 1 mg tablet 1 mg PO BID 30 Days Qty: 60 0RF lisdexamfetamine [Vyvanse] 30 mg capsule 30 mg PO DAILY levothyroxine 75 mcg tablet 75 mcg PO QAM 30 Days Qty: 30 0RF Discontinued bupropion HCl 300 mg tablet extended release 24 hr 300 mg PO DAILY Follow Up: [facility] [Outside] - 01/01/25 10:30 am () 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 NP-C [Primary Care Provider] - (candy department manager left voicemail with office. They did not call back before discharge. Please call for appointment. ) Exam Physical Exam Vital Signs: Temp Pulse Resp BP Pulse Ox O2 Del Method 97.6 F 56 L 16 125/72 98 Room Air 12/03/24 07:30 12/03/24 07:30 12/03/24 07:30 12/03/24 07:30 12/03/24 07:30 12/03/24 08:50 Diagnostic Studies Completed and Pending Studies Pending studies at discharge: 11/30/24 17:23 ECG 12 lead ECG Routine Documented By: Miah Abreu MD 12/03/24 1049 Signed By: <Electronically signed by Miah Abreu MD> 12/03/24 152 [facility] Work Phone: Evaluation note* Diagnosis Onset Date Resolution Status Generalized anxiety disorder acute Major depress dis, severe ac mechoopda Stimulant use disorder acute Acute anxiety acute Major depress dis, severe ac mechoopda Stimulant use disorder acute Suicidal ideation acute [facility] Work Phone: Evaluation note* Diagnosis Onset Date Resolution Status Acute anxiety acute Major depress dis, severe ac mechoopda Stimulant use disorder acute Suicidal ideation acute Bipolar disorder acute Generalized anxiety disorder acute Stimulant use disorder acute Unspecified psychosis acute [facility] Work Phone: Evaluation note* Diagnosis Onset Date Resolution Status Major depress dis, severe ac mechoopda Stimulant use disorder acute Acute anxiety acute Bipolar disorder, current episode depressed, mild acute Generalized anxiety disorder acute Hyperlipidemia acute Hypertension acute Open wound of left wrist acu te Self-inflicted laceration of left wrist acute Stimulant use disorder acute [facility] Work Phone: Evaluation note* Diagnosis Onset Date Resolution Status Acute anxiety acute Bipolar 2 disorder, major depressive episode acute Cocaine abuse acute Elevated LFTs acute Hyperlipidemia acute Hypertension acute Hypothyroid acute Major depress dis, severe ac mechoopda Marijuana use acute Nausea acute Stimulant use disorder acute UTI (urinary tract infection), bacterial acute Rheumatoid arthritis chronic [facility] Work Phone: Evaluation note* Diagnosis Onset Date Resolution Status Acute anxiety acute Bipolar 2 disorder, major depressive episode acute Cocaine abuse acute Elevated LFTs acute Hyperlipidemia acute Hypertension acute Hypothyroid acute Major depress dis, severe ac mechoopda Marijuana use acute Nausea acute Stimulant use disorder acute UTI (urinary tract infection), bacterial acute Rheumatoid arthritis chronic Major depress dis, severe ac mechoopda Stimulant use disorder acute [facility] Work Phone: Evaluation note* Diagnosis PTSD (post-traumatic stress disorder) ([facility]/HCC) Posttraumatic stress disorder Opioid dependence in remission ([facility]/HCC) Opioid type dependence, in remission Methamphetamine dependence in remission ([facility]/HCC) Alcohol dependence in remission ([facility]/HCC) Attention deficit hyperactivity disorder (ADHD), combined type ([facility]/HCC) [facility] Diagnosis PTSD (post-traumatic stress disorder) ([facility]/HCC) Posttraumatic stress disorder Alcohol dependence in remission (CMS/HCC) Opioid dependence in remission ([facility]/HCC) Opioid type dependence, in remission Attention deficit hyperactivity disorder (ADHD), combined type ([facility]/HCC) Methamphetamine dependence in remission ([facility]/HCC) [facility] Diagnosis PTSD (post-traumatic stress disorder) ([facility]/HCC) Posttraumatic stress disorder Attention deficit hyperactivity disorder (ADHD), combined type ([facility]/HCC) Alcohol dependence in remission ([facility]/HCC) Methamphetamine dependence in remission ([facility]/HCC) Opioid dependence in remission ([facility]/HCC) Opioid type dependence, in remission [facility]* Diagnosis Onset Date Resolution Status Bipolar 2 disorder, major depressive episode acute Cocaine abuse acute Generalized anxiety disorder acute [facility] Work Phone: Evaluation note* Diagnosis Onset Date Resolution Status Acute anxiety acute Cocaine abuse acute Generalized anxiety disorder acute GERD (gastroesophageal reflux disease) acute History of hepatitis C acute Hormone replacement therapy acute Hypothyroid acute Major depress dis, severe ac mechoopda [facility] Work Phone: Evaluation note* Diagnosis PTSD (post-traumatic stress disorder) (CMS/HCC) Posttraumatic stress disorder Attention deficit hyperactivity disorder (ADHD), combined type (CMS/HCC) Methamphetamine dependence in remission (CMS/HCC) Alcohol dependence in remission (CMS/HCC) Opioid dependence in remission (CMS/HCC) Opioid type dependence, in remission [facility] Diagnosis PTSD (post-traumatic stress disorder) (CMS/HCC) Posttraumatic stress disorder Attention deficit hyperactivity disorder (ADHD), combined type (CMS/HCC) Opioid dependence in remission (CMS/HCC) Opioid type dependence, in remission Alcohol dependence in remission (CMS/HCC) Methamphetamine dependence in remission (CMS/HCC) [facility]* Diagnosis Major depressive disorder, recurrent, severe without psychotic features (CMS-HCC)- Primary Other specified hypothyroidism [facility] Diagnosis Major depressive disorder, recurrent, severe without psychotic features (CMS-HCC)- Primary Other specified hypothyroidism Anxiety- Primary Anxiety state, unspecified Hypothyroidism, unspecified type [facility] Diagnosis Major depressive disorder, recurrent, severe without psychotic features (CMS-HCC)- Primary Other specified hypothyroidism Hypothyroidism, unspecified type- Primary Healthcare maintenance Encounter for lipid screening for cardiovascular disease Primary hypertension Unspecified essential hypertension Fibromyalgia Unspecified myalgia and myositis Severe episode of recurrent major depressive disorder, without psychotic features (CMS-HCC) Hx of iron deficiency anemia [facility] - Reported* Type Description Date Medical History Bipolar II Medical History RA - refused treatment from Annette simmons Medical History hepititous c Surgical History Cervical fusion on C5 and C6 Surgical History C section Surgical History Abdominal Exploratory Surgical History laparoscopy Surgical History ablasion 05/2017 Hospitalization History 14 days for anxiety and depression Hospitalization History see surgical Hx Inkive Other Hospital Discharge instructions Additional Instructions Regular diet. No activity restrictions.[facility] Work Phone: InstructionsNot on filedocumented in this encounter [facility] filed[facility]ed in this [facility] filed[facility] in this [facility] in [facility] Summary Purpose Family History No Family [...] FoundDocuments on File Type Date Recorded 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 Advance Directives and Livin g Will Advance Directives and Livin g Will 04/27/2013 12:00 AM Power of Events Specialist Latest Code Status on File Code Status Date Activated Date Inactivated Comments Full Code 07/02/2019 12:21 AM Full Code 09/09/2017 3:56 PM 09/14/2017 10:29 PM Full Code 09/09/2017 3:47 PM 09/09/2017 3:56 PM Full Code 10/07/2016 2:58 PM 10/15/2016 9:19 AM Full Code 10/06/2016 10:43 PM 10/07/2016 2:58 PM Documents on File Type Date Recorded 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 ACP-Advance Directive ACP-Power of Events Specialist ACP-Advance Directive 04/27/2013 12:00 AM Latest Code [...] Time Advance Directives No January 03 10:04pm Date Activated Date Inactivated Comments 11/25/2022 6:03 PM 11/30/2022 2:53 PM Date Activated Date Inactivated Comments 08/16/2022 8:16 PM 08/21/2022 6:31 PM Date Activated Date Inactivated Comments 02/26/2017 11:10 PM 02/28/2017 6:32 PM Chief [...] depressive episode Cocaine abuse Generalized anxiety disorder Chief Complaint bh major depressive disorder major depressive disorder Reason for Visit Acute anxiety Cocaine abuse Generalized anxiety disorder GERD (gastroesophageal reflux disease) History of hepatitis C Hormone replacement therapy Hypothyroid Major depress dis, severe Chief Complaint Admit Date Unknown November 30, 2024 1:10pm Major Depression November 30, 2024 5:19pm Major Depression December 01, 2024 7:56 am Reason for Visit Admit Date Cocaine abuse November 30, 2024 5:19pm Mood disorder November 30, 2024 5:19pm Suicidal ideation November 30, 2024 5:19pm Chief Complaint Admit Date bh November 30, 2024 12:00pm Unknown November 30, 2024 1:10pm Major Depression November 30, 2024 5:19pm Major Depression December 01, 2024 7:56 am Additional Source Comments INFORMATION SOURCE (unrecogn ized section and content) DATE CREATED AUTHOR 03/29/2018 [facility] DATE CREATED AUTHOR AUTHOR'S ORGANIZ ATION 07/05/2019 [facility] DATE CREATED AUTHOR AUTHOR'S ORGANIZ ATION 04/09/2022 [facility] DATE CREATED AUTHOR AUTHOR'S ORGANIZ ATION 10/01/2022 [facility] DATE CREATED AUTHOR AUTHOR'S ORGANIZ ATION 01/21/2024 [facility] DATE CREATED AUTHOR AUTHOR'S ORGANIZ ATION 04/25/2024 [place] DATE CREATED AUTHOR AUTHOR'S ORGANIZ ATION 07/31/2024 [facility] DATE CREATED AUTHOR AUTHOR'S ORGANIZ ATION 09/16/2024 [facility] DATE CREATED AUTHOR AUTHOR'S ORGANIZ ATION 02/27/2025 [facility] DATE CREATED AUTHOR AUTHOR'S ORGANIZ ATION 05/09/2025 [facility] Care Teams (unrecognized sec tion and content) Team Status: Active Member Role Status Dates NINA Zabala Primary Care Provider Active Team Status: Active Member Role Status Dates NON STAFF Primary Care Provider Active Start: November 30, 2024 Olvin Rollins MD Attending Provider Active Start: November 30, 2024 Team Status: Inactive Member Role Status Dates Gris Ferguson PA-C Attending Provider Active Sta rt: November 30, 2024 End: November 30, 2024 Team Status: Inactive Member Role Status Dates NINA Zabala Primary Care Provider Active Start: November 30, 2024 End: December 03, 2024 Olvin Rollins MD Admit Provide r, Attending Provider Active Start: November 30, 2024 End: December 03, 2024 Team Status: Active Member Role Status Dates 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 MEDIA STRATEGIST-C Primary Care Provider Active Start: December 01, 2024 Olvin Rollins MD Admit Provide r, Attending Provider, Other Provider Active Start: December 01, 2024 Team Status: Active Member Role Status Dates 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 MEDIA STRATEGIST-C Primary Care Provider Active Start: November 30, 2024 Olvin Rollins MD Admit Provide r, Attending Provider Active Start: November 30, 2024 Team Status: Active Member Role Status Dates 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 MEDIA STRATEGIST-C Primary Care Provider Active Start: June 20, 2024 Ravi Kaplan DO Attending Provider Active Sta rt: June 20, 2024 Team Status: Active Member Role Status Dates NON STAFF Primary Care Provider Active Start: July 14, 2024 Olvin Rollins MD Attending Provider Active Start: July 14, 2024 Team Status: Inactive Member Role Status Dates 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 MEDIA STRATEGIST-C Primary Care Provider Active Start: July 14, 2024 End: July 17, 2024 Olvin Rollins MD Admit Provide r, Attending Provider Active Start: July 14, 2024 End: July 17, 2024 Michelle Ko RN Other Provider Active Star t: July 14, 2024 End: July 17, 2024 Jennifer Bonner , GROVER Other Provider Active Start : July 14, 2024 End: July 17, 2024 Carmella Lazo RN Other Provider Active Star t: July 14, 2024 End: July 17, 2024 Vaishali Rivera , GROVER Other Provider Active Start: O ctober 2023 End: July 17, 2024 Ciara Fernandez , GROVER Other Provider Active Start: Oc tober 2023 End: July 17, 2024 Valentina Nice DO Other Provider Active Start : July 14, 2024 End: July 17, 2024 Rush Ramsey MD Other Provider Active Start : July 14, 2024 End: July 17, 2024 Santi Rudd DO Other Provider Active Start: July 14, 2024 End: July 17, 2024 Zeus Bright MD Other Provider Active Start: July 14, 2024 End: July 17, 2024 Ya Simms MD Other Provider Active Start : July 14, 2024 End: July 17, 2024 Nilton Harris MD Other Provider Active Start: O ct2023 End: July 17, 2024 Adele Hunter APRN Other Provider Active Start: July 14, 2024 End: July 17, 2024 Yessy Bustillos MD Other Provider Active Start: July 14, 2024 End: July 17, 2024 Irwin Rivero MD Other Provider Active Start: O ctober 2023 End: July 17, 2024 Jose Loaiza MD Other Provider Active Start: July 14, 2024 End: July 17, 2024 Demario Spicer MD Other Provider Active Start: July 14, 2024 End: July 17, 2024 Gelacio Callahan DO Other Provider Active Start: July 14, 2024 End: July 17, 2024 Becca Bustos MD Other Provider Active Start: 2023 End: July 17, 2024 Kamron Solis MD Other Provider Active Start: Jul End: July 17, 2024 STACEY PaintingC Other Provider Active St art: July 14, 2024 End: July 17, 2024 Luis Solis APRN Other Provider Active Star t: July 14, 2024 End: July 17, 2024 Abisai Madrid MD Other Provider Active Start: July 14, 2024 End: July 17, 2024 Wolf Irwin MD Other Provider Active Start: 2023 End: July 17, 2024 Hammad Zayas MD Other Provider Active Start: Jul End: July 17, 2024 Kia Yancey MD Other Provider Active Star t: July 14, 2024 End: July 17, 2024 Georgi Rodríguez MD Other Provider Active Start: O ctober 2023 End: July 17, 2024 Debbie Greenwood DO Other Provider Active Start: 2023 End: July 17, 2024 Jordan Dumont DO Other Provider Active Start : July 14, 2024 End: July 17, 2024 Janie Douglas APRN Other Provider Active Start: July 14, 2024 End: July 17, 2024 Eddie Jensen DO Other Provider Active Start: July 14, 2024 End: July 17, 2024 Emanuel Esposito MD Other Provider Active Sta rt: July 14, 2024 End: July 17, 2024 Jael Chan APRN Other Provider Active Start : July 14, 2024 End: July 17, 2024 Fabi Delgado APRN Other Provider Active St art: July 14, 2024 End: July 17, 2024 Danny Mancia MD Other Provider Active Start: O ctober 2023 End: July 17, 2024 Sánchez Noble MD Other Provider Active S tart: July 14, 2024 End: July 17, 2024 Lexx Fox , Other Provider Active Star t: July 14, 2024 End: July 17, 2024 Maycol Lee DO Other Provider Active Start: July 14, 2024 End: July 17, 2024 Hermes Zayas MD Other Provider Active Start: July 14, 2024 End: July 17, 2024 Masoud Hoffman MD Other Provider Active Start: July 14, 2024 End: July 17, 2024 Makayla Flanagan APRN Other Provider Active Star t: July 14, 2024 End: July 17, 2024 Felipe Graff MD Other Provider Active Start: O ctober 2023 End: July 17, 2024 Amador Sanchez MD Other Provider Active Start: Oc tober 2023 End: July 17, 2024 Charito Galvan RN Other Provider Active Start: O ctober 2023 End: July 17, 2024 Team Status: Active Member Role Status Dates 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 NP-C Primary Care Provider Active Start: July 15, 2024 Olvin Rollins MD Admit Muna r, Attending Provider, Other Provider Active Start: July 15, 2024 Michelle Ko RN Other Provider Active Star t: July 15, 2024 Jennifer Bonner RN Other Provider Active Start : July 15, 2024 Carmella Lazo RN Other Provider Active Star t: July 15, 2024 Vaishali Rivera , GROVER Other Provider Active Start: O ctober 2023 Ciara Fernandez RN Other Provider Active Start: Oc tober 2023 Valentina Nice , Other Provider Active Start : July 15, 2024 Rush Ramsey MD Other Provider Active Start : July 15, 2024 Santi Rudd , Other Provider Active Start: July 15, 2024 Zeus Bright MD Other Provider Active Start: July 15, 2024 Ya Simms MD Other Provider Active Start : July 15, 2024 Nilton Harris MD Other Provider Active Start: O ctober 2023 Adele Hunter APRN Other Provider Active Start: July 15, 2024 Yessy Bustillos MD Other Provider Active Start: July 15, 2024 Irwin Rivero MD Other Provider Active Start: O ctober 2023 Jose Loaiza MD Other Provider Active Start: July 15, 2024 Demario Spicer MD Other Provider Active Start: July 15, 2024 Gelacio Callahan DO Other Provider Active Start: July 15, 2024 Becca Bustos MD Other Provider Active Start: Oc tober 2023 Kamron Solis MD Other Provider Active Start: Jul efrain2023 Gris Breaux MEDIA STRATEGIST-C Other Provider Active St art: July 15, 2024 Luis Solis APRN Other Provider Active Star t: July 15, 2024 Abisai Madrid MD Other Provider Active Start: July 15, 2024 Wolf Irwin MD Other Provider Active Start: Oc tober 2023 Hammad Zayas MD Other Provider Active Start: Jul efrain2023 Kia Yancey MD Other Provider Active Star t: July 15, 2024 Georgi Rodríguez MD Other Provider Active Start: O ctober 2023 Debbie Greenwood DO Other Provider Active Start: Oc tober 2023 Jordan Dumont , Other Provider Active Start : July 15, 2024 Janie Douglas APRN Other Provider Active Start: July 15, 2024 Eddie Jensen DO Other Provider Active Start: July 15, 2024 Emanuel Esposito MD Other Provider Active Sta rt: July 15, 2024 Jael Chan APRN Other Provider Active Start : July 15, 2024 Fabi Delgado APRN Other Provider Active St art: July 15, 2024 Danny Mancia MD Other Provider Active Start: O ctober 2023 Sánchez Noble MD Other Provider Active S tart: July 15, 2024 Lexx Fox , DO Other Provider Active Star t: July 15, 2024 Maycol Lee , Other Provider Active Start: July 15, 2024 Hermes Zayas MD Other Provider Active Start: July 15, 2024 Masoud Hoffman MD Other Provider Active Start: July 15, 2024 Makayla Flanagan APRN Other Provider Active Star t: July 15, 2024 Felipe Graff MD Other Provider Active Start: O ctober 2023 Amador Sanchez MD Other Provider Active Start: Oc tober 2023 Charito Galvan RN Other Provider Active Start: O ctober 2023 E Learning Specialist Relationship Specialty Start Date End Date Imm, [...] Active Serafin Rollins MD Admit Provider, Attending Analilia del realer Active Michelle Ko , GROVER Other Provider Active Jennifer Bonner , RN Other Provider Active Meme Delacruz , RN Other Provider Active Carmella Lazo , GROVER Other Provider Active Arianna Centeno , GROVER Other Provider Active Vaishali Rivera , GROVER Other Provider Active Alessandra Luna , ALPINE PATROLLER Other Provider Active Valentina Nice , DO [...] Active Demario Spicer MD Other Provider Active Gelacio Callahan , DO Other Provider Active Becca Bustos MD Other Provider Active Kamron Solis MD Other Provider Active Gris Breaux , MEDIA STRATEGIST-C Other Provider Active Abisai Madrid MD Other Provider Active Wolf Irwin MD Other Provider Active Hammad Zayas MD Other Provider Active Georgi Rodríguez MD Other Provider Active Debbie Greenwood , DO Other Provider Active Jordan Dumont , DO Other Provider Active Jim Wells , DO Other Provider Active Janie Douglas , ALPINE PATROLLER Other Provider Active Eddie Jensen , DO Other Provider Active Emanuel Esposito MD Other Provider Active Jael Chan , ALPINE PATROLLER Other Provider Active Fabi Delgado , ALPINE PATROLLER Other Provider Active Danny Mancia MD Other Provider Active Sánchez Noble MD Other Provider Active Charito Galvan RN Other Provider Active Guilherme Carbone MD Other Provider Active Gelacio Molina MD Other Provider Active Charity Manzo MD Other Provider Active Monroe Zepeda , DO Other Provider Active Enrico Alcazar II, MD Other Provider Active Gwyn Wyatt , DO Other Provider Active Team Status: Inactive Member Role Status Dates NON STAFF Primary Care Provider Active Olvin Rollins MD Admit Provider, Attending Linda cannon Active Michelle Ko RN Other Provider Active Jennifer Gearheart , RN Other Provider Active Meme Delacruz , RN Other Provider Active Carmella Lazo , GROVER Other Provider Active Arianna Centeno , GROVER Other Provider Active Vaishali Rivera , GROVER Other Provider Active Alon Chand MD Other Provider Active Alessandra Luna , ALPINE PATROLLER Other Provider Active Valentina Nice , DO Other Provider Active Rush Ramsey MD Other Provider Active Santi Rudd , DO Other Provider Active Zeus Bright MD Other Provider Active Ya Simms MD Other Provider Active Adele Hunter , ALPINE PATROLLER Other Provider Active Yessy Bustillos MD Other Provider Active Irwin Rivero MD Other Provider Active Jose Loaiza MD Other Provider Active Demario Spicer MD Other Provider Active Gelacio Callahan , DO Other Provider Active Becca Bustos MD Other Provider Active Kamron Solis MD Other Provider Active Gris Breaux , MEDIA STRATEGIST-C Other Provider Active Abisai Madrid MD Other Provider Active Wolf Irwin MD Other Provider Active Hammad Zayas MD Other Provider Active Georgi Rodríguez MD Other Provider Active Debbie Greenwood , DO Other Provider Active Jordan Dumont , DO Other Provider Active Jim Wells , DO Other Provider Active Janie Douglas , ALPINE PATROLLER Other Provider Active Eddie Jensen , DO Other Provider Active Emanuel Esposito MD Other Provider Active Jael Chan , ALPINE PATROLLER Other Provider Active Fabi Delgado , ALPINE PATROLLER Other Provider Active Danny Mancia MD Other Provider Active Sánchez Noble MD Other Provider Active Lexx Fox , DO Other Provider Active Sofia Malagon , ALPINE PATROLLER Other Provider Active Maycol Lee , DO Other Provider Active Charito Galvan , GROVER Other Provider Active E Learning Specialist Relationship Specialty Start Date End Date Lili Woo MD [address] [place] [address] PCP - General Family Medicine 07/14/23 E Learning Specialist Relationship Specialty Start Date End Date Lili Woo MD [address] [place] [address] PCP - General Family Medicine 07/14/23 E Learning Specialist Relationship Specialty Start Date End Date Lili Woo MD [address] [place] [address] PCP - General Family Medicine 07/14/23 Team Status: Inactive Member Role Status Dates [...] Other Provider Active Start: January 18, 2024 E Learning Specialist Relationship Specialty Start Date End Date Lili Woo MD [address] [place] [address] PCP - General Family Medicine 07/14/23 E Learning Specialist Relationship Specialty Start Date End Date 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 APRN-SENIOR LABORATORY TECHNICIAN [address] [place] [phone] PCP - General Nurse Practitioner 12/01/23 E Learning Specialist Relationship Specialty Start Date End Date 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 APRN-SENIOR LABORATORY TECHNICIAN [address] [place] [phone] PCP - General Nurse Practitioner 12/01/23 E Learning Specialist Relationship Specialty Start Date End Date 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 APRN-SENIOR LABORATORY TECHNICIAN [address] [place] [address] [place] [phone] PCP - General Nurse Practitioner 12/01/23 E Learning Specialist Relationship Specialty Start Date End Date 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 APRN-SENIOR LABORATORY TECHNICIAN [address] [place] [address], [place] [place] [phone] PCP - General Nurse Practitioner 12/01/23 E Learning Specialist Relationship Specialty Start Date End Date 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 [facility] [address] [place], [place] [phone] PCP - General Nurse Practitioner 12/01/23 E Learning Specialist Relationship Specialty Start Date End Date 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 APRNFABRIZIO [address] [place] [address], [place] [phone] PCP - General Nurse Practitioner 12/01/23 E Learning Specialist Relationship Specialty Start Date End Date 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 [facility]LA[facility] [address] [place] [address], [place] [phone] PCP - General Nurse Practitioner 12/01/23 REASON FOR VISIT (unrecogniz ed section and content) Reason Comments Counseling session Reason Onset Date Comments No show after recent hospitalization 07/19/2024 Call placed to Lili Woo Md who is listed as patient's PCP. Patient was recently released from [facility] due to depression and was a no call no show for her appointment this morning at 10 am. Reason Comments Follow-up Discharge follow up Reason Onset Date Comments Med Refill 12/19/2024 Reason Comments Follow-up Hypothyroidism Reason Onset Date Comments Vomiting 04/17/2025 FOR RECORDS PERTAINING TO PATIENTS WHO ARE [...] BE BASED ON THE PRIMARY CLINICAL RECORDS. [facility]. provides no warranty or guarantee of the accuracy or completeness of information in this document.
--- NOTE | 2025-06-12 10:55 | ECG_ITS ---
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
--- NOTE | 2025-06-12 10:56 | ED.GENADUL1 ---
HPI HPI - General Adult General Chief complaint: Psychiatric Symptoms Stated complaint: ANXIETY DEPRESSION Time Seen by Provider: 06/12/25 10:38 Source: patient Mode of arrival: walk-in Limitations: no limitations History of Present Illness HPI narrative: 50-year-old female presents to the emergency department for feeling depressed. She has had some intrusive thoughts of harming herself but has not acted on them. She does not have a specific plan. She states she has been dealing with this her whole life and the last time she was hospitalized was at [facility] and that was about 6 months ago. No physical complaints. Related Data Home Medications ?Medication ?Instructions ?Recorded ?Confirmed levothyroxine 75 mcg tablet 75 mcg PO DAILY 04/13/23 06/12/25 lisdexamfetamine 30 mg capsule 30 mg PO DAILY 04/13/23 06/12/25 (Vyvanse) clonazepam 1 mg tablet 1 mg PO Q8H PRN anxiety 04/17/25 06/12/25 Allergies Allergy/AdvReac Type Severity Reaction Status Date / Time buspirone (From BuSpar) Allergy Anxiety Verified 06/12/25 10:38 hydroxyzine (From Vistaril) Allergy hyperactive Verified 06/12/25 10:38 metronidazole (From Flagyl) Allergy Hallucinati Verified 06/12/25 10:38 ng tramadol Allergy Seizure Verified 06/12/25 10:38 trimethoprim (From Bactrim) AdvReac Severe Diarrhea Verified 06/12/25 10:38 nubane Allergy Unknown Uncoded 06/12/25 10:38 SSRIs Allergy Suicidal Uncoded 06/12/25 10:38 Opioid HPI Opioid Management Most Recent Opioid Data: Last Pain Scale 7 10/22/24, 14:59 Ur Phencyclidine Scrn, (NEGATIVE) Negative Today, 11:00 Review of Systems ROS Narrative A ten point review of systems is negative except as noted above. PFSH PFSH Social History Smoking status: Current every day smoker Little interest or pleasure in doing things: nearly every day Feeling down, depressed, or hopeless: nearly every day Exam Narrative Exam Narrative: Nurses note and vital signs reviewed and patient is not hypoxic. General: The patient appears well and in no apparent distress. Patient is resting comfortably on cart. Skin: Warm, dry, no pallor noted. There is no rash noted. Head: Normocephalic, atraumatic Eye: Normal conjunctiva, no drainage Ears, Nose, Mouth, and Throat: oral mucosa is moist. Nares patent. Cardiovascular: Regular Rate and Rhythm Respiratory: Patient is in no distress, no accessory muscle use, lungs are clear to auscultation, no wheezing, rales or rhonchi Back: non-tender GI: Soft and nontender Musculoskeletal: The patient has no evidence of calf tenderness, no pitting edema, symmetrical pulses noted bilaterally Neurological: A&O x4, normal speech Psychiatric: Cooperative, tearful Constitutional Vital Signs, click to edit/add: Last Vital Signs Temp 98.4 F 06/12/25 10:29 Pulse 77 06/12/25 10:29 Resp 16 06/12/25 10:29 BP 149/90 H 06/12/25 10:29 Pulse Ox 98 06/12/25 10:29 O2 Del Method Room Air 06/12/25 10:29 Course Vital Signs Vital signs: Vital Signs Temperature 98.4 F 06/12/25 10:29 Pulse Rate 77 06/12/25 10:29 Respiratory Rate 16 06/12/25 10:29 Blood Pressure 149/90 H 06/12/25 10:29 Pulse Oximetry 98 06/12/25 10:29 Oxygen Delivery Method Room Air 06/12/25 10:29 Temperature 98.4 F 06/12/25 10:29 Pulse Rate 77 06/12/25 10:29 Respiratory Rate 16 06/12/25 10:29 Blood Pressure 149/90 H 06/12/25 10:29 Pulse Oximetry 98 06/12/25 10:29 Oxygen Delivery Method Room Air 06/12/25 10:29 Medical Decision Making MDM Narrative Medical decision making narrative: The patient is medically cleared. She is going to voluntarily be transferred to [address] [place] [address]. She is agreeable and stable for transfer Differential Diagnosis Differential Diagnosis: Depression, suicidal ideation Lab Data Lab results reviewed: Yes I reviewed the patient's lab results Labs: Lab Results 06/12/25 06/12/25 Range/Units 11:00 11:09 WBC 6.1 (4.0-11.0) 10^3/uL RBC 4.38 (4.20-5.40) 10^6/uL Hgb 14.4 (12.0-16.0) g/dL Hct 42.6 (36.0-48.0) % MCV 97.3 (81.0-99.0) fL MCH 32.9 (26.7-34.0) pg MCHC 33.8 (29.9-35.2) g/dL RDW 12.2 (11.0-15.0) % Plt Count 222 (150-450) 10^3/uL MPV 11.5 (9.5-13.5) fL Neut % (Auto) 77.5 H (43.0-75.0) % Lymph % (Auto) 14.4 L (20.5-60.0) % [place] % (Auto) 6.7 (1.7-12.0) % Eos % (Auto) 0.8 L (0.9-7.0) % Baso % (Auto) 0.3 (0.2-2.0) % Neut # (Auto) 4.7 (1.4-6.5) 10^3/uL Lymph # (Auto) 0.9 L (1.2-3.8) 10^3/uL [place] # (Auto) 0.4 (0.3-0.8) 10^3/uL Eos # (Auto) 0.1 (0.0-0.7) 10^3/uL Baso # (Auto) 0.0 (0.0-0.1) 10^3/uL Abs Immat Gran (auto) 0.02 (0.00-0.03) 10^3/uL Imm/Tot Granulo (auto) 0.3 (0.0-0.5) % Sodium 142 (136-145) mmol/L Potassium 4.1 (3.5-5.1) mmol/L Chloride 107 (98-107) mmol/L Carbon Dioxide 26.7 (21.0-32.0) mmol/L Anion Gap 12.4 BUN 11.0 (7.0-18.0) mg/dL Creatinine 0.81 (0.55-1.02) mg/dL Est GFR ( Amer) >60 (>=60 mL/min/1.73m^2) Est GFR (Non-Af Amer) >60 (>=60 mL/min/1.73m^2) BUN/Creatinine Ratio 13.6 Glucose 95 (74-106) mg/dL Calcium 9.1 (8.5-10.1) mg/dL Urine Color Lt. yellow (YELLOW) Urine Clarity Clear (CLEAR) Urine pH 6.5 (5.0-9.0) Ur Specific [place] 1.010 (1.005-1.025) Urine Protein Negative (NEG/TRACE) mg/dL Urine Glucose (UA) Negative (NEGATIVE) mg/dL Urine Ketones Negative (NEGATIVE) mg/dL Urine Occult Blood Negative (NEGATIVE) Urine Nitrite Negative (NEGATIVE) Urine Bilirubin Negative (NEGATIVE) Urine Urobilinogen 0.2 (0.2-1.0) EU/dL Ur Leukocyte Esterase Negative (NEGATIVE) Urine RBC None seen (0-2) #/HPF Urine WBC None seen (NONE SEEN) #/HPF Ur Squamous Epith Cells Rare (NONE/RARE) #/LPF Urine Crystals None seen (None Seen) #/HPF Urine Bacteria None seen (NONE SEEN) #/HPF Urine Casts None seen (NONE SEEN) #/LPF Urine Mucus None seen (NONE SEEN) Ur Culture Indicated? No Salicylates <2.8 (<=19.9) mg/dL Urine Opiates Screen Negative (NEGATIVE) Ur Buprenorphine Scrn Negative (NEGATIVE) Ur Oxycodone Screen Negative (NEGATIVE) Urine Methadone Screen Negative (NEGATIVE) Acetaminophen <2.0 L (10.0-30.0) ug/mL Ur Barbiturates Screen Negative (NEGATIVE) U Tricyclic Antidepress Negative (NEGATIVE) Ur Phencyclidine Scrn Negative (NEGATIVE) Ur Amphetamines Screen Negative (NEGATIVE) U Methamphetamines Scrn Negative (NEGATIVE) U Benzodiazepines Scrn Positive A (NEGATIVE) Urine Cocaine Screen Negative (NEGATIVE) U Cannabinoids Screen Positive A (NEGATIVE) Ethanol Quant <3 mg/dL ECG Data Attestation: I personally reviewed and interpreted this ECG as follows: (EKG on my interpretation shows sinus rhythm with rate of 74 no acute change) Discharge Plan Discharge Chief Complaint: Psychiatric Symptoms Clinical Impression: Major depression Patient Disposition: [facility] Time of Disposition Decision: 12:20 Discharge Location: [facility] Condition: Good Mode of Transportation: EMS
[2025-06-12 11:18] LABS: Hematocrit 42.6 % (36.0-48.0); Hemoglobin 14.4 g/dL (12.0-16.0); Immature Granulocytes Abs Auto 0.02 10^3/uL (0.00-0.03); Immature Granulocytes Pct Auto 0.3 % (0.0-0.5); Lymphocytes Absolute Auto 0.9 10^3/uL (1.2-3.8); Mean Corpuscular HGB Conc 33.8 g/dL (29.9-35.2); Mean Corpuscular Hemoglobin 32.9 pg (26.7-34.0); Mean Corpuscular Volume 97.3 fL (81.0-99.0); Platelet Count 222 10^3/uL (150-450); Red Blood Count 4.38 10^6/uL (4.20-5.40); White Blood Count 6.1 10^3/uL (4.0-11.0)
[2025-06-12 11:30] LABS: Glucose Urine UA NEGATIVE (NEGATIVE)
[2025-06-12 11:31] LABS: Anion Gap 12.4; Blood Urea Nitrogen 11.0 mg/dL (7.0-18.0); Calcium 9.1 mg/dL (8.5-10.1); Carbon Dioxide 26.7 mmol/L (21.0-32.0); Chloride 107 mmol/L (98-107); Estimated GFR (African America >60 (>=60 mL/min/1.73m^2); Estimated GFR (Non-African Ame >60 (>=60 mL/min/1.73m^2); Glucose 95 mg/dL (74-106); Potassium 4.1 mmol/L (3.5-5.1); Sodium 142 mmol/L (136-145)
[2025-06-12 11:32] LABS: Salicylate <2.8 mg/dL (<=19.9)
[2025-06-12 11:34] LABS: Acetaminophen <2.0 ug/mL (10.0-30.0)
[2025-06-12 11:48] LABS: Cast Seen? NONE SEEN #/LPF (NONE SEEN); Crystals Seen? None Seen #/HPF (None Seen); Urine Culture Indicated NO
[2025-06-12 11:50] LABS: Cannabinoid Screen Urine POSITIVE (NEGATIVE); Methamphetamines Screen Urine NEGATIVE (NEGATIVE); Tricyclic Antidepressant Urine NEGATIVE (NEGATIVE)
[2025-06-12] MEDS: LORAZEPAM 1 MG TABLET PO (12:34)
== END 2025-06-12 13:02 ==
PROVIDERS: Emergency Provider Emergency Medicine; PCP Nurse Practitioner Family
DX: F32.9 Major depressive disorder, single episode, unspecified (principal)
CPT/HCPCS: 36415; 80048; 80179; 80307; 80320; 80329; 81001; 85025; 93005; 99285

== ENCOUNTER 2025-09-01 11:11 | Emergency (ER) | payer MEDICAID, SELFPAY ==
[2025-09-01 11:13] VITALS: BP 170/104; PULSE 95; TEMP 37; O2SAT 96; BMI 32.9
--- NOTE | 2025-09-01 11:27 | ECG_ITS ---
[facility] Test Date: 2025-09-01 Pat Name: LOYDA MITTAL Department: Room: - Gender: Female Button Maker: : 1975 Requested By: 1030 Order Number: [id number] Reading MD: SANGEETHA MELÉNDEZ M.D. Measurements Intervals [place] Rate: 87 P: 25 [place]: 120 QRS: 76 QRSD: 80 T: 48 QT: 372 QTc: 416 Interpretive Statements 1100 Sinus rhythm 8102 Low QRS voltage in chest leads 9120 atypical ECG Compared to ECG 06/12/2025 10:56:42 No significant changes Electronically Signed On 09-01-2025 11:56:22 EST by SANGEETHA MELÉNDEZ M.D.
--- NOTE | 2025-09-01 11:28 | ED.GENADUL1 ---
HPI HPI - General Adult General Chief complaint: Psychiatric Symptoms Stated complaint: SUICIDAL IDEATION Time Seen by Provider: 09/01/25 11:15 Source: patient Mode of arrival: ambulance History of Present Illness HPI narrative: 50-year-old female presents for suicidal thoughts. She has not acted on these thoughts but has a plan, she would cut her wrists. She had cut her wrist years ago in a suicide attempt. She has a counseling appointment scheduled for tomorrow, she states her first 1 recently. She does not seem to have any physical complaints. She states she is upset about several recent deaths of people that she knows. Related Data Home Medications ?Medication ?Instructions ?Recorded ?Confirmed levothyroxine 75 mcg tablet 75 mcg PO DAILY 04/13/23 06/12/25 lisdexamfetamine 30 mg capsule 30 mg PO DAILY 04/13/23 06/12/25 (Vyvanse) clonazepam 1 mg tablet 1 mg PO Q8H PRN anxiety 04/17/25 06/12/25 Allergies Allergy/AdvReac Type Severity Reaction Status Date / Time buspirone (From BuSpar) Allergy Anxiety Verified 06/12/25 10:38 hydroxyzine (From Vistaril) Allergy hyperactive Verified 06/12/25 10:38 metronidazole (From Flagyl) Allergy Hallucinati Verified 06/12/25 10:38 ng tramadol Allergy Seizure Verified 06/12/25 10:38 trimethoprim (From Bactrim) AdvReac Severe Diarrhea Verified 06/12/25 10:38 nubane Allergy Unknown Uncoded 06/12/25 10:38 SSRIs Allergy Suicidal Uncoded 06/12/25 10:38 Opioid HPI Opioid Management Most Recent Opioid Data: Last Pain Scale 7 10/22/24, 14:59 Ur Phencyclidine Scrn, (NEGATIVE) Negative Today, 11:20 Review of Systems ROS Narrative A ten point review of systems is negative except as noted above. PFSH PFSH Social History Smoking status: Current every day smoker Little interest or pleasure in doing things: nearly every day Feeling down, depressed, or hopeless: nearly every day Exam Narrative Exam Narrative: Nurses note and vital signs reviewed General:The patient appears well and in no apparent distress.Patient is resting comfortably on cart. Skin:Warm, dry, no pallor noted.There is no rash noted. Head:Normocephalic, atraumatic Eye: Normal conjunctiva, no drainage Ears, Nose, Mouth, and Throat: oral mucosa is moist. Nares patent. Cardiovascular:Regular Rate and Rhythm Respiratory:Patient is in no distress, no accessory muscle use, lungs are clear to auscultation, no wheezing, rales or rhonchi Back:non-tender GI soft and nontender Musculoskeletal: The patient has no evidence of calf tenderness, no pitting edema, symmetrical pulses noted bilaterally Neurological:A&O x4, normal speech Psychiatric:Cooperative Constitutional Vital Signs, click to edit/add: Last Vital Signs Temp 98.6 F 09/01/25 11:13 Pulse 95 H 09/01/25 11:13 Resp 18 09/01/25 11:13 BP 170/104 H 09/01/25 11:13 Pulse Ox 96 09/01/25 11:13 Course Vital Signs Vital signs: Vital Signs Temperature 98.6 F 09/01/25 11:13 Pulse Rate 95 H 09/01/25 11:13 Respiratory Rate 18 09/01/25 11:13 Blood Pressure 170/104 H 09/01/25 11:13 Pulse Oximetry 96 09/01/25 11:13 Temperature 98.6 F 09/01/25 11:13 Pulse Rate 95 H 09/01/25 11:13 Respiratory Rate 18 09/01/25 11:13 Blood Pressure 170/104 H 09/01/25 11:13 Pulse Oximetry 96 09/01/25 11:13 Medical Decision Making MDM Narrative Medical decision making narrative: The patient is medically cleared. She has spoken to mental health services and follow-up is arranged. She will not require admission to the hospital. Differential Diagnosis Differential Diagnosis: Depression, suicidal ideation, anxiety Lab Data Lab results reviewed: Yes I reviewed the patient's lab results Labs: Lab Results 09/01/25 09/01/25 09/01/25 Range/Units 11:20 11:59 12:25 WBC 6.5 (4.0-11.0) 10^3/uL RBC 4.04 L (4.20-5.40) 10^6/uL Hgb 13.5 (12.0-16.0) g/dL Hct 38.2 (36.0-48.0) % MCV 94.6 (81.0-99.0) fL MCH 33.4 (26.7-34.0) pg MCHC 35.3 H (29.9-35.2) g/dL RDW 11.3 (11.0-15.0) % Plt Count 211 (150-450) 10^3/uL MPV 11.0 (9.5-13.5) fL Neut % (Auto) 76.6 H (43.0-75.0) % Lymph % (Auto) 15.3 L (20.5-60.0) % [place] % (Auto) 6.4 (1.7-12.0) % Eos % (Auto) 0.6 L (0.9-7.0) % Baso % (Auto) 0.5 (0.2-2.0) % Neut # (Auto) 5.0 (1.4-6.5) 10^3/uL Lymph # (Auto) 1.0 L (1.2-3.8) 10^3/uL [place] # (Auto) 0.4 (0.3-0.8) 10^3/uL Eos # (Auto) 0.0 (0.0-0.7) 10^3/uL Baso # (Auto) 0.0 (0.0-0.1) 10^3/uL Abs Immat Gran (auto) 0.04 H (0.00-0.03) 10^3/uL Imm/Tot Granulo (auto) 0.6 H (0.0-0.5) % Sodium 143 (136-145) mmol/L Potassium 4.2 (3.5-5.1) mmol/L Chloride 107 (98-107) mmol/L Carbon Dioxide 28.8 (21.0-32.0) mmol/L Anion Gap 11.4 BUN 8.0 (7.0-18.0) mg/dL Creatinine 0.72 (0.55-1.02) mg/dL Est GFR ( Amer) >60 (>=60 mL/min/1.73m^2) Est GFR (Non-Af Amer) >60 (>=60 mL/min/1.73m^2) BUN/Creatinine Ratio 11.1 Glucose 98 (74-106) mg/dL Calcium 8.9 (8.5-10.1) mg/dL Urine Color Lt. yellow (YELLOW) Urine Clarity Clear (CLEAR) Urine pH 6.0 (5.0-9.0) Ur Specific [place] 1.010 (1.005-1.025) Urine Protein Negative (NEG/TRACE) mg/dL Urine Glucose (UA) Negative (NEGATIVE) mg/dL Urine Ketones Negative (NEGATIVE) mg/dL Urine Occult Blood Negative (NEGATIVE) Urine Nitrite Negative (NEGATIVE) Urine Bilirubin Negative (NEGATIVE) Urine Urobilinogen 0.2 (0.2-1.0) EU/dL Ur Leukocyte Esterase Negative (NEGATIVE) Urine RBC None seen (0-2) #/HPF Urine WBC None seen (NONE SEEN) #/HPF Ur Squamous Epith Cells None seen (NONE/RARE) #/LPF Urine Crystals None seen (None Seen) #/HPF Urine Bacteria Trace A (NONE SEEN) #/HPF Urine Casts None seen (NONE SEEN) #/LPF Urine Mucus None seen (NONE SEEN) Salicylates <2.8 (<=19.9) mg/dL Urine Opiates Screen Negative (NEGATIVE) Ur Buprenorphine Scrn Negative (NEGATIVE) Ur Oxycodone Screen Negative (NEGATIVE) Urine Methadone Screen Negative (NEGATIVE) Acetaminophen <2.0 L (10.0-30.0) ug/mL Ur Barbiturates Screen Negative (NEGATIVE) U Tricyclic Antidepress Positive A (NEGATIVE) Ur Phencyclidine Scrn Negative (NEGATIVE) Ur Amphetamines Screen Positive A (NEGATIVE) U Methamphetamines Scrn Negative (NEGATIVE) U Benzodiazepines Scrn Positive A (NEGATIVE) Urine Cocaine Screen Negative (NEGATIVE) U Cannabinoids Screen Positive A (NEGATIVE) Ethanol Quant <3 mg/dL ECG Data Attestation: I personally reviewed and interpreted this ECG as follows: (EKG on my interpretation shows sinus rhythm with a rate of 87 and no acute change) Discharge Plan Discharge Chief Complaint: Psychiatric Symptoms Clinical Impression: Depression Patient Disposition: Home, Self-Care Time of Disposition Decision: 12:39 Condition: Good Mode of Transportation: Private Vehicle Prescriptions / Home Meds: No Action levothyroxine 75 mcg tablet 75 mcg PO DAILY lisdexamfetamine [Vyvanse] 30 mg capsule 30 mg PO DAILY clonazepam 1 mg tablet 1 mg PO Q8H PRN (Reason: anxiety) Print Language: Malagasy Instructions: Depression (ED) Referrals: Stephanie Bowser, BUILDING MANAGER [Primary Care Provider] - 1 week
--- OUTSIDE RECORDS SUMMARY | 2025-09-01 11:46 | XMS_ITS | Patient Health Record ---
Author Organization [facility] Address [address] [place] [address] Care Team Providers Care Certified Hyperbaric Technician Name Role Phone Dr. Howard Mckeon Primary Care Provider Allergies Allergen (clinical drug ingredient) Drug/Non Drug Allergy documented on EMR Reaction Allergy Type Onset Date Status Information temporarily unavailable Bactrim vomiting Drug Allergy ActiveInformation temporarily unavailableKetorolac TromethamineUnknownDrug AllergyActiveInformation temporarily unavailableKlonopinangryDrug AllergyActive Information temporarily unavailableNubainUnknownDrug AllergyActiveInformation temporarily unavailableUltramUnknownDrug AllergyActiveInformation temporarily unavailableFlagylvomitingDrug AllergyActive Reason For Referral No Information Medications Medication SIG (Take, Route, Frequency, Duration) Notes Start Date End Date Status Effexor XR 75 MG Capsule Ext ended Release 24 Hour 1 capsule with food Orally Once a day ActivebusPIRone HCl 7.5 MG Tablet1 tablet Orally Twice a day; Duration: 30 days 11/09/2013ctivehydrOXYzine HCl 100 MG Tablet1 tablet as needed Orally Four times a day as needed; Duration: 30 days11/09/2013ctiveAcyclovir 400 MG Tablet1 tablet Orally Twice a day; Duration: 30 day(s)11/09/2013ctiveMethadone HCl 10 MG Tablet1 tablet Orally FOUR TIMES A DAYActiveLaMICtal 25 MG Tablet1 tab Orally Twice a dayActive Social History Section Notes: SMOKES THREE OR FOUR A DAY Problems Problem Type SNOMED Code ICD Code Onset Dates Problem Status W/U Status Risk Notes Problem Information temporarily unavaila ble Bipolar disorder, unspecified (296.80) ActiveconfirmedProblemInformation temporarily unavailableAnxiety state, unspecified (300.00)ActiveconfirmedProblemInformation temporarily unavailable Rheumatoid arthritis (714.0)ActiveconfirmedProblemInformation temporarily unavailableFibromyalgia (729.1)Activeconfirmed Plan Of Treatment No Information Insurance Providers Payer Name Payer Address Payer Phone Subscriber Number Group Number Insured Name Patient Relationship to Insured Coverage Start Date Coverage End Date [employer] [place] Medicaid [address] [place] [address] [id number] LOYDA MITTAL Self - patient is the insured 3 Wrap [employer] [place] BCB[address] [place] [phone] [id number] MITTAL - patient is the [id number]/03/2022zAnthem [facility] Medicaid-termed 11/02/22[address] [place] [phone] Adryan MITTAL - patient is the [id number] CFC after [place] BCBS-termed 11/02/22[address] [place] [phone] [id number], KRISTINESelf - patient is the [id number]/02/2022 11/02/2022zDental [place] BC[place] Medicaid-termed 11/02/22 [address] [place] [id number], KRISTINESelf - patient is the insured zDental Medicaid CF after [place] BCBS-termed 11/02/[address] [place] [id number], KRISTINESelf - patient is the [id number] [place] DQ Terminated 10/02/24[address] [place] [id number], KRISTINESelf - patient is the bwjrhad32/01/2023Dental Wrap [facility] [place] BCBS Termed [address] [place] [id number] Adryan MITTAL - patient is the mlypuyl4211/03/2022 Medical (General) History Medical History History ICD Code Bipolar Disorder, Depressive type Anxiety, ChronicRheumatoid ArthritisFibromyalgiaChronic neck painLevel 3Surgical History Surgery Date(Month/Year) tonsillectomy [facility] exploratory laparoscopy 1994 cervical fusion 2004 2009 Hospitalization History Reason Date(Month/Year) BIPOLAR 4 TIMES 06,06,06,13
--- OUTSIDE RECORDS SUMMARY | 2025-09-01 11:46 | XMS_ITS | CCD ---
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 Name Role Phone VALJAMES BENJI A Unavailable Unavailable VITALIY BENJI A Unavailable Unavailable KELLI GUSMAN Unavailable Unavailable KELLI GUSMAN Unavailable Unavailable INDURTI, PREM V Admitting Unavailable REANNAI, PREM V Attending Unavailable JONI ESQUIVEL Referring Unavailable BRANDEN VAZQUEZ Primary Care Unavailable Branden Vazquez Primary Care Provider [phone] Imm Branden STORM Primary Care Provider JUAN LUIS WHITING Referring Unavailable BRANDEN VAZQUEZ Primary Care Unavailable NON STAFF Primary Care Provider UnavailMD Miah Elias Admit Provider [phone] MD Miah Abreu Attending Provider [phone] MD Serafin Rollins Admit Provider MD Serafin Rollins Attending Provider NON STAFF Primary Care Provider UnavailMD Serafin Zaldivar Admit Provider [phone] MD Serafin Rollins Attending Provider NO FAMILY, PHYSICIAN Primary Care Provider Unava ilable MD Miah Abreu Admit Provider [phone] MD Miah Abreu Attending Provider [phone] OTTO SIEGEL Attending Unavailable YAKOV, DR SALGUERO [...] Unavailable HAY, DR MARRUFO Attending Unavailable SAUL LYONS Consulting Unavailable MISC, DR SALGUERO Primary Care Unavailable TOPHER BROWN Consulting Unavailable CONOR, EDY Attending Unavailable CONOR, EDY Consulting Unavailable CONOR, EDY Admitting Unavailable [facility] Primary Care Unavailable KAYLA NYE Consulting Unavailable [...] Nicole RN Vaishali Other Provider Unavailable Dials, COAL WHEELER Alessandra M Other Provider [phone] DO Valentina Nice Other Provider [phone] MD Rush Ramsey Other Provider [phone] DO Santi Rudd Other Provider MD Zeus Bright Other Provider MD Ya Simms Other Provider Sherif ANP-BC Adele Other Provider MD Yessy Bustillos Other Provider MD Irwin Rivero Other Provider MD Jose Loaiza Other Provider MD Demario Spicer Other Provider DO Gelacio Callahan Other Provider MD Becca Bustos Other Provider MD Kamron Solis Other Provider STACEY BreauxC Gris Casillas Other Provider MD Abisai Madrid Other Provider MD Wolf Irwin Other Provider MD Hammad Zayas Other Provider MD Georgi Rodríugez Other Provider DO Debbie Greenwood Other Provider [...] Provider DO Monroe Zepeda Other Provider MD Enrico Alcazar II Other Provider DO Gwyn Wyatt Other Provider Enrico Alcazar II Unavailable NON STAFF Primary Care Provider UnavailMD Olvin Zaldivar Admit Provider MD Olvin Rollins Attending Provider [phone] GROVER Ko Other Provider Unavailable GROVER Bonner [...] Provider MD Kamron Solis Other Provider Saeid, IT TECHNICAL ARCHITECT-C Gris Casillas Other Provider [phone] MD Abisai Madrid Other Provider MD Wolf Irwin Other Provider MD Hammad Zayas Other Provider MD Georgi Rodríguez Other Provider DO Debbie Greenwood Other Provider DO Jordan Dumont Other Provider DO Jim Wells Other Provider [phone] TANNER Douglas Other Provider DO Eddie Jensen Other Provider MD Emanuel Esposito Other Provider TANNER Chan Other Provider [phone] TANNER Delgado Other Provider [phone] MD Danny Mancia Other Provider MD Sánchez Noble Other Provider DO Lexx Fox Other Provider [phone] TANNER Malagon Other Provider DO Maycol Lee Other Provider GROVER Galvan Other Provider Unavailable MD Miah Abreu Admit Provider MD Miah Abreu Attending Provider Lili Woo MD Primary Care Provider ARTHUR Bowser-Ulises Hernandez Primary Care Provider [phone] MD Olvin Rollins Admit Provider MD Olvin Rollins Attending Provider MICHELLE BOWSER Primary Care Unavailable DEB MORROW Attending Unavailable NON STAFF Primary Care Provider Unavailabl e MD Olvin Rollins Attending Provider NINA Bowser Primary Care Provider MD Olvin Rollins Admit Provider GROVER Ko Other Provider Unavailable GROVER Bonner Other Provider Unavailable GROVER Lazo Other Provider Unavailable GROVER Rivera Other Provider Unavailable GROVER Fernandez Other Provider Unavailable DO Valentina Nice Other Provider MD Rush [...] Other Provider MD Sánchez Noble Other Provider [phone] DO Lexx Fox Other Provider Jesus, DO Yazid Other Provider MD Hermes Zayas Other Provider MD Masoud Hoffman Other Provider [phone] TANNER Flanagan Other Provider MD Felipe Graff Other Provider MD Amador Sanchez Other Provider GROVER Galvan Other Provider Unavailable BOWSER, MICHELLE Referring Unavailable ALI, LILI Primary Care Unavailable BOWSER, MICHELLE Referring Unavailable BOWSER, MICHELLE Primary Care Unavailable BOWSER, MICHELLE Referring Unavailable BOWSER, MICHELLE Primary Care Unavailable Bowser COAL WHEELER-[employer] HOME, Michelle Primary Care Provider Gris Ferguson PA-C Attending Provider Bowser IT TECHNICAL ARCHITECT-C, Michelle K Primary Care Provider [phone] Olvin Rollins MD Admit Provider Olvin Rollins MD Attending Provider NON STAFF Primary Care Provider UnavailOlvin Zaldivar MD Attending Provider Bowser COAL WHEELER-C[employer]GIVER [employer] HOME, Michelle Primary Care Provider BOWSER, MICHELLE Attending [...] Referring Unavailable BOWSER, MICHELLE Primary Care Unavailable NON STAFF Primary Care Provider Unavailabl Olvin Schmidt MD Attending Provider Bowser IT TECHNICAL ARCHITECT-C, Michelle K Primary Care Provider Ayo STORM, Olvin Admit Provider Ayo STORM, Olvin Other Provider Lili Woo MD Primary Care Provider GORAN MOORE Attending Unavailable BADILLO, CAM Attending Unavailable BADILLO, CAM Attending Unavailable BADILLO, CAM Attending Unavailable Bowser, Michelle K Primary Care Unavailable Ayo, Olvin Admitting Unavailab le Ayo, Olvin Attending Unavailab le Esperance, Gris L Attending Unavailable Marty, Gris L Admitting Unavailable Ayo, Olvin Admitting Unavailab le NON STAFF Primary Care Unavailable Ayo, Olvin Attending Unavailab le Miah Abreu Attending Unavailable Bowser, Michelle K Primary Care Unavailable Ayo, Olvin Admitting Unavailab le Ayo, Olvin Attending Unavailab le Bowser, Michelle K Primary Care Unavailable Ayo, Olvin Admitting Unavailab le Allergies Allergy ClassificationReported Allergen(s)Allergy TypeDate of OnsetReaction(s) Facility (20 sources)diphenhydrAMINEDrug Uuqbsfu74-15-8073OwacpujwfmgxWhszc Health- [place], [place]:increased anxiety and agitation (12 sources)hydrOXYzineDrug Hynfhkg28-46-8453BepjbutyWowid Health- [place], [place] (2 sources)KetorolacDrug Azkkwzh36-74-4325Coxcewzdw Of [place]Bro[place], [place] (20 sources)metroNIDAZOLE; Translations: [METRONIDAZOLE]Drug Bdrpebu91-20-9979 Nausea And Vomiting, [place] (2 sources)MorphineDrug Kwvclrm00-28-8302Raxgu (See Comments)[place], [place] (20 sources)Sulfamethoxazole / Trimethoprim; Translations: [SULFAMETHOXAZOLE-TRIMETHOPRIM]Drug Smpdqdz49-14-5399Sgijyu And Vomiting, [place]izziness[place], [place] (20 sources)traMADol; Translations: [TRAMADOL]Drug Exyrcan25-14-3791Rbfko (See Comments)[place] (12 sources)TrimethoprimDrug Wnuajza20-24-1010IbrglombFqkyp Health- [place], [place] (20 sources)busPIRone; Translations: [BUSPIRONE]Drug Rhwefyl17-40-8283Vczbhdgk BehaviorAdena Health System (20 sources)Nalbuphine; Translations: [NALBUPHINE]Drug Abjgpvq46-58-5793QuvxuyzCleveland Clinic [facility] (11 sources)OLANZapine; Translations: [olanzapine]Drug Twvzvdr91-63-5741QpkeykkCleveland Clinic Marymount Hospital (11 sources)Sulfamethoxazole; Translations: [sulfamethoxazole]Drug Allergy 95-81-4627BkbuhgwxSqvjiyckrSelect [facility] [place] (1 source)busPIRoneDrug Mkuroir27-64-7439WrmNorwalk [facility] Repository (1 source)hydrOXYzineDrug AllergyNorwalk Memorial Hospital Repository (2 sources)metroNIDAZOLEDrug Scincwc62-55-4015PqkNorwalk Memorial Hospital Repository (2 sources)NalbuphineDrug AllergyMercy Memorial Hospital Repository (3 sources)Sulfamethoxazole / TrimethoprimDrug Ysemhqn50-33-4858ApbtjfiRkbMercy Memorial Hospital Repository (1 source)traMADolDrug Vqzztce52-62-2634AgoNorwalk Memorial Hospital Repository (1 source)traMADolDrug AllergyUnkSouth County Hospital [employer] Other (1 source)FlagilPropensity to adverse reactionsMemorial Hospital of [facility] [employer] Other (5 sources)diphenhydrAMINE; Translations: [DIPHENHYDRAMINE HCL]Drug Allergy 04-73-8212QiqAucccq Repository (13 sources)hydrOXYzine; Translations: [HYDROXYZINE HCL]Drug Zwvxzdj07-31-7892 Abnormal BehaviorProMedica Repository (1 source)vortioxetineDrug AllergyOHIP Practices Repository (1 source)diphenhydrAMINEDrug Bpkgmvw64-15-8341TnviujiyrAdena Health System Repository (1 source)hydrOXYzineDrug Hjolqia87-94-9164IlwvalqxuAdena Health System Repository (1 source)metroNIDAZOLEDrug Cyscdpe26-94-7379OmeiuboqgAdena Health System Repository (1 source)traMADolDrug Qtjxyjr74-44-6819Nhgwgfkkn [facility] Repository (1 source)TrimethoprimDrug Odxaqdp52-85-2080NembuqtzqAdena Health System Repository Medications Current Medications MedicationDrug Class(es)DatesSig (Normalized)Sig (Original)ALPRAZolam 1 mg oral tablet (20 sources)BenzodiazepineStart: 08-24-2023 End: 70-59-9335HTCJSGxkpr (XANAX) 1 mg tablet Take 1 tablet (1 mg total) by mouth. 11/16/2023 ActiveStart: 07-20-2021 End: 08-18-7365xzgh 1 tablet by mouth twice daily as needed for anxiety Alprazolam 1 mg tablet Discontinued 1 MG PO Twice daily as needed for Anxiety 14 7 March 23, 2022 11:51am April 13, 2023 10:24amStart: 03-09-2021 End: 00-19-9957qlux 0.5 mg by mouth twice daily as needed for anxietyAlprazolam (Xanax) 1 mg Tablet Discontinued 0.5 MG PO Twice daily as needed for Anxiety 0 March 11:19am July 20, 2021 9:59pmStart: 03-05-2021 End: 09-51-8020zpab 1 tablet by mouth twice daily as needed for anxiety Alprazolam (Xanax) 1 mg Tablet Discontinued 1 MG PO Twice daily as needed for Anxiety March 05, 2021 12:00am March 09, 2021 11:35amStart: 02-05-2020 End: 27-27-0399Qvfmjrgplc 1 mg tablet Discontinued 1 MG PO Twice daily February 05, 2020 12:00am February 08, 2020 11:22am1 in a.m., 1 in afternoonStart: 02-05-2020 End: 45-93-0219aonf 1 tablet by mouth once daily at bedtimeAlprazolam 2 mg tablet Discontinued 2 MG PO Daily at bedtime February 05, 2020 12:00am February 08, 2020 11:22amStart: 12-05-2019 End: 17-93-8129qbyu 1 tablet by mouth once daily as needed for anxietyAlprazolam 0.5 mg Tablet Discontinued 0.5 MG PO Daily as needed for Anxiety December 05, 2019 1:00am February 05, 2020 5:35pmStart: 12-05-2019 End: 71-52-4139acpt 2 tablets by mouth at bedtimeAlprazolam 0.5 mg Tablet Discontinued 1 MG PO Bedtime December 05, 2019 1:00am February 05, 2020 5:35pmStart: 12-05-2019 End: 70-59-4794ffjy 1 mg by mouth at bedtimeAlprazolam Discontinued 1 MG PO Bedtime December 05, 2019 1:00am February 05, 2020 5:35pmStart: 08-06-2019 End: 45-12-6327fshp 1 tablet by mouth twice dailyAlprazolam (Xanax) 1 mg Tablet Discontinued 1 MG PO Twice daily 0 August 10, 2019 11:01am December 05, 2019 3:07pm 0900,1400Start: 08-06-2019 End: 89-52-2173vdkl 1 tablet by mouth at bedtimeAlprazolam 2 mg tablet Discontinued 2 MG PO Bedtime 0 August 10, 2019 11:01am December 05, 2019 3:07pm Start: 07-05-2019 End: 68-93-7353kown 1 tablet by mouth three times daily as needed for anxiety ALPRAZolam (XANAX) 1 MG tablet Indications: Depression, recurrent (HCC) Take 1 tablet by mouth 3 times daily as needed for Anxiety for up to 30 days. 90 tablet 0 07/05/2019 08/04/2019 ActiveStart: 10-28-2018 End: 87-92-2882zxet 1 tablet by mouth twice daily as needed for anxiety Alprazolam (Xanax) 1 mg tablet Discontinued 1 MG PO Twice daily as needed for anxiety October 1:00am October 31, 2018 9:32amStart: 07-30-2018 End: 10-36-0796rzwg 1 tablet by mouth twice daily as needed for anxiety Alprazolam 1 mg tablet Discontinued 1 MG PO Twice daily as needed for Anxiety July 30, 2018 12:00am August 04, 2018 10:47amStart: 07-30-2018 End: 38-97-9733ocof 1 tablet by mouth once daily as needed for anxietyAlprazolam 0.5 mg tablet Discontinued 0.5 MG PO Daily as needed for Anxiety July 30, 2018 12:00am August 04, 2018 10:47amStart: 01-04-2018 End: 89-60-2780boop 1 tablet by mouth twice dailyAlprazolam 0.25 mg tablet Discontinued 0.25 MG PO Twice daily January 04, 2018 12:00am January 09, 2018 11:18amamitriptyline hydrochloride 10 mg oral tablet (1 source)Tricyclic Antidepressanttake 1 tablet by mouth every twenty-four hours Amitriptyline HCl 10 MG 1 tablet at bedtime Orally Once a day Vnuvpr27 hr desvenlafaxine succinate 25 mg extended release oral tablet (12 sources)Serotonin and Norepinephrine Reuptake InhibitorStart: 39-30-9967hcqx 1 tablet by mouth once dailyStart: 31-91-6336xuwi 1 tablet by mouth every twenty-four hours in the morningdesvenlafaxine (PRISTIQ) 25 mg 24 hr tablet Take 1 tablet (25 mg total) by mouth in the morning. 12/03/2024 ActiveStart: 12-03-2024 End: 76-94-6555dvfj 1 tablet by mouth once dailyDesvenlafaxine Succinate 25 mg Tablet Extended Release 24 Hr Discontinued 25 MG PO Daily 2024 6:34am June 12, 2025 3:12pmdoxepin hydrochloride 25 mg oral capsule (20 sources)Tricyclic AntidepressantStart: 02-82-8326nubo 1 capsule by mouth once daily at bedtimeStart: 07-26-2024 End: 99-35-7758isbg 1 capsule by mouth once dailydoxepin (SINEquan) 25 mg capsule Take 1 capsule (25 mg total) by mouth nightly. 30 capsule 2 07/26/2024 12/18/2024 DiscontinuedStart: 75-35-6658waom 10 mg by mouth once daily at bedtimeDoxepin Active 10 MG PO Daily at bedtime July 17, 2024 12:00am Start: 08-24-2023 End: 61-11-7336qyjd 1 capsule by mouth at bedtimeDoxepin 100 mg capsule Discontinued 100 MG PO Bedtime January 20, 2024 11:25am July 15, 2024 2:07amStart: 04-13-2023 End: 40-67-3272lzrp 1 capsule by mouth at bedtimeDoxepin 25 mg capsule Discontinued 25 MG PO Bedtime April 13, 2023 12:00am April 17, 2023 12:19pm Start: 06-12-2022 End: 18-16-1009fftz 1 capsule by mouth once daily at bedtimeDoxepin 100 mg Capsule Discontinued 100 MG PO Daily at bedtime June 12, 2022 12:00am August 29, 2022 5:48pmStart: 06-12-2022 End: 55-72-7620ypyv 1 capsule by mouth twice daily as neededDoxepin 25 mg Capsule Discontinued 25 MG PO Twice daily as needed for Agitation 60 June 12, 2022 12:00am August 29, 2022 5:48pmStart: 02-22-2022 End: 93-89-8780sngx 1 capsule by mouth once daily as neededDoxepin 25 mg Capsule Discontinued 25 MG PO Daily as needed for Agitation 7 March 23, 2022 11:51am June 12, 2022 12:52pmestradiol 0.5 mg oral tablet (1 source)EstrogenStart: 67-39-5392fnya 0.5 mg by mouth once dailyEstradiol Active 0.5 MG PO Daily July 14, 2024 12:00amlevothyroxine sodium 0.075 mg oral tablet (20 sources)l-ThyroxineStart: 08-29-2022 End: 13-59-3534eomy 1 tablet by mouth in the morninglevothyroxine (SYNTHROID, LEVOTHROID) 75 MCG tablet Indications: Hypothyroidism, unspecified type Take 1 tablet (75 mcg total) by mouth in the morning. 90 tablet 1 02/20/2025 Active Start: 09-14-2017 End: 46-10-0526chyy 1 tablet by mouth once dailyLevothyroxine (Synthroid) 50 mcg Tablet Discontinued 50 MCG PO DAILY@0630 7 March 23, 2022 11:51am August 29, 2022 5:09pmtake 1 tablet by mouth once daily in the morningSynthroid 50 MCG 1 tablet on an empty stomach in the morning Orally Once a day Active lisdexamfetamine dimesylate 30 mg oral capsule (20 sources)Central Nervous System StimulantStart: 71-89-4749zhpd 1 capsule by mouth once dailyLisdexamfetamine (Vyvanse) 30 mg capsule Active 30 MG PO Daily June 12, 2025 12:00am Complies with drug therapyStart: 11-30-2024 End: 57-98-5259oere 1 capsule by mouth once dailyLisdexamfetamine (Vyvanse) 30 mg capsule Discontinued 30 MG PO Daily November 30, 2024 1:00am March 24, 2025 7:45amStart: 10-13-2023 End: 85-67-5777gsqz 1 capsule by mouth once dailyLisdexamfetamine (Vyvanse) 30 mg capsule Discontinued 30 MG PO Daily 04 08October 13, 20232023 11:11amStart: 04-13-2023 End: 03-88-0236xjvk 1 capsule by mouth once dailyLisdexamfetamine (Vyvanse) 30 mg capsule Discontinued 30 MG PO Daily April 13, 2023 12:00am October 11, 2023 12:26pmLORazepam 1 mg oral tablet (12 sources)BenzodiazepineStart: 92-28-2245yavv 1 tablet by mouth three times dailyLorazepam 1 mg tablet Active 1 MG PO Three times daily June 12, 2025 12:00am Complies with drug therapyStart: 06-12-2025 End: 66-16-7658fksx 1 tablet by mouth three times dailyLorazepam 0.5 mg tablet Discontinued 0.5 MG PO Three times daily June 12, 2025 12:00am June 12, 2025 2:04pmStart: 01-09-2018 End: 00-49-8318qhgc 1 tablet by mouth twice daily as needed for anxietyLorazepam 0.5 mg Tablet Discontinued 0.5 MG PO Twice daily as needed for Anxiety January 09, 201812:00am July 30, 2018 9:13amondansetron 4 mg disintegrating oral tablet (17 sources)Serotonin-3 Receptor AntagonistStart: 37-93-9578ffbs 1 tablet by mouth every twelve hours as needed for nausea and vomitingStart: 12-03-2024 End: 40-17-3576icwb 1 tablet by mouth every six hours as needed for nausea and vomitingOndansetron 4 mg Tablet,Disintegrating Discontinued 4 MG PO Every 6 hours as needed for Nausea And Vomiting December 03, 2024 1:00am June 16, 2025 7:42amStart: 07-26-2024 End: 98-40-1036oczs 1 tablet by mouth every eight hours as needed for nausea and nausea and nauseaondansetron ODT (ZOFRAN ODT) 4 mg disintegrating tablet Indications: Nausea Dissolve 1 tablet (4 mgtotal) on tongue every 8 (eight) hours as needed for nausea. 30 tablet 2 07/12/2025 ActiveStart: 08-50-5598ggvw 4 mg by mouth every four hoursOndansetron Active 4 MG PO Every 4 hours 60 July 17, 2024 12:00ampromethazine hydrochloride 12.5 mg oral tablet (11 sources)PhenothiazineStart: 04-66-9322rrje 1 tablet by mouth every six hours as needed for nausea and vomitingpromethazine (PHENERGAN) 12.5 mg tablet Take 1 tablet (12.5 mg total) by mouth every 6 (six) hours as needed for nausea or vomiting. 12 tablet 07/26/2024 ActiveStart: 26-06-4446dlii 12.5 mg by mouth every eight hoursPromethazine Active 12.5 MG PO Every 8 hours 60 July 17, 2024 12:00amzolpidem tartrate 5 mg oral tablet (20 sources)gamma-Aminobutyric Acid-ergic AgonistStart: 83-51-6523hckm 1 tablet by mouth once daily as needed for sleepzolpidem (AMBIEN) 5 mg tablet Indications: Insomnia, unspecified type Take 1 tablet (5 mg total) bymouth nightly as needed for sleep. 30 tablet 2 05/30/2024 ActiveStart: 08-29-2022 End: 63-06-5723snkl 1 tablet by mouth at bedtime as neededZolpidem (Ambien) 5 mg tablet Discontinued 5 MG PO Bedtime as needed for Insomnia August 29, 2022 1:00am April 13, 2023 10:25amStart: 06-06-2022 End: 83-63-3585gwha 1 tablet by mouth at bedtimeZolpidem 5 mg tablet Discontinued 5 MG PO Bedtime June 06, 2022 12:00am June 12, 2022 1 2:52pmStart: 08-04-2018 End: 02-55-9081gild 1 tablet by mouth once daily at bedtimeZolpidem 10 mg Tablet Discontinued 10 MG PO Daily at bedtime 14 August 04, 2018 12:00am October 28, 2018 10:40am Completed/Discontinued Medications MedicationDrug Class(es)DatesSig (Normalized)Sig (Original)amLODIPine 2.5 mg oral tablet (17 sources)Dihydropyridine Calcium Channel BlockerStart: 04-13-2023 End: 58-99-3846lguw 1 tablet by mouth once dailyAmlodipine (Norvasc) 2.5 mg tablet Discontinued 2.5 MG PO Daily October 11, 2023 12:26pm January 18, 2024 4:16amARIPiprazole 5 mg oral tablet (10 sources)Atypical AntipsychoticStart: 08-04-2018 End: 76-17-9488vgnj 1 tablet by mouth once dailyAripiprazole 5 mg Tablet Discontinued 5 MG PO Daily August 04, 2018 12:00am October 28, 2018 10:40amatorvastatin 40 mg oral tablet (9 sources)HMG-CoA Reductase InhibitorStart: 08-29-2022 End: 30-69-0453aqhh 1 tablet by mouth at bedtimeAtorvastatin (Lipitor) 40 mg tablet Discontinued 40 MG PO Bedtime August 29, 2022 1:00am October 10, 2023 11:49ambrexpiprazole 0.5 mg oral tablet (1 source)Atypical AntipsychoticStart: 03-24-2025 End: 30-14-4069pqjz 1 tablet by mouth once dailyBrexpiprazole (Rexulti) 0.5 mg Tablet Discontinued 0.25 MG PO Daily 05 17March 24, 2025 12:00am June 12, 2025 3:12pm24 hr buPROPion hydrochloride 300 mg extended release oral tablet (20 sources)AminoketoneStart: 11-30-2024 End: 83-28-3012jfcx 1 tablet by mouth once dailyBupropion Hcl 300 mg tablet extended release 24 hr Discontinued 300 MG PO Daily November 3051:00am December 03, 2024 11:51amStart: 01-20-2024 End: 96-99-5797yren 1 tablet by mouth once dailyBupropion Hcl 150 mg Tablet Extended Release 24 Hr Discontinued 150 MG PO Daily January 20, 2024 12:00am July 15, 2024 2:47amStart: 04-17-2023 End: 52-79-9243Jucwxmhyy Hcl 150 mg Tablet Extended Release 24 Hr Discontinued 150 MG PO Daily April 17, 2023 12:00am August 24, 2023 1:19am Take with 300 mg tablet for total of 450Start: 04-13-2023 End: 35-24-9571zshg 1 tablet by mouth once dailyBupropion Hcl 300 mg tablet extended release 24 hr Discontinued 300 MG PO Daily April 23, 2023 12:00am October 11, 2023 12:26pmStart: 06-12-2022 End: 21-97-4607crna 1 tablet by mouth twice dailyBupropion Hcl (Wellbutrin Sr) 200 mg tablet sustained-release 12 hr Discontinued 200 MG PO Twice daily September 01, 2022 10:59am April 13, 2023 10:08amStart: 03-23-2022 End: 12-54-5919mqse 1 tablet by mouth twice dailyBupropion Hcl 150 mg Tablet Sustained-Release 12 Hr Discontinued 150 MG PO Twice daily 15 04March 23, 2022 12:00am June 12, 2022 12:52pmStart: 02-18-2022 End: 26-44-6459azub 1 tablet by mouth twice daily in the morningBupropion Hcl 100 mg tablet sustained-release 12 hr Discontinued 150 MG PO Twice daily February 18, 2022 4:18pm March 23, 2022 11:53am Take in the morning and the afternoon Start: 11-09-2021 End: 31-91-8658jtvq 1 tablet by mouth twice daily in the morningBupropion Hcl 100 mg Tablet Sustained-Release 12 Hr Discontinued 100 MG PO Twice daily 60 November 09, 2021 1:00am February 18, 2022 4:18pm Take in the morning and the afternoonStart: 01-04-2018 End: 98-93-7095Ddpulkjmc Hcl 300 mg tablet extended release 24 hr Discontinued January 04, 2018 12:00am January 04, 2018 9:37amStart: 09-14-2017 End: 38-36-9326lsqg 1 tablet by mouth once daily in the morningBupropion Hcl 300 mg Tablet Extended Release 24 Hr Discontinued 300 MG PO Every morning January 09, 2018 12:00am July 30, 2018 9:12amcariprazine 3 mg oral capsule (8 sources)Atypical AntipsychoticStart: 04-13-2023 End: 96-71-6797tkvr 1 capsule by mouth once dailyCariprazine (Vraylar) 3 mg capsule Discontinued 3 MG PO Daily April 13, 2023 12:00am April 17, 2023 12:19pmchlordiazePOXIDE hydrochloride 10 mg oral capsule (11 sources)BenzodiazepineStart: 01-04-2018 End: 48-50-7150qlgg 1 capsule by mouth once daily in the eveningChlordiazepoxide Hcl 10 mg capsule Discontinued 10 MG PO Every evening January 04, 2018 12:00am January 09, 2018 11:18amLibrium 10 MG 1 capsule Orally AT NIGHT Not-Taking cholecalciferol 0.025 mg oral tablet (10 sources)Vitamin DStart: 11-30-2019 End: 75-14-5798qulc 1 tablet by mouth once dailyCholecalciferol (Vitamin D3) 25 mcg (1,000 unit) Tablet Discontinued 2000 UNIT PO Daily 60 November 30, 2019 1:00am February 05, 2020 5:35pmclonazePAM 1 mg oral tablet (18 sources)BenzodiazepineStart: 04-13-2023 End: 37-55-9418gzcc 1 tablet by mouth three times dailyClonazepam (Klonopin) 1 mg tablet Discontinued 1 MG PO Three times daily April 13, 2023 12:00am [facility] 1:19amStart: 08-29-2022 End: 97-96-8276dggb 1 tablet by mouth twice daily as needed for anxiety Clonazepam (Klonopin) 1 mg tablet Discontinued 1 MG PO Twice daily as needed for Anxiety August 29, 2022 1:00am August 29, 2022 5:48pmtake 1 tablet by mouth every twenty-four hoursKlonoPIN 0.5 MG 1 tablet Orally Once a day Active diclofenac sodium 0.01 mg/mg topical gel (10 sources)Nonsteroidal Anti-inflammatory DrugStart: 11-30-2019 End: 06-98-0748ftsoh 2 g topically four times daily as needed for painDiclofenac Sodium 1 % Gel Discontinued 2 GM TOPICAL Four times daily as needed for Pain November 30, 2019 1:00am February 05, 2020 5:35pmStart: 11-30-2019 End: 18-37-2248jramw 2 g topically four times daily as needed for painDiclofenac Sodium 1 % Gel Discontinued 2 GM TOPICAL Four times daily as needed for Pain November 30, 2019 12:00am February 05, 2020 4:35pmStart: 11-30-2019 End: 15-94-6728hcvlx 2 g topically four times dailyDiclofenac Sodium Discontinued 2 GM TOPICAL Four times daily November 30, 2019 12:00am January 4:35pmStart: 11-30-2019 End: 85-00-4882neduk 2 g topically four times dailyDiclofenac Sodium Discontinued 2 GM TOPICAL Four times daily November 30, 2019 1:00am February 05, 2020 5:35pmdocusate sodium 100 mg oral capsule (20 sources)Start: 09-01-2022 End: 14-67-2899ubmo 1 capsule by mouth twice daily as needed for constipation Docusate Sodium 100 mg Capsule Discontinued 100 MG PO Twice daily as needed for Constipation 30 September 01, 2022 1:00am October 10, 2023 11:49amStart: 86-58-2375rxid 1 capsule by mouth once dailydocusate (COLACE, DULCOLAX) 100 MG CAPS Take 100 mg by mouth nightly 30 capsule 0 07/05/2019 ActiveStart: 01-09-2018 End: 24-65-5202jgyp 1 capsule by mouth twice daily as needed for constipation Docusate Sodium 100 mg capsule Discontinued 100 MG PO Twice daily as needed for Constipation July 30, 2018 9:12am October 31, 2018 9:32amdoxycycline hyclate 100 mg oral tablet (15 sources)Tetracycline-class DrugStart: 08-24-2023 End: 78-24-2614Cjoucigevbl Hyclate 100 mg tablet Discontinued 75 MG PO Twice daily August 24, 2023 1:17am August 24, 2023 1:23amStart: 08-24-2023 End: 27-08-2644prlz 75 mg by mouth twice dailyDoxycycline Hyclate Discontinued 75 MG PO Twice daily August 24, 2023 1:17am August 24, 2023 1:23amStart: 05-01-2023 End: 07-30-3340qazl 1 tablet by mouth twice dailyDoxycycline Hyclate 100 mg Tablet Discontinued 100 MG PO Twice daily 8 May 01, 2023 12:00am August 24, 2023 1:17amDULoxetine 30 mg delayed release oral capsule (20 sources)Serotonin and Norepinephrine Reuptake InhibitorStart: 07-24-2021 End: 98-78-2769wcyb 3 capsules by mouth once dailyDuloxetine 30 mg Capsule,Delayed Release(Dr/Ec) Discontinued 90 MG PO Daily 22 04March 23, 2022 11:51am June 12, 2022 12:52pmStart: 07-24-2021 End: 21-52-6477jtcd 90 mg by mouth once dailyDuloxetine Discontinued 90 MG PO Daily 22 04March 23, 2022 11:51am June 12, 2022 12:52pmStart: 11-27-2019 End: 73-09-4295kzkd 1 capsule by mouth once dailyDuloxetine 60 mg Capsule,Delayed Release(Dr/Ec) Discontinued 60 MG PO Daily July 24, 2021 9:18am November 02, 2021 8:48pmStart: 08-10-2019 End: 08-43-8809wzgb 3 capsules by mouth once dailyDuloxetine 30 mg Capsule,Delayed Release(Dr/Ec) Discontinued 90 MG PO Daily August 10, 2019 1:00am November 27, 2019 5:33pmStart: 08-10-2019 End: 51-86-0065hoyc 90 mg by mouth once dailyDuloxetine Discontinued 90 MG PO Daily 90 August 10, 2019 1:00am November 27, 2019 5:33pmStart: 08-06-2019 End: 58-20-9377kqfk 1 capsule by mouth once dailyDuloxetine 60 mg capsule,delayed release(DR/EC) Discontinued 60 MG PO Daily August 06, 2019 1:00am August 10, 2019 11:01amStart: 07-06-2019 End: 34-00-3218uqat 1 capsule by mouth once dailyDuloxetine 30 mg Capsule,Delayed Release(Dr/Ec) Discontinued 30 MG PO DAILY@1700 30 November 09, 2021 1:00am February 18, 2022 4:18pmEsketamine (1 source)Start: 06-12-2025 End: 55-99-9280Gabzlttehz (Spravato) 56 mg (28 mg x 2) spray,non-aerosol Discontinued MG INTRANASAL June 12, 2025 12:00am June 12, 2025 3:12pmfamotidine 20 mg oral tablet (4 sources)Histamine-2 Receptor AntagonistStart: 07-17-2024 End: 81-04-4383sytu 1 tablet by mouth once daily as neededfamotidine (PEPCID) 20 mg tablet Take 1 tablet (20 mg total) by mouth nightly as needed. 07/17/2024 12/18/2024 Discontinuedferrous sulfate 325 mg oral tablet (6 sources)Start: 03-20-2025 End: 07-52-0829Igiymlb Sulfate (Ferosul) 325 mg (65 mg iron) tablet Discontinued MG March 20, 2025 12:00am March 24, 2025 7:44amStart: 60-28-0067yurc 1 tablet by mouth in the morningferrous sulfate 325 (65 FE) MG tablet Indications: Hx of iron deficiency anemia Take 1 tablet (325 mg total) by mouth in the morning. 30 tablet 3 02/20/2025 ActiveFLUoxetine 40 mg oral capsule (10 sources)Serotonin Reuptake InhibitorStart: 07-30-2018 End: 29-48-1816Biafuiidmn 40 mg capsule Discontinued 60 MG PO Daily July 30, 2018 12:00am October 31, 2018 9:32amStart: 07-30-2018 End: 17-98-8280bavs 60 mg by mouth once dailyFluoxetine Discontinued 60 MG PO Daily July 30, 2018 12:00am October 31, 2018 9:32amgabapentin 300 mg oral capsule (20 sources)Anti-epileptic AgentStart: 04-13-2023 End: 03-80-0073icgk 1 capsule by mouth twice dailyGabapentin (Neurontin) 300 mg capsule Discontinued 300 MG PO Twice daily April 13, 2023 12:00am August 24, 2023 1:19amStart: 08-29-2022 End: 28-42-1953quxh 1 capsule by mouth three times dailyGabapentin (Neurontin) 400 mg capsule Discontinued 400 MG PO Three times daily August 10:59am April 13, 2023 10:08amStart: 06-06-2022 End: 11-83-9916Yzbcjutngp 800 mg tablet Discontinued 400 MG PO Three times daily June 06, 2022 7:51pm August 29, 2022 5:50pmStart: 06-06-2022 End: 18-46-1702qhwq 400 mg by mouth three times dailyGabapentin Discontinued 400 MG PO Three times daily June 06, 2022 7:51pm August 29, 2022 5:50pm Start: 07-20-2021 End: 51-45-8329tdre 1 tablet by mouth three times dailyGabapentin 800 mg tablet Discontinued 800 MG PO Three times daily 22 04March 23, 2022 11:51am June 06, 2022 7:52pmStart: 02-08-2020 End: 77-60-1265ajqk 1 capsule by mouth three times dailyGabapentin 400 mg Capsule Discontinued 400 MG PO Three times daily February 08, 2020 12:00am July 20, 2021 10:00pmStart: 02-05-2020 End: 38-32-1027tzuk 1 capsule by mouth three times dailyGabapentin 300 mg capsule Discontinued 300 MG PO Three times daily February 05, 2020 12:00am February 08, 2020 11:22amStart: 11-30-2019 End: 25-35-8067xiqk 1 capsule by mouth three times dailyGabapentin 400 mg Capsule Discontinued 400 MG PO Three times daily November 30, 2019 1:00amMa2019 5:36pmStart: 11-27-2019 End: 21-89-7716dwib 1 capsule by mouth twice dailyGabapentin 300 mg capsule Discontinued 300 MG PO Twice daily November 27, 2019 1:00am November 30, 2019 12:08pmStart: 09-14-2017 End: 02-50-1445hcgu 1 capsule by mouth three times dailygabapentin (NEURONTIN) 400 MG capsule Take 1 capsule by mouth 3 times daily 90 capsule 0 09/14/2017 07/02/2019 Discontinuedtake 1 capsule by mouth every twenty-four hoursGabapentin 100 MG 1 capsule Orally Once a day Activehaloperidol 2 mg oral tablet (10 sources)Typical AntipsychoticStart: 03-09-2021 End: 83-23-1206avoo 1 tablet by mouth once daily at bedtimeHaloperidol 2 mg Tablet Discontinued 2 MG PO Daily at bedtime 14 March 09, 2021 12:00am July 20, 2021 10:07pmhydrOXYzine hydrochloride 25 mg oral tablet (1 source)AntihistamineStart: 09-14-2017 End: 98-77-7220pnqa 1 tablet by mouth twice daily as needed for anxiety hydrOXYzine (ATARAX) 25 MG tablet Take 1 tablet by mouth 2 times daily as needed for Anxiety 60 tablet 0 09/14/2017 07/02/2019 DiscontinuedlamoTRIgine 200 mg oral tablet (10 sources)Mood Stabilizer, Anti-epileptic AgentStart: 07-30-2018 End: 50-56-2735wkif 1 tablet by mouth once dailyLamotrigine 200 mg tablet Discontinued 200 MG PO Daily July 30, 2018 12:00am August 04, 2018 10:48amlidocaine 0.04 mg/mg medicated patch (10 sources)Antiarrhythmic, Amide Local AnestheticStart: 03-23-2022 End: 53-67-3582swfmy 1 dose topically once dailyLidocaine (Lidocaine Pain Relief) 4 % Adhesive Patch,Medicated Discontinued 1 PATCH TOPICAL Daily 2021 12:00am June 06, 2022 7:56pmloratadine 10 mg oral tablet (10 sources)Start: 10-31-2018 End: 79-30-3136yxfi 1 tablet by mouth once daily in the morningLoratadine 10 mg Tablet Discontinued 10 MG PO Every morning October 31, 2018 1:00am August 06, 2019 9:07pmlurasidone hydrochloride 60 mg oral tablet (11 sources)Atypical AntipsychoticStart: 10-31-2018 End: 01-87-3200qpim 1 tablet by mouth once dailyLurasidone 60 mg tablet Discontinued 60 MG PO Daily with supper October 31, 2018 1:00am August 06, 2019 9:07pmmirtazapine 45 mg oral tablet (20 sources)Start: 04-17-2023 End: 53-83-7294crea 1 tablet by mouth once daily at bedtimeMirtazapine 45 mg tablet Discontinued 45 MG PO Daily at bedtime April 17, 2023 12:00am 2022 1:19amStart: 08-29-2022 End: 01-37-3702kgmc 1 tablet by mouth at bedtimeMirtazapine (Remeron) 30 mg tablet Discontinued 30 MG PO Bedtime September 01, 2022 10:59am April 17, 2023 12:19pmtake 1 tablet by mouth every twenty-four hoursRemeron 15 MG 1 tablet at bedtime Orally Once a day Activemupirocin 0.02 mg/mg topical ointment (8 sources)RNA Synthetase Inhibitor AntibacterialStart: 05-01-2023 End: 15-83-2508Qmbfiznxl 2 % Ointment Discontinued 1 APPLIC TOPICAL Twice daily May 01, 2023 12:00am August 24, 2023 1:19am with dressing changes left wristnaproxen 500 mg oral tablet (7 sources)Nonsteroidal Anti-inflammatory DrugStart: 08-26-2023 End: 77-21-9309fnfy 1 tablet by mouth twice daily at mealtime as needed for pain Naproxen 500 mg Tablet Discontinued 500 MG PO Twice daily with meals as needed for rheumatoid pain 56 August 26, 2023 1:00am October 10, 2023 11:49am nicotine 2 mg chewing gum (20 sources)Cholinergic Nicotinic AgonistStart: 12-03-2024 End: 02-25-6868Vijidorj (Polacrilex) 2 mg Gum Discontinued 2 MG BUCCAL Q2H as needed for Nicotine Cravings December 03, 2024 1:00am March 20, 2025 5:34pm Start: 77-46-1583Hveozdkq Active 21 MG TRANSDERML Daily July 17, 2024 12:00amStart: 06-12-2022 End: 51-42-1008zvqdm 1 dose transdermal route every twenty-four hoursNicotine 21 mg/24 hr Patch 24 Hour Discontinued 1 EACH TRANSDERML Daily June 12, 2022 12:00am August 29, 2022 5:15pmStart: 06-12-2022 End: 72-82-1589Rimrvvhc Discontinued 1 EACH TRANSDERML Daily June 12, 2022 12:00am August 29, 2022 5:15pmStart: 03-23-2022 End: 92-00-6862wcloi 1 dose transdermal route every twenty-four hoursNicotine 21 mg/24 hr Patch 24 Hour Discontinued 1 EACH TRANSDERML Daily March 23, 2022 12:00am June 06, 2022 7:50pmStart: 03-23-2022 End: 97-37-0374Svdrmgkh Discontinued 1 EACH TRANSDERML Daily March 23, 2022 12:00am June 06, 2022 7:50pmStart: 11-09-2021 End: 49-93-4665usxvt 1 dose transdermal route every twenty-four hoursNicotine 21 mg/24 hr Patch 24 Hour Discontinued 1 EACH TRANSDERML Daily November 09, 2021 1:00am February 18, 2022 4:17pmStart: 11-09-2021 End: 44-63-3958Ckprrojy Discontinued 1 EACH TRANSDERML Daily November 09, 2021 1:00am February 18, 2022 4:17pmStart: 07-24-2021 End: 47-41-4581fuvje 1 dose transdermal route every twenty-four hoursNicotine 21 mg/24 hr Patch 24 Hour Discontinued 1 EACH TRANSDERML Daily July 24, 2021 12:00am November 02, 2021 8:49pmStart: 07-24-2021 End: 45-54-2036Xcwrbscp Discontinued 1 EACH TRANSDERML Daily July 24, 2021 12:00am November 02, 2021 8:49pmStart: 11-30-2019 End: 83-90-6333pyxnr 1 dose transdermal route every twenty-four hoursNicotine 14 mg/24 hr Patch 24 Hour Discontinued 1 EACH TRANSDERML Daily December 05, 2019 1:00am February 05, 2020 5:36pmStart: 11-30-2019 End: 02-56-2146Pwushwhx Discontinued 1 EACH TRANSDERML Daily December 05, 2019 1:00am February 05, 2020 5:36pmStart: 08-10-2019 End: 64-66-0807fnhpx 1 dose transdermal route every twenty-four hoursNicotine 21 mg/24 hr Patch 24 Hour Discontinued 1 EACH TRANSDERML Daily August 10, 2019 1:00am November 27, 2019 5:35pmStart: 08-10-2019 End: 93-49-8920Porhimor Discontinued 1 EACH TRANSDERML Daily August 10, 2019 1:00am November 27, 2019 5:35pmStart: 10-31-2018 End: 28-96-9662Gvbhnsnk 7 mg/24 hr Patch 24 Hour Discontinued 1 EACH TRANSDERML Daily October 31, 2018 1:[address] [facility] 2018 9:07pmStart: 10-31-2018 End: 02-45-6202Fwgthquz Discontinued 1 EACH TRANSDERML Daily October 31, 2018 1:00am August 06, 2019 9:07pmStart: 01-09-2018 End: 99-24-3941Mhprsbgc 7 mg/24 hr Patch 24 Hour Discontinued 1 EACH TRANSDERML Daily January 09, 2018 12:00am July 30, 2018 9:10amStart: 01-09-2018 End: 87-88-5436Wkudbhsc Discontinued 1 EACH TRANSDERML Daily January 09, 2018 12:00am July 30, 2018 9:10amnortriptyline 50 mg oral capsule (17 sources)Tricyclic AntidepressantStart: 05-01-2023 End: 65-97-1932xvxg 1 capsule by mouth once daily at bedtimeNortriptyline 50 mg capsule Discontinued 100 MG PO Daily at bedtime 60 May 01, 2023 12:00am No vember 2022 1:19amStart: 05-01-2023 End: 47-80-5726otby 100 mg by mouth once daily at bedtimeNortriptyline Discontinued 100 MG PO Daily at bedtime 60 May 01, 2023 12:00am August 24, 2023 1:19amStart: 04-17-2023 End: 35-56-3423octg 1 capsule by mouth once daily at bedtimeNortriptyline 25 mg Capsule Discontinued 25 MG PO Daily at bedtime 30 April 17, 2023 12:00am Apr 12:14pmtake 1 capsule by mouth every twenty-four hoursNortriptyline HCl 10 MG 1 capsule Orally Once a day ActiveOLANZapine 5 mg oral tablet (11 sources)Atypical AntipsychoticStart: 10-31-2018 End: 37-31-6318vwht 1 tablet by mouth every six hours as neededOlanzapine 5 mg Tablet Discontinued 5 MG PO Q6H as needed for Agitation October 31, 2018 1:00amNoveer 2018 9:08pmStart: 09-14-2017 End: 08-65-7915qbbe 1 tablet by mouth once dailyOLANZapine (ZYPREXA) 15 MG tablet Take 1 tablet by mouth nightly 30 tablet 0 09/14/2017 07/02/2019 D hr paliperidone 3 mg extended release oral tablet (10 sources)Atypical AntipsychoticStart: 08-10-2019 End: 21-92-9199zmkd 1 tablet by mouth once daily at bedtimePaliperidone 3 mg Tablet Extended Release 24hr Discontinued 3 MG PO Daily at bedtime August 10, 2019 1:00am November 27, 2019 5:44pmpantoprazole 40 mg delayed release oral tablet (4 sources)Proton Pump InhibitorStart: 07-26-2024 End: 63-66-3138ldfy 1 tablet by mouth in the morning, then take 1 tablet by mouth at bedtimepantoprazole (PROTONIX) 40 mg EC tablet Take 1 tablet (40 mg total) by mouth in the morning and 1 tablet (40 mg total) before bedtime. 60 tablet 1 07/26/2024 12/18/2024 DiscontinuedStart: 63-52-5635qtnc 40 mg by mouth twice dailyPantoprazole Active 40 MG PO Twice daily 120 60 July 15, 2024 12:00amprazosin 1 mg oral capsule (14 sources)alpha-Adrenergic BlockerStart: 07-24-2021 End: 74-98-6900raqn 3 mg by mouth once daily at bedtimePrazosin Discontinued 3 MG PO Daily at bedtime July 24, 2021 12:00am November 02, 2021 8:49pm Start: 73-37-5074wgmo 1 capsule by mouth once dailyprazosin (MINIPRESS) 2 MG capsule Take 1 capsule by mouth nightly 30 capsule 0 07/05/2019 ActiveStart: 07-05-2019 End: 16-47-5324nnvw 1 capsule by mouth once daily at bedtimePrazosin 1 mg Capsule Discontinued 3 MG PO Daily at bedtime July 24, 2021 12:00am November 02, 2021 8:49pmpropranolol hydrochloride 20 mg oral tablet (18 sources)beta-Adrenergic BlockerStart: 08-29-2022 End: 96-92-2500trvk 1 tablet by mouth twice dailyPropranolol 20 mg tablet Discontinued 20 MG PO Twice daily 15 September 01, 2022 10:59am April 13, 2023 10:24amQUEtiapine 100 mg oral tablet (20 sources)Atypical AntipsychoticStart: 08-24-2023 End: 56-86-5550ymaf 1 tablet by mouth at bedtimeQuetiapine 100 mg tablet Discontinued 100 MG PO Bedtime August 24, 2023 1:00am October 10, 2023 11:49amStart: 04-17-2023 End: 14-03-5351qbdt 1 tablet by mouth three times daily as needed for anxiety Quetiapine 25 mg Tablet Discontinued 25 MG PO Three times daily as needed for Anxiety 60 April 12:00am August 24, 2023 1:19amStart: 07-05-2019 take 2 tablets by mouth once dailyQUEtiapine (SEROQUEL XR) 50 MG extended release tablet Take 2 tablets by mouth nightly 60 tablet 0 07/05/2019 Active Start: 10-28-2018 End: 23-18-3978bbwm 1 tablet by mouth at bedtimeQuetiapine (Seroquel) 400 mg tablet Discontinued 400 MG PO Bedtime October 28, 2018 1:00am October 31, 2018 9:32amStart: 07-30-2018 End: 34-87-6643tqor 1 tablet by mouth at bedtimeQuetiapine 400 mg tablet Discontinued 400 MG PO Bedtime July 30, 2018 12:00am August 04, 2018 10:49amStart: 01-09-2018 End: 18-20-8833chxn 4 tablets by mouth once daily at bedtimeQuetiapine 50 mg Tablet Discontinued 200 MG PO Daily at bedtime January 09, 2018 12:00am July 30, 2018 9:10amStart: 01-09-2018 End: 53-13-1040jqya 200 mg by mouth once daily at bedtimeQuetiapine Discontinued 200 MG PO Daily at bedtime January 09, 2018 12:00am July 30, 2018 9:10am Sennosides (Senna Lax) 8.6 mg Tablet (8 sources)Start: 09-01-2022 End: 70-36-0400xwpe 1 tablet by mouth twice daily as needed for constipation Sennosides (Senna Lax) 8.6 mg Tablet Discontinued 1 TAB PO Twice daily as needed for Constipation September 01, 2022 12:00am April 13, 2023 9:25amStart: 09-01-2022 End: 02-16-3909unci 1 tablet by mouth twice dailySennosides (Senna Lax) 8.6 mg Tablet Discontinued 1 TAB PO Twice daily September 01, 2022 12:00am April 13, 2023 9:25amStart: 09-01-2022 End: 82-59-2111kkvj 1 tablet by mouth twice dailySennosides (Senna Lax) 8.6 mg Tablet Discontinued 1 TAB PO Twice daily September 01, 2022 1:00am April 13, 2023 10:25amStart: 38-62-7724imkr 1 tablet by mouth twice dailySennosides (Senna Lax) 8.6 mg Tablet Active 1 TAB PO Twice daily September 01, 2022 12:00amsennosides, prison 8.6 mg oral tablet (1 source)Start: 09-01-2022 End: 48-56-4531xoej 1 tablet by mouth twice daily as needed for constipation Sennosides (Senna Lax) 8.6 mg Tablet Discontinued 1 TAB PO Twice daily as needed for Constipation September 01, 2022 1:00am April 13, 2023 10:25am sertraline 50 mg oral tablet (20 sources)Serotonin Reuptake InhibitorStart: 01-09-2018 End: 60-28-0011lmfx 150 mg by mouth once dailySertraline Discontinued 150 MG PO Daily January 09, 2018 12:00am July 30, 2018 9:10amStart: 01-04-2018 End: 70-31-6693Fdordsmkmz 100 mg tablet Discontinued 150 MG PO Daily January 04, 2018 12:00am January 09, 2018 11:19amStart: 01-04-2018 End: 42-15-2381utwb 150 mg by mouth once dailySertraline Discontinued 150 MG PO Daily January 04, 2018 12:00am January 09, 2018 11:19amStart: 09-14-2017 End: 32-85-5382kxnx 3 tablets by mouth once dailySertraline 50 mg Tablet Discontinued 150 MG PO Daily January 09, 2018 12:00am July 30, 2018 9 :10amtake 1 tablet by mouth once dailyZoloft 150 mg 1 tablet Orally Once a day Not-TakingtraZODone hydrochloride 150 mg oral tablet (20 sources)Serotonin Reuptake InhibitorStart: 04-13-2023 End: 44-99-7559jfem 2 tablets by mouth at bedtime as neededTrazodone 150 mg tablet Discontinued 300 MG PO Bedtime as needed for Insomnia April 13, 2023 12:00am August 24, 2023 1:19amStart: 04-13-2023 End: 73-58-7372koxz 300 mg by mouth at bedtimeTrazodone Discontinued 300 MG PO Bedtime April 13, 2023 12:00am August 24, 2023 1:19amStart: 06-12-2022 End: 78-83-4167hhus 2 tablets by mouth once daily at bedtimeTrazodone 100 mg Tablet Discontinued 200 MG PO Daily at bedtime 60 June 12, 2022 12:00am August 29, 2022 5:50pmStart: 06-12-2022 End: 52-29-8052dbkk 200 mg by mouth once daily at bedtimeTrazodone Discontinued 200 MG PO Daily at bedtime 60 June 12, 2022 12:00am August 5:50pmStart: 03-05-2021 End: 95-18-0236Fuzcqwujp 150 mg tablet Discontinued 225 MG PO Daily at bedtime June 06, 2022 7:51pm June 12, 2022 12:52pmStart: 03-05-2021 End: 27-92-9302dfla 225 mg by mouth once daily at bedtimeTrazodone Discontinued 225 MG PO Daily at bedtime June 06, 2022 7:51pm June 12, 2022 12 :52pmStart: 11-27-2019 End: 78-09-1127zazw 1 tablet by mouth once daily at bedtimeTrazodone 150 mg Tablet Discontinued 150 MG PO Daily at bedtime February 08, 2020 12:00am March 05, 2021 3:37pmStart: 08-10-2019 End: 32-63-4384unoc 1 tablet by mouth once daily at bedtime as neededTrazodone 100 mg Tablet Discontinued 100 MG PO Daily at bedtime as needed for Insomnia August 10, 2019 1:00am November 27, 2019 5:43pmStart: 56-46-1124tffk 1 tablet by mouth once daily as neededtraZODone (DESYREL) 50 MG tablet Take 1 tablet by mouth nightly as needed (Difficulty staying asleep) 30 tablet 0 07/05/2019 ActiveStart: 09-14-2017 End: 58-40-1397nwrq 1 tablet by mouth once daily as neededtraZODone (DESYREL) 50 MG tablet Take 1 tablet by mouth nightly as needed (Difficulty staying asleep) 30 tablet 0 09/14/2017 07/02/2019 Discontinuedvortioxetine 20 mg oral tablet (10 sources)Start: 06-12-2022 End: 03-83-9640jzcj 1 tablet by mouth once dailyVortioxetine (Trintellix) 20 mg Tablet Discontinued 20 MG PO Daily June 12, 2022 12:00am September 01, 2022 11:42amziprasidone 20 mg oral capsule (6 sources)Atypical AntipsychoticStart: 10-11-2023 End: 80-14-2635lvia 1 capsule by mouth once dailyZiprasidone Hcl 20 mg Capsule Discontinued 20 MG PO Daily with supper October 11, 2023 1:00am January 18, 2024 4:16am Problems Active Problems Problem ClassificationProblemDateDocumented DateEpisodic/ChronicAlcohol-related disorders (20 sources)Chronic alcoholism in remission; Translations: [Alcohol dependence, in remission]Onset: [id number] disorders (20 sources)Generalized anxiety disorder; Translations: [Generalized anxiety disorder]Onset: 773331-19-7625NkcswcaMcogupfyw-exvxskz, conduct, and disruptive behavior disorders (6 sources)Attention deficit hyperactivity disorder; Translations: [Attention- deficit hyperactivity disorder, unspecified type]14-88-1996LcngnnpNkvixxbjd- deficit, conduct, and disruptive behavior disorders (20 sources)Attention deficit hyperactivity disorder, combined type; Translations: [Attention-deficit hyperactivity disorder, combined type]Onset: 993215-35-9096IsfdphiLfilrxbpv-nqweigs, conduct, and disruptive behavior disorders (10 sources)Attention deficit hyperactivity disorder, predominantly inattentive type; Translations: [Attention-deficit hyperactivity disorder, predominantly inattentive type]Onset: [id number] infection; unspecified site (1 source)Methicillin resistant Staphylococcus aureus infection, unspecified site; Translations: [Infection of wound due to methicillin resistant Staphylococcus aureus (MRSA)]EpisodicBlindness and vision defects (10 sources)Visual disturbance; Translations: [Unspecified visual disturbance] 69-12-2477ObdzyosxJqusubuxe of lipid metabolism (20 sources)Hyperlipidemia; Translations: [Hyperlipidemia, unspecified]Onset: 660200-90-7809ZmvvsdnYvzxvbvsk of teeth and jaw (5 sources)Other specified disorders of teeth and supporting structures; Translations: [Periapical abscess without sinus]Onset: 43-71-9193EgchwvtlZ Codes: Fall (10 sources)Fall; Translations: [Unspecified fall, initial encounter]11-28-2019 EpisodicEsophageal disorders (7 sources)Gastroesophageal reflux disease; Translations: [Gastro-esophageal reflux disease without esophagitis]Onset: 196367-23-1420QoafcupDkqdbmggl hypertension (20 sources)Hypertensive disorder; Translations: [Essential (primary) hypertension]Onset: 614674-83-2787UcmwcgzStitlulp; including migraine (3 sources)Headache; including migraine; Translations: [HEADACHE UNSPECIFIED] Onset: 10-37-6264Xulbmuxxy (1 source)Viral hepatitis C; Translations: [Unspecified viral hepatitis C without hepatic coma]EpisodicMenopausal disorders (6 sources)Hormone replacement therapy; Translations: [Drug therapy finding] Onset: 479451-46-2432DlqburtiVftjonepahpty mental health disorders (2 sources)Insomnia due to other mental disorder; Translations: [Insomnia due to other mental disorder]Onset: 29-17-9210GfyywfuDiln disorders (20 sources)Recurrent depression; Translations: [Severe recurrent major depression without psychotic features]Onset: 09-09-2017 Resolved: 061053-57-8948DmrzevbXbhtib and vomiting (14 sources)Nausea; Translations: [Nausea]Onset: 301789-09-1899Yzpdkkhi Nonspecific chest pain (10 sources)Chest pain; Translations: [Chest pain, unspecified]02-06-2020 EpisodicNutritional deficiencies (10 sources)Vitamin D deficiency; Translations: [Vitamin D deficiency, unspecified]64-18-2505FhihnruHiyz wounds of extremities (19 sources)Self inflicted lacerations to wrist; Translations: [Laceration without foreign body of left wrist, initial encounter]43-09-7726ImkwdtvxCrdzp aftercare (1 source)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; Translations: [OTH MANAGER PACKAGING CURRENT DRUG THERAPY]Onset: 86-49-4165EbljdnduNbpui female genital disorders (4 sources)Abnormal uterine and vaginal bleeding, unspecified; Translations: [ABNORMAL UTERINE AND VAGINAL BLEEDING, UNSPECIFIED]Onset: 35-97-7055Pcnsuzn Other hematologic conditions (1 source)H/O: anemia - iron deficient; Translations: [Personal history of diseases of the blood and blood-forming organs and certain disorders involving the immune mechanism]21-40-0861KlifzaufQwogi hematologic conditions (1 source)Personal history of diseases of the blood and blood-forming organs and certain disorders involving the immune mechanism; Translations: [Personal history of diseases of the blood and blood-forming organs and certain disorders involving the immune mechanism]Onset: 03-66-4933MxodcpiuFxzcz infections; including parasitic (10 sources)History of hepatitis C; Translations: [Personal history of other infectious and parasitic diseases]25-81-8482KdhrspjlVphhg nervous system disorders (10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 32817-5, 1988-02, FEPR, TSHR, 2284-05, 2132-06, 66913-7, 2242-#### [facility] ([id number]) [address], [address] [place], [place] [address]HFCCCUHXQty 81-75-2221Eatiqcwki [Mass/Vol]2.0 mg/dLNormal1.8-2.6 [facility] Medical CenterComment on above:Performed By: #### CBCA, 14661-5, CMP, 66712-2, 1988-02, FEPR, TSHR, 2284-05, 2132-06, 08830-0, 2242-#### [facility] ([id number]) [address], [address] [place], [place] [address]Nshhvwg aminotransferase [Enzymatic activity/volume] in Serum or PlasmaOrdered By: Adele Hunter on 20-61-0601XZN [Catalytic activity/Vol] 72 U/LHigh7-52A[facility]a Health SystemAlbumin [Mass/volume] in Serum or Plasma by Bromocresol green (BCG) dye binding methoOrdered By: Adele Schmitt on 00-24-8111Aitbyqm BCG dye [Mass/Vol]4.1 g/dL3.5-5.7FCrystal Clinic Orthopedic CenterAlkaline phosphatase [Enzymatic activity/volume] in Serum or PlasmaOrdered By: Adele Hunter on 32-74-3189OVC [Catalytic activity/Vol] 48 U/Y90-671FujbwdrheAdena Health SystemAspartate aminotransferase [Enzymatic activity/volume] in Serum or PlasmaOrdered By: Adele Hunter on 82-73-7907WRO [Catalytic activity/Vol]61 U/KAlbo75-89SnkjtvzohAdena Health SystemBacteria [Presence] in Urine by AutomatedOrdered By: Adele Hunter on 33-32-5939Rovakynw Auto Ql (U)Rare [HPF]None SeenAdena Health SystemBasophils Auto (Bld) [#/Vol]Ordered By: Adele Schmitt on 61-47-3601Pbbqegwbc (Bld) [#/Vol]0.0 10*3/uL0.0-0.2FCrystal Clinic Orthopedic CenterBasophils/100 WBC Auto (Bld)Ordered By: Adele Hunter on 91-38-0058Voksljlyk/100 WBC (Bld)0.7 %.[facility] Bilirubin Test strip Ql (U)Ordered By: Adele Hunter on 07-15-2024 Bilirubin Ql (U)NegativeNegativeAdena Health SystemBilirubin.total [Mass/volume] in Serum or PlasmaOrdered By: Adele Hunter on 07-15-2024 Bilirubin [Mass/Vol]0.5 mg/dL0.3-1.0[facility] SystemCalcium [Mass/volume] in Serum or PlasmaOrdered By: Adele Hunter on 07-15-2024 Calcium [Mass/Vol]8.8 mg/dL8.6-10.3FCrystal Clinic Orthopedic CenterCarbon dioxide, total [Moles/volume] in Serum or PlasmaOrdered By: Adele Hunter on 02-75-5518ZR2 [Moles/Vol]25.7 mmol/L21.0-31.0[facility] SystemChloride [Moles/volume] in Serum or PlasmaOrdered By: Adele Hunter on 50-28-7162Qwozjpmc [Moles/Vol]106 mmol/G86-011KhezxsytkAdena Health SystemCholesterol [Mass/volume] in Serum or PlasmaOrdered By: Olvin Rollins on 37-62-4149Rdfamtbhxue [Mass/Vol]178 mg/vH297-592SduivztatAdena Health SystemComment on above:Chol less than 200 mg/dl low riskChol 201-239 mg/dl borderline riskChol 240 mg/dl and greater high riskCholesterol in LDL Calc [Mass/Vol]Ordered By: Olvin Rollins on 20-71-4463Oyukzldubio in LDL [Mass/Vol]115 mg/dLHigh0-100A[facility] Health SystemComment on above: LDL ATP III CLASSIFICATIONLDL less than 100 mg/dL OptimalLDL 100-129 mg/dL Near or above ysmwslxISU865-839 mg/dL Borderline highLDL 160-189 mg/dL HighLDL greater than 189 mg/dL Very highCholesterol in VLDL Calc [Mass/Vol]Ordered By: Olvin Rollins on 76-28-7522Uyzmoluphjd in VLDL [Mass/Vol]15 mg/dL [facility] SystemColor Auto (U)Ordered By: Adele Hunter on 51-51-4703Kvlgw (U)ColorlessYellowAdena Health SystemCreatinine [Mass/volume] in Serum or PlasmaOrdered By: Adele Hunter on 07-15-2024 Creatinine [Mass/Vol]0.83 mg/dL0.60-1.20[facility] Eosinophils Auto (Bld) [#/Vol]Ordered By: Adele Hunter on 07-15-2024 Eosinophils (Bld) [#/Vol]0.1 10*3/uL0.0-0.45[facility] Eosinophils/100 WBC Auto (Bld)Ordered By: Adele Hunter on 07-15-2024 Eosinophils/100 WBC (Bld)2.4 %.[facility] Health SystemEpithelial cells.squamous [#/area] in Urine sediment by Automated countOrdered By: Adele Hunter on 14-20-0087Rndssgbwfg cells.squamous Auto (Urine sed) [#/Area] 5-9 [HPF]High0-2FCrystal Clinic Orthopedic CenterErythrocyte distribution width Auto (RBC) [Ratio]Ordered By: Adele Hunter on 76-48-0424Tiwginxbcxc distribution width (RBC) [Ratio]12.9 %11.9-15.3FCrystal Clinic Orthopedic Center Erythrocytes [#/area] in Urine sediment by Automated countOrdered By: Adele Hunter on 45-29-2125OMH Auto (Urine sed) [#/Area]3-4 [HPF]0-4FCrystal Clinic Orthopedic CenterGlobulin Calc (S) [Mass/Vol]Ordered By: Adele Schmitt on 99-58-2185Lmpaxuji (S) [Mass/Vol]2.8 g/dLAdena Health SystemGlucose [Mass/volume] in Serum or PlasmaOrdered By: Adele Hunter on 58-46-1033Vzobkpc [Mass/Vol]86 mg/zU56-767WjfsinlhdAdena Health System Comment on above:ADA recommended reference rangeRandom Glucose Reference Range is dependent on time and content of last meal. Glucose of more than 200 mg/dL in a nonstressed, ambulatory subject supports the diagnosisof Diabetes Mellitus. Glucose [Mass/volume] in Urine by Test stripOrdered By: Adele Hunter on 30-39-6427Hmrfnnj Test strip (U) [Mass/Vol]Normal mg/dLNormalAdena Health SystemHematocrit Auto (Bld) [Volume fraction]Ordered By: Adele Hunter on 55-39-2656Qvgjfagche (Bld) [Volume fraction]41.3 %34.0-46.4 [facility] SystemHemoglobin Test strip Ql (U)Ordered By: Adele Hunter on 13-23-7727Faakwvebof Ql (U)NegativeNegativeAdena Health SystemHemoglobin [Mass/volume] in BloodOrdered By: Adele Hunter on 38-38-1735Ljfrxxcqqt (Bld) [Mass/Vol]14.0 g/dL11.8-15.4FCrystal Clinic Orthopedic CenterHyaline casts [#/area] in Urine sediment by Automated countOrdered By: Adele Hunter on 29-39-1688Hbdcaif casts Auto (Urine sed) [#/Area] None [LPF]0-8[facility] SystemKetones Test strip Ql (U)Ordered By: Adele Hunter on 47-60-3993Zljqawy Ql (U)NegativeNegativeAdena Health SystemLaboratory - Microbiology and Antimicrobial susceptibilityOrdered By: Adele Hunter on 60-29-3864Nlqqfgqk identified Cx Nom (U)2 DaysAdena Health SystemLeukocyte esterase [Presence] in Urine by Test stripOrdered By: Adele Hunter on 96-90-7668Huslfwhbg esterase Test strip Ql (U)3+HighNegativeAdena Health System Leukocytes [#/area] in Urine sediment by Automated countOrdered By: Adele Hunter on 25-57-8379LBY Auto (Urine sed) [#/Area]5-9 [HPF]High0-4 [facility] SystemLeukocytes [#/volume] corrected for nucleated erythrocytes in Blood by Automated counOrdered By: Adele Hunter on 06-24-3592WCV corrected for nucl RBC Auto (Bld) [#/Vol]6.1 10*3/uL3.8-11.6 [facility] SystemLipase [Enzymatic activity/volume] in Serum or PlasmaOrdered By: Adele Hunter on 13-05-5679Lkjfmb [Catalytic activity/Vol]36.0 U/L11.0-82.0A[facility] Health SystemLymphocytes Auto (Bld) [#/Vol]Ordered By: Adele Hunter on 00-44-7908Bdxjqrcepet (Bld) [#/Vol]1.7 10*3/uL1.00-4.8[facility] SystemLymphocytes/100 WBC Auto (Bld)Ordered By: Adele Hunter on 51-40-9028Fctkvyjxtbk/100 WBC (Bld)27.7 %.[facility] HospitalH Auto (RBC) [Entitic mass] Ordered By: Adele Hunter on 00-70-7355AIQ (RBC) [Entitic mass]33.3 pg 24.7-34.3FCrystal Clinic Orthopedic CenterMCHC Auto (RBC) [Mass/Vol]Ordered By: Adele Hunter on 90-20-5065JELU (RBC) [Mass/Vol]34.0 g/dL32.0-35.0 [facility] SystemMCV Auto (RBC) [Entitic vol]Ordered By: Adele Hunter on 56-95-8983KDR (RBC) [Entitic vol]97.9 eP59-789UkpeiiwpoAdena Health SystemMonocytes Auto (Bld) [#/Vol]Ordered By: Adele Schmitt on 97-62-4786Ffsjmjxog (Bld) [#/Vol]0.5 10*3/uL0.0-0.8[facility] SystemMonocytes/100 WBC Auto (Bld)Ordered By: Adele Hunter on 50-55-7871Xdyauqsif/100 WBC (Bld)8.9 %.[facility] SystemMucus [Presence] in Urine by AutomatedOrdered By: Adele Hunter on 07-15-2024 Mucus Auto Ql (U)Rare [LPF][facility] SystemNeutrophils Auto (Bld) [#/Vol]Ordered By: Adele Hunter on 69-62-5194Dhexwhxvoie (Bld) [#/Vol]3.7 10*3/uL1.8-7.7FCrystal Clinic Orthopedic CenterNeutrophils/100 WBC Auto (Bld)Ordered By: Adele Hunter on 07-40-2387Ekfieajtvce/100 WBC (Bld)60.3 %.[facility] SystemNitrite Test strip Ql (U)Ordered By: Adele Hunter on 88-40-1743Oyqynrw Ql (U)NegativeNegativeAdena Health SystemNo Panel InformationOrdered By: Adele Hunter on 57-76-7731Kbdwiuycx GFR (CKD-EPI)> 60.0 mL/MinAdena Health System Pharmacy Creatinine Clearance (Chem82.61[facility] Nucleated erythrocytes [Presence] in Blood by Automated countOrdered By: Adele Hunter on 12-42-2225Nwhwejtkp RBC Auto Ql (Bld)0.1 /100{WBC}0-0.5 [facility] SystemPlatelet mean volume Auto (Bld) [Entitic vol] Ordered By: Adele Hunter on 46-50-4269Sqsvomoz mean volume (Bld) [Entitic vol]9.5 fL6.3-10.7FCrystal Clinic Orthopedic CenterPlatelets Auto (Bld) [#/Vol]Ordered By: Adele Hunter on 92-02-0021Cmwnzpmhj (Bld) [#/Vol]220 10*3/eI419-947VxramvrdwAdena Health SystemPotassium [Moles/volume] in Serum or PlasmaOrdered By: Adele Hunter on 47-35-8362Toqohanqn [Moles/Vol]4.3 mmol/L3.5-5.1FCrystal Clinic Orthopedic CenterProtein Test strip (U) [Mass/Vol] Ordered By: Adele Hunter on 23-34-2920Ctrimvi (U) [Mass/Vol]Negative NegativeAdena Health SystemProtein [Mass/volume] in Serum or PlasmaOrdered By: Adele Hunter on 63-79-7999Ftjaxax [Mass/Vol]6.9 g/dL 6.4-8.9[facility] SystemRBC Auto (Bld) [#/Vol]Ordered By: Adele Hunter on 67-84-9779SCK (Bld) [#/Vol]4.22 10*6/uL3.60-5.00[facility] Samaritan Hospitalerum or plasma albumin/globulin mass ratioOrdered By: Adele Hunter on 51-43-4722Faifpel/Globulin [Mass ratio]1.5 {ratio} [facility] Hospitalerum or plasma anion gap determinationOrdered By: Adele Hunter on 22-70-9413Bzdva gap [Moles/Vol]11.6 mmol/L6.0-15.0 [facility] Hospitalerum or plasma high density lipoprotein (HDL) cholesterol measurementOrdered By: Olvin Rollins on 07-15-2024 Cholesterol in HDL [Mass/Vol]47 mg/iY93-83AyqavpaiiAdena Health System Comment on above:HDL CHOL ATP-III CLASSIFICATION Cardiovascular RiskHDL > or equal to 60 mg/dL LOWHDL < 40 mg/dL HIGHSerum or plasma total cholesterol/high density lipoprotein (HDL) cholesterol mass ratOrdered By: Olvin Rollins on 72-78-3681Udqapxklvyl.total/Cholesterol in HDL [Mass ratio]3.8 {ratio}<5.0 [facility] Hospitalodium [Moles/volume] in Serum or PlasmaOrdered By: Adele Hunter on 54-52-7547Mqgsyl [Moles/Vol]139 mmol/C674-067 [facility] Hospitalpecific gravity Test strip (U) [Rel density] Ordered By: Adele Hunter on 69-01-3754Yrewiibt gravity (U) [Rel density] 1.0071.001-1.030[facility] Health SystemThyrotropin [Units/volume] in Serum or PlasmaOrdered By: Olvin Rollins on 54-14-4140PBH Qn0.53 m[IU]/L 0.45-5.33[facility] SystemTriglyceride [Mass/volume] in Serum or PlasmaOrdered By: Olvin Rollins on 89-30-0821Vsfpkdcgnpty [Mass/Vol]79 mg/dL0-149[facility] SystemComment on above:TRIG ATP III CLASSIFICATIONTRIG less than 150 mg/dL NormalTRIG 150-199 mg/dL Borderline highTRIG 200-500 mg/dL High TRIG greater than 500 mg/dL Very highStandard traceable to the Center for Disease Conrtrol and Prevention (CDC) test method. Urea nitrogen [Mass/volume] in Serum or PlasmaOrdered By: Adele Hunter on 77-09-2764Idoq nitrogen [Mass/Vol]11 mg/dL7-25[facility] SystemUrine appearanceOrdered By: Adele Hunter on 42-15-5812Depwjipkun (U)ClearClearFCrystal Clinic Orthopedic CenterUrobilinogen Test strip (U) [Mass/Vol]Ordered By: Adele Hunter on 23-80-8580Ygyrimtzdinf (U) [Mass/Vol]Normal mg/dLNormalAdena Health SystemVitamin D+Metabolites [Mass/volume] in Serum or PlasmaOrdered By: Olvin Rollins on 85-79-9914Bubdzec D+Metabolites [Mass/Vol]47.6 ng/kU46-409AcrdlpqoaAdena Health SystemComment on above:VITAMIN D STATUS 25(OH)VITAMIN D RANGE (ng/mL) Deficient <20 Insufficient 20 to <22Ekbjtlnhdt68 to 100Reference: Roque MF,Jhony NC, Janina LAYTON, et al. Evaluation,treatment, and prevention of vitamin D deficiency; an Endocrine Society clinical practice guideline. JCEM. 2010; 96(7):1911-30.WBC Auto (Bld) [#/Vol]Ordered By: Adele Hunter on 27-14-6880HXA (Bld) [#/Vol]6.1 10*3/uL3.8-11.6FCrystal Clinic Orthopedic CenterpH Test strip (U)Ordered By: Adele Hunter on 11-62-6998bT (U)7.0 [pH]5.0-9.0[facility] SystemCBC AND AUTO DIFFon 01-18-2024 ABSOLUTE BASOPHIL0.0 X10E9/LNormal0.0-0.2[facility] HospitalComment on above:Performed By: #### CBCA, CMP, 5643-2, THYR #### [facility] ([id number]) [address] [place] [address], FIRST FLOOR [place], [place] [address]BYHUTSUF NEUTROPHIL4.0 X10E9/LNormal1.5-6.6ProUt Health [facility] HospitalComment on above:Performed By: #### VERONICA MOTTA, 5643-2, THYR #### [facility] ([id number]) [address] [place] [address]Xojpisjcd/100 WBC (Bld)0.5 %[facility] Comment on above:Performed By: #### VERONICA MOTTA, 5643-2, THYR #### [facility] ([id number]) [address] [place] [address]Aubawcihjrk (Bld) [#/Vol]0.1 10*3/uLNormal0.0-0.4[facility] CenterComment on above:Performed By: #### VERONICA MOTTA, 5643-2, THYR #### [facility] ([id number]) [address] [place] [address]Uyfubbiuwcn/100 WBC (Bld)1.2 %NormalMetroHealth Cleveland Heights Medical Center Comment on above:Performed By: #### VERONICA MOTTA, 5643-2, THYR #### [facility] ([id number]) [address] [place] [address]Kvlhlrmoxos distribution width (RBC) [Ratio]13.4 %Normal 11.5-15.0[facility] Medical CenterComment on above:Performed By: #### VERONICA MOTTA, 5643-2, THYR #### [facility] ([id number]) [address] [place] [address]Uuxeegodah (Bld) [Volume fraction]37.6 %Hdhrfv51-00MigUrrhmbUt Health East Texas Carthage HospitalComment on above:Performed By: #### VERONICA MOTTA, 5643-2, THYR #### [facility] ([id number]) [address] [place] [address]Pclktpxchv (Bld) [Mass/Vol]13.2 g/pTTltqkc16.7-15.5PRegency Hospital Cleveland EastComment on above:Performed By: #### VERONICA MOTTA, 5643-2, THYR #### [facility] ([id number]) [address] [place] [address]Hpbhjrloylk (Bld) [#/Vol]1.5 10*3/uLNormal1.0-3.5PRegency Hospital Cleveland EastComment on above:Performed By: #### VERONICA MOTTA, 5643-2, THYR #### [facility] ([id number]) [address] [place] [address]Rditdwvlela/100 WBC (Bld)24.2 %NormalMetroHealth Cleveland Heights Medical Center Comment on above:Performed By: #### VERONICA MOTTA, 5643-2, THYR #### [facility] ([id number]) [address] [place] [address]VUH (RBC) [Entitic mass]33.9 esSowfce08-89BcoCafjneMetroHealth Cleveland Heights Medical CenterComment on above:Performed By: #### VERONICA MOTTA, 5643-2, THYR #### [facility] ([id number]) [address] [place] [address]HDMC (RBC) [Mass/Vol]35.2 g/oSLxdnjg40-64ZysLqdnodMetroHealth Cleveland Heights Medical CenterComment on above:Performed By: #### CBCWillow CMP, 5643-2, THYR #### [facility] ([id number]) [address] [place] [address]BHO (RBC) [Entitic vol]96 iYFcwvhf24-206PvnVnnvxj [facility]ont HospitalComment on above:Performed By: #### ÁNGELA CMP, 5643-2, THYR #### [facility] ([id number]) [address] [place] [address]Qljwczvrg (Bld) [#/Vol]0.5 10*3/uLNormal0-0.9[facility] Medical CenterComment on above:Performed By: #### CBCWillow, CMP, 5643-2, THYR #### [facility] ([id number]) [address] [place] [address]Zkuamibiq/100 WBC (Bld)8.4 %[facility] Comment on above:Performed By: #### CBCWillow, CMP, 5643-2, THYR #### [facility] ([id number]) [address] [place] [address]Etmquzjdnky/100 WBC (Bld)65.7 %[facility] Comment on above:Performed By: #### CBCWillow, CMP, 5643-2, THYR #### [facility] ([id number]) [address] [place] [address]Ciipaocd mean volume (Bld) [Entitic vol]9.0 fLNormal7-12 [facility] Medical CenterComment on above:Performed By: #### CBCWillow, CMP, 5643-2, THYR #### [facility] ([id number]) [address] [place] [address]Pfsmcxafa (Bld) [#/Vol]216 10*3/jTUtjjaw762-075JtoWvxvxyMetroHealth Cleveland Heights Medical CenterComment on above:Performed By: #### CBCA, CMP, 5643-2, THYR #### [facility] ([id number]) [address] [place] [address]QGG COUNT3.90 X10E12/LNormal3.80-5.20[facility] Comment on above:Performed By: #### CBCA, CMP, 5643-2, THYR #### [facility] ([id number]) [address] [place] [address], [place] [address]UGA (Bld) [#/Vol]6.1 10*3/uLNormal4.0-11.0ProUt Health [facility] HospitalComment on above:Performed By: #### VERONICA MOTTA, 5643-2, THYR #### [facility] ([id number]) [address] [place] [address]FAECEMEIAOWWQ METABOLIC PANELon 15-00-7217Jqzmstu [Mass/Vol]4.6 g/dLNormal3.2-5.3ProMedHuntington Beach Hospital and Medical CenterComment on above:Performed By: #### VERONICA MOTTA, 5643-2, THYR #### [facility] ([id number]) [address] [place] [address], [place] [address]OQP [Catalytic activity/Vol]53 U/LSiykyd70-561ZbxImbfakUt Health East [facility] Carthage HospitalComment on above:Performed By: #### VERONICA MOTTA, 5643-2, THYR #### [facility] ([id number]) [address] [place] [address], [place] [address]TKP [Catalytic activity/Vol]79 U/LHigh0-31PRegency Hospital Cleveland EastComment on above:Performed By: #### VERONICA MOTTA, 5643-2, THYR #### [facility] ([id number]) [address] [place] [address], [place] [address]Ubdpn gap [Moles/Vol]8 mmol/LNormal5-15Pro[facility] HospitalComment on above:Performed By: #### VERONICA MOTTA, 5643-2, THYR #### [facility] ([id number]) [address] [place] [address]KRM [Catalytic activity/Vol]71 U/LHigh0-41Pro[facility] HospitalComment on above:Performed By: #### VERONICA MOTTA, 5643-2, THYR #### [facility] ([id number]) [address] [place] [address], [place] [address]Zxjjptxuw [Mass/Vol]1.1 mg/dLNormal0.3-1.2PRegency Hospital Cleveland EastComment on above:Performed By: #### VERONICA MOTTA, 5643-2, THYR #### [facility] ([id number]) [address] [place] [address], [place] [address]Qwyyqxq [Mass/Vol]8.9 mg/dLNormal8.5-10.5PRegency Hospital Cleveland EastComment on above:Performed By: #### VERONICA MOTTA, 5643-2, THYR #### [facility] ([id number]) [address] [place] [address], [place] [address]Fatptvqn [Moles/Vol]105 mmol/ULkujpa12-751RawWmzoprUt Health East [facility] Carthage HospitalComment on above:Performed By: #### VERONICA MOTTA, 5643-2, THYR #### [facility] ([id number]) [address] [place] [address], [place] [address]WI0 [Moles/Vol]23 mmol/YSjxosm02-07GtiNmlxvaRegency Hospital Cleveland East Comment on above:Performed By: #### VERONICA MOTTA, 5643-2, THYR #### [facility] ([id number]) [address] [place] [address], [place] [address]Qztukjtiwz [Mass/Vol]0.81 mg/dLNormal0.40-1.00ProUt Health [facility] HospitalComment on above:Result Comment: METHOD TRACEABLE TO IDMS STANDARD Performed By: #### VERONICA MOTTA, 5643-2, THYR #### [facility] ([id number]) [address] [place] [address], [place] [address]QGQ/1.73 sq M.predicted among non-blacks MDRD (S/P/Bld) [Vol rate/Area]88 mL/min/{1.73_m2}Normal>59ProUt Health [facility]th[facility] HospitalComment on above:Result Comment: Reported eGFR is based on the CKD-EPI 1 equation that does not use a race coefficient.Performed By: #### VERONICA MOTTA, 5643-2, THYR #### [facility] ([id number]) [address] [place] [address], [place] [address]Agshfyr [Mass/Vol]82 mg/eLKjqznr61-21WocKylyguUt Health [facility] Hospital Comment on above:Performed By: #### VERONICA MOTTA, 5643-2, THYR #### [facility] ([id number]) [address] [place] [address], [place] [address]Rwmjtbgjc [Moles/Vol]3.7 mmol/LNormal3.5-5.0ProUt [facility] HospitalComment on above:Performed By: #### VERONICA MOTTA, 5643-2, THYR #### [facility] ([id number]) [address] [place] [address], [place] [address]Vsheiwg [Mass/Vol]7.8 g/dLNormal6.0-8.0Pro[facility] HospitalComment on above:Performed By: #### VERONICA MOTTA, 5643-2, THYR #### [facility] ([id number]) [address] [place] [address]Uqsrtc [Moles/Vol]136 mmol/VXajgqn687-038PlaOsrwjh [facility] HospitalComment on above:Performed By: #### VERONICA MOTTA, 5643-2, THYR #### [facility] ([id number]) [address] [place] [address], [place] [address]Grao nitrogen [Mass/Vol]13 mg/dLNormal5-23ProUt [facility] HospitalComment on above:Performed By: #### VERONICA MOTTA, 5643-2, THYR #### [facility] ([id number]) [address] [place], [place] [address]Lvjedppsaom [Mass/volume] in Serum or PlasmaOrdered By: Olvin Rollins on [id number] [Mass/Vol]165 mg/kI472-883 [facility] SystemComment on above:Chol less than 200 mg/dl low riskChol 201-239 mg/dl borderline riskChol 240 mg/dl and greater high risk Cholesterol in LDL Calc [Mass/Vol]Ordered By: Olvin Rollins on [id number] in LDL [Mass/Vol]100 mg/dL0-100[facility] Health SystemComment on above:LDL ATP III CLASSIFICATIONLDL less than 100 mg/dL OptimalLDL 100-129 mg/dL Near or above qpwsohaMKC669-486 mg/dL Borderline highLDL 160-189 mg/dL HighLDL greater than 189 mg/dL Very highCholesterol in VLDL Calc [Mass/Vol]Ordered By: Olvin Rollins on 69-40-4822Zcqmoksatzs in VLDL [Mass/Vol]15 mg/dLAdena Health SystemDRUG SCREEN, URINEon [id number]/METHAMPNegativermalNEGMetroHealth Cleveland Heights Medical CenterComment on above:Result Comment: AMPH/METH screening cut off = 1000 ng/mLPerformed By: #### DSU #### [facility] ([id number]) [address] [place] [id number]ljWHTPdpJenmue [facility] HospitalComment on above:Result Comment: Barbiturates screening cut off value = 200 ng/mL Performed By: #### DSU #### [facility] ([id number]) [address] [place] [id number]wphflchTFGVjeXtwado [facility] Comment on above:Result Comment: Confirmation available upon request. Benzodiazepines screening cut off value = 200 ng/mLPerformed By: #### DSU #### [facility] ([id number]) [address] [place] [id number]ogqvUPPNaaMjtomc [facility] Comment on above:Result Comment: Confirmation available upon request. Cannabinoids/THC screening cut off value = 50 ng/mLPerformed By: #### DSU #### [facility] ([id number]) [address] [place] [id number] METABOLITEPositiveClinton Memorial Hospital Comment on above:Result Comment: Confirmation available upon request. Cocaine screening cut off value = 300 ng/mLPerformed By: #### DSU #### [facility] ([id number]) [address] [place] [address] 87323IYAYZDIJcyjoebpWsnlvyNVVRgqJxbydc [facility] HospitalComment on above:Result Comment: Ecstasy screening cut off value = 500 ng/mL This report is intended for use in clinical monitoring or management of patients.Performed By: #### DSU #### [facility] ([id number]) [address] [place] [address] 51165LJMOBAQSYOejluidwTylqkwEVRCnzCbpsho [facility] HospitalComment on above:Result Comment: Methadone screening cut off value = 300 ng/mL.Performed By: #### DSU #### [facility] ([id number]) [address] [place] [address] 31104RYWHPISGwfyavioWnuqsqAWAEfbScubtq [facility] HospitalComment on above:Result Comment: Opiates screening cut off value = 300 ng/mL NOTE: This test is used for the detection of codeine, hydrocodone (>1000 ng/mL), morphine and hydromorphone (>900 ng/mL) in urine.Performed By: #### DSU #### [facility] ([id number]) [address] [place] [address], [place] [address]TFDOJYTBMXurttuuqFuzqkjWXBOdoCbgqsl [facility] HospitalComment on above:Result Comment: Oxycodone screening cut off value = 300 ng/mL NOTE: This test is used for the detection of oxycodone and oxymorphone in urine.Performed By: #### DSU #### [facility] ([id number]) [address] [place] [address] 93813QKGMXIZTXAHWDEjpbccjaKngphnVGOEppSxwpjv [facility] HospitalComment on above:Result Comment: Phencyclidine screening cut off value = 25 ng/mL Performed By: #### DSU #### [facility] ([id number]) [address] [place] [address] 61337QMCQYZEvh 84-24-7770Dtyepdh [Mass/Vol]mg/dLNormal0.00-0.08 [facility] HospitalComment on above:Result Comment: This report is intended for use in clinical monitoring or management of patients.Performed By: #### VERONICA MOTTA, 5643-2, THYR #### [facility] ([id number]) [address] [place] [address] 62300Xvick or plasma high density lipoprotein (HDL) cholesterol measurementOrdered By: Olvin Rollins on 40-88-1464Aohmqkemdis in HDL [Mass/Vol]49 mg/lL10-90ZlocontbgAdena Health SystemComment on above:HDL CHOL ATP-III CLASSIFICATION Cardiovascular RiskHDL > or equal to 60 mg/dL LOWHDL < 40 mg/dL HIGHSerum or plasma total cholesterol/high density lipoprotein (HDL) cholesterol mass ratOrdered By: Olvin Rollins on 01-18-2024 Cholesterol.total/Cholesterol in HDL [Mass ratio]3.4 {ratio}<5.0Adena Health SystemTHYROID PROFILEon 83-86-0542Lapl T4 [Mass/Vol]1.02 ng/dL Normal0.61-1.60[facility] Medical CenterComment on above:Performed By: #### LEILANIA, VERONICA, 5643-2, THYR #### [facility] ([id number]) [address] [place] [address]2612EFY5.73 uIU/mLHigh0.49-4.67ProUt [facility] Carthage HospitalComment on above:Performed By: #### CBCA, CMP, 5643-2, THYR #### [facility] ([id number]) [address] [place] [address] 54751Nkcmvzdoxim [Units/volume] in Serum or PlasmaOrdered By: Olvin Rollins on 00-89-4809VVA Qn5.89 m[IU]/L0.45-5.33Adena Health SystemThyroxine (T4) free [Mass/volume] in Serum or PlasmaOrdered By: Olvin Rollins on 43-33-0284Seyw T4 [Mass/Vol]0.96 ng/dL0.61-1.12 [facility] SystemTriglyceride [Mass/volume] in Serum or Plasma Ordered By: Olvin Rollins on 29-65-9756Nthnvoyojewh [Mass/Vol]78 mg/dL 0-149Adena Health SystemComment on above:TRIG ATP III CLASSIFICATIONTRIG less than 150 mg/dL NormalTRIG 150-199 mg/dL Borderline highTRIG 200-500 mg/dL High TRIG greater than 500 mg/dL Very highStandard traceable to the Center for Disease Conrtrol and Prevention (CDC) test method. GABRIELLA Russell 89-72-5865ZUHJWGOEY NURSmallAbnormalNEGMetroHealth Cleveland Heights Medical CenterComment on above:Performed By: #### NUM #### [facility] ([id number]) [address] [place] [address] 80539DYXJN/HGB NURTraceAbnormalNEGMetroHealth Cleveland Heights Medical CenterComment on above:Performed By: #### NUM #### [facility] ([id number]) [address] [place] [address] 86576AFKGPVE NURNegativeNormalNEGMetroHealth Cleveland Heights Medical CenterComment on above:Performed By: #### NUM #### [facility] ([id number]) [address] [place] [address], [place] [address]MUSODEL NUR40 mg/dLAbnormalNEGProUt Health East Texas Carthage HospitalComment on above:Performed By: #### NUM #### [facility] ([id number]) [address] [place] [address], [place] [address]WLJCXLSXA ESTERASE NURSmallAbnormalNEGMetroHealth Cleveland Heights Medical CenterComment on above:Performed By: #### NUM #### [facility] ([id number]) [address] [place] [address] [place] [address]UNLTQID NURNegativeNormalNEGMetroHealth Cleveland Heights Medical CenterComment on above:Performed By: #### NUM #### [facility] ([id number]) [address] [place] [address], [place] [address]WO NUR5.5Banchh8.0-8.5PRegency Hospital Cleveland EastComment on above:Performed By: #### NUM #### [facility] ([id number]) [address] [place] [address], [place] [address]LQCIDAN NURNegativeNormalNEGProUt Health East Texas Carthage HospitalComment on above:Performed By: #### NUM #### [facility] ([id number]) [address] [place] [address], [place] [address]RJPKARZU GRAVITY LESLYE>=1.532Akvbdu1.003-1.035ProUt [facility] Carth[facility] HospitalComment on above:Performed By: #### NUM #### [facility] ([id number]) [address] [place] [address], [place] [address]TMOKGWXOBVSK NUR0.2 eu/dLNormal<1.1PRegency Hospital Cleveland East Comment on above:Performed By: #### NUM #### [facility] ([id number]) [address] [place] [address], [place] [address]Ttbxghb D+Metabolites [Mass/volume] in Serum or PlasmaOrdered By: Olvin Rollins on 65-27-6384Aolvfdi D+Metabolites [Mass/Vol]37.9 ng/fQ04-730RgsncftjoAdena Health SystemComment on above:VITAMIN D STATUS 25(OH)VITAMIN D RANGE (ng/mL) Deficient <20 Insufficient 20 to <14Xemwluwuwr13 to 100Reference: Roque MF,Jhony MEDINA, Janina LAYTON, et al. Evaluation,treatment, and prevention of vitamin D deficiency; an Endocrine Society clinical practice guideline. JCEM. 2010; 96(7):1911-30.CBC AND AUTO DIFFon 80-62-7570EZDNLZYS BASOPHIL0.1 X10E9/LNormal0.0-0.2[facility] Medical CenterComment on above:Performed By: #### CBCA, 69580-7, CMP, 79766-2, 1988-02, FEPR, TSHR, 2284-8, 2132-9, 24751-3, 2243-4#### [facility] ([id number]) [address], [address] [place], [place] [address]HZEJDUUT NEUTROPHIL5.9 X10E9/LNormal1.5-6.6[facility] HospitalComment on above:Performed By: #### CBCA, 57034-2, CMP, 74179-6, 1988-02, FEPR, TSHR, 2284-8, 2132-9, 07153-4, 2243-4#### [facility] ([id number]) [address], [address] [place], [place] [address]Onpdiqdur/100 WBC (Bld)0.7 %NormalProEast [place] Regional Hospital Comment on above:Performed By: #### CBCA, 66803-8, CMP, 62480-0, 1988-02, FEPR, TSHR, 2283-8, 2131-9, 74044-0, 2243-4#### [facility] ([id number]) [address], [address] [place], [place] [address]Vzelpoltopv (Bld) [#/Vol]0.0 10*3/uLNormal0.0-0.4ProEast [place] Regional HospitalComment on above:Performed By: #### CBCA, 48995-6, CMP, 17903-6, 1988-02, FEPR, TSHR, 2284-05, 2132-06, , 2242-#### [facility] ([id number]) [address], [address] [place], [place] [address]Mfqevwsvvqc/100 WBC (Bld)0.6 %NormalProEast [place] Regional Hospital Comment on above:Performed By: #### CBCA, 63308-7, CMP, , 1988-02, FEPR, TSHR, 2284-05, 2132-06, 68422-0, 2242-#### [facility] ([id number]) [address], [address] [place], [place] [address]Aiziwmbqnbz distribution width (RBC) [Ratio]12.8 %Normal 11.5-15.0ProEast [place] Regional HospitalComment on above:Performed By: #### CBCA, 96710-0, CMP, , 1988-02, FEPR, TSHR, 2284-05, 2132-06, 84552-8, 2242-#### [facility] ([id number]) [address], [address] [place], [place] [address]Tralfxabes (Bld) [Volume fraction]39.7 %Twekyu59-58YunNogsopEast Ohio Regional HospitalComment on above:Performed By: #### CBCA, 94509-2, CMP, 39752-1, 1988-02, FEPR, TSHR, 2284-05, 2132-06, 19658-0, 2242-#### [facility] ([id number]) [address], [address] [place], [place] [address]Iivbsycazp (Bld) [Mass/Vol]13.5 g/yYLnitir17.7-15.5PCincinnati VA Medical CenterComment on above:Performed By: #### CBCA, 92024-9, CMP, 01084-8, 1988-02, FEPR, TSHR, 2284-05, 2132-06, 46767-4, 224-4#### [facility] ([id number]) [address], [address] [place], [place] [address]Hoeoxfjlutm (Bld) [#/Vol]0.9 10*3/uLLow1.0-3.5[facility] Medical CenterComment on above:Performed By: #### CBCA, 86781-4, CMP, 18776-7, 1988-02, FEPR, TSHR, 2284-05, 2132-06, 84880-8, 224-4#### [facility] ([id number]) [address], [address] [place], [place] [address]Fnecsmdpcum/100 WBC (Bld)12.8 %NormalProEast [place] Regional Hospital Comment on above:Performed By: #### CBCA, 39537-5, CMP, , 1988-02, FEPR, TSHR, 2284-05, 2132-06, 19061-2, 2242-#### [facility] ([id number]) [address], [address] [place], [place] [address]YRM (RBC) [Entitic mass]32.6 grWrbrzh69-81FymIrjviw [facility] HospitalComment on above:Performed By: #### CBCA, 92829-9, CMP, , 1988-02, FEPR, TSHR, 2284-05, 2132-06, 27113-2, 224-4#### [facility] ([id number]) [address], [address] [place], [place] [address]MWXO (RBC) [Mass/Vol]34.0 g/tPJpcfzz21-95RhwKxkwxn [facility] HospitalComment on above:Performed By: #### CBCA, 81653-1, CMP, , 1988-02, FEPR, TSHR, 228-8, 2131-9, 66722-2, 2243-4#### [facility] ([id number]) [address], [address] [place], [place] [address]GBB (RBC) [Entitic vol]96 qZWbeprt59-303MaqVgilcv [facility] HospitalComment on above:Performed By: #### CBCA, 45457-3, CMP, , 1988-02, FEPR, TSHR, 2283-8, 2131-9, 75259-0, 2243-4#### [facility] ([id number]) [address], [address] [place], [place] [address]Ajfofkvrw (Bld) [#/Vol]0.5 10*3/uLNormal0-0.9ProEast [place] Regional HospitalComment on above:Performed By: #### CBCA, 59256-6, CMP, , 1988-02, FEPR, TSHR, 2283-8, 2131-9, 67329-3, 3-4#### [facility] ([id number]) [address], [address] [place], [place] [address]Gkmiuxgyd/100 WBC (Bld)6.2 %NormalSuburban Community Hospital & [facility] Hospital Comment on above:Performed By: #### CBCA, 87299-0, CMP, , 1988-02, FEPR, TSHR, 2283-, 2132-06, 62227-4, 2243-4#### [facility] ([id number]) [address], [address] [place], [place] [address]Qtkqhfgulwo/100 WBC (Bld)79.7 %NormalSuburban Community Hospital & [facility] Comment on above:Performed By: #### CBCA, 82206-2, CMP, , 1988-02, FEPR, TSHR, 2283-8, 2131-9, 35960-2, 2243-4#### [facility] ([id number]) [address], [address] [place], [place] [address]Lecblcos mean volume (Bld) [Entitic vol]9.6 fLNormal7-12 [facility] Medical CenterComment on above:Performed By: #### CBCA, 61746-7, CMP, 10803-7, 1988-02, FEPR, TSHR, 2283-8, 2132-06, 63670-8, 2243-4#### [facility] ([id number]) [address], [address] [place], [place] [address]Xkbcbbxxx (Bld) [#/Vol]249 10*3/vHWqdeiz593-008MnnIowbvh [facility] HospitalComment on above:Performed By: #### CBCA, 01141-1, CMP, 83633-3, 1988-02, FEPR, TSHR, 2283-, 2132-06, 04918-3, 2243-4#### [facility] ([id number]) [address], [address] [place], [place] [address]WTC COUNT4.13 X10E12/LNormal3.80-5.20[facility] Comment on above:Performed By: #### CBCA, 74327-3, CMP, 61449-6, 1988-02, FEPR, TSHR, 2283-, 2132-06, 12751-8, 2243-4#### [facility] ([id number]) [address], [address] [place], [place] [address]KGE (Bld) [#/Vol]7.3 10*3/uLNormal4.0-11.0ProEast [facility] Regional HospitalComment on above:Performed By: #### CBCA, 00422-4, CMP, 54233-6, 1988-02, FEPR, TSHR, 2283-8, 2131-9, 49206-2, 2243-4#### [facility] ([id number]) [address], [address] [place], [place] [address]XKWSOIBGSMLRM METABOLIC PANELon 38-66-6030Ifypsmo [Mass/Vol]4.4 g/dLNormal3.2-5.3ProMedUniversity Hospitals Conneaut Medical CenterComment on above:Performed By: #### CBCA, 07417-2, CMP, 45551-3, 1988-02, FEPR, TSHR, 2283-8, 2131-9, 21457-6, 2243-4 #### [facility] ([id number]) [address], [address] [place], [place] [address]JJQ [Catalytic activity/Vol]63 U/JOgpvtd82-168QchYezrip [facility] HospitalComment on above:Performed By: #### CBCWillow, 21292-7, CMP, 53260-6, 1988-02, FEPR, TSHR, 2283-, 2132-06, 88681-9, 2243-4#### [facility] ([id number]) [address], [address] [place], [place] [address]FMI [Catalytic activity/Vol]74 U/LHigh0-31PCincinnati VA Medical CenterComment on above:Performed By: #### CBCWillow, 26892-8, CMP, 97875-7, 1988-02, FEPR, TSHR, 2283-8, 2131-9, 05976-1, 2243-4#### [facility] ([id number]) [address], [address] [place], [place] [address]Smtma gap [Moles/Vol]16 mmol/LHigh5-15Pro[facility] Comment on above:Performed By: #### CBCA, 81803-8, CMP, 83073-5, 1988-02, FEPR, TSHR, 2283-8, 2131-9, 23722-3, 2243-4#### [facility] ([id number]) [address], [address] [place], [place] [address]NWA [Catalytic activity/Vol]87 U/LHigh0-41ProEast [facility] Regional HospitalComment on above:Performed By: #### CBCA, 72060-3, CMP, 63811-9, 1988-02, FEPR, TSHR, 2284-05, 2132-06, 26282-9, 2242-#### [facility] ([id number]) [address], [address] [place], [place] [address]Xankucixe [Mass/Vol]0.4 mg/dLNormal0.3-1.2PCincinnati VA Medical CenterComment on above:Performed By: #### CBCA, 88295-6, CMP, 35123-6, 1988-02, FEPR, TSHR, 2284-05, 2132-06, 94031-0, 2242-#### [facility] ([id number]) [address], [address] [place], [place] [address]Xcbxeor [Mass/Vol]9.4 mg/dLNormal8.5-10.5PCincinnati VA Medical CenterComment on above:Performed By: #### CBCA, 61435-7, CMP, , 1988-02, FEPR, TSHR, 2284-05, 2132-06, 79328-7, 2242-#### [facility] ([id number]) [address], [address] [place], [place] [address]Qbpdjadk [Moles/Vol]102 mmol/YVluspb43-034GweTuoqpz [facility] HospitalComment on above:Performed By: #### CBCA, 39616-1, CMP, 28331-3, 1988-02, FEPR, TSHR, 2284-05, 2132-06, 95227-7, 2242-#### [facility] ([id number]) [address], [address] [place], [place] [address]KT9 [Moles/Vol]25 mmol/CHgcvyy77-21AgeXozjuvZanesville City Hospital on above:Performed By: #### CBCA, 70616-5, CMP, , 1988-02, FEPR, TSHR, 2283-, 9, 56729-0, 2242-4#### [facility] ([id number]) [address], [address] [place], [place] [address]Kwkbbarkyb [Mass/Vol]0.89 mg/dLNormal0.40-1.00ProEast [place] Regional HospitalComment on above:Result Comment: METHOD TRACEABLE TO IDMS STANDARD Performed By: #### ÁNGELA, 09644-5, CMP, , 1988-02, FEPR, TSHR, 2283-, 2132-06, 30137-3, 2242-#### [facility] ([id number]) [address], [address] [place], [place] [address]LHV/1.73 sq M.predicted among non-blacks MDRD (S/P/Bld) [Vol rate/Area]79 mL/min/{1.73_m2}Normal>59ProEast [facility] Regional HospitalComment on above: Result Comment: Reported eGFR is based on the CKD-EPI 2020 equation that does not use a race coefficient.Performed By: #### ÁNGELA, 58502-1, VERONICA, , , FEPR, TSHR, 2284-05, 2132-06, 63406-2, 2242-#### [facility] ([id number]) [address], [address] [place], [place] [address]Ufjknjh [Mass/Vol]68 mg/fKXrcfxd76-33GnfFxpfxy [facility] Comment on above:Performed By: #### ÁNGELA, 75948-2, CMP, 33311-2, 1988-02, FEPR, TSHR, 2283-, 2132-06, 87054-7, 2242-4#### [facility] ([id number]) [address], [address] [place], [place] [address]Iqptznpkf [Moles/Vol]4.2 mmol/LNormal3.5-5.0ProEast [facility] Regional HospitalComment on above:Performed By: #### CBCA, 88280-0, CMP, 89838-7, 1988-02, FEPR, TSHR, 2284-05, 2132-06, 01749-6, 224-4#### [facility] ([id number]) [address], [address] [place], [place] [address]Gnkpnfb [Mass/Vol]7.6 g/dLNormal6.0-8.0ProBrecksville Va [facility] Hospital Comment on above:Performed By: #### CBCA, 05879-2, CMP, 70319-7, 1988-02, FEPR, TSHR, 2284-05, 2132-06, 26399-8, 2242-4#### [facility] ([id number]) [address], [address] [place], [place] [address]Qpanbj [Moles/Vol]143 mmol/ZQhmibn523-314HdlBiwjkm [facility] HospitalComment on above:Performed By: #### CBCA, 81810-3, CMP, 23605-8, 1988-02, FEPR, TSHR, 2284-05, 2132-06, 57073-2, 2242-#### [facility] ([id number]) [address], [address] [place], [place] [address]Fvkk nitrogen [Mass/Vol]7 mg/dLNormal5-23ProBrecksville Va / Crille Hospital HospitalComment on above:Performed By: #### CBCA, 16169-7, CMP, 38491-6, 1988-02, FEPR, TSHR, 2284-05, 2132-06, 49705-7, 224-4#### [facility] ([id number]) [address], [address] [place], [place] [address]SQH [Mass/Vol]on 4C REACTIVE PROTEIN0.8 mg/dLHigh 0.000-0.744PCincinnati VA Medical CenterComment on above:Performed By: #### CBCA, 58611-7, CMP, 56434-2, 1988-02, FEPR, TSHR, 2284-05, 2132-06, 40860-9, 2242-#### [facility] ([id number]) [address] [place] [address], [address] [place], [place] [address]W9 [Mass/Vol]on 25-93-8511CKVFXBTNP47.6 pg/mLNormalProEast Ohio Regional HospitalComment on above:Result Comment: NON- FEMALES Mid follicular: 25-115 pg/mL [...] impact on estradiol recovery when using this assay.Performed By: #### ÁNGELA, 28822-3, VERONICA, 06831-6, 1988-02, FEPR, TSHR, 2284-05, 2132-06, 09662-4, 2242-#### [facility] ([id number]) [address] [place] [address], [address] [place], [place] [address]MWQ Photometric method (Bld) [Velocity]on 69-36-8198GXR, ERYTHROCYTE SEDIMENTATION RATE29 mm/hNormal0-30[facility] Brentwood HospitalComment on above:Performed By: #### ÁNGELA, 95509-5, VERONICA, 47232-6, 1988-02, FEPR, TSHR, 2284-05, 2132-06, 76133-2, 2242-#### [facility] ([id number]) [address] [place] [address], [address] [place], [place] [address]Gbjkqk [Mass/Vol]on 86-52-6609MNXKN ACID>25.0Normal>5.8ProEast [facility] Regional HospitalComment on above:Result Comment: NEW REFERENCE RANGEPerformed By: #### CBCA, 58753-2, CMP, 25961-7, 1988-02, FEPR, TSHR, 2284-05, 2132-06, 12612- 6, 2242-4#### [facility] ([id number]) [address] [place] [address] [place], [place] [address]IKG A1C (GLYCO-HGB)on 29-12-8437Awjrroi [Mass/Vol]108 mg/dL NormalProEast Ohio Regional HospitalComment on above:Performed By: #### CBCA, 90670- 1, CMP, 42598-2, 1988-02, FEPR, TSHR, 2284-05, 2132-06, 83395-6, 2242-#### [facility] ([id number]) [address] [place] [address] [place], [place] [address]InG5g (Bld) [Mass fraction]5.4 %Normal4.4-5.6ProEast [facility] Regional HospitalComment on above:Result Comment: NOTE ADA Guidelines Result HgbA1c Normal : less than 5.7 % Prediabetes : 5.7 % to 6.4 % Diabetes : > 6.4 % Use with caution in patients with abnormal hemoglobin variants as the half-life of red blood cells and in vivo glycation rates are affected.Performed By: #### CBCA, 15203-8, CMP, 56710-5, 1988-02, FEPR, TSHR, 2284-05, 2132-06, 03545-4, 2242-4#### [facility] ([id number]) [address], [address] [place], [place] [address]ZBWY PROFILEon 05-14-3427Qbox [Mass/Vol]53 ug/uQXvbzrr16-395 ProMKettering Health TroyComment on above:Performed By: #### CBCA, 53818-3, CMP, 98233-6, 1988-02, FEPR, TSHR, 2283-8, 2131-9, 60987-8, 2243-4#### [facility] ([id number]) [address], [address] [place], [place] [address]JPCN XASRCMV702 ug/qHZdpbgd599-746KavTgrpucSuburban Community Hospital & [facility] Comment on above:Performed By: #### ÁNGELA, 96537-6, CMP, 23447-7, 1988-02, FEPR, TSHR, 2284-05, 9, 35275-5, 224-4#### [facility] ([id number]) [address], [address] [place], [place] [address]JQRZ AAQSHYYMVA81 % MWQLUVQSQVJhs14-82BimTwrmhj [facility] Comment on above:Performed By: #### ÁNGELA, 98443-2, CMP, 02832-9, 1988-02, FEPR, TSHR, 2284-05, 2132-06, 17761-6, 224-4#### [facility] ([id number]) [address], [address] [place], [place] [address]Adcqv 1996 panelon 78-18-0804Hffonospghh [Mass/Vol]174 mg/dL Tththd141-246DrdOfvfgdSuburban Community Hospital & Brentwood HospitalComment on above:Performed By: #### CBCA, 25543-9, CMP, 77711-0, 1988-02, FEPR, TSHR, 2284-05, 2132-06, 07941-2, 2243-4#### [facility] ([id number]) [address], [address] [place], [place] [address]Gyenlwvafyu in HDL [Mass/Vol]55 mg/dLNormal>39ProEast [place] Regional HospitalComment on above:Result Comment: HDL <40 mg/dL - High Risk HDL > or = 40mg/dL- Desirable HDL >60 mg/dL - Negative Risk Performed By: #### ÁNGELA, 02205-7, CMP, , 1988-02, FEPR, TSHR, 2284-05, 2132-06, 82364-1, 2243-4#### [facility] ([id number]) [address], [address] [place], [place] [address]Sfssyleogem in LDL [Mass/Vol]106 mg/dLNormal<130ProEast [place] Regional HospitalComment on above:Result Comment: LDL <100 mg/dL - Desirable LDL >160 mg/dL - High Risk Performed By: #### ÁNGELA, 62717-2, CMP, , 1988-02, FEPR, TSHR, 2284-05, 2132-06, 06244-3, 2243-4#### [facility] ([id number]) [address], [address] [place], [place] [address]Zydlunuvjzi in VLDL [Mass/Vol]13 mg/dLNormal0-30ProEast [place] Regional HospitalComment on above:Performed By: #### ÁNGELA, 64889-0, CMP, 89406-4, , FEPR, TSHR, 2284-05, 2132-06, 86260-1, 2243-4#### [facility] ([id number]) [address], [address] [place], [place] [address]PZSFQQQXVFC:HDL3.4Gctseg6.0-5.0ProEast [place] Regional HospitalComment on above:Performed By: #### ÁNGELA, 45954-4, CMP, 84908-3, 1988-02, FEPR, TSHR, 2284-05, 2132-06, 80211-8, 2242-4#### [facility] ([id number]) [address] [place] [address], [address] [place], [place] [address]Jlovmwgdmuiw [Mass/Vol]64 mg/hMMeqtip98-336EljAerokp [facility] HospitalComment on above:Performed By: #### CBCA, 73961-4, CMP, 36564-0, 1988-02, FEPR, TSHR, 2284-05, 2132-06, 91189-1, 2242-4#### [facility] ([id number]) [address] [place] [address], [address] [place], [place] [address]CRY WITH REFLEXon 20-35-9060ODS6.95 uIU/mLNormal0.49-4.67 [facility] CenterComment on above:Performed By: #### CBCA, 50966-5, CMP, 76770-8, 1988-02, FEPR, TSHR, 2284-05, 2132-06, 15534-3, 2242-4#### [facility] ([id number]) [address] [place] [address], [address] [place], [place] [address]HPMFZRX B12on 46-25-4459Ldqaeekpg (Vitamin B12) [Mass/Vol]1413 pg/dTWunl252-114FrzKlwrau [facility] Medical CenterComment on above:Performed By: #### CBCA, 64455-8, CMP, 02412-5, 1988-02, FEPR, TSHR, 2284-05, 2132-06, 97122-8, 2242-4 #### [facility] ([id number]) [address] [place] [address], [address] [place], [place] [address]Xavdfuc D+Metabolites [Mass/Vol]on 32-91-2345OFRRRBT D 25 HYD TOT40.4 ng/tPSnghsd89-610FdjGjflvr [facility] CenterComment on above:Result Comment: Vitamin D status 25 [place] Vitamin D Deficiency <20 ng/mL Insufficiency 20-29 ng/mL Sufficiency 30-100 ng/mL Toxicity >100 ng/mL NOTE: A pediatric reference range has not been established by the product manufacturing professional of this kit. The [place] [employer] recommends a Vitamin D level of = or >20ng/mL in infants and children.Performed By: #### CBCA, 09820-6, CMP, 97722-7, 1987-5, FEPR, TSHR, 2284-8, 2132-9, 62664-4, 2243-4#### [facility] ([id number]) [address] [place], [place] [address] [address] [place], [place] [address]Witcrrzohci [Mass/volume] in Serum or PlasmaOrdered By: Miah Abreu on 65-02-7188Owjphkyrvlg [Mass/Vol]224 mg/kC707-215XrwqglqdzAdena Health SystemComment on above:Chol less than 200 mg/dl low riskChol 201-239 mg/dl borderline riskChol 240 mg/dl and greater high riskCholesterol in LDL Calc [Mass/Vol]Ordered By: Miah Abreu on 20-74-9397Krshwltdziu in LDL [Mass/Vol] [facility] HospitalComment on above:Test not performed Cholesterol in VLDL Calc [Mass/Vol]Ordered By: Miah Abreu on 10-11-2023 Cholesterol in VLDL [Mass/Vol]17 mg/dLTriHealth Good Samaritan Hospitalerum or plasma high density lipoprotein (HDL) cholesterol measurementOrdered By: Miah Abreu on 32-45-9370Bywwbocjanx in HDL [Mass/Vol]57 mg/mA55-52UhqyjdsftAdena Health SystemComment on above:HDL CHOL ATP-III CLASSIFICATION Cardiovascular RiskHDL > or equal to 60 mg/dL LOWHDL < 40 mg/dL HIGHSerum or plasma total cholesterol/high density lipoprotein (HDL) cholesterol mass rat Ordered By: Miah Abreu on 24-26-2702Limqrvqhnjw.total/Cholesterol in HDL [Mass ratio]TNPAdena Health SystemComment on above:Test not performedThyrotropin [Units/volume] in Serum or PlasmaOrdered By: Miah Abreu on 42-34-2007BBE Qn1.09 m[IU]/L0.45-5.33[facility] Triglyceride [Mass/volume] in Serum or PlasmaOrdered By: Miah Abreu on 71-35-2655Xincaemzcirs [Mass/Vol]89 mg/dL0-149[facility] Comment on above:TRIG ATP III CLASSIFICATIONTRIG less than 150 mg/dL NormalTRIG 150-199 mg/dL Borderline highTRIG 200-500 mg/dL High TRIG greater than 500 mg/dL Very highStandard traceable to the Center for Disease Conrtrol and Prevention (CDC) test method.Vitamin D+Metabolites [Mass/volume] in Serum or PlasmaOrdered By: Miah Abreu on 03-82-6786Xffcasa D+Metabolites [Mass/Vol]31.6 ng/cO68-203 [facility] SystemComment on above:VITAMIN D STATUS 25(OH)VITAMIN D RANGE (ng/mL) Deficient <20 Insufficient 20 to <67Ypcnxbjnok97 to 100Reference: Roque MF,Jhony NC, Janina LAYTON, et al. Evaluation,treatment, and prevention of vitamin D deficiency; an Endocrine Society clinical practice guideline. JCEM. 2010; 96(7):1911-30.Amphetamine Screen Ql (U)Ordered By: Miah Abreu on 90-45-3544Eealsyvnodlh Ql (U)Negative NegativeAdena Health SystemAutomated erythrocytes count in urine sediment (number/area)Ordered By: Miah Abreu on 03-42-8759QEA Auto (Urine sed) [#/Area]0-1 [HPF]0-4FCrystal Clinic Orthopedic CenterAutomated leukocytes count in urine sediment (number/area)Ordered By: Miah Abreu on 86-88-9421MJI Auto (Urine sed) [#/Area]Innumerable [HPF]0-4FCrystal Clinic Orthopedic Center Barbiturates [Presence] in Urine by Screen methodOrdered By: Miah Abreu on 07-78-1864Iqywbuzujbjx Screen Ql (U)NegativeNegativeAdena Health SystemBenzodiazepines Screen Ql (U)Ordered By: Miah Abreu on 10-10-2023 Benzodiazepines Ql (U)PositiveNegSumma Health Wad[facility] Benzoylecgonine [Presence] in Urine by Screen methodOrdered By: Miah Abreu on 51-69-4638Swinuvlgopgjlod Screen Ql (U)PositiveNegativeAdena Health SystemBilirubin Test strip Ql (U)Ordered By: Miah Abreu on 80-71-4347Hsqhijgjh Ql (U)NegativeNegativeAdena Health System Cannabinoids [Presence] in Urine by Screen methodOrdered By: Miah Abreu on 34-24-6329Icizsfklvpiy Screen Ql (U)PositiveNegSumma Health Wadsworth - Rittman Medical CenterComment on above:These are unconfirmed results and should not be used for legal purposes. Drug Cut-Off Concentration: AMPH 1000 ng/mL LEENA 200 ng/mL MARLYS 200 ng/mL COCM 300 ng/mL OP 300 ng/mL PCP 25 ng/mL THC 20 ng/mLColor Auto (U) Ordered By: Miah Abreu on 07-19-0362Daytn (U)YellowYellowAdena Health SystemKetones Auto test strip (U) [Mass/Vol]Ordered By: Miah Abreu on 58-70-2087Svcaqpw (U) [Mass/Vol]NegativeNegativeAdena Health SystemLaboratory - UrinalysisOrdered By: Miah Abreu on 40-27-3617Rzxwvlt casts LM Ql (Urine sed)None seen [LPF]0-8[facility] Nitrite Test strip Ql (U)Ordered By: Miah Abreu on 06-45-2958Jguughs Ql (U) NegativeNegativeAdena Health SystemOpiates [Presence] in Urine by Screen methodOrdered By: Miah Abreu on 28-21-0961Sypuhlr Screen Ql (U) NegativeNegSumma Health Wadsworth - Rittman Medical CenterPhencyclidine Screen Ql (U) Ordered By: Miah Abreu on 78-77-9548Biquqymwhdnnw Ql (U)NegativeNegRegency Hospital ToledoProtein Auto test strip (U) [Mass/Vol]Ordered By: Miah Abreu on 41-42-0674Gzdwpyt (U) [Mass/Vol]NegativeNegativeTriHealth Good Samaritan Hospitalpecific gravity Auto test strip (U) [Rel density]Ordered By: Miah Abreu on 82-85-7925Omamshrx gravity (U) [Rel density]1.012 1.001-1.030TriHealth Good Samaritan Hospitalquamous epithelial cells detection in urine sediment by light microscopyOrdered By: Miah Abreu on 10-10-2023 Epithelial cells.squamous LM Ql (Urine sed)0-1 [HPF]0-2FCrystal Clinic Orthopedic CenterUrine bacteria detection by automated methodOrdered By: Miah Abreu on 46-25-8306Aqzxjtfu Auto Ql (U)None seenNone SeenAdena Health SystemUrine clarity by refractometry automatedOrdered By: Miah Abreu on 30-39-1746Yjcnait Refractometry automated (U)CloudyClearFCrystal Clinic Orthopedic CenterUrine culture routineOrdered By: Miah Abreu on 10-10-2023 Bacteria identified Cx Nom (U)[facility] Health SystemUrine glucose measurement by automated test strip (mass/volume)Ordered By: Miah Abreu on 56-27-9016Ksmgcod Auto test strip (U) [Mass/Vol]Normal mg/dLNormOhioHealth Shelby HospitalUrine hemoglobin detection by automated test stripOrdered By: Miah Abreu on 39-46-4756Ezctkcdhzq Auto test strip Ql (U)Negative NegativeAdena Health SystemUrine leukocyte esterase detection by automated test stripOrdered By: Miah Abreu on 92-05-1146Atajgjopr esterase Auto test strip Ql (U)4+NegativeAdena Health SystemUrobilinogen Auto test strip (U) [Mass/Vol]Ordered By: Miah Abreu on 10-10-2023 Urobilinogen (U) [Mass/Vol]Normal mg/dLNormOhioHealth Shelby HospitalpH Auto test strip (U)Ordered By: Miah Abreu on 38-17-0691jI (U)5.5 [pH] 5.0-9.0A[facility] Health SystemAlanine aminotransferase [Enzymatic activity/volume] in Serum or PlasmaOrdered By: Adele Hunter on 76-84-8098EFO [Catalytic activity/Vol]97 U/L7-52A[facility] Health SystemAlbumin [Mass/volume] in Serum or Plasma by Bromocresol green (BCG) dye binding methoOrdered By: Adele Hunter on 31-38-2166Xyrysli BCG dye [Mass/Vol]3.6 g/dL3.5-5.7FCrystal Clinic Orthopedic CenterAlkaline phosphatase [Enzymatic activity/volume] in Serum or PlasmaOrdered By: Adele Hunter on 28-97-4560VWV [Catalytic activity/Vol]58 U/E22-945EeqbqolzlAdena Health SystemAspartate aminotransferase [Enzymatic activity/volume] in Serum or Plasma Ordered By: Adele Hunter on 05-42-9994TFS [Catalytic activity/Vol]94 U/L 13-39[facility] Health SystemBilirubin.direct [Mass/volume] in Serum or PlasmaOrdered By: Adele Hunter on 02-22-7516Nbfjbmfir.direct [Mass/Vol] 0.00 mg/dL0.03-0.18FCrystal Clinic Orthopedic CenterComment on above:If the DBIL is less than 0.1, IBIL is not able to becalculated.Bilirubin.total [Mass/volume] in Serum or PlasmaOrdered By: Adele Hunter on 08-25-2023 Bilirubin [Mass/Vol]0.3 mg/dL0.3-1.0[facility] SystemDiagnostic impression [Interpretation] in Specimen NarrativeOrdered By: Adele Schmitt on 69-70-5603Jfwomydfzo impression Molgen Nima (Unsp spec) [Interp]See comment.[facility] Health SystemComment on above:Positive HCV antibody screen with the presence of HCV RNAis consistent with active infection.Performed at: [facility] [address] [id number] Director: Rick Acevedo PhD, Phone: [phone] at: [facility] [id number]: Navarro Padilla MD, Phone: [phone] Calc (S) [Mass/Vol]Ordered By: Adele Schmitt on 99-75-3678Jmbwsava (S) [Mass/Vol]2.5 g/dLSouthwest General Health Center B virus surface Ag [Presence] in Serum or Plasma by Immunoassay Ordered By: Adele Hunter on 76-88-4994ARO surface Ag IA QlNegative NegativeSouthwest General Health Center C virus IgG Ab [Presence] in Serum or Plasma by ImmunoassayOrdered By: Adele Hunter on 12-36-9035HBV IgG IA QlReactiveNon ReactiveSouthwest General Health Center C virus RNA [log units/volume] (viral load) in Serum or Plasma by TISHA withOrdered By: Adele Hunter on 28-36-2719HKN RNA TISHA+probe [Log units/Vol][id number] [IU]/mL.A[facility]a Health SystemHCV RNA TISHA+probe [Log units/Vol]6.933. [facility] SystemComment on above:Result Units: log10 IU/mLNo Panel InformationOrdered By: Adele Hunter on 18-59-0965Paownjaaz A IgM AntibodyNegativeNegativeSouthwest General Health Center B Core IgM AntibodyNegativeNegativeSouthwest General Health Center C RNA Qnt (PCR) Test InfoSee comment.[facility] Health SystemComment on above:The quantitative range of this assay is 15 IU/mL to 100million IU/mL.Protein [Mass/volume] in Serum or PlasmaOrdered By: Adele Hunter on 08-25-2023 Protein [Mass/Vol]6.1 g/dL6.4-8.9Tri[facility] Good Samaritan Hospitalerum or plasma albumin/globulin mass ratioOrdered By: Adele Hunter on 08-25-2023 Albumin/Globulin [Mass ratio]1.4 {ratio}[facility] Samaritan Hospitalerum or plasma non-glucuronidated bilirubin measurement (mass/volume)Ordered By: Adele Hunter on 36-98-1216Oyszulofy.indirect [Mass/Vol]0.3 mg/dLAdena Health SystemC reactive protein [Mass/volume] in Serum or Plasma Ordered By: Olvin Rollins on 46-04-9591RZX [Mass/Vol]0.5 mg/dL0.0-0.5 [facility] SystemCholesterol [Mass/volume] in Serum or Plasma Ordered By: Olvin Rollins on 17-97-1072Rtcrkkbxoib [Mass/Vol]95 mg/dL 140-200A[facility] SystemComment on above:Chol less than 200 mg/dl low riskChol 201-239 mg/dl borderline riskChol 240 mg/dl and greater high riskCholesterol in LDL Calc [Mass/Vol]Ordered By: Olvin Rollins on 61-90-5723Whwmxdtwxsp in LDL [Mass/Vol]39 mg/dL0-100A[facility] SystemComment on above:LDL ATP III CLASSIFICATIONLDL less than 100 mg/dL OptimalLDL 100-129 mg/dL Near or above ubxzerpCLH996-958 mg/dL Borderline highLDL 160-189 mg/dL HighLDL greater than 189 mg/dL Very highCholesterol in VLDL Calc [Mass/Vol]Ordered By: Olvin Rollins on 09-98-5540Iomvzvrranb in VLDL [Mass/Vol]17 mg/dLAdena Health SystemErythrocyte sedimentation rate by Photometric methodOrdered By: Adele Hunter on 65-54-5774RAV Photometric method (Bld) [Velocity]16 mm/hr0-29TriHealth Good Samaritan Hospitalerum or plasma high density lipoprotein (HDL) cholesterol measurementOrdered By: Olvin Rollins on 81-48-9090Ughtvtamzbf in HDL [Mass/Vol]39 mg/gM59-46FcizavjnhAdena Health SystemComment on above:HDL CHOL ATP-III CLASSIFICATION Cardiovascular RiskHDL > or equal to 60 mg/dL LOWHDL < 40 mg/dL HIGHSerum or plasma total cholesterol/high density lipoprotein (HDL) cholesterol mass ratOrdered By: Olvin Rollins on 08-24-2023 Cholesterol.total/Cholesterol in HDL [Mass ratio]2.4 {ratio}<5.0A[facility] Health SystemThyrotropin [Units/volume] in Serum or PlasmaOrdered By: Olvin Rollins on 08-62-8790VZZ Qn1.54 m[IU]/L0.45-5.33[facility] SystemTriglyceride [Mass/volume] in Serum or PlasmaOrdered By: Olvin Rollins on 74-54-5597Sicnjzrtcpke [Mass/Vol]85 mg/dL0-149A[facility] SystemComment on above:TRIG ATP III CLASSIFICATIONTRIG less than 150 mg/dL NormalTRIG 150-199 mg/dL Borderline highTRIG 200-500 mg/dL High TRIG greater than 500 mg/dL Very highStandard traceable to the Center for Disease Conrtrol and Prevention (CDC) test method.Urate [Mass/volume] in Serum or PlasmaOrdered By: Olvin Rollins on 95-76-5748Jnrnw [Mass/Vol]4.1 mg/dL2.3-6.6FCrystal Clinic Orthopedic CenterVitamin D+Metabolites [Mass/volume] in Serum or PlasmaOrdered By: Olvin Rollins on 79-82-8464Vwvbixc D+Metabolites [Mass/Vol]34.0 ng/sA85-808GjethuhphAdena Health SystemComment on above:VITAMIN D STATUS 25(OH)VITAMIN D RANGE (ng/mL) Deficient <20 Insufficient 20 to <65Pacwypknpc60 to 100Reference: Roque MF,Jhony NC, Janina LAYTON, et al. Evaluation,treatment, and prevention of vitamin D deficiency; an Endocrine Society clinical practice guideline. JCEM. 2010; 96 (7):1911-30.Basophils Auto (Bld) [#/Vol]Ordered By: Gelacio Callahan on 04-26-2023 Basophils (Bld) [#/Vol]0.0 10*3/uL0.0-0.2FCrystal Clinic Orthopedic Center Basophils/100 WBC Auto (Bld)Ordered By: Gelacio Callahan on 04-26-2023 Basophils/100 WBC (Bld)1.2 %.A[facility] Health SystemEosinophils Auto (Bld) [#/Vol]Ordered By: Gelacio Callahan on 79-82-0324Pffspogofan (Bld) [#/Vol] 0.1 10*3/uL0.0-0.45A[facility] Health SystemEosinophils/100 WBC Auto (Bld)Ordered By: Gelacio Callahan on 64-71-7490Euaauunrjsj/100 WBC (Bld)3.2 %. [facility] Health SystemErythrocyte distribution width Auto (RBC) [Ratio]Ordered By: Gelacio Callahan on 33-18-1414Qdwwbsbtzvl distribution width (RBC) [Ratio]12.1 %11.9-15.3FCrystal Clinic Orthopedic CenterHematocrit Auto (Bld) [Volume fraction]Ordered By: Gelacio Callahan on 07-56-3511Wxvgzidgek (Bld) [Volume fraction]34.0 %34.0-46.4FCrystal Clinic Orthopedic CenterHemoglobin [Mass/volume] in BloodOrdered By: Gelacio Callahan on 77-23-7142Smowkvmxye (Bld) [Mass/Vol]11.5 g/dL11.8-15.4FCrystal Clinic Orthopedic CenterLeukocytes [#/volume] corrected for nucleated erythrocytes in Blood by Automated coun Ordered By: Gelacio Callahan on 62-78-3747SWS corrected for nucl RBC Auto (Bld) [#/Vol]3.8 10*3/uL3.8-11.6FCrystal Clinic Orthopedic CenterLymphocytes Auto (Bld) [#/Vol]Ordered By: Gelacio Callahan on 27-07-8292Mgmjjlrwuvi (Bld) [#/Vol] 1.3 10*3/uL1.00-4.8A[facility] Health SystemLymphocytes/100 WBC Auto (Bld)Ordered By: Gelacio Callahan on 93-36-3630Uyrqruoohzk/100 WBC (Bld)33.3 %. [facility] Auto (RBC) [Entitic mass]Ordered By: Gelacio Callahan on 63-61-5789ADM (RBC) [Entitic mass]33.1 pg24.7-34.3FOhioHealth Grove City Methodist HospitalHC Auto (RBC) [Mass/Vol]Ordered By: Gelacio Callahan on 34-13-6169YBEA (RBC) [Mass/Vol]33.9 g/dL32.0-35.0[facility] SystemMCV Auto (RBC) [Entitic vol]Ordered By: Gelacio Callahan on 17-40-1838OCZ (RBC) [Entitic vol]97.5 fO21-180JuoxprkyoAdena Health SystemMonocytes Auto (Bld) [#/Vol]Ordered By: Gelacio Callahan on 28-19-8300Thwmdvkba (Bld) [#/Vol]0.3 10*3/uL0.0-0.8[facility] SystemMonocytes/100 WBC Auto (Bld) Ordered By: Gelacio Callahan on 79-98-1716Fqqmbnmxy/100 WBC (Bld)8.2 %.[facility] Health SystemNeutrophils Auto (Bld) [#/Vol]Ordered By: Gelacio Callahan on 62-67-4929Fxyazrnrhkx (Bld) [#/Vol]2.1 10*3/uL1.8-7.7FCrystal Clinic Orthopedic CenterNeutrophils/100 WBC Auto (Bld)Ordered By: Gelacio Callahan on 74-45-0747Vkuawsljvkw/100 WBC (Bld)54.1 %.[facility] Nucleated erythrocytes [Presence] in Blood by Automated countOrdered By: Gelacio Callahan on 59-32-2764Pwlnimbho RBC Auto Ql (Bld)0.2 /100{WBC}0-0.5FCrystal Clinic Orthopedic CenterPlatelet mean volume Auto (Bld) [Entitic vol]Ordered By: Gelacio Callahan on 71-12-0464Utfkcdqw mean volume (Bld) [Entitic vol]8.4 fL 6.3-10.7FCrystal Clinic Orthopedic CenterPlatelets Auto (Bld) [#/Vol]Ordered By: Gelacio Callahan on 27-10-3873Glzsgbppc (Bld) [#/Vol]231 10*3/fN586-426EwkirenhfAdena Health SystemRBC Auto (Bld) [#/Vol]Ordered By: Gelacio Callahan on 66-30-3838HET (Bld) [#/Vol]3.49 10*6/uL3.60-5.00[facility] SystemWBC Auto (Bld) [#/Vol]Ordered By: Gelacio Callahan on 82-73-9004ETW (Bld) [#/Vol]3.8 10*3/uL3.8-11.6FCrystal Clinic Orthopedic CenterCalcium [Mass/volume] in Serum or PlasmaOrdered By: Adele Gorman on 50-92-3322Gjjtkkj [Mass/Vol] 7.9 mg/dL8.6-10.3FCrystal Clinic Orthopedic CenterCarbon dioxide, total [Moles/volume] in Serum or PlasmaOrdered By: Adele Gorman on 82-43-1893NB7 [Moles/Vol]28.9 mmol/L21.0-31.0[facility] SystemChloride [Moles/volume] in Serum or PlasmaOrdered By: Adele Gorman on 04-24-2023 Chloride [Moles/Vol]108 mmol/G21-820JbqcfdqpoAdena Health SystemCreatinine [Mass/volume] in Serum or PlasmaOrdered By: Adele Gorman on 04-24-2023 Creatinine [Mass/Vol]0.95 mg/dL0.60-1.20[facility] SystemGlucose [Mass/volume] in Serum or PlasmaOrdered By: Adele Gorman on 04-24-2023 Glucose [Mass/Vol]94 mg/dA73-935SdvkzwkdvAdena Health SystemComment on above:ADA recommended reference rangeRandom Glucose Reference Range is dependent on time and content of last meal. Glucose of more than 200 mg/dL in a nonstressed, ambulatory subject supports the diagnosisof Diabetes Mellitus.No Panel InformationOrdered By: Adele Gorman on 75-03-7676Dsobhauod GFR (CKD-EPI)> 60.0 mL/MinAdena Health SystemPharmacy Creatinine Clearance (Chem72.98[facility] SystemPotassium [Moles/volume] in Serum or PlasmaOrdered By: Adele Gorman on 09-37-6251Wjsworncc [Moles/Vol] 4.2 mmol/L3.5-5.1FMercy Health Allen Hospitalerum or plasma anion gap determinationOrdered By: Adele Gorman on 40-62-7235Bpwkh gap [Moles/Vol]7.3 mmol/L6.0-15.0[facility] Samaritan Hospitalodium [Moles/volume] in Serum or PlasmaOrdered By: Adele Gorman on 29-30-5141Bzmred [Moles/Vol]140 mmol/L 136-145[facility] SystemUrea nitrogen [Mass/volume] in Serum or PlasmaOrdered By: Adele Gorman on 52-70-8073Cvut nitrogen [Mass/Vol]14 mg/dL 7-25[facility] SystemBacteria identified Aer cx Nom (Unsp spec) Ordered By: Adele Gorman on 79-51-3378Mdcvsjqkuhw Wound CultureMethicillin Resis Staph AureusAdena Health SystemCholesterol [Mass/volume] in Serum or PlasmaOrdered By: Miah Abreu on 18-25-7390Iloyliwjune [Mass/Vol]136 mg/oN671-905DmidjuttwAdena Health SystemComment on above:Chol less than 200 mg/dl low riskChol 201-239 mg/dl borderline riskChol 240 mg/dl and greater high riskCholesterol in LDL Calc [Mass/Vol]Ordered By: Miah Abreu on 26-58-1586Crdlgktlplu in LDL [Mass/Vol]69 mg/dL0-100[facility] SystemComment on above:LDL ATP III CLASSIFICATIONLDL less than 100 mg/dL OptimalLDL 100-129 mg/dL Near or above kxxfsjpYKB558-167 mg/dL Borderline highLDL 160-189 mg/dL HighLDL greater than 189 mg/dL Very highCholesterol in VLDL Calc [Mass/Vol]Ordered By: Miah Abreu on 73-10-1941Llkeivvespu in VLDL [Mass/Vol]24 mg/dLTriHealth Good Samaritan Hospitalerum or plasma high density lipoprotein (HDL) cholesterol measurementOrdered By: Miah Abreu on 16-14-3621Eupkoqepcio in HDL [Mass/Vol]43 mg/gM32-59GczvwppxcAdena Health SystemComment on above:HDL CHOL ATP-III CLASSIFICATION Cardiovascular RiskHDL > or equal to 60 mg/dL LOWHDL < 40 mg/dL HIGHSerum or plasma total cholesterol/high density lipoprotein (HDL) cholesterol mass ratOrdered By: Miah Abreu on 57-01-5357Zoyunhpwtha.total/Cholesterol in HDL [Mass ratio]3.2 {ratio}<5.0[facility] SystemThyrotropin [Units/volume] in Serum or PlasmaOrdered By: Miah Abreu on 34-47-6097BNU Qn1.98 m[IU]/L0.45-5.33 [facility] SystemTriglyceride [Mass/volume] in Serum or Plasma Ordered By: Miah Abreu on 87-34-0330Dnpicubbukan [Mass/Vol]122 mg/dL0-149 [facility] SystemComment on above:TRIG ATP III CLASSIFICATIONTRIG less than 150 mg/dL NormalTRIG 150-199 mg/dL Borderline highTRIG 200-500 mg/dL High TRIG greater than 500 mg/dL Very highStandard traceable to the Center for Disease Conrtrol and Prevention (CDC) test method. Vitamin D+Metabolites [Mass/volume] in Serum or PlasmaOrdered By: Miah Abreu on 98-77-6931Ohesujv D+Metabolites [Mass/Vol]44.6 ng/gU42-415SlthbjrebAdena Health SystemComment on above:VITAMIN D STATUS 25(OH)VITAMIN D RANGE (ng/mL) Deficient <20 Insufficient 20 to <20Lncufnmvhs92 to 100Reference: Roque MF,Jhony MEDINA, Janina LAYTON, et al. Evaluation,treatment, and prevention of vitamin D deficiency; an Endocrine Society clinical practice guideline. JCEM. 2010; 96(7):1911-30.CBC AUTO DIFFon 21-85-0653ROVV #0.0 103/ulNormal0.0-0.1 [facility] SystemComment on above:Performed By: #### ETH, SALYC, ACET, CMP #### [facility] [address] [place], [place] [address] Dr. Erlinda Trotterphils/100 WBC (Bld)0.3 %Normal0.2-2.0[facility] Comment on above:Performed By: #### ETH, SALYC, ACET, CMP #### [facility] [address] [place], [place] [address] Dr. Yilan ChangEO #0.3 103/ulNormal0.0-0.7The [facility] SystemComment on above: Performed By: #### ETH, SALYC, ACET, CMP #### [facility] [address] [place] [address] Dr. Erlinda Petersonosinophils/100 WBC (Bld)3.7 %Normal0.9-7.0[facility] Comment on above:Performed By: #### ETH, SALYC, ACET, CMP #### [facility] [address] [place] [address] Dr. Erlinda Petersonrythrocyte distribution width (RBC) [Ratio]12.5 %Hauefs43.0-15.0 [facility] SystemComment on above:Performed By: #### ETH, SALYC, ACET, CMP #### [facility] [address] [place] [address] Dr. Erlinda RiveraHematocrit (Bld) [Volume fraction]37.5 %Kjwrlk68.0-48.0The [facility] SystemComment on above:Performed By: #### ETH, SALYC, ACET, CMP #### [facility] [address] [place] [address] Dr. Erlinda RiveraHemoglobin (Bld) [Mass/Vol]12.8 g/aXAhbshy05.0-16.0The [facility] Hospitalment on above:Performed By: #### ETH, SALYC, ACET, CMP #### [facility] [address] [place] [address] Dr. Erlinda Aaron #0.02 10e3/ulNormal0.00-0.03The [facility] Hospitalment on above:Performed By: #### ETH, SALYC, ACET, CMP #### [facility] [address] [place] [address] Dr. Erlinda Aaron %0.3 %Normal0.0-0.5The [facility] Hospitalment on above: Performed By: #### ETH, SALYC, ACET, CMP #### [facility] [address] [place] [address] Dr. Erlinda Boyer #2.0 103/ulNormal1.2-3.8The [facility] SystemComment on above:Performed By: #### ETH, SALYC, ACET, CMP #### [facility] [address] [place] [address] Dr. Erlinda Lunamphocytes/100 WBC (Bld)28.8 %Jsdcvt83.5-60.0The [facility] SystemComment on above:Performed By: #### ETH, SALYC, ACET, CMP #### [facility] [address] [place] [address] Dr. Erlinda Kirk DIFF REQNONormalThe [facility]als Health SystemComment on above: Performed By: #### ETH, SALYC, ACET, CMP #### [facility] [address] [place] [address] Dr. Erlinda Lepe (RBC) [Entitic mass]33.2 qgRzgvtb49.7-34.0The [facility] SystemComment on above:Performed By: #### ETH, SALYC, ACET, CMP #### [facility] [address] [place] [address] Dr. Erlinda Lepe (RBC) [Mass/Vol]34.1 g/zRSaquis78.9-35.2The [facility] Hospitalment on above:Performed By: #### ETH, SALYC, ACET, CMP #### [facility] [address] [place] [address] Dr. Erlinda Lepe (RBC) [Entitic vol]97.2 yEUhuzzp00.0-99.0The [facility] SystemComment on above:Performed By: #### ETH, SALYC, ACET, CMP #### [facility] [address] [place] [address] Dr. Erlinda Song #0.6 103/ulNormal0.3-0.8The [facility] SystemComment on above:Performed By: #### ETH, SALYC, ACET, CMP #### [facility] [address] [place] [address] Dr. Erlinda Awadocytes/100 WBC (Bld)7.8 %Normal1.7-12.0[facility] Comment on above:Performed By: #### ETH, SALYC, ACET, CMP #### [facility] [address] [place] [address] Dr. Erlinda Perez #4.2 103/ulNormal1.4-6.5The [facility] SystemComment on above:Performed By: #### ETH, SALYC, ACET, CMP #### [facility] [address] [place] [address] Dr. Erlinda Boggsutrophils/100 WBC (Bld)59.1 %Dgqppp81.0-75.0The [facility] SystemComment on above:Performed By: #### ETH, SALYC, ACET, CMP #### [facility] [address] [place] [address] Dr. Erlinda Cantrell mean volume (Bld) [Entitic vol]10.2 fLNormal9.5-13.5The [facility] SystemComment on above:Performed By: #### ETH, SALYC, ACET, CMP #### [facility] [address] [place] [address] Dr. Erlinda RiveraPLT270 103/mnApohrv238-717Ddg [facility] Hospitalment on above: Performed By: #### ETH, SALYC, ACET, CMP #### [facility] [address] [place] [address] Dr. Erlinda RiveraRBC3.86 106/ulCritically low4.20-5.40The [facility] Hospitalment on above:Performed By: #### ETH, SALYC, ACET, CMP #### [facility] [address] [place] [address] Dr. Erlinda RiveraWBC7.0 103/ulNormal4.0-11.0The [facility] Hospitalment on above: Performed By: #### ETH, SALYC, ACET, CMP #### [facility] [address] [place] [address] Dr. Erlinda RiveraCT ABD/PELVIS WO CONon [id number] ABD/PELVIS WO CONCT SCAN OF THE ABDOMEN AND PELVIS WITHOUT [...] Electronically authenticated by: Tressa BROWN Date: 2022-09-07 17:02NormFairfield Medical CenterCULTURE URINEon 76-52-4060INQAHAR URINECulture Observations: NO GROWTH.NormalThe [facility] Health SystemComment on above:Performed By: #### CVDTBH #### [facility] [address] [place] [address] Dr. Erlinda Fields URINE PROFILEon 12-85-4019Hlgiajsdo Ql (U)NegativeNormal NEGATIVEThe [facility]als Health SystemComment on above:Performed By: #### SEBASTIÁN ARTRO #### [facility] [address] [place] [address] Dr. Erlinda Lopez (U)CLEARNormalCLEARNorwalk Memorial HospitalComment on above: Performed By: #### KAELYN UMICRO #### [facility] [address] [place] [address] Dr. Erlinda Saul (U)LT. YELLOWNormalYELLOWThe Moy HospitalComment on above:Performed By: #### KAELYN, UMICRO #### [facility] [address] [address] [address] Erlinda Long micrscopic examination will be performed if indicated. NormalThe [facility] Health SystemComment on above:Performed By: #### ERUR, UMICRO #### [facility] [address] [address] [address] Erlinda RiveraGlucose Ql (U)NegativeNormalNEGATIVENorwalk Memorial HospitalComment on above:Performed By: #### JENNIFERR, UMICRO #### [facility] [address] [address] [address] Erlinda RiveraHemoglobin Ql (U)NegativeNormalNEGATIVEWayne Healthcare Main Campus on above:Performed By: #### KAELYN UMICRO #### [facility] [address] [place] [address] Dr. Erlinda RiveraKetones Ql (U)NegativeNormalNEGATIVENorwalk Memorial HospitalComment on above:Performed By: #### KAELYN UMICRO #### [facility] [address] [address] [address] Erlinda RiveraLEUKOCYTESMODERATEAbnormalNEGATIVENorwalk Memorial HospitalComment on above:Performed By: #### KAELYN UMICRO #### [facility] [address] [place] [address] Dr. Erlinda RiveraNitrite Ql (U)NegativeNormalNEGATIVENorwalk Memorial HospitalComment on above:Performed By: #### KAELYN, UMICRO #### [facility] [address] [address] [address] Erlinda RiverapH (U)6.0 [pH]Normal5-9Norwalk Memorial HospitalComment on above: Performed By: #### ERUR, UMICRO #### [facility] [address] [address] [address] Erlinda RiveraSPEC GRAVITY1.264Trelvj9.005-<=1.025The [facility] SystemComment on above:Performed By: #### SEBASTIÁN ARTRO #### [facility] [address] [place] [address] Dr. Erlinda Maher PROTEINNegativeNormalNEGATIVE/ TRACEThe [facility] Comment on above:Performed By: #### KAELYN UMICRO #### [facility] [address] [place] [address] Dr. Erlinda Cantu MICRO INDINDICATEDNormalThe [facility] SystemComment on above: Performed By: #### SEBASTIÁN ARTRO #### [facility] [address] [place] [address] Dr. Erlinda Weeksbilinogen Qn (U)0.2 {Shannan'U}/dLNormal0.2 - 1.0The [facility] SystemComment on above:Performed By: #### SEBASTIÁN ARTRO #### [facility] [address] [place] [address] Dr. Erlinda RiveraLIPASEon 75-92-5758Heoxgh [Catalytic activity/Vol]173.0 U/LNormal 73.0-393.0The [facility] SystemComment on above:Performed By: #### ETH, SALYC, ACET, CMP #### [facility] [address] [place] [address] Dr. Erlinda Flores HCG QUALon 72-10-1915EMQZWJITM, QUALNegativeNormalNEGATIVE The [facility]als Health SystemComment on above:Performed By: #### ETH, SALYC, ACET, CMP #### [facility] [address] [place] [address] Dr. Erlinda Ziegler 14(COMP METB)on 86-67-7297Zcqievn [Mass/Vol]3.8 g/dLNormal 3.4-5.0The [facility] SystemComment on above:Performed By: #### ETH, SALYC, ACET, CMP #### [facility] [address] [place] [address] Dr. Erlinda RiveraAlbumin/Globulin [Mass ratio]0.9 {ratio}NormalThe [facility]als Health SystemComment on above:Performed By: #### ETH, SALYC, ACET, CMP #### [facility] [address] [place] [address] Dr. Erlinda Higginbotham [Catalytic activity/Vol]75 U/IEcfnsq28-142Itp [facility] SystemComment on above:Performed By: #### ETH, SALYC, ACET, CMP #### [facility] [address] [place] [address] Dr. Erlinda Lucas [Catalytic activity/Vol]10 U/LCritically azr25-47Hmj [facility] SystemComment on above:Performed By: #### ETH, SALYC, ACET, CMP #### [facility] [address] [place] [address] Dr. Erlinda Wolf gap [Moles/Vol]9.7 mmol/LNormalThe [facility] SystemComment on above:Performed By: #### ETH, SALYC, ACET, CMP #### [facility] [address] [place] [address] Dr. Erlinda Lopez [Catalytic activity/Vol]21 U/CLzised61-52Jik [facility] SystemComment on above:Performed By: #### ETH, SALYC, ACET, CMP #### [facility] [address] [place] [address] Dr. Erlinda RiveraBilirubin [Mass/Vol]0.4 mg/dLNormal0.2-1.0The [facility] Comment on above:Performed By: #### ETH, SALYC, ACET, CMP #### [facility] [address] [place] [address] Dr. Erlinda RiveraCalcium [Mass/Vol]8.8 mg/dLNormal8.5-10.1[facility] Comment on above:Performed By: #### ETH, SALYC, ACET, CMP #### [facility] [address] [place] [address] Dr. Erlinda RiveraChloride [Moles/Vol]103 mmol/PEczwzd95-620Xqz [facility] Comment on above:Performed By: #### ETH, SALYC, ACET, CMP #### [facility] [address] [place] [address] Dr. Erlinda RiveraCO2 [Moles/Vol]28.8 mmol/AAgtlhv25.0-32.0The [facility] Comment on above:Performed By: #### ETH, SALYC, ACET, CMP #### [facility] [address] [place] [address] Dr. Erlinda RiveraCreatinine [Mass/Vol]0.86 mg/dLNormal0.55-1.02The [facility] SystemComment on above:Performed By: #### ETH, SALYC, ACET, CMP #### [facility] [address] [address] [address] Coffey ChangEGFR-AF NIGERIEN>60Normal>=60The [facility] SystemComment on above:Performed By: #### ETH, SALYC, ACET, CMP #### [facility] [address] [place] [address] Dr. Erlinda PetersonGFR-NON AF NIGERIEN>60Normal>=60The [facility] SystemComment on above:Performed By: #### ETH, SALYC, ACET, CMP #### [facility] [address] [place] [address] Dr. Erlinda RiveraGlobulin (S) [Mass/Vol]4.1 g/dLNormalThe [facility] SystemComment on above:Performed By: #### ETH, SALYC, ACET, CMP #### [facility] [address] [place] [address] Dr. Erlinda RiveraGlucose [Mass/Vol]79 mg/sZDbeyuw03-283Ovo [facility] Comment on above:Performed By: #### ETH, SALYC, ACET, CMP #### [facility] [address] [place] [address] Dr. Erlinda RiveraPotassium [Moles/Vol]4.5 mmol/LNormal3.5-5.1The [facility] Comment on above:Performed By: #### ETH, SALYC, ACET, CMP #### [facility] [address] [place] [address] Dr. Erlinda RiveraProtein [Mass/Vol]7.9 g/dLNormal6.4-8.2The [facility] Comment on above:Performed By: #### ETH, SALYC, ACET, CMP #### [facility] [address] [address] [address] Erlinda Townsendum [Moles/Vol]137 mmol/XCsnsla648-079Vpb [facility] Comment on above:Performed By: #### ETH, SALYC, ACET, CMP #### [facility] [address] [place] [address] Dr. Erlinda Ruiz nitrogen [Mass/Vol]12.0 mg/dLNormal7.0-18.0The [facility] SystemComment on above:Performed By: #### ETH, SALYC, ACET, CMP #### [facility] [address] [place] [address] Dr. Erlinda Ruiz nitrogen/Creatinine [Mass ratio]14.0 mg/mgNoMary Rutan HospitalComment on above:Performed By: #### ETH, SALYC, ACET, CMP #### [facility] [address] [place] [address] Dr. Erlinda Campoverde MICROSCOPIC ONLYon 78-62-4454KMHJALAANJUBVCwfqbledUOIP SEEN The [facility]als [facility] SystemComment on above:Performed By: #### GHASSAN ART #### [facility] [address] [place] [address] Dr. Erlinda Giraldo identified Cx Nom (U)INDICATEDNoMary Rutan HospitalComment on above:Performed By: #### SEBASTIÁN ARTRO #### [facility] [address] [place] [address] Dr. Erlinda Gardner SEENNormalNONE SEENNorwalk Memorial HospitalComment on above:Performed By: #### KAELYN UMDORCASRO #### [facility] [address] [place] [address] Dr. Erlinda Ballard LM Nom (Urine sed)NONE SEENNormalNONE SEENNorwalk Memorial HospitalComschoolcraft memorial hospital on above:Performed By: #### SEBASTIÁN ARTRO #### [facility] [address] [place] [address] Dr. Coffey ChangEpithelial cells LM Ql (Urine sed)MODERATEAbnormalNONE SEEN /RARE The [facility] SystemComment on above:Performed By: #### GHASSAN ART #### [facility] [address] [address] [address] Erlinda RiveraMUCOUSSMALLAbnormalNONE SEENThe [facility] Health SystemComschoolcraft memorial hospital on above:Performed By: #### GHASSAN ART #### [facility] [address] [address] [address] Erlinda RiveraEsydkKIE2-1Qafqikuv2-7Zdt [facility] SystemComschoolcraft memorial hospital on above:Performed By: #### GHASSAN ART #### [facility] [address] [address] [address] Erlinda RiveraZlabvTPL21-54YesyamimSYEL SEENThe [facility]als Health SystemComschoolcraft memorial hospital on above: Performed By: #### GHASSAN ART #### [facility] [address] [address] [address] Erlinda RiveraBilirubin Test strip Ql (U)Ordered By: Olvin Rollins on 31-59-0894Miyyathsq Ql (U)NegativeNegativeAdena Health SystemColor Auto (U)Ordered By: Olvin Rollins on 71-97-0644Srsmb (U)YellowYellow [facility] SystemKetones Auto test strip (U) [Mass/Vol]Ordered By: Olvin Rollins on 27-84-6003Jwjqxom (U) [Mass/Vol]NegativeNegative [facility] SystemNitrite Test strip Ql (U)Ordered By: Olvin Rollins on 37-08-9888Cicjdla Ql (U)NegativeNegativeAdena Health SystemProtein Auto test strip (U) [Mass/Vol]Ordered By: Olvin Rollins on 18-56-5415Hmipjmm (U) [Mass/Vol]NegativeNegative [facility]itan Hospitalpecific gravity Auto test strip (U) [Rel density]Ordered By: Olvin Rollins on 89-50-2612Etdgpxtc gravity (U) [Rel density]1.0061.001-1.030[facility] Health SystemUrine clarity by refractometry automatedOrdered By: Olvin Rollins on 56-00-9527Rrruscv Refractometry automated (U)ClearCleOhioHealth Van Wert HospitalUrine glucose measurement by automated test strip (mass/volume)Ordered By: Olvin Rollins on 78-81-9419Plnnvpl Auto test strip (U) [Mass/Vol]Normal mg/dLSelect Medical Ohiohealth Rehabilitation Hospital - DublinUrine hemoglobin detection by automated test stripOrdered By: Olvin Rollins on 33-68-2885Yfxajxqroa Auto test strip Ql (U)NegativeNegSumma Health Wadsworth - Rittman Medical CenterUrine leukocyte esterase detection by automated test stripOrdered By: Olvin Rollins on 08-31-2022 Leukocyte esterase Auto test strip Ql (U)NegativeNegSumma Health Wadsworth - Rittman Medical CenterUrobilinogen Auto test strip (U) [Mass/Vol]Ordered By: Olvin Rollins on 34-06-7616Vsekiagvmanl (U) [Mass/Vol]Normal mg/dLNoHolzer Medical Center – JacksonpH Auto test strip (U)Ordered By: Olvin Rollins on 20-05-2929pH (U)6.5 [pH]5.0-9.0[facility] Health SystemCholesterol [Mass/volume] in Serum or PlasmaOrdered By: Miah Abreu on 08-30-2022 Cholesterol [Mass/Vol]153 mg/nT307-369BfszrlxjrAdena Health SystemComment on above:Chol less than 200 mg/dl low riskChol 201-239 mg/dl borderline riskChol 240 mg/dl and greater high riskCholesterol in LDL Calc [Mass/Vol]Ordered By: Miah Abreu on 23-52-3981Riwwdlxpryx in LDL [Mass/Vol]82 mg/dL0-100[facility] Health SystemComment on above:LDL ATP III CLASSIFICATIONLDL less than 100 mg/dL OptimalLDL 100-129 mg/dL Near or above dmihbdgSZK932-503 mg/dL Borderline highLDL 160-189 mg/dL HighLDL greater than 189 mg/dL Very high Cholesterol in VLDL Calc [Mass/Vol]Ordered By: Miah Abreu on 08-30-2022 Cholesterol in VLDL [Mass/Vol]10 mg/dLAdena Health SystemNo Panel InformationOrdered By: Miah Abreu on 60-42-302758123623-Kxabudj Vitamin D Total 40.5 ng/xX03-890MfzwgpnagAdena Health SystemComment on above:VITAMIN D STATUS 25(OH)VITAMIN D RANGE (ng/mL) Deficient <20 Insufficient 20 to <24Mzgojpdies95 to 100Reference: Roque MF,Jhony NC, Janina LAYTON, et al. Evaluation,treatment, and prevention of vitamin D deficiency; an Endocrine Society clinical practice guideline. JCEM. 2010; 96(7):1911-30.Serum or plasma high density lipoprotein (HDL) cholesterol measurementOrdered By: Miah Abreu on 65-18-2254Vlgyyrxboyt in HDL [Mass/Vol]61 mg/wD52-07HbaizjsdeAdena Health SystemComment on above:HDL CHOL ATP-III CLASSIFICATION Cardiovascular RiskHDL > or equal to 60 mg/dL LOWHDL < 40 mg/dL HIGHSerum or plasma total cholesterol/high density lipoprotein (HDL) cholesterol mass rat Ordered By: Miah Abreu on 85-06-0252Chudmuvdbzv.total/Cholesterol in HDL [Mass ratio]2.5 {ratio}<5.0[facility] <= 0.005 mIU/L QnOrdered By: Miah Abreu on 39-00-6143BYB Qn0.98 m[IU]/L0.45-5.33 [facility] Health SystemTriglyceride [Mass/volume] in Serum or Plasma Ordered By: Miah Abreu on 19-40-8130Uxgqbihmcpiy [Mass/Vol]52 mg/dT80-385 [facility] SystemComment on above:TRIG ATP III CLASSIFICATIONTRIG less than 150 mg/dL NormalTRIG 150-199 mg/dL Borderline highTRIG 200-500 mg/dL High TRIG greater than 500 mg/dL Very highStandard traceable to the Center for Disease Conrtrol and Prevention (CDC) test method. Cholesterol [Mass/volume] in Serum or PlasmaOrdered By: Miah Abreu on 69-86-8983Slyaevrrsdh [Mass/Vol]156 mg/tC743-336EonvoetmsAdena Health SystemComment on above:Chol less than 200 mg/dl low risk Chol 201-239 mg/dl borderline risk Chol 240 mg/dl and greater high riskChol less than 200 mg/dl low riskChol 201- 239 mg/dl borderline riskChol 240 mg/dl and greater high riskCholesterol in LDL Calc [Mass/Vol]Ordered By: Miah Abreu on 30-32-8368Esgwjtrzwko in LDL [Mass/Vol]89 mg/dL0-100[facility] Health SystemComment on above:LDL ATP III CLASSIFICATION LDL less than 100 mg/dL Optimal LDL 100-129 mg/dL Near or above optimal LDL 130-159 mg/dL Borderline high LDL 160-189 mg/dL High LDL greater than 189 mg/dL Very highLDL ATP III CLASSIFICATIONLDL less than 100 mg/dL OptimalLDL 100-129 mg/dL Near or above sywfjbvKDE986-882 mg/dL Borderline highLDL 160-189 mg/dL HighLDL greater than 189 mg/dL Very highCholesterol in VLDL Calc [Mass/Vol]Ordered By: Miah Abreu on 83-46-2121Dkgwbvzlszm in VLDL [Mass/Vol]20 mg/dLAdena Health SystemNo Panel InformationOrdered By: Miah Abreu on 02-58-770277316826-Symxpft Vitamin D Total62.5 ng/aC73-362 [facility] SystemComment on above:VITAMIN D STATUS 25(OH)VITAMIN D RANGE (ng/mL) Deficient <20 Insufficient 20 to <30 Sufficient 30 to 100 Reference: Jhony Fu, Janina LAYTON, et al. Evaluation,treatment, and prevention of vitamin D deficiency; an Endocrine Society clinical practice guideline. JCEM. 2010; 96(7):1911-30.VITAMIN D STATUS 25(OH)VITAMIN D RANGE (ng/mL) Deficient <20 Insufficient 20 to <76Bferfflela66 to 100Reference: Jhony Fu, Janina LAYTON, et al. Evaluation,treatment, and prevention of vitamin D deficiency; an Endocrine Society clinical practice guideline. JCEM. 2011 [place]; 96(7):1911-30.Serum or plasma high density lipoprotein (HDL) cholesterol measurementOrdered By: Miah Abreu on 76-62-9042Lwbfzhckiip in HDL [Mass/Vol]47 mg/cP39-89QpzqdtxzdAdena Health SystemComment on above:HDL CHOL ATP-III CLASSIFICATION Cardiovascular Risk HDL > or equal to 60 mg/dL LOW HDL < 40 mg/dL HIGHHDL CHOL ATP-III CLASSIFICATION Cardiovascular RiskHDL > or equal to 60 mg/dL LOWHDL < 40 mg/dL HIGHSerum or plasma total cholesterol/high density lipoprotein (HDL) cholesterol mass ratOrdered By: Miah Abreu on 32-60-0779Njeeeikzhai.total/Cholesterol in HDL [Mass ratio]3.3 {ratio}<5.0 [facility] SystemTS DL <= 0.005 mIU/L QnOrdered By: Miah Abreu on 27-44-8300FOB Qn1.54 m[IU]/L0.45-5.33[facility] Triglyceride [Mass/volume] in Serum or PlasmaOrdered By: Miah Abreu on 73-84-3919Wkzqmoaeztpk [Mass/Vol]101 mg/oM33-400AmgkvdcryAdena Health SystemComment on above:TRIG ATP III CLASSIFICATION TRIG less than 150 mg/dL Normal TRIG 150-199 mg/dL Borderline high TRIG 200-500 mg/dL High TRIG greater than 500 mg/dL Very high Standard traceable to the Center for Disease Conrtrol and Prevention (CDC) test method.TRIG ATP III CLASSIFICATIONTRIG less than 150 mg/dL NormalTRIG 150-199 mg/dL Borderline highTRIG 200-500 mg/dL High TRIG greater than 500 mg/dL Very highStandard traceable to the Center for Disease Conrtrol and Prevention (CDC) test method.ACETAMINOPHENon 47-77-5245Bueejdrirumzo [Mass/Vol]ug/mLCritically low10.0-30.0The [facility] SystemComment on above:Performed By: #### ETH, SALYC, ACET, CMP #### [facility] [address] [place] [address] Dr. Erlinda RiveraSELECT [facility] AUTO DIFFon 37-62-2589EAJE #0.0 103/ulNormal0.0-0.1The [facility] SystemComment on above:Performed By: #### CBC #### [facility] [address] [place] [address] Dr. Erlinda RiveraBasophils/100 WBC (Bld)0.3 %Normal0.2-2.0The [facility] Comment on above:Performed By: #### CBC #### [facility] [address] [place] [address] Dr. Erlinda Bobo #0.1 103/ulNormal0.0-0.7The [facility] SystemComment on above: Performed By: #### CBC #### [facility] [address] [place] [address] Dr. Erlinda Petersonosinophils/100 WBC (Bld)1.7 %Normal0.9-7.0[facility] Comment on above:Performed By: #### CBC #### [facility] [address] [place] [address] Dr. Erlinda Petersonrythrocyte distribution width (RBC) [Ratio]11.9 %Opmqso40.0-15.0 The [facility] SystemComment on above:Performed By: #### CBC #### [facility] [address] [place] [address] Dr. Erlinda RiveraHematocrit (Bld) [Volume fraction]37.3 %Xlbwdl49.0-48.0The [facility] SystemComment on above:Performed By: #### CBC #### [facility] [address] [place] [address] Dr. Erlinda RiveraHemoglobin (Bld) [Mass/Vol]12.8 g/tHQtaukv45.0-16.0The [facility] SystemComment on above:Performed By: #### CBC #### [facility] [address] [place] [address] Dr. Erlinda Aaron #0.01 10e3/ulNormal0.00-0.03The [facility] SystemComment on above:Performed By: #### CBC #### [facility] [address] [address] [address] Erlinda Aaron %0.2 %Normal0.0-0.5The [facility] SystemComment on above: Performed By: #### CBC #### [facility] [address] [place] [address] Dr. Erlinda Boyer #1.5 103/ulNormal1.2-3.8The [facility] SystemComment on above:Performed By: #### CBC #### [facility] [address] [place] [address] Dr. Erlinda Cunhahocytes/100 WBC (Bld)25.7 %Salnsx91.5-60.0The [facility] SystemComment on above:Performed By: #### CBC #### [facility] [address] [place] [address] Dr. Erlinda DegrootUAL DIFF REQNONormalThe [facility]als Health SystemComment on above: Performed By: #### CBC #### [facility] [address] [place] [address] Dr. Erlinda Greenfield (RBC) [Entitic mass]33.3 ozGaqdmo42.7-34.0The [facility] SystemComment on above:Performed By: #### CBC #### [facility] [address] [place] [address] Dr. Erlinda Lepe (RBC) [Mass/Vol]34.3 g/oADidfay83.9-35.2The [facility] SystemComment on above:Performed By: #### CBC #### [facility] [address] [place] [address] Dr. Erlinda Lepe (RBC) [Entitic vol]97.1 gOJwsuxk12.0-99.0The [facility] SystemComment on above:Performed By: #### CBC #### [facility] [address] [place] [address] Dr. Erlinda Song #0.5 103/ulNormal0.3-0.8The [facility] SystemComment on above:Performed By: #### CBC #### [facility] [address] [place] [address] Dr. Erlinda Awadocytes/100 WBC (Bld)8.2 %Normal1.7-12.0The [facility] Comment on above:Performed By: #### CBC #### [facility] [address] [place] [address] Dr. Erlinda BoggsUT #3.7 103/ulNormal1.4-6.5The [facility] Health SystemComment on above:Performed By: #### CBC #### [facility] [address] [place] [address] Dr. Erlinda Boggsutrophils/100 WBC (Bld)63.9 %Uasgos49.0-75.0The [facility] Health SystemComment on above:Performed By: #### CBC #### [facility] [address] [place] [address] Dr. Erlinda Hsiehlet mean volume (Bld) [Entitic vol]10.7 fLNormal9.5-13.5The [facility] SystemComment on above:Performed By: #### CBC #### [facility] [address] [place] [address] Dr. Erlinda RiveraPLT224 103/gjJzxebq974-027Sws [facility] SystemComment on above: Performed By: #### CBC #### [facility] [address] [place] [address] Dr. Erlinda RiveraRBC3.84 106/ulCritically low4.20-5.40The [facility] SystemComment on above:Performed By: #### CBC #### [facility] [address] [place] [address] Dr. Erlinda RiveraWBC5.7 103/ulNormal4.0-11.0The [facility] SystemComment on above: Performed By: #### CBC #### [facility] [address] [place] [address] Dr. Erlinda PatelLTBEVERLY URINEon 98-37-1493PLEZMTH URINECulture Observations: NO GROWTH.NormalThe [facility] SystemComment on above:Performed By: #### CVDTBH #### [facility] [address] [place] [address] Dr. Erlinda RiveraCovid-19 PCR (CVDTB)on 31-99-1509ZUFJ-CoV-2 (COVID-19) RNA TISHA+probe Ql (Unsp spec)Not detectedNormalNOT DETECTEDNorwalk Memorial Hospital Comment on above:Result Comment: When diagnostic testing is negative, the [...] for this test is supported by the [place] Health and Human Service's declaration that circumstances exist to justify the emergency use of in vitro diagnostics for the detection and/or diagnosis of the virus that causes COVID-19. This EUA will remain in effect for the duration of the COVID-19 declaration justifying emergency of IVDs, unless it is terminated or revoked by the FDA (after which the test may no longer be used).Performed By: #### CVDTB #### [facility] [address] [place] [address] Dr. Erlinda Tolliver SCREEN RAPID (URINE)on [id number]Z [facility] HospitalComment on above:Performed By: #### SEBASTIÁN ARTRO #### [facility] [address] [place] [address] Dr. Erlinda RiveraBARNegativeNormalNEGATIVENorwalk Memorial HospitalComment on above: Performed By: #### SEBASTIÁN ARTRO #### [facility] [address] [place] [address] Dr. Erlinda RiveraBUPNegativeNormalNEGATIVENorwalk Memorial HospitalComment on above: Performed By: #### KAELYN UMICRO #### [facility] [address] [place] [address] Dr. Erlinda RiveraBZOPositiveAbnormalNEGATIVENorwalk Memorial HospitalComment on above: Performed By: #### KAELYN UMICRO #### [facility] [address] [address] [address] Erlinda BlandonCPositiveAbnormalNEGATIVEDayton Osteopathic Hospital on above: Performed By: #### KAELYN UMICRO #### [facility] [address] [place] [address] Dr. Erlinda ReedGenesis HospitalComment on above: Result Comment: AMP (Amphetamine): 500ng/mL, BAR (Barbituates): 200 ng/mL, BZO (Benzodiazepines): 150 ng/mL, BUP (Buprenorphine): 10 ng/mL, DOUGLAS (Cocaine): 150 ng/mL, mAMP (Methamphetamine): 500 ng/mL, MTD (Methadone): 200 ng/mL, OPI (Opiates): 100 ng/mL, OXY (Oxycodone): 100 ng/mL, PCP (Phencyclidine): 25 ng/mL, PPX (Propoxyphene): 300 ng/mL, THC (Cannabinoids): 50 ng/mL, TCA (Trycyclic Antidepressants): 300 ng/mLPerformed By: #### ESTHER ARTICRO #### [facility] [address] [place] [address] Dr. Erlinda RiveraDRUG CUT HEADERDRUG CLASS TEST SYSTEM CUT-OFF CONCENTRATIONS ARE FOLLOWS:NormalThe [facility] on above:Performed By: #### ESTHER ARTICRO #### [facility] [address] [place] [address] Dr. Erlinda RiveramAMPNegativeNormalNEGATIVENorwalk Memorial HospitalComschoolcraft memorial hospital on above: Performed By: #### KAELYN UMICRO #### [facility] [address] [place] [address] Dr. Erlinda PriceDNegativeNormalNEGThe [facility] on above: Performed By: #### KAELYN UMICRO #### [facility] [address] [place] [address] Dr. Erlinda AndrewsiveNormalNEGATIVEThe [facility] HospitalComment on above: Performed By: #### KAELYN UMICRO #### [facility] [address] [address] [address] Erlinda RiveraOXYNegativeNormalNEGATIVENorwalk Memorial HospitalComschoolcraft memorial hospital on above: Performed By: #### KAELYN UMICRO #### [facility] [address] [place] [address] Dr. Erlinda RiveraPCPNegativeNormalNEGATIVENorwalk Memorial HospitalComment on above: Performed By: #### KAELYN UMICRO #### [facility] [address] [place] [address] Dr. Erlinda RiveraPPXNegativeNormalNEGATIVENorwalk Memorial HospitalComschoolcraft memorial hospital on above: Performed By: #### KAELYN UMICRO #### [facility] [address] [place] [address] Dr. Erlinda RiveraTCANegativeNormalNEGATIVENorwalk Memorial HospitalComment on above: Performed By: #### KAELYN UMICRO #### [facility] [address] [place] [address] Dr. Erlinda BurrCPositiveAbnormalNEGATIVENorwalk Memorial HospitalComschoolcraft memorial hospital on above: Performed By: #### KAELYN UMICRO #### [facility] [address] [place] [address] Dr. Erlinda Fields URINE PROFILEon [id number] Ql (U)NegativeNormal NEGATIVENorwalk Memorial HospitalComment on above:Performed By: #### KAELYN UMICRO #### [facility] [address] [place] [address] Dr. Erlinda Lopez (U)SL CLOUDYAbnormalCLEARThe [facility] SystemComment on above:Performed By: #### KAELYN UMICRO #### [facility] [address] [place] [address] Dr. Erlinda Saul (U)LT. YELLOWNormalYELLOWNorwalk Memorial HospitalComment on above:Performed By: #### KAELYN UMICRO #### [facility] [address] [place] [address] Dr. Erlinda Long micrscopic examination will be performed if indicated. NormalThe [facility]anza HospitalComment on above:Performed By: #### SEBASTIÁN ARTRO #### [facility] [address] [place] [address] Dr. Erlinda RiveraGlucose Ql (U)NegativeNormalNEGATIVEJ.W. Ruby Memorial Hospital HospitalComment on above:Performed By: #### KAELYN UMICRO #### [facility] [address] [place] [address] Dr. Erlinda RiveraHemoglobin Ql (U)NegativeNormalNEGATIVENorwalk Memorial Hospital Comment on above:Performed By: #### KAELYN UMDORCASRO #### [facility] [address] [place] [address] Dr. Erlinda RiveraKetones Ql (U)NegativeNormalNEGATIVENorwalk Memorial HospitalComment on above:Performed By: #### KAELYN UMICRO #### [facility] [address] [place] [address] Dr. Erlinda RiveraLEUKOCYTESSMALLAbnormalNEGATIVENorwalk Memorial HospitalComment on above:Performed By: #### KAELYN UMDORCASRO #### [facility] [address] [place] [address] Dr. Erlinda RiveraNitrite Ql (U)NegativeNormalNEGATIVENorwalk Memorial HospitalComment on above:Performed By: #### KAELYN UMICRO #### [facility] [address] [place] [address] Dr. Erlinda RiverapH (U)6.0 [pH]Normal5-9The [facility] SystemComment on above: Performed By: #### KAELYN UMICRO #### [facility] [address] [place] [address] Dr. Erlinda RiveraSPEC GRAVITY1.657Crfjzj9.005-<=1.025The [facility] SystemComment on above:Performed By: #### KAELYN UMDORCASRO #### [facility] [address] [place] [address] Dr. Erlinda Maher PROTEINNegativeNormalNEGATIVE/ TRACEThe [facility] Comment on above:Performed By: #### GHASSAN ART #### [facility] [address] [place] [address] Dr. Erlinda Cantu MICRO INDINDICATEDNoMary Rutan HospitalComment on above: Performed By: #### SEBASTIÁN ARTRO #### [facility] [address] [place] [address] Dr. Erlinda Weeksbilinogen Qn (U)0.2 {Shannan'U}/dLNormal0.2 - 1.0The [facility] SystemComment on above:Performed By: #### SEBASTIÁN ARTRO #### [facility] [address] [place] [address] Dr. Erlinda ZepedaANOL (BLD ALC)on 06-18-3787CAQ NOTENOTE: 80 mg/dl is the legal limit for a blood alcohol levelNoMary Rutan HospitalComment on above: Performed By: #### ETH, SALYC, ACET, CMP #### [facility] [address] [place] [address] Dr. Erlinda Petersonthanol [Mass/Vol]mg/dLNoMary Rutan HospitalComment on above:Performed By: #### ETH, SALYC, ACET, CMP #### [facility] [address] [place] [address] Dr. Erlinda RiveraPREGNANCY URon [id number], QUALNegativeNormalNEGATIVEThe [facility] SystemComment on above:Performed By: #### PREGU #### [facility] [address] [place] [address] Dr. Erlinda RiveraPROF 14(COMP METB)on 58-32-5524Xpzwdhi [Mass/Vol]4.2 g/dLNormal 3.4-5.0The [facility] SystemComment on above:Performed By: #### ETH, SALYC, ACET, CMP #### [facility] [address] [place] [address] Dr. Erlinda RiveraAlbumin/Globulin [Mass ratio]1.2 {ratio}NormalThe [facility] SystemComment on above:Performed By: #### ETH, SALYC, ACET, CMP #### [facility] [address] [place] [address] Dr. Erlinda Higginbotham [Catalytic activity/Vol]71 U/ZUokloo98-880Oft [facility] SystemComment on above:Performed By: #### ETH, SALYC, ACET, CMP #### [facility] [address] [place] [address] Dr. Erlinda Lucas [Catalytic activity/Vol]91 U/LCritically lgcl34-93Lmu [facility] SystemComment on above:Performed By: #### ETH, SALYC, ACET, CMP #### [facility] [address] [place] [address] Dr. Erlinda RiveraAnion gap [Moles/Vol]13.9 mmol/LNormalThe [facility] Comment on above:Performed By: #### ETH, SALYC, ACET, CMP #### [facility] [address] [place] [address] Dr. Erlinda Lopez [Catalytic activity/Vol]81 U/LCritically klwz71-43Llk [facility] SystemComment on above:Performed By: #### ETH, SALYC, ACET, CMP #### [facility] [address] [place] [address] Dr. Erlinda RiveraBilirubin [Mass/Vol]0.4 mg/dLNormal0.2-1.0The [facility] Comment on above:Performed By: #### ETH, SALYC, ACET, CMP #### [facility] [address] [place] [address] Dr. Erlinda RiveraCalcium [Mass/Vol]9.1 mg/dLNormal8.5-10.1The [facility] Comment on above:Performed By: #### ETH, SALYC, ACET, CMP #### [facility] [address] [place] [address] Dr. Erlinda RiveraChloride [Moles/Vol]105 mmol/LEcvbmf75-117Qiu [facility] Comment on above:Performed By: #### ETH, SALYC, ACET, CMP #### [facility] [address] [place] [address] Dr. Erlinda RiveraCO2 [Moles/Vol]28.3 mmol/LFniyyy19.0-32.0The [facility] Comment on above:Performed By: #### ETH, SALYC, ACET, CMP #### [facility] [address] [place] [address] Dr. Erlinda RiveraCreatinine [Mass/Vol]0.86 mg/dLNormal0.55-1.02[facility] HospitalComment on above:Performed By: #### ETH, SALYC, ACET, CMP #### [facility] [address] [place] [address] Dr. Erlinda PetersonGFR-AF NIGERIEN>60Normal>=60The [facility] SystemComment on above:Performed By: #### ETH, SALYC, ACET, CMP #### [facility] [address] [place] [address] Dr. Erlinda PetersonGFR-NON AF NIGERIEN>60Normal>=60The [facility] SystemComment on above:Performed By: #### ETH, SALYC, ACET, CMP #### [facility] [address] [place] [address] Dr. Erlinda RiveraGlobulin (S) [Mass/Vol]3.4 g/dLNormalThe [facility] SystemComment on above:Performed By: #### ETH, SALYC, ACET, CMP #### [facility] [address] [place] [address] Dr. Erlinda RiveraGlucose [Mass/Vol]94 mg/tFQwwmme26-172Vut [facility] Comment on above:Performed By: #### ETH, SALYC, ACET, CMP #### [facility] [address] [place] [address] Dr. Erlinda RiveraPotassium [Moles/Vol]4.2 mmol/LNormal3.5-5.1[facility] Comment on above:Performed By: #### ETH, SALYC, ACET, CMP #### [facility] [address] [place] [address] Dr. Erlinda RiveraProtein [Mass/Vol]7.6 g/dLNormal6.4-8.2The [facility] Comment on above:Performed By: #### ETH, SALYC, ACET, CMP #### [facility] [address] [address] [address] Erlinda RiveraSodium [Moles/Vol]143 mmol/VEbnmfo226-786Vzd [facility] Comment on above:Performed By: #### ETH, SALYC, ACET, CMP #### [facility] [address] [address] [address] Erlinda RiveraUrea nitrogen [Mass/Vol]10.0 mg/dLNormal7.0-18.0The [facility] SystemComment on above:Performed By: #### ETH, SALYC, ACET, CMP #### [facility] [address] [place] [address] Dr. Erlinda Ruiz nitrogen/Creatinine [Mass ratio]11.6 mg/mgNoMary Rutan HospitalComment on above:Performed By: #### ETH, SALYC, ACET, CMP #### [facility] [address] [place] [address] Dr. Erlinda ZhaoICYLATEon 54-74-3203DNZNUZNJDO1.5 mg/dLNormal<=19.9The [facility] SystemComment on above:Performed By: #### ETH, SALYC, ACET, CMP #### [facility] [address] [place] [address] Dr. Erlinda Campoverde MICROSCOPIC ONLYon 61-45-8898SOXXRFYJXXJLHXztftfgzIKRK SEEN The [facility]als [facility] SystemComment on above:Performed By: #### KAELYN UMICRO #### [facility] [address] [place] [address] Dr. Erlinda Giraldo identified Cx Nom (U)INDICATEDNoMary Rutan HospitalComment on above:Performed By: #### KAELYN UMICRO #### [facility] [address] [place] [address] Dr. Yilan ChangCASTNONE SEENNormalNONE SEENDayton Osteopathic Hospital on above:Performed By: #### ERUR, UMICRO #### [facility] [address] [place] [address] Dr. Erlinda RiveraCrystals LM Nom (Urine sed)NONE SEENNormalNONE SEENNorwalk Memorial HospitalComschoolcraft memorial hospital on above:Performed By: #### ERUR, UMICRO #### [facility] [address] [place] [address] Dr. Erlinda Petersonpithelial cells LM Ql (Urine sed)FEWAbnormalNONE SEEN /RAREThe [facility] Health SystemComschoolcraft memorial hospital on above:Performed By: #### ERUR, UMICRO #### [facility] [address] [place] [address] Dr. Erlinda RiveraMUCOUSNONE SEENNormalNONE SEENNorwalk Memorial HospitalComschoolcraft memorial hospital on above:Performed By: #### KAELYN UMICRO #### [facility] [address] [place] [address] Dr. Erlinda RomanXsawoWZG3-8Qkgghl4-4Nrl [facility] SystemComschoolcraft memorial hospital on above:Performed By: #### KAELYN, UMICRO #### [facility] [address] [place] [address] Dr. Erlinda RiveraWBC2-5AbnormalNONE SEENNorwalk Memorial HospitalComschoolcraft memorial hospital on above: Performed By: #### ERUBerhane, UMICRO #### [facility] [address] [place] [address] Dr. Erlinda RiveraHCV RNA,Quant,PCRon 34-66-2980TPE Quant99,000 IU/mLNormalMerHospital for Special CareComment on above:Performed By: #### HCVQN #### [address] [address] [employer] Department Chair: Gee Soriano MD [facility] [address] [place] [address] [place] [address] [employer] Department Chair: Kelli Martel MD #### CBC, TSH, CP #### [facility] [address] [place] [address] Dr[address] [place], [place] [address] [employer] Department Chair: Kelli Martel MD #### HIVCMB, PHEP, TREP, SWCGP, FT4 #### [address] [address] [employer] Department Chair: JULIO Martell RNA,QuantDetectedAbnormalNOTDEOhioHealth Riverside Methodist HospitalComment on above:Result Comment: HCV RNA DETECTED This test is [...] 1-6. Results reported to the appropriate Health DepartmentPerformed By: #### HCVQN #### [address] [address] [employer] Department Chair: Gee Soriano MD [address] [place], [place] [address] [employer] Department Chair: Kelli Martel MD #### CBC, TSH, CP #### [address] [place] [address] [employer] Department Chair: Kelli Martel MD #### HIVCMB, PHEP, TREP, SWCGP, FT4 #### [address] [address] [employer] Department Chair: NATALIA MartellV,RNA Log5.00 Log IU/mLNSt. Elizabeth HospitalComment on above:Performed By: #### HCVQN #### [facility] [address] [place] [address] [employer] Department Chair: Gee Soriano MD [address] [place] [address] [employer] Department Chair: Kelli Martel MD #### CBC, TSH, CP #### [address] [place] [address] [employer] Department Chair: Kelli Martel MD #### HIVCMB, PHEP, TREP, SWCGP, FT4 #### [address] [address] [employer] Department Chair: MAKENNA Martellhlamydia/GC,DNA Ampon 22-86-7303Zqhjgeogq Probe NegativeNormalNEGKettering Health SpringfieldComment on above:Result Comment: CHLAMYDIA TRACHOMATIS DNA not detected by nucleic acid [...] positive results by an alternative nucleic acid target.Performed By: #### HCVQN #### [address] [address] [employer] Department Chair: Gee Soriano MD [address] [place], [place] [id number] [employer] Department Chair: Kelli Martel MD #### CBC, TSH, CP #### [address] [place], [place] [id number] [employer] Department Chair: Kelli Martel MD #### HIVCMB, PHEP, TREP, SWCGP, FT4 #### [address] [address] [employer] Department Chair: Gee Soriano MDGonorrhea ProbeNegativeNormalNEGKettering Health SpringfieldComment on above:Result Comment: NEISSERIA GONORRHOEAE DNA not detected by nucleic acid [...] positive results by an alternative nucleic acid target.Performed By: #### HCVQN #### [address] [address] [employer] Department Chair: Gee Soriano MD [address] [place] [address] [employer] Department Chair: Kelli Martel MD #### CBC, TSH, CP #### [address] [place] [address] [employer] Department Chair: Kelli Martel MD #### HIVCMB, PHEP, TREP, SWCGP, FT4 #### [address] [address] [employer] Department Chair: Breanna Martell 40-16-1718Hcnsdznkvfc distribution width (RBC) [Ratio]12.4 %Ffeafk79.8-14.4[facility] SpringfieldComment on above: Performed By: #### HCVQN #### [address] [address] [employer] Department Chair: Gee Soriano MD [address] [place] [phone] [employer] Department Chair: Kelli Martel MD #### CBC, TSH, CP #### [address] [place] [phone] [employer] Department Chair: Kelli Martel MD #### HIVCMB, PHEP, TREP, SWCGP, FT4 #### [address] [address] [employer] Department Chair: Gee Soriano MDHematocrit (Bld) [Volume fraction]39.3 %Normal 36.3-47.1MercHartford HospitalComment on above:Performed By: #### HCVQN #### [address] [address] [employer] Department Chair: Gee Soriano MD [address] [place] [address] [employer] Department Chair: Kelli Martel MD #### CBC, TSH, CP #### [address] [place] [address] [employer] Department Chair: Kelli Martel MD #### HIVCMB, PHEP, TREP, SWCGP, FT4 #### [address] [address] [employer] Department Chair: Gee Soriano MDHemoglobin (Bld) [Mass/Vol]12.5 g/dLNormal 11.9-15.1MUC HealthComment on above:Performed By: #### HCVQN #### [address] [address] [employer] Department Chair: Gee Soriano MD [address] [place] [phone] [employer] Department Chair: Kelli Martel MD #### CBC, TSH, CP #### [address] [place] [address] [employer] Sciences Department Chair: Kelli Martel MD #### HIVCMB, PHEP, TREP, SWCGP, FT4 #### [address] [address] [employer] Department Chair: VANNA MartellCH (RBC) [Entitic mass]33.5 avBwkvqh44.2-33.5 [facility] SpringfieldComment on above:Performed By: #### HCVQN #### [address] [address] [employer] Department Chair: Gee Soriano MD [address] [place] [address] Natural Sciences Department Chair: Kelli Martel MD #### CBC, TSH, CP #### [address] [place] [address] [employer] Sciences Department Chair: Kelli Martel MD #### HIVCMB, PHEP, TREP, SWCGP, FT4 #### [address] [address] Natural Sciences Department Chair: VANNA MartellCHC (RBC) [Mass/Vol]31.8 g/cJMxnwmn67.4-34.8 [facility] SpringfieldComment on above:Performed By: #### HCVQN #### [address] [address] [employer] Department Chair: Gee Soriano MD [address] [phone] [employer] Department Chair: Kelli Martel MD #### CBC, TSH, CP #### [address] [place], [place] [phone] [employer] Department Chair: Kelli Martel MD #### HIVCMB, PHEP, TREP, SWCGP, FT4 #### [facility] [address] [place] [address] Natural Sciences Department Chair: VANNA MartellCV (RBC) [Entitic vol]105.4 sOMotb23.6-102.9 [facility] SpringfieldComment on above:Performed By: #### HCVQN #### [facility] [address] [place] [address] [employer] Department Chair: Gee Soriano MD [address] [place] [address] Natural Sciences Department Chair: Kelli Martel MD #### CBC, TSH, CP #### [address] [place], [place] [id number] [employer] Department Chair: Kelli Martel MD #### HIVCMB, PHEP, TREP, SWCGP, FT4 #### [address] [address] Natural Sciences Department Chair: Gee Soriano MDNRBC Automated0.0 per 100 WBCNormal0.0[facility] SpringfieldComschoolcraft memorial hospital on above:Performed By: #### HCVQN #### [address] [address] [employer] Department Chair: Gee Soriano MD [address] [place] [address] [employer] Department Chair: Kelli Martel MD #### CBC, TSH, CP #### [address] [phone] ( [employer] Department Chair: Kelli Martel MD #### HIVCMB, PHEP, TREP, SWCGP, FT4 #### [address] [address] Natural Sciences Department Chair: Chuck Martell mean volume (Bld) [Entitic vol]10.6 fL Normal8.1-13.5[facility] on above:Performed By: #### HCVQN #### [address] [address] [employer] Department Chair: Gee Soriano MD [address] [place] [address] [employer] Sciences Department Chair: Kelli Martel MD #### CBC, TSH, CP #### [address] [phone] [employer] Department Chair: Kelli Martel MD #### HIVCMB, PHEP, TREP, SWCGP, FT4 #### [facility] [address] [place] [address] Natural Sciences Department Chair: Alexandria Martelltevenice (Bld) [#/Vol]280 10*3/eGZorfht804-996 [facility] SpringfieldComment on above:Performed By: #### HCVQN #### [facility] [address] [place] [address] [employer] Sciences Department Chair: Gee Soriano MD [address] [place] [address] Natural Sciences Department Chair: Kleli Martel MD #### CBC, TSH, CP #### [address] [place] [address] [employer] Department Chair: Kelli Martel MD #### HIVCMB, PHEP, TREP, SWCGP, FT4 #### [address] [address] Natural Sciences Department Chair: CELENA Martell (Bld) [#/Vol]3.73 10*6/uLLow3.95-5.11[facility] SpringfieldComment on above:Performed By: #### HCVQN #### [address] [address] [employer] Department Chair: Gee Soriano MD [address] [place] [address] [employer] Department Chair: Kelli Martel MD #### CBC, TSH, CP #### [address] [place] [address] [employer] Sciences Department Chair: Kelli Martel MD #### HIVCMB, PHEP, TREP, SWCGP, FT4 #### [facility] [address] [place] [address] Natural Sciences Department Chair: Gee Soriano MDWMINERVA (Bld) [#/Vol]4.6 10*3/uLNormal3.5-11.3MUC HealthComment on above:Performed By: #### HCVQN #### [address] [id number] Natural Sciences Department Chair: Gee Soriano MD [facility] [address] [place] [address] Natural Sciences Department Chair: Kelli Martel MD #### CBC, TSH, CP #### [facility] [address] [place], [place] [id number] Natural Sciences Department Chair: Kelli Martel MD #### HIVCMB, PHEP, TREP, SWCGP, FT4 #### [facility] [address] [place], [place] [id number] Natural Sciences Department Chair: Gee Soriano MDHematocrit (Bld) [Volume fraction]39.3 %36.3 - 47.1 %[facility]ARE HOSPITALHemoglobin (Bld) [Mass/Vol]12.5 g/dL11.9 - 15.1 g/dLBON OHIO VALLEY HOSPITALInterpretation and review of laboratory results AbnormalJOHNSTON MEMORIAL HOSPITALH (RBC) [Entitic mass]33.5 pg25.2 - 33.5 pgJOHNSTON MEMORIAL HOSPITALHC (RBC) [Mass/Vol]31.8 g/dL28.4 - 34.8 g/dLBON MERCY HEALTH KINGS MILLS HOSPITALV (RBC) [Entitic vol]105.4 mRNoay72.6 - 102.9 fLLAKE TAYLOR TRANSITIONAL CARE HOSPITALNRBC Automated0.00.0 per 100 WBCLAKE TAYLOR TRANSITIONAL CARE HOSPITALPlatelet distribution width (Bld) [Ratio]12.4 %11.8 - 14.4 %[facility] Platelet mean volume (Bld) [Entitic vol]10.6 fL8.1 - 13.5 fLLAKE TAYLOR TRANSITIONAL CARE HOSPITALPlatelets (Bld) [#/Vol]280 10*3/uLLAKE TAYLOR TRANSITIONAL CARE HOSPITALRBC (Bld) [#/Vol]3.73 10*6/uLLow3.95 - 5.11 m/uLLAKE TAYLOR TRANSITIONAL CARE HOSPITALWBC (Bld) [#/Vol] 4.6 10*3/uLBON MADISON COMMUNITY HOSPITALComp Metabolic Profon 07-05-2022(cont.)NormalMerHospital for Special CareComment on above:Result Comment: Average GFR for 40-49 years old: 99 mL/min/1.73sq m Chronic Kidney Disease: <60 mL/min/1.73sq m Kidney failure: <15 mL/min/1.73sq m eGFR calculated using average adult body mass. Additional eGFR calculator available at: http://www.wst.cn/multiple_crcl_2012.htmPerformed By: #### HCVQN #### [facility] [address] [place] [address] Natural Sciences Department Chair: Gee Soriano MD [address] [place], [place] 8[address]83 Natural Sciences Department Chair: Kelli Martel MD #### CBC, TSH, CP #### [address] [place], [place] 012[address]83 Natural Sciences Department Chair: Kelli Martel MD #### HIVCMB, PHEP, TREP, SWCGP, FT4 #### [facility] [address] [place] [address] Natural Sciences Department Chair: Amelie Martellbumin [Mass/Vol]4.2 g/dLNormal3.5-5.2Mercy Gaylord HospitalComment on above:Performed By: #### HCVQN #### [facility] [address] [place] [address] Natural Sciences Department Chair: Gee Soriano MD [address] [place] [address] Natural Sciences Department Chair: Kelli Martel MD #### CBC, TSH, CP #### [address] [place] [address] Natural Sciences Department Chair: Kelli Martel MD #### HIVCMB, PHEP, TREP, SWCGP, FT4 #### [address] [address] Natural Sciences Department Chair: Gee Madoff, MDAlbumin/Glob Ratio1.1Zmnuwf0.0-2.5[facility] SpringfieldComschoolcraft memorial hospital on above:Performed By: #### HCVQN #### [address] [address] Natural Sciences Department Chair: Gee Soriano MD [address] [place] [address] Natural Sciences Department Chair: Kelli Martel MD #### CBC, TSH, CP #### [address] [place] [address] Natural Sciences Department Chair: Kelli Martel MD #### HIVCMB, PHEP, TREP, SWCGP, FT4 #### [address] [address] Natural Sciences Department Chair: Jimi Martellline Phos65 U/FHkczni91-401YqrlsKettering Health SpringfieldComschoolcraft memorial hospital on above:Performed By: #### HCVQN #### [address] [address] Natural Sciences Department Chair: Gee Soriano MD [address] [place] [address] Natural Sciences Department Chair: Kelli Martel MD #### CBC, TSH, CP #### [address] [place] [address] Natural Sciences Department Chair: Kelli Martel MD #### HIVCMB, PHEP, TREP, SWCGP, FT4 #### [address] [place] [address] Natural Sciences Department Chair: TOMER Martell [Catalytic activity/Vol]33 U/LNormal5-33 [facility] on above:Performed By: #### HCVQN #### [address] [address] Natural Sciences Department Chair: Gee Soriano MD [address] [place] [address] Natural Sciences Department Chair: Kelli Martel MD #### CBC, TSH, CP #### [address] [place] [address] Natural Sciences Department Chair: Kelli Martel MD #### HIVCMB, PHEP, TREP, SWCGP, FT4 #### [address] [address] Natural Sciences Department Chair: Rafael Martell gap [Moles/Vol]9 mmol/LNormal9-17[facility]tering Health SpringfieldComment on above:Performed By: #### HCVQN #### [address] [address] Natural Sciences Department Chair: Gee Soriano MD [address] [place] [address] Natural Sciences Department Chair: Kelli Martel MD #### CBC, TSH, CP #### [address] [place], [place] 7[address]83 Natural Sciences Department Chair: Kelli Martel MD #### HIVCMB, PHEP, TREP, SWCGP, FT4 #### [address] [address] Natural Sciences Department Chair: Gee Soriano MDAST [Catalytic activity/Vol]38 U/LHigh<32[facility] Health SpringfieldComment on above:Performed By: #### HCVQN #### [address] [address] Natural Sciences Department Chair: Gee Soriano MD [address] [place] [address] Natural Sciences Department Chair: Kelli Martel MD #### CBC, TSH, CP #### [address] [place] [address] Natural Sciences Department Chair: Kelli Martel MD #### HIVCMB, PHEP, TREP, SWCGP, FT4 #### [address] [place] [address] Natural Sciences Department Chair: Gee Soriano MDBilirubin [Mass/Vol]0.23 mg/dLLow0.3-1.2MUC HealthComment on above:Performed By: #### HCVQN #### [address] [address] Natural Sciences Department Chair: Gee Soriano MD [address] [place] [address] Natural Sciences Department Chair: Kelli Martel MD #### CBC, TSH, CP #### [address] [place], [place] 59[address] Natural Sciences Department Chair: Kelli Martel MD #### HIVCMB, PHEP, TREP, SWCGP, FT4 #### [address] [address] Natural Sciences Department Chair: Gee Soriano MDBUN/CRE [id number] Comment on above:Performed By: #### HCVQN #### [address] [address] Natural Sciences Department Chair: Gee Soriano MD [address] [place], [facility]83 Natural Sciences Department Chair: Kelli Martel MD #### CBC, TSH, CP #### [address] [place] [address] Natural Sciences Department Chair: Kelli Martel MD #### HIVCMB, PHEP, TREP, SWCGP, FT4 #### [address] [address] Natural Sciences Department Chair: MAKENNA Martellalcium [Mass/Vol]8.9 mg/dLNormal8.6-10.4K[facility]tering Health SpringfieldComment on above:Performed By: #### HCVQN #### [address] [address] Natural Sciences Department Chair: Gee Soriano MD [address] [place] [address] Natural Sciences Department Chair: Kelli Martel MD #### CBC, TSH, CP #### [address] [place] [address] Natural Sciences Department Chair: Kelli Martel MD #### HIVCMB, PHEP, TREP, SWCGP, FT4 #### [address] [address] Natural Sciences Department Chair: Gee Soriano MDChloride [Moles/Vol]106 mmol/CSelmfo02-203GvpupKettering Health SpringfieldComment on above:Performed By: #### HCVQN #### [address] [address] Natural Sciences Department Chair: Gee Soriano MD [address] [place], [place] 95[address]183 Natural Sciences Department Chair: Kelli Martel MD #### CBC, TSH, CP #### [address] [place] [address] Natural Sciences Department Chair: Kelli Martel MD #### HIVCMB, PHEP, TREP, SWCGP, FT4 #### [address] [address] Natural Sciences Department Chair: Gee Soriano MDCO2 [Moles/Vol]30 mmol/CMhdfvk64-74YrppeKettering Health SpringfieldComschoolcraft memorial hospital on above:Performed By: #### HCVQN #### [facility] [address] [place] [address] Natural Sciences Department Chair: Gee Soriano MD [address] [place], [place] 8428483 Natural Sciences Department Chair: Kelli Martel MD #### CBC, TSH, CP #### [address] [place], [place] 674[address]83 Natural Sciences Department Chair: Kelli Martel MD #### HIVCMB, PHEP, TREP, SWCGP, FT4 #### [address] [address] Natural Sciences Department Chair: MAKENNA Martellreatinine [Mass/Vol]0.71 mg/dLNormal0.50-0.90 [facility] SpringfieldComment on above:Performed By: #### HCVQN #### [address] [address] Natural Sciences Department Chair: Gee Soriano MD [address] [place], [place] 7457[address] Natural Sciences Department Chair: Kelli Martel MD #### CBC, TSH, CP #### [address] [place], [place] 823[address]83 Natural Sciences Department Chair: Kelli Martel MD #### HIVCMB, PHEP, TREP, SWCGP, FT4 #### [address] [address] Natural Sciences Department Chair: Gee Soriano MDGFR, Amer>60Normal>60Mercy Gaylord HospitalComment on above:Performed By: #### HCVQN #### [address] [place] [address] Natural Sciences Department Chair: Gee Soriano MD [address] [place] [address] Natural Sciences Department Chair: Kelli Martel MD #### CBC, TSH, CP #### [address] [place] [address] Natural Sciences Department Chair: Kelli Martel MD #### HIVCMB, PHEP, TREP, SWCGP, FT4 #### [address] [address] Natural Sciences Department Chair: Gee Soriano MDGFR,non Amer>60Normal>60Mer[facility] Gaylord HospitalComment on above:Performed By: #### HCVQN #### [address] [address] Natural Sciences Department Chair: Gee Soriano MD [address] [place] [address] Natural Sciences Department Chair: Kelli Martel MD #### CBC, TSH, CP #### [address] [place] [address] Natural Sciences Department Chair: Kelli Martel MD #### HIVCMB, PHEP, TREP, SWCGP, FT4 #### [address] [address] Natural Sciences Department Chair: Gee Soriano MDGlucose [Mass/Vol]118 mg/tFIubw94-62WcdwuUC HealthComment on above:Performed By: #### HCVQN #### [address] [address] Natural Sciences Department Chair: Gee Soriano MD [address] [place] [address] Natural Sciences Department Chair: Kelli Martel MD #### CBC, TSH, CP #### [address] [place], [place] 6[address]83 Natural Sciences Department Chair: Kelli Martel MD #### HIVCMB, PHEP, TREP, SWCGP, FT4 #### [address] [address] Natural Sciences Department Chair: MICHAEL Martellotassium [Moles/Vol]3.9 mmol/LNormal3.7-5.3 [facility] SpringfieldComment on above:Performed By: #### HCVQN #### [address] [address] Natural Sciences Department Chair: Gee Soriano MD [address] [place] [address] Natural Sciences Department Chair: Kelli Martel MD #### CBC, TSH, CP #### [address] [place] [address] Natural Sciences Department Chair: Kelli Martel MD #### HIVCMB, PHEP, TREP, SWCGP, FT4 #### [address] [address] Natural Sciences Department Chair: MICHAEL Martellrotein [Mass/Vol]6.8 g/dLNormal6.4-8.3Mercy Gaylord HospitalComment on above:Performed By: #### HCVQN #### [address] [address] Natural Sciences Department Chair: Gee Soriano MD [address] [place] [address] Natural Sciences Department Chair: Kelli Martel MD #### CBC, TSH, CP #### [address] [place], [place] 3164383 Natural Sciences Department Chair: Kelli Martel MD #### HIVCMB, PHEP, TREP, SWCGP, FT4 #### [address] [address] Natural Sciences Department Chair: Gee Soriano MDSodium [Moles/Vol]145 mmol/HMjcl915-505Jbrsk Gaylord HospitalComment on above:Performed By: #### HCVQN #### [address] [address] Natural Sciences Department Chair: Gee Soriano MD [address] [place], [place] 847[address]83 Natural Sciences Department Chair: Kelli Martel MD #### CBC, TSH, CP #### [address] [place] [address] Natural Sciences Department Chair: Kelli Martel MD #### HIVCMB, PHEP, TREP, SWCGP, FT4 #### [address] [place] [address] Natural Sciences Department Chair: IRVIN Martelltaging:Magruder HospitalComschoolcraft memorial hospital on above:Result Comment: Stage 1: Some kidney damage normal GFR Stage 2: Mild kidney damage GFR 60-89 Stage 3: Moderate kidney damage GFR 30-59 Stage 4: Severe kidney damage GFR 15-29 Stage 5: Severe kidney damage GFR <15 ESRD - chronic treatment by dialysis or transplantPerformed By: #### HCVQN #### [address] [address] Natural Sciences Department Chair: Gee Soriano MD [address] [place] [address] Natural Sciences Department Chair: Kelli Martel MD #### CBC, TSH, CP #### [address] [place], [place] [address]783 Natural Sciences Department Chair: Kelli Martel MD #### HIVCMB, PHEP, TREP, SWCGP, FT4 #### [address] [address] Natural Sciences Department Chair: Gee Soriano MDUrea nitrogen [Mass/Vol]12 mg/dLNormal6-20[facility] on above:Performed By: #### HCVQN #### [facility] [address] [place] [address] Natural Sciences Department Chair: Gee Soriano MD [address] [place], [place] [address]32[address] Natural Sciences Department Chair: Kelli Martel MD #### CBC, TSH, CP #### [address] [place] [address] Natural Sciences Department Chair: Kelli Martel MD #### HIVCMB, PHEP, TREP, SWCGP, FT4 #### [facility] [address] [place] [address] Natural Sciences Department Chair: Gee Soriano [facility] OKLAHOMA CITYomprehensive Metabolic Panelon 04-06-2022 Albumin [Mass/Vol]4.2 g/dL3.5 - 5.2 g/dLBON SECOURS MERCY HEALTHAlbumin/Globulin [Mass ratio]1.6 {ratio}[facility] MERCY HEALTHALP (Bld) [Catalytic activity/Vol]65 U/L35 - 104 U/LBON SECOURS MERCY HEALTHALT [Catalytic activity/Vol]33 U/L5 - 33 U/LBON SECOURS MERCY HEALTHAnion gap [Moles/Vol]9 mmol/L9 - 17 mmol/LBON SECOURS MERCY HEALTHAST [Catalytic activity/Vol]38 U/L High<32B[facility]CY HEALTHBilirubin [Mass/Vol]0.23 mg/dLLow0.3 - 1.2 mg/dL [facility] HEALTHCalcium [Mass/Vol]8.9 mg/dL8.6 - 10.4 mg/dLBON SECOURS MERCY HEALTHChloride [Moles/Vol]106 mmol/L98 - 107 mmol/LBON SECOURS MERCY HEALTHCO2 [Moles/Vol]30 mmol/L20 - 31 mmol/LBON SECOURS MERCY HEALTHCreatinine [Mass/Vol]0.71 mg/dL0.50 - 0.90 mg/dLBON SECOURS MERCY HEALTHFree PSA/Total PSA [Mass fraction]6.8 g/dL6.4 - 8.3 g/dLBON SECOURS MERCY HEALTHGFR >60>60 mL/minBON SECOURS MERCY HEALTHGFR Non->60>60 mL/minBON SECOURS MERCY HEALTHGlucose [Mass/Vol]118 mg/qNCufk06 - 99 mg/dLBON SECOURS MERCY HEALTHInterpretation and review of laboratory resultsAbnormalBON SECOURS MERCY HEALTHPotassium [Moles/Vol]3.9 mmol/L3.7 - 5.3 mmol/LBON SECOURS MERCY HEALTHSodium [Moles/Vol]145 mmol/GVmuk659 - 144 mmol/LBON OHIO VALLEY HOSPITALUrea nitrogen (BldV) [Mass/Vol]12 mg/dL6 - 20 mg/dLBON OHIO VALLEY HOSPITALUrea nitrogen/Creatinine (Bld) [Mass ratio]17BON [facility] VALLEY HOSPITALHCV RNA,Quant,PCRon [id number].PLASMANormalKettering Health SpringfieldComment on above:Performed By: #### HCVQN #### [facility] [place] [address] Natural Sciences Department Chair: Gee Soriano MD [address] [place], [place] [phone] Natural Sciences Department Chair: Kelli Martel MD #### CBC, TSH, CP #### [address] [place], [place] 4685[address] Natural Sciences Department Chair: Kelli Martel MD #### HIVCMB, PHEP, TREP, SWCGP, FT4 #### [address] [place] [address] Natural Sciences Department Chair: Gee Soriano MDHIV Ag/Abon [id number] Ag/AbNon-Reactive NormalMary Rutan HospitalComment on above:Result Comment: No laboratory evidence of HIV infection. If acute HIV infection is suspected, consider testing for HIV-1 RNA.Performed By: #### HCVQN #### [facility] [place] [address] Natural Sciences Department Chair: Gee Soriano MD [address] [place] [address] Natural Sciences Department Chair: Kelli Martel MD #### CBC, TSH, CP #### [address] [place], [place] 2943883 Natural Sciences Department Chair: Kelli Martel MD #### HIVCMB, PHEP, TREP, SWCGP, FT4 #### [address] [address] Natural Sciences Department Chair: Gee Soriano MDHIV Screenon [id number] Ag/AbNon-Reactive NONREACTIVELAKE TAYLOR TRANSITIONAL CARE HOSPITALComschoolcraft memorial hospital on above:No laboratory evidence of HIV infection. If acute HIV infection is suspected, consider testing for HIV-1 RNA. B[facility] HOSPITALHetaylor regional hospitaltis Acute Brina 06-42-4419Ehg A Ab,IgM Non-ReactiveNormalMary Rutan HospitalComschoolcraft memorial hospital on above:Performed By: #### HCVQN #### [address] [address] Natural Sciences Department Chair: Gee Sorinao MD [address] [place] [address] Natural Sciences Department Chair: Kelli Martel MD #### CBC, TSH, CP #### [address] [place] [address] Natural Sciences Department Chair: Kelli Martel MD #### HIVCMB, PHEP, TREP, SWCGP, FT4 #### [address] [address] Natural Sciences Department Chair: Americo Martell B Core Ab,IgMNon-ReactiveProMedica Flower HospitalComschoolcraft memorial hospital on above:Performed By: #### HCVQN #### [address] [address] Natural Sciences Department Chair: Gee Soriano MD [address] [place] [address] Natural Sciences Department Chair: Kelli Martel MD #### CBC, TSH, CP #### [address] [place] [address] Natural Sciences Department Chair: Kelli Martel MD #### HIVCMB, PHEP, TREP, SWCGP, FT4 #### [address] [address] Natural Sciences Department Chair: Americo Martell [facility] HospitalComment on above:Performed By: #### HCVQN #### [address] [address] Natural Sciences Department Chair: Gee Soriano MD [address] [place] [address] Natural Sciences Department Chair: Kelli Martel MD #### CBC, TSH, CP #### [address] [place], [place] 2789783 Natural Sciences Department Chair: Kelli Martel MD #### HIVCMB, PHEP, TREP, SWCGP, FT4 #### [address] [address] Natural Sciences Department Chair: Americo Martell [facility] Comment on above:Result Comment: The hepatitis C procedure used in [...] PCR. Results reported to the appropriate Health DepartmentPerformed By: #### HCVQN #### [address] [address] Natural Sciences Department Chair: Gee Soriano MD [address] [place] [address] Natural Sciences Department Chair: Kelli Martel MD #### CBC, TSH, CP #### [address] [place], [place] 4606[address] Natural Sciences Department Chair: Kelli Martel MD #### HIVCMB, PHEP, TREP, SWCGP, FT4 #### [address] [address] Natural Sciences Department Chair: Dani Martell Panel, Acuteon [id number] IgM IA Qn (S)Non-ReactiveNONREACTIVEInova Children's Hospital B Core Ab, IgMNon-Reactive NONREACTIVEReston Hospital Centertis B Surface AgNon-ReactiveNONREACTIVE [facility] Centertis C AbReactiveAbnormalNONREACTIVEBon [facility] on above: The hepatitis C procedure used [...] Health Department Interpretation and review of laboratory resultsAbnormalJOHN RANDOLPH MEDICAL CENTERLaboratory - Chemistry and Chemistry - challengeon [id number]/1.73 sq M.predicted MDRD (S/P/Bld) [Vol rate/Area][facility] on above:Average GFR for 40-49 years old: 99 mL/min/1.73sq m Chronic Kidney Disease: <60 mL/min/1.73sq m Kidney failure: <15 mL/min/1.73sq m eGFR calculated using average adult body mass. Additional eGFR calculator available at: http://www.[employer]/multiple_crcl_2012.htm Stage 1: Some kidney damage normal GFR Stage 2: Mild kidney damage GFR 60-89 Stage 3: Moderate kidney damage GFR 30-59 Stage 4: Severe kidney damage GFR 15-29 Stage 5: Severe kidney damage GFR <15 ESRD - chronic treatment by dialysis or transplant No Panel Informationon [id number] OHIO VALLEY HOSPITALT. pallidum Abon 04-06-2022T. pallidum, IgGNon-ReactiveNONREACTIVEBon Secours Richmond Community Hospital on above: T. pallidum antibodies are not detected. There is no serological evidence of infection with T. pallidum (early primary syphilis cannot be excluded). Retest in 2-4 weeks if syphilis is clinically suspect. BON [facility] HOSPITALT.pallidum Ab Screenon 04-06-2022T.pallidum Ab Screen Non-ReactiveNormalNRKettering Health SpringfieldComment on above:Result Comment: T. pallidum antibodies are not detected. There is no serological evidence of infection with T. pallidum (early primary syphilis cannot be excluded). Retest in 2-4 weeks if syphilis is clinically suspect.Performed By: #### HCVQN #### [address] [place] [address] Natural Sciences Department Chair: Gee Soriano MD [address] [place] [address] Natural Sciences Department Chair: Kelli Martel MD #### CBC, TSH, CP #### [address] [place] [address] Natural Sciences Department Chair: Kelli Martel MD #### HIVCMB, PHEP, TREP, SWCGP, FT4 #### [facility] [place], [place] 5449908 Natural Sciences Department Chair: Gee Soriano MDT4, Freeon [id number], Free1.13 ng/dL 0.93 - 1.70 ng/dLBON OHIO VALLEY HOSPITALBON OH[facility] VALLEY HOSPITALTSHon [id number] Qn0.77 m[IU]/LBON [facility] VALLEY HOSPITALThyroid Stim. Horm.on [id number] Stim. Horm.0.77 uIU/mLNormal0.30-5.00[facility] Comment on above:Performed By: #### HCVQN #### [address] [address] Natural Sciences Department Chair: Gee Soriano MD [address] [place] [address] Natural Sciences Department Chair: Kelli Martel MD #### CBC, TSH, CP #### [address] [place], [place] 858[address] Natural Sciences Department Chair: Kelli Martel MD #### HIVCMB, PHEP, TREP, SWCGP, FT4 #### [facility] [place] [address] Natural Sciences Department Chair: Gee Soriano MDThyroxine, Freeon [id number], Free1.13 ng/dLNormal0.93-1.70[facility] SpringfieldComschoolcraft memorial hospital on above:Performed By: #### HCVQN #### [address] [address] Natural Sciences Department Chair: Gee Soriano MD [address] [place] [address]83 Natural Sciences Department Chair: Kelli Martel MD #### CBC, TSH, CP #### [address] [place] [phone] Natural Sciences Department Chair: Kelli Martel MD #### HIVCMB, PHEP, TREP, SWCGP, FT4 #### [address] [address] Natural Sciences Department Chair: Gee Soriano MDTrichomonas/Wet Prepon [id number]/Wet PrepSpecimen Description .VAGINAL SPECIMEN Direct Exam NO YEAST OBSERVED NO TRICHOMONAS SEEN NO CLUE CELLS SEEN Report Status FINAL 04/06/2022NormalKettering Health SpringfieldComschoolcraft memorial hospital on above: Performed By: #### WP #### [address] [place] [phone] Natural Sciences Department Chair: Kelli Martel MDWet prep, genitalon [id number] ExamNO YEAST OBSERVEDBON [facility] Valley Health Systemrect ExamNO TRICHOMONAS SEENBON [facility] Health Systemrect ExamNO CLUE CELLS SEENBON OHIO VALLEY HOSPITALSpecimen Description .VAGINAL SPECIMENBON SECOU[facility]ALS [facility] MEDICAL CENTERBON [facility] URINE PROFILEon [id number] Ql (U)NegativeNormalNEGATIVEThe [facility] Comment on above:Performed By: #### ERUR #### [facility] [address] [address] [address] Erlinda RiveraClarity (U)CLEARNormalCLEARNorwalk Memorial HospitalComment on above: Performed By: #### ERUR #### [facility] [address] [address] [address] Erlinda Saul (U)LT. YELLOWNormalYELLOWNorwalk Memorial HospitalComment on above:Performed By: #### ERUR #### [facility] [address] [place] [address] Dr. Erlinda Long micrscopic examination will be performed if indicated. NormalNorwalk Memorial HospitalComment on above:Performed By: #### ERUR #### [facility] [address] [place] [address] Dr. Erlinda RiveraGlucose Ql (U)NegativeNormalNEGATIVENorwalk Memorial HospitalComment on above:Performed By: #### ERUR #### [facility] [address] [place] [address] Dr. Erlinda RiveraHemoglobin Ql (U)NegativeNormalNEGAvita Health System Comment on above:Performed By: #### ERUR #### [facility] [address] [place] [address] Dr. Erlinda RiveraKetones Ql (U)NegativeNormalNEGATIVENorwalk Memorial HospitalComment on above:Performed By: #### ERUR #### [facility] [address] [place] [address] Dr. Erlinda RiveraLEUKOCYTESNegativeNormalNEGATIVENorwalk Memorial HospitalComschoolcraft memorial hospital on above:Performed By: #### ERUR #### [facility] [address] [place] [address] Dr. Erlinda RiveraNitrite Ql (U)NegativeNormalNEGATIVENorwalk Memorial HospitalComment on above:Performed By: #### ERUR #### [facility] [address] [address] [address] Erlinda RiverapH (U)7.0 [pH]Normal5-9Nor[facility] HospitalComment on above: Performed By: #### ERUR #### [facility] [address] [address] [address] Erlinda RiveraSPEC GRAVITY<=1.364Dbekosgw9.005-<=1.025[facility] Comment on above:Performed By: #### ERUR #### [facility] [address] [address] [address] Erlinda RiveraUA PROTEINNegativeNormalNEGATIVE/ TRACENorwalk Memorial Hospital Comment on above:Performed By: #### ERUR #### [facility] [address] [address] [address] Erlinda Cantu MICRO INDNOT INDICATEDOhioHealth Berger HospitalComment on above:Performed By: #### ERUR #### [facility] [address] [place] [address] Dr. Erlinda RiveraUrobilinogen Qn (U)0.2 {Shannan'U}/dLNormal0.2 - 1.0Norwalk Memorial HospitalComment on above:Performed By: #### ERUR #### [facility] [address] [place] [address] Dr. Erlinda RiveraXR CHEST 2 Von [id number] CHEST 2 VEXAM: XR CHEST 2 V HISTORY: Pain COMPARISON: [...] Electronically authenticated by: KAYLA NYE Date: 2022-03-24 22:52[facility] AUTO DIFFon [id number] #0.0 103/ulNormal0.0-0.1The [facility] SystemComment on above:Performed By: #### ETH, SALYC, ACET, CMP #### [facility] [address] [place] [address] Dr. Erlinda RiveraBasophils/100 WBC (Bld)0.4 %Normal0.2-2.0The [facility] Comment on above:Performed By: #### ETH, SALYC, ACET, CMP #### [facility] [address] [place] [address] Dr. Erlinda Bobo #0.1 103/ulNormal0.0-0.7The [facility] SystemComment on above: Performed By: #### ETH, SALYC, ACET, CMP #### [facility] [address] [place] [address] Dr. Erlinda Petersonosinophils/100 WBC (Bld)1.8 %Normal0.9-7.0The [facility] Comment on above:Performed By: #### ETH, SALYC, ACET, CMP #### [facility] [address] [place] [address] Dr. Erlinda Petersonrythrocyte distribution width (RBC) [Ratio]12.7 %Hksqpn08.0-15.0 [facility] HospitalComment on above:Performed By: #### ETH, SALYC, ACET, CMP #### [facility] [address] [place] [address] Dr. Erlinda RiveraHematocrit (Bld) [Volume fraction]31.6 %Critically low36.0-48.0 The [facility] SystemComment on above:Performed By: #### ETH, SALYC, ACET, CMP #### [facility] [address] [place] [address] Dr. Erlinda RiveraHemoglobin (Bld) [Mass/Vol]10.4 g/dLCritically low12.0-16.0The [facility] SystemComment on above:Performed By: #### ETH, SALYC, ACET, CMP #### [facility] [address] [place] [address] Dr. Erlinda Aaron #0.07 10e3/ulCritically high0.00-0.03The [facility] Comment on above:Performed By: #### ETH, SALYC, ACET, CMP #### [facility] [address] [place] [address] Dr. Erlinda Aaron %1.2 %Critically high0.0-0.5The [facility] SystemComment on above:Performed By: #### ETH, SALYC, ACET, CMP #### [facility] [address] [place] [address] Dr. Erlinda Boyer #1.3 103/ulNormal1.2-3.8The [facility] SystemComment on above:Performed By: #### ETH, SALYC, ACET, CMP #### [facility] [address] [place] [address] Dr. Erlinda Cunhahocytes/100 WBC (Bld)23.4 %Trqwjw62.5-60.0The [facility] SystemComment on above:Performed By: #### ETH, SALYC, ACET, CMP #### [facility] [address] [place] [address] Dr. Erlinda Kirk DIFF REQNONormalThe [facility]als Health SystemComment on above: Performed By: #### ETH, SALYC, ACET, CMP #### [facility] [address] [place] [address] Dr. Erlinda Lepe (RBC) [Entitic mass]33.8 qhIuehsh87.7-34.0The [facility] SystemComment on above:Performed By: #### ETH, SALYC, ACET, CMP #### [facility] [address] [place] [address] Dr. Erlinda Lepe (RBC) [Mass/Vol]32.9 g/rTPbqavy70.9-35.2The [facility] SystemComment on above:Performed By: #### ETH, SALYC, ACET, CMP #### [facility] [address] [place] [address] Dr. Erlinda LepeV (RBC) [Entitic vol]102.6 fLCritically high81.0-99.0The [facility] SystemComment on above:Performed By: #### ETH, SALYC, ACET, CMP #### [facility] [address] [place] [address] Dr. Erlinda Song #0.4 103/ulNormal0.3-0.8The [facility] SystemComment on above:Performed By: #### ETH, SALYC, ACET, CMP #### [facility] [address] [place] [address] Dr. Erlinda Awadocytes/100 WBC (Bld)6.9 %Normal1.7-12.0The [facility] Comment on above:Performed By: #### ETH, SALYC, ACET, CMP #### [facility] [address] [place] [address] Dr. Erlinda Perez #3.8 103/ulNormal1.4-6.5The [facility] SystemComment on above:Performed By: #### ETH, SALYC, ACET, CMP #### [facility] [address] [place] [address] Dr. Erlinda Boggsutrophils/100 WBC (Bld)66.3 %Zhxbmz78.0-75.0The [facility] SystemComment on above:Performed By: #### ETH, SALYC, ACET, CMP #### [facility] [address] [place] [address] Dr. Erlinda Hsiehlet mean volume (Bld) [Entitic vol]11.4 fLNormal9.5-13.5The [facility] SystemComment on above:Performed By: #### ETH, SALYC, ACET, CMP #### [facility] [address] [place] [address] Dr. Erlinda RiveraPLT150 103/rmPdwpte894-790Wsz [facility] SystemComment on above: Performed By: #### ETH, SALYC, ACET, CMP #### [facility] [address] [place] [address] Dr. Erlinda RiveraRBC3.08 106/ulCritically low4.20-5.40The [facility] SystemComment on above:Performed By: #### ETH, SALYC, ACET, CMP #### [facility] [address] [place] [address] Dr. Erlinda RiveraWBC5.7 103/ulNormal4.0-11.0The [facility] Hospitalment on above: Performed By: #### ETH, SALYC, ACET, CMP #### [facility] [address] [place] [address] Dr. Erlinda Ziegler 14(COMP METB)on 25-70-3125Grczona [Mass/Vol]2.9 g/dL Critically low3.4-5.0The [facility] on above:Performed By: #### KAELYN, UMICRO #### [facility] [address] [place] [address] Dr. Erlinda RiveraAlbumin/Globulin [Mass ratio]1.0 {ratio}NormalThe [facility] Health SystemComschoolcraft memorial hospital on above:Performed By: #### KAELYN, UMICRO #### [facility] [address] [place] [address] Dr. Erlinda Higginbotham [Catalytic activity/Vol]48 U/IJvphxl45-868Pcm [facility] on above:Performed By: #### KAELYN, UMICRO #### [facility] [address] [place] [address] Dr. Erlinda Lucas [Catalytic activity/Vol]97 U/LCritically tnkt84-88Uov [facility] on above:Performed By: #### KAELYN, UMICRO #### [facility] [address] [place] [address] Dr. Erlinda Wolf gap [Moles/Vol]8.5 mmol/LNormalThe [facility] on above:Performed By: #### ERUR, UMICRO #### [facility] [address] [place] [address] Dr. Erlinda Lopez [Catalytic activity/Vol]112 U/LCritically dvon70-39Rxw [facility] on above:Performed By: #### ERUR, UMICRO #### [facility] [address] [place] [address] Dr. Erlinda RiveraBilirubin [Mass/Vol]0.2 mg/dLNormal0.2-1.0[facility] Comment on above:Performed By: #### KAELYN UMICRO #### [facility] [address] [place] [address] Dr. Erlinda RiveraCalcium [Mass/Vol]8.2 mg/dLCritically low8.5-10.1The [facility] SystemComment on above:Performed By: #### KAELYN UMICRO #### [facility] [address] [place] [address] Dr. Erlinda RiveraChloride [Moles/Vol]106 mmol/MLdcpce01-321ZltNorwalk Memorial Hospital Comment on above:Performed By: #### KAELYN UMICRO #### [facility] [address] [place] [address] Dr. Erlinda RiveraCO2 [Moles/Vol]29.5 mmol/CHaitjr41.0-32.0[facility] Comment on above:Performed By: #### KAELYN UMICRO #### [facility] [address] [place] [address] Dr. Erlinda RiveraCreatinine [Mass/Vol]0.79 mg/dLNormal0.55-1.02The [facility] SystemComment on above:Performed By: #### KAELYN UMICRO #### [facility] [address] [place] [address] Dr. Erlinda PetersonGFR-AF NIGERIEN>60Normal>=60Nor[facility] Memorial HospitalComment on above:Performed By: #### KAELYN UMICRO #### [facility] [address] [place] [address] Dr. Erlinda PetersonGFR-NON AF NIGERIEN>60Normal>=60The [facility] SystemComment on above:Performed By: #### KAELYN UMICRO #### [facility] [address] [place] [address] Dr. Erlinda RiveraGlobulin (S) [Mass/Vol]3.0 g/dLNormFairfield Medical CenterComment on above:Performed By: #### SEBASTIÁN ARTRO #### [facility] [address] [place] [address] Dr. Erlinda RiveraGlucose [Mass/Vol]86 mg/xDKgltur24-298RgqNorwalk Memorial Hospital Comment on above:Performed By: #### KAELYN UMICRO #### [facility] [address] [place] [address] Dr. Erlinda RiveraPotassium [Moles/Vol]4.0 mmol/LNormal3.5-5.1The [facility] Comment on above:Performed By: #### KAELYN UMICRO #### [facility] [address] [place] [address] Dr. Erlinda RiveraProtein [Mass/Vol]5.9 g/dLCritically low6.4-8.2The [facility] SystemComment on above:Performed By: #### KAELYN UMICRO #### [facility] [address] [place] [address] Dr. Erlinda RiveraSodium [Moles/Vol]140 mmol/BStslen806-251Clb [facility] Comment on above:Performed By: #### KAELYN UMICRO #### [facility] [address] [place] [address] Dr. Erlinda RiveraUrea nitrogen [Mass/Vol]8.0 mg/dLNormal7.0-18.0[facility] HospitalComment on above:Performed By: #### KAELYN UMICRO #### [facility] [address] [place] [address] Dr. Erlinda RiveraUrea nitrogen/Creatinine [Mass ratio]10.1 mg/mgNoMary Rutan HospitalComment on above:Performed By: #### KAELYN UMICRO #### [facility] [address] [place] [address] Dr. Erlinda Monahan 68-68-3294EYJ7.362 uIU/mLNormal0.358-3.740Norwalk [facility] HospitalComment on above:Performed By: #### ERUR, GHASSAN #### [facility] [address] [address] [address] Erlinda Pimentelirubin Test strip Ql (U)Ordered By: Miah Abreu on 26-82-2923Owvkvytii Ql (U)NegativeNegSumma Health Wadsworth - Rittman Medical CenterColor Auto (U)Ordered By: Miah Abreu on 65-73-6776Zjefq (U)YellowYellowAdena Health SystemKetones Auto test strip (U) [Mass/Vol]Ordered By: Miah Abreu on 18-12-7986Ldprozg (U) [Mass/Vol]NegativeNegSumma Health Wadsworth - Rittman Medical CenterNitrite Test strip Ql (U)Ordered By: Miah Abreu on 03-21-2022 Nitrite Ql (U)NegativeNegSumma Health Wadsworth - Rittman Medical CenterProtein Auto test strip (U) [Mass/Vol]Ordered By: Miah Abreu on 84-56-8591Imphhfa (U) [Mass/Vol]NegativeNegSalem Regional Medical Centerpecific gravity Auto test strip (U) [Rel density]Ordered By: Miah Abreu on 89-28-5318Jpayuhfw gravity (U) [Rel density]1.0031.001-1.030Adena Health SystemUrine clarity by refractometry automatedOrdered By: Miah Abreu on 03-21-2022 Clarity Refractometry automated (U)ClearCleOhioHealth [facility] Hospital Urine glucose measurement by automated test strip (mass/volume)Ordered By: Miah Abreu on 61-26-1767Opknisg Auto test strip (U) [Mass/Vol]Normal mg/dL NormalAdena Health SystemUrine hemoglobin detection by automated test stripOrdered By: Miah Abreu on 99-58-5831Igptjvmtnd Auto test strip Ql (U)NegativeNegSumma Health Wadsworth - Rittman Medical CenterUrine leukocyte esterase detection by automated test stripOrdered By: Miah Abreu on 03-21-2022 Leukocyte esterase Auto test strip Ql (U)NegativeNegSumma Health Wadsworth - Rittman Medical CenterUrobilinogen Auto test strip (U) [Mass/Vol]Ordered By: Miah Abreu on 21-46-9709Azdqcmabszmm (U) [Mass/Vol]Normal mg/dLNormalAdena Health SystempH Auto test strip (U)Ordered By: Miah Abreu on 07-52-3890bJ (U)6.0 [pH]5.0-9.0[facility] Health SystemCholesterol [Mass/volume] in Serum or PlasmaOrdered By: Miah Abreu on 03-20-2022 Cholesterol [Mass/Vol]175 mg/bX875-091LzooaxdskAdena Health SystemComment on above:Chol less than 200 mg/dl low risk Chol 201-239 mg/dl borderline risk Chol 240 mg/dl and greater high riskCholesterol in LDL Calc [Mass/Vol]Ordered By: Miah Abreu on 87-04-4140Nctdbyzfqhz in LDL [Mass/Vol]117 mg/dL0-100 [facility] SystemComment on above:LDL ATP III CLASSIFICATION LDL less than 100 mg/dL Optimal LDL 100-129 mg/dL Near or above optimal LDL 130-159 mg/dL Borderline high LDL 160-189 mg/dL High LDL greater than 189 mg/dL Very highCholesterol in VLDL Calc [Mass/Vol]Ordered By: Miah Abreu on 99-82-5241Ccopepsrqck in VLDL [Mass/Vol]16 mg/dLAdena Health SystemNo Panel InformationOrdered By: Miah Abreu on 02-28-525120517125-Bajtqmw Vitamin D Total40.0 ng/qG56-149YgsakebiqAdena Health SystemComment on above:VITAMIN D STATUS 25(OH)VITAMIN D RANGE (ng/mL) Deficient <20 Insufficient 20 to <30 Sufficient 30 to 100 Reference: Roque MF,Jhony NC, Janina LAYTON, et al. Evaluation,treatment, and prevention of vitamin D deficiency; an Endocrine Society clinical practice guideline. JCEM. 2010; 96(7):1911-30.Serum or plasma high density lipoprotein (HDL) cholesterol measurementOrdered By: Miah Abreu on 67-78-8105Mlwbycgwbzv in HDL [Mass/Vol]42 mg/bG62-95VoxeykjsuAdena Health SystemComment on above:HDL CHOL ATP-III CLASSIFICATION Cardiovascular Risk HDL > or equal to 60 mg/dL LOW HDL < 40 mg/dL HIGHSerum or plasma total cholesterol/high density lipoprotein (HDL) cholesterol mass ratOrdered By: Miah Abreu on 03-20-2022 Cholesterol.total/Cholesterol in HDL [Mass ratio]4.2 {ratio}<5.0[facility] <= 0.005 mIU/L QnOrdered By: Miah Abreu on 28-24-6719GQI Qn1.08 m[IU]/L0.45-5.33[facility] Triglyceride [Mass/volume] in Serum or PlasmaOrdered By: Miah Brady on 07-35-3642Rlttlyfjveey [Mass/Vol]81 mg/fC54-814OmntanrlgAdena Health System Comment on above:TRIG ATP III CLASSIFICATION TRIG less than 150 mg/dL Normal TRIG 150-199 mg/dL Borderline high TRIG 200-500 mg/dL High TRIG greater than 500 mg/dL Very high Standard traceable to the Center for Disease Conrtrol and Prevention (CDC) test method.ACETAMINOPHENon 13-98-6064Zxmkxqmkkgdvd [Mass/Vol]ug/mLCritically low 10.0-30.0The [facility] SystemComment on above:Performed By: #### GHASSAN ART #### [facility] [address] [place] [address] Dr. Erlinda Ruiz AUTO DIFFon 92-47-9275VBBK #0.1 103/ulNormal0.0-0.1The [facility] SystemComment on above:Performed By: #### CVDTBH #### [facility] [address] [place] [address] Dr. Erlinda Trotterphils/100 WBC (Bld)0.6 %Normal0.2-2.0The [facility] Comment on above:Performed By: #### CVDTBH #### [facility] [address] [place] [address] Dr. Erlinda Bobo #0.1 103/ulNormal0.0-0.7The [facility] SystemComment on above: Performed By: #### CVDTBH #### [facility] [address] [place] [address] Dr. Erlinda Petersonosinophils/100 WBC (Bld)0.7 %Critically low0.9-7.0The [facility] North Hospitalment on above:Performed By: #### CVDTBH #### [facility] [address] [place] [address] Dr. Erlinda Petersonrythrocyte distribution width (RBC) [Ratio]12.2 %Zsfmmb36.0-15.0 The [facility] SystemComment on above:Performed By: #### CVDTBH #### [facility] [address] [place] [address] Dr. Erlinda RiveraHematocrit (Bld) [Volume fraction]39.5 %Ntfjmy83.0-48.0The [facility] on above:Performed By: #### CVDTBH #### [facility] [address] [place] [address] Dr. Erlinda RiveraHemoglobin (Bld) [Mass/Vol]13.2 g/rIVbpqhg57.0-16.0The [facility] North Hospitalment on above:Performed By: #### CVDTBH #### [facility] [address] [place] [address] Dr. Erlinda Aaron #0.03 10e3/ulNormal0.00-0.03The [facility] on above:Performed By: #### CVDTBH #### [facility] [address] [place] [address] Dr. Erlinda Aaron %0.3 %Normal0.0-0.5The [facility] on above: Performed By: #### CVDTBH #### [facility] [address] [place] [address] Dr. Erlinda CunhaH #2.5 103/ulNormal1.2-3.8The [facility] on above:Performed By: #### CVDTBH #### [facility] [address] [place] [address] Dr. Erlinda Lunamphocytes/100 WBC (Bld)26.9 %Gnxblq64.5-60.0The [facility] SystemComment on above:Performed By: #### CVDTBH #### [facility] [address] [place] [address] Dr. Erlinda Kirk DIFF REQNONormalThe [facility] Health SystemComment on above: Performed By: #### CVDTBH #### [facility] [address] [place] [address] Dr. Erlinda Lepe (RBC) [Entitic mass]34.3 pgCritically high26.7-34.0The [facility] HospitalComment on above:Performed By: #### CVDTBH #### [facility] [address] [place] [address] Dr. Erlinda Lepe (RBC) [Mass/Vol]33.4 g/fAQoyhaj14.9-35.2The [facility] SystemComment on above:Performed By: #### CVDTBH #### [facility] [address] [place] [address] Dr. Erlinda Holguin (RBC) [Entitic vol]102.6 fLCritically high81.0-99.0The [facility] SystemComment on above:Performed By: #### CVDTBH #### [facility] [address] [place] [address] Dr. Erlinda Song #0.8 103/ulNormal0.3-0.8The [facility] SystemComment on above:Performed By: #### CVDTBH #### [facility] [address] [place] [address] Dr. Erlinda Awadocytes/100 WBC (Bld)8.7 %Normal1.7-12.0The [facility] Comment on above:Performed By: #### CVDTBH #### [facility] [address] [place] [address] Dr. Erlinda Perez #5.9 103/ulNormal1.4-6.5The [facility] SystemComment on above:Performed By: #### CVDTBH #### [facility] [address] [place] [address] Dr. Yilan ChangNeutrophils/100 WBC (Bld)62.8 %Zcsbfp97.0-75.0The [facility] SystemComment on above:Performed By: #### CVDTBH #### [facility] [address] [place] [address] Dr. Erlinda Hsiehlet mean volume (Bld) [Entitic vol]10.6 fLNormal9.5-13.5The [facility] SystemComment on above:Performed By: #### CVDTBH #### [facility] [address] [place] [address] Dr. Erlinda RiveraPLT213 103/whOpanoe342-488Jne [facility] on above: Performed By: #### CVDTBH #### [facility] [address] [place] [address] Dr. Erlinda RiveraRBC3.85 106/ulCritically low4.20-5.40The [facility] SystemComment on above:Performed By: #### CVDTBH #### [facility] [address] [place] [address] Dr. Erlinda RiveraWBC9.3 103/ulNormal4.0-11.0The [facility] on above: Performed By: #### CVDTBH #### [facility] [address] [place] [address] Dr. Erlinda RiveraCT CHEST W CONon [id number] CHEST W CONEXAMINATION: CT CHEST W CON, CT ABD/PELV W [...] Electronically authenticated by: MARIPOSA MARTIN Date: 2022-03-19 05:08Normal [facility] WO CONon [id number] [facility] CONEXAMINATION: CT [facility] CON CLINICAL INDICATION: Trauma. TECHNIQUE: Axial CT [...] Electronically authenticated by: MARIMAR VIVAS Date: 2022-03-19 04:45[facility] HospitalCT FACIAL [facility] WO CONon [id number] FACIAL BONES WO CON EXAMINATION: CT FACIAL [...] Electronically authenticated by: MARIMAR VIVAS Date: 2022-03-19 04:34[facility] HospitalCT HEAD WO CONon [id number] HEAD WO CONEXAM: CT HEAD WO CON CLINICAL INDICATION: HEADACHE [...] done to further evaluate. Electronically authenticated by: AMRIMAR VIVAS Date: 2022-03-19 04:30NoMary Rutan HospitalCovid-19 PCR (CVDTBH)on 21-57-9415DDNS-CoV-2 (COVID-19) RNA TISHA+probe Ql (Unsp spec)Not detectedNormalNOT DETECTEDThe [facility] Comment on above:Result Comment: When diagnostic testing is negative, the [...] for this test is supported by the Manager Database Administration of Health and Human Service's declaration that circumstances exist to justify the emergency use of in vitro diagnostics for the detection and/or diagnosis of the virus that causes COVID-19. This EUA will remain in effect for the duration of the COVID-19 declaration justifying emergency of IVDs, unless it is terminated or revoked by the FDA (after which the test may no longer be used).Performed By: #### ETH, SALYC, ACET, CMP #### [facility] [address] [place] [address] Dr. Erlinda RiveraDRUG SCREEN RAPID (URINE)on 07-86-7227FGETnmbetgnSubnkcqlPACNTSCN [facility] HospitalComschoolcraft memorial hospital on above:Performed By: #### ERUR, UMICRO #### [facility] [address] [place] [address] Dr. Erlinda RiveraBARNegativeNormalNEGATIVEDayton Osteopathic Hospital on above: Performed By: #### ERUR, UMICRO #### [facility] [address] [place] [address] Dr. Erlinda RiveraBUPNegativeNormalNEGATIVEDayton Osteopathic Hospital on above: Performed By: #### ERUR, UMICRO #### [facility] [address] [place] [address] Dr. Erlinda RiveraBZOPositiveAbnormvaNEGThe [facility] Hospital on above: Performed By: #### ERUR, UMICRO #### [facility] [address] [place] [address] Dr. Erlinda RiveraCOCPositiveAbrmalNEGThe [facility] Hospital on above: Performed By: #### ERUR, UMICRO #### [facility] [address] [place] [address] Dr. Erlinda ReedGenesis HospitalComschoolcraft memorial hospital on above: Result Comment: AMP (Amphetamine): 500ng/mL, BAR (Barbituates): 200 ng/mL, BZO (Benzodiazepines): 150 ng/mL, BUP (Buprenorphine): 10 ng/mL, DOUGLAS (Cocaine): 150 ng/mL, mAMP (Methamphetamine): 500 ng/mL, MTD (Methadone): 200 ng/mL, OPI (Opiates): 100 ng/mL, OXY (Oxycodone): 100 ng/mL, PCP (Phencyclidine): 25 ng/mL, PPX (Propoxyphene): 300 ng/mL, THC (Cannabinoids): 50 ng/mL, TCA (Trycyclic Antidepressants): 300 ng/mLPerformed By: #### ERUR, UMICRO #### [facility] [address] [place] [address] Dr. Erlinda RiveraDRUG CUT HEADERDRUG CLASS TEST SYSTEM CUT-OFF CONCENTRATIONS ARE FOLLOWS:NormalThe Bonanza HospitalComment on above:Performed By: #### ERUR, UMICRO #### [facility] [address] [address] [address] Erlinda RiveramAMPPositiveAbnormalNEGATIVENorwalk Memorial HospitalComment on above:Performed By: #### ERUR, UMICRO #### [facility] [address] [address] [address] Erlinda RiveraMTDNegativeNormalNEGATIVENorwalk Memorial HospitalComment on above: Performed By: #### ERUR, UMICRO #### [facility] [address] [place] [address] Dr. Erlinda RiveraOPIPositiveAbnormalNEGATIVENorwalk Memorial HospitalComment on above: Performed By: #### ERUR, UMICRO #### [facility] [address] [address] [address] Erlinda RiveraOXYNegativeNormalNEGATIVENorwalk Memorial HospitalComment on above: Performed By: #### ERUR, UMICRO #### [facility] [address] [place] [address] Dr. Erlinda RiveraPCPNegativeNormalNEGATIVENorwalk Memorial HospitalComschoolcraft memorial hospital on above: Performed By: #### ERUR, UMICRO #### [facility] [address] [address] [address] Erlinda RiveraPPXNegativeNormalNEGATIVENorwalk Memorial HospitalComment on above: Performed By: #### ERUR, UMICRO #### [facility] [address] [place] [address] Dr. Erlinda RiveraTCANegativeNormalNEGATIVENorwalk Memorial HospitalComment on above: Performed By: #### ERUR, UMICRO #### [facility] [address] [place] [address] Dr. Erlinda RiveraTHCPositiveAbnormalNEGATIVENorwalk Memorial HospitalComment on above: Performed By: #### ERUR, UMICRO #### [facility] [address] [address] [address] Erlinda Fields URINE PROFILEon 02-15-5596Vhvepnikd Ql (U)NegativeNormal NEGATIVENorwalk Memorial HospitalComment on above:Performed By: #### KAELYN UMICRO #### [facility] [address] [address] [address] Erlinda RiveraClarity (U)CLEARNormalCLEARNorwalk Memorial HospitalComment on above: Performed By: #### KAELYN UMICRO #### [facility] [address] [address] [address] Erlinda RiveraColor (U)YELLOWNormalYELLOWNorwalk Memorial HospitalComment on above: Performed By: #### KAELYN UMICRO #### [facility] [address] [place] [address] Dr. Erlinda Long micrscopic examination will be performed if indicated. NormalNorwalk Memorial HospitalComment on above:Performed By: #### KAELYN UMICRO #### [facility] [address] [place] [address] Dr. Erlinda RiveraGlucose Ql (U)NegativeNormalNEGATIVENorwalk Memorial HospitalComment on above:Performed By: #### KAELYN UMICRO #### [facility] [address] [place] [address] Dr. Erlinda RiveraHemoglobin Ql (U)NegativeNormalNEGATIVEWayne Healthcare Main Campus on above:Performed By: #### KAELYN UMICRO #### [facility] [address] [place] [address] Dr. Erlinda RiveraKetones Ql (U)NegativeNormalNEGATIVENorwalk Memorial HospitalComment on above:Performed By: #### KAELYN UMICRO #### [facility] [address] [place] [address] Dr. Erlinda RiveraLEUKOCYTESNegativeNormalNEGATIVENorwalk Memorial HospitalComment on above:Performed By: #### KAELYN UMICRO #### [facility] [address] [place] [address] Dr. Erlinda Baum Ql (U)NegativeNormalNEGATIVEThe [facility] SystemComment on above:Performed By: #### GHASSAN ART #### [facility] [address] [place] [address] Dr. Erlinda Santiago (U)5.5 [pH]Normal5-9The [facility] SystemComment on above: Performed By: #### GHASSAN ART #### [facility] [address] [place] [address] Dr. Erlinda RiveraSPEC GRAVITY1.606Cpshcm0.005-<=1.025The [facility] SystemComment on above:Performed By: #### GHASSAN ART #### [facility] [address] [place] [address] Dr. Erlinda Maher PROTEINNegativeNormalNEGATIVE/ TRACEThe [facility] Comment on above:Performed By: #### GHASSAN ART #### [facility] [address] [place] [address] Dr. Erlinda Cantu MICRO INDNOT INDICATEDNoMary Rutan HospitalComment on above:Performed By: #### GHASSAN ART #### [facility] [address] [place] [address] Dr. Erlinda Vogel Qn (U)0.2 {Shannan'U}/dLNormal0.2 - 1.0The [facility] SystemComment on above:Performed By: #### GHASSAN ART #### [facility] [address] [place] [address] Dr. Erlinda Osuna (BLD ALC)on 31-62-0331OGW NOTENOTE: 80 mg/dl is the legal limit for a blood alcohol levelNoMary Rutan HospitalComment on above: Performed By: #### ETH, SALYC, ACET, CMP #### [facility] [address] [place] [address] Dr. Coffey ChangEthanol [Mass/Vol]mg/dLNoMary Rutan HospitalComment on above:Performed By: #### ETH, SALYC, ACET, CMP #### [facility] [address] [place] [address] Dr. Erlinda Flores HCG QUALon 16-26-1294LSMSFDIBW, QUALNegativeNormalNEGATIVE The [facility] SystemComment on above:Performed By: #### ETH, SALYC, ACET, CMP #### [facility] [address] [place] [address] Dr. Erlinda RiveraPROF 14(COMP METB)on 61-26-3107Cibwrma [Mass/Vol]4.0 g/dLNormal 3.4-5.0The [facility] SystemComment on above:Performed By: #### GHASSAN ART #### [facility] [address] [place] [address] Dr. Erlinda RiveraAlbumin/Globulin [Mass ratio]1.2 {ratio}NormalThe [facility] Health SystemComment on above:Performed By: #### GHASSAN ART #### [facility] [address] [place] [address] Dr. Erlinda Higginbotham [Catalytic activity/Vol]53 U/QUazgbs64-971Lbv [facility] SystemComment on above:Performed By: #### GHASSAN ART #### [facility] [address] [place] [address] Dr. Erlinda Lucas [Catalytic activity/Vol]77 U/LCritically fxye32-03Gcl [facility] SystemComment on above:Performed By: #### GHASSAN ART #### [facility] [address] [place] [address] Dr. Erlinda Wolf gap [Moles/Vol]8.9 mmol/LNormalThe [facility] SystemComment on above:Performed By: #### SEBASTIÁN ARTRO #### [facility] [address] [place] [address] Dr. Erlinda Lopez [Catalytic activity/Vol]75 U/LCritically etfu59-36Ger [facility] SystemComment on above:Performed By: #### GHASSAN ART #### [facility] [address] [place] [address] Dr. Erlinda RiveraBilirubin [Mass/Vol]0.8 mg/dLNormal0.2-1.0The [facility] Comment on above:Performed By: #### KAELYN UMICRO #### [facility] [address] [address] [address] Erlinda RiveraCalcium [Mass/Vol]8.7 mg/dLNormal8.5-10.1The [facility] Comment on above:Performed By: #### ERUBerhane UMICRO #### [facility] [address] [address] [address] Erlinda RiveraChloride [Moles/Vol]103 mmol/OPocyky22-456Knx [facility] Comment on above:Performed By: #### KAELYN UMICRO #### [facility] [address] [place] [address] Dr. Erlinda RiveraCO2 [Moles/Vol]30.9 mmol/XPzyygc00.0-32.0The [facility] Comment on above:Performed By: #### KAELYN UMICRO #### [facility] [address] [place] [address] Dr. Erlinda RiveraCreatinine [Mass/Vol]0.90 mg/dLNormal0.55-1.02The [facility] SystemComment on above:Performed By: #### KAELYN UMICRO #### [facility] [address] [address] [address] Erlinda PetersonGFR-AF NIGERIEN>60Normal>=60The [facility] SystemComment on above:Performed By: #### ERUBerhane, UMICRO #### [facility] [address] [place] [address] Dr. Erlinda PetersonGFR-NON AF NIGERIEN>60Normal>=60The [facility] SystemComment on above:Performed By: #### JENNIFERR, UMICRO #### [facility] [address] [place] [address] Dr. Erlinda RiveraGlobulin (S) [Mass/Vol]3.4 g/dLNormalThe [facility] SystemComment on above:Performed By: #### SEBASTIÁN ARTRO #### [facility] [address] [address] [address] Erlinda RiveraGlucose [Mass/Vol]128 mg/dLCritically dryn79-251Kof [facility] SystemComment on above:Performed By: #### KAELYN UMICRO #### [facility] [address] [address] [address] Erlinda RiveraPotassium [Moles/Vol]3.8 mmol/LNormal3.5-5.1The [facility] Comment on above:Performed By: #### KAELYN UMICRO #### [facility] [address] [address] [address] Erlinda RiveraProtein [Mass/Vol]7.4 g/dLNormal6.4-8.2The [facility] Comment on above:Performed By: #### SEBASTIÁN ARTRO #### [facility] [address] [place] [address] Dr. Erlinda RiveraSodium [Moles/Vol]139 mmol/OXqfatv245-759Omk [facility] Comment on above:Performed By: #### KAELYN UMICRO #### [facility] [address] [place] [address] Dr. Erlinda RiveraUrea nitrogen [Mass/Vol]7.0 mg/dLNormal7.0-18.0The [facility] SystemComment on above:Performed By: #### ESTHER ARTICRO #### [facility] [address] [place] [address] Dr. Erlinda Ruiz nitrogen/Creatinine [Mass ratio]7.8 mg/mgNormalThe [facility] SystemComment on above:Performed By: #### KAELYN UMICRO #### [facility] [address] [place] [address] Dr. Erlinda SandersYLATEon 06-56-5770TYESNKIVZG<2.8Normal<=19.9The [facility] SystemComment on above:Performed By: #### KAELYN UMICRO #### [facility] [address] [address] [address] Erlinda RiveraXR CHEST 1 Von 75-28-7733CM CHEST 1 VEXAM: XR CHEST 1 V HISTORY: CHEST PAIN, [...] Electronically authenticated by: MARIPOSA MARTIN Date: 2022-03-19 04:21Normal [facility] Vital Signs Date TimeVital SignValuePerforming GzjsohckgRyixhvly60-86-4343 07:30-0400Body ciuqfjvggwy22 [degF][facility]09-14-2025 07:30-0400 Diastolic blood opablhnz82 mm[Hg][facility]09-14-2025 07:30-0400Heart rate67 /[facility]09-14-2025 07:30-0400Respiratory rate18 [facility]09-14-2025 07:30-5229PaY6% (BldA) [Mass fraction]96 %[facility] 06-16-2025 07:30-0400Systolic blood noststog934 mm[Hg][facility]09-10-2025 13:57-0400Body romsnd204.48 cmAdena Health System09-10-2025 13:57-0400Body jytrvf85.73 kgA[facility] 03-24-2025 07:30-0400Body quxogocjfjp83.3 [degF][facility]06-22-2025 07:30-0400Diastolic blood vxzchgto49 mm[Hg][facility]06-22-2025 07:30-0400Heart rate71 /[facility]06-22-2025 07:30-0400Respiratory rate18 [facility]06-22-2025 07:30-9741TkU8% (BldA) [Mass fraction]97 %[facility]06-22-2025 07:30-0400Systolic blood pvksulhd715 mm[Hg][facility]06-19-2025 14:18-0400Body .48 cmA[facility]a Health System06-18-2025 16:37-0400Body beztsx19.19 kgA[facility]a Health System05-21-2025 09:11-0400Body .5 cmAmartineznyasia Mojicajas [employer] Work Phone: [facility]05-21-2025 09:110400Body mass index (BMI) [Ratio]33.14 kg/t6Rquiiiatz Bowser [employer] Work Phone: [facility]05-21-2025 09:11-0400Body ijbfmyxeihp37.81 [degF]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 [employer] Work Phone: [facility]05-21-2025 09:11040Body oadgpx87.19 kgAlekim Bowser [employer] Work Phone: [facility]05-21-2025 09:110400Diastolic blood yojvpixt04 mm[Hg]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 [employer] Work Phone: [facility]05-21-2025 09:11040Heart rate 73 /minAlepreston Bowser [employer] Work Phone: [facility]05-21-2025 09:116013NjM9% (BldA) [Mass fraction]98 %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 [employer] Work Phone: [facility]05-21-2025 09:11040Systolic blood punhwexp841 mm[Hg]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 [employer] Work Phone: [facility]03-18-2025 11:23-0400Body mass index (BMI) [Ratio]34.39 kg/l4IilvpvlGelacio Jacome DO Work Phone: [facility] Letnig97-13-6928 11:23-0400Body .2 [degF]Gelacio Jacome DO Work Phone: [facility] Sjbwqk30-99-4284 11:23-0400Body qiqomi35.28 kgMicpatti Jacome DO Work Phone: [facility] Bhzeep83-54-6063 11:23-0400Diastolic blood mm[Hg]Gelacio Jacome DO Work Phone: [facility] Doqusm68-22-8893 11:23-0400Heart rate 92 /minGelacio Jacome DO Work Phone: [facility]03-18-2025 11:23-1356KwU9% (BldA) [Mass fraction]98 %Gelacio Jacome DO Work Phone: [facility] Oerojv18-10-9849 11:23-0400Systolic blood hmyyrkdy669 mm[Hg]Gelacio Jacome DO Work Phone: [facility]03-03-2025 08:51-0500Body hdwatl37.64 kgA[facility]03-03-2025 07:30-0500Body jyovkwhneeu18.6 [degF][facility]03-03-2025 07:30-0500 Diastolic blood dqvgotse40 mm[Hg][facility]03-03-2025 07:30-0500Heart rate56 /[facility]03-03-2025 07:30-0500Respiratory rate16 /[facility]03-03-2025 07:30-6515MrG0% (BldA) [Mass fraction]98 %[facility] 12-03-2024 07:30-0500Systolic blood ceovxeal878 mm[Hg][facility]03-01-2025 19:55-0500Body uqqrvdxysxd90 [degF]Michelle IBARRAC Work Phone: [phone]03-01-2025 19:55-0500 Diastolic blood ubfonfau77 mm[Hg]Michelle Daniels [employer] Work Phone: 1(513)[address] [place], [place] 546[address]03-01-2025 19:55-0500 Heart rate69 /minAlekimra Bowser [employer] Work Phone: 1(319)[address] [place], [place] 546[address]03-01-2025 19:55-0500 Respiratory rate16 /minAlekimra Bowser [employer] TE[employer] Work Phone: 1(931)[address] [place], [place] 546[address]03-01-2025 19:55-0500 SaO2% (BldA) [Mass fraction]95 %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 [employer] Work Phone: 1(482)[address] [place], [place] 546[address]03-01-2025 19:55-0500 Systolic blood lsruwevh413 mm[Hg]Michelle Daniels [employer] TE[employer] Work Phone: 1(387)[address] [place], [place] 5461902-28-2025 18:00-0500 Body yyvure735.48 cmAlexnyasia Daniels [employer] Work Phone: 1(332)[address] [place], [place] 546[address]02-28-2025 18:00-0500 Body qjbihb45.64 kgAlekimra Bowser [employer] Work Phone: 1(500)[address] [place], [place] [address]10-15-2024 07:30-0400 Body cpchivluurs34.6 [degF][facility]10-15-2024 07:30-0400Diastolic blood qeilbgre45 mm[Hg][facility] 07-17-2024 07:30-0400Heart rate69 /[facility] 07-17-2024 07:30-0400Respiratory rate16 /[facility] 07-17-2024 07:30-1017IkF5% (BldA) [Mass fraction]97 %[facility]10-15-2024 07:30-0400Systolic blood zerquayq515 mm[Hg][facility]10-14-2024 14:55-0400Body kltjai863.48 cmA[facility]a Health System10-14-2024 09:00-0400Body xyzrbp29.99 kgA[facility] System04-19-2024 07:30-0400Body zjusjknoqwg49.6 [degF][employer] Michelle Daniels Work Phone: 1(422)[address] [place], [place] 546[address]04-19-2024 07:30-0400 Diastolic blood xupxtgvf50 mm[Hg][employer] Michelle Daniels Work Phone: 1(812)[address] [place], [place] 546[address]04-19-2024 07:30-0400 Heart rate70 /minNP-C 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 Work Phone: 1(233)[address] [place], [place] 546[address]04-19-2024 07:30-0400 Respiratory rate18 /minNP-C 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 Work Phone: 1(214)[address] [place], [place] 546[address]04-19-2024 07:30-0400 SaO2% (BldA) [Mass fraction]97 %[employer] Michelle Daniels Work Phone: 1(800)[address] [place], [place] 546[address]04-19-2024 07:30-0400 Systolic blood mm[Hg][employer] Michelle Daniels Work Phone: 1(621)[address] [place], [place] 546[address]04-17-2024 14:08-0400 Body sitxjk209.48 cmNP-C Michelle Daniels Work Phone: 1(773)[address] [place], [place] 546[address]04-17-2024 04:17-0400 Body zszycv34.71 kgNP-C Michelle Daniels Work Phone: 1(686)[address] [place], [place] 546[address]01-11-2024 08:30-0500 Diastolic blood tncvcyeh28 mm[Hg][facility]01-11-2024 08:30-0500Systolic blood pacldbxi610 mm[Hg][facility] 10-13-2023 07:30-0500Body lasmvktwhdn08.9 [degF][facility]01-11-2024 07:30-0500Heart jidj915 /[facility] 10-13-2023 07:30-4147WkT2% (BldA) [Mass fraction]95 %[facility]01-10-2024 19:48-0500Respiratory rate18 /[facility]01-09-2024 09:40-0500Body jgzjoy875.48 cmA[facility] 10-10-2023 12:19-0500Body xcwolz49.34 kg[facility] 08-26-2023 07:30-0500Body czrqquqjftk43.9 [degF][facility]11-24-2023 07:30-0500Diastolic blood niubjrpp92 mm[Hg][facility]11-24-2023 07:30-0500Heart rate83 /[facility]11-24-2023 07:30-0500Respiratory rate16 /[facility]11-24-2023 07:30-3616QzB5% (BldA) [Mass fraction]97 %[facility]11-24-2023 07:30-0500Systolic blood pftepdgy678 mm[Hg][facility]11-22-2023 14:51-0500Body biekko516.48 cmA[facility] System11-22-2023 01:08-0500Body iyliex51.52 kgA[facility]a [facility] System08-09-2023 14:45-0400Body .48 cmRobert Ottoniel II Other [employer] Other 08-09-2023 14:45-0400Body mass index (BMI) [Ratio]36.1 kg/p4Trxvnu [place] Other [employer] Other 08-09-2023 14:45-0400Body .54 kgRobert [place] II Other [employer] Other 07-30-2023 07:24-0400Body gxkjyoqpwpb94.9 [degF]MD Miah Abreu Work Phone: 1([phone]07-30-2023 07:24-0400 Diastolic blood akmrxdep64 mm[Hg]MD Miah Abreu Work Phone: 1(116)[address] [place], [place] 79[address]107-30-2023 07:24-0400 Heart rate86 /minMD Miah Abreu Work Phone: 1(783)[address] [place], [place] 79[address]107-30-2023 07:24-0400 Respiratory rate16 /minMD Miah Abreu Work Phone: 1(911)[address] [place], [place] 79[address]107-30-2023 07:24-0400 SaO2% (BldA) [Mass fraction]94 %MD Miah Abreu Work Phone: 1(939)[address] [place], [place] 79[address]107-30-2023 07:24-0400 Systolic blood mfzkvegr102 mm[Hg]MD Miah Abreu Work Phone: 1(557)[address] [place], [place] 79[address]107-24-2023 15:03-0400 Body .48 cmMD Miahblas Abreu Work Phone: 1(885)[address] [place], [place] 79[address]107-24-2023 09:00-0400 Body nxoblf03.98 kgMD Miah Abreu Work Phone: 1(829)[address] [place], [place] 79[address]107-16-2023 07:30-0400 Body qgmvcmqwoyq66 [degF]MD Miah Abreu Work Phone: 1(354)[address] [place], [place] 79[address]107-16-2023 07:30-0400 Diastolic blood okcbpoos54 mm[Hg]MD Miah Abreu Work Phone: 1(525)[address] [place], [place] 79[address]107-16-2023 07:30-0400 Heart rate84 /minMD Miah Abreu Work Phone: 1(171)[address] [place], [place] 79[address]107-16-2023 07:30-0400 Respiratory rate17 /minMD Miah Abreu Work Phone: 1(420)[address] [place], [place] 79[address]107-16-2023 07:30-0400 SaO2% (BldA) [Mass fraction]97 %MD Miah Abreu Work Phone: [facility]07-16-2023 07:30-0400 Systolic blood jcvibzzp796 mm[Hg]MD Miah Abreu Work Phone: [facility]07-12-2023 14:37-0400 Body nycupt437.48 cmMD Miah Abreu Work Phone: [facility]07-12-2023 07:57-0400 Body .54 kgMD Miah Abreu Work Phone: [facility]11-30-2022 07:30-0500 Body qegrepzynap40.7 [degF][facility]11-30-2022 07:30-0500Diastolic blood peiihsaq68 mm[Hg][facility] 09-01-2022 07:30-0500Heart rate78 /[facility] 09-01-2022 07:30-0500Respiratory rate16 [facility] 09-01-2022 07:30-3414FdO5% (BldA) [Mass fraction]96 %[facility]11-30-2022 07:30-0500Systolic blood oygmybgr768 mm[Hg][facility]11-28-2022 15:01-0500Body iowgwd756.48 cmA[facility]a Health System11-28-2022 12:17-0500Body ehgmdf87.22 kgA[facility]09-10-2022 07:30-0400Body rferjiigvjf21.6 [degF][facility]09-10-2022 07:30-0400Diastolic blood eokyzckl76 mm[Hg][facility]09-10-2022 07:30-0400Heart rate76 /[facility]09-10-2022 07:30-0400Respiratory rate18 /[facility]09-10-2022 07:30-3790WwT8% (BldA) [Mass fraction]98 %[facility]09-10-2022 07:30-0400Systolic blood mm[Hg] [facility]09-06-2022 14:29-0400Body aacgkz352.48 cm [facility]09-05-2022 09:00-0400Body amqmiz68.8 kg [facility]06-21-2022 07:30-0400Body tpmahloenbi97.6 [degF][facility]06-21-2022 07:30-0400Diastolic blood ntwbegkw62 mm[Hg][facility]06-21-2022 07:30-0400Heart rate76 /[facility]06-21-2022 07:30-0400Respiratory rate16 /[facility]06-21-2022 07:30-3493NuM7% (BldA) [Mass fraction]95 %[facility]06-21-2022 07:30-0400 Systolic blood ztsskybe554 mm[Hg][facility]06-20-2022 16:06-0400Body fwuxhr066.48 cmA[facility]a [facility] System06-20-2022 14:29-0400Body kgAdena Health System06-17-2022 14:20-0400 Body mass index (BMI) [Ratio]29.6 kg/i1UbvbishnvAdena Health System 07-05-2019 07:38-0400Body Irivdfoxelt32.81 [degF][place] 07-05-2019 07:38-0400BP Ipecevkja78 mm[Hg][facility], [id number] 07:38-0400BP Oiyjlfeq871 mm[Hg][facility], CU60-30-0690 07:38-0400Pulse (Heart Rate)82 /minSumma Health, PJ49-07-4572 07:38-0400Pulse Tzeyujti98 %[facility], PK40-96-9113 07:38-0400 Respiratory Rate14 /[facility] [id number] 00:30-0400BMI (Body Mass Index)35.67 kg/m2[place], [place]09-30-2019 00:30-0400 Body ydlghd06.45 kgJobethanie [facility], PH95-63-5805 00:30-2101Jmagyv711.5 cmJobethanie [facility], [place] Encounters Encounter DateEncounter TypeCare ProviderFacilityStart: 08-06-2025 End: 71-92-3488Aymrfvcxs encounterBayley Malicki LPCNOMS [facility] HealthStart: 07-15-2025 End: 72-93-5961Prhqom flowsheetBayley Malicki LPCNOMS [facility] Start: 07-15-2025 End: 60-76-5803Oyajrc flowsheetBayley Malicki LPCNOMS [facility] Start: 07-15-2025 End: 59-36-1095wngfhhnejmNNOIBY MALICKINot AvailableStart: 07-12-2025 End: 68-48-9162ftpfzrjjuhVodqdp Petros RNProMedrussellville hospital Call CenterComment on above:Nausea (Primary Dx)Start: 06-12-2025 End: 05-86-4703Tfbstqyfwt and management of inpatientOlvin Rollins Facility[facility] Hospitaltart: [id number]-patient / Non-visitOlvin Rollins MDSelect [facility] Med OutPt Work Phone: Start: 79-95-7324szgzqlndwxJbpjoziicwj Abdelaziz [facility]: 04-17-2025 End: 55-41-2271Utjaefbfl encounterMerbhumika EDDYAProMedica Physicians Family MedicineComment on above:VomitingStart: 04-03-2025 End: 74-56-0334Ldzgfj Bharat Bowser COAL WHEELER-[employer] Work Phone: [facility] MedicineStart: 03-20-2025 Non-patient / Non-visitOlvin Rollins MD-[facility] Med OutPt Work Phone: Start: 03-20-2025 End: 10-51-2798Edwxnvaqyq and management of inpatientAlepreston Bowser Facility:[facility]: 79-62-4612Twewkzzgbx Recurring Olvin Rollins MDUNIVERSITY OF [facility] CredibleStart: 02-20-2025 End: 28-97-2935Exyrah outpatient visit 15 minutesAlepreston Bowser [employer]ER-[employer] Work Phone: [facility] Physicians Family MedicineComment on above: Hypothyroidism, unspecified type (Primary Dx); Healthcare maintenance; Encounter for lipid screening for cardiovascular disease; Primary hypertension; Fibromyalgia; Severe episode of recurrent major depressive disorder, 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 [facility] Amb[facility] PPGStart: 02-18-2025 End: 74-45-6609Zajnrohv SupportVero Arenas [employer] WHE[employer]ER-[employer] Work Phone: [facility] Physicians Family MedicineComment on above: Anxiety (Primary Dx); Hypothyroidism, unspecified typeStart: 12-19-2024 End: 22-48-6477PztwddUioyoeft Hurley CNBaylor Scott & [facility] Start: 12-18-2024 End: 82-75-5845Pkggwc outpatient visit 10 minutesMichael D Badik DO Work Phone: [facility] Physicians Family MedicineComment on above: Major depressive disorder, recurrent, severe without psychotic features (CMS- HCC) (Primary Dx); Other specified hypothyroidismStart: 12-18-2024 End: 01-10-8073ihdaumbzqqRFYUKYB D BADIKMercy Health [facility] Ambulatory PPGStart: 12-06-2024 End: 78-02-9059Bgaeerlwe encounterAlepreston Bowser [employer] Work Phone: [facility] MedicineStart: 12-01-2024 Non-patient / Non-visitAlexajazz Bowser IT TECHNICAL ARCHITECT-C Work Phone: [facility] Med OutPt Work Phone: Start: 11-30-2024 End: 81-17-2053Uunrgprzyj and management of inpatientAlelaurynjazz Bowser IT TECHNICAL ARCHITECT-C Work Phone: [facility] Work Phone: Start: 11-30-2024 End: 93-89-7862pyyjyqqkwuPibatsgvd David Niels IT TECHNICAL ARCHITECT-C Work Phone: [facility] Work Phone: Start: 11-30-2024 End: 89-67-2637Qiefzbko ReferredAlepreston Bowser IT TECHNICAL ARCHITECT-C Work Phone: [facility] Ctr-LAB Path Spec Moy HospStart: 22-04-1542Lvwhkqmgob [facility]-BH CredibleStart: 09-13-2024 End: 20-91-5498Wkahqu flowsheetTammy Badillo LSWNOMS FNR BHStart: 09-13-2024 End: 45-40-2646Detjxa flowsheetTammy Badillo LSWNOMS FNR BHStart: 09-13-2024 End: 69-60-1941ogobpctlodWDROW HARDYNot AvailableStart: 09-07-2024 End: 00-11-0155Ddeifb flowsheetTammy Badillo LSWNOMS FNR BHStart: 09-07-2024 End: 66-89-0664Bbqdrs flowsheetTammy Badillo LSWNOMS FNR BHStart: 09-07-2024 End: 12-07-3105ptnfgwqyxjPMDLP HARDYNot AvailableStart: 08-01-2024 End: 58-13-0103Vfckzsryd encounterFall River Hospital PARKStart: 07-31-2024 End: 89-89-7442Xpubhl flowsheetTammy Justino LSWNOMS FNR BHStart: 07-31-2024 End: 71-30-8361Xkklnh flowsheetTammy Justino LSWNOMS FNR BHStart: 07-31-2024 End: 24-52-2198feqprwikjePJWIR JUSTINONot AvailableStart: 07-26-2024 End: 12-68-5856ozjoutlbnqRENKRTNVEUniversity Medical Center HospitalStart: 07-26-2024 End: 95-90-6527dbvgibcwnqBRXWTIDFJBaylor Scott & [facility] Ambulatory PPGStart: 07-19-2024 End: 11-57-2578Yqhvifjob encounterTammy Justino LSWNO FNR BHComment on above:No show after recent hospitalization (Call placed to Lili Woo Md who is listed as patient's PCP.Patient was recently released from [facility] due to depression and was a no call no show for her appointment this morning at 10 am. )Start: 02-59-8212Kiu-patient / Non-visitDavis [facility] Med [facility] Work Phone: Start: 07-14-2024 End: 87-65-5608Vajqvxcqws and management of inpatientUniversity Hospitals [facility] C[facility]-[address] [place] [address] Work Phone: Start: 42-32-4021Badmzyldxq [facility] CredibleStart: 73-40-6499Vtm-patient / Non-visit [facility] Work Phone: Start: 05-30-2024 End: 23-37-4735dqlrjalxaxKISCLJMGWBaylor Scott & [facility] Ambulatory PPGStart: 81-20-3210Ksv-patient / Meo-wvvbsUT-K 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 Work Phone: [facility] Physician [facility] Med OutPt Work Phone: Start: 01-18-2024 End: 21-26-0054Hxwphzawjt and management of inpatientNP-C 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 Work Phone: [facility] Work Phone: Start: 01-18-2024 End: 70-01-1015Xdfcicmpe department patient visitALEXANDRA [facility] HospitalStart: 70-33-2590Ibsyfdmyz for other general examinationSUZANNAA Gino CUSHMANProMedica Amelia Court House HospitalStart: 12-02-2023 End: 03-94-9814hzyfsmwnxsDYJTWMUSN [facility] HospitalStart: 12-01-2023 End: 31-38-5402qixkerxmysROUKHSBSN [facility] HospitalStart: 43-47-5338Ozuglx flowsheetTammy Badillo LSWNOMS FNR BHStart: 09-90-1082Sonozp flowsheetTammy Badillo LSWNOMS FNR Start: 14-71-2597Kromnf flowsheetTammy Badillo LSWNOMS FNR Start: 38-67-3940Azdufu flowsheetTammy Badillo LSWNOMS FNR Start: 10-10-2023 End: 56-85-9529Crlmpxqror and management of inpatientOhio [facility] Work Phone: Start: 09-16-2023 End: 59-66-5041idhsfjarnqGkgenrKvefq: 08-23-2023 End: 55-24-7977Pbzpcdqohb and management of inpatientOhio [facility] Work Phone: Start: 05-11-2023 End: 79-22-0935dlqkvzaovfLhcuxc [place] Other [facility] [employer] Other Start: 63-25-8298Rqyqqd outpatient new 45 minutes Enrico Alcazar IIFPG [facility] OrthopedicsStart: 04-23-2023 End: 67-99-0494Pywvdqxvbv and management of inpatientMD Miahblas Abreu Work Phone: [facility] Work Phone: Start: 04-13-2023 End: 61-59-6156Ayaybmoqma and management of inpatientMD Miah Abreu Work Phone: [facility] Work Phone: Start: 09-30-2022 End: 83-74-5234eskpknebdaIE DOCTOR MISCFacility:M9Rywmf: 09-07-2022 End: 85-24-4102ryznlsjzafDV YARON HAYFacility:I1Olizw: 08-29-2022 End: 47-41-5324Njflzohlpo and management of inpatientUniversity Hospitals [facility] Ctr-1 SouthStart: 06-06-2022 End: 22-07-9602Sljxarvkix and management of inpatientOhio State [facility] Hospital-1 SouthStart: 06-06-2022 End: 98-66-2998htrxjkfhaqMPGYKB RODRIGUEZFacility:J9Amtnq: 04-06-2022 End: 62-81-3339kpsybchwaeVXOIHT RICKERMercy Tiffin HospitalStart: 04-06-2022 End: 50-61-3517Tclrdpevks hospital visit by Sandra Vazquez MD Work Phone: mthz LaboratoryStart: 03-24-2022 End: 45-58-8402vvqsuwntgbVTYCP PARKERFacility:Y7Dwxxq: 03-19-2022 End: 93-42-7396Rgucboeyro and management of inpatientOhio [facility] Hospital-1 SouthStart: 03-19-2022 End: 16-96-7503edczzvssxwGV DOCTOR MISCFacility:T8Hchkq: 07-02-2019 End: 51-51-1046Pviqadecfq and management of inpatientSREEKANTH V INDURTIMercy Flat Lick HospitalStart: 17-89-3863Ckncgoq encounter Nani Perkins AdmittingComment on above:N/AStart: 04-04-2017 End: 48-32-2508WwrsamfumxGCOFFT A NEUHOFFFacility:[facility] Procedures DateProcedureProcedure DetailPerforming ClinicianStart: 07-15-2025 End: 87-65-3027Wzrasmlbdav diagnostic evaluationPTSD (post-traumatic stress disorder)Goran Moore LPCComment on above:PTSD (post-traumatic stress disorder); Attention deficit hyperactivity disorder (ADHD), combined type; Opioid dependence in remission (HCC); Alcohol dependence in remission (HCC); Methamphetamine dependence in remission (HCC)Start: 21-03-9926Mqcwip-up visit Follow-upGELACIO JACOMEStart: 09-30-4099Iytrr depression screening assessment Gelacio Jacome DO Work Phone: Start: 07-65-2784Ylmct cultureStart: 09-13-2024 End: 49-54-2502Clwutdxgkejwu w/patient 45 minutesPTSD (post-traumatic stress disorder) (CMS/HCC)Cam BEACHWComment on above:PTSD (post-traumatic stress disorder) (CMS/HCC); Attention deficit hyperactivity disorder (ADHD), combined type (CMS/HCC); Opioid dependence in remission (CMS/HCC); Alcohol dependence in remission (CMS/HCC); Methamphetamine dependence in remission (CMS/HCC)Start: 09-07-2024 End: 96-36-1462Qqcwkvjlnxsma w/patient 60 minutesPTSD (post-traumatic stress disorder) (CMS/HCC)Cam BEACHWComment on above:PTSD (post-traumatic stress disorder) (CMS/HCC); Attention deficit hyperactivity disorder (ADHD), combined type (CMS/HCC); Methamphetamine dependence in remission (CMS/HCC); Alcohol dependence in remission (CMS/HCC); Opioid dependence in remission (CMS/HCC)Start: 07-31-2024 End: 53-78-1127Gcflddwbcmcgt w/patient 60 minutesPTSD (post-traumatic stress disorder) (CMS/HCC)Cam BEACHWComment on above:PTSD (post-traumatic stress disorder) (CMS/HCC); Attention deficit hyperactivity disorder (ADHD), combined type (CMS/HCC); Methamphetamine dependence in remission (CMS/HCC); Alcohol dependence in remission (CMS/HCC); Opioid dependence in remission (CMS/HCC)Start: 20-06-5306Zbefssnh identified in Urine by CultureStart: 23-98-6355Slfic depression screening assessmentTessie John CMAStart: 11-15-2023 End: 28-26-4414Ymfjbfsemwvfs w/patient 60 minutesPTSD (post-traumatic stress disorder) (CMS/HCC)Cam Badillo LSWComment on above:PTSD (post-traumatic stress disorder) (CMS/HCC); Attention deficit hyperactivity disorder (ADHD), combined type (CMS/HCC); Alcohol dependence in remission (CMS/HCC); Methamphetamine dependence in remission (CMS/HCC); Opioid dependence in remission (CMS/HCC)Start: 11-10-2023 End: 98-07-0343Cfoxtfgzlufvw w/patient 60 minutesPTSD (post-traumatic stress disorder) (CMS/HCC)Cam Badillo LSWComment on above:PTSD (post-traumatic stress disorder) (CMS/HCC); Alcohol dependence in remission (CMS/HCC); Opioid dependence in remission (CMS/HCC); Attention deficit hyperactivity disorder (ADHD), combined type (CMS/HCC); Methamphetamine dependence in remission (CMS/HCC)Start: 11-03-2023 End: 01-37-3246Cyhvefqaytzjj w/patient 60 minutesPTSD (post-traumatic stress disorder) (CMS/HCC)Cam Badillo LSWComment on above:PTSD (post-traumatic stress disorder) (CMS/HCC); Opioid dependence in remission (CMS/HCC); Methamphetamine dependence in remission (CMS/HCC); Alcohol dependence in remission (CMS/HCC); Attention deficit hyperactivity disorder (ADHD), combined type (CMS/HCC)Start: 25-27-8850Gvnpb cultureStart: 44-12-7308Ilkfzjs microbial cultureMD Miah Abreu Work Phone: Start: 39-82-0310Ghcbuzfz hiv-1&hiv-2 single result Juan Luis Whiting APRN - [employer] Work Phone: Start: 07-22-0851Otqscrjtiiinj metabolic panelErnest Henok CALZADAN - [employer] Work Phone: Start: 49-23-0667Vek prim src wet mount nfct agtErnest Henok COAL WHEELER - [employer] HOME Work Phone: Start: 04-06-2022T. PALLIDUM ABJuan Luis Whiting COAL WHEELER - [employer] HOME Work Phone: Start: 12-83-8019GAIHAUWLF PATIENTSREEKANTH INDURTI Start: 34-09-5155EPJKXNH STATUS (DIRECT)PREM INDURTIStart: 23-72-2287GF CONSULT TO HISTORY AND PHYSICALSREEJOSIE INDURTIStart: 71-41-7371XPNT GENERAL PREM INDURTIStart: 78-76-7776BHCS CODESREEKANTH INDURTIStart: 07-02-2019 MONITORSREEKANTH INDURTIStart: 17-62-7667XCXBTHP CESSATION EDUCATIONSRJOSIE INDURTIStart: 74-05-1708YYJZL SIGNSSRANGELINE CABRERAURTI Plan of Treatment DateCare ActivityDetailAuthorStart: 44-31-0974UFcQ,Tdap and Td Vaccines (2 - Td or Tdap)DTaP,Tdap and Td Vaccines (2 - Td or Tdap)[facility] SystemStart: 03-65-2658Nktzvko ScreeningTobacco ScreeningBellevue Hospital SystemStart: 73-91-7774Jezbm BMI ScreeningAdult BMI ScreeningKettering Health Greene Memorialca Health SystemStart: 54-23-9757Tbuhspp ScreeningTobacco ScreeningDelaware County Hospital Health SystemStart: 00-76-7467Flljv BMI ScreeningAdult BMI ScreeningDelaware County Hospital Health SystemStart: 42-81-5470Kprklhkayp ScreeningDepression ScreeningDelaware County Hospital Health SystemStart: 31-56-9935Ctslshh ScreeningTobacco ScreeningBellevue Hospital SystemStart: 08-06-2025 End: 69-99-6516Paexzm Work08/06/2025 12:30 PM EST Social Work [facility] [address] [facility] [address] [place] [address] Goran Moore LPCNOMS [facility] HealthStart: 07-30-2025 End: 96-50-9672Sjeujq Work07/30/2025 12:30 PM EDT Social Work [facility] [address] [facility] [address] [place] [address] Goran Moore LPCNOMS [facility] HealthStart: 65-61-9477Elpcp BMI ScreeningAdult BMI ScreeningProMadison Healthca Health SystemStart: 13-24-0643Sfqitot ScreeningTobacco ScreeningBellevue Hospital SystemStart: 09-31-2526BmnnkibhmTriHealth Good Samaritan Hospitaltart: 33-48-8637Qpugobsw to Social ServicesTriHealth Good Samaritan Hospitaltart: 02-93-4877Jbmvqyss admissionUniversity Hospitals [facility] Center CenterStart: 22-40-2206RojszbfpvUniversity Hospitals [facility] Center CenterStart: 88-87-6298YIFBR-19 Vaccine ()COVID-19 Vaccine ()NOMS HealthcareStart: 88-30-9672FQDLF-19 Vaccine () COVID-19 Vaccine ()[facility] SystemStart: 06-03-2025 Influenza vaccinationBellevue Hospital SystemStart: 05-23-2025 End: 63-70-1942UUC W Auto Differential panel - BloodCBC auto differential Lab Routine Healthcare maintenance Hx of iron deficiency anemia Expected: 05/23/2025 (Approximate), Expires: 02/20/2026[facility] SystemComment on above: Expected: 05/23/2025 (Approximate), Expires: 02/20/2026Start: 05-23-2025 End: 52-95-7322Atsxqbkrbshdv metabolic 2000 panel - Serum or PlasmaComprehensive metabolic panel Lab Routine Healthcare maintenance Encounter for lipid screening for cardiovascular disease Expected: 05/23/2025 (Approximate), Expires: 02/20/2026[facility] SystemComment on above:Expected: 05/23/2025 (Approximate), Expires: 02/20/2026Start: 05-23-2025 End: 18-60-8868Lqtencvmwuxqgx vitamin b-12Vitamin B12 Lab Routine Healthcare maintenance Fibromyalgia Severe episode of recurrent major depressive disorder, without psychotic features (CMS-HCC) Expected: 05/23/2025 (Approximate), Expires: 02/20/2026[facility] SystemComment on above:Expected: 05/23/2025 (Approximate), Expires: 02/20/2026Start: 05-23-2025 End: 01-55-7578Tnxw and TIBCIron and TIBC Lab Routine Healthcare maintenance Hx of iron deficiency anemia Expected: 05/23/2025 (Approximate), Expires: 02/20/2026ProMadison Healthca Health SystemComment on above:Expected: 05/23/2025 (Approximate), Expires: 02/20/2026Start: 05-23-2025 End: 99-84-5960Ynrql panelLipid panel Lab Routine Healthcare maintenance Encounter for lipid screening for cardiovascular disease Expected: 05/23/2025 (Approximate), Expires: 02/20/2026[facility] Work Phone: Comment on above:Expected: 05/23/2025 (Approximate), Expires: 02/20/2026Start: 05-23-2025 End: 23-45-8641ZUI with ReflexTSH with Reflex Lab Routine Hypothyroidism, unspecified type Healthcare maintenance Expected: 05/23/2025 (Approximate), Expires: 02/20/2026ProCleburne Community Hospital And Nursing Home Health SystemComment on above:Expected: 05/23/2025 (Approximate), Expires: 02/20/2026Start: 05-23-2025 End: 32-02-3783Zebhoek D 25 hydroxyVitamin D 25 hydroxy Lab Routine Healthcare maintenance Fibromyalgia Severe episode of recurrent major depressive disorder, without psychotic features ([facility]-HCC) Expected: 05/23/2025 (Approximate), Exp ires: 02/20/2026ProCleburne Community Hospital And Nursing Home Health SystemComment on above:Expected: 05/23/2025 (Approximate), Expires: 02/20/2026Start: 05-23-2025 End: 54-08-3935Mnhttqj encounter wgvwjmcis57/21/2025 1:20 PM EDT Office Visit [facility] [address] [place] [phone] 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 APRN-[employer] [address] [place] [address], [facility] [place] [place] [address] [facility] MedicineStart: 05-14-2025 End: 52-34-3810Ihzmbram Zuvfjei3705/14/2025 8:30 AM EDT Clinical Support [facility] [address] [place] [address] [place] [place] [address] Gelacio Jacome, DO [address] [place], [place] [id number] [facility] Gregorio MedicineStart: 31-11-5227PjsrhmmevTriHealth Good Samaritan Hospitaltart: 03-20-2025 Referral to Social ServicesTriHealth Good Samaritan Hospitaltart: 03-20-2025 Hospital admissionTriHealth Good Samaritan Hospitaltart: 02-20-2025 End: 08-47-9917Uuffoid encounter /21/2025 9:20 AM EDT Office Visit [facility] [address] [facility] [address] [place], [place] [address] 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, COAL WHEELER-[employer] [address] [place] [address], [place] [address] Lynnette Gregorio MedicineStart: 02-06-2025 End: 03-12-8337Zyalond encounter /07/2025 10:40 AM EDT Office Visit [facility] [address] [facility] [address] [place], [place] [address] 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, COAL WHEELER-[employer] [facility] [address] [place] [address], [place] [address] Lynnette Gregorio MedicineStart: 01-18-2025 End: 86-56-4154Lydbakk profile includes TSH HL0Xxnxete profile includes TSH FT4 Lab Routine Other specified hypothyroidism Expected: 01/18/2025 (Approximate), Expires: 12/18/2025[facility] Work Phone: Comment on above:Expected: 01/18/2025 (Approximate), Expires: 12/18/2025Start: 87-59-4191PgwxxhaitTriHealth Good Samaritan Hospitaltart: 92-31-0810Gmmqyose admissionTriHealth Good Samaritan Hospitaltart: 11-30-2024 [facility] Hospitaltart: 34-19-5772Hpynvryk identified in Urine by CultureUrine CultureTriHealth Good Samaritan Hospitaltart: 11-30-2024 Depression ScreeningDepression ScreeningBellevue Hospital SystemStart: 11-30-2024 Urine cultureTriHealth Good Samaritan Hospitaltart: 09-20-2024 End: 15-79-3512Arcpbg Work09/20/2024 11:00 AM EST Social Work [facility] [address] [place] [place] [address] Cam Badillo, LSWNOMS FNR BHStart: 09-13-2024 End: 00-83-0342Qzimya WorkNOMS FNR BHComment on above:ArrivedStart: 09-07-2024 End: 22-10-8033Pwufqf Work09/07/2024 8:00 AM EST Social Work [facility] [address] [place] [address] Cam Badillo,AUTISM TUTOR ArrivedNOMS FNR BHComment on above:ArrivedStart: 08-09-2024 End: 72-75-7300Kotgwh Work08/09/2024 10:00 AM EST Social Work [facility] [address] [place] [address] Cam Badillo, LSWNOMS FNR BHStart: 07-31-2024 End: 89-24-8026Oyfude Work07/31/2024 11:00 AM EDT Social Work [facility] [address] [place] [place] [address] Cam Badillo, AUTISM TUTOR ArrivedNOMS FNR BHComment on above:ArrivedStart: 09-84-6062FwgeliisaTriHealth Good Samaritan Hospitaltart: 07-15-2024 Referral to clinical allergistTriHealth Good Samaritan Hospitaltart: 07-15-2024 Referral to Social ServicesTriHealth Good Samaritan Hospitaltart: 07-14-2024 Hospital admissionTriHealth Good Samaritan Hospitaltart: 26-92-3542GDHQD-19 Vaccine ()COVID-19 Vaccine ()[facility]icL[facility] SystemStart: 12-01-8958Thylsvkgp vaccinationNOMS HealthcareStart: 25-00-3805OrawrgwvgUniversity Hospitals [facility] CenterStart: 77-70-8482Guzyuose to [facility] CenterStart: 70-50-5994Swspkptc admission [facility] Hospitaltart: 11-21-2023 End: 78-06-6029Hwfocm Work11/21/2023 11:00 AM EST Social Work [facility] [address] [place] [address] Cam Badillo, [facility] [address] [place] [address]ATSH FNR BHStart: 11-15-2023 End: 71-52-5933Ohrqup WorkNOMS FNR BHComment on above:ArrivedStart: 11-10-2023 End: 64-00-7091Zqmqsz Work11/10/2023 11:00 AM EST Social Work [facility] [address] [place] [place] [address] Cam Badlilo, [facility] [address] [place] [address] ArrivedNOMS FNR BHComment on above:ArrivedStart: 04-19-6245ArwyickwrTriHealth Good Samaritan Hospitaltart: 50-62-1207Nvufwjey to [facility] CenterStart: 54-41-1306Uiygclit admissionTriHealth Good Samaritan Hospitaltart: 10-00-9459YcdsxqtfwUniversity Hospitals [facility] CenterStart: 72-89-9292DiqbaimppUniversity Hospitals [facility] CenterStart: 26-48-5756Ubjdckiw to clinical allergistUniversity Hospitals [facility] CenterStart: 02-48-2620Errrokgo to [facility] CenterStart: 34-87-2693Avewaady admission [facility] CenterStart: 59-18-7119SkzohblwzUniversity Hospitals [facility] CenterStart: 53-99-8379Nbmflerwy vaccinationInfluenza Vaccine (#1)[facility]OM[facility] HealthcareStart: 28-25-0263Wmyymecwonhobx of varicella zoster vaccineZoster (Shingles) Vaccine (1 of 2)[facility] SystemStart: 97-60-7225FworwhdkhUniversity Hospitals [facility] CenterStart: 22-21-2664WpiklizzitkpJupxuswvc Regional Medical CenterStart: 36-74-1797Gzuvgyud to clinical allergistUniversity Hospitals [facility] CenterStart: 84-01-9135Tyqndwni admissionUniversity Hospitals Cleveland [facility] Center CenterStart: 65-44-4247LcicewduyUniversity Hospitals [facility] CenterStart: 48-57-1650Nwlzuomr to Social ServicesUniversity Hospitals [facility] CenterStart: 34-04-9270Wflhb disorder assessmentUniversity Hospitals [facility] Center CenterStart: 61-77-5098Ezfqwqgs admission [facility] CenterStart: 16-25-5209IodaxvfeeUniversity Hospitals [facility] CenterStart: 36-33-8163Ibfmbfkk admissionUniversity Hospitals Cleveland [facility] Center CenterStart: 34-72-0730GymlttqenUniversity Hospitals [facility] CenterStart: 16-94-3209Iqgemncl to Social ServicesUniversity Hospitals [facility] CenterStart: 87-93-2045Yoawtfws admission [facility] Hospitaltart: 64-56-9587Jwmvixqrh vaccinationFlu vaccine (#1)[facility]ITALStart: 18-24-4607ZerkrhpvnUniversity Hospitals [facility] Ctr Work Phone: Start: 23-88-6459Pttyvfhf admissionUniversity Hospitals [facility] Center Ctr Work Phone: Start: 36-55-8819Tpcvqaqnl vaccinationFlu vaccine (#1) [facility] Northart: 21-51-6772Ilkspjphz for malignant neoplasm of colon [facility]: 29-35-7560Dlwbt panelLipidsSentara Leigh Hospital: 91-76-8130Prwlz screenLipid [facility]: 34-46-7417Jxdmhjiqu for malignant neoplasm of breastMammogramNOMS Healthcare Start: 94-86-6589Hrhrdrhqs for malignant neoplasm of cervixSentara Leigh Hospital: 94-61-3614Cenkgqdh cancer screenCervical cancer screenPremier Health [facility] Hospital Northart: 94-67-2944Umvwkrwvx for malignant neoplasm of cervixPap smearBON [facility]: 29-00-0302RHrA/Tdap/Td vaccine (1 - Tdap)DTaP/Tdap/Td vaccine (1 - Tdap)[facility]: 84-86-0843Wrmyw BMI Follow Up PlanAdult BMI Follow Up ScionHealthtart: 84-13-8878Gjdlwxtso C screeningHepatitis C screenSentara Leigh Hospital: 69-81-2531VNV screen HIV screenMagruder Hospital: 62-13-4914YNI screeningHIV screenSentara Leigh Hospital: 88-34-3154Lniobjrbcw MonitoringDepression Monitoring [facility]: 33-14-2746Amwpdcipzmze 0-64 years Vaccine (1 - PCV)Pneumococcal 0-64 years Vaccine (1 - PCV)[facility]: 35-73-8146Vyjkpdbrukmq 0-64 years Vaccine (1 of 1 - PPSV23)Pneumococcal 0-64 years Vaccine (1 of 1 - PPSV23)[facility]: 11-00-7982LQHEV-19 Vaccine (1)COVID-19 Vaccine (1)[facility]: 1975 Screening for malignant neoplasm of colonNOMS Fairfield Medical CenterStart: 72-00-4319RjmyxafSt. Francis Hospital End: 04-06-2022.trachomatis N.gonorrhoeae DNASovah Health - [place] Phone: comment on above:Once for 1 Occurrences starting 04/06/2022 until 04/06/2022Hepatitis A virus antibody, IgM [facility] B core antibody measurement, IgM [facility] B virus surface Ag [Presence] in Serum or Plasma by ImmunoassayAdena Health System End: 03-69-2420Mhzgwlfhg C RNA, quantitative, PCRSovah Health - [place] Phone: Comment on above:Once for 1 Occurrences starting 04/06/2022 until 04/06/2022Hepatitis C virus IgG Ab [Presence] in Serum or Plasma by ImmunoassaySouthwest General Health Center C virus RNA [log units/volume] (viral load) in Serum or Plasma by TISHA with probe detection [facility] SystemHepatitis C virus RNA [Units/volume] (viral load) in Serum or Plasma by TISHA with probe detectionAdena Health SystemPatient EducationUniversity Hospitals [facility] Work Phone: Patient referralUniversity Hospitals [facility] Work Phone: TSH with ReflexTSH with Reflex Lab Routine Anxiety Hypothyroidism, unspecified type 02/18/2025 10:34 AM EDTPro[facility] Work Phone: Immunizations Immunization DateImmunizationNotesCare JsfdbnnwZkdbswol44-02-1166zohowacbf virus vaccine, unspecified formulationVero Arenas [employer] [facility] Work Phone: Wilson HealthRmfjsd35-39-4379CHHMO-17 Pfizer (bivalent)Enrico Cabo Rojo II Other [facility]10-11-2022influenza, injectable, quadrivalent, preservative freeRobert Cabo Rojo II Other [facility]10-11-2022influenza virus vaccine, unspecified formulationCam Badillo SSM RehabKqbjvlxdgl63-42-9246 COVID-19 Vaccine Pfizer - Documentation Purposes OnlyRobMotif Investing II Other [facility]10-20-2021influenza, injectable, quadrivalent, preservative freeAdena Health System 87-01-1080CFDRL-19 Vaccine [facility] - Documentation Purposes OnlyRobRyonetle II Other [facility]03-03-2020Influenza, injectable, Madin Dacia Canine Kidney, preservative free, quadrivalentAdena Health System12-08-2017tetanus toxoid, reduced diphtheria toxoid, and acellular pertussis vaccine, adsorbedRobert Cabo Rojo II Other [facility] SystemNEGATED: Highlighted row has not occurred!33-23-6799uuieulzcd, injectable, quadrivalent, preservative freeAdena Health System Payers DatePayer CategoryPayerPolicy [id number]-[id number] [id number] [id number] ADVANTAGE [employer] xxxxxxxxxxx 2014-Present [phone] [address] [place], [place] [address]wgorwtrewkn [id number]09-14-7696Jtgvyyr [id number] 2..1.689295.3.579.2.[id number] 2.0.1.497273.3.579.2.65231-10-4472Mzjuuty1317097 2..1.821920.3.579.2.16096-07-1556Qspporb7451867 2.0.1.118030.3.579.2.33914-60-3278Viplulg6704852 2.0.1.210837.3.579.[id number] 2.0.1.275323.3.579.2.76342-56-7960Rozxnja9433755 2..1.539708.3.579.2.08573-84-1578Rhorjvi88760556 2.0.1.427389.3.579.2.924237-41-3945Tpdavmv27366449 2.0.1.742394.3.579.2.617952-04-7518Svrzdej92482239 2..1.150863.3.579.2.145823-62-6181Xwnbmyf71890344 2.0.1.845870.3.579.2.106304-04-6334Bzcpida161136348 2..1.079992.3.579.2.829153-23-0663Rdshrel964265734 2..1.167576.3.579.2.117539-17-8315Zvxruia320597825 2..1.967557.3.579.2.580263-15-6041Acepeve47349860 2..1.421171.3.579.2.824914-32-5774Xljlcfg18325843 2..1.615289.3.579.2.005698-82-4086Jofbsls53548242 2..1.686554.3.579.2.185244-25-5086Lbqwghm6138461 2..1.780177.3.579.2.619338-05-5908Efowifg8986230 2..1.361106.3.579.2.827867-94-9705Kvoqifi1366173 2..1.005939.3.579.2.1259 [id number]jozgb28421521 2..1.280882.3.579.2.361Eswevzi50139383 2.0.1.650695.3.579.2.531 Hetgvtm68578700 2..1.937077.3.579.2.096Auvkjlr34817278 2.16.840.1.183284.3.579.2.345Rrgabyo64858876 2.16.840.1.585101.3.579.2.531 Social History DateTypeDetailFagenesis medical centerStart: 09-09-2017 End: 52-76-8948Mhbxyez smoking status NHISLight tobacco smokerBON HONORHEALTH SCOTTSD[facility]A MEDICAL CENTERPrepClass [facility] Health Systemart: 05-23-1998 End: 88-57-3047Eggmblg of tobacco useCigarette [facility]: 07-03-2019 End: 38-24-6328Xdadxpticc smoked current (pack per day) - ReportedUNC Health Chathamtart: 07-03-2019 End: 47-69-4578Rybqnkm intakeYeMarshfield Medical Center Rice Lake SystemStart: 13-43-5817Bdgqpjg CommentoccassMeeker Memorial Hospital: 83-79-8107Yjw Assigned At BirthNot on [facility]: 09-09-2017 End: 63-03-6978Utejqgj use and exposureSmokeless tobacco non-userBON durchblicker.at Phone: start: 45-52-5722Bemnnzb intakeCurrent drinker of alcohol (finding)[facility] durchblicker.at Phone: start: 08-68-9154Uhbbdjr SDOH Alcohol Comment occassionalBON HONORHEALTH SCOTT[facility]A MEDICAL CENTERPrepClass [facility]ITALUnited [place] Phone: start: 06-07-2022 End: 92-80-1566Abhjjpe smoking status NHISSmoker (finding)[facility] Hospitaltart: 92-59-0471Scu Assigned At BirthFeAvita Health System Ontario Hospitaltart: 08-30-2022 End: 90-53-8158Ghhvptd smoking status NHISEx-smoker (finding)[facility] Hospitaltart: 98-33-9081Dummfdv smoking status NHISNever smoked tobacco (finding)[facility] SystemTobacco smoking status NHISTobacco smoking consumption unknownNOMS HealthcareStart: 43-03-9432Gpzchmq smoking status NHISOccasional tobacco smokerBellevue Hospital SystemStart: 07-26-2024 End: 75-52-4374Adllqefev beverage intakeEx-drinker (finding)[facility] SystemStart: 52-00-7250Tlkhitahvi depression screening iqsnpisvet6CqxRnvdon Health SystemStart: 91-26-4707Vllwcuv Commentbeer and liquourProShelby Memorial Hospital SystemStart: 05-08-2015 End: 82-19-9178OgeDyxlaq (finding)[facility] SystemStart: 06-12-2025 Tobacco smoking status NHISSmokes tobacco daily (finding)[facility] Goals DatePatient GoalDesired Activity/StatePersonal health goalComment on above: Evaluation of progress towards goal: admitted to hospital Functional Status ScqwLzirwvcmgtOiprlhIayqmgjf66-11-3205Wngowjzkbm statusPatient at Baseline [facility] Work Phone: [phone]bpywxfa statusPatient Not at Baseline [facility] Work Phone: [phone] statusPatient at Baseline [facility] Work Phone: [phone]opqctst statusPatient at Baseline [facility] Work Phone: [phone]z statusPatient at Baseline [facility] Work Phone: [phone] statusPatient at Baseline [facility] Work Phone: [phone] statusPatient at Baseline [facility] Work Phone: [phone] statusPatient at Baseline [facility] Work Phone: [phone]wmyygot statusPatient at Baseline [facility] Work Phone: [phone] statusPatient at Baseline [facility] Work Phone: [phone] statusPatient at Baseline [facility] Work Phone: Mental Status YjcnCfhbhphtvmYkebyfGvkvvnpx17-92-3188Gsupkdkpq functionCognitive Status Patient at BaselineUniversity [facility] Work Phone: [phone] functionCognitive Status Patient Not at BaselineUniversity Hospitals [facility] Work Phone: [phone] functionCognitive Status Patient at BaselineUniversity [facility] Work Phone: [phone]673Fctioppon functionCognitive Status Patient at [facility] Work Phone: [phone]66Kcvsclsvm functionCognitive Status Patient at BaselineUniversity [facility] Work Phone: [phone] functionCognitive Status Patient at BaselineUniversity [facility] Work Phone: [phone] functionCognitive Status Patient at [facility] Work Phone: [phone] functionCognitive Status Patient at [facility] Work Phone: [phone] functionCognitive Status Patient is Progressing Toward [facility] Work Phone: [phone] functionCognitive Status Patient at [facility] Work Phone: [phone]pozvxpqz functionCognitive Status Patient at [facility] Work Phone: Clinical Notes 06-07-2022 to 08-06-2025 Note Date & XumhKmxzSodhkcvp05-41-9051 Telephone encounter Note* Telephone Encounter - Goran MooreANAYA - 08/06/2025 11:00 AM EST Client cancelled her appointment today so clinician called client during scheduled appointment time. Clinician left a voicemail, offered a final appointment, explained resignation, transfer/referral options, and resources. Clinician recommended counseling at [facility] where client receives medication m anagement, telehealth would be an option, and case management. [facility] HospitalEmeyowsziq34-24-3251 Miscellaneous Notes* Telephone Encounter - Goran Moore LPC - 08/06/2025 11:00 AM EST Client cancelled her appointment today so clinician called client during scheduled appointment time. Clinician left a voicemail, offered a final appointment, explained resignation, transfer/referral options, and resources. Clinician recommended counseling at [facility] where client receives medication m anagement, telehealth would be an option, and case management. documented in this encounterSac-Osage HospitalJmvpmpzhzq42-79-9162 Miscellaneous Notes* Telephone Encounter - Tiny Morrell RN - 07/12/2025 3:33 PM EDT Contract: 148 Patient calling to request refill of Zofran Had been very nauseated/ no vomiting States that her nausea has been so severe that she cannot even get off the couch States that she is able to keep food and liquids down Has an appointment with GI but needs something prior to this States that she is not going to the ER or urgent care and has been trying to reach the office for the last 2 days and cannot wait until Tuesday [place] in [place] Called 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 CNP on her cell phone- she informed me that she in on maternity leave I called Vero Arenas CNP on her cell phone- Vero voiced that she will send refill Zofran for patient per request. Updated patient on the above- Reason for Disposition [1] Prescription refill request for NON-ESSENTIAL medicine (i.e., no harm to patient if med not taken) AND [2] triager unable to refill per department policy Protocols used: Medication Refill and Renewal Call-A- documented in this encounterAmy Ville 38286-10-2025 Telephone encounter Note* Telephone Encounter - Tiny Morrell RN - 07/12/2025 3:33 PM EDT Contract: 148 Patient calling to request refill of Zofran Had been very nauseated/ no vomiting States that her nausea has been so severe that she cannot even get off the couch States that she is able to keep food and liquids down Has an appointment with GI but needs something prior to this States that she is not going to the ER or urgent care and has been trying to reach the office for the last 2 days and cannot wait until Tuesday [place] in [place] Called 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 CNP on her cell phone- she informed me that she in on maternity leave I called Vero Arenas CNP on her cell phone- Vero voiced that she will send refill Zofran for patient per request. Updated patient on the above- Reason for Disposition [1] Prescription refill request for NON-ESSENTIAL medicine (i.e., no harm to patient if med not taken) AND [2] triager unable to refill per department policy Protocols used: Medication Refill and Renewal Call-A-AH Premier HealthBirchboxScptsc81-51-8201 Hospital Discharge instructions Additional Instructions Important Contact Information You can call [facility] at [phone] any time day or night if you have emergent questions or question regarding discharge instructions. If at any time you are feeling an increase in your psychiatric symptoms, call your physician or behavioral healthcare provider. If any time you have thoughts of harming yourself or others contact one of the following: Call 8-8 (available 25/04) Crisis Text Line (available 25/04) text 4HOPE to [phone] [facility] Hope Line (available 8 a.m. Midnight) call [phone] ([phone]) [facility] Work Phone: [phone] 115-761407-16-2025 Miscellaneous Notes* Telephone Encounter - Karley Spence CNA - 04/17/2025 9:12 AM EDT Debra called she was requesting a refill on Zofran but MA informed her there was a refill on that medication to call pharmacy to refill. Patient state she was now vomiting and would like to know if there is any other recommendations. Please advise * Telephone Encounter - PA Townsend - 04/17/2025 9:12 AM EDT She has been experiencing nausea for over 2 weeks now. She should be evaluated. Thank you. * Telephone Encounter - Karley Spence CNA - 04/17/2025 9:12 AM EDT Spoke with Debra, She ended up going to ER for vomiting. She requested a [facility] referral. BRITTNY gave her the number from previous referral that was sent to call. She will call office if newreferral is needed. documented in this encounterWilson Health07-16-2025 Telephone encounter Note* Telephone Encounter - Karley Spence CNA - 04/17/2025 9:12 AM EDT Debra called she was requesting a refill on Zofran but MA informed her there was a refill on that medication to call pharmacy to refill. Patient state she was now vomiting and would like to know if there is any other recommendations. Please advise [facility]07-16-2025 Telephone encounter Note* Telephone Encounter - PA Townsend - 04/17/2025 9:12 AM EDT She has been experiencing nausea for over 2 weeks now. She should be evaluated. Thank you. [facility]07-16-2025 Telephone encounter Note* Telephone Encounter - Karley Spence CNA - 04/17/2025 9:12 AM EDT Spoke with Debra, She ended up going to ER for vomiting. She requested a [facility] referral. MA gave her the number from previous referral that was sent to call. She will call office if newreferral is needed. [facility]06-18-2025 Evaluation note* Diagnosis Onset Date Resolution Status Admit Date Acute anxiety acuteJune 2024 4:03pmBipolar disorder current episode depressedacuteJune 2024 4:03pmGeneralized anxiety disorderacuteSeptember 2024 1:31pm GERD (gastroesophageal reflux disease)acuteSeptember 2024 1:31pmMood disorderacuteSeptember 2024 1:31pmSuicidal ideationresolvedSeptember 2024 1:31pm [facility] Work Phone: [phone] 978-926205-21-2025 History of Present illness Narrative* PA Townsend - 02/20/2025 9:20 AM EDT Subjective Patient ID: Debra Scott is a 49 y.o. female. HPI Debra presents to the office for follow up on hyypothyroidism. She was seen on 12/18/2024 were labs showed TSH was slightly off. She was therefore started on levothyroxine 75 mcg once daily exceptto hold 1 day a week. She had recheck labs completed on 02/18 2025 and TSH is WNL. She reports she has not noticed any change however labs are exactly where we need them to be. She reports she continues with menopausal symptoms and has increased anxiety and depression. However she is following withmental health specialists and counseling. The following portions [...] (75 mcg total) by mouth in themorning. - TSH with Reflex; Future Healthcare maintenance [...] major depressive disorder, without psychotic features (CMS-HCC) - Vitamin B12; Future - Vitamin D 25 hydroxy; Future Hx of iron deficiency anemia - CBC auto differential; Future - Iron and TIBC; Future - ferrous sulfate 325 (65 FE) MG tablet; Take 1 tablet (325 mg total) by mouth in the morning. Other orders - ondansetron ODT (ZOFRAN ODT) 4 mg disintegrating tablet; Dissolve 1 tablet (4 mg total) on tongueevery 8 (eight) hours as needed for nausea. PA Townsend 02/20/25 0936 documented in this encounterWilson Health05-19-2025 History of Present illness Narrative* Carmita Fletcher CMA - 02/18/2025 10:20 AM EDT Patient is here for nurse visit. They are here for a blood draw. Venipuncture performed in the right arm. Patient had no adverse reactions. documented in this encounterWilson Health03-18-2025 Evaluation + Plan note* Assessment & Plan Note - Gelacio Jacome DO - 12/18/2024 11:58 AM EDT Associated Problem(s): Other specified hypothyroidism Last TSH from 12/01/24 showed TSH slightly decreased. With levothyroxine 75 mcg take 1 tablet daily except for 1 day per week when hold medication. Will recheck levels in 6-8 weeks [facility]03-18-2025 Miscellaneous Notes* Assessment & Plan Note - Gelacio Jacome DO - 12/18/2024 11:58 AM EDTAssociated Problem(s): Other specified hypothyroidism Last TSH from 12/01/24 showed TSH slightly decreased. With levothyroxine 75 mcg take 1 tablet daily except for 1 day per week when hold medication. Will recheck levels in 6-8 weeks * Assessment & Plan Note - Gelacio Jacome DO - 12/18/2024 11:57 AM EDT Associated Problem(s): Major depressive disorder, recurrent, severe without psychotic features (CMS-HCC) Symptoms improved since hospitalization. Patient denies any suicidal ideation. Continue with Pristiq 25 mg daily along with other medications. Follow with [facility] for psychiatric care documented in this encounterWilson Health03-18-2025 Evaluation + Plan note* Assessment & Plan Note - Gelacio Jacome DO - 12/18/2024 11:57 AM EDT Associated Problem(s): Major depressive disorder, recurrent, severe without psychotic features (CMS-HCC) Symptoms improved since hospitalization. Patient denies any suicidal ideation. Continue with Pristiq 25 mg daily along with other medications. Follow with [facility] for psychiatric care [facility]03-18-2025 History of Present illness Narrative* Gelacio Jacome DO - 12/18/2024 11:30 AM EDT Images from the original note were not included. [facility] [address] [place] [address] [place] [address] Patient: Debra Scott Date of : 1975 Encounter Date: 12/18/2024 Subjective: Chief Complaint Chief Complaint Patient presents with Follow-up Discharge follow up History of Present Illness Debra Scott is a 49 y.o. female, established patient, that presents to the office for hospitalfollow up. Depression Visit: Follow-up (Hospitalized at [facility] from 11/30- 12/03/24 for Major depressive disorder with suicidal ideation) Initial visit: Symptoms: depressed mood (She had increased depression over the winter.) Symptoms: no palpitations Follow-up visit: Symptoms: no suicidal ideas (Denies any thoughts of hurting herself currently) Symptoms comment: On admission was experiencing feeling of overwhlemed, hopeless and worthless thathad been triggered by family conflict and health concerns for family member : Follows with [facility] in [place] for care. has appointment in early January. Started on Zxbcuyu60 mg daily which she is tolerating well [...] Overdose Peptic ulceration Rheumatoid arthritis Rheumatoid arthritis ([facility]) 08/16/2022 [place] d/t ultram Severe episode of recurrent major depressive disorder, without psychotic features ([facility] 07/26/2024 Urinary tract infection Past Surgical History: Procedure Laterality Date ABDOMINAL SURGERY exploratory states she had infection ABLATION ENDOMETRIAL HTA N/A 05/16/2017 Performed by Yusuf Campuzano MD at [facility] SURGERY ANTERIOR CERVICAL DISCECTOMY W/ FUSION C5 and C6 CERVICAL FUSION SECTION 12/05/2009 D AND C HYSTEROSCOPY N/A 05/16/2017 Performed by Yusuf Campuzano MD at [facility] SURGERY HYSTERECTOMY complete Family History [...] daily along with other medications. Follow with [facility] for psychiatric care Other specified hypothyroidism Last [...] days before next appointment Follow up with [facility] Follow up 6-8 weeks hypothyroidism - Gelacio Jacome DO 12/18/24 12:15 PM documented in this [facility]03-18-2025 Instructions* Patient Instructions* Gelacio Jacome DO - 12/18/2024 11:30 AM EDT Continue to work toward stopping smoking and continue to be active with regular exercise to help with mood. Do not take levothyroxine 75 mcg one day per week but continue to take 1 tablet daily the other 6 days. Recheck blood work a couple of days before next appointment Follow up with [facility] documented in this encounterWilson Health03-06-2025 Miscellaneous Notes* Telephone Encounter - Jocelyne Glover - 12/06/2024 8:11 AM EST Office received discharge summary from [facility]. Patient was admitted on 11/20/2024 and discharged on 12/03/2024. Hostess called patient to see if patient would like to schedule transitional care visit in office. Patient states that she is in [place] at the moment, and will call office on Tuesday to schedule an appointment as she would like to be seen in office for check up/medication refill. Did not schedule appointment at this time. documented in this [facility]03-06-2025 Telephone encounter Note* Telephone Encounter - Jocelyne Sellersu - 12/06/2024 8:11 AM EST Office received discharge summary from [facility]. Patient was admitted on 11/20/2024 and discharged on 12/03/2024. Hostess called patient to see if patient would like to schedule transitional care visit in office. Patient states that she is in [place] at the moment, and will call office on Tuesday to schedule an appointment as she would like to be seen in office for check up/medication refill. Did not schedule appointment at this time. [facility]03-03-2025 [place] [address] Discharge Summary Signed Patient: Debra Scott MR#: [id number] : 1975 Acct:[id number] Age/Sex: 49 / F Adm Date: 5 Loc: Room: [address] [place] [address]: Olvin Rollins MD Copies to: MD Miah Ibanez MD Alexandra K Rojas, IT TECHNICAL ARCHITECT-C~ Providers Date of Discharge: 12/03/24 Discharging Provider: [...] stated that last week she drove to [facility] with her sister and parked in the parking lot with the intention of coming in to be admitted to [address] [place] [address], patient decided notto at that time. Per report from [facility], patient was suicidal with a plan to [...] medications. Wellbutrin was discontinued and Pristiq was started.She tolerated the medication without any problems and [...] was doing better. She denied any depression orsuicidality. She was comfortable with discharge plan home [...] Instructions: Important Contact Information You can call [facility] at [phone] any timeday or night if you have emergent questions or question regarding discharge instructions. If at anytime you are feeling an increase inyour psychiatric symptoms, call your physician or behavioral healthcare provider. If any time you have thoughts of harming yourself or others contact one of the following: Call 88 (available 25/04) Crisis Text Line (available 25/04) text 4HOPE to [phone] [facility] Hope Line (available 8 a.m. Midnight) call [phone] ([phone]) Instructions: Depression in adults - Discharge instructions, [facility] Behavioral Health SUE Instructions, Know your Meds Prescriptions: New nicotine [...] hr 300 mg PO DAILY Follow Up: [facility] [Outside] - 01/01/25 10:30 am () Bowser,Michelle K, IT TECHNICAL ARCHITECT-C [Primary Care Provider] - (manager asset management left voicemail with office. They did not [...] Miah Abreu MD 12/03/24 1049 Signed By: 12/03/24 1525 [facility]03-02-2025 Progress note Author Olvin tavares [facility] SystemNote Date/TimeMarch 2024 1:[place] [address] Psychiatry Progress Note Signed Patient: Debra Scott MR#: [id number] : 1975 Acct:[id number] Age/Sex: 49 / F Adm Date: 5 Loc: Room: [address] [place] [address] Type : ADM IN Attending Dr: Olvin [...] participation Documented By: Olvin Rollins MD 5 0345 Signed By: <Electronically signed by Olvin Rollins MD> 12/02/[address] [place] [address] Work Phone: 1(991) 952-701503-02-2025 [place] [address] Psychiatry Progress Note Signed Patient: Debra Scott MR#: [id number] : 1975 Acct:[id number] Age/Sex: 49 / F Adm Date: 5 Loc: 1S Room: [address] [place] [address] Type : ADM IN Attending Dr: Olvin [...] Rollins MD 5 0715 Signed By: 12/02/[address] [place], [place] 3120403-01-2025 History and physical note Author Olvin tavares [facility] System[facility] Date/TimeMarch 2024 2:00[place] [address] Psychiatry H&P Signed Patient: Debra Scott MR#: [id number] : 1975 Acct:[id number] Age/Sex: 49 / F Adm Date: 5 Loc: Room: [address] [place] [address] Type: ADM IN Attending Dr: Olvin Rollins MD Copies to: MD Michelle Ibanez IT TECHNICAL ARCHITECT-C~ Date of Service: 12/01/2024 HPI History of [...] stated that last week she drove to [employer] with her sister and parked in the parking lot with the intention of coming in to be admitted to [address] [place] [address], patient decided notto at that time. Per report from [facility], patient was suicidal with a plan to [...] homicidality, no suicidality. Insight: fair Judgment: fair [facility] Medical History (Updated 12/01/24 @ 13:59 by [...] participation Documented By: Olvin Rollins MD 5 0756 Signed By: <Electronically signed by Olvin Rollins MD> 12/01/[address] [place] [address] Work Phone: 1(194) 608-240803-01-2025 [place] [address] Psychiatry H&P Signed Patient: Debra Scott MR#: [id number] : 1975 Acct:[id number] Age/Sex: 49 / F Adm Date: 5 Loc: Room: [address] [place] [address] Type: ADM IN Attending Dr: Olvin Rollins [...] stated that last week she drove to [facility] with her sister and parked in the parking lot with the intention of coming in to be admitted to [address] [place] [address], patient decided notto at that time. Per report from [facility], patient was suicidal with a plan to [...] homicidality, no suicidality. Insight: fair Judgment: fair [facility] Medical History (Updated 12/01/24 @ 13:59 by [...] participation Documented By: Olvin Rollins MD 5 1575 Signed By: 12/01/[address] [place], [place] 6834102-28-2025 Evaluation note* Diagnosis Onset Date Resolution Status Admit Date Cocaine abuse acuteFebruary 2024 5:19pmMood disorderacuteFebruary 2024 5:19pm Suicidal ideationacuteFebruary 2024 5:19pm [facility] Work Phone: 1(772) 471-167610-30-2024 Miscellaneous Notes* Telephone Encounter - Tessie John [...] back to schedule appointment [facility]Wilson [facility]10-30-2024 Telephone encounter Note* Telephone Encounter - Tessie John CMA - 08/01/2024 11:51 AM EDT Referral received from PCP for HCV Left message with patient to call back to schedule appointment 07/26/2024 HCV Viral Load 486,000 Abnormal [facility] [id number] Telephone encounter Note* Telephone Encounter - Tessie John CMA - 08/01/2024 11:51 AM EDT Second attempt to contact patient to schedule office visit for Hepatitis C [facility]10-30-2024 Telephone encounter Note* Telephone Encounter - Tessie John CMA - 08/01/2024 11:51 AM EDT Left message for patient to call back to schedule appointment [facility] [id number] Telephone encounter Note* Telephone Encounter - CHAVA Saucedo - 07/19/2024 11:17 AM EDT Call placed to Lili Woo Md who is listed as patient's PCP. Patient was recently released from [facility] due to depression and was a no call no show for her appointment this morning at 10 am. [facility] [id number] Miscellaneous Notes* Telephone Encounter - CHAVA Saucedo - 07/19/2024 11:17 AM EDT Call placed to Lili Woo Md who is listed as patient's PCP. Patient was recently released from [facility] due to depression and was a no call no show for her appointment this morning at 10 am. documented in this encounterSac-Osage [id number] Discharge summary Author Miah Abreu [facility] July 17, 2024 2:07pmNote Date/TimeOct2023 11:09[place] [address] Discharge Summary Signed Patient: Debra Scott MR#: [id number] : 1975 Acct:[id number] Age/Sex: 49 / F Adm Date: 4 Loc: Room: [address] [place] [address]: Olvin Rollins MD Copies to: MD Miah Ibanez MD Alexandra K Rojas, IT TECHNICAL ARCHITECT-C~ Providers Date of Discharge: 07/17/24 Discharging Provider: Miah Abreu Primary Care Provider: 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 Consults: 07/15/24 01:27 Consult to Case Management Routine Comment: Reason for Consult: Chicken Sexer-General 07/15/24 07:56 Consult to Adult Hospitalist Routine [...] presented as depressed. Patient became tearfulwhen explaining whyshe was here. Patient reports anxiety that makes her nauseous as well as depression. Patient wants a reset and to get herself together because she feels like she is not doing well. Patient states July coral hard month because she lost a lot of family members over the years around [facility]. Patient reports her one aunt is in [...] Instructions: Important Contact Information You can call [facility] at [phone] any timeday or night if you have emergent questions or question regarding discharge instructions. If at anytime you are feeling an increase inyour psychiatric symptoms, call your physician or behavioral healthcare provider. If any time you have thoughts of harming yourself or others contact one of the following: Call (available 25/04) Crisis Text Line (available 25/04) text 4HOPE to [phone] [facility] Hope Line (available 8 a.m. Midnight) call [phone] ([phone]) Regular Diet No Activity Restrictions Instructions: Depression, Adult (DC), [facility] Behavioral Health DC Instructions, Know your Meds [...] 07:30 Documented By: Miah Abreu MD 07/17/24 1109 Signed By: <Electronically signed by Miah Abreu MD> 07/17/24 1407 [facility] Work Phone: 1(558) 347-281410-14-2024 Progress note Author Miah Abreu [facility] July 16, 2024 1:51pmNote Date/TimeOct2023 12:16[place] [address] Psychiatry Progress Note Signed Patient: Debra Scott MR#: [id number] : 1975 Acct:[id number] Age/Sex: 49 / F Adm Date: 4 Loc: Room: [address] [place] [address] Type : ADM IN Attending Dr: Olvin Rollins MD Copies to: ~ Date of Service: 07/16/2024 Subjective Subjective Narrative: Ms. Scott is a 49 year old female on day 2 of hospitalization for depression, anxiety, and SI. Today, pt presented as sleepy and nauseous. Patient reports that Doxepin made her sleep really welland helped her nausea. Patient reports she feels 80% better than yesterday. Sleeping and eating; not eating full meals but eating more than she was prior toadmission Attending group Denies hallucinations Denies SI/HI tolerating current meds MSE Appearance: grossly normal. Fair grooming and hygiene, calm, cooperative, engaged in the interview.Good eye contact. Normal psychomotor activity. Mental Status: [...] history and performedthe jaimes elements of the physical examination. I formulated the plan of care and confirmed this withthe medical student as notedbelow. Exam Physical Exam [...] <Electronically signed by Miah Abreu MD> 07/16/24 1356 [facility] Work Phone: 1(194) 117-141910-14-2024 Consult note Author Gelacio Callahan [facility] July 15, 2024 11:17pmNote Date/TimeOct2023 5:00[place] [address] Hospitalist Consult Note Signed Patient: Debra Scott MR#: [id number] : 1975 Acct:[id number] Age/Sex: 49 / F Adm Date: 4 Loc: Room: [address] [place] [address] Type: ADM IN Attending Dr: Olvin Rollins MD Copies to: MD Michelle Ibanez, IT TECHNICAL ARCHITECT-C Adele Hunter, TANNER Callahan, DO~ HPI DATE OF CONSULTATION: 07/15/24 REQUESTING PROVIDER: Olvin Rollins Consult Narrative Reason for Consult: abdominal pain, nausea HPI: 49-year-old female past medical history significant for hyperlipidemia, CVA, IBS, GERD, seizure, rheumatoid arthritis, hepatitis C, hypertension, hypothyroid, depression. Presented to the emergency department at outside hospital yesterday with mental health complaints. [facility] further management. Hospitalist team is now consultedfor report of abdominal pain and nausea. Patient seen and examined. Prior to seeing the patient this morning as she was reporting indigestion to the patient's I did go ahead and order pantoprazole. She had only 8 bites of breakfast but was able to eat 90% of her lunch today. She advised nursing prior to my seeing her that the pantoprazolehad made a difference and she was improved. Symptoms are still present and more in the epigastric area, she has no sternal tenderness or difficulty swallowing/sore throat. She does not use NSAIDs andavoids these with her liver history, deniesalcohol. Denies chest pain or palpitations. No cough, dyspnea, or pain with inspiration. Denies bowel changes?no melena or black stool, no constipation or diarrhea. No dysuria or retention. No headache or dizziness. No fevers or chills. Review of Systems Review of Systems All other systems reviewed & are negative unless noted below or in HPI [facility] Medical History (Updated 07/15/24 @ 17:12 by [...] Appearance Clear, Urine pH 7.0, Ur Specific Marlow 1.007, Urine Protein Negative, Urine Glucose (UA) [...] % (Auto) 60.3, Lymph % (Auto) 27.7, [place] % (Auto) 8.9, Eos % (Auto) 2.4, Baso % (Auto) 0.7, Nucleat RBC Rel Count 0.1, Neut # (Auto) 3.7,Lymph # (Auto) 1.7, [place] # (Auto) 0.5, Eos # (Auto) 0.1, [...] 30-day course of therapy, if recurrence after thisshe should follow-up with primary care for further [...] <Electronically signed by Gelacio Callahan DO> 07/15/24 [facility]7 [facility] Work Phone: 1(193) 427-275810-13-2024 History and physical note Author Olvin tavares [facility] July 15, 2024 5:43pmNote Date/TimeOct2023 12:15pm[place] [address] Psychiatry H&P Signed Patient: Debra Scott MR#: [id number] : 1975 Acct:[id number] Age/Sex: 49 / F Adm Date: 4 Loc: Room: [address] [place] [address] Type: ADM IN Attending Dr: Olvin Rollins [...] presented as depressed. Patient became tearfulwhen explaining whyshe was here. Patient reports anxiety that makes her nauseous as well as depression. Patient wants a reset and to get herself together because she feels like she is not doing well. Patient states July coral hard month because she lost a lot of family members over the years around [facility]. Patient reports her one aunt is in [...] and hygiene, calm, cooperative, engaged in the interview.Good eye contact. Normal psychomotor activity. Mental Status: mental status grossly normal Mood: tearful Affect: mood-congruent affect Speech and Movement: speech and movement normal. Regular rate, rhythm, volume, and tone. Non pressured. Attitude: cooperative Thought Process: normal; linear, logical, and goal-oriented Thought Content: Denies paranoid or delusional thoughts. Denied hallucinations, no homicidality andintermittent suicidality. Does not appear to be responding to internal stimuli. Insight: limited , emerging Judgment: limited [facility] Medical History (Updated 07/15/24 @ 17:12 by [...] Appearance Clear Urine pH 7.0 Ur Specific Marlow 1.007 Urine Protein Negative Urine Glucose (UA) [...] discharge. Documented By: Olvin Rollins MD 4 Signed By: <Electronically signed by Olvin Rollins MD> 07/15/24 2701 [facility] Work Phone: 1(437) 831-282604-19-2024 Discharge summary Author Olvin tavares [facility] January 20, 2024 11:16amNote Date/TimeApril 2023 11:16[place] [id number] Discharge Summary Signed Patient: Debra Scott MR#: [id number] : 1975 Acct:[id number] Age/Sex: 48 / F Adm Date: 4 Loc: Room: [address] [place] [address]: Olvin Rollins MD Copies to: MD Michelle Ibanez, IT TECHNICAL ARCHITECT-C~ Providers Date of Discharge: 01/20/24 Discharging Provider: Olvin Rollins Primary Care Provider: 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 Consults: 01/18/24 04:37 Consult to Case Management Routine Comment: CM Reason for Consult: Chicken Sexer-General Discharge Diagnosis (1) Cocaine abuse: (2) Generalized [...] stopping taking Wellbutrin after her prescriber at [facility] said it can worsen her anxiety. I [...] episodes. Pertinent stressors include recently moved to [place] and has relapsed on cocaine.States she feels [...] plan would be to cut herself and bleedout. She reports several psychiatric hospitalization and previous [...] unit milieu. She has been working with clinical case manager on her aftercare she agreed to continuethe current medications regimen. She understands risks, benefits, and indications of current medication regimen. She has not history of recent suicide attempts, presented as future oriented, participated in groupactivities, articulated needs appropriately, and displayedno self-harm behaviors. [...] Instructions: Important Contact Information You can call [facility] at [phone] any timeday or night if you have emergent questions or question regarding discharge instructions. If at anytime you are feeling an increase inyour psychiatric symptoms, call your physician or behavioral healthcare provider. If any time you have thoughts of harming yourself or others contact one of the following: Call (available 25/04) Crisis Text Line (available 25/04) text 4HOPE to [phone] [facility] Hope Line (available 8 a.m. Midnight) call [phone] ([phone]) Prescriptions: No Action alprazolam 1 mg tablet [...] [Other] (Counseling with [facility]. ) 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, IT TECHNICAL ARCHITECT-C [Primary Care Provider] - (Contact your PCP with medical needs. ) Exam Physical Exam Vital Signs: Temp Pulse Resp BP Pulse Ox O2 Del Method 97.6 F 70 18 104/69 97 Room Air 01/20/24 07:30 01/20/24 07:30 01/20/24 07:30 01/20/24 07:30 01/20/24 07:30 01/20/24 07:30 Documented By: Olvin Rollins MD 4 1115 Signed By: <Electronically signed by Olvin Rollins MD> 01/20/24 1116 [facility] Work Phone: 1(988) 832-282804-19-2024 Hospital Discharge instructions Additional Instructions Important Contact Information You can call [facility] at [phone] any time day or night if you have emergent questions or question regarding discharge instructions. If at any time you are feeling an increase in your psychiatric symptoms, call your physician or behavioral healthcare provider. If any time you have thoughts of harming yourself or others contact one of the following: Call (available 25/04) Crisis Text Line (available 25/04) text 4HOPE to [phone] [facility] Hope Line (available 8 a.m. Midnight) call [phone] ([phone]) [facility] Work Phone: 1(525) 792-133904-18-2024 Progress note Author Olvin tavares [facility] January 19, 2024 7:59amNote Date/TimeApril 2023 7:52[place] [address] Psychiatry Progress Note Signed Patient: Debra Scott MR#: [id number] : 1975 Acct:[id number] Age/Sex: 48 / F Adm Date: 4 Loc: Room: [address] [place] [address] Type : ADM IN Attending Dr: Olvin Rollins MD Copies to: ~ Date of Service: 01/19/2024 Subjective Subjective Narrative: Ms. Scott said she wants to give the 150 mg PO Q daily of Wellbutrin more time. She does not preferany med adjustments. She wants to switch Xanax to Klonopin which is a safer choice. She is planningto talk to her outpatient doctor about this. [...] heavy machinery while taking psychiatric meds. Patient shouldreach out to medical provider ifany of side effects occur. Patient voiced understanding of benefitsand agreement with the treatment plan. Targeted symptoms [...] to get in treatment, response to treatment, adherenceto treatment recommendations, and using skills. The patient's verbal consent was provided. Documented By: Olvin Rollins MD 4 0751 Signed By: <Electronically signed by Olvin Rollins MD> 01/19/24 0759 [facility] Work Phone: 1(316) 797-591704-17-2024 History and physical note Author Olvin tavares [facility] January 18, 2024 10:05amNote Date/TimeApril 2023 10:05[place] [address] Psychiatry H&P Signed Patient: Debra Scott MR#: [id number] : 1975 Acct:[id number] Age/Sex: 48 / F Adm Date: 4 Loc: 1S Room: [address] [place] [address] Type: ADM IN Attending Dr: Olvin Rollins [...] stopping taking Wellbutrin after her prescriber at [facility] said it can worsen her anxiety. I [...] episodes. Pertinent stressors include recently moved to [place] and has relapsed on cocaine.States she feels [...] plan would be to cut herself and bleedout. She reports several psychiatric hospitalization and previous [...] dizziness/lightheadedness. Denies TBI, seizure, memory loss. Denies numbness/tinglingin extremities HEENT: Denies vision/hearing changes. Pulmonary: Denies [...] strong, equal bilaterally. CNXII: Tongue protrusion midline [facility] Medical History (Updated 10/21/23 @ [...] heavy machinery while taking psychiatric meds. Patient shouldreach out to medical provider ifany of side effects occur. Patient voiced understanding of benefitsand agreement with the treatment plan. Targeted symptoms [...] to get in treatment, response to treatment, adherenceto treatment recommendations, and using skills. The patient's verbal consent was provided. Documented By: Olvin Rollins MD 4 1000 Signed By: <Electronically signed by Olvin Rollins MD> 01/18/24 1005 [facility] Work Phone: 1(211) 585-316301-11-2024 Discharge summary Author Miah Abreu [facility] October 13, 2023 11:51amNote Date/TimeJanuary 2023 11:49[place] [address] Discharge Summary Signed Patient: Debra Scott MR#: [id number] : 1975 Acct:[id number] Age/Sex: 48 / F Adm Date: 4 Loc: Room: [address] [place] [address]: Miah Abreu MD Copies to: [...] that she was keeping up with her medicat ions. She reported that she feels like they were not helping fully. She does report that she has been experiencing some hallucinations as well. She stated that she would like some medication adjustedso she can start feeling better. Past psych [...] groups and socialize with peers appropriately. She didnot exhibit anybehavior concerning for suicidality during her hospital course. She had gradualimprovement of her symptoms during hospitalization. On the day of discharge, she reported that she is feeling better. She denied any depression or suicidal thoughts. She was comfortable with discharge planhome and following up with outpatient services. She [...] Instructions: Important Contact Information You can call [facility] at [phone] any timeday or night if you have emergent questions or question regarding discharge instructions. If at anytime you are feeling an increase inyour psychiatric symptoms, call your physician or behavioral healthcare provider. If any time you have thoughts of harming yourself or others contact one of the following: Call (available 25/04) Crisis Text Line (available 25/04) text 4HOPE to [phone] [facility] Hope Line (available 8 a.m. Midnight) call [phone] ([phone]) Regular Diet No Activity Restrictions Instructions: Depression, Adult (DC), [facility] Behavioral Health DC Instructions Prescriptions: New ziprasidone [...] ONCE DAILY IN THE MORNING Follow Up: [facility] [Other] (facility to manage all care) Documented By: Miah Abreu MD 10/13/23 1147 Signed By: <Electronically signed by Miah Abreu MD> 10/13/23 1151 [facility] Work Phone: 1(361) 449-522601-11-2024 Hospital Discharge instructions Additional Instructions Important Contact Information You can call [facility] at [phone] any time day or night if you have emergent questions or question regarding discharge instructions. If at any time you are feeling an increase in your psychiatric symptoms, call your physician or behavioral healthcare provider. If any time you have thoughts of harming yourself or others contact one of the following: Call (available 25/04) Crisis Text Line (available 25/04) text 4HOPE to [phone] [facility] Hallie Line (available 8 a.m. Midnight) call [phone] ([phone]) Regular Diet No Activity [facility] Work Phone: 1(370) 394-353901-10-2024 Progress note Author Miah Abreu [facility] October 12, 2023 11:10amNote Date/TimeJan2023 11:09[place] [address] Psychiatry Progress Note Signed Patient: Debra Scott MR#: [id number] : 1975 Acct:[id number] Age/Sex: 48 / F Adm Date: 4 Loc: Room: [address] [place] [address] Type : ADM IN Attending Dr: Miah [...] signed by Miah Abreu MD> 10/12/23 1110 [facility] Work Phone: 1(495) 811-157401-09-2024 Progress note Author Miah Abreu [facility] October 11, 2023 11:22amNote Date/TimeJanuary 2023 11:22[place] [address] Psychiatry Progress Note Signed Patient: Debra Scott MR#: [id number] : 1975 Acct:[id number] Age/Sex: 48 / F Adm Date: 4 Loc: 1S Room: [address] [place] [address] Type : ADM IN Attending Dr: Miah Abreu MD Copies to: ~ Date of Service: 10/11/2023 Subjective Subjective Narrative: Ms. Scott reported that she is feeling better. She stated that she still has some urinary retentionbut feels that it is better. She reported still having some dizziness and did have a fall in the shower. She denied any hallucinationscurrently. She reported she slept okay and appetite is been normal . She deniedany suicidal thoughts. She expressed interest in going to [facility] for rehab. Mental Status Exam: [...] signed by Miah Abreu MD> 10/11/23 1122 [facility] Work Phone: 1(736) 192-379201-08-2024 History and physical note Author Miah Abreu [facility] October 10, 2023 1:43pmNote Date/TimeJan2023 1:39[place] [address] Psychiatry H&P Signed Patient: Debra Scott MR#: [id number] : 1975 Acct:[id number] Age/Sex: 48 / F Adm Date: 4 Loc: Room: [address] [place] [address] Type: ADM IN Attending Dr: Miah Abreu [...] stated that she would like some medication adjustedso she can start feeling better. Past psych [...] homicidality, reported suicidality Insight: fair Judgment: fair [facility] Medical History (Updated 10/10/23 @ [...] Cloudy A Urine pH 5.5 Ur Specific Marlow 1.012 Urine Protein Negative Urine Glucose (UA) [...] signed by Miah Abreu MD> 10/10/23 1343 [facility] Work Phone: 1([phone]) 295-643111-24-2023 Discharge summary Author Olvin tavares [facility] August 26, 2023 7:42amNote Date/TimeNovember 2022 7:[place] [address] Discharge Summary Signed Patient: Debra Scott MR#: [id number] : 1975 Acct:[id number] Age/Sex: 48 / F Adm Date: 3 Loc: 1S Room: [address] [place] [address]: Olvin Rollins MD Copies to: [...] baby. [place]. She said [...] baby for the holidays. States her daughter hadto go pick out an urn for her baby and then starts crying. She rated her depression at 10 out of 10with 10 being the worst. She has been [...] and verbalized the intent to notify staff ifshe has such thoughts. Her affect is brighter on exam. She continues to be compliant with prescribed medications and is visible within the unit milieu. She has beenworking on aftercare plans with clinical case manager. She agreed to continue the current medications regimen. Risks, benefits, and indicationsof medications were discussed. She said she understands that she needs to come to the hospital anyti me if she is suicidal. She contracted for safety. She has not history of recent suicide attempts, presented as future oriented, participated in groupactivities, articulated needs appropriately, and displayedno self-harm behaviors. [...] Instructions: Important Contact Information You can call [facility] at [phone] any timeday or night if you have emergent questions or question regarding discharge instructions. If at anytime you are feeling an increase inyour psychiatric symptoms, call your physician or behavioral healthcare provider. If any time you have thoughts of harming yourself or others contact one of the following: Call 98-8 (available 25/04) Crisis Text Line (available 25/04) text 4HOPE to [phone] [facility] Hope Line (available 8 a.m. Midnight) call [phone] ([phone]) Prescriptions: New cephalexin 500 mg Capsule 500 [...] tablet 75 mcg PO DAILY Follow Up: [facility] [Other] (Sees Dr. Mendoza for psychiatric medications. Also sees Dr. Woo at this location for medical needs. ) [facility] [Other] (Sees Cam for counseling. ) Documented By: Olvin Rollins MD 3 [id number] Signed By: <Electronically signed by Olvin Rollins MD> 08/26/23 0742 [facility] Work Phone: 1(876) 542-831511-24-2023 Hospital Discharge instructions Additional Instructions Important Contact Information You can call [facility] at [phone] any time day or night if you have emergent questions or question regarding discharge instructions. If at any time you are feeling an increase in your psychiatric symptoms, call your physician or behavioral healthcare provider. If any time you have thoughts of harming yourself or others contact one of the following: Call 8-8 (available 25/04) Crisis Text Line (available 25/04) text 4HOPE to [phone] [facility] Hope Line (available 8 a.m. Midnight) call [phone] ([phone]) Regular Diet No Activity Restrictions Urine culture from [facility] with no growth, you do NOT have a urinary tract infection and do NOT need antibiotic at discharge. Liver enzymes mildly elevated. Hepatitis panel still pending at the time of your discharge. Please follow up with your primary care for further management, with history of untreated [facility]atitis [facility] Work Phone: 1(573) 183-759911-23-2023 Consult note Author Gelacio Callahan [facility] August 25, 2023 12:19pmNote Date/TimeNov2022 6:07pm[place] [address] Hospitalist Consult Note Signed Patient: Debra Scott MR#: [id number] : 1975 Acct:[id number] Age/Sex: 48 / F Adm Date: 3 Loc: Room: [address] [place] [address] Type: ADM IN Attending Dr: Olvin Rollins [...] Anemia. Presented to the emergency department at [facility] August 23 with mental health concerns. Plan was made for transfer tocardiologist for further management and care. Medical workup done for clearance. Review of CBC shows no leukocytosis with WBC of 5.6, anemia previously reported but hemoglobin was 12.3 with hematocrit 37.1. Chemistries reviewed normal electrolytes, creatinine 1.03. Elevated LFTs with AST 92 andALT 125, alkaline phosphatase 64. Normal protein. Urinalysis [...] with exam. She reports bilateral hand knuckle painand wrist tenderness as well as in her [...] negative unless noted below or in HPI [facility] Medical History (Updated 08/24/23 @ [...] Siri PRN Reason Stop Dose Admin Acetaminophen 500 [...] 100 Mg Capsule PO 08/23/24 21:59 HS MAGGIE Levothyroxine Sodium 75 mcg 08/24/23 07:30 08/24/23 [...] strength. Bilateral hands with tender MCP/PIP/DIP joints withouterythema, good mobility NEURO- A&Ox3, speech clear and [...] ESR, CRP Suspect UTI -Cephalexin initiated at [place] [facility], however squamous cells present may be [...] <Electronically signed by Gelacio Callahan DO> 08/25/23 [facility] Work Phone: 1(366) 361-484611-23-2023 Progress note Author Olvin tavares [facility] August 25, 2023 8:40amNote Date/TimeNov2022 8:40[place] [address] Psychiatry Progress Note Signed Patient: Debra Scott MR#: [id number] : 1975 Acct:[id number] Age/Sex: 48 / F Adm Date: 3 Loc: Room: [address] [place] [address] Type : ADM IN Attending Dr: Olvin [...] stubborn. She said her sister does not openup about her feelings. She has had previous [...] signed by Olvin Rollins MD> 08/25/23 0840 [facility] Work Phone: 1([phone]) 871-183511-22-2023 History and physical note Author Olvin tavares [facility] August 24, 2023 7:17amNote Date/TimeNov2022 7:12[place] [address] Psychiatry H&P Signed Patient: Debra Scott MR#: [id number] : 1975 Acct:[id number] Age/Sex: 48 / F Adm Date: 3 Loc: Room: [address] [place] [address] Type: ADM IN Attending Dr: Olvin Rollins [...] baby. [place] to being supportive. She said [...] baby for the holidays. States her daughter hadto go pick out an urn for her baby and then starts crying. She rated her depression at 10 out of 10with 10 being the worst. She has been [...] homicidality, reported suicidality Insight: fair Judgment: fair [facility] Medical History Anxiety Bipolar 1 [...] signed by Olvin Rollins MD> 08/24/23 0717 [facility] Work Phone: 1(234) [phone] Evaluation note* Encounter Date Diagnosis Assessment Notes Treatment Notes Treatment Clinical Notes May, Laceration without f oreign body of left wrist, initial encounter (ICD-10 - S61.512A) May,Intentional self-harm by unspecified sharp object, initial encounter (ICD-10 - X78.9XXA) May,OtherPatient's left wrist wound has completely healed and at this point I recommended that she get back to all activities as tolerated. I did recommend staying out of a pool for at least another week. Shecan follow-up on a as needed basis. [employer] Other 07-30-2023 Discharge summary Author Miah Abreu [facility] May 01, 2023 12:16pmNote Date/TimeJuly 2022 11:30[place] [id number] Discharge Summary Signed Patient: Debra Scott MR#: [id number] : 1975 Acct:[id number] Age/Sex: 47 / F Adm Date: 3 Loc: Room: 6V4811-[address]: Serafin Rollins MD Copies to: [...] admission due to worsening of depression and feelingsuicidal. Reportedly, she admitted herself to due to feeling suicidal again. ? The patient alsoreported that she feels like her meds need to be changed and adjusted again.? She had a suicidal ideation to slit her wrist.? Patient presented last week for suicide attempt at cutting her left wristopen.? She was subsequently discharged on 2022.? She reports back here today. Ms. Scott adds that she went to [facility] last night to have her wrist [...] day.? Relating to her anxiety, she notes thatit started when she was a kid, but has worsened since her 20s.? Talking with her counselor makes itbetter, nothing seems to make her anxiety worse, and she describes her anxiety as life stopping. ?The patient reports her anxiety is 8 out [...] ex- who would help her with some dressingchanges. She stated that she just did not [...] IN ONE WEEK. (ORD.04/28/2023) IF DISCHARGED FROM PRIORTO THE ONE WEEK FOLLOW UP. [address] [place] [address] PH: [phone] Dressing Type: TX TO LEFT WRIST; WARM SOAPY SOAKS WITH HIBICLENS TID FOR 15 MINUTES. ALLOW TO AIR DRY AND THEN REDRESS WITH XERFORM, TELFA, AND GAUZE. THREE TIMES A DAY. Instructions: Bipolar Disorder (DC), [facility] Behavioral Health DC Instructions Prescriptions: New doxycycline [...] Dr. Woo for any medical concerns. ) [facility] Behavioral Health [Other] (Call on Tuesday to set up appointment Cam) [facility] Counseling Hotline [Outside] Enrico Alcazar II, MD [Active Staff] - (Please call on Tuesday to set up appointment in 5-7 days.) Documented By: Miah Abreu MD 05/01/23 1130 Signed By: <Electronically signed by Miah Abreu MD> 05/01/23 1216 [facility] Work Phone: 1(389) 858-815207-29-2023 Progress note Author Miah Abreu [facility] April 30, 2023 11:22amNote Date/TimeJuly 2022 11:22[place] [id number] Psychiatry Progress Note Signed Patient: Debra Scott MR#: [id number] : 1975 Acct:[id number] Age/Sex: 47 / F Adm Date: 3 Loc: 1S Room: [address] [place] [address] Type : ADM IN Attending Dr: Serafin Rollins MD Copies to: ~ Date of Service: 04/30/2023 Subjective Subjective Narrative: Ms. Scott reported that she is feeling emotional today. She reported that she slept better overnight but is feeling a little bit tired today. She reported that she does not have any suicidal thoughtsat this time. She reported that her wrist [...] <Electronically signed by Miah Abreu MD> 04/30/23 112 [facility] Work Phone: 1(711) 540-166507-28-2023 Progress note Author Miah Abreu [facility] April 29, 2023 1:04pmNote Date/TimeJuly 2022 1:[place] [id number] Psychiatry Progress Note Signed Patient: Debra Scott MR#: [id number] : 1975 Acct:[id number] Age/Sex: 47 / F Adm Date: 3 Loc: Room: [address] [place] [address] Type : ADM IN Attending Dr: Serafin [...] signed by Miah Abreu MD> 04/29/23 1304 [facility] Work Phone: 1([phone]) 162-914707-27-2023 Progress note Author Miah Abreu [facility] April 28, 2023 12:01pmNote Date/TimeJuly 2022 12:01[place] [address] Psychiatry Progress Note Signed Patient: Debra Scott MR#: [id number] : 1975 Acct:[id number] Age/Sex: 47 / F Adm Date: 3 Loc: Room: [address] [place] [address] Type : ADM IN Attending Dr: Serafin Rollins MD Copies to: ~ Date of Service: 04/28/2023 Subjective Subjective Narrative: Ms. Scott reported that she started to feel better. She reported that her wristhas been still bothering her. She reported that her sleep has been up and down. She was seen by the orthopedic physicianthis morning who gave recommendations for her wound. [...] signed by Miah Abreu MD> 04/28/23 1201 [facility] Work Phone: 1(325) 205-571807-27-2023 Hospital Discharge instructions Additional Instructions FOLLOW UP WITH DR. ALCAZAR AT HIS OFFICE IN ONE WEEK. (ORD.04/28/2023) IF DISCHARGED FROM PRIOR TO THE ONE WEEK FOLLOW UP. [address] [place] [address] PH: [phone] Dressing Type: Treatment TO LEFT WRIST; WARM SOAPY SOAKS WITH HIBICLENS TID FOR 15 MINUTES. ALLOW TO AIR DRY AND THEN REDRESS WITH XERFORM, TELFA, AND GAUZE. THREE TIMES A DAY.[facility] Work Phone: 1(286) 692-794307-27-2023 Consult note Author Enrico Alcazar [facility] April 28, 2023 2:11amNote Date/TimeJuly 2022 1:17[address] [address] Orthopedic Consult Note Signed Patient: Debra Scott MR#: [id number] : 1975 Acct:[id number] Age/Sex: 47 / F Adm Date: 3 Loc: 1S Room: [id number] Type: ADM IN Attending Dr: Serafin Rollins MD Copies to: NON STAFF MD Enrico Ibanez MD~ History of Present Illness HPI Consult date: 04/28/2023 Requesting provider: Serafin Rollins MD History of present illness: Patient is a 47-year-old dihwv-tvbw-yjlrdrsy female who is disabled from mental health issues presented to the [place] emergency department on April 13 because she had used a elaine knife to slit her left wrist. At that time she reported suicidal ideations. The wound at that time according to the patient was washed out and sutured. [facility] at that time and discharged on April 17. Not long after discharge she presented to the [facility] emergency department because she was concerned about infection. She was given oral antibiotics and discharge. On April 23 shewas readmitted to [facility] psychiatric unit and at that time there was further concern about infection in the wrist wound. Currently the patient complains of significant pain over the wrist wound. She complains of tinglinginto the thumb, index, long, ring finger. She reports that that she has had dressings placed on it daily and has been on antibiotics. Chart review demonstrates that she is on doxycycline and a culture of the wound upon presentation has grown MRSA that is sensitive to doxycycline. [facility] Vaccinated for [facility]-19?: Unknown Medical [...] multiple sutures in place with some whitish granulationtissue around the sutures. No active drainage. There [...] radially and ulnarly aboutthe thumb, index, long, ringfinger. Sensation intact to light touch without paresthesias in the small finger. Fires her AIN, PIN, median, ulnar, radial nerves. Results Lab Results 04/26/23 06:37 04/24/23 06:14 Labs: Laboratory Results - Last 48 hrs. 04/26/23 06:37: Corrected WBC 3.8, Uncorrected WBC Count 3.8, RBC 3.49 L, Hgb 11.5 L, Hct 34.0, MCV97.5, MCH 33.1, MCHC 33.9, RDW 12.1, Plt Count 231, MPV 8.4, Neut % (Auto) 54.1, Lymph % (Auto) 33.3, [place] % (Auto) 8.2, Eos % (Auto) 3.2, Baso % (Auto) 1.2, Nucleat RBC Rel Count 0.2, Neut # (Auto) 2.1, Lymph # (Auto) 1.3, [place] # (Auto) 0.3, Eos # (Auto) 0.1, [...] from 1 S. prior to the 1 weekfollow-up that she needs to see me in the office for further evaluation. Please call with any questions or concerns. Code(s): S61.502A - Unspecified open wound of left wrist, initial encounter Documented By: Enrico Alcazar MD 04/28/2310 18 Signed By: <Electronically signed by Enrico Alcazar MD> 04/28/23 0211 [facility] Work Phone: 1(328) 359-988907-26-2023 Progress note Author Miah Abreu [facility] April 27, 2023 12:45pmNote Date/TimeJuly 2022 12:45[place] [address] Psychiatry Progress Note Signed Patient: Debra Scott MR#: [id number] : 1975 Acct:[id number] Age/Sex: 47 / F Adm Date: 3 Loc: Room: [address] [place] [address] Type : ADM IN Attending Dr: Serafin [...] <Electronically signed by Miah Abreu MD> 04/27/235 [facility] Work Phone: 1(250) 462-983407-25-2023 Progress note Author Miah Abreu [facility] April 26, 2023 12:24pmNote Date/TimeJuly 2022 12:24pm[place] [address] Psychiatry Progress Note Signed Patient: Debra Scott MR#: [id number] : 1975 Acct:[id number] Age/Sex: 47 / F Adm Date: 3 Loc: Room: [address] [place] [address] Type : ADM IN Attending Dr: Serafin [...] <Electronically signed by Miah Abreu MD> 04/26/231223 [facility] Work Phone: 1(393) 508-757807-24-2023 Progress note Author Miah Abreu [facility] April 25, 2023 1:05pmNote Date/TimeJuly 2022 1:04pm[place] [address] Psychiatry Progress Note Signed Patient: Debra Scott MR#: [id number] : 1975 Acct:[id number] Age/Sex: 47 / F Adm Date: 3 Loc: Room: [address] [place] [address] Type : ADM IN Attending Dr: Serafin Rollins MD Copies to: ~ Date of Service: 04/25/2023 Subjective Subjective Narrative: Ms. Scott reported that she is not doing well. She does have some concern abouther wrist being infected. She reported that she does not want to take Caplyta due to potential side effects. She is opento adjustments of other medications at this time. [...] By: <Electronically signed by Miah Abreu MD> 04/25/231304 [facility] Work Phone: 1(617) 372-336007-24-2023 Progress note Author Gelacio Callahan [facility] April 25, 2023 10:07amNote Date/TimeJuly 2022 10:07[place] [address] Hospitalist Progress Note Signed Patient: Debra Scott MR#: [id number] : 1975 Acct:[id number] Age/Sex: 47 / F Adm Date: 3 Loc: Room: [address] [place] [address] Type: ADM IN Attending Dr: Serafin Rollins MD Copies to: ~ Date of Service: 04/25/2023 Subjective Subjective Narrative: [facility] She complains of some ongoing pain [...] sutures in place. Neurovascularly intact. 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 No extension of [...] self-inflicted cutting wound -previously sutured 04/13 at [facility]. Wound care has been consulted. Appreciate any further recommendations. Recommend circumscribing the margins ofher erythema which at this time does not seem to beextending proximally. She is afebrile. She does report some ongoing pain for which I will add low-dose [place] as the patient has tramadol allergy (lowers seizure threshold). Furthermore she is growingStaph aureus on wound culture. Sensitivities pending. We [...] 00 Signed By: <Electronically signed by Gelacio Callahan DO> 04/25/[address] [place] [address] Work Phone: 1(329) 800-576307-23-2023 Consult note Author Abisai Madrid [facility] April 24, 2023 9:53amNote Date/TimeJuly 2022 5:14[place] [address] Hospitalist Consult Note Signed Patient: Debra Scott MR#: [id number] : 1975 Acct:[id number] Age/Sex: 47 / F Adm Date: 3 Loc: Room: [address] [place] [address] Type: ADM IN Attending Dr: Serafin Rollins MD Copies to: NON STAFF MD Abisai Ibanez MD Lynn A Stackhouse, ANP-BC~ HPI DATE OF CONSULTATION: 04/23/23 REQUESTING PROVIDER: Serafin Rollins Consult Narrative Reason for Consult: Wound present on admission HPI: This is a 47-year-old female past medical HTN, HLD, hypothyroid, hypertension, hyperlipidemia, hepatitis, rheumatoid arthritis, anxiety and depression. She presented April 22 from [facility] inpatient psychiatric unit for management of depression. Patient previously April 13 had self-inflicted a left wrist laceration that was sutured at that time in [facility] ED previously. She noticedabout 4 days ago that she was having increased pain erythema and drainage from the site. When she was at [facility] last evening for reevaluation he did give her injection of ceftriaxone IM and initiated her on Bactrim and Keflex. Patient has a stated allergy to Bactrim with vomiting, and since receiving the dose in the [facility] ER she has not felt well and has been nauseated most of the day today. I am presuming that they gave her Bactrim for MRSA coverage. We will go ahead and check a wound culture at the site and have wound consultation as well. If she has no clinical improvement inthis area we may need to consider further imaging and even potentially orthopedic consultation for evaluation of underlying anatomy potential injury. Otherwise the patient is reporting generalized malaise today. We will check some labs tomorrow to ensure that she is not becoming systemically ill due to this infection. At this time she is afebrile. She offers no other complaints, poor intake todaysecondary to this nausea. Patient seen and examined. Left wrist/hand pain reported. Denies chest pain orpalpitations. No cough, dyspnea, or pain with inspiration. No abdominal pain or indigestion, constipation or diarrhea. She endorses nausea. No dysuria or retention. No headache or dizziness. No fevers or chills. Endorses general malaise PMFSH Vaccinated for COVID-19?: Unknown Medical History (Updated 04/23/23 @ 18:01 by Adele Gorman, ANP-) Anxiety Bipolar 1 disorder, depressed, mild GERD [...] self-inflicted cutting wound -previously sutured 04/13 at [facility], pain and erythema/ drainage started about 4 [...] signed by Abisai Madrid MD> 04/24/23 0953 [facility] Work Phone: 1(850) 893-415107-23-2023 Progress note Author Olvin tavares [facility] April 24, 2023 7:14amNote Date/TimeJuly 2022 7:14[place] [address] Psychiatry Progress Note Signed Patient: Debra Scott MR#: [id number] : 1975 Acct:[id number] Age/Sex: 47 / F Adm Date: 3 Loc: Room: [address] [place] [address] Type : ADM IN Attending Dr: Serafin Rollins MD Copies to: ~ Date of Service: 04/24/2023 Subjective Subjective Narrative: Ms. Scott said she met the hospitalist IT TECHNICAL ARCHITECT and talked the treatment plan for herwound [...] signed by Olvin Rollins MD> 04/24/23 0714 [facility] Work Phone: 1(519) 472-818607-22-2023 History and physical note Author Olvin tavares [facility] April 23, 2023 9:51amNote Date/TimeJuly 2022 8:[place]am[place] 5629870 Psychiatry H&P Signed Patient: Debra Scott MR#: [id number] : 1975 Acct:[id number] Age/Sex: 47 / F Adm Date: 3 Loc: Room: [address] [place] [address] Type: ADM IN Attending Dr: Serafin Rollins [...] The patient also reported that she feels likeher meds need vincenzo changed and adjusted again. She had a suicidal ideation to slit her wrist. Patient presented last week for suicide attempt at cutting her left wrist open. She was subsequently discharged on April 17, 2023. She reports back here today. Ms. Scott adds that [facility] have her wrist lookedat for possible infection and suicidal ideation. The patient reports to me thismorning that they gave her Bactrim PO around 1 AM, disregarding her insistence that sheis allergic to Bactrim. Patient was personally seen [...] describes it as up and down throughout theday. Patient denies suicidal ideation, homicidal ideation, and [...] reports she is an allergic to Bactrim andwould like to speak to hospitalist about different [...] signed by Olvin Rollins MD> 04/23/23 0951 [facility] Work Phone: 1(539) [phone] Discharge summary Author Olvin tavares [facility] September 01, 2022 10:03amNote Date/TimeNovember 2021 10:[address] [address] Discharge Summary Signed Patient: Debra Scott MR#: [id number] : 1975 Acct:[id number] Age/Sex: 47 / F Adm Date: 2 Loc: 1S Room: 9V4021-[address]: Miah Abreu MD Copies to: [...] patient? presents as withdrawn.? [facility] and [facility] been [facility] her medications.??She states that she was partying at someones [facility] She was found laying on the sidewalk in the rain by EMS [facility] Patient admits to attempting suicide [...] the emergency department.? She is agreeable with re-starting meds. m Past psych history: Depression and [...] discharged from the hospital. She wasnot consistent withher meds. Psychotropic medications targeting depression and anxiety [...] she has such thoughts. No suicidal or self- injurious behaviors occurred during inpatient treatment. She said [...] that her discharge from the hospital does notmean that her medical care ends here. She [...] limiting the number of medications to a 15- day supply with one refill at the time [...] impulsivity, agitation, or psychotic behavior. Pt is future-oriented and understands the importance of outpatient follow-up. [...] follow-up to have somewhere to go and someoneto manage her assymptoms and stressors develop. This is the best way to keep her alive. So, we discussed a crisis plan for future suicidality: at the first sign of distress, she will call the hotline; if this is not sufficient, she will 911, then call family members or friends; ultimately, she willcome to the ER. Safety: The patient is [...] notify her psychiatrist if she becomes due tothe risk of harm to the fetus. MSE: [...] Appearance Clear, Urine pH 6.5, Ur Specific Marlow 1.006, Urine Protein Negative, Urine Glucose (UA) [...] 30 Days Qty: 30 0RF Follow Up: [facility] [Other] - 09/07/22 10:00 am ( Pschiatry: Tuesday09/07/22 @ 10:00am with AUDI Zarate Referral for therapy & IOP treatment will be made at this time Psychiatry: 09/30/22 @ 12:[address] Stubbs. ) Documented By: Olvin Rollins MD 2 1000 Signed By: <Electronically signed by Olvin Rollins MD> 09/01/22 1003 [facility] Work Phone: 1(484) 912-997111-29-2022 Progress note Author Olvin tavares [facility] August 31, 2022 9:32amNote Date/TimeNov2021 9:32am[place] [address] Psychiatry Progress Note Signed Patient: Debra Scott MR#: [id number] : 1975 Acct:[id number] Age/Sex: 47 / F Adm Date: 2 Loc: Room: [address] [place] [address] Type : ADM IN Attending Dr: Miah Abreu MD Copies to: ~ Date of Service: 08/31/2022 Subjective Subjective Narrative: Patient report she is feeling better. Depression and anxiety are stabilizing gradually on the current medication regimen. Anxiety is moderate in intensity with attempted utilization of coping skills.She denies SI/HI and verbalized theintent to notify [...] signed by Olvin Rollins MD> 08/31/22 0932 [facility] Work Phone: 1(194) 203-358111-28-2022 History and physical note Author Olvin tavares [facility] August 30, 2022 10:00amNote Date/TimeNovember 2021 9:56[place] [id number] Psychiatry H&P Signed Patient: Debra Scott MR#: [id number] : 1975 Acct:[id number] Age/Sex: 47 / F Adm Date: 2 Loc: 1S Room: 6J2175-3 Type: ADM IN Attending Dr: Miah Abreu [...] the rain by EMS and transported [facility] Patient admits to attempting suicide x2 at hospital. Patient states she has been having suicidal thoughts for weeks, admits to smoking crack around 6am yesterday.?Pertinent stressors include being homeless because she was living with her sister and they are not getting along s o she cannot go back to her sisters home. She rated her depression at 8 out of 10 with 10 being the worst. She did reportsome suicidal ideation in the emergency department.? She is agreeable with re-starting meds. m Past psych history: Depression and [...] Acute (3) Bipolar disorder: Plan: Admit to for management of depression [...] <Electronically signed by Olvin Rollins MD> 08/30/[address] [place] [address] Work Phone: 1(922) 942-833609-10-2022 Progress note Author Miah Abreu [facility] June 12, 2022 11:20amNote Date/TimeSept2021 11:20[place] [address] Psychiatry Progress Note Signed Patient: Debra Scott MR#: [id number] : 1975 Acct:[id number] Age/Sex: 47 / F Adm Date: 2 Loc: Room: [address] [place] [address] Type : ADM IN Attending Dr: Serafin [...] Xanax use and persistent urine drug screens positivefor cocaine [id number] Continue home medications. Continue to monitor mental status Encourage group participation and medication compliance Risk benefits alternatives explained Documented By: Miah Abreu MD 06/12/221118 Signed By: <Electronically signed by Miah Abreu MD> 06/12/221119 [facility] Work Phone: 1([phone]) 127-755309-09-2022 Progress note Author Miah Abreu [facility] June 11, 2022 1:36pmNote Date/TimeSept2021 1:33[place] [address] Psychiatry Progress Note Signed Patient: Debra Scott MR#: [id number] : 1975 Acct:[id number] Age/Sex: 47 / F Adm Date: 2 Loc: Room: [address] [place] [address] Type : ADM IN Attending Dr: Serafin Rollins MD Copies to: ~ Date of Service: 06/11/2022 Subjective Subjective Narrative: Ms. Scott states that she feels somewhat agitated this morning. She notes that this could be due todiscontinuing the Cymbalta which she has taken for many years. She is tolerating the Trintellix andunderstands that it will take a few weeks to take full affect. She notes slightly better sleep lastnight and only woke up twice throughout the [...] history and performedthe jaimes elements of the physical examination. I formulated the plan of care and confirmed this withthe medical student as notedbelow. Patient reported that [...] Xanax use and persistent urine drug screens positivefor cocaine [id number] Continue home medications. Continue to monitor mental status Encourage group participation and medication compliance Risk benefits alternatives explained Documented By: Miah Abreu MD 06/11/22 1215 Signed By: <Electronically signed by Miah Abreu MD> 06/11/22 1336 [facility] Work Phone: 1(458) 153-498909-08-2022 Progress note Author Miah Abreu [facility] June 10, 2022 1:53pmNote Date/TimeSept2021 1:53pm[place] [address] Psychiatry Progress Note Signed Patient: Debra Scott MR#: [id number] : 1975 Acct:[id number] Age/Sex: 47 / F Adm Date: 2 Loc: Room: [address] [place] [address] Type : ADM IN Attending Dr: Serafin Rollins MD Copies to: ~ Date of Service: 06/10/2022 Subjective Subjective Narrative: Ms. Scott states that she feels okay and is tired this morning. She reports poor sleep throughoutthe night and waking up 3-4 times. She [...] history and performedthe jaimes elements of the physical examination. I formulated the plan of care and confirmed this withthe medical student as notedbelbernadine. Patient reported that [...] Xanax use and persistent urine drug screens positivefor cocaine [id number] Continue home medications. Continue to monitor mental status Encourage group participation and medication compliance Risk benefits alternatives explained Documented By: Miah Abreu MD 06/10/22 1111 Signed By: <Electronically signed by Miah Abreu MD> 06/10/22 1353 [facility] Work Phone: 1(191) 167-345109-07-2022 Progress note Author Miah Abreu [facility] June 09, 2022 12:58pmNote Date/TimeSept2021 12:58pm[place] [address] Psychiatry Progress Note Signed Patient: Debra Scott MR#: [id number] : 1975 Acct:[id number] Age/Sex: 47 / F Adm Date: 2 Loc: 1S Room: [address] [place] [address] Type : ADM IN Attending Dr: Serafin Rollnis MD Copies to: ~ Date of Service: 06/09/2022 Subjective Subjective Narrative: Ms. Scott states that she feels better today but is still in a slump . She notes that her appetiteis good but her sleep has still been [...] history and performedthe jaimes elements of the physical examination. I formulated the plan of care and confirmed this withthe medical student as notedbelow. Patient reported that [...] Xanax use and persistent urine drug screens positivefor cocaine [id number] Continue home medications. Continue to monitor mental status Encourage group participation and medication compliance Risk benefits alternatives explained Documented By: Miah Abreu MD 06/09/22 1105 Signed By: <Electronically signed by Miah Abreu MD> 06/09/22 1255 [facility] Work Phone: 1(841) 161-428409-06-2022 Progress note Author Miah Abreu [facility] June 08, 2022 12:01pmNote Date/TimeSept2021 11:59[place] [address] Psychiatry Progress Note Signed Patient: Debra Scott MR#: [id number] : 1975 Acct:[id number] Age/Sex: 47 / F Adm Date: 2 Loc: Room: 7X0760-0 Type : ADM IN Attending Dr: Serafin Rollins MD Copies to: ~ Date of Service: 06/08/2022 Subjective Subjective Narrative: Ms. Scott states that she feels weird this morning. She reports that she did not start Viibryd 10mg due to concerns of side effects including [...] history and performedthe jaimes elements of the physical examination. I formulated the plan of care and confirmed this withthe medical student as notedbelbernadine. Patient reported that she is willing to [...] Xanax use and persistent urine drug screens positivefor cocaine [id number] Continue home medications. Continue to monitor mental status Encourage group participation and medication compliance Risk benefits alternatives explained Documented By: Miah Abreu MD 06/08/22 0940 Signed By: <Electronically signed by Miah Abreu MD> 06/08/22 1201 [facility] Work Phone: 1(676) 649-599609-05-2022 History and physical note Author Miah Abreu [facility] June 07, 2022 12:39pmNote Date/TimeSept2021 12:38pm[place] [address] Psychiatry H&P Signed Patient: Debra Scott MR#: [id number] : 1975 Acct:[id number] Age/Sex: 47 / F Adm Date: 2 Loc: Room: [address] [place] [address] Type: ADM IN Attending Dr: Serafin Rollins [...] called the hotline and was taken to [facility] after which she was transferred to . For the last few months, she has been feeling increasingly depressed and anxious. She reports a recent incident while babysitting her granddaughter in [place] during which she hid under the table and felt as though the world was ending . She endorses multiple similar episodes of panic recently during which she feels her heart racing, sweaty, and impending doom. She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 Galvan RNOther ProviderActiveGuilherme Carbone MDOther ProviderActiveMicpatti Molina MDOther ProviderActiveComaritza Manzo MDOther ProviderActiveMonroe Zepeda , DOOther ProviderActiveRobramos Alcazar II, MDOther ProviderActiveGwyn Wyatt , DOOther ProviderActive Team Status: Inactive Member Role Status Dates NON STAFF Primary Care Provider Active Lia Ibanez Provider, Attending ProviderActiveMichelle Ko RNOther ProviderActiveJennifer Bonner RNOther ProviderActiveMeme Delcaruz RNOther ProviderActiveCarmella Lazo , GROVEROther ProviderActiveArianna Centeno RNOther ProviderActiveVaishali Rivera RNOther ProviderActiveRagela Chand MDOther ProviderActiveLisa M Dials , APRNOther ProviderActiveRonobiberhane Nice , DOOther ProviderActiveMusgianna Ramsye MDOther ProviderActive Santi Rudd , DOOther ProviderActiveZeus Bright MDOther Provider Diego Simms MDOther ProviderActiveLyjose Hunter , APRNOther ProviderActiveYessy Bustillos MDOther ProviderActiveIrwin Rivero MDOther ProviderActiveJose Loaiza MDOther ProviderActiveDemario Spicer MDOther ProviderActiveMichael Sindy , DOOther ProviderActiveFirmuna Bustos MDOther ProviderActiveEargino Solis MDOther ProviderActiveAmy Sonja Breaux , IT TECHNICAL ARCHITECT-COther ProviderActiveAbisai Madrid MDOther ProviderActiveWolf Irwin MD Other ProviderActiveHammad Zayas MDOther ProviderActiveAnoOsuna MDOther ProviderActiveMarfranca Greenwood , DOOther ProviderActiveNeal R Julia , DOOther ProviderActiveAnthony M Miniaci , DOOther ProviderActiveLinda Obika , APRNOther ProviderActiveEddie Jensen , DOOther ProviderActiveObaydah Kaylin Esposito MDOther ProviderActivePaula Rick Chan , APRNOther ProviderActiveAlicia Ulises Delgado , COAL WHEELER Other ProviderActiveAlawillow Mancia MDOther ProviderActiveDacass Noble MDOther ProviderActiveLexx Fox , DOOther ProviderActivePatricia David Malagon , APRNOther ProviderActiveYapreeti Lee , DOOther ProviderActiveSajazz Galvan , RNOther ProviderActiveTeam MemberRelationshipSpecialtyStart DateEnd Date Lili Woo MD [address] [place] [address] [facility] - [facility] Pr[facility]y15/12/23Team MemberRelationshipSpecialtyStart Date End Date Lili Woo MD [address] [place] [address] [facility] - [facility] Gzjmzhwc01/12/23Team MemberRelationshipSpecialtyStart Date End Date Lili Woo MD [address] [place] [address] PCP - GeneralFamily Xvkrgljw94/12/23 Team Status: Inactive Member Role Status Dates 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 NP-C Primary Care Provider Active Start: January 18, 2024 End: January 19Lia Hernandes Provider, Attending ProviderActiveStart: January 18, 2024 End: January 20, 2024 Team Status: Active Member Role Status Dates NINA Zabala Primary Care Provider Active Start: January 18, 2024 Lia Ibanez Provider, Attending Provider, Other Provider ActiveStart: January 18, 2024 Team MemberRelationshipSpecialtyStart DateEnd Date Lili Woo MD [address] [place] [address] PCP - GeneralFamily Lanruvjh62/12/23Team MemberRelationshipSpecialtyStart Date End Date 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 APRN-[facility] [address] [place] [phone] PCP - GeneralNurse Practitioner12/01/23Team MemberRelationshipSpecialtyStart Date End Date 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 [facility] [address] [place] [phone] PCP - GeneralNurse Practitioner12/01/23Team MemberRelationshipSpecialtyStart Date End Date 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 [facility] [address] [place] [phone] PCP - GeneralNurse Practitioner12/01/23Team MemberRelationshipSpecialtyStart Date End Date 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 [facility] [address] [place], [place] [address] PCP - GeneralNurse Practitioner12/01/23Team MemberRelationshipSpecialtyStart Date End Date 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 [facility] [address] [place] [address], [place] [phone] PCP - GeneralNurse Practitioner12/01/23Team MemberRelationshipSpecialtyStart Date End Date 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 [facility] [address] [place] [address], [place] [address] PCP - GeneralNurse Practitioner12/01/23Team MemberRelationshipSpecialtyStart Date End Date 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 [facility] [address] [place] [address], [place] [phone] PCP - GeneralNurse Practitioner12/01/23 Team Status: Active Member Role Status Dates NON STAFF Primary Care Provider Active Start: March 20, 2025 Shashi Ibanez ProviderActiveStart: March 20, 2025 Team Status: Active Member Role Status Dates NINA Zabala Primary Care Provider Active Start: March 20, 2025 Lia Ibanez ProviderActiveStart: March 20, 2025 Shashi Ibanez ProviderActiveStart: March 20, 2025 Bassam Ibanez ProviderActiveStart: March 20, 2025 Team Status: Active Member Role Status Dates STACEY ZabalaC Primary Care Provider Active Start: June 12, 2025 Lia Ibanez ProviderActiveStart: June 12, 2025 Olvin Rollins MDAttending ProviderActiveStart: June 12, 2025 Bassam Ibanez ProviderActiveStart: June 12, 2025 Team MemberRelationshipSpecialtyStart DateEnd Date 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ELSIN-[facility] [address] [place] [phone] [facility] - [facility] [place] Practitioner12/01/23Team MemberRelationshipSpecialtyStart Date End Date Lili Woo MD [address] [place] [address] PCP - GeneralFamily Mwdusmsb30/12/23Team MemberRelationshipSpecialtyStart Date End Date Lili Woo MD [address] [place] [address] PCP - GeneralFamily Yeyaazpz78/12/23 REASON FOR VISIT (unrecogniz ed section and content) ReasonCommentsCounseling sessionReasonOnset DateCommentsNo show after recent fhcbehannjglsmi64/17/2024Call placed to Lili Woo Md who is listed as patient's PCP. Patient was recently released from [facility] due to depression and was a no call no show for her appointment this morning at 10 am. ReasonCommentsFollow-upDischarge follow upReasonOnset DateCommentsMed Refill 12/19/2024ReasonCommentsFollow-upHypothyroidismReasonOnset DateCommentsVomiting 04/17/2025ReasonOnset DateCommentsMed Mifetadrve02/10/2025ReasonCommentsADHDPTSD (Post-Traumatic Stress Disorder) Goals (unrecognized section and content) Goals may be documented in a n alternate section FOR RECORDS PERTAINING TO PATIENTS WHO ARE [...] BE BASED ON THE PRIMARY CLINICAL RECORDS. [facility]. provides no warranty or guarantee of the accuracy or completeness of information in this document.
--- OUTSIDE RECORDS SUMMARY | 2025-09-01 11:46 | XMS_ITS | Clinical Summary ---
Author Organization [facility] Address [address] [facility] [place] [address] Care Team Providers Care Inpatient Care Manager Rn Name Role Phone Lili Woo MD Primary Care Provider [phone] Active Problems ProblemNoted DateDiagnosed DatePTSD (post-traumatic stress disorder)05/04/2023 Methamphetamine dependence in xpnvaiclf53/02/2023Opioid use kfutnajc00/02/2023 Alcohol dependence in xlhtomqqa82/02/2023Opioid dependence in remission 05/04/2023ttention deficit hyperactivity disorder (ADHD), combined type 05/04/2023 Encounters DateTypeDepartmentCare TxblYqixfvbdfgi67/12/2025Telephone [facility] [address] [place] [address] Goran Hairston LPC 08/06/2025Telephone [facility] [address] [place] [address] Goran Hairston LPC 07/15/2025 11:30 AM EDTSocial Work [facility] [address] [facility] [address] [place] [address] Goran Hairston LPC PTSD (post-traumatic stress disorder); Attention deficit hyperactivity disorder (ADHD), combined type; Opioid dependence in remission (HCC); Alcohol dependence in remission (HCC); Methamphetamine dependence in remission (HCC)07/15/2025amboo flowsheet [facility] [address] [place] [address] Goran Hairston LPC 07/15/2025Travelfrom Last 3 Months Social History Tobacco UseTypesPacks/DayYears UsedDateSmoking Tobacco: Never Assessed CommentsUnknownSex and Gender InformationValueDate RecordedSex Assigned at Not on fileLegal YyjJvybam50/15/2023 6:46 PM EDTGender IdentityNot on fileSexual OrientationNot on file Last Filed Vital Signs Vital SignReadingTime TakenCommentsBlood Viwprxqr242/7611 12:00 PM EST Pulse--Temperature--Respiratory Rate--Oxygen Saturation--Inhaled Oxygen Concentration--Poqruz13.3 kg (199 lb)08/25/2022 12:00 PM KLNGkcpyf726.9 cm (5' 1 )08/25/2022 12:00 PM ESTBody Mass Index37.6110/25/2021 12:00 PM EST Plan of Treatment Health MaintenanceDue DateLast DoneCommentsCT Jcggdfetczxu1973Colonoscopy 1973Colorectal Cancer Daqgusggp1973FIT-DNA1973FIT1973 FOBT1973 3662Uvqhcvsxkxqai1973Pap Smear1994Cervical Cancer Ihgamuhjr56/16/2003HPV/Waetxv9305/18/20037569Okengccel68/16/2013COVID-19 Vaccine ( season)5111/24/2020, 02/16/2021Influenza Vaccine (#1)2025 10/12/2024, 07/13/2022, 07/22/2021, Additional history existsPneumococcal Vaccine: Pediatrics (0 to 5 Years) and At-Risk Patients (6 to 64 Years)Aged Out No longer eligible based on patient's age to complete this topic Insurance Care Teams Team MemberRelationshipSpecialtyStart DateEnd Lili Woo MD [address] [place] [address] PCP - GeneralFamily Ennwbstn46/12/23
--- OUTSIDE RECORDS SUMMARY | 2025-09-01 11:46 | XMS_ITS | Clinical Summary ---
Author Organization [employer] [facility] tem Address [id number] [address] [place] [address] Care Team Providers Care Trains Service Conductor Name Role Phone Stephanie Bowser [employer] WORKER Primary Care Provider Allergies Active AllergyReactionsCriticalityNoted DateComments Sulfamethoxazole-MwkebnveqmrlEptocumqc73/24/2017Sulfamethoxazole-Trimethoprim 03/13/2017Diphenhydramine MrmDjcrzhmhftavEal24/25/2020BuspironeAbnormal Behavior 08/16/2022 Panic attack DlganlrwqwjwvFqwfcicpx20/24/0609Raafotbjhk62/11/4262Gqpdhdmq51/24/2017 seizures Hydroxyzine HclAbnormal Npgktnqj80/25/2020 Medications * This document contains information received from the source organization and may not represent a complete record from that organization. MedicationSigDispense QuantityRefillsLast FilledStart DateEnd DateStatus lisdexamfetamine (VYVANSE) 30 mg capsule Take 1 capsule (30 mg total) by mouth every morning.Active ALPRAZolam (XANAX) 1 mg tablet Take 1 tablet (1 mg total) by mouth.11/16/2023ctive zolpidem (AMBIEN) 5 mg tablet Indications:Insomnia, unspecified typeTake 1 tablet (5 mg total) by mouth nightly as needed for sleep. 30 tablet ctive Additional Information Patient not taking.Reported on 02/20/2025 promethazine (PHENERGAN) 12.5 mg tablet Take 1 tablet (12.5 mg total) by mouth every 6 (six) hours as needed for nausea or vomiting. 12 tablet 10/24/2024Active Additional Information Patient not taking.Reported on 02/20/2025 desvenlafaxine (PRISTIQ) 25 mg 24 hr tablet Take 1 tablet (25 mg total) by mouth in the morning.5Active doxepin (SINEquan) 25 mg capsule Take 1 capsule (25 mg total) by mouth nightly.5Active levothyroxine (SYNTHROID, LEVOTHROID) 75 MCG tablet Indications:Hypothyroidism, unspecified typeTake 1 tablet (75 mcg total) by mouth in the morning. 90 tablet 5Active ferrous sulfate 325 (65 FE) MG tablet Indications:Hx of iron deficiency anemiaTake 1 tablet (325 mg total) by mouth in the morning. 30 tablet 5Active ondansetron ODT (ZOFRAN ODT) 4 mg disintegrating tablet Indications:NauseaDissolve 1 tablet (4 mg total) on tongue every 8 (eight) hours as needed for nausea. 30 tablet 5Active Active Problems ProblemNoted DateDiagnosed KdydIbmysk76/10/2025Neck pain12/18/2024ttention deficit hyperactivity disorder (ADHD), predominantly inattentive type07/26/2024 Methamphetamine dependence in zdogxgxgy47/02/2023lcohol dependence in remission 05/04/2023Opioid dependence in hwxlopddd33/02/0689Ovshmmhapnow27/23/2023Other specified ulotjlfsvpznhb48/15/2022 Assessment & Plan (12/18/2024 11:58 AM EDT): Last TSH from 12/01/24 showed TSH slightly decreased. With levothyroxine 75 mcg take 1 tablet daily except for 1 day per week when hold medication. Will recheck levels in 6-8 weeks Mixed wmnnrejmdcxqat64/15/2022heumatoid awowmctus86/14/2371Hgoqipj40/14/2022 Back pain08/16/2022Major depressive disorder, recurrent, severe without psychotic tijybwsh94/03/2019 Assessment & Plan (12/18/2024 11:57 AM EDT): Symptoms improved since hospitalization. Patient denies any suicidal ideation. Continue with Pristiq 25 mg daily along with other medications. Follow with [facility] for psychiatric care Elevated blood-pressure reading, without diagnosis of bcvetwpbccgf82/26/2019 Depression, auwhfcpnk49/08/0149Ncbupxyl87/27/2017Chronic pain12/13/2014Cervical post-laminectomy mnubvvet40/25/2006Hypertension Resolved Problems ProblemNoted DateDiagnosed DateResolved DateSuicidal ukysmntv15/22/2023 11/29/2022epression with suicidal xsbioogu11 Encounters DateTypeDepartmentCare EshrMfcnbggwwdf04/10/2025Orders Only [facility] [address] [place] [address] [place] [address] Vero Arenas APRN-AUDI Nausea (Primary Dx)07/12/2025Nurse Triage [facility] [address] [place] [id number] Tiny Morrell RN from Last 3 Months Immunizations ImmunizationAdministration DatesNext GofLxyn90/08/2017 Family History Medical HistoryRelationNameCommentsHeart diseaseMaternal GrandfatherNo Known ProblemsMotherHypertensionPaternal GrandfatherObesityPaternal GrandfatherBreast cancerNeg HxOvarian cancerNeg HxRelationNameStatusCommentsMaternal Grandfather MotherPaternal Grandfather Social History Tobacco UseTypesPacks/DayYears UsedDateSmoking Tobacco: Some DaysCigarettes0.520 Started: 05/23/1998; Last attempted to quit: 05/23/2018Smokeless Tobacco: Never Tobacco Cessation:Ready to Q uit: Not Asked; Counseling Given: Not Answered Alcohol UseStandard Drinks/WeekCommentsNot Currently0 (1 standard drink = 0.6 oz pure alcohol)beer and liquourPHQ-2AnswerDate RecordedTotal Mhpvs888 ChildcareAnswerDate EtegroweFzqgfteioNdgppqj53/12/2019EmploymentAnswerDate KzphuxxrGuebvkmffzAurrgre67/12/2019Hunger ScreeningAnswerDate RecordedWithin the past 12 months we worried whether our food would run out before we got money to buy more.Never True12/18/2024Within the past 12 months the food we bought just didn't last and we didn't have money to get more.Never True12/18/2024Purpose - LifeAnswerDate RecordedPurpose and direction in sotbBsevrsm09/11/2021 CommentsNoSex and Gender InformationValueDate RecordedSex Assigned at BirthNot on fileLegal WupSnpjtn80/06/2015 11:39 AM EDTGender IdentityNot on fileSexual OrientationNot on file Last Filed Vital Signs Vital SignReadingTime TakenCommentsBlood Svsyitix757/70002/20/2025 9:11 AM EDT Ywpll380702/20/2025 9:11 AM UKULzgewchyesn83.6 ??C (97.8 ??F)02/20/2025 9:11 AM EDTRespiratory Keub812101/17/2024 11:20 PM EDTOxygen Rvpswxeqnl34%02/20/2025 9:11 AM EDTInhaled Oxygen Concentration--Iwxoxn02.2 kg (181 lb 3.2 oz)02/20/2025 9:11 AM TAJXprrds869.5 cm (5' 2 )02/20/2025 9:11 AM EDTBody Mass Index33.14002/20/2025 9:11 AM EDT Plan of Treatment Health MaintenanceDue DateLast DoneCommentsTobacco Tjumxmoqtm1973Adult BMI Follow Up Plan1991Zoster (Shingles) Vaccine (1 of 2)2023OVID-19 Vaccine ( - 2024- season)/07/2022, 09/23/2021, 02/16/2021 Influenza Rejtjrs40/07/2025, 07/13/2022, 07/22/2021, Additional history existsDepression Jyayjgzcv93dult BMI Screening /Tobacco Vhusuaiim18DTaP,Tdap and Td Vaccines (2 - Td or Tdap) Goals GoalPatient Goal TypeAssociated ProblemsRecent ProgressPatient-Stated?Author safety Naomi Dixon LISW Note: Evaluation of progress towards goal: admitted to hospital Medical Devices Not on file Insurance Advance Directives * Full Code (Latest Code Status on File) Date ActivatedDate InactivatedComments11/25/2022 6:03 PM2 2:53 PM * Full Code Date ActivatedDate HrcpxaptcgcRhjmravo72/14/2022 8:16 PM08/21/2022 6:31 PM * Full Code Date ActivatedDate InactivatedComments02/26/2017 11:10 PM02/28/2017 6:32 PM Care Teams Team MemberRelationshipSpecialtyStart DateEnd Date Stephanie Bowser APRN-AUDI [address] [place] [phone] PCP - GeneralNurse Practitioner12/01/23
[2025-09-01 11:51] LABS: Glucose Urine UA NEGATIVE (NEGATIVE)
[2025-09-01 12:06] LABS: Cast Seen? NONE SEEN #/LPF (NONE SEEN); Crystals Seen? None Seen #/HPF (None Seen)
[2025-09-01 12:07] LABS: Cannabinoid Screen Urine POSITIVE (NEGATIVE); Methamphetamines Screen Urine NEGATIVE (NEGATIVE); Tricyclic Antidepressant Urine POSITIVE (NEGATIVE)
[2025-09-01 12:28] LABS: Anion Gap 11.4; Blood Urea Nitrogen 8.0 mg/dL (7.0-18.0); Calcium 8.9 mg/dL (8.5-10.1); Carbon Dioxide 28.8 mmol/L (21.0-32.0); Chloride 107 mmol/L (98-107); Estimated GFR (African America >60 (>=60 mL/min/1.73m^2); Estimated GFR (Non-African Ame >60 (>=60 mL/min/1.73m^2); Glucose 98 mg/dL (74-106); Potassium 4.2 mmol/L (3.5-5.1); Salicylate <2.8 mg/dL (<=19.9); Sodium 143 mmol/L (136-145)
[2025-09-01 12:31] LABS: Hematocrit 38.2 % (36.0-48.0); Hemoglobin 13.5 g/dL (12.0-16.0); Immature Granulocytes Abs Auto 0.04 10^3/uL (0.00-0.03); Immature Granulocytes Pct Auto 0.6 % (0.0-0.5); Lymphocytes Absolute Auto 1.0 10^3/uL (1.2-3.8); Mean Corpuscular HGB Conc 35.3 g/dL (29.9-35.2); Mean Corpuscular Hemoglobin 33.4 pg (26.7-34.0); Mean Corpuscular Volume 94.6 fL (81.0-99.0); Platelet Count 211 10^3/uL (150-450); Red Blood Count 4.04 10^6/uL (4.20-5.40); White Blood Count 6.5 10^3/uL (4.0-11.0)
[2025-09-01 12:31] LABS: Acetaminophen <2.0 ug/mL (10.0-30.0)
== END 2025-09-01 13:15 | disposition home or self-care (01) ==
PROVIDERS: Emergency Provider Emergency Medicine; PCP Nurse Practitioner Family
DX: F32.A Depression, unspecified (principal); Z91.51 Personal history of suicidal behavior; F17.200 Nicotine dependence, unspecified, uncomplicated
CPT/HCPCS: 36415; 80048; 80179; 80307; 80320; 80329; 81001; 85025; 93005; 99285